=== PATIENT | male | born 1960 | race Caucasian/White ===

== ENCOUNTER 2017-06-05 13:29 | Outpatient (RCR) | payer MEDICARE, SELFPAY ==
[2017-05-29 01:27] VITALS: BP 102/70; PULSE 101; RESP 18; TEMP 35.8
[2017-06-05 14:38] LABS: Absolute Lymphocyte Count 2.67 X10^3/ul (0.83-4.51); Basophil# 0.02 X10^3/uL; Basophil% 0.2 % (0-1); Eosinophil# 0.63 X10^3/uL; Eosinophils% 5.3 % (0-5); Hematocrit 27.7 % (40-54); Lymphocyte # 2.67 X10^3/ul (4.0); Lymphocyte % 22.6 % (19-41); Mean Corp Hgb Conc 32.5 g/gl (32-36); Mean Corpuscular Hgb 25.9 pg (27.0-32.0); Mean Corpuscular Volume 79.6 fL (80-94); Mean Platelet Vol. 8.7 fl (6.2-12.0); Monocyte# 1.45 X10^3/uL; Monocyte% 12.3 % (0-10); Neutrophil # 6.97 X10^3/uL (2.7-7.7); Neutrophil % 59.2 % (47-70); Platelet Count 559 K/mm3 (150-450); RBC Distribution Width CV 17.9 % (11.6-14.6); RBC Distribution Width SD 50.2 fl (35.1-43.9); Red Blood Count 3.48 M/mm3 (4.6-6.2); White Blood Count 11.8 K/mm3 (4.4-11.0)
[2017-06-05 14:39] LABS: POSITIVE COUNT NO; POSITIVE DIFFERENTIAL NO; POSITIVE MORPHOLOGY NO
[2017-06-05 14:48] LABS: ALB/GLOB Ratio 0.4 RATIO (0.9-2.4); AST(SGOT) 69 U/L (15-37); Alanine Aminotransfer ALT/SGPT 79 U/L (12-78); Albumin, Serum 1.9 g/dL (3.4-5.0); Alkaline Phosphatase 149 U/L (45-117); Anion Gap 6 (5-15); BUN 14 mg/dL (7-18); BUN/Creat Ratio 21.9 RATIO (10-20); Calcium,Total 8.5 mg/dL (8.5-10.1); Chloride 108 mmol/L (98-107); Creatinine, Serum 0.64 mg/dL (0.70-1.30); EST Glomerular Filtration Rate 137 mL/min (>60); Est Glom Filt Rate - Afr Amer 166 mL/min (>60); Globulin 5.4 g/dL (2.2-4.2); Glucose 101 mg/dL (70-110); Potassium 3.8 mmol/L (3.5-5.1); Protein, Total 7.3 g/dL (6.4-8.2); Sodium Level 140 mmol/L (136-145)
[2017-06-05 14:49] LABS: Vancomycin, Trough Level 8.5 ug/mL (5.0-15.0)
--- NOTE | 2017-06-07 11:57 | WC ---
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 Currently on I.V. ATB's daily for 6 weeks. Being seen by [facility] ([facility]) daily for wound care. 12:00 Contacted today regarding starting HBO Therapy. Mr. Ruffin mentions having several other appointments prior to considering starting HBO Therapy. [facility]20[facility]17. This speech writer did mention his previous experience when HBO was held-off...his condition deteriorated.. At this time he wishes to hold-off. [facility] called (Amanda) regarding his care. Patient mentioned to them that [facility] (H[facility] Dys[facility]ulation(?)) once his antibiotic therapy is completed. Dr. Almeida and Molded Goods Operator made aware. If HBO therapy is utilized, Pre-Authorization may have to be reapplied for, or dates will require adjusting
== END 2017-06-28 23:59 ==
LOC: WC 13:29
PROVIDERS: Family Provider Family Medicine; PCP Family Medicine; Visit Provider Surgery
DX: M86.68 Other chronic osteomyelitis, other site (principal); M00.9 Pyogenic arthritis, unspecified
CPT/HCPCS: 80053; 80202; 85025

== ENCOUNTER → 2017-06-22 11:50 | Outpatient (CLI) | payer MEDICARE, SELFPAY ==
[2017-06-22 12:57] LABS: Creatinine, Serum 0.72 mg/dL (0.70-1.30); EST Glomerular Filtration Rate 120 mL/min (>60); Est Glom Filt Rate - Afr Amer 145 mL/min (>60)
== END ==
PROVIDERS: Family Provider Family Medicine; PCP Family Medicine
DX: Z79.2 Long term (current) use of antibiotics (principal)
CPT/HCPCS: 80202; 82565

== ENCOUNTER → 2017-06-26 12:16 | Outpatient (CLI) | payer MEDICARE, SELFPAY ==
[2017-06-26 13:40] LABS: Absolute Lymphocyte Count 2.67 X10^3/ul (0.83-4.51); Absolute Neutrophil Count 8.6 X10^3/uL (2.0-7.7); Basophil# 0.04 X10^3/uL; Basophil% 0.3 % (0-1); Eosinophils% 3.8 % (0-5); Hematocrit 30.7 % (40-54); Hemoglobin 9.8 g/dl (13.0-16.5); Lymphocyte # 2.67 X10^3/ul (4.0); Mean Corp Hgb Conc 31.9 g/gl (32-36); Mean Corpuscular Volume 75.2 fL (80-94); Mean Platelet Vol. 9.2 fl (6.2-12.0); Monocyte# 1.41 X10^3/uL; Monocyte% 10.6 % (0-10); Neutrophil # 8.63 X10^3/uL (2.7-7.7); Neutrophil % 64.8 % (47-70); POSITIVE COUNT NO; POSITIVE DIFFERENTIAL NO; POSITIVE MORPHOLOGY NO; Platelet Count 711 K/mm3 (150-450); RBC Distribution Width CV 17.6 % (11.6-14.6); RBC Distribution Width SD 46.5 fl (35.1-43.9); Red Blood Count 4.08 M/mm3 (4.6-6.2); White Blood Count 13.3 K/mm3 (4.4-11.0)
[2017-06-26 13:53] LABS: Vancomycin, Trough Level 11.3 ug/mL (5.0-15.0)
[2017-06-26 13:55] LABS: ALB/GLOB Ratio 0.3 RATIO (0.9-2.4); AST(SGOT) 32 U/L (15-37); Alanine Aminotransfer ALT/SGPT 56 U/L (16-61); Albumin, Serum 1.9 g/dL (3.2-5.0); Alkaline Phosphatase 175 U/L (45-117); Anion Gap 6 (5-15); BUN 11 mg/dL (7-18); BUN/Creat Ratio 16.2 RATIO (10-20); Calcium,Total 8.8 mg/dL (8.5-10.1); Chloride 107 mmol/L (98-107); Creatinine, Serum 0.68 mg/dL (0.70-1.30); EST Glomerular Filtration Rate 128 mL/min (>60); Est Glom Filt Rate - Afr Amer 155 mL/min (>60); Globulin 5.8 g/dL (2.2-4.2); Glucose 104 mg/dL (70-110); Potassium 4.3 mmol/L (3.5-5.1); Protein, Total 7.7 g/dL (6.4-8.2); Sodium Level 139 mmol/L (136-145)
== END ==
PROVIDERS: Visit Provider Surgery
DX: M00.9 Pyogenic arthritis, unspecified (principal); M86.60 Other chronic osteomyelitis, unspecified site; L89.94 Pressure ulcer of unspecified site, stage 4; A41.51 Sepsis due to Escherichia coli [E. coli]
CPT/HCPCS: 80053; 80202; 85025

== ENCOUNTER 2017-07-03 08:08 | Outpatient (RCR) | payer MEDICARE, SELFPAY ==
[2017-05-29 01:27] VITALS: BP 102/70
[2017-06-29 00:49] VITALS: PULSE 101; RESP 18; TEMP 35.8
[2017-07-03 08:12] VITALS: BP 100/74; PULSE 107; RESP 20; TEMP 36.2
--- NOTE | 2017-07-07 20:28 | PN.PCM_ITS ---
Type of Wound Date of Service: 07/03/17 Chief Complaint: Recurrent bilateral ischial pressure sores, Stage IV, with osteomyelitis and sacral pressure sore, Stage IV, and new onset left medial ankle ulcer. History of Wound: Surgery 03/10/17 - 1. Excision right ischial pressure sore, Stage IV, with partial ostectomy for osteomyelitis. 2. Excision left ischial pressure sore, Stage IV, with partial ostectomy for osteomyelitis. Wound care - Dakin's. Operative culture - Soft tissue left ischium - MRSA, Enterococcus faecalis, Corynebacterium amycolatum, Pseudomonas aeroginosa, and Anaerobic cocci. Fungal culture showed Joleen parapsilosis. Soft tissue right ischium - MRSA, Enterococcus faecalis, Corynebacterium striatum, Pseudomonas aeroginosa , Anaerobic cocci. Bone left ischium - MRSA, Enterococcus faecalis, Pseudomonas aeroginosa. Bone right ischium - negative. He was treated with Vancomycin, Zosyn, and Diflucan. He has since finished them. Pathology - positive for bilateral ischial osteomyelitis. Prealbumin from 05/19/17 was 8.7. Encourage nutritional supplementation with protein to help the healing process. He was recently hospitalized in April for sepsis. Blood culture showed E. coli. Based on his previous operative cultures, he was placed on Cefepime, Vancomycin, and Flagyl. CT Pelvis on 05/18/17 showed suprapubic bladder catheter noted and eft-sided colostomy and extensive soft tissue defect of the posterior pelvic region with there appearing to be exposed bone and sclerotic changes of the posterior right ischium which may represent chronic osteomyelitis and 2.5 cm structure anterior to the right femoral neck compatible with small abscess which is new in the interval and subcutaneous stranding with skin thickening lateral to the right hip area consistent with cellulitis. There is no soft tissue gas. Today he denies any fever. His appetite is ok. He also has a new onset left medial ankle ulcer. Progress of Wound: Slightly improved. - Physical Exam Vital Signs Temp Pulse Resp BP 97.1 F L 107 H 20 H 100/74 07/03/17 08:12 07/03/17 08:12 07/03/17 08:12 07/03/17 08:12 Debridement Note Post-Debridement Measurements/Treatment WC - Nurse 2 - General Ulcer CM Notes Start: 07/03/17 08:12 Freq: Status: Active Protocol: Activity Type Activity Date Activity User E-Sign Co-Sign Detail Recorded Client Recorded Date Recorded By Document 07/03/17 09:00 USMAN [id number] 07/03/17 09:10 USMAN 07/03/17 09:00 Wound Center Nurse 2 #14 left medial ankle -Time 09:01 -Correct Patient Yes -Correct Side, Site, Position Yes -Correct Procedure Yes -Procedure Performed Yes -Type of Procedure Debridement -Clinical Debridement Subcutaneous -Post Debridement Size (cm) - Length 2.8 -Post Debridement Size (cm) - Width 2.8 -Post Debridement Size (cm) - Depth 0.2 -Total Square Cm 7.84 -Wound/Ulcer Outcome Not Healed -Ulcer Cleansing Rinsed/ Irrigated with Saline -Foul Odor after Cleansing No -Bioengineered Tissue No -Cetacaine [place] No -Bleeding Controlled with Pressure -Treatment Response Procedure Tolerated Well #13 Sacral -Time 09:01 -Correct Patient Yes -Correct Side, Site, Position Yes -Correct Procedure Yes -Procedure Performed Yes -Type of Procedure Debridement -Clinical Debridement Muscle -Post Debridement Size (cm) - Length 3.8 -Post Debridement Size (cm) - Width 5 -Post Debridement Size (cm) - Depth 1.2 -Total Square Cm 19.0 -Wound/Ulcer Outcome Not Healed -Foul Odor after Cleansing No -Bioengineered Tissue No -Cetacaine [place] No -Bleeding Controlled with Pressure -Treatment Response Procedure Tolerated Well #12 L Buttocks -Time 09:02 -Correct Patient Yes -Correct Side, Site, Position Yes -Correct Procedure Yes -Procedure Performed Yes -Type of Procedure Debridement -Clinical Debridement Muscle -Post Debridement Size (cm) - Length 6.3 -Post Debridement Size (cm) - Width 4.9 -Post Debridement Size (cm) - Depth 1.0 -Total Square Cm 30.87 -Wound/Ulcer Outcome Not Healed -Ulcer Cleansing Rinsed/ Irrigated with Saline -Foul Odor after Cleansing No -Bioengineered Tissue No -Cetacaine [place] No -Bleeding Controlled with Pressure -Treatment Response Procedure Tolerated Well #11 R Buttocks -Time 09:02 -Correct Patient Yes -Correct Side, Site, Position Yes -Correct Procedure Yes -Procedure Performed Yes -Type of Procedure Debridement -Clinical Debridement Muscle -Post Debridement Size (cm) - Length 9 -Post Debridement Size (cm) - Width 16.1 -Post Debridement Size (cm) - Depth 0.8 -Total Square Cm 144.9 -Wound/Ulcer Outcome Not Healed -Ulcer Cleansing Rinsed/ Irrigated with Saline -Foul Odor after Cleansing No -Bioengineered Tissue No -Cetacaine [place] No -Bleeding Controlled with Pressure -Treatment Response Procedure Tolerated Well Pain Scale: 0-10 Numeric Is Patient Pain Free? Yes Wound debrided: #11 Right ischial area. Laterality: Right Wound Grade/Stage: IV. Type of Debridement: Excisional debridement Anesthesia Used: 4% Lidocaine Solution Depth: Down to and including healthy tissue, in the subcutaneous layer, to muscle - bone is exposed but not debrided. Percentage of wound debrided: 100 Instrument Used: 7mm curette Tissue Removed: subcutaneous tissue and muscle. Severity: Fat Layer Exposed - muscle is exposed. bone is exposed but not debrided. Amount of bleeding with debridement: Mild Bleeding Controlled with: Pressure Patient tolerated procedure well - Additional Wound Wound debrided: #12 Left ischial area. Laterality: Left Wound Grade/Stage: IV. Type of Debridement: Excisional debridement Anesthesia Used: 4% Lidocaine Solution Depth: Down to and including healthy tissue, in the subcutaneous layer, to muscle - bone is exposed but not debrided. Percentage of wound debrided: 100 Instrument Used: 7mm curette Tissue Removed: subcutaneous tissue and muscle. Severity: Fat Layer Exposed - muscle is exposed. bone is exposed but not debrided. Amount of bleeding with debridement: Mild Bleeding Controlled with: Pressure Patient tolerated procedure: Patient tolerated procedure well - Additional Wound Wound debrided: #13 Sacral area. Laterality: Not Applicable Wound Grade/Stage: IV. Type of Debridement: Excisional debridement Anesthesia Used: 4% Lidocaine Solution Depth: Down to and including healthy tissue, in the subcutaneous layer, to muscle - bone is exposed but not debrided. Percentage of wound debrided: 100 Instrument Used: 7mm curette Tissue Removed: subcutaneous tissue and muscle. Severity: Fat Layer Exposed - muscle is exposed. bone is exposed but not debrided. Amount of bleeding with debridement: Mild Bleeding Controlled with: Pressure Patient tolerated procedure: Patient tolerated procedure well - Additional Wound Wound debrided: #14 Left medial ankle area. Laterality: Left Wound Grade/Stage: 2. Type of Debridement: Excisional debridement Anesthesia Used: 4% Lidocaine Solution Depth: Down to and including healthy tissue, in the subcutaneous layer Percentage of wound debrided: 100 Instrument Used: 5mm curette Tissue Removed: subcutaneous tissue. Severity: Fat Layer Exposed Amount of bleeding with debridement: Mild Bleeding Controlled with: Pressure Patient tolerated procedure: Patient tolerated procedure well Assessment/Plan Assessment: 1. Recurrent right ischial pressure sore, Stage IV, with extension and involvement of right femoral head. 2. Recurrent left ischial pressure sore , Stage IV. 3. Recurrent sacral pressure sore, Stage IV. 4. Osteomyelitis. 5. MRSA. 6. History of posterior dislocation right hip. 7. Paraplegia. 8. Left medial ankle ulcer. Plan: Continue Dakin's dressing changes to the ulcers. Continue IV Cefepime and Vancomycin and PO Flagyl. Prealbumin from 05/19/17 was 8.7. Encourage nutritional supplementation with protein to help the healing process. He understands that he would be best served at a tertiary center for further definitive surgery. With the large size of his multiple pressure sores and with the need to fill the space left behind from the removal of the femoral head , his only option would be a total thigh flap which would provide enough soft tissue but it necessitates an amputation. Patient states he would rather than have an amputation.. Discussed with him the benefit from HBO treatments for his chronic refractory osteomyelitis. Insurance has approved it. He states he wants to proceed, and that he can arrange transportation. Followup 4 weeks.
== END 2017-07-26 23:59 ==
LOC: WC 08:08
PROVIDERS: Family Provider Family Medicine; PCP Family Medicine; Visit Provider Surgery
DX: L89.154 Pressure ulcer of sacral region, stage 4 (principal); L89.224 Pressure ulcer of left hip, stage 4; L89.214 Pressure ulcer of right hip, stage 4; Z86.14 Personal history of Methicillin resistant Staphylococcus aureus infection; L97.322 Non-pressure chronic ulcer of left ankle with fat layer exposed; G82.20 Paraplegia, unspecified
CPT/HCPCS: 11042; 11043; 11046

== ENCOUNTER → 2017-07-03 14:37 | Outpatient (CLI) | payer MEDICARE, SELFPAY ==
[2017-07-03 08:12] VITALS: BP 100/74
[2017-07-03 16:19] LABS: Absolute Neutrophil Count 9.8 X10^3/uL (2.0-7.7); Basophil# 0.03 X10^3/uL; Basophil% 0.2 % (0-1); Eosinophil# 0.37 X10^3/uL; Eosinophils% 2.5 % (0-5); Hematocrit 34.9 % (40-54); Hemoglobin 10.7 g/dl (13.0-16.5); Lymphocyte % 21.6 % (19-41); Mean Corp Hgb Conc 30.7 g/gl (32-36); Mean Corpuscular Hgb 23.1 pg (27.0-32.0); Mean Corpuscular Volume 75.4 fL (80-94); Monocyte# 1.33 X10^3/uL; Neutrophil # 9.81 X10^3/uL (2.7-7.7); Neutrophil % 66.2 % (47-70); POSITIVE COUNT NO; POSITIVE DIFFERENTIAL NO; POSITIVE MORPHOLOGY NO; Platelet Count 599 K/mm3 (150-450); RBC Distribution Width CV 17.8 % (11.6-14.6); RBC Distribution Width SD 48.8 fl (35.1-43.9); Red Blood Count 4.63 M/mm3 (4.6-6.2); White Blood Count 14.8 K/mm3 (4.4-11.0)
[2017-07-03 16:22] LABS: Vancomycin, Trough Level 13.3 ug/mL (5.0-15.0)
[2017-07-03 16:25] LABS: ALB/GLOB Ratio 0.4 RATIO (0.9-2.4); AST(SGOT) 69 U/L (15-37); Alanine Aminotransfer ALT/SGPT 87 U/L (16-61); Albumin, Serum 2.2 g/dL (3.2-5.0); Alkaline Phosphatase 181 U/L (45-117); Anion Gap 8 (5-15); BUN 15 mg/dL (7-18); BUN/Creat Ratio 19.7 RATIO (10-20); Calcium,Total 8.7 mg/dL (8.5-10.1); Chloride 105 mmol/L (98-107); Creatinine, Serum 0.76 mg/dL (0.70-1.30); EST Glomerular Filtration Rate 113 mL/min (>60); Est Glom Filt Rate - Afr Amer 136 mL/min (>60); Glucose 102 mg/dL (74-106); Potassium 4.2 mmol/L (3.5-5.1); Protein, Total 8.2 g/dL (6.4-8.2); Sodium Level 138 mmol/L (136-145)
== END ==
PROVIDERS: Family Provider Family Medicine; PCP Family Medicine; Visit Provider Surgery
DX: M00.9 Pyogenic arthritis, unspecified (principal); M86.60 Other chronic osteomyelitis, unspecified site; L89.94 Pressure ulcer of unspecified site, stage 4; A41.51 Sepsis due to Escherichia coli [E. coli]
CPT/HCPCS: 80053; 80202; 85025

== ENCOUNTER → 2017-07-07 14:19 | Outpatient (CLI) | payer MEDICARE, SELFPAY ==
[2017-07-03 08:12] VITALS: BP 100/74
[2017-07-07 15:09] LABS: Vancomycin, Trough Level 16.2 ug/mL (5.0-15.0)
== END ==
PROVIDERS: Family Provider Family Medicine; PCP Family Medicine
DX: M00.9 Pyogenic arthritis, unspecified (principal); M86.8X8 Other osteomyelitis, other site; L89.94 Pressure ulcer of unspecified site, stage 4; A41.51 Sepsis due to Escherichia coli [E. coli]
CPT/HCPCS: 80202

== ENCOUNTER 2017-07-10 22:54 | Outpatient (RCR) | payer MEDICARE, SELFPAY ==
[2017-07-10 23:13] LABS: Absolute Lymphocyte Count 2.82 X10^3/ul (0.83-4.51); Absolute Neutrophil Count 7.6 X10^3/uL (2.0-7.7); Basophil# 0.03 X10^3/uL; Basophil% 0.3 % (0-1); Eosinophil# 0.46 X10^3/uL; Eosinophils% 3.9 % (0-5); Hemoglobin 10.3 g/dl (13.0-16.5); Lymphocyte # 2.82 X10^3/ul (4.0); Lymphocyte % 23.9 % (19-41); Mean Corp Hgb Conc 30.3 g/gl (32-36); Mean Corpuscular Hgb 22.9 pg (27.0-32.0); Mean Corpuscular Volume 75.6 fL (80-94); Mean Platelet Vol. 8.9 fl (6.2-12.0); Monocyte# 0.86 X10^3/uL; Monocyte% 7.3 % (0-10); Neutrophil # 7.57 X10^3/uL (2.7-7.7); Neutrophil % 64.2 % (47-70); Platelet Count 598 K/mm3 (150-450); RBC Distribution Width CV 17.9 % (11.6-14.6); White Blood Count 11.8 K/mm3 (4.4-11.0)
[2017-07-10 23:22] LABS: POSITIVE COUNT NO; POSITIVE DIFFERENTIAL NO; POSITIVE MORPHOLOGY NO
== END 2017-07-26 23:59 ==
LOC: LABSPEC 22:54
PROVIDERS: Family Provider Family Medicine; PCP Family Medicine
DX: M00.851 Arthritis due to other bacteria, right hip (principal); M86.60 Other chronic osteomyelitis, unspecified site; L89.90 Pressure ulcer of unspecified site, unspecified stage; A41.51 Sepsis due to Escherichia coli [E. coli]
CPT/HCPCS: 85025

== ENCOUNTER → 2017-07-11 12:09 | Outpatient (CLI) | payer MEDICARE, SELFPAY ==
[2017-07-11 13:32] LABS: Vancomycin, Trough Level 15.9 ug/mL (5.0-15.0)
[2017-07-11 13:59] LABS: ALB/GLOB Ratio 0.3 RATIO (0.9-2.4); AST(SGOT) 39 U/L (15-37); Alanine Aminotransfer ALT/SGPT 72 U/L (16-61); Albumin, Serum 1.7 g/dL (3.2-5.0); Alkaline Phosphatase 183 U/L (45-117); Anion Gap 8 (5-15); BUN 13 mg/dL (7-18); BUN/Creat Ratio 20.5 RATIO (10-20); Calcium,Total 8.5 mg/dL (8.5-10.1); Chloride 105 mmol/L (98-107); Creatinine, Serum 0.64 mg/dL (0.70-1.30); EST Glomerular Filtration Rate 139 mL/min (>60); Est Glom Filt Rate - Afr Amer 168 mL/min (>60); Globulin 5.7 g/dL (2.2-4.2); Glucose 85 mg/dL (74-106); Potassium 4.4 mmol/L (3.5-5.1); Protein, Total 7.4 g/dL (6.4-8.2); Sodium Level 135 mmol/L (136-145)
== END ==
PROVIDERS: Family Provider Family Medicine; PCP Family Medicine
DX: M00.9 Pyogenic arthritis, unspecified (principal); M86.60 Other chronic osteomyelitis, unspecified site; L89.94 Pressure ulcer of unspecified site, stage 4; A41.51 Sepsis due to Escherichia coli [E. coli]
CPT/HCPCS: 80053; 80202

== ENCOUNTER 2019-01-19 17:15 | Inpatient (IN) | payer MEDICARE, SELFPAY ==
[2019-01-19] VITALS (7 sets, daily range): BP systolic 99–140; BP diastolic 69–98; PULSE 101–121; RESP 18–22; TEMP 36.8–38; O2SAT 93–98; BMI 25.2; BMI 23.3
--- NOTE | 2019-01-19 17:24 | RAD_ITS ---
STUDY: X-RAY CHEST REASON FOR EXAM: Male, 58 years old. Weakness TECHNIQUE: Frontal view of the chest was performed COMPARISON: 17 May 2017 FINDINGS: Lungs are clear. There is no pneumothorax, pulmonary edema, pleural effusions or cardiomegaly. Osseous structures are intact. There is no gas under the diaphragms. [ ] RAD/Chest 1 View (Portable) IMPRESSION: 1. No acute cardiorespiratory disease. [ ] Electronically Signed: Marly Phelan, at 18:06 EDT Tel , Service support ,
--- NOTE | 2019-01-19 17:24 | EKG12_ITS ---
Test Reason : WEAKNESS Blood Pressure : / mmHG Vent. Rate : 121 BPM Atrial Rate : 121 BPM P-R Int : 164 ms QRS Dur : 090 ms QT Int : 300 ms P-R-T Axes : 055 077 054 degrees QTc Int : 426 ms Sinus tachycardia T wave abnormality, consider inferolateral ischemia Abnormal ECG Confirmed by JUAN MARR, BRUCE ([id number]), staff editor AURORA FOURNIER ([id number]) on 01/21/2019 11:34:16 AM Referred By: PRINCESS Confirmed By:BRUCE MARTINEZ MD
--- NOTE | 2019-01-19 17:26 | ED.DCSUM_ITS ---
History of Present Illness Chief Complaint: Weakness Informant: Patient, Family, Kitchen Helper Onset: Yesterday Context: Gradual Onset Timing: Continuous Quality: malaise Location: generalized Current Severity: Severe Maximum Severity: Severe Associated Symptoms: subj fever Narrative: Patient is a bedridden paraplegic with an indwelling Lima catheter. Urine has looked dark today, he has had poor oral intake all day today, but he was drinking overnight. He is felt very malaised and flushed with subjective fevers since yesterday. Home health nurse was called to evaluate him, and since he was tachycardic she recommended that they call 911 to bring him to the ER. He has nausea and malaise and no other focal symptoms. Patient states he had a spinal injury and because of transverse myelitis, he is a paraplegic for life. He states his sensory level is more below his bellybutton. He denies any cough or shortness of breath, no headache or loss of consciousness, no chest or abdominal pain. Significant other helps to provide history but states I have not been home all weekend. She does state that at the [place] for routine visit this past week, he incidentally had high red and white blood count. - Past Medical History (1) Benign essential hypertension Status: Chronic (2) Neurogenic bladder Status: Chronic (3) Paraplegia Status: Chronic (4) Transverse myelitis Status: Chronic Past Medical History - Allergies and Home Meds Allergies/Adverse Reactions: Allergies No Known Allergies Allergy (Verified 01/19/19 18:23) Primary Care Physician: [facility] [Primary Care Provider] - Surgical History: - - Appendectomy, colostomy, right heel debridement, skin flap and skin graft to buttock, most recent 02/2017 Excision right ischial pressure sore, Stage IV, with partial ostectomy for osteomyelitis, Excision left ischial pressure sore, Stage IV, with partial ostectomy for osteomyelitis. Lives: Spouse/ Significant Other Smoking Status: Current every day smoker Drugs: None - Family History Paternal Family History: Reports: No pertinent history Maternal Family History: Reports: No pertinent history Review of Systems General: Reports: Fever, Malaise, Subjective. Denies: Chills, Sweats Eyes: Denies: Visual changes - bilaterally, Diplopia ENT: Denies: Bilateral ear pain, Rhinorrhea, Sore throat Cardiovascular: Denies: Chest pain, Palpitations Respiratory: Denies: Dyspnea, Cough, Dyspnea on exertion Gastrointestinal: Reports: Nausea. Denies: Abdominal pain, Vomiting, Diarrhea, Melena, Hematochezia Genitourinary: Reports: - - Dark urine output in indwelling Lima. Denies: Dysuria, Hematuria, Frequency Musculoskeletal: Denies: Neck pain, Back pain, Extremity Pain Skin: Denies: Rash, Wounds Neurological: Reports: Weakness - Bilateral lower extremities, chronic paraplegia, Numbness - Bilateral lower extremities, chronic. Denies: Headache Physical Exam Vital Signs/Narrative: Vital Signs Temp Pulse Resp BP Pulse Ox 01/19/19 17:16 100.4 F H 121 H 20 H 131/98 H 96 Inital Vital Signs reviewed: Yes General: Well nourished, Well developed, No Acute Distress - Appears malaised but alert Head: Normocephalic, Atraumatic Eyes: Perrl, EOMI ENT: No rhinorrhea, Dry mucous membranes. Negative for: Sinus tenderness Neck: Supple - Full range of motion, no meningismus, Nontender Cardiovascular: Regular rate, Regular rhythm, No murmurs, Tachycardia Respiratory: No distress, CTA bilaterally, Chest nontender Abdomen: Soft, Nontender, Nondistended, Normal bowel sounds : - - Cloudy yellow urine in Lima. Well-healed sacral decubitus ulcer, there is 1 very small part of it that appears to be ulcerated and there is no sign of any infection. There is a dressing on it dated 01/11. Back: Nontender, Normal Inspection Extremities: Edema - 1+ bilateral lower extremity, symmetric, no signs of cellulitis or ulcer, - - Well-healed scarred old ulcerations on his heels without any sign of any acute infection or ulceration. Skin: Normal color, No rash, No Trauma Neurological: Alert, Oriented x3, Cranial nerves II-XII grossly intact, Weakness - Flaccid paraplegia and decreased sensation in both lower extremities Psychological: Normal affect, Normal Mood Diagnostic/Tx/Re-eval Impressions Chest X-Ray 01/19/19 17:24 IMPRESSION: 1. No acute cardiorespiratory disease. [ ] Electronically Signed: Marly Phelan, at 18:06 EDT Tel , Service support , 01/19/19 17:24 Chest 1 View (Portable) [RAD] Stat Laboratory Results 01/19/19 01/19/19 01/19/19 17:50 17:50 17:50 WBC 25.8 H RBC 6.20 Hgb 17.9 H Hct 53.5 MCV 86.3 MCH 28.9 MCHC 33.5 RDW Std Deviation 51.5 H RDW Coeff of Bhanu 17.9 H Plt Count 315 MPV 9.4 Immature Gran % (Auto) 0.500 Neut % (Auto) 87.3 H Lymph % (Auto) 5.5 L Power % (Auto) 6.4 Eos % (Auto) 0.0 Baso % (Auto) 0.3 Absolute Neuts (auto) 22.5 H Absolute Lymphs (auto) 1.43 Nucleated RBC % 0 Differential Comment SCANNED Diff Path Review May foll Platelet Estimate ADEQUATE RBC Morphology NORM C+C PT 14.7 INR 1.2 APTT 49.0 H Sodium 139 Potassium 3.9 Chloride 107 Carbon Dioxide 24.0 Anion Gap 8 BUN 14 Creatinine 0.92 Estim Creat Clear Calc 85.71 Est GFR (MDRD) Af Amer 109 Est GFR (MDRD) Non-Af 90 BUN/Creatinine Ratio 15.2 Glucose 117 H Lactic Acid Calcium 9.1 Total Bilirubin 0.60 AST 18 ALT 28 Alkaline Phosphatase 189 H Total Protein 8.3 H Albumin 3.1 L Globulin 5.2 H Albumin/Globulin Ratio 0.6 L Urine Color Urine Clarity Urine pH Ur Specific Hyden Urine Protein Urine Glucose (UA) Urine Ketones Urine Occult Blood Urine Nitrite Urine Bilirubin Urine Urobilinogen Ur Leukocyte Esterase Urine RBC Urine WBC Ur Squamous Epith Cells Calcium Oxalate Crystal Triple Phos Crystals Amorphous Sediment Urine Bacteria Urine Mucus 01/19/19 01/19/19 17:50 18:00 WBC RBC Hgb Hct MCV MCH MCHC RDW Std Deviation RDW Coeff of Bhanu Plt Count MPV Immature Gran % (Auto) Neut % (Auto) Lymph % (Auto) Power % (Auto) Eos % (Auto) Baso % (Auto) Absolute Neuts (auto) Absolute Lymphs (auto) Nucleated RBC % Differential Comment Diff Path Review Platelet Estimate RBC Morphology PT INR APTT Sodium Potassium Chloride Carbon Dioxide Anion Gap BUN Creatinine Estim Creat Clear Calc Est GFR (MDRD) Af Amer Est GFR (MDRD) Non-Af BUN/Creatinine Ratio Glucose Lactic Acid 0.9 Calcium Total Bilirubin AST ALT Alkaline Phosphatase Total Protein Albumin Globulin Albumin/Globulin Ratio Urine Color Yellow Urine Clarity Cloudy Urine pH 9.0 Ur Specific [place]den 1.015 Urine Protein 100 H Urine Glucose (UA) Normal Urine Ketones 5 H Urine Occult Blood 150 H Urine Nitrite Positive H Urine Bilirubin Negative Urine Urobilinogen Normal Ur Leukocyte Esterase 500 H Urine RBC 10-25 SEEN Urine WBC 25-50 SEEN Ur Squamous Epith Cells 5-10 SEEN Calcium Oxalate Crystal RARE Triple Phos Crystals 1+ Amorphous Sediment 1+ PHOS Urine Bacteria 1+ Urine Mucus 0 SEEN - Rhythm Strip Rhythm Strip: Sinus Tach Rate: 120 Ectopy: None - EKG Initial EKG Interpretation: No Acute Injury Pattern, Sinus Tachycardia, Non-Specific ST Changes - diffusely - Medical Decision Making Patient was bolused with IV fluids, blood and urine cultures were sent, he seems to have a urinary tract infection a significant leukocytosis and luckily his lactate is within normal limits. He is septic from urinary tract infection, Rocephin is started. Plan is for admission to the hospital. His heart rate has improved with IV fluids. Patient is alert and states he is relatively comfortable. ED Disposition - Plan for ED Patient: Disposition: Acute Care Hospital [facility] Diagnosis: Sepsis due to urinary tract infection, Paraplegia [facility] [Primary Care Provider] -
[2019-01-19] MEDS: 0.9% Normal Saline 1,000 ML 999 ML IV (18:12)
[2019-01-19] MEDS: Acetaminophen 500 MG Tablet 1000 MG PO (18:16)
[2019-01-19 18:17] LABS: Mucous, Urine 0 SEEN /hpf (<or=2+)
[2019-01-19 18:22] LABS: Absolute Lymphocyte Count 1.43 X10^3/uL (0.83-4.51); Absolute Neutrophil Count 22.5 X10^3/uL (2.0-7.7); Basophil# 0.09 X10^3/uL; Basophil% 0.3 % (0-1); Eosinophil# 0.01 X10^3/uL; Hematocrit 53.5 % (40-54); Hemoglobin 17.9 g/dL (13.0-16.5); Lymphocyte # 1.43 X10^3/ul (4.0); Lymphocyte % 5.5 % (19-41); Mean Corp Hgb Conc 33.5 g/dL (32-36); Mean Corpuscular Hgb 28.9 pg (27.0-32.0); Mean Corpuscular Volume 86.3 fL (80-94); Mean Platelet Vol. 9.4 fl (6.2-12.0); Monocyte# 1.66 X10^3/uL; Monocyte% 6.4 % (0-10); NRBC Flagged by Analyzer 0 % (0-5); Neutrophil % 87.3 % (47-70); POSITIVE DIFFERENTIAL YES; Platelet Count 315 K/mm3 (150-450); RBC Distribution Width CV 17.9 % (11.6-14.6); RBC Distribution Width SD 51.5 fl (35.1-43.9); White Blood Count 25.8 K/mm3 (4.4-11.0)
[2019-01-19 18:32] LABS: Color, Urine Yellow (Yellow); Glucose, Dipstick Normal (Normal); Ketone-Dipstick 5 mg/dl (Negative); Leukocyte Esterase-Dipstick 500 /ul (Negative); Nitrite-Dipstick Positive (Negative); Occult Blood-Urine 150 /ul (Negative); Protein-Dipstick 100 mg/dl (Negative); Specific Gravity, Urine 1.015 (1.002-1.030); Urine Bilirubin Dipstick Negative (Negative); Urine Clarity Cloudy (Clear); Urine Urobilinogen Normal (Normal)
[2019-01-19 18:38] LABS: Differential Indicated SCAN CRITERIA MET
[2019-01-19 18:39] LABS: ALB/GLOB Ratio 0.6 RATIO (0.9-2.4); AST(SGOT) 18 U/L (15-37); Alanine Aminotransfer ALT/SGPT 28 U/L (16-61); Albumin, Serum 3.1 g/dL (3.2-5.0); Alkaline Phosphatase 189 U/L (45-117); Anion Gap 8 (5-15); BUN 14 mg/dL (7-18); BUN/Creat Ratio 15.2 RATIO (10-20); Calcium,Total 9.1 mg/dL (8.5-10.1); Chloride 107 mmol/L (98-107); Creatinine, Serum 0.92 mg/dL (0.70-1.30); EST Glomerular Filtration Rate 90 mL/min (>60); Est Glom Filt Rate - Afr Amer 109 mL/min (>60); Estimated Creatinine Clearance 85.71 ml/min; Globulin 5.2 g/dL (2.2-4.2); Glucose 117 mg/dL (74-106); Potassium 3.9 mmol/L (3.5-5.1); Protein, Total 8.3 g/dL (6.4-8.2); Sodium Level 139 mmol/L (136-145)
[2019-01-19 18:45] LABS: International Normalized Ratio 1.2; Prothrombin Time (Protime)PT. 14.7 SECONDS (11.7-14.9)
[2019-01-19 18:56] LABS: Red Blood Cells-Urine 10-25 SEEN /hpf (0-5); Squamous Epithelial Cells - UA 5-10 SEEN /hpf (0-5); White Blood Cells 25-50 SEEN /hpf (0-5)
[2019-01-19 18:57] LABS: Amorphous Sediment 1+ PHOS; Bacteria 1+ /hpf (None Seen); Calcium Oxalate Crystals Ur RARE /hpf (<or=2+); Triple Phosphate Crystals Ur 1+ /hpf (<or=1+)
[2019-01-19 19:02] LABS: Lactic Acid 0.9 mmol/L (0.4-2.0)
[2019-01-19] MEDS: Ceftriaxone 1 GM/50 ML BAG IV (19:21)
[2019-01-19 19:22] LABS: Differential Comment SCANNED; Platelet Estimate ADEQUATE (ADEQ); Red Cell Morphology NORM C+C NORMAL (NORM C&C)
--- NOTE | 2019-01-19 19:58 | HP.PCM_ITS ---
Problem List (1) Sepsis due to urinary tract infection Status: Acute (2) Paraplegia Status: Chronic (3) Neurogenic bladder Status: Chronic (4) Transverse myelitis Status: Chronic (5) Pressure ulcer of ischium, stage 2 Status: Chronic Qualifiers: Laterality: right Qualified Code(s): L89.312 - Pressure ulcer of right buttock, stage 2 (6) Sacral ulcer Status: Chronic (7) Pressure ulcer of right hip, stage 1 Status: Chronic History of Present Illness Date of Admission: 01/19/19 Chief Complaint: malaise The patient is a 58 year old M with a significant history of paraplegia from T4 down was secondary to transverse myelitis; neurogenic bladder with indwelling catheter; colostomy secondary to paraplegia; pressure ulcers on the sacrum and heel who presented to the emergency department with malaise that started a day before his presentation. Associated with his symptoms is subjective fever and chills. The urine in his Lima catheter looked darker. Because home health nurse realized that the patient had a tachycardia patient was brought to emergency department. At the emergency department patient was noted to have objective fever; tachycardia and tachypnea as well as leukocytosis. Blood cultures and urine cultures were drawn and patient was started on ceftriaxone. Past Medical History Past Medical History (Chronic Problems): Chronic Problems Paraplegia (Chronic) Neurogenic bladder (Chronic) Transverse myelitis (Chronic) Pressure ulcer of ischium, stage 2 (Chronic) Pressure ulcer of right hip, stage 1 (Chronic) Sacral ulcer (Chronic) Benign essential hypertension (Chronic) Colostomy in place (Chronic) Allergies No Known Allergies Allergy (Verified 01/19/19 18:23) Home Medications: Ambulatory Orders Medication Instructions Recorded Baclofen [Lioresal] 20 mg PO TID 02/26/13 Multivitamins,Therapeutic 1 tab PO LUNCH 02/26/13 [Multivitamin] Gabapentin [Neurontin] 900 mg PO TID 04/19/13 Ascorbic Acid [Vitamin C] 1,000 mg PO TID 01/19/19 Doxycycline Monohydrate 100 mg PO BID 01/19/19 Nortriptyline HCl [Pamelor] 100 mg PO QHS 01/19/19 Surgical History: - - Appendectomy, colostomy, right heel debridement, skin flap and skin graft to buttock, most recent 02/2017 Excision right ischial pressure sore, Stage IV, with partial ostectomy for osteomyelitis, Excision left ischial pressure sore, Stage IV, with partial ostectomy for osteomyelitis. Psychiatric History: Depression Lives: Spouse/ Significant Other Smoking Status: Current every day smoker Drugs: None - *Family History Paternal History Items: - - Denies any maternal medical history Maternal History Items: Heart Disease - His father had heart attack, Stroke Review of Systems Constitutional: Reports: Chills, Fever, Malaise. Denies: Weight Change HEENT: Denies: Head Aches, Sinus Congestion, Sinus Drainage Cardiovascular: Denies: Chest Pain, Palpitations Respiratory: Denies: Cough, Shortness of breath at rest, Sputum production Gastrointestinal: Denies: Abdominal Pain, Nausea, Vomiting Genitourinary: Reports: - - Chronic Lima catheter Musculoskeletal: Denies: Joint Pain, Joint Tenderness Skin: Reports: Wounds - Bilateral buttocks cheeks. Denies: Rash Neurological: Denies: Numbness, Tingling, Focal weakness Psychiatric: Denies: Anxiety, Depression, Homicidal Ideations, Suicidal Ideations Hematologic/ Lymphatic: Denies: Easy Bruising, Easy Bleeding VTE Information - Inpt Only VTE Present on Admission: No VTE Mechan Device Prophylaxis: None VTE Pharm Prophylaxis ordered?: Yes Patient Problems: Active and Suspected Problems Sepsis due to urinary tract infection (Acute) - Physical Exam General: Alert, Oriented x3, Cooperative HEENT: Atraumatic, PERRLA, EOMI, Normocephalic Neck: Supple, No JVD, Negative Carotid Bruits Lungs: Clear to auscultation, Normal air movement, Tachypneic Cardiovascular: No murmurs, Tachycardic, - - Colostomy in place. Suprapubic catheter in place Abdomen: Bowel Sounds Present, Soft, Non Tender Extremities: No edema, Capillary Refill Less than 3 Seconds Skin: - - Redness on the bottom. Chronic wounds on buttocks x2; one on each side of buttocks cheek. Deformity to buttocks. Musculoskeletal: No Tenderness to Palpation of Joints or Extremities Neurological: Cranial nerves II-XII grossly intact, - - Paraplegia from T4 and down inability to move bilateral lower extremities. Psych/Mental Status: Normal Affect, Appropriate Vital Signs Temp Pulse Resp BP Pulse Ox 98.2 F 114 H 22 H 118/81 H 96 01/19/19 19:20 01/19/19 19:18 01/19/19 19:18 01/19/19 19:18 01/19/19 19:18 Oxygen Delivery Method Room Air Weight: 75.5 kg Body Mass Index (BMI) 25.2 Intake and Output for Last 24 Hours 01/17/19 01/18/19 01/19/19 23:59 23:59 23:59 Intake Total 1000 / 1000 Balance 1000 / 1000 Laboratory Tests Past 24 Hrs 01/19/19 01/19/19 01/19/19 17:50 17:50 17:50 WBC 25.8 H RBC 6.20 Hgb 17.9 H Hct 53.5 MCV 86.3 MCH 28.9 MCHC 33.5 RDW Std Deviation 51.5 H RDW Coeff of Bhanu 17.9 H Plt Count 315 MPV 9.4 Immature Gran % (Auto) 0.500 Neut % (Auto) 87.3 H Lymph % (Auto) 5.5 L [place] % (Auto) 6.4 Eos % (Auto) 0.0 Baso % (Auto) 0.3 Absolute Neuts (auto) 22.5 H Absolute Lymphs (auto) 1.43 Nucleated RBC % 0 Differential Comment SCANNED Diff Path Review May foll Platelet Estimate ADEQUATE RBC Morphology NORM C+C PT 14.7 INR 1.2 APTT 49.0 H Sodium 139 Potassium 3.9 Chloride 107 Carbon Dioxide 24.0 Anion Gap 8 BUN 14 Creatinine 0.92 Estim Creat Clear Calc 85.71 Est GFR (MDRD) Af Amer 109 Est GFR (MDRD) Non-Af 90 BUN/Creatinine Ratio 15.2 Glucose 117 H Lactic Acid Calcium 9.1 Total Bilirubin 0.60 AST 18 ALT 28 Alkaline Phosphatase 189 H Total Protein 8.3 H Albumin 3.1 L Globulin 5.2 H Albumin/Globulin Ratio 0.6 L Urine Color Urine Clarity Urine pH Ur Specific [place] Urine Protein Urine Glucose (UA) Urine Ketones Urine Occult Blood Urine Nitrite Urine Bilirubin Urine Urobilinogen Ur Leukocyte Esterase Urine RBC Urine WBC Ur Squamous Epith Cells Calcium Oxalate Crystal Triple Phos Crystals Amorphous Sediment Urine Bacteria Urine Mucus 01/19/19 01/19/19 17:50 18:00 WBC RBC Hgb Hct MCV MCH MCHC RDW Std Deviation RDW Coeff of Bhanu Plt Count MPV Immature Gran % (Auto) Neut % (Auto) Lymph % (Auto) [place] % (Auto) Eos % (Auto) Baso % (Auto) Absolute Neuts (auto) Absolute Lymphs (auto) Nucleated RBC % Differential Comment Diff Path Review Platelet Estimate RBC Morphology PT INR APTT Sodium Potassium Chloride Carbon Dioxide Anion Gap BUN Creatinine Estim Creat Clear Calc Est GFR (MDRD) Af Amer Est GFR (MDRD) Non-Af BUN/Creatinine Ratio Glucose Lactic Acid 0.9 Calcium Total Bilirubin AST ALT Alkaline Phosphatase Total Protein Albumin Globulin Albumin/Globulin Ratio Urine Color Yellow Urine Clarity Cloudy Urine pH 9.0 Ur Specific [place] 1.015 Urine Protein 100 H Urine Glucose (UA) Normal Urine Ketones 5 H Urine Occult Blood 150 H Urine Nitrite Positive H Urine Bilirubin Negative Urine Urobilinogen Normal Ur Leukocyte Esterase 500 H Urine RBC 10-25 SEEN Urine WBC 25-50 SEEN Ur Squamous Epith Cells 5-10 SEEN Calcium Oxalate Crystal RARE Triple Phos Crystals 1+ Amorphous Sediment 1+ PHOS Urine Bacteria 1+ Urine Mucus 0 SEEN Assessment/Plan All Active Problems Sepsis due to urinary tract infection (Acute) Fever (Acute) Obstruction of Lima catheter (Resolved) Hematuria (Resolved) Continuous chronic alcoholism (Resolved) Right ischial pressure sore, stage 4 (Resolved) Transverse myelitis (Resolved) Ulcer of heel (Resolved) malnutrition, mild (Resolved) osteomyelitis rt heel, acute and chronic (Resolved) The patient is a 58 year old M with a significant history of paraplegia from T4 down was secondary to transverse myelitis; neurogenic bladder with indwelling catheter; pressure ulcers on the sacrum and heel who presented to the emergency department with malaise; subjective fever and chills; dark urine; tachycardia and found to have fever; tachycardia; tachypnea on presentation and also with abnormal urinalysis and leukocytosis consistent with sepsis secondary to probable UTI. Sepsis secondary to UTI in the setting of chronic indwelling Lima. Patient meets sirs criteria of tachycardia; tachypnea; fever and leukocytosis. Probable source of infection is UTI chronic Lima. Received ceftriaxone at the emergency department we will continue ceftriaxone. He received Tylenol for fever. Tylenol as needed ordered. Lactic acid was unremarkable. Received IV bolus in the emergency department. We will continue patient on IV maintenance infusion. Follow urine culture and blood culture follow urine culture and blood culture Pressure ulcers/colostomy Wound care consult. Maintain patient on current home dressing to further recommendation from wound care. Leave home foam boot on left foot. Transverse Myelitis Baclofen and Neurontin continued. Home Oxycodone continued Tobacco abuse Counseled Nicotine patch ordered. Chronic osteomyelitis Doxycycline continued. DVT Prophylaxis Subcutaneous Lovenox. Code Visit Inpatient E&M: 66234 Init Hosp L3
[2019-01-19] MEDS: 0.9% Normal Saline 1,000 ML 75 ML IV (22:20)
[2019-01-19] MEDS: 0.9% NaCl Peripheral Flush Adult/Peds IV (22:30)
[2019-01-20] MEDS: Baclofen 10 MG Tablet 20 MG PO ×4 (00:07→21:18)
[2019-01-20] MEDS: Ondansetron 4 MG/2 ML Vial IV (00:09)
[2019-01-20] MEDS: Nortriptyline 25 MG Capsule 100 MG PO ×2 (00:47→21:19)
[2019-01-20 02:15] VITALS: TEMP 37.6
[2019-01-20 05:00] VITALS: BP 125/80; PULSE 104; RESP 20; TEMP 36.9; O2SAT 93
[2019-01-20] MEDS: Gabapentin 300 MG Capsule 900 MG PO ×3 (06:32→16:53)
[2019-01-20 06:33] LABS: Absolute Lymphocyte Count 1.63 X10^3/uL (0.83-4.51); Absolute Neutrophil Count 14.7 X10^3/uL (2.0-7.7); Basophil# 0.05 X10^3/uL; Basophil% 0.3 % (0-1); Hematocrit 46.7 % (40-54); Hemoglobin 15.6 g/dL (13.0-16.5); Lymphocyte # 1.63 X10^3/ul (4.0); Lymphocyte % 9.3 % (19-41); Mean Corp Hgb Conc 33.4 g/dL (32-36); Mean Corpuscular Hgb 29.2 pg (27.0-32.0); Mean Corpuscular Volume 87.3 fL (80-94); Mean Platelet Vol. 9.5 fl (6.2-12.0); Monocyte# 1.14 X10^3/uL; Monocyte% 6.5 % (0-10); NRBC Flagged by Analyzer 0 % (0-5); Neutrophil # 14.66 X10^3/uL (2.7-7.7); Neutrophil % 83.5 % (47-70); Platelet Count 269 K/mm3 (150-450); RBC Distribution Width SD 52.9 fl (35.1-43.9); Red Blood Count 5.35 M/mm3 (4.6-6.2); White Blood Count 17.6 K/mm3 (4.4-11.0)
[2019-01-20] MEDS: Ascorbic Acid 500 MG Tablet 1000 MG PO ×2 (06:49→13:57)
[2019-01-20 06:55] LABS: Anion Gap 7 (5-15); BUN 14 mg/dL (7-18); BUN/Creat Ratio 18.2 RATIO (10-20); Calcium,Total 8.2 mg/dL (8.5-10.1); Chloride 108 mmol/L (98-107); Creatinine, Serum 0.77 mg/dL (0.70-1.30); EST Glomerular Filtration Rate 110 mL/min (>60); Est Glom Filt Rate - Afr Amer 134 mL/min (>60); Estimated Creatinine Clearance 105.85 ml/min; Glucose 101 mg/dL (74-106); Potassium 3.6 mmol/L (3.5-5.1); Sodium Level 138 mmol/L (136-145)
[2019-01-20 08:40] VITALS: BP 107/87; PULSE 105; RESP 16; TEMP 37; O2SAT 94
[2019-01-20] MEDS: Doxycycline 100 MG CAPSULE PO ×2 (08:41→21:18)
[2019-01-20] MEDS: Multivitamins,Therapeutic Tablet 1 TABLET PO (08:45)
[2019-01-20] MEDS: Ceftriaxone 1 GM/50 ML BAG IV ×2 (10:13→21:17)
[2019-01-20] MEDS: 0.9% Normal Saline 1,000 ML 100 ML IV ×2 (10:13→21:17)
[2019-01-20] MEDS: Enoxaparin 40 MG/0.4 ML Syringe SC (10:14)
[2019-01-20 11:20] VITALS: O2SAT 93
[2019-01-20 14:00] VITALS: BP 133/82; PULSE 99; RESP 16; TEMP 37.3; O2SAT 98
--- NOTE | 2019-01-20 17:59 | PN_ITS ---
Patient Problems: Active and Suspected Problems Sepsis due to urinary tract infection (Acute) Subjective: Patient was seen and examined today, his white blood cell count has decreased today, he appears medically stable at this time, I briefly entertained changing his antibiotic coverage due to the results of his past urine cultures but since he is appearing to stabilize currently on Rocephin, I elected to keep him on Rocephin for the time being until the urine culture results return. - Physical Exam General: Alert, Oriented x3, Cooperative, No apparent distress, Well developed HEENT: Atraumatic, PERRLA, EOMI, Normocephalic Oral: Moist Mucosa Neck: Supple, No Nuchal Rigidity, Trachea Midline, Thyroid Normal Size and Texture Lungs: Clear to auscultation, Normal air movement, No rhonchi, No wheeze, No rales Cardiovascular: Regular rate, Regular Rhythm, Normal S1, Normal S2, No murmurs, No Ectopic Activity Abdomen: Bowel Sounds Present, Soft, Non Tender, Non-Distended, - - Colostomy present Extremities: No clubbing, No cyanosis, Capillary Refill Less than 3 Seconds Skin: - - Evidence of healed pressure injuries are noted of the patient's buttocks and iliac areas Neurological: Cranial nerves II-XII grossly intact, - - Patient has paraplegia Psych/Mental Status: Normal Affect, Appropriate, Alert and oriented to time, place, person, mood and affect Vital Signs Temp Pulse Resp BP Pulse Ox 99.1 F 99 16 133/82 H 98 01/20/19 14:00 01/20/19 14:00 01/20/19 14:00 01/20/19 14:00 01/20/19 14:00 Oxygen Delivery Method Room Air Weight: 71.7 kg Body Mass Index (BMI) 23.3 Intake and Output for Last 24 Hours 01/18/19 01/19/19 01/20/19 23:59 23:59 23:59 Intake Total 1373.75 / 1373.75 1257.92 / 1257.92 Output Total 175 / 175 650 / 650 Balance 1198.75 / 1198.75 607.92 / 607.92 Microbiology Past 72 Hours 01/19/19 18:00 Urine Culture - Preliminary Urine Catheter - Lima Gram negative yelena Laboratory Tests Past 24 Hrs 01/19/19 01/19/19 01/19/19 17:50 17:50 17:50 WBC 25.8 H RBC 6.20 Hgb 17.9 H Hct 53.5 MCV 86.3 MCH 28.9 MCHC 33.5 RDW Std Deviation 51.5 H RDW Coeff of Bhanu 17.9 H Plt Count 315 MPV 9.4 Immature Gran % (Auto) 0.500 Neut % (Auto) 87.3 H Lymph % (Auto) 5.5 L [place] % (Auto) 6.4 Eos % (Auto) 0.0 Baso % (Auto) 0.3 Absolute Neuts (auto) 22.5 H Absolute Lymphs (auto) 1.43 Nucleated RBC % 0 Differential Comment SCANNED Diff Path Review May foll Platelet Estimate ADEQUATE RBC Morphology NORM C+C PT 14.7 INR 1.2 APTT 49.0 H Sodium 139 Potassium 3.9 Chloride 107 Carbon Dioxide 24.0 Anion Gap 8 BUN 14 Creatinine 0.92 Estim Creat Clear Calc 85.71 Est GFR (MDRD) Af Amer 109 Est GFR (MDRD) Non-Af 90 BUN/Creatinine Ratio 15.2 Glucose 117 H Lactic Acid Calcium 9.1 Total Bilirubin 0.60 AST 18 ALT 28 Alkaline Phosphatase 189 H Total Protein 8.3 H Albumin 3.1 L Globulin 5.2 H Albumin/Globulin Ratio 0.6 L Urine Color Urine Clarity Urine pH Ur Specific [place] Urine Protein Urine Glucose (UA) Urine Ketones Urine Occult Blood Urine Nitrite Urine Bilirubin Urine Urobilinogen Ur Leukocyte Esterase Urine RBC Urine WBC Ur Squamous Epith Cells Calcium Oxalate Crystal Triple Phos Crystals Amorphous Sediment Urine Bacteria Urine Mucus 01/19/19 01/19/19 01/20/19 17:50 18:00 05:45 WBC 17.6 H RBC 5.35 Hgb 15.6 Hct 46.7 MCV 87.3 MCH 29.2 MCHC 33.4 RDW Std Deviation 52.9 H RDW Coeff of Bhanu 17.0 H Plt Count 269 MPV 9.5 Immature Gran % (Auto) 0.400 Neut % (Auto) 83.5 H Lymph % (Auto) 9.3 L [place] % (Auto) 6.5 Eos % (Auto) 0.0 Baso % (Auto) 0.3 Absolute Neuts (auto) 14.7 H Absolute Lymphs (auto) 1.63 Nucleated RBC % 0 Differential Comment Diff Path Review Platelet Estimate RBC Morphology PT INR APTT Sodium Potassium Chloride Carbon Dioxide Anion Gap BUN Creatinine Estim Creat Clear Calc Est GFR (MDRD) Af Amer Est GFR (MDRD) Non-Af BUN/Creatinine Ratio Glucose Lactic Acid 0.9 Calcium Total Bilirubin AST ALT Alkaline Phosphatase Total Protein Albumin Globulin Albumin/Globulin Ratio Urine Color Yellow Urine Clarity Cloudy Urine pH 9.0 Ur Specific [place] 1.015 Urine Protein 100 H Urine Glucose (UA) Normal Urine Ketones 5 H Urine Occult Blood 150 H Urine Nitrite Positive H Urine Bilirubin Negative Urine Urobilinogen Normal Ur Leukocyte Esterase 500 H Urine RBC 10-25 SEEN Urine WBC 25-50 SEEN Ur Squamous Epith Cells 5-10 SEEN Calcium Oxalate Crystal RARE Triple Phos Crystals 1+ Amorphous Sediment 1+ PHOS Urine Bacteria 1+ Urine Mucus 0 SEEN 01/20/19 05:45 WBC RBC Hgb Hct MCV MCH MCHC RDW Std Deviation RDW Coeff of Bhanu Plt Count MPV Immature Gran % (Auto) Neut % (Auto) Lymph % (Auto) [place] % (Auto) Eos % (Auto) Baso % (Auto) Absolute Neuts (auto) Absolute Lymphs (auto) Nucleated RBC % Differential Comment Diff Path Review Platelet Estimate RBC Morphology PT INR APTT Sodium 138 Potassium 3.6 Chloride 108 H Carbon Dioxide 23.0 Anion Gap 7 BUN 14 Creatinine 0.77 Estim Creat Clear Calc 105.85 Est GFR (MDRD) Af Amer 134 Est GFR (MDRD) Non-Af 110 BUN/Creatinine Ratio 18.2 Glucose 101 Lactic Acid Calcium 8.2 L Total Bilirubin AST ALT Alkaline Phosphatase Total Protein Albumin Globulin Albumin/Globulin Ratio Urine Color Urine Clarity Urine pH Ur Specific [place] Urine Protein Urine Glucose (UA) Urine Ketones Urine Occult Blood Urine Nitrite Urine Bilirubin Urine Urobilinogen Ur Leukocyte Esterase Urine RBC Urine WBC Ur Squamous Epith Cells Calcium Oxalate Crystal Triple Phos Crystals Amorphous Sediment Urine Bacteria Urine Mucus Medical Necessity - Tobacco Use Smoking Status: Current every day smoker Assessment/Plan All Active Problems Sepsis due to urinary tract infection (Acute) Fever (Acute) Obstruction of Lima catheter (Resolved) Hematuria (Resolved) Continuous chronic alcoholism (Resolved) Right ischial pressure sore, stage 4 (Resolved) Transverse myelitis (Resolved) Ulcer of heel (Resolved) malnutrition, mild (Resolved) osteomyelitis rt heel, acute and chronic (Resolved) #1 acute sepsis secondary to cystitis related to suprapubic catheter-patient will remain on Rocephin-day #2, await urine culture results #2 acute cystitis-secondary to chronic suprapubic catheter-continue present antibiotic coverage #3 chronic paraplegia #4 chronic osteomyelitis right heel #5 stage IV pressure injury areas to buttocks-now healed-wound care nurse will see the patient tomorrow for consultation Code Visit Inpatient E&M: 25645 Subs Hosp L2
[2019-01-20 20:49] VITALS: BP 130/88; PULSE 102; RESP 18; TEMP 37.2; O2SAT 96
[2019-01-20] MEDS: 0.9% NaCl Peripheral Flush Adult/Peds IV (21:49)
[2019-01-21 03:40] VITALS: BP 132/84; PULSE 91; RESP 18; TEMP 36.6; O2SAT 95
[2019-01-21] MEDS: oxyCODONE 5 MG Tablet PO (03:47)
[2019-01-21] MEDS: Baclofen 10 MG Tablet 20 MG PO ×2 (06:16→13:56)
[2019-01-21 07:10] VITALS: O2SAT 94
[2019-01-21] MEDS: 0.9% Normal Saline 1,000 ML 100 ML IV (08:30)
[2019-01-21] MEDS: Multivitamins,Therapeutic Tablet 1 TABLET PO (08:59)
[2019-01-21] MEDS: Gabapentin 300 MG Capsule 900 MG PO ×2 (08:59→13:56)
[2019-01-21] MEDS: Doxycycline 100 MG CAPSULE PO (09:07)
[2019-01-21] MEDS: Ceftriaxone 1 GM/50 ML BAG IV (09:07)
[2019-01-21] MEDS: Enoxaparin 40 MG/0.4 ML Syringe SC (09:08)
[2019-01-21 09:38] VITALS: BP 145/96; PULSE 92; RESP 18; TEMP 36.8; O2SAT 98
--- NOTE | 2019-01-21 10:55 | CASEMGMT ---
ABISAI MENDES Face to Face with patient for initial transition planning/care coordination assessment. ABISAI MENDES introduced self and role at [facility]. Patient lying in bed, alert and oriented. Patient willing to participate in assessment and is able to answer all questions appropriately. Care providers, pharmacy, and demographics verified. Patient wishes to discharge home with resumption of his HHC with [facility]. Patient states he has no further needs or concerns at this time. CM to follow for discharge planning needs that may arise. [facility] none Preferred Pharmacy: [facility] or [place] Insurance: [facility] Prescription Benefit: yes Living Will/HPOA: yes, mother Coco Ruffin LNOK: mother, sister Living Arrangements: Patient lives with ex and children in 2 story home with bed and bath on first floor. Ramp to enter the home. Transportation: [employer] assists with ADLs DME/HHC: patient has hospital bed, elizabeth, and wheelchairs. Patient is current with [facility]. ABISAI MENDES sent updated clinicals to [facility]. Will send discharge instructions when available. Disposition Plan: Patient to discharge home with [facility], family support, and follow-up plans in place. Diane POOLE, RN, CM
--- NOTE | 2019-01-21 11:10 | CASEMGMT ---
Social Work Note Per real estate manager questions, pt has completed HCPOA and LW but hasn't provided copy to [facility]. Diane Jamison TRIP FOLLOWER, SHOVEL ENGINEER
--- NOTE | 2019-01-21 16:06 | PCM.DC ---
- Discharge Diagnoses Current Active Problems: Current Active and Chronic Problems Sepsis due to urinary tract infection (Acute) Paraplegia (Chronic) You will use the following diet at home:: No restrictions Your food should be the consistency of: Regular Your liquids should be the consistency of: Regular/Thin Discharge Activity: Return to Normal Activity Weight Bearing Status: - - resume previous activity Allergies/Adverse Reactions: Allergies No Known Allergies Allergy (Verified 01/19/19 18:23) Medications to take at Discharge Baclofen [Lioresal] 20 mg PO TID 02/26/13 Multivitamins,Therapeutic [Multivitamin] 1 tab PO LUNCH 02/26/13 Gabapentin [Neurontin] 900 mg PO TID 04/19/13 Doxycycline Monohydrate 100 mg PO BID 01/19/19 Nortriptyline HCl [Pamelor] 100 mg PO QHS 01/19/19 levoFLOXacin tablet [Levaquin tablet] 500 mg PO DAILY #7 tab 01/21/19 The following prescriptions were given: levoFLOXacin tablet [Levaquin tablet] 500 mg PO DAILY #7 tab Transmission Status: Pending to [facility] Primary Care Physician: [facility] [Primary Care Provider] - Please follow up with your Primary Care Physician in: in 2 weeks Test Results: Test results from this visit will be discussed in further detail at your follow-up appointment, if applicable.
[2019-01-21 17:17] VITALS: BP 140/99; PULSE 86; RESP 18; TEMP 36.7; O2SAT 98
[2019-01-23 09:00] LABS: Pathologist Review Reviewed
--- NOTE | 2019-01-24 10:09 | PCM.DC.SUM ---
Discharge Date and Diagnosis Date of Admission: 01/19/19 Date of Discharge: 01/21/19 - Primary Discharge Diagnosis #1 acute sepsis secondary to cystitis related to suprapubic catheter-organism Providencia rettgeri #2 acute cystitis-secondary to chronic suprapubic catheter-organism Providencia rettgeri #3 chronic paraplegia #4 chronic osteomyelitis right heel #5 stage IV pressure injury areas to buttocks-now healed - Secondary Discharge Diagnosis Chronic Problems Paraplegia (Chronic) Neurogenic bladder (Chronic) Transverse myelitis (Chronic) Pressure ulcer of ischium, stage 2 (Chronic) Pressure ulcer of right hip, stage 1 (Chronic) Sacral ulcer (Chronic) Benign essential hypertension (Chronic) Colostomy in place (Chronic) Hospital Course and Treatment Consultations 01/19/19 20:51 Consult: Onc/Wound/manager housekeeping Routine Comment: Reason for Consult:: COLOSTOMY; CHRONIC WOUNDS ON BUTTOCKS Procedures: None Summary of Care Provided: The patient is a 58 year old M was seen in the emergency room at [facility] with a chief complaint of malaise and fever. Patient has a history of paraplegia. He stated that he had a CBC performed several days previous by the [facility] and was notified he had an elevated white blood cell count. Work-up in the emergency room revealed the patient to have sepsis from a urinary tract infection, he was given IV Rocephin and admitted to the hospital on MedSurg 3. Patient responded well to antibiotic treatment and IV fluids. Urine culture resulted in Providencia rettgeri as the organism. On 01/21/2019, patient was seen and examined and felt to be in stable condition for discharge home: On examination he appeared in good health and spirits. Vital signs as documented. Skin warm and dry and without overt rashes. Neck without JVD. Lungs clear. Heart exam notable for regular rhythm, normal sounds and absence of murmurs, rubs or gallops. Abdomen unremarkable and without evidence of organomegaly, masses, or abdominal aortic enlargement. Extremities-muscle wasting is noted over the patient's lower extremities. Neuro: Cranial nerves II through XII are grossly intact, no focal motor deficits were noted, sensation to light touch and pinprick intact. Psych: Patient is alert and oriented x3, he does not appear anxious or depressed - Physical Exam Vital Signs Temp Pulse Resp BP Pulse Ox 98.0 F 86 18 140/99 H 98 01/21/19 17:17 01/21/19 17:17 01/21/19 17:17 01/21/19 17:17 01/21/19 17:17 Oxygen Delivery Method Room Air Weight: 71.7 kg Body Mass Index (BMI) 23.3 Microbiology Past 72 Hours 01/19/19 17:50 Blood Culture - Preliminary Blood Culture (Wb) - Left Hand No growth in 48 hours. 01/19/19 17:50 Blood Culture - Preliminary Blood Culture (Wb) - Anticubital Left No growth in 48 hours. 01/19/19 18:00 Urine Culture - Final Urine Catheter - Lima Providencia rettgeri Discharge Activity: Return to Normal Activity Weight Bearing Status: - - resume previous activity Home Medications: Medications to take at Discharge Baclofen [Lioresal] 20 mg PO TID 02/26/13 Multivitamins,Therapeutic [Multivitamin] 1 tab PO LUNCH 02/26/13 Gabapentin [Neurontin] 900 mg PO TID 04/19/13 Doxycycline Monohydrate 100 mg PO BID 01/19/19 Nortriptyline HCl [Pamelor] 100 mg PO QHS 01/19/19 levoFLOXacin tablet [Levaquin tablet] 500 mg PO DAILY #7 tab 01/21/19 Following Prescrptions Were Given to Patient: levoFLOXacin tablet [Levaquin tablet] 500 mg PO DAILY #7 tab Transmission Status: Received by [facility] [Primary [facility] Provider] - Please follow up with your Primary Care Physician in: in 2 weeks Disposition: Home Minutes spent on discharge:: 31 Patient Condition:: Stable Medical Necessity - Tobacco Use Smoking Status: Current every day smoker Meaningful Use Info Meaningful Use Diagnoses (Choose all that apply): None applicable Code Visit Inpatient E&M: 80712 Disch Hosp
== END 2019-01-21 17:05 | disposition home or self-care (01) | DRG 698 ==
LOC: ED 19:03 → MS3 20:39
PROVIDERS: Admitting Provider Hospitalist; Emergency Provider Emergency Medicine; Visit Provider Internal Medicine
DX: T83.510A Infection and inflammatory reaction due to cystostomy catheter, initial encounter (principal); A41.9 Sepsis, unspecified organism; G82.20 Paraplegia, unspecified; N30.00 Acute cystitis without hematuria; G37.3 Acute transverse myelitis in demyelinating disease of central nervous system; M86.671 Other chronic osteomyelitis, right ankle and foot; Z93.3 Colostomy status; N31.9 Neuromuscular dysfunction of bladder, unspecified
CPT/HCPCS: 36415; 71045; 80048; 80053; 81001; 83605; 85025; 85610; 85730; 87040; 87077; 87086; 87088; 87186; 93005; 99285; 99406; J7030; J7050; A4216; J2405

== ENCOUNTER 2021-06-27 23:55 | Inpatient (IN) | payer OTHER, SELFPAY ==
[2021-06-27 23:56] VITALS: BP 109/85; PULSE 81; RESP 16; TEMP 36.7; O2SAT 95; BMI 26.0
[2021-06-28] VITALS (21 sets, daily range): BP systolic 105–152; BP diastolic 74–107; PULSE 64–89; RESP 13–18; TEMP 35.9–36.9; O2SAT 94–100; BMI 23.9
--- NOTE | 2021-06-28 00:16 | RAD_ITS ---
STUDY: X-RAY CHEST REASON FOR EXAM: Male, 61 years old. chest pain TECHNIQUE: Single AP portable view of the chest. COMPARISON: 01/19/2019. FINDINGS: There is minimal left basilar atelectasis. Remainder of the lung ferrera are clear. There is no demonstrated pleural abnormality. Normal size heart. Normal mediastinum and caryl. Normal visualized pulmonary arteries. Normal visualized aortic arch and descending thoracic aorta. Questionable scoliosis of thoracic spine with convexity to the right versus tilted positioning. There is degenerative osteoarthritis of the bilateral shoulders. There is no demonstrated abnormality of the visualized soft tissue structures of the upper abdomen. RAD/Chest 1 View (Portable) IMPRESSION: Minimal left basilar atelectasis. Otherwise no acute cardiopulmonary disease. Electronically Signed: Mari Ferro MD at 1:14 EST ,
--- NOTE | 2021-06-28 00:16 | EKG12_ITS ---
Test Reason : CP Blood Pressure : / mmHG Vent. Rate : 079 BPM Atrial Rate : 079 BPM P-R Int : 182 ms QRS Dur : 082 ms QT Int : 380 ms P-R-T Axes : 057 069 079 degrees QTc Int : 435 ms Normal sinus rhythm Normal ECG Confirmed by JUAN MARR, BRUCE ([id number]), scientific publications editor AURORA FOURNIER ([id number]) on 06/28/2021 11:05:02 AM Referred By: Lorraine Quinonez Confirmed By:BRUCE MARTINEZ MD
--- NOTE | 2021-06-28 00:17 | EDS_ITS ---
HPI History of Present Illness Chief Complaint: Chest Pain Informant: patient Onset/Context/Timing Onset: Today Activity at onset: gradual Timing: Intermittent and Lasts (Approximately 20 minutes) Quality: Positive for Heaviness Location: Substernal Worsened By: Nothing Relieved By: NTG Associated Symptoms: Positive for Dyspnea and Acid Reflux; Negative for Nausea, Vomiting, Diaphoresis, Cough, Fever, Lightheadedness and Palpitations Narrative Narrative: Patient presents with chest pain that began earlier today. Patient states it has been intermittent over the past 9 hours. Patient describes it as a heaviness. Patient states it is over the substernal area. Patient states nothing makes it worse. Patient states he got better with nitroglycerin given by EMS. Patient admits to some slight shortness of breath. Patient also admits to some gastroesophageal reflux symptoms. Patient denies any cough or fever. Patient denies any nausea or vomiting. Patient denies any diaphoresis. Patient denies any palpitations. CVD Risk Factors: Positive for Hypertension, Family History 1' </=55 and Smoking; Negative for Diabetes and Hypercholesterolemia PE Risk Factors: Positive for Recent Immobilization; Negative for Recent Travel/Surgery, Prior DVT or PE, Cancer and OCP + Smoking + >/=35 PFSH PFSH Medical History Acute paralytic poliomyelitis, wild virus, indigenous Anxiety and depression Benign essential hypertension Chest pain Chronic indwelling [place] catheter Depression Heavy alcohol use Neurogenic bladder Smoker Tobacco use Home Medications baclofen 20 mg PO TID 02/26/13 [History Last Taken 06/27/21] multivitamin with folic acid [Thera] 1 tab PO LUNCH 02/26/13 [History Last Taken 06/27/21] gabapentin 900 mg PO TID 04/19/13 [History Last Taken 06/27/21] nortriptyline 100 mg PO QHS 01/19/19 [History Last Taken 06/26/21] levofloxacin 500 mg PO DAILY #7 tab 01/21/19 [Rx Last Taken Unknown] Allergy/AdvReac Type Severity Reaction Status Date / Time No Known Allergies Allergy Verified 06/28/21 00:03 Family History Father CVA (cerebral vascular accident) Heart disease Myocardial infarction Surgical History History of suprapubic catheter Hx of colostomy S/P appendectomy Status post osteotomy Social History household members: spouse Smoking Status: Light Smoker (<10/day) alcohol intake: former substance use type: marijuana ROS ROS ED Constitutional Constitutional ED: Denies chills or fever(s) Eyes Eyes: Denies blurry vision or change in vision ENT ENT ED: Denies rhinorrhea or sore throat Cardiovascular Cardiovascular: Reports chest pain; Denies palpitations Respiratory/Chest Respiratory/Chest: Reports dyspnea; Denies cough Gastrointestinal Gastrointestinal: Denies abdominal pain, nausea or vomiting Genitourinary Genitourinary ED: Denies dysuria or hematuria Musculoskeletal Musculoskeletal: Denies back pain or neck pain Integumentary Denies abscess or rash Neurologic Neurologic: Denies headache(s) or weakness Allergic/Immunologic Allergic/Immunologic ED: Denies mouth swelling or urticaria EXAM Physical Exam Const Vital Signs: 06/27/21 23:56 06/28/21 00:18 06/28/21 00:56 Temperature 98.0 F Temperature Source Oral Pulse Rate 81 65 Respiratory Rate 16 14 Blood Pressure 109/85 H 105/74 Blood Pressure Mean 93 84 Pulse Ox 95 95 Oxygen Delivery Method Room Air Room Air Room Air 06/28/21 01:20 Temperature Temperature Source Pulse Rate 64 Respiratory Rate 13 Blood Pressure 122/76 H Blood Pressure Mean 91 Pulse Ox 96 Oxygen Delivery Method Room Air Positive well nourished and well developed General Appearance ED: well developed HEENT normocephalic and atraumatic Eyes PERRL and EOMs intact bilaterally Neck supple and no JVD Chest Wall palpation of chest normal Resp normal respiratory effort and clear to auscultation bilaterally Effort and Inspection: Negative for respiratory distress Cardio regular rate, regular rhythm and no murmurs GI normal to inspection, nondistended, normoactive bowel sounds, soft to palpation, non-tender and non-distended Extremity normal to inspection General Extremety ED: Negative for edema or tenderness General Extremity: Negative for edema Neuro oriented x3 and CN's II-XII intact bilaterally Sensorium / Orientation: awake and alert Psych mental status grossly normal Heart Score History: Slightly/Non-Suspicious ECG: Normal Age: >45 - <65 years Risk Factors: 1 or 2 Risk Factors Troponin: >/=3 x Normal Limit Score: 4 MDM MDM MDM Narrative Medical decision making narrative: EKG was obtained. On my interpretation, it showed a normal sinus rhythm with a rate of 79. OK interval, QRS interval, and QTc intervals were all normal. [place] was normal. There are no acute ST or T wave changes. Portable 1 view chest x-ray was obtained. On my interpretation, lung ferrera are clear. There is normal cardiac silhouette. Bony thorax is normal. There is no acute process noted. Radiologist also interpreted the x- ray and agrees. CBC shows a mild leukocytosis of 13.3. This is consistent with prior results. Basic metabolic profile was obtained and was essentially within normal limits. High-sensitivity troponin was elevated at 363. Patient did have an episode of recurrent chest pain here in the emergency department. Repeat EKG with a normal sinus rhythm with a rate of 76. There are no acute ST or T wave changes noted. Currently, patient denies any chest pain. Case was discussed with the hospitalist. She will admit the patient to her service. Patient understood and was agreeable with the plan. All questions were answered. Lab Data Attestation: I reviewed the patient's lab results. Labs: Laboratory Results - last 24 hr 06/28/21 06/28/21 06/28/21 00:23 00:23 00:23 WBC 13.3 H RBC 5.65 Hgb 16.3 Hct 48.1 MCV 85.1 MCH 28.8 MCHC 33.9 RDW Std Deviation 48.6 H RDW Coeff of Bhanu 15.6 H Plt Count 285 MPV 9.5 Immature Gran % (Auto) 0.400 Neut % (Auto) 60.2 Lymph % (Auto) 28.2 [place] % (Auto) 7.8 Eos % (Auto) 2.9 Baso % (Auto) 0.5 Absolute Neuts (auto) 8.0 H Absolute Lymphs (auto) 3.74 Nucleated RBC % 0 Sodium 138 Potassium 4.3 Chloride 108 H Carbon Dioxide 26.0 Anion Gap 4 L BUN 18 Creatinine 0.82 Estim Creat Clear Calc 95.80 Est GFR (MDRD) Af Amer 122 Est GFR (MDRD) Non-Af 101 BUN/Creatinine Ratio 21.8 H Glucose 107 H Calcium 8.9 Magnesium 2.1 Troponin I High Sens 363 H* Radiography Chest X-Ray - ED: 1 View, Read by ED Physician, Read by Radiologist and Normal Diagnostic Testing: Clinical Impression(s) from Imaging Studies Chest X-Ray 06/28/21 00:16 IMPRESSION: Minimal left basilar atelectasis. Otherwise no acute cardiopulmonary disease. Electronically Signed: Mari Ferro MD at 1:14 EST , EKG Initial EKG: Attestation: I personally reviewed and interpreted this EKG as follows: Interpretation: Sinus Rhythm (79) and No Acute Injury Pattern Prior EKG tracings: available for review Prior: Unchanged (01/19/2019) Follow-up EKG: Attestation: I personally reviewed and interpreted this EKG as follows: Interpretation: Sinus Rhythm (76) and No Acute Injury Pattern Prior: Unchanged Treatment and Re-Evaluation Vital Sign Attestation:: Vital signs were reviewed prior to admission. They are stable. Discharge Plan Dx/Rx/DC Orders Clinical Impression: Non-ST elevated myocardial infarction (non-STEMI) Disposition Disposition: Acute Care Hospital [facility]
[2021-06-28 00:30] LABS: Absolute Lymphocyte Count 3.74 X10^3/uL (0.83-4.51); Basophil# 0.06 X10^3/uL; Basophil% 0.5 % (0-1); Eosinophil# 0.38 X10^3/uL; Eosinophils% 2.9 % (0-5); Hematocrit 48.1 % (40-54); Hemoglobin 16.3 g/dL (13.0-16.5); Lymphocyte # 3.74 X10^3/ul (0.83-4.51); Lymphocyte % 28.2 % (19-41); Mean Corp Hgb Conc 33.9 g/dL (32-36); Mean Corpuscular Hgb 28.8 pg (27.0-32.0); Mean Corpuscular Volume 85.1 fL (80-94); Mean Platelet Vol. 9.5 fl (6.2-12.0); Monocyte# 1.03 X10^3/uL; Monocyte% 7.8 % (0-10); NRBC Flagged by Analyzer 0 % (0-5); Neutrophil # 8.01 X10^3/uL (2.7-7.7); Neutrophil % 60.2 % (47-70); Platelet Count 285 K/mm3 (150-450); RBC Distribution Width CV 15.6 % (11.6-14.6); RBC Distribution Width SD 48.6 fl (35.1-43.9); Red Blood Count 5.65 M/mm3 (4.6-6.2); White Blood Count 13.3 K/mm3 (4.4-11.0)
--- NOTE | 2021-06-28 00:30 | EKG12_ITS ---
Test Reason : CP Blood Pressure : / mmHG Vent. Rate : 076 BPM Atrial Rate : 076 BPM P-R Int : 182 ms QRS Dur : 088 ms QT Int : 388 ms P-R-T Axes : 054 066 083 degrees QTc Int : 436 ms Normal sinus rhythm Normal ECG Confirmed by JUAN MARR, BRUCE ([id number]), editor in chief AURORA FOURNIER ([id number]) on 06/28/2021 11:05:18 AM Referred By: Lorraine Quinonez Confirmed By:BRUCE MARTINEZ MD
[2021-06-28 01:18] LABS: Anion Gap 4 (5-15); BUN 18 mg/dL (7-18); BUN/Creat Ratio 21.8 RATIO (10-20); Calcium,Total 8.9 mg/dL (8.5-10.1); Chloride 108 mmol/L (98-107); Creatinine, Serum 0.82 mg/dL (0.70-1.30); EST Glomerular Filtration Rate 101 mL/min (>60); Est Glom Filt Rate - Afr Amer 122 mL/min (>60); Glucose 107 mg/dL (74-106); Potassium 4.3 mmol/L (3.5-5.1); Sodium Level 138 mmol/L (136-145); Troponin-I HS 363 pg/mL (3.0-78.0)
--- NOTE | 2021-06-28 01:26 | HP.PCM_ITS ---
Documented by User: MARCOS Jones 06/28/21 01:58 HPI - General General Date of Admission: 06/28/21 Date of Service: 06/28/21 Chief Complaint: Chest pain HPI Narrative KALEN GAVIN, is a 61 M who presents with complaints of chest pain. Patient states that the chest pain began earlier today and has been intermittent. Patient also reports concurrent shortness of breath and heartburn. Patient denies nausea, vomiting, diaphoresis, palpitations. Patient was given nitroglycerin by EMS which was effective at reducing chest pain. Patient states that he currently does not have any chest pain. Patient received aspirin 324 mg p.o. x1 in ER as well as enoxaparin 80 mg x 1 subcu. [facility] Medical History Acute paralytic poliomyelitis, wild virus, indigenous Anxiety and depression Benign essential hypertension Heavy alcohol use Neurogenic bladder Tobacco use Home Medications baclofen 20 mg PO TID 02/26/13 [History Last Taken 01/19/19 20 mg] multivitamin with folic acid [Thera] 1 tab PO LUNCH 02/26/13 [History Last Taken 01/19/19] gabapentin 900 mg PO TID 04/19/13 [History Last Taken 01/19/19 600 mg] nortriptyline 100 mg PO QHS 01/19/19 [History Last Taken 01/18/19] levofloxacin 500 mg PO DAILY #7 tab 01/21/19 [Rx Last Taken Unknown] Allergy/AdvReac Type Severity Reaction Status Date / Time No Known Allergies Allergy Verified 06/28/21 00:03 Family History Father CVA (cerebral vascular accident) Heart disease Myocardial infarction Surgical History History of suprapubic catheter Hx of colostomy S/P appendectomy Status post osteotomy Social History (Updated 06/28/21 @ 01:[address] Lorraine Quinonez MD) household members: spouse Smoking Status: Light Smoker (<10/day) alcohol intake: former substance use type: marijuana ROS Constitutional Constitutional: Denies anorexia, chills, fatigue, malaise or weakness Cardiovascular Cardiovascular: Reports chest pain and dyspnea on exertion; Denies edema, orthopnea, palpitations or syncope Respiratory/Chest Respiratory/Chest: Denies cough, shortness of breath at rest, shortness of breath with exertion or wheezing Gastrointestinal Gastrointestinal: Denies abdominal pain, constipation, diarrhea, nausea or vomiting Genitourinary Genitourinary: Denies dysuria Musculoskeletal Musculoskeletal: Denies back pain, extremity pain, joint pain or joint stiffness Integumentary Integumentary: Denies dry skin Neurologic Neurologic: Denies abnormal gait, abnormal speech, confusion, dizziness or focal weakness Psychiatric Psychiatric: Denies anxiety or depression Endocrine Endocrinology: Denies change in body appearance Hematologic/Lymphatic Hematologic/Lymphatic: Denies anemia, easy bleeding or easy bruising Vital Signs Vital Signs Vital Signs: 06/27/21 23:56 06/28/21 00:18 06/28/21 00:56 Temperature 98.0 F Temperature Source Oral Pulse Rate 81 65 Respiratory Rate 16 14 Blood Pressure 109/85 H 105/74 Blood Pressure Mean 93 84 Pulse Ox 95 95 Oxygen Delivery Method Room Air Room Air Room Air 06/28/21 01:20 Temperature Temperature Source Pulse Rate 64 Respiratory Rate 13 Blood Pressure 122/76 H Blood Pressure Mean 91 Pulse Ox 96 Oxygen Delivery Method Room Air Weight Weight: 176 lb 5.917 oz Body Mass Index (BMI) 26.0 Physical Exam Const alert, oriented x3 and no apparent distress General Appearance: cooperative Eyes conjunctivae normal and no scleral icterus Neck supple General: trachea midline Resp normal respiratory effort, normal air movement and clear to auscultation bilaterally Cardio regular rate, regular rhythm, S1 normal heart sound, S2 normal heart sound and peripheral pulses 2+ throughout GI normal to inspection, nondistended, normoactive bowel sounds, soft to palpation and non-tender Extremity normal capillary refill and no clubbing, cyanosis or edema General Extremity: no tenderness to palpation of joints or extremities Skin General Skin Exam: no breakdown and turgor normal Lesions: no lesions Rashes: no rashes Neuro oriented x3 Neuro Narrative: Patient is paraplegic Psych thought process normal, cooperative and affect normal Appearance: appropriate Results Lab / Micro Data Result Diagrams: 06/28/21 00:23 06/28/21 00:23 Labs: Laboratory Results - last 24 hr 06/28/21 00:23: WBC 13.3 H, RBC 5.65, Hgb 16.3, Hct 48.1, MCV 85.1, MCH 28.8, MCHC 33.9, RDW Std Deviation 48.6 H, RDW Coeff of Bhanu 15.6 H, Plt Count 285, MPV 9.5, Immature Gran % (Auto) 0.400, Neut % (Auto) 60.2, Lymph % (Auto) 28.2, [place] % (Auto) 7.8, Eos % (Auto) 2.9, Baso % (Auto) 0.5, Absolute Neuts (auto) 8.0 H, Absolute Lymphs (auto) 3.74, Nucleated RBC % 0 06/28/21 00:23: Sodium 138, Potassium 4.3, Chloride 108 H, Carbon Dioxide 26.0, Anion Gap 4 L, BUN 18, Creatinine 0.82, Estim Creat Clear Calc 95.80, Est GFR (MDRD) Af Amer 122, Est GFR (MDRD) Non-Af 101, BUN/Creatinine Ratio 21.8 H, Glucose 107 H, Calcium 8.9, Troponin I High Sens 363 H* Radiology Impression Chest X-Ray 06/28/21 00:16 IMPRESSION: Minimal left basilar atelectasis. Otherwise no acute cardiopulmonary disease. Electronically Signed: Mari Ferro MD at 1:14 EST Reading Location ID and State: [address] [place] [address] , Service support , Assessment & Plan Assessment/Plan (1) Non-ST elevated myocardial infarction (non-STEMI): PLAN: 1. Non-STEMI -Admit to PCU for continuous cardiac monitoring, heart score 4 -Trend cardiac enzymes -Consult cardiology -Daily weights -N.p.o. -Echocardiogram ordered -CBC, CMP, lipid profile ordered for a.m. as well as EKG -Vital signs per protocol O2 per protocol, patient currently on room air -Therapeutic Lovenox ordered -Daily baby aspirin ordered -Nitroglycerin and IV morphine ordered as needed 2. 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 Tobacco use -Inpatient smoking cessation ordered -Low-dose nicotine patch ordered 4. Presence of suprapubic catheter 5. Presence of colostomy DVT prophylaxis-SCDs, therapeutic Lovenox This patient was seen by ALON JonesC under the supervision of Dr. Quinonez. 29 minutes spent in clinical coordination of patient's plan of care. Documented by User: Dr. Lorraine Quinonez MD 06/28/21 02:03 HPI - General General Date of Admission: 06/28/21 PFSH Medical History Acute paralytic poliomyelitis, wild virus, indigenous Anxiety and depression Benign essential hypertension Heavy alcohol use Neurogenic bladder Tobacco use Home Medications baclofen 20 mg PO TID 02/26/13 [History Last Taken 01/19/19 20 mg] multivitamin with folic acid [Thera] 1 tab PO LUNCH 02/26/13 [History Last Taken 01/19/19] gabapentin 900 mg PO TID 04/19/13 [History Last Taken 01/19/19 600 mg] nortriptyline 100 mg PO QHS 01/19/19 [History Last Taken 01/18/19] levofloxacin 500 mg PO DAILY #7 tab 01/21/19 [Rx Last Taken Unknown] Allergy/AdvReac Type Severity Reaction Status Date / Time No Known Allergies Allergy Verified 06/28/21 00:03 Family History Father CVA (cerebral vascular accident) Heart disease Myocardial infarction Surgical History History of suprapubic catheter Hx of colostomy S/P appendectomy Status post osteotomy Social History (Updated 06/28/21 @ 01:[address] Lorraine Quinonez MD) household members: spouse Smoking Status: Light Smoker (<10/day) alcohol intake: former substance use type: marijuana Results Lab / Micro Data Result Diagrams: 06/28/21 00:23 06/28/21 00:23
[2021-06-28 01:58] LABS: Magnesium 2.1 mg/dL (1.6-2.6)
[2021-06-28] MEDS: Enoxaparin 80 MG/0.8 ML Syringe SC (03:20)
--- NOTE | 2021-06-28 03:38 | ECHOCS_ITS ---
Reason For Study: NSTEMI Procedure This was a 2D Doppler, Color Flow transthoracic echocardiogram. Contrast injection was performed. Exam performed portable in patient room. Left Ventricle Normal LV size. Moderately severe segmental systolic dysfunction (see wall motion). The estimated ejection fraction is 35 %. Stage 1 diastolic dysfunction. [place] : Akinetic. Anterio-Basal: Normal. Lateral-Basal: Normal. Posterior-Basal: Normal. Infero-Basal: Normal. Basal inferoseptal: Normal. Basal anteroseptal: Normal. Mid-Anterior : Severely Hypokinetic. Mid-Lateral : Mildly hypokinetic. Mid-Posterior: Normal. Mid-Inferior: Normal. Mid-inferoseptal : Normal. Mid-anteroseptal : Akinetic. Right Ventricle Normal RV size. Normal systolic function. Atria Normal left atrium. Normal right atrium. Mitral Valve Normal mitral valve. Tricuspid Valve Normal tricuspid valve. Aortic Valve Normal aortic valve. Trisinus/trileaflet aortic valve. Pulmonic Valve Normal pulmonic valve. Great Vessels Normal aortic root. The pulmonary artery is normal size. Inferior vena cava collapse with respiration. Pericardium/Pleural No pericardial effusion. Medication Diluted definity 5.5ml given slow IV push to enhance endocardial definition. MMode/2D Measurements & Calculations LVIDd: 4.8 cm IVSd: 0.95 cm Ao root diam: 2.9 cm LVIDs: 3.2 cm LVPWd: 1.2 cm RVDd: 2.7 cm FS: 34.3 % LAV(MOD-bp): 25.8 ml LVAd ap4: 28.8 cm2 SV(MOD-sp4): 34.8 ml LAV(MOD-bp) Indexed: 13.7 ml/m2 LVLd ap4: 7.4 cm LAV(MOD-sp2): 21.1 ml EDV(MOD-sp4): 91.4 ml LAV(MOD-sp4): 27.0 ml EDV(sp4-el): 94.5 ml LVAs ap4: 22.5 cm2 LVLs ap4: 7.3 cm ESV(MOD-sp4): 56.6 ml ESV(sp4-el): 58.5 ml EF(MOD-sp4): 38.1 % EF(sp4-el): 38.1 % SV(sp4-el): 36.0 ml LA A4 area: 13.2 cm2 LA dimension(2D): 3.3 cm RA A4 area: 7.4 cm2 Doppler Measurements & Calculations MV E max navjot: 52.8 cm/sec Lat Peak E' Navjot: 7.7 cm/sec Med Peak E' Navjot: 4.6 cm/sec MV A max navjot: 76.1 cm/sec E/E' lat: 6.9 E/E' med: 11.5 MV E/A: 0.69 Ao V2 max: 112.2 cm/sec LV V1 max: 100.2 cm/sec PA V2 max: 76.8 cm/sec Ao max P.0 mmHg LV V1 max P.0 mmHg Ao V2 mean: 74.6 cm/sec Ao mean P.5 mmHg Ao V2 VTI: 21.8 cm ECHO/Echo Complete W/ Contrast Interpretation Summary Normal LV size. Moderately severe segmental systolic dysfunction (see wall motion). The estimated ejection fraction is 35 %. Stage 1 diastolic dysfunction. Contrast injection was performed. Ordering Physician: Lorraine Quinonez Referring Physician: [facility] Performed By: Elizabeth Sorto, MAGALY, RVT
--- NOTE | 2021-06-28 03:38 | EKG12_ITS ---
Test Reason : CP Blood Pressure : / mmHG Vent. Rate : 078 BPM Atrial Rate : 078 BPM P-R Int : 166 ms QRS Dur : 082 ms QT Int : 380 ms P-R-T Axes : 053 069 099 degrees QTc Int : 433 ms Normal sinus rhythm T wave abnormality, consider anterior ischemia Abnormal ECG When compared with ECG of 19-JAN-2019 17:45, Vent. rate has decreased BY 43 BPM T wave inversion no longer evident in Inferior leads T wave inversion now evident in Anterior leads Nonspecific T wave abnormality has replaced inverted T waves in Lateral leads Confirmed by JUAN MARR, BRUCE ([id number]), script editor AURORA FOURNIER ([id number]) on 06/29/2021 8:44:30 AM Referred By: Lorraine Quinonez Confirmed By:BRUCE MARTINEZ MD
--- NOTE | 2021-06-28 03:53 | EKG12_ITS ---
Test Reason : POST PCI Blood Pressure : / mmHG Vent. Rate : 067 BPM Atrial Rate : 067 BPM P-R Int : 176 ms QRS Dur : 084 ms QT Int : 426 ms P-R-T Axes : 058 055 114 degrees QTc Int : 450 ms Normal sinus rhythm T wave abnormality, consider anterolateral ischemia Abnormal ECG When compared with ECG of 28-JUN-2021 04:10, MANUAL COMPARISON REQUIRED, DATA IS UNCONFIRMED Confirmed by JUAN MARR, BRUCE ([id number]), department editor AMADO RASHID ([id number]) on 06/30/2021 8:16:29 AM Referred By: Lorraine Quinonez Confirmed By:BRUCE MARTINEZ MD
[2021-06-28] MEDS: 0.9% Normal Saline 1,000 ML 100 ML IV (04:10)
[2021-06-28 04:15] LABS: Troponin-I HS 3859 pg/mL (3.0-78.0)
[2021-06-28] MEDS: Baclofen 10 MG Tablet 20 MG PO ×3 (05:41→22:12)
[2021-06-28] MEDS: Gabapentin 300 MG Capsule 900 MG PO ×3 (05:41→22:11)
[2021-06-28] MEDS: Aspirin E.C. 81 MG Tablet PO (07:17)
[2021-06-28 07:19] LABS: Absolute Lymphocyte Count 2.53 X10^3/uL (0.83-4.51); Absolute Neutrophil Count 8.4 X10^3/uL (2.0-7.7); Basophil# 0.05 X10^3/uL; Basophil% 0.4 % (0-1); Eosinophil# 0.25 X10^3/uL; Eosinophils% 2.1 % (0-5); Hematocrit 52.1 % (40-54); Hemoglobin 16.7 g/dL (13.0-16.5); Lymphocyte # 2.53 X10^3/ul (0.83-4.51); Lymphocyte % 20.9 % (19-41); Mean Corp Hgb Conc 32.1 g/dL (32-36); Mean Corpuscular Hgb 28.4 pg (27.0-32.0); Mean Corpuscular Volume 88.5 fL (80-94); Mean Platelet Vol. 9.8 fl (6.2-12.0); Monocyte# 0.84 X10^3/uL; Monocyte% 6.9 % (0-10); NRBC Flagged by Analyzer 0 % (0-5); Neutrophil # 8.36 X10^3/uL (2.7-7.7); Neutrophil % 69.2 % (47-70); Platelet Count 278 K/mm3 (150-450); RBC Distribution Width CV 15.9 % (11.6-14.6); RBC Distribution Width SD 51.3 fl (35.1-43.9); Red Blood Count 5.89 M/mm3 (4.6-6.2); White Blood Count 12.1 K/mm3 (4.4-11.0)
--- NOTE | 2021-06-28 07:19 | CON.PCM.CA_ITS ---
Assessment & Plan Assessment/Plan (1) Non-ST elevated myocardial infarction (non-STEMI): PLAN: Patient presents with chest pain and has a non-ST elevation myocardial infarction. He does have risk factors with hypertension and tobacco use. At this point I would recommend that the patient undergo a cardiac catheterization. The risk benefits alternatives have been explained to him he understands and agrees to proceed. Would institute aspirin High intensity statin Low-dose beta-stanley Addendum: Cardiac catheterization demonstrated normal left main coronary artery. Left anterior descending artery with proximal 90% calcified stenotic lesion. Left circumflex artery nondominant with 50% mid stenosis. Dominant right coronary artery with proximal eccentric 40% stenosis. Left ventricular systolic function noted to be approximately 40% with severe hypokinesis of the anterior wall apex and inferior apical wall. Based on the above angiographic findings the patient will be considered for PCI of the proximal LAD (2) Benign essential hypertension: PLAN: He does have a history of hypertension. This will be aggressively treated medically with KELLY inhibitor's. HPI Consult Data Date of Consult: 06/28/21 HPI Narrative HPI Narrative: KALEN GAVIN, is a 61 M who presents to the emergency room yesterday with chest discomfort described as a heaviness across his chest and radiating to his shoulder. He was mildly diaphoretic. No dizziness no vomiting no diarrhea. This is the first episode of such discomfort. He does have a history of hypertension and tobacco use. He has not had any paroxysmal nocturnal dyspnea and no pedal edema. He has been paraplegic for almost 10 years likely from a viral infection. He has not had any previous cardiac issues. In the emergency room an EKG was done which was noted to be normal cardiac enzymes were noted to be mildly abnormal. This subsequently became quite abnormal. His EKG this morning demonstrates T wave inversions in the anterior leads. He denies any cardiac symptoms at this time. [facility] Medical History Acute paralytic poliomyelitis, wild virus, indigenous Anxiety and depression Benign essential hypertension Chest pain Chronic indwelling L[place] catheter Depression Heavy alcohol use Neurogenic bladder Smoker Tobacco use Home Medications baclofen 20 mg PO TID 02/26/13 [History Last Taken 06/27/21] multivitamin with folic acid [Thera] 1 tab PO LUNCH 02/26/13 [History Last Taken 06/27/21] gabapentin 900 mg PO TID 04/19/13 [History Last Taken 06/27/21] nortriptyline 100 mg PO QHS 01/19/19 [History Last Taken 06/26/21] levofloxacin 500 mg PO DAILY #7 tab 01/21/19 [Rx Last Taken Unknown] Allergy/AdvReac Type Severity Reaction Status Date / Time No Known Allergies Allergy Verified 06/28/21 00:03 Family History Father CVA (cerebral vascular accident) Heart disease Myocardial infarction Surgical History History of suprapubic catheter Hx of colostomy S/P appendectomy Status post osteotomy Social History household members: spouse Smoking Status: Light Smoker (<10/day) alcohol intake: former substance use type: marijuana ROS Constitutional Constitutional: Denies fever(s) or weight loss Eyes Eyes: Reports systems reviewed and no addt'l complaints, except as documented ENT HEENT: Reports systems reviewed and no addt'l complaints, except as documented Cardiovascular Cardiovascular: Reports chest pain at rest; Denies chest pain with activity, dyspnea at rest, dyspnea on exertion, edema, palpitations or paroxysmal nocturnal dyspnea Respiratory/Chest Respiratory/Chest: Denies dyspnea on exertion, productive cough, shortness of breath at rest or shortness of breath with exertion Gastrointestinal Gastrointestinal: Denies change in bowel habits, nausea, vomiting or weight changes Genitourinary Genitourinary: Denies difficulty urinating Musculoskeletal Musculoskeletal: Reports joint stiffness and muscle weakness Integumentary Integumentary: Denies lesions Neurologic Neurologic: Reports other Details: Paraplegia ; Denies dizziness or syncope Psychiatric Psychiatric: Denies anxiety Endocrine Endocrinology: Denies excessive sweating or fatigue Hematologic/Lymphatic Hematologic/Lymphatic: Denies anemia Allergic/Immunologic Allergic/Immunologic: Denies seasonal rhinorrhea Physical Exam Const alert, oriented x3 and no apparent distress General Appearance: cooperative HEENT hearing grossly normal bilaterally Head and Scalp: atraumatic Eyes EOMs intact bilaterally Neck General: normal visual inspection Chest inspection of chest normal and palpation of chest normal Resp normal respiratory effort Auscultation: clear to auscultation bilaterally Cardio regular rate, regular rhythm, S1 normal heart sound and S2 normal heart sound Jugular Venous Distention: JVD GI normal to inspection, nondistended, normoactive bowel sounds Extremity normal capillary refill and no pedal edema Peripheral Pulses: Yes pulses 2+ throughout and femoral pulses present Skin no rashes or lesions noted Neuro oriented x3 and CN's II-XII intact bilaterally Neuro Narrative: Patient is noted to be a paraplegic with no distal tendon reflexes noted in the lower extremities. Psych Appearance: grossly normal and appropriate Risk Stratification Risk Stratification Applicable: Yes Age >/= 65: No >/= 3 CAD Risk Factors (HTN, HLD, DM, family hx of CAD, or current smoker): No Aspirin Use in the Past 7 Days: No Severe Angina (>/= episodes in 24 hours): Yes EKG ST Changes >/= 0.5mm: No Positive Cardiac Marker: Yes REZA Risk Stratification Score: 2 REZA % Risk: 8% Risk Objective Data Vital Signs: Vital Signs Temp Pulse Resp BP Pulse Ox 96.7 F L 71 18 128/91 H 97 06/28/21 04:00 06/28/21 04:42 06/28/21 04:00 06/28/21 04:00 06/28/21 04:00 Oxygen Delivery Method Room Air Weight: 161 lb 9.581 oz Body Mass Index (BMI) 23.9 Intake & Output: Intake and Output for Last 24 Hours 06/26/21 06/27/21 06/28/21 23:59 23:59 23:59 Intake Total 50 / 50 Output Total 350 / 350 Balance -300 / -300 Lab / Micro Data Result Diagrams: 06/28/21 07:05 06/28/21 07:05 Labs: Laboratory Results - last 24 hr 06/28/21 00:23: WBC 13.3 H, RBC 5.65, Hgb 16.3, Hct 48.1, MCV 85.1, MCH 28.8, MCHC 33.9, RDW Std Deviation 48.6 H, RDW Coeff of Bhanu 15.6 H, Plt Count 285, MPV 9.5, Immature Gran % (Auto) 0.400, Neut % (Auto) 60.2, Lymph % (Auto) 28.2, [place] % (Auto) 7.8, Eos % (Auto) 2.9, Baso % (Auto) 0.5, Absolute Neuts (auto) 8.0 H, Absolute Lymphs (auto) 3.74, Nucleated RBC % 0 06/28/21 00:23: Sodium 138, Potassium 4.3, Chloride 108 H, Carbon Dioxide 26.0, Anion Gap 4 L, BUN 18, Creatinine 0.82, Estim Creat Clear Calc 95.80, Est GFR (MDRD) Af Amer 122, Est GFR (MDRD) Non-Af 101, BUN/Creatinine Ratio 21.8 H, Glucose 107 H, Calcium 8.9, Troponin I High Sens 363 H* 06/28/21 00:23: Magnesium 2.1 06/28/21 03:17: Troponin I High Sens 3859 H* Cardiology Labs/Tests 06/28/21 00:23: WBC 13.3 H, RBC 5.65, Hgb 16.3, Hct 48.1, MCV 85.1, MCH 28.8, MCHC 33.9, Plt Count 285, MPV 9.5, Immature Gran % (Auto) 0.400, Neut % (Auto) 60.2, Lymph % (Auto) 28.2, [place] % (Auto) 7.8, Eos % (Auto) 2.9, Baso % (Auto) 0.5, Absolute Neuts (auto) 8.0 H, Nucleated RBC % 0 06/28/21 00:23: Sodium 138, Potassium 4.3, Chloride 108 H, Carbon Dioxide 26.0, Anion Gap 4 L, BUN 18, Creatinine 0.82, Est GFR (MDRD) Af Amer 122, Est GFR (MDRD) Non-Af 101, BUN/Creatinine Ratio 21.8 H, Glucose 107 H, Calcium 8.9 06/28/21 00:23: Magnesium 2.1 Rhythm: EKG: Normal sinus rhythm initially with follow-up EKG demonstrating normal sinus rhythm with T wave inversions in the anterior leads ECHO: Stress Test: Cardiac Cath: PCI: CT Surgery: Holter monitor: EPS: PPM: CXR: Chest CT Scan: Radiography Diagnostic Testing: Radiology Impression Chest X-Ray 06/28/21 00:16 IMPRESSION: Minimal left basilar atelectasis. Otherwise no acute cardiopulmonary disease. Electronically Signed: Mari Ferro MD at 1:14 EST ,
[2021-06-28 07:44] LABS: ALB/GLOB Ratio 0.7 RATIO (0.9-2.4); AST(SGOT) 22 U/L (15-37); Alanine Aminotransfer ALT/SGPT 20 U/L (16-61); Albumin, Serum 2.9 g/dL (3.2-5.0); Alkaline Phosphatase 165 U/L (45-117); Anion Gap 5 (5-15); BUN 16 mg/dL (7-18); BUN/Creat Ratio 21.9 RATIO (10-20); Chloride 107 mmol/L (98-107); Cholesterol 142 mg/dL (200); Creatinine, Serum 0.73 mg/dL (0.70-1.30); EST Glomerular Filtration Rate 116 mL/min (>60); Est Glom Filt Rate - Afr Amer 141 mL/min (>60); Estimated Creatinine Clearance 104.11 ml/min; Globulin 4.3 g/dL (2.2-4.2); Glucose 108 mg/dL (74-106); High Density Lipoprotein 39 mg/dL; Potassium 3.9 mmol/L (3.5-5.1); Protein, Total 7.2 g/dL (6.4-8.2); Sodium Level 137 mmol/L (136-145); Triglycerides 141 mg/dL; Very Low Density Lipoprotein 28 mg/dL (5-40)
[2021-06-28 07:56] LABS: Troponin-I HS 3963 pg/mL (3.0-78.0)
--- NOTE | 2021-06-28 08:28 | CL.D_ITS ---
Patient Name: KALEN GAVIN Study Date: 06/28/2021 Performing: Alberto Candelario MD Ht: 69 inches 175 cm : 1960 Wt: 161.1 lbs 73 kg Age: 61 Gender: male BSA: 1.88 PROCEDURE(S) PERFORMED DC01-(90903)LHC/COR/LV CLINICAL PROFILE AND INDICATIONS Indications: Suspected CAD Heart Failure: None Stress/Imaging Stress/Image Study Performed: No CONCLUSIONS Coronary disease with severe proximal LAD stenosis and moderate disease noted in the circumflex and r ight coronary arteries which are nonobstructive. Moderate left ventricular systolic dysfunction note d. RECOMMENDATIONS Referred for immediate PCI DESCRIPTION OF PROCEDURE The patient arrived to the procedure lab. The risks and benefits of the procedure as well as a full d escription of our services here and current unavailability of surgical backup were fully explained to the patient and/or their significant other prior to the catheterization. The Timeout was completed, verifying the correct patient and procedure. The patient's procedural site was prepped and draped in the usual fashion. Local anesthetic was given subcutaneously to right radial region with Lidocaine 2% . Using a modified Seldinger technique, arterial access was obtained via the right radial artery, a 6 Fr sheath was inserted. Right Coronary Artery selective angiography was then performed in multiple v iews using a 5 Fr. 4.0 [place] catheter. Left Coronary Artery selective angiography was performed in mu ltiple views using a 5 Fr. JL3.5 catheter. Left Ventriculography was performed in ESPARZA projection usin g a 5 Fr. Pigtail catheter. LV to AO pullback pressures were then recorded. CORONARY ANGIOGRAPHY DOMINANCE: Right Dominant LEFT HEART ASSESSMENT Left Ventricular Ejection Fraction: by LV Gram 40 % Abnormal LV wall motion. Anterior Hypokinesis - Severe Depressed Left Ventricular systolic function LEFT MAIN: Mild calcification, No significant disease noted LEFT ANTERIOR DESCENDING ARTERY: Moderately calcified proximal LAD with 90% eccentric proximal stenos is and mid 50% stenosis noted CIRCUMFLEX ARTERY: Moderate luminal irregularities up to 50% RIGHT CORONARY ARTERY: Eccentric proximal 40% stenosis and mild diffuse disease of the rest of the ve ssel COMPLICATIONS PROCEDURE MEDICATIONS Fentanyl 50 mcg IV Versed 1 mg IV Versed 1 mg IV Versed 1 mg IV Oxygen: 2 L/min via nasal cannula Brilinta 180 mg PO @ 06/28/2021 08:22:31 Heparin given IA 06/28/2021 08:01:46 Verapamil 2.5mg, Ntg 100mcgs, 3000 units of Heparin given IA 06/28/2021 08:01:46 SUMMARY OF HEMODYNAMIC DATA Time AIR REST ECG 07:36:46 Art 132/78 (98) 07:55:34 AO 93/73 (83) SA 08:03:48 LV 98/7, 12 08:16:29 LV 104/7, 10 08:16:35 LV 102/11, 14 08:17:12 LVp 100/11, 13 08:17:15 AOp 95/64 (79) 08:17:20 Signed By Alberto Candelario MD On 06/28/2021 08:27:47 Alberto Candelario MD
--- NOTE | 2021-06-28 10:39 | CL.I_ITS ---
Patient Name: KALEN GAVIN Study Date: 06/28/2021 Performing: Brandon Costello MD Ht: 69 inches 175 cm : 1960 Wt: 161.1 lbs 73 kg Age: 61 Gender: male BSA: 1.88 PROCEDURE(S) PERFORMED IC12-(28965/C9600)KANDI W/WO PTCA, SINGLE CORONARY ARTERY CLINICAL PROFILE AND CO-MORBIDITIES Indications: Suspected CAD Heart Failure: None Stress/Imaging Stress/Image Study Performed: No CONCLUSIONS Successful KANDI to pLAD RECOMMENDATIONS DESCRIPTION OF PROCEDURE The patient arrived to the procedure lab. The risks and benefits of the procedure as well as a full d escription of our services here and current unavailability of surgical backup were fully explained to the patient and/or their significant other prior to the catheterization. The Timeout was completed, verifying the correct patient and procedure. The patient's procedural site was prepped and draped in the usual fashion. Local anesthetic was given subcutaneously to right radial region with Lidocaine 2% Using a modified Seldinger technique,arterial access was obtained via the right radial artery, a 6Fr sheath was inserted. Right Coronary Artery selective angiography was then performed in multiple view s using a 5 Fr. 4.0 [place] catheter. Left Coronary Artery selective angiography was performed in multi ple views using a 5 Fr. JL3.5 catheter. Left Ventriculography was performed in ESPARZA projection using a 5 Fr. Pigtail catheter. LV to AO pullback pressures were then recorded.The images were reviewed and options discussed. A decision was then made to proceed with an Intervention, IVUS or oth er adjunct procedure. XB 3 Guide catheter was inserted and engaged into the LCA. BMW Guide wire was advanced to the LAD . 3 X 15 EMERGE Balloon catheter was inserted. Balloon catheter was advanced across lesion in the LAD , proximal. PTCA balloon inflated at 6 atms for 12 secs. PTCA balloon inflated at 10 atms for 22 secs . Angiogram performed post balloon dilatation. ORSIRO 3 X 18 Drug Eluting stent was inserted. Drug El uting stent was advanced across the lesion in the LAD, mid. Angiogram performed post stent deployment . The arterial sheath was pulled and a TR Band was applied for hemostasis INTERVENTION INFORMATION LESION SITE: LAD (Proximal) Lesion Complexity: High/C, chronic total occlusion: No, lesion at bifurcation: No, thrombus present: No, lesion length: 16 mm, culprit lesion: Yes, Previously treated lesion: No Pre Stenosis: 90 % Pre intervention REZA flow: 2 PROCEDURE: Drug Eluting Stent with pre dilatation. Post Stenosis: 0 % Post intervention REZA flow: 3 Lesion Devices: Cardinal 6 Fr XB3.0 100cm Guide Catheter Rajan .014 BMW Jamul Straight 190cm Gary Sci EMERGE MR 3.00x15 BALLOON Biotronik Orsiro [place] MR KANDI 3.0x18 COMPLICATIONS No Complications PROCEDURE MEDICATIONS Fentanyl 50 mcg IV Versed 1 mg IV Versed 1 mg IV Versed 1 mg IV Oxygen: 2 L/min via nasal cannula Brilinta 180 mg PO @ 06/28/2021 08:22:31 Heparin given IA 06/28/2021 08:01:46 Heparin 6000 unit(s) IV 06/28/2021 08:59:21 Verapamil 2.5mg, Ntg 100mcgs, 3000 units of Heparin given IA 06/28/2021 08:01:46 IV Bolus: .9 NaCl 300 ml total 06/28/2021 09:16:45 SUMMARY OF HEMODYNAMIC DATA Time AIR REST ECG 07:36:46 Art 132/78 (98) 07:55:34 AO 93/73 (83) SA 08:03:48 LV 98/7, 12 08:16:29 LV 104/7, 10 08:16:35 LV 102/11, 14 08:17:12 LVp 100/11, 13 08:17:15 AOp 95/64 (79) 08:17:20 AO 148/87 (114) 09:03:07 Signed By Brandon Costello MD On 06/28/2021 10:38:20 Brandon Costello MD
--- NOTE | 2021-06-28 11:20 | CASEMGMT ---
ABISAI MENDES assessment: Face to Face with patient for initial transition planning/care coordination assessment. ABISAI MENDES introduced self and role at [facility], pt voices understanding and consents to assessment. Pt is lying in bed in no distress on room air. Pt is A/Ox4 and answers all questions appropriately. Care providers, pharmacy, and demographics verified. Presentation: Chest pain that started at 1500, not better or worse Admitting dx: CP, NSTEMI PCP: [facility] Specialists: Pt states no specialists. Preferred Pharmacy: [facility] Insurance: VA/AeR Prescription Benefit: VA/AeR Living Will/HPOA: Pt has LW/HPOA and is aware that they are on file at [facility]. Pt's sister, Marisela, is listed as HPOA. LNOK: Marisela Castellano, sister/HPOA; Coco Ruffin, mother Living Arrangements: Pt lives with [id number] who is MRDD and assists pt with care on 1st floor of 2 story home with ramp entrance. Pt's ex- lives in the 2nd floor apt of his home and can assist, if needed. Pt states has mostly been bed bound d/t hip concerns. Transportation: [place] transport/Pt states has a w/c access van but has not been in w/c much d/t hip DME/HHC: Pt has the following DME: elizabeth lift, hospital bed with special mattress, ramp, and w/c. Pt states no need for any further DME. Pt states has been to [facility] IP rehab in past and currently has [facility] SN and aides. SN comes MWF(also as needed) and aide comes [facility] for 3 hours/day. Pt states no concerns with going home at time of discharge. Pt is disabled. Pt states smokes 3 cigarettes daily but does not drink ETOH. Pt states no further concerns/needs. CM to follow for any further discharge planning/needs. Advised pt to ask for CM if any further questions/concerns/needs arise, voices understanding. Pt Goal: Home Plan: [place] w/ [facility] [place] ABISAI MENDES
[2021-06-28] MEDS: 0.9% Normal Saline 1,000 ML 80 ML IV (12:56)
--- NOTE | 2021-06-28 13:03 | PCM.HOSP.N ---
Hospitalist Note Patient was seen and examined briefly today, he underwent a cardiac catheterization with a PCI and insertion of a drug-eluting stent in the LAD. Patient also has some coronary artery disease that was not addressed interventionally today, I talked briefly with cardiology and they stated that they felt the patient could be treated medically. The other abnormalities noted today were nonobstructive in nature.
[2021-06-28] MEDS: Ondansetron 4 MG/2 ML Vial IV (13:13)
--- NOTE | 2021-06-28 14:06 | CRPHASE1_ITS ---
Patient Communication PHII Cardiac Rehab Discussed with Patient:: Yes Guide to Cardiac Rehab Given to Patient:: Yes Cardiac Rehab Facility Choice List Given to Patient:: Yes Choice Program [facility] PHII:: Communication Given to CR, Refer to [facility] Varnishing Machine Operator:: Zackary Costello - Intervention Dr Flores Phase II Cardiac Rehab:: Yes - pt is paralyzed from chest down and states is unable to exercise Sessions:: 36 sessions - 3 days/wk, 12 weeks Cardiac Rehabilitation Info Cardiac Rehabilitation Program Information: Cardiac Rehabilitation is important for patients like you who are recovering from a heart problem. Cardiac rehabilitation programs are recognized as integral to the continued care of the patient with coronary heart disease. The cardiac rehabilitation program is designed to optimize a patient's physical, psychological, and social functioning. Health health care law specialist work in cardiac rehabilitation programs and assist you with getting the treatments you need to get stronger and healthier - like exercise, healthy eating habits, and medications. Cardiac rehabilitation has been show to help people with heart problems live longer and have better life enjoyment than people who do not go to cardiac rehabilitation. Please contact the Cardiac Rehabilitation Program at [facility] at in two weeks if you have not heard from them.
--- NOTE | 2021-06-28 14:09 | CRPH1.INSTRU ---
General Education CAD and cardiac anatomy and function:: Needs reinforcement Explanation of diagnoses and procedures:: Needs reinforcement Sign/Symptoms of DC:: Needs reinforcement Antiplatelet therapy: Needs reinforcement Proper use of NTG-SL: Needs reinforcement Emergency procedures and activation of EMS: Needs reinforcement Compliance of all prescribed medications: Needs reinforcement Smoking Nicotine/Smoking Response Code:: Needs reinforcement Dyslipidemia Dyslipidemia Response Code:: Needs reinforcement Overweight/Obesity Patient Overweight/Obesity Risk Factors Are:: BMI Normal [18-25 & < 65 years old] Overweight/Obesity:: Needs reinforcement Hypertension Recommendations Include:: Maintain BP <130/85, DASH dietary guidelines, Decrease/maintain normal body weight, Moderation of ETOH Hypertension:: Needs reinforcement Heart Disease Patient Heart Disease Risk Factors Are:: Family history of heart disease < 65 years old Heart Disease Response Code:: Needs reinforcement Diabetes Patient Diabetes Risk Factors Are:: No documented hx of diabetes Diabetes:: Needs reinforcement Metabolic Syndrome Metabolic Syndrome Response Code:: Needs reinforcement Sedentary Patient Sedentary Risk Factors Are:: Lack of regular exercise Sedentary Response Code:: Needs reinforcement Stress Patient Stress Risk Factors Are:: Patient denies stress as a risk factor Stress Response Code:: Needs reinforcement
--- NOTE | 2021-06-28 14:45 | CASEMGMT ---
Call to [facility] and updated on pt admit and possible d/c date tomorrow, voices understanding. Clinicals faxed to [place] with [facility] order. Nedra BARONE CM
[2021-06-28] MEDS: Multivitamins,Therapeutic Tablet 1 TABLET PO (14:49)
[2021-06-28] MEDS: Carvedilol 6.25 MG Tablet PO ×2 (14:52→22:12)
[2021-06-28] MEDS: Doxycycline 100 MG CAPSULE PO (22:11)
[2021-06-28] MEDS: Nortriptyline 25 MG Capsule 100 MG PO (22:12)
[2021-06-28] MEDS: Atorvastatin Calcium 80 MG Tablet PO (22:12)
[2021-06-28] MEDS: TICAGRELOR 90 MG TABLET PO (22:12)
[2021-06-29 03:11] VITALS: PULSE 88
[2021-06-29 03:55] VITALS: BP 126/89; PULSE 92; RESP 16; TEMP 36.3; O2SAT 97
[2021-06-29 05:03] LABS: Hematocrit 53.4 % (40-54); Hemoglobin 18.1 g/dL (13.0-16.5); Mean Corp Hgb Conc 33.9 g/dL (32-36); Mean Corpuscular Hgb 29.4 pg (27.0-32.0); Mean Corpuscular Volume 86.7 fL (80-94); Mean Platelet Vol. 9.8 fl (6.2-12.0); Platelet Count 283 K/mm3 (150-450); Red Blood Count 6.16 M/mm3 (4.6-6.2); White Blood Count 14.9 K/mm3 (4.4-11.0)
[2021-06-29 05:12] LABS: Scan Indicated on CBC? Y/N YES- FLAGS NOTED
[2021-06-29] MEDS: Baclofen 10 MG Tablet 20 MG PO (05:29)
[2021-06-29] MEDS: Gabapentin 300 MG Capsule 900 MG PO (05:29)
[2021-06-29 05:37] LABS: ALB/GLOB Ratio 0.7 RATIO (0.9-2.4); AST(SGOT) 36 U/L (15-37); Alanine Aminotransfer ALT/SGPT 23 U/L (16-61); Albumin, Serum 3.1 g/dL (3.2-5.0); Alkaline Phosphatase 167 U/L (45-117); Anion Gap 7 (5-15); BUN 13 mg/dL (7-18); BUN/Creat Ratio 19.4 RATIO (10-20); Calcium,Total 9.5 mg/dL (8.5-10.1); Chloride 105 mmol/L (98-107); Creatinine, Serum 0.67 mg/dL (0.70-1.30); EST Glomerular Filtration Rate 129 mL/min (>60); Est Glom Filt Rate - Afr Amer 156 mL/min (>60); Estimated Creatinine Clearance 113.43 ml/min; Globulin 4.5 g/dL (2.2-4.2); Glucose 112 mg/dL (74-106); Potassium 3.9 mmol/L (3.5-5.1); Protein, Total 7.6 g/dL (6.4-8.2); Sodium Level 136 mmol/L (136-145)
[2021-06-29 06:59] VITALS: PULSE 107
--- NOTE | 2021-06-29 07:14 | PN.CARD_ITS ---
Subjective Subjective Patient seen and evaluate. Objective Data Vital Signs: Vital Signs Temp Pulse Resp BP Pulse Ox 97.3 F L 92 16 126/89 H 97 06/29/21 03:55 06/29/21 03:55 06/29/21 03:55 06/29/21 03:55 06/29/21 03:55 Oxygen Delivery Method Room Air Weight: 163 lb 2.273 oz Body Mass Index (BMI) 23.9 Intake & Output: Intake and Output for Last 24 Hours 06/27/21 06/28/21 06/29/21 23:59 23:59 23:59 Intake Total 1655.33 / 1655.33 240 / 240 Output Total 2300 / 2300 900 / 900 Balance -644.67 / -644.67 -660 / -660 Lab / Micro Data Result Diagrams: 06/29/21 04:44 06/29/21 04:44 Labs: Laboratory Results - last 24 hr 06/28/21 07:05: WBC 12.1 H, RBC 5.89, Hgb 16.7 H, Hct 52.1, MCV 88.5, MCH 28.4, MCHC 32.1 D, RDW Std Deviation 51.3 H, RDW Coeff of Bhanu 15.9 H, Plt Count 278, MPV 9.8, Immature Gran % (Auto) 0.500, Neut % (Auto) 69.2, Lymph % (Auto) 20.9, [place] % (Auto) 6.9, Eos % (Auto) 2.1, Baso % (Auto) 0.4, Absolute Neuts (auto) 8.4 H, Absolute Lymphs (auto) 2.53, Nucleated RBC % 0 06/28/21 07:05: Sodium 137, Potassium 3.9, Chloride 107, Carbon Dioxide 25.0, Anion Gap 5, BUN 16, Creatinine 0.73, Estim Creat Clear Calc 104.11, Est GFR (MDRD) Af Amer 141, Est GFR (MDRD) Non-Af 116, BUN/Creatinine Ratio 21.9 H, Glucose 108 H, Calcium 9.0, Total Bilirubin 0.30, AST 22, ALT 20, Alkaline Phosphatase 165 H, Total Protein 7.2, Albumin 2.9 L, Globulin 4.3 H, Albumin/Globulin Ratio 0.7 L, Triglycerides 141, Cholesterol 142, LDL Cholesterol 75, VLDL Cholesterol 28, HDL Cholesterol 39 L 06/28/21 07:05: Troponin I High Sens 3963 H* 06/29/21 04:44: WBC 14.9 H, RBC 6.16, Hgb 18.1 H*, Hct 53.4, MCV 86.7, MCH 29.4, MCHC 33.9 D, RDW Std Deviation 49.0 H, RDW Coeff of Bhanu 16.0 H, Plt Count 283, MPV 9.8, Diff Path Review September06/29/21 04:44: Sodium 136, Potassium 3.9, Chloride 105, Carbon Dioxide 24.0, Anion Gap 7, BUN 13, Creatinine 0.67 L, Estim Creat Clear Calc 113.43, Est GFR (MDRD) Af Amer 156, Est GFR (MDRD) Non-Af 129, BUN/Creatinine Ratio 19.4, Glucose 112 H, Calcium 9.5, Total Bilirubin 0.60, AST 36, ALT 23, Alkaline Phosphatase 167 H, Total Protein 7.6, Albumin 3.1 L, Globulin 4.5 H, Albumin /Globulin Ratio 0.7 L Cardiology Labs/Tests 06/28/21 07:05: WBC 12.1 H, RBC 5.89, Hgb 16.7 H, Hct 52.1, MCV 88.5, MCH 28.4, MCHC 32.1 D, Plt Count 278, MPV 9.8, Immature Gran % (Auto) 0.500, Neut % (Auto) 69.2, Lymph % (Auto) 20.9, [place] % (Auto) 6.9, Eos % (Auto) 2.1, Baso % (Auto) 0.4, Absolute Neuts (auto) 8.4 H, Nucleated RBC % 0 06/28/21 07:05: Sodium 137, Potassium 3.9, Chloride 107, Carbon Dioxide 25.0, Anion Gap 5, BUN 16, Creatinine 0.73, Est GFR (MDRD) Af Amer 141, Est GFR (MDRD) Non-Af 116, BUN/Creatinine Ratio 21.9 H, Glucose 108 H, Calcium 9.0, Total Bilirubin 0.30, Triglycerides 141, Cholesterol 142, LDL Cholesterol 75, VLDL Cholesterol 28, HDL Cholesterol 39 L 06/29/21 04:44: WBC 14.9 H, RBC 6.16, Hgb 18.1 H*, Hct 53.4, MCV 86.7, MCH 29.4, MCHC 33.9 D, Plt Count 283, MPV 9.8 06/29/21 04:44: Sodium 136, Potassium 3.9, Chloride 105, Carbon Dioxide 24.0, Anion Gap 7, BUN 13, Creatinine 0.67 L, Est GFR (MDRD) Af Amer 156, Est GFR (MDRD) Non-Af 129, BUN/Creatinine Ratio 19.4, Glucose 112 H, Calcium 9.5, Total Bilirubin 0.60 Rhythm: EKG: ECHO: Stress Test: Cardiac Cath: PCI: CT Surgery: Holter monitor: EPS: PPM: CXR: Chest CT Scan: Radiography Diagnostic Testing: Radiology Impression Echocardiogram 06/28/21 03:38 Interpretation Summary Normal LV size. Moderately severe segmental systolic dysfunction (see wall motion). The estimated ejection fraction is 35 %. Stage 1 diastolic dysfunction. Contrast injection was performed. Ordering Physician: Lorraine Quinonez Referring Physician: [facility] Performed By: Elizabeth Sorto, MAGALY, RVT Physical Exam Const alert, oriented x3 and no apparent distress General Appearance: cooperative HEENT hearing grossly normal bilaterally Head and Scalp: atraumatic Eyes EOMs intact bilaterally Neck General: normal visual inspection Chest inspection of chest normal and palpation of chest normal Resp normal respiratory effort Auscultation: clear to auscultation bilaterally Cardio regular rate, regular rhythm, S1 normal heart sound and S2 normal heart sound Jugular Venous Distention: JVD GI normal to inspection, nondistended, normoactive bowel sounds Extremity no pedal edema Peripheral Pulses: Yes femoral pulses present Skin no rashes or lesions noted Neuro oriented x3 and CN's II-XII intact bilaterally Neuro Narrative: Paraplegic Psych Appearance: grossly normal and appropriate Assessment & Plan Assessment/Plan (1) Non-ST elevated myocardial infarction (non-STEMI): PLAN: Patient presents with chest pain and has a non-ST elevation myocardial infarction. He does have risk factors with hypertension and tobacco use. Would institute aspirin High intensity statin Low-dose beta-stanley Cardiac catheterization demonstrated normal left main coronary artery. Left anterior descending artery with proximal 90% calcified stenotic lesion. Left circumflex artery nondominant with 50% mid stenosis. Dominant right coronary artery with proximal eccentric 40% stenosis. Left ventricular systolic function noted to be approximately 40% with severe hypokinesis to akinesis of the anterior wall apex and inferior apical wall. Based on the above angiographic findings the patient underwent angioplasty and stenting of the left anterior descending artery. The echocardiogram was reviewed and it demonstrated akinesis of the apex. I would therefore suggest that we add Eliquis 2.5 mg twice a day for a month. This will be in addition to the aspirin as well as the Brilinta. The patient can be discharged later today. (2) Benign essential hypertension: PLAN: He does have a history of hypertension. This will be aggressively treated medically with KELLY inhibitor's and beta-blockers.
[2021-06-29 07:19] VITALS: O2SAT 95
[2021-06-29 09:38] VITALS: BP 122/93; PULSE 103; RESP 16; TEMP 36.7; O2SAT 98
[2021-06-29] MEDS: TICAGRELOR 90 MG TABLET PO (09:41)
[2021-06-29] MEDS: Venlafaxine HCl 75 MG Tablet PO (09:41)
[2021-06-29] MEDS: Aspirin E.C. 81 MG Tablet PO (09:41)
[2021-06-29] MEDS: Lisinopril 5 MG Tablet PO (09:41)
[2021-06-29] MEDS: Carvedilol 6.25 MG Tablet PO (09:41)
[2021-06-29] MEDS: Doxycycline 100 MG CAPSULE PO (09:41)
[2021-06-29] MEDS: APIXABAN 2.5 MG TABLET PO (09:51)
--- NOTE | 2021-06-29 10:00 | EKG12_ITS ---
Test Reason : AM EKG Blood Pressure : / mmHG Vent. Rate : 096 BPM Atrial Rate : 096 BPM P-R Int : 156 ms QRS Dur : 086 ms QT Int : 398 ms P-R-T Axes : 051 075 123 degrees QTc Int : 502 ms Normal sinus rhythm ST & Marked T wave abnormality, consider anterolateral ischemia Prolonged QT Abnormal ECG When compared with ECG of 28-JUN-2021 11:35, MANUAL COMPARISON REQUIRED, DATA IS UNCONFIRMED Confirmed by JUAN MARR, BRUCE ([id number]), health editor AMADO RASHID ([id number]) on 06/30/2021 8:16:55 AM Referred By: Lorraine Quinonez Confirmed By:BRUCE MARTINEZ MD
--- NOTE | 2021-06-29 10:58 | DCINST_ITS ---
Discharge Instructions Diet Discharge Diet: Low fat / Low cholesterol Activity Discharge Activity: Return to Normal Activity Additional Activity Instructions:: Follow-up post cath instructions Dressing / Incision Call your doctor if your incision/area has: Continuous Slow Oozing, Sudden Increased Bleeding, Increased Pain/ Swelling, Increased Redness, Foul Smelling Discharge and Swelling at the incision site Call your doctor if you observe: Shortness of breath, Dizziness and Chest pain Follow Up Care Test Results: Test results from this visit will be discussed in further detail at your follow-up appointment, if applicable. Discharge Plan Admission Admit Date/Time: 06/28/21 01:27 Primary Reason for Your Visit: NSTEMI Attending Provider: John Ponce Primary Care Provider: [facility],[place] Consulting Providers: Zackary Costello Discharge Orders/Prescriptions Prescriptions: New carvedilol 6.25 mg Tablet 6.25 mg PO BID 30 Days Qty: 60 RF: 0 aspirin 81 mg Tablet,Delayed Release (Dr/Ec) 81 mg PO BREAKFAST 30 Days Qty: 30 RF: 0 lisinopril 5 mg Tablet 5 mg PO DAILY 30 Days Qty: 30 RF: 0 Brilinta 90 mg Tablet 90 mg PO BID 30 Days Qty: 60 RF: 0 Eliquis 2.5 mg Tablet 2.5 mg PO BID 30 Days Qty: 60 RF: 0 rosuvastatin [Crestor] 10 mg tablet 10 mg PO DAILY Qty: 30 RF: 0 Continued baclofen 20 MG tablet 20 mg PO TID RF: 0 multivitamin with folic acid [Thera] 1 TABLET tablet 1 tab PO LUNCH RF: 0 gabapentin 100 MG capsule 900 mg PO TID RF: 0 nortriptyline 50 MG capsule 100 mg PO QHS RF: 0 ascorbic acid (vitamin C) [Vitamin C] 1,000 mg Tablet 1 g PO DAILY RF: 0 venlafaxine 75 mg Tablet 75 mg PO DAILY RF: 0 doxycycline monohydrate 100 mg Capsule 100 mg PO BID RF: 0 docusate sodium 100 mg Capsule 100 mg PO BID RF: 0 cholecalciferol (vitamin D3) [Vitamin D3] 50 mcg (2,000 unit) Capsule 50 mcg PO DAILY RF: 0 loratadine 10 mg Capsule 10 mg PO DAILY RF: 0 Discontinued rosuvastatin 5 mg Tablet 5 mg PO QHS RF: 0 Referrals / Follow Up: Andree,Alberto, MD [STAFF PHYSICIAN] - Within 2 Weeks (May see [employer]) [facility] [Primary [facility] - In 1 Week Disposition Disposition (needs filled in before D/C Order can be placed): Home, Self Care
[2021-06-29 11:00] VITALS: PULSE 112
--- NOTE | 2021-06-29 11:06 | PCM.DC.SUM ---
Documented by User: Stella Hernandez NP, [facility] 06/29/21 11:15 Providers Date of Admission: 06/28/21 Date of Discharge: 06/29/21 Primary Care Physician: [facility] Consultations 06/28/21 03:38 Consult: Cardiology Routine Consulting Provider: Zackary Costello Reason for Consult: NSTEMI, chest pain EMERGENT Consult: No MD Notified: Yes Date Notified: 06/28/21 Time Notified: 06:40 Method of Notification: Text Reason For Visit: CHEST PAIN, NON-STEMI Diagnosis Discharge Diagnosis (1) Non-ST elevated myocardial infarction (non-STEMI): Status: Acute Code(s): I21.4 - Non-ST elevation (NSTEMI) myocardial infarction (2) Benign essential hypertension: Status: Acute Code(s): I10 - Essential (primary) hypertension Medications at Discharge Home Medications baclofen 20 mg PO TID 02/26/13 multivitamin with folic acid [Thera] 1 tab PO LUNCH 02/26/13 gabapentin 900 mg PO TID 04/19/13 nortriptyline 100 mg PO QHS 01/19/19 ascorbic acid (vitamin C) [Vitamin C] 1 g PO DAILY 06/28/21 cholecalciferol (vitamin D3) [Vitamin D3] 50 mcg PO DAILY 06/28/21 docusate sodium 100 mg PO BID 06/28/21 doxycycline monohydrate 100 mg PO BID 06/28/21 loratadine 10 mg PO DAILY 06/28/21 venlafaxine 75 mg PO DAILY 06/28/21 apixaban [Eliquis] 2.5 mg PO BID 30 Days #60 tab 06/29/21 aspirin 81 mg PO BREAKFAST 30 Days #30 tab 06/29/21 carvedilol 6.25 mg PO BID 30 Days #60 tab 06/29/21 lisinopril 5 mg PO DAILY 30 Days #30 tab 06/29/21 rosuvastatin [Crestor] 10 mg PO DAILY #30 tab 06/29/21 ticagrelor [Brilinta] 90 mg PO BID 30 Days #60 tab 06/29/21 Hospital Course Operations None Procedures 2-D Echocardiogram and Cardiac catheterization Summary of Care Provided Hospital Course: Patient is a 61-year-old male admitted 06/28/2021 due to chest pain. 1. NSTEMI/CAD-status post angioplasty and stenting of the left anterior descending artery. Echocardiogram demonstrated EF 35%, stage I diastolic dysfunction, akinesis of the apex. Eliquis 2.5 mg twice daily for 1 month. Continue aspirin, statin, Brilinta. Initiated on carvedilol and lisinopril which can be titrated up as outpatient. Blood pressure currently stable. Follow-up with cardiology in 2 weeks. 2. Transverse myelitis with paraplegia, chronic catheter and ostomy-continue home regimen. 3. Depression/anxiety-previously on Cymbalta. No longer on regimen. 4. Tobacco dependence-patient states he is trying to quit. Provided support. Declines nicotine replacement patch at discharge. 5. History of heavy EtOH use-in remission. 6. Hypertension-initiated on carvedilol, lisinopril. 7. Hyperlipidemia-Home Crestor increased to 10 mg. Patient seen and examined prior to discharge. Physical assessment as noted below. Patient is stable for discharge with follow up recommendations as noted above. This patient was seen by MARCOS Pickering under the supervision of Dr. Ponce. Time spent examining patient, reviewing data and subsequent management of care: 16 Minutes Physical Exam Const alert, oriented x3 and no apparent distress Orientation / Consciousness: awake, oriented to person, oriented to place and oriented to time HEENT normocephalic and moist oral mucous membranes Eyes PERRL, EOMs intact bilaterally and conjunctivae normal Neck no lymphadenopathy Resp normal respiratory effort and clear to auscultation bilaterally Cardio regular rate, regular rhythm and no murmurs Peripheral Pulses: pulses 2+ throughout GI normal to inspection, nondistended, normoactive bowel sounds, non-tender and non-distended Extremity normal to inspection Skin no rashes or lesions noted Lesions: no lesions Rashes: no rashes Trauma: no lacerations or abrasions Neuro CN's II-XII intact bilaterally, no focal motor deficits, no sensory deficits noted and deep tendon reflexes 2+ bilaterally Neuro Narrative: Chronic paraplegia Psych mental status grossly normal and affect normal Weight / BMI Weight Weight: 163 lb 2.273 oz Body Mass Index (BMI) 23.9 ABG / Lab / Microbiology Data Result Diagrams: 06/29/21 04:44 06/29/21 04:44 Laboratory: Laboratory Results - last 24 hr 06/29/21 04:44: WBC 14.9 H, RBC 6.16, Hgb 18.1 H*, Hct 53.4, MCV 86.7, MCH 29.4, MCHC 33.9 D, RDW Std Deviation 49.0 H, RDW Coeff of Bhanu 16.0 H, Plt Count 283, MPV 9.8, Diff Path Review September foll 06/29/21 04:44: Sodium 136, Potassium 3.9, Chloride 105, Carbon Dioxide 24.0, Anion Gap 7, BUN 13, Creatinine 0.67 L, Estim Creat Clear Calc 113.43, Est GFR (MDRD) Af Amer 156, Est GFR (MDRD) Non-Af 129, BUN/Creatinine Ratio 19.4, Glucose 112 H, Calcium 9.5, Total Bilirubin 0.60, AST 36, ALT 23, Alkaline Phosphatase 167 H, Total Protein 7.6, Albumin 3.1 L, Globulin 4.5 H, Albumin/Globulin Ratio 0.7 L Radiography Diagnostic Testing: Radiology Impression Echocardiogram 06/28/21 03:38 Interpretation Summary Normal LV size. Moderately severe segmental systolic dysfunction (see wall motion). The estimated ejection fraction is 35 %. Stage 1 diastolic dysfunction. Contrast injection was performed. Ordering Physician: Lorraine Quinonez Referring Physician: [facility] Performed By: Elizabeth Sorto, MAGALY, RVT D/C Instructions Discharge Diet: Low fat / Low cholesterol Additional Activity Instructions: Follow-up post cath instructions Call your doctor if your incision/area has: Continuous Slow Oozing, Sudden Increased Bleeding, Increased Pain/ Swelling, Increased Redness, Foul Smelling Discharge and Swelling at the incision site Call your doctor if you observe: Shortness of breath, Dizziness and Chest pain Meaningful Use Info Meaningful Use Diagnoses (Choose all that apply): AMI AMI/Post PCI/Angioplasty Aspirin given w/in 24hrs of arrival?: Yes ASA at discharge?: Yes Statins at discharge?: Yes Vignesh/ARB at discharge?: Yes Beta Pedro at discharge?: Yes Done w/ Acute NH measure.: Yes Discharge Plan Admission Admit Date/Time: 06/28/21 01:27 Primary Reason for Your Visit: NSTEMI Attending Provider: John Ponce Primary Care Provider: [facility],[place] Consulting Providers: Zackary Costello Instructions Patient Instructions: Having Cardiac Catheterization, Cardiac Cath Transradial Discharge Orders/Prescriptions Prescriptions: New carvedilol 6.25 mg Tablet 6.25 mg PO BID 30 Days Qty: 60 RF: 0 aspirin 81 mg Tablet,Delayed Release (Dr/Ec) 81 mg PO BREAKFAST 30 Days Qty: 30 RF: 0 lisinopril 5 mg Tablet 5 mg PO DAILY 30 Days Qty: 30 RF: 0 Brilinta 90 mg Tablet 90 mg PO BID 30 Days Qty: 60 RF: 0 Eliquis 2.5 mg Tablet 2.5 mg PO BID 30 Days Qty: 60 RF: 0 rosuvastatin [Crestor] 10 mg tablet 10 mg PO DAILY Qty: 30 RF: 0 Continued baclofen 20 MG tablet 20 mg PO TID RF: 0 multivitamin with folic acid [Thera] 1 TABLET tablet 1 tab PO LUNCH RF: 0 gabapentin 100 MG capsule 900 mg PO TID RF: 0 nortriptyline 50 MG capsule 100 mg PO QHS RF: 0 ascorbic acid (vitamin C) [Vitamin C] 1,000 mg Tablet 1 g PO DAILY RF: 0 venlafaxine 75 mg Tablet 75 mg PO DAILY RF: 0 doxycycline monohydrate 100 mg Capsule 100 mg PO BID RF: 0 docusate sodium 100 mg Capsule 100 mg PO BID RF: 0 cholecalciferol (vitamin D3) [Vitamin D3] 50 mcg (2,000 unit) Capsule 50 mcg PO DAILY RF: 0 loratadine 10 mg Capsule 10 mg PO DAILY RF: 0 Discontinued rosuvastatin 5 mg Tablet 5 mg PO QHS RF: 0 Referrals / Follow Up: Alberto Candelario MD [STAFF PHYSICIAN] - Within 2 Weeks (May see [facility] [facility]] - In 1 Week Disposition Disposition (needs filled in before D/C Order can be placed): Home, Self Care Documented by User: Dr. John Ponce DO 06/29/21 19:03 Providers Date of Admission: 06/28/21 Reason For Visit: CHEST PAIN, NON-STEMI Medications at Discharge Home Medications baclofen 20 mg PO TID 02/26/13 multivitamin with folic acid [Thera] 1 tab PO LUNCH 02/26/13 gabapentin 900 mg PO TID 04/19/13 nortriptyline 100 mg PO QHS 01/19/19 ascorbic acid (vitamin C) [Vitamin C] 1 g PO DAILY 06/28/21 cholecalciferol (vitamin D3) [Vitamin D3] 50 mcg PO DAILY 06/28/21 docusate sodium 100 mg PO BID 06/28/21 doxycycline monohydrate 100 mg PO BID 06/28/21 loratadine 10 mg PO DAILY 06/28/21 venlafaxine 75 mg PO DAILY 06/28/21 apixaban [Eliquis] 2.5 mg PO BID 30 Days #60 tab 06/29/21 aspirin 81 mg PO BREAKFAST 30 Days #30 tab 06/29/21 carvedilol 6.25 mg PO BID 30 Days #60 tab 06/29/21 lisinopril 5 mg PO DAILY 30 Days #30 tab 06/29/21 rosuvastatin [Crestor] 10 mg PO DAILY #30 tab 06/29/21 ticagrelor [Brilinta] 90 mg PO BID 30 Days #60 tab 06/29/21 ABG / Lab / Microbiology Data Result Diagrams: 06/29/21 04:44 06/29/21 04:44 Discharge Plan Admission Admit Date/Time: 06/28/21 01:27 Primary Reason for Your Visit: NSTEMI Attending Provider: John Ponce Primary Care Provider: [facility] Consulting Providers: Zackary Costello Instructions Patient Instructions: Having Cardiac Catheterization, Cardiac Cath Transradial Discharge Orders/Prescriptions Prescriptions: New carvedilol 6.25 mg Tablet 6.25 mg PO BID 30 Days Qty: 60 RF: 0 aspirin 81 mg Tablet,Delayed Release (Dr/Ec) 81 mg PO BREAKFAST 30 Days Qty: 30 RF: 0 lisinopril 5 mg Tablet 5 mg PO DAILY 30 Days Qty: 30 RF: 0 Brilinta 90 mg Tablet 90 mg PO BID 30 Days Qty: 60 RF: 0 Eliquis 2.5 mg Tablet 2.5 mg PO BID 30 Days Qty: 60 RF: 0 rosuvastatin [Crestor] 10 mg tablet 10 mg PO DAILY Qty: 30 RF: 0 Continued baclofen 20 MG tablet 20 mg PO TID RF: 0 multivitamin with folic acid [Thera] 1 TABLET tablet 1 tab PO LUNCH RF: 0 gabapentin 100 MG capsule 900 mg PO TID RF: 0 nortriptyline 50 MG capsule 100 mg PO QHS RF: 0 ascorbic acid (vitamin C) [Vitamin C] 1,000 mg Tablet 1 g PO DAILY RF: 0 venlafaxine 75 mg Tablet 75 mg PO DAILY RF: 0 doxycycline monohydrate 100 mg Capsule 100 mg PO BID RF: 0 docusate sodium 100 mg Capsule 100 mg PO BID RF: 0 cholecalciferol (vitamin D3) [Vitamin D3] 50 mcg (2,000 unit) Capsule 50 mcg PO DAILY RF: 0 loratadine 10 mg Capsule 10 mg PO DAILY RF: 0 Discontinued rosuvastatin 5 mg Tablet 5 mg PO QHS RF: 0 Referrals / Follow Up: Alberto Candelario MD [STAFF PHYSICIAN] - Within 2 Weeks (May see [facility]/[place]) [place] [place] [Primary Care Provider] - In 1 Week Disposition Disposition (needs filled in before D/C Order can be placed): Home, Self Care Charges/Coding Addendum Addendum: Patient was seen and examined today independently of Stella Hernandez, he has no complaints of chest discomfort or shortness of breath. Patient appears stable for discharge at this time. On examination he appeared in good health and spirits. Vital signs as documented. Skin warm and dry and without overt rashes. Neck without JVD, neck was supple, trachea midline, thyroid was normal. Lungs clear bilaterally, normal air movement was noted. Heart exam notable for regular rhythm, normal sounds and absence of murmurs, rubs or gallops. Abdomen unremarkable and without evidence of organomegaly, masses, or abdominal aortic enlargement. Bowel sounds are present, abdomen is not distended. Extremities nonedematous, no cyanosis was noted, no clubbing was noted. Neuro: Cranial nerves II through XII grossly intact, patient is paraplegic. Psych: Patient is alert and oriented x3, he does not appear anxious or depressed, he does not appear agitated. Impression: #1 [id number]-nkoplia had a KANDI inserted in the LAD, he has nonocclusive coronary disease and will be treated medically #2 coronary artery disease-nonocclusive, occlusive-patient will remain on a statin at a higher dose (Crestor 10 mg daily) and he was also placed on Eliquis by cardiology for 30 days due to reduced EF. #3 paraplegia-secondary to transverse myelitis #4 essential hypertension-patient will continue on present medications #5 hyperlipidemia-patient's Crestor has been increased to 10 mg daily I have reviewed Stella Hernandez's discharge summary including her medical assessment and plan of care and with the above additions endorse it. Total clinical time spent by myself addressing the patient's medical issues, reviewing the patient's medical record including his labs and studies, and collaboration with the patient's care team: 20 minutes. Visit Charges Inpatient E&M: [id number] Disch Hosp
--- NOTE | 2021-06-29 11:42 | CASEMGMT ---
D/C summ/instructions faxed to [facility] and call to [facility] to notify of d/c, voices understanding. Pt to be sent home on Brilinta and Eliquis and meds e-scribed to [facility] previously. Call to [facility] to check pt's coverage/co-pay. Pt's co-pay for Brilinta is $100 and Eliquis is $47 and this RN CM applied month free coupon cards for both via phone at this time. Pt updated on all, voices understanding. Pt voices no further questions/concerns/needs. [place] ABISAI MENDES
[2021-06-30 09:32] LABS: Pathologist Review Reviewed
== END 2021-06-29 12:51 | disposition home health service (06) | DRG 247 ==
LOC: ED 06-28 01:30 → PCU 06-28 01:39
PROVIDERS: Specialist; Admitting Provider Family Medicine; Emergency Provider Emergency Medicine; Referring Provider Family Medicine; Visit Provider Internal Medicine
DX: I21.4 Non-ST elevation (NSTEMI) myocardial infarction (principal); G82.20 Paraplegia, unspecified; Z93.3 Colostomy status; F41.9 Anxiety disorder, unspecified; I10 Essential (primary) hypertension; I25.10 Atherosclerotic heart disease of native coronary artery without angina pectoris; F17.200 Nicotine dependence, unspecified, uncomplicated; B91 Sequelae of poliomyelitis; N31.9 Neuromuscular dysfunction of bladder, unspecified; F32.A Depression, unspecified; Z79.899 Other long term (current) drug therapy
CPT/HCPCS: 36415; 71045; 80048; 80053; 80061; 83735; 84484; 85025; 85027; 92928; 93005; 93306; 93458; 99152; 99153; 99251; 99285; 99406; C1874; J7030; Q9957; Q9967; A4216; C1725; C1769; C1887; C1894; C8929; C9600; G0463; J1327; J2405

== ENCOUNTER 2021-09-09 15:18 | Emergency (ER) | payer OTHER, SELFPAY ==
[2021-09-09 15:20] VITALS: BP 159/100; PULSE 69; RESP 18; TEMP 36.4; O2SAT 100; BMI 26.6
[2021-09-09 15:23] VITALS: BP 159/100; PULSE 69; RESP 16; TEMP 36.4; O2SAT 100
[2021-09-09 16:09] LABS: Absolute Lymphocyte Count 2.88 X10^3/uL (0.83-4.51); Absolute Neutrophil Count 6.3 X10^3/uL (2.0-7.7); Basophil# 0.05 X10^3/uL; Basophil% 0.5 % (0-1); Eosinophils% 4.8 % (0-5); Hematocrit 46.3 % (40-54); Lymphocyte # 2.88 X10^3/ul (0.83-4.51); Lymphocyte % 27.4 % (19-41); Mean Corp Hgb Conc 32.4 g/dL (32-36); Mean Corpuscular Hgb 28.7 pg (27.0-32.0); Mean Corpuscular Volume 88.5 fL (80-94); Mean Platelet Vol. 9.1 fl (6.2-12.0); Monocyte# 0.79 X10^3/uL; Monocyte% 7.5 % (0-10); NRBC Flagged by Analyzer 0 % (0-5); Neutrophil # 6.25 X10^3/uL (2.7-7.7); Neutrophil % 59.3 % (47-70); Platelet Count 308 K/mm3 (150-450); RBC Distribution Width SD 49.1 fl (35.1-43.9); Red Blood Count 5.23 M/mm3 (4.6-6.2); White Blood Count 10.5 K/mm3 (4.4-11.0)
[2021-09-09 17:09] LABS: Anion Gap 4 (5-15); BUN 21 mg/dL (7-18); BUN/Creat Ratio 22.4 RATIO (10-20); Chloride 111 mmol/L (98-107); Creatinine, Serum 0.94 mg/dL (0.70-1.30); EST Glomerular Filtration Rate 87 mL/min (>60); Est Glom Filt Rate - Afr Amer 105 mL/min (>60); Estimated Creatinine Clearance 80.85 ml/min; Glucose 109 mg/dL (74-106); Potassium 3.9 mmol/L (3.5-5.1); Sodium Level 140 mmol/L (136-145)
--- NOTE | 2021-09-09 17:28 | EDS_ITS ---
HPI <MARCOS Holliday - Last Filed: 09/09/21 17:36> History of Present Illness Chief Complaint: Wound Narrative Narrative: Patient presents to the emergency department with concern for an infected wound on his coccyx. Patient is paralyzed from the chest down, patient has full range of motion of his arms. Patient lives with his ex-, and has a home nurse that comes to the [facility]. 3 days a week. Patient states that the nurse was concerned because he did develop a wound that has been going on for some time, she thought there was some yellow drainage and he is here for evaluation. Patient states he has history of septicemia. [facility] <MARCOS Holliday - Last Filed: 09/09/21 17:36> [facility] Medical History (Updated 09/09/21 @ 18:[address] Christian Merlos MD) Acute paralytic poliomyelitis, wild virus, indigenous Anxiety and depression Atherosclerotic heart disease of [place] coronary artery without angina pectoris Benign essential hypertension Chronic indwelling Lima catheter Depression Heavy alcohol use Neurogenic bladder Osteomyelitis of right femur Transverse myelitis Home Medications baclofen 20 mg PO TID 02/26/13 [History Last Taken 06/27/21] multivitamin with folic acid [Thera] 1 tab PO LUNCH 02/26/13 [History Last Taken 06/27/21] gabapentin 900 mg PO TID 04/19/13 [History Last Taken 06/27/21] nortriptyline 100 mg PO QHS 01/19/19 [History Last Taken 06/26/21] ascorbic acid (vitamin C) [Vitamin C] 1 g PO DAILY 06/28/21 [History Last Taken Unknown] cholecalciferol (vitamin D3) [Vitamin D3] 50 mcg PO DAILY 06/28/21 [History Last Taken Unknown] docusate sodium 100 mg PO BID 06/28/21 [History Last Taken Unknown] doxycycline monohydrate 100 mg PO BID 06/28/21 [History Last Taken Unknown] loratadine 10 mg PO DAILY 06/28/21 [History Last Taken Unknown] venlafaxine 75 mg PO DAILY 06/28/21 [History Last Taken Unknown] apixaban [Eliquis] 2.5 mg PO BID 30 Days #60 tab 06/29/21 [Rx Last Taken Unknown] aspirin 81 mg PO BREAKFAST 30 Days #30 tab 06/29/21 [Rx Last Taken Unknown] carvedilol 6.25 mg PO BID 30 Days #60 tab 06/29/21 [Rx Last Taken Unknown] rosuvastatin [Crestor] 10 mg PO DAILY #30 tab 06/29/21 [Rx Last Taken Unknown] ticagrelor [Brilinta] 90 mg PO BID 30 Days #60 tab 06/29/21 [Rx Last Taken Unknown] lisinopril 2.5 mg tablet 2.5 mg PO DAILY #30 tab 07/06/21 [Rx Last Taken Unknown] Allergy/AdvReac Type Severity Reaction Status Date / Time No Known Allergies Allergy Verified 06/28/21 00:03 Family History Father CVA (cerebral vascular accident) Heart disease Myocardial infarction Surgical History Colostomy in place History of appendectomy History of coronary artery stent placement (06/28/21) History of femoral derotational osteotomy History of suprapubic catheter Hx of colostomy Social History household members: spouse Smoking Status: Light Smoker (<10/day) alcohol intake: former substance use type: marijuana ROS <MARCOS Holliday - Last Filed: 09/09/21 17:36> ROS ED ROS Narrative Constitutional: Negative for fever, chills, weight loss, weakness Eyes: Negative for vision loss, vision change, double vision ENT: Negative for any sore throat, ear pain, congestion Cardiovascular: Negative for any chest pain, tightness, palpitations, racing heartbeat Respiratory: Negative for any cough, sputum production, hemoptysis, shortness of breath, shortness of breath on exertion, orthopnea Gastrointestinal: Negative for any abdominal pain, nausea, vomiting, diarrhea, constipation, blood in stool, blood in vomit : Negative for any urinary frequency, incontinence, dysuria, retention, blood in urine Muscle skeletal: Negative for any muscle joint pain, stiffness, myalgias, arthralgias, neck pain, back pain Neurological: Negative for any headache, dizziness, syncope, numbness or tingling Skin: Negative for any rashes, lumps, itching, abrasions, lacerations. Patient does have a wound on the coccyx. Psychiatric: Negative for any depression, anxiety, stress, suicidal ideation, homicidal ideation Hematologic: Negative for any easy bruising, excessive bruising, easy bleeding Allergies: Negative for any eczema, hives, rash EXAM <MARCOS Holliday - Last Filed: 09/09/21 17:36> Physical Exam Narrative Exam Narrative: Vital signs reviewed. HEET: Head normocephalic atraumatic, TMs clear bilaterally. Posterior pharynx is clear, moist mucous membranes. Nares clear bilaterally. Neck: Supple with no lymphadenopathy or tenderness. No signs of meningismus, negative jolt sign. Cardiac: Regular rate and rhythm no murmurs gallops or rubs, equal peripheral pulses bilaterally. Respiratory: Lungs clear to auscultation bilaterally. No chest tenderness. Abdomen: Soft, nontender, nondistended. No abdominal bruit or pulsatile masses. No hepatosplenomegaly Extremities: No peripheral edema, no signs of gross trauma or deformity. Active full range of motion of all extremities. Patient does have bilateral hip abnormality secondary to years of being nonambulatory. Neuro: Cranial nerves II through XII intact, no focal neurological deficits. Skin: Clean dry and intact with no rash, purpura, petechiae, vesicles or pustules. Patient does have a stage III pressure ulcer on the coccyx/sacrum more to the left side above the left buttock. This is 4 cm long with 3 cm wide, this is clean, there is no drainage. There is no surrounding cellulitis, tunneling, this looks like a well taken care of wound that is in the proper stage of healing. Backslash flank: No CVA tenderness, no midline spinal tenderness, no deformity. Psych: Normal mood and affect. No SI, HI or acute psychosis. Const Vital Signs: 09/09/21 15:20 09/09/21 15:23 09/09/21 17:43 Temperature 97.6 F L 97.6 F L Temperature Source Oral Oral Pulse Rate 69 69 70 Respiratory Rate 18 16 16 Blood Pressure 159/100 H 159/100 H 122/100 H Blood Pressure Mean 119 119 Pulse Ox 100 100 97 Oxygen Delivery Method Room Air Room Air Positive well nourished and well developed General Appearance ED: well developed <Dr. Christian Merlos MD - Last Filed: 09/09/21 18:17> Physical Exam Const Vital Signs: 09/09/21 15:20 09/09/21 15:23 09/09/21 17:43 Temperature 97.6 F L 97.6 F L Temperature Source Oral Oral Pulse Rate 69 69 70 Respiratory Rate 18 16 16 Blood Pressure 159/100 H 159/100 H 122/100 H Blood Pressure Mean 119 119 Pulse Ox 100 100 97 Oxygen Delivery Method Room Air Room Air [facility] <Alex SheppardMARCOS - Last Filed: 09/09/21 17:36> [facility] Narrative Medical decision making narrative: Patient appears well, patient appears nontoxic, vital signs are stable. Patient presents to the emergency department for concern a wound might be getting infected. Patient does have a pressure ulcer which was described above, however this wound looks well, patient did receive basic laboratory values to ensure there is no leukocytosis. Patient CBC was unremarkable. At this time, patient will have a wet to dry dressing applied, patient is currently on antibiotics and has 3 days left, however the ex- is unsure of what they are. Patient does have a home health care nurse, I will give the patient information about wound care. At this time, I do believe the patient's nurse that visits her at their home saw granulation tissue and thought that this was gross drainage. This wound is not infected, there is no surrounding cellulitis, patient will continue his antibiotics which she was prescribed him another prescriber, patient will continue his follow-up. Lab Data Labs: Laboratory Results - last 24 hr 09/09/21 09/09/21 16:00 16:00 WBC 10.5 RBC 5.23 Hgb 15.0 Hct 46.3 MCV 88.5 MCH 28.7 MCHC 32.4 RDW Std Deviation 49.1 H RDW Coeff of Bhanu 15.0 H Plt Count 308 MPV 9.1 Immature Gran % (Auto) 0.500 Neut % (Auto) 59.3 Lymph % (Auto) 27.4 [place] % (Auto) 7.5 Eos % (Auto) 4.8 Baso % (Auto) 0.5 Absolute Neuts (auto) 6.3 Absolute Lymphs (auto) 2.88 Nucleated RBC % 0 Sodium 140 Potassium 3.9 Chloride 111 H Carbon Dioxide 25.0 Anion Gap 4 L BUN 21 H Creatinine 0.94 Estim Creat Clear Calc 80.85 Est GFR (MDRD) Af Amer 105 Est GFR (MDRD) Non-Af 87 BUN/Creatinine Ratio 22.4 H Glucose 109 H Calcium 9.0 <Dr. Christian Merlos MD - Last Filed: 09/09/21 18:17> MDM MDM Narrative Medical decision making narrative: Seen and evaluated independently and in conjunction with nurse practitioner. Agree with notes above unless documented otherwise. Patient has been feeling fine. He states he has had some discharge on the dressing of his wound for the last week, that looked a little green according to the home health nurse who is not here to help provide history. When asked if he has discharge on his dressings normally, he states he does not know because the nurse always talks to his ex- and not him. He states he was sent in because he has had sepsis before and they wanted him evaluated. His wound appears very healthy. There is no expressible discharge or bleeding. There is no necrotic tissue. There is no sign of cellulitis around it. He is insensate in this area, so difficult to assess for tenderness. His vital signs are stable and unremarkable, we obtained some labs showing no leukocytosis or leftward shift, and later when his ex- arrived with medication list, she states that she does not have record of it but he has been on a antibiotic for the last week. At this time we feel the patient is stable to be discharged home, we wrote him a referral to the wound care center if they wish to have it further evaluated on an acute and chronic basis. Patient is not septic and has no evidence of acute infection. Lab Data Attestation: I reviewed the patient's lab results. Labs: Laboratory Results - last 24 hr 09/09/21 09/09/21 16:00 16:00 WBC 10.5 RBC 5.23 Hgb 15.0 Hct 46.3 MCV 88.5 MCH 28.7 MCHC 32.4 RDW Std Deviation 49.1 H RDW Coeff of Bhanu 15.0 H Plt Count 308 MPV 9.1 Immature Gran % (Auto) 0.500 Neut % (Auto) 59.3 Lymph % (Auto) 27.4 [place] % (Auto) 7.5 Eos % (Auto) 4.8 Baso % (Auto) 0.5 Absolute Neuts (auto) 6.3 Absolute Lymphs (auto) 2.88 Nucleated RBC % 0 Sodium 140 Potassium 3.9 Chloride 111 H Carbon Dioxide 25.0 Anion Gap 4 L BUN 21 H Creatinine 0.94 Estim Creat Clear Calc 80.85 Est GFR (MDRD) Af Amer 105 Est GFR (MDRD) Non-Af 87 BUN/Creatinine Ratio 22.4 H Glucose 109 H Calcium 9.0 Discharge Plan Triage Chief Complaint: Wound ED Midlevel Provider: Alex Sheppard ED Provider: Christian Merlos Dx/Rx/DC Orders Clinical Impression: Visit for wound check, Wound discharge, Paraplegia Instructions: Changing Dressing Dc, ED Wound Care Prescriptions: No Action baclofen 20 MG tablet 20 mg PO TID RF: 0 multivitamin with folic acid [Thera] 1 TABLET tablet 1 tab PO LUNCH RF: 0 gabapentin 100 MG capsule 900 mg PO TID RF: 0 nortriptyline 50 MG capsule 100 mg PO QHS RF: 0 ascorbic acid (vitamin C) [Vitamin C] 1,000 mg Tablet 1 g PO DAILY RF: 0 venlafaxine 75 mg Tablet 75 mg PO DAILY RF: 0 doxycycline monohydrate 100 mg Capsule 100 mg PO BID RF: 0 docusate sodium 100 mg Capsule 100 mg PO BID RF: 0 cholecalciferol (vitamin D3) [Vitamin D3] 50 mcg (2,000 unit) Capsule 50 mcg PO DAILY RF: 0 loratadine 10 mg Capsule 10 mg PO DAILY RF: 0 carvedilol 6.25 mg Tablet 6.25 mg PO BID 30 Days Qty: 60 RF: 0 aspirin 81 mg Tablet,Delayed Release (Dr/Ec) 81 mg PO BREAKFAST 30 Days Qty: 30 RF: 0 Brilinta 90 mg Tablet 90 mg PO BID 30 Days Qty: 60 RF: 0 Eliquis 2.5 mg Tablet 2.5 mg PO BID 30 Days Qty: 60 RF: 0 rosuvastatin [Crestor] 10 mg tablet 10 mg PO DAILY Qty: 30 RF: 0 lisinopril 2.5 mg tablet 2.5 mg PO DAILY Qty: 30 RF: 11 Primary Care Provider: [facility] Referrals: Wound Health [Outside] (Please follow-up with the wound center) [facility] [Primary Care Provider] - Activity Restrictions/Additional Instructions: Please continue your dressing changes, please continue your antibiotics that you are on, please follow-up with the wound clinic. Print Language: Estonian Disposition Disposition: Home, Self Care
[2021-09-09 17:43] VITALS: BP 122/100; PULSE 70; RESP 16; O2SAT 97
== END 2021-09-09 19:10 | disposition home or self-care (01) ==
PROVIDERS: Nurse Practitioner; Emergency Provider Emergency Medicine; Visit Provider Emergency Medicine
DX: L89.153 Pressure ulcer of sacral region, stage 3 (principal); G82.20 Paraplegia, unspecified; I25.10 Atherosclerotic heart disease of native coronary artery without angina pectoris; I10 Essential (primary) hypertension; A80 Acute poliomyelitis; F17.200 Nicotine dependence, unspecified, uncomplicated; Z79.02 Long term (current) use of antithrombotics/antiplatelets; Z79.82 Long term (current) use of aspirin; Z79.899 Other long term (current) drug therapy; Z95.5 Presence of coronary angioplasty implant and graft
CPT/HCPCS: 80048; 85025; 99284

== ENCOUNTER 2022-05-22 16:39 | Emergency (ER) | payer OTHER, SELFPAY ==
[2022-05-22 16:40] VITALS: BP 163/112; PULSE 107; RESP 16; TEMP 36.9; O2SAT 97; BMI 26.2
--- NOTE | 2022-05-22 16:56 | EX.ED.DYSGE1 ---
HPI History of Present Illness Chief Complaint: Abd Pain Informant: patient and EMS Narrative Narrative: Brought in by EMS from home reporting flulike symptoms for last 4 days. States fever myalgias mild cough. Nausea with dry heaves. 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 He has a suprapubic cath has diverting ostomy with his history. He states no abdominal pain. He just reports the nausea symptoms. Denies sick contacts. Denies chest pains. History of coronary stent May of this year 11 months ago. He is on aspirin and Brilinta. Records note he was on Eliquis however on review he was on 1 month of Eliquis post stent placement when discharged in June. [facility] Medical History Acute paralytic poliomyelitis, wild virus, indigenous Anxiety and depression Atherosclerotic heart disease of [place] coronary artery without angina pectoris Benign essential hypertension Chronic indwelling Lima catheter Depression Heavy alcohol use Neurogenic bladder Osteomyelitis of right femur Transverse myelitis Home Medications baclofen 20 mg tablet 20 mg PO TID muscle spasms 02/26/13 [History Last Taken 06/27/21] multivitamin with folic acid 400 mcg tablet (Thera) 1 tab PO LUNCH supplemeny 02/26/13 [History Last Taken 06/27/21] gabapentin 100 mg capsule 900 mg PO TID neuropathy 04/19/13 [History Last Taken 06/27/21] nortriptyline 50 mg capsule 100 mg PO QHS anxiety 01/19/19 [History Last Taken 06/26/21] ascorbic acid (vitamin C) 1,000 mg tablet (Vitamin C) 1 g PO DAILY Check with primary doctor 06/28/21 [History Last Taken Unknown] cholecalciferol (vitamin D3) 50 mcg (2,000 unit) capsule (Vitamin D3) 50 mcg PO DAILY Check with primary doctor 06/28/21 [History Last Taken Unknown] docusate sodium 100 mg capsule 100 mg PO BID Check with primary doctor 06/28/21 [History Last Taken Unknown] doxycycline monohydrate 100 mg capsule 100 mg PO BID Check with primary doctor 06/28/21 [History Last Taken Unknown] loratadine 10 mg capsule 10 mg PO DAILY Check with primary doctor 06/28/21 [History Last Taken Unknown] venlafaxine 75 mg tablet 75 mg PO DAILY Check with primary doctor 06/28/21 [History Last Taken Unknown] apixaban 2.5 mg tablet (Eliquis) 2.5 mg PO BID 30 days #60 tabs 06/29/21 [Rx Last Taken Unknown] aspirin 81 mg tablet,delayed release 81 mg PO BREAKFAST 30 days #30 tabs 06/29/21 [Rx Last Taken Unknown] carvedilol 6.25 mg tablet 6.25 mg PO BID 30 days #60 tabs 06/29/21 [Rx Last Taken Unknown] rosuvastatin 10 mg tablet (Crestor) 10 mg PO DAILY #30 tabs 06/29/21 [Rx Last Taken Unknown] ticagrelor 90 mg tablet (Brilinta) 90 mg PO BID 30 days #60 tabs 06/29/21 [Rx Last Taken Unknown] lisinopril 2.5 mg tablet 2.5 mg PO DAILY #30 tabs 07/06/21 [Rx Last Taken Unknown] Allergy/AdvReac Type Severity Reaction Status Date / Time No Known Allergies Allergy Verified 05/22/22 16:42 Family History Father CVA (cerebral vascular accident) Heart disease Myocardial infarction Surgical History Colostomy in place History of appendectomy History of coronary artery stent placement (06/28/21) History of femoral derotational osteotomy History of suprapubic catheter Hx of colostomy Social History household members: spouse Smoking Status: Light Smoker (<10/day) alcohol intake: former substance use type: marijuana ROS ROS ED Constitutional Constitutional ED: Reports fever(s); Denies chills or sweats Eyes Eyes: Denies change in vision ENT ENT ED: Denies dysphagia or sore throat Cardiovascular Cardiovascular: Denies chest pain, leg edema, palpitations or racing heartbeat Respiratory/Chest Respiratory/Chest: Reports cough; Denies dyspnea or dyspnea on exertion Gastrointestinal Gastrointestinal: Reports nausea and vomiting; Denies abdominal pain or diarrhea Genitourinary Genitourinary ED: Denies dysuria, hematuria or urinary frequency Musculoskeletal Musculoskeletal: Reports myalgias; Denies back pain, extremity pain or neck pain Integumentary Denies rash or wounds Neurologic Neurologic: Denies headache(s), paresthesias or weakness EXAM Physical Exam Const Vital Signs: 05/22/22 16:40 Temperature 98.4 F Temperature Source Oral Pulse Rate 107 H Respiratory Rate 16 Blood Pressure 163/112 H Blood Pressure Mean 129 Pulse Ox 97 Oxygen Delivery Method Room Air Positive well nourished and well developed General Appearance ED: well developed and NAD HEENT Reports moist mucous membranes normocephalic and atraumatic Eyes PERRL, EOMs intact bilaterally and conjunctivae normal General Eye ED: Yes normal appearance of both eyes Neck no lymphadenopathy and supple General: Negative for tenderness Chest Wall Chest: Negative for tenderness Resp normal respiratory effort and normal air movement Effort and Inspection: symmetric chest movement; Negative for respiratory distress Cardio regular rhythm and no murmurs Rate: tachycardic Peripheral Pulses: pulses 2+ throughout GI normal to inspection, nondistended, normoactive bowel sounds and non-tender GI Narrative: Left lower quadrant ostomy bag empty with air. Palpation: Negative for guarding or rebound tenderness present Narrative: Lima catheter with yellow urine. Back/Spine no CVA tenderness and no thoracic nor lumbar tenderness Extremity normal to inspection General Extremety ED: Negative for edema or tenderness General Extremity: Negative for edema Neuro oriented x3 and no sensory deficits noted Sensorium / Orientation: awake and alert Skin no rashes or lesions noted and no wounds MDM MDM MDM Narrative Medical decision making narrative: Patient more flulike symptoms. Work-up initiated. EKG sinus rhythm no acute findings. Labs are all stable. Chest x-ray 1 view read by myself read by radiology negative for acute process. Initially given Zofran with fluids continue have nausea Reglan IV was ordered. 1800: Continues to complain of nausea. He states he emptied his ostomy bag earlier this morning. We will give IV Ativan we will send for CT abdomen pelvis Rule Out any obstruction for his nausea. 1900: CT scan negative for obstruction reported potential ulcers right hip and sacrum cannot rule out osteomyelitis. I reviewed the area wounds appeared no drainage no cellulitis there was some scarring. He had DuoDERM dressings. He has nursing 3 days a week to come help change the dressing and check his wounds. He denies any pain in the area. Therefore no concerns clinically for infection. Also reported left lower lobe pneumonia reviewed this is was minimal he had very minimal cough no sputum. White count normal. He is clinically not concerned of pneumonia either. He is more concerned of his nausea which improved with the Ativan. He feels much better COVID and flu returned negative. He is more reassured with symptoms feeling better. Will p.o. challenge him. Also discussed with him pulmonary nodules seen by radiology is 7 mm 4 mm right middle lobe. This could be followed and evaluated as an outpatient. We will plan a prescription for Zofran and Ativan to use as needed with strict return precautions. All questions were answered. Lab Data Attestation: I reviewed the patient's lab results. Labs: Laboratory Results - last 24 hr 05/22/22 05/22/22 17:02 17:02 WBC 9.1 RBC 5.47 Hgb 15.6 Hct 46.2 MCV 84.5 MCH 28.5 MCHC 33.8 RDW Std Deviation 49.6 H RDW Coeff of Bhanu 16.1 H Plt Count 268 MPV 9.7 Immature Gran % (Auto) 0.300 Neut % (Auto) 77.2 H Lymph % (Auto) 7.3 L [place] % (Auto) 14.7 H Eos % (Auto) 0.1 Baso % (Auto) 0.4 Absolute Neuts (auto) 7.0 Absolute Lymphs (auto) 0.67 L Nucleated RBC % 0 Sodium 135 L Potassium 4.2 Chloride 105 Carbon Dioxide 22.0 Anion Gap 8 BUN 19 H Creatinine 0.84 Estim Creat Clear Calc 92.35 Est GFR (MDRD) Af Amer 119 Est GFR (MDRD) Non-Af 98 BUN/Creatinine Ratio 22.5 H Glucose 102 Calcium 9.1 Radiography Diagnostic Testing: Clinical Impression(s) from Imaging Studies Chest X-Ray 05/22/22 17:30 IMPRESSION: There are no acute findings. Electronically Signed: Geraldo Bowling MD at 17:47 EST , Abdomen/Pelvis CT 05/22/22 17:57 IMPRESSION: (NOT LISTED IN ORDER OF SIGNIFICANCE) There is a 7 mm and a 4mm nodule in the right middle lobe. CT chest is recommended to evaluate for other nodules. Left lower lobe pneumonia. Sacral decubitus ulcer and right hip decubitus ulcer. There is absence of the right femoral head and remodeling of the right acetabulum. These findings appear chronic. The decubitus ulcer abuts the sacrum and coccyx. Osteomyelitis is difficult to exclude. Ulcer overlying the right hip is noted with soft tissue density extending into the right hip joint. Septic arthritis cannot be excluded. There are atherosclerotic calcifications of visualized coronary arteries. Other findings as above. Electronically Signed: Geraldo Bowling MD at 18:43 EST , Discharge Plan Triage Chief Complaint: Abd Pain ED Provider: Zhang Chavez Dx/Rx/DC Orders Prescriptions: No Action baclofen 20 MG tablet 20 mg PO TID Label Comments: MUSCLE SPASMS multivitamin with folic acid [Thera] 1 TABLET tablet 1 tab PO LUNCH Label Comments: SUPPLEMENT gabapentin 100 MG capsule 900 mg PO TID Label Comments: NEUROPATHY nortriptyline 50 MG capsule 100 mg PO QHS ascorbic acid (vitamin C) [Vitamin C] 1,000 mg Tablet 1 g PO DAILY venlafaxine 75 mg Tablet 75 mg PO DAILY doxycycline monohydrate 100 mg Capsule 100 mg PO BID docusate sodium 100 mg Capsule 100 mg PO BID cholecalciferol (vitamin D3) [Vitamin D3] 50 mcg (2,000 unit) Capsule 50 mcg PO DAILY loratadine 10 mg Capsule 10 mg PO DAILY carvedilol 6.25 mg Tablet 6.25 mg PO BID 30 Days Qty: 60 0RF aspirin 81 mg Tablet,Delayed Release (Dr/Ec) 81 mg PO BREAKFAST 30 Days Qty: 30 0RF Brilinta 90 mg Tablet 90 mg PO BID 30 Days Qty: 60 0RF Eliquis 2.5 mg Tablet 2.5 mg PO BID 30 Days Qty: 60 0RF rosuvastatin [Crestor] 10 mg tablet 10 mg PO DAILY Qty: 30 0RF lisinopril 2.5 mg tablet 2.5 mg PO DAILY Qty: 30 11RF [facility] [facility] [Primary Care Provider] -
[2022-05-22] MEDS: Ondansetron 4 MG/2 ML Vial IV (17:10)
[2022-05-22] MEDS: 0.9% Normal Saline 1,000 ML 1000 ML IV (17:10)
[2022-05-22 17:19] LABS: Absolute Lymphocyte Count 0.67 X10^3/uL (0.83-4.51); Basophil# 0.04 X10^3/uL; Basophil% 0.4 % (0-1); Eosinophil# 0.01 X10^3/uL; Eosinophils% 0.1 % (0-5); Hematocrit 46.2 % (40-54); Hemoglobin 15.6 g/dL (13.0-16.5); Lymphocyte # 0.67 X10^3/ul (0.83-4.51); Lymphocyte % 7.3 % (19-41); Mean Corp Hgb Conc 33.8 g/dL (32-36); Mean Corpuscular Hgb 28.5 pg (27.0-32.0); Mean Corpuscular Volume 84.5 fL (80-94); Mean Platelet Vol. 9.7 fl (6.2-12.0); Monocyte# 1.34 X10^3/uL; Monocyte% 14.7 % (0-10); NRBC Flagged by Analyzer 0 % (0-5); Neutrophil # 7.04 X10^3/uL (2.7-7.7); Neutrophil % 77.2 % (47-70); Platelet Count 268 K/mm3 (150-450); RBC Distribution Width CV 16.1 % (11.6-14.6); RBC Distribution Width SD 49.6 fl (35.1-43.9); Red Blood Count 5.47 M/mm3 (4.6-6.2); White Blood Count 9.1 K/mm3 (4.4-11.0)
--- NOTE | 2022-05-22 17:30 | RAD_ITS ---
STUDY: X-RAY CHEST REASON FOR EXAM: Male, 62 years old. cough TECHNIQUE: XR Chest 1 View COMPARISON: 06.28.21 FINDINGS: Normal visualized aortic arch and descending thoracic aorta. There are diffuse degenerative changes of the visualized thoracic spine. There is degenerative osteoarthritis of the bilateral shoulders. There is no demonstrated pleural abnormality. Normal size heart. Normal mediastinum and caryl. Normal visualized pulmonary arteries. There is no demonstrated abnormality of the visualized soft tissue structures of the upper abdomen. RAD/Chest 1 View (Portable) IMPRESSION: There are no acute findings. Electronically Signed: Geraldo Bowling MD at 17:47 EST ,
[2022-05-22 17:37] LABS: Anion Gap 8 (5-15); BUN 19 mg/dL (7-18); BUN/Creat Ratio 22.5 RATIO (10-20); Calcium,Total 9.1 mg/dL (8.5-10.1); Chloride 105 mmol/L (98-107); Creatinine, Serum 0.84 mg/dL (0.70-1.30); EST Glomerular Filtration Rate 98 mL/min (>60); Est Glom Filt Rate - Afr Amer 119 mL/min (>60); Estimated Creatinine Clearance 92.35 ml/min; Glucose 102 mg/dL (74-106); Potassium 4.2 mmol/L (3.5-5.1); Sodium Level 135 mmol/L (136-145)
[2022-05-22] MEDS: Metoclopramide 10 MG/2 ML Vial 5 MG IV (17:37)
--- NOTE | 2022-05-22 17:57 | CT_ITS ---
STUDY: CT Abdomen And Pelvis W/O Contrast Injection 05/22/2022 6:36 PM REASON FOR EXAM: Male, 62 years old. Abdominal pain nausea Pain x3 days, history of appendectomy, suprapubic catheter, colostomy, hypertension. Individualized dose optimization techniques were used for this CT. COMPARISON: 05.01.[address] abdomen pelvis and ct hip of 05/18/2017. TECHNIQUE: CT Abdomen And Pelvis W/O Contrast Injection FINDINGS: There are atherosclerotic calcifications of visualized coronary arteries. There is a 7 mm and a 4mm nodule in the right middle lobe. CT chest is recommended to evaluate for other nodules. Left lower lobe pneumonia. Normal liver. Normal gallbladder and extrahepatic biliary system. Normal spleen. Normal pancreas. Normal bilateral adrenal glands. No acute findings of the right kidney. No acute findings of the left kidney. Normal visualized stomach. Normal small intestine. Stool throughout the colon. There are surgical clips in the region of the appendix consistent with a prior appendectomy. There is a left lower quadrant ostomy noted. There are calcifications of the abdominal aorta. This is consistent for atherosclerotic disease. There is NO abdominal aortic aneurysm. Vascular workup can be obtained based on clinical correlation. Normal inferior vena cava. Subcentimeter mesenteric lymph nodes. There is a suprapubic Lima balloon catheter in the urinary bladder. Urinary bladder wall has wall thickening. This can be related to a partially contractile state. However, a cystitis is not excluded. Urinalysis should be performed in an effort to exclude cystitis. There is an umbilical hernia containing fat. There are diffuse degenerative changes of the visualized lumbar spine. Healed left hip fractures. Sacral decubitus ulcer and right hip decubitus ulcer. There is absence of the right femoral head and remodeling of the right acetabulum. These findings appear chronic. The decubitus ulcer abuts the sacrum and coccyx. Osteomyelitis is difficult to exclude. Ulcer overlying the right hip is noted with soft tissue density extending into the right hip joint. Septic arthritis cannot be excluded. CT/Abdomen/Pelvis without Cont IMPRESSION: (NOT LISTED IN ORDER OF SIGNIFICANCE) There is a 7 mm and a 4mm nodule in the right middle lobe. CT chest is recommended to evaluate for other nodules. Left lower lobe pneumonia. Sacral decubitus ulcer and right hip decubitus ulcer. There is absence of the right femoral head and remodeling of the right acetabulum. These findings appear chronic. The decubitus ulcer abuts the sacrum and coccyx. Osteomyelitis is difficult to exclude. Ulcer overlying the right hip is noted with soft tissue density extending into the right hip joint. Septic arthritis cannot be excluded. There are atherosclerotic calcifications of visualized coronary arteries. Other findings as above. Electronically Signed: Geraldo Bowling MD at 18:43 EST ,
[2022-05-22] MEDS: LORazepam 2 MG/ML Syringe 1 MG IV (18:21)
[2022-05-22 19:39] VITALS: BP 192/115; PULSE 115; RESP 20; O2SAT 96
[2022-05-22 20:07] VITALS: BP 155/95; PULSE 113; RESP 27; O2SAT 97
[2022-05-22 20:08] VITALS: BP 155/89; PULSE 113; RESP 26; TEMP 36.4; O2SAT 97
--- NOTE | 2022-05-22 20:10 | ED.RN ---
Spoke with pt about discharge and arrival via physician ambulance.
[2022-05-22 21:09] VITALS: BP 143/93; PULSE 121; RESP 30; O2SAT 96
== END 2022-05-22 22:20 | disposition home or self-care (01) ==
PROVIDERS: Emergency Provider Emergency Medicine; Visit Provider Emergency Medicine
DX: R10.9 Unspecified abdominal pain (principal); G82.20 Paraplegia, unspecified; I25.10 Atherosclerotic heart disease of native coronary artery without angina pectoris; R11.2 Nausea with vomiting, unspecified; I10 Essential (primary) hypertension; F17.200 Nicotine dependence, unspecified, uncomplicated; Z20.822 Contact with and (suspected) exposure to COVID-19; Z95.5 Presence of coronary angioplasty implant and graft
CPT/HCPCS: 71045; 74176; 80048; 85025; 87428; 93005; 96361; 96374; 96375; 99285; J7030; A4216; J2405

== ENCOUNTER 2022-06-06 16:16 | Emergency (ER) | payer OTHER, SELFPAY ==
[2022-06-06 16:16] VITALS: BP 143/97; PULSE 85; RESP 20; TEMP 36.4; O2SAT 99; BMI 26.6
--- NOTE | 2022-06-06 16:57 | EDS_ITS ---
HPI History of Present Illness Chief Complaint: Confusion Narrative Narrative: 62-year-old male presenting with his daughter out of concern for some disorientation and the daughter states that he is saying that he is paraplegic which she has known for years. This is abnormal for him. She states that couple of weeks ago his mother came to visit and the next day she was diagnosed with COVID. She states that it started today in the morning. She was called by his home health care nurse who told her that his heart rate was low and his oxygen was low. She does report that he had a cough since . He is a paraplegic with a chronic indwelling Lima catheter. He is on Eliquis 2.5 mg p.o. twice daily, as well as Brilinta and daily 81 mg of aspirin. He gets most of his care from the [place] Medical History Acute paralytic poliomyelitis, wild virus, indigenous Anxiety and depression Atherosclerotic heart disease of [place] coronary artery without angina pectoris Benign essential hypertension Chronic indwelling Lima catheter Depression Heavy alcohol use Neurogenic bladder Osteomyelitis of right femur Transverse myelitis Home Medications baclofen 20 mg tablet 20 mg PO TID muscle spasms 02/26/13 [History Last Taken 06/27/21] multivitamin with folic acid 400 mcg tablet (Thera) 1 tab PO LUNCH supplemeny 02/26/13 [History Last Taken 06/27/21] gabapentin 100 mg capsule 900 mg PO TID neuropathy 04/19/13 [History Last Taken 06/27/21] nortriptyline 50 mg capsule 100 mg PO QHS anxiety 01/19/19 [History Last Taken 06/26/21] ascorbic acid (vitamin C) 1,000 mg tablet (Vitamin C) 1 g PO DAILY Check with primary doctor 06/28/21 [History Last Taken Unknown] cholecalciferol (vitamin D3) 50 mcg (2,000 unit) capsule (Vitamin D3) 50 mcg PO DAILY Check with primary doctor 06/28/21 [History Last Taken Unknown] docusate sodium 100 mg capsule 100 mg PO BID Check with primary doctor 06/28/21 [History Last Taken Unknown] doxycycline monohydrate 100 mg capsule 100 mg PO BID Check with primary doctor 06/28/21 [History Last Taken Unknown] loratadine 10 mg capsule 10 mg PO DAILY Check with primary doctor 06/28/21 [History Last Taken Unknown] venlafaxine 75 mg tablet 75 mg PO DAILY Check with primary doctor 06/28/21 [History Last Taken Unknown] apixaban 2.5 mg tablet (Eliquis) 2.5 mg PO BID 30 days #60 tabs 06/29/21 [Rx Last Taken Unknown] aspirin 81 mg tablet,delayed release 81 mg PO BREAKFAST 30 days #30 tabs 06/29/21 [Rx Last Taken Unknown] carvedilol 6.25 mg tablet 6.25 mg PO BID 30 days #60 tabs 06/29/21 [Rx Last Taken Unknown] rosuvastatin 10 mg tablet (Crestor) 10 mg PO DAILY #30 tabs 06/29/21 [Rx Last Taken Unknown] ticagrelor 90 mg tablet (Brilinta) 90 mg PO BID 30 days #60 tabs 06/29/21 [Rx Last Taken Unknown] lisinopril 2.5 mg tablet 2.5 mg PO DAILY #30 tabs 07/06/21 [Rx Last Taken Unknown] lorazepam 0.5 mg tablet (Ativan) 0.5 mg PO BID PRN nausea and vomiting #6 tabs 05/22/22 [Rx Last Taken Unknown] ondansetron 4 mg disintegrating tablet 4 mg PO Q6H PRN nausea and vomiting #10 tabs 05/22/22 [Rx Last Taken Unknown] ciprofloxacin HCl 500 mg tablet 500 mg PO BID #14 tabs 06/06/22 [Rx Last Taken Unknown] Allergy/AdvReac Type Severity Reaction Status Date / Time No Known Allergies Allergy Verified 05/22/22 16:42 Family History Father CVA (cerebral vascular accident) Heart disease Myocardial infarction Surgical History Colostomy in place History of appendectomy History of coronary artery stent placement (06/28/21) History of femoral derotational osteotomy History of suprapubic catheter Hx of colostomy Social History household members: spouse Smoking Status: Light Smoker (<10/day) alcohol intake: former substance use type: marijuana ROS ROS ED Constitutional Constitutional ED: Denies chills or fever(s) Eyes Eyes: Denies change in vision or diplopia ENT ENT ED: Denies rhinorrhea or sore throat Cardiovascular Cardiovascular: Denies chest pain or palpitations Respiratory/Chest Respiratory/Chest: Denies cough or dyspnea Gastrointestinal Gastrointestinal: Denies abdominal pain or vomiting Genitourinary Genitourinary ED: Reports other Details: Chronic indwelling Lima catheter. Musculoskeletal Musculoskeletal: Denies arthralgias or back pain Integumentary Denies abscess or Abrasions Neurologic Neurologic: Reports headache(s) Psychiatric Psychiatric: Denies anxiety EXAM Physical Exam Const Vital Signs: 06/06/22 16:16 06/06/22 18:39 Temperature 97.5 F L Temperature Source Temporal Pulse Rate 85 89 Respiratory Rate 20 H 15 Blood Pressure 143/97 H 122/100 H Blood Pressure Mean 112 107 Pulse Ox 99 97 Oxygen Delivery Method Room Air Positive well nourished General Appearance ED: NAD; Negative for pallor HEENT Reports moist mucous membranes Negative for trauma Eyes EOMs intact bilaterally General Eye ED: Negative for pale conjunctiva or scleral icterus Neck no lymphadenopathy Chest Wall inspection of chest normal Resp Auscultation: rales right base and mid Cardio regular rate and regular rhythm GI normal to inspection, nondistended, normoactive bowel sounds Neuro oriented x3 and CN's II-XII intact bilaterally Sensorium / Orientation: alert Skin General Skin Exam: Negative for jaundice or pallor MDM MDM MDM Narrative Medical decision making narrative: 62-year-old male brought in by his daughter out of concern for a low heart rate and low oxygen which was reported to her by her home health care nurse. The patient has a heart rate of 85 here today. His blood pressure is 143/97. Temperature 97.5. Pulse ox 99% on room air. There is no report of the fever. There is report of possible COVID but this is a week and 1/2 to 2 weeks ago and it will think testing would be necessary for this. The patient is reportedly a little bit confused and telling her that he is paraplegic which is well-known. He has not had any recent medication changes. He does have an indwelling Lima catheter, but when asked if he gets frequent UTIs the patient's daughter states no. I did ask if he is ever been confused like this before and she states he does not typically get sick. His daughter reports that he has nausea and has been very nauseous recently and also has a mild headache. I did offer him something for headache and nausea and he declines. CBC shows a slight leukocytosis at 15.7. It does appear that the patient has had elevated white blood cell counts in the past. Hemoglobin hematocrit are stable. Platelets are normal. Renal function and electrolytes are at baseline and are actually fairly normal with exception of some prerenal azotemia which has been present on his previous blood work. Urinalysis does show positive nitrite 3, 500 leukocyte esterase, 10-25 WBCs and 2+ bacteria. I did review the patient's previous urine culture and it does appear that it was sensitive to Cipro. Given he has a white count and a little bit of confusion I suspect he might have a UTI. Patient's daughter was amenable to treating this is UTI and urine culture was sent. Did obtain a chest x-ray because the patient has been coughing and on my interpret ation this does not show any acute cardiopulmonary process. The radiologist represents and agrees. The patient has normal vital signs here and is not requiring any oxygen. The patient's daughter did report a low heart rate and a low oxygen but this is not present. I cannot ambulate the patient because he is paraplegic but he has a normal chest x-ray. Patient doctors control caring for him at home and he does have home health care. Impression: 1. UTI 2. Leukocytosis 3. Continue Lab Data Labs: Laboratory Results - last 24 hr 06/06/22 06/06/22 06/06/22 16:40 16:40 16:45 WBC 15.7 H RBC 5.18 Hgb 14.2 Hct 45.1 MCV 87.1 MCH 27.4 MCHC 31.5 L RDW Std Deviation 49.6 H RDW Coeff of Bhanu 15.7 H Plt Count 433 MPV 9.5 Immature Gran % (Auto) 0.600 Neut % (Auto) 67.2 Lymph % (Auto) 19.6 [place] % (Auto) 10.9 H Eos % (Auto) 1.4 Baso % (Auto) 0.3 Absolute Neuts (auto) 10.5 H Absolute Lymphs (auto) 3.07 Nucleated RBC % 0 Differential Comment SCANNED Diff Path Review May foll Sodium 143 Potassium 3.8 Chloride 109 H Carbon Dioxide 29.0 Anion Gap 5 BUN 18 Creatinine 0.82 Estim Creat Clear Calc 88.45 Est GFR (MDRD) Af Amer 122 Est GFR (MDRD) Non-Af 101 BUN/Creatinine Ratio 21.8 H Glucose 93 Calcium 9.1 Urine Color Yellow Urine Clarity Clear Urine pH 6.0 Ur Specific [place] 1.020 Urine Protein 15 H Urine Glucose (UA) Normal Urine Ketones 5 H Urine Occult Blood 25 H Urine Nitrite Positive H Urine Bilirubin Negative Urine Urobilinogen Normal Ur Leukocyte Esterase 500 H Urine RBC 0-5 SEEN Urine WBC 10-25 SEEN Ur Squamous Epith Cells 0 SEEN Urine Bacteria 2+ Urine Mucus 0 SEEN Radiography Diagnostic Testing: Clinical Impression(s) from Imaging Studies Chest X-Ray 06/06/22 17:52 IMPRESSION: No acute cardiopulmonary disease. Electronically Signed: Angela Vega MD at 18:18 EST Reading Location ID and State: [id number] / Tel , Service support , Discharge Plan Triage Chief Complaint: Confusion ED Provider: Max Gibbons Dx/Rx/DC Orders Instructions: ED ALOC, ED Bladder Infection, Male (Adult) Prescriptions: New ciprofloxacin HCl 500 mg tablet 500 mg PO BID Qty: 14 0RF No Action baclofen 20 MG tablet 20 mg PO TID Label Comments: MUSCLE SPASMS multivitamin with folic acid [Thera] 1 TABLET tablet 1 tab PO LUNCH Label Comments: SUPPLEMENT gabapentin 100 MG capsule 900 mg PO TID Label Comments: NEUROPATHY nortriptyline 50 MG capsule 100 mg PO QHS ascorbic acid (vitamin C) [Vitamin C] 1,000 mg Tablet 1 g PO DAILY venlafaxine 75 mg Tablet 75 mg PO DAILY doxycycline monohydrate 100 mg Capsule 100 mg PO BID docusate sodium 100 mg Capsule 100 mg PO BID cholecalciferol (vitamin D3) [Vitamin D3] 50 mcg (2,000 unit) Capsule 50 mcg PO DAILY loratadine 10 mg Capsule 10 mg PO DAILY carvedilol 6.25 mg Tablet 6.25 mg PO BID 30 Days Qty: 60 0RF aspirin 81 mg Tablet,Delayed Release (Dr/Ec) 81 mg PO BREAKFAST 30 Days Qty: 30 0RF Brilinta 90 mg Tablet 90 mg PO BID 30 Days Qty: 60 0RF Eliquis 2.5 mg Tablet 2.5 mg PO BID 30 Days Qty: 60 0RF rosuvastatin [Crestor] 10 mg tablet 10 mg PO DAILY Qty: 30 0RF ondansetron 4 mg tablet,disintegrating 4 mg PO Q6H PRN (Reason: nausea and vomiting) Qty: 10 0RF lorazepam [Ativan] 0.5 mg tablet 0.5 mg PO BID PRN (Reason: nausea and vomiting) Qty: 6 0RF lisinopril 2.5 mg tablet 2.5 mg PO DAILY Qty: 30 11RF [facility] [facility] [Primary Care Provider] - Disposition Disposition: Home, Self Care
[2022-06-06 17:11] LABS: Absolute Lymphocyte Count 3.07 X10^3/uL (0.83-4.51); Absolute Neutrophil Count 10.5 X10^3/uL (2.0-7.7); Basophil# 0.05 X10^3/uL; Basophil% 0.3 % (0-1); Eosinophil# 0.22 X10^3/uL; Eosinophils% 1.4 % (0-5); Hematocrit 45.1 % (40-54); Hemoglobin 14.2 g/dL (13.0-16.5); Lymphocyte # 3.07 X10^3/ul (0.83-4.51); Lymphocyte % 19.6 % (19-41); Mean Corp Hgb Conc 31.5 g/dL (32-36); Mean Corpuscular Hgb 27.4 pg (27.0-32.0); Mean Corpuscular Volume 87.1 fL (80-94); Mean Platelet Vol. 9.5 fl (6.2-12.0); Monocyte# 1.71 X10^3/uL; Monocyte% 10.9 % (0-10); NRBC Flagged by Analyzer 0 % (0-5); Neutrophil # 10.51 X10^3/uL (2.7-7.7); Neutrophil % 67.2 % (47-70); POSITIVE DIFFERENTIAL YES; Platelet Count 433 K/mm3 (150-450); RBC Distribution Width CV 15.7 % (11.6-14.6); RBC Distribution Width SD 49.6 fl (35.1-43.9); Red Blood Count 5.18 M/mm3 (4.6-6.2); White Blood Count 15.7 K/mm3 (4.4-11.0)
[2022-06-06 17:13] LABS: Differential Indicated SCAN CRITERIA MET
[2022-06-06 17:36] LABS: Mucous, Urine 0 SEEN /hpf (<or=2+); Squamous Epithelial Cells - UA 0 SEEN /hpf (0-5)
[2022-06-06 17:37] LABS: Color, Urine Yellow (Yellow); Glucose, Dipstick Normal (Normal); Ketone-Dipstick 5 mg/dl (Negative); Leukocyte Esterase-Dipstick 500 /ul (Negative); Nitrite-Dipstick Positive (Negative); Occult Blood-Urine 25 /ul (Negative); Protein-Dipstick 15 mg/dl (Negative); Urine Bilirubin Dipstick Negative (Negative); Urine Clarity Clear (Clear); Urine Urobilinogen Normal (Normal)
[2022-06-06 17:42] LABS: Anion Gap 5 (5-15); BUN 18 mg/dL (7-18); BUN/Creat Ratio 21.8 RATIO (10-20); Calcium,Total 9.1 mg/dL (8.5-10.1); Chloride 109 mmol/L (98-107); Creatinine, Serum 0.82 mg/dL (0.70-1.30); Differential Comment SCANNED; EST Glomerular Filtration Rate 101 mL/min (>60); Est Glom Filt Rate - Afr Amer 122 mL/min (>60); Estimated Creatinine Clearance 88.45 ml/min; Glucose 93 mg/dL (74-106); Potassium 3.8 mmol/L (3.5-5.1); Sodium Level 143 mmol/L (136-145)
--- NOTE | 2022-06-06 17:52 | RAD_ITS ---
INDICATION: cough EXAMINATION/TECHNIQUE: X-RAY - XR Chest 1 View COMPARISON: 05/22/2022. FINDINGS: LINES/DEVICES: None. LUNGS: No consolidation, edema or effusion. No pneumothorax. MEDIASTINUM AND CARDIOVASCULAR STRUCTURES: Cardiac silhouette not enlarged. Central airways and mediastinal contour are unremarkable. BONES AND SOFT TISSUES: Mild thoracic dextroscoliosis. RAD/Chest 1 View (Portable) IMPRESSION: No acute cardiopulmonary disease. Electronically Signed: Angela Vega MD at 18:18 EST Reading Location ID and State: [id number] / Tel , Service support ,
[2022-06-06 18:37] LABS: Bacteria 2+ /hpf (None Seen); Red Blood Cells-Urine 0-5 SEEN /hpf (0-5); White Blood Cells 10-25 SEEN /hpf (0-5)
[2022-06-06 18:39] VITALS: BP 122/100; PULSE 89; RESP 15; O2SAT 97
[2022-06-06] MEDS: Ciprofloxacin 500 MG Tablet PO (19:33)
[2022-06-06 20:00] VITALS: BP 102/75; PULSE 99; RESP 16; O2SAT 97
[2022-06-07] VITALS: BP 119/78; PULSE 81; RESP 14; O2SAT 97
[2022-06-07 15:25] LABS: Pathologist Review Reviewed
== END 2022-06-07 00:40 | disposition home or self-care (01) ==
PROVIDERS: Emergency Provider Student in an Organized Health Care Education/Training Program; Visit Provider Student in an Organized Health Care Education/Training Program
DX: N39.0 Urinary tract infection, site not specified (principal); G82.20 Paraplegia, unspecified; R51.9 Headache, unspecified; I25.10 Atherosclerotic heart disease of native coronary artery without angina pectoris; I10 Essential (primary) hypertension; R11.0 Nausea; F17.200 Nicotine dependence, unspecified, uncomplicated; Z79.01 Long term (current) use of anticoagulants; Z79.02 Long term (current) use of antithrombotics/antiplatelets; Z79.82 Long term (current) use of aspirin; Z79.899 Other long term (current) drug therapy; Z95.5 Presence of coronary angioplasty implant and graft
CPT/HCPCS: 71045; 80048; 81001; 85025; 87077; 87086; 87088; 87186; 99284; A4216

== ENCOUNTER 2023-10-09 01:10 | Emergency (ER) | payer OTHER, SELFPAY ==
[2023-10-09 01:12] VITALS: BP 138/97; PULSE 107; RESP 21; TEMP 36.4; O2SAT 97
--- NOTE | 2023-10-09 01:34 | EDS_ITS ---
HPI History of Present Illness Chief Complaint: Chest Pain Informant: patient Onset/Context/Timing Onset: Today Activity at onset: gradual Timing: Intermittent Quality: Positive for Tightness Location: Substernal, Right Parasternal, Left Parasternal, Right Chest and Left Chest Worsened By: Nothing Relieved By: Nothing Associated Symptoms: Positive for Nausea and Diaphoresis; Negative for Vomiting, Dyspnea, Cough, Fever, Lightheadedness, Acid Reflux or Palpitations Narrative Narrative: Patient presents with chest pain that began tonight. Patient states that it came on gradually. Patient states that has been intermittent. Patient describe s it as a tightness. Patient states the pain is diffuse across his entire chest. Patient states nothing makes it better nothing makes it worse. Patient admits to some nausea but denies any vomiting. Patient admits to some diaphoresis. Patient denies any shortness of breath or cough. Patient denies any fevers or chills. Patient denies any lightheadedness or dizziness. Patient denies any palpitations or reflux. CVD Risk Factors: Negative for Hypertension, Diabetes, Hypercholesterolemia, Family History 1' </=55 or Smoking PE Risk Factors: Positive for Recent Immobilization; Negative for Recent Travel/Surgery, Prior DVT or PE or Cancer [facility] Medical History Acute paralytic poliomyelitis, wild virus, indigenous Anxiety and depression Atherosclerotic heart disease of [place] coronary artery without angina pectoris Benign essential hypertension Chronic indwelling [place] catheter Depression Heavy alcohol use Neurogenic bladder Osteomyelitis of right femur Transverse myelitis Home Medications baclofen 20 mg tablet 20 mg PO TID muscle spasms 02/26/13 [History Last Taken 06/27/21] multivitamin with folic acid 400 mcg tablet (Thera) 1 tab PO LUNCH supplemeny 02/26/13 [History Last Taken 06/27/21] gabapentin 100 mg capsule 900 mg PO TID neuropathy 04/19/13 [History Last Taken 06/27/21] nortriptyline 50 mg capsule 100 mg PO QHS anxiety 01/19/19 [History Last Taken 06/26/21] ascorbic acid (vitamin C) 1,000 mg tablet (Vitamin C) 1 g PO DAILY Check with primary doctor 06/28/21 [History Last Taken Unknown] cholecalciferol (vitamin D3) 50 mcg (2,000 unit) capsule (Vitamin D3) 50 mcg PO DAILY Check with primary doctor 06/28/21 [History Last Taken Unknown] docusate sodium 100 mg capsule 100 mg PO BID Check with primary doctor 06/28/21 [History Last Taken Unknown] doxycycline monohydrate 100 mg capsule 100 mg PO BID Check with primary doctor 06/28/21 [History Last Taken Unknown] loratadine 10 mg capsule 10 mg PO DAILY Check with primary doctor 06/28/21 [History Last Taken Unknown] venlafaxine 75 mg tablet 75 mg PO DAILY Check with primary doctor 06/28/21 [History Last Taken Unknown] apixaban 2.5 mg tablet (Eliquis) 2.5 mg PO BID 30 days #60 tabs 06/29/21 [Rx Last Taken Unknown] aspirin 81 mg tablet,delayed release 81 mg PO BREAKFAST 30 days #30 tabs 06/29/21 [Rx Last Taken Unknown] carvedilol 6.25 mg tablet 6.25 mg PO BID 30 days #60 tabs 06/29/21 [Rx Last Taken Unknown] rosuvastatin 10 mg tablet (Crestor) 10 mg PO DAILY #30 tabs 06/29/21 [Rx Last Taken Unknown] ticagrelor 90 mg tablet (Brilinta) 90 mg PO BID 30 days #60 tabs 06/29/21 [Rx Last Taken Unknown] lisinopril 2.5 mg tablet 2.5 mg PO DAILY #30 tabs 07/06/21 [Rx Last Taken Unknown] lorazepam 0.5 mg tablet (Ativan) 0.5 mg PO BID PRN nausea and vomiting #6 tabs 05/22/22 [Rx Last Taken Unknown] ondansetron 4 mg disintegrating tablet 4 mg PO Q6H PRN nausea and vomiting #10 tabs 05/22/22 [Rx Last Taken Unknown] ciprofloxacin HCl 500 mg tablet 500 mg PO BID #14 tabs 06/06/22 [Rx Last Taken Unknown] ondansetron 4 mg disintegrating tablet 4 mg PO Q8H PRN nausea and vomiting #10 tabs 06/06/22 [Rx Last Taken Unknown] Allergy/AdvReac Type Severity Reaction Status Date / Time No Known Allergies Allergy Verified 10/09/23 01:12 Family History Father CVA (cerebral vascular accident) Heart disease Myocardial infarction Surgical History Colostomy in place History of appendectomy History of coronary artery stent placement (06/28/21) History of femoral derotational osteotomy History of suprapubic catheter Hx of colostomy Social History household members: spouse Smoking Status: Light Smoker (<10/day) alcohol intake: former substance use type: marijuana ROS ROS ED Constitutional Constitutional ED: Reports fever(s), subjective and sweats; Denies chills Eyes Eyes: Denies blurry vision or change in vision ENT ENT ED: Denies rhinorrhea or sore throat Cardiovascular Cardiovascular: Reports chest pain; Denies palpitations Respiratory/Chest Respiratory/Chest: Denies cough or dyspnea Gastrointestinal Gastrointestinal: Reports nausea; Denies vomiting Genitourinary Genitourinary ED: Denies dysuria or hematuria Musculoskeletal Musculoskeletal: Denies back pain or neck pain Integumentary Denies abscess or rash Neurologic Neurologic: Denies headache(s) or weakness Allergic/Immunologic Allergic/Immunologic ED: Denies mouth swelling or urticaria EXAM Physical Exam Const Vital Signs: 10/09/23 01:12 10/09/23 01:51 10/09/23 02:10 Temperature 97.6 F L Temperature Source Oral Pulse Rate 107 H 104 H Respiratory Rate 21 H 18 Blood Pressure 138/97 H 120/76 Blood Pressure Mean 110 90 Pulse Ox 97 95 Oxygen Delivery Method Room Air Room Air Room Air 10/09/23 03:00 Temperature Temperature Source Pulse Rate 92 Respiratory Rate 22 H Blood Pressure 120/87 H Blood Pressure Mean 98 Pulse Ox 94 Oxygen Delivery Method Room Air Positive well nourished and well developed General Appearance ED: well developed and NAD HEENT Reports moist mucous membranes Neck supple and no JVD Resp normal respiratory effort and clear to auscultation bilaterally Cardio regular rhythm Rate: tachycardic GI soft to palpation, non-tender and non-distended Neuro oriented x3 and CN's II-XII intact bilaterally Sensorium / Orientation: awake and alert Psych mental status grossly normal Heart Score History: Slightly/Non-Suspicious ECG: Nonspecific Repolarization Age: >45 - <65 years Risk Factors: >/= 3 Risk Factors or History of CAD Troponin: </= Normal Limit Score: 4 MDM MDM MDM Narrative Medical decision making narrative: Differential diagnosis includes cardiac dysrhythmia, cardiac ischemia, pneumonia, pneumothorax, electrolyte abnormality, and anxiety. EKG will be obtained to assess for cardiac dysrhythmia and cardiac ischemia. Chest x-ray will be obtained to assess for pneumonia and pneumothorax. CBC will be obtained to assess for leukocytosis and anemia. Basic metabolic profile will be obtained to assess for electrolyte abnormality and renal function. High-sensitivity troponin will be obtained to assess for cardiac ischemia. 2-hour repeat high- sensitivity troponin will be obtained to assess for ongoing cardiac ischemia. Patient is on Eliquis. I do not feel this is from a pulmonary embolism. Lab Data Attestation: I reviewed the patient's lab results. Lab results narrative: CBC was reviewed. There is a mild leukocytosis of 19.0. The remainder is within normal limits. Basic metabolic profile was reviewed and was within normal limits. High-sensitivity troponin was reviewed and was normal at 6. 2- hour repeat high-sensitivity troponin was reviewed and was normal at 7. Labs: Laboratory Results - last 24 hr 10/09/23 10/09/23 00:55 03:00 WBC 19.0 H RBC 5.93 Hgb 16.5 Hct 50.0 MCV 84.3 MCH 27.8 MCHC 33.0 RDW Std Deviation 45.5 H RDW Coeff of Bhaun 14.9 H Plt Count 531 H MPV 9.5 Immature Gran % (Auto) 0.500 Neut % (Auto) 66.7 Lymph % (Auto) 16.3 L Stafford % (Auto) 15.1 H Eos % (Auto) 0.8 Baso % (Auto) 0.6 Absolute Neuts (auto) 12.6 H Absolute Lymphs (auto) 3.10 Nucleated RBC % 0 Differential Comment SCANNED Diff Path Review May foll Sodium 136 Potassium 3.6 Chloride 100 Carbon Dioxide 26.0 Anion Gap 10 BUN 13 Creatinine 0.75 Est GFR (MDRD) Af Amer 135 Est GFR (MDRD) Non-Af 112 BUN/Creatinine Ratio 17.3 Glucose 124 H Calcium 9.7 Troponin I High Sens 6 7 Radiography Chest X-Ray - ED: 1 View, Read by ED Physician, Read by Radiologist and No Acute Disease Diagnostic Testing: Clinical Impression(s) from Imaging Studies Chest X-Ray 10/09/23 01:44 IMPRESSION: No acute findings in the chest. Electronically Signed: Joel Roche MD at 2:10 EDT , Portable 1 view chest x-ray was obtained. On my independent interpretation, lung ferrera are clear. There is normal cardiac silhouette. Bony thorax is normal. There is no acute process noted. Radiologist also interpreted the x- ray and agrees. EKG Initial EKG: Attestation: I personally reviewed and interpreted this EKG as follows: Interpretation: Sinus Tachycardia (102) and Non-Specific ST Changes Comments: EKG was obtained. On my independent interpretation, it showed a sinus tachycardia with a rate of 102. [place] interval, QRS interval, and QTc intervals were all normal. Alliance was normal. There are nonspecific ST-T wave changes. Prior EKG tracings: available for review Prior: Unchanged (05/22/2022) Differential Diagnosis Chest pain/SOB: pulmonary embolism Reason(s) PE less likely: Positive for not hypoxic and patient taking oral anticoagulants Treatment and Re-Evaluation :: Patient was advised of his findings. Patient has a HEART score of 4. Patient had a negative delta troponin. I feel patient is safe to be discharged home. Patient was instructed to follow-up with his primary care physician in 5 to 7 days. Patient was instructed to return if worse in any way. Patient understood and was agreeable with the plan. All questions were answered. Discharge Plan Triage Chief Complaint: Chest Pain ED Provider: Adan Bell Dx/Rx/DC Orders Clinical Impression: Tobacco abuse, Chest pain Instructions: ED Chest Pain, Uncertain Cause Prescriptions: No Action baclofen 20 MG tablet 20 mg PO TID Patient Comments: MUSCLE SPASMS multivitamin with folic acid [Thera] 1 TABLET tablet 1 tab PO LUNCH Patient Comments: SUPPLEMENT gabapentin 100 MG capsule 900 mg PO TID Patient Comments: NEUROPATHY nortriptyline 50 MG capsule 100 mg PO QHS ascorbic acid (vitamin C) [Vitamin C] 1,000 mg Tablet 1 g PO DAILY venlafaxine 75 mg Tablet 75 mg PO DAILY doxycycline monohydrate 100 mg Capsule 100 mg PO BID docusate sodium 100 mg Capsule 100 mg PO BID cholecalciferol (vitamin D3) [Vitamin D3] 50 mcg (2,000 unit) Capsule 50 mcg PO DAILY loratadine 10 mg Capsule 10 mg PO DAILY carvedilol 6.25 mg Tablet 6.25 mg PO BID 30 Days Qty: 60 0RF aspirin 81 mg Tablet,Delayed Release (Dr/Ec) 81 mg PO BREAKFAST 30 Days Qty: 30 0RF Brilinta 90 mg Tablet 90 mg PO BID 30 Days Qty: 60 0RF Eliquis 2.5 mg Tablet 2.5 mg PO BID 30 Days Qty: 60 0RF rosuvastatin [Crestor] 10 mg tablet 10 mg PO DAILY Qty: 30 0RF ondansetron 4 mg tablet,disintegrating 4 mg PO Q6H PRN (Reason: nausea and vomiting) Qty: 10 0RF lorazepam [Ativan] 0.5 mg tablet 0.5 mg PO BID PRN (Reason: nausea and vomiting) Qty: 6 0RF ciprofloxacin HCl 500 mg tablet 500 mg PO BID Qty: 14 0RF ondansetron 4 mg tablet,disintegrating 4 mg PO Q8H PRN (Reason: nausea and vomiting) Qty: 10 0RF lisinopril 2.5 mg tablet 2.5 mg PO DAILY Qty: 30 11RF [facility] [Primary [facility] Provider[facility] - 3-5 Days Disposition Disposition: Home, Self Care
--- NOTE | 2023-10-09 01:44 | RAD_ITS ---
EXAM: XR CHEST, 1 VIEW CLINICAL INDICATION: chest pain chest pain TECHNIQUE: Frontal view of the chest. COMPARISON: No relevant prior studies available. FINDINGS: LUNGS AND PLEURAL SPACES: Unremarkable. No consolidation or edema. No pneumothorax. No effusion. HEART: Unremarkable. Cardiac silhouette not enlarged. MEDIASTINUM: Central airways and mediastinal contour are unremarkable. BONES/JOINTS: There is thoracic dextroscoliosis. No acute fracture. SOFT TISSUES: Unremarkable. RAD/Chest 1 View (Portable) IMPRESSION: No acute findings in the chest. Electronically Signed: Joel Roche MD at 2:10 EDT Reading Location ID and State: [facility] / [place] , Service support ,
[2023-10-09 01:56] LABS: Absolute Neutrophil Count 12.6 X10^3/uL (2.0-7.7); Basophil# 0.11 X10^3/uL; Basophil% 0.6 % (0-1); Eosinophil# 0.16 X10^3/uL; Eosinophils% 0.8 % (0-5); Hemoglobin 16.5 g/dL (13.0-16.5); Lymphocyte % 16.3 % (19-41); Mean Corpuscular Hgb 27.8 pg (27.0-32.0); Mean Corpuscular Volume 84.3 fL (80-94); Mean Platelet Vol. 9.5 fl (6.2-12.0); Monocyte# 2.86 X10^3/uL; Monocyte% 15.1 % (0-10); NRBC Flagged by Analyzer 0 % (0-5); Neutrophil # 12.64 X10^3/uL (2.7-7.7); Neutrophil % 66.7 % (47-70); POSITIVE DIFFERENTIAL YES; Platelet Count 531 K/mm3 (150-450); RBC Distribution Width CV 14.9 % (11.6-14.6); RBC Distribution Width SD 45.5 fl (35.1-43.9); Red Blood Count 5.93 M/mm3 (4.6-6.2)
[2023-10-09 01:59] LABS: Differential Indicated SCAN CRITERIA MET
[2023-10-09 02:10] VITALS: BP 120/76; PULSE 104; RESP 18; O2SAT 95
[2023-10-09 02:14] LABS: Anion Gap 10 (5-15); BUN 13 mg/dL (7-18); BUN/Creat Ratio 17.3 RATIO (10-20); Calcium,Total 9.7 mg/dL (8.5-10.1); Chloride 100 mmol/L (98-107); Creatinine, Serum 0.75 mg/dL (0.70-1.30); EST Glomerular Filtration Rate 112 mL/min (>60); Est Glom Filt Rate - Afr Amer 135 mL/min (>60); Glucose 124 mg/dL (74-106); Potassium 3.6 mmol/L (3.5-5.1); Sodium Level 136 mmol/L (136-145); Troponin-I HS (w/2H Reflex) 6 pg/mL (3.0-78.0)
[2023-10-09] MEDS: Aspirin 81 MG TAB.CHEW 324 MG PO (02:22)
[2023-10-09 02:52] LABS: Differential Comment SCANNED
[2023-10-09 03:00] VITALS: BP 120/87; PULSE 92; RESP 22; O2SAT 94
[2023-10-09 03:45] LABS: Troponin-I HS 7 pg/mL (3.0-78.0)
[2023-10-09 03:52] LABS: Reflex Troponin-HS? (from REC) Y
[2023-10-09 04:00] VITALS: BP 121/90; PULSE 89; RESP 20; O2SAT 95
[2023-10-09 05:00] VITALS: BP 128/91; PULSE 95; RESP 16; TEMP 36.4; O2SAT 97
[2023-10-10 09:15] LABS: Pathologist Review Reviewed
== END 2023-10-09 05:31 | disposition home or self-care (01) ==
PROVIDERS: Emergency Provider Emergency Medicine; Visit Provider Emergency Medicine
DX: R07.9 Chest pain, unspecified (principal); R11.0 Nausea; I25.10 Atherosclerotic heart disease of native coronary artery without angina pectoris; I10 Essential (primary) hypertension; Z79.01 Long term (current) use of anticoagulants
CPT/HCPCS: 71045; 80048; 84484; 85025; 93005; 99284; A4216

== ENCOUNTER 2024-05-03 11:37 | Emergency (ER) | payer OTHER, SELFPAY ==
[2024-05-03 11:38] VITALS: BP 166/104; PULSE 80; RESP 16; TEMP 36.6; O2SAT 94; BMI 27.3
--- NOTE | 2024-05-03 11:57 | RAD_ITS ---
STUDY: X-RAY - PELVIS AND RIGHT HIP REASON FOR EXAM: Male, 64 years old. Right hip pain following a fall. TECHNIQUE: 4 views of the pelvis and hip. COMPARISON: None. FINDINGS: Large amount of fecal material is seen in the colon. Soft tissue swelling. There is narrowing with cortical sclerosis and osteophyte formation of the sacroiliac joint consistent with degenerative osteoarthritic changes. Normal bilateral superior and inferior pubic rami. Normal pubic symphysis. Normal bilateral ischial tuberosities. Essentially nondisplaced oblique fracture of the subtrochanteric region of the proximal right femur. Deformity of the left femoral neck with the apparent fusion of the left hip joint. Abnormal appearance of the right femur is suggestive of possible metastasis or multiple myeloma. RAD/HIP, UNI W/ Pelvis 2-3 Views IMPRESSION: Nondisplaced acute subtrochanteric fracture of the proximal right femur. Abnormal appearance of the right femur. Possible metastasis or multiple myeloma. Electronically Signed: Abdoul Munoz MD at 12:34 EST ,
--- NOTE | 2024-05-03 11:59 | EX.ED.DYSGE1 ---
HPI <AICHA Correa - Last Filed: 05/03/24 13:57> History of Present Illness Chief Complaint: Lower Extremity Injury Narrative Narrative: 64-year-old male is paraplegic and states his aide was doing range of motion exercises of his legs when there was an audible pop of his right hip and he is concerned it could be out of place. No history of prior hip surgery. He is bedbound. [facility] <AICHA Correa - Last Filed: 05/03/24 13:57> [facility] Medical History Acute paralytic poliomyelitis, wild virus, indigenous Anxiety and depression Atherosclerotic heart disease of [place] coronary artery without angina pectoris Benign essential hypertension Chronic indwelling [place] catheter Depression Heavy alcohol use Neurogenic bladder Osteomyelitis of right femur Transverse myelitis Home Medications ?Medication ?Instructions ?Recorded ?Last Taken ?Type baclofen 20 mg tablet 20 mg PO TID muscle spasms 02/26/13 06/27/21 History multivitamin with folic acid 400 1 tab PO LUNCH supplemeny 02/26/13 06/27/21 History mcg tablet (Thera) gabapentin 100 mg capsule 900 mg PO TID neuropathy 04/19/13 06/27/21 History nortriptyline 50 mg capsule 100 mg PO QHS anxiety 01/19/19 06/26/21 History ascorbic acid (vitamin C) 1,000 mg 1 g PO DAILY Check with primary 06/28/21 Unknown History tablet (Vitamin C) doctor cholecalciferol (vitamin D3) 50 50 mcg PO DAILY Check with primary 06/28/21 Unknown History mcg (2,000 unit) capsule (Vitamin doctor D3) docusate sodium 100 mg capsule 100 mg PO BID Check with primary 06/28/21 Unknown History doctor doxycycline monohydrate 100 mg 100 mg PO BID Check with primary 06/28/21 Unknown History capsule doctor loratadine 10 mg capsule 10 mg PO DAILY Check with primary 06/28/21 Unknown History doctor venlafaxine 75 mg tablet 75 mg PO DAILY Check with primary 06/28/21 Unknown History doctor apixaban 2.5 mg tablet (Eliquis) 2.5 mg PO BID 30 days #60 tabs 06/29/21 Unknown Rx aspirin 81 mg tablet,delayed 81 mg PO BREAKFAST 30 days #30 tabs 06/29/21 Unknown Rx release carvedilol 6.25 mg tablet 6.25 mg PO BID 30 days #60 tabs 06/29/21 Unknown Rx rosuvastatin 10 mg tablet (Crestor) 10 mg PO DAILY #30 tabs 06/29/21 Unknown Rx ticagrelor 90 mg tablet (Brilinta) 90 mg PO BID 30 days #60 tabs 06/29/21 Unknown Rx lisinopril 2.5 mg tablet 2.5 mg PO DAILY #30 tabs 07/06/21 Unknown Rx lorazepam 0.5 mg tablet (Ativan) 0.5 mg PO BID PRN nausea and 05/22/22 Unknown Rx vomiting #6 tabs ondansetron 4 mg disintegrating 4 mg PO Q6H PRN nausea and 05/22/22 Unknown Rx tablet vomiting #10 tabs ciprofloxacin HCl 500 mg tablet 500 mg PO BID #14 tabs 06/06/22 Unknown Rx ondansetron 4 mg disintegrating 4 mg PO Q8H PRN nausea and 06/06/22 Unknown Rx tablet vomiting #10 tabs Allergy/AdvReac Type Severity Reaction Status Date / Time No Known Allergies Allergy Verified 10/09/23 01:12 Family History Father CVA (cerebral vascular accident) Heart disease Myocardial infarction Surgical History Colostomy in place History of appendectomy History of coronary artery stent placement (06/28/21) History of femoral derotational osteotomy History of suprapubic catheter Hx of colostomy Social History household members: spouse Smoking Status: Light Smoker (<10/day) alcohol intake: former substance use type: marijuana ROS <AICHA Correa - Last Filed: 05/03/24 13:57> ROS ED ROS Narrative Constitutional: Negative for fever, chills, malaise. Neuro: Positive for paraplegia. Musc: Positive for chronic leg edema. EXAM <AICHA Correa - Last Filed: 05/03/24 13:57> Physical Exam Narrative Exam Narrative: CONST: Patient sitting in no acute distress. EYES: Normal inspection. NECK: Normal inspection. RESP: No respiratory distress, CTAB. CVS: Regular rate and rhythm, no murmur, no gallop. SKIN: Color normal, no rash, warm, dry, intact. EXTREMITIES: Chronic atrophy and edema of both lower extremities makes it hard to appreciate if there is shortening or rotation. No sensation to light touch from paraplegia. 2+ DP pulses. NEURO: Alert and answering questions appropriately. PSYCH: Normal affect. Const Vital Signs: 05/03/24 11:38 05/03/24 13:38 05/03/24 15:00 Temperature 97.9 F Temperature Source Oral Pulse Rate 80 81 77 Respiratory Rate 16 16 16 Blood Pressure 166/104 H 160/85 H 132/82 H Blood Pressure Mean 124 110 98 Pulse Ox 94 97 95 Oxygen Delivery Method Room Air Room Air Room Air 05/03/24 15:45 Temperature 97.9 F Temperature Source Pulse Rate 74 Respiratory Rate 16 Blood Pressure 125/81 H Blood Pressure Mean 95 Pulse Ox 96 Oxygen Delivery Method <Dr. Hema Jean-Baptiste DO - Last Filed: 05/04/24 02:35> Physical Exam Const Vital Signs: 05/03/24 11:38 05/03/24 13:38 05/03/24 15:00 Temperature 97.9 F Temperature Source Oral Pulse Rate 80 81 77 Respiratory Rate 16 16 16 Blood Pressure 166/104 H 160/85 H 132/82 H Blood Pressure Mean 124 110 98 Pulse Ox 94 97 95 Oxygen Delivery Method Room Air Room Air Room Air 05/03/24 15:45 Temperature 97.9 F Temperature Source Pulse Rate 74 Respiratory Rate 16 Blood Pressure 125/81 H Blood Pressure Mean 95 Pulse Ox 96 Oxygen Delivery Method [facility] <AICHA Correa - Last Filed: 05/03/24 13:57> [facility] Narrative Medical decision making narrative: Differential: Hip fracture versus ligamentous injury Consults: Orthopedics, [facility] ED Patient is paraplegic and heard a pop from his right hip from his a doing range of motion exercises. He is bedbound. He has no external signs of injury on the lower extremities and I cannot appreciate if there is shortening or rotation due to chronic atrophy and edema but distal pulses are intact. The x-ray shows an acute subtrochanteric fracture of the right femur. There are lytic lesions concerning for multiple myeloma or metastasis. I spoke with our on-call orthopedist, Dr. Corrales, who feels due to the patient's history as well as possible underlying multiple myeloma that he needs sent to a larger center for evaluation. I spoke with ED physician Dr. Bishop Valerio at [facility] for ED to ED transfer. Lab Data Attestation: I reviewed the patient's lab results. Labs: Laboratory Results - last 24 hr 05/03/24 13:13 WBC 12.8 H RBC 6.17 Hgb 17.0 H Hct 53.3 MCV 86.4 MCH 27.6 MCHC 31.9 L RDW Std Deviation 53.9 H RDW Coeff of Bhanu 18.0 H Plt Count 299 MPV 9.6 Immature Gran % (Auto) 0.400 Neut % (Auto) 61.4 Lymph % (Auto) 25.4 [place] % (Auto) 8.8 Eos % (Auto) 3.5 Baso % (Auto) 0.5 Absolute Neuts (auto) 7.8 H Absolute Lymphs (auto) 3.24 Nucleated RBC % 0 Sodium 140 Potassium 4.1 Chloride 106 Carbon Dioxide 33.0 H Anion Gap 2 L BUN 14 Creatinine 0.92 Estim Creat Clear Calc 82.18 Est GFR (MDRD) Af Amer 106 Est GFR (MDRD) Non-Af 88 BUN/Creatinine Ratio 15.2 Glucose 97 Calcium 9.4 Radiography Diagnostic Testing: Clinical Impression(s) from Imaging Studies Hip/Pelvis X-Ray 05/03/24 11:57 IMPRESSION: Nondisplaced acute subtrochanteric fracture of the proximal right femur. Abnormal appearance of the right femur. Possible metastasis or multiple myeloma. Electronically Signed: Abdoul Munoz MD at 12:34 EST , ED attending interpretation of right hip shows a subtrochanteric fracture. <Dr. Hema Jean-Baptiste, DO - Last Filed: 05/04/24 02:35> [facility] Narrative Medical decision making narrative: Differential: Hip fracture versus ligamentous injury Consults: Orthopedics, [facility] ED Patient is paraplegic and heard a pop from his right hip from his a doing range of motion exercises. He is bedbound. He has no external signs of injury on the lower extremities and I cannot appreciate if there is shortening or rotation due to chronic atrophy and edema but distal pulses are intact. The x-ray shows an acute subtrochanteric fracture of the right femur. There are lytic lesions concerning for multiple myeloma or metastasis. I spoke with our on-call orthopedist, Dr. Corrales, who feels due to the patient's history as well as possible underlying multiple myeloma that he needs sent to a larger center for evaluation. I spoke with ED physician Dr. Bishop Valerio at [facility] for ED to ED transfer. Supervisory Physician Note Patient was seen and examined with the Advanced Practice Provider. Nursing notes and vital signs have been reviewed. Pertinent old records have been reviewed. I agree with the essential elements of the BE's history, physical exam, assessment, and plan. The differential diagnosis and management options were discussed with the BE. I participated in determining and agree with the management, procedures, final impression and disposition as documented. See changes noted by me. Please see addendum or separate note for any additional details. 64-year-old male history of paraplegia presents for right hip evaluation. [place] audible pop in right hip after motion exercises. Endorses pain in the hip. I agree with the physical exam above Differential diagnosis includes but is not limited to fracture, ligamentous injury, arthritis. X-ray of the right hip and pelvis obtained. This was interpreted and reviewed by me, ED physician. Subtrochanteric fracture of the right hip. Per radiology there are lytic lesions concerning for multiple myeloma or metastasis. Patient was discussed with orthopedics, patient will require transfer. Patient accepted to [facility] For transfer. Patient confirmed understanding of the plan. He was given pain control. Impression: 1. Closed subtrochanteric fracture of the right hip 2. Lytic lesions concerning for multiple myeloma or metastasis 3. History of paraplegia Lab Data Labs: Laboratory Results - last 24 hr 05/03/24 13:13 WBC 12.8 H RBC 6.17 Hgb 17.0 H Hct 53.3 MCV 86.4 MCH 27.6 MCHC 31.9 L RDW Std Deviation 53.9 H RDW Coeff of Bhanu 18.0 H Plt Count 299 MPV 9.6 Immature Gran % (Auto) 0.400 Neut % (Auto) 61.4 Lymph % (Auto) 25.4 [place] % (Auto) 8.8 Eos % (Auto) 3.5 Baso % (Auto) 0.5 Absolute Neuts (auto) 7.8 H Absolute Lymphs (auto) 3.24 Nucleated RBC % 0 Sodium 140 Potassium 4.1 Chloride 106 Carbon Dioxide 33.0 H Anion Gap 2 L BUN 14 Creatinine 0.92 Estim Creat Clear Calc 82.18 Est GFR (MDRD) Af Amer 106 Est GFR (MDRD) Non-Af 88 BUN/Creatinine Ratio 15.2 Glucose 97 Calcium 9.4 Radiography Diagnostic Testing: Clinical Impression(s) from Imaging Studies Hip/Pelvis X-Ray 05/03/24 11:57 IMPRESSION: Nondisplaced acute subtrochanteric fracture of the proximal right femur. Abnormal appearance of the right femur. Possible metastasis or multiple myeloma. Electronically Signed: Abdoul Munoz MD at 12:34 EST Reading Location ID and State: [address] [place] [address] , Service support , Discharge Plan Triage Chief Complaint: Lower Extremity Injury ED Midlevel Provider: Jaclyn Méndez ED Provider: Hema Jean-Baptiste Dx/Rx/DC Orders Clinical Impression: Closed fracture of right hip, Paraplegia Prescriptions: No Action baclofen 20 MG tablet 20 mg PO TID Patient Comments: MUSCLE SPASMS multivitamin with folic acid [Thera] 1 TABLET tablet 1 tab PO LUNCH Patient Comments: SUPPLEMENT gabapentin 100 MG capsule 900 mg PO TID Patient Comments: NEUROPATHY nortriptyline 50 MG capsule 100 mg PO QHS ascorbic acid (vitamin C) [Vitamin C] 1,000 mg Tablet 1 g PO DAILY venlafaxine 75 mg Tablet 75 mg PO DAILY doxycycline monohydrate 100 mg Capsule 100 mg PO BID docusate sodium 100 mg Capsule 100 mg PO BID cholecalciferol (vitamin D3) [Vitamin D3] 50 mcg (2,000 unit) Capsule 50 mcg PO DAILY loratadine 10 mg Capsule 10 mg PO DAILY carvedilol 6.25 mg Tablet 6.25 mg PO BID 30 Days Qty: 60 0RF aspirin 81 mg Tablet,Delayed Release (Dr/Ec) 81 mg PO BREAKFAST 30 Days Qty: 30 0RF Brilinta 90 mg Tablet 90 mg PO BID 30 Days Qty: 60 0RF Eliquis 2.5 mg Tablet 2.5 mg PO BID 30 Days Qty: 60 0RF rosuvastatin [Crestor] 10 mg tablet 10 mg PO DAILY Qty: 30 0RF ondansetron 4 mg tablet,disintegrating 4 mg PO Q6H PRN (Reason: nausea and vomiting) Qty: 10 0RF lorazepam [Ativan] 0.5 mg tablet 0.5 mg PO BID PRN (Reason: nausea and vomiting) Qty: 6 0RF ciprofloxacin HCl 500 mg tablet 500 mg PO BID Qty: 14 0RF ondansetron 4 mg tablet,disintegrating 4 mg PO Q8H PRN (Reason: nausea and vomiting) Qty: 10 0RF lisinopril 2.5 mg tablet 2.5 mg PO DAILY Qty: 30 11RF [facility] [Primary Care Provider] - Print Language: Croatian Disposition Disposition: Acute Care Hospital Discharge Location: [facility] Discharge Date/Time: 05/03/24 15:47
[2024-05-03 13:22] LABS: Absolute Lymphocyte Count 3.24 X10^3/uL (0.83-4.51); Absolute Neutrophil Count 7.8 X10^3/uL (2.0-7.7); Basophil# 0.07 X10^3/uL; Basophil% 0.5 % (0-1); Eosinophil# 0.45 X10^3/uL; Eosinophils% 3.5 % (0-5); Hematocrit 53.3 % (40-54); Lymphocyte # 3.24 X10^3/ul (0.83-4.51); Lymphocyte % 25.4 % (19-41); Mean Corp Hgb Conc 31.9 g/dL (32-36); Mean Corpuscular Hgb 27.6 pg (27.0-32.0); Mean Corpuscular Volume 86.4 fL (80-94); Mean Platelet Vol. 9.6 fl (6.2-12.0); Monocyte# 1.12 X10^3/uL; Monocyte% 8.8 % (0-10); NRBC Flagged by Analyzer 0 % (0-5); Neutrophil # 7.83 X10^3/uL (2.7-7.7); Neutrophil % 61.4 % (47-70); Platelet Count 299 K/mm3 (150-450); RBC Distribution Width SD 53.9 fl (35.1-43.9); Red Blood Count 6.17 M/mm3 (4.6-6.2); White Blood Count 12.8 K/mm3 (4.4-11.0)
[2024-05-03 13:34] LABS: Anion Gap 2 (5-15); BUN 14 mg/dL (7-18); BUN/Creat Ratio 15.2 RATIO (10-20); Calcium,Total 9.4 mg/dL (8.5-10.1); Chloride 106 mmol/L (98-107); Creatinine, Serum 0.92 mg/dL (0.70-1.30); EST Glomerular Filtration Rate 88 mL/min (>60); Est Glom Filt Rate - Afr Amer 106 mL/min (>60); Estimated Creatinine Clearance 82.18 ml/min; Glucose 97 mg/dL (74-106); Potassium 4.1 mmol/L (3.5-5.1); Sodium Level 140 mmol/L (136-145)
[2024-05-03 13:38] VITALS: BP 160/85; PULSE 81; RESP 16; O2SAT 97
[2024-05-03] MEDS: Morphine 4 MG/ML Syringe IV (13:54)
[2024-05-03] MEDS: Ondansetron 4 MG/2 ML Vial IV (13:54)
[2024-05-03 15:00] VITALS: BP 132/82; PULSE 77; RESP 16; O2SAT 95
[2024-05-03] MEDS: fentaNYL 100 MCG/2 ML Ampul 50 MCG IV (15:32)
[2024-05-03 15:45] VITALS: BP 125/81; PULSE 74; RESP 16; TEMP 36.6; O2SAT 96
== END 2024-05-03 15:47 | disposition short-term general hospital (02) ==
PROVIDERS: Physician Assistant; Emergency Provider Surgery; Visit Provider Surgery
DX: S72.24XA Nondisplaced subtrochanteric fracture of right femur, initial encounter for closed fracture (principal); G82.20 Paraplegia, unspecified; X58.XXXA Exposure to other specified factors, initial encounter; M89.8X8 Other specified disorders of bone, other site; I25.10 Atherosclerotic heart disease of native coronary artery without angina pectoris; I10 Essential (primary) hypertension; F17.200 Nicotine dependence, unspecified, uncomplicated; Z74.01 Bed confinement status; Z95.5 Presence of coronary angioplasty implant and graft; Z79.01 Long term (current) use of anticoagulants; Z79.82 Long term (current) use of aspirin; Z79.899 Other long term (current) drug therapy
CPT/HCPCS: 73502; 80048; 85025; 96374; 96375; 99285; A4216; J2405

== ENCOUNTER 2024-06-11 16:18 | Inpatient (IN) | payer OTHER, SELFPAY ==
[2024-06-11 16:19] VITALS: BP 163/100; PULSE 95; RESP 16; TEMP 36.9; O2SAT 98; BMI 26.0
--- NOTE | 2024-06-11 16:39 | EX.ED.DYSGE1 ---
HPI History of Present Illness Chief Complaint: Lower Extremity Injury Detail of Chief Complaint: Generalized weakness and right hip pain Informant: patient Narrative Narrative: Patient presents to the emergency department via EMS from home. Patient is a paraplegic. He apparently had some physical therapy about 7 weeks ago and felt a pop in his right hip and was seen in the emergency department where he was diagnosed with a right intertrochanteric hip fracture. Patient was transferred to [facility] for definitive care as he had some lytic lesions in his femur. Patient cannot really tell me why he was there what they did or what he was told. His has not arrived to the emergency department yet. I am told that patient has been unable to get in with the [facility] where he normally gets his care and the 's concerned about his hip. Patient only states that he has had some flulike symptoms and that he has been just been feeling achy all over since yesterday. Patient generally feels weak. He denies fever. Denies cough. Denies vomiting or diarrhea. He denies abdominal pain. 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 Neurogenic bladder Benign essential hypertension Home Medications ?Medication ?Instructions ?Recorded ?Last Taken ?Type baclofen 20 mg tablet 20 mg PO TID muscle spasms 02/26/13 06/27/21 History multivitamin with folic acid 400 1 tab PO LUNCH supplemeny 02/26/13 06/27/21 History mcg tablet (Thera) gabapentin 100 mg capsule 900 mg PO TID neuropathy 04/19/13 06/27/21 History nortriptyline 50 mg capsule 100 mg PO QHS anxiety 01/19/19 06/26/21 History ascorbic acid (vitamin C) 1,000 mg 1 g PO DAILY Check with primary 06/28/21 Unknown History tablet (Vitamin C) doctor cholecalciferol (vitamin D3) 50 50 mcg PO DAILY Check with primary 06/28/21 Unknown History mcg (2,000 unit) capsule (Vitamin doctor D3) docusate sodium 100 mg capsule 100 mg PO BID Check with primary 06/28/21 Unknown History doctor doxycycline monohydrate 100 mg 100 mg PO BID Check with primary 06/28/21 Unknown History capsule doctor loratadine 10 mg capsule 10 mg PO DAILY Check with primary 06/28/21 Unknown History doctor venlafaxine 75 mg tablet 75 mg PO DAILY Check with primary 06/28/21 Unknown History doctor apixaban 2.5 mg tablet (Eliquis) 2.5 mg PO BID 30 days #60 tabs 06/29/21 Unknown Rx aspirin 81 mg tablet,delayed 81 mg PO BREAKFAST 30 days #30 tabs 06/29/21 Unknown Rx release carvedilol 6.25 mg tablet 6.25 mg PO BID 30 days #60 tabs 06/29/21 Unknown Rx rosuvastatin 10 mg tablet (Crestor) 10 mg PO DAILY #30 tabs 06/29/21 Unknown Rx ticagrelor 90 mg tablet (Brilinta) 90 mg PO BID 30 days #60 tabs 06/29/21 Unknown Rx lisinopril 2.5 mg tablet 2.5 mg PO DAILY #30 tabs 07/06/21 Unknown Rx lorazepam 0.5 mg tablet (Ativan) 0.5 mg PO BID PRN nausea and 05/22/22 Unknown Rx vomiting #6 tabs ondansetron 4 mg disintegrating 4 mg PO Q6H PRN nausea and 05/22/22 Unknown Rx tablet vomiting #10 tabs ciprofloxacin HCl 500 mg tablet 500 mg PO BID #14 tabs 06/06/22 Unknown Rx ondansetron 4 mg disintegrating 4 mg PO Q8H PRN nausea and 06/06/22 Unknown Rx tablet vomiting #10 tabs Allergy/AdvReac Type Severity Reaction Status Date / Time No Known Allergies Allergy Verified 06/11/24 16:19 Family History Father CVA (cerebral vascular accident) Heart disease Myocardial infarction Surgical History History of coronary artery stent placement (06/28/21) History of femoral derotational osteotomy History of appendectomy History of suprapubic catheter Hx of colostomy Colostomy in place Social History household members: spouse Smoking Status: Light Smoker (<10/day) alcohol intake: former substance use type: marijuana ROS ROS ED Review of Systems ROS Unobtainable: other Constitutional Constitutional ED: Reports lethargy; Denies chills, fever(s), sweats or weight loss Eyes Eyes: Denies blurry vision, change in vision or diplopia ENT ENT ED: Denies rhinorrhea or sore throat Cardiovascular Cardiovascular: Denies chest pain, orthopnea or racing heartbeat Respiratory/Chest Respiratory/Chest: Denies cough, dyspnea, dyspnea on exertion, orthopnea or sputum Gastrointestinal Gastrointestinal: Denies abdominal pain, diarrhea, nausea or vomiting Genitourinary Genitourinary ED: Denies dysuria, hematuria or urinary frequency Musculoskeletal Musculoskeletal: Reports myalgias and other Details: Right hip pain ; Denies arthralgias, back pain or neck pain Integumentary Denies abscess, Abrasions or rash Neurologic Neurologic: Denies headache(s) or weakness Psychiatric Psychiatric: Denies anxiety, depression or suicidal thoughts Endocrine Endocrinology: Denies polydipsia, polyphagia or polyuria Hematologic/Lymphatic Hematologic/Lymphatic: Denies easy bleeding, easy bruising or lymphadenopathy Allergic/Immunologic Allergic/Immunologic ED: Denies mouth swelling, tongue swelling or urticaria EXAM Physical Exam Const Vital Signs: 06/11/24 16:19 06/11/24 18:18 06/11/24 20:00 Temperature 98.4 F Temperature Source Oral Pulse Rate 95 78 86 Respiratory Rate 16 18 17 Blood Pressure 163/100 H 178/95 H 160/97 H Blood Pressure Mean 121 122 118 Pulse Ox 98 96 97 Oxygen Delivery Method Room Air Room Air 06/11/24 20:56 06/11/24 20:56 Temperature 97 F L 98 F Temperature Source Oral Pulse Rate 84 87 Respiratory Rate 16 16 Blood Pressure 160/95 H 160/95 H Blood Pressure Mean 116 116 Pulse Ox 97 97 Oxygen Delivery Method Room Air Positive well nourished and well developed General Appearance ED: well developed and NAD HEENT Reports TM's clear and moist mucous membranes normocephalic and atraumatic; Negative for trauma or tenderness Tympanic Membrane ED: Yes TM's clear Eyes PERRL and EOMs intact bilaterally General Eye ED: Negative for pale conjunctiva or scleral icterus Neck no lymphadenopathy, supple and no JVD General: Negative for tenderness Chest Wall inspection of chest normal and palpation of chest normal Chest: Negative for tenderness Resp normal respiratory effort and clear to auscultation bilaterally Effort and Inspection: Negative for respiratory distress or pain with movement Auscultation: Negative for rhonchi, wheezes or diminished lung sounds Cardio regular rate, regular rhythm, S1 normal heart sound, S2 normal heart sound and no murmurs Peripheral Pulses: pulses 2+ throughout GI normal to inspection, nondistended, normoactive bowel sounds, soft to palpation, non-tender, non-distended and no masses GI Narrative: Patient has colostomy in left lower quadrant Narrative: Patient has suprapubic catheter in place Back/Spine no CVA tenderness and no thoracic nor lumbar tenderness Extremity Extremity Narrative: Right lower extremity contracted and flexed at the knee. Difficult to assess for shortening or rotational deformity. Extremities are flaccid. Vascularly intact. General Extremety ED: Negative for edema General Extremity: Negative for edema Neuro oriented x3, CN's II-XII intact bilaterally, no sensory deficits noted and gait normal Sensorium / Orientation: awake, alert, oriented to person, oriented to place and oriented to time Motor Exam: strength 5/5 throughout and strength abnormal Psych mental status grossly normal Skin no rashes or lesions noted and no wounds MDM MDM MDM Narrative Medical decision making narrative: Patient presents to the emergency department after a a fall that occurred about 7 weeks ago. He has a fracture of his right hip. He was evaluated at [facility] and after discussing with his they did not feel he was a surgical candidate and they [facility] Patient per 's been more weak and she is concerned he may have a UTI. IV line established. CBC with differential obtained showed white count of 12.7 with hemoglobin 15.4 and platelet count of 416. Chemistries unremarkable. LFTs were normal. Lactate was 1.4 and urinalysis positive for UTI. We did send off a urine culture. He was started on Rocephin 1 g IV. I did obtain a venous Doppler of the right lower extremity and there was no evidence of DVT. X-rays of the right hip obtained did show fracture that is now more angulated than when compared with prior x-ray. Discussed results with patient's and the patient. Patient was medicated initially with morphine and Zofran for pain and continues to have pain. He is not comfortable going home given the pain that he is having in the UTI. Will recommend admission and discussed with hospitalist. It is my understanding from discussion with patient and his that he is not a surgical candidate for the hip as he is not ambulatory. Lab Data Attestation: I reviewed the patient's lab results. Labs: Laboratory Results - last 24 hr 06/11/24 06/11/24 17:05 17:28 WBC 12.7 H RBC 5.58 Hgb 15.4 Hct 47.0 MCV 84.2 MCH 27.6 MCHC 32.8 RDW Std Deviation 48.9 H RDW Coeff of Bhanu 16.1 H Plt Count 416 MPV 8.9 Immature Gran % (Auto) 0.400 Neut % (Auto) 75.6 H Lymph % (Auto) 17.0 L Cata[place] % (Auto) 6.0 Eos % (Auto) 0.7 Baso % (Auto) 0.3 Absolute Neuts (auto) 9.6 H Absolute Lymphs (auto) 2.16 Nucleated RBC % 0 Sodium 140 Potassium 3.4 L Chloride 106 Carbon Dioxide 25.0 Anion Gap 9 BUN 12 Creatinine 0.61 L Estim Creat Clear Calc 123.95 Est GFR (MDRD) Af Amer 172 Est GFR (MDRD) Non-Af 142 BUN/Creatinine Ratio 19.7 Glucose 107 H Lactic Acid 1.4 Calcium 9.5 Total Bilirubin 0.40 AST 10 L ALT 10 L Alkaline Phosphatase 168 H Troponin I High Sens 6 Total Protein 7.8 Albumin 2.8 L Globulin 5.0 H Albumin/Globulin Ratio 0.6 L Urine Color Yellow Urine Clarity Cloudy Urine pH 6.0 Ur Specific [place] 1.025 Urine Protein 100 H Urine Glucose (UA) Normal Urine Ketones 150 A* Urine Occult Blood 250 H Urine Nitrite Positive H Urine Bilirubin Negative Urine Urobilinogen Normal Ur Leukocyte Esterase 500 H Urine RBC 25-50 SEEN Urine WBC >100 SEEN Ur Squamous Epith Cells 0-5 SEEN Calcium Oxalate Crystal 1+ Urine Bacteria 4+ Urine Mucus 2+ Radiography Diagnostic Testing: Clinical Impression(s) from Imaging Studies Chest X-Ray 06/11/24 17:45 IMPRESSION: Multifocal interstitial thickening most pronounced right upper lobe possibly inflammatory. Clinical correlation recommended. Electronically Signed: Bautista De La Paz MD at 18:32 EST , Hip/Pelvis X-Ray 06/11/24 17:45 IMPRESSION: Old deformity of the hips. Proximal right femoral shaft fracture with increase in displacement since the previous study. Electronically Signed: Garry Cobian DO at 18:47 EST , Venous Duplex 06/11/24 18:21 IMPRESSION: No sonographic evidence of deep venous thrombosis. Electronically Signed: Garry Cobian DO at 20:09 EST , 1 view chest x-ray obtained interpreted by myself as increased markings bilaterally but greater on the right upper lobe. [place] this may be chronic. Radiology agreed but felt this may be an inflammatory process. Recommend clinical correlation. I do not think patient has pneumonia. Three-view x-rays of the right hip and pelvis obtained interpreted by myself as fracture of the right hip with angulation with malunion when compared with prior x-ray. 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, Acute hip pain Prescriptions: No Action baclofen 20 MG tablet 20 mg PO TID Patient Comments: MUSCLE SPASMS multivitamin with folic acid [Thera] 1 TABLET tablet 1 tab PO LUNCH Patient Comments: SUPPLEMENT gabapentin 100 MG capsule 900 mg PO TID Patient Comments: NEUROPATHY nortriptyline 50 MG capsule 100 mg PO QHS ascorbic acid (vitamin C) [Vitamin C] 1,000 mg Tablet 1 g PO DAILY venlafaxine 75 mg Tablet 75 mg PO DAILY doxycycline monohydrate 100 mg Capsule 100 mg PO BID docusate sodium 100 mg Capsule 100 mg PO BID cholecalciferol (vitamin D3) [Vitamin D3] 50 mcg (2,000 unit) Capsule 50 mcg PO DAILY loratadine 10 mg Capsule 10 mg PO DAILY carvedilol 6.25 mg Tablet 6.25 mg PO BID 30 Days Qty: 60 0RF aspirin 81 mg Tablet,Delayed Release (Dr/Ec) 81 mg PO BREAKFAST 30 Days Qty: 30 0RF Brilinta 90 mg Tablet 90 mg PO BID 30 Days Qty: 60 0RF Eliquis 2.5 mg Tablet 2.5 mg PO BID 30 Days Qty: 60 0RF rosuvastatin [Crestor] 10 mg tablet 10 mg PO DAILY Qty: 30 0RF ondansetron 4 mg tablet,disintegrating 4 mg PO Q6H PRN (Reason: nausea and vomiting) Qty: 10 0RF lorazepam [Ativan] 0.5 mg tablet 0.5 mg PO BID PRN (Reason: nausea and vomiting) Qty: 6 0RF ciprofloxacin HCl 500 mg tablet 500 mg PO BID Qty: 14 0RF ondansetron 4 mg tablet,disintegrating 4 mg PO Q8H PRN (Reason: nausea and vomiting) Qty: 10 0RF lisinopril 2.5 mg tablet 2.5 mg PO DAILY Qty: 30 11RF [facility] [[facility] Provider] - Print Language: Yoruba
[2024-06-11 17:18] LABS: Absolute Lymphocyte Count 2.16 X10^3/uL (0.83-4.51); Absolute Neutrophil Count 9.6 X10^3/uL (2.0-7.7); Basophil# 0.04 X10^3/uL; Basophil% 0.3 % (0-1); Eosinophil# 0.09 X10^3/uL; Eosinophils% 0.7 % (0-5); Hemoglobin 15.4 g/dL (13.0-16.5); Lymphocyte # 2.16 X10^3/ul (0.83-4.51); Mean Corp Hgb Conc 32.8 g/dL (32-36); Mean Corpuscular Hgb 27.6 pg (27.0-32.0); Mean Corpuscular Volume 84.2 fL (80-94); Mean Platelet Vol. 8.9 fl (6.2-12.0); Monocyte# 0.76 X10^3/uL; NRBC Flagged by Analyzer 0 % (0-5); Neutrophil # 9.58 X10^3/uL (2.7-7.7); Neutrophil % 75.6 % (47-70); Platelet Count 416 K/mm3 (150-450); RBC Distribution Width CV 16.1 % (11.6-14.6); RBC Distribution Width SD 48.9 fl (35.1-43.9); Red Blood Count 5.58 M/mm3 (4.6-6.2); White Blood Count 12.7 K/mm3 (4.4-11.0)
[2024-06-11] MEDS: 0.9% Normal Saline (1000mL) 1,000 ML 1000 ML IV (17:21)
--- NOTE | 2024-06-11 17:45 | RAD_ITS ---
STUDY: X-RAY CHEST REASON FOR EXAM: Male, 64 years old. weakness TECHNIQUE: AP portable COMPARISON: June 06, 2022 FINDINGS: Nonspecific interstitial thickening in the lower lobes more pronounced in the upper lobe possibly inflammatory.. There is no demonstrated pleural abnormality. Normal size heart. Normal mediastinum and caryl. Normal visualized pulmonary arteries. Normal visualized aortic arch and descending thoracic aorta. Dorsal spine demonstrates scoliosis and mild degenerative change. Normal visualized ribs, clavicles, and shoulders. There is no demonstrated abnormality of the visualized soft tissue structures of the upper abdomen. RAD/Chest 1 View (Portable) IMPRESSION: Multifocal interstitial thickening most pronounced right upper lobe possibly inflammatory. Clinical correlation recommended. Electronically Signed: Bautista De La Paz MD at 18:32 EST ,
--- NOTE | 2024-06-11 17:45 | RAD_ITS ---
INDICATION: pain EXAMINATION/TECHNIQUE: X-RAY - XR Hip Unilateral with Pelvis when performed; 2-3 Views COMPARISON: May 03, 2024 FINDINGS: Chronically dislocated right hip. Proximal femoral shaft fracture with increasing displacement since the previous study. Old deformity of the left hip. The pubic symphysis is intact. The SI joints are skeletally symmetrical. RAD/HIP, UNI W/ Pelvis 2-3 Views IMPRESSION: Old deformity of the hips. Proximal right femoral shaft fracture with increase in displacement since the previous study. Electronically Signed: Garry Cobian DO at 18:47 EST Reading Location ID and State: [facility] / [place] Tel [phone], Service support ,
[2024-06-11 17:46] LABS: ALB/GLOB Ratio 0.6 RATIO (0.9-2.4); AST(SGOT) 10 U/L (15-37); Alanine Aminotransfer ALT/SGPT 10 U/L (16-61); Albumin, Serum 2.8 g/dL (3.2-5.0); Alkaline Phosphatase 168 U/L (45-117); Anion Gap 9 (5-15); BUN 12 mg/dL (7-18); BUN/Creat Ratio 19.7 RATIO (10-20); Calcium,Total 9.5 mg/dL (8.5-10.1); Chloride 106 mmol/L (98-107); Creatinine, Serum 0.61 mg/dL (0.70-1.30); EST Glomerular Filtration Rate 142 mL/min (>60); Est Glom Filt Rate - Afr Amer 172 mL/min (>60); Estimated Creatinine Clearance 123.95 ml/min; Glucose 107 mg/dL (74-106); Potassium 3.4 mmol/L (3.5-5.1); Protein, Total 7.8 g/dL (6.4-8.2); Sodium Level 140 mmol/L (136-145); Troponin-I HS 6 pg/mL (3.0-78.0)
[2024-06-11 17:50] LABS: Color, Urine Yellow (Yellow); Glucose, Dipstick Normal (Normal); Leukocyte Esterase-Dipstick 500 /ul (Negative); Nitrite-Dipstick Positive (Negative); Occult Blood-Urine 250 /ul (Negative); Protein-Dipstick 100 mg/dl (Negative); Specific Gravity, Urine 1.025 (1.002-1.030); Urine Bilirubin Dipstick Negative (Negative); Urine Clarity Cloudy (Clear); Urine Urobilinogen Normal (Normal)
[2024-06-11 17:52] LABS: Lactic Acid 1.4 mmol/L (0.4-1.9)
[2024-06-11 18:05] LABS: Ketone-Dipstick 150 mg/dl (Negative)
[2024-06-11 18:06] LABS: Bacteria 4+ /hpf (None Seen); Calcium Oxalate Crystals Ur 1+ /hpf (<or=2+); Mucous, Urine 2+ /hpf (<or=2+); Red Blood Cells-Urine 25-50 SEEN /hpf (0-5); Squamous Epithelial Cells - UA 0-5 SEEN /hpf (0-5); White Blood Cells >100 SEEN /hpf (0-5)
[2024-06-11] MEDS: Ondansetron 4 MG/2 ML Vial IV (18:08)
[2024-06-11] MEDS: Morphine 4 MG/ML Syringe IV ×2 (18:08→22:52)
[2024-06-11 18:18] VITALS: BP 178/95; PULSE 78; RESP 18; O2SAT 96
--- NOTE | 2024-06-11 18:21 | US_ITS ---
INDICATION: RT LEG PAIN EXAMINATION: Ultrasound US Venous Duplex RLE Unilat / Limited TECHNIQUE: Al scale, pulse wave, and color flow Doppler imaging was performed of the lower extremity venous system. The bilateral greater saphenous, common femoral, femoral, and popliteal veins were interrogated. COMPARISON: FINDINGS: There is normal compression, augmentation, and signal throughout the visualized deep lower extremity veins. No mass or fluid collection. US/Venous Duplex Imag/Limited/Uni IMPRESSION: No sonographic evidence of deep venous thrombosis. Electronically Signed: Garry Cobian DO at 20:09 EST Reading Location ID and State: [facility] / [place] Tel [phone], Service support ,
[2024-06-11] MEDS: Ceftriaxone 1 GM/50 ML BAG IV (19:02)
[2024-06-11 20:00] VITALS: BP 160/97; PULSE 86; RESP 17; O2SAT 97
--- NOTE | 2024-06-11 20:47 | ED.RN ---
[facility] CALL[facility], CH[facility] FAXED [phone]
[2024-06-11 20:56] VITALS: BP 160/95; PULSE 84; PULSE 87; RESP 16; TEMP 36.1; TEMP 36.6; O2SAT 97
--- NOTE | 2024-06-11 21:13 | PCM.HP.STD ---
[facility] - General General Date of Admission: 06/11/24 Date of Service: 06/11/24 Chief Complaint: Right Hip Pain, Lethargy and Generalized Weakness. HPI Narrative KALEN RUFFIN, is a 64 M with a past medical history of essential hypertension; on carvedilol and lisinopril, hyperlipidemia; on rosuvastatin, overweight; with a BMI of 26 this admission, history of tobacco abuse, history of cannabis abuse, history of heavy alcohol abuse, history of CAD; s/p proximal LAD stent (2021) on baby aspirin and ticagrelor, history of X; on apixaban, history of paraplegia, history of transverse myelitis; with neurogenic bladder and history of suprapubic catheter, history of acute paralytic poliomyelitis, history of muscle spasticity; on baclofen 20 mg TID, history of neuropathy; on gabapentin, history of femoral derotational osteotomy, history of appendectomy, history of colostomy, depression with anxiety; on venlafaxine, nortriptyline and as needed lorazepam BID and history of osteomyelitis of the R and history of a pop in his right hip that occurred ~7 weeks ago while he was undergoing PT; with subsequent intertrochanteric Right hip fracture suspected to be due to lytic lesions in his femur - s/p evaluation at [facility] with patient not felt to be a surgical candidate and recommended to follow-up with the [facility] who presents to [facility] ER complaining of worsening Right hip pain, lethargy and generalized weakness. Mr. Ruffin is a suboptimal historian at this time. Mr. Ruffin's is concerned because he is becoming increasingly weak and this has been a sign in the past of UTI. The patient is a suboptimal historian but he states that he has had some flulike symptoms over the past 24 hours with generalized muscle aches and malaise. He denies associated fever, chills, abdominal pain, nausea, vomiting, diarrhea, constipation, chest pain or SOB. The patient denies currently drinking alcohol but his states he, smokes like a chimney. In the ER he was noted to have laboratory evidence of Acute Cystitis; with microscopic hematuria likely due to chronic suprapubic catheter with a corresponding Leukocytosis of 12.7 K present on admission complicated by Hypokalemia of 3.4 mmol/L present on admission along with a chest x-ray suggestive of multifocal interstitial thickening most pronounced in the right upper lobe; with clinical correlation recommended for possible Pneumonia and hip x-ray that revealed proximal right femoral shaft fracture with increase in displacement since previous study plus he underwent venous duplex of the lower extremities which were negative for DVT. He was then admitted to the general medical floor for ongoing care for stay that is expected to extend beyond 2 midnights. [facility] Medical History Atherosclerotic heart disease of [place] coronary artery without angina pectoris Depression Chronic indwelling Lima catheter Heavy alcohol use Anxiety and depression Acute paralytic poliomyelitis, wild virus, indigenous Osteomyelitis of right femur Transverse myelitis Neurogenic bladder Benign essential hypertension Home Medications ?Medication ?Instructions ?Recorded ?Last Taken ?Type baclofen 20 mg tablet 20 mg PO TID muscle spasms 02/26/13 06/27/21 History multivitamin with folic acid 400 1 tab PO LUNCH supplemeny 02/26/13 06/27/21 History mcg tablet (Thera) gabapentin 100 mg capsule 900 mg PO TID neuropathy 04/19/13 06/27/21 History nortriptyline 50 mg capsule 100 mg PO QHS anxiety 01/19/19 06/26/21 History ascorbic acid (vitamin C) 1,000 mg 1 g PO DAILY Check with primary 06/28/21 Unknown History tablet (Vitamin C) doctor cholecalciferol (vitamin D3) 50 50 mcg PO DAILY Check with primary 06/28/21 Unknown History mcg (2,000 unit) capsule (Vitamin doctor D3) docusate sodium 100 mg capsule 100 mg PO BID Check with primary 06/28/21 Unknown History doctor doxycycline monohydrate 100 mg 100 mg PO BID Check with primary 06/28/21 Unknown History capsule doctor loratadine 10 mg capsule 10 mg PO DAILY Check with primary 06/28/21 Unknown History doctor venlafaxine 75 mg tablet 150 mg PO DAILY Check with primary 06/28/21 Unknown History doctor apixaban 2.5 mg tablet (Eliquis) 2.5 mg PO BID 30 days #60 tabs 06/29/21 Unknown Rx aspirin 81 mg tablet,delayed 81 mg PO BREAKFAST heart health 30 06/29/21 Unknown Rx release days #30 tabs carvedilol 6.25 mg tablet 6.25 mg PO BID heart 30 days #60 06/29/21 Unknown Rx tabs rosuvastatin 10 mg tablet (Crestor) 10 mg PO DAILY #30 tabs 06/29/21 Unknown Rx ticagrelor 90 mg tablet (Brilinta) 90 mg PO BID 30 days #60 tabs 06/29/21 Unknown Rx lisinopril 2.5 mg tablet 2.5 mg PO DAILY #30 tabs 07/06/21 Unknown Rx lorazepam 0.5 mg tablet (Ativan) 0.5 mg PO BID PRN nausea and 05/22/22 Unknown Rx vomiting #6 tabs ondansetron 4 mg disintegrating 4 mg PO Q6H PRN nausea and 05/22/22 Unknown Rx tablet vomiting #10 tabs ciprofloxacin HCl 500 mg tablet 500 mg PO BID #14 tabs 06/06/22 Unknown Rx ondansetron 4 mg disintegrating 4 mg PO Q8H PRN nausea and 06/06/22 Unknown Rx tablet vomiting #10 tabs buprenorphine 10 mcg/hour weekly 1 patch transdermal Q7D pain 06/11/24 Unknown History transdermal patch Allergy/AdvReac Type Severity Reaction Status Date / Time No Known Allergies Allergy Verified 06/11/24 16:19 Family History Father CVA (cerebral vascular accident) Heart disease Myocardial infarction Surgical History History of coronary artery stent placement (06/28/21) History of femoral derotational osteotomy History of appendectomy History of suprapubic catheter Hx of colostomy Colostomy in place Social History household members: spouse Smoking Status: Light Smoker (<10/day) alcohol intake: former substance use type: marijuana ROS ROS Narrative Review of Systems: Constitutional: Patient admits to lethargy but he denies fever or chills. Eyes: Patient denies changes in vision or discharge from eyes. ENT: Patient denies runny nose, sore throat or ear pain. Resp: Patient denies shortness of breath or cough. CV: Patient denies chest pain, palpitations or heart racing. GI: Patient denies abdominal pain, nausea, vomiting, diarrhea or constipation. : Patient has chronic indwelling Lima but he denies dysuria or hematuria. MSK: Patient admits to diffuse myalgias and chronic right hip pain that is essentially unchanged from previous. Skin: Patient denies rash, abscess or jaundice. Psych: Patient denies symptoms of uncontrolled depression or anxiety. Neuro: Patient denies headache, paresthesias or focal neurologic deficits but he does have chronic paraplegia as per HPI. Allergy: Patient denies lip swelling, tongue swelling or urticaria. Hematology: Patient denies easy bleeding or easy bruisability. Endocrinology: Patient denies polyuria, polydipsia or polyphagia. 14 point review of systems otherwise negative except for positives noted above in HPI. Vital Signs Vital Signs Vital Signs: 06/11/24 16:19 06/11/24 18:18 06/11/24 20:00 Temperature 98.4 F Temperature Source Oral Pulse Rate 95 78 86 Respiratory Rate 16 18 17 Blood Pressure 163/100 H 178/95 H 160/97 H Blood Pressure Mean 121 122 118 Pulse Ox 98 96 97 Oxygen Delivery Method Room Air Room Air 06/11/24 20:56 06/11/24 20:56 Temperature 97 F L 98 F Temperature Source Oral Pulse Rate 84 87 Respiratory Rate 16 16 Blood Pressure 160/95 H 160/95 H Blood Pressure Mean 116 116 Pulse Ox 97 97 Oxygen Delivery Method Room Air Weight Weight: 176 lb 5.917 oz Body Mass Index (BMI) 26.0 Physical Exam Const alert, oriented x3 and no apparent distress Constitutional Narrative: Patient appears chronically ill and older than his stated age. General Appearance: cooperative HEENT normocephalic, head/scalp atraumatic, hearing grossly normal bilaterally and moist oral mucous membranes Eyes PERRL and EOMs intact bilaterally Neck no lymphadenopathy and supple Resp Resp Narrative: Mildly decreased breath sounds over Right upper lobe. Cardio regular rate and regular rhythm GI normal to inspection, nondistended, normoactive bowel sounds, soft to palpation, non-tender and non-distended GI Narrative: Colostomy in place in LLQ. Patient also has suprapubic catheter in place. Extremity Extremity Narrative: Patient's Right lower extremity contracted and flexed at the knee with extremities notably flaccid with no signs of edema or vascular compromise. Skin Skin Narrative: Patient has multiple stage III-IV sacral decubiti without obvious evidence of acute infection. Neuro oriented x3 and CN's II-XII intact bilaterally Sensorium / Orientation: awake, alert, oriented to person, oriented to place and oriented to time Speech: speech normal Psych affect normal Results Medical Records Data Attestation: I reviewed the patient's medical records Lab / Micro Data Attestation: I reviewed the patient's lab results. 06/11/24 17:05 06/11/24 17:05 Labs: Laboratory Results - last 24 hr 06/11/24 17:05: WBC 12.7 H, RBC 5.58, Hgb 15.4, Hct 47.0, MCV 84.2, MCH 27.6, MCHC 32.8, RDW Std Deviation 48.9 H, RDW Coeff of Bhanu 16.1 H, Plt Count 416, MPV 8.9, Immature Gran % (Auto) 0.400, Neut % (Auto) 75.6 H, Lymph % (Auto) 17.0 L, [place] % (Auto) 6.0, Eos % (Auto) 0.7, Baso % (Auto) 0.3, Absolute Neuts (auto) 9.6 H, Absolute Lymphs (auto) 2.16, Nucleated RBC % 0, Sodium 140, Potassium 3.4 L, Chloride 106, Carbon Dioxide 25.0, Anion Gap 9, BUN 12, Creatinine 0.61 L, Estim Creat Clear Calc 123.95, Est GFR (MDRD) Af Amer 172, Est GFR (MDRD) Non-Af 142, BUN/Creatinine Ratio 19.7, Glucose 107 H, Lactic Acid 1.4, Calcium 9.5, Total Bilirubin 0.40, AST 10 L, ALT 10 L, Alkaline Phosphatase 168 H, Troponin I High Sens 6, Total Protein 7.8, Albumin 2.8 L, Globulin 5.0 H, Albumin/Globulin Ratio 0.6 L 06/11/24 17:28: Urine Color Yellow, Urine Clarity Cloudy, Urine pH 6.0, Ur Specific Jackson 1.025, Urine Protein 100 H, Urine Glucose (UA) Normal, Urine Ketones 150 A*, Urine Occult Blood 250 H, Urine Nitrite Positive H, Urine Bilirubin Negative, Urine Urobilinogen Normal, Ur Leukocyte Esterase 500 H, Urine RBC 25-50 SEEN, Urine WBC >100 SEEN, Ur Squamous Epith Cells 0-5 SEEN, Calcium Oxalate Crystal 1+, Urine Bacteria 4+, Urine Mucus 2+ Micro: Microbiology 06/11/24 16:56 Mucosa - Nose SARS-CoV-2, Influenza & RSV (PCR) - Final Imaging Radiology Impression Chest X-Ray 06/11/24 17:45 IMPRESSION: Multifocal interstitial thickening most pronounced right upper lobe possibly inflammatory. Clinical correlation recommended. Electronically Signed: Kalen De La Paz MD at 18:32 EST , Hip/Pelvis X-Ray 06/11/24 17:45 IMPRESSION: Old deformity of the hips. Proximal right femoral shaft fracture with increase in displacement since the previous study. Electronically Signed: Garry Cobian DO at 18:47 EST , Venous Duplex 06/11/24 18:21 IMPRESSION: No sonographic evidence of deep venous thrombosis. Electronically Signed: Garry Cobian DO at 20:09 EST , [facility] Imaging Services [address] [place] [id number] Chest without Contrast MR#: [id number] Acct: [id number] Name: KALEN RUFFIN Rep #: [id number] : 1960 Rylee 64 From: Kalen De La Paz MD PCP: [facility] Status: ADM IN Study: Chest without Contrast Date of Exam: 06/11/24 Exam# [id number] Ordering Dr: Ronak Quiroz DO INDICATION: Suspected RUL PNA on CXR. EXAMINATION: CT CHEST WITHOUT CONTRAST - CT Chest W/O Contrast Injection TECHNIQUE: Helically acquired images were obtained of the chest. A radiation dose optimization technique was used for this scan. IV Contrast dosage and agent: None. COMPARISON: None. FINDINGS: LUNGS, PLEURA AND LARGE AIRWAYS: Mild atelectasis in the left lower lobe.. There are 2 subcentimeter noncalcified nodules in the right lower lobe of uncertain etiology. Minor interstitial thickening in the right upper lobe No pleural effusion or thickening. No pneumothorax. THYROID: No thyroid lesions. HEART AND PERICARDIUM: Heart size is normal. No pericardial effusion. CORONARY ARTERIES: Mild multivessel coronary artery calcification VESSELS: Minor atherosclerotic change of the aorta without evidence for aneurysm. MEDIASTINUM AND ANTOINE: No mediastinal or hilar adenopathy. Esophagus is unremarkable. No hiatal hernia. UPPER ABDOMEN: No acute pathology. BONES: Dorsal spine demonstrates mild spondylosis No suspicious lytic or blastic abnormality. CT/Chest without Contrast IMPRESSION: Mild left lower lobe atelectasis. Minor interstitial thickening and subcentimeter noncalcified nodules in the right lower lobe of indeterminate etiology Would recommend clinical correlation and additional follow-up imaging utilizing Fleischner Society criteria if clinically warranted Electronically Signed: Kalen De La Paz MD at 22:35 EST Reading Location ID and State: [facility] / [place] Tel [phone], Service support , CC: Dr. 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 Acute Cystitis; with microscopic hematuria likely due to chronic suprapubic catheter with a corresponding Leukocytosis of 12.7 K present on admission - Admit to general medical floor. Continue IV Rocephin begun in the ER and await culture and sensitivity data. Give Tylenol prn for [id number] (level 1-5/10) pain or fever. Give morphine IV prn for severe (level 6-10/10) pain. 2. Chest x-ray suggestive of multifocal interstitial thickening most pronounced in the Right upper lobe; with clinical correlation recommended for possible Pneumonia complicating #1 - Continue broad-spectrum antibiotics with IV azithromycin added and check CT of chest to confirm suspicion. Check urinary antigens to Streptococcus pneumonia and Legionella. Give Mucinex prn. 3. Metabolic encephalopathy arising from #1 & #2 - Continue supportive care as outlined above and monitor for improvement. Check TSH, B12, folate and UDS to evaluate for potential reversible causes of confusion. 4. Hypokalemia of 3.4 mmol/L present on admission compounding #1 - #3 - Give supplemental KCl and then recheck level in AM to confirm correction. 5. Chronic Paraplegia with history of transverse myelitis; with neurogenic bladder and history of suprapubic catheter superimposed acute Generalized Weakness and Lethargy attributable to #1 - #4 with numerous stage III-IV sacral decubiti noted on admission - Wound RN to see patient on-rounds in the AM with help appreciated in advance. Finally, we will consult PT/OT and Case Management on-rounds in the AM for further recommendations with help appreciated in advance. 6. History of a pop in his Right hip that occurred ~7 weeks ago while he was undergoing PT; with subsequent intertrochanteric Right hip fracture suspected to be due to lytic lesions in his femur; s/p evaluation at [facility] with patient not felt to be a surgical candidate and recommended to follow-up with the [facility] adding to the medical complexity of #1 - #5 - Noted. 7. History of CAD; s/p proximal LAD stent (2021) on baby aspirin and ticagrelor - Resume BASA and ticagrelor as previous. 8. History of tobacco abuse - Tobacco Cessation will be strongly encouraged with Nicotine patch offered to control cravings. 9. History of cannabis abuse - Cannabis Cessation will be strongly encouraged. 10. Essential hypertension; on carvedilol and lisinopril - Maintain current regimen as before. 11. Hyperlipidemia; on rosuvastatin - Hold statin in case of possible myotoxicity contributing to #4. 12. Overweight; with a BMI of 26 this admission - Weight loss will be recommended. Check TSH. 13. History of heavy alcohol abuse - Patient denies recent EtOH use. 14. History of X; on apixaban - Noted. Patient's current medication reconciliation is waiting to be finalized when his brings his active medication list but according to ER physician patient is not taking this medication. 15. History of acute paralytic poliomyelitis - Noted. 16. History of muscle spasticity; on baclofen 20 mg TID - Resume baclofen as previous. 17. History of neuropathy; on gabapentin - Maintain gabapentin at current dose and schedule. 18. History of femoral derotational osteotomy - Noted. 19. History of appendectomy - Noted. 20. History of colostomy - Noted. 21. Depression with anxiety; on venlafaxine, nortriptyline and as needed lorazepam BID - Current plan to be continued. 22. History of osteomyelitis of the Right hip - Noted. 23. DVT prophylaxis - Heparin 5,000 units SQ TID. Total time: Approximately (but not less than) 75 minutes. Charges/Coding Visit Charges Inpatient E&M: 63009 Init Hosp L3
--- NOTE | 2024-06-11 21:40 | ED.RN ---
[facility] called requesting update. updated on admission. [facility] stating he would contact hospital tomorrow.
--- NOTE | 2024-06-11 21:45 | CT_ITS ---
INDICATION: Suspected RUL PNA on CXR. EXAMINATION: CT CHEST WITHOUT CONTRAST - CT Chest W/O Contrast Injection TECHNIQUE: Helically acquired images were obtained of the chest. A radiation dose optimization technique was used for this scan. IV Contrast dosage and agent: None. COMPARISON: None. FINDINGS: LUNGS, PLEURA AND LARGE AIRWAYS: Mild atelectasis in the left lower lobe.. There are 2 subcentimeter noncalcified nodules in the right lower lobe of uncertain etiology. Minor interstitial thickening in the right upper lobe No pleural effusion or thickening. No pneumothorax. THYROID: No thyroid lesions. HEART AND PERICARDIUM: Heart size is normal. No pericardial effusion. CORONARY ARTERIES: Mild multivessel coronary artery calcification VESSELS: Minor atherosclerotic change of the aorta without evidence for aneurysm. MEDIASTINUM AND ANTOINE: No mediastinal or hilar adenopathy. Esophagus is unremarkable. No hiatal hernia. UPPER ABDOMEN: No acute pathology. BONES: Dorsal spine demonstrates mild spondylosis No suspicious lytic or blastic abnormality. CT/Chest without Contrast IMPRESSION: Mild left lower lobe atelectasis. Minor interstitial thickening and subcentimeter noncalcified nodules in the right lower lobe of indeterminate etiology Would recommend clinical correlation and additional follow-up imaging utilizing Fleischner Society criteria if clinically warranted Electronically Signed: Bautista De La Paz MD at 22:35 EST Reading Location ID and State: [facility] / [place] Tel , Service support ,
[2024-06-11 21:56] VITALS: BP 161/95; PULSE 87; RESP 18; TEMP 36.8; O2SAT 98
[2024-06-11 23:14] VITALS: BMI 31.1
[2024-06-11 23:34] VITALS: BP 180/107; PULSE 88; RESP 18; TEMP 36.6; O2SAT 96
[2024-06-12] VITALS (12 sets, daily range): BP systolic 96–155; BP diastolic 68–97; PULSE 84–101; RESP 14–20; TEMP 36.4–36.9; O2SAT 97–99
[2024-06-12] MEDS: Azithromycin 500 MG in 0.9% Normal Saline (250mL Bag) 250 ML 255 MG IV ×2 (00:18→21:24)
[2024-06-12] MEDS: Lactobacillis Acidophilus 1 CAP PO ×5 (00:19→21:50)
[2024-06-12] MEDS: TICAGRELOR 90 MG TABLET PO ×3 (00:20→21:50)
[2024-06-12] MEDS: LORazepam 0.5 MG Tablet PO ×2 (00:21→21:51)
[2024-06-12] MEDS: Carvedilol 6.25 MG Tablet PO ×3 (00:21→21:50)
[2024-06-12] MEDS: Baclofen 10 MG Tablet 20 MG PO ×4 (00:21→21:51)
[2024-06-12] MEDS: Docusate Sodium 100 MG Capsule PO ×3 (00:21→21:50)
[2024-06-12] MEDS: Nortriptyline 25 MG Capsule 100 MG PO ×2 (00:22→21:51)
[2024-06-12] MEDS: Gabapentin 300 MG Capsule 900 MG PO ×4 (00:23→21:51)
[2024-06-12] MEDS: Heparin Injection (Vial) 5,000 UNIT/ML VIAL 5000 UNIT SC ×3 (06:13→21:50)
[2024-06-12] MEDS: Multivitamins,Therapeutic Tablet 1 TABLET PO (10:05)
[2024-06-12] MEDS: Ascorbic Acid 500 MG Tablet 1000 MG PO (10:05)
[2024-06-12] MEDS: Cholecalciferol (VIT D3) 25 MCG TABLET (1,000 UNITS) 50 MCG PO (10:05)
[2024-06-12] MEDS: Venlafaxine HCl 75 MG Tablet PO (10:07)
[2024-06-12] MEDS: Aspirin E.C. 81 MG Tablet PO (10:08)
[2024-06-12] MEDS: Loratadine 10 MG Tablet PO (10:09)
--- NOTE | 2024-06-12 10:52 | WOUNDNOTE ---
wound photo: left hip
--- NOTE | 2024-06-12 10:52 | WOUNDNOTE ---
wound photo: left ischium/sacrum
--- NOTE | 2024-06-12 10:53 | WOUNDNOTE ---
wound photo:sacrum
--- NOTE | 2024-06-12 10:54 | WOUNDNOTE ---
wound photo: right ischium/posterior scrotum
--- NOTE | 2024-06-12 11:10 | CASEMGMT ---
ABISAI MENDES assessment: ABISAI MENDES to room to meet with patient for initial transition planning/care coordination assessment. ABISAI MENDES introduced self and role at [facility], pt voices understanding and consents to assessment. Pt is resting in bed in no distress. Pt is A/O and answers all questions appropriately. Care providers, pharmacy, and demographics verified. Strata: 2 PCP: [facility] Specialists: Pt denies Preferred Pharmacy: [facility] Insurance: [facility], MMO MCR Prescription Benefit: VA/MMO MCR Living Will/HPOA: Noted on prior assessment, pt's sister, Coco, was noted to be HCPOA. Pt states he thinks so, but is not sure. LNOK: Pt states he has 5 siblings. One sister is Marisela Castellano. Coco Plant, mother. Ex-, Any. (Pt states they have been for years). Living Arrangements: Pt lives with [id number] who has MRDD (states high functioning) and assists pt with care. They live on the 1st floor of a 2-story home with ramp entrance. Pt's ex-, Any, lives in the 2nd floor of his home and assists him. She gets the groceries and does laundry. HHC: Pt states he has [facility] through the [place]. A nurse comes daily and he also has aides that come 5 days/week for 3 hrs/day. They assist w/bathing and dressing and home mgnt/cleaning. Pt is paraplegic and has been bed-bound for over a year. ? He has a suprapubic catheter and colostomy. He states he is able to change the colostomy bag and either his mom or a nurse from [place] changes the adhesive. ?His bro-in-law assists w/managing the suprapubic catheter. He reports having all needed supplies @ home.? Transportation: [place] provides most transportation. Pt states has a W/C accessible van also, but states has not used it for ~ a year d/t has not been in a for that long. DME: Pt has the following DME: elizabeth lift, hospital bed with special mattress, ramp, and W/C. Pt states no need for any further DME. SNF: Pt states has been to [facility] in the past and also has been to [facility]. Pt [facility] and declines wanting a list of other options. He states no concerns with going home at time of discharge. Pt states no further concerns/needs. CM to follow for any further discharge planning/needs. Advised pt to ask for CM if any further questions/concerns/needs arise, voices understanding. Plan: [facility] and aides. Wojciech ADAMSONN RN CM
--- NOTE | 2024-06-12 11:44 | NURSING ---
female phoned in states she is pt spouse. updated on status. informed spouse that per prior shift report, a home med list is needed. spouse reports that she spoke with someone over the phone last night and provided them with all of his home medications that he takes.
--- NOTE | 2024-06-12 11:58 | NURSING ---
pt with pain patch on his right deltoid area.
[2024-06-12 12:35] LABS: Amphetamine Urine VISTA NEGATIVE (<1000 ng/mL); Barbiturate Urine VISTA NEGATIVE (< 200 ng/mL); Benzodiazepine Urine VISTA NEGATIVE (< 200 ng/mL); Cocaine Urine VISTA NEGATIVE (< 300 ng/mL); Ecstacy Urine VISTA NEGATIVE (< 500 ng/mL); Methadone Urine VISTA NEGATIVE (< 300 ng/mL); PCP Urine VISTA NEGATIVE (< 25 ng/mL); THC Urine VISTA POSITIVE (< 50 ng/mL); Vista UDS pH Range 5
[2024-06-12] MEDS: Lisinopril 2.5 MG Tablet PO (14:25)
--- NOTE | 2024-06-12 16:18 | NURSING ---
All documentation by student nurse Ele Perales reviewed by instructor Marisela ADAMSONN, RN.
--- NOTE | 2024-06-12 16:26 | PN.HOSP_ITS ---
Reason for Visit Reason for Visit: Diagnoses Hypokalemia (06/11/24) Cannabis use, unspecified, uncomplicated (06/11/24) Paraplegia, unspecified (06/11/24) Metabolic encephalopathy (06/11/24) Pneumonia, unspecified organism (06/11/24) Pressure ulcer of sacral region, stage 3 (06/11/24) Pain in right hip (06/11/24) Acute cystitis with hematuria (06/11/24) Weakness (06/11/24) Other fatigue (06/11/24) Fracture of unspecified part of neck of right femur, subsequent encounter for closed fracture with nonunion (06/11/24) Tobacco use (06/11/24) Presence of coronary angioplasty implant and graft (06/11/24) Objective Data Objective Data Vital Signs: Vital Signs Temp Pulse Resp BP Pulse Ox O2 Del Method 98.2 F 96 20 H 125/76 H 99 Room Air 06/12/24 14:10 06/12/24 14:10 06/12/24 14:10 06/12/24 14:10 06/12/24 14:10 06/12/24 14:10 Oxygen Delivery Method Room Air Weight: 210 lb 8.663 oz Body Mass Index (BMI) 31.1 Intake & Output: Intake and Output for Last 24 Hours 06/10/24 06/11/24 06/12/24 23:59 23:59 23:59 Intake Total 1050 / 1250 780 / 780 Output Total 1400 / 1400 Balance 1050 / 800 -620 / -620 Lab / Micro Data 06/11/24 17:05 06/11/24 17:05 Labs: Laboratory Results - last 24 hr 06/11/24 17:05: WBC 12.7 H, RBC 5.58, Hgb 15.4, Hct 47.0, MCV 84.2, MCH 27.6, MCHC 32.8, RDW Std Deviation 48.9 H, RDW Coeff of Bhanu 16.1 H, Plt Count 416, MPV 8.9, Immature Gran % (Auto) 0.400, Neut % (Auto) 75.6 H, Lymph % (Auto) 17.0 L, [place] % (Auto) 6.0, Eos % (Auto) 0.7, Baso % (Auto) 0.3, Absolute Neuts (auto) 9.6 H, Absolute Lymphs (auto) 2.16, Nucleated RBC % 0, Sodium 140, Potassium 3.4 L, Chloride 106, Carbon Dioxide 25.0, Anion Gap 9, BUN 12, Creatinine 0.61 L, Estim Creat Clear Calc 123.95, Est GFR (MDRD) Af Amer 172, Est GFR (MDRD) Non-Af 142, BUN/Creatinine Ratio 19.7, Glucose 107 H, Lactic Acid 1.4, Calcium 9.5, Total Bilirubin 0.40, AST 10 L, ALT 10 L, Alkaline Phosphatase 168 H, Troponin I High Sens 6, Total Protein 7.8, Albumin 2.8 L, Globulin 5.0 H, Albumin/Globulin Ratio 0.6 L 06/11/24 17:28: Urine Color Yellow, Urine Clarity Cloudy, Urine pH 6.0, Ur Specific [place] 1.025, Urine Protein 100 H, Urine Glucose (UA) Normal, Urine Ketones 150 A*, Urine Occult Blood 250 H, Urine Nitrite Positive H, Urine Bilirubin Negative, Urine Urobilinogen Normal, Ur Leukocyte Esterase 500 H, Urine RBC 25-50 SEEN, Urine WBC >100 SEEN, Ur Squamous Epith Cells 0-5 SEEN, Calcium Oxalate Crystal 1+, Urine Bacteria 4+, Urine Mucus 2+ 06/12/24 06:15: Folate 46.60, TSH 4.130 H 06/12/24 11:15: Urine Opiates Screen POSITIVE H, Urine Methadone Screen NEGATIVE, Ur Barbiturates Screen NEGATIVE, Ur Phencyclidine Scrn NEGATIVE, Ur Amphetamines Screen NEGATIVE, MDMA (Ecstasy) Screen NEGATIVE, U Benzodiazepines Scrn NEGATIVE, Urine Cocaine Screen NEGATIVE, U Cannabinoids Screen POSITIVE H, Ur Drug Screen Comment Micro: Microbiology 06/11/24 17:28 Urine Catheter - Catheter Legionella Antigen - Final 06/11/24 17:28 Urine Catheter - Catheter Streptococcus pneumoniae Antigen (M - Final 06/11/24 17:28 Urine Catheter - Catheter Urine Culture - Preliminary Gram negative yelena 06/11/24 16:56 Mucosa - Nose SARS-CoV-2, Influenza & RSV (PCR) - Final Radiography Diagnostic Testing: Radiology Impression Chest X-Ray 06/11/24 17:45 IMPRESSION: Multifocal interstitial thickening most pronounced right upper lobe possibly inflammatory. Clinical correlation recommended. Electronically Signed: Bautista De La Paz MD at 18:32 EST , Hip/Pelvis X-Ray 06/11/24 17:45 IMPRESSION: Old deformity of the hips. Proximal right femoral shaft fracture with increase in displacement since the previous study. Electronically Signed: Garry Cobian DO at 18:47 EST , Venous Duplex 06/11/24 18:21 IMPRESSION: No sonographic evidence of deep venous thrombosis. Electronically Signed: Garry Cobian DO at 20:09 EST , Chest CT 06/11/24 21:45 IMPRESSION: Mild left lower lobe atelectasis. Minor interstitial thickening and subcentimeter noncalcified nodules in the right lower lobe of indeterminate etiology Would recommend clinical correlation and additional follow-up imaging utilizing Fleischner Society criteria if clinically warranted Electronically Signed: Bautista De La Paz MD at 22:35 EST , Assessment & Plan Assessment/Plan (1) Acute cystitis with hematuria: (2) Pneumonia: QUALIFIERS: Pneumonia type: due to unspecified organism L aterality: right Lung location: unspecified part of lung Qualified Code(s): J 18.9 - Pneumonia, unspecified organism (3) Metabolic encephalopathy: (4) Hypokalemia: (5) Paraplegia: (6) Sacral decubitus ulcer, stage III: (7) Generalized weakness: (8) Lethargy: (9) 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 1. Acute Cystitis; with microscopic hematuria likely due to chronic suprapubic catheter with a corresponding Leukocytosis of 12.7 K present on admission - admitted to [facility] floor. Has suprapubic catheter. Prelim urine culture shows GNR more than 100,000 colonies. 2. Pneumonia ruled out. Chest x-ray is chronic multifocal gestational thickening: CT chest was done which shows minor interstitial thickening and subcentimeter noncalcified nodules in the right lower lobe. Does not seem an acute infectious process, consolidation, or bronchopneumonia. IV azithromycin discontinued 3. Metabolic encephalopathy: Acute encephalopathy has resolved. 4. Hypokalemia of 3.4 mmol/L present on admission: Potassium supplement added. 5. Chronic Paraplegia with history of transverse myelitis; with neurogenic bladder and history of suprapubic catheter superimposed acute Generalized Weakness and Lethargy with numerous stage III-IV sacral decubiti noted on admission -discussed with the wound nurse. He has chronic stage IV decubitus. Does not look infected. She has seen the patient in the past. 6. Chronic history of intertrochanteric fracture due to lytic lesion in his femur: Patient was worked in [facility] and was not felt to be surgical candidate. Recommend to follow-up with [facility]. 7. History of CAD; s/p proximal LAD stent (2021) on baby aspirin and ticagrelor - Resume BASA and ticagrelor as previous. 8. History of tobacco abuse - Tobacco Cessation will be strongly encouraged with Nicotine patch offered to control cravings. 9. History of cannabis abuse - Cannabis Cessation will be strongly encouraged. 10. Essential hypertension; on carvedilol and lisinopril - Maintain current regimen as before. 11. Hyperlipidemia; on rosuvastatin - Hold statin in case of possible myotoxicity contributing to #4. 12. Overweight; with a BMI of 26 this admission - Weight loss will be recommended. Check TSH. DVT prophylaxis - Heparin 5,000 units SQ TID. Total time: Approximately (but not less than) 75 minutes. Charges/Coding Visit Charges Inpatient E&M: 25954 Subs Hosp L2
[2024-06-12] MEDS: 0.9% Saline Lock 10 ML Syringe IV (16:54)
[2024-06-12] MEDS: Ceftriaxone 1 GM/50 ML BAG IV (22:57)
[2024-06-12 23:54] LABS: Vitamin B12 551 pg/mL (211-911)
[2024-06-13 02:29] VITALS: PULSE 78
[2024-06-13 03:45] VITALS: BP 127/72; PULSE 87; RESP 16; TEMP 36.4; O2SAT 96
[2024-06-13] MEDS: Heparin Injection (Vial) 5,000 UNIT/ML VIAL 5000 UNIT SC ×3 (06:01→20:58)
[2024-06-13] MEDS: Gabapentin 300 MG Capsule 900 MG PO ×3 (06:02→20:59)
[2024-06-13] MEDS: Baclofen 10 MG Tablet 20 MG PO ×3 (06:02→20:57)
[2024-06-13 06:43] LABS: Absolute Lymphocyte Count 2.73 X10^3/uL (0.83-4.51); Absolute Neutrophil Count 4.2 X10^3/uL (2.0-7.7); Basophil# 0.03 X10^3/uL; Basophil% 0.4 % (0-1); Eosinophil# 0.28 X10^3/uL; Eosinophils% 3.5 % (0-5); Hematocrit 40.3 % (40-54); Lymphocyte # 2.73 X10^3/ul (0.83-4.51); Lymphocyte % 33.7 % (19-41); Mean Corp Hgb Conc 32.3 g/dL (32-36); Mean Corpuscular Hgb 27.4 pg (27.0-32.0); Mean Corpuscular Volume 84.8 fL (80-94); Monocyte# 0.86 X10^3/uL; Monocyte% 10.6 % (0-10); NRBC Flagged by Analyzer 0 % (0-5); Neutrophil # 4.18 X10^3/uL (2.7-7.7); Neutrophil % 51.6 % (47-70); Platelet Count 311 K/mm3 (150-450); RBC Distribution Width CV 15.9 % (11.6-14.6); RBC Distribution Width SD 49.3 fl (35.1-43.9); Red Blood Count 4.75 M/mm3 (4.6-6.2); White Blood Count 8.1 K/mm3 (4.4-11.0)
[2024-06-13 06:52] LABS: Anion Gap 8 (5-15); BUN 11 mg/dL (7-18); BUN/Creat Ratio 17.2 RATIO (10-20); Calcium,Total 8.4 mg/dL (8.5-10.1); Chloride 108 mmol/L (98-107); Creatinine, Serum 0.64 mg/dL (0.70-1.30); EST Glomerular Filtration Rate 134 mL/min (>60); Est Glom Filt Rate - Afr Amer 163 mL/min (>60); Estimated Creatinine Clearance 134.72 ml/min; Glucose 95 mg/dL (74-106); Potassium 3.2 mmol/L (3.5-5.1); Sodium Level 140 mmol/L (136-145)
[2024-06-13 08:07] VITALS: PULSE 82
[2024-06-13] MEDS: Ascorbic Acid 500 MG Tablet 1000 MG PO (08:43)
[2024-06-13] MEDS: Loratadine 10 MG Tablet PO (08:43)
[2024-06-13] MEDS: Lisinopril 2.5 MG Tablet PO (08:44)
[2024-06-13] MEDS: Venlafaxine HCl 75 MG Tablet PO (08:44)
[2024-06-13] MEDS: TICAGRELOR 90 MG TABLET PO ×2 (08:44→20:58)
[2024-06-13] MEDS: Multivitamins,Therapeutic Tablet 1 TABLET PO (08:45)
[2024-06-13] MEDS: Lactobacillis Acidophilus 1 CAP PO ×4 (08:45→20:58)
[2024-06-13] MEDS: Aspirin E.C. 81 MG Tablet PO (08:45)
[2024-06-13] MEDS: Docusate Sodium 100 MG Capsule PO ×2 (08:46→20:58)
[2024-06-13] MEDS: Carvedilol 6.25 MG Tablet PO ×2 (08:46→20:57)
[2024-06-13] MEDS: Cholecalciferol (VIT D3) 25 MCG TABLET (1,000 UNITS) 50 MCG PO (08:46)
[2024-06-13 08:47] VITALS: BP 118/70; PULSE 98; RESP 14; TEMP 36.4; O2SAT 98
--- NOTE | 2024-06-13 10:04 | NURSING ---
concur with SN assessment
--- NOTE | 2024-06-13 10:09 | NURSING ---
spoke with pt SO Gloria and updated on status as she states he left me a crazy message that he was leaving or something informed her that pt said he wanted to leave AMA. she states that he is not leaving because I am going to come get him, it is too bad out.
[2024-06-13 14:00] VITALS: BP 119/96; PULSE 86; RESP 14; TEMP 36.1; O2SAT 98
--- NOTE | 2024-06-13 16:15 | PN.HOSP_ITS ---
Reason for Visit Reason for Visit: Diagnoses Hypokalemia (06/11/24) Cannabis use, unspecified, uncomplicated (06/11/24) Paraplegia, unspecified (06/11/24) Metabolic encephalopathy (06/11/24) Pneumonia, unspecified organism (06/11/24) Pressure ulcer of sacral region, stage 3 (06/11/24) Pain in right hip (06/11/24) Acute cystitis with hematuria (06/11/24) Weakness (06/11/24) Other fatigue (06/11/24) Fracture of unspecified part of neck of right femur, subsequent encounter for closed fracture with nonunion (06/11/24) Tobacco use (06/11/24) Presence of coronary angioplasty implant and graft (06/11/24) Objective Data Objective Data Vital Signs: Vital Signs Temp Pulse Resp BP Pulse Ox O2 Del Method 96.9 F L 86 14 119/96 H 98 Room Air 06/13/24 14:00 06/13/24 14:00 06/13/24 14:00 06/13/24 14:00 06/13/24 14:00 06/13/24 14:34 Oxygen Delivery Method Room Air Weight: 210 lb 8.663 oz Body Mass Index (BMI) 31.1 Intake & Output: Intake and Output for Last 24 Hours 06/11/24 06/12/24 06/13/24 23:59 23:59 23:59 Intake Total 1050 / 1250 1085 / 1335 425 / 425 Output Total 1400 / 1600 1125 / 1125 Balance 1050 / 800 -315 / -265 -700 / -700 Lab / Micro Data 06/13/24 05:46 06/13/24 05:46 Labs: Laboratory Results - last 24 hr 06/12/24 06:15: Vitamin B12 551 06/13/24 05:46: WBC 8.1, RBC 4.75, Hgb 13.0, Hct 40.3, MCV 84.8, MCH 27.4, MCHC 32.3, RDW Std Deviation 49.3 H, RDW Coeff of Bhanu 15.9 H, Plt Count 311, MPV 9.0, Immature Gran % (Auto) 0.200, Neut % (Auto) 51.6, Lymph % (Auto) 33.7, [place] % (Auto) 10.6 H, Eos % (Auto) 3.5, Baso % (Auto) 0.4, Absolute Neuts (auto) 4.2, Absolute Lymphs (auto) 2.73, Nucleated RBC % 0, Sodium 140, Potassium 3.2 L, C hloride 108 H, Carbon Dioxide 24.0, Anion Gap 8, BUN 11, Creatinine 0.64 L, Estim Creat Clear Calc 134.72, Est GFR (MDRD) Af Amer 163, Est GFR (MDRD) Non-Af 134, BUN/Creatinine Ratio 17.2, Glucose 95, Calcium 8.4 L Micro: Microbiology 06/11/24 17:28 Urine Catheter - Catheter Urine Culture - Preliminary Pseudomonas aeruginosa 06/11/24 17:28 Urine Catheter - Catheter Legionella Antigen - Final 06/11/24 17:28 Urine Catheter - Catheter Streptococcus pneumoniae Antigen (M - Final 06/11/24 16:56 Mucosa - Nose SARS-CoV-2, Influenza & RSV (PCR) - Final Physical Exam Narrative Seen and examined. In the morning today, patient wanted to sign AMA as notified by the nurse. I saw the patient and he states he decided to stay as he does not want to going snow and winter. Patient is bedbound, paraplegic. Physical exam: General: Alert, Oriented x3, Cooperative. BMI 31.1 kg per square HEENT: Atraumatic, PERRLA, EOMI, Normocephalic Oral: No Gingival or Mucosal Lesions/ Ulcerations Neck: Supple, No JVD, Negative Carotid Bruits Chest wall/Lungs: Air entry diminished in bilateral lung bases. No crepitation/rhonchi Cardiovascular: Regular rate, Regular Rhythm, Normal S1, Normal S2, No M/G/R Abdomen: Bowel Sounds Present, Soft, Non Tender, Non-Distended. Colostomy. : Suprapubic catheter. Extremities: Mild dependent edema. Capillary Refill Less than 3 Seconds Skin: Sacral decubitus. Chronic ulcer over right ischium/posterior scrotal region with fibrosis, contracture, scarring and chronic granulation tissue on the margin Musculoskeletal: Chronic Paraplegia with contracture. ROM not possible. Bilateral lower extremity muscle atrophy. Muscle strength possible 2/5 at knees and hip joints Neurological: Cranial nerves II-XII grossly intact, DTR 2/4. 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 1. Acute Cystitis; with microscopic hematuria likely due to chronic suprapubic catheter with a corresponding Leukocytosis of 12.7 K present on admission - admitted to [facility] floor. Has suprapubic catheter. Prelim urine culture shows GNR more than 100,000 colonies. 06/13: Urine culture shows more than thousand colonies of Pseudomonas aeruginosa. IV ceftriaxone changed to Zosyn. ID consult requested and called. The patient wanted to sign AMA as he was not happy about convinced to stay. 2. Pneumonia ruled out. Chest x-ray is chronic multifocal interstitial thickening: CT chest was done which shows minor interstitial thickening and subcentimeter noncalcified nodules in the right lower lobe. Does not seem an acute infectious process, consolidation, or bronchopneumonia. IV azithromycin discontinued 3. Metabolic encephalopathy: Acute encephalopathy has resolved. 4. Hypokalemia of 3.4 mmol/L present on admission: Potassium supplement added. 5. Chronic Paraplegia with history of transverse myelitis; with neurogenic bladder and history of suprapubic catheter superimposed acute Generalized Weakness and Lethargy with numerous stage III-IV sacral decubiti noted on admission -discussed with the wound nurse. He has chronic stage IV decubitus. Does not look infected. She has seen the patient in the past. 6. Chronic history of intertrochanteric fracture due to lytic lesion in his femur: Patient was worked in [facility] and was not felt to be surgical candidate. Recommend to follow-up with [facility]. 7. History of CAD; s/p proximal LAD stent (2021) on baby aspirin and ticagrelor - Resume BASA and ticagrelor as previous. 8. History of tobacco abuse - Tobacco Cessation will be strongly encouraged with Nicotine patch offered to control cravings. 9. History of cannabis abuse - Cannabis Cessation will be strongly encouraged. 10. Essential hypertension; on carvedilol and lisinopril - Maintain current regimen as before. 11. Hyperlipidemia; on rosuvastatin - Hold statin in case of possible myotoxicity contributing to #4. 12. Overweight; with a BMI of 26 this admission - Weight loss will be recommended. Check TSH. DVT prophylaxis - Heparin 5,000 units SQ TID. Charges/Coding Visit Charges Inpatient E&M: 94626 Subs Hosp L2
[2024-06-13] MEDS: Piperacil/Tazobactam 3.375 GM in 0.9% Normal Saline (50mL MB+) 50 ML IV ×2 (17:16→21:03)
[2024-06-13] MEDS: 0.9% Saline Lock 10 ML Syringe IV (17:17)
[2024-06-13 20:38] VITALS: BP 139/83; PULSE 90; RESP 16; TEMP 36.4; O2SAT 96
[2024-06-13] MEDS: Nortriptyline 25 MG Capsule 100 MG PO (20:58)
[2024-06-14 05:05] VITALS: BP 144/86; PULSE 90; RESP 16; TEMP 36.4; O2SAT 96
[2024-06-14] MEDS: Piperacil/Tazobactam 3.375 GM in 0.9% Normal Saline (50mL MB+) 50 ML IV ×3 (05:10→20:30)
[2024-06-14] MEDS: Baclofen 10 MG Tablet 20 MG PO ×3 (05:10→20:25)
[2024-06-14] MEDS: Heparin Injection (Vial) 5,000 UNIT/ML VIAL 5000 UNIT SC ×3 (05:11→20:26)
[2024-06-14] MEDS: Gabapentin 300 MG Capsule 900 MG PO ×3 (05:11→20:30)
[2024-06-14 06:49] LABS: Absolute Lymphocyte Count 2.62 X10^3/uL (0.83-4.51); Absolute Neutrophil Count 4.4 X10^3/uL (2.0-7.7); Basophil# 0.05 X10^3/uL; Basophil% 0.6 % (0-1); Eosinophil# 0.52 X10^3/uL; Eosinophils% 6.1 % (0-5); Hematocrit 40.4 % (40-54); Hemoglobin 12.9 g/dL (13.0-16.5); Lymphocyte # 2.62 X10^3/ul (0.83-4.51); Lymphocyte % 30.6 % (19-41); Mean Corp Hgb Conc 31.9 g/dL (32-36); Mean Corpuscular Hgb 27.8 pg (27.0-32.0); Mean Corpuscular Volume 87.1 fL (80-94); Monocyte# 0.98 X10^3/uL; Monocyte% 11.4 % (0-10); NRBC Flagged by Analyzer 0 % (0-5); Neutrophil # 4.36 X10^3/uL (2.7-7.7); Neutrophil % 50.8 % (47-70); Platelet Count 340 K/mm3 (150-450); RBC Distribution Width CV 16.3 % (11.6-14.6); RBC Distribution Width SD 51.2 fl (35.1-43.9); Red Blood Count 4.64 M/mm3 (4.6-6.2); White Blood Count 8.6 K/mm3 (4.4-11.0)
[2024-06-14 06:53] VITALS: BP 150/56
[2024-06-14 07:11] LABS: Anion Gap 7 (5-15); BUN 10 mg/dL (7-18); BUN/Creat Ratio 12.4 RATIO (10-20); Calcium,Total 8.5 mg/dL (8.5-10.1); Chloride 111 mmol/L (98-107); Creatinine, Serum 0.81 mg/dL (0.70-1.30); EST Glomerular Filtration Rate 102 mL/min (>60); Est Glom Filt Rate - Afr Amer 124 mL/min (>60); Estimated Creatinine Clearance 106.44 ml/min; Glucose 161 mg/dL (74-106); Potassium 3.2 mmol/L (3.5-5.1); Sodium Level 144 mmol/L (136-145)
[2024-06-14] MEDS: Cholecalciferol (VIT D3) 25 MCG TABLET (1,000 UNITS) 50 MCG PO (08:45)
[2024-06-14] MEDS: Docusate Sodium 100 MG Capsule PO (08:45)
[2024-06-14] MEDS: Aspirin E.C. 81 MG Tablet PO (08:46)
[2024-06-14] MEDS: TICAGRELOR 90 MG TABLET PO ×2 (08:46→20:26)
[2024-06-14] MEDS: Venlafaxine HCl 75 MG Tablet PO (08:46)
[2024-06-14] MEDS: Lactobacillis Acidophilus 1 CAP PO ×3 (08:46→20:25)
[2024-06-14] MEDS: Ascorbic Acid 500 MG Tablet 1000 MG PO (08:47)
[2024-06-14] MEDS: Loratadine 10 MG Tablet PO (08:47)
[2024-06-14] MEDS: Carvedilol 6.25 MG Tablet PO ×2 (08:47→20:26)
[2024-06-14] MEDS: Lisinopril 2.5 MG Tablet PO (08:47)
[2024-06-14] MEDS: Buprenorphine 10 MCG PATCH.TDWK 1 PATCH TD (09:55)
--- NOTE | 2024-06-14 10:18 | CASEMGMT ---
Addendum entered by Gissell Suarez 06/14/24 16:34: Confirmed with Loren at [facility] that all orders and both faxes received. TC to pt ex Maryana (spelled incorrectly in prior notes by this ABISAI MENDES), she is aware pt is dc'ing this date and plan. She denies questions and thanks ABISAI MENDES for time spent. Addendum entered by Gissell Suarez 06/14/24 16:18: HH SN order sent to [facility] via fax. Addendum entered by Gissell Suarez 06/14/24 16:12: Received notification that [facility] can deliver med this evening but no time is known yet. Message to Dr. Arceo to make aware pt can dc. Pt able to miss evening dose per Dr. Arceo and Dr. Jenkins. TC to Loren at [facility] in [place], she is aware pt will dc this evening and he may miss the evening dose of IV atb and start med in the morning. TC back to [facility], spoke with Hayde, received fax number, sent face sheet, dc summary, IV rx and midline insertion report to [facility]. She is aware that this will be faxed shortly. [facility] the [facility]. ABISAI MENDES into pt room, pt is aware after this current dose of IV atb, he will be transported home via stretcher. He will call [facility] to make aware per her request. Updated pt nurse, she is aware that pt needs to call [facility] as well. Bilingual Medical Receptionist aware to set up [facility] after 6pm. SW put transport form on chart. Pt denies further needs at this time. Addendum entered by Gissell Suaerz 06/14/24 15:45: ABISAI MENDES into pt room, pt aware all paperwork submitted and awaiting the infusion company to make aware of availability for delivery. Pt is agreeable to copay of $64.93 and 20% coinsurance. He is aware [facility] will go over this. Pt is aware his ex will learn as he wanted her to. Addendum entered by Gissell Suarez 06/14/24 15:32: Midline insertion report sent to I at this time. Addendum entered by Gissell Suarez 06/14/24 15:14: Received tc from Lola at [facility] who states pt ex called and stated the IV med was every 8 hours and they do not typically do every 8 hours. Made Lola aware that this RN VAUGHN just got off the phone with pt ex and she was willing to learn the IV atb. She is aware that should the pt not have a cg in the home to learn, then [facility] is not the appropriate level of care for pt. Lola is aware that the dc is pending midline insertion and [facility] availability to deliver med. Hospitalist also aware of this information. Addendum entered by Gissell Suarez 06/14/24 15:02: Received tc from pt ex , she states she is willing to perform IV at home. She prefers pt not dc over the weekend but she does not want RN CM to tell pt this. She is aware if all services can be set up, pt is medically ready and he will dc. She denies any further questions. Addendum entered by Gissell Suarez 06/14/24 14:40: TC to registration to confirm pt insurance other than [facility] benefit. Received insurance verification for MMO MCR, included in referral to [facility] and sent. Addendum entered by Gissell Suarez 06/14/24 14:19: Received tc from Lola at [facility] who states they can accommodate pt IV atb this weekend. She would like to confirm that the patient still wants their services. ABISAI MENDES into pt room, placed Lola on speaker and she and pt spoke. Pt is agreeable to their services. Asked Lola who this RN VAUGHN should contact for further follow up, she states to call the office and speak to Loren who will reach out. Provided her with RN VAUGHN phone number on the weekend should she need it. Lola is aware that [facility] is the infusion company. RN VAUGHN to follow. Addendum entered by Gissell Suarez 06/14/24 14:00: 1356-ABISAI MENDES spoke with pt, he states his ex has done IV atb before and asked if she could do them again. Pt aware RN VAUGHN will check on this. Provided pt with a verbal local in network list of Infusion companies, pt chose [facility]. Referral sent to [facility] to see if pt request is an option if the agency could not staff this and also asked if a weekend delivery would be possible if they decide they can staff it. ABISAI MENDES to await answer. Addendum entered by Gissell Suarez 06/14/24 13:52: Received tc from Lola from [facility]. She was updated on the below information. She requests she speak to another clinical member and to call this RN CM back. She is aware that for continuity of care and all the services that are provided with this company as pt has many needs that this RN VAUGHN is requesting pt being taken back from the agency. These services are not easily set up on day of dc. She states it sounds as if the patient does not want them now. She is aware that the patient is angry because he was told he could not be serviced from a skilled aspect. ABISAI MENDES to await returned call. Addendum entered by Gissell Suarez 06/14/24 13:44: RN VAUGHN received IV rx for 5 days of IV atb. RN VAUGHN into pt room to make pt aware that [facility] could not accommodate him, pt became very angry. Pt called [facility] and requested all services to stop. Made pt aware to pause for a moment to see if this RN VAUGHN could reach [facility] to see since the IV's are for only 5 days, if this could be accommodated. Pt agreeable to this. ABISAI MENDES called [facility] to confirm that they could not service pt for just the 5 days of IV atb. She again stated that they could not manage this as she is the only RN for the agency and she does not work weekends. Requested a sugar plantation manager wage and hour investigator number, she gave [facility] phone number of [phone]. TC to this number, spoke with Loren who states she will give RN VAUGHN's number to Lola who is in the [place] office. She states that the office was not notified of the possibility of IV atb and this was the first they were hearing of it. Made her aware that on 06/12/24 ABISAI MENDES was given a note from sanitizer that Cailin had called into the unit and requested she be notified upon pt dc with the number of [phone] and to leave a message if she did not answer. Loren stated this is not the normal protocol. RN VAUGHN will wait for sugar plantation manager to call. Pt is aware of this. Pt states just to let him dc without the IV. Requested pt give the RN CM some time to sort this out. He agreed. Addendum entered by Gissell Suarez 06/14/24 10:54: TC to [facility], spoke with Cailin BARONE, they provide SN to pt that is a SEPARATOR TENDER daily for wound care, ostomy, catheter care and unskilled aide services. Asked if pt should need IV atb at dc if this is something they could accommodate, she states they could not. If this is the case, pt will need another LICENSE REGISTRATION EXAMINER to do the skilled care and [facility] can provide the unskilled aide care. She requests if pt is dc'd without IV atb to notify her at [phone] and leave a message. ABISAI MENDES to follow for ID recs. Original Note: Emailed [place] to verify if the [facility] was to be notified of pt dc from the hospital or if the agency providing the care should be notified. Received email from Jignesh Harper who stated to notify the agency directly but to send med changes and orders to the [facility] email group . ABISAI MENDES to send dc instructions to [facility] email and notify [facility] upon pt dc. ABISAI MENDES into pt room, pt lying in bed in no distress. Pt denies any homegoing needs but states he does need a stretcher to dc to home. Pt stated to use [facility].
[2024-06-14 10:50] VITALS: BP 144/81; PULSE 88; RESP 18; TEMP 36.4; O2SAT 99
--- NOTE | 2024-06-14 11:05 | CASEMGMT ---
Social Work- ANÉGLICA called [facility] to [facility]; they confirmed they do. ANGÉLICA updated RNCM. ANGÉLICA placed transport form on chart. MAURICIO Quiñones
--- NOTE | 2024-06-14 11:27 | PCM.DC ---
Discharge Instructions Diet Discharge Diet: No restrictions DC O2, CPAP, BIPAP needs Home O2 Discharge instructions: No Dressing / Incision Discharge Activity: Return to Normal Activity and - (He is bedbound) Weight Bearing Status: Weight bearing as tolerated Dressing / Incision Call your doctor if you observe: Fever of 101 or Higher, Coldness, Increased Pain, Numbness or Tingling, Change in Color, Inability to urinate, Inability to have a bowel movement, Shortness of breath, Dizziness, Fainting spells, Swelling in the ankles, Chest pain, Prolonged hiccupping, Increased palpitations (irregular heartbeat) and Calf discomfort Follow Up Care When: IN 2 WEEKS Test Results: Test results from this visit will be discussed in further detail at your follow-up appointment, if applicable. Discharge Plan Admission Admit Date/Time: 06/11/24 21:41 Primary Reason for Your Visit: Pseudomonas associated UTI Attending Provider: Darian Arceo Primary Care Provider: [facility] Consulting Providers: Ronak Quiroz; Maulik Jenkins Discharge Orders/Prescriptions Prescriptions: New Zosyn in dextrose (iso-osm) 3.375 gram/50 mL piggyback 3.375 g IV Q8H 5 Days Rx Instructions: dx: pseudomonas infection. Midline care per protocol. Continued baclofen 20 MG tablet 20 mg PO TID Patient Comments: MUSCLE SPASMS multivitamin with folic acid [Thera] 1 TABLET tablet 1 tab PO LUNCH Patient Comments: SUPPLEMENT gabapentin 100 MG capsule 900 mg PO TID Patient Comments: NEUROPATHY nortriptyline 50 MG capsule 100 mg PO QHS ascorbic acid (vitamin C) [Vitamin C] 1,000 mg Tablet 1 g PO DAILY venlafaxine 75 mg Tablet 150 mg PO DAILY docusate sodium 100 mg Capsule 100 mg PO BID cholecalciferol (vitamin D3) [Vitamin D3] 50 mcg (2,000 unit) Capsule 50 mcg PO DAILY loratadine 10 mg Capsule 10 mg PO DAILY carvedilol 6.25 mg Tablet 6.25 mg PO BID 30 Days Qty: 60 0RF aspirin 81 mg Tablet,Delayed Release (Dr/Ec) 81 mg PO BREAKFAST 30 Days Qty: 30 0RF Brilinta 90 mg Tablet 90 mg PO BID 30 Days Qty: 60 0RF Eliquis 2.5 mg Tablet 2.5 mg PO BID 30 Days Qty: 60 0RF rosuvastatin [Crestor] 10 mg tablet 10 mg PO DAILY Qty: 30 0RF ondansetron 4 mg tablet,disintegrating 4 mg PO Q6H PRN (Reason: nausea and vomiting) Qty: 10 0RF lorazepam [Ativan] 0.5 mg tablet 0.5 mg PO BID PRN (Reason: nausea and vomiting) Qty: 6 0RF ondansetron 4 mg tablet,disintegrating 4 mg PO Q8H PRN (Reason: nausea and vomiting) Qty: 10 0RF buprenorphine 10 mcg/hour patch weekly 1 patch transdermal Q7D Patient Comments: last applied was Monday06/07/2024 lisinopril 2.5 mg tablet 2.5 mg PO DAILY Qty: 30 11RF Discontinued doxycycline monohydrate 100 mg Capsule 100 mg PO BID ciprofloxacin HCl 500 mg tablet 500 mg PO BID Qty: 14 0RF Referrals / Follow [facility] [Primary Care Provider] - Within 2 Weeks Maulik Jenkins MD [Med Staff - Active Staff] - Within 1 Month Disposition Disposition (needs filled in before D/C Order can be placed): Home Health Service
--- NOTE | 2024-06-14 12:57 | NURSING ---
dynamic access contacted about order for midline.
[2024-06-14] MEDS: Multivitamins,Therapeutic Tablet 1 TABLET PO (14:19)
--- NOTE | 2024-06-14 14:19 | PCM.CONS.GEN ---
Assessment & Plan Assessment/Plan (1) Acute UTI: PLAN: ucx with pseudomonas, feeling better with zosyn, will order midline and 5 more days abx. Will follow as needed, thank you, d/w Dr. Arceo (2) Paraplegia: HPI Consult Data Date of Consult: 06/14/24 HPI Narrative Reason for Consultation: uti HPI Narrative: KALEN GAVIN, is a 64 M with paraplegia, suprapubic catheter, presented 06/11 with one day of weakness, not feeling well. No fever or chills, no sick contacts, no cough or SOB. Admitted, ucx sent, now on zosyn since 06/13, feeling better. Full ROS performed and neg except as noted above. [facility] Medical History Atherosclerotic heart disease of [place] coronary artery without angina pectoris Depression Chronic indwelling [place] catheter Heavy alcohol use Anxiety and depression Acute paralytic poliomyelitis, wild virus, indigenous Osteomyelitis of right femur Transverse myelitis Neurogenic bladder Benign essential hypertension Home Medications ?Medication ?Instructions ?Recorded ?Last Taken ?Type baclofen 20 mg tablet 20 mg PO TID muscle spasms 02/26/13 06/27/21 History multivitamin with folic acid 400 1 tab PO LUNCH supplemeny 02/26/13 06/27/21 History mcg tablet (Thera) gabapentin 100 mg capsule 900 mg PO TID neuropathy 04/19/13 06/27/21 History nortriptyline 50 mg capsule 100 mg PO QHS anxiety 01/19/19 06/26/21 History ascorbic acid (vitamin C) 1,000 mg 1 g PO DAILY Check with primary 06/28/21 Unknown History tablet (Vitamin C) doctor cholecalciferol (vitamin D3) 50 50 mcg PO DAILY Check with primary 06/28/21 Unknown History mcg (2,000 unit) capsule (Vitamin doctor D3) docusate sodium 100 mg capsule 100 mg PO BID Check with primary 06/28/21 Unknown History doctor loratadine 10 mg capsule 10 mg PO DAILY Check with primary 06/28/21 Unknown History doctor venlafaxine 75 mg tablet 150 mg PO DAILY Check with primary 06/28/21 Unknown History doctor apixaban 2.5 mg tablet (Eliquis) 2.5 mg PO BID 30 days #60 tabs 06/29/21 Unknown Rx aspirin 81 mg tablet,delayed 81 mg PO BREAKFAST heart health 30 06/29/21 Unknown Rx release days #30 tabs carvedilol 6.25 mg tablet 6.25 mg PO BID heart 30 days #60 06/29/21 Unknown Rx tabs rosuvastatin 10 mg tablet (Crestor) 10 mg PO DAILY #30 tabs 06/29/21 Unknown Rx ticagrelor 90 mg tablet (Brilinta) 90 mg PO BID 30 days #60 tabs 06/29/21 Unknown Rx lisinopril 2.5 mg tablet 2.5 mg PO DAILY #30 tabs 07/06/21 Unknown Rx lorazepam 0.5 mg tablet (Ativan) 0.5 mg PO BID PRN nausea and 05/22/22 Unknown Rx vomiting #6 tabs ondansetron 4 mg disintegrating 4 mg PO Q6H PRN nausea and 05/22/22 Unknown Rx tablet vomiting #10 tabs ondansetron 4 mg disintegrating 4 mg PO Q8H PRN nausea and 06/06/22 Unknown Rx tablet vomiting #10 tabs buprenorphine 10 mcg/hour weekly 1 patch transdermal Q7D pain 06/11/24 Unknown History transdermal patch piperacillin-tazobactam 3.375 3.375 g (56.25 mL) IV Q8H 5 days 06/14/24 Unknown Rx gram/50 mL dextrose(iso-os) IV piggyback (Zosyn) Allergy/AdvReac Type Severity Reaction Status Date / Time No Known Allergies Allergy Verified 06/11/24 16:19 Family History Father CVA (cerebral vascular accident) Heart disease Myocardial infarction Surgical History History of coronary artery stent placement (06/28/21) History of femoral derotational osteotomy History of appendectomy History of suprapubic catheter Hx of colostomy Colostomy in place Social History household members: spouse Smoking Status: Light Smoker (<10/day) alcohol intake: former substance use type: marijuana Physical Exam Const alert, oriented x3 and no apparent distress General Appearance: cooperative HEENT normocephalic and head/scalp atraumatic Eyes PERRL and EOMs intact bilaterally Neck supple and No nodes Resp normal air movement and clear to auscultation bilaterally Cardio regular rate and regular rhythm GI soft to palpation, non-tender and non-distended Extremity General Extremity: Negative for edema Skin no rashes or lesions noted Neuro CN's II-XII intact bilaterally Lab / Micro Data Attestation: I reviewed the patient's lab results. 06/14/24 06:32 06/14/24 06:32 Labs: Laboratory Results - last 24 hr 06/14/24 06:32: WBC 8.6, RBC 4.64, Hgb 12.9 L, Hct 40.4, MCV 87.1, MCH 27.8, MCHC 31.9 L, RDW Std Deviation 51.2 H, RDW Coeff of Bhanu 16.3 H, Plt Count 340, MPV 9.0, Immature Gran % (Auto) 0.500, Neut % (Auto) 50.8, Lymph % (Auto) 30.6, Lane % (Auto) 11.4 H, Eos % (Auto) 6.1 H, Baso % (Auto) 0.6, Absolute Neuts (auto) 4.4, Absolute Lymphs (auto) 2.62, Nucleated RBC % 0, Sodium 144, Potassium 3.2 L, Chloride 111 H, Carbon Dioxide 26.0, Anion Gap 7, BUN 10, Creatinine 0.81, Estim Creat Clear Calc 106.44, Est GFR (MDRD) Af Amer 124, Est GFR (MDRD) Non-Af 102, BUN/Creatinine Ratio 12.4, Glucose 161 H, Calcium 8.5 Micro: Microbiology 06/11/24 17:28 Urine Catheter - Catheter Urine Culture - Preliminary Pseudomonas aeruginosa
--- NOTE | 2024-06-14 15:52 | PCM.DC.SUM ---
Providers Date of Admission: 06/11/24 Date of Discharge: 06/14/24 Primary Care Physician: [facility] Consultations 06/11/24 23:24 Consult: Onc/Wound/slurry mixer Routine Comment: Reason for Consult:: wound 06/14/24 12:11 Consult: Infectious Disease Routine Consulting Provider: Maulik Jenkins Reason for Consult: antibiotic recommendations PsA UTI EMERGENT Consult: No MD Notified: Yes Date Notified: 06/14/24 Time Notified: 12:10 Method of Notification: Text Reason For Visit: UTI, SUSPECTED RUL PNA, HYPOKALEMIA & GENERALIZED Diagnosis Discharge Diagnosis (1) Acute cystitis with hematuria: Status: Acute Code(s): N30.01 - Acute cystitis with hematuria (2) Pneumonia: Status: Acute Code(s): J18.9 - Pneumonia, unspecified organism Qualifiers: Laterality: right Lung location: unspecified part of lung Pneumonia type: due to unspecified organism Qualified Code(s): J18.9 - Pneumonia, unspecified organism (3) Metabolic encephalopathy: Status: Acute Code(s): G93.41 - Metabolic encephalopathy (4) Hypokalemia: Status: Acute Code(s): E87.6 - Hypokalemia (5) Paraplegia: Status: Chronic Code(s): G82.20 - Paraplegia, unspecified (6) Sacral decubitus ulcer, stage III: Status: Acute Code(s): L89.153 - Pressure ulcer of sacral region, stage 3 (7) Generalized weakness: Status: Acute Code(s): R53.1 - Weakness (8) Lethargy: Status: Acute Code(s): R53.83 - Other fatigue (9) 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: Status: Acute Code(s): S72.001K - Fracture of unspecified part of neck of right femur, subsequent encounter for closed fracture with nonunion (10) Acute hip pain: Status: Acute Code(s): M25.559 - Pain in unspecified hip Qualifiers: Laterality: right Qualified Code(s): M25.551 - Pain in right hip (11) History of coronary artery stent placement: Status: Acute Code(s): Z95.5 - Presence of coronary angioplasty implant and graft (12) Tobacco abuse: Status: Acute Code(s): Z72.0 - Tobacco use (13) Marijuana use: Status: Acute Code(s): F12.90 - Cannabis use, unspecified, uncomplicated Plan 64-year-old gentleman with history of chronic paraplegia, had plastic surgery and chronic decubitus ulcer stage IV was admitted with generalized weakness and right hip pain. 1. Acute CAUTI secondary to Pseudomonas aeruginosa; with microscopic hematuria likely due to chronic suprapubic catheter with a corresponding Leukocytosis of 12.7 K present on admission [facility] Has suprapubic catheter. Prelim urine culture shows GNR more than 100,000 colonies. 06/14: Urine culture showed Pseudomonas aeruginosa more than 100,000 colonies. IV Zosyn was started on 06/13. Rocephin discontinued. ID was consulted. Impression was symptomatic UTI therefore prescription for IV Zosyn for 5 more days ordered by ID. Midline ordered. Midline inserted. IV antibiotic arranged. Discussed with the case checker. Patient is discharged with home health. 2. Pneumonia ruled out. Chest x-ray is chronic multifocal gestational thickening: CT chest was done which shows minor interstitial thickening and subcentimeter noncalcified nodules in the right lower lobe. Does not seem an acute infectious process, consolidation, or bronchopneumonia. IV azithromycin discontinued 3. Metabolic encephalopathy: Acute encephalopathy has resolved. 4. Hypokalemia of 3.4 mmol/L present on admission: Potassium supplement added. 5. Chronic Paraplegia with history of transverse myelitis; with neurogenic bladder and history of suprapubic catheter superimposed acute Generalized Weakness and Lethargy with numerous stage III-IV sacral decubiti noted on admission -discussed with the wound nurse. He has chronic stage IV decubitus. Does not look infected. She has seen the patient in the past. 6. Chronic history of intertrochanteric fracture due to lytic lesion in his femur: Patient was worked in [facility] and was not felt to be surgical candidate. Recommend to follow-up with [facility]. 7. History of CAD; s/p proximal LAD stent (2021) on baby aspirin and ticagrelor - Resume BASA and ticagrelor as previous. 8. History of tobacco abuse - Tobacco Cessation will be strongly encouraged with Nicotine patch offered to control cravings. 9. History of cannabis abuse - Cannabis Cessation will be strongly encouraged. 10. Essential hypertension; on carvedilol and lisinopril - Maintain current regimen as before. 11. Hyperlipidemia; on rosuvastatin - Hold statin in case of possible myotoxicity contributing to #4. 12. Overweight; with a BMI of 26 this admission - Weight loss will be recommended. Check TSH. DVT prophylaxis - Heparin 5,000 units SQ TID. Discharge medication reconciliation done. Discharge follow-up instructions completed. Discharge process discussed with the patient and all questions were answered to patient's satisfaction. Follow with PCP in 1 to 2 weeks Total time spent, exact 35 minutes on discharge meds reconciliation, examination, coordination of care with nurses and ancillary staff, review of imaging and blood test and discussion with the patient on follow-up instructions. Medications at Discharge Home Medications baclofen 20 mg tablet 20 mg PO TID muscle spasms 02/26/13 multivitamin with folic acid 400 mcg tablet (Thera) 1 tab PO LUNCH supplemeny 02/26/13 gabapentin 100 mg capsule 900 mg PO TID neuropathy 04/19/13 nortriptyline 50 mg capsule 100 mg PO QHS anxiety 01/19/19 ascorbic acid (vitamin C) 1,000 mg tablet (Vitamin C) 1 g PO DAILY Check with primary doctor 06/28/21 cholecalciferol (vitamin D3) 50 mcg (2,000 unit) capsule (Vitamin D3) 50 mcg PO DAILY Check with primary doctor 06/28/21 docusate sodium 100 mg capsule 100 mg PO BID Check with primary doctor 06/28/21 loratadine 10 mg capsule 10 mg PO DAILY Check with primary doctor 06/28/21 venlafaxine 75 mg tablet 150 mg PO DAILY Check with primary doctor 06/28/21 apixaban 2.5 mg tablet (Eliquis) 2.5 mg PO BID 30 days #60 tabs 06/29/21 aspirin 81 mg tablet,delayed release 81 mg PO BREAKFAST heart health 30 days #30 tabs 06/29/21 carvedilol 6.25 mg tablet 6.25 mg PO BID heart 30 days #60 tabs 06/29/21 rosuvastatin 10 mg tablet (Crestor) 10 mg PO DAILY #30 tabs 06/29/21 ticagrelor 90 mg tablet (Brilinta) 90 mg PO BID 30 days #60 tabs 06/29/21 lisinopril 2.5 mg tablet 2.5 mg PO DAILY #30 tabs 07/06/21 lorazepam 0.5 mg tablet (Ativan) 0.5 mg PO BID PRN nausea and vomiting #6 tabs 05/22/22 ondansetron 4 mg disintegrating tablet 4 mg PO Q6H PRN nausea and vomiting #10 tabs 05/22/22 ondansetron 4 mg disintegrating tablet 4 mg PO Q8H PRN nausea and vomiting #10 tabs 06/06/22 buprenorphine 10 mcg/hour weekly transdermal patch 1 patch transdermal Q7D pain 06/11/24 piperacillin-tazobactam 3.375 gram/50 mL dextrose(iso-os) IV piggyback (Zosyn) 3.375 g (56.25 mL) IV Q8H 5 days 06/14/24 Physical Exam Narrative Seen and examined. Patient feels good and wants to go home. Advised to wait until seen by infectious disease doctor. Patient was recommended total 7 days of IV antibiotic Zosyn. Patient is bedbound, paraplegic. Physical exam: General: Alert, Oriented x3, Cooperative. BMI 31.1 kg per square HEENT: Atraumatic, PERRLA, EOMI, Normocephalic Oral: No Gingival or Mucosal Lesions/ Ulcerations Neck: Supple, No JVD, Negative Carotid Bruits Chest wall/Lungs: Air entry diminished in bilateral lung bases. No crepitation/rhonchi Cardiovascular: Regular rate, Regular Rhythm, Normal S1, Normal S2, No M/G/R Abdomen: Bowel Sounds Present, Soft, Non Tender, Non-Distended. Colostomy. : Suprapubic catheter. Extremities: Mild dependent edema. Capillary Refill Less than 3 Seconds Skin: Sacral decubitus. Chronic ulcer over right ischium/posterior scrotal region with fibrosis, contracture, scarring and chronic granulation tissue on the margin Musculoskeletal: Chronic Paraplegia with contracture. ROM not possible. Bilateral lower extremity muscle atrophy. Muscle strength possible 2/5 at knees and hip joints Neurological: Cranial nerves II-XII grossly intact, DTR 2/4. Functional quadriplegia Psych/Mental Status: Flat affect Weight / BMI Weight Weight: 210 lb 8.663 oz Body Mass Index (BMI) 31.1 ABG / Lab / Microbiology Data 06/14/24 06:32 06/14/24 06:32 Laboratory: Laboratory Results - last 24 hr 06/14/24 06:32: WBC 8.6, RBC 4.64, Hgb 12.9 L, Hct 40.4, MCV 87.1, MCH 27.8, MCHC 31.9 L, RDW Std Deviation 51.2 H, RDW Coeff of Bhanu 16.3 H, Plt Count 340, MPV 9.0, Immature Gran % (Auto) 0.500, Neut % (Auto) 50.8, Lymph % (Auto) 30.6, [place] % (Auto) 11.4 H, Eos % (Auto) 6.1 H, Baso % (Auto) 0.6, Absolute Neuts (auto) 4.4, Absolute Lymphs (auto) 2.62, Nucleated RBC % 0, Sodium 144, Potassium 3.2 L, Chloride 111 H, Carbon Dioxide 26.0, Anion Gap 7, BUN 10, Creatinine 0.81, Estim Creat Clear Calc 106.44, Est GFR (MDRD) Af Amer 124, Est GFR (MDRD) Non-Af 102, BUN/Creatinine Ratio 12.4, Glucose 161 H, Calcium 8.5 Microbiology: Microbiology 06/11/24 17:28 Urine Catheter - Catheter Urine Culture - Final Pseudomonas aeruginosa 06/11/24 17:28 Urine Catheter - Catheter Legionella Antigen - Final 06/11/24 17:28 Urine Catheter - Catheter Streptococcus pneumoniae Antigen (M - Final 06/11/24 16:56 Mucosa - Nose SARS-CoV-2, Influenza & RSV (PCR) - Final D/C Instructions DC O2, CPAP, BIPAP Needs Home O2 Discharge instructions: No Meaningful Use Info Meaningful Use Meaningful Use Diagnoses (Choose all that apply): None applicable Ischemic Stroke Statin Dosing Therapy Reference: STATIN DOSE THERAPY REFERENCE: * Patients > 75 years receive moderate or high dose statin therapy. * Patients 75 years or YOUNGER should receive HIGH intensity statin dose unless contraindicated. You will be required to document reason for non-treatment if statin daily dose does not meet guidelines. HIGH DOSE STATIN THERAPY DAILY Atorvastatin > than or = to 40 mg Rosuvastatin > than or = to 20 mg Amlodipine + Atorvastatin > than or = to 2.5/40 mg Ezetimibe + Simvastatin 10/80 mg Simvastatin 80mg Discharge Plan Admission Admit Date/Time: 06/11/24 21:41 Primary Reason for Your Visit: Pseudomonas associated UTI Attending Provider: Darian Arceo Primary Care Provider: [facility],[place] Consulting Providers: Ronak Quiroz; Maulik Jenkins Discharge Orders/Prescriptions Prescriptions: New Zosyn in dextrose (iso-osm) 3.375 gram/50 mL piggyback 3.375 g IV Q8H 5 Days Rx Instructions: dx: pseudomonas infection. Midline care per protocol. Continued baclofen 20 MG tablet 20 mg PO TID Patient Comments: MUSCLE SPASMS multivitamin with folic acid [Thera] 1 TABLET tablet 1 tab PO LUNCH Patient Comments: SUPPLEMENT gabapentin 100 MG capsule 900 mg PO TID Patient Comments: NEUROPATHY nortriptyline 50 MG capsule 100 mg PO QHS ascorbic acid (vitamin C) [Vitamin C] 1,000 mg Tablet 1 g PO DAILY venlafaxine 75 mg Tablet 150 mg PO DAILY docusate sodium 100 mg Capsule 100 mg PO BID cholecalciferol (vitamin D3) [Vitamin D3] 50 mcg (2,000 unit) Capsule 50 mcg PO DAILY loratadine 10 mg Capsule 10 mg PO DAILY carvedilol 6.25 mg Tablet 6.25 mg PO BID 30 Days Qty: 60 0RF aspirin 81 mg Tablet,Delayed Release (Dr/Ec) 81 mg PO BREAKFAST 30 Days Qty: 30 0RF Brilinta 90 mg Tablet 90 mg PO BID 30 Days Qty: 60 0RF Eliquis 2.5 mg Tablet 2.5 mg PO BID 30 Days Qty: 60 0RF rosuvastatin [Crestor] 10 mg tablet 10 mg PO DAILY Qty: 30 0RF ondansetron 4 mg tablet,disintegrating 4 mg PO Q6H PRN (Reason: nausea and vomiting) Qty: 10 0RF lorazepam [Ativan] 0.5 mg tablet 0.5 mg PO BID PRN (Reason: nausea and vomiting) Qty: 6 0RF ondansetron 4 mg tablet,disintegrating 4 mg PO Q8H PRN (Reason: nausea and vomiting) Qty: 10 0RF buprenorphine 10 mcg/hour patch weekly 1 patch transdermal Q7D Patient Comments: last applied was Monday06/07/2024 lisinopril 2.5 mg tablet 2.5 mg PO DAILY Qty: 30 11RF Discontinued doxycycline monohydrate 100 mg Capsule 100 mg PO BID ciprofloxacin HCl 500 mg tablet 500 mg PO BID Qty: 14 0RF Referrals / Follow Up: Maulik Jenkins MD [Med Staff - Active Staff] - Within 1 Month [facility] [Primary Care Provider] - Within 2 Weeks Disposition Disposition (needs filled in before D/C Order can be placed): Home Health Service Charges/Coding Visit Charges Inpatient E&M: 90791 Disch Hosp >30min
[2024-06-14 17:05] VITALS: BP 138/78; PULSE 82; RESP 18; TEMP 36.6; O2SAT 100
[2024-06-14 20:18] VITALS: BP 156/96; PULSE 90; RESP 16; TEMP 36.6; O2SAT 98
--- NOTE | 2024-06-14 20:23 | NURSING ---
Talked to transport. will be picked up in 45 minutes to an hour.
[2024-06-14] MEDS: Nortriptyline 25 MG Capsule 100 MG PO (20:25)
[2024-06-14 21:55] VITALS: BP 155/76; PULSE 90; RESP 16; TEMP 36.7; O2SAT 98
== END 2024-06-14 21:59 | disposition home health service (06) | DRG 698 ==
LOC: ED 20:54 → MS3 22:25
PROVIDERS: Admitting Provider Internal Medicine; Emergency Provider Emergency Medicine; Visit Provider Internal Medicine
DX: T83.518A Infection and inflammatory reaction due to other urinary catheter, initial encounter (principal); G93.41 Metabolic encephalopathy; L89.154 Pressure ulcer of sacral region, stage 4; L89.894 Pressure ulcer of other site, stage 4; N30.01 Acute cystitis with hematuria; S72.141K Displaced intertrochanteric fracture of right femur, subsequent encounter for closed fracture with nonunion; L89.220 Pressure ulcer of left hip, unstageable; I10 Essential (primary) hypertension; F12.10 Cannabis abuse, uncomplicated; F32.A Depression, unspecified; Z93.3 Colostomy status; L89.322 Pressure ulcer of left buttock, stage 2; E78.5 Hyperlipidemia, unspecified; F17.200 Nicotine dependence, unspecified, uncomplicated; E87.6 Hypokalemia; I25.10 Atherosclerotic heart disease of native coronary artery without angina pectoris; F41.9 Anxiety disorder, unspecified; F44.4 Conversion disorder with motor symptom or deficit; X58.XXXA Exposure to other specified factors, initial encounter; B96.5 Pseudomonas (aeruginosa) (mallei) (pseudomallei) as the cause of diseases classified elsewhere; E66.3 Overweight; Z68.26 Body mass index [BMI] 26.0-26.9, adult; Z74.01 Bed confinement status; Z95.5 Presence of coronary angioplasty implant and graft; Z79.01 Long term (current) use of anticoagulants; Z79.02 Long term (current) use of antithrombotics/antiplatelets; Z79.82 Long term (current) use of aspirin; Z79.899 Other long term (current) drug therapy
CPT/HCPCS: 36415; 71045; 71250; 73502; 80048; 80053; 80307; 81001; 82607; 82746; 83605; 84443; 84484; 85025; 87040; 87077; 87086; 87088; 87184; 87186; 87449; 87631; 93005; 93971; 94668; 97161; 97166; 97802; 99285; 99406; A4216; J2405

== ENCOUNTER 2024-06-16 16:23 | Inpatient (IN) | payer OTHER, SELFPAY ==
[2024-06-16] VITALS (10 sets, daily range): BP systolic 155–186; BP diastolic 98–116; PULSE 78–88; RESP 15–19; TEMP 36.3–36.8; O2SAT 95–99; BMI 26.2; BMI 24.5
--- NOTE | 2024-06-16 17:05 | EKG12_ITS ---
Test Reason : Blood Pressure : */* mmHG Vent. Rate : 81 BPM Atrial Rate : 81 BPM P-R Int : 132 ms QRS Dur : 88 ms QT Int : 412 ms P-R-T Axes : 15 62 61 degrees QTcB Int : 478 ms Normal sinus rhythm Normal ECG Confirmed by NOEMI MARR, ALAN ([id number]), offline editor AURORA FOURNIER ([id number] on 06/17/2024 10:59:05 A M Referred By: Confirmed By: ALAN FRANKLIN MD
--- NOTE | 2024-06-16 17:06 | EDS_ITS ---
HPI History of Present Illness Chief Complaint: Complaint Informant: patient and EMS Narrative Narrative: 64-year-old male bedridden at home due to paraplegia as well as a right hip fracture which is being treated nonoperatively, he has a suprapubic catheter and a diverting colostomy, he developed a Pseudomonas UTI and was admitted for it about 5 days ago, the culture showed Pseudomonas aeruginosa sensitive to Zosyn and he was discharged home with a PICC line in his left upper extremity and IV Zosyn. He states for reasons that are not exactly cleared him, his has been caring for him and managing the IV medication, she accidentally ruined 2 of the bags, and in the end he has received no home doses of the antibiotic since he has been at home. He states he feels terrible, his symptoms have not improved at all, which is basically myalgias and malaise/lethargy. Denies any abdominal pain, vomiting. States has been having some headaches off and on, he states it is improved right now. 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 Neurogenic bladder Benign essential hypertension Home Medications ?Medication ?Instructions ?Recorded ?Last Taken ?Type baclofen 20 mg tablet 20 mg PO TID muscle spasms 02/26/13 06/27/21 History multivitamin with folic acid 400 1 tab PO LUNCH supplemeny 02/26/13 06/27/21 History mcg tablet (Thera) gabapentin 100 mg capsule 900 mg PO TID neuropathy 04/19/13 06/27/21 History nortriptyline 50 mg capsule 100 mg PO QHS anxiety 01/19/19 06/26/21 History ascorbic acid (vitamin C) 1,000 mg 1 g PO DAILY Check with primary 06/28/21 Unknown History tablet (Vitamin C) doctor cholecalciferol (vitamin D3) 50 50 mcg PO DAILY Check with primary 06/28/21 Unknown History mcg (2,000 unit) capsule (Vitamin doctor D3) docusate sodium 100 mg capsule 100 mg PO BID Check with primary 06/28/21 Unknown History doctor loratadine 10 mg capsule 10 mg PO DAILY Check with primary 06/28/21 Unknown History doctor venlafaxine 75 mg tablet 150 mg PO DAILY Check with primary 06/28/21 Unknown History doctor apixaban 2.5 mg tablet (Eliquis) 2.5 mg PO BID 30 days #60 tabs 06/29/21 Unknown Rx aspirin 81 mg tablet,delayed 81 mg PO BREAKFAST heart health 30 06/29/21 Unknown Rx release days #30 tabs carvedilol 6.25 mg tablet 6.25 mg PO BID heart 30 days #60 06/29/21 Unknown Rx tabs lisinopril 2.5 mg tablet 2.5 mg PO DAILY #30 tabs 07/06/21 Unknown Rx ondansetron 4 mg disintegrating 4 mg PO Q8H PRN nausea and 06/06/22 Unknown Rx tablet vomiting #10 tabs buprenorphine 10 mcg/hour weekly 1 patch transdermal Q7D pain 06/11/24 Unknown History transdermal patch piperacillin-tazobactam 3.375 3.375 g (56.25 mL) IV Q8H 5 days 06/14/24 Unknown Rx gram/50 mL dextrose(iso-os) IV piggyback (Zosyn) doxycycline hyclate 100 mg capsule 100 mg PO BID 06/16/24 Unknown History rosuvastatin 10 mg tablet (Crestor) 20 mg PO DAILY 06/16/24 Unknown History Allergy/AdvReac Type Severity Reaction Status Date / Time No Known Allergies Allergy Verified 06/11/24 16:19 Family History Father CVA (cerebral vascular accident) Heart disease Myocardial infarction Surgical History History of coronary artery stent placement (06/28/21) History of femoral derotational osteotomy History of appendectomy History of suprapubic catheter Hx of colostomy Colostomy in place Social History household members: spouse Smoking Status: Light Smoker (<10/day) alcohol intake: former substance use type: marijuana ROS ROS ED Constitutional Constitutional ED: Reports body ache(s), chills, fever(s), malaise, subjective and weakness Eyes Eyes: Denies change in vision or diplopia ENT ENT ED: Denies rhinorrhea or sore throat Cardiovascular Cardiovascular: Denies chest pain or palpitations Respiratory/Chest Respiratory/Chest: Denies cough or dyspnea Gastrointestinal Gastrointestinal: Denies abdominal pain, diarrhea, nausea or vomiting Genitourinary Genitourinary ED: Denies dysuria or hematuria Musculoskeletal Musculoskeletal: Denies back pain or neck pain Integumentary Denies abscess or rash Neurologic Neurologic: Reports headache(s), paresthesias, weakness and other Details: No new neurologic symptoms EXAM Physical Exam Const Vital Signs: 06/16/24 16:24 06/16/24 17:05 06/16/24 17:28 Temperature 97.4 F L 97.9 F Temperature Source Temporal Oral Pulse Rate 88 84 Respiratory Rate 18 18 Blood Pressure 184/116 H 178/109 H Blood Pressure Mean 138 132 Pulse Ox 98 99 97 Oxygen Delivery Method Room Air Room Air Room Air 06/16/24 18:00 06/16/24 18:28 06/16/24 19:00 Temperature 97.4 F L 97.7 F L Temperature Source Temporal Oral Pulse Rate 78 87 78 Respiratory Rate 19 H 15 16 Blood Pressure 186/100 H 155/100 H 180/101 H Blood Pressure Mean 128 118 127 Pulse Ox 99 97 98 Oxygen Delivery Method Room Air Room Air Room Air Positive well nourished and well developed General Appearance ED: well developed and NAD HEENT Reports moist mucous membranes normocephalic and atraumatic Eyes PERRL and EOMs intact bilaterally Neck full ROM and supple Resp normal respiratory effort and clear to auscultation bilaterally Cardio regular rate, regular rhythm and no murmurs Rate: Negative for tachycardic GI non-tender and non-distended GI Narrative: Suprapubic catheter site benign. No tenderness around left lower quadrant colostomy. Auscultation: normoactive bowel sounds Palpation: soft Back/Spine no CVA tenderness General Back: other FROM Extremity normal to inspection General Extremety ED: Negative for edema, pulses abnormal or tenderness General Extremity: Negative for edema or pulses abnormal Neuro oriented x3 and CN's II-XII intact bilaterally Neuro Narrative: Paraplegia bilateral lower extremities. Normal neurologic exam both upper ext remities. Sensorium / Orientation: awake and alert Psych mental status grossly normal Skin no rashes or lesions noted MDM MDM MDM Narrative Medical decision making narrative: Septic workup obtained I reviewed the workup from before which did not appear to show sepsis due to his urinary infection. I am also obtaining a CT of the head to rule out intracranial hemorrhage given the fact that he is anticoagulated, and has been having unusual headaches, which could also be related to his infection and/or sepsis. CT of the head was obtained in order to rule out intracranial bleed, I reviewed the images and report which I agree with, negative for anything acute. 1 view chest x-ray on my interpretation shows no pneumonia. I reviewed the radiologist interpretation and agree with the tip of the PICC is in the left axilla, consistent with a midline. The other labs are noted. He has a leukocytosis which is new, but his lactate is within normal limits. His other blood counts are normal and his renal function is normal. His urine is still showing signs of infection as expected. I recultured him since it is over 48 hours and he was presenting with possible sepsis syndrome, however his vital signs have been stable with actually high blood pressure and a normal lactate, so I do not think he is necessarily septic, but obviously at this time it is weekend and he is failing outpatient therapy, discussed with hospitalist for admission. Of note, nursing did discuss with the over the phone, and apparently they have home health coming but between the home health aide/RN and the patient's significant other, it was unknown when to administer the antibiotic and so they chose not to. The patient also states that his accidentally damage to with the bags as well. History & Record Review Additional record(s) reviewed:: Prior inpatient record (Recent discharge summary along with urine culture and discharged on Zosyn) and Prior ED visit Lab Data Attestation: I reviewed the patient's lab results. Labs: Laboratory Results - last 24 hr 06/16/24 06/16/24 17:16 17:24 WBC 13.9 H RBC 5.22 Hgb 14.5 Hct 44.4 MCV 85.1 MCH 27.8 MCHC 32.7 RDW Std Deviation 49.8 H RDW Coeff of Bhanu 16.1 H Plt Count 387 MPV 8.7 Immature Gran % (Auto) 0.600 Neut % (Auto) 72.2 H Lymph % (Auto) 16.2 L [place] % (Auto) 7.3 Eos % (Auto) 3.2 Baso % (Auto) 0.5 Absolute Neuts (auto) 10.0 H Absolute Lymphs (auto) 2.25 Nucleated RBC % 0 PT 13.9 INR 1.1 APTT 43.2 H Sodium 140 Potassium 3.7 Chloride 108 H Carbon Dioxide 27.0 Anion Gap 5 BUN 11 Creatinine 0.70 Estim Creat Clear Calc 108.01 Est GFR (MDRD) Af Amer 146 Est GFR (MDRD) Non-Af 121 BUN/Creatinine Ratio 15.7 Glucose 114 H Lactic Acid 1.1 Calcium 9.4 Total Bilirubin 0.40 AST 20 ALT 19 Alkaline Phosphatase 143 H Total Protein 7.5 Albumin 2.7 L Globulin 4.8 H Albumin/Globulin Ratio 0.6 L Urine Color Yellow Urine Clarity Sl. Cloudy Urine pH 6.5 Ur Specific [place] 1.015 Urine Protein 30 H Urine Glucose (UA) Normal Urine Ketones 5 H Urine Occult Blood 150 H Urine Nitrite Positive H Urine Bilirubin Negative Urine Urobilinogen Normal Ur Leukocyte Esterase 100 H Urine RBC 10-25 SEEN Urine WBC 50-100 SEEN Ur Squamous Epith Cells 0-5 SEEN Calcium Oxalate Crystal 2+ Urine Bacteria 1+ Hyaline Casts 0-5 SEEN Urine Mucus 1+ Radiography Diagnostic Testing: Clinical Impression(s) from Imaging Studies Brain CT 06/16/24 17:08 IMPRESSION: There are no acute findings. Chronic involutional changes of the brain. Electronically Signed: Geraldo Bowling MD at 18:11 EST , Chest X-Ray 06/16/24 17:30 IMPRESSION: There is a left peripherally inserted central catheter (PICC) tip in the line. Tip in the left axilla. Electronically Signed: Geraldo Bowling MD at 18:12 EST , Rhythm Strip Rhythm Strip: Sinus Rhythm Rate: 80 Ectopy: None EKG Initial EKG: Attestation: I personally reviewed and interpreted this EKG as follows: Interpretation: Sinus Rhythm and No Acute Injury Pattern Comments: Nml axis & intervals; nml EKG Management Discussion w/another healthcare provider: Hospitalist Discharge Plan Dx/Rx/DC Orders Clinical Impression: Failure of outpatient treatment, Pseudomonas urinary tract infection, Fracture of right hip, Debility, Paraplegia Disposition Disposition: Acute Care Hospital [facility]
--- NOTE | 2024-06-16 17:08 | CT_ITS ---
STUDY: CT BRAIN WITHOUT CONTRAST REASON FOR EXAM: Male, 64 years old. Headache, anticoagulated Individualized dose optimization techniques were used for this CT. TECHNIQUE: Transaxial CT imaging of the brain was performed without administration of intravenous contrast material. COMPARISON: MRI 10/03/2009 FINDINGS: There are calcifications around the carotid artery. These are noted in the cavernous carotid arteries. Normal calvarium. Normal soft tissues. Prominent extra-axial spaces. There is mild cerebral atrophy with widening of the extra-axial spaces and ventricular dilatation. There are areas of decreased attenuation within the white matter tracts of the supratentorial brain, consistent with microvascular disease changes. Normal basal ganglia and thalami. Normal brainstem. There is mild cerebellar atrophy. There is no intracranial hemorrhage. There are no findings of an acute ischemic infarction. Normal visualized paranasal sinuses. ASPECTS Score for Acute Strokes: 03/07 CT/Brain/Head without Contrast IMPRESSION: There are no acute findings. Chronic involutional changes of the brain. Electronically Signed: Geraldo Bowling MD at 18:11 EST Reading Location ID and State: [facility] / [place] , Service support ,
[2024-06-16] MEDS: 0.9% Normal Saline (500mL Bag) 500 ML 999 ML IV (17:29)
[2024-06-16] MEDS: Piperacil/Tazobactam 3.375 GM in 0.9% Normal Saline (50mL MB+) 50 ML IV ×2 (17:29→22:23)
--- NOTE | 2024-06-16 17:30 | RAD_ITS ---
EXAM: XR CHEST, 1 VIEW CLINICAL INDICATION: fevers TECHNIQUE: Frontal view of the chest. COMPARISON: 06/11/2024 FINDINGS: LUNGS AND PLEURAL SPACES: Unremarkable. No consolidation or edema. No pneumothorax. No effusion. HEART: Unremarkable. Cardiac silhouette not enlarged. MEDIASTINUM: Central airways and mediastinal contour are unremarkable. BONES/JOINTS: Unremarkable. No acute fracture. SOFT TISSUES: Unremarkable. TUBES, LINES AND DEVICES: There is a left peripherally inserted central catheter (PICC) tip in the line. Tip in the left axilla. RAD/Chest 1 View (Portable) IMPRESSION: There is a left peripherally inserted central catheter (PICC) tip in the line. Tip in the left axilla. Electronically Signed: Geraldo Bowling MD at 18:12 EST Reading Location ID and State: [facility] / [place] , Service support ,
[2024-06-16 17:32] LABS: Absolute Lymphocyte Count 2.25 X10^3/uL (0.83-4.51); Basophil# 0.07 X10^3/uL; Basophil% 0.5 % (0-1); Eosinophil# 0.45 X10^3/uL; Eosinophils% 3.2 % (0-5); Hematocrit 44.4 % (40-54); Hemoglobin 14.5 g/dL (13.0-16.5); Lymphocyte # 2.25 X10^3/ul (0.83-4.51); Lymphocyte % 16.2 % (19-41); Mean Corp Hgb Conc 32.7 g/dL (32-36); Mean Corpuscular Hgb 27.8 pg (27.0-32.0); Mean Corpuscular Volume 85.1 fL (80-94); Mean Platelet Vol. 8.7 fl (6.2-12.0); Monocyte# 1.01 X10^3/uL; Monocyte% 7.3 % (0-10); NRBC Flagged by Analyzer 0 % (0-5); Neutrophil # 9.99 X10^3/uL (2.7-7.7); Neutrophil % 72.2 % (47-70); Platelet Count 387 K/mm3 (150-450); RBC Distribution Width CV 16.1 % (11.6-14.6); RBC Distribution Width SD 49.8 fl (35.1-43.9); Red Blood Count 5.22 M/mm3 (4.6-6.2); White Blood Count 13.9 K/mm3 (4.4-11.0)
[2024-06-16 17:38] LABS: Color, Urine Yellow (Yellow); Glucose, Dipstick Normal (Normal); Ketone-Dipstick 5 mg/dl (Negative); Leukocyte Esterase-Dipstick 100 /ul (Negative); Nitrite-Dipstick Positive (Negative); Occult Blood-Urine 150 /ul (Negative); Protein-Dipstick 30 mg/dl (Negative); Specific Gravity, Urine 1.015 (1.002-1.030); Urine Bilirubin Dipstick Negative (Negative); Urine Clarity Sl. Cloudy (Clear); Urine Urobilinogen Normal (Normal); Urine pH 6.5 (5.0 - 8.0)
[2024-06-16 17:43] LABS: International Normalized Ratio 1.1; Prothrombin Time (Protime)PT. 13.9 SECONDS (11.7-14.9)
[2024-06-16 17:44] LABS: Partial Thromboplast Time 43.2 Seconds (24.1-36.2)
[2024-06-16 17:55] LABS: Mucous, Urine 1+ /hpf (<or=2+)
[2024-06-16 17:56] LABS: Bacteria 1+ /hpf (None Seen); White Blood Cells 50-100 SEEN /hpf (0-5)
[2024-06-16 17:57] LABS: Red Blood Cells-Urine 10-25 SEEN /hpf (0-5)
[2024-06-16 17:58] LABS: Hyaline Cast 0-5 SEEN /lpf (0-5); Squamous Epithelial Cells - UA 0-5 SEEN /hpf (0-5)
[2024-06-16 17:59] LABS: Calcium Oxalate Crystals Ur 2+ /hpf (<or=2+)
[2024-06-16 17:59] LABS: ALB/GLOB Ratio 0.6 RATIO (0.9-2.4); AST(SGOT) 20 U/L (15-37); Alanine Aminotransfer ALT/SGPT 19 U/L (16-61); Albumin, Serum 2.7 g/dL (3.2-5.0); Alkaline Phosphatase 143 U/L (45-117); Anion Gap 5 (5-15); BUN 11 mg/dL (7-18); BUN/Creat Ratio 15.7 RATIO (10-20); Calcium,Total 9.4 mg/dL (8.5-10.1); Chloride 108 mmol/L (98-107); EST Glomerular Filtration Rate 121 mL/min (>60); Est Glom Filt Rate - Afr Amer 146 mL/min (>60); Estimated Creatinine Clearance 108.01 ml/min; Globulin 4.8 g/dL (2.2-4.2); Glucose 114 mg/dL (74-106); Potassium 3.7 mmol/L (3.5-5.1); Protein, Total 7.5 g/dL (6.4-8.2); Sodium Level 140 mmol/L (136-145)
[2024-06-16 18:03] LABS: Lactic Acid 1.1 mmol/L (0.4-1.9)
--- NOTE | 2024-06-16 19:37 | PCM.HP.STD ---
[facility] - General General Date of Admission: 06/16/24 Date of Service: 06/16/24 Chief Complaint: Did Not Give IV ATB's. HPI Narrative KALEN RUFFIN, is a 64 M with a past medical history of essential hypertension; on carvedilol and lisinopril, hyperlipidemia; on rosuvastatin, overweight; with a BMI of 26 this admission, history of tobacco abuse, history of cannabis abuse, history of heavy alcohol abuse, history of CAD; s/p proximal LAD stent (2021) on baby aspirin and ticagrelor, history of X; on apixaban, history of paraplegia, history of transverse myelitis; with neurogenic bladder and history of suprapubic catheter, history of acute paralytic poliomyelitis, history of muscle spasticity; on baclofen 20 mg TID, history of neuropathy; on gabapentin, history of femoral derotational osteotomy, history of appendectomy, history of colostomy, depression with anxiety; on venlafaxine, nortriptyline and as needed lorazepam BID and history of osteomyelitis of the Right hip and history of a pop in his right hip that occurred ~8 weeks ago while he was undergoing PT; with subsequent intertrochanteric Right hip fracture suspected to be due to lytic lesions in his femur - s/p evaluation at [facility] with patient not felt to be a surgical candidate and recommended to follow-up with the [facility] and very recent admission here from June 11, 2024 to June 14, 2024 for treatment of Acute Cystitis; with microscopic hematuria likely due to chronic suprapubic catheter with cultures positive for Pseudomonas aeruginosa sensitive to Zosyn complicated by suspected Pneumonia and Metabolic Encephalopathy who was sent home on a 7-day course of IV Zosyn via LUE Mid-Line as recommended by ID talent acquisition consultant who now re-presents to [facility] ER complaining his was not sure when to give the antibiotics so she apparently did not give them. Mr. Ruffin understandably states he feels terrible a this time with a return of the UTI symptoms of myalgias, malaise and lethargy that heralded his previous admission. He informed the ER physician his initially ruined 2 bags of the Zosyn and then did not give the rest with patient stunned at the abysmal care he has received at home. He admits to intermittent tension-type headaches induced by elevated stress levels along with nausea but he denies associated abdominal pain, vomiting, constipation, diarrhea, shortness of breath or chest pain. In the ER he was noted to have a UA positive for Acute Cystitis; with microscopic hematuria due to suprapubic catheter with Leukocytosis of 13.9K present on admission complicated by Uncontrolled Hypertension with blood pressure of 180/101 mmHg present on admission CXR revealing the tip of his Mid-Line is in his axilla in the setting of patient's being unable and/or unwilling to give his medications as prescribed constituting and unsafe environment that he cannot be returned to at this time and he was then admitted to the general medical floor for ongoing care for a stay that is expected to extend beyond 2 midnights. [facility] Medical History Atherosclerotic heart disease of [place] coronary artery without angina pectoris Depression Chronic indwelling [place] catheter Heavy alcohol use Anxiety and depression Acute paralytic poliomyelitis, wild virus, indigenous Osteomyelitis of right femur Transverse myelitis Neurogenic bladder Benign essential hypertension Home Medications ?Medication ?Instructions ?Recorded ?Last Taken ?Type baclofen 20 mg tablet 20 mg PO TID muscle spasms 02/26/13 06/27/21 History multivitamin with folic acid 400 1 tab PO LUNCH supplemeny 02/26/13 06/27/21 History mcg tablet (Thera) gabapentin 100 mg capsule 900 mg PO TID neuropathy 04/19/13 06/27/21 History nortriptyline 50 mg capsule 100 mg PO QHS anxiety 01/19/19 06/26/21 History ascorbic acid (vitamin C) 1,000 mg 1 g PO DAILY Check with primary 06/28/21 Unknown History tablet (Vitamin C) doctor cholecalciferol (vitamin D3) 50 50 mcg PO DAILY Check with primary 06/28/21 Unknown History mcg (2,000 unit) capsule (Vitamin doctor D3) docusate sodium 100 mg capsule 100 mg PO BID Check with primary 06/28/21 Unknown History doctor loratadine 10 mg capsule 10 mg PO DAILY Check with primary 06/28/21 Unknown History doctor venlafaxine 75 mg tablet 150 mg PO DAILY Check with primary 06/28/21 Unknown History doctor apixaban 2.5 mg tablet (Eliquis) 2.5 mg PO BID 30 days #60 tabs 06/29/21 Unknown Rx aspirin 81 mg tablet,delayed 81 mg PO BREAKFAST heart health 30 06/29/21 Unknown Rx release days #30 tabs carvedilol 6.25 mg tablet 6.25 mg PO BID heart 30 days #60 06/29/21 Unknown Rx tabs lisinopril 2.5 mg tablet 2.5 mg PO DAILY #30 tabs 07/06/21 Unknown Rx ondansetron 4 mg disintegrating 4 mg PO Q8H PRN nausea and 06/06/22 Unknown Rx tablet vomiting #10 tabs buprenorphine 10 mcg/hour weekly 1 patch transdermal Q7D pain 06/11/24 06/14/24 History transdermal patch piperacillin-tazobactam 3.375 3.375 g (56.25 mL) IV Q8H 5 days 06/14/24 Unknown Rx gram/50 mL dextrose(iso-os) IV piggyback (Zosyn) doxycycline hyclate 100 mg capsule 100 mg PO BID 06/16/24 Unknown History rosuvastatin 10 mg tablet (Crestor) 20 mg PO DAILY 06/16/24 Unknown History Allergy/AdvReac Type Severity Reaction Status Date / Time No Known Allergies Allergy Verified 06/11/24 16:19 Family History Father CVA (cerebral vascular accident) Heart disease Myocardial infarction Surgical History History of coronary artery stent placement (06/28/21) History of femoral derotational osteotomy History of appendectomy History of suprapubic catheter Hx of colostomy Colostomy in place Social History household members: spouse Smoking Status: Light Smoker (<10/day) alcohol intake: former substance use type: marijuana ROS ROS Narrative Review of Systems: Constitutional: Patient admits to lethargy, malaise and elevated stress levels but he denies fever or chills. Eyes: Patient denies changes in vision or discharge from eyes. ENT: Patient denies runny nose, sore throat or ear pain. Resp: Patient denies shortness of breath or cough. CV: Patient denies chest pain, palpitations or heart racing. GI: Patient admits to nausea but he denies abdominal pain, vomiting, diarrhea or constipation. : Patient has chronic suprapubic catheter but he denies dysuria or hematuria. MSK: Patient admits to diffuse myalgias and chronic right hip pain that is essentially unchanged from previous. Skin: Patient denies rash, abscess or jaundice. Psych: Patient admits to being stressed about his 's poor care at home but denies symptoms of uncontrolled depression or anxiety. Neuro: Patient denies headache, paresthesias or focal neurologic deficits but he does have chronic paraplegia as per HPI. Allergy: Patient denies lip swelling, tongue swelling or urticaria. Hematology: Patient denies easy bleeding or easy bruisability. Endocrinology: Patient denies polyuria, polydipsia or polyphagia. 14 point review of systems otherwise negative except for positives noted above in HPI. Vital Signs Vital Signs Vital Signs: 06/16/24 16:24 06/16/24 17:05 06/16/24 17:28 Temperature 97.4 F L 97.9 F Temperature Source Temporal Oral Pulse Rate 88 84 Respiratory Rate 18 18 Blood Pressure 184/116 H 178/109 H Blood Pressure Mean 138 132 Pulse Ox 98 99 97 Oxygen Delivery Method Room Air Room Air Room Air 06/16/24 18:00 06/16/24 18:28 06/16/24 19:00 Temperature 97.4 F L 97.7 F L Temperature Source Temporal Oral Pulse Rate 78 87 78 Respiratory Rate 19 H 15 16 Blood Pressure 186/100 H 155/100 H 180/101 H Blood Pressure Mean 128 118 127 Pulse Ox 99 97 98 Oxygen Delivery Method Room Air Room Air Room Air Weight Weight: 177 lb 14.609 oz Body Mass Index (BMI) 26.2 Physical Exam Const alert, oriented x3, no apparent distress and average body habitus Constitutional Narrative: Patient chronically ill in appearance. General Appearance: cooperative HEENT normocephalic, head/scalp atraumatic, hearing grossly normal bilaterally and moist oral mucous membranes Eyes PERRL and EOMs intact bilaterally Neck no lymphadenopathy and supple Resp normal respiratory effort, no retractions, no use of accessory muscles and clear to auscultation bilaterally Cardio regular rate and regular rhythm GI normal to inspection, nondistended, normoactive bowel sounds, soft to palpation, non-tender and non-distended GI Narrative: Suprapubic catheter in place. Extremity Extremity Narrative: Patient has chronic paraplegia and LUE Mid-Line in place. Skin Skin Narrative: Patient has multiple stage IV sacral decubiti without erythema or TTP. Neuro oriented x3 and CN's II-XII intact bilaterally Neuro Narrative: Patient has chronic paraplegia. Sensorium / Orientation: awake, alert, oriented to person, oriented to place and oriented to time Speech: speech normal Psych Mood & Affect: anxious Results Medical Records Data Attestation: I reviewed the patient's medical records Lab / Micro Data Attestation: I reviewed the patient's lab results. 06/16/24 17:16 06/16/24 17:16 Labs: Laboratory Results - last 24 hr 06/16/24 17:16: WBC 13.9 H, RBC 5.22, Hgb 14.5, Hct 44.4, MCV 85.1, MCH 27.8, MCHC 32.7, RDW Std Deviation 49.8 H, RDW Coeff of Bhanu 16.1 H, Plt Count 387, MPV 8.7, Immature Gran % (Auto) 0.600, Neut % (Auto) 72.2 H, Lymph % (Auto) 16.2 L, Bowie % (Auto) 7.3, Eos % (Auto) 3.2, Baso % (Auto) 0.5, Absolute Neuts (auto) 10.0 H, Absolute Lymphs (auto) 2.25, Nucleated RBC % 0, PT 13.9, INR 1.1, APTT 43.2 H, Sodium 140, Potassium 3.7, Chloride 108 H, Carbon Dioxide 27.0, Anion Gap 5, BUN 11, Creatinine 0.70, Estim Creat Clear Calc 108.01, Est GFR (MDRD) Af Amer 146, Est GFR (MDRD) Non-Af 121, BUN/Creatinine Ratio 15.7, Glucose 114 H, Lactic Acid 1.1, Calcium 9.4, Total Bilirubin 0.40, AST 20, ALT 19, Alkaline Phosphatase 143 H, Total Protein 7.5, Albumin 2.7 L, Globulin 4.8 H, Albumin/Globulin Ratio 0.6 L 06/16/24 17:24: Urine Color Yellow, Urine Clarity Sl. Cloudy, Urine pH 6.5, Ur Specific [place] 1.015, Urine Protein 30 H, Urine Glucose (UA) Normal, Urine Ketones 5 H, Urine Occult Blood 150 H, Urine Nitrite Positive H, Urine Bilirubin Negative, Urine Urobilinogen Normal, Ur Leukocyte Esterase 100 H, Urine RBC 10-25 SEEN, Urine WBC 50-100 SEEN, Ur Squamous Epith Cells 0-5 SEEN, Calcium Oxalate Crystal 2+, Urine Bacteria 1+, Hyaline Casts 0-5 SEEN, Urine Mucus 1+ Rhythm Strip Rhythm Strip: Sinus Rhythm Rate: 80 Ectopy: None Imaging Radiology Impression Brain CT 06/16/24 17:08 IMPRESSION: There are no acute findings. Chronic involutional changes of the brain. Electronically Signed: Geraldo Bowling MD at 18:11 EST , Chest X-Ray 06/16/24 17:30 IMPRESSION: There is a left peripherally inserted central catheter (PICC) tip in the line. Tip in the left axilla. 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 UA positive for Acute Cystitis; with microscopic hematuria due to suprapubic catheter with Leukocytosis of 13.9K present on admission after his failed to give IV Zosyn at home in the setting of recent admission here from June 11, 2024 to June 14, 2024 for treatment of Acute Cystitis; with microscopic hematuria likely due to chronic suprapubic catheter with cultures positive for Pseudomonas aeruginosa sensitive to Zosyn complicated by suspected Pneumonia and Metabolic Encephalopathy who was sent home on a 7-day course of IV Zosyn via LUE Mid-Line as recommended by ID talent acquisition consultant - Admit to general medical floor. Restart Zosyn 3.375 mg IV TID as per previous recommendations to prevent further clinical deterioration. Give acetaminophen prn for [id number] (level 1-5/10) pain or fever. Give morphine IV prn for severe (level 6-10/10) pain. Finally, we will consult case management to arrange ECF for IV antibiotics since his is seemingly incapable of giving them, with help appreciated in advance. 2. Chronic Paraplegia with history of transverse myelitis; with neurogenic bladder and history of suprapubic catheter superimposed acute Generalized Weakness and Lethargy complicating #1 with numerous stage III-IV sacral decubiti noted on admission - Wound RN to see patient on-rounds in the AM with help appreciated in advance. Finally, we will consult PT/OT and Case Management on-rounds in the AM for further recommendations with help appreciated in advance. 3. History of a pop in his Right hip that occurred ~8 weeks ago while he was undergoing PT; with subsequent intertrochanteric Right hip fracture suspected to be due to lytic lesions in his femur; s/p evaluation at [facility] with patient not felt to be a surgical candidate and recommended to follow-up with the [facility] adding to the medical complexity of #1 & #2 - Noted. 4. History of CAD; s/p proximal LAD stent (2021) on baby aspirin and ticagrelor - Resume BASA and ticagrelor as previous. 5. History of tobacco abuse - Tobacco Cessation will be strongly encouraged with Nicotine patch offered to control cravings. 6. History of cannabis abuse - Cannabis Cessation will be strongly encouraged. 7. Essential hypertension; on carvedilol and lisinopril - Maintain current regimen as before. 8. Hyperlipidemia; on rosuvastatin - Resume statin as previous. 9. Overweight; with a BMI of 26.3 this admission - Weight loss will be recommended. 10. History of heavy alcohol abuse - Patient denies recent EtOH use. 11. History of X; on apixaban - Noted. Patient was restarted on the agent after his recent discharge so it will be continues as preivous. 12. History of acute paralytic poliomyelitis - Noted. 13. History of muscle spasticity; on baclofen 20 mg TID - Resume baclofen as previous. 14. History of neuropathy; on gabapentin - Maintain gabapentin at current dose and schedule. 15. History of femoral derotational osteotomy - Noted. 16. History of appendectomy - Noted. 17. History of colostomy - Noted. 18. Depression with anxiety; on venlafaxine, nortriptyline and as needed lorazepam BID - Current plan to be continued. 19. History of osteomyelitis of the Right hip - Noted. 20. DVT prophylaxis - Patient already on apixaban which will be continued. Total time: Approximately (but not less than) 75 minutes. Charges/Coding Visit Charges Inpatient E&M: 73452 Init Hosp L3
[2024-06-16] MEDS: 0.9% Normal Saline (1000mL) 1,000 ML 70 ML IV (21:15)
[2024-06-16] MEDS: Docusate Sodium 100 MG Capsule PO (22:24)
[2024-06-16] MEDS: APIXABAN 2.5 MG TABLET (WCH) PO (22:24)
[2024-06-16] MEDS: Atorvastatin Calcium 40 MG Tablet PO (22:25)
[2024-06-16] MEDS: Nortriptyline 25 MG Capsule 100 MG PO (22:25)
[2024-06-16] MEDS: Baclofen 10 MG Tablet 20 MG PO (22:26)
[2024-06-16] MEDS: hydrALAZINE 20 MG/ML Vial 10 MG IV (22:40)
[2024-06-16] MEDS: Gabapentin 300 MG Capsule 900 MG PO (22:40)
[2024-06-16] MEDS: 0.9% Saline Lock 10 ML Syringe IV (22:42)
[2024-06-17 02:45] VITALS: BP 124/84; PULSE 90; RESP 16; TEMP 36.8; O2SAT 98
[2024-06-17] MEDS: Piperacil/Tazobactam 3.375 GM in 0.9% Normal Saline (50mL MB+) 50 ML IV ×3 (05:37→21:10)
[2024-06-17] MEDS: Baclofen 10 MG Tablet 20 MG PO ×3 (05:38→21:10)
[2024-06-17] MEDS: Gabapentin 300 MG Capsule 900 MG PO ×3 (05:40→21:09)
[2024-06-17 05:50] VITALS: BMI 24.5
[2024-06-17 06:44] LABS: Absolute Neutrophil Count 6.1 X10^3/uL (2.0-7.7); Basophil# 0.07 X10^3/uL; Basophil% 0.7 % (0-1); Eosinophil# 0.57 X10^3/uL; Eosinophils% 5.5 % (0-5); Hematocrit 42.7 % (40-54); Hemoglobin 13.9 g/dL (13.0-16.5); Lymphocyte % 24.1 % (19-41); Mean Corp Hgb Conc 32.6 g/dL (32-36); Mean Corpuscular Hgb 27.7 pg (27.0-32.0); Mean Corpuscular Volume 85.2 fL (80-94); Monocyte# 1.03 X10^3/uL; Monocyte% 9.9 % (0-10); NRBC Flagged by Analyzer 0 % (0-5); Neutrophil # 6.14 X10^3/uL (2.7-7.7); Neutrophil % 59.1 % (47-70); Platelet Count 363 K/mm3 (150-450); RBC Distribution Width CV 16.3 % (11.6-14.6); RBC Distribution Width SD 50.2 fl (35.1-43.9); Red Blood Count 5.01 M/mm3 (4.6-6.2); White Blood Count 10.4 K/mm3 (4.4-11.0)
[2024-06-17 07:22] LABS: ALB/GLOB Ratio 0.6 RATIO (0.9-2.4); AST(SGOT) 20 U/L (15-37); Alanine Aminotransfer ALT/SGPT 17 U/L (16-61); Albumin, Serum 2.4 g/dL (3.2-5.0); Alkaline Phosphatase 130 U/L (45-117); Anion Gap 6 (5-15); BUN 8 mg/dL (7-18); Calcium,Total 8.9 mg/dL (8.5-10.1); Chloride 108 mmol/L (98-107); Creatinine, Serum 0.57 mg/dL (0.70-1.30); EST Glomerular Filtration Rate 152 mL/min (>60); Est Glom Filt Rate - Afr Amer 184 mL/min (>60); Estimated Creatinine Clearance 132.65 ml/min; Globulin 4.3 g/dL (2.2-4.2); Glucose 101 mg/dL (74-106); Magnesium 1.8 mg/dL (1.6-2.6); Phosphorus 3.2 mg/dL (2.5-4.9); Potassium 3.5 mmol/L (3.5-5.1); Protein, Total 6.7 g/dL (6.4-8.2); Sodium Level 139 mmol/L (136-145)
[2024-06-17] MEDS: Carvedilol 6.25 MG Tablet PO ×2 (07:35→16:45)
[2024-06-17] MEDS: Venlafaxine HCl 75 MG Tablet 150 MG PO (07:35)
[2024-06-17] MEDS: APIXABAN 2.5 MG TABLET (WCH) PO ×2 (07:36→21:10)
[2024-06-17] MEDS: Cholecalciferol (VIT D3) 25 MCG TABLET (1,000 UNITS) 50 MCG PO (07:36)
[2024-06-17] MEDS: Ascorbic Acid 500 MG Tablet 1000 MG PO (07:36)
[2024-06-17] MEDS: Loratadine 10 MG Tablet PO (07:37)
[2024-06-17] MEDS: Docusate Sodium 100 MG Capsule PO ×2 (07:37→21:10)
[2024-06-17] MEDS: Aspirin E.C. 81 MG Tablet PO (07:37)
[2024-06-17] MEDS: Lisinopril 2.5 MG Tablet PO (07:37)
[2024-06-17] MEDS: Morphine 2 MG/ML Syringe IV ×2 (07:44→16:45)
[2024-06-17] MEDS: 0.9% Saline Lock 10 ML Syringe IV (07:45)
[2024-06-17 08:37] VITALS: O2SAT 97
[2024-06-17 08:55] VITALS: BP 123/92; PULSE 96; RESP 16; TEMP 36.6; O2SAT 99
--- NOTE | 2024-06-17 09:56 | CASEMGMT ---
Social Work SW informed by RN that pt would like to go to SNF after this hospital stay. SW called [facility], message left to find out how service connected pt is, SW likely to not get a call back today as it is a holiday. SW met w/pt in room in regard to discharge plan. SW inquired about pt going to a SNF rather than back home. Pt states he wants to return home at discharge. Pt states he has better care at home than he would likely get in s SNF. Pt states he has all the needed DME. He has an aide who comes in M-F for three hours each day, and a nurse who sees him 7 days per week. Pt states he has four siblings in the area, and their children, along with his mother. Pt lives with his ex- Maryana who was helping with the antibiotics. He states she was not shown how to do them at home and the medications were not mixing properly, so she did not know what to do. Since then she has been shown how to do this though and now is able to manage the IV antibiotics at home. Pt would like to return home with the same plan that had been implemented when pt was discharged last week. ANGÉLICA explained will let the rehabilitation case coordinator know. ANGÉLICA let the CM know, she will follow up. MAUREEN Segura
--- NOTE | 2024-06-17 09:57 | CASEMGMT ---
Discharge Planning A list of?SNF providers including quality and resource use data and consistent with the patient's preferred geographic region, medical needs, and insurance network was created in [employer] Guide.? This list was provided to the SW. Zainab Espinal Discharge Planning Asst.
[2024-06-17 11:06] VITALS: BP 95/65; PULSE 82; RESP 20; TEMP 36.5; O2SAT 97
[2024-06-17] MEDS: Multivitamins,Therapeutic Tablet 1 TABLET PO (11:17)
--- NOTE | 2024-06-17 11:18 | PN.HOSP_ITS ---
Reason for Visit Reason for Visit: Diagnoses Pseudomonas (aeruginosa) (mallei) (pseudomallei) as the cause of diseases classified elsewhere (06/16/24) Paraplegia, unspecified (06/16/24) Pressure ulcer of sacral region, stage 3 (06/16/24) Acute cystitis with hematuria (06/16/24) Urinary tract infection, site not specified (06/16/24) Weakness (06/16/24) Other fatigue (06/16/24) Fracture of unspecified part of neck of right femur, subsequent encounter for closed fracture with nonunion (06/16/24) Tobacco use (06/16/24) Presence of coronary angioplasty implant and graft (06/16/24) Objective Data Objective Data Vital Signs: Vital Signs Temp Pulse Resp BP Pulse Ox O2 Del Method 97.7 F L 82 20 H 95/65 97 Room Air 06/17/24 11:06 06/17/24 11:06 06/17/24 11:06 06/17/24 11:06 06/17/24 11:06 06/17/24 11:06 Oxygen Delivery Method Room Air Weight: 165 lb 12.602 oz Body Mass Index (BMI) 24.5 Intake & Output: Intake and Output for Last 24 Hours 06/15/24 06/16/24 06/17/24 23:59 23:59 23:59 Intake Total 550 / 750 450 / 450 Output Total 1175 / 1175 Balance 550 / 300 -725 / -725 Lab / Micro Data 06/17/24 06:01 06/17/24 06:01 Labs: Laboratory Results - last 24 hr 06/16/24 17:16: WBC 13.9 H, RBC 5.22, Hgb 14.5, Hct 44.4, MCV 85.1, MCH 27.8, MCHC 32.7, RDW Std Deviation 49.8 H, RDW Coeff of Bhanu 16.1 H, Plt Count 387, MPV 8.7, Immature Gran % (Auto) 0.600, Neut % (Auto) 72.2 H, Lymph % (Auto) 16.2 L, [place] % (Auto) 7.3, Eos % (Auto) 3.2, Baso % (Auto) 0.5, Absolute Neuts (auto) 10.0 H, Absolute Lymphs (auto) 2.25, Nucleated RBC % 0, PT 13.9, INR 1.1, APTT 43.2 H, Sodium 140, Potassium 3.7, Chloride 108 H, Carbon Dioxide 27.0, Anion Gap 5, BUN 11, Creatinine 0.70, Estim Creat Clear Calc 108.01, Est GFR (MDRD) Af Amer 146, Est GFR (MDRD) Non-Af 121, BUN/Creatinine Ratio 15.7, Glucose 114 H, Lactic Acid 1.1, Calcium 9.4, Total Bilirubin 0.40, AST 20, ALT 19, Alkaline Phosphatase 143 H, Total Protein 7.5, Albumin 2.7 L, Globulin 4.8 H, A lbumin/Globulin Ratio 0.6 L 06/16/24 17:24: Urine Color Yellow, Urine Clarity Sl. Cloudy, Urine pH 6.5, Ur Specific [place] 1.015, Urine Protein 30 H, Urine Glucose (UA) Normal, Urine Ketones 5 H, Urine Occult Blood 150 H, Urine Nitrite Positive H, Urine Bilirubin Negative, Urine Urobilinogen Normal, Ur Leukocyte Esterase 100 H, Urine RBC 10- 25 SEEN, Urine WBC 50-100 SEEN, Ur Squamous Epith Cells 0-5 SEEN, Calcium Oxalate Crystal 2+, Urine Bacteria 1+, Hyaline Casts 0-5 SEEN, Urine Mucus 1+ 06/17/24 06:01: WBC 10.4, RBC 5.01, Hgb 13.9, Hct 42.7, MCV 85.2, MCH 27.7, MCHC 32.6, RDW Std Deviation 50.2 H, RDW Coeff of Bhanu 16.3 H, Plt Count 363, MPV 9.0, Immature Gran % (Auto) 0.700, Neut % (Auto) 59.1, Lymph % (Auto) 24.1, [place] % (Auto) 9.9, Eos % (Auto) 5.5 H, Baso % (Auto) 0.7, Absolute Neuts (auto) 6.1, Absolute Lymphs (auto) 2.50, Nucleated RBC % 0, Sodium 139, Potassium 3.5, C hloride 108 H, Carbon Dioxide 24.0, Anion Gap 6, BUN 8, Creatinine 0.57 L, Estim Creat Clear Calc 132.65, Est GFR (MDRD) Af Amer 184, Est GFR (MDRD) Non-Af 152, BUN/Creatinine Ratio 14.0, Glucose 101, Calcium 8.9, Phosphorus 3.2, Magnesium 1.8, Total Bilirubin 0.40, AST 20, ALT 17, Alkaline Phosphatase 130 H, Total Protein 6.7, Albumin 2.4 L, Globulin 4.3 H, Albumin/Globulin Ratio 0.6 L, TSH 5.010 H Micro: Microbiology 06/16/24 17:24 Urine, Clean Catch Urine Culture - Preliminary Culture exhibits no growth. Radiography Diagnostic Testing: Radiology Impression Brain CT 06/16/24 17:08 IMPRESSION: There are no acute findings. Chronic involutional changes of the brain. Electronically Signed: Geraldo Bowling MD at 18:11 EST , Chest X-Ray 06/16/24 17:30 IMPRESSION: There is a left peripherally inserted central catheter (PICC) tip in the line. Tip in the left axilla. Electronically Signed: Geraldo Bowling MD at 18:12 EST , Rhythm Strip Rhythm Strip: Sinus Rhythm Rate: 80 Ectopy: None Physical Exam Narrative Seen and examined Patient came to ED for being malaise, lethargy myalgia. He felt he is very weak. No fever. He said his did not know how to give antibiotic to Zosyn though he had home health nurse arranged Physical exam: General: Alert, Oriented x3, Cooperative. BMI 24.5 kg/m? HEENT: Atraumatic, PERRLA, EOMI, Normocephalic Oral: No Gingival or Mucosal Lesions/ Ulcerations Neck: Supple, No JVD, Negative Carotid Bruits Chest wall/Lungs: Air entry diminished in bilateral lung bases. No crepitation/rhonchi Cardiovascular: Regular rate, Regular Rhythm, Normal S1, Normal S2, No M/G/R Abdomen: Bowel Sounds Present, Soft, Non Tender, Non-Distended. Colostomy. : Suprapubic catheter. Extremities: Mild dependent edema. Capillary Refill Less than 3 Seconds Skin: Sacral decubitus. Chronic ulcer over right ischium/posterior scrotal region with fibrosis, contracture, scarring and chronic granulation tissue on the margin Musculoskeletal: Chronic right hip fracture, nonoperative management. Chronic Paraplegia with contracture. ROM not possible. Bilateral lower extremity muscle atrophy. Muscle strength possible 2/5 at knees and hip joints Neurological: Cranial nerves II-XII grossly intact, DTR 2/4. 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 1. Acute CAUTI secondary to Pseudomonas aeruginosa likely due to chronic suprapubic catheter: UA showed with microscopic hematuria, pyuria with a corresponding Leukocytosis of 13.9 K present on admission -the patient was admitted on MedSur floor. Urine culture shows no growth. 06/17: Leukocytosis resolved. On last discharge on 06/14, prescription was given by ID for Zosyn for 5 more days which is resumed. Patient has midline. Discussed with the egg caser. Might need to go to [facility] 2. Chronic Paraplegia with history of transverse myelitis; with neurogenic bladder and history of suprapubic catheter superimposed acute Generalized Weakness and Lethargy with numerous stage III-IV sacral decubiti noted on admission: He has chronic stage IV decubitus. Does not look infected. Wound nurse Jud follows the patient but she is not here today 3. Chronic history of intertrochanteric fracture due to lytic lesion in his femur: Patient was worked in [facility] and was not felt to be surgical candidate. Recommend to follow-up with [facility]. 4. History of CAD; s/p proximal LAD stent (2021) on baby aspirin and ticagrelor - Resume BASA , carvedilol, rosuvastatin, and lisinopril 5. Chronic tobacco use, cigarette smoking less than 10/day and chronic cannabis use: Tobacco Cessation strongly encouraged with Nicotine patch offered to control cravings. Patient also uses cannabis. 6 essential hypertension; on carvedilol and lisinopril - Maintain current regimen as before. 7. Hyperlipidemia; on rosuvastatin BMI: 24.5 kg/m? in normal range. DVT prophylaxis -Eliquis 2.5 mg twice daily 1. UA positive for Acute Cystitis; with microscopic hematuria due to suprapubic catheter with Leukocytosis of 13.9K present on admission after his failed to give IV Zosyn at home in the setting of recent admission here from June 11, 2024 to June 14, 2024 for treatment of Acute Cystitis; with microscopic hematuria likely due to chronic suprapubic catheter with cultures positive for Pseudomonas aeruginosa sensitive to Zosyn complicated by suspected Pneumonia and Metabolic Encephalopathy who was sent home on a 7-day course of IV Zosyn via LUE Mid-Line as recommended by ID clinical program consultant - Admit to general medical floor. Restart Zosyn 3.375 mg IV TID as per previous recommendations to prevent further clinical deterioration. Give acetaminophen prn for [id number] (level 1- 5/10) pain or fever. Give morphine IV prn for severe (level 6-10/10) pain. Finally, we will consult case management to arrange ECF for IV antibiotics since his is seemingly incapable of giving them, with help appreciated in advance. 2. Chronic Paraplegia with history of transverse myelitis; with neurogenic bladder and history of suprapubic catheter superimposed acute Generalized Weakness and Lethargy complicating #1 with numerous stage III-IV sacral decubiti noted on admission - Wound RN to see patient on-rounds in the AM with help appreciated in advance. Finally, we will consult PT/OT and Case Management on- rounds in the AM for further recommendations with help appreciated in advance. 3. History of a pop in his Right hip that occurred ~8 weeks ago while he was undergoing PT; with subsequent intertrochanteric Right hip fracture suspected to be due to lytic lesions in his femur; s/p evaluation at [facility] with patient not felt to be a surgical candidate and recommended to follow-up with the [facility] adding to the medical complexity of #1 & #2 - Noted. 4. History of CAD; s/p proximal LAD stent (2021) on baby aspirin and ticagrelor - Resume BASA and ticagrelor as previous. 5. History of tobacco abuse - Tobacco Cessation will be strongly encouraged with Nicotine patch offered to control cravings. 6. History of cannabis abuse - Cannabis Cessation will be strongly encouraged. 7. Essential hypertension; on carvedilol and lisinopril - Maintain current regimen as before. 8. Hyperlipidemia; on rosuvastatin - Resume statin as previous. 9. Overweight; with a BMI of 26.3 this admission - Weight loss will be recommended. 10. History of heavy alcohol abuse - Patient denies recent EtOH use. 11. History of X; on apixaban - Noted. Patient was restarted on the agent after his recent discharge so it will be continues as preivous. 12. History of acute paralytic poliomyelitis - Noted. 13. History of muscle spasticity; on baclofen 20 mg TID - Resume baclofen as previous. 14. History of neuropathy; on gabapentin - Maintain gabapentin at current dose and schedule. 15. History of femoral derotational osteotomy - Noted. 16. History of appendectomy - Noted. 17. History of colostomy - Noted. 18. Depression with anxiety; on venlafaxine, nortriptyline and as needed lorazepam BID - Current plan to be continued. 19. History of osteomyelitis of the Right hip - Noted. 20. DVT prophylaxis - Patient already on apixaban which will be continued. Total time: Approximately (but not less than) 75 minutes. Charges/Coding Visit Charges Inpatient E&M: 31311 Subs Hosp L2
[2024-06-17] MEDS: Potassium Chloride Oral Tablet 20 MEQ 40 MEQ PO (13:15)
--- NOTE | 2024-06-17 15:23 | CASEMGMT ---
Addendum entered by Leslee Villalpando 06/17/24 15:35: Pt has HHC through [facility], and caregiver Monday through Monday 3 hours/day. Original Note: ABISAI MENDES Chart Review: Patient was admitted 06/11/24-06/14/24 for UTI, Right Hip Pain, Lethargy and Generalized Weakness. Pt was DCd home with [facility] and ex- to assist with IV antibiotics. ABISAI MENDES into Pt room, pt states ex- had a hard time mixing the IV antibiotics and he missed his antibiotics all weekend. Pt was not a reliable historian on when previously here, when he went home and when he returned to the hospital. Had some confusion on time frames. Pt states his ex- now knows how to do the IV antibiotics and he would like to return home. ABISAI MENDES asked Pt if able to call ex- to confirm. Pt agreeable. Pt unable to inform ABISAI MENDES about how ex- is now trained and able to provide pt with care. ABISAI MENDES attempted [facility], mailbox is full. ABISAI MENDES called and spoke with Pt sister, she states she has concerns and does not feel that is a good plan. Pt sister would like to call Pt mom to discuss and see if Pt mom can have a conversation with Pt to discuss a different plan. ABISAI MENDES provided Pt sister with number to return call. CM to follow up on plan.
[2024-06-17 15:26] VITALS: BP 110/81; PULSE 86; RESP 20; TEMP 36.6; O2SAT 98
--- NOTE | 2024-06-17 15:43 | CASEMGMT ---
[facility]ana noted missed called and called RN CM back. Refusing SNF, states she is able to do IV antibiotics at home. Requested Pt stayin the the hospital a few days, explained Pt can't stay here for the sole purpose of receiving medications if medically ready to DC home. Pt ex- states she does not want Pt to go to nursing facillity, they tried that before and it was a nightmare. Would like to continue with [facility]. Pt also states would like to go home with [facility] again. Denies additional needs at this time.
[2024-06-17] MEDS: oxyCODONE 5 MG Tablet PO (20:49)
[2024-06-17] MEDS: MELATONIN 3 MG TABLET PO (21:09)
[2024-06-17] MEDS: Nortriptyline 25 MG Capsule 100 MG PO (21:10)
[2024-06-17] MEDS: Atorvastatin Calcium 40 MG Tablet PO (21:11)
[2024-06-17 21:15] VITALS: BP 126/72; PULSE 80; RESP 16; TEMP 36.8; O2SAT 100
[2024-06-18] VITALS (7 sets, daily range): BP systolic 108–149; BP diastolic 69–90; PULSE 85–101; RESP 15–18; TEMP 36.3–36.7; O2SAT 95–99; BMI 25.7
[2024-06-18] MEDS: Gabapentin 300 MG Capsule 900 MG PO ×3 (05:37→21:31)
[2024-06-18] MEDS: Piperacil/Tazobactam 3.375 GM in 0.9% Normal Saline (50mL MB+) 50 ML IV ×3 (05:37→21:33)
[2024-06-18] MEDS: Baclofen 10 MG Tablet 20 MG PO ×3 (05:38→21:31)
[2024-06-18 07:33] LABS: Magnesium 1.9 mg/dL (1.6-2.6); Phosphorus 3.7 mg/dL (2.5-4.9)
[2024-06-18] MEDS: oxyCODONE 5 MG Tablet PO ×2 (07:39→17:36)
[2024-06-18] MEDS: Aspirin E.C. 81 MG Tablet PO (08:39)
[2024-06-18] MEDS: Carvedilol 6.25 MG Tablet PO ×2 (08:39→17:37)
[2024-06-18] MEDS: Loratadine 10 MG Tablet PO (10:32)
[2024-06-18] MEDS: Cholecalciferol (VIT D3) 25 MCG TABLET (1,000 UNITS) 50 MCG PO (10:33)
[2024-06-18] MEDS: Lisinopril 2.5 MG Tablet PO (10:33)
[2024-06-18] MEDS: Ascorbic Acid 500 MG Tablet 1000 MG PO (10:33)
[2024-06-18] MEDS: Docusate Sodium 100 MG Capsule PO ×2 (10:33→21:32)
[2024-06-18] MEDS: Venlafaxine HCl 75 MG Tablet 150 MG PO (10:33)
[2024-06-18] MEDS: APIXABAN 2.5 MG TABLET (WCH) PO ×2 (10:33→21:32)
--- NOTE | 2024-06-18 10:49 | CASEMGMT ---
Social Work- SW received a call from Lobito at [facility]. Lobito reports that pt is not service connected. Pt reportedly works through [facility]. Pt has [employer] M[employer] per PA records. MAURICIO Quiñones
--- NOTE | 2024-06-18 11:04 | WOUNDNOTE ---
wound photo: sacrum/bilateral ischium
--- NOTE | 2024-06-18 11:54 | CASEMGMT ---
ABISAI MENDES into pt room, Pt lying in bed in no distress. Pt states he would like to resume caregivers and SN through [facility] at time of DC. ABISAI MENDES will contact [facility] to restart care.
[2024-06-18] MEDS: Multivitamins,Therapeutic Tablet 1 TABLET PO (14:07)
[2024-06-18] MEDS: 0.9% Saline Lock 10 ML Syringe IV (14:12)
--- NOTE | 2024-06-18 15:25 | CASEMGMT ---
ABISAI MENDES called [facility] in [place], stated did not receive [facility] hospital message. Able to restart care tomorrow afternoon so aide can restart on morning. Faxed order to [phone]. Notified patient.
--- NOTE | 2024-06-18 16:29 | PN.HOSP_ITS ---
Reason for Visit Reason for Visit: Diagnoses Pseudomonas (aeruginosa) (mallei) (pseudomallei) as the cause of diseases classified elsewhere (06/16/24) Paraplegia, unspecified (06/16/24) Pressure ulcer of sacral region, stage 3 (06/16/24) Acute cystitis with hematuria (06/16/24) Urinary tract infection, site not specified (06/16/24) Weakness (06/16/24) Other fatigue (06/16/24) Fracture of unspecified part of neck of right femur, subsequent encounter for closed fracture with nonunion (06/16/24) Tobacco use (06/16/24) Presence of coronary angioplasty implant and graft (06/16/24) Objective Data Objective Data Vital Signs: Vital Signs Temp Pulse Resp BP Pulse Ox O2 Del Method 97.9 F 85 18 141/69 H 95 Room Air 06/18/24 13:55 06/18/24 13:55 06/18/24 13:55 06/18/24 13:55 06/18/24 13:55 06/18/24 13:55 Oxygen Delivery Method Room Air Weight: 173 lb 15.115 oz Body Mass Index (BMI) 25.7 Intake & Output: Intake and Output for Last 24 Hours 06/16/24 06/17/24 06/18/24 23:59 23:59 23:59 Intake Total 550 / 750 1499.83 / 1699.83 900 / 900 Output Total 1575 / 2175 1300 / 1300 Balance 550 / 300 -75.17 / -475.17 -400 / -400 Lab / Micro Data 06/17/24 06:01 06/17/24 06:01 Labs: Laboratory Results - last 24 hr 06/18/24 06:12: Phosphorus 3.7, Magnesium 1.9 Micro: Microbiology 06/16/24 17:24 Urine, Clean Catch Urine Culture - Final GNR Poss Pseudomonas sp Yeast, not Joleen albicans Rhythm Strip Rhythm Strip: Sinus Rhythm Rate: 80 Ectopy: None Physical Exam Narrative Seen and examined Symptoms are resolved. No acute change. Patient passing hard so that he can go outside and smoke. He smokes marijuana. Physical exam: General: Alert, Oriented x3, Cooperative. BMI 24.5 kg/m? HEENT: Atraumatic, PERRLA, EOMI, Normocephalic Oral: No Gingival or Mucosal Lesions/ Ulcerations Neck: Supple, No JVD, Negative Carotid Bruits Chest wall/Lungs: Air entry diminished in bilateral lung bases. No crepitation/rhonchi Cardiovascular: Regular rate, Regular Rhythm, Normal S1, Normal S2, No M/G/R Abdomen: Bowel Sounds Present, Soft, Non Tender, Non-Distended. Colostomy. : Suprapubic catheter. Extremities: Mild dependent edema. Capillary Refill Less than 3 Seconds Skin: Sacral decubitus. Chronic ulcer over right ischium/posterior scrotal region with fibrosis, contracture, scarring and chronic granulation tissue on the margin Musculoskeletal: Chronic right hip fracture, nonoperative management. Chronic Paraplegia with contracture. ROM not possible. Bilateral lower extremity muscle atrophy. Muscle strength possible 2/5 at knees and hip joints Neurological: Cranial nerves II-XII grossly intact, DTR 2/4. 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 1. Acute CAUTI secondary to Pseudomonas aeruginosa likely due to chronic suprapubic catheter: UA showed with microscopic hematuria, pyuria with a corresponding Leukocytosis of 13.9 K present on admission -the patient was admitted on MedSur floor. Urine culture shows no growth. 06/17: Leukocytosis resolved. On last discharge on 06/14, prescription was given by ID for Zosyn for 5 more days which is resumed. Patient has midline. Discussed with the immigration case manager. Might need to go to [facility] 06/18: Patient wanted to go home so that he can he smokes cigarettes. Patient on nicotine. Patient advised that he should stay today to complete IV Zosyn and then will be discharged tomorrow. Discussed with the ID and no need to see him but has to finish IV Zosyn as prescribed. 2. Chronic Paraplegia with history of transverse myelitis; with neurogenic bladder and history of suprapubic catheter superimposed acute Generalized Weakness and Lethargy with numerous stage III-IV sacral decubiti noted on admission: He has chronic stage IV decubitus. Does not look infected. Wound nurse Jud follows the patient but she is not here today 3. Chronic history of intertrochanteric fracture due to lytic lesion in his femur: Patient was worked in [facility] and was not felt to be surgical candidate. Recommend to follow-up with [facility]. 4. History of CAD; s/p proximal LAD stent (2021) on baby aspirin and ticagrelor - Resume BASA , carvedilol, rosuvastatin, and lisinopril 5. Chronic tobacco use, cigarette smoking less than 10/day and chronic cannabis use: Tobacco Cessation strongly encouraged with Nicotine patch offered to control cravings. Patient also uses cannabis. 6 essential hypertension; on carvedilol and lisinopril - Maintain current regimen as before. 7. Hyperlipidemia; on rosuvastatin BMI: 24.5 kg/m? in normal range. DVT prophylaxis -Eliquis 2.5 mg twice daily Charges/Coding Visit Charges Inpatient E&M: 79390 Subs Hosp L2
[2024-06-18] MEDS: Atorvastatin Calcium 40 MG Tablet PO (21:31)
[2024-06-18] MEDS: Nortriptyline 25 MG Capsule 100 MG PO (21:31)
[2024-06-19] MEDS: oxyCODONE 5 MG Tablet PO (00:18)
[2024-06-19 03:50] VITALS: BP 128/88; PULSE 91; RESP 15; TEMP 36.6; O2SAT 97
[2024-06-19 05:37] VITALS: BMI 25.4
[2024-06-19] MEDS: Piperacil/Tazobactam 3.375 GM in 0.9% Normal Saline (50mL MB+) 50 ML IV ×2 (06:54→13:35)
[2024-06-19] MEDS: Baclofen 10 MG Tablet 20 MG PO ×2 (06:55→13:35)
[2024-06-19] MEDS: Gabapentin 300 MG Capsule 900 MG PO ×2 (06:58→13:34)
[2024-06-19] MEDS: Ascorbic Acid 500 MG Tablet 1000 MG PO (08:10)
[2024-06-19] MEDS: Cholecalciferol (VIT D3) 25 MCG TABLET (1,000 UNITS) 50 MCG PO (08:11)
[2024-06-19] MEDS: Loratadine 10 MG Tablet PO (08:11)
[2024-06-19] MEDS: Lisinopril 2.5 MG Tablet PO (08:11)
[2024-06-19] MEDS: Carvedilol 6.25 MG Tablet PO (08:11)
[2024-06-19] MEDS: Docusate Sodium 100 MG Capsule PO (08:11)
[2024-06-19] MEDS: Aspirin E.C. 81 MG Tablet PO (08:11)
[2024-06-19] MEDS: Venlafaxine HCl 75 MG Tablet 150 MG PO (08:12)
[2024-06-19] MEDS: APIXABAN 2.5 MG TABLET (WCH) PO (08:12)
[2024-06-19 08:15] VITALS: BP 124/86; PULSE 87; RESP 16; TEMP 37.1; O2SAT 98
--- NOTE | 2024-06-19 10:50 | DCINST_ITS ---
Discharge Instructions DC O2, CPAP, BIPAP needs Home O2 Discharge instructions: No Follow Up Care Test Results: Test results from this visit will be discussed in further detail at your follow- up appointment, if applicable. Discharge Plan Admission Admit Date/Time: 06/16/24 19:56 Primary Reason for Your Visit: Pseudomonas associated CAUTI, nonadherence Attending Provider: Darian Arceo Primary Care Provider: [facility] Consulting Providers: Ronak Quiroz Instructions Additional Instructions / Restrictions: Follow-up in wound center for sacral decubitus Discharge Orders/Prescriptions Prescriptions: Continued baclofen 20 MG tablet 20 mg PO TID Patient Comments: MUSCLE SPASMS multivitamin with folic acid [Thera] 1 TABLET tablet 1 tab PO LUNCH Patient Comments: SUPPLEMENT gabapentin 100 MG capsule 900 mg PO TID Patient Comments: NEUROPATHY nortriptyline 50 MG capsule 100 mg PO QHS ascorbic acid (vitamin C) [Vitamin C] 1,000 mg Tablet 1 g PO DAILY venlafaxine 75 mg Tablet 150 mg PO DAILY docusate sodium 100 mg Capsule 100 mg PO BID cholecalciferol (vitamin D3) [Vitamin D3] 50 mcg (2,000 unit) Capsule 50 mcg PO DAILY loratadine 10 mg Capsule 10 mg PO DAILY carvedilol 6.25 mg Tablet 6.25 mg PO BID 30 Days Qty: 60 0RF aspirin 81 mg Tablet,Delayed Release (Dr/Ec) 81 mg PO BREAKFAST 30 Days Qty: 30 0RF Eliquis 2.5 mg Tablet 2.5 mg PO BID 30 Days Qty: 60 0RF ondansetron 4 mg tablet,disintegrating 4 mg PO Q8H PRN (Reason: nausea and vomiting) Qty: 10 0RF buprenorphine 10 mcg/hour patch weekly 1 patch transdermal Q7D Patient Comments: last applied was Monday06/07/2024 rosuvastatin [Crestor] 10 mg tablet 20 mg PO DAILY lisinopril 2.5 mg tablet 2.5 mg PO DAILY Qty: 30 11RF Discontinued Zosyn in dextrose (iso-osm) 3.375 gram/50 mL piggyback 3.375 g IV Q8H 5 Days Rx Instructions: dx: pseudomonas infection. Midline care per protocol. doxycycline hyclate 100 mg capsule 100 mg PO BID Referrals / Follow Up: [facility] [Primary Care Provider] - Maulik Jenkins MD [Med Staff - Active Staff] - Within 1 Month Disposition Disposition (needs filled in before D/C Order can be placed): Home Health Service
--- NOTE | 2024-06-19 11:19 | CASEMGMT ---
Pt has an order for DC placed. [facility] who state that they can resume care tomorrow and that they already contacted the pt about this. RN CM to pt room at this time. Pt states that he feels safe with this plan and denies further needs at this time. SW notified and Care Management will work on getting transportation set up for DC today.
--- NOTE | 2024-06-19 11:45 | PCM.DC.SUM ---
Providers Date of Admission: 06/16/24 Date of Discharge: 06/19/24 Primary Care Physician: [facility] Consultations 06/17/24 02:09 Consult: Onc/Wound/educational assistant Routine Comment: Reason for Consult:: large buttock /hip wound Reason For Visit: RECURRENT UTI BCWIFE DID NOT GIVE ATB'S Diagnosis Discharge Diagnosis (1) Acute cystitis with hematuria: Status: Acute Code(s): N30.01 - Acute cystitis with hematuria (2) Pseudomonas urinary tract infection: Status: Acute Code(s): N39.0 - Urinary tract infection, site not specified; B96.5 - Pseudomonas (aeruginosa) (mallei) (pseudomallei) as the cause of diseases classified elsewhere (3) Lethargy: Status: Acute Code(s): R53.83 - Other fatigue (4) Weakness: Status: Acute Code(s): R53.1 - Weakness (5) Paraplegia: Status: Chronic Code(s): G82.20 - Paraplegia, unspecified (6) Sacral decubitus ulcer, stage III: Status: Acute Code(s): L89.153 - Pressure ulcer of sacral region, stage 3 (7) 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 1. Acute CAUTI secondary to Pseudomonas aeruginosa likely due to chronic suprapubic catheter: UA showed with microscopic hematuria, pyuria with a corresponding Leukocytosis of 13.9 K present on admission -the patient was admitted on MedSurg floor. Urine culture shows no growth. 06/17: Leukocytosis resolved. On last discharge on 06/14, prescription was given by ID for Zosyn for 5 more days which is resumed. Patient has midline. Discussed with the human services case manager. [facility] need to go to [facility] 06/18: Patient wanted to go home so that he can he smokes cigarettes. Patient on nicotine. Patient advised that he should stay today to complete IV Zosyn and then will be discharged tomorrow. Discussed with the ID and no need to see him but has to finish IV Zosyn as prescribed. 06/19: Patient is completing last day of antibiotic today and then remove the midline and can be discharged. 2. Chronic Paraplegia with history of transverse myelitis; with neurogenic bladder and history of suprapubic catheter superimposed acute Generalized Weakness and Lethargy with numerous stage III-IV sacral decubiti noted on admission: He has chronic stage IV decubitus ulcer. Does not look infected. Wound nurse Jud follows the patient but she is not here today 06/19: Follow-up in wound center for stage IV decubitus ulcer, surgeon has seen the patient and wound does not look worse. 3. Chronic history of intertrochanteric fracture due to lytic lesion in his femur: Patient was worked in [facility] and was not felt to be surgical candidate. Recommend to follow-up with [facility]. 4. History of CAD; s/p proximal LAD stent (2021) on baby aspirin and ticagrelor - Resume BASA , carvedilol, rosuvastatin, and lisinopril 5. Chronic tobacco use, cigarette smoking less than 10/day and chronic cannabis use: Tobacco Cessation strongly encouraged with Nicotine patch offered to control cravings. Patient also uses cannabis. 6 essential hypertension; on carvedilol and lisinopril - Maintain current regimen as before. 7. Hyperlipidemia; on rosuvastatin BMI: 24.5 kg/m? in normal range. DVT prophylaxis -Eliquis 2.5 mg twice daily Discharge medication reconciliation done. Discharge follow-up instructions completed. Discharge process discussed with the patient and all questions were answered to patient's satisfaction. Follow with PCP in 1 to 2 weeks Total time spent, exact 35 minutes on discharge meds reconciliation, examination, coordination of care with nurses and ancillary staff, review of imaging and blood test and discussion with the patient on follow-up instructions. Medications at Discharge Home Medications baclofen 20 mg tablet 20 mg PO TID muscle spasms 02/26/13 multivitamin with folic acid 400 mcg tablet (Thera) 1 tab PO LUNCH supplemeny 02/26/13 gabapentin 100 mg capsule 900 mg PO TID neuropathy 04/19/13 nortriptyline 50 mg capsule 100 mg PO QHS anxiety 01/19/19 ascorbic acid (vitamin C) 1,000 mg tablet (Vitamin C) 1 g PO DAILY Check with primary doctor 06/28/21 cholecalciferol (vitamin D3) 50 mcg (2,000 unit) capsule (Vitamin D3) 50 mcg PO DAILY Check with primary doctor 06/28/21 docusate sodium 100 mg capsule 100 mg PO BID Check with primary doctor 06/28/21 loratadine 10 mg capsule 10 mg PO DAILY Check with primary doctor 06/28/21 venlafaxine 75 mg tablet 150 mg PO DAILY Check with primary doctor 06/28/21 apixaban 2.5 mg tablet (Eliquis) 2.5 mg PO BID 30 days #60 tabs 06/29/21 aspirin 81 mg tablet,delayed release 81 mg PO BREAKFAST heart health 30 days #30 tabs 06/29/21 carvedilol 6.25 mg tablet 6.25 mg PO BID heart 30 days #60 tabs 06/29/21 lisinopril 2.5 mg tablet 2.5 mg PO DAILY #30 tabs 07/06/21 ondansetron 4 mg disintegrating tablet 4 mg PO Q8H PRN nausea and vomiting #10 tabs 06/06/22 buprenorphine 10 mcg/hour weekly transdermal patch 1 patch transdermal Q7D pain 06/11/24 rosuvastatin 10 mg tablet (Crestor) 20 mg PO DAILY 06/16/24 Physical Exam Narrative Seen and examined No acute symptoms. Patient will complete IV Zosyn today and then can be discharged He smokes marijuana and cigarette smoking about half pack per day. Physical exam: General: Alert, Oriented x3, Cooperative. BMI 24.5 kg/m? HEENT: Atraumatic, PERRLA, EOMI, Normocephalic Oral: No Gingival or Mucosal Lesions/ Ulcerations Neck: Supple, No JVD, Negative Carotid Bruits Chest wall/Lungs: Air entry diminished in bilateral lung bases. No crepitation/rhonchi Cardiovascular: Regular rate, Regular Rhythm, Normal S1, Normal S2, No M/G/R Abdomen: Bowel Sounds Present, Soft, Non Tender, Non-Distended. Colostomy. : Suprapubic catheter. Extremities: Mild dependent edema. Capillary Refill Less than 3 Seconds Skin: Chronic decubitus ulcer over right ischium/posterior scrotal region with fibrosis, contracture, scarring and chronic granulation tissue on the margin Musculoskeletal: Chronic right hip fracture, nonoperative management. Chronic Paraplegia with contracture. ROM not possible. Bilateral lower extremity muscle atrophy. Muscle strength possible 2/5 at knees and hip joints Neurological: Cranial nerves II-XII grossly intact, DTR 2/4. Functional quadriplegia Psych/Mental Status: Flat affect Weight / BMI Weight Weight: 172 lb 2.896 oz Body Mass Index (BMI) 25.4 ABG / Lab / Microbiology Data 06/17/24 06:01 06/17/24 06:01 Microbiology: Microbiology 06/16/24 17:16 Blood Culture (Wb) - No Site/Description Given Blood Culture - Preliminary No growth in 48 hours. 06/16/24 17:35 Blood Culture (Wb) #2 - Pic Blood Culture - Preliminary No growth in 48 hours. 06/16/24 17:24 Urine, Clean Catch Urine Culture - Final GNR Poss Pseudomonas sp Yeast, not Joleen albicans D/C Instructions DC O2, CPAP, BIPAP Needs Home O2 Discharge instructions: No Meaningful Use Info Meaningful Use Meaningful Use Diagnoses (Choose all that apply): None applicable Ischemic Stroke Statin Dosing Therapy Reference: STATIN DOSE THERAPY REFERENCE: * Patients > 75 years receive moderate or high dose statin therapy. * Patients 75 years or YOUNGER should receive HIGH intensity statin dose unless contraindicated. You will be required to document reason for non-treatment if statin daily dose does not meet guidelines. HIGH DOSE STATIN THERAPY DAILY Atorvastatin > than or = to 40 mg Rosuvastatin > than or = to 20 mg Amlodipine + Atorvastatin > than or = to 2.5/40 mg Ezetimibe + Simvastatin 10/80 mg Simvastatin 80mg Discharge Plan Admission Admit Date/Time: 06/16/24 19:56 Primary Reason for Your Visit: Pseudomonas associated CAUTI, nonadherence Attending Provider: Darian Arceo Primary Care Provider: [facility] Consulting Providers: Ronak Quiroz Instructions Additional Instructions / Restrictions: Follow-up in wound center for sacral decubitus Discharge Orders/Prescriptions Prescriptions: Continued baclofen 20 MG tablet 20 mg PO TID Patient Comments: MUSCLE SPASMS multivitamin with folic acid [Thera] 1 TABLET tablet 1 tab PO LUNCH Patient Comments: SUPPLEMENT gabapentin 100 MG capsule 900 mg PO TID Patient Comments: NEUROPATHY nortriptyline 50 MG capsule 100 mg PO QHS ascorbic acid (vitamin C) [Vitamin C] 1,000 mg Tablet 1 g PO DAILY venlafaxine 75 mg Tablet 150 mg PO DAILY docusate sodium 100 mg Capsule 100 mg PO BID cholecalciferol (vitamin D3) [Vitamin D3] 50 mcg (2,000 unit) Capsule 50 mcg PO DAILY loratadine 10 mg Capsule 10 mg PO DAILY carvedilol 6.25 mg Tablet 6.25 mg PO BID 30 Days Qty: 60 0RF aspirin 81 mg Tablet,Delayed Release (Dr/Ec) 81 mg PO BREAKFAST 30 Days Qty: 30 0RF Eliquis 2.5 mg Tablet 2.5 mg PO BID 30 Days Qty: 60 0RF ondansetron 4 mg tablet,disintegrating 4 mg PO Q8H PRN (Reason: nausea and vomiting) Qty: 10 0RF buprenorphine 10 mcg/hour patch weekly 1 patch transdermal Q7D Patient Comments: last applied was Monday06/07/2024 rosuvastatin [Crestor] 10 mg tablet 20 mg PO DAILY lisinopril 2.5 mg tablet 2.5 mg PO DAILY Qty: 30 11RF Discontinued Zosyn in dextrose (iso-osm) 3.375 gram/50 mL piggyback 3.375 g IV Q8H 5 Days Rx Instructions: dx: pseudomonas infection. Midline care per protocol. doxycycline hyclate 100 mg capsule 100 mg PO BID Referrals / Follow Up: Maulik Jenkins MD [Med Staff - Active Staff] - Within 1 [facility] [Primary Care Provider] - Disposition Disposition (needs filled in before D/C Order can be placed): Home Health Service Charges/Coding Visit Charges Inpatient E&M: 49043 Disch Hosp >30min
[2024-06-19] MEDS: Multivitamins,Therapeutic Tablet 1 TABLET PO (13:35)
[2024-06-19 15:07] VITALS: BP 138/92; PULSE 88; RESP 18; TEMP 36.8; O2SAT 98
== END 2024-06-19 15:58 | disposition home health service (06) | DRG 698 ==
LOC: ED 19:12 → MS3 20:04
PROVIDERS: Admitting Provider Internal Medicine; Emergency Provider Emergency Medicine; Visit Provider Internal Medicine
DX: T83.518A Infection and inflammatory reaction due to other urinary catheter, initial encounter (principal); R53.2 Functional quadriplegia; L89.154 Pressure ulcer of sacral region, stage 4; L89.894 Pressure ulcer of other site, stage 4; N30.01 Acute cystitis with hematuria; S72.141K Displaced intertrochanteric fracture of right femur, subsequent encounter for closed fracture with nonunion; L89.220 Pressure ulcer of left hip, unstageable; I10 Essential (primary) hypertension; F32.A Depression, unspecified; Z93.3 Colostomy status; I25.10 Atherosclerotic heart disease of native coronary artery without angina pectoris; F17.210 Nicotine dependence, cigarettes, uncomplicated; E78.5 Hyperlipidemia, unspecified; F12.90 Cannabis use, unspecified, uncomplicated; F41.9 Anxiety disorder, unspecified; M62.838 Other muscle spasm; L89.322 Pressure ulcer of left buttock, stage 2; X58.XXXA Exposure to other specified factors, initial encounter; B96.5 Pseudomonas (aeruginosa) (mallei) (pseudomallei) as the cause of diseases classified elsewhere; E66.3 Overweight; Z68.26 Body mass index [BMI] 26.0-26.9, adult; Z74.01 Bed confinement status; Z91.A48 Caregiver's other noncompliance with patient's medication regimen for other reason; Z95.5 Presence of coronary angioplasty implant and graft; Z79.01 Long term (current) use of anticoagulants; Z79.02 Long term (current) use of antithrombotics/antiplatelets; Z79.82 Long term (current) use of aspirin; Z79.899 Other long term (current) drug therapy
CPT/HCPCS: 36415; 36592; 70450; 71045; 80053; 81001; 83605; 83735; 84100; 84443; 85025; 85610; 85730; 87040; 87086; 87088; 93005; 94668; 97802; 99285; 99406; A4216

== ENCOUNTER 2024-07-13 02:25 | Emergency (ER) | payer OTHER, SELFPAY ==
[2024-07-13] VITALS (7 sets, daily range): BP systolic 131–199; BP diastolic 74–109; PULSE 76–91; RESP 15–22; TEMP 36.4–36.6; O2SAT 97–99; BMI 26.6
--- NOTE | 2024-07-13 02:34 | ED.RN ---
This RN attempted to complete the patient's medication reconciliation and patient denies knowing the medications that the patient takes. The patient is a poor historian.
--- NOTE | 2024-07-13 02:51 | EKG12_ITS ---
Test Reason : CP Blood Pressure : */* mmHG Vent. Rate : 89 BPM Atrial Rate : 89 BPM P-R Int : 142 ms QRS Dur : 96 ms QT Int : 390 ms P-R-T Axes : 46 71 49 degrees QTcB Int : 474 ms Normal sinus rhythm Normal ECG Confirmed by NOEMI MARR, ALAN ([id number]), editorial director AURORA FOURNIER ([id number]) on 07/15/2024 8:18:29 AM Referred By: IAN Confirmed By: ALAN FRANKLIN MD
[2024-07-13 02:58] LABS: Absolute Lymphocyte Count 3.25 X10^3/uL (0.83-4.51); Absolute Neutrophil Count 9.2 X10^3/uL (2.0-7.7); Basophil# 0.07 X10^3/uL; Basophil% 0.5 % (0-1); Eosinophil# 0.45 X10^3/uL; Eosinophils% 3.1 % (0-5); Hematocrit 43.8 % (40-54); Hemoglobin 14.2 g/dL (13.0-16.5); Lymphocyte # 3.25 X10^3/ul (0.83-4.51); Lymphocyte % 22.6 % (19-41); Mean Corp Hgb Conc 32.4 g/dL (32-36); Mean Corpuscular Hgb 26.8 pg (27.0-32.0); Mean Corpuscular Volume 82.6 fL (80-94); Mean Platelet Vol. 8.6 fl (6.2-12.0); Monocyte# 1.37 X10^3/uL; Monocyte% 9.5 % (0-10); NRBC Flagged by Analyzer 0 % (0-5); Neutrophil % 63.9 % (47-70); Platelet Count 477 K/mm3 (150-450); RBC Distribution Width CV 15.9 % (11.6-14.6); RBC Distribution Width SD 47.9 fl (35.1-43.9); White Blood Count 14.4 K/mm3 (4.4-11.0)
--- NOTE | 2024-07-13 03:00 | RAD_ITS ---
PROCEDURE: Portable upright chest radiograph, one view REASON FOR EXAM: Chest pain TECHNIQUE: A single AP view of the chest was obtained. COMPARISON: Chest CT 06/11/2024 and chest radiograph 06/11/2024. FINDINGS: The cardiomediastinal silhouette is similar. Monitoring leads overlie the chest. Bones are osteopenic, grossly intact. No pneumothorax, pulmonary vascular congestion, or sizable pleural effusion. Coarse interstitial markings projecting over the right upper lobe on the prior chest radiograph are less conspicuous. There is a vague streaky density or nodule projecting over the lateral right upper lobe, which may correspond to a 9 mm nodule in the lateral superior segment right lower lobe on the comparison chest CT. The lungs appear emphysematous. RAD/Chest 1 View (Portable) IMPRESSION: The lungs appear emphysematous. Less conspicuous coarse interstitial markings in the right upper lobe compared to the prior study of 06/12/2024, which may represent improved interstitial pneumonia. Ther e is no large focal airspace consolidation or pleural effusion demonstrated. Vague nodular density projecting over the lateral right upper lobe, which may c orrespond to a 9 mm nodule in the lateral superior segment right lower lobe on the comparison chest CT. No older comparison studi es are available. Recommend a follow-up chest CT in 6 months to document stability. PET scan may also be considered to evaluate for metabolic activity. Reading Location[facility]
[2024-07-13 03:42] LABS: AST(SGOT) 25 U/L (15-37); Alanine Aminotransfer ALT/SGPT 24 U/L (16-61); Albumin, Serum 2.5 g/dL (3.2-5.0); Alkaline Phosphatase 124 U/L (45-117); Anion Gap 6 (5-15); BUN 11 mg/dL (7-18); BUN/Creat Ratio 17.5 RATIO (10-20); Bilirubin, Direct 0.15 mg/dL (0.00-0.30); Calcium,Total 9.4 mg/dL (8.5-10.1); Chloride 104 mmol/L (98-107); Creatinine, Serum 0.63 mg/dL (0.70-1.30); EST Glomerular Filtration Rate 137 mL/min (>60); Est Glom Filt Rate - Afr Amer 166 mL/min (>60); Estimated Creatinine Clearance 120.02 ml/min; Globulin 5.7 g/dL (2.2-4.2); Glucose 122 mg/dL (74-106); Lipase 17 U/L (73-393); Potassium 3.6 mmol/L (3.5-5.1); Protein, Total 8.2 g/dL (6.4-8.2); Sodium Level 137 mmol/L (136-145); Troponin-I HS 7 pg/mL (3.0-78.0)
[2024-07-13 04:20] LABS: D-Dimer Quantitative (DVT/PE) 0.88 FEU/ug/m (0.27-0.49)
--- NOTE | 2024-07-13 04:21 | CT_ITS ---
PROCEDURE: CT angiogram of the chest with IV contrast. REASON FOR EXAM: Chest pain and elevated D-dimer. TECHNIQUE: After IV contrast administration, contiguous axial CT images were obtained through the chest. Sagittal and coronal reformats were created. Maximum intensity projection images were created and reviewed. COMPARISON: Noncontrast CT chest 06/11/2024 FINDINGS: Bones are osteopenic with degenerative changes of the spine. There is mild rightward convex curvature of the midthoracic spine included upper abdominal structures grossly unremarkable, although evaluation is limited due to streak artifact from the patient's arms. Heart is not enlarged. No sizable pericardial effusion. Thoracic aorta normal in caliber, without evidence of dissection or aneurysm. Origins of the arch vessels are patent. Moderate coronary artery calcifications are present. Included thyroid unremarkable. No thoracic adenopathy. No pulmonary arterial filling defect. Minimal secretions in the proximal left mainstem bronchus. Central airways otherwise clear. Lungs are emphysematous without pneumothorax. Similar to minimally worsened consolidation posterior left lower lobe. Some thickening along the lateral margin of the left major fissure on image 135 axial images not significantly changed. A few tiny nodules in the left upper lobe, the largest at 6 mm, not significantly different. Similar 8 mm juxtapleural nodule posterior right upper lobe image 211 of the axial images. A few nodules in the lateral right lower lobe on axial images 147-151, measuring up to 1 cm, grossly unchanged. Other smaller nodules in the right lung are not significantly different. No thoracic adenopathy. CT/CTA Chest W/WO Contrast IMPRESSION: No definite acute findings in the chest. No pulmonary embolism or thoracic aor tic dissection. Moderate pulmonary emphysema. Similar to slightly worsened left lower lobe con solidation/pneumonia. Recommend continued CT follow-up to document resolution. Grossly unchanged bilateral pulmonary nodules, the largest in the right lower l obe at 1 cm. No thoracic adenopathy. Recommend follow-up chest CT in 3-6 months to document stability. Moderate coronary artery calcifications. One or more dose reduction techniques were used (e.g., Automated exposure contr ol, adjustment of the mA and/or kV according to patient size, use of iterative reconstruction technique). Reading Location: [facility]
[2024-07-13 05:47] LABS: Troponin-I HS 6 pg/mL (3.0-78.0)
--- NOTE | 2024-07-13 05:55 | EDS_ITS ---
HPI History of Present Illness Chief Complaint: Chest Pain Informant: patient and EMS Narrative Narrative: Patient is a 64-year-old male with past medical history of hypertension paraplegia anxiety and depression. He reports that over the last 2 days he has been experiencing lower midsternal chest discomfort. He states that it has been more intermittent and states that when the discomfort comes on he does seem to have bouts of sweating. He denies any fevers or chills or cough or sick symptoms. He denies any abdominal discomfort. He states he is concerned this could be cardiovascular in nature based on his diaphoresis and recurrent chest symptoms and therefore comes in for evaluation [facility] Medical History Sacral decubitus ulcer, stage III Atherosclerotic heart disease of [place] coronary artery without angina pectoris Depression Chronic indwelling L[place] catheter Heavy alcohol use Anxiety and depression Acute paralytic poliomyelitis, wild virus, indigenous Osteomyelitis of right femur Transverse myelitis Neurogenic bladder Benign essential hypertension Home Medications ?Medication ?Instructions ?Recorded ?Last Taken ?Type baclofen 20 mg tablet 20 mg PO TID muscle spasms 1 06/27/21 History multivitamin with folic acid 400 1 tab PO LUNCH supple sia 02/26/13 06/27/21 History mcg tablet (Thera) gabapentin 100 mg capsule 900 mg PO TID neuropathy 06/27/21 History nortriptyline 50 mg capsule 100 mg PO QHS anxiety 08/09/1406/26/21 History ascorbic acid (vitamin C) 1,000 mg 1 g PO DAILY Check with primary 06/28/21 Unknown History tablet (Vitamin C) doctor cholecalciferol (vitamin D3) 50 50 mcg PO DAILY Check with primary 06/28/21 Unknown History mcg (2,000 unit) capsule (Vitamin doctor D3) docusate sodium 100 mg capsule 100 mg PO BID Check wit h primary 06/28/21 Unknown History doctor loratadine 10 mg capsule 10 mg PO DAILY Check with pr imary 06/28/21 Unknown History doctor venlafaxine 75 mg tablet 150 mg PO DAILY Check with p rimary 06/28/21 Unknown History doctor apixaban 2.5 mg tablet (Eliquis) 2.5 mg PO BID 30 days #60 tabs 06/29/21 Unknown Rx aspirin 81 mg tablet,delayed 81 mg PO BREAKFAST heart [employer] 06/29/21 Unknown Rx release days #30 tabs carvedilol 6.25 mg tablet 6.25 mg PO BID heart 30 days #60 06/29/21 Unknown Rx tabs lisinopril 2.5 mg tablet 2.5 mg PO DAILY #30 tabs 01/17 Unknown Rx ondansetron 4 mg disintegrating 4 mg PO Q8H PRN nausea and 06/06/22 Unknown Rx tablet vomiting #10 tabs buprenorphine 10 mcg/hour weekly 1 patch transdermal Q 7D pain 06/11/24 06/14/24 History transdermal patch rosuvastatin 10 mg tablet (Crestor) 20 mg PO DAILY Unknown History azithromycin 250 mg tablet See Rx Instructions PO .COM PLEX #6 07/13/24 Unknown Rx (Zithromax Z-Elio) tabs doxycycline monohydrate 100 mg 100 mg PO BID 10 days # 20 CAPSULES 07/13/24 Unknown Rx capsule Allergy/AdvReac Type Severity Reaction Status Date / Time No Known Allergies Allergy Verified 07/13/24 02:28 Family History Father CVA (cerebral vascular accident) Heart disease Myocardial infarction Surgical History History of coronary artery stent placement (06/28/21) History of femoral derotational osteotomy History of appendectomy History of suprapubic catheter Hx of colostomy Colostomy in place Social History household members: spouse Smoking Status: Light Smoker (<10/day) alcohol intake: former substance use type: marijuana ROS ROS ED Constitutional Constitutional ED: Reports sweats; Denies chills or fever(s) Eyes Eyes: Denies change in vision ENT ENT ED: Denies rhinorrhea or sore throat Cardiovascular Cardiovascular: Reports chest pain; Denies palpitations or racing heartbeat Respiratory/Chest Respiratory/Chest: Denies cough or dyspnea Gastrointestinal Gastrointestinal: Denies abdominal pain, diarrhea, nausea or vomiting Integumentary Denies rash Neurologic Neurologic: Denies headache(s) Hematologic/Lymphatic Hematologic/Lymphatic: Reports easy bleeding and easy bruising EXAM Physical Exam Const Vital Signs: 07/13/24 02:28 07/13/24 02:32 07/13/24 03:28 Temperature 97.6 F L Temperature Source Oral Pulse Rate 91 80 Respiratory Rate 18 18 Respiratory Effort Normal Non-Labored Respiratory Pattern Normal Blood Pressure 131/85 H 154/93 H Blood Pressure Mean 100 113 Pulse Ox 97 97 Oxygen Delivery Method Room Air Room Air 07/13/24 04:00 07/13/24 05:00 07/13/24 06:14 Temperature 97.6 F L Temperature Source Oral Pulse Rate 86 76 80 Respiratory Rate 15 18 22 H Respiratory Effort Respiratory Pattern Blood Pressure 154/74 H 172/98 H 199/109 H Blood Pressure Mean 100 122 139 Pulse Ox 97 98 98 Oxygen Delivery Method Room Air Room Air Room Air 07/13/24 06:40 Temperature 97.8 F Temperature Source Pulse Rate 80 Respiratory Rate 18 Respiratory Effort Respiratory Pattern Blood Pressure 199/109 H Blood Pressure Mean 139 Pulse Ox 98 Oxygen Delivery Method Positive well nourished and well developed General Appearance ED: well developed; Negative for pallor HEENT HEENT Narrative: Normocephalic atraumatic Eyes PERRL and EOMs intact bilaterally General Eye ED: Negative for scleral icterus Neck supple and no JVD Neck Narrative: No nuchal rigidity or meningeal signs Chest Wall palpation of chest normal Chest Narrative: No bony deformity crepitance or subcutaneous emphysema noted No reproducible pain with palpation of the chest wall Resp normal respiratory effort and clear to auscultation bilaterally Resp Narrative: Breath sounds are diminished throughout but overall clear to auscultation Cardio regular rate and regular rhythm Rate: other Other Details: Heart is regular rate and rhythm Radial and carotid pulses are equal and symmetric GI normal to inspection, nondistended, normoactive bowel sounds, non-tender, non- distended and no masses GI Narrative: No voluntary guarding or rigidity or pulsatile mass Auscultation: normoactive bowel sounds Palpation: soft Extremity Extremity Narrative: Bilateral upper extremities are normal Patient has chronic soft tissue swelling and lack of motion of the lower extremities secondary to paraplegia Neuro oriented x3 and CN's II-XII intact bilaterally Sensorium / Orientation: alert Psych mental status grossly normal Skin no rashes or lesions noted General Skin Exam: Negative for jaundice or pallor MDM MDM MDM Narrative Medical decision making narrative: Patient arrived to the ER complaining of intermittent chest discomfort. Differential diagnosis is for acute coronary syndrome versus cardiac dysrhythmia versus PE versus dissection versus pneumonia or pneumothorax. Secondary to this basic blood work with a D-dimer as well as EKG were obtained. EKG shows sinus rhythm without ischemic change or cardiac dysrhythmia. Initial troponin was seven 2-hour delta was 6 going against any active cardiac event. The initial chest x-ray question potential developing pneumonia and patient's white count has elevated to 14.4. The patient is D-dimer was also elevated and with potential this could be due to a pulmonary embolus as he is immobile or even dissection as a history of hypertension a CTA of the chest was obtained. This revealed no PE or dissection but did show changes consistent with persistent or slightly worsened pneumonia. The patient does have a white count with mild left shift but otherwise he is not febrile hypotensive tachycardic or hypoxic and therefore I do not feel there is need for admission. He will be placed back on antibiotics but as his workup today is not showing signs of cardiac dysrhythmia acute coronary syndrome PE or dissection and he does not have hypoxia or respiratory distress I do not feel there is need for admission and he can be discharged home and follow-up with his family doctor for further care History & Record Review Discussion w/independent historian: EMS personnel and Patient Lab Data Attestation: I reviewed the patient's lab results. Labs: Laboratory Results - last 24 hr 07/13/24 07/13/24 02:42 05:02 WBC 14.4 H RBC 5.30 Hgb 14.2 Hct 43.8 MCV 82.6 MCH 26.8 L MCHC 32.4 RDW Std Deviation 47.9 H RDW Coeff of Bhanu 15.9 H Plt Count 477 H MPV 8.6 Immature Gran % (Auto) 0.400 Neut % (Auto) 63.9 Lymph % (Auto) 22.6 [place] % (Auto) 9.5 Eos % (Auto) 3.1 Baso % (Auto) 0.5 Absolute Neuts (auto) 9.2 H Absolute Lymphs (auto) 3.25 Nucleated RBC % 0 D-Dimer Quant (PE/DVT) 0.88 H* Sodium 137 Potassium 3.6 Chloride 104 Carbon Dioxide 27.0 Anion Gap 6 BUN 11 Creatinine 0.63 L Estim Creat Clear Calc 120.02 Est GFR (MDRD) Af Amer 166 Est GFR (MDRD) Non-Af 137 BUN/Creatinine Ratio 17.5 Glucose 122 H Calcium 9.4 Total Bilirubin 0.30 Direct Bilirubin 0.15 AST 25 ALT 24 Alkaline Phosphatase 124 H Troponin I High Sens 7 6 Total Protein 8.2 Albumin 2.5 L Globulin 5.7 H Lipase 17 L Radiography Diagnostic Testing: Clinical Impression(s) from Imaging Studies Chest X-Ray 07/13/24 03:00 IMPRESSION: The lungs appear emphysematous. Less conspicuous coarse interstitial markings in the right upper lobe compared to the prior study of 06/12/2024, which may represent improved interstitial pneumonia. There is no large focal airspace consolidation or pleural effusion demonstrated. Vague nodular density projecting over the lateral right upper lobe, which may correspond to a 9 mm nodule in the lateral superior segment right lower lobe on the comparison chest CT. No older comparison studies are available. Recommend a follow-up chest CT in 6 months to document stability. PET scan may also be considered to evaluate for metabolic activity. Reading Location: [facility] Chest CTA 07/13/24 04:21 IMPRESSION: No definite acute findings in the chest. No pulmonary embolism or thoracic aortic dissection. Moderate pulmonary emphysema. Similar to slightly worsened left lower lobe consolidation/pneumonia. Recommend continued CT follow-up to document resolution. Grossly unchanged bilateral pulmonary nodules, the largest in the right lower lobe at 1 cm. No thoracic adenopathy. Recommend follow-up chest CT in 3-6 months to document stability. Moderate coronary artery calcifications. One or more dose reduction techniques were used (e.g., Automated exposure control, adjustment of the mA and/or kV according to patient size, use of iterative reconstruction technique). Reading Location: [facility] Chest x-ray as interpreted by the emergency medicine physician reveals emphysematous changes with coarse interstitial lung markings without acute infiltrate pneumothorax or pleural effusion Discharge Plan Triage Chief Complaint: Chest Pain ED Provider: Richie Borden Dx/Rx/DC Orders Clinical Impression: Left lower lobe pneumonia, Paraplegia, Hypertension Instructions: ED Pneumonia (Adult) Prescriptions: New doxycycline monohydrate 100 mg capsule 100 mg PO BID 10 Days Qty: 20 0RF azithromycin [Zithromax Z-Elio] 250 mg tablet See Rx Instructions .ROUTE .COMPLEX Qty: 6 0RF Rx Instructions: For 250 mg dose pack: take 500 mg today (day 1), then 250 mg for 4 days (days 2-5) No Action baclofen 20 MG tablet 20 mg PO TID Patient Comments: MUSCLE SPASMS multivitamin with folic acid [Thera] 1 TABLET tablet 1 tab PO LUNCH Patient Comments: SUPPLEMENT gabapentin 100 MG capsule 900 mg PO TID Patient Comments: NEUROPATHY nortriptyline 50 MG capsule 100 mg PO QHS ascorbic acid (vitamin C) [Vitamin C] 1,000 mg Tablet 1 g PO DAILY venlafaxine 75 mg Tablet 150 mg PO DAILY docusate sodium 100 mg Capsule 100 mg PO BID cholecalciferol (vitamin D3) [Vitamin D3] 50 mcg (2,000 unit) Capsule 50 mcg PO DAILY loratadine 10 mg Capsule 10 mg PO DAILY carvedilol 6.25 mg Tablet 6.25 mg PO BID 30 Days Qty: 60 0RF aspirin 81 mg Tablet,Delayed Release (Dr/Ec) 81 mg PO BREAKFAST 30 Days Qty: 30 0RF Eliquis 2.5 mg Tablet 2.5 mg PO BID 30 Days Qty: 60 0RF ondansetron 4 mg tablet,disintegrating 4 mg PO Q8H PRN (Reason: nausea and vomiting) Qty: 10 0RF buprenorphine 10 mcg/hour patch weekly 1 patch transdermal Q7D Patient Comments: last applied was Monday06/07/2024 rosuvastatin [Crestor] 10 mg tablet 20 mg PO DAILY lisinopril 2.5 mg tablet 2.5 mg PO DAILY Qty: 30 11RF [facility] [Primary Care Provider] - Activity Restrictions/Additional Instructions: Your workup today showed no signs of an abnormal heart rhythm or active heart damage. It did display persistent left lower lobe pneumonia which could be the cause of your chest discomfort. Please take both the doxycycline and Zithromax as directed to resolve the infection. Follow-up with your family doctor for repeat evaluation and discuss obtaining a repeat image in approximately 3 weeks to document resolution Print Language: Khmer Disposition Disposition: Home, Self Care
[2024-07-13] MEDS: Doxycycline 100 MG in 0.9% Normal Saline (250mL Bag) 250 ML 250 MG IV (06:09)
[2024-07-13] MEDS: Lisinopril 2.5 MG Tablet PO (06:24)
[2024-07-13] MEDS: Ondansetron 4 MG/2 ML Vial IV (06:24)
[2024-07-13] MEDS: Carvedilol 6.25 MG Tablet PO (06:24)
--- NOTE | 2024-07-13 07:42 | ED.RN ---
AMBULANCE PRESENT TO TAKE PT HOME CALLED EX TO LET HER KNOW PT IS ON WAY.
== END 2024-07-13 07:43 | disposition home or self-care (01) ==
PROVIDERS: Emergency Provider Emergency Medicine; Visit Provider Emergency Medicine
DX: J18.9 Pneumonia, unspecified organism (principal); G82.20 Paraplegia, unspecified; I10 Essential (primary) hypertension; I25.10 Atherosclerotic heart disease of native coronary artery without angina pectoris; F17.200 Nicotine dependence, unspecified, uncomplicated; Z95.5 Presence of coronary angioplasty implant and graft; Z79.82 Long term (current) use of aspirin; Z79.899 Other long term (current) drug therapy
CPT/HCPCS: 71045; 71275; 80048; 80076; 83690; 84484; 85025; 85379; 87631; 93005; 96365; 96375; 99285; Q9967; A4216; J2405

== ENCOUNTER 2024-07-14 07:05 | Emergency (ER) | payer MEDICARE, SELFPAY ==
[2024-07-14 07:06] VITALS: BP 190/100; PULSE 87; RESP 16; TEMP 36.3; O2SAT 97; BMI 28.3
[2024-07-14 07:09] VITALS: BP 190/100; PULSE 88; RESP 16; TEMP 36.3; O2SAT 97
--- NOTE | 2024-07-14 07:26 | RAD_ITS ---
PROCEDURE: CHEST 1 VIEW (PORTABLE) REASON FOR EXAM: 64-year-old male, recent pneumonia diagnosis. TECHNIQUE: Frontal view of the chest. COMPARISON: Chest radiograph and CTA chest 07/13/2024, FINDINGS: The heart size is normal. Stable findings of emphysema and bibasilar atelectasis. The small left lower lobe consolidation seen on recent CTA is obscured by the cardiac shadow. No pleural effusion or pneumothorax. Degenerative changes are identified within the thoracic spine. Mild rightward curvature of the midthoracic spine. RAD/Chest 1 View (Portable) IMPRESSION: 1. The small left lower lobe consolidation seen on recent CTA is obscured by th e cardiac shadow. 2. No pleural effusion or pneumothorax. Reading Location: [id number]
--- NOTE | 2024-07-14 07:27 | EDS_ITS ---
HPI History of Present Illness Chief Complaint: Other, Pain/Inj Informant: patient, spouse/S.O. and EMS Narrative Narrative: 64-year-old male presenting to the emergency department via EMS with the chief complaint of I cannot sleep. Patient's significant other are not very good historians using very vague information. He tells me he is paralyzed. He does not know why. Significant other does not know why. From what I can see in the chart he has a history of transverse myelitis he was seen in the emergency department yesterday and was diagnosed with pneumonia. He was placed on azithromycin. His states that he was also prescribed another medicine but cannot recall the name of it (per chart it was doxycyline). Patient states that he feels poorly. Is difficult for him to describe this. He notes some dry heaves. Significant other notes darker urine in the suprapubic catheter. He has a colostomy. He does not know if he has had a fever. He does not wear home oxygen. He has not had any of his morning medications. He states he does not have a history of hypertension (noted to be hypertensive on triage). Per the chart he has a history of hypertension and takes lisinopril and carvedilol. He is unsure why he cannot sleep. He states he is not coughing that much. He has not taken anything for sleep. He states he sees the [facility] for primary care. Yesterday he tested negative for COVID influenza RSV. Pneumonia was noted on CT scanning to be retrocardiac. [facility] Medical History Sacral decubitus ulcer, stage III Atherosclerotic heart disease of [place] coronary artery without angina pectoris Depression Chronic indwelling [place] catheter Heavy alcohol use Anxiety and depression Acute paralytic poliomyelitis, wild virus, indigenous Osteomyelitis of right femur Transverse myelitis Neurogenic bladder Benign essential hypertension Home Medications ?Medication ?Instructions ?Recorded ?Last Taken ?Type baclofen 20 mg tablet 20 mg PO TID muscle spasms 1 06/27/21 History multivitamin with folic acid 400 1 tab PO LUNCH supple sia 02/26/13 06/27/21 History mcg tablet (Thera) gabapentin 100 mg capsule 900 mg PO TID neuropathy 06/27/21 History nortriptyline 50 mg capsule 100 mg PO QHS anxiety 08/09/1406/26/21 History ascorbic acid (vitamin C) 1,000 mg 1 g PO DAILY Check with primary 06/28/21 Unknown History tablet (Vitamin C) doctor cholecalciferol (vitamin D3) 50 50 mcg PO DAILY Check with primary 06/28/21 Unknown History mcg (2,000 unit) capsule (Vitamin doctor D3) docusate sodium 100 mg capsule 100 mg PO BID Check wit h primary 06/28/21 Unknown History doctor loratadine 10 mg capsule 10 mg PO DAILY Check with pr imary 06/28/21 Unknown History doctor venlafaxine 75 mg tablet 150 mg PO DAILY Check with p rimary 06/28/21 Unknown History doctor apixaban 2.5 mg tablet (Eliquis) 2.5 mg PO BID 30 days #60 tabs 06/29/21 Unknown Rx aspirin 81 mg tablet,delayed 81 mg PO BREAKFAST heart health 30 06/29/21 Unknown Rx release days #30 tabs carvedilol 6.25 mg tablet 6.25 mg PO BID heart 30 days #60 06/29/21 Unknown Rx tabs lisinopril 2.5 mg tablet 2.5 mg PO DAILY #30 tabs 01/17 Unknown Rx ondansetron 4 mg disintegrating 4 mg PO Q8H PRN nausea and 06/06/22 Unknown Rx tablet vomiting #10 tabs buprenorphine 10 mcg/hour weekly 1 patch transdermal Q 7D pain 06/11/24 06/14/24 History transdermal patch rosuvastatin 10 mg tablet (Crestor) 20 mg PO DAILY Unknown History azithromycin 250 mg tablet See Rx Instructions PO .COM PLEX #6 07/13/24 Unknown Rx (Zithromax Z-Elio) tabs doxycycline monohydrate 100 mg 100 mg PO BID 10 days # 20 CAPSULES 07/13/24 Unknown Rx capsule lorazepam 1 mg tablet 1 mg PO TID PRN insomnia #10 07/14/24 Unknown Rx TABLETS ondansetron 4 mg disintegrating 4 mg PO Q6H PRN PRN Na usea #15 tabs 07/14/24 Unknown Rx tablet
--- NOTE | 2024-07-14 07:27 | EX.ED.DYSGE1 ---
HPI History of Present Illness Chief Complaint: Other, Pain/Inj Informant: patient, spouse/S.O. and EMS Narrative Narrative: 64-year-old male presenting to the emergency department via EMS with the chief complaint of I cannot sleep. Patient's significant other are not very good historians using very vague information. He tells me he is paralyzed. He does not know why. Significant other does not know why. From what I can see in the chart he has a history of transverse myelitis he was seen in the emergency department yesterday and was diagnosed with pneumonia. He was placed on azithromycin. His states that he was also prescribed another medicine but cannot recall the name of it (per chart it was doxycyline). Patient states that he feels poorly. Is difficult for him to describe this. He notes some dry heaves. Significant other notes darker urine in the suprapubic catheter. He has a colostomy. He does not know if he has had a fever. He does not wear home oxygen. He has not had any of his morning medications. He states he does not have a history of hypertension (noted to be hypertensive on triage). Per the chart he has a history of hypertension and takes lisinopril and carvedilol. He is unsure why he cannot sleep. He states he is not coughing that much. He has not taken anything for sleep. He states he sees the [facility] for primary care. Yesterday he tested negative for COVID influenza RSV. Pneumonia was noted on CT scanning to be retrocardiac. [facility] Medical History Sacral decubitus ulcer, stage III Atherosclerotic heart disease of crow coronary artery without angina pectoris Depression Chronic indwelling [place] catheter Heavy alcohol use Anxiety and depression Acute paralytic poliomyelitis, wild virus, indigenous Osteomyelitis of right femur Transverse myelitis Neurogenic bladder Benign essential hypertension Home Medications ?Medication ?Instructions ?Recorded ?Last Taken ?Type baclofen 20 mg tablet 20 mg PO TID muscle spasms 02/26/13 06/27/21 History multivitamin with folic acid 400 1 tab PO LUNCH supplemeny 02/26/13 06/27/21 History mcg tablet (Thera) gabapentin 100 mg capsule 900 mg PO TID neuropathy 04/19/13 06/27/21 History nortriptyline 50 mg capsule 100 mg PO QHS anxiety 01/19/19 06/26/21 History ascorbic acid (vitamin C) 1,000 mg 1 g PO DAILY Check with primary 06/28/21 Unknown History tablet (Vitamin C) doctor cholecalciferol (vitamin D3) 50 50 mcg PO DAILY Check with primary 06/28/21 Unknown History mcg (2,000 unit) capsule (Vitamin doctor D3) docusate sodium 100 mg capsule 100 mg PO BID Check with primary 06/28/21 Unknown History doctor loratadine 10 mg capsule 10 mg PO DAILY Check with primary 06/28/21 Unknown History doctor venlafaxine 75 mg tablet 150 mg PO DAILY Check with primary 06/28/21 Unknown History doctor apixaban 2.5 mg tablet (Eliquis) 2.5 mg PO BID 30 days #60 tabs 06/29/21 Unknown Rx aspirin 81 mg tablet,delayed 81 mg PO BREAKFAST heart health 30 06/29/21 Unknown Rx release days #30 tabs carvedilol 6.25 mg tablet 6.25 mg PO BID heart 30 days #60 06/29/21 Unknown Rx tabs lisinopril 2.5 mg tablet 2.5 mg PO DAILY #30 tabs 07/06/21 Unknown Rx ondansetron 4 mg disintegrating 4 mg PO Q8H PRN nausea and 06/06/22 Unknown Rx tablet vomiting #10 tabs buprenorphine 10 mcg/hour weekly 1 patch transdermal Q7D pain 06/11/24 06/14/24 History transdermal patch rosuvastatin 10 mg tablet (Crestor) 20 mg PO DAILY 06/16/24 Unknown History azithromycin 250 mg tablet See Rx Instructions PO .COMPLEX #6 07/13/24 Unknown Rx (Zithromax Z-Elio) tabs doxycycline monohydrate 100 mg 100 mg PO BID 10 days #20 CAPSULES 07/13/24 Unknown Rx capsule lorazepam 1 mg tablet 1 mg PO TID PRN insomnia #10 07/14/24 Unknown Rx TABLETS ondansetron 4 mg disintegrating 4 mg PO Q6H PRN PRN Nausea #15 tabs 07/14/24 Unknown Rx tablet Allergy/AdvReac Type Severity Reaction Status Date / Time No Known Allergies Allergy Verified 07/14/24 07:10 Family History Father CVA (cerebral vascular accident) Heart disease Myocardial infarction Surgical History History of coronary artery stent placement (06/28/21) History of femoral derotational osteotomy History of appendectomy History of suprapubic catheter Hx of colostomy Colostomy in place Social History household members: spouse Smoking Status: Light Smoker (<10/day) alcohol intake: former substance use type: marijuana ROS ROS ED ROS Narrative Insomnia Constitutional Constitutional ED: Denies chills, fever(s) or weight loss Eyes Eyes: Denies change in vision or diplopia ENT ENT ED: Denies ear pain, rhinorrhea or sore throat Cardiovascular Cardiovascular: Denies chest pain, orthopnea, palpitations or racing heartbeat Respiratory/Chest Respiratory/Chest: Reports cough; Denies dyspnea or orthopnea Gastrointestinal Gastrointestinal: Reports nausea; Denies abdominal pain, diarrhea or vomiting Genitourinary Genitourinary ED: Reports other Details: Dark urine ; Denies dysuria, hematuria or urinary frequency Musculoskeletal Musculoskeletal: Denies arthralgias or myalgias Integumentary Denies abscess or rash Neurologic Neurologic: Denies headache(s) or weakness Psychiatric Psychiatric: Denies anxiety, depression, suicidal ideation or suicidal thoughts Endocrine Endocrinology: Denies polydipsia, polyphagia or polyuria Allergic/Immunologic Allergic/Immunologic ED: Denies mouth swelling, tongue swelling or urticaria EXAM Physical Exam Const Vital Signs: 07/14/24 07:06 07/14/24 07:09 07/14/24 07:12 Temperature 97.4 F L 97.4 F L Temperature Source Oral Oral Pulse Rate 87 88 Respiratory Rate 16 16 Respiratory Effort Normal Non-Labored Respiratory Pattern Normal Blood Pressure 190/100 H 190/100 H Blood Pressure Mean 130 130 Pulse Ox 97 97 Oxygen Delivery Method Room Air Room Air Positive well nourished and well developed General Appearance ED: well developed HEENT Reports normocephalic, head/scalp atraumatic and moist mucous membranes Eyes PERRL and EOMs intact bilaterally Neck no lymphadenopathy, supple and no JVD Resp normal respiratory effort and clear to auscultation bilaterally Cardio regular rate, regular rhythm and no murmurs GI normal to inspection, nondistended, normoactive bowel sounds and non-tender Palpation: soft Back/Spine no CVA tenderness and normal ROM Extremity Extremity Narrative: Chronic changes of the lower extremity consistent with paraplegia Neuro oriented x3 and CN's II-XII intact bilaterally Sensorium / Orientation: alert Psych mental status grossly normal Mood & Affect: Negative for depressed or tearful Skin no rashes or lesions noted MDM MDM MDM Narrative Medical decision making narrative: Differential diagnosis includes but not limited to pneumonia dehydration electrolyte abnormality acute kidney injury UTI sepsis insomnia anxiety Patient's white count is decreased today down to 12.6 hemoglobin is 14 the count 47. Glucose of 110 normal LFTs normal lipase. Urinalysis shows greater than 100 white cells rare bacteria it is nitrate positive with 150 ketones. Patient appears to be colonized on prior urine cultures. He received a liter of IV fluids. My independent interpretation of the chest x-ray is no significant worsening of pneumonia which appears to be retrocardiac in nature. Patient received a dose of Ativan. Has been resting more comfortably. If possible the patient would like to be treated at home which I think is reasonable. I gave him a dose of his morning blood pressure medications. Would recommend continuing the antibiotics oral hydration and rest. Monitor for worsening symptoms return if worsening or concerns. Please follow-up with primary care. History & Record Review Discussion w/independent historian: Patient and Significant other Additional record(s) reviewed:: Prior ED visit and Prior labs Lab Data Attestation: I reviewed the patient's lab results. Labs: Laboratory Results - last 24 hr 07/14/24 07/14/24 07:40 07:52 WBC 12.6 H RBC 5.17 Hgb 14.0 Hct 42.8 MCV 82.8 MCH 27.1 MCHC 32.7 RDW Std Deviation 47.8 H RDW Coeff of Bhanu 15.9 H Plt Count 487 H MPV 8.9 Immature Gran % (Auto) 0.600 Neut % (Auto) 72.1 H Lymph % (Auto) 19.4 [place] % (Auto) 5.9 Eos % (Auto) 1.4 Baso % (Auto) 0.6 Absolute Neuts (auto) 9.1 H Absolute Lymphs (auto) 2.44 Nucleated RBC % 0 Sodium 139 Potassium 3.6 Chloride 103 Carbon Dioxide 26.0 Anion Gap 9 BUN 14 Creatinine 0.66 L Estim Creat Clear Calc 125.25 Est GFR (MDRD) Af Amer 156 Est GFR (MDRD) Non-Af 129 BUN/Creatinine Ratio 21.2 H Glucose 110 H Calcium 9.5 Total Bilirubin 0.30 Direct Bilirubin 0.13 AST 20 ALT 19 Alkaline Phosphatase 117 Total Protein 7.7 Albumin 2.5 L Globulin 5.2 H Lipase 20 L Urine Color Yellow Urine Clarity Cloudy Urine pH 5.0 Ur Specific [place] 1.025 Urine Protein 100 H Urine Glucose (UA) Normal Urine Ketones 150 A* Urine Occult Blood 50 H Urine Nitrite Positive H Urine Bilirubin Negative Urine Urobilinogen Normal Ur Leukocyte Esterase 500 H Urine RBC 0 SEEN Urine WBC >100 SEEN Ur Squamous Epith Cells 0-5 SEEN Calcium Oxalate Crystal RARE Urine Bacteria RARE Urine Mucus 0 SEEN Radiography Diagnostic Testing: Clinical Impression(s) from Imaging Studies Chest X-Ray 07/14/24 07:26 IMPRESSION: 1. The small left lower lobe consolidation seen on recent CTA is obscured by the cardiac shadow. 2. No pleural effusion or pneumothorax. Reading Location: [facility] Discharge Plan Triage Chief Complaint: Other, Pain/Inj ED Provider: Rico Moore Dx/Rx/DC Orders Clinical Impression: Paraplegia, Pneumonia, Insomnia, Acute dehydration Instructions: Dehydration, ED Insomnia, ED Pneumonia (Adult) Prescriptions: New lorazepam [lorazepam] 1 mg tablet 1 mg PO TID PRN (Reason: insomnia) Qty: 10 0RF ondansetron 4 mg tablet,disintegrating 4 mg PO Q6H PRN PRN (Reason: Nausea) Qty: 15 0RF No Action baclofen 20 MG tablet 20 mg PO TID Patient Comments: MUSCLE SPASMS multivitamin with folic acid [Thera] 1 TABLET tablet 1 tab PO LUNCH Patient Comments: SUPPLEMENT gabapentin 100 MG capsule 900 mg PO TID Patient Comments: NEUROPATHY nortriptyline 50 MG capsule 100 mg PO QHS ascorbic acid (vitamin C) [Vitamin C] 1,000 mg Tablet 1 g PO DAILY venlafaxine 75 mg Tablet 150 mg PO DAILY docusate sodium 100 mg Capsule 100 mg PO BID cholecalciferol (vitamin D3) [Vitamin D3] 50 mcg (2,000 unit) Capsule 50 mcg PO DAILY loratadine 10 mg Capsule 10 mg PO DAILY carvedilol 6.25 mg Tablet 6.25 mg PO BID 30 Days Qty: 60 0RF aspirin 81 mg Tablet,Delayed Release (Dr/Ec) 81 mg PO BREAKFAST 30 Days Qty: 30 0RF Eliquis 2.5 mg Tablet 2.5 mg PO BID 30 Days Qty: 60 0RF ondansetron 4 mg tablet,disintegrating 4 mg PO Q8H PRN (Reason: nausea and vomiting) Qty: 10 0RF buprenorphine 10 mcg/hour patch weekly 1 patch transdermal Q7D Patient Comments: last applied was Monday06/07/2024 rosuvastatin [Crestor] 10 mg tablet 20 mg PO DAILY doxycycline monohydrate 100 mg capsule 100 mg PO BID 10 Days Qty: 20 0RF azithromycin [Zithromax Z-Elio] 250 mg tablet See Rx Instructions .ROUTE .COMPLEX Qty: 6 0RF Rx Instructions: For 250 mg dose pack: take 500 mg today (day 1), then 250 mg for 4 days (days 2-5) lisinopril 2.5 mg tablet 2.5 mg PO DAILY Qty: 30 11RF [facility] Provider[facility] [Primary Care Provider] - As Needed Print Language: Liberian Disposition Disposition: Home, Self Care
[2024-07-14 07:54] LABS: Absolute Lymphocyte Count 2.44 X10^3/uL (0.83-4.51); Absolute Neutrophil Count 9.1 X10^3/uL (2.0-7.7); Basophil# 0.07 X10^3/uL; Basophil% 0.6 % (0-1); Eosinophil# 0.17 X10^3/uL; Eosinophils% 1.4 % (0-5); Hematocrit 42.8 % (40-54); Lymphocyte # 2.44 X10^3/ul (0.83-4.51); Lymphocyte % 19.4 % (19-41); Mean Corp Hgb Conc 32.7 g/dL (32-36); Mean Corpuscular Hgb 27.1 pg (27.0-32.0); Mean Corpuscular Volume 82.8 fL (80-94); Mean Platelet Vol. 8.9 fl (6.2-12.0); Monocyte# 0.74 X10^3/uL; Monocyte% 5.9 % (0-10); NRBC Flagged by Analyzer 0 % (0-5); Neutrophil % 72.1 % (47-70); Platelet Count 487 K/mm3 (150-450); RBC Distribution Width CV 15.9 % (11.6-14.6); RBC Distribution Width SD 47.8 fl (35.1-43.9); Red Blood Count 5.17 M/mm3 (4.6-6.2); White Blood Count 12.6 K/mm3 (4.4-11.0)
[2024-07-14 07:56] LABS: Mucous, Urine 0 SEEN /hpf (<or=2+)
[2024-07-14] MEDS: Carvedilol 6.25 MG Tablet PO (07:56)
[2024-07-14] MEDS: Lisinopril 5 MG Tablet PO (07:56)
[2024-07-14] MEDS: Lorazepam 2 MG/ML WCH Syringe 1 MG IV (07:56)
[2024-07-14] MEDS: 0.9% Normal Saline (1000mL) 1,000 ML 1000 ML IV (07:56)
[2024-07-14 07:57] LABS: Color, Urine Yellow (Yellow); Glucose, Dipstick Normal (Normal); Leukocyte Esterase-Dipstick 500 /ul (Negative); Nitrite-Dipstick Positive (Negative); Occult Blood-Urine 50 /ul (Negative); Protein-Dipstick 100 mg/dl (Negative); Specific Gravity, Urine 1.025 (1.002-1.030); Urine Bilirubin Dipstick Negative (Negative); Urine Clarity Cloudy (Clear); Urine Urobilinogen Normal (Normal)
[2024-07-14 07:59] LABS: Ketone-Dipstick 150 mg/dl (Negative)
[2024-07-14 08:09] LABS: Bacteria RARE /hpf (None Seen); Calcium Oxalate Crystals Ur RARE /hpf (<or=2+); Squamous Epithelial Cells - UA 0-5 SEEN /hpf (0-5); White Blood Cells >100 SEEN /hpf (0-5)
[2024-07-14 08:10] LABS: Red Blood Cells-Urine 0 SEEN /hpf (0-5)
[2024-07-14 08:35] LABS: AST(SGOT) 20 U/L (15-37); Alanine Aminotransfer ALT/SGPT 19 U/L (16-61); Albumin, Serum 2.5 g/dL (3.2-5.0); Alkaline Phosphatase 117 U/L (45-117); Anion Gap 9 (5-15); BUN 14 mg/dL (7-18); BUN/Creat Ratio 21.2 RATIO (10-20); Bilirubin, Direct 0.13 mg/dL (0.00-0.30); Calcium,Total 9.5 mg/dL (8.5-10.1); Chloride 103 mmol/L (98-107); Creatinine, Serum 0.66 mg/dL (0.70-1.30); EST Glomerular Filtration Rate 129 mL/min (>60); Est Glom Filt Rate - Afr Amer 156 mL/min (>60); Estimated Creatinine Clearance 125.25 ml/min; Globulin 5.2 g/dL (2.2-4.2); Glucose 110 mg/dL (74-106); Lipase 20 U/L (73-393); Potassium 3.6 mmol/L (3.5-5.1); Protein, Total 7.7 g/dL (6.4-8.2); Sodium Level 139 mmol/L (136-145)
[2024-07-14 12:00] VITALS: BP 139/86; PULSE 82; RESP 17; TEMP 36.4; O2SAT 94
--- NOTE | 2024-07-15 12:39 | CM.ED ---
Social Work Received call from Loren at [facility], who reports patient is active with this [facility] agency, inquiring whether patient's hospital presentation resulted in admission, or discharge from the ED. This reflects whether resumption of care orders/initial assessment would be needed to continue services. For continuity of care of this patient in the community, updated Loren that presentation was to the ED only on both 07.13.24 and 07.14.24. -MAUREEN Oliva
== END 2024-07-14 12:01 | disposition home or self-care (01) ==
PROVIDERS: Emergency Provider Emergency Medicine; Visit Provider Emergency Medicine
DX: G47.00 Insomnia, unspecified (principal); G82.20 Paraplegia, unspecified; Z93.3 Colostomy status; J18.9 Pneumonia, unspecified organism; I25.10 Atherosclerotic heart disease of native coronary artery without angina pectoris; E86.0 Dehydration; I10 Essential (primary) hypertension; F17.200 Nicotine dependence, unspecified, uncomplicated; Z95.5 Presence of coronary angioplasty implant and graft; Z79.899 Other long term (current) drug therapy
CPT/HCPCS: 71045; 80048; 80076; 81001; 83690; 85025; 96361; 96374; 99285; A4216

== ENCOUNTER 2024-09-11 15:36 | Emergency (ER) | payer OTHER, SELFPAY ==
[2024-09-11] VITALS (33 sets, daily range): BP systolic 121–147; BP diastolic 74–89; PULSE 69–86; RESP 9–18; TEMP 36.4–36.9; O2SAT 94–100; BMI 27.8
--- NOTE | 2024-09-11 15:54 | EDS_ITS ---
HPI <MARCOS Holliday - Last Filed: 09/11/24 21:48> History of Present Illness Chief Complaint: Cellulitis Narrative Narrative: Patient is a 64-year-old male that is a paraplegic, this is secondary to transverse myelitis, patient also has history of wounds, colostomy, catheter, anxiety who presents to the [facility] unit for wound evaluation. Patient does live at home, patient's as well as some home care nursing does take care of him. The home care nurses noticed that there was a foul-smelling odor from multiple wounds on his sacrum, buttocks area, they referred him to the [facility] unit. Patient denies any fever or chills. Patient does not state he has any pain however he has no feeling. [facility] <MARCOS Holliday - Last Filed: 09/11/24 21:48> [facility] Medical History Sacral decubitus ulcer, stage III Atherosclerotic heart disease of [place] coronary artery without angina pectoris Depression Chronic indwelling [place] catheter Heavy alcohol use Anxiety and depression Acute paralytic poliomyelitis, wild virus, indigenous Osteomyelitis of right femur Transverse myelitis Neurogenic bladder Benign essential hypertension Home Medications ?Medication ?Instructions ?Recorded ?Last Taken ?Type baclofen 20 mg tablet 20 mg PO TID muscle spasms 1 06/27/21 History multivitamin with folic acid 400 1 tab PO LUNCH supple sia 02/26/13 06/27/21 History mcg tablet (Thera) gabapentin 100 mg capsule 300 mg PO TID neuropathy 06/27/21 History nortriptyline 50 mg capsule 100 mg PO QHS anxiety 08/09/1406/26/21 History ascorbic acid (vitamin C) 1,000 mg 1 g PO DAILY Check with primary 06/28/21 U nknown History tablet (Vitamin C) doctor cholecalciferol (vitamin D3) 50 50 mcg PO DAILY Check with primary 06/28/21 Unknown History mcg (2,000 unit) capsule (Vitamin doctor D3) docusate sodium 100 mg capsule 100 mg PO BID Check wit h primary 06/28/21 Unknown History doctor loratadine 10 mg capsule 10 mg PO DAILY Check with pr imary 06/28/21 Unknown History doctor venlafaxine 75 mg tablet 150 mg PO DAILY Check with jill echeverria 06/28/21 Unknown History doctor apixaban 2.5 mg tablet (Eliquis) 2.5 mg PO BID 30 days #60 tabs 06/29/21 Unknown Rx Held on 09/11/24. Instructions: not confirmed aspirin 81 mg tablet,delayed 81 mg PO BREAKFAST heart health 30 06/29/21 Unknown Rx release days #30 tabs carvedilol 6.25 mg tablet 6.25 mg PO BID heart 30 days #60 06/29/21 Unknown Rx tabs ondansetron 4 mg disintegrating 4 mg PO Q8H PRN nausea and 06/06/22 Unknown Rx tablet vomiting #10 tabs rosuvastatin 10 mg tablet (Crestor) 20 mg PO DAILY Unknown History doxycycline monohydrate 100 mg 100 mg PO BID 10 days # 20 CAPSULES 07/13/24 Unknown Rx capsule buprenorphine 20 mcg/hour weekly 1 patch transdermal Q 7D 09/11/24 Unknown History transdermal patch Allergy/AdvReac Type Severity Reaction Status Date / Time No Known Allergies Allergy Verified 07/14/24 07:10 Family History Father CVA (cerebral vascular accident) Heart disease Myocardial infarction Surgical History History of coronary artery stent placement (06/28/21) History of femoral derotational osteotomy History of appendectomy History of suprapubic catheter Hx of colostomy Colostomy in place Social History household members: spouse Smoking Status: Former smoker alcohol intake: former substance use type: marijuana ROS <MARCOS Holliday - Last Filed: 09/11/24 21:48> ROS ED ROS Narrative Constitutional: Negative for fever, chills, weight loss, weakness Eyes: Negative for vision loss, vision change, double vision ENT: Negative for any sore throat, ear pain, congestion Cardiovascular: Negative for any chest pain, tightness, palpitations Respiratory: Negative for any cough, sputum production, hemoptysis, dyspnea, dyspnea on exertion, orthopnea Gastrointestinal: Negative for any abdominal pain, nausea, vomiting, diarrhea, constipation, blood in stool, blood in vomit : Negative for any urinary frequency, dysuria, retention, blood in urine Muscle skeletal: Negative for any neck pain, back pain Neurological: Negative for any headache, syncope, dizziness Skin: Negative for any rashes, itching, abrasions, lacerations. Positive for multiple wounds of the sacrum, buttock area Psychiatric: Negative for any depression, anxiety, stress, suicidal ideation, homicidal ideation Hematologic: Negative for any excessive bruising, easy bleeding EXAM <MARCOS Holliday - Last Filed: 09/11/24 21:48> Physical Exam Narrative Exam Narrative: Vital signs reviewed. HEET: Head normocephalic atraumatic, TMs clear bilaterally. Posterior pharynx is clear, moist mucous membranes. Nares clear bilaterally. Neck: Supple with no lymphadenopathy or tenderness. No signs of meningismus. Cardiac: Regular rate and rhythm no murmurs gallops or rubs, equal peripheral pulses bilaterally. Respiratory: Lungs clear to auscultation bilaterally. No chest tenderness. Abdomen: Soft, nontender, nondistended. No abdominal bruit or pulsatile masses. No hepatosplenomegaly. Colostomy looks well-appearing, suprapubic catheter was unremarkable. Extremities: No peripheral edema, no signs of gross trauma or deformity. Active full range of motion of all extremities. Neuro: Cranial nerves II through XII intact, no focal neurological deficits. Skin: Clean dry and intact with no rash, purpura, petechiae, vesicles or pustules. Patient has stage II and stage III pressure wounds to the coccyx, buttocks. There are areas of yellow drainage, foul-smelling odor. There is some surrounding cellulitis. There is some tunneling. There is no bone exposure. Backs/flank: No CVA tenderness, no midline spinal tenderness, no deformity. Psych: Normal mood and affect. No SI, HI or acute psychosis. Const Vital Signs: 09/11/24 15:37 09/11/24 15:41 09/11/24 15:52 Temperature 97.9 F 97.9 F Temperature Source Oral Oral Pulse Rate 75 77 Respiratory Rate 18 18 Blood Pressure 121/80 H 121/80 H Blood Pressure Mean 93 93 Pulse Ox 97 97 97 Oxygen Delivery Method Room Air Room Air Room Air 09/11/24 16:41 09/11/24 17:35 09/11/24 17:45 Temperature 97.9 F Temperature Source Oral Pulse Rate 71 72 Respiratory Rate 15 9 L Blood Pressure 136/80 H 141/74 H Blood Pressure Mean 98 94 Pulse Ox 97 100 Oxygen Delivery Method Room Air 09/11/24 17:57 09/11/24 18:00 09/11/24 18:15 Temperature 97.6 F L Temperature Source Oral Pulse Rate 72 70 71 Respiratory Rate 12 14 15 Blood Pressure 141/74 H Blood Pressure Mean 96 Pulse Ox 98 Oxygen Delivery Method Room Air 09/11/24 18:30 09/11/24 18:45 09/11/24 19:00 Temperature 97.8 F Temperature Source Oral Pulse Rate 72 75 Respiratory Rate 16 15 Blood Pressure 139/89 H 147/89 H Blood Pressure Mean 105 108 Pulse Ox 97 Oxygen Delivery Method Room Air 09/11/24 19:00 09/11/24 19:15 09/11/24 19:30 Temperature Temperature Source Pulse Rate 72 69 75 Respiratory Rate 15 15 18 Blood Pressure 147/89 H Blood Pressure Mean 104 Pulse Ox Oxygen Delivery Method 09/11/24 19:45 09/11/24 20:00 09/11/24 20:00 Temperature 98.1 F Temperature Source Oral Pulse Rate 75 78 73 Respiratory Rate 14 14 13 Blood Pressure 144/83 H 144/83 H Blood Pressure Mean 103 101 Pulse Ox 96 Oxygen Delivery Method Room Air 09/11/24 20:15 09/11/24 20:30 09/11/24 20:33 Temperature Temperature Source Pulse Rate 75 86 Respiratory Rate 18 15 Blood Pressure 144/83 H Blood Pressure Mean 103 Pulse Ox Oxygen Delivery Method 09/11/24 20:44 09/11/24 20:45 09/11/24 21:00 Temperature 98.4 F Temperature Source Oral Pulse Rate 82 83 82 Respiratory Rate 18 11 L 14 Blood Pressure 144/83 H 136/84 H Blood Pressure Mean 103 99 Pulse Ox 96 Oxygen Delivery Method Room Air 09/11/24 21:15 09/11/24 21:30 09/11/24 21:45 Temperature Temperature Source Pulse Rate 82 83 82 Respiratory Rate 12 15 11 L Blood Pressure 127/77 H Blood Pressure Mean 91 Pulse Ox Oxygen Delivery Method 09/11/24 22:00 09/11/24 22:00 09/11/24 22:15 Temperature 98.1 F Temperature Source Oral Pulse Rate 82 82 83 Respiratory Rate 16 12 14 Blood Pressure 145/85 H 145/85 H Blood Pressure Mean 105 102 Pulse Ox 95 Oxygen Delivery Method Room Air 09/11/24 22:30 09/11/24 22:45 09/11/24 23:00 Temperature 97.5 F L Temperature Source Oral Pulse Rate 86 84 81 Respiratory Rate 14 13 14 Blood Pressure 130/83 H Blood Pressure Mean 98 Pulse Ox 97 Oxygen Delivery Method Room Air 09/11/24 23:00 Temperature Temperature Source Pulse Rate 82 Respiratory Rate 15 Blood Pressure 130/83 H Blood Pressure Mean 96 Pulse Ox 95 Oxygen Delivery Method <Dr. Adan Bell, DO - Last Filed: 09/12/24 00:12> Physical Exam Const Vital Signs: 09/11/24 15:37 09/11/24 15:41 09/11/24 15:52 Temperature 97.9 F 97.9 F Temperature Source Oral Oral Pulse Rate 75 77 Respiratory Rate 18 18 Blood Pressure 121/80 H 121/80 H Blood Pressure Mean 93 93 Pulse Ox 97 97 97 Oxygen Delivery Method Room Air Room Air Room Air 09/11/24 16:41 09/11/24 17:35 09/11/24 17:45 Temperature 97.9 F Temperature Source Oral Pulse Rate 71 72 Respiratory Rate 15 9 L Blood Pressure 136/80 H 141/74 H Blood Pressure Mean 98 94 Pulse Ox 97 100 Oxygen Delivery Method Room Air 09/11/24 17:57 09/11/24 18:00 09/11/24 18:15 Temperature 97.6 F L Temperature Source Oral Pulse Rate 72 70 71 Respiratory Rate 12 14 15 Blood Pressure 141/74 H Blood Pressure Mean 96 Pulse Ox 98 Oxygen Delivery Method Room Air 09/11/24 18:30 09/11/24 18:45 09/11/24 19:00 Temperature 97.8 F Temperature Source Oral Pulse Rate 72 75 Respiratory Rate 16 15 Blood Pressure 139/89 H 147/89 H Blood Pressure Mean 105 108 Pulse Ox 97 Oxygen Delivery Method Room Air 09/11/24 19:00 09/11/24 19:15 09/11/24 19:30 Temperature Temperature Source Pulse Rate 72 69 75 Respiratory Rate 15 15 18 Blood Pressure 147/89 H Blood Pressure Mean 104 Pulse Ox Oxygen Delivery Method 09/11/24 19:45 09/11/24 20:00 09/11/24 20:00 Temperature 98.1 F Temperature Source Oral Pulse Rate 75 78 73 Respiratory Rate 14 14 13 Blood Pressure 144/83 H 144/83 H Blood Pressure Mean 103 101 Pulse Ox 96 Oxygen Delivery Method Room Air 09/11/24 20:15 09/11/24 20:30 09/11/24 20:33 Temperature Temperature Source Pulse Rate 75 86 Respiratory Rate 18 15 Blood Pressure 144/83 H Blood Pressure Mean 103 Pulse Ox Oxygen Delivery Method 09/11/24 20:44 09/11/24 20:45 09/11/24 21:00 Temperature 98.4 F Temperature Source Oral Pulse Rate 82 83 82 Respiratory Rate 18 11 L 14 Blood Pressure 144/83 H 136/84 H Blood Pressure Mean 103 99 Pulse Ox 96 Oxygen Delivery Method Room Air 09/11/24 21:15 09/11/24 21:30 09/11/24 21:45 Temperature Temperature Source Pulse Rate 82 83 82 Respiratory Rate 12 15 11 L Blood Pressure 127/77 H Blood Pressure Mean 91 Pulse Ox Oxygen Delivery Method 09/11/24 22:00 09/11/24 22:00 09/11/24 22:15 Temperature 98.1 F Temperature Source Oral Pulse Rate 82 82 83 Respiratory Rate 16 12 14 Blood Pressure 145/85 H 145/85 H Blood Pressure Mean 105 102 Pulse Ox 95 Oxygen Delivery Method Room Air 09/11/24 22:30 09/11/24 22:45 09/11/24 23:00 Temperature 97.5 F L Temperature Source Oral Pulse Rate 86 84 81 Respiratory Rate 14 13 14 Blood Pressure 130/83 H Blood Pressure Mean 98 Pulse Ox 97 Oxygen Delivery Method Room Air 09/11/24 23:00 Temperature Temperature Source Pulse Rate 82 Respiratory Rate 15 Blood Pressure 130/83 H Blood Pressure Mean 96 Pulse Ox 95 Oxygen Delivery Method MDM <MARCOS Holliday - Last Filed: 09/11/24 21:48> [facility]U Lab Data Labs: Laboratory Results - last 24 hr 09/11/24 09/11/24 16:00 16:56 WBC 11.6 H RBC 5.05 Hgb 13.0 Hct 40.9 MCV 81.0 MCH 25.7 L MCHC 31.8 L RDW Std Deviation 51.1 H RDW Coeff of Bhanu 17.6 H Plt Count 371 MPV 8.6 Immature Gran % (Auto) 0.400 Neut % (Auto) 66.2 Lymph % (Auto) 20.8 [place] % (Auto) 8.6 Eos % (Auto) 3.6 Baso % (Auto) 0.4 Absolute Neuts (auto) 7.6 Absolute Lymphs (auto) 2.40 Nucleated RBC % 0 PT 13.7 INR 1.0 APTT 49.7 H Sodium 139 Potassium 4.1 Chloride 103 Carbon Dioxide 27.3 Anion Gap 9 BUN 15 Creatinine 0.75 Estim Creat Clear Calc 107.24 Est GFR (MDRD) Non-Af 101 BUN/Creatinine Ratio 19.5 Glucose 123 H Lactic Acid 1.4 Calcium 8.9 Total Bilirubin < 0.15 AST 27 ALT 19 Alkaline Phosphatase 146 H Total Protein 6.8 Albumin 3.0 L Globulin 3.9 Albumin/Globulin Ratio 0.8 L Urine Color Yellow Urine Clarity Clear Urine pH 6.0 Ur Specific [place] 1.015 Urine Protein 15 H Urine Glucose (UA) Normal Urine Ketones Negative Urine Occult Blood 10 H Urine Nitrite Positive H Urine Bilirubin Negative Urine Urobilinogen Normal Ur Leukocyte Esterase 100 H Urine RBC 0-5 SEEN Urine WBC 5-10 SEEN Ur Squamous Epith Cells 0 SEEN Calcium Oxalate Crystal RARE Urine Bacteria 2+ Urine Mucus RARE Radiography Diagnostic Testing: Clinical Impression(s) from Imaging Studies Pelvis CT 09/11/24 16:38 IMPRESSION: Large sacral decubitus ulcers with chronic osteomyelitis of the sacrum and ischium bilaterally but no abscess. Reading Location: [id number] Treatment and Re-Evaluation :: Differential diagnosis includes however is not limited to: Osteomyelitis, stage III pressure ulcers, stage IV pressure ulcers, sepsis, cellulitis, necrotizing fasciitis Patient appears generally well, vital signs are stable, patient is nontoxic-appe aring. Presenting to the emergency department for wound care, wound evaluation. On my physical examination, patient multiple wounds to the sacrum, buttocks area, this was between stage II to stage III pressure ulcers with some drainage. I was able to collect wound cultures. Patient was seen a septic workup. CT scan of the pelvis will be completed. All radiologic examinations were read, reviewed by the emergency department attending. From these reads, a plan of care will be put in place. Patient remained stable. Patient's laboratory values shows a normal PT/INR. Patient's CBC shows slight leukocytosis with white blood count 11.6, chemistries were unremarkable. Patient was started IV vancomycin, IV Zosyn. CT scan of the pelvis showed large sacral decubitus ulcers with chronic osteomyelitis of the sacrum and ischium bilaterally but no abscess. Secondary this finding, the patient does want to try to go to the [facility]. We will try to see if they have a bed. If not the patient will be admitted here. Patient will be admitted to [facility]. <Dr. Adan Bell, DO - Last Filed: 09/12/24 00:12> [facility] MDM Narrative Medical decision making narrative: I have personally performed a face to face assessment of the patient and have reviewed the BE Note. I performed a substantive portion of the visit including all aspects of the following. My valdes findings include: History: Patient presents with sacral decubitus ulcers with been constant for months but have become worse over the past few days. Home health staff noted that there is some foul odor to the ulcerations. Patient was referred to the emergency department for possible infection of the sacral decubitus ulcers. Patient also states that he has a suprapubic catheter in. Patient states that on my office was also concern for possible urinary tract infection. Patient has a history of paraplegia and is numb from the waist down. Exam: Vital signs are stable. Patient is afebrile. Patient is in no acute distress. Oral mucosa is pink and moist. Neck is supple. Trachea is midline. There is no JVD. Heart was regular rate and rhythm. Lungs are clear and equal bilaterally. There is good respiratory effort noted. Abdomen is soft. Bowel sounds are normal. There is no tenderness. Cranial nerves II through XII are grossly intact. Skin is warm and dry. There are stage II sacral decubitus ulcers noted. There is some mild surrounding erythema. There is no active discharge or drainage noted. Medical Decision Making: Differential diagnosis includes cellulitis, abscess, osteomyelitis, urinary tract infection, sepsis, and coagulopathy. CBC will be obtained to assess for leukocytosis and anemia. Comprehensive metabolic profile will be obtained to assess for hepatic function, renal function, and electrolyte abnormality. PT with INR and PTT will be obtained to assess for coagulopathy. Serum lactate will be obtained to assess for sepsis. Urinalysis will be obtained to assess for urinary tract infection and hematuria. Blood culture will be obtained to assess for sepsis. Urine culture will be obtained to assess for urinary tract infection. CT scan of the pelvis will be obtained to assess for osteomyelitis and abscess. Patient was started on Vancomycin and Zosyn. CBC was reviewed. There is a mild leukocytosis of 11.6. The remainder was within normal limits. PT with INR and PTT were reviewed. PTT was slightly elevated at 49.7. PT was INR were reviewed and were within normal limits. Comprehensive metabolic profile was reviewed and was essentially within normal limits. Alkaline phosphatase was slightly elevated at 146. Serum lactate was reviewed and was normal at 1.4. Urinalysis was reviewed. Leukocyte Estrace was 100 with positive nitrates. There are 5-10 white blood cells. There is 2+ bacteria. CT scan of the pelvis was obtained. There are large sacral decubitus ulcers with chronic osteomyelitis. There is no abscess formation. This was interpreted by the radiologist and was also independently reviewed by myself. Patient requested to go to the [facility]. Patient was accepted there. Patient was to be transferred to the emergency department there. However, ambulance service stated that the patient's insurance would not cover their ambulance transfer to the [facility]. [facility] unavailable to arrange for their own transportation until tomorrow. Patient will be kept in the emergency department until that time. Care of the patient will be turned over to the oncoming physician pending transfer. Patient understands and is agreeable with the plan. All questions were answered. Lab Data Labs: Laboratory Results - last 24 hr 09/11/24 09/11/24 16:00 16:56 WBC 11.6 H RBC 5.05 Hgb 13.0 Hct 40.9 MCV 81.0 MCH 25.7 L MCHC 31.8 L RDW Std Deviation 51.1 H RDW Coeff of Bhanu 17.6 H Plt Count 371 MPV 8.6 Immature Gran % (Auto) 0.400 Neut % (Auto) 66.2 Lymph % (Auto) 20.8 [place] % (Auto) 8.6 Eos % (Auto) 3.6 Baso % (Auto) 0.4 Absolute Neuts (auto) 7.6 Absolute Lymphs (auto) 2.40 Nucleated RBC % 0 PT 13.7 INR 1.0 APTT 49.7 H Sodium 139 Potassium 4.1 Chloride 103 Carbon Dioxide 27.3 Anion Gap 9 BUN 15 Creatinine 0.75 Estim Creat Clear Calc 107.24 Est GFR (MDRD) Non-Af 101 BUN/Creatinine Ratio 19.5 Glucose 123 H Lactic Acid 1.4 Calcium 8.9 Total Bilirubin < 0.15 AST 27 ALT 19 Alkaline Phosphatase 146 H Total Protein 6.8 Albumin 3.0 L Globulin 3.9 Albumin/Globulin Ratio 0.8 L Urine Color Yellow Urine Clarity Clear Urine pH 6.0 Ur Specific [place] 1.015 Urine Protein 15 H Urine Glucose (UA) Normal Urine Ketones Negative Urine Occult Blood 10 H Urine Nitrite Positive H Urine Bilirubin Negative Urine Urobilinogen Normal Ur Leukocyte Esterase 100 H Urine RBC 0-5 SEEN Urine WBC 5-10 SEEN Ur Squamous Epith Cells 0 SEEN Calcium Oxalate Crystal RARE Urine Bacteria 2+ Urine Mucus RARE Radiography Diagnostic Testing: Clinical Impression(s) from Imaging Studies Pelvis CT 09/11/24 16:38 IMPRESSION: Large sacral decubitus ulcers with chronic osteomyelitis of the sacrum and ischium bilaterally but no abscess. Reading Location: [facility] Discharge Plan Triage Chief Complaint: Cellulitis ED Midlevel Provider: Alex Sheppard ED Provider: Adan Bell Dx/Rx/DC Orders Clinical Impression: Paraplegia, Sacral wound, Osteomyelitis Prescriptions: No Action baclofen 20 MG tablet 20 mg PO TID Patient Comments: MUSCLE SPASMS multivitamin with folic acid [Thera] 1 TABLET tablet 1 tab PO LUNCH Patient Comments: SUPPLEMENT gabapentin 100 MG capsule 300 mg PO TID Patient Comments: NEUROPATHY nortriptyline 50 MG capsule 100 mg PO QHS ascorbic acid (vitamin C) [Vitamin C] 1,000 mg Tablet 1 g PO DAILY venlafaxine 75 mg Tablet 150 mg PO DAILY docusate sodium 100 mg Capsule 100 mg PO BID cholecalciferol (vitamin D3) [Vitamin D3] 50 mcg (2,000 unit) Capsule 50 mcg PO DAILY loratadine 10 mg Capsule 10 mg PO DAILY carvedilol 6.25 mg Tablet 6.25 mg PO BID 30 Days Qty: 60 0RF aspirin 81 mg Tablet,Delayed Release (Dr/Ec) 81 mg PO BREAKFAST 30 Days Qty: 30 0RF Eliquis 2.5 mg Tablet 2.5 mg PO BID 30 Days Qty: 60 0RF ondansetron 4 mg tablet,disintegrating 4 mg PO Q8H PRN (Reason: nausea and vomiting) Qty: 10 0RF buprenorphine 20 mcg/hour patch weekly 1 patch transdermal Q7D Rx Instructions: sundays rosuvastatin [Crestor] 10 mg tablet 20 mg PO DAILY doxycycline monohydrate 100 mg capsule 100 mg PO BID 10 Days Qty: 20 0RF [facility] [Primary Care Provider] - Print Language: Belgian Disposition Disposition: Acute Care Hospital Discharge Location: Department of [facility]
[2024-09-11 16:22] LABS: Absolute Neutrophil Count 7.6 X10^3/uL (2.0-7.7); Basophil# 0.05 X10^3/uL; Basophil% 0.4 % (0-1); Eosinophil# 0.42 X10^3/uL; Eosinophils% 3.6 % (0-5); Hematocrit 40.9 % (40-54); Lymphocyte % 20.8 % (19-41); Mean Corp Hgb Conc 31.8 g/dL (32-36); Mean Corpuscular Hgb 25.7 pg (27.0-32.0); Mean Platelet Vol. 8.6 fl (6.2-12.0); Monocyte# 0.99 X10^3/uL; Monocyte% 8.6 % (0-10); NRBC Flagged by Analyzer 0 % (0-5); Neutrophil # 7.64 X10^3/uL (2.7-7.7); Neutrophil % 66.2 % (47-70); Platelet Count 371 K/mm3 (150-450); RBC Distribution Width CV 17.6 % (11.6-14.6); RBC Distribution Width SD 51.1 fl (35.1-43.9); Red Blood Count 5.05 M/mm3 (4.6-6.2); White Blood Count 11.6 K/mm3 (4.4-11.0)
--- NOTE | 2024-09-11 16:38 | CT_ITS ---
PROCEDURE: PELVIS WITH IV CONTRAST REASON FOR EXAM: SACRAL WOUNDS . TECHNIQUE: Pelvis CT with intravenous contrast. One or more dose reduction techniques were used (e.g., Automated exposure control, adjustment of the mA and/or kV according to patient size, use of iterative reconstruction technique). COMPARISON: None. FINDINGS: Bladder: Suprapubic catheter within the collapsed bladder. Reproductive Organs: Unremarkable. 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 Appendix: Not visualized Lymph nodes: Unremarkable. Vasculature: Major vascular structures are unremarkable. Peritoneum / Retroperitoneum: No ascites. No free air. Bones: Dysplasia of both hip joints. Bilateral decubitus ulcers extending to the posterior aspect of the ischium bilaterally with destruction of the posterior ischium consistent with chronic ulcers with osteomyelitis. Large decubitus ulcer posterior to the sacrum with destruction and/or surgical resection of the distal sacrum and coccyx and exposure of the distal sacrum. Some sclerosis of the distal sacrum consistent with chronic osteomyelitis. CT/Pelvis WITH IV Contrast IMPRESSION: Large sacral decubitus ulcers with chronic osteomyelitis of the sacrum and isch ium bilaterally but no abscess. Reading Location: [id number]
[2024-09-11 16:42] LABS: ALB/GLOB Ratio 0.8 RATIO (0.9-2.4); AST(SGOT) 27 U/L (<=37); Alanine Aminotransfer ALT/SGPT 19 U/L (<=46); Alkaline Phosphatase 146 U/L (40-129); Anion Gap 9 (5-15); BUN 15 mg/dL (4-19); BUN/Creat Ratio 19.5 RATIO (10-20); Calcium,Total 8.9 mg/dL (7.6-11.0); Carbon Dioxide 27.3 mmol/L (21.0-32.0); Chloride 103 mmol/L (98-108); Creatinine, Serum 0.75 mg/dL (0.70-1.20); EST Glomerular Filtration Rate 101 (>60); Estimated Creatinine Clearance 107.24 ml/min (50-250); Globulin 3.9 g/dL (2.2-4.2); Glucose 123 mg/dL (70-99); Potassium 4.1 mmol/L (3.3-5.1); Protein, Total 6.8 g/dL (5.9-8.4); Sodium Level 139 mmol/L (133-145); Total Bilirubin < 0.15 mg/dL (0.00-1.30)
[2024-09-11 16:47] LABS: Lactic Acid 1.4 mmol/L (0.0-2.0)
[2024-09-11] MEDS: Piperacil/Tazobactam 3.375 GM in 0.9% Normal Saline (50mL MB+) 50 ML IV (16:50)
[2024-09-11] MEDS: Vancomycin HCl 2,000 MG in 0.9% Normal Saline (500mL Bag) 500 ML 250 MG IV (16:52)
[2024-09-11 17:03] LABS: Squamous Epithelial Cells - UA 0 SEEN /hpf (0-5)
[2024-09-11 17:27] LABS: Partial Thromboplast Time 49.7 Seconds (24.1-36.2); Prothrombin Time (Protime)PT. 13.7 SECONDS (11.7-14.9)
[2024-09-11 18:00] LABS: Color, Urine Yellow (Yellow); Glucose, Dipstick Normal (Normal); Ketone-Dipstick Negative (Negative); Leukocyte Esterase-Dipstick 100 /ul (Negative); Nitrite-Dipstick Positive (Negative); Occult Blood-Urine 10 /ul (Negative); Protein-Dipstick 15 mg/dl (Negative); Specific Gravity, Urine 1.015 (1.002-1.030); Urine Bilirubin Dipstick Negative (Negative); Urine Clarity Clear (Clear); Urine Urobilinogen Normal (Normal)
[2024-09-11 19:06] LABS: White Blood Cells 5-10 SEEN /hpf (0-5)
[2024-09-11 19:07] LABS: Bacteria 2+ /hpf (None Seen); Calcium Oxalate Crystals Ur RARE /hpf (<or=2+); Mucous, Urine RARE /hpf (<or=2+); Red Blood Cells-Urine 0-5 SEEN /hpf (0-5)
--- NOTE | 2024-09-11 21:42 | PCA ---
[facility] and they stated that he is not eligible for transfer setup through them and would have to review in the morning.
--- NOTE | 2024-09-11 22:35 | PCA ---
[facility]ed [facility] and [facility] to [facility] and set up transport via physicians family stated last time insurance did not cover and was told by [facility] they could provide transportation that would be in network. Called [facility] to confirm they stated patient was ineligible. [facility] called back pt was eligible and ETA for ride would be [phone]. Made pt aware then [facility] called back and stated that pt in ineligible due to provide means test which is proof of income. This department is unavailable until the tomorrow morning. Called physicians to confirm insurance would not cover this trip. Physicians unable to provide confirmation with certainly but stated likely would be billed to [place], if they did not accept this they would appeal.
--- NOTE | 2024-09-11 22:54 | HP.PCM.HOS_ITS ---
HPI - General HPI Narrative KALEN GAVIN, is a 64 M who presents [facility] Medical History Sacral decubitus ulcer, stage III Atherosclerotic heart disease of [place] coronary artery without angina pectoris Depression Chronic indwelling Lima catheter Heavy alcohol use Anxiety and depression Acute paralytic poliomyelitis, wild virus, indigenous Osteomyelitis of right femur Transverse myelitis Neurogenic bladder Benign essential hypertension Home Medications ?Medication ?Instructions ?Recorded ?Last Taken ?Type baclofen 20 mg tablet 20 mg PO TID muscle spasms 1 06/27/21 History multivitamin with folic acid 400 1 tab PO LUNCH supple sia 02/26/13 06/27/21 History mcg tablet (Thera) gabapentin 100 mg capsule 300 mg PO TID neuropathy 06/27/21 History nortriptyline 50 mg capsule 100 mg PO QHS anxiety 12/2806/26/21 History ascorbic acid (vitamin C) 1,000 mg 1 g PO DAILY Check with primary 06/28/21 Unknown History tablet (Vitamin C) doctor cholecalciferol (vitamin D3) 50 50 mcg PO DAILY Check with primary 06/28/21 Unknown History mcg (2,000 unit) capsule (Vitamin doctor D3) docusate sodium 100 mg capsule 100 mg PO BID Check wit h primary 06/28/21 Unknown History doctor loratadine 10 mg capsule 10 mg PO DAILY Check with pr imary 06/28/21 Unknown History doctor venlafaxine 75 mg tablet 150 mg PO DAILY Check with p rimary 06/28/21 Unknown History doctor apixaban 2.5 mg tablet (Eliquis) 2.5 mg PO BID 30 days #60 tabs 06/29/21 Unknown Rx Held on 09/11/24. Instructions: not confirmed aspirin 81 mg tablet,delayed 81 mg PO BREAKFAST heart health 30 06/29/21 Unknown Rx release days #30 tabs carvedilol 6.25 mg tablet 6.25 mg PO BID heart 30 days #60 06/29/21 Unknown Rx tabs ondansetron 4 mg disintegrating 4 mg PO Q8H PRN nausea and 06/06/22 Unknown Rx tablet vomiting #10 tabs rosuvastatin 10 mg tablet (Crestor) 20 mg PO DAILY Unknown History doxycycline monohydrate 100 mg 100 mg PO BID 10 days # 20 CAPSULES 07/13/24 Unknown Rx capsule buprenorphine 20 mcg/hour weekly 1 patch transdermal Q 7D 09/11/24 Unknown History transdermal patch Allergy/AdvReac Type Severity Reaction Status Date / Time No Known Allergies Allergy Verified 07/14/24 07:10 Family History Father CVA (cerebral vascular accident) Heart disease Myocardial infarction Surgical History History of coronary artery stent placement (06/28/21) History of femoral derotational osteotomy History of appendectomy History of suprapubic catheter Hx of colostomy Colostomy in place Social History household members: spouse Smoking Status: Former smoker alcohol intake: former substance use type: marijuana Vital Signs Vital Signs Vital Signs: 09/11/24 15:37 09/11/24 15:41 09/11/24 15:52 Temperature 97.9 F 97.9 F Temperature Source Oral Oral Pulse Rate 75 77 Respiratory Rate 18 18 Blood Pressure 121/80 H 121/80 H Blood Pressure Mean 93 93 Pulse Ox 97 97 97 Oxygen Delivery Method Room Air Room Air Room Air 09/11/24 16:41 09/11/24 17:35 09/11/24 17:45 Temperature 97.9 F Temperature Source Oral Pulse Rate 71 72 Respiratory Rate 15 9 L Blood Pressure 136/80 H 141/74 H Blood Pressure Mean 98 94 Pulse Ox 97 100 Oxygen Delivery Method Room Air 09/11/24 17:57 09/11/24 18:00 09/11/24 18:15 Temperature 97.6 F L Temperature Source Oral Pulse Rate 72 70 71 Respiratory Rate 12 14 15 Blood Pressure 141/74 H Blood Pressure Mean 96 Pulse Ox 98 Oxygen Delivery Method Room Air 09/11/24 18:30 09/11/24 18:45 09/11/24 19:00 Temperature 97.8 F Temperature Source Oral Pulse Rate 72 75 Respiratory Rate 16 15 Blood Pressure 139/89 H 147/89 H Blood Pressure Mean 105 108 Pulse Ox 97 Oxygen Delivery Method Room Air 09/11/24 19:00 09/11/24 19:15 09/11/24 19:30 Temperature Temperature Source Pulse Rate 72 69 75 Respiratory Rate 15 15 18 Blood Pressure 147/89 H Blood Pressure Mean 104 Pulse Ox Oxygen Delivery Method 09/11/24 20:00 09/11/24 20:33 09/11/24 20:44 Temperature 98.1 F 98.4 F Temperature Source Oral Oral Pulse Rate 78 82 Respiratory Rate 14 18 Blood Pressure 144/83 H 144/83 H 144/83 H Blood Pressure Mean 103 103 103 Pulse Ox 96 96 Oxygen Delivery Method Room Air Room Air 09/11/24 22:00 Temperature 98.1 F Temperature Source Oral Pulse Rate 82 Respiratory Rate 16 Blood Pressure 145/85 H Blood Pressure Mean 105 Pulse Ox 95 Oxygen Delivery Method Room Air Weight Weight: 85.411 kg Body Mass Index (BMI) 27.8 Results Lab / Micro Data 09/11/24 16:00 09/11/24 16:00 Labs: Laboratory Results - last 24 hr 09/11/24 16:00: WBC 11.6 H, RBC 5.05, Hgb 13.0, Hct 40.9, MCV 81.0, MCH 25.7 L, MCHC 31.8 L, RDW Std Deviation 51.1 H, RDW Coeff of Bhanu 17.6 H, Plt Count 371, MPV 8.6, Immature Gran % (Auto) 0.400, Neut % (Auto) 66.2, Lymph % (Auto) 20.8, [place] % (Auto) 8.6, Eos % (Auto) 3.6, Baso % (Auto) 0.4, Absolute Neuts (auto) 7.6, Absolute Lymphs (auto) 2.40, Nucleated RBC % 0, PT 13.7, INR 1.0, APTT 49.7 H, Sodium 139, Potassium 4.1, Chloride 103, Carbon Dioxide 27.3, Anion Gap 9, BUN 15, Creatinine 0.75, Estim Creat Clear Calc 107.24, Est GFR (MDRD) Non-Af 101, BUN/Creatinine Ratio 19.5, Glucose 123 H, Lactic Acid 1.4, Calcium 8.9, Total Bilirubin < 0.15, AST 27, ALT 19, Alkaline Phosphatase 146 H, Total Protein 6.8, Albumin 3.0 L, Globulin 3.9, Albumin/Globulin Ratio 0.8 L 09/11/24 16:56: Urine Color Yellow, Urine Clarity Clear, Urine pH 6.0, Ur Specific [place] 1.015, Urine Protein 15 H, Urine Glucose (UA) Normal, Urine Ketones Negative, Urine Occult Blood 10 H, Urine Nitrite Positive H, Urine Bilirubin Negative, Urine Urobilinogen Normal, Ur Leukocyte Esterase 100 H, Urine RBC 0-5 SEEN, Urine WBC 5-10 SEEN, Ur Squamous Epith Cells 0 SEEN, Calcium Oxalate Crystal RARE, Urine Bacteria 2+, Urine Mucus RARE Imaging Radiology Impression Pelvis CT 09/11/24 16:38 IMPRESSION: Large sacral decubitus ulcers with chronic osteomyelitis of the sacrum and ischium bilaterally but no abscess. Reading Location: [id number]
--- NOTE | 2024-09-11 23:15 | ED.RN ---
Per Dr Bell, pt is okay to take home meds with home bottles provided by . This RN witnessed the pt take these meds at 2320 on August: Gabapentin 300mg Baclofen 20mg Carvidelol 6.25mg Colace 100mg Nortiptyline 100mg Rosuvastatin 20mg
[2024-09-12] VITALS (51 sets, daily range): BP systolic 104–149; BP diastolic 73–92; PULSE 75–91; RESP 8–20; TEMP 36.4–36.7; O2SAT 94–100
[2024-09-12] MEDS: Piperacil/Tazobactam 3.375 GM in 0.9% Normal Saline (50mL MB+) 50 ML IV (07:55)
--- NOTE | 2024-09-12 08:07 | PCA ---
REACHED OUT TO [facility] FOR TRANSPORT UPDATE.
--- NOTE | 2024-09-12 08:17 | PCA ---
THE TRANSFER LINE IS REACHING OUT TO TRAVEL AND WILL CALL ME BACK PATI
--- NOTE | 2024-09-12 09:35 | PCA ---
reached out to the [employer] @ 6905 and no one answered. I left a message. I will try again shortly.
[2024-09-12] MEDS: Aspirin 81 MG TAB.CHEW PO (10:01)
[2024-09-12] MEDS: Carvedilol 6.25 MG Tablet PO (10:02)
[2024-09-12] MEDS: Gabapentin 300 MG Capsule PO (10:02)
--- NOTE | 2024-09-12 10:42 | PCA ---
[facility] @ 1040 AND PATIENT [facility] AND THEY WILL PICK HIM UP. WILL CALL BACK SOON WITH A SQUAD TIME.
--- NOTE | 2024-09-12 11:19 | PCA ---
[employer] WILL BE HERE @1300 TO [employer]ES [employer] @1300
== END 2024-09-12 13:07 | disposition short-term general hospital (02) ==
PROVIDERS: Nurse Practitioner; Emergency Provider Emergency Medicine; Visit Provider Emergency Medicine
DX: L89.152 Pressure ulcer of sacral region, stage 2 (principal); G82.20 Paraplegia, unspecified; Z93.3 Colostomy status; M46.28 Osteomyelitis of vertebra, sacral and sacrococcygeal region; M86.68 Other chronic osteomyelitis, other site; I25.10 Atherosclerotic heart disease of native coronary artery without angina pectoris; Z95.5 Presence of coronary angioplasty implant and graft; Z79.01 Long term (current) use of anticoagulants; Z79.82 Long term (current) use of aspirin; Z79.899 Other long term (current) drug therapy; Z87.891 Personal history of nicotine dependence
CPT/HCPCS: 72193; 80053; 81001; 83605; 85025; 85610; 85730; 87040; 87070; 87077; 87086; 87088; 87186; 87205; 96365; 96366; 96367; 96368; 99285; A4216

== ENCOUNTER 2024-11-01 14:11 | Emergency (ER) | payer OTHER, SELFPAY ==
[2024-11-01 14:11] VITALS: BP 153/97; PULSE 80; RESP 16; TEMP 37.1; O2SAT 99; BMI 27.6
--- NOTE | 2024-11-01 14:35 | EX.ED.GUMALE ---
HPI History of Present Illness Chief Complaint: Complaint Narrative Narrative: 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 Currently with suprapubic cath and colostomy secondary to his paraplegia. [facility] Lima changes beginning of each month. This was changed in the last month. Reported nursing noted concerns for changes in his urine color that was reported milky. He denies fevers or chills. States with typical infections he would have chills. No antibiotic allergies. He stays at home with caregivers. Sent here to rule out infection. [facility] Medical History Sacral decubitus ulcer, stage III Atherosclerotic heart disease of [place] coronary artery without angina pectoris Depression Chronic indwelling [place] catheter Heavy alcohol use Anxiety and depression Acute paralytic poliomyelitis, wild virus, indigenous Osteomyelitis of right femur Transverse myelitis Neurogenic bladder Benign essential hypertension Home Medications ?Medication ?Instructions ?Recorded ?Last Taken ?Type baclofen 20 mg tablet 20 mg PO TID muscle spasms 02/26/13 06/27/21 History multivitamin with folic acid 400 1 tab PO LUNCH supplemeny 02/26/13 06/27/21 History mcg tablet (Thera) gabapentin 100 mg capsule 300 mg PO TID neuropathy 04/19/13 06/27/21 History nortriptyline 50 mg capsule 100 mg PO QHS anxiety 01/19/19 06/26/21 History ascorbic acid (vitamin C) 1,000 mg 1 g PO DAILY Check with primary 06/28/21 Unknown History tablet (Vitamin C) doctor cholecalciferol (vitamin D3) 50 50 mcg PO DAILY Check with primary 06/28/21 Unknown History mcg (2,000 unit) capsule (Vitamin doctor D3) docusate sodium 100 mg capsule 100 mg PO BID Check with primary 06/28/21 Unknown History doctor loratadine 10 mg capsule 10 mg PO DAILY Check with primary 06/28/21 Unknown History doctor venlafaxine 75 mg tablet 150 mg PO DAILY Check with primary 06/28/21 Unknown History doctor apixaban 2.5 mg tablet (Eliquis) 2.5 mg PO BID 30 days #60 tabs 06/29/21 Unknown Rx Held on 09/11/24. Instructions: not confirmed aspirin 81 mg tablet,delayed 81 mg PO BREAKFAST heart health 30 06/29/21 Unknown Rx release days #30 tabs carvedilol 6.25 mg tablet 6.25 mg PO BID heart 30 days #60 06/29/21 Unknown Rx tabs ondansetron 4 mg disintegrating 4 mg PO Q8H PRN nausea and 06/06/22 Unknown Rx tablet vomiting #10 tabs rosuvastatin 10 mg tablet (Crestor) 20 mg PO DAILY 06/16/24 Unknown History doxycycline monohydrate 100 mg 100 mg PO BID 10 days #20 CAPSULES 07/13/24 Unknown Rx capsule buprenorphine 20 mcg/hour weekly 1 patch transdermal Q7D 09/11/24 Unknown History transdermal patch cefdinir 300 mg capsule 300 mg PO Q12H #14 caps 11/01/24 Unknown Rx Allergy/AdvReac Type Severity Reaction Status Date / Time No Known Allergies Allergy Verified 07/14/24 07:10 Family History Father CVA (cerebral vascular accident) Heart disease Myocardial infarction Surgical History History of coronary artery stent placement (06/28/21) History of femoral derotational osteotomy History of appendectomy History of suprapubic catheter Hx of colostomy Colostomy in place Social History household members: spouse Smoking Status: Former smoker alcohol intake: former substance use type: marijuana ROS ROS ED Constitutional Constitutional ED: Denies fever(s) Cardiovascular Cardiovascular: Denies chest pain Respiratory/Chest Respiratory/Chest: Denies cough Gastrointestinal Gastrointestinal: Denies diarrhea or vomiting Genitourinary Genitourinary ED: Reports other Details: Concerns for urinary tract infection Musculoskeletal Musculoskeletal: Denies none Integumentary Denies rash or wounds Neurologic Neurologic: Denies weakness EXAM Physical Exam Const Vital Signs: 11/01/24 14:11 11/01/24 16:11 11/01/24 16:30 Temperature 98.8 F 98.3 F Temperature Source Oral Pulse Rate 80 79 79 Respiratory Rate 16 18 18 Blood Pressure 153/97 H 138/99 H 138/99 H Blood Pressure Mean 115 112 112 Pulse Ox 99 95 95 Oxygen Delivery Method Room Air 11/01/24 18:00 Temperature Temperature Source Pulse Rate 82 Respiratory Rate 16 Blood Pressure 132/84 H Blood Pressure Mean 100 Pulse Ox 96 Oxygen Delivery Method Positive well nourished and well developed General Appearance ED: well developed HEENT normocephalic and atraumatic Eyes General Eye ED: Yes normal appearance of both eyes Neck full ROM Resp normal respiratory effort and normal air movement Cardio regular rate and regular rhythm GI soft to palpation GI Narrative: Left lower quadrant ostomy bag. Narrative: 18 [place]an suprapubic catheter orifice clean, dry intact. Tubing yellow there was mild sediment in the tube. The bag urine was yellow no cloudiness. Neuro oriented x3 Neuro Narrative: Lower extremity paralysis with contractures. Skin no rashes or lesions noted and no wounds MDM MDM MDM Narrative Medical decision making narrative: Interventions / MDM: Differential diagnosis: Complicated UTI, suprapubic cath, paraplegia Diagnosis considered but do not suspect: N/A My EKG interpretation: N/A Imaging independently reviewed and interpreted by myself: N/A External documents reviewed: N/A Test considered but not ordered:N/A ED course: Vital stable nontoxic no fever or chills. Nursing will collect a clean specimen from the Lima bag. Urine will be sent along with culture. Urine was positive for infection is nontoxic vital stable do not feel labs are necessary. Urine cultures pending he started on cefdinir for complicated UTI. I changed his catheter myself bedside. Procedure note: Verbal consent. Normal sterile conditions. Previous suprapubic cath removed after bulb was decompressed approximately 7 cc of fluid was in there. Lima was removed. Orifice was prepped with ChloraPrep. Sterile gloves loop was used on 18 [place]an straight Lima cath placed suprapubic no resistance. 10 cc saline pushed into the bulb, no resistance. Urine draining. This was attached to a new Lima bag. Patient tolerated procedure well. Dressing placed by nursing around suprapubic region. Patient will be transported back home outpatient follow[facility] Antibiotics sent to his pharmacy of choice. All questions were answered. Re-evaluation: stable Disposition discussed with patient/family/significant other: Patient Case discussed with consulting clinician: N/A This note was generated with [employer] dictation software. It may contain incorrect words, spelling, and punctuation that were not noted in checking the note before signing. Lab Data Attestation: I reviewed the patient's lab results. Labs: Laboratory Results - last 24 hr 11/01/24 14:56 Urine Color Yellow Urine Clarity Clear Urine pH 6.0 Ur Specific [place] 1.020 Urine Protein 100 H Urine Glucose (UA) Normal Urine Ketones Negative Urine Occult Blood 50 H Urine Nitrite Positive H Urine Bilirubin Negative Urine Urobilinogen Normal Ur Leukocyte Esterase 500 H Urine RBC 0 SEEN Urine WBC 0-5 SEEN Ur Squamous Epith Cells 0 SEEN Amorphous Sediment 1+ Urine Bacteria 0 SEEN Urine Mucus 0 SEEN Discharge Plan Triage Chief Complaint: Complaint ED Provider: Zhang Chavez Dx/Rx/DC Orders Clinical Impression: Acute UTI, Paraplegia, Chronic suprapubic catheter Instructions: Urinary Tract Infections in Men, ED Lima Catheter, Care Prescriptions: New cefdinir 300 mg capsule 300 mg PO Q12H Qty: 14 0RF No Action baclofen 20 MG tablet 20 mg PO TID Patient Comments: MUSCLE SPASMS multivitamin with folic acid [Thera] 1 TABLET tablet 1 tab PO LUNCH Patient Comments: SUPPLEMENT gabapentin 100 MG capsule 300 mg PO TID Patient Comments: NEUROPATHY nortriptyline 50 MG capsule 100 mg PO QHS ascorbic acid (vitamin C) [Vitamin C] 1,000 mg Tablet 1 g PO DAILY venlafaxine 75 mg Tablet 150 mg PO DAILY docusate sodium 100 mg Capsule 100 mg PO BID cholecalciferol (vitamin D3) [Vitamin D3] 50 mcg (2,000 unit) Capsule 50 mcg PO DAILY loratadine 10 mg Capsule 10 mg PO DAILY carvedilol 6.25 mg Tablet 6.25 mg PO BID 30 Days Qty: 60 0RF aspirin 81 mg Tablet,Delayed Release (Dr/Ec) 81 mg PO BREAKFAST 30 Days Qty: 30 0RF Eliquis 2.5 mg Tablet 2.5 mg PO BID 30 Days Qty: 60 0RF ondansetron 4 mg tablet,disintegrating 4 mg PO Q8H PRN (Reason: nausea and vomiting) Qty: 10 0RF buprenorphine 20 mcg/hour patch weekly 1 patch transdermal Q7D Rx Instructions: sundays rosuvastatin [Crestor] 10 mg tablet 20 mg PO DAILY doxycycline monohydrate 100 mg capsule 100 mg PO BID 10 Days Qty: 20 0RF [facility] [Primary [facility] Provider] - Activity Restrictions/Additional Instructions: Your suprapubic cath was exchanged 18 [place] placed with urine output. Urine culture pending. Taking finish antibiotic as scribed. Follow-up with your urology team. Print Language: Martiniquais Disposition Disposition: Home, Self Care Discharge Date/Time: 11/01/24 19:50
[2024-11-01 15:02] LABS: Bacteria 0 SEEN /hpf (None Seen); Mucous, Urine 0 SEEN /hpf (<or=2+); Red Blood Cells-Urine 0 SEEN /hpf (0-5); Squamous Epithelial Cells - UA 0 SEEN /hpf (0-5)
[2024-11-01 15:04] LABS: Color, Urine Yellow (Yellow); Glucose, Dipstick Normal (Normal); Ketone-Dipstick Negative (Negative); Leukocyte Esterase-Dipstick 500 /ul (Negative); Nitrite-Dipstick Positive (Negative); Occult Blood-Urine 50 /ul (Negative); Protein-Dipstick 100 mg/dl (Negative); Urine Bilirubin Dipstick Negative (Negative); Urine Clarity Clear (Clear); Urine Urobilinogen Normal (Normal)
[2024-11-01 15:08] LABS: Amorphous Sediment 1+
[2024-11-01 15:09] LABS: White Blood Cells 0-5 SEEN /hpf (0-5)
[2024-11-01] MEDS: Cefdinir 300 MG Capsule PO (15:40)
[2024-11-01 16:11] VITALS: BP 138/99; PULSE 79; RESP 18; O2SAT 95
[2024-11-01 16:30] VITALS: BP 138/99; PULSE 79; RESP 18; TEMP 36.8; O2SAT 95
[2024-11-01 18:00] VITALS: BP 132/84; PULSE 82; RESP 16; O2SAT 96
== END 2024-11-01 19:50 | disposition home or self-care (01) ==
PROVIDERS: Emergency Provider Emergency Medicine; Visit Provider Emergency Medicine
DX: N39.0 Urinary tract infection, site not specified (principal); G82.20 Paraplegia, unspecified; Z93.3 Colostomy status; I25.10 Atherosclerotic heart disease of native coronary artery without angina pectoris; Z95.5 Presence of coronary angioplasty implant and graft; Z96.0 Presence of urogenital implants; Z79.01 Long term (current) use of anticoagulants; Z79.82 Long term (current) use of aspirin; Z79.899 Other long term (current) drug therapy; Z87.891 Personal history of nicotine dependence
CPT/HCPCS: 81001; 87077; 87086; 87088; 87184; 87186; 99284

== ENCOUNTER 2024-11-03 11:27 | Inpatient (IN) | payer OTHER, SELFPAY ==
[2024-11-03] VITALS (10 sets, daily range): BP systolic 113–182; BP diastolic 72–100; PULSE 66–81; RESP 12–18; TEMP 36.4–36.9; O2SAT 94–100; BMI 27.7; BMI 24.9
--- OUTSIDE RECORDS SUMMARY | 2024-11-03 11:43 | XMS RPT_ITS | CCD ---
Author Organization [facility] Care Team Providers Care Account Installation Specialist Name Role Phone PROVIDER, UNKNOWN Unavailable Unavailable No, PCP Unavailable Unavailable Gajulapalli, Chivo Unavailable Unavailable [facility] Unavailable Unavail able [facility] Unavailable Unavail able [facility] Unavailable Unavail able [facility] Unavailable Unavail able [facility] Unavailable Unavail able [place] Primary Care Provider UnavailDr. Adan Santa Emergency Provider Dr. Lorraine Quinonez Admit Provider Dr. Lorraine Quinonez Referring Provider Dr. Zackary Costello Other Provider Dr. John Ponce Other Provider Dr. Alberto Candelario Attending Provider Dr. John Ponce Attending Provider JAMEY HUYNH Primary Care UnavailJamey Weiss MD Primary Care Provider [place] Primary Care Provider UnavailDr. Alma Rosa Isaacs DO Emergency Provider Dr. Ronak Quiroz DO Admit Provider Unavail able Dr. Ronak Quiroz DO Other Provider Unavail able Adis MARR, Dr. Farmer Attending Provider Dr. Maulik Jenkins MD Other Provider [place] Primary Care Provider UnavailDr. Darian Park MD Other Provider Dr. Christian Merlos MD Emergency Provider Dr. Richie Borden DO Attending Provider Dr. Richie Borden DO Emergency Provider Oscar NARVAEZ, Dr. Gómez Attending Provider Oscar NARVAEZ, Dr. Gómez Emergency Provider Ray NARVAEZ, Dr. Arellano Emergency Provider [facility], [place] [facility], Dr. Arellano Attending Provider Kathy DO, Dr. Holcomb [facility] [place] [facility] Unavailable Ronak Quiroz Consulting Unavailable Ronak Quiroz Admitting Unavailable Darian Arceo Attending [facility] Un[facility] Adan Bell Attending Unavailable Hema [facility]-Baptiste [facility] [place] [facility] de Ronak Cui Consulting [facility] Unavailable de Ronak Cui Admitting Unavailable Darian Arceo Attending Unavailable Darian Arceo Consulting Unavailable Maulki Jenkins Unavailable Ronak Quiroz Consulting Unavailable Ronak Quiroz Admitting [facility] Unavailable de Ronak Cui Attending Unavailable Darian Arceo Attending Unavailable Darian Arceo Consulting Unavailable Ronak Quiroz Attending [facility] Un[facility] Richie Borden Attending Unavailable Rico Moore Attending [facility]available Zhang Chavez Attending Unavailable Ronak Quiroz Consulting [facility] Un[facility] Ronak Quiroz Admitting Unavailable Darian Arceo Attending Unavailable Maulik Jenkins Consulting Unavailable Medications Current Medications Medication Drug Class(es) Dates Sig (Normalized) Sig (Original) apixaban 2.5 mg oral tablet (6 sources) Factor Xa Inhibitor Start: 06-29-2021 take 1 tablet by mouth twice daily Apixaban (Eliquis) 2.5 mg Tablet Active 2.5 mg PO TWICE A DAY 60 June 29, 2021 1:00am On Hold: not confirmed ascorbic acid 1000 mg oral tablet (12 sources) Vitamin C Start: 06-28-2021 take 1 g by mouth once daily Ascorbic Acid (Vitamin C) (Vitamin C) 1,000 mg Tablet Active 1 g PO DAILY June 28, 2021 1:00am Start: 01-19-2019 End: 01-21-2019 take 1 tablet by mouth three times daily Ascorbic Acid (Vitamin C) 1,000 MG tablet Discontinued 1000 mg PO THREE TIMES A DAY January 19, 2019 12:00am January 21, 2019 3:55pm aspirin 81 mg delayed release oral tablet (6 sources) Platelet Aggregation Inhibitor, Nonsteroidal Anti-inflammatory Drug Start: 06-29-2021 take 1 tablet by mouth at breakfast Aspirin 81 mg Tablet,Delayed Release (Dr/Ec) Active 81 mg PO WITH BREAKFAST June 29, 2021 1:00am baclofen 20 mg oral tablet (7 sources) gamma-Aminobutyric Acid-ergic Agonist Start: 02-26-2013 take 1 tablet by mouth three times daily Baclofen 20 MG tablet Active 20 mg PO THREE TIMES A DAY February 26, 2013 12:00am 168 hr buprenorphine 0.02 mg/hr transdermal system (4 sources) Partial Opioid Agonist Start: 09-11-2024 apply 20 ug transdermal route every week Buprenorphine 20 mcg/hour patch weekly Active 1 NMA TD Q7D September 11, 2024 12:00am sundays Start: 06-11-2024 End: 09-11-2024 apply 10 ug transdermal route every week Buprenorphine 10 mcg/hour patch weekly Discontinued 1 NMA TD Q7D June 11, 2024 1:00am September 11, 2024 8:38pm carvedilol 6.25 mg oral tablet (6 sources) alpha-Adrenergic Pedro, beta-Adrenergic Pedro Start: 06-29-2021 take 1 tablet by mouth twice daily Carvedilol 6.25 mg Tablet Active 6.25 mg PO TWICE A DAY June 29, 2021 1:00am cefdinir 300 mg oral capsule (1 source) Cephalosporin Antibacterial Start: 11-01-2024 take 1 capsule by mouth every twelve hours Cefdinir 300 mg capsule Active 300 mg PO Q12H November 01, 2024 12:00am cholecalciferol 0.05 mg oral capsule (6 sources) Vitamin D Start: 06-28-2021 take 1 capsule by mouth once daily Cholecalciferol (Vitamin D3) (Vitamin D3) 50 mcg (2,000 unit) Capsule Active 50 ug PO DAILY June 28, 2021 1:00am docusate sodium 100 mg oral capsule (6 sources) Start: 06-28-2021 take 1 capsule by mouth twice daily Docusate Sodium 100 mg Capsule Active 100 mg PO TWICE A DAY June 28, 2021 1:00am doxycycline monohydrate 100 mg oral capsule (10 sources) Tetracycline-class Drug Start: 07-13-2024 take 1 capsule by mouth twice daily Doxycycline Monohydrate 100 mg capsule Active 100 mg PO TWICE A DAY 17 03July 13, 2024 1:00am Start: 06-16-2024 End: 06-19-2024 take 1 capsule by mouth twice daily Doxycycline Hyclate 100 mg capsule Discontinued 100 mg PO TWICE A DAY June 16, 2024 1:00am June 19, 2024 12:42pm Start: 06-28-2021 End: 06-14-2024 take 1 capsule by mouth twice daily Doxycycline Monohydrate 100 mg Capsule Discontinued 100 mg PO TWICE A DAY June 28, 2021 1:00am June 14, 2024 12:28pm DULoxetine 60 mg delayed release oral capsule (1 source) Serotonin and Norepinephrine Reuptake Inhibitor take 1 capsule by mouth once daily DULoxetine (CYMBALTA) 60 mg capsule Indications: Acute transverse myelitis (HCC) , Paraplegia (HCC) , Contracture of joint of multiple sites , Spasticity , Neurogenic bladder , History of creation of ostomy (HCC) Take 60 mg by mouth once daily. Active gabapentin 100 mg oral capsule (7 sources) Anti-epileptic Agent Start: 04-19-20 take 3 capsules by mouth three times daily Gabapentin 100 MG capsule Active 300 mg PO THREE TIMES A DAY April 19, 2013 1:00am Start: 04-19-2013 take 900 mg by mouth three times daily Gabapentin Active 900 MG PO THREE TIMES A DAY April 19, 2013 1:00am take 1 capsule by [facility] three times daily gabapentin (NEURONTIN) 400 mg capsule Indications: Acute transverse myelitis (HCC) , Paraplegia (HCC) , Contracture of joint of multiple sites , Spasticity , Neurogenic bladder , History of creation of ostomy (HCC) Take 400 mg by mouth three times daily. Active loratadine 10 mg oral capsule (6 sources) Start: 06-28-2021 take 1 capsule by mouth once daily Loratadine 10 mg Capsule Active 10 mg PO DAILY June 28, 2021 1:00am multivitamin tablet (1 source) take 1 tablet by mouth once daily multivitamin tablet Indications: Acute transverse myelitis (HCC) , Paraplegia (HCC) , Contracture of joint of multiple sites , Spasticity , Neurogenic bladder , History of creation of ostomy (HCC) Take 1 tablet by mouth once daily. Active Multivitamin With Folic Acid (Thera) 1 TABLET tablet (6 sources) Start: 02-26-2013 take 1 tablet by mouth at lunch Multivitamin With Folic Acid (Thera) 1 TABLET tablet Active 1 TABLET PO WITH LUNCH February 26, 2013 11:22am Start: 02-26-2013 take 1 tablet by mouth at lun h Multivitamin With Folic Acid (Thera) 1 TABLET tablet Active 1 {tbl} PO WITH LUNCH February 26, 2013 12:00am Start: 02-26-2013 take 1 tablet by mouth at lun h Multivitamin With Folic Acid (Thera) 1 TABLET tablet Active 1 TABLET PO WITH LUNCH February 26, 2013 12:00am Start: 02-26-2013 take 1 tablet by mouth at lun h Multivitamin With Folic Acid (Thera) 1 TABLET tablet Active 1 TABLET PO WITH LUNCH February 25, 2013 11:00pm nortriptyline 50 mg oral capsule (6 sources) Tricyclic Antidepressant Start: 01-19-2019 take 1 capsule by mouth at bedtime Nortriptyline 50 MG capsule Active 100 mg PO AT BEDTIME January 19, 2019 12:00am Start: 01-19-2019 take 100 mg by mouth at bedtim e Nortriptyline Active 100 MG PO AT BEDTIME January 19, 2019 12:00am rosuvastatin calcium 10 mg oral tablet (14 sources) HMG-CoA Reductase Inhibitor Start: 06-16-2024 take 2 tablets by mouth once daily Rosuvastatin (Crestor) 10 mg tablet Active 20 mg PO DAILY June 16, 2024 1:00am Start: 06-29-2021 End: 06-16-2024 take 1 tablet by mouth once daily Rosuvastatin (Crestor) 10 mg tablet Discontinued 10 mg PO DAILY June 29, 2021 1:00am June 16, 2024 7:15pm Start: 06-28-2021 End: 06-29-2021 take 1 tablet by mouth at bedtime Rosuvastatin 5 mg Tablet Discontinued 5 mg PO AT BEDTIME June 28, 2021 1:00am June 29, 2021 12:03pm venlafaxine 75 mg oral tablet (6 sources) Serotonin and Norepinephrine Reuptake Inhibitor Start: 06-28-2021 take 2 tablets by mouth once daily Venlafaxine 75 mg Tablet Active 150 mg PO DAILY June 28, 2021 1:00am Start: 06-28-2021 take 75 mg by mouth once daily Venlafaxine Active 75 MG PO DAILY June 28, 2021 1:00am Completed/Discontinued Medications Medication Drug Class(es) Dates Sig (Normalized) Sig (Original) acetaminophen 325 mg / oxyCODONE hydrochloride 10 mg oral tablet (18 sources) Opioid Agonist Start: 03-16-2017 End: 03-22-2017 take 10-325 mg by mouth four times daily as needed for pain Oxycodone-Acetamino phen 1 EACH tablet Discontinued 10 - 325 mg PO 4 TIMES DAILY NEEDED as needed for Mod-Severe Pain () March 16, 2017 12:00am March 22, 2017 1:40pm Start: 03-16-2017 End: 03-22-2017 take 10-325 mg by mouth four times daily as needed Oxycodone-Acetaminophen Discontinued 10 - 325 MG PO 4 TIMES DAILY NEEDED March 16, 2017 12:00am March 22, 2017 1:40pm Start: 06-10-2016 End: 03-16-2017 Oxycodone-Acetaminophen 1 EA CH tablet Discontinued 1 NMA PO 5 TIMES DAILY as needed for Pain June 10, 2016 1:00am March 16, 2017 9:24am Start: 06-10-2016 End: 03-16-2017 Oxycodone-Acetaminophen Disc ontinued 1 EACH PO 5 TIMES DAILY June 10, 2016 1:00am March 16, 2017 9:24am Start: 02-26-2013 End: 04-19-2013 Oxycodone-Acetaminophen 1 TA BLET tablet Discontinued 1 - 2 {tbl} PO EVERY 4 HOURS NEEDED as needed for Pain February 26, 2013 12:00am April 19, 2013 9:41am Start: 02-26-2013 End: 04-19-2013 take 1 tablet by mouth every four hours as needed Oxycodone-Acetaminophen Discontinued 1 - 2 TABLET PO EVERY 4 HOURS NEEDED February 26, 2013 12:00am April 19, 2013 9:41am amoxicillin 875 mg / clavulanate 125 mg oral tablet (12 sources) Penicillin-class Antibacterial Start: 03-08-2017 End: 03-16-2017 Amoxicillin/Potassium Clav (Amox-Clav 875-125 Mg Tablet) 1 EACH tablet Discontinued 1 {tbl} PO TWICE A DAY March 08, 2017 12:00am March 16, 2017 9:23am Start: 06-03-2015 End: 09-07-2015 take 1 tablet by mouth every twelve hours Amoxicillin-Pot Clavulanate 875 MG tablet Discontinued 875 mg PO Q12H June 03, 2015 1:00am September 07, 2015 9:19am Zayue-Vuql-Mpdcg-Collag-Mv-M in (Mamadou (With Collagen)) 1 PACKET Packet (6 sources) Start: 03-22-2017 End: 05-01-2017 take 1 dose by mouth twice daily at mealtime Quoig-Wpyt-Dilrn-Shipxz-Fn-Gvb (Mamadou (With Collagen)) 1 PACKET Packet Discontinued 1 PACKET PO TWICE DAILY WITH MEALS March 22, 2017 1:37pm May 01, 2017 12:37pm Start: 03-22-2017 End: 05-01-2017 take 1 dose by mouth twice daily at mealtime Lnynl-Levf-Gmzmc-Mxotvu-Ng-Bod (Mamadou (W ith Collagen)) 1 PACKET Packet Discontinued 1 NMA PO TWICE DAILY WITH MEALS March 22, 2017 12:00am May 01, 2017 12:37pm Start: 03-22-2017 End: 05-01-2017 take 1 dose by mouth twice daily at mealtime Qhsak-Bkgr-Wccux-Vzzftm-Sr-Jbd (Mamadou (W ith Collagen)) 1 PACKET Packet Discontinued 1 PACKET PO TWICE DAILY WITH MEALS March 22, 2017 12:00am May 01, 2017 12:37pm Start: 03-22-2017 End: 05-01-2017 take 1 dose by mouth twice daily at mealtime Tlvyt-Futo-Cqadu-Tnkjkp-Vk-Heq (Mamadou (W ith Collagen)) 1 PACKET Packet Discontinued 1 PACKET PO TWICE DAILY WITH MEALS March 21, 2017 11:00pm May 01, 2017 11:37am azithromycin 250 mg oral tablet (2 sources) Macrolide Antimicrobial Start: 07-13-2024 End: 09-11-2024 Azithromycin (Zithromax Z-Elio) 250 mg tablet Discontinued 0 PO .COMPLEX 6 July 13, 2024 1:00am September 11, 2024 8:38pm For 250 mg dose pack: take 500 mg today (day 1), then 250 mg for 4 days (days 2-5) ciprofloxacin 500 mg oral tablet (10 sources) Quinolone Antimicrobial Start: 06-06-2022 End: 06-14-2024 take 1 tablet by mouth twice daily Ciprofloxacin Hcl 500 mg tablet Discontinued 500 mg PO TWICE A DAY June 06, 2022 1:00am June 14, 2024 12:28pm Start: 04-22-2016 End: 05-11-2016 take 1 tablet by mouth twice daily Ciprofloxacin Hcl 500 MG tablet Discontinued 500 mg PO TWICE A DAY April 22, 2016 1:00am May 11, 2016 3:17pm 0.4 ml enoxaparin sodium 100 mg/ml prefilled syringe (6 sources) Low Molecular Weight Heparin Start: 03-16-2017 End: 05-01-2017 Enoxaparin 40 MG/0.4 ML syringe Discontinued 40 mg SC DAILY@1000 March 16, 2017 12:00am May 01, 2017 12:36pm 72 hr fentaNYL 0.012 mg/hr transdermal system (6 sources) Opioid Agonist Start: 04-19-2013 End: 12-11-2013 Fentanyl 12 MCG patch Discontinued 12 ug TRANSDERM. Every 3 Days April 19, 2013 1:00am December 11, 2013 2:48pm Food Supplemt, Lactose-Reduced (Ensure High Protein) 237 ML Liquid (6 sources) Start: 02-26-2013 End: 05-01-2013 take 1 mL by mouth twice daily Food Supplemt, Lactose-Reduced (Ensure High Protein) 237 ML Liquid Discontinued 237 ML PO TWICE A DAY February 26, 2013 11:22am May 01, 2013 12:01pm Start: 02-26-2013 End: 05-01-2013 take 1 mL by mouth twice daily Food Supplemt, Lactose-Reduced (Ensure High Protein) 237 ML Liquid Discontinued 237 mL PO TWICE A DAY February 26, 2013 12:00am May 01, 2013 12:01pm Start: 02-26-2013 End: 05-01-2013 take 1 mL by mouth twice daily Food Supplemt, Lactose-Reduced (Ensure High Protein) 237 ML Liquid Discontinued 237 ML PO TWICE A DAY February 26, 2013 12:00am May 01, 2013 12:01pm Start: 02-26-2013 End: 05-01-2013 take 1 mL by mouth twice daily Food Supplemt, Lactose-Reduced (Ensure High Protein) 237 ML Liquid Discontinued 237 ML PO TWICE A DAY February 25, 2013 11:00pm May 01, 2013 11:01am lisinopril 2.5 mg oral tablet (12 sources) Angiotensin Converting Enzyme Inhibitor Start: 07-06-2021 End: 09-11-2024 take 1 tablet by mouth once daily Lisinopril 2.5 mg tablet Discontinued 2.5 mg PO DAILY July 06, 2021 1:00am September 11, 2024 8:40pm Start: 06-29-2021 End: 07-06-2021 take 1 tablet by mouth once daily Lisinopril 5 mg Tablet Discontinued 5 mg PO DAILY June 29, 2021 1:00am July 06, 2021 5:02pm LORazepam 1 mg oral tablet (7 sources) Benzodiazepine Start: 07-14-2024 End: 09-11-2024 take 1 tablet by mouth three times daily as needed Lorazepam 1 mg tablet Discontinued 1 mg PO THREE TIMES A DAY as needed for insomnia July 14, 2024 11:34am September 11, 2024 8:40pm Start: 05-22-2022 End: 06-16-2024 take 1 tablet by mouth twice daily as needed for nausea and vomiting Lorazepam (Ativan) 0.5 mg tablet Discontinued 0.5 mg PO TWICE A DAY as needed for nausea and vomiting May 22, 2022 8:39pm June 16, 2024 7:09pm ondansetron 4 mg disintegrating oral tablet (11 sources) Serotonin-3 Receptor Antagonist Start: 07-14-2024 End: 09-11-2024 take 1 tablet by mouth every six hours as needed for nausea Ondansetron 4 mg tablet,disintegrating Discontinued 4 mg PO EVERY 6 HOURS NEEDED as needed for Nausea July 14, 2024 1:00am September 11, 2024 8:40pm Start: 06-06-2022 take 1 tablet by aaron th every eight hours as needed for nausea and vomiting Ondansetron 4 mg tablet,disintegrating Active 4 mg PO Q8H as needed for nausea and vomiting June 06, 2022 1:00am Start: 05-22-2022 End: 06-16-2024 take 1 tablet by mouth every six hours as needed for nausea and vomiting Ondansetron 4 mg tablet,disintegrating Discontinued 4 mg PO EVERY 6 HOURS as needed for nausea and vomiting May 22, 2022 1:00am June 16, 2024 7:09pm oxyCODONE hydrochloride 5 mg oral tablet (6 sources) Opioid Agonist Start: 03-22-2017 End: 03-24-2017 take 2 tablets by mouth every six hours as needed for pain Oxycodone 5 MG tablet Discontinued 10 mg PO EVERY 6 HOURS NEEDED as needed for Severe Pain (6-10/10) March 22, 2017 1:37pm March 24, 2017 9:03am Start: 03-22-2017 End: 03-24-2017 take 10 mg by mouth every six hours as needed Oxycodone Discontinued 10 MG PO EVERY 6 HOURS NEEDED March 22, 2017 1:37pm March 24, 2017 9:03am piperacillin 3000 mg / tazobactam 375 mg injection (8 sources) Penicillin-class Antibacterial, beta Lactamase Inhibitor Start: 06-14-2024 End: 06-19-2024 Ftlkxebvfsdo-Ypvjlldaqg-Shtp rs (Zosyn In Dextrose (Iso-Osm)) 3.375 gram/50 mL piggyback Discontinued 3.375 g IV Q8H June 14, 2024 1:00am June 19, 2024 12:42pm dx: pseudomonas infection. Midline care per protocol. Start: 03-16-2017 End: 05-01-2017 take 3.375 g intravenously every six hours Uoaldazakdxy-Dmegdlhpqr-Coxtkz (Zosyn) 3.375 GM/50 ML Ml Discontinued 3.375 g IV EVERY 6 HOURS March 16, 2017 12:00am May 01, 2017 12:37pm ticagrelor 90 mg oral tablet (6 sources) Start: 06-29-2021 End: 06-16-2024 take 1 tablet by mouth twice daily Ticagrelor (Brilinta) 90 mg Tablet Discontinued 90 mg PO TWICE A DAY 60 June 29, 2021 1:00am June 16, 2024 7:12pm vancomycin 500 mg injection (12 sources) Glycopeptide Antibacterial Start: 05-06-2013 End: 05-10-2013 take 1 capsule by mouth every six hours Vancomycin (Vancocin) 125 MG capsule Discontinued 125 mg PO EVERY 6 HOURS May 06, 2013 1:00am May 10, 2013 1:53pm Start: 05-06-2013 End: 05-10-2013 Vancomycin In Dextrose 5 % 1 ,000 MG/200 ML Bag Discontinued 1000 mg IV Q12H May 06, 2013 1:00am May 10, 2013 1:54pm Problems Active Problems Problem Classification Problem Date Documented Da te Episodic/Chronic Acute myocardial infarction (7 sources) Myocardial infarction; Translations: [Non-ST elevation (NSTEMI) myocardial infarction] Chronic Alcohol-related disorders (6 sources) Continuous chronic alcoholism; Translations: [Alcohol dependence, uncomplicated] 07-30-2017 Chronic Chronic ulcer of skin (20 sources) Pressure ulcer of sacral region, stage 4; Translations: [Pressure ulcer of contiguous site of back, buttock and hip, stage 4] Onset: 05-19-2017 06-28-2021 Chronic Comment on above: L89.314 Coronary atherosclerosis and other heart disease (6 sources) Coronary atherosclerosis; Translations: [Atherosclerotic heart disease of teller coronary artery without angina pectoris] 06-28-2021 Chronic Diseases of white blood cells (2 sources) Elevated white blood cell count, unspecified; Translations: [Elevated white blood cell count, unspecified] Onset: 05-19-2017 Chronic Essential hypertension (2 sources) Hypertensive disorder; Translations: [Essential (primary) hypertension] 07-21-2024 Chronic Fever of unknown origin (6 sources) Fever; Translations: [Fever, unspecified] 06-28-2021 Episodic Genitourinary symptoms and ill-defined conditions (3 sources) Other artificial openings of urinary tract status; Translations: [Suprapubic urinary catheter in situ] Onset: 05-19-2017 11-01-2024 Chronic Genitourinary symptoms and ill-defined conditions (6 sources) Blood in urine; Translations: [Hematuria, unspecified] 06-28-2021 Episodic Infective arthritis and osteomyelitis (except that caused by tuberculosis or sexually transmitted di (10 sources) Osteomyelitis of vertebra, sacral and sacrococcygeal region; Translations: [Osteomyelitis of right femur] Onset: 05-19-2017 06-28-2021 Chronic Nausea and vomiting (5 sources) Nausea; Translations: [Nausea] 05-30-2022 Episodic Open wounds of head; neck; and trunk (2 sources) Finding of sacral region; Translations: [Unspecified open wound of lower back and pelvis without penetration into retroperitoneum, initial encounter] 09-11-2024 Episodic Other aftercare (6 sources) Wound finding; Translations: [Encounter for other specified aftercare] 09-17-2021 Episodic Other aftercare (1 source) Encounter for change or removal of nonsurgical wound dressing; Translations: [Encounter for change or removal of nonsurgical wound dressing] Onset: 09-18-2024 Episodic Other diseases of bladder and urethra (2 sources) Neuromuscular dysfunction of bladder, unspecified; Translations: [Neuromuscular dysfunction of bladder, unspecified] Onset: 05-19-2017 Chronic Other diseases of bladder and urethra (6 sources) Neurogenic bladder; Translations: [Neuromuscular dysfunction of bladder, unspecified] 06-28-2021 Chronic Other gastrointestinal disorders (2 sources) Colostomy status; Translations: [Colostomy status] Onset: 05-19-2017 Chronic Other injuries and conditions due to external causes (6 sources) Wound discharge; Translations: [Other injury of unspecified body region, initial encounter] 09-17-2021 Episodic Other lower respiratory disease (5 sources) Nodule of lung; Translations: [Solitary pulmonary nodule] 05-30-2022 Episodic Other nervous system disorders (2 sources) Polyneuropathy, unspecified; Translations: [Polyneuropathy, unspecified] Onset: 05-19-2017 Chronic Other nervous system disorders (3 sources) Metabolic encephalopathy; Translations: [Metabolic encephalopathy] 06-22-2024 Chronic Other nervous system disorders (1 source) Metabolic encephalopathy; Translations: [Metabolic encephalopathy] Onset: 06-14-2024 Chronic Other nervous system disorders (12 sources) Transverse myelopathy syndrome; Translations: [Acute transverse myelitis in demyelinating disease of central nervous system] 07-30-2017 Episodic Comment on above: Complicated by parap legia; decubitus ulcerations requiring surgical debridement and colostomy Other non-traumatic joint disorders (3 sources) Hip pain; Translations: [Pain in unspecified hip] 06-12-2024 Episodic Paralysis (11 sources) Paraplegia, unspecified; Translations: [Paraplegia] Onset: 05-19-2017 05-22-2022 Chronic Residual codes; unclassified (6 sources) Heavy drinker ; Translations: [Other specified health status] 06-28-2021 Episodic Residual codes; unclassified (8 sources) Tobacco user; Translations: [Tobacco use] 10-09-2023 Episodic Residual codes; unclassified (2 sources) Insomnia; Translations: [Insomnia, unspecified] 07-22-2024 Episodic Residual codes; unclassified (2 sources) Other specified health status; Translations: [Failure of outpatient treatment] 06-16-2024 Episodic Septicemia (4 sources) Sepsis, unspecified organism; Translations: [Sepsis due to Escherichia coli [E. coli]] Onset: 05-19-2017 Septicemia (except in labor) (6 sources) Sepsis due to urinary tract infection; Translations: [Sepsis, unspecified organism] 06-28-2021 Episodic Substance-related disorders (2 sources) Nicotine dependence, cigarettes, uncomplicated; Translations: [Nicotine dependence, cigarettes, uncomplicated] Onset: 05-19-2017 Chronic Unclassified (1 source) Onset: 03-23-2017 Viral infection (5 sources) Acute viral disease; Translations: [Viral infection, unspecified] 05-30-2022 Episodic Past or Other Problems Problem Classification Problem Date Documented Da te Episodic/Chronic Administrative/social admission (2 sources) Bed confinement status; Translations: [Bed confinement status] Onset: 05-19-2017 Episodic Bacterial infection; unspecified site (1 source) Pseudomonas (aeruginosa) (mallei) (pseudomallei) as the cause of diseases classified elsewhere; Translations: [Pseudomonas (aeruginosa) (mallei) (pseudomallei) as the cause of diseases classified elsewhere] Onset: 06-19-2024 Episodic Complication of device; implant or graft (7 sources) Other mechanical complication of indwelling urethral catheter, initial encounter; Translations: [Obstruction of Lima catheter] Onset: 07-08-2024 06-28-2021 Episodic Coronary atherosclerosis and other heart disease (1 source) Presence of coronary angioplasty implant and graft; Translations: [Presence of coronary angioplasty implant and graft] Onset: 06-19-2024 Episodic Fluid and electrolyte disorders (10 sources) Dehydration; Translations: [Hypokalemia] Onset: 05-19-2017 07-22-2024 Episodic Fracture of neck of femur (hip) (9 sources) Closed fracture of hip; Translations: [Fracture of unspecified part of neck of right femur, subsequent encounter for closed fracture with nonunion] Onset: 06-19-2024 06-11-2024 Episodic Malaise and fatigue (14 sources) Lethargy; Translations: [Other fatigue] Onset: 06-19-2024 06-12-2024 Episodic Nonspecific chest pain (4 sources) Chest pain; Translations: [Chest pain, unspecified] Onset: 07-25-2024 10-09-2023 Episodic Other circulatory disease (2 sources) Hypotension, unspecified; Translations: [Hypotension, unspecified] Onset: 05-19-2017 Episodic Other injuries and conditions due to external causes (1 source) Unspecified injury of right hip, initial encounter; Translations: [Unspecified injury of right hip, initial encounter] Onset: 07-08-2024 Episodic Other non-traumatic joint disorders (2 sources) Effusion, right hip; Translations: [Effusion, right hip] Onset: 05-19-2017 Episodic Other non-traumatic joint disorders (1 source) Pain in right hip; Translations: [Pain in right hip] Onset: 06-14-2024 Episodic Pneumonia (except that caused by tuberculosis or sexually transmitted disease) (14 sources) Pneumonia; Translations: [Pneumonia, unspecified organism] Onset: 06-14-2024 01-19-2019 Episodic Residual codes; unclassified (1 source) Insomnia, unspecified; Translations: [Insomnia, unspecified] Onset: 07-25-2024 Episodic Residual codes; unclassified (1 source) Tobacco use; Translations: [Tobacco use] Onset: 06-19-2024 Episodic Substance-related disorders (8 sources) Marijuana user; Translations: [Cannabis use, unspecified, uncomplicated] Onset: 06-14-2024 06-28-2021 Episodic Unclassified (6 sources) Bilateral Ischial Ulcers 07-30-2017 Unclassified (6 sources) malnutrition, mild 07-30-2017 Unclassified (6 sources) osteomyelitis rt heel, acute and chronic 07-30-2017 Urinary tract infections (13 sources) Acute cystitis; Translations: [Acute cystitis with hematuria] Onset: 06-19-2024 06-12-2024 Episodic Results Test Name Value Interpretation Reference Range Facility Urine Cultureon 11-02-2024 U[facility] Identification and sensitivity to follow. Gram negative yelena [place] Count >100,000 Normal [facility] Comment on above: Performed By: #### L 400.0001, M100.2200 ####[facility] [address] [place], [address] Amorphous sediment detection in urine sediment by light microscopyOrdered By: Zhang Chavez on 11-01-2024 Amorphous sediment LM Ql (Urine sed) 1+ [facility] Bilirubin Test strip Ql (U)O rdered By: Zhang Chavez on 11-01-2024 Bilirubin Ql (U) Negative Negative [facility] Emergency Department Summary on 11-01-2024 Emergency Department Summary [facility] Medical Records Department [address] [place] [address] Emergency Department Summary 11/01/24 MR#: [id number] Acct: [id number] Name: BAUTISTA RUFFIN Rep #: [id number] : 1960 64 From: Zhang Arteaga PCP: [facility] Hospital Status:DEP ER Location: ED HPI History of Present Illness Chief Complaint: Complaint Narrative Narrative: 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 Currently with suprapubic cath and colostomy secondary to his paraplegia. He is followed by the [place]. [place] changes beginning of each month. This was changed in the last month. Reported nursing noted concerns for changes in his urine color that was reported milky. He denies fevers or chills. States with typical infections he would have chills. No antibiotic allergies. He stays at home with caregivers. Sent here to rule out infection. 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 Neurogenic bladder Benign essential hypertension Home Medications ???Medication ???Instructions ???Recorded ???Last Taken ???Type baclofen 20 mg tablet 20 mg PO TID muscle spasms 3 06/27/21 History multivitamin with folic acid 400 1 tab PO LUNCH supplemeny 02/26/13 06/27/21 History mcg tablet (Thera) gabapentin 100 mg capsule 300 mg PO TID neuropathy 04/19/13 06/27/21 History nortriptyline 50 mg capsule 100 mg PO QHS anxiety 01/19/19 History ascorbic acid (vitamin C) 1,000 mg 1 g PO DAILY Check with primary 06/28/21 Unknown History tablet (Vitamin C) doctor cholecalciferol (vitamin D3) 50 50 mcg PO DAILY Check with primary 06/28/21 Unknown History mcg (2,000 unit) capsule (Vitamin doctor D3) docusate sodium 100 mg capsule 100 mg PO BID Check with primary 0 06/28/21 Unknown History doctor loratadine 10 mg capsule 10 mg PO DAILY Check with primary 06/28/21 Unknown History doctor venlafaxine 75 mg tablet 150 mg PO DAILY Check with primary 06/28/21 Unknown History doctor apixaban 2.5 mg tablet (Eliquis) 2.5 mg PO BID 30 days #60 tabs 06/19 Unknown Rx Held on 09/11/24. Instructions: not confirmed aspirin 81 mg tablet,delayed 81 mg PO BREAKFAST heart health 30 06/29/21 Unknown Rx release days #30 tabs carvedilol 6.25 mg tablet 6.25 mg PO BID heart 30 days #60 0 06/29/21 Unknown Rx tabs ondansetron 4 mg disintegrating 4 mg PO Q8H PRN nausea and 3 Unknown Rx tablet vomiting #10 tabs rosuvastatin 10 mg tablet (Crestor) 20 mg PO DAILY 06/16/24 Unknown History doxycycline monohydrate 100 mg 100 mg PO BID 10 days #20 CAPSULES 07/13/24 Unknown Rx capsule buprenorphine 20 mcg/hour weekly 1 patch transdermal Q7D 09/11/24 U nknown History transdermal patch cefdinir 300 mg capsule 300 mg PO Q12H #14 caps 11/01/24 U nknown Rx Allergy/AdvReac Type Severity Reaction Status Date / Time No Known Allergies Allergy Verified 07/14/24 07:10 Family History Father CVA (cerebral vascular accident) Heart disease Myocardial infarction Surgical History History of coronary artery stent placement (06/28/21) History of femoral derotational osteotomy History of appendectomy History of suprapubic catheter Hx of colostomy Colostomy in place Social History household members: spouse Smoking Status: Former smoker alcohol intake: former substance use type: marijuana ROS ROS ED Constitutional Constitutional ED: Denies fever(s) Cardiovascular Cardiovascular: Denies chest pain Respiratory/Chest Respiratory/Chest: Denies cough Gastrointestinal Gastrointestinal: Denies diarrhea or vomiting Genitourinary Genitourinary ED: Reports other Details: Concerns for urinary tract infection Musculoskeletal Musculoskeletal: Denies none Integumentary Denies rash or wounds Neurologic Neurologic: Denies weakness EXAM Physical Exam Const Vital Signs: 11/01/24 14:11 11/01/24 16:11 11/01/24 16:30 Temperature 98.8 F 98.3 F Temperature Source Oral Pulse Rate 80 79 79 Respiratory Rate 16 18 18 Blood Pressure 153/97 H 138/99 H 138/99 H Blood Pressure Mean 115 112 112 Pulse Ox 99 95 95 Oxygen Delivery Method Room Air 11/01/24 18:00 Temperature Temperature Source Pulse Rate 82 Respiratory Rate 16 Blood Pressure 132/84 H Blood Pressu (more content not included)... Normal [facility] Ketones Test strip Ql (U)Ord ered By: Zhang Chavez on 11-01-2024 Ketones Ql (U) Negative Negative [facility] Microscopic analysis of urin e for red blood cells (RBC)Ordered By: Zhang Chavez on 11-01-2024 Microscopic analysis of urine for red blood cells (RBC) 0 SEEN /hpf 0-5 [facility] Mucus LM Ql (Urine sed)Order ed By: Zhang Chavez on 11-01-2024 Mucus Ql (Urine sed) 0 SEEN /hpf [facility] Nitrite Test strip Ql (U)Ord ered By: Zhang Chavez on 11-01-2024 Nitrite Ql (U) Positive High Negative [facility] Protein Test strip Ql (U)Ord ered By: Zhang Chavez on 11-01-2024 Protein Ql (U) 100 mg/dl High Negative [facility] Squamous epithelial cells de tection in urine sediment by light microscopyOrdered By: Zhang Chavez on 11-01-2024 Epithelial cells.squamous LM Ql (Urine sed) 0 SEEN /hpf 0-5 [facility] Urinalysis, Completeon 11-01 WBC 0-5 SEEN Normal 0-5 [facility] Comment on above: Order Comment: GOOD TER SPECIMEN Performed By: #### L 400.0001, M1.2199 ####[facility] [address] [place], [address] AMORPHOUS 1+ Normal [facility] Comment on above: Order Comment: GOOD TER SPECIMEN Performed By: #### L 400.0001, M1.2199 ####[facility] [address] [place], [address] BACTERIA 0 SEEN Normal None Seen [facility] Comment on above: Order Comment: GOOD TER SPECIMEN Performed By: #### L 400.0001, M1.2199 ####[facility] [address] [place], [address] EPI,SQUAMOUS 0 SEEN Normal 0-5 [facility] Comment on above: Order Comment: GOOD TER SPECIMEN Performed By: #### L 400.0001, .2199 ####[facility] [address] [place], [address] Mucus Ql (Urine sed) 0 SEEN Normal [facility] Comment on above: Order Comment: GOOD TER SPECIMEN Performed By: #### L 400.0001, M1.2199 ####[facility] [address] [place], [address] RBC 0 SEEN Normal 0-5 [facility] Comment on above: Order Comment: GOOD TER SPECIMEN Performed By: #### L 400.0001, M1.2199 ####[facility] [address] [place], [address] Urine clarityOrdered By: Terell Chavez on 11-01-2024 Clarity (U) Clear Clear [facility] Urine color determinationOrd ered By: Zhang Chavez on 11-01-2024 Color (U) Yellow Yellow [facility] Urine glucose detectionOrder ed By: Zhang Chavez on 11-01-2024 Glucose Ql (U) Normal mg/dl Normal [facility] Urine leukocyte esterase det ection by dipstickOrdered By: Zhang Chavez on 11-01-2024 Leukocyte esterase Test strip Ql (U) 500 /ul High Negative [facility] Urine pHOrdered By: Zhang Chavez on 11-01-2024 pH (U) 6.0 [pH] 5.0 - 8.0 [facility] Urine sediment bacteria coun t by microscopy (number/high power field)Ordered By: Zhang Chavez on 11-01-2024 Bacteria LM.HPF (Urine sed) [#/Area] 0 /[HPF] None Seen [facility] Urine specific gravity measu rementOrdered By: Zhang Chavez on 11-01-2024 Specific gravity (U) [Rel density] 1.020 1.002-1.03 0 [facility] Urine urobilinogen measureme ntOrdered By: Zhang Chavez on 11-01-2024 Urobilinogen Ql (U) Normal mg/dl Normal [facility] White blood cell countOrdere d By: Zhang Chavez on 11-01-2024 White blood cell count 0-5 SEEN /hpf 0-5 [facility] Culture, Blood (WB)on 2024 CUB Blood cultures x2, from two different sites No growth in 5 days. Normal [facility] Comment on above: Performed By: #### L 500.3400, L501.2450, L100.0100, L500.2500, L501.4020, L300.8000 #### [facility] [address] [facility] [place], [address] Urine Cultureon 09-14-2024 URC Pending Pseudomonas aeruginosa [place] Count 1000-10,000 Pseudomonas aeruginosa: REACTION Cefepime Islt HARMAN 1 Ciprofloxacin Islt HARMAN >=4 R levoFLOXacin Islt HARMAN >=8 R Meropenem Islt HARMAN 1 S Pip+Tazo Islt HARMAN <=4 S Pseudomonas aeruginosa: REACTION Amikacin Islt HARMAN 2 Imipenem Islt HARMAN <=0.5 S Tobramycin Islt HARMAN <=1 S Normal [facility] Comment on above: Performed By: #### M 100.2000, M100.2200, M100.3000, L400.0001 ####[facility] [address] [facility]. [place], [place], [address] Wound Cultureon 09-14-2024 WC #3 Gram positive yelena suggestive of a diphtheroid. Susceptibility not normally performed on this organism Pseudomonas aeruginosa Amount Growth 3+ Staphylococcus aureus Staphylococcus aureus GPR Amount Growth 3+ Gram positive yelena Cefepime Islt HARMAN 2 Ciprofloxacin Islt HARMAN 0.25 S levoFLOXacin Islt HARMAN 1 Meropenem Islt HARMAN <=0.25 S Pip+Tazo Islt HARMAN 8 S Staphylococcus aureus: REACTION cefOXitin Susc Islt NEG Doxycycline Islt HARMAN >=16 R Clindamycin Islt HARMAN >=4 Clindamycin.induced Susc Islt NEG Erythromycin Islt HARMAN >=8 R Gentamicin Islt HARMAN <=0.5 S Linezolid Islt HARMAN 2 S Moxifloxacin Islt HARMAN 4 I Oxacillin Susc Islt 0.5 S Tetracycline Islt HARMAN >=16 R TMP SMX Islt HARMAN <=10 S Vancomycin Islt HARMAN 1 S Normal [facility] Comment on above: Performed By: #### M 100.2000, M100.2200, M100.3000, L400.0001 ####[facility] [address] [place], [address] Gram Stainon 09-12-2024 GS Positive Normal [facility] Comment on above: Performed By: #### M 100.2000, M100.2200, M100.3000, L400.0001 ####[facility] [address] [place], [address] Absolute lymphocyte countOrd ered By: Alex Sheppard on 09-11-2024 Lymphocytes Auto (Unsp spec) [#/Vol] 2.40 10*3/uL 0.83-4.51 [facility] Absolute neutrophil countOrd ered By: Alex Sheppard on 09-11-2024 Neutrophils (Bld) [#/Vol] 7.6 10*3/uL 2.0-7.7 [facility] Activated partial thrombopla stin time (aPTT) in platelet poor plasma by coagulation aOrdered By: Alex Sheppard on 09-11-2024 aPTT Coag (Bld) [Time] 49.7 s High 24.1-36.2 [facility] Comment on above: Performed By: #### L 500.3400, L501.2450, L100.0100, L500.2500, L501.4020, L300.8000 #### [facility] [address] [place], [address] aPTT Coag (PPP) [Time] 49.7 s High 24.1-36.2 [facility] Anion gap in Serum or Plasma Ordered By: Alex Sheppard on 09-11-2024 Anion gap [Moles/Vol] 9 mmol/L 5-15 [facility] Automated blood erythrocyte countOrdered By: Alex Sheppard on 09-11-2024 RBC (Bld) [#/Vol] 5.05 10*6/uL Normal 4.6-6.2 [facility] Comment on above: Performed By: #### L 100.0100, L300.3900, L300.4310, M200.1000, L500.4050, L503.6005 ####[facility] [address] [place], [place], [id number] Automated blood hematocrit ( percentage)Ordered By: Alex Sheppard on 09-11-2024 Hematocrit (Bld) [Volume fraction] 40.9 % Normal 40-54 [facility] Comment on above: Performed By: #### L 100.0100, L300.3900, L300.4310, M200.1000, L500.4050, L503.6005 ####[facility] [address] [place], [address] Automated lymphocyte count a s percentage of total leukocytesOrdered By: Alex Sheppard on 09-11-2024 Lymphocytes/100 WBC (Bld) 20.8 % Normal 19-41 [facility] Comment on above: Performed By: #### L 100.0100, L300.3900, L300.4310, M200.1000, L500.4050, L503.6005 ####[facility] [address] [place], [place], [phone] Lymphocytes/100 WBC Auto (Unsp spec) 20.8 % 19-41 [facility] BUN/creatinine ratioOrdered By: Alex Sheppard on 09-11-2024 Urea nitrogen/Creatinine [Mass ratio] 19.5 mg/mg 10-20 [facility] Basophil percentageOrdered B y: Alex Sheppard on 09-11-2024 Basophils/100 WBC (Bld) 0.4 % Normal 0-1 [facility] Comment on above: Performed By: #### L 100.0100, L300.3900, L300.4310, M200.1000, L500.4050, L503.6005 ####[facility] [address] [place], [address] Bilirubin Test strip Ql (U)O rdered By: Alex Sheppard on 09-11-2024 Bilirubin Ql (U) Negative Negative [facility] Bilirubin, totalOrdered By: Alex Sheppard on 09-11-2024 Bilirubin [Mass/Vol] mg/dL 0.00-1.30 [facility] Blood cultureOrdered By: Luz Sheppard on 09-11-2024 Bacteria identified Cx Nom (Bld) No growth in 5 days. [facility] CBC W/Diff, Automatedon 08-27 Absolute Lymph 2.40 X10 3/uL Normal 0.83-4.51 [facility] Comment on above: Performed By: #### L 100.0100, L300.3900, L300.4310, M200.1000, L500.4050, L503.6005 ####[facility] [address] [place], [address](127) Absolute Neut 7.6 X10 3/uL Normal 2.0-7.7 [facility] Comment on above: Performed By: #### L 100.0100, L300.3900, L300.4310, M200.1000, L500.4050, L503.6005 ####[facility] [address] [place], [address] IG% 0.400 Normal 0.0-0.9 [facility] Comment on above: Result Comment: IG% - Immature Granulocytes (promyelocytes, myelocytes and metamyelocytes) > 1% indicates that a LEFT SHIFT is Present. Performed By: #### L 100.0100, L300.3900, L300.4310, M200.1000, L500.4050, L503.6005 ####[facility] [address] [place], [address] Nucleated RBC (Bld) [#/Vol] 0 10*3/uL Normal 0-5 [facility] Comment on above: Performed By: #### L 100.0100, L300.3900, L300.4310, M200.1000, L500.4050, L503.6005 ####[facility] [address] [place], [place], [phone]) RDW SD 51.1 fl High 35.1-43.9 [facility] Comment on above: Performed By: #### L 100.0100, L300.3900, L300.4310, M200.1000, L500.4050, L503.6005 ####[facility] [address] [place], [address] Calcium oxalate crystals LM Ql (Urine sed)Ordered By: Alex Sheppard on 09-11-2024 Urine Calcium Oxalate Crystals RARE /hpf [facility] Calcium oxalate crystals det ection in urine sediment by light microscopyOrdered By: Alex Sheppard on 09-11-2024 Calcium oxalate crystals LM Ql (Urine sed) RARE /hpf [facility] Carbon dioxide, total [Moles /volume] in Central venous bloodOrdered By: Alex Sheppard on 09-11-2024 CO2 [Moles/Vol] 27.3 mmol/L Normal 21.0-32.0 [facility] Comment on above: Performed By: #### L 500.3400, L501.2450, L100.0100, L500.2500, L501.4020, L300.8000 #### [facility] [address] [place], [address] Chloride assayOrdered By: Aicha Sheppard on 09-11-2024 Chloride [Moles/Vol] 103 mmol/L Normal 98-108 [facility] Comment on above: Performed By: #### L 500.3400, L501.2450, L100.0100, L500.2500, L501.4020, L300.8000 #### [facility] [address] [place], [address] Comprehensive Metabolic Prof ilon 09-11-2024 ALK PHOS 146 U/L High 40-129 [facility] Comment on above: Performed By: #### L 500.3400, L501.2450, L100.0100, L500.2500, L501.4020, L300.8000 #### [facility] [address] [place], [address] BUN/CRE 19.5 RATIO Normal 10-20 [facility] Comment on above: Performed By: #### L 500.3400, L501.2450, L100.0100, L500.2500, L501.4020, L300.8000 #### [facility] [address] [place], [address] ECRCL 107.24 ml/min Normal 50-250 [facility] Comment on above: Performed By: #### L 500.3400, L501.2450, L100.0100, L500.2500, L501.4020, L300.8000 #### [facility] [address] [place], [address] GAP 9 Normal 5-15 [facility] Comment on above: Performed By: #### L 500.3400, L501.2450, L100.0100, L500.2500, L501.4020, L300.8000 #### [facility] [address] [place], [address] T BILI < 0.15 Normal 0.00-1.30 [facility] Comment on above: Performed By: #### L 500.3400, L501.2450, L100.0100, L500.2500, L501.4020, L300.8000 #### [facility] [address] [place], [address] T PROT 6.8 g/dL Normal 5.9-8.4 [facility] Comment on above: Performed By: #### L 500.3400, L501.2450, L100.0100, L500.2500, L501.4020, L300.8000 #### [facility] [address] [place], [address] Comprehensive Metabolic Prof ilOrdered By: Alex Sheppard on 09-11-2024 AST [Catalytic activity/Vol] 27 U/L Normal <=37 [facility] Comment on above: Performed By: #### L 500.3400, L501.2450, L100.0100, L500.2500, L501.4020, L300.8000 #### [facility] [address] [place], [address] Emergency Department Summary on 09-11-2024 Emergency Department Summary [facility] Medical Records Department [address] [place] [address] Emergency Department Summary 09/11/24 MR#: [id number] Acct: [id number] Name: BAUTISTA RUFFIN Rep #: [id number] : 1960 64 From: Alex RODRÍGUEZ PCP: [facility] Hospital Status:REG ER Location: ED ADDENDUM by Dr. Alma Rosa Pedroza DO on 09/12/24 at 1144 Care of patient turned over to mt awaiting transfer to tertiary care center for definitive care at [facility]. Patient remained hemodynamically stable. [facility] will use there transfer team to transfer patient I am told at 1300 hrs. 09/12/24 1144 Cosigner Signature (if applicable): 09/12/24 0012 cc: [facility] * Signed HPI History of Present Illness Chief Complaint: Cellulitis Narrative Narrative: Patient is a 64-year-old male that is a paraplegic, this is secondary to transverse myelitis, patient also has history of wounds, colostomy, catheter, anxiety who presents to the [facility] for wound evaluation. Patient does live at home, patient's as well as some home care nursing does take care of him. The home care nurses noticed that there was a foul-smelling odor from multiple wounds on his sacrum, buttocks area, they referred him to the [facility]. Patient denies any fever or chills. Patient does not state he has any pain however he has no feeling. 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 Neurogenic bladder Benign essential hypertension Home Medications ???Medication ???Instructions ???Recorded ???Last Taken ???Type baclofen 20 mg tablet 20 mg PO TID muscle spasms 3 06/27/21 History multivitamin with folic acid 400 1 tab PO LUNCH supplemeny 02/26/13 06/27/21 History mcg tablet (Thera) gabapentin 100 mg capsule 300 mg PO TID neuropathy 04/19/13 06/27/21 History nortriptyline 50 mg capsule 100 mg PO QHS anxiety 01/19/19 History ascorbic acid (vitamin C) 1,000 mg 1 g PO DAILY Check with primary 06/28/21 Unknown History tablet (Vitamin C) doctor cholecalciferol (vitamin D3) 50 50 mcg PO DAILY Check with primary 06/28/21 Unknown History mcg (2,000 unit) capsule (Vitamin doctor D3) docusate sodium 100 mg capsule 100 mg PO BID Check with primary 0 06/28/21 Unknown History doctor loratadine 10 mg capsule 10 mg PO DAILY Check with primary 06/28/21 Unknown History doctor venlafaxine 75 mg tablet 150 mg PO DAILY Check with primary 06/28/21 Unknown History doctor apixaban 2.5 mg tablet (Eliquis) 2.5 mg PO BID 30 days #60 tabs 06/19 Unknown Rx Held on 09/11/24. Instructions: not confirmed aspirin 81 mg tablet,delayed 81 mg PO BREAKFAST heart health 30 06/29/21 Unknown Rx release days #30 tabs carvedilol 6.25 mg tablet 6.25 mg PO BID heart 30 days #60 0 06/29/21 Unknown Rx tabs ondansetron 4 mg disintegrating 4 mg PO Q8H PRN nausea and 3 Unknown Rx tablet vomiting #10 tabs rosuvastatin 10 mg tablet (Crestor) 20 mg PO DAILY 06/16/24 Unknown History doxycycline monohydrate 100 mg 100 mg PO BID 10 days #20 CAPSULES 07/13/24 Unknown Rx capsule buprenorphine 20 mcg/hour weekly 1 patch transdermal Q7D 09/11/24 U nknown History transdermal patch Allergy/AdvReac Type Severity Reaction Status Date / Time No Known Allergies Allergy Verified 07/14/24 07:10 Family History Father CVA (cerebral vascular accident) Heart disease Myocardial infarction Surgical History History of coronary artery stent placement (06/28/21) History of femoral derotational osteotomy History of appendectomy History of suprapubic catheter Hx of colostomy Colostomy in place Social History household members: spouse Smoking Status: Former smoker alcohol intake: former substance use type: marijuana ROS ROS ED ROS Narrative Constitutional: Negative for fever, chills, weight loss, weakness Eyes: Negative for vision loss, vision change, double vision ENT: Negative for any sore throat, ear pain, congestion Cardiovascular: Negative for any chest pain, tightness, palpitations Respiratory: Negative for any cough, sputum production, hemoptysis, dyspnea, dyspnea on exertion, orthopnea Gastrointestinal: Negative for any abdominal pain, nausea, vomiting, diarrhea, constipation, blood in stool, blood in vomit (more content not included)... Normal [facility] Eosinophil percentageOrdered By: Alex Sheppard on 09-11-2024 Eosinophils/100 WBC (Bld) 3.6 % Normal 0-5 [facility] Comment on above: Performed By: #### L 100.0100, L300.3900, L300.4310, M200.1000, L500.4050, L503.6005 ####[facility] [address] [place], [place], [id number] Epithelial cells.squamous LM Ql (Urine sed)Ordered By: Alex Sheppard on 09-11-2024 Epithelial cells.squamous LM.HPF (Urine sed) [#/Area] 0 /[HPF] 0-5 [facility] Erythrocyte distribution wid th (RBC) [Ratio]Ordered By: Alex Sheppard on 09-11-2024 Erythrocyte distribution width (RBC) [Entitic vol] 51.1 fL High 35.1-43.9 [facility] Erythrocyte distribution wid th ratioOrdered By: Alex Sheppard on 09-11-2024 Erythrocyte distribution width (RBC) [Ratio] 17.6 % High 11.6-14.6 [facility] Comment on above: Performed By: #### L 100.0100, L300.3900, L300.4310, M200.1000, L500.4050, L503.6005 ####[facility] [address] [place], [place], [phone](722) Erythrocyte distribution wid th standard deviationOrdered By: Alex Sheppard on 09-11-2024 Erythrocyte distribution width (RBC) [Ratio] 51.1 fl High 35.1-43.9 [facility] Estimation of creatinine elzbieta aranceOrdered By: Alex Sheppard on 09-11-2024 Estimated Creatinine Clearance Calc 107.24 ml/min 50-250 [facility] GFR/1.73 sq M.predicted cheyanne g non-blacks MDRD (S/P/Bld) [Vol rate/Area]Ordered By: Alex Sheppard on 09-11-2024 Estimated GFR (MDRD) Non-Af Amer 101 >60 [facility] Comment on above: mL/min/1.73m2 CKD-EP I Creatinine Equation (2020) Glomerular filtration rate ( GFR) estimation/1.73 sq m using serum, plasma, or whole bOrdered By: Alex Sheppard on 09-11-2024 GFR/1.73 sq M.predicted among non-blacks MDRD (S/P/Bld) [Vol rate/Area] 101 mL/min/{1.73_m2} Normal >60 [facility] Comment on above: mL/min/1.73m2 CKD-EP I Creatinine Equation (2020) Result Comment: mL/m in/1.73m2 CKD-EPI Creatinine Equation (2020) Performed By: #### L 500.3400, L501.2450, L100.0100, L500.2500, L501.4020, L300.8000 #### [facility] [address] [place], [place], [phone] Glucose Ql (U)Ordered By: Aicha Sheppard on 09-11-2024 Urine Glucose (UA) Normal mg/dl Normal [facility] Gram stainOrdered By: Alex jaffe on 09-11-2024 Microscopic observation Gram stain Nom (Unsp spec) [facility] Hemoglobin measurementOrdere d By: Alex Sheppard on 09-11-2024 Hemoglobin (Bld) [Mass/Vol] 13.0 g/dL Normal 13.0-16. 5 [facility] Comment on above: Performed By: #### L 100.0100, L300.3900, L300.4310, M200.1000, L500.4050, L503.6005 ####[facility] [address] [place], [place], [id number] Immature granulocytes/100 WB C Auto (Bld)Ordered By: Alex Sheppard on 09-11-2024 Immature granulocytes/100 WBC (Bld) 0.400 % 0.0-0.9 [facility] Comment on above: IG% - Immature Granu locytes (promyelocytes, myelocytes and metamyelocytes) > 1% indicates that a LEFT SHIFT is Present. International normalized rat io (INR) calculationOrdered By: Alex Sheppard on 09-11-2024 INR Coag (Bld) [Relative time] 1.0 {INR} [facility] Ketones Test strip Ql (U)Ord ered By: Alex Sheppard on 09-11-2024 Ketones Ql (U) Negative Negative [facility] Lactic acid measurementOrder ed By: Alex Sheppard on 09-11-2024 Lactate [Moles/Vol] 1.4 mmol/L Normal 0.0-2.0 [facility] Comment on above: Order Comment: Y Performed By: #### L 500.3400, L501.2450, L100.0100, L500.2500, L501.4020, L300.8000 #### [facility] [address] [place], [place], [id number] Lymphocytes Auto (Unsp spec) [#/Vol]Ordered By: Alex Sheppard on 09-11-2024 Lymphocytes (Bld) [#/Vol] 2.40 10*3/uL 0.83-4.5 1 [facility] MCV (mean corpuscular volume ) determinationOrdered By: Alex Sheppard on 09-11-2024 MCV (RBC) [Entitic vol] 81.0 fL Normal 80-94 [facility] Comment on above: Performed By: #### L 100.0100, L300.3900, L300.4310, M200.1000, L500.4050, L503.6005 ####[facility] [address] [place], [place], [phone] Mean corpuscular hemoglobin (MCH) determinationOrdered By: Alex Sheppard on 09-11-2024 MCH (RBC) [Entitic mass] 25.7 pg Low 27.0-32.0 [facility] Comment on above: Performed By: #### L 100.0100, L300.3900, L300.4310, M200.1000, L500.4050, L503.6005 ####[facility] [address] [place], [address] Mean corpuscular hemoglobin concentration (MCHC) determinationOrdered By: Alex Shpepard on 09-11-2024 MCHC (RBC) [Mass/Vol] 31.8 g/dL Low 32-36 [facility] Comment on above: Performed By: #### L 100.0100, L300.3900, L300.4310, M200.1000, L500.4050, L503.6005 ####[facility] [address] [place], [address] Mean platelet volume determi nationOrdered By: Alex Sheppard on 09-11-2024 Platelet mean volume (Bld) [Entitic vol] 8.6 fL Normal 6.2-12.0 [facility] Comment on above: Performed By: #### L 100.0100, L300.3900, L300.4310, M200.1000, L500.4050, L503.6005 ####[facility] [address] [place], [address] Microscopic analysis of urin e for red blood cells (RBC)Ordered By: Alex Sheppard on 09-11-2024 Microscopic analysis of urine for red blood cells (RBC) 0-5 SEEN /hpf 0-5 [facility] Urine RBC 0-5 SEEN /hpf 0-5 [facility] Monocyte percentageOrdered B y: Alex Sheppard on 09-11-2024 Monocytes/100 WBC (Bld) 8.6 % Normal 0-10 [facility] Comment on above: Performed By: #### L 100.0100, L300.3900, L300.4310, M200.1000, L500.4050, L503.6005 ####[facility] [address] [place], [address] Mucus LM Ql (Urine sed)Order ed By: Alex Sheppard on 09-11-2024 Mucus Ql (Urine sed) RARE /hpf [facility] Neutrophil percentageOrdered By: Alex Sheppard on 09-11-2024 Neutrophils/100 WBC (Bld) 66.2 % Normal 47-70 [facility] Comment on above: Performed By: #### L 100.0100, L300.3900, L300.4310, M200.1000, L500.4050, L503.6005 ####[facility] [address] [place], [place], [id number] Nitrite Test strip Ql (U)Ord ered By: Alex Sheppard on 09-11-2024 Nitrite Ql (U) Positive High Negative [facility] Nucleated red blood cell per centageOrdered By: Alex Sheppard on 09-11-2024 Nucleated RBC/100 WBC (Bld) [Ratio] 0 % 0-5 [facility] Pelvis WITH IV Contraston Pelvis WITH IV Contrast [facility] [address] [place], [place] [address] Pelvis WITH IV Contrast MR#: [id number] Acct: [id number] Name: BAUTISTA RUFFIN Rep #: [id number] : 1960 M 64 From: Nino Figueroa MD PCP: [facility] Status: REG ER Study: Pelvis WITH IV Contrast Date of Exam: 09/11/24 Exam# [id number] Ordering Dr: Alex Sheppard [employer]PERATOR-C PROCEDURE: PELVIS WITH IV CONTRAST REASON FOR EXAM: SACRAL WOUNDS . TECHNIQUE: Pelvis CT with intravenous contrast. One or more dose reduction techniques were used (e.g., Automated exposure control, adjustment of the mA and/or kV according to patient size, use of iterative reconstruction technique). COMPARISON: None. FINDINGS: Bladder: Suprapubic catheter within the collapsed bladder. Reproductive Organs: Unremarkable. 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 Appendix: Not visualized Lymph nodes: Unremarkable. Vasculature: Major vascular structures are unremarkable. Peritoneum / Retroperitoneum: No ascites. No free air. Bones: Dysplasia of both hip joints. Bilateral decubitus ulcers extending to the posterior aspect of the ischium bilaterally with destruction of the posterior ischium consistent with chronic ulcers with osteomyelitis. Large decubitus ulcer posterior to the sacrum with destruction and/or surgical resection of the distal sacrum and coccyx and exposure of the distal sacrum. Some sclerosis of the distal sacrum consistent with chronic osteomyelitis. CT/Pelvis WITH IV Contrast IMPRESSION: Large sacral decubitus ulcers with chronic osteomyelitis of the sacrum and ischium bilaterally but no abscess. Reading Location: [id number] CC: MARCOS Sheppard; [facility] Terrazzo Grinder: Signed Normal [facility] Platelet countOrdered By: Aicha Sheppard on 09-11-2024 Platelets (Bld) [#/Vol] 371 10*3/uL Normal 150-450 [facility] Comment on above: Performed By: #### L 100.0100, L300.3900, L300.4310, M200.1000, L500.4050, L503.6005 ####[facility] [address] [place], [place], [phone] Potassium measurement (mass/ volume)Ordered By: Alex Sheppard on 09-11-2024 Potassium [Moles/Vol] 4.1 mmol/L Normal 3.3-5.1 [facility] Comment on above: Performed By: #### L 500.3400, L501.2450, L100.0100, L500.2500, L501.4020, L300.8000 #### [facility] [address] [place], [address] Potassium (Unsp spec) [Mass/Vol] 4.1 mmol/L 3.3-5.1 [facility] Protein Test strip Ql (U)Ord ered By: Alex Sheppard on 09-11-2024 Protein Ql (U) 15 mg/dl High Negative [facility] Prothrombin Time w/INRon INR Coag (PPP) [Relative time] 1.0 {INR} Normal [facility] Comment on above: Performed By: #### L 500.3400, L501.2450, L100.0100, L500.2500, L501.4020, L300.8000 #### [facility] [address] [place], [address] Prothrombin timeOrdered By: Alex Sheppard on 09-11-2024 PT Coag (PPP) [Time] 13.7 s Normal 11.7-14.9 [facility] Comment on above: Performed By: #### L 500.3400, L501.2450, L100.0100, L500.2500, L501.4020, L300.8000 #### [facility] [address] [place], [address] Serum creatinine measurement (mass/volume)Ordered By: Alex Sheppard on 09-11-2024 Creatinine [Mass/Vol] 0.75 mg/dL Normal 0.70-1.20 [facility] Comment on above: Performed By: #### L 500.3400, L501.2450, L100.0100, L500.2500, L501.4020, L300.8000 #### [facility] [address] [place], [place], [phone] Serum globulin measurementOr dered By: Alex Sheppard on 09-11-2024 Globulin (S) [Mass/Vol] 3.9 g/dL Normal 2.2-4.[address] [facility] Comment on above: Performed By: #### L 500.3400, L501.2450, L100.0100, L500.2500, L501.4020, L300.8000 #### [facility] [address] [place], [place], [phone] Serum glucose measurement (m ass/volume)Ordered By: Alex Sheppard on 09-11-2024 Glucose [Mass/Vol] 123 mg/dL High 70-99 [facility] Comment on above: Performed By: #### L 500.3400, L501.2450, L100.0100, L500.2500, L501.4020, L300.8000 #### [facility] [address] [place], [address] Serum or plasma alanine hooper otransferase (ALT) measurementOrdered By: Alex Sheppard on 04-16-2025 ALT [Catalytic activity/Vol] 19 U/L Normal <=46 [facility] Comment on above: Performed By: #### L 500.3400, L501.2450, L100.0100, L500.2500, L501.4020, L300.8000 #### [facility] [address] [facility] [place], [address] Serum or plasma albumin shantal urement (mass/volume)Ordered By: Alex Sheppard on 09-11-2024 Albumin [Mass/Vol] 3.0 g/dL Low 3.4-4.8 [facility] Comment on above: Performed By: #### L 500.3400, L501.2450, L100.0100, L500.2500, L501.4020, L300.8000 #### [facility] [address] [place], [address] Serum or plasma albumin/glob ulin mass ratioOrdered By: Alex Sheppard on 09-11-2024 Albumin/Globulin [Mass ratio] 0.8 {ratio} Low 0.9-2.4 [facility] Comment on above: Performed By: #### L 500.3400, L501.2450, L100.0100, L500.2500, L501.4020, L300.8000 #### [facility] [address] [place], [address] Serum or plasma alkaline radha sphatase measurementOrdered By: Alex Sheppard on 09-11-2024 ALP [Catalytic activity/Vol] 146 U/L High 40-129 [facility] Serum or plasma calcium shantal urement (mass/volume)Ordered By: Alex Sheppard on 09-11-2024 Calcium [Mass/Vol] 8.9 mg/dL Normal 7.6-11.0 [facility] Comment on above: Performed By: #### L 500.3400, L501.2450, L100.0100, L500.2500, L501.4020, L300.8000 #### [facility] [address] [place], [address] Serum or plasma urea nitroge n measurement (mass/volume)Ordered By: Alex Sheppard on 09-11-2024 Urea nitrogen [Mass/Vol] 15 mg/dL Normal 4-19 [facility] Comment on above: Performed By: #### L 500.3400, L501.2450, L100.0100, L500.2500, L501.4020, L300.8000 #### [facility] [address] [place], [address] Sodium levelOrdered By: Alex Sheppard on 09-11-2024 Sodium [Moles/Vol] 139 mmol/L Normal 133-145 [facility] Comment on above: Performed By: #### L 500.3400, L501.2450, L100.0100, L500.2500, L501.4020, L300.8000 #### [facility] [address] [place], [address] Squamous epithelial cells de tection in urine sediment by light microscopyOrdered By: Alex Sheppard on 09-11-2024 Epithelial cells.squamous LM Ql (Urine sed) 0 SEEN /hpf 0-5 [facility] Total proteinOrdered By: Luz Sheppard on 09-11-2024 Protein [Mass/Vol] 6.8 g/dL 5.9-8.4 [facility] Urinalysis, Completeon 09-11 BACTERIA 2+ /hpf Normal None Seen [facility] Comment on above: Order Comment: GOOD TER SPECIMEN Performed By: #### M 100.1999, M100.2200, M100.3000, L400.0001 ####[facility] [address] [place], [address] CA OX CRYSTAL RARE Normal [facility] Comment on above: Order Comment: GOOD TER SPECIMEN Performed By: #### M 100.2000, M100.2200, M100.3000, L400.0001 ####[facility] [address] [place], [address] Mucus Ql (Urine sed) RARE Normal [facility] Comment on above: Order Comment: GOOD TER SPECIMEN Performed By: #### M 100.2000, M100.2200, M100.3000, L400.0001 ####[facility] [address] [place], [address] RBC 0-5 SEEN Normal 0-5 [facility] Comment on above: Order Comment: GOOD TER SPECIMEN Performed By: #### M 100.2000, M100.2200, M100.3000, L400.0001 ####[facility] [address] [place], [address] WBC 5-10 SEEN Normal 0-5 [facility] Comment on above: Order Comment: GOOD TER SPECIMEN Performed By: #### M 100.2000, M100.2200, M100.3000, L400.0001 ####[facility] [address] [place], [address] EPI,SQUAMOUS 0 SEEN Normal 0-5 [facility] Comment on above: Order Comment: GOOD TER SPECIMEN Performed By: #### M 100.2000, M100.2200, M100.3000, L400.0001 ####[facility] [address] [place], [address] Urine blood detectionOrdered By: Alex Sheppard on 09-11-2024 Urine Occult Blood 10 /ul High Negative [facility] Urine clarityOrdered By: Luz Sheppard on 09-11-2024 Clarity (U) Clear Clear [facility] Urine color determinationOrd ered By: Alex Sheppard on 09-11-2024 Color (U) Yellow Yellow [facility] Urine cultureOrdered By: Luz Sheppard on 09-11-2024 Bacteria identified Cx Nom (U) Pseudomonas aeruginosa Abnormal [facility] Urine glucose detectionOrder ed By: Alex Sheppard on 09-11-2024 Glucose Ql (U) Normal mg/dl Normal [facility] Urine leukocyte esterase det ection by dipstickOrdered By: Alex Sheppard on 09-11-2024 Leukocyte esterase Test strip Ql (U) 100 /ul High Negative [facility] Urine pHOrdered By: Alex juares on 09-11-2024 pH (U) 6.0 [pH] 5.0 - 8.0 [facility] Urine sediment bacteria coun t by microscopy (number/high power field)Ordered By: Alex Sheppard on 09-11-2024 Bacteria LM.HPF (Urine sed) [#/Area] 2 /[HPF] None Seen [facility] Urine specific gravity measu rementOrdered By: Alex Sheppard on 09-11-2024 Specific gravity (U) [Rel density] 1.015 1.002-1.03 0 [facility] Urine urobilinogen measureme ntOrdered By: Alex Sheppard on 09-11-2024 Urobilinogen Ql (U) Normal mg/dl Normal [facility] Urobilinogen Ql (U)Ordered B y: Alex Sheppard on 09-11-2024 Urine Urobilinogen Normal mg/dl Normal [facility] White blood cell (WBC) count Ordered By: Alex Sheppard on 09-11-2024 WBC (Bld) [#/Vol] 11.6 10*3/uL High 4.4-11.0 [facility] Comment on above: Performed By: #### L 100.0100, L300.3900, L300.4310, M200.1000, L500.4050, L503.6005 ####[facility] [address] [place], [place], [phone] White blood cell countOrdere d By: Alex Sheppard on 09-11-2024 Urine WBC 5-10 SEEN /hpf 0-5 [facility] White blood cell count 5-10 SEEN /hpf 0-5 [facility] Absolute lymphocyte countOrd ered By: Rico Moore on 07-14-2024 Lymphocytes Auto (Unsp spec) [#/Vol] 2.44 10*3/uL 0.83-4.51 [facility] Absolute neutrophil countOrd ered By: Rico Moore on 07-14-2024 Neutrophils (Bld) [#/Vol] 9.1 10*3/uL High 2.0-7.7 [facility] Automated lymphocyte count a s percentage of total leukocytesOrdered By: Rico Moore on 07-14-2024 Lymphocytes/100 WBC Auto (Unsp spec) 19.4 % 19-41 [facility] Bacteria LM.HPF (Urine sed) [#/Area]Ordered By: Rico Moore on 07-14-2024 Urine Bacteria RARE /hpf None Seen [facility] Basic Metabolic Profile (BMP )on 07-14-2024 BUN/CRE 21.2 RATIO High 10-20 [facility] Comment on above: Performed By: #### L 500.3400, L501.2450, L100.0100, L500.2500, L501.4020, L300.8000 #### [facility] [address] [place], [address] CA,Total 9.5 mg/dL Normal 8.5-10.1 [facility] Comment on above: Performed By: #### L 500.3400, L501.2450, L100.0100, L500.2500, L501.4020, L300.8000 #### [facility] [address] [place], [address] Chloride [Moles/Vol] 103 mmol/L Normal 98-107 [facility] Comment on above: Performed By: #### L 500.3400, L501.2450, L100.0100, L500.2500, L501.4020, L300.8000 #### [facility] [address] [place], [address] CO2 [Moles/Vol] 26.0 mmol/L Normal 21.0-32.0 [facility] Comment on above: Performed By: #### L 500.3400, L501.2450, L100.0100, L500.2500, L501.4020, L300.8000 #### [facility] [address] [place], [address] Creatinine [Mass/Vol] 0.66 mg/dL Low 0.70-1.30 [facility] Comment on above: Result Comment: The validity of the calculated GFR GFRAA in patients over 70 years has not been determined. Clinical correlation is essential. Performed By: #### L 500.3400, L501.2450, L100.0100, L500.2500, L501.4020, L300.8000 #### [facility] [address] [place], [address] ECRCL 125.25 ml/min Normal [facility] Comment on above: Performed By: #### L 500.3400, L501.2450, L100.0100, L500.2500, L501.4020, L300.8000 #### [facility] [address] [place], [place], [id number] (668 EST GFR - AA 156 mL/min Normal >60 [facility] Comment on above: Result Comment: Afri can Cypriot GFR Calc Performed By: #### L 500.3400, L501.2450, L100.0100, L500.2500, L501.4020, L300.8000 #### [facility] [address] [place], [address] GAP 9 Normal 5-15 [facility] Comment on above: Performed By: #### L 500.3400, L501.2450, L100.0100, L500.2500, L501.4020, L300.8000 #### [facility] [address] [place], [address] GFR/1.73 sq M.predicted among non-blacks MDRD (S/P/Bld) [Vol rate/Area] 129 mL/min/{1.73_m2} Normal >60 [facility] Comment on above: Result Comment: Non- GFR Calc Performed By: #### L 500.3400, L501.2450, L100.0100, L500.2500, L501.4020, L300.8000 #### [facility] [address] [place], [address] Glucose [Mass/Vol] 110 mg/dL High 74-106 [facility] Comment on above: Result Comment: Fast ing Glucose result from 100 to 125 mg/dL suggests IMPAIRED HOMEOSTASIS per A.D.A. criteria. Performed By: #### L 500.3400, L501.2450, L100.0100, L500.2500, L501.4020, L300.8000 #### [facility] [address] [place], [address] Potassium [Moles/Vol] 3.6 mmol/L Normal 3.5-5.1 [facility] Comment on above: Performed By: #### L 500.3400, L501.2450, L100.0100, L500.2500, L501.4020, L300.8000 #### [facility] [address] [place], [address] Sodium [Moles/Vol] 139 mmol/L Normal 136-145 [facility] Comment on above: Performed By: #### L 500.3400, L501.2450, L100.0100, L500.2500, L501.4020, L300.8000 #### [facility] [address] [place], [address] Urea nitrogen [Mass/Vol] 14 mg/dL Normal 7-18 [facility] Comment on above: Performed By: #### L 500.3400, L501.2450, L100.0100, L500.2500, L501.4020, L300.8000 #### [facility] [address] [place], [address] Basophil percentageOrdered B y: Rico Moore on 07-14-2024 Basophils/100 WBC (Bld) 0.6 % 0-1 [facility] Bilirubin Test strip Ql (U)O rdered By: Rico Moore on 07-14-2024 Bilirubin Ql (U) Negative Negative [facility] Bilirubin directOrdered By: Rico Moore on 07-14-2024 Bilirubin.direct [Mass/Vol] 0.13 mg/dL 0.00-0.3 0 [facility] Bilirubin, totalOrdered By: Rico Moore on 07-14-2024 Bilirubin [Mass/Vol] 0.30 mg/dL 0.20-1.00 [facility] Comment on above: For patients on eltr ombopag therapy, use of Dimension Reserve TBIL is not recommended. Blood urea nitrogen (BUN)/cr eatinine ratioOrdered By: Rico Moore on 07-14-2024 Urea nitrogen/Creatinine [Mass ratio] 21.2 mg/mg High 10-20 [facility] CBC W/Diff, Automatedon 06-29 Absolute Lymph 2.44 X10 3/uL Normal 0.83-4.51 [facility] Comment on above: Performed By: #### L 500.3400, L501.2450, L100.0100, L500.2500, L501.4020, L300.8000 #### [facility] [address] [place], [address] Absolute Neut 9.1 X10 3/uL High 2.0-7.7 [facility] Comment on above: Performed By: #### L 500.3400, L501.2450, L100.0100, L500.2500, L501.4020, L300.8000 #### [facility] [address] [place], [address] Basophils/100 WBC (Bld) 0.6 % Normal 0-1 [facility] Comment on above: Performed By: #### L 500.3400, L501.2450, L100.0100, L500.2500, L501.4020, L300.8000 #### [facility] [address] [place], [address] Eosinophils/100 WBC (Bld) 1.4 % Normal 0-5 [facility] Comment on above: Performed By: #### L 500.3400, L501.2450, L100.0100, L500.2500, L501.4020, L300.8000 #### [facility] [address] [place], [address] Erythrocyte distribution width (RBC) [Ratio] 15.9 % High 11.6-14.6 [facility] Comment on above: Performed By: #### L 500.3400, L501.2450, L100.0100, L500.2500, L501.4020, L300.8000 #### [facility] [address] [place], [address] Hematocrit (Bld) [Volume fraction] 42.8 % Normal 40-54 [facility] Comment on above: Performed By: #### L 500.3400, L501.2450, L100.0100, L500.2500, L501.4020, L300.8000 #### [facility] [address] [place], [address] Hemoglobin (Bld) [Mass/Vol] 14.0 g/dL Normal 13.0-16. 5 [facility] Comment on above: Performed By: #### L 500.3400, L501.2450, L100.0100, L500.2500, L501.4020, L300.8000 #### [facility] [address] [place], [address] IG% 0.600 Normal 0.0-0.9 [facility] Comment on above: Result Comment: IG% - Immature Granulocytes (promyelocytes, myelocytes and metamyelocytes) > 1% indicates that a LEFT SHIFT is Present. Performed By: #### L 500.3400, L501.2450, L100.0100, L500.2500, L501.4020, L300.8000 #### [facility] [address] [place], [address] Lymphocytes/100 WBC (Bld) 19.4 % Normal 19-41 [facility] Comment on above: Performed By: #### L 500.3400, L501.2450, L100.0100, L500.2500, L501.4020, L300.8000 #### [facility] [address] [place], [address] MCH (RBC) [Entitic mass] 27.1 pg Normal 27.0-32.0 [facility] Comment on above: Performed By: #### L 500.3400, L501.2450, L100.0100, L500.2500, L501.4020, L300.8000 #### [facility] [address] [place], [address] MCHC (RBC) [Mass/Vol] 32.7 g/dL Normal 32-36 [facility] Comment on above: Performed By: #### L 500.3400, L501.2450, L100.0100, L500.2500, L501.4020, L300.8000 #### [facility] [address] [place], [address] MCV (RBC) [Entitic vol] 82.8 fL Normal 80-94 [facility] Comment on above: Performed By: #### L 500.3400, L501.2450, L100.0100, L500.2500, L501.4020, L300.8000 #### [facility] [address] [place], [address] Monocytes/100 WBC (Bld) 5.9 % Normal 0-10 [facility] Comment on above: Performed By: #### L 500.3400, L501.2450, L100.0100, L500.2500, L501.4020, L300.8000 #### [facility] [address] [place], [address] Neutrophils/100 WBC (Bld) 72.1 % High 47-70 [facility] Comment on above: Performed By: #### L 500.3400, L501.2450, L100.0100, L500.2500, L501.4020, L300.8000 #### [facility] [address] [place], [address] Nucleated RBC (Bld) [#/Vol] 0 10*3/uL Normal 0-5 [facility] Comment on above: Performed By: #### L 500.3400, L501.2450, L100.0100, L500.2500, L501.4020, L300.8000 #### [facility] [address] [place], [address] Platelet mean volume (Bld) [Entitic vol] 8.9 fL Normal 6.2-12.0 [facility] Comment on above: Performed By: #### L 500.3400, L501.2450, L100.0100, L500.2500, L501.4020, L300.8000 #### [facility] [address] [place], [address] Platelets (Bld) [#/Vol] 487 10*3/uL High 150-450 [facility] Comment on above: Performed By: #### L 500.3400, L501.2450, L100.0100, L500.2500, L501.4020, L300.8000 #### [facility] [address] [place], [address] RBC (Bld) [#/Vol] 5.17 10*6/uL Normal 4.6-6.2 [facility] Comment on above: Performed By: #### L 500.3400, L501.2450, L100.0100, L500.2500, L501.4020, L300.8000 #### [facility] [address] [place], [address] RDW SD 47.8 fl High 35.1-43.9 [facility] Comment on above: Performed By: #### L 500.3400, L501.2450, L100.0100, L500.2500, L501.4020, L300.8000 #### [facility] [address] [place], [address] WBC (Bld) [#/Vol] 12.6 10*3/uL High 4.4-11.0 [facility] Comment on above: Performed By: #### L 500.3400, L501.2450, L100.0100, L500.2500, L501.4020, L300.8000 #### [facility] [address] [place], [address] Calcium oxalate crystals LM Ql (Urine sed)Ordered By: Rico Moore on 07-14-2024 Urine Calcium Oxalate Crystals RARE /hpf [facility] Calcium oxalate crystals det ection in urine sediment by light microscopyOrdered By: Rico Moore on 07-14-2024 Calcium oxalate crystals LM Ql (Urine sed) RARE /hpf [facility] Carbon dioxide measurementOr dered By: Rico Moore on 07-14-2024 CO2 [Moles/Vol] 26.0 mmol/L 21.0-32.0 [facility] Chest 1 View (Portable)on Chest 1 View (Portable) [facility] Imaging Services [address], [place] [id number] Chest 1 View (Portable) MR#: [id number] Acct: [id number] Name: BAUTISTA RUFFIN Rep #: [id number] : 1960 M 64 From: Keyla Yeboah nd, MD PCP: [facility] Status: REG ER Study: Chest 1 View (Portable) Date of Exam: 07/14/24 Exam# [id number] Ordering Dr: Rico Moore DO PROCEDURE: CHEST 1 VIEW (PORTABLE) REASON FOR EXAM: 64-year-old male, recent pneumonia diagnosis. TECHNIQUE: Frontal view of the chest. COMPARISON: Chest radiograph and CTA chest 07/13/2024, FINDINGS: The heart size is normal. Stable findings of emphysema and bibasilar atelectasis. The small left lower lobe consolidation seen on recent CTA is obscured by the cardiac shadow. No pleural effusion or pneumothorax. Degenerative changes are identified within the thoracic spine. Mild rightward curvature of the midthoracic spine. RAD/Chest 1 View (Portable) IMPRESSION: 1. The small left lower lobe consolidation seen on recent CTA is obscured by the cardiac shadow. 2. No pleural effusion or pneumothorax. Reading Location: [facility] CC: Dr. Rico Moore, ; [facility] Terrazzo Grinder: Signed Normal [facility] Chloride measurementOrdered By: iRco Moore on 07-14-2024 Chloride [Moles/Vol] 103 mmol/L 98-107 [facility] Emergency Department Summary on 07-14-2024 Emergency Department Summary [facility] Medical Records Department [address] [place] [address] Emergency Department Summary 07/14/24 MR#: [id number] Acct: [id number] Name: BAUTISTA RUFFIN Rep #: [id number] : 1960 64 From: Rico Moore DO PCP: [facility] Status:DEP ER Location: ED HPI History of Present Illness Chief Complaint: Other, Pain/Inj Informant: patient, spouse/S.O. and EMS Narrative Narrative: 64-year-old male presenting to the emergency department via EMS with the chief complaint of I cannot sleep. Patient's significant other are not very good historians using very vague information. He tells me he is paralyzed. He does not know why. Significant other does not know why. From what I can see in the chart he has a history of transverse myelitis he was seen in the emergency department yesterday and was diagnosed with pneumonia. He was placed on azithromycin. His states that he was also prescribed another medicine but cannot recall the name of it (per chart it was doxycyline). Patient states that he feels poorly. Is difficult for him to describe this. He notes some dry heaves. Significant other notes darker urine in the suprapubic catheter. He has a colostomy. He does not know if he has had a fever. He does not wear home oxygen. He has not had any of his morning medications. He states he does not have a history of hypertension (noted to be hypertensive on triage). Per the chart he has a history of hypertension and takes lisinopril and carvedilol. He is unsure why he cannot sleep. He states he is not coughing that much. He has not taken anything for sleep. He states he sees the [place] for primary care. Yesterday he tested negative for COVID influenza RSV. Pneumonia was noted on CT scanning to be retrocardiac. 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 Neurogenic bladder Benign essential hypertension Home Medications ???Medication ???Instructions ???Recorded ???Last Taken ???Type baclofen 20 mg tablet 20 mg PO TID muscle spasms 3 06/27/21 History multivitamin with folic acid 400 1 tab PO LUNCH supplemeny 02/26/13 06/27/21 History mcg tablet (Thera) gabapentin 100 mg capsule 900 mg PO TID neuropathy 04/19/13 06/27/21 History nortriptyline 50 mg capsule 100 mg PO QHS anxiety 01/19/19 History ascorbic acid (vitamin C) 1,000 mg 1 g PO DAILY Check with primary 06/28/21 Unknown History tablet (Vitamin C) doctor cholecalciferol (vitamin D3) 50 50 mcg PO DAILY Check with primary 06/28/21 Unknown History mcg (2,000 unit) capsule (Vitamin doctor D3) docusate sodium 100 mg capsule 100 mg PO BID Check with primary 0 06/28/21 Unknown History doctor loratadine 10 mg capsule 10 mg PO DAILY Check with primary 06/28/21 Unknown History doctor venlafaxine 75 mg tablet 150 mg PO DAILY Check with primary 06/28/21 Unknown History doctor apixaban 2.5 mg tablet (Eliquis) 2.5 mg PO BID 30 days #60 tabs 02/ 01/22 Unknown Rx aspirin 81 mg tablet,delayed 81 mg PO BREAKFAST heart health 30 06/29/21 Unknown Rx release days #30 tabs carvedilol 6.25 mg tablet 6.25 mg PO BID heart 30 days #60 0 06/29/21 Unknown Rx tabs lisinopril 2.5 mg tablet 2.5 mg PO DAILY #30 tabs 07/06/21 Unknown Rx ondansetron 4 mg disintegrating 4 mg PO Q8H PRN nausea and 3 Unknown Rx tablet vomiting #10 tabs buprenorphine 10 mcg/hour weekly 1 patch transdermal Q7D pain 06/1106/14/24 History transdermal patch rosuvastatin 10 mg tablet (Crestor) 20 mg PO DAILY 06/16/24 Unknown History azithromycin 250 mg tablet See Rx Instructions PO .COMPLEX #6 07/13/24 Unknown Rx (Zithromax Z-Elio) tabs doxycycline monohydrate 100 mg 100 mg PO BID 10 days #20 CAPSULES 07/13/24 Unknown Rx capsule lorazepam 1 mg tablet 1 mg PO TID PRN insomnia #10 07/14 Unknown Rx TABLETS ondansetron 4 mg disintegrating 4 mg PO Q6H PRN PRN Nausea #15 tab s 07/14/24 Unknown Rx tablet Allergy/AdvReac Type Severity Reaction Status Date / Time No Known Allergies Allergy Verified 07/14/24 07:10 Family History Father CVA (cerebral vascular accident) Heart disease Myocardial infarction Surgical History History of coronary artery stent placement (06/28/21) History of femoral derotational osteotomy History of appendectomy History of suprapubic catheter Hx of colostom (more content not included)... Normal [facility] Eosinophil percentageOrdered By: Rico Moore on 07-14-2024 Eosinophils/100 WBC (Bld) 1.4 % 0-5 [facility] Epithelial cells.squamous LM Ql (Urine sed)Ordered By: Rico Moore on 07-14-2024 Epithelial cells.squamous LM.HPF (Urine sed) [#/Area] 0 /[HPF] 0-5 [facility] Erythrocyte distribution wid th (RBC) [Ratio]Ordered By: Rico Moore on 07-14-2024 Erythrocyte distribution width (RBC) [Entitic vol] 47.8 fL High 35.1-43.9 [facility] Erythrocyte distribution wid th ratioOrdered By: Rico Moore on 07-14-2024 Erythrocyte distribution width (RBC) [Ratio] 15.9 % High 11.6-14.6 [facility] Erythrocyte distribution wid th standard deviationOrdered By: Rico Moore on 07-14-2024 Erythrocyte distribution width (RBC) [Ratio] 47.8 fl High 35.1-43.9 [facility] Estimated glomerular filtrat ion rate (GFR) AmericanOrdered By: Rico Moore on 07-14-2024 Estimated GFR (MDRD) Amer 156 mL/min >60 [facility] Comment on above: GFR Calc Estimation of creatinine elzbieta aranceOrdered By: Rico Moore on 07-14-2024 Estimated Creatinine Clearance Calc 125.25 ml/min [facility] Glomerular filtration rate ( GFR) estimationOrdered By: Rico Moore on 07-14-2024 Estimated GFR (MDRD) Non-Af Amer 129 mL/min >60 [facility] Comment on above: Non- GFR Calc GFR/1.73 sq M.predicted among non-blacks MDRD (S/P/Bld) [Vol rate/Area] 129 mL/min/{1.73_m2} >60 [facility] Comment on above: Non- GFR Calc Glucose Ql (U)Ordered By: Thomas Moore on 07-14-2024 Urine Glucose (UA) Normal mg/dl Normal [facility] Glucose measurementOrdered B y: Rico Moore on 07-14-2024 Glucose [Mass/Vol] 110 mg/dL High 74-106 [facility] Comment on above: Fasting Glucose resu lt from 100 to 125 mg/dL suggests IMPAIRED HOMEOSTASIS per A.D.A. criteria. Hematocrit Auto (Bld) [Volum e fraction]Ordered By: Rico Moore on 07-14-2024 Hematocrit (Bld) [Volume fraction] 42.8 % 40-54 [facility] Hemoglobin measurementOrdere d By: Rico Moore on 07-14-2024 Hemoglobin (Bld) [Mass/Vol] 14.0 g/dL 13.0-16. 5 [facility] Immature granulocytes/100 WB C Auto (Bld)Ordered By: Rico Moore on 07-14-2024 Immature granulocytes/100 WBC (Bld) 0.600 % 0.0-0.9 [facility] Comment on above: IG% - Immature Granu locytes (promyelocytes, myelocytes and metamyelocytes) > 1% indicates that a LEFT SHIFT is Present. Ketones Test strip Ql (U)Ord ered By: Rico Moore on 07-14-2024 Ketones Ql (U) 150 mg/dl Abnormal Negative [facility] Comment on above: CRITICAL VALUE *HCAL LED TO GEORGE BARONE07/14/24 0758 Erica Bianchi.RESULTS READ BACK BY SAME. Laboratory - Chemistry and C hemistry - challengeOrdered By: Rico Moore on 07-14-2024 AST [Catalytic activity/Vol] 20 U/L 15-37 [facility] Lipaseon 07-14-2024 Lipase [Catalytic activity/Vol] 20 U/L Low 73-393 [facility] Comment on above: Performed By: #### L 500.3400, L501.2450, L100.0100, L500.2500, L501.4020, L300.8000 #### [facility] [address] [place], [place], [id number] Lipase measurementOrdered By : Rico Moore on 07-14-2024 Lipase [Catalytic activity/Vol] 20 U/L Low 73-393 [facility] Liver Profileon 07-14-2024 Albumin [Mass/Vol] 2.5 g/dL Low 3.2-5.0 [facility] Comment on above: Performed By: #### L 500.3400, L501.2450, L100.0100, L500.2500, L501.4020, L300.8000 #### [facility] [address] [place], [address] ALK P 117 U/L Normal 45-117 [facility] Comment on above: Performed By: #### L 500.3400, L501.2450, L100.0100, L500.2500, L501.4020, L300.8000 #### [facility] [address] [place], [address] ALT [Catalytic activity/Vol] 19 U/L Normal 16-61 [facility] Comment on above: Performed By: #### L 500.3400, L501.2450, L100.0100, L500.2500, L501.4020, L300.8000 #### [facility] [address] [place], [address] AST [Catalytic activity/Vol] 20 U/L Normal 15-37 [facility] Comment on above: Performed By: #### L 500.3400, L501.2450, L100.0100, L500.2500, L501.4020, L300.8000 #### [facility] [address] [place], [address] Bilirubin [Mass/Vol] 0.30 mg/dL Normal 0.20-1.00 [facility] Comment on above: Result Comment: For patients on eltrombopag therapy, use of Dimension Reserve TBIL is not recommended. Performed By: #### L 500.3400, L501.2450, L100.0100, L500.2500, L501.4020, L300.8000 #### [facility] [address] [place], [address] Bilirubin.direct [Mass/Vol] 0.13 mg/dL Normal 0.00-0.3 0 [facility] Comment on above: Performed By: #### L 500.3400, L501.2450, L100.0100, L500.2500, L501.4020, L300.8000 #### [facility] [address] [place], [address] Globulin (S) [Mass/Vol] 5.2 g/dL High 2.2-4.2 [facility] Comment on above: Performed By: #### L 500.3400, L501.2450, L100.0100, L500.2500, L501.4020, L300.8000 #### [facility] [address] [place], [address] T PROT 7.7 g/dL Normal 6.4-8.2 [facility] Comment on above: Performed By: #### L 500.3400, L501.2450, L100.0100, L500.2500, L501.4020, L300.8000 #### [facility] [address] [place], [address] Lymphocytes Auto (Unsp spec) [#/Vol]Ordered By: Rico Moore on 07-14-2024 Lymphocytes (Bld) [#/Vol] 2.44 10*3/uL 0.83-4.5 1 [facility] Lymphocytes/100 WBC Auto (Un sp spec)Ordered By: Rico Moore on 07-14-2024 Lymphocytes/100 WBC (Bld) 19.4 % 19-41 [facility] MCV (mean corpuscular volume ) determinationOrdered By: Rico Moore on 07-14-2024 MCV (RBC) [Entitic vol] 82.8 fL 80-94 [facility] Mean corpuscular hemoglobin (MCH) determinationOrdered By: Rico Moore on 07-14-2024 MCH (RBC) [Entitic mass] 27.1 pg 27.0-32.0 [facility] Mean corpuscular hemoglobin concentration (MCHC) determinationOrdered By: Rico Moore on 07-14-2024 MCHC (RBC) [Mass/Vol] 32.7 g/dL 32-36 [facility] Mean platelet volume determi nationOrdered By: Rico Moore on 07-14-2024 Platelet mean volume (Bld) [Entitic vol] 8.9 fL 6.2-12.0 [facility] Microscopic analysis of urin e for red blood cells (RBC)Ordered By: Rico Moore on 07-14-2024 Microscopic analysis of urine for red blood cells (RBC) 0 SEEN /hpf 0-5 [facility] Urine RBC 0 SEEN /hpf 0-5 [facility] Monocyte percentageOrdered B y: Rico Moore on 07-14-2024 Monocytes/100 WBC (Bld) 5.9 % 0-10 [facility] Mucus LM Ql (Urine sed)Order ed By: Rico Moore on 07-14-2024 Mucus Ql (Urine sed) 0 SEEN /hpf [facility] Neutrophil percentageOrdered By: Rico Moore on 07-14-2024 Neutrophils/100 WBC (Bld) 72.1 % High 47-70 [facility] Nitrite Test strip Ql (U)Ord ered By: Rico Moore on 07-14-2024 Nitrite Ql (U) Positive High Negative [facility] Nucleated red blood cell per centageOrdered By: Rico Moore on 07-14-2024 Nucleated RBC/100 WBC (Bld) [Ratio] 0 % 0-5 [facility] Platelet countOrdered By: Thomas Moore on 07-14-2024 Platelets (Bld) [#/Vol] 487 10*3/uL High 150-450 [facility] Potassium measurementOrdered By: Rico Moore on 07-14-2024 Potassium [Moles/Vol] 3.6 mmol/L 3.5-5.1 [facility] Protein Test strip Ql (U)Ord ered By: Rico Moore on 07-14-2024 Protein Ql (U) 100 mg/dl High Negative [facility] RBC Auto (Bld) [#/Vol]Ordere d By: Rico Moore on 07-14-2024 RBC (Bld) [#/Vol] 5.17 10*6/uL 4.6-6.2 [facility] Serum anion gap measurementO rdered By: Rico Moore on 07-14-2024 Anion gap [Moles/Vol] 9 mmol/L 5-15 [facility] Serum globulin measurementOr dered By: Rico Moore on 07-14-2024 Globulin (S) [Mass/Vol] 5.2 g/dL High 2.2-4.2 [facility] Serum or plasma alanine hooper otransferase (ALT) measurementOrdered By: Rico Moore on 07-14-2024 ALT [Catalytic activity/Vol] 19 U/L 16-61 [facility] Serum or plasma albumin shantal urement (mass/volume)Ordered By: Rico Moore on 07-14-2024 Albumin [Mass/Vol] 2.5 g/dL Low 3.2-5.0 [facility] Serum or plasma alkaline radha sphatase measurementOrdered By: Rico Moore on 07-14-2024 ALP [Catalytic activity/Vol] 117 U/L 45-117 [facility] Serum or plasma calcium shantal urement (mass/volume)Ordered By: Rico Moore on 07-14-2024 Calcium [Mass/Vol] 9.5 mg/dL 8.5-10.1 [facility] Serum or plasma creatinine m easurement (mass/volume)Ordered By: Rico Moore on 07-14-2024 Creatinine [Mass/Vol] 0.66 mg/dL Low 0.70-1.30 [facility] Comment on above: The validity of the calculated GFR & GFRAA in patients over 70 years has not been determined. Clinical correlation is essential. Serum or plasma urea nitroge n measurement (mass/volume)Ordered By: Rico Moore on 07-14-2024 Urea nitrogen [Mass/Vol] 14 mg/dL 7-18 [facility] Sodium levelOrdered By: Bhaskar Moore on 07-14-2024 Sodium [Moles/Vol] 139 mmol/L 136-145 [facility] Squamous epithelial cells de tection in urine sediment by light microscopyOrdered By: Rico Moore on 07-14-2024 Epithelial cells.squamous LM Ql (Urine sed) 0-5 SEEN /hpf 0-5 [facility] Total proteinOrdered By: Charles Moore on 07-14-2024 Protein [Mass/Vol] 7.7 g/dL 6.4-8.2 [facility] Urinalysis, Completeon 07-14 RBC 0 SEEN Normal 0-5 [facility] Comment on above: Order Comment: GOOD TER SPECIMEN Performed By: #### L 500.3400, L501.2450, L100.0100, L500.2500, L501.4020, L300.8000 #### [facility] [address] [place], [address] BACTERIA RARE Normal None Seen [facility] Comment on above: Order Comment: GOOD TER SPECIMEN Performed By: #### L 500.3400, L501.2450, L100.0100, L500.2500, L501.4020, L300.8000 #### [facility] [address] [place], [address] CA OX CRYSTAL RARE Normal [facility] Comment on above: Order Comment: GOOD TER SPECIMEN Performed By: #### L 500.3400, L501.2450, L100.0100, L500.2500, L501.4020, L300.8000 #### [facility] [address] [place], [address] EPI,SQUAMOUS 0-5 SEEN Normal 0-5 [facility] Comment on above: Order Comment: GOOD TER SPECIMEN Performed By: #### L 500.3400, L501.2450, L100.0100, L500.2500, L501.4020, L300.8000 #### [facility] [address] [place], [address] WBC >100 SEEN Normal 0-5 [facility] Comment on above: Order Comment: GOOD TER SPECIMEN Performed By: #### L 500.3400, L501.2450, L100.0100, L500.2500, L501.4020, L300.8000 #### [facility] [address] [place], [address] Mucus Ql (Urine sed) 0 SEEN Normal [facility] Comment on above: Order Comment: GOOD TER SPECIMEN Performed By: #### L 500.3400, L501.2450, L100.0100, L500.2500, L501.4020, L300.8000 #### [facility] [place], [address] Urine blood detectionOrdered By: Rico Moore on 07-14-2024 Urine Occult Blood 50 /ul High Negative [facility] Urine clarityOrdered By: Charles Moore on 07-14-2024 Clarity (U) Cloudy Clear [facility] Urine color determinationOrd ered By: Rico Moore on 07-14-2024 Color (U) Yellow Yellow [facility] Urine glucose detectionOrder ed By: Rico Moore on 07-14-2024 Glucose Ql (U) Normal mg/dl Normal [facility] Urine leukocyte esterase det ection by dipstickOrdered By: Rico Moore on 07-14-2024 Leukocyte esterase Test strip Ql (U) 500 /ul High Negative [facility] Urine pHOrdered By: Rico vang on 07-14-2024 pH (U) 5.0 [pH] 5.0 - 8.0 [facility] Urine sediment bacteria coun t by microscopy (number/high power field)Ordered By: Rico Moore on 07-14-2024 Bacteria LM.HPF (Urine sed) [#/Area] RARE /hpf None Seen [facility] Urine specific gravity measu rementOrdered By: Rico Moore on 07-14-2024 Specific gravity (U) [Rel density] 1.025 1.002-1.03 0 [facility] Urine urobilinogen measureme ntOrdered By: Rico Moore on 07-14-2024 Urobilinogen Ql (U) Normal mg/dl Normal [facility] Urobilinogen Ql (U)Ordered B y: Rico Moore on 07-14-2024 Urine Urobilinogen Normal mg/dl Normal [facility] White blood cell (WBC) count Ordered By: Rico Moore on 07-14-2024 WBC (Bld) [#/Vol] 12.6 10*3/uL High 4.4-11.0 [facility] White blood cell countOrdere d By: Rico Moore on 07-14-2024 Urine WBC >100 SEEN /hpf 0-5 [facility] White blood cell count >100 SEEN /hpf 0-5 [facility] 12 Lead EKGon 07-13-2024 12 Lead EKG [facility] Cardiovascular Services [address] [place] [address] 12 Lead EKG 07/13/24 0227 MR#: [id number] Acct: [id number] Name: BAUTISTA RUFFIN Rep #: [id number] : 1960 64 From: Zackary Costello MD Attending Dr: Status: DEP ER Ordering Dr: Richie Borden DO Date: 07/13/24 Location: ED Sex: M C Admitted: Test Reason : CP Blood Pressure : */* mmHG Vent. Rate : 89 BPM Atrial Rate : 89 BPM P-R Int : 142 ms QRS Dur : 96 ms QT Int : 390 ms P-R-T Axes : 46 71 49 degrees QTcB Int : 474 ms Normal sinus rhythm Normal ECG Confirmed by NOEMI MARR, ALAN ([id number]), video news editor AURORA FOURNIER ([id number]) on 07/15/2024 8:18:29 AM Referred By: IAN Confirmed By: ALAN COSTELLO MD 07/15/24817 Date Zackary Costello MD CC: Richie Borden DO; [facility] Signed Normal [facility] Absolute lymphocyte countOrd ered By: Richie Borden on 07-13-2024 Lymphocytes Auto (Unsp spec) [#/Vol] 3.25 10*3/uL 0.83-4.51 [facility] Absolute neutrophil countOrd ered By: Richie Borden on 07-13-2024 Neutrophils (Bld) [#/Vol] 9.2 10*3/uL High 2.0-7.7 [facility] Automated lymphocyte count a s percentage of total leukocytesOrdered By: Richie Borden on 07-13-2024 Lymphocytes/100 WBC Auto (Unsp spec) 22.6 % 19-41 [facility] Basic Metabolic Profile (BMP )on 07-13-2024 BUN/CRE 17.5 RATIO Normal 10-20 [facility] Comment on above: Order Comment: 'TROP ' Serial specimen #1, #2 or #3: 1 Performed By: #### L 500.3400, L501.2450, L100.0100, L500.2500, L501.4020, L300.8000 #### [facility] [address] [place], [address] CA,Total 9.4 mg/dL Normal 8.5-10.1 [facility] Comment on above: Order Comment: 'TROP ' Serial specimen #1, #2 or #3: 1 Performed By: #### L 500.3400, L501.2450, L100.0100, L500.2500, L501.4020, L300.8000 #### [facility] [address] [place], [address] Chloride [Moles/Vol] 104 mmol/L Normal 98-107 [facility] Comment on above: Order Comment: 'TROP ' Serial specimen #1, #2 or #3: 1 Performed By: #### L 500.3400, L501.2450, L100.0100, L500.2500, L501.4020, L300.8000 #### [facility] [address] [place], [address] CO2 [Moles/Vol] 27.0 mmol/L Normal 21.0-32.0 [facility] Comment on above: Order Comment: 'TROP ' Serial specimen #1, #2 or #3: 1 Performed By: #### L 500.3400, L501.2450, L100.0100, L500.2500, L501.4020, L300.8000 #### [facility] [address] [place], [address] Creatinine [Mass/Vol] 0.63 mg/dL Low 0.70-1.30 [facility] Comment on above: Order Comment: 'TROP ' Serial specimen #1, #2 or #3: 1 Result Comment: The validity of the calculated GFR GFRAA in patients over 70 years has not been determined. Clinical correlation is essential. Performed By: #### L 500.3400, L501.2450, L100.0100, L500.2500, L501.4020, L300.8000 #### [facility] [address] [place], [address] ECRCL 120.02 ml/min Normal [facility] Comment on above: Order Comment: 'TROP ' Serial specimen #1, #2 or #3: 1 Performed By: #### L 500.3400, L501.2450, L100.0100, L500.2500, L501.4020, L300.8000 #### [facility] [address] [place], [place], [phone] (340) EST GFR - AA 166 mL/min Normal >60 [facility] Comment on above: Order Comment: 'TROP ' Serial specimen #1, #2 or #3: 1 Result Comment: Afri can Cypriot GFR Calc Performed By: #### L 500.3400, L501.2450, L100.0100, L500.2500, L501.4020, L300.8000 #### [facility] [address] [place], [place], [phone] (385) GAP 6 Normal 5-15 [facility] Comment on above: Order Comment: 'TROP ' Serial specimen #1, #2 or #3: 1 Performed By: #### L 500.3400, L501.2450, L100.0100, L500.2500, L501.4020, L300.8000 #### [facility] [address] [place], [place], [id number] (065 GFR/1.73 sq M.predicted among non-blacks MDRD (S/P/Bld) [Vol rate/Area] 137 mL/min/{1.73_m2} Normal >60 [facility] Comment on above: Order Comment: 'TROP ' Serial specimen #1, #2 or #3: 1 Result Comment: Non- GFR Calc Performed By: #### L 500.3400, L501.2450, L100.0100, L500.2500, L501.4020, L300.8000 #### [facility] [address] [place], [address] Glucose [Mass/Vol] 122 mg/dL High 74-106 [facility] Comment on above: Order Comment: 'TROP ' Serial specimen #1, #2 or #3: 1 Result Comment: Fast ing Glucose result from 100 to 125 mg/dL suggests IMPAIRED HOMEOSTASIS per A.D.A. criteria. Performed By: #### L 500.3400, L501.2450, L100.0100, L500.2500, L501.4020, L300.8000 #### [facility] [address] [place], [address] Potassium [Moles/Vol] 3.6 mmol/L Normal 3.5-5.1 [facility] Comment on above: Order Comment: 'TROP ' Serial specimen #1, #2 or #3: 1 Performed By: #### L 500.3400, L501.2450, L100.0100, L500.2500, L501.4020, L300.8000 #### [facility] [address] [place], [address] Sodium [Moles/Vol] 137 mmol/L Normal 136-145 [facility] Comment on above: Order Comment: 'TROP ' Serial specimen #1, #2 or #3: 1 Performed By: #### L 500.3400, L501.2450, L100.0100, L500.2500, L501.4020, L300.8000 #### [facility] [address] [place], [address] Urea nitrogen [Mass/Vol] 11 mg/dL Normal 7-18 [facility] Comment on above: Order Comment: 'TROP ' Serial specimen #1, #2 or #3: 1 Performed By: #### L 500.3400, L501.2450, L100.0100, L500.2500, L501.4020, L300.8000 #### [facility] [address] [place], [address] Basophil percentageOrdered B y: Richie Borden on 07-13-2024 Basophils/100 WBC (Bld) 0.5 % 0-1 [facility] Bilirubin directOrdered By: Richie Borden on 07-13-2024 Bilirubin.direct [Mass/Vol] 0.15 mg/dL 0.00-0.3 0 [facility] Bilirubin, totalOrdered By: Richie Borden on 07-13-2024 Bilirubin [Mass/Vol] 0.30 mg/dL 0.20-1.00 [facility] Comment on above: For patients on eltr ombopag therapy, use of Dimension Reserve TBIL is not recommended. Blood urea nitrogen (BUN)/cr eatinine ratioOrdered By: Richie Borden on 07-13-2024 Urea nitrogen/Creatinine [Mass ratio] 17.5 mg/mg 10-20 [facility] CBC W/Diff, Automatedon 06-29 Absolute Lymph 3.25 X10 3/uL Normal 0.83-4.51 [facility] Comment on above: Performed By: #### L 500.3400, L501.2450, L100.0100, L500.2500, L501.4020, L300.8000 #### [facility] [address] [place], [address] Absolute Neut 9.2 X10 3/uL High 2.0-7.7 [facility] Comment on above: Performed By: #### L 500.3400, L501.2450, L100.0100, L500.2500, L501.4020, L300.8000 #### [facility] [address] [place], [address] Basophils/100 WBC (Bld) 0.5 % Normal 0-1 [facility] Comment on above: Performed By: #### L 500.3400, L501.2450, L100.0100, L500.2500, L501.4020, L300.8000 #### [facility] [address] [place], [address] Eosinophils/100 WBC (Bld) 3.1 % Normal 0-5 [facility] Comment on above: Performed By: #### L 500.3400, L501.2450, L100.0100, L500.2500, L501.4020, L300.8000 #### [facility] [address] [place], [address] Erythrocyte distribution width (RBC) [Ratio] 15.9 % High 11.6-14.6 [facility] Comment on above: Performed By: #### L 500.3400, L501.2450, L100.0100, L500.2500, L501.4020, L300.8000 #### [facility] [address] [place], [address] Hematocrit (Bld) [Volume fraction] 43.8 % Normal 40-54 [facility] Comment on above: Performed By: #### L 500.3400, L501.2450, L100.0100, L500.2500, L501.4020, L300.8000 #### [facility] [address] [place], [address] Hemoglobin (Bld) [Mass/Vol] 14.2 g/dL Normal 13.0-16. 5 [facility] Comment on above: Performed By: #### L 500.3400, L501.2450, L100.0100, L500.2500, L501.4020, L300.8000 #### [facility] [address] [place], [address] IG% 0.400 Normal 0.0-0.9 [facility] Comment on above: Result Comment: IG% - Immature Granulocytes (promyelocytes, myelocytes and metamyelocytes) > 1% indicates that a LEFT SHIFT is Present. Performed By: #### L 500.3400, L501.2450, L100.0100, L500.2500, L501.4020, L300.8000 #### [facility] [address] [place], [address] Lymphocytes/100 WBC (Bld) 22.6 % Normal 19-41 [facility] Comment on above: Performed By: #### L 500.3400, L501.2450, L100.0100, L500.2500, L501.4020, L300.8000 #### [facility] [address] [place], [address] MCH (RBC) [Entitic mass] 26.8 pg Low 27.0-32.0 [facility] Comment on above: Performed By: #### L 500.3400, L501.2450, L100.0100, L500.2500, L501.4020, L300.8000 #### [facility] [address] [place], [address] MCHC (RBC) [Mass/Vol] 32.4 g/dL Normal 32-36 [facility] Comment on above: Performed By: #### L 500.3400, L501.2450, L100.0100, L500.2500, L501.4020, L300.8000 #### [facility] [address] [place], [address] MCV (RBC) [Entitic vol] 82.6 fL Normal 80-94 [facility] Comment on above: Performed By: #### L 500.3400, L501.2450, L100.0100, L500.2500, L501.4020, L300.8000 #### [facility] [address] [place], [address] Monocytes/100 WBC (Bld) 9.5 % Normal 0-10 [facility] Comment on above: Performed By: #### L 500.3400, L501.2450, L100.0100, L500.2500, L501.4020, L300.8000 #### [facility] [address] [place], [address] Neutrophils/100 WBC (Bld) 63.9 % Normal 47-70 [facility] Comment on above: Performed By: #### L 500.3400, L501.2450, L100.0100, L500.2500, L501.4020, L300.8000 #### [facility] [address] [place], [address] Nucleated RBC (Bld) [#/Vol] 0 10*3/uL Normal 0-5 [facility] Comment on above: Performed By: #### L 500.3400, L501.2450, L100.0100, L500.2500, L501.4020, L300.8000 #### [facility] [address] [place], [address] Platelet mean volume (Bld) [Entitic vol] 8.6 fL Normal 6.2-12.0 [facility] Comment on above: Performed By: #### L 500.3400, L501.2450, L100.0100, L500.2500, L501.4020, L300.8000 #### [facility] [address] [place], [address] Platelets (Bld) [#/Vol] 477 10*3/uL High 150-450 [facility] Comment on above: Performed By: #### L 500.3400, L501.2450, L100.0100, L500.2500, L501.4020, L300.8000 #### [facility] [address] [place], [address] RBC (Bld) [#/Vol] 5.30 10*6/uL Normal 4.6-6.2 [facility] Comment on above: Performed By: #### L 500.3400, L501.2450, L100.0100, L500.2500, L501.4020, L300.8000 #### [facility] [address] [place], [address] RDW SD 47.9 fl High 35.1-43.9 [facility] Comment on above: Performed By: #### L 500.3400, L501.2450, L100.0100, L500.2500, L501.4020, L300.8000 #### [facility] [address] [place], [address] WBC (Bld) [#/Vol] 14.4 10*3/uL High 4.4-11.0 [facility] Comment on above: Performed By: #### L 500.3400, L501.2450, L100.0100, L500.2500, L501.4020, L300.8000 #### [facility] [address] [place], [address] CTA Chest W/WO Contraston CTA Chest W/WO Contrast [facility] Imaging Services [address] [place] [address] CTA Chest W/WO Contrast MR#: [id number] Acct: [id number] Name: BAUTISTA RUFFIN Rep #: [id number] : 1960 M 64 From: Melanie Bonner i, DO PCP: [facility] Status: [facility] ER Study: CTA Chest W/WO Contrast Date of Exam: 07/13/24 Exam# [id number] Ordering Dr: Richie Borden DO PROCEDURE: CT angiogram of the chest with IV contrast. REASON FOR EXAM: Chest pain and elevated D-dimer. TECHNIQUE: After IV contrast administration, contiguous axial CT images were obtained through the chest. Sagittal and coronal reformats were created. Maximum intensity projection images were created and reviewed. COMPARISON: Noncontrast CT chest 06/11/2024 FINDINGS: Bones are osteopenic with degenerative changes of the spine. There is mild rightward convex curvature of the midthoracic spine included upper abdominal structures grossly unremarkable, although evaluation is limited due to streak artifact from the patient's arms. Heart is not enlarged. No sizable pericardial effusion. Thoracic aorta normal in caliber, without evidence of dissection or aneurysm. Origins of the arch vessels are patent. Moderate coronary artery calcifications are present. Included thyroid unremarkable. No thoracic adenopathy. No pulmonary arterial filling defect. Minimal secretions in the proximal left mainstem bronchus. Central airways otherwise clear. Lungs are emphysematous without pneumothorax. Similar to minimally worsened consolidation posterior left lower lobe. Some thickening along the lateral margin of the left major fissure on image 135 axial images not significantly changed. A few tiny nodules in the left upper lobe, the largest at 6 mm, not significantly different. Similar 8 mm juxtapleural nodule posterior right upper lobe image 211 of the axial images. A few nodules in the lateral right lower lobe on axial images 147-151, measuring up to 1 cm, grossly unchanged. Other smaller nodules in the right lung are not significantly different. No thoracic adenopathy. CT/CTA Chest W/WO Contrast IMPRESSION: No definite acute findings in the chest. No pulmonary embolism or thoracic aortic dissection. Moderate pulmonary emphysema. Similar to slightly worsened left lower lobe consolidation/pneumoni a. Recommend continued CT follow-up to document resolution. Grossly unchanged bilateral pulmonary nodules, the largest in the right lower lobe at 1 cm. No thoracic adenopathy. Recommend follow-up chest CT in 3-6 months to document stability. Moderate coronary artery calcifications. One or more dose reduction techniques were used (e.g., Automated exposure control, adjustment of the mA and/or kV according to patient size, use of iterative reconstruction technique). Reading Location: [facility] CC: Richie Borden DO; [facility] Terrazzo Grinder: Signed Normal [facility] Carbon dioxide measurementOr dered By: Richie Borden on 07-13-2024 CO2 [Moles/Vol] 27.0 mmol/L 21.0-32.0 [facility] Chest 1 View (Portable)on Chest 1 View (Portable) [facility] Imaging Services [address] [place], [place] [address] Chest 1 View (Portable) MR#: [id number] Acct: [id number] Name: BAUTISTA RUFFIN Rep #: [id number] : 1960 M 64 From: Melanie Bonner i, DO PCP: [facility] Status: REG ER Study: Chest 1 View (Portable) Date of Exam: 07/13/24 Exam# [id number] Ordering Dr: Richie Borden DO PROCEDURE: Portable upright chest radiograph, one view REASON FOR EXAM: Chest pain TECHNIQUE: A single AP view of the chest was obtained. COMPARISON: Chest CT 06/11/2024 and chest radiograph 06/11/2024. FINDINGS: The cardiomediastinal silhouette is similar. Monitoring leads overlie the chest. Bones are osteopenic, grossly intact. No pneumothorax, pulmonary vascular congestion, or sizable pleural effusion. Coarse interstitial markings projecting over the right upper lobe on the prior chest radiograph are less conspicuous. There is a vague streaky density or nodule projecting over the lateral right upper lobe, which may correspond to a 9 mm nodule in the lateral superior segment right lower lobe on the comparison chest CT. The lungs appear emphysematous. RAD/Chest 1 View (Portable) IMPRESSION: The lungs appear emphysematous. Less conspicuous coarse interstitial markings in the right upper lobe compared to the prior study of 06/12/2024, which may represent improved interstitial pneumonia. There is no large focal airspace consolidation or pleural effusion demonstrated. Vague nodular density projecting over the lateral right upper lobe, which may correspond to a 9 mm nodule in the lateral superior segment right lower lobe on the comparison chest CT. No older comparison studies are available. Recommend a follow-up chest CT in 6 months to document stability. PET scan may also be considered to evaluate for metabolic activity. Reading Location[facility] CC: Richie Borden DO; [facility] Terrazzo Grinder: Signed Normal [facility] Chloride measurementOrdered By: Richie Borden on 02-15-2025 Chloride [Moles/Vol] 104 mmol/L 98-107 [facility] D-Dimer Quantitative (DVT/PE )on 07-13-2024 D-DIMER QUANT 0.88 FEU/ug/m Invalid Interpretation Code 0.27-0.49 [facility] Comment on above: Result Comment: D-Di rick ELEVATED (>0.49): Additional studies and clinical assessments are indicated to conclude diagnosis of: Deep Vein Thrombosis (DVT) or Pulmonary Embolism (PE) CRITICAL VALUE CALLED TO ABISAI SALVATORE 07/13/24 Josue Osorio. RESULTS READ BACK BY SAME. Performed By: #### L 500.3400, L501.2450, L100.0100, L500.2500, L501.4020, L300.8000 #### [facility] [address] [place], [address] D-dimer measurement for deep venous thrombosisOrdered By: Richie Borden on 07-13-2024 D-Dimer Quantitative (PE/DVT) 0.88 FEU/ug/m High 0.27-0.49 [facility] Comment on above: D-Dimer ELEVATED (>0 .49): Additional studies and clinicalassessments are indicated to conclude diagnosis of:Deep Vein Thrombosis (DVT) or Pulmonary Embolism (PE)CRITICAL VALUE CALLED TO ABISAI [facility]07/13/24 Josue Osorio.RESULTS READ BACK BY SAME. Emergency Department Summary on 07-13-2024 Emergency Department Summary [facility] Medical Records Department [address] [place] [address] Emergency Department Summary 07/13/24 MR#: [id number] Acct: [id number] Name: BAUTISTA RUFFIN Rep #: [id number] : 1960 64 From: Richie Borden DO PCP: [facility] Status:REG ER Location: ED HPI History of Present Illness Chief Complaint: Chest Pain Informant: patient and EMS Narrative Narrative: Patient is a 64-year-old male with past medical history of hypertension paraplegia anxiety and depression. He reports that over the last 2 days he has been experiencing lower midsternal chest discomfort. He states that it has been more intermittent and states that when the discomfort comes on he does seem to have bouts of sweating. He denies any fevers or chills or cough or sick symptoms. He denies any abdominal discomfort. 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 Neurogenic bladder Benign essential hypertension Home Medications ???Medication ???Instructions ???Recorded ???Last Taken ???Type baclofen 20 mg tablet 20 mg PO TID muscle spasms 3 06/27/21 History multivitamin with folic acid 400 1 tab PO LUNCH supplemeny 02/26/13 06/27/21 History mcg tablet (Thera) gabapentin 100 mg capsule 900 mg PO TID neuropathy 04/19/13 06/27/21 History nortriptyline 50 mg capsule 100 mg PO QHS anxiety 01/19/19 History ascorbic acid (vitamin C) 1,000 mg 1 g PO DAILY Check with primary 06/28/21 Unknown History tablet (Vitamin C) doctor cholecalciferol (vitamin D3) 50 50 mcg PO DAILY Check with primary 06/28/21 Unknown History mcg (2,000 unit) capsule (Vitamin doctor D3) docusate sodium 100 mg capsule 100 mg PO BID Check with primary 0 06/28/21 Unknown History doctor loratadine 10 mg capsule 10 mg PO DAILY Check with primary 06/28/21 Unknown History doctor venlafaxine 75 mg tablet 150 mg PO DAILY Check with primary 06/28/21 Unknown History doctor apixaban 2.5 mg tablet (Eliquis) 2.5 mg PO BID 30 days #60 tabs 06/19 Unknown Rx aspirin 81 mg tablet,delayed 81 mg PO BREAKFAST heart health 30 06/29/21 Unknown Rx release days #30 tabs carvedilol 6.25 mg tablet 6.25 mg PO BID heart 30 days #60 0 06/29/21 Unknown Rx tabs lisinopril 2.5 mg tablet 2.5 mg PO DAILY #30 tabs 07/06/21 Unknown Rx ondansetron 4 mg disintegrating 4 mg PO Q8H PRN nausea and 3 Unknown Rx tablet vomiting #10 tabs buprenorphine 10 mcg/hour weekly 1 patch transdermal Q7D pain 06/1106/14/24 History transdermal patch rosuvastatin 10 mg tablet (Crestor) 20 mg PO DAILY 06/16/24 Unknown History azithromycin 250 mg tablet See Rx Instructions PO .COMPLEX #6 07/13/24 Unknown Rx (Zithromax Z-Elio) tabs doxycycline monohydrate 100 mg 100 mg PO BID 10 days #20 CAPSULES 07/13/24 Unknown Rx capsule Allergy/AdvReac Type Severity Reaction Status Date / Time No Known Allergies Allergy Verified 07/13/24 02:28 Family History Father CVA (cerebral vascular accident) Heart disease Myocardial infarction Surgical History History of coronary artery stent placement (06/28/21) History of femoral derotational osteotomy History of appendectomy History of suprapubic catheter Hx of colostomy Colostomy in place Social History household members: spouse Smoking Status: Light Smoker (<10/day) alcohol intake: former substance use type: marijuana ROS ROS ED Constitutional Constitutional ED: Reports sweats; Denies chills or fever(s) Eyes Eyes: Denies change in vision ENT ENT ED: Denies rhinorrhea or sore throat Cardiovascular Cardiovascular: Reports chest pain; Denies palpitations or racing heartbeat Respiratory/Chest Respiratory/Chest: Denies cough or dyspnea Gastrointestinal Gastrointestinal: Denies abdominal pain, diarrhea, nausea or vomiting Integumentary Denies rash Neurologic Neurologic: Denies headache(s) Hematologic/Lymphatic Hematologic/Lymphatic: Reports easy bleeding and easy bruising EXAM Physical Exam Const Vital Signs: 07/13/24 02:28 07/13/24 02:32 07/13/24 03:28 Temperature 97.6 F L Temperature (more content not included)... Normal [facility] Eosinophil percentageOrdered By: Richie Borden on 07-13-2024 Eosinophils/100 WBC (Bld) 3.1 % 0-5 [facility] Erythrocyte distribution wid th (RBC) [Ratio]Ordered By: Richie Borden on 07-13-2024 Erythrocyte distribution width (RBC) [Entitic vol] 47.9 fL High 35.1-43.9 [facility] Erythrocyte distribution wid th ratioOrdered By: iRchie Borden on 07-13-2024 Erythrocyte distribution width (RBC) [Ratio] 15.9 % High 11.6-14.6 [facility] Erythrocyte distribution wid th standard deviationOrdered By: Richie Borden on 07-13-2024 Erythrocyte distribution width (RBC) [Ratio] 47.9 fl High 35.1-43.9 [facility] Estimated glomerular filtrat ion rate (GFR) AmericanOrdered By: Richie Borden on 07-13-2024 Estimated GFR (MDRD) Amer 166 mL/min >60 [facility] Comment on above: GFR Calc Estimation of creatinine elzbieta aranceOrdered By: Richie Borden on 07-13-2024 Estimated Creatinine Clearance Calc 120.02 ml/min [facility] Glomerular filtration rate ( GFR) estimationOrdered By: Richie Borden on 07-13-2024 Estimated GFR (MDRD) Non-Af Amer 137 mL/min >60 [facility] Comment on above: Non- GFR Calc GFR/1.73 sq M.predicted among non-blacks MDRD (S/P/Bld) [Vol rate/Area] 137 mL/min/{1.73_m2} >60 [facility] Comment on above: Non- GFR Calc Glucose measurementOrdered B y: Richie Borden on 07-13-2024 Glucose [Mass/Vol] 122 mg/dL High 74-106 [facility] Comment on above: Fasting Glucose resu lt from 100 to 125 mg/dL suggests IMPAIRED HOMEOSTASIS per A.D.A. criteria. Hematocrit Auto (Bld) [Volum e fraction]Ordered By: Richie Borden on 07-13-2024 Hematocrit (Bld) [Volume fraction] 43.8 % 40-54 [facility] Hemoglobin measurementOrdere d By: Richie Borden on 07-13-2024 Hemoglobin (Bld) [Mass/Vol] 14.2 g/dL 13.0-16. 5 [facility] Immature granulocytes/100 WB C Auto (Bld)Ordered By: Richie Borden on 07-13-2024 Immature granulocytes/100 WBC (Bld) 0.400 % 0.0-0.9 [facility] Comment on above: IG% - Immature Granu locytes (promyelocytes, myelocytes and metamyelocytes) > 1% indicates that a LEFT SHIFT is Present. Influenza virus A and B and SARS-CoV-2 (COVID-19) and Respiratory syncytial virus RNAOrdered By: Richie Borden on 07-13-2024 SARS-CoV-2 (COVID-19) RNA ZEKE+probe Ql (Unsp spec) [facility] L501.4020on 07-13-2024 TROPONIN-I HS 6 pg/mL Normal 3.0-78.0 [facility] Comment on above: Order Comment: 'TROP ' Serial specimen #1, #2 or #3: 1 Result Comment: Plea se Note: New Test Units and Gender Specific Reference Ranges. For more information see Policy Stat Procedure Reserve High Sensitivity Troponin (TNIH) and attachments. Performed By: #### L 500.3400, L501.2450, L100.0100, L500.2500, L501.4020, L300.8000 #### [facility] [address] [place], [place], [phone] (619) TROPONIN-I HS 7 pg/mL Normal 3.0-78.0 [facility] Comment on above: Order Comment: 'TROP ' Serial specimen #1, #2 or #3: 1 Result Comment: Plea se Note: New Test Units and Gender Specific Reference Ranges. For more information see Policy Stat Procedure Reserve High Sensitivity Troponin (TNIH) and attachments. Performed By: #### L 500.3400, L501.2450, L100.0100, L500.2500, L501.4020, L300.8000 #### [facility] [address] [place], [address] Laboratory - Chemistry and C hemistry - challengeOrdered By: Richie Borden on 07-13-2024 AST [Catalytic activity/Vol] 25 U/L 15-37 [facility] Lipaseon 07-13-2024 Lipase [Catalytic activity/Vol] 17 U/L Low 73-393 [facility] Comment on above: Order Comment: 'TROP ' Serial specimen #1, #2 or #3: 1 Performed By: #### L 500.3400, L501.2450, L100.0100, L500.2500, L501.4020, L300.8000 #### [facility] [address] [place], [address] Lipase measurementOrdered By : Richie Borden on 07-13-2024 Lipase [Catalytic activity/Vol] 17 U/L Low 73-393 [facility] Liver Profileon 07-13-2024 Albumin [Mass/Vol] 2.5 g/dL Low 3.2-5.0 [facility] Comment on above: Order Comment: 'TROP ' Serial specimen #1, #2 or #3: 1 Performed By: #### L 500.3400, L501.2450, L100.0100, L500.2500, L501.4020, L300.8000 #### [facility] [address] [place], [address] ALK P 124 U/L High 45-117 [facility] Comment on above: Order Comment: 'TROP ' Serial specimen #1, #2 or #3: 1 Performed By: #### L 500.3400, L501.2450, L100.0100, L500.2500, L501.4020, L300.8000 #### [facility] [address] [place], [address] ALT [Catalytic activity/Vol] 24 U/L Normal 16-61 [facility] Comment on above: Order Comment: 'TROP ' Serial specimen #1, #2 or #3: 1 Performed By: #### L 500.3400, L501.2450, L100.0100, L500.2500, L501.4020, L300.8000 #### [facility] [address] [place], [address] AST [Catalytic activity/Vol] 25 U/L Normal 15-37 [facility] Comment on above: Order Comment: 'TROP ' Serial specimen #1, #2 or #3: 1 Performed By: #### L 500.3400, L501.2450, L100.0100, L500.2500, L501.4020, L300.8000 #### [facility] [address] [place], [address] Bilirubin [Mass/Vol] 0.30 mg/dL Normal 0.20-1.00 [facility] Comment on above: Order Comment: 'TROP ' Serial specimen #1, #2 or #3: 1 Result Comment: For patients on eltrombopag therapy, use of Dimension Reserve TBIL is not recommended. Performed By: #### L 500.3400, L501.2450, L100.0100, L500.2500, L501.4020, L300.8000 #### [facility] [address] [place], [address] Bilirubin.direct [Mass/Vol] 0.15 mg/dL Normal 0.00-0.3 0 [facility] Comment on above: Order Comment: 'TROP ' Serial specimen #1, #2 or #3: 1 Performed By: #### L 500.3400, L501.2450, L100.0100, L500.2500, L501.4020, L300.8000 #### [facility] [address] [place], [address] Globulin (S) [Mass/Vol] 5.7 g/dL High 2.2-4.2 [facility] Comment on above: Order Comment: 'TROP ' Serial specimen #1, #2 or #3: 1 Performed By: #### L 500.3400, L501.2450, L100.0100, L500.2500, L501.4020, L300.8000 #### [facility] [address] [place], [address] T PROT 8.2 g/dL Normal 6.4-8.2 [facility] Comment on above: Order Comment: 'TROP ' Serial specimen #1, #2 or #3: 1 Performed By: #### L 500.3400, L501.2450, L100.0100, L500.2500, L501.4020, L300.8000 #### [facility] [address] [place], [address] Lymphocytes Auto (Unsp spec) [#/Vol]Ordered By: Richie Borden on 07-13-2024 Lymphocytes (Bld) [#/Vol] 3.25 10*3/uL 0.83-4.5 1 [facility] Lymphocytes/100 WBC Auto (Un sp spec)Ordered By: Richie Borden on 07-13-2024 Lymphocytes/100 WBC (Bld) 22.6 % 19-41 [facility] M100.678on 07-13-2024 M100.678 SARS-CoV-2 (COVID 19 ) Negative INFLUENZA A Negative INFLUENZA B Negative RSV PCR Negative Normal [facility] Comment on above: Performed By: #### L 500.3400, L501.2450, L100.0100, L500.2500, L501.4020, L300.8000 #### [facility] [address] [place], [address] MCV (mean corpuscular volume ) determinationOrdered By: Richie Borden on 07-13-2024 MCV (RBC) [Entitic vol] 82.6 fL 80-94 [facility] Mean corpuscular hemoglobin (MCH) determinationOrdered By: Richie Borden on 07-13-2024 MCH (RBC) [Entitic mass] 26.8 pg Low 27.0-32.0 [facility] Mean corpuscular hemoglobin concentration (MCHC) determinationOrdered By: Richie Borden on 07-13-2024 MCHC (RBC) [Mass/Vol] 32.4 g/dL 32-36 [facility] Mean platelet volume determi nationOrdered By: Richie Borden on 07-13-2024 Platelet mean volume (Bld) [Entitic vol] 8.6 fL 6.2-12.0 [facility] Monocyte percentageOrdered B y: Richie Borden on 07-13-2024 Monocytes/100 WBC (Bld) 9.5 % 0-10 [facility] Neutrophil percentageOrdered By: Richie Borden on 07-13-2024 Neutrophils/100 WBC (Bld) 63.9 % 47-70 [facility] Nucleated red blood cell per centageOrdered By: Richie Borden on 07-13-2024 Nucleated RBC/100 WBC (Bld) [Ratio] 0 % 0-5 [facility] Platelet countOrdered By: Yvonne Borden on 07-13-2024 Platelets (Bld) [#/Vol] 477 10*3/uL High 150-450 [facility] Potassium measurementOrdered By: Richie Borden on 07-13-2024 Potassium [Moles/Vol] 3.6 mmol/L 3.5-5.1 [facility] RBC Auto (Bld) [#/Vol]Ordere d By: Richie Borden on 07-13-2024 RBC (Bld) [#/Vol] 5.30 10*6/uL 4.6-6.2 [facility] Serum anion gap measurementO rdered By: Richie Borden on 07-13-2024 Anion gap [Moles/Vol] 6 mmol/L 5-15 [facility] Serum globulin measurementOr dered By: Richie Borden on 07-13-2024 Globulin (S) [Mass/Vol] 5.7 g/dL High 2.2-4.2 [facility] Serum or plasma alanine hooper otransferase (ALT) measurementOrdered By: Richie Borden on 07-13-2024 ALT [Catalytic activity/Vol] 24 U/L 16-61 [facility] Serum or plasma albumin shantal urement (mass/volume)Ordered By: Richie Borden on 07-13-2024 Albumin [Mass/Vol] 2.5 g/dL Low 3.2-5.0 [facility] Serum or plasma alkaline radha sphatase measurementOrdered By: Richie Borden on 07-13-2024 ALP [Catalytic activity/Vol] 124 U/L High 45-117 [facility] Serum or plasma calcium shantal urement (mass/volume)Ordered By: Richie Borden on 07-13-2024 Calcium [Mass/Vol] 9.4 mg/dL 8.5-10.1 [facility] Serum or plasma creatinine m easurement (mass/volume)Ordered By: Richie Borden on 07-13-2024 Creatinine [Mass/Vol] 0.63 mg/dL Low 0.70-1.30 [facility] Comment on above: The validity of the calculated GFR & GFRAA in patients over 70 years has not been determined. Clinical correlation is essential. Serum or plasma urea nitroge n measurement (mass/volume)Ordered By: Richie Borden on 07-13-2024 Urea nitrogen [Mass/Vol] 11 mg/dL 7-18 [facility] Sodium levelOrdered By: Yuriy Borden on 07-13-2024 Sodium [Moles/Vol] 137 mmol/L 136-145 [facility] Total proteinOrdered By: Isidro Borden on 07-13-2024 Protein [Mass/Vol] 8.2 g/dL 6.4-8.2 [facility] Troponin IOrdered By: Richie Borden on 07-13-2024 Troponin I 6 pg/mL 3.0-78.0 [facility] Comment on above: Please Note: New Tanya t Units and Gender Specific Reference Ranges. For more information see Policy Stat Procedure Reserve High Sensitivity Troponin (TNIH) and attachments. Troponin I High Sensitivity 6 pg/mL 3.0-78.0 [facility] Comment on above: Please Note: New Tanya t Units and Gender Specific Reference Ranges. For more information see Policy Stat Procedure Reserve High Sensitivity Troponin (TNIH) and attachments. White blood cell (WBC) count Ordered By: Richie Borden on 07-13-2024 WBC (Bld) [#/Vol] 14.4 10*3/uL High 4.4-11.0 [facility] Culture, Blood (WB)on 2024 CUB Blood cultures x2, from two different sites No growth in 5 days. Normal [facility] Comment on above: Performed By: #### L 100.0100, L503.6005, L500.4050, L300.4310, L300.3900, M200.1000 ####[facility] [address] [place], [address] Discharge Instructionon 05-30 Discharge Instruction [facility] Medical Records Department [address] [place] [address] Instructions for Home/Discharge Instructions 06/19/24 1050 MR#: [id number] Acct: [id number] Name: BAUTISTA RUFFIN Rep #: [id number] : 1960 64 From: Darian Arceo MD PCP: [facility] Status:ADM IN Discharge Instructions DC O2, CPAP, BIPAP needs Home O2 Discharge instructions: No Follow Up Care Test Results: Test results from this visit will be discussed in further detail at your follow-up appointment, if applicable. Discharge Plan Admission Admit Date/Time: 06/16/24 19:56 Primary Reason for Your Visit: Pseudomonas associated CAUTI, nonadherence Attending Provider: Darian Arceo Primary Care Provider: [facility],[place] Consulting Providers: Ronak Quiroz Instructions Additional Instructions / Restrictions: Follow-up in wound center for sacral decubitus Discharge Orders/Prescriptions Prescriptions: Continued baclofen 20 MG tablet 20 mg PO TID Patient Comments: MUSCLE SPASMS multivitamin with folic acid [Thera] 1 TABLET tablet 1 tab PO LUNCH Patient Comments: SUPPLEMENT gabapentin 100 MG capsule 900 mg PO TID Patient Comments: NEUROPATHY nortriptyline 50 MG capsule 100 mg PO QHS ascorbic acid (vitamin C) [Vitamin C] 1,000 mg Tablet 1 g PO DAILY venlafaxine 75 mg Tablet 150 mg PO DAILY docusate sodium 100 mg Capsule 100 mg PO BID cholecalciferol (vitamin D3) [Vitamin D3] 50 mcg (2,000 unit) Capsule 50 mcg PO DAILY loratadine 10 mg Capsule 10 mg PO DAILY carvedilol 6.25 mg Tablet 6.25 mg PO BID 30 Days Qty: 60 0RF aspirin 81 mg Tablet,Delayed Release (Dr/Ec) 81 mg PO BREAKFAST 30 Days Qty: 30 0RF Eliquis 2.5 mg Tablet 2.5 mg PO BID 30 Days Qty: 60 0RF ondansetron 4 mg tablet,disintegrating 4 mg PO Q8H PRN (Reason: nausea and vomiting) Qty: 10 0RF buprenorphine 10 mcg/hour patch weekly 1 patch transdermal Q7D Patient Comments: last applied was Monday06/07/2024 rosuvastatin [Crestor] 10 mg tablet 20 mg PO DAILY lisinopril 2.5 mg tablet 2.5 mg PO DAILY Qty: 30 11RF Discontinued Zosyn in dextrose (iso-osm) 3.375 gram/50 mL piggyback 3.375 g IV Q8H 5 Days Rx Instructions: dx: pseudomonas infection. Midline care per protocol. doxycycline hyclate 100 mg capsule 100 mg PO BID Referrals / Follow Up: [facility],[place] [Primary Care Provider] - Maulik Jenkins MD [Med Staff - Active Staff] - Within 1 Month Disposition Disposition (needs filled in before D/C Order can be placed): Home Health Service 06/19/24 1145 Darian Arceo MD CC: Dr. Ronak Quiroz, DO; [facility] Signed Normal [facility] Magnesiumon 06-18-2024 Magnesium [Mass/Vol] 1.9 mg/dL Normal 1.6-2.6 [facility] Comment on above: Performed By: #### L 500.3400, L501.2450, L100.0100, L500.2500, L501.4020, L300.8000 #### [facility] [address] [place], [address] Magnesium measurementOrdered By: Ronak Cui on 06-18-2024 Magnesium [Mass/Vol] 1.9 mg/dL 1.6-2.6 [facility] Phosphoruson 06-18-2024 Phosphate [Mass/Vol] 3.7 mg/dL Normal 2.5-4.9 [facility] Comment on above: Performed By: #### L 500.3400, L501.2450, L100.0100, L500.2500, L501.4020, L300.8000 #### [facility] [address] [place], [place], [phone] Phosphorus measurementOrdere d By: Ronak Cui on 06-18-2024 Phosphorus Level 3.7 mg/dL 2.5-4.9 [facility] Urine Cultureon 06-18-2024 URC Below infection leve l. GNR Poss Pseudomonas sp [place] Count 1000-10,000 Yeast, not Joleen albicans Yeast, not Joleen albicans Normal [facility] Comment on above: Performed By: #### L 500.3400, L501.2450, L100.0100, L500.2500, L501.4020, L300.8000 #### [facility] [address] [place], [place], [id number] Absolute neutrophil countOrd ered By: Ronak Cui on 06-17-2024 Neutrophils (Bld) [#/Vol] 6.1 10*3/uL 2.0-7.7 [facility] Albumin to globulin ratioOrd ered By: Ronak Cui on 06-17-2024 Albumin/Globulin [Mass ratio] 0.6 {ratio} Low 0.9-2.4 [facility] Basophil percentageOrdered B y: Ronak Cui on 06-17-2024 Basophils/100 WBC (Bld) 0.7 % 0-1 [facility] Bilirubin, totalOrdered By: Ronak Cui on 06-17-2024 Bilirubin [Mass/Vol] 0.40 mg/dL 0.20-1.00 [facility] Comment on above: For patients on eltr ombopag therapy, use of Dimension Reserve TBIL is not recommended. Blood urea nitrogen (BUN)/cr eatinine ratioOrdered By: Ronak Cui on 06-17-2024 Urea nitrogen/Creatinine [Mass ratio] 14.0 mg/mg 03-17 [facility] CBC W/Diff, Automatedon 05-30 Absolute Lymph 2.50 X10 3/uL Normal 0.83-4.51 [facility] Comment on above: Performed By: #### L 500.3400, L501.2450, L100.0100, L500.2500, L501.4020, L300.8000 #### [facility] [address] [place], [place], [phone] Absolute Neut 6.1 X10 3/uL Normal 2.0-7.7 [facility] Comment on above: Performed By: #### L 500.3400, L501.2450, L100.0100, L500.2500, L501.4020, L300.8000 #### [facility] [address] [place], [address] Basophils/100 WBC (Bld) 0.7 % Normal 0-1 [facility] Comment on above: Performed By: #### L 500.3400, L501.2450, L100.0100, L500.2500, L501.4020, L300.8000 #### [facility] [address] [place], [address] Eosinophils/100 WBC (Bld) 5.5 % High 0-5 [facility] Comment on above: Performed By: #### L 500.3400, L501.2450, L100.0100, L500.2500, L501.4020, L300.8000 #### [facility] [address] [place], [address] Erythrocyte distribution width (RBC) [Ratio] 16.3 % High 11.6-14.6 [facility] Comment on above: Performed By: #### L 500.3400, L501.2450, L100.0100, L500.2500, L501.4020, L300.8000 #### [facility] [address] [place], [address] Hematocrit (Bld) [Volume fraction] 42.7 % Normal 40-54 [facility] Comment on above: Performed By: #### L 500.3400, L501.2450, L100.0100, L500.2500, L501.4020, L300.8000 #### [facility] [address] [place], [address] Hemoglobin (Bld) [Mass/Vol] 13.9 g/dL Normal 13.0-16. 5 [facility] Comment on above: Performed By: #### L 500.3400, L501.2450, L100.0100, L500.2500, L501.4020, L300.8000 #### [facility] [address] [place], [address] IG% 0.700 Normal 0.0-0.9 [facility] Comment on above: Result Comment: IG% - Immature Granulocytes (promyelocytes, myelocytes and metamyelocytes) > 1% indicates that a LEFT SHIFT is Present. Performed By: #### L 500.3400, L501.2450, L100.0100, L500.2500, L501.4020, L300.8000 #### [facility] [address] [place], [address] Lymphocytes/100 WBC (Bld) 24.1 % Normal 19-41 [facility] Comment on above: Performed By: #### L 500.3400, L501.2450, L100.0100, L500.2500, L501.4020, L300.8000 #### [facility] [address] [place], [address] MCH (RBC) [Entitic mass] 27.7 pg Normal 27.0-32.0 [facility] Comment on above: Performed By: #### L 500.3400, L501.2450, L100.0100, L500.2500, L501.4020, L300.8000 #### [facility] [address] [place], [address] MCHC (RBC) [Mass/Vol] 32.6 g/dL Normal 32-36 [facility] Comment on above: Performed By: #### L 500.3400, L501.2450, L100.0100, L500.2500, L501.4020, L300.8000 #### [facility] [address] [place], [address] MCV (RBC) [Entitic vol] 85.2 fL Normal 80-94 [facility] Comment on above: Performed By: #### L 500.3400, L501.2450, L100.0100, L500.2500, L501.4020, L300.8000 #### [facility] [address] [place], [address] Monocytes/100 WBC (Bld) 9.9 % Normal 0-10 [facility] Comment on above: Performed By: #### L 500.3400, L501.2450, L100.0100, L500.2500, L501.4020, L300.8000 #### [facility] [address] [place], [address] Neutrophils/100 WBC (Bld) 59.1 % Normal 47-70 [facility] Comment on above: Performed By: #### L 500.3400, L501.2450, L100.0100, L500.2500, L501.4020, L300.8000 #### [facility] [address] [place], [address] Nucleated RBC (Bld) [#/Vol] 0 10*3/uL Normal 0-5 [facility] Comment on above: Performed By: #### L 500.3400, L501.2450, L100.0100, L500.2500, L501.4020, L300.8000 #### [facility] [address] [place], [address] Platelet mean volume (Bld) [Entitic vol] 9.0 fL Normal 6.2-12.0 [facility] Comment on above: Performed By: #### L 500.3400, L501.2450, L100.0100, L500.2500, L501.4020, L300.8000 #### [facility] [address] [place], [address] Platelets (Bld) [#/Vol] 363 10*3/uL Normal 150-450 [facility] Comment on above: Performed By: #### L 500.3400, L501.2450, L100.0100, L500.2500, L501.4020, L300.8000 #### [facility] [address] [place], [address] RBC (Bld) [#/Vol] 5.01 10*6/uL Normal 4.6-6.2 [facility] Comment on above: Performed By: #### L 500.3400, L501.2450, L100.0100, L500.2500, L501.4020, L300.8000 #### [facility] [address] [place], [address] RDW SD 50.2 fl High 35.1-43.9 [facility] Comment on above: Performed By: #### L 500.3400, L501.2450, L100.0100, L500.2500, L501.4020, L300.8000 #### [facility] [address] [place], [address] WBC (Bld) [#/Vol] 10.4 10*3/uL Normal 4.4-11.0 [facility] Comment on above: Performed By: #### L 500.3400, L501.2450, L100.0100, L500.2500, L501.4020, L300.8000 #### [facility] [address] [place], [address] Carbon dioxide measurementOr dered By: Ronak Cui on 06-17-2024 CO2 [Moles/Vol] 24.0 mmol/L 21.0-32.0 [facility] Chloride measurementOrdered By: Ronak Cui on 06-17-2024 Chloride [Moles/Vol] 108 mmol/L High 98-107 [facility] Comprehensive Metabolic Prof ilon 06-17-2024 Albumin [Mass/Vol] 2.4 g/dL Low 3.2-5.0 [facility] Comment on above: Performed By: #### L 500.3400, L501.2450, L100.0100, L500.2500, L501.4020, L300.8000 #### [facility] [address] [place], [address] Albumin/Globulin [Mass ratio] 0.6 {ratio} Low 0.9-2.4 [facility] Comment on above: Performed By: #### L 500.3400, L501.2450, L100.0100, L500.2500, L501.4020, L300.8000 #### [facility] [address] [place], [address] ALK P 130 U/L High 45-117 [facility] Comment on above: Performed By: #### L 500.3400, L501.2450, L100.0100, L500.2500, L501.4020, L300.8000 #### [facility] [address] [place], [address] ALT [Catalytic activity/Vol] 17 U/L Normal 16-61 [facility] Comment on above: Performed By: #### L 500.3400, L501.2450, L100.0100, L500.2500, L501.4020, L300.8000 #### [facility] [address] [place], [address] AST [Catalytic activity/Vol] 20 U/L Normal 15-37 [facility] Comment on above: Performed By: #### L 500.3400, L501.2450, L100.0100, L500.2500, L501.4020, L300.8000 #### [facility] [address] [place], [address] Bilirubin [Mass/Vol] 0.40 mg/dL Normal 0.20-1.00 [facility] Comment on above: Result Comment: For patients on eltrombopag therapy, use of Dimension Reserve TBIL is not recommended. Performed By: #### L 500.3400, L501.2450, L100.0100, L500.2500, L501.4020, L300.8000 #### [facility] [address] [place], [address] BUN/CRE 14.0 RATIO Normal 10-20 [facility] Comment on above: Performed By: #### L 500.3400, L501.2450, L100.0100, L500.2500, L501.4020, L300.8000 #### [facility] [address] [place], [address] CA,Total 8.9 mg/dL Normal 8.5-10.1 [facility] Comment on above: Performed By: #### L 500.3400, L501.2450, L100.0100, L500.2500, L501.4020, L300.8000 #### [facility] [address] [place], [address] Chloride [Moles/Vol] 108 mmol/L High 98-107 [facility] Comment on above: Performed By: #### L 500.3400, L501.2450, L100.0100, L500.2500, L501.4020, L300.8000 #### [facility] [address] [place], [address] CO2 [Moles/Vol] 24.0 mmol/L Normal 21.0-32.0 [facility] Comment on above: Performed By: #### L 500.3400, L501.2450, L100.0100, L500.2500, L501.4020, L300.8000 #### [facility] [address] [place], [address] Creatinine [Mass/Vol] 0.57 mg/dL Low 0.70-1.30 [facility] Comment on above: Result Comment: The validity of the calculated GFR GFRAA in patients over 70 years has not been determined. Clinical correlation is essential. Performed By: #### L 500.3400, L501.2450, L100.0100, L500.2500, L501.4020, L300.8000 #### [facility] [address] [place], [address] ECRCL 132.65 ml/min Normal [facility] Comment on above: Performed By: #### L 500.3400, L501.2450, L100.0100, L500.2500, L501.4020, L300.8000 #### [facility] [address] [place], [address] EST GFR - AA 184 mL/min Normal >60 [facility] Comment on above: Result Comment: Afri can Cypriot GFR Calc Performed By: #### L 500.3400, L501.2450, L100.0100, L500.2500, L501.4020, L300.8000 #### [facility] [address] [place], [address] GAP 6 Normal 5-15 [facility] Comment on above: Performed By: #### L 500.3400, L501.2450, L100.0100, L500.2500, L501.4020, L300.8000 #### [facility] [address] [place], [place], [id number] (835 GFR/1.73 sq M.predicted among non-blacks MDRD (S/P/Bld) [Vol rate/Area] 152 mL/min/{1.73_m2} Normal >60 [facility] Comment on above: Result Comment: Non- GFR Calc Performed By: #### L 500.3400, L501.2450, L100.0100, L500.2500, L501.4020, L300.8000 #### [facility] [address] [place], [place], [phone] (716) Globulin (S) [Mass/Vol] 4.3 g/dL High 2.2-4.2 [facility] Comment on above: Performed By: #### L 500.3400, L501.2450, L100.0100, L500.2500, L501.4020, L300.8000 #### [facility] [address] [place], [address] Glucose [Mass/Vol] 101 mg/dL Normal 74-106 [facility] Comment on above: Result Comment: Fast ing Glucose result from 100 to 125 mg/dL suggests IMPAIRED HOMEOSTASIS per A.D.A. criteria. Performed By: #### L 500.3400, L501.2450, L100.0100, L500.2500, L501.4020, L300.8000 #### [facility] [address] [place], [address] Potassium [Moles/Vol] 3.5 mmol/L Normal 3.5-5.1 [facility] Comment on above: Performed By: #### L 500.3400, L501.2450, L100.0100, L500.2500, L501.4020, L300.8000 #### [facility] [address] [place], [address] Sodium [Moles/Vol] 139 mmol/L Normal 136-145 [facility] Comment on above: Performed By: #### L 500.3400, L501.2450, L100.0100, L500.2500, L501.4020, L300.8000 #### [facility] [address] [place], [address] T PROT 6.7 g/dL Normal 6.4-8.2 [facility] Comment on above: Performed By: #### L 500.3400, L501.2450, L100.0100, L500.2500, L501.4020, L300.8000 #### [facility] [address] [place], [address] Urea nitrogen [Mass/Vol] 8 mg/dL Normal 7-18 [facility] Comment on above: Performed By: #### L 500.3400, L501.2450, L100.0100, L500.2500, L501.4020, L300.8000 #### [facility] [address] [place], [address] Culture, Blood (WB)on 2024 CUB Blood cultures x2, from two different sites No growth in 5 days. Normal [facility] Comment on above: Performed By: #### L 500.3400, L501.2450, L100.0100, L500.2500, L501.4020, L300.8000 #### [facility] [address] [place], [address] CUB Blood cultures x2, from two different sites No growth in 5 days. Normal [facility] Comment on above: Performed By: #### L 500.3400, L501.2450, L100.0100, L500.2500, L501.4020, L300.8000 #### [facility] [address] [place], [address] Eosinophil percentageOrdered By: Ronak Cui on 06-17-2024 Eosinophils/100 WBC (Bld) 5.5 % High 0-5 [facility] Erythrocyte distribution wid th (RBC) [Ratio]Ordered By: Ronak Cui on 06-17-2024 Erythrocyte distribution width (RBC) [Entitic vol] 50.2 fL High 35.1-43.9 [facility] Erythrocyte distribution wid th ratioOrdered By: Ronak Cui on 06-17-2024 Erythrocyte distribution width (RBC) [Ratio] 16.3 % High 11.6-14.6 [facility] Estimated glomerular filtrat ion rate (GFR) AmericanOrdered By: Ronak Cui on 06-17-2024 Estimated GFR (MDRD) Amer 184 mL/min >60 [facility] Comment on above: GFR Calc Estimation of creatinine elzbieta aranceOrdered By: Ronak Cui on 06-17-2024 Estimated Creatinine Clearance Calc 132.65 ml/min [facility] Glomerular filtration rate ( GFR) estimationOrdered By: Ronak Cui on 06-17-2024 Estimated GFR (MDRD) Non-Af Amer 152 mL/min >60 [facility] Comment on above: Non- GFR Calc Glucose measurementOrdered B y: Ronak Cui on 06-17-2024 Glucose [Mass/Vol] 101 mg/dL 74-106 [facility] Comment on above: Fasting Glucose resu lt from 100 to 125 mg/dL suggests IMPAIRED HOMEOSTASIS per A.D.A. criteria. Hematocrit Auto (Bld) [Volum e fraction]Ordered By: Ronak Cui on 06-17-2024 Hematocrit (Bld) [Volume fraction] 42.7 % 40-54 [facility] Hemoglobin measurementOrdere d By: Ronak Cui on 06-17-2024 Hemoglobin (Bld) [Mass/Vol] 13.9 g/dL 13.0-16. 5 [facility] Immature granulocytes/100 WB C Auto (Bld)Ordered By: Ronak Cui on 06-17-2024 Immature granulocytes/100 WBC (Bld) 0.700 % 0.0-0.9 [facility] Comment on above: IG% - Immature Granu locytes (promyelocytes, myelocytes and metamyelocytes) > 1% indicates that a LEFT SHIFT is Present. Laboratory - Chemistry and C hemistry - challengeOrdered By: Ronak Cui on 06-17-2024 AST [Catalytic activity/Vol] 20 U/L 15-37 [facility] Lymphocytes Auto (Unsp spec) [#/Vol]Ordered By: Ronak Cui on 06-17-2024 Lymphocytes (Bld) [#/Vol] 2.50 10*3/uL 0.83-4.5 1 [facility] Lymphocytes/100 WBC Auto (Un sp spec)Ordered By: Ronak Cui on 06-17-2024 Lymphocytes/100 WBC (Bld) 24.1 % 19-41 [facility] MCV (mean corpuscular volume ) determinationOrdered By: Ronak Cui on 06-17-2024 MCV (RBC) [Entitic vol] 85.2 fL 80-94 [facility] Magnesiumon 06-17-2024 Magnesium [Mass/Vol] 1.8 mg/dL Normal 1.6-2.6 [facility] Comment on above: Performed By: #### L 500.3400, L501.2450, L100.0100, L500.2500, L501.4020, L300.8000 #### [facility] [address] [place], [address] Mean corpuscular hemoglobin (MCH) determinationOrdered By: Ronak Cui on 06-17-2024 MCH (RBC) [Entitic mass] 27.7 pg 27.0-32.0 [facility] Mean corpuscular hemoglobin concentration (MCHC) determinationOrdered By: Ronak Cui on 06-17-2024 MCHC (RBC) [Mass/Vol] 32.6 g/dL 32-36 [facility] Mean platelet volume determi nationOrdered By: Ronak Cui on 06-17-2024 Platelet mean volume (Bld) [Entitic vol] 9.0 fL 6.2-12.0 [facility] Monocyte percentageOrdered B y: Ronak Cui on 06-17-2024 Monocytes/100 WBC (Bld) 9.9 % 0-10 [facility] Neutrophil percentageOrdered By: Ronak Cui on 06-17-2024 Neutrophils/100 WBC (Bld) 59.1 % 47-70 [facility] Nucleated red blood cell per centageOrdered By: Ronak Cui on 06-17-2024 Nucleated RBC/100 WBC (Bld) [Ratio] 0 % 0-5 [facility] Phosphoruson 06-17-2024 Phosphate [Mass/Vol] 3.2 mg/dL Normal 2.5-4.9 [facility] Comment on above: Performed By: #### L 500.3400, L501.2450, L100.0100, L500.2500, L501.4020, L300.8000 #### [facility] [address] [place], [place], [address] Platelet countOrdered By: Thomas Cui on 06-17-2024 Platelets (Bld) [#/Vol] 363 10*3/uL 150-450 [facility] Potassium measurementOrdered By: Ronak Cui on 06-17-2024 Potassium [Moles/Vol] 3.5 mmol/L 3.5-5.1 [facility] RBC Auto (Bld) [#/Vol]Ordere d By: Ronak Cui on 06-17-2024 RBC (Bld) [#/Vol] 5.01 10*6/uL 4.6-6.2 [facility] Serum anion gap measurementO rdered By: Ronak Cui on 06-17-2024 Anion gap [Moles/Vol] 6 mmol/L 5-15 [facility] Serum globulin measurementOr dered By: Ronak Cui on 06-17-2024 Globulin (S) [Mass/Vol] 4.3 g/dL High 2.2-4.2 [facility] Serum or plasma alanine hooper otransferase (ALT) measurementOrdered By: Ronak Cui on 06-17-2024 ALT [Catalytic activity/Vol] 17 U/L 16-61 [facility] Serum or plasma albumin shantal urement (mass/volume)Ordered By: Ronak Cui on 06-17-2024 Albumin [Mass/Vol] 2.4 g/dL Low 3.2-5.0 [facility] Serum or plasma alkaline radha sphatase measurementOrdered By: Ronak Cui on 06-17-2024 ALP [Catalytic activity/Vol] 130 U/L High 45-117 [facility] Serum or plasma calcium shantal urement (mass/volume)Ordered By: Ronak Cui on 06-17-2024 Calcium [Mass/Vol] 8.9 mg/dL 8.5-10.1 [facility] Serum or plasma creatinine m easurement (mass/volume)Ordered By: Ronak Cui on 06-17-2024 Creatinine [Mass/Vol] 0.57 mg/dL Low 0.70-1.30 [facility] Comment on above: The validity of the calculated GFR & GFRAA in patients over 70 years has not been determined. Clinical correlation is essential. Serum or plasma urea nitroge n measurement (mass/volume)Ordered By: Ronak Cui on 06-17-2024 Urea nitrogen [Mass/Vol] 8 mg/dL 7-18 [facility] Sodium levelOrdered By: Johnny Cui on 06-17-2024 Sodium [Moles/Vol] 139 mmol/L 136-145 [facility] TSH QnOrdered By: Ronak muro on 06-17-2024 Thyroid Stimulating Hormone (TSH) 5.010 uIU/mL High 0.358-3.74 0 [facility] Thyroid Stim Hormone (TSH)on 06-17-2024 TSH 5.010 uIU/mL High 0.358-3.74 0 [facility] Comment on above: Performed By: #### L 500.3400, L501.2450, L100.0100, L500.2500, L501.4020, L300.8000 #### [facility] [address] [facility] [place], [address] Total proteinOrdered By: Juan Cui on 06-17-2024 Protein [Mass/Vol] 6.7 g/dL 6.4-8.2 [facility] White blood cell (WBC) count Ordered By: Ronak Cui on 06-17-2024 WBC (Bld) [#/Vol] 10.4 10*3/uL 4.4-11.0 [facility] 12 Lead EKGon 06-16-2024 12 Lead EKG [facility] Services [address] [place] [address] 12 Lead EKG 06/16/24 1713 MR#: [id number] Acct: [id number] Name: BAUTISTA RUFFIN Rep #: [id number] : 1960 64 From: Zackary Costello MD Attending Dr: Dr. Darian Arceo MD Status: ADM IN Ordering Dr: Christian Merlos MD Date: 06/16/24 Location: [facility] – [place] Sex: M C Admitted: 06/16/24 Test Reason : Blood Pressure : */* mmHG Vent. Rate : 81 BPM Atrial Rate : 81 BPM P-R Int : 132 ms QRS Dur : 88 ms QT Int : 412 ms P-R-T Axes : 15 62 61 degrees QTcB Int : 478 ms Normal sinus rhythm Normal ECG Confirmed by NOEMI MARR, ALAN ([id number]), video news editor AURORA FOURNIER ([id number]) on 06/17/2024 10:59:05 AM Referred By: Confirmed By: ALAN COSTELLO MD 06/17/24 1059 Date Zackary Costello MD CC: Dr. Christian Merlos MD; Dr. Darian Arceo MD; [facility] Signed Normal [facility] Bilirubin Test strip Ql (U)O rdered By: Christian Merlos on 06-16-2024 Bilirubin Ql (U) Negative Negative [facility] Blood cultureOrdered By: Dorina Merlos on 06-16-2024 Bacteria identified Cx Nom (Bld) No growth in 5 days. [facility] Bacteria identified Cx Nom (Bld) No growth in 5 days. [facility] Brain/Head without Contrasto n 06-16-2024 Brain/Head without Contrast [facility] Imaging Services [address] [place], [place] [address] Brain/Head without Contrast MR#: [id number] Acct: [id number] Name: BAUTISTA RUFFIN Rep #: [id number] : 1960 M 64 From: Geraldo Figueroa PCP: [facility] Status: REG ER Study: Brain/Head without Contrast Date of Exam: 05/29 02/20 Exam# [id number] Ordering Dr: Christian Merlos MD [id number] STUDY: CT BRAIN WITHOUT CONTRAST REASON FOR EXAM: Male, 64 years old. Headache, anticoagulated Individualized dose optimization techniques were used for this CT. TECHNIQUE: Transaxial CT imaging of the brain was performed without administration of intravenous contrast material. COMPARISON: MRI 10/03/2009 FINDINGS: There are calcifications around the carotid artery. These are noted in the cavernous carotid arteries. Normal calvarium. Normal soft tissues. Prominent extra-axial spaces. There is mild cerebral atrophy with widening of the extra-axial spaces and ventricular dilatation. There are areas of decreased attenuation within the white matter tracts of the supratentorial brain, consistent with microvascular disease changes. Normal basal ganglia and thalami. Normal brainstem. There is mild cerebellar atrophy. There is no intracranial hemorrhage. There are no findings of an acute ischemic infarction. Normal visualized paranasal sinuses. ASPECTS Score for Acute Strokes: 03/07 CT/Brain/Head without Contrast IMPRESSION: There are no acute findings. Chronic involutional changes of the brain. Electronically Signed: Geraldo Bowling MD at 18:11 EST Reading Location ID and State: [facility] / [place] , Service support , CC: Dr. Christian Merlos MD; [facility] Terrazzo Grinder: Signed Normal [facility] CBC W/Diff, Automatedon 05-29 Absolute Lymph 2.25 X10 3/uL Normal 0.83-4.51 [facility] Comment on above: Performed By: #### L 100.0100, L503.6005, L500.4050, L300.4310, L300.3900, M200.1000 #### [facility] [address] [place], [address] Absolute Neut 10.0 X10 3/uL High 2.0-7.7 [facility] Comment on above: Performed By: #### L 100.0100, L503.6005, L500.4050, L300.4310, L300.3900, M200.1000 #### [facility] [address] [place], [address] Basophils/100 WBC (Bld) 0.5 % Normal 0-1 [facility] Comment on above: Performed By: #### L 100.0100, L503.6005, L500.4050, L300.4310, L300.3900, M200.1000 #### [facility] [address] [place], [address] Eosinophils/100 WBC (Bld) 3.2 % Normal 0-5 [facility] Comment on above: Performed By: #### L 100.0100, L503.6005, L500.4050, L300.4310, L300.3900, M200.1000 #### [facility] [address] [place], [address] Erythrocyte distribution width (RBC) [Ratio] 16.1 % High 11.6-14.6 [facility] Comment on above: Performed By: #### L 100.0100, L503.6005, L500.4050, L300.4310, L300.3900, M200.1000 #### [facility] [address] [place], [address] Hematocrit (Bld) [Volume fraction] 44.4 % Normal 40-54 [facility] Comment on above: Performed By: #### L 100.0100, L503.6005, L500.4050, L300.4310, L300.3900, M200.1000 #### [facility] [address] [place], [address] Hemoglobin (Bld) [Mass/Vol] 14.5 g/dL Normal 13.0-16. 5 [facility] Comment on above: Performed By: #### L 100.0100, L503.6005, L500.4050, L300.4310, L300.3900, M200.1000 #### [facility] [address] [place], [address] IG% 0.600 Normal 0.0-0.9 [facility] Comment on above: Result Comment: IG% - Immature Granulocytes (promyelocytes, myelocytes and metamyelocytes) > 1% indicates that a LEFT SHIFT is Present. Performed By: #### L 100.0100, L503.6005, L500.4050, L300.4310, L300.3900, M200.1000 #### [facility] [address] [place], [address] Lymphocytes/100 WBC (Bld) 16.2 % Low 19-41 [facility] Comment on above: Performed By: #### L 100.0100, L503.6005, L500.4050, L300.4310, L300.3900, M200.1000 #### [facility] [address] [place], [address] MCH (RBC) [Entitic mass] 27.8 pg Normal 27.0-32.0 [facility] Comment on above: Performed By: #### L 100.0100, L503.6005, L500.4050, L300.4310, L300.3900, M200.1000 #### [facility] [address] [place], [address] MCHC (RBC) [Mass/Vol] 32.7 g/dL Normal 32-36 [facility] Comment on above: Performed By: #### L 100.0100, L503.6005, L500.4050, L300.4310, L300.3900, M200.1000 #### [facility] [address] [place], [address] MCV (RBC) [Entitic vol] 85.1 fL Normal 80-94 [facility] Comment on above: Performed By: #### L 100.0100, L503.6005, L500.4050, L300.4310, L300.3900, M200.1000 #### [facility] [address] [place], [address] Monocytes/100 WBC (Bld) 7.3 % Normal 0-10 [facility] Comment on above: Performed By: #### L 100.0100, L503.6005, L500.4050, L300.4310, L300.3900, M200.1000 #### [facility] [address] [place], [address] Neutrophils/100 WBC (Bld) 72.2 % High 47-70 [facility] Comment on above: Performed By: #### L 100.0100, L503.6005, L500.4050, L300.4310, L300.3900, M200.1000 #### [facility] [address] [place], [address] Nucleated RBC (Bld) [#/Vol] 0 10*3/uL Normal 0-5 [facility] Comment on above: Performed By: #### L 100.0100, L503.6005, L500.4050, L300.4310, L300.3900, M200.1000 #### [facility] [address] [place], [address] Platelet mean volume (Bld) [Entitic vol] 8.7 fL Normal 6.2-12.0 [facility] Comment on above: Performed By: #### L 100.0100, L503.6005, L500.4050, L300.4310, L300.3900, M200.1000 #### [facility] [address] [place], [address] Platelets (Bld) [#/Vol] 387 10*3/uL Normal 150-450 [facility] Comment on above: Performed By: #### L 100.0100, L503.6005, L500.4050, L300.4310, L300.3900, M200.1000 #### [facility] [address] [place], [address] RBC (Bld) [#/Vol] 5.22 10*6/uL Normal 4.6-6.2 [facility] Comment on above: Performed By: #### L 100.0100, L503.6005, L500.4050, L300.4310, L300.3900, M200.1000 #### [facility] [address] [place], [address] RDW SD 49.8 fl High 35.1-43.9 [facility] Comment on above: Performed By: #### L 100.0100, L503.6005, L500.4050, L300.4310, L300.3900, M200.1000 #### [facility] [address] [place], [address] WBC (Bld) [#/Vol] 13.9 10*3/uL High 4.4-11.0 [facility] Comment on above: Performed By: #### L 100.0100, L503.6005, L500.4050, L300.4310, L300.3900, M200.1000 #### [facility] [address] [place], [address] Calcium oxalate crystals LM Ql (Urine sed)Ordered By: Christian Merlos on 06-16-2024 Urine Calcium Oxalate Crystals 2+ /hpf [facility] Chest 1 View (Portable)on Chest 1 View (Portable) [facility] Imaging Services [address] [place] [address] Chest 1 View (Portable) MR#: [id number] Acct: [id number] Name: BAUTISTA RUFFIN Rep #: [id number] : 1960 M 64 From: Geraldo Figueroa PCP: [facility] Status: REG ER Study: Chest 1 View (Portable) Date of Exam: 06/16/24 Exam# [id number] Ordering Dr: Christian Merlos [place] [id number] EXAM: XR CHEST, 1 VIEW CLINICAL INDICATION: fevers TECHNIQUE: Frontal view of the chest. COMPARISON: 06/11/2024 FINDINGS: LUNGS AND PLEURAL SPACES: Unremarkable. No consolidation or edema. No pneumothorax. No effusion. HEART: Unremarkable. Cardiac silhouette not enlarged. MEDIASTINUM: Central airways and mediastinal contour are unremarkable. BONES/JOINTS: Unremarkable. No acute fracture. SOFT TISSUES: Unremarkable. TUBES, LINES AND DEVICES: There is a left peripherally inserted central catheter (PICC) tip in the line. Tip in the left axilla. RAD/Chest 1 View (Portable) IMPRESSION: There is a left peripherally inserted central catheter (PICC) tip in the line. Tip in the left axilla. Electronically Signed: Geraldo Bowling MD at 18:12 EST Reading Location ID and State: [facility] / [place] , Service support , CC: Dr. Christian Merlos MD; [facility] Terrazzo Grinder: Signed Normal [facility] Comprehensive Metabolic Prof ilon 06-16-2024 Albumin [Mass/Vol] 2.7 g/dL Low 3.2-5.0 [facility] Comment on above: Performed By: #### L 100.0100, L503.6005, L500.4050, L300.4310, L300.3900, M200.1000 ####[facility] [address] [place], [address] Albumin/Globulin [Mass ratio] 0.6 {ratio} Low 0.9-2.4 [facility] Comment on above: Performed By: #### L 100.0100, L503.6005, L500.4050, L300.4310, L300.3900, M200.1000 ####[facility] [address] [place], [address] ALK P 143 U/L High 45-117 [facility] Comment on above: Performed By: #### L 100.0100, L503.6005, L500.4050, L300.4310, L300.3900, M200.1000 ####[facility] [address] [place], [address] ALT [Catalytic activity/Vol] 19 U/L Normal 16-61 [facility] Comment on above: Performed By: #### L 100.0100, L503.6005, L500.4050, L300.4310, L300.3900, M200.1000 ####[facility] [address] [place], [address] AST [Catalytic activity/Vol] 20 U/L Normal 15-37 [facility] Comment on above: Performed By: #### L 100.0100, L503.6005, L500.4050, L300.4310, L300.3900, M200.1000 ####[facility] [address] [place], [address] Bilirubin [Mass/Vol] 0.40 mg/dL Normal 0.20-1.00 [facility] Comment on above: Result Comment: For patients on eltrombopag therapy, use of Dimension Reserve TBIL is not recommended. Performed By: #### L 100.0100, L503.6005, L500.4050, L300.4310, L300.3900, M200.1000 ####[facility] [address] [place], [address] BUN/CRE 15.7 RATIO Normal 10-20 [facility] Comment on above: Performed By: #### L 100.0100, L503.6005, L500.4050, L300.4310, L300.3900, M200.1000 ####[facility] [address] [place], [address] CA,Total 9.4 mg/dL Normal 8.5-10.1 [facility] Comment on above: Performed By: #### L 100.0100, L503.6005, L500.4050, L300.4310, L300.3900, M200.1000 ####[facility] [address] [place], [address] Chloride [Moles/Vol] 108 mmol/L High 98-107 [facility] Comment on above: Performed By: #### L 100.0100, L503.6005, L500.4050, L300.4310, L300.3900, M200.1000 ####[facility] [address] [facility] [address] CO2 [Moles/Vol] 27.0 mmol/L Normal 21.0-32.0 [facility] Comment on above: Performed By: #### L 100.0100, L503.6005, L500.4050, L300.4310, L300.3900, M200.1000 ####[facility] [address] [place] [id number] Creatinine [Mass/Vol] 0.70 mg/dL Normal 0.70-1.30 [facility] Comment on above: Result Comment: The validity of the calculated GFR GFRAA in patients over 70 years has not been determined. Clinical correlation is essential. Performed By: #### L 100.0100, L503.6005, L500.4050, L300.4310, L300.3900, M200.1000 ####[facility] [address] [facility] [address] ECRCL 108.01 ml/min Normal [facility] Comment on above: Performed By: #### L 100.0100, L503.6005, L500.4050, L300.4310, L300.3900, M200.1000 ####[facility] [address] [facility] [address] EST GFR - AA 146 mL/min Normal >60 [facility] Comment on above: Result Comment: Afri can Cypriot GFR Calc Performed By: #### L 100.0100, L503.6005, L500.4050, L300.4310, L300.3900, M200.1000 ####[facility] [address] [place], [address] GAP 5 Normal 5-15 [facility] Comment on above: Performed By: #### L 100.0100, L503.6005, L500.4050, L300.4310, L300.3900, M200.1000 ####[facility] [address] [place], [address] GFR/1.73 sq M.predicted among non-blacks MDRD (S/P/Bld) [Vol rate/Area] 121 mL/min/{1.73_m2} Normal >60 [facility] Comment on above: Result Comment: Non- GFR Calc Performed By: #### L 100.0100, L503.6005, L500.4050, L300.4310, L300.3900, M200.1000 ####[facility] [address] [place], [address] Globulin (S) [Mass/Vol] 4.8 g/dL High 2.2-4.2 [facility] Comment on above: Performed By: #### L 100.0100, L503.6005, L500.4050, L300.4310, L300.3900, M200.1000 ####[facility] [address] [place], [address] Glucose [Mass/Vol] 114 mg/dL High 74-106 [facility] Comment on above: Result Comment: Fast ing Glucose result from 100 to 125 mg/dL suggests IMPAIRED HOMEOSTASIS per A.D.A. criteria. Performed By: #### L 100.0100, L503.6005, L500.4050, L300.4310, L300.3900, M200.1000 ####[facility] [address] [place], [address] Potassium [Moles/Vol] 3.7 mmol/L Normal 3.5-5.1 [facility] Comment on above: Performed By: #### L 100.0100, L503.6005, L500.4050, L300.4310, L300.3900, M200.1000 ####[facility] [address] [place], [address] Sodium [Moles/Vol] 140 mmol/L Normal 136-145 [facility] Comment on above: Performed By: #### L 100.0100, L503.6005, L500.4050, L300.4310, L300.3900, M200.1000 ####[facility] [address] [place], [address] T PROT 7.5 g/dL Normal 6.4-8.2 [facility] Comment on above: Performed By: #### L 100.0100, L503.6005, L500.4050, L300.4310, L300.3900, M200.1000 ####[facility] [address] [place], [address] Urea nitrogen [Mass/Vol] 11 mg/dL Normal 7-18 [facility] Comment on above: Performed By: #### L 100.0100, L503.6005, L500.4050, L300.4310, L300.3900, M200.1000 ####[facility] [address] [place], [address] Emergency Department Summary on 06-16-2024 Emergency Department Summary [facility] Medical Records Department [address] [place] [address] Emergency Department Summary 06/16/24 MR#: [id number] Acct: [id number] Name: ROMAINEBAUTISTA ADAMSW Rep #: [id number] : 1960 64 From: Christian Merlos MD PCP: [facility] Status:REG ER Location: ED HPI History of Present Illness Chief Complaint: Complaint Informant: patient and EMS Narrative Narrative: 64-year-old male bedridden at home due to paraplegia as well as a right hip fracture which is being treated nonoperatively, he has a suprapubic catheter and a diverting colostomy, he developed a Pseudomonas UTI and was admitted for it about 5 days ago, the culture showed Pseudomonas aeruginosa sensitive to Zosyn and he was discharged home with a PICC line in his left upper extremity and IV Zosyn. He states for reasons that are not exactly cleared him, his has been caring for him and managing the IV medication, she accidentally ruined 2 of the bags, and in the end he has received no home doses of the antibiotic since he has been at home. He states he feels terrible, his symptoms have not improved at all, which is basically myalgias and malaise/lethargy. Denies any abdominal pain, vomiting. States has been having some headaches off and on, he states it is improved right now. 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 Neurogenic bladder Benign essential hypertension Home Medications ???Medication ???Instructions ???Recorded ???Last Taken ???Type baclofen 20 mg tablet 20 mg PO TID muscle spasms 02/26/13 06/27/21 History multivitamin with folic acid 400 1 tab PO LUNCH supplemeny 02/26/13 06/27/21 History mcg tablet (Thera) gabapentin 100 mg capsule 900 mg PO TID neuropathy 04/19/13 06/27/21 History nortriptyline 50 mg capsule 100 mg PO QHS anxiety 01/19/19 06/26/21 History ascorbic acid (vitamin C) 1,000 mg 1 g PO DAILY Check with primary 06/28/21 Unknown History tablet (Vitamin C) doctor cholecalciferol (vitamin D3) 50 50 mcg PO DAILY Check with primary 06/28/21 Unknown History mcg (2,000 unit) capsule (Vitamin doctor D3) docusate sodium 100 mg capsule 100 mg PO BID Check with primary 06/28/21 Unknown History doctor loratadine 10 mg capsule 10 mg PO DAILY Check with primary 06/28/21 Unknown History doctor venlafaxine 75 mg tablet 150 mg PO DAILY Check with primary 06/28/21 Unknown History doctor apixaban 2.5 mg tablet (Eliquis) 2.5 mg PO BID 30 days #60 tabs 06/29/21 Unknown Rx aspirin 81 mg tablet,delayed 81 mg PO BREAKFAST heart health 30 06/29/21 Unknown Rx release days #30 tabs carvedilol 6.25 mg tablet 6.25 mg PO BID heart 30 days #60 06/29/21 Unknown Rx tabs lisinopril 2.5 mg tablet 2.5 mg PO DAILY #30 tabs 07/06/21 Unknown Rx ondansetron 4 mg disintegrating 4 mg PO Q8H PRN nausea and 06/06/22 Unknown Rx tablet vomiting #10 tabs buprenorphine 10 mcg/hour weekly 1 patch transdermal Q7D pain 06/11/24 Unknown History transdermal patch piperacillin-tazobacta m 3.375 3.375 g (56.25 mL) IV Q8H 5 days 06/14/24 Unknown Rx gram/50 mL dextrose(iso-os) IV piggyback (Zosyn) doxycycline hyclate 100 mg capsule 100 mg PO BID 06/16/24 Unknown History rosuvastatin 10 mg tablet (Crestor) 20 mg PO DAILY 06/16/24 Unknown History Allergy/AdvReac Type Severity Reaction Status Date / Time No Known Allergies Allergy Verified 06/11/24 16:19 Family History Father CVA (cerebral vascular accident) Heart disease Myocardial infarction Surgical History History of coronary artery stent placement (06/28/21) History of femoral derotational osteotomy History of appendectomy History of suprapubic catheter Hx of colostomy Colostomy in place Social History household members: spouse Smoking Status: Light Smoker (<10/day) alcohol intake: former substance use type: marijuana ROS ROS ED Constitutional Constitutional ED: Reports body ache(s), chills, fever(s), malaise, subjective and weakness Eyes Eyes: Denies change in vision or diplopia ENT ENT ED: Denies rhinorrhea or sore throat Cardiovascular Cardiovascular: Denies chest pain or palpitations Respiratory/Chest Respiratory/Chest: Denies cough or dyspnea Gastrointestinal Gastrointestinal: Denies abdominal pain, diarrhea, nausea or vomiting Genitourinary Genitourinary ED: Denies dysuria or hemat (more content not included)... Normal [facility] Epithelial cells.squamous LM Ql (Urine sed)Ordered By: Christian Merlos on 06-16-2024 Epithelial cells.squamous LM.HPF (Urine sed) [#/Area] 0 /[HPF] 0-5 [facility] Glucose Ql (U)Ordered By: Rama Merlos on 06-16-2024 Urine Glucose (UA) Normal mg/dl Normal [facility] H AND P Exam - Hospitaliston 06-16-2024 H&P Exam - Hospitalist [facility] Medical Records Department [address] [place] [address] H P Exam - Hospitalist 06/16/24 193 MR#: [id number] Acct: [id number] Name: BAUTISTA RUFFIN Rep #: [id number] : 1960 64 From: Ronak Quiroz DO PCP: [facility] Status:ADM IN Location: [facility] – [place] VC571-2 HPI - General General Date of Admission: 06/16/24 Date of Service: 06/16/24 Chief Complaint: Did Not Give IV ATB's. HPI Narrative BAUTISTA RUFFIN, is a 64 M with a past medical history of essential hypertension; on carvedilol and lisinopril, hyperlipidemia; on rosuvastatin, overweight; with a BMI of 26 this admission, history of tobacco abuse, history of cannabis abuse, history of heavy alcohol abuse, history of CAD; s/p proximal LAD stent (2021) on baby aspirin and ticagrelor, history of X; on apixaban, history of paraplegia, history of transverse myelitis; with neurogenic bladder and history of suprapubic catheter, history of acute paralytic poliomyelitis, history of muscle spasticity; on baclofen 20 mg TID, history of neuropathy; on gabapentin, history of femoral derotational osteotomy, history of appendectomy, history of colostomy, depression with anxiety; on venlafaxine, nortriptyline and as needed lorazepam BID and history of osteomyelitis of the Right hip and history of a pop in his right hip that occurred 8 weeks ago while he was undergoing PT; with subsequent intertrochanteric Right hip fracture suspected to be due to lytic lesions in his femur - s/p evaluation at [facility] with patient not felt to be a surgical candidate and recommended to follow-up with the [facility] and very recent admission here from June 11, 2024 to June 14, 2024 for treatment of Acute Cystitis; with microscopic hematuria likely due to chronic suprapubic catheter with cultures positive for Pseudomonas aeruginosa sensitive to Zosyn complicated by suspected Pneumonia and Metabolic Encephalopathy who was sent home on a 7-day course of IV Zosyn via LUE Mid-Line as recommended by [employer] consultant who now re-presents to [facility] ER complaining his was not sure when to give the antibiotics so she apparently did not give them. Mr. Ruffin understandably states he feels terrible a this time with a return of the UTI symptoms of myalgias, malaise and lethargy that heralded his previous admission. He informed the ER physician his initially ruined 2 bags of the Zosyn and then did not give the rest with patient stunned at the abysmal care he has received at home. He admits to intermittent tension-type headaches induced by elevated stress levels along with nausea but he denies associated abdominal pain, vomiting, constipation, diarrhea, shortness of breath or chest pain. In the ER he was noted to have a UA positive for Acute Cystitis; with microscopic hematuria due to suprapubic catheter with Leukocytosis of 13.9K present on admission complicated by Uncontrolled Hypertension with blood pressure of 180/101 mmHg present on admission CXR revealing the tip of his Mid-Line is in his axilla in the setting of patient's being unable and/or unwilling to give his medications as prescribed constituting and unsafe environment that he cannot be returned to at this time and he was then admitted to the general medical floor for ongoing care for a stay that is expected to extend beyond 2 midnights. 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 Neurogenic bladder Benign essential hypertension Home Medications ???Medication ???Instructions ???Recorded ???Last Taken ???Type baclofen 20 mg tablet 20 mg PO TID muscle spasms 02/26/13 06/27/21 History multivitamin with folic acid 400 1 tab PO LUNCH supplemeny 02/26/13 06/27/21 History mcg tablet (Thera) gabapentin 100 mg capsule 900 mg PO TID neuropathy 04/19/13 06/27/21 History nortriptyline 50 mg capsule 100 mg PO QHS anxiety 01/19/19 06/26/21 History ascorbic acid (vitamin C) 1,000 mg 1 g PO DAILY Check with primary 06/28/21 Unknown History tablet (Vitamin C) doctor cholecalciferol (vitamin D3) 50 50 mcg PO DAILY Check with primary 06/28/21 Unknown History mcg (2,000 unit) capsule (Vitamin doctor D3) docusate sodium 100 mg capsule 100 mg PO BID Check with primary 06/28/21 Unknown History doctor loratadine 10 mg capsule 10 mg PO DAILY Check with primary 06/28/21 Unknown History doctor venlafaxine 75 mg tablet 150 mg PO DAILY Check with primary 06/28/21 Unknown History doctor apixaban 2.5 mg tablet (Eliquis) 2.5 mg PO BID 30 days #60 tabs 06/29/21 (more content not included)... Normal [facility] Hyaline casts LM.LPF (Urine sed) [#/Area]Ordered By: Christian Merlos on 06-16-2024 Hyaline casts LM Ql (Urine sed) 0-5 SEEN /lpf 0-5 [facility] International normalized rat io (INR) calculationOrdered By: Christian Merlos on 06-16-2024 INR Coag (Bld) [Relative time] 1.1 {INR} [facility] Ketones Test strip Ql (U)Ord ered By: Christian Merlos on 06-16-2024 Ketones Ql (U) 5 mg/dl High Negative [facility] Lactic Acidon 06-16-2024 Lactate [Moles/Vol] 1.1 mmol/L Normal 0.4-1.9 [facility] Comment on above: Order Comment: Y Performed By: #### L 100.0100, L503.6005, L500.4050, L300.4310, L300.3900, M200.1000 ####[facility] [address] [place], [place], [id number] Lactic acid measurementOrder ed By: Christian Merlos on 06-16-2024 Lactate [Moles/Vol] 1.1 mmol/L 0.4-2.0 [facility] Microscopic analysis of urin e for red blood cells (RBC)Ordered By: Christian Merlos on 06-16-2024 Urine RBC 10-25 SEEN /hpf 0-5 [facility] Mucus LM Ql (Urine sed)Order ed By: Christian Merlos on 06-16-2024 Mucus Ql (Urine sed) 1+ /hpf [facility] Nitrite Test strip Ql (U)Ord ered By: Christian Merlos on 06-16-2024 Nitrite Ql (U) Positive High Negative [facility] Partial Thromboplast Timeon 06-16-2024 aPTT Coag (Bld) [Time] 43.2 s High 24.1-36.2 [facility] Comment on above: Performed By: #### L 100.0100, L503.6005, L500.4050, L300.4310, L300.3900, M200.1000 ####[facility] [address] [place], [place], [id number] Protein Test strip Ql (U)Ord ered By: Christian Merlos on 06-16-2024 Protein Ql (U) 30 mg/dl High Negative [facility] Prothrombin Time w/INRon INR Coag (PPP) [Relative time] 1.1 {INR} Normal [facility] Comment on above: Performed By: #### L 100.0100, L503.6005, L500.4050, L300.4310, L300.3900, M200.1000 ####[facility] [address] [place], [address] PT Coag (PPP) [Time] 13.9 s Normal 11.7-14.9 [facility] Comment on above: Performed By: #### L 100.0100, L503.6005, L500.4050, L300.4310, L300.3900, M200.1000 ####[facility] [address] [place], [address] Prothrombin timeOrdered By: Christian Merlos on 06-16-2024 PT Coag (PPP) [Time] 13.9 s 11.7-14.9 [facility] Urinalysis, Completeon 06-16 CA OX CRYSTAL 2+ /hpf Normal [facility] Comment on above: Order Comment: 'TROP ' Serial specimen #1, #2 or #3: 1 Performed By: #### L 500.3400, L501.2450, L100.0100, L500.2500, L501.4020, L300.8000 #### [facility] [address] [place], [address] CAST,HYALINE 0-5 SEEN Normal 0-5 [facility] Comment on above: Order Comment: 'TROP ' Serial specimen #1, #2 or #3: 1 Performed By: #### L 500.3400, L501.2450, L100.0100, L500.2500, L501.4020, L300.8000 #### [facility] [address] [place], [address] EPI,SQUAMOUS 0-5 SEEN Normal 0-5 [facility] Comment on above: Order Comment: 'TROP ' Serial specimen #1, #2 or #3: 1 Performed By: #### L 500.3400, L501.2450, L100.0100, L500.2500, L501.4020, L300.8000 #### [facility] [address] [place], [address] RBC 10-25 SEEN Normal 0-5 [facility] Comment on above: Order Comment: 'TROP ' Serial specimen #1, #2 or #3: 1 Performed By: #### L 500.3400, L501.2450, L100.0100, L500.2500, L501.4020, L300.8000 #### [facility] [address] [place], [address] BACTERIA 1+ /hpf Normal None Seen [facility] Comment on above: Order Comment: 'TROP ' Serial specimen #1, #2 or #3: 1 Performed By: #### L 500.3400, L501.2450, L100.0100, L500.2500, L501.4020, L300.8000 #### [facility] [address] [place], [address] WBC 50-100 SEEN Normal 0-5 [facility] Comment on above: Order Comment: 'TROP ' Serial specimen #1, #2 or #3: 1 Performed By: #### L 500.3400, L501.2450, L100.0100, L500.2500, L501.4020, L300.8000 #### [facility] [address] [place], [address] Mucus Ql (Urine sed) 1+ /hpf Normal [facility] Comment on above: Order Comment: 'TROP ' Serial specimen #1, #2 or #3: 1 Performed By: #### L 500.3400, L501.2450, L100.0100, L500.2500, L501.4020, L300.8000 #### [facility] [address] [place], [address] Urine blood detectionOrdered By: Christian Merlos on 06-16-2024 Urine Occult Blood 150 /ul High Negative [facility] Urine clarityOrdered By: Dorina Merlos on 06-16-2024 Clarity (U) Sl. Cloudy Clear [facility] Urine color determinationOrd ered By: Christian Merlos on 06-16-2024 Color (U) Yellow Yellow [facility] Urine cultureOrdered By: Dorina borrerosheeba Gaurang on 06-16-2024 Bacteria identified Cx Nom (U) GNR Poss Pseudomonas sp Abnormal [facility] Bacteria identified Cx Nom (U) Yeast, not Joleen albicans Abnormal [facility] Urine leukocyte esterase det ection by dipstickOrdered By: Christian Merlos on 06-16-2024 Leukocyte esterase Test strip Ql (U) 100 /ul High Negative [facility] Urine pHOrdered By: Christian Merlos on 06-16-2024 pH (U) 6.5 [pH] 5.0 - 8.0 [facility] Urine sediment bacteria coun t by microscopy (number/high power field)Ordered By: Christian Merlos on 06-16-2024 Bacteria LM.HPF (Urine sed) [#/Area] 1 /[HPF] None Seen [facility] Urine specific gravity measu rementOrdered By: Christian Merlos on 06-16-2024 Specific gravity (U) [Rel density] 1.015 1.002-1.03 0 [facility] Urobilinogen Ql (U)Ordered B y: Christian Merlos on 06-16-2024 Urine Urobilinogen Normal mg/dl Normal [facility] White blood cell countOrdere d By: Christian Merlos on 06-16-2024 Urine WBC 50-100 SEEN /hpf 0-5 [facility] aPTT Coag (PPP) [Time]Ordere d By: Christian Merlos on 06-16-2024 aPTT Coag (Bld) [Time] 43.2 s High 24.1-36.2 [facility] Absolute neutrophil countOrd ered By: Darian Arceo on 06-14-2024 Neutrophils (Bld) [#/Vol] 4.4 10*3/uL 2.0-7.7 [facility] Basic Metabolic Profile (BMP )on 06-14-2024 BUN/CRE 12.4 RATIO Normal 10-20 [facility] Comment on above: Performed By: #### L 100.0100, L500.2500 ####[facility] [address] [place], [address] CA,Total 8.5 mg/dL Normal 8.5-10.1 [facility] Comment on above: Performed By: #### L 100.0100, L500.2500 ####[facility] [address] [place], [address] Chloride [Moles/Vol] 111 mmol/L High 98-107 [facility] Comment on above: Performed By: #### L 100.0100, L500.2500 ####[facility] [address] [place], [address] CO2 [Moles/Vol] 26.0 mmol/L Normal 21.0-32.0 [facility] Comment on above: Performed By: #### L 100.0100, L500.2500 ####[facility] [address] [place], [address] Creatinine [Mass/Vol] 0.81 mg/dL Normal 0.70-1.30 [facility] Comment on above: Result Comment: The validity of the calculated GFR GFRAA in patients over 70 years has not been determined. Clinical correlation is essential. Performed By: #### L 100.0100, L500.2500 ####[facility] [address] [place], [address] ECRCL 106.44 ml/min Normal [facility] Comment on above: Performed By: #### L 100.0100, L500.2500 ####[facility] [address] [place], [address] EST GFR - AA 124 mL/min Normal >60 [facility] Comment on above: Result Comment: Afri can Cypriot GFR Calc Performed By: #### L 100.0100, L500.2500 ####[facility] [address] [place], [address] GAP 7 Normal 5-15 [facility] Comment on above: Performed By: #### L 100.0100, L500.2500 ####[facility] [address] [place], [address] GFR/1.73 sq M.predicted among non-blacks MDRD (S/P/Bld) [Vol rate/Area] 102 mL/min/{1.73_m2} Normal >60 [facility] Comment on above: Result Comment: Non- GFR Calc Performed By: #### L 100.0100, L500.2500 ####[facility] [address] [place], [address] Glucose [Mass/Vol] 161 mg/dL High 74-106 [facility] Comment on above: Result Comment: Fast ing Glucose result greater than or equal to 126 mg/dL suggests DIABETES MELLITUS per A.D.A. criteria. Performed By: #### L 100.0100, L500.2500 ####[facility] [address] [place], [address] Potassium [Moles/Vol] 3.2 mmol/L Low 3.5-5.1 [facility] Comment on above: Performed By: #### L 100.0100, L500.2500 ####[facility] [address] [place], [address] Sodium [Moles/Vol] 144 mmol/L Normal 136-145 [facility] Comment on above: Performed By: #### L 100.0100, L500.2500 ####[facility] [address] [place], [address] Urea nitrogen [Mass/Vol] 10 mg/dL Normal 7-18 [facility] Comment on above: Performed By: #### L 100.0100, L500.2500 ####[facility] [address] [place], [address] Basophil percentageOrdered B y: Darian Arceo on 06-14-2024 Basophils/100 WBC (Bld) 0.6 % 0-1 [facility] Blood urea nitrogen (BUN)/cr eatinine ratioOrdered By: Darian Arceo on 06-14-2024 Urea nitrogen/Creatinine [Mass ratio] 12.4 mg/mg 10-20 [facility] CBC W/Diff, Automatedon 05-29 Absolute Lymph 2.62 X10 3/uL Normal 0.83-4.51 [facility] Comment on above: Performed By: #### L 100.0100, L500.2500 ####[facility] [address] [place], [address] Absolute Neut 4.4 X10 3/uL Normal 2.0-7.7 [facility] Comment on above: Performed By: #### L 100.0100, L500.2500 ####[facility] [address] [place], [address] Basophils/100 WBC (Bld) 0.6 % Normal 0-1 [facility] Comment on above: Performed By: #### L 100.0100, L500.2500 ####[facility] [address] [place], [address] Eosinophils/100 WBC (Bld) 6.1 % High 0-5 [facility] Comment on above: Performed By: #### L 100.0100, L500.2500 ####[facility] [address] [place], [address] Erythrocyte distribution width (RBC) [Ratio] 16.3 % High 11.6-14.6 [facility] Comment on above: Performed By: #### L 100.0100, L500.2500 ####[facility] [address] [place], [address] Hematocrit (Bld) [Volume fraction] 40.4 % Normal 40-54 [facility] Comment on above: Performed By: #### L 100.0100, L500.2500 ####[facility] [address] [place], [address] Hemoglobin (Bld) [Mass/Vol] 12.9 g/dL Low 13.0-16. 5 [facility] Comment on above: Performed By: #### L 100.0100, L500.2500 ####[facility] [address] [place], [address] IG% 0.500 Normal 0.0-0.9 [facility] Comment on above: Result Comment: IG% - Immature Granulocytes (promyelocytes, myelocytes and metamyelocytes) > 1% indicates that a LEFT SHIFT is Present. Performed By: #### L 100.0100, L500.2500 ####[facility] [address] [place], [address] Lymphocytes/100 WBC (Bld) 30.6 % Normal 19-41 [facility] Comment on above: Performed By: #### L 100.0100, L500.2500 ####[facility] [address] [place], [address] MCH (RBC) [Entitic mass] 27.8 pg Normal 27.0-32.0 [facility] Comment on above: Performed By: #### L 100.0100, L500.2500 ####[facility] [address] [place], [address] MCHC (RBC) [Mass/Vol] 31.9 g/dL Low 32-36 [facility] Comment on above: Performed By: #### L 100.0100, L500.2500 ####[facility] [address] [place], [address] MCV (RBC) [Entitic vol] 87.1 fL Normal 80-94 [facility] Comment on above: Performed By: #### L 100.0100, L500.2500 ####[facility] [address] [place], [address] Monocytes/100 WBC (Bld) 11.4 % High 0-10 [facility] Comment on above: Performed By: #### L 100.0100, L500.2500 ####[facility] [address] [place], [address] Neutrophils/100 WBC (Bld) 50.8 % Normal 47-70 [facility] Comment on above: Performed By: #### L 100.0100, L500.2500 ####[facility] [address] [place], [address] Nucleated RBC (Bld) [#/Vol] 0 10*3/uL Normal 0-5 [facility] Comment on above: Performed By: #### L 100.0100, L500.2500 ####[facility] [address] [place], [address] Platelet mean volume (Bld) [Entitic vol] 9.0 fL Normal 6.2-12.0 [facility] Comment on above: Performed By: #### L 100.0100, L500.2500 ####[facility] [address] [place], [address] Platelets (Bld) [#/Vol] 340 10*3/uL Normal 150-450 [facility] Comment on above: Performed By: #### L 100.0100, L500.2500 ####[facility] [address] [place], [address] RBC (Bld) [#/Vol] 4.64 10*6/uL Normal 4.6-6.2 [facility] Comment on above: Performed By: #### L 100.0100, L500.2500 ####[facility] [address] [place], [address] RDW SD 51.2 fl High 35.1-43.9 [facility] Comment on above: Performed By: #### L 100.0100, L500.2500 ####[facility] [address] [place], [address] WBC (Bld) [#/Vol] 8.6 10*3/uL Normal 4.4-11.0 [facility] Comment on above: Performed By: #### L 100.0100, L500.2500 ####[facility] [address] [place], [address] Carbon dioxide measurementOr dered By: Darian Arceo on 06-14-2024 CO2 [Moles/Vol] 26.0 mmol/L 21.0-32.0 [facility] Chloride measurementOrdered By: Darian Arceo on 06-14-2024 Chloride [Moles/Vol] 111 mmol/L High 98-107 [facility] Consultation - Infectious Dx on 06-14-2024 Consultation - Infectious Dx [facility] Medical Records Department [address] [place] [address] Consultation - Infectious Dx 06/14/24 1419 MR#: [id number] Acct: [id number] Name: BAUTISTA RUFFIN Rep #: [id number] : 1960 64 From: Maulik Jenkins MD PCP: [facility] Status:ADM IN Location: [facility] – [place] SD992-7 Assessment Plan Assessment/Plan (1) Acute UTI: PLAN: ucx with pseudomonas, feeling better with zosyn, will order midline and 5 more days abx. Will follow as needed, thank you, d/w Dr. Arceo (2) Paraplegia: HPI Consult Data Date of Consult: 06/14/24 HPI Narrative Reason for Consultation: uti HPI Narrative: BAUTISTA RUFFIN, is a 64 M with paraplegia, suprapubic catheter, presented 06/11 with one day of weakness, not feeling well. No fever or chills, no sick contacts, no cough or SOB. Admitted, ucx sent, now on zosyn since 06/13, feeling better. Full ROS performed and neg except as noted above. 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 Neurogenic bladder Benign essential hypertension Home Medications ???Medication ???Instructions ???Recorded ???Last Taken ???Type baclofen 20 mg tablet 20 mg PO TID muscle spasms 02/26/13 06/27/21 History multivitamin with folic acid 400 1 tab PO LUNCH supplemeny 02/26/13 06/27/21 History mcg tablet (Thera) gabapentin 100 mg capsule 900 mg PO TID neuropathy 04/19/13 06/27/21 History nortriptyline 50 mg capsule 100 mg PO QHS anxiety 01/19/19 06/26/21 History ascorbic acid (vitamin C) 1,000 mg 1 g PO DAILY Check with primary 06/28/21 Unknown History tablet (Vitamin C) doctor cholecalciferol (vitamin D3) 50 50 mcg PO DAILY Check with primary 06/28/21 Unknown History mcg (2,000 unit) capsule (Vitamin doctor D3) docusate sodium 100 mg capsule 100 mg PO BID Check with primary 06/28/21 Unknown History doctor loratadine 10 mg capsule 10 mg PO DAILY Check with primary 06/28/21 Unknown History doctor venlafaxine 75 mg tablet 150 mg PO DAILY Check with primary 06/28/21 Unknown History doctor apixaban 2.5 mg tablet (Eliquis) 2.5 mg PO BID 30 days #60 tabs 06/29/21 Unknown Rx aspirin 81 mg tablet,delayed 81 mg PO BREAKFAST heart health 30 06/29/21 Unknown Rx release days #30 tabs carvedilol 6.25 mg tablet 6.25 mg PO BID heart 30 days #60 06/29/21 Unknown Rx tabs rosuvastatin 10 mg tablet (Crestor) 10 mg PO DAILY #30 tabs 06/29/21 Unknown Rx ticagrelor 90 mg tablet (Brilinta) 90 mg PO BID 30 days #60 tabs 06/29/21 Unknown Rx lisinopril 2.5 mg tablet 2.5 mg PO DAILY #30 tabs 07/06/21 Unknown Rx lorazepam 0.5 mg tablet (Ativan) 0.5 mg PO BID PRN nausea and 05/22/22 Unknown Rx vomiting #6 tabs ondansetron 4 mg disintegrating 4 mg PO Q6H PRN nausea and 05/22/22 Unknown Rx tablet vomiting #10 tabs ondansetron 4 mg disintegrating 4 mg PO Q8H PRN nausea and 06/06/22 Unknown Rx tablet vomiting #10 tabs buprenorphine 10 mcg/hour weekly 1 patch transdermal Q7D pain 06/11/24 Unknown History transdermal patch piperacillin-tazobacta m 3.375 3.375 g (56.25 mL) IV Q8H 5 days 06/14/24 Unknown Rx gram/50 mL dextrose(iso-os) IV piggyback (Zosyn) Allergy/AdvReac Type Severity Reaction Status Date / Time No Known Allergies Allergy Verified 06/11/24 16:19 Family History Father CVA (cerebral vascular accident) Heart disease Myocardial infarction Surgical History History of coronary artery stent placement (06/28/21) History of femoral derotational osteotomy History of appendectomy History of suprapubic catheter Hx of colostomy Colostomy in place Social History household members: spouse Smoking Status: Light Smoker (<10/day) alcohol intake: former substance use type: marijuana Physical Exam Const alert, oriented x3 and no apparent distress General Appearance: cooperative HEENT normocephalic and head/scalp atraumatic Eyes PERRL and EOMs intact bilaterally Neck supple and No nodes Resp normal air movement and clear to auscultation bilaterally Cardio regular rate and regular rhythm GI soft to palpation, non-tender and non-distended Extremity General Extremity: Negative for edema Skin no rashes or lesions noted Neuro CN's II-XII intact bilaterally Lab / Micro Data Attestation: I reviewed the patient's lab results. 06/14/24 06:32 06/14/24 06:32 Labs: Laboratory Resul (more content not included)... Normal [facility] Discharge Instructionon 05-29 Discharge Instruction [facility] Medical Records Department [address] [place] [address] Instructions for Home/Discharge Instructions 06/14/24 1127 MR#: [id number] Acct: [id number] Name: ROMAINEBAUTISTA Rep #: [id number] : 1960 64 From: Darian Arceo MD PCP: [facility] Status:ADM IN Discharge Instructions Diet Discharge Diet: No restrictions DC O2, CPAP, BIPAP needs Home O2 Discharge instructions: No Dressing / Incision Discharge Activity: Return to Normal Activity and - (He is bedbound) Weight Bearing Status: Weight bearing as tolerated Dressing / Incision Call your doctor if you observe: Fever of 101 or Higher, Coldness, Increased Pain, Numbness or Tingling, Change in Color, Inability to urinate, Inability to have a bowel movement, Shortness of breath, Dizziness, Fainting spells, Swelling in the ankles, Chest pain, Prolonged hiccupping, Increased palpitations (irregular heartbeat) and Calf discomfort Follow Up Care When: IN 2 WEEKS Test Results: Test results from this visit will be discussed in further detail at your follow-up appointment, if applicable. Discharge Plan Admission Admit Date/Time: 06/11/24 21:41 Primary Reason for Your Visit: Pseudomonas associated UTI Attending Provider: Darian Arceo Primary Care Provider: [facility] Consulting Providers: Ronak Quiroz; Maulik Jenkins Discharge Orders/Prescriptions Prescriptions: New Zosyn in dextrose (iso-osm) 3.375 gram/50 mL piggyback 3.375 g IV Q8H 5 Days Rx Instructions: dx: pseudomonas infection. Midline care per protocol. Continued baclofen 20 MG tablet 20 mg PO TID Patient Comments: MUSCLE SPASMS multivitamin with folic acid [Thera] 1 TABLET tablet 1 tab PO LUNCH Patient Comments: SUPPLEMENT gabapentin 100 MG capsule 900 mg PO TID Patient Comments: NEUROPATHY nortriptyline 50 MG capsule 100 mg PO QHS ascorbic acid (vitamin C) [Vitamin C] 1,000 mg Tablet 1 g PO DAILY venlafaxine 75 mg Tablet 150 mg PO DAILY docusate sodium 100 mg Capsule 100 mg PO BID cholecalciferol (vitamin D3) [Vitamin D3] 50 mcg (2,000 unit) Capsule 50 mcg PO DAILY loratadine 10 mg Capsule 10 mg PO DAILY carvedilol 6.25 mg Tablet 6.25 mg PO BID 30 Days Qty: 60 0RF aspirin 81 mg Tablet,Delayed Release (Dr/Ec) 81 mg PO BREAKFAST 30 Days Qty: 30 0RF Brilinta 90 mg Tablet 90 mg PO BID 30 Days Qty: 60 0RF Eliquis 2.5 mg Tablet 2.5 mg PO BID 30 Days Qty: 60 0RF rosuvastatin [Crestor] 10 mg tablet 10 mg PO DAILY Qty: 30 0RF ondansetron 4 mg tablet,disintegrating 4 mg PO Q6H PRN (Reason: nausea and vomiting) Qty: 10 0RF lorazepam [Ativan] 0.5 mg tablet 0.5 mg PO BID PRN (Reason: nausea and vomiting) Qty: 6 0RF ondansetron 4 mg tablet,disintegrating 4 mg PO Q8H PRN (Reason: nausea and vomiting) Qty: 10 0RF buprenorphine 10 mcg/hour patch weekly 1 patch transdermal Q7D Patient Comments: last applied was Monday06/07/2024 lisinopril 2.5 mg tablet 2.5 mg PO DAILY Qty: 30 11RF Discontinued doxycycline monohydrate 100 mg Capsule 100 mg PO BID ciprofloxacin HCl 500 mg tablet 500 mg PO BID Qty: 14 0RF Referrals / Follow Up[facility] [Primary Care Provider] - Within 2 Weeks Maulik Jenkins MD [Med Staff - Active Staff] - Within 1 Month Disposition Disposition (needs filled in before D/C Order can be placed): Home Health Service 06/14/24 1551 Darian Arceo MD CC: Dr. Ronak Quiroz DO; Dr. Maulik Jenkins MD; [facility] Signed Normal [facility] Eosinophil percentageOrdered By: Darian Arceo on 06-14-2024 Eosinophils/100 WBC (Bld) 6.1 % High 0-5 [facility] Erythrocyte distribution wid th (RBC) [Ratio]Ordered By: Darian Arceo on 06-14-2024 Erythrocyte distribution width (RBC) [Entitic vol] 51.2 fL High 35.1-43.9 [facility] Erythrocyte distribution wid th ratioOrdered By: Darian Arceo on 06-14-2024 Erythrocyte distribution width (RBC) [Ratio] 16.3 % High 11.6-14.6 [facility] Estimated glomerular filtrat ion rate (GFR) AmericanOrdered By: Darian Arceo on 06-14-2024 Estimated GFR (MDRD) Amer 124 mL/min >60 [facility] Comment on above: GFR Calc Estimation of creatinine elzbieta aranceOrdered By: Darian Arceo on 06-14-2024 Estimated Creatinine Clearance Calc 106.44 ml/min [facility] Glomerular filtration rate ( GFR) estimationOrdered By: Darian Arceo on 06-14-2024 Estimated GFR (MDRD) Non-Af Amer 102 mL/min >60 [facility] Comment on above: Non- GFR Calc Glucose measurementOrdered B y: Darian Arceo on 06-14-2024 Glucose [Mass/Vol] 161 mg/dL High 74-106 [facility] Comment on above: Fasting Glucose resu lt greater than or equal to 126 mg/dL suggests DIABETES MELLITUS per A.D.A. criteria. Hematocrit Auto (Bld) [Volum e fraction]Ordered By: Darian Arceo on 06-14-2024 Hematocrit (Bld) [Volume fraction] 40.4 % 40-54 [facility] Hemoglobin measurementOrdere d By: Darian Arceo on 06-14-2024 Hemoglobin (Bld) [Mass/Vol] 12.9 g/dL Low 13.0-16. 5 [facility] Immature granulocytes/100 WB C Auto (Bld)Ordered By: Darian Arceo on 06-14-2024 Immature granulocytes/100 WBC (Bld) 0.500 % 0.0-0.9 [facility] Comment on above: IG% - Immature Granu locytes (promyelocytes, myelocytes and metamyelocytes) > 1% indicates that a LEFT SHIFT is Present. Lymphocytes Auto (Unsp spec) [#/Vol]Ordered By: Darian Arceo on 06-14-2024 Lymphocytes (Bld) [#/Vol] 2.62 10*3/uL 0.83-4.5 1 [facility] Lymphocytes/100 WBC Auto (Un sp spec)Ordered By: Darian Arceo on 06-14-2024 Lymphocytes/100 WBC (Bld) 30.6 % 19-41 [facility] MCV (mean corpuscular volume ) determinationOrdered By: Darian Arceo on 06-14-2024 MCV (RBC) [Entitic vol] 87.1 fL 80-94 [facility] Mean corpuscular hemoglobin (MCH) determinationOrdered By: Darian Arceo on 06-14-2024 MCH (RBC) [Entitic mass] 27.8 pg 27.0-32.0 [facility] Mean corpuscular hemoglobin concentration (MCHC) determinationOrdered By: Darian Arceo on 06-14-2024 MCHC (RBC) [Mass/Vol] 31.9 g/dL Low 32-36 [facility] Mean platelet volume determi nationOrdered By: Darian Arceo on 06-14-2024 Platelet mean volume (Bld) [Entitic vol] 9.0 fL 6.2-12.0 [facility] Monocyte percentageOrdered B y: Darian Arceo on 06-14-2024 Monocytes/100 WBC (Bld) 11.4 % High 0-10 [facility] Neutrophil percentageOrdered By: Darian Arceo on 06-14-2024 Neutrophils/100 WBC (Bld) 50.8 % 47-70 [facility] Nucleated red blood cell per centageOrdered By: Darian Arceo on 06-14-2024 Nucleated RBC/100 WBC (Bld) [Ratio] 0 % 0-5 [facility] Platelet countOrdered By: Joellen Arceo on 06-14-2024 Platelets (Bld) [#/Vol] 340 10*3/uL 150-450 [facility] Potassium measurementOrdered By: Darian Arceo on 06-14-2024 Potassium [Moles/Vol] 3.2 mmol/L Low 3.5-5.1 [facility] RBC Auto (Bld) [#/Vol]Ordere d By: Darian Arceo on 06-14-2024 RBC (Bld) [#/Vol] 4.64 10*6/uL 4.6-6.2 [facility] Serum anion gap measurementO rdered By: Darian Arceo on 06-14-2024 Anion gap [Moles/Vol] 7 mmol/L 5-15 [facility] Serum or plasma calcium shantal urement (mass/volume)Ordered By: Darian Arceo on 06-14-2024 Calcium [Mass/Vol] 8.5 mg/dL 8.5-10.1 [facility] Serum or plasma creatinine m easurement (mass/volume)Ordered By: Darian Arceo on 06-14-2024 Creatinine [Mass/Vol] 0.81 mg/dL 0.70-1.30 [facility] Comment on above: The validity of the calculated GFR & GFRAA in patients over 70 years has not been determined. Clinical correlation is essential. Serum or plasma urea nitroge n measurement (mass/volume)Ordered By: Darian Arceo on 06-14-2024 Urea nitrogen [Mass/Vol] 10 mg/dL 7-18 [facility] Sodium levelOrdered By: Danny Arceo on 06-14-2024 Sodium [Moles/Vol] 144 mmol/L 136-145 [facility] Urine Cultureon 06-14-2024 URC Additional sensitivi ty to follow. Pseudomonas aeruginosa [place] Count >100,000 Pseudomonas aeruginosa: REACTION Aztreonam Islt KB 14 Pseudomonas aeruginosa: REACTION Cefepime Islt HARMAN 1 Ciprofloxacin Islt HARMAN >=4 R levoFLOXacin Islt HARMAN >=8 R Meropenem Islt [place]MAN 1 S Pip+Tazo Islt HARMAN <=4 S Pseudomonas aeruginosa: REACTION Amikacin Islt HARMAN 4 Imipenem Islt HARMAN R Tobramycin Islt HARMAN <=1 S Normal [facility] Comment on above: Performed By: #### L 500.3400, L501.2450, L100.0100, L500.2500, L501.4020, L300.8000 #### [facility] [address] [place], [place], [id number] White blood cell (WBC) count Ordered By: Darian Arceo on 06-14-2024 WBC (Bld) [#/Vol] 8.6 10*3/uL 4.4-11.0 [facility] Basic Metabolic Profile (BMP )on 06-13-2024 BUN/CRE 17.2 RATIO Normal 10-20 [facility] Comment on above: Performed By: #### L 100.0100, L500.2500 ####[facility] [address] [place], [place], [id number] [place],Total 8.4 mg/dL Low 8.5-10.1 [facility] Comment on above: Performed By: #### L 100.0100, L500.2500 ####[facility] [address] [place], [address] Chloride [Moles/Vol] 108 mmol/L High 98-107 [facility] Comment on above: Performed By: #### L 100.0100, L500.2500 ####[facility] [address] [place], [address] CO2 [Moles/Vol] 24.0 mmol/L Normal 21.0-32.0 [facility] Comment on above: Performed By: #### L 100.0100, L500.2500 ####[facility] [address] [place], [address] Creatinine [Mass/Vol] 0.64 mg/dL Low 0.70-1.30 [facility] Comment on above: Result Comment: The validity of the calculated GFR GFRAA in patients over 70 years has not been determined. Clinical correlation is essential. Performed By: #### L 100.0100, L500.2500 ####[facility] [address] [place], [address] ECRCL 134.72 ml/min Normal [facility] Comment on above: Performed By: #### L 100.0100, L500.2500 ####[facility] [address] [place], [address] EST GFR - AA 163 mL/min Normal >60 [facility] Comment on above: Result Comment: Afri can Cypriot GFR Calc Performed By: #### L 100.0100, L500.2500 ####[facility] [address] [place], [address] GAP 8 Normal 5-15 [facility] Comment on above: Performed By: #### L 100.0100, L500.2500 ####[facility] [address] [place], [address] GFR/1.73 sq M.predicted among non-blacks MDRD (S/P/Bld) [Vol rate/Area] 134 mL/min/{1.73_m2} Normal >60 [facility] Comment on above: Result Comment: Non- GFR Calc Performed By: #### L 100.0100, L500.2500 ####[facility] [address] [place], [address] Glucose [Mass/Vol] 95 mg/dL Normal 74-106 [facility] Comment on above: Performed By: #### L 100.0100, L500.2500 ####[facility] [address] [place], [address] Potassium [Moles/Vol] 3.2 mmol/L Low 3.5-5.1 [facility] Comment on above: Performed By: #### L 100.0100, L500.2500 ####[facility] [address] [place], [address] Sodium [Moles/Vol] 140 mmol/L Normal 136-145 [facility] Comment on above: Performed By: #### L 100.0100, L500.2500 ####[facility] [address] [place], [address] Urea nitrogen [Mass/Vol] 11 mg/dL Normal 7-18 [facility] Comment on above: Performed By: #### L 100.0100, L500.2500 ####[facility] [address] [place], [address] CBC W/Diff, Automatedon 05-29 Absolute Lymph 2.73 X10 3/uL Normal 0.83-4.51 [facility] Comment on above: Performed By: #### L 100.0100, L500.2500 ####[facility] [address] [place], [address] Absolute Neut 4.2 X10 3/uL Normal 2.0-7.7 [facility] Comment on above: Performed By: #### L 100.0100, L500.2500 ####[facility] [address] [place], [address] Basophils/100 WBC (Bld) 0.4 % Normal 0-1 [facility] Comment on above: Performed By: #### L 100.0100, L500.2500 ####[facility] [address] [place], [address] Eosinophils/100 WBC (Bld) 3.5 % Normal 0-5 [facility] Comment on above: Performed By: #### L 100.0100, L500.2500 ####[facility] [address] [place], [address] Erythrocyte distribution width (RBC) [Ratio] 15.9 % High 11.6-14.6 [facility] Comment on above: Performed By: #### L 100.0100, L500.2500 ####[facility] [address] [place], [address] Hematocrit (Bld) [Volume fraction] 40.3 % Normal 40-54 [facility] Comment on above: Performed By: #### L 100.0100, L500.2500 ####[facility] [address] [place], [address] Hemoglobin (Bld) [Mass/Vol] 13.0 g/dL Normal 13.0-16. 5 [facility] Comment on above: Performed By: #### L 100.0100, L500.2500 ####[facility] [address] [place], [address] IG% 0.200 Normal 0.0-0.9 [facility] Comment on above: Result Comment: IG% - Immature Granulocytes (promyelocytes, myelocytes and metamyelocytes) > 1% indicates that a LEFT SHIFT is Present. Performed By: #### L 100.0100, L500.2500 ####[facility] [address] [place], [address] Lymphocytes/100 WBC (Bld) 33.7 % Normal 19-41 [facility] Comment on above: Performed By: #### L 100.0100, L500.2500 ####[facility] [address] [place], [address] MCH (RBC) [Entitic mass] 27.4 pg Normal 27.0-32.0 [facility] Comment on above: Performed By: #### L 100.0100, L500.2500 ####[facility] [address] [place], [address] MCHC (RBC) [Mass/Vol] 32.3 g/dL Normal 32-36 [facility] Comment on above: Performed By: #### L 100.0100, L500.2500 ####[facility] [address] [place], [address] MCV (RBC) [Entitic vol] 84.8 fL Normal 80-[address] [facility] Comment on above: Performed By: #### L 100.0100, L500.2500 ####[facility] [address] [place], [address] Monocytes/100 WBC (Bld) 10.6 % High 0-10 [facility] Comment on above: Performed By: #### L 100.0100, L500.2500 ####[facility] [address] [place], [address] Neutrophils/100 WBC (Bld) 51.6 % Normal 47-70 [facility] Comment on above: Performed By: #### L 100.0100, L500.2500 ####[facility] [address] [place], [address] Nucleated RBC (Bld) [#/Vol] 0 10*3/uL Normal 0-5 [facility] Comment on above: Performed By: #### L 100.0100, L500.2500 ####[facility] [address] [place], [address] Platelet mean volume (Bld) [Entitic vol] 9.0 fL Normal 6.2-12.0 [facility] Comment on above: Performed By: #### L 100.0100, L500.2500 ####[facility] [address] [place], [address] Platelets (Bld) [#/Vol] 311 10*3/uL Normal 150-450 [facility] Comment on above: Performed By: #### L 100.0100, L500.2500 ####[facility] [address] [place], [address] RBC (Bld) [#/Vol] 4.75 10*6/uL Normal 4.6-6.2 [facility] Comment on above: Performed By: #### L 100.0100, L500.2500 ####[facility] [address] [place], [address] RDW SD 49.3 fl High 35.1-43.9 [facility] Comment on above: Performed By: #### L 100.0100, L500.2500 ####[facility] [address] [place], [address] WBC (Bld) [#/Vol] 8.1 10*3/uL Normal 4.4-11.0 [facility] Comment on above: Performed By: #### L 100.0100, L500.2500 ####[facility] [address] [place], [address] Folates, (Folic Acid)on 05-29 FOLATES 46.60 ng/mL Normal 3.1-55.4 [facility] Comment on above: Order Comment: Has P atient had X-rays with Contrast this admission? NN Performed By: #### L 501.9520, L505.5000, L506.0250, L503.0105 ####[facility] [address] [place], [place], [id number] Folic acid measurementOrdere d By: Ronak Cui on 06-12-2024 Folate 46.60 ng/mL 3.1-55.4 [facility] Legionella Antigen Urineon 0 06-12-2024 LEGU URINE, SUPRAPUBIC Legionella Antigen result interpretation: L pneumo Ag Ur Ql Negative Presumptive negative for Legionella pneumophila serogroup 1 antigen in urine, suggesting no recent or current infection. Legionella Ag, Urine Negative (See interpretation below) Normal [facility] Comment on above: Performed By: #### L 500.3400, L501.2450, L100.0100, L500.2500, L501.4020, L300.8000 #### [facility] [address] [place], [place], [id number] Methadone, urineOrdered By: Ronak Cui on 06-12-2024 Urine Methadone Screen Negative < 300 ng/mL [facility] No Panel InformationOrdered By: Ronak Cui on 06-12-2024 Urine Drug Screen Comment [facility] Comment on above: CONFIRMATORY TESTING FOR ALL POSITIVE URINE DRUG SCREENRESULTS WILL ONLY BE SENT OUT UPON PHYSICIAN ORDER. VISTA Urine Drug Screen methods provide only preliminaryanalytical test results. A more specific alternate chemicalmethod must be used in order to obtain a confirmedanalytical result. Gas chromatography/mass spectrometery(GC/MS) is the preferred confirmatory method. Clinicalconsideration and professional judgement should be appliedto any drug of abuse test result, particularly whenpreliminary positive results are used. URINE TCA TESTING MUST BE ORDERED SEPARATELY. USE TESTMNEMONIC: [facility] Quantitative urine opiates m easurementOrdered By: Ronak Cui on 06-12-2024 Opiates Ql (U) Positive High < 300 ng/mL [facility] Strep pneumoniae Antig(UR,CS F)on 06-12-2024 STPAG URINE, SUPRAPUBIC URINE INTERPRETATION Strep pneumoniae Antig(UR,CSF) Negative Interpretation: URINE Presumptive negative for pneumococcal pneumonia, suggesting no current or recent pneumococcal infection. Infection due to S. pneumoniae cannot be ruled out since the antigen present in the sample may be below the detection limit of the test. Strep pneumo Test Negative URINE (See interpretation below) * This is an amended result. * A prior result that was reported as final has been changed. 06/12/24 1523 by KARAN Funez [facility] Comment on above: Performed By: #### L 500.3400, L501.2450, L100.0100, L500.2500, L501.4020, L300.8000 #### [facility] [address] [place], [place], [id number] TSH QnOrdered By: Ronak muro on 06-12-2024 Thyroid Stimulating Hormone (TSH) 4.130 uIU/mL High 0.358-3.74 0 [facility] Thyroid Stim Hormone (TSH)on 06-12-2024 TSH 4.130 uIU/mL High 0.358-3.74 0 [facility] Comment on above: Order Comment: Has P atient had X-rays with Contrast this admission? NN Performed By: #### L 501.9520, L505.5000, L506.0250, L503.0105 ####[facility] [address] [place], [place], [id number] Urine Drug Screen (VISTA)on 06-12-2024 AMPHETAMINES Negative Normal <1000 ng/mL [facility] Comment on above: Performed By: #### L 501.9520, L505.5000, L506.0250, L503.0105 ####[facility] [address] [place], [address] BARBITIURATES Negative Normal < 200 ng/mL [facility] Comment on above: Performed By: #### L 501.9520, L505.5000, L506.0250, L503.0105 ####[facility] [address] [place], [address] BENZODIAZIPINE Negative Normal < 200 ng/mL [facility] Comment on above: Performed By: #### L 501.9520, L505.5000, L506.0250, L503.0105 ####[facility] [address] [place], [address] COCAINE Negative Normal < 300 ng/mL [facility] Comment on above: Performed By: #### L 501.9520, L505.5000, L506.0250, L503.0105 ####[facility] [address] [place], [address] ECSTACY Negative Normal < 500 ng/mL [facility] Comment on above: Performed By: #### L 501.9520, L505.5000, L506.0250, L503.0105 ####[facility] [address] [place], [address] METHADONE Negative Normal < 300 ng/mL [facility] Comment on above: Performed By: #### L 501.9520, L505.5000, L506.0250, L503.0105 ####[facility] [address] [place], [address] OPIATES Positive Abnormal < 300 ng/mL [facility] Comment on above: Performed By: #### L 501.9520, L505.5000, L506.0250, L503.0105 ####[facility] [address] [place], [address] PCP Negative Normal < 25 ng/mL [facility] Comment on above: Performed By: #### L 501.9520, L505.5000, L506.0250, L503.0105 ####[facility] [address] [place], [address] THC Positive Abnormal < 50 ng/mL [facility] Comment on above: Performed By: #### L 501.9520, L505.5000, L506.0250, L503.0105 ####[facility] [address] [place], [address] VISTA UDS PH 5 Normal [facility] Comment on above: Performed By: #### L 501.9520, L505.5000, L506.0250, L503.0105 ####[facility] [address] [place], [address] Urine amphetamine measuremen tOrdered By: Ronak Cui on 06-12-2024 Amphetamines Ql (U) Negative <1000 ng/mL [facility] Urine barbiturates measureme ntOrdered By: Ronak Cui on 06-12-2024 Urine Barbiturates Screen Negative < 200 ng/mL [facility] Urine benzodiazepine levelOr dered By: Ronak Cui on 06-12-2024 Benzodiazepines Ql (U) Negative < 200 ng/mL [facility] Urine cocaine levelOrdered B y: Ronak Cui on 06-12-2024 Cocaine Ql (U) Negative < 300 ng/mL [facility] Urine dzxqg-1-ixeepxmqhcygpq abinol (THC) measurementOrdered By: Ronak Cui on 06-12-2024 Cannabinoids Screen Ql (U) Positive High < 50 ng/m L [facility] Urine methylenedioxymethamph etamine (MDMA) measurementOrdered By: Ronak Cui on 06-12-2024 MDMA (Ecstasy) Screen Negative < 500 ng/mL [facility] Urine phencyclidine (PCP) de tectionOrdered By: Ronak Cui on 06-12-2024 Phencyclidine Ql (U) Negative < 25 ng/mL [facility] Vitamin B12on 06-12-2024 Cobalamin (Vitamin B12) [Mass/Vol] 551 pg/mL Normal 211-911 [facility] Comment on above: Performed By: #### L 501.9520, L505.5000, L506.0250, L503.0105 ####[facility] [address] [place], [address] Vitamin B12 measurementOrder ed By: Ronak Cui on 06-12-2024 Cobalamin (Vitamin B12) [Mass/Vol] 551 pg/mL 211-911 [facility] Albumin to globulin ratioOrd ered By: Alma Rosa Pedroza on 06-11-2024 Albumin/Globulin [Mass ratio] 0.6 {ratio} Low 0.9-2.4 [facility] Bilirubin Test strip Ql (U)O rdered By: Alma Rosa Pedroza on 06-11-2024 Bilirubin Ql (U) Negative Negative [facility] Bilirubin, totalOrdered By: Alma Rosa Pedroza on 06-11-2024 Bilirubin [Mass/Vol] 0.40 mg/dL 0.20-1.00 [facility] Comment on above: For patients on eltr ombopag therapy, use of Dimension Reserve TBIL is not recommended. Blood cultureOrdered By: Marquita Pedroza on 06-11-2024 Bacteria identified Cx Nom (Bld) No growth in 5 days. [facility] Bacteria identified Cx Nom (Bld) No growth in 5 days. [facility] CBC W/Diff, Automatedon 05-29 Absolute Lymph 2.16 X10 3/uL Normal 0.83-4.51 [facility] Comment on above: Performed By: #### L 500.3400, L501.2450, L100.0100, L500.2500, L501.4020, L300.8000 #### [facility] [address] [place], [address] Absolute Neut 9.6 X10 3/uL High 2.0-7.7 [facility] Comment on above: Performed By: #### L 500.3400, L501.2450, L100.0100, L500.2500, L501.4020, L300.8000 #### [facility] [address] [place], [address] Basophils/100 WBC (Bld) 0.3 % Normal 0-1 [facility] Comment on above: Performed By: #### L 500.3400, L501.2450, L100.0100, L500.2500, L501.4020, L300.8000 #### [facility] [address] [place], [address] Eosinophils/100 WBC (Bld) 0.7 % Normal 0-5 [facility] Comment on above: Performed By: #### L 500.3400, L501.2450, L100.0100, L500.2500, L501.4020, L300.8000 #### [facility] [address] [place], [address] Erythrocyte distribution width (RBC) [Ratio] 16.1 % High 11.6-14.6 [facility] Comment on above: Performed By: #### L 500.3400, L501.2450, L100.0100, L500.2500, L501.4020, L300.8000 #### [facility] [address] [place], [address] Hematocrit (Bld) [Volume fraction] 47.0 % Normal 40-54 [facility] Comment on above: Performed By: #### L 500.3400, L501.2450, L100.0100, L500.2500, L501.4020, L300.8000 #### [facility] [address] [place], [address] Hemoglobin (Bld) [Mass/Vol] 15.4 g/dL Normal 13.0-16. 5 [facility] Comment on above: Performed By: #### L 500.3400, L501.2450, L100.0100, L500.2500, L501.4020, L300.8000 #### [facility] [address] [place], [address] IG% 0.400 Normal 0.0-0.9 [facility] Comment on above: Result Comment: IG% - Immature Granulocytes (promyelocytes, myelocytes and metamyelocytes) > 1% indicates that a LEFT SHIFT is Present. Performed By: #### L 500.3400, L501.2450, L100.0100, L500.2500, L501.4020, L300.8000 #### [facility] [address] [place], [address] Lymphocytes/100 WBC (Bld) 17.0 % Low 19-41 [facility] Comment on above: Performed By: #### L 500.3400, L501.2450, L100.0100, L500.2500, L501.4020, L300.8000 #### [facility] [address] [place], [address] MCH (RBC) [Entitic mass] 27.6 pg Normal 27.0-32.0 [facility] Comment on above: Performed By: #### L 500.3400, L501.2450, L100.0100, L500.2500, L501.4020, L300.8000 #### [facility] [address] [place], [address] MCHC (RBC) [Mass/Vol] 32.8 g/dL Normal 32-36 [facility] Comment on above: Performed By: #### L 500.3400, L501.2450, L100.0100, L500.2500, L501.4020, L300.8000 #### [facility] [address] [place], [address] MCV (RBC) [Entitic vol] 84.2 fL Normal 80-94 [facility] Comment on above: Performed By: #### L 500.3400, L501.2450, L100.0100, L500.2500, L501.4020, L300.8000 #### [facility] [address] [place], [address] Monocytes/100 WBC (Bld) 6.0 % Normal 0-10 [facility] Comment on above: Performed By: #### L 500.3400, L501.2450, L100.0100, L500.2500, L501.4020, L300.8000 #### [facility] [address] [place], [address] Neutrophils/100 WBC (Bld) 75.6 % High 47-70 [facility] Comment on above: Performed By: #### L 500.3400, L501.2450, L100.0100, L500.2500, L501.4020, L300.8000 #### [facility] [address] [place], [address] Nucleated RBC (Bld) [#/Vol] 0 10*3/uL Normal 0-5 [facility] Comment on above: Performed By: #### L 500.3400, L501.2450, L100.0100, L500.2500, L501.4020, L300.8000 #### [facility] [address] [place], [address] Platelet mean volume (Bld) [Entitic vol] 8.9 fL Normal 6.2-12.0 [facility] Comment on above: Performed By: #### L 500.3400, L501.2450, L100.0100, L500.2500, L501.4020, L300.8000 #### [facility] [address] [place], [address] Platelets (Bld) [#/Vol] 416 10*3/uL Normal 150-450 [facility] Comment on above: Performed By: #### L 500.3400, L501.2450, L100.0100, L500.2500, L501.4020, L300.8000 #### [facility] [address] [place], [address] RBC (Bld) [#/Vol] 5.58 10*6/uL Normal 4.6-6.2 [facility] Comment on above: Performed By: #### L 500.3400, L501.2450, L100.0100, L500.2500, L501.4020, L300.8000 #### [facility] [address] [place], [address] RDW SD 48.9 fl High 35.1-43.9 [facility] Comment on above: Performed By: #### L 500.3400, L501.2450, L100.0100, L500.2500, L501.4020, L300.8000 #### [facility] [address] [place], [address] WBC (Bld) [#/Vol] 12.7 10*3/uL High 4.4-11.0 [facility] Comment on above: Performed By: #### L 500.3400, L501.2450, L100.0100, L500.2500, L501.4020, L300.8000 #### [facility] [address] [place], [address] Calcium oxalate crystals LM Ql (Urine sed)Ordered By: Alma Rosa Pedroza on 06-11-2024 Urine Calcium Oxalate Crystals 1+ /hpf [facility] Chest 1 View (Portable)on Chest 1 View (Portable) [facility] Imaging Services [address] [place] [address] Chest 1 View (Portable) MR#: [id number] Acct: [id number] Name: BAUTISTA RUFFIN Rep #: [id number] : 1960 M 64 From: Bautista De La Paz MD PCP: [facility] Status: [facility] ER Study: Chest 1 View (Portable) Date of Exam: 06/11/24 Exam# [id number] Ordering Dr: Alma Rosa Pedroza DO [id number] STUDY: X-RAY CHEST REASON FOR EXAM: Male, 64 years old. weakness TECHNIQUE: AP portable COMPARISON: June 06, 2022 FINDINGS: Nonspecific interstitial thickening in the lower lobes more pronounced in the upper lobe possibly inflammatory.. There is no demonstrated pleural abnormality. Normal size heart. Normal mediastinum and caryl. Normal visualized pulmonary arteries. Normal visualized aortic arch and descending thoracic aorta. Dorsal spine demonstrates scoliosis and mild degenerative change. Normal visualized ribs, clavicles, and shoulders. There is no demonstrated abnormality of the visualized soft tissue structures of the upper abdomen. RAD/Chest 1 View (Portable) IMPRESSION: Multifocal interstitial thickening most pronounced right upper lobe possibly inflammatory. Clinical correlation recommended. Electronically Signed: Bautista De La Paz MD at 18:32 EST Reading Location ID and State: [facility] / [place] Tel , Service support , CC: Dr. Alma Rosa Pedroza DO; [facility] Terrazzo Grinder: Signed Normal [facility] Chest without Contraston Chest without Contrast [facility] Imaging Services [address] [place] [id number] Chest without Contrast MR#: [id number] Acct: [id number] Name: BAUTISTA RUFFIN Rep #: [id number] : 1960 64 From: Bautista De La Paz MD PCP: [facility] Status: ADM IN Study: Chest without Contrast Date of Exam: 06/11/24 Exam# [id number] Ordering Dr: Ronak Quiroz DO [id number] INDICATION: Suspected RUL PNA on CXR. EXAMINATION: CT CHEST WITHOUT CONTRAST - CT Chest W/O Contrast Injection TECHNIQUE: Helically acquired images were obtained of the chest. A radiation dose optimization technique was used for this scan. IV Contrast dosage and agent: None. COMPARISON: None. FINDINGS: LUNGS, PLEURA AND LARGE AIRWAYS: Mild atelectasis in the left lower lobe.. There are 2 subcentimeter noncalcified nodules in the right lower lobe of uncertain etiology. Minor interstitial thickening in the right upper lobe No pleural effusion or thickening. No pneumothorax. THYROID: No thyroid lesions. HEART AND PERICARDIUM: Heart size is normal. No pericardial effusion. CORONARY ARTERIES: Mild multivessel coronary artery calcification VESSELS: Minor atherosclerotic change of the aorta without evidence for aneurysm. MEDIASTINUM AND CARYL: No mediastinal or hilar adenopathy. Esophagus is unremarkable. No hiatal hernia. UPPER ABDOMEN: No acute pathology. BONES: Dorsal spine demonstrates mild spondylosis No suspicious lytic or blastic abnormality. CT/Chest without Contrast IMPRESSION: Mild left lower lobe atelectasis. Minor interstitial thickening and subcentimeter noncalcified nodules in the right lower lobe of indeterminate etiology Would recommend clinical correlation and additional follow-up imaging utilizing Fleischner Society criteria if clinically warranted Electronically Signed: Bautista De La Paz MD at 22:35 EST Reading Location ID and State: [facility] / [place] Tel , Service support , CC: Dr. Ronak Quiroz, DO; [facility] Terrazzo Grinder: Signed Normal [facility] Comprehensive Metabolic Prof ilon 06-11-2024 Albumin [Mass/Vol] 2.8 g/dL Low 3.2-5.0 [facility] Comment on above: Order Comment: 'TROP ' Serial specimen #1, #2 or #3: 1 Performed By: #### L 500.3400, L501.2450, L100.0100, L500.2500, L501.4020, L300.8000 #### [facility] [address] [place], [place], [id number] Albumin/Globulin [Mass ratio] 0.6 {ratio} Low 0.9-2.4 [facility] Comment on above: Order Comment: 'TROP ' Serial specimen #1, #2 or #3: 1 Performed By: #### L 500.3400, L501.2450, L100.0100, L500.2500, L501.4020, L300.8000 #### [facility] [address] [place], [address] ALK P 168 U/L High 45-117 [facility] Comment on above: Order Comment: 'TROP ' Serial specimen #1, #2 or #3: 1 Performed By: #### L 500.3400, L501.2450, L100.0100, L500.2500, L501.4020, L300.8000 #### [facility] [address] [place], [address] ALT [Catalytic activity/Vol] 10 U/L Low 16-61 [facility] Comment on above: Order Comment: 'TROP ' Serial specimen #1, #2 or #3: 1 Performed By: #### L 500.3400, L501.2450, L100.0100, L500.2500, L501.4020, L300.8000 #### [facility] [address] [place], [address] AST [Catalytic activity/Vol] 10 U/L Low 15-37 [facility] Comment on above: Order Comment: 'TROP ' Serial specimen #1, #2 or #3: 1 Performed By: #### L 500.3400, L501.2450, L100.0100, L500.2500, L501.4020, L300.8000 #### [facility] [address] [place], [address] Bilirubin [Mass/Vol] 0.40 mg/dL Normal 0.20-1.00 [facility] Comment on above: Order Comment: 'TROP ' Serial specimen #1, #2 or #3: 1 Result Comment: For patients on eltrombopag therapy, use of Dimension Reserve TBIL is not recommended. Performed By: #### L 500.3400, L501.2450, L100.0100, L500.2500, L501.4020, L300.8000 #### [facility] [address] [place], [address] BUN/CRE 19.7 RATIO Normal 10-20 [facility] Comment on above: Order Comment: 'TROP ' Serial specimen #1, #2 or #3: 1 Performed By: #### L 500.3400, L501.2450, L100.0100, L500.2500, L501.4020, L300.8000 #### [facility] [address] [place], [address] CA,Total 9.5 mg/dL Normal 8.5-10.1 [facility] Comment on above: Order Comment: 'TROP ' Serial specimen #1, #2 or #3: 1 Performed By: #### L 500.3400, L501.2450, L100.0100, L500.2500, L501.4020, L300.8000 #### [facility] [address] [place], [address] Chloride [Moles/Vol] 106 mmol/L Normal 98-107 [facility] Comment on above: Order Comment: 'TROP ' Serial specimen #1, #2 or #3: 1 Performed By: #### L 500.3400, L501.2450, L100.0100, L500.2500, L501.4020, L300.8000 #### [facility] [address] [place], [address] CO2 [Moles/Vol] 25.0 mmol/L Normal 21.0-32.0 [facility] Comment on above: Order Comment: 'TROP ' Serial specimen #1, #2 or #3: 1 Performed By: #### L 500.3400, L501.2450, L100.0100, L500.2500, L501.4020, L300.8000 #### [facility] [address] [place], [address] Creatinine [Mass/Vol] 0.61 mg/dL Low 0.70-1.30 [facility] Comment on above: Order Comment: 'TROP ' Serial specimen #1, #2 or #3: 1 Result Comment: The validity of the calculated GFR GFRAA in patients over 70 years has not been determined. Clinical correlation is essential. Performed By: #### L 500.3400, L501.2450, L100.0100, L500.2500, L501.4020, L300.8000 #### [facility] [address] [place], [address] ECRCL 123.95 ml/min Normal [facility] Comment on above: Order Comment: 'TROP ' Serial specimen #1, #2 or #3: 1 Performed By: #### L 500.3400, L501.2450, L100.0100, L500.2500, L501.4020, L300.8000 #### [facility] [address] [place], [address] EST GFR - AA 172 mL/min Normal >60 [facility] Comment on above: Order Comment: 'TROP ' Serial specimen #1, #2 or #3: 1 Result Comment: Afri can Cypriot GFR Calc Performed By: #### L 500.3400, L501.2450, L100.0100, L500.2500, L501.4020, L300.8000 #### [facility] [address] [place], [address] GAP 9 Normal 5-15 [facility] Comment on above: Order Comment: 'TROP ' Serial specimen #1, #2 or #3: 1 Performed By: #### L 500.3400, L501.2450, L100.0100, L500.2500, L501.4020, L300.8000 #### [facility] [address] [place], [address] GFR/1.73 sq M.predicted among non-blacks MDRD (S/P/Bld) [Vol rate/Area] 142 mL/min/{1.73_m2} Normal >60 [facility] Comment on above: Order Comment: 'TROP ' Serial specimen #1, #2 or #3: 1 Result Comment: Non- GFR Calc Performed By: #### L 500.3400, L501.2450, L100.0100, L500.2500, L501.4020, L300.8000 #### [facility] [address] [place], [address] Globulin (S) [Mass/Vol] 5.0 g/dL High 2.2-4.[address] [facility] Comment on above: Order Comment: 'TROP ' Serial specimen #1, #2 or #3: 1 Performed By: #### L 500.3400, L501.2450, L100.0100, L500.2500, L501.4020, L300.8000 #### [facility] [address] [place], [address] Glucose [Mass/Vol] 107 mg/dL High 74-106 [facility] Comment on above: Order Comment: 'TROP ' Serial specimen #1, #2 or #3: 1 Result Comment: Fast ing Glucose result from 100 to 125 mg/dL suggests IMPAIRED HOMEOSTASIS per A.D.A. criteria. Performed By: #### L 500.3400, L501.2450, L100.0100, L500.2500, L501.4020, L300.8000 #### [facility] [address] [place], [address] Potassium [Moles/Vol] 3.4 mmol/L Low 3.5-5.1 [facility] Comment on above: Order Comment: 'TROP ' Serial specimen #1, #2 or #3: 1 Performed By: #### L 500.3400, L501.2450, L100.0100, L500.2500, L501.4020, L300.8000 #### [facility] [address] [place], [address] Sodium [Moles/Vol] 140 mmol/L Normal 136-145 [facility] Comment on above: Order Comment: 'TROP ' Serial specimen #1, #2 or #3: 1 Performed By: #### L 500.3400, L501.2450, L100.0100, L500.2500, L501.4020, L300.8000 #### [facility] [address] [place], [address] T PROT 7.8 g/dL Normal 6.4-8.2 [facility] Comment on above: Order Comment: 'TROP ' Serial specimen #1, #2 or #3: 1 Performed By: #### L 500.3400, L501.2450, L100.0100, L500.2500, L501.4020, L300.8000 #### [facility] [address] [place], [address] Urea nitrogen [Mass/Vol] 12 mg/dL Normal 7-18 [facility] Comment on above: Order Comment: 'TROP ' Serial specimen #1, #2 or #3: 1 Performed By: #### L 500.3400, L501.2450, L100.0100, L500.2500, L501.4020, L300.8000 #### [facility] [address] [place], [address] Emergency Department Summary on 06-11-[address] [facility] Medical Records Department [address] [place] [address] Emergency Department Summary 06/11/24 MR#: [id number] Acct: [id number] Name: BAUTISTA RUFFIN Rep #: [id number] : 1960 64 From: Alma Rosa Pedroza DO PCP: [facility] Status:ADM IN Location: [place] [address]-1 HPI History of Present Illness Chief Complaint: Lower Extremity Injury Detail of Chief Complaint: Generalized weakness and right hip pain Informant: patient Narrative Narrative: Patient presents to the emergency department via EMS from home. Patient is a paraplegic. He apparently had some physical therapy about 7 weeks ago and felt a pop in his right hip and was seen in the emergency department where he was diagnosed with a right intertrochanteric hip fracture. Patient was transferred to [facility] for definitive care as he had some lytic lesions in his femur. Patient cannot really tell me why he was there what they did or what he was told. His has not arrived to the emergency department yet. I am told that patient has been unable to get in with the [place] where he normally gets his care and the 's concerned about his hip. Patient only states that he has had some flulike symptoms and that he has been just been feeling achy all over since yesterday. Patient generally feels weak. He denies fever. Denies cough. Denies vomiting or diarrhea. He denies abdominal pain. 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 Neurogenic bladder Benign essential hypertension Home Medications ???Medication ???Instructions ???Recorded ???Last Taken ???Type baclofen 20 mg tablet 20 mg PO TID muscle spasms 02/26/13 06/27/21 History multivitamin with folic acid 400 1 tab PO LUNCH supplemeny 02/26/13 06/27/21 History mcg tablet (Thera) gabapentin 100 mg capsule 900 mg PO TID neuropathy 04/19/13 06/27/21 History nortriptyline 50 mg capsule 100 mg PO QHS anxiety 01/19/19 06/26/21 History ascorbic acid (vitamin C) 1,000 mg 1 g PO DAILY Check with primary 06/28/21 Unknown History tablet (Vitamin C) doctor cholecalciferol (vitamin D3) 50 50 mcg PO DAILY Check with primary 06/28/21 Unknown History mcg (2,000 unit) capsule (Vitamin doctor D3) docusate sodium 100 mg capsule 100 mg PO BID Check with primary 06/28/21 Unknown History doctor doxycycline monohydrate 100 mg 100 mg PO BID Check with primary 06/28/21 Unknown History capsule doctor loratadine 10 mg capsule 10 mg PO DAILY Check with primary 06/28/21 Unknown History doctor venlafaxine 75 mg tablet 75 mg PO DAILY Check with primary 06/28/21 Unknown History doctor apixaban 2.5 mg tablet (Eliquis) 2.5 mg PO BID 30 days #60 tabs 06/29/21 Unknown Rx aspirin 81 mg tablet,delayed 81 mg PO BREAKFAST 30 days #30 tabs 06/29/21 Unknown Rx release carvedilol 6.25 mg tablet 6.25 mg PO BID 30 days #60 tabs 06/29/21 Unknown Rx rosuvastatin 10 mg tablet (Crestor) 10 mg PO DAILY #30 tabs 06/29/21 Unknown Rx ticagrelor 90 mg tablet (Brilinta) 90 mg PO BID 30 days #60 tabs 06/29/21 Unknown Rx lisinopril 2.5 mg tablet 2.5 mg PO DAILY #30 tabs 07/06/21 Unknown Rx lorazepam 0.5 mg tablet (Ativan) 0.5 mg PO BID PRN nausea and 05/22/22 Unknown Rx vomiting #6 tabs ondansetron 4 mg disintegrating 4 mg PO Q6H PRN nausea and 05/22/22 Unknown Rx tablet vomiting #10 tabs ciprofloxacin HCl 500 mg tablet 500 mg PO BID #14 tabs 06/06/22 Unknown Rx ondansetron 4 mg disintegrating 4 mg PO Q8H PRN nausea and 06/06/22 Unknown Rx tablet vomiting #10 tabs Allergy/AdvReac Type Severity Reaction Status Date / Time No Known Allergies Allergy Verified 06/11/24 16:19 Family History Father CVA (cerebral vascular accident) Heart disease Myocardial infarction Surgical History History of coronary artery stent placement (06/28/21) History of femoral derotational osteotomy History of appendectomy History of suprapubic catheter Hx of colostomy Colostomy in place Social History household members: spouse Smoking Status: Light Smoker (<10/day) alcohol intake: former substance use type: marijuana ROS ROS ED Review of Systems ROS Unobtainable: other Constitutional Constitutional ED: Reports lethargy; Denies chills, fever(s), sweats or weight loss Eyes Eyes: Denies blurry vision, change in vision or diplopia ENT ENT ED: Denies rhi (more content not included)... Normal [facility] Epithelial cells.squamous LM Ql (Urine sed)Ordered By: Alma Rosa Pedroza on 06-11-2024 Epithelial cells.squamous LM.HPF (Urine sed) [#/Area] 0 /[HPF] 0-5 [facility] Glucose Ql (U)Ordered By: Julia Pedroza on 06-11-2024 Urine Glucose (UA) Normal mg/dl Normal [facility] H AND P Exam - Hospitaliston 06-11-2024 H&P Exam - Hospitalist [facility] Medical Records Department [address] [place] [address] H P Exam - Hospitalist 06/11/242112 MR#: [id number] Acct: [id number] Name: BAUTISTA RUFFIN Rep #: [id number] : 1960 64 From: Ronak Quiroz DO PCP: [facility] Status:ADM IN Location: ME3 [id number] HPI - General General Date of Admission: 06/11/24 Date of Service: 06/11/24 Chief Complaint: Right Hip Pain, Lethargy and Generalized Weakness. HPI Narrative BAUTISTA RUFFIN, is a 64 M with a past medical history of essential hypertension; on carvedilol and lisinopril, hyperlipidemia; on rosuvastatin, overweight; with a BMI of 26 this admission, history of tobacco abuse, history of cannabis abuse, history of heavy alcohol abuse, history of CAD; s/p proximal LAD stent (2021) on baby aspirin and ticagrelor, history of X; on apixaban, history of paraplegia, history of transverse myelitis; with neurogenic bladder and history of suprapubic catheter, history of acute paralytic poliomyelitis, history of muscle spasticity; on baclofen 20 mg TID, history of neuropathy; on gabapentin, history of femoral derotational osteotomy, history of appendectomy, history of colostomy, depression with anxiety; on venlafaxine, nortriptyline and as needed lorazepam BID and history of osteomyelitis of the R and history of a pop in his right hip that occurred 7 weeks ago while he was undergoing PT; with subsequent intertrochanteric Right hip fracture suspected to be due to lytic lesions in his femur - s/p evaluation at [facility] with patient not felt to be a surgical candidate and recommended to follow-up with the [facility] who presents to [facility] ER complaining of worsening Right hip pain, lethargy and generalized weakness. Mr. Ruffin is a suboptimal historian at this time. Mr. Ruffin's is concerned because he is becoming increasingly weak and this has been a sign in the past of UTI. The patient is a suboptimal historian but he states that he has had some flulike symptoms over the past 24 hours with generalized muscle aches and malaise. He denies associated fever, chills, abdominal pain, nausea, vomiting, diarrhea, constipation, chest pain or SOB. The patient denies currently drinking alcohol but his states he, smokes like a chimney. In the ER he was noted to have laboratory evidence of Acute Cystitis; with microscopic hematuria likely due to chronic suprapubic catheter with a corresponding Leukocytosis of 12.7 K present on admission complicated by Hypokalemia of 3.4 mmol/L present on admission along with a chest x-ray suggestive of multifocal interstitial thickening most pronounced in the right upper lobe; with clinical correlation recommended for possible Pneumonia and hip x-ray that revealed proximal right femoral shaft fracture with increase in displacement since previous study plus he underwent venous duplex of the lower extremities which were negative for DVT. He was then admitted to the general medical floor for ongoing care for stay that is expected to extend beyond 2 midnights. 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 Neurogenic bladder Benign essential hypertension Home Medications ???Medication ???Instructions ???Recorded ???Last Taken ???Type baclofen 20 mg tablet 20 mg PO TID muscle spasms 02/26/13 06/27/21 History multivitamin with folic acid 400 1 tab PO LUNCH supplemeny 02/26/13 06/27/21 History mcg tablet (Thera) gabapentin 100 mg capsule 900 mg PO TID neuropathy 04/19/13 06/27/21 History nortriptyline 50 mg capsule 100 mg PO QHS anxiety 01/19/19 06/26/21 History ascorbic acid (vitamin C) 1,000 mg 1 g PO DAILY Check with primary 06/28/21 Unknown History tablet (Vitamin C) doctor cholecalciferol (vitamin D3) 50 50 mcg PO DAILY Check with primary 06/28/21 Unknown History mcg (2,000 unit) capsule (Vitamin doctor D3) docusate sodium 100 mg capsule 100 mg PO BID Check with primary 06/28/21 Unknown History doctor doxycycline monohydrate 100 mg 100 mg PO BID Check with primary 06/28/21 Unknown History capsule doctor loratadine 10 mg capsule 10 mg PO DAILY Check with primary 06/28/21 Unknown History doctor venlafaxine 75 mg tablet 150 mg PO DAILY Check with primary 06/28/21 Unknown History doctor apixaban 2.5 mg tablet (Eliquis) 2.5 mg PO BID 30 days #60 tabs 06/29/21 Unknown Rx aspirin 81 mg tablet,delayed 81 mg PO BREAKFAST heart health 30 06/29/21 Unknown Rx release days #30 tabs carvedilol 6.25 mg tablet 6.25 mg PO BID heart 30 days #60 06/29/21 U (more content not included)... Normal [facility] HIP, UNI W/ Pelvis 2-3 Views on 06-11-2024 HIP, UNI W/ Pelvis 2-3 Views [facility] Imaging Services [address] [place], [place] [address] HIP, UNI W/ Pelvis 2-3 Views MR#: [id number] Acct: [id number] Name: BAUTISTA RUFFIN Rep #: [id number] : 1960 M 64 From: Garry Cobian DO PCP: [facility] Status: REG ER Study: HIP, UNI W/ Pelvis 2-3 Views Date of Exam: Exam# [id number] Ordering Dr: Alma Rosa Pedroza DO [id number] INDICATION: pain EXAMINATION/TECHNIQUE: X-RAY - XR Hip Unilateral with Pelvis when performed; 2-3 Views COMPARISON: May 03, 2024 FINDINGS: Chronically dislocated right hip. Proximal femoral shaft fracture with increasing displacement since the previous study. Old deformity of the left hip. The pubic symphysis is intact. The SI joints are skeletally symmetrical. RAD/HIP, UNI W/ Pelvis 2-3 Views IMPRESSION: Old deformity of the hips. Proximal right femoral shaft fracture with increase in displacement since the previous study. Electronically Signed: Garry Cobian DO at 18:47 EST , CC: Dr. Alma Rosa Pedroza DO; [facility] Terrazzo Grinder: Signed Normal [facility] Influenza virus A and B and SARS-CoV-2 (COVID-19) and Respiratory syncytial virus RNAOrdered By: Alma Rosa Pedroza on 06-11-2024 SARS-CoV-2 (COVID-19) RNA ZEKE+probe Ql (Unsp spec) [facility] Ketones Test strip Ql (U)Ord ered By: Alma Rosa Pedroza on 06-11-2024 Ketones Ql (U) 150 mg/dl Abnormal Negative [facility] Comment on above: CRITICAL VALUE *HCRI TICAL VALUE CALLED TO SNRIUY48/14/25 1805 Lilian Multani.RESULTS READ BACK BY SAME. L. pneumophila Ag Ql (U)Orde red By: Ronak Cui on 06-11-2024 Legionella Antigen [facility] L501.4020on 06-11-2024 TROPONIN-I HS 6 pg/mL Normal 3.0-78.0 [facility] Comment on above: Order Comment: 'TROP ' Serial specimen #1, #2 or #3: 1 Result Comment: Pleleroy anaya Note: New Test Units and Gender Specific Reference Ranges. For more information see Policy Stat Procedure Reserve High Sensitivity Troponin (TNIH) and attachments. Performed By: #### L 500.3400, L501.2450, L100.0100, L500.2500, L501.4020, L300.8000 #### [facility] [address] [place], [place], [id number] Laboratory - Chemistry and C hemistry - challengeOrdered By: Alma Rosa Pedroza on 06-11-2024 AST [Catalytic activity/Vol] 10 U/L Low 15-37 [facility] Lactic Acidon 06-11-2024 Lactate [Moles/Vol] 1.4 mmol/L Normal 0.4-1.9 [facility] Comment on above: Order Comment: 'TROP ' Serial specimen #1, #2 or #3: 1 Performed By: #### L 500.3400, L501.2450, L100.0100, L500.2500, L501.4020, L300.8000 #### [facility] [address] [place], [address] Lactic acid measurementOrder ed By: Alma Rosa Pedroza on 06-11-2024 Lactate [Moles/Vol] 1.4 mmol/L 0.4-2.0 [facility] M100.678on 06-11-2024 M100.678 Pending SARS-CoV-2 (COVID 19) Negative INFLUENZA A Negative INFLUENZA B Negative RSV PCR Negative Normal [facility] Comment on above: Performed By: #### L 500.3400, L501.2450, L100.0100, L500.2500, L501.4020, L300.8000 #### [facility] [address] [place], [place], [address] Microscopic analysis of urin e for red blood cells (RBC)Ordered By: Alma Rosa Pedroza on 06-11-2024 Urine RBC 25-50 SEEN /hpf 0-5 [facility] Mucus LM Ql (Urine sed)Order ed By: Alma Rosa Pedroza on 06-11-2024 Mucus Ql (Urine sed) 2+ /hpf [facility] Nitrite Test strip Ql (U)Ord ered By: Alma Rosa Pedroza on 06-11-2024 Nitrite Ql (U) Positive High Negative [facility] Protein Test strip Ql (U)Ord ered By: Alma Rosa Pedroza on 06-11-2024 Protein Ql (U) 100 mg/dl High Negative [facility] Serum globulin measurementOr dered By: Remus Sheehanelizabeth on 06-11-2024 Globulin (S) [Mass/Vol] 5.0 g/dL High 2.2-4.2 [facility] Serum or plasma alanine hooper otransferase (ALT) measurementOrdered By: Rem Ungelizabeth on 06-11-2024 ALT [Catalytic activity/Vol] 10 U/L Low 16-61 [facility] Serum or plasma albumin shantal urement (mass/volume)Ordered By: Remus Sheehanelizabeth on 06-11-2024 Albumin [Mass/Vol] 2.8 g/dL Low 3.2-5.0 [facility] Serum or plasma alkaline radha sphatase measurementOrdered By: Alma Rosa Sheehanelizabeth on 06-11-2024 ALP [Catalytic activity/Vol] 168 U/L High 45-117 [facility] Streptococcus pneumoniae ant igen assayOrdered By: Ronak Cui on 06-11-2024 Streptococcus pneumoniae Antigen (M [facility] Total proteinOrdered By: Marquita Sheehanelizabeth on 06-11-2024 Protein [Mass/Vol] 7.8 g/dL 6.4-8.2 [facility] Troponin IOrdered By: Alma Rosa Sheehanelizabeth on 06-11-2024 Troponin I High Sensitivity 6 pg/mL 3.0-78.0 [facility] Comment on above: Please Note: New Tanya t Units and Gender Specific Reference Ranges. For more information see Policy Stat Procedure Reserve High Sensitivity Troponin (TNIH) and attachments. Urinalysis, Completeon 06-11 BACTERIA 4+ /hpf Normal None Seen [facility] Comment on above: Order Comment: 'TROP ' Serial specimen #1, #2 or #3: 1 Performed By: #### L 500.3400, L501.2450, L100.0100, L500.2500, L501.4020, L300.8000 #### [facility] [address] [place], [address] CA OX CRYSTAL 1+ /hpf Normal [facility] Comment on above: Order Comment: 'TROP ' Serial specimen #1, #2 or #3: 1 Performed By: #### L 500.3400, L501.2450, L100.0100, L500.2500, L501.4020, L300.8000 #### [facility] [address] [place], [address] EPI,SQUAMOUS 0-5 SEEN Normal 0-5 [facility] Comment on above: Order Comment: 'TROP ' Serial specimen #1, #2 or #3: 1 Performed By: #### L 500.3400, L501.2450, L100.0100, L500.2500, L501.4020, L300.8000 #### [facility] [address] [place], [address] Mucus Ql (Urine sed) 2+ /hpf Normal [facility] Comment on above: Order Comment: 'TROP ' Serial specimen #1, #2 or #3: 1 Performed By: #### L 500.3400, L501.2450, L100.0100, L500.2500, L501.4020, L300.8000 #### [facility] [address] [place], [address] RBC 25-50 SEEN Normal 0-5 [facility] Comment on above: Order Comment: 'TROP ' Serial specimen #1, #2 or #3: 1 Performed By: #### L 500.3400, L501.2450, L100.0100, L500.2500, L501.4020, L300.8000 #### [facility] [address] [place], [address] WBC >100 SEEN Normal [address] [place] [address] Comment on above: Order Comment: 'TROP ' Serial specimen #1, #2 or #3: 1 Performed By: #### L 500.3400, L501.2450, L100.0100, L500.2500, L501.4020, L300.8000 #### [facility] [address] [place], [address] Urine blood detectionOrdered By: Remus Pedroza on 06-11-2024 Urine Occult Blood 250 /ul High Negative [facility] Urine clarityOrdered By: Rem us Pedroza on 06-11-2024 Clarity (U) Cloudy Clear [facility] Urine color determinationOrd ered By: Alma Rosa Pedroza on 06-11-2024 Color (U) Yellow Yellow [facility] Urine cultureOrdered By: Rem us Pedroza on 06-11-2024 Bacteria identified Cx Nom (U) Pseudomonas aeruginosa Abnormal [facility] Urine leukocyte esterase det ection by dipstickOrdered By: Remus Pedroza on 06-11-2024 Leukocyte esterase Test strip Ql (U) 500 /ul High Negative [facility] Urine pHOrdered By: Alma Rosa Un gur on 06-11-2024 pH (U) 6.0 [pH] 5.0 - 8.0 [facility] Urine sediment bacteria coun t by microscopy (number/high power field)Ordered By: Alma Rosa Pedroza on 06-11-2024 Bacteria LM.HPF (Urine sed) [#/Area] 4 /[HPF] None Seen [facility] Urine specific gravity measu rementOrdered By: Alma Rosa Pedroza on 06-11-2024 Specific gravity (U) [Rel density] 1.025 1.002-1.03 0 [facility] Urobilinogen Ql (U)Ordered B y: Alma Rosa Pedroza on 06-11-2024 Urine Urobilinogen Normal mg/dl Normal [facility] Venous Duplex Imag/Limited/U nion 06-11-2024 Venous Duplex Imag/Limited/Uni [facility] Imaging Services [address] [place], [place] [id number] Venous Duplex Imag/Limited/Uni MR#: [id number] Acct: [id number] Name: BAUTISTA RUFFIN Rep #: [id number] : 1960 [place] 64 From: Garry Cobian DO PCP: [facility] Status: REG ER Study: Venous Duplex Imag/Limited/Uni Date of Exam: 0 06/11/24 Exam# [id number] Ordering Dr: Alma Rosa Pedroza DO [id number] INDICATION: RT LEG PAIN EXAMINATION: Ultrasound US Venous Duplex RLE Unilat / Limited TECHNIQUE: Al scale, pulse wave, and color flow Doppler imaging was performed of the lower extremity venous system. The bilateral greater saphenous, common femoral, femoral, and popliteal veins were interrogated. COMPARISON: FINDINGS: There is normal compression, augmentation, and signal throughout the visualized deep lower extremity veins. No mass or fluid collection. US/Venous Duplex Imag/Limited/Uni IMPRESSION: No sonographic evidence of deep venous thrombosis. Electronically Signed: Garry Cobian DO at 20:09 EST Reading Location ID and State: [facility] / [place] Tel [phone], Service support , CC: Dr. Alma Rosa Pedroza DO; [facility] Terrazzo Grinder: Signed Normal [facility] White blood cell countOrdere d By: Alma Rosa Pedroza on 06-11-2024 Urine WBC >100 SEEN /hpf 0-5 [facility] CNPNon 05-06-2024 [facility] Telephone (AGPOB1) BAUTISTA RUFFIN ([id number]) 1960 M Date Time Provider Department 05/06/24 HETAL GALLEGOS AGADELEB1 During your visit today, we recorded the following information about you: Stacy Gongora 05/06/2024 8:17 AM Signed ----- Message from Hetal Gallegos MD sent at 05/04/2024 12:05 PM EST ----- Follow-up in 3 weeks please Stacy Gongora 05/06/2024 8:17 AM Signed I called the patient to schedule an appointment with MTM in 3 weeks. I left a voice mail with our office number to call back. Stacy Sampson 05/07/2024 9:08 AM Signed I called the patient to schedule an appointment. I left another voice mail with our office number to call back. Of note he has 2 numbers in the chart. The 601# does not work. Stacy Sampson 05/10/2024 10:30 AM Signed I spoke with the patient and scheduled an appointment. Stacy Gongora Allergies As of Date: 05/06/2024 (No Known Allergies) Date Reviewed: 05/03/2024 Reviewed by: Leslie Strange MD - Fully Assessed Prescriptions as of 05/10/2024 - multivitamin tablet Take 1 tablet by mouth once daily. - baclofen (LIORESAL) 20 mg tablet Take 20 mg by mouth three times daily. - gabapentin (NEURONTIN) 400 mg capsule Take 400 mg by mouth three times daily. - DULoxetine (CYMBALTA) 60 mg capsule Take 60 mg by mouth once daily. Problem List As Of Date: 05/06/2024 (None) Encounter Status:Closed by STACY GONGORA on 05/10/24 Normal [facility] Basic Metabolic Profile (BMP )on 05-03-2024 BUN/CRE 15.2 RATIO Normal 10-20 [facility] Comment on above: Performed By: #### L 500.3400, L501.2450, L100.0100, L500.2500, L501.4020, L300.8000 #### [facility] [address] [place], [place], [id number] CA,Total 9.4 mg/dL Normal 8.5-10.1 [facility] Comment on above: Performed By: #### L 500.3400, L501.2450, L100.0100, L500.2500, L501.4020, L300.8000 #### [facility] [address] [place], [address] Chloride [Moles/Vol] 106 mmol/L Normal 98-107 [facility] Comment on above: Performed By: #### L 500.3400, L501.2450, L100.0100, L500.2500, L501.4020, L300.8000 #### [facility] [address] [place], [address] CO2 [Moles/Vol] 33.0 mmol/L High 21.0-32.0 [facility] Comment on above: Performed By: #### L 500.3400, L501.2450, L100.0100, L500.2500, L501.4020, L300.8000 #### [facility] [address] [place], [address] Creatinine [Mass/Vol] 0.92 mg/dL Normal 0.70-1.30 [facility] Comment on above: Result Comment: The validity of the calculated GFR GFRAA in patients over 70 years has not been determined. Clinical correlation is essential. Performed By: #### L 500.3400, L501.2450, L100.0100, L500.2500, L501.4020, L300.8000 #### [facility] [address] [place], [address] ECRCL 82.18 ml/min Normal [facility] Comment on above: Performed By: #### L 500.3400, L501.2450, L100.0100, L500.2500, L501.4020, L300.8000 #### [facility] [address] [place], [address] EST GFR - AA 106 mL/min Normal >60 [facility] Comment on above: Result Comment: Afri can Cypriot GFR Calc Performed By: #### L 500.3400, L501.2450, L100.0100, L500.2500, L501.4020, L300.8000 #### [facility] [address] [place], [address] GAP 2 Low 5-15 [facility] Comment on above: Performed By: #### L 500.3400, L501.2450, L100.0100, L500.2500, L501.4020, L300.8000 #### [facility] [address] [place], [address] GFR/1.73 sq M.predicted among non-blacks MDRD (S/P/Bld) [Vol rate/Area] 88 mL/min/{1.73_m2} Normal >60 [facility] Comment on above: Result Comment: Non- GFR Calc Performed By: #### L 500.3400, L501.2450, L100.0100, L500.2500, L501.4020, L300.8000 #### [facility] [address] [place], [address] Glucose [Mass/Vol] 97 mg/dL Normal 74-106 [facility] Comment on above: Performed By: #### L 500.3400, L501.2450, L100.0100, L500.2500, L501.4020, L300.8000 #### [facility] [address] [place], [address] Potassium [Moles/Vol] 4.1 mmol/L Normal 3.5-5.1 [facility] Comment on above: Performed By: #### L 500.3400, L501.2450, L100.0100, L500.2500, L501.4020, L300.8000 #### [facility] [address] [place], [address] Sodium [Moles/Vol] 140 mmol/L Normal 136-145 [facility] Comment on above: Performed By: #### L 500.3400, L501.2450, L100.0100, L500.2500, L501.4020, L300.8000 #### [facility] [address] [place], [address] Urea nitrogen [Mass/Vol] 14 mg/dL Normal 7-18 [facility] Comment on above: Performed By: #### L 500.3400, L501.2450, L100.0100, L500.2500, L501.4020, L300.8000 #### [facility] [address] [place], [address] Basic metabolic 2000 panelon 05-03-2024 Anion gap [Moles/Vol] 10 mmol/L Normal 8-15 [facility] Comment on above: Order Comment: Speci men Type: BLOOD SPECIMEN Ordering Facility: [facility] Address: [address] [place] [address] Performed By: #### 2 4321-2 #### [facility] CLIA [id number] [address] [place] [address] [place] Calcium [Mass/Vol] 9.1 mg/dL Normal 8.5-10.2 [facility] Comment on above: Order Comment: Speci men Type: BLOOD SPECIMEN Ordering Facility: [facility] Address: [address] [place] [address] Performed By: #### 2 4321-2 #### [facility] CLIA [id number] [address] [place] [address] [place] Chloride [Moles/Vol] 106 mmol/L Normal 98-107 [facility] Comment on above: Order Comment: Speci men Type: BLOOD SPECIMEN Ordering Facility: [facility] Address: [address] [place] [address] Performed By: #### 2 4321-2 #### [facility] CLIA [id number] [address] [place] [address] [place] CO2 [Moles/Vol] 26 mmol/L Normal 22-30 [facility] Comment on above: Order Comment: Speci men Type: BLOOD SPECIMEN Ordering Facility: [facility] Address: [address] [place] [address] Performed By: #### 2 4321-2 #### [facility] CLIA [id number] [address] [place] [address] [place] Creatinine [Mass/Vol] 0.79 mg/dL Normal 0.73-1.22 [facility] Comment on above: Order Comment: Soha bray Type: BLOOD SPECIMEN Ordering Facility: [facility] Address: [address] [place] [address] Performed By: #### 2 4321-2 #### [facility] CLIA [id number] [address] Creatinine and Glomerular filtration rate.predicted panel (S/P/Bld) 100 mL/min/1.73m??? Normal >=60 [facility] Comment on above: Order Comment: Soha bray Type: BLOOD SPECIMEN Ordering Facility: [facility] Address: [address] [place] [address] Result Comment: Carey mated Glomerular Filtration Rate (eGFR) is calculated using the 2020 CKD-EPI creatinine equation. This equation utilizes serum creatinine, sex, and age as parameters. The creatinine assay has traceable calibration to isotope dilution-mass spectrometry. Refer to KDIGO guidelines for clinical interpretation. In patients with unstable renal function, e.g. those with acute kidney injury, the eGFR may not accurately reflect actual GFR. Performed By: #### 2 4321-2 #### [facility] CLIA [id number] [address] OF [facility] Glucose [Mass/Vol] 92 mg/dL Normal 74-99 [facility] Comment on above: Order Comment: Soha bray Type: BLOOD SPECIMEN Ordering Facility: [facility] Address: [address] [place] [address] Result Comment: The [place] Diabetes [employer] (ADA) provides guidance for cutoff values for fasting glucose and random glucose. The ADA defines fasting as no caloric intake for at least 8 hours. Fasting plasma glucose results between 100 to 125 mg/dL indicate increased risk for diabetes (prediabetes). Fasting plasma glucose results greater than or equal to 126 mg/dL meet the criteria for diagnosis of diabetes. In the absence of unequivocal hyperglycemia, results should be confirmed by repeat testing. In a patient with classic symptoms of hyperglycemia or hyperglycemic crisis, random plasma glucose results greater than or equal to 200 mg/dL meet the criteria for diagnosis of diabetes. Reference: Standards of Medical Care in Diabetes 2016, [place] [employer]. Diabetes Care. 2016.39(Suppl 1). Performed By: #### 2 4321-2 #### [facility] CLIA [id number] [address] STATES [facility] Potassium [Moles/Vol] 4.3 mmol/L Normal 3.7-5.1 [facility] Comment on above: Order Comment: Speci men Type: BLOOD SPECIMEN Ordering Facility: [facility] Address: [address] [place] [address] Performed By: #### 2 4321-2 #### [facility] CLIA [id number] [address] [place] [facility] Sodium [Moles/Vol] 142 mmol/L Normal 136-144 [facility] Comment on above: Order Comment: Speci men Type: BLOOD SPECIMEN Ordering Facility: [facility] Address: [address] [place] [address] Performed By: #### 2 4321-2 #### [facility] CLIA [id number] [address] [place] [facility] Urea nitrogen [Mass/Vol] 13 mg/dL Normal 9-24 [facility] Comment on above: Order Comment: Speci men Type: BLOOD SPECIMEN Ordering Facility: [facility] Address: [address] [place] [address] Performed By: #### 2 4321-2 #### [facility] CLIA [id number] [address] STATES OF [facility] CBC W Auto Differential pane l (Bld)on 05-03-2024 Basophils (Bld) [#/Vol] 0.07 10*3/uL Normal <0.11 [facility] Comment on above: Order Comment: Speci men Type: BLOOD SPECIMEN Ordering Facility: [facility] Address: [facility] [place] [address] Performed By: #### 5 7021-8 #### [facility] CLIA [id number] [address] Basophils/100 WBC (Bld) 0.5 % Normal [facility] Comment on above: Order Comment: Speci men Type: BLOOD SPECIMEN Ordering Facility: [facility] Address: [address] [place] [address] Performed By: #### 5 7021-8 #### [facility] CLIA [id number] [address] Differential cell count method Nom (Bld) Auto Normal [facility] Comment on above: Order Comment: Speci men Type: BLOOD SPECIMEN Ordering Facility: [facility] Address: [address] [place] [address] Performed By: #### 5 7021-8 #### [facility] CLIA [id number] [address] STATES OF [facility] Eosinophils (Bld) [#/Vol] 0.47 10*3/uL High <0.46 [facility] Comment on above: Order Comment: Speci men Type: BLOOD SPECIMEN Ordering Facility: [facility] Address: [address] [place] [address] Performed By: #### 5 7021-8 #### [facility] CLIA [id number] [address] Eosinophils/100 WBC (Bld) 3.2 % Normal [facility] Comment on above: Order Comment: Speci men Type: BLOOD SPECIMEN Ordering Facility: [facility] Address: [address] [place] [address] Performed By: #### 5 7021-8 #### [facility] CLIA [id number] [address] Erythrocyte distribution width (RBC) [Ratio] 18.1 % High 11.5-15.0 [facility] Comment on above: Order Comment: Speci men Type: BLOOD SPECIMEN Ordering Facility: [facility] Address: [address] [place] [address] Performed By: #### 5 7021-8 #### [facility] CLIA [id number] [address] [place] Hematocrit (Bld) [Volume fraction] 49.5 % Normal 39.0-51.0 [facility] Comment on above: Order Comment: Speci men Type: BLOOD SPECIMEN Ordering Facility: [facility] Address: [address] [place] [address] Performed By: #### 5 7021-8 #### [facility] CLIA [id number] [address] [place] Hemoglobin (Bld) [Mass/Vol] 16.3 g/dL Normal 13.0-17. 0 [facility] Comment on above: Order Comment: Speci men Type: BLOOD SPECIMEN Ordering Facility: [facility] Address: [address] [place] [address] Performed By: #### 5 7021-8 #### [facility] CLIA [id number] [address] [place] Immature granulocytes (Bld) [#/Vol] 0.08 10*3/uL Normal <0.10 [facility] Comment on above: Order Comment: Speci men Type: BLOOD SPECIMEN Ordering Facility: [facility] Address: [address] [place] [address] Performed By: #### 5 7021-8 #### [facility] CLIA [id number] [address] [place] Immature granulocytes/100 WBC (Bld) 0.5 % Normal [facility] Comment on above: Order Comment: Speci men Type: BLOOD SPECIMEN Ordering Facility: [facility] Address: [address] [place] [address] Performed By: #### 5 7021-8 #### [facility] CLIA [id number] [address] [place] Lymphocytes (Bld) [#/Vol] 3.35 10*3/uL Normal 1.00-4.0 0 [facility] Comment on above: Order Comment: Speci men Type: BLOOD SPECIMEN Ordering Facility: [facility] Address: [address] [place] [address] Performed By: #### 5 7021-8 #### [facility] CLIA [id number] [address] Lymphocytes/100 WBC (Bld) 22.8 % Normal [facility] Comment on above: Order Comment: Speci men Type: BLOOD SPECIMEN Ordering Facility: [facility] Address: [address] [place] [address] Performed By: #### 5 7021-8 #### [facility] CLIA [id number] [address] MCH (RBC) [Entitic mass] 28.6 pg Normal 26.0-34.0 [facility] Comment on above: Order Comment: Speci men Type: BLOOD SPECIMEN Ordering Facility: [facility] Address: [address] [place] [address] Performed By: #### 5 7021-8 #### [facility] CLIA [id number] [address] MCHC (RBC) [Mass/Vol] 32.9 g/dL Normal 30.5-36.0 [facility] Comment on above: Order Comment: Speci men Type: BLOOD SPECIMEN Ordering Facility: [facility] Address: [address] [place] [address] Performed By: #### 5 7021-8 #### [facility] CLIA [id number] [address] MCV (RBC) [Entitic vol] 86.8 fL Normal 80.0-100.0 [facility] Comment on above: Order Comment: Speci men Type: BLOOD SPECIMEN Ordering Facility: [facility] Address: [address] [place] [address] Performed By: #### 5 7021-8 #### [facility] CLIA [id number] [address] Monocytes (Bld) [#/Vol] 1.45 10*3/uL High <0.87 [facility] Comment on above: Order Comment: Speci men Type: BLOOD SPECIMEN Ordering Facility: [facility] Address: [address] [place] [address] Performed By: #### 5 7021-8 #### [facility] CLIA [id number] [address] [place] Monocytes/100 WBC (Bld) 9.9 % Normal [facility] Comment on above: Order Comment: Speci men Type: BLOOD SPECIMEN Ordering Facility: [facility] Address: [address] [place] [address] Performed By: #### 5 7021-8 #### [facility] CLIA [id number] [address] [place] Neutrophils (Bld) [#/Vol] 9.29 10*3/uL High 1.45-7.5 0 [facility] Comment on above: Order Comment: Speci men Type: BLOOD SPECIMEN Ordering Facility: [facility] Address: [address] [place] [address] Performed By: #### 5 7021-8 #### [facility] CLIA [id number] [address] OF [facility] Neutrophils/100 WBC (Bld) 63.1 % Normal [facility] Comment on above: Order Comment: Speci men Type: BLOOD SPECIMEN Ordering Facility: [facility] Address: [address] [place] [address] Performed By: #### 5 7021-8 #### [facility] CLIA [id number] [address] [place] Nucleated RBC (Bld) [#/Vol] 10*3/uL Normal <0.01 [facility] Comment on above: Order Comment: Speci men Type: BLOOD SPECIMEN Ordering Facility: [facility] Address: [address] [place] [address] Performed By: #### 5 7021-8 #### [facility] CLIA [id number] [address] [place] Nucleated RBC/100 WBC (Bld) [Ratio] 0.0 /100 WBC Normal [facility] Comment on above: Order Comment: Speci men Type: BLOOD SPECIMEN Ordering Facility: [facility] Address: [address] [place] [address] Performed By: #### 5 7021-8 #### [facility] CLIA [id number] [address] [place] [facility] Platelet mean volume (Bld) [Entitic vol] 9.5 fL Normal 9.0-12.7 [facility] Comment on above: Order Comment: Speci men Type: BLOOD SPECIMEN Ordering Facility: [facility] Address: [address] [place] [address] Performed By: #### 5 7021-8 #### [facility] CLIA [id number] [address] Platelets (Bld) [#/Vol] 268 10*3/uL Normal 150-400 [facility] Comment on above: Order Comment: Speci men Type: BLOOD SPECIMEN Ordering Facility: [facility] Address: [address] [place] [address] Performed By: #### 5 7021-8 #### [facility] CLIA [id number] [address] [place] RBC (Bld) [#/Vol] 5.70 10*6/uL Normal 4.20-6.00 [facility] Comment on above: Order Comment: Speci men Type: BLOOD SPECIMEN Ordering Facility: [facility] Address: [address] [place] [address] Performed By: #### 5 7021-8 #### [facility] CLIA [id number] [address] [place] WBC (Bld) [#/Vol] 14.71 10*3/uL High 3.70-11.00 [facility] Comment on above: Order Comment: Speci men Type: BLOOD SPECIMEN Ordering Facility: [facility] Address: [address] [place] [address] Performed By: #### 5 7021-8 #### [facility] CLIA [id number] [address] [place] CBC W/Diff, Automatedon 12-0 6-2023 Absolute Lymph 3.24 X10 3/uL Normal 0.83-4.51 [facility] Comment on above: Performed By: #### L 500.3400, L501.2450, L100.0100, L500.2500, L501.4020, L300.8000 #### [facility] [address] [place], [address] Absolute Neut 7.8 X10 3/uL High 2.0-7.7 [facility] Comment on above: Performed By: #### L 500.3400, L501.2450, L100.0100, L500.2500, L501.4020, L300.8000 #### [facility] [address] [place], [address] Basophils/100 WBC (Bld) 0.5 % Normal 0-1 [facility] Comment on above: Performed By: #### L 500.3400, L501.2450, L100.0100, L500.2500, L501.4020, L300.8000 #### [facility] [address] [place], [address] Eosinophils/100 WBC (Bld) 3.5 % Normal 0-5 [facility] Comment on above: Performed By: #### L 500.3400, L501.2450, L100.0100, L500.2500, L501.4020, L300.8000 #### [facility] [address] [place], [address] Erythrocyte distribution width (RBC) [Ratio] 18.0 % High 11.6-14.6 [facility] Comment on above: Performed By: #### L 500.3400, L501.2450, L100.0100, L500.2500, L501.4020, L300.8000 #### [facility] [address] [place], [address] Hematocrit (Bld) [Volume fraction] 53.3 % Normal 40-54 [facility] Comment on above: Performed By: #### L 500.3400, L501.2450, L100.0100, L500.2500, L501.4020, L300.8000 #### [facility] [address] [place], [address] Hemoglobin (Bld) [Mass/Vol] 17.0 g/dL High 13.0-16. 5 [facility] Comment on above: Performed By: #### L 500.3400, L501.2450, L100.0100, L500.2500, L501.4020, L300.8000 #### [facility] [address] [place], [address] IG% 0.400 Normal 0.0-0.9 [facility] Comment on above: Result Comment: IG% - Immature Granulocytes (promyelocytes, myelocytes and metamyelocytes) > 1% indicates that a LEFT SHIFT is Present. Performed By: #### L 500.3400, L501.2450, L100.0100, L500.2500, L501.4020, L300.8000 #### [facility] [address] [place], [address] Lymphocytes/100 WBC (Bld) 25.4 % Normal 19-41 [facility] Comment on above: Performed By: #### L 500.3400, L501.2450, L100.0100, L500.2500, L501.4020, L300.8000 #### [facility] [address] [place], [address] MCH (RBC) [Entitic mass] 27.6 pg Normal 27.0-32.0 [facility] Comment on above: Performed By: #### L 500.3400, L501.2450, L100.0100, L500.2500, L501.4020, L300.8000 #### [facility] [address] [place], [address] MCHC (RBC) [Mass/Vol] 31.9 g/dL Low 32-36 [facility] Comment on above: Performed By: #### L 500.3400, L501.2450, L100.0100, L500.2500, L501.4020, L300.8000 #### [facility] [address] [place], [address] MCV (RBC) [Entitic vol] 86.4 fL Normal 80-[address] [facility] Comment on above: Performed By: #### L 500.3400, L501.2450, L100.0100, L500.2500, L501.4020, L300.8000 #### [facility] [address] [place], [address] Monocytes/100 WBC (Bld) 8.8 % Normal 0-[address] [facility] Comment on above: Performed By: #### L 500.3400, L501.2450, L100.0100, L500.2500, L501.4020, L300.8000 #### [facility] [address] [place], [address] Neutrophils/100 WBC (Bld) 61.4 % Normal 47-70 [facility] Comment on above: Performed By: #### L 500.3400, L501.2450, L100.0100, L500.2500, L501.4020, L300.8000 #### [facility] [address] [place], [address] Nucleated RBC (Bld) [#/Vol] 0 10*3/uL Normal 0-5 [facility] Comment on above: Performed By: #### L 500.3400, L501.2450, L100.0100, L500.2500, L501.4020, L300.8000 #### [facility] [address] [place], [address] Platelet mean volume (Bld) [Entitic vol] 9.6 fL Normal 6.2-12.0 [facility] Comment on above: Performed By: #### L 500.3400, L501.2450, L100.0100, L500.2500, L501.4020, L300.8000 #### [facility] [address] [place], [address] Platelets (Bld) [#/Vol] 299 10*3/uL Normal 150-450 [facility] Comment on above: Performed By: #### L 500.3400, L501.2450, L100.0100, L500.2500, L501.4020, L300.8000 #### [facility] [address] [place], [address] RBC (Bld) [#/Vol] 6.17 10*6/uL Normal 4.6-6.2 [facility] Comment on above: Performed By: #### L 500.3400, L501.2450, L100.0100, L500.2500, L501.4020, L300.8000 #### [facility] [address] [place], [address] RDW SD 53.9 fl High 35.1-43.9 [facility] Comment on above: Performed By: #### L 500.3400, L501.2450, L100.0100, L500.2500, L501.4020, L300.8000 #### [facility] [address] [place], [address] WBC (Bld) [#/Vol] 12.8 10*3/uL High 4.4-11.0 [facility] Comment on above: Performed By: #### L 500.3400, L501.2450, L100.0100, L500.2500, L501.4020, L300.8000 #### [facility] [address] [place], [address] CONSULTon 05-03-2024 CONSULT HNO ID: [id number] Author: HETAL GALLEGOS MD Service: Orthopaedic Surgery Author Type: Physician Type: Consults Filed: 05/04/2024 12:05 Note Text: Orthopaedic Trauma Surgery Attending Addendum Reviewed resident Consultation. Agree with resident image interpretation, assessment and plan unless otherwise noted. The patient may follow-up as an outpatient. Hetal Gallegos MD Orthopaedic Trauma Surgery 05/04/2024 12:04 PM ORTHOPAEDIC SURGERY CONSULTATION Pt: BAUTISTA RUFFIN Date of Admission: 05/03/2024 Chief Complaint: Right ThighPain HPI:64 year old male presented to [facility] ED on 05/03/2024 for evaluation of right thigh pain. The patient is paraplegic at baseline and is bed bound. He states he has some minimal sensation in the lower extremities. His home health rn was moving his leg for range of motion exercises earlier today when he began having significant pain and came in to be evaluated. The patient denies anticoagulation utilization. States he is cared for by family at home. The patient has no additional orthopaedic complaints at this time. PAST MEDICAL HISTORY Diagnosis Date Sacral decubitus ulcer PAST SURGICAL HISTORY Procedure Laterality Date PAST SURGICAL HISTORY OF 12/23/11 sigmoid colostomy, appy Allergies: Patient has no known allergies. No current facility-administered medications for this encounter. Current Outpatient Medications Medication Sig multivitamin tablet Take 1 tablet by mouth once daily. oxyCODONE 10 mg tab Take 10 mg by mouth once daily. 4 times daily as needed baclofen (LIORESAL) 20 mg tablet Take 20 mg by mouth three times daily. gabapentin (NEURONTIN) 400 mg capsule Take 400 mg by mouth three times daily. DULoxetine (CYMBALTA) 60 mg capsule Take 60 mg by mouth once daily. No family history on file. Negative for family history of bleeding and clotting disorders. Social History Tobacco Use Smoking status: Every Day Substance Use Topics Alcohol use: No Drug use: No ROS: 10 pt ROS neg except in HPI O: Vitals: BP 102/73 Pulse 85 Temp 36.8 ?C (98.2 ?F) (Oral) Resp 17 Wt 86.2 kg (190 lb) SpO2 (!) 94% BMI 29.76 kg/m? Physical exam: General: AANDO x 3; NAD. Cooperative throughout entire interview Head: Atraumatic, Normocephalic Neck: Supple Chest: Unlabored breathing on room air Neuro: Grossly intact Right Lower Extremity: The extremity is externally rotated and the knee is flexed. Ankle is externally rotated and flexed to 90 degrees. There are no superficial abrasions, lacerations or open wounds present about the thigh. There is no erythema, ecchymosis or significant swelling of the lower extremity. Formal hip and knee range of motion was not assessed due to known femur fracture. No motor function at baseline. Minimal sensation at baseline. Secondary Survey: No TTP of any other bony prominences or joints of the upper and lower extremities bilaterally except that described above. Labs: Recent Labs 05/03/24 1846 CREAT 0.79 BUN 13 NA 142 K 4.3 CHLOR 106 CO2 26 ANION 10 GLUC 92 CA 9.1 WBC 14.71* HB 16.3 HCT 49.5 PLT 268 COAGS: No results found for this basename: aptt,inr SED RATE/CRP: No results found for this basename: wsr:*,crp:* Imaging: -XR of the right Femur: demonstrates a displaced comminuted intertrochanteric femur fracture with extension into the proximal femur. There is superior migration of the femur and significant bony loss of femoral head. A/P: 64 year old male with a right proximal femur fracture. -Non-weightbearing of the right lower extremity -Pain control -Regular diet -IVF -Chronic lima catheter -DVT PPX: SCDs to the bilateral lower extremities, ok for DVT ppx if necessary -Will plan for conservative management of right femur fx at this time given patient does not ambulate and does not want surgery -Recommend admission to medicine if pain control and placement is needed -Patient may follow up outpatient with Dr. Gallegos for subsequent XR to assess for healing with nonoperative treatment -Case discussed with Dr. Gallegos, all in agreement with assessment and plan Nisha Carrion MD Orthopaedic Surgery 05/03/2024 10:08 PM Normal [facility] ED NOTEon 05-03-2024 ED NOTE HNO ID: [id number] Author: BILLY COOLEY RN Service: ? Author Type: Registered Nurse Type: ED Notes Filed: 05/03/2024 22:46 Note Text: PT health information technician light, asking for sth for pain. Dr. Grissom notified. Normal [facility] ED NOTE HNO ID: [id number] Author: WAYNE LAMBERT Medic Service: ? Author Type: General Practitioner and Manager Math Type: ED Notes Filed: 05/03/2024 16:34 Note Text: Bed: 26-ED Expected date: 05/03/24 Expected time: 4:12 PM Means of arrival: [facility] Comments: Squad when clean Normal [facility] ED PROV NOTEon 05-03-2024 ED PROV NOTE HNO ID: [id number] Author: LESLIE STRANGE MD Service: Emergency Medicine Author Type: Physician Type: ED Provider Notes Filed: 05/08/2024 09:35 Note Text: ED Provider Note Patient Name: Bautista Ruffin : 1960 SERVICE DATE: 05/03/24 History Patient presents with: Hip Pain: Patient arrives to ED from [place] [facility] for ortho consult. Patient has right hip fracture. Occurred during PT/OT while moving leg. Patient is paraplegic. Received 50mcg of fentanyl before arrival. Patient presents as a transfer from [place] for right hip fracture. Patient has past medical history of paraplegia, has a colostomy bag and a suprapubic catheter. Patient is paraplegic from the chest down and was at PT OT earlier today where they will exercise his legs for him. Nurse picked up his right leg he felt and heard a pop and then his leg deformed at the hip, the nurse dropped a leg ran out of the room. Patient stated he felt immediate pain in the right hip and was taken to [facility] for evaluation where he was found to have a nondisplaced subtrochanteric right femur fracture. He was transferred to [facility] for Ortho consult. PAST MEDICAL HISTORY Diagnosis Date Sacral decubitus ulcer PAST SURGICAL HISTORY Procedure Laterality Date PAST SURGICAL HISTORY OF 12/23/11 sigmoid colostomy, appy No family history on file. Social History Tobacco Use Smoking status: Every Day Smokeless tobacco: Not on file Substance and Sexual Activity Alcohol use: No Drug use: No Sexual activity: Not Currently ALLERGIES No Known Allergies Review of Systems Constitutional: Negative for fever. HENT: Negative for rhinorrhea. Respiratory: Negative for cough. Gastrointestinal: Negative for abdominal pain, diarrhea, nausea and vomiting. Musculoskeletal: Positive for arthralgias and joint swelling. Negative for back pain. Skin: Negative for color change. Neurological: Positive for weakness. Negative for light-headedness. Physical Exam Vitals [05/03/24 1636] BP Pulse Temp Temp src Resp SpO2 Weight Height 117/86 76 36.8 ?C (98.2 ?F) Oral 16 96 % 86.2 kg (190 lb) -- Physical Exam Vitals and nursing note reviewed. Constitutional: General: He is not in acute distress. Appearance: He is well-developed. HENT: Head: Normocephalic and atraumatic. Eyes: Conjunctiva/sclera: Conjunctivae normal. Pupils: Pupils are equal, round, and reactive to light. Cardiovascular: Rate and Rhythm: Normal rate. Pulses: Normal pulses. Pulmonary: Effort: Pulmonary effort is normal. No respiratory distress. Breath sounds: No stridor. Abdominal: Tenderness: There is no abdominal tenderness. Musculoskeletal: General: Tenderness and deformity (Right hip) present. Normal range of motion. Cervical back: Normal range of motion and neck supple. Skin: General: Skin is warm and dry. Capillary Refill: Capillary refill takes less than 2 seconds. Findings: No rash. Neurological: Mental Status: He is alert and oriented to person, place, and time. Mental status is at baseline. Motor: No abnormal muscle tone. Comments: Patient has quadriplegia from the chest down with diminished sensations in his bilateral lower extremities Psychiatric: Behavior: Behavior normal. Diagnostic Testing ED Labs Ordered and Reviewed - No data to display Procedures ED Course / Clinical Impression Clinical Impressions as of 05/04/24 0014 Closed fracture of trochanter of right femur, initial encounter (HCC) MDM / Disposition / Plan Patient presenting with concern for nondisplaced right subtrochanteric femur fracture. Shakir sent a paper packet with his information, however did not send electronic images and did not push images to our system. Radiology read stated a nondisplaced right subtrochanteric femur fracture. On exam the patient had negative pain to logroll, however with minor manipulation of the leg there was a notable 'clunk' which felt to this resident like bone moving on bone. With no images to see to evaluate the patient he was sent for repeat imaging. X-ray hip and femur which did confirm the fracture. Ortho was consulted and came down to evaluate the patient. The patient stated he does not want surgery due to being bedbound at baseline he fails to see the benefit. Ortho agreed and stated he is cleared from their perspective and if his pain can be controlled hecan be discharged, otherwise he will require medical admit for pain control. Discussed these options with the patient shared decision making was used. Patient wanted to trial oral pain medications so that he could go home and he was given 1 Percocet. Patient reevaluated after 1 hour on his pain had been reduced however not illuminated. Patient believe this was manageable and expressed a desire to go home. Had a conversation with the patient explaining we could offer him short-term prescription pain medications, however he (more content not included)... Normal [facility] Emergency Department Summary on 05-03-2024 Emergency Department Summary [facility] Medical Records Department [address] [place] [address] Emergency Department Summary 05/03/24 MR#: [id number] Acct: [id number] Name: BAUTISTA RUFFIN Rep #: [id number] : 1960 64 From: Jaclyn HOLCOMB PCP: [facility] Status:DEP ER Location: ED HPI History of Present Illness Chief Complaint: Lower Extremity Injury Narrative Narrative: 64-year-old male is paraplegic and states his aide was doing range of motion exercises of his legs when there was an audible pop of his right hip and he is concerned it could be out of place. No history of prior hip surgery. He is bedbound. [facility] Medical History Acute paralytic poliomyelitis, wild virus, indigenous Anxiety and depression Atherosclerotic heart disease of teller coronary artery without angina pectoris Benign essential hypertension Chronic indwelling Lima catheter Depression Heavy alcohol use Neurogenic bladder Osteomyelitis of right femur Transverse myelitis Home Medications ???Medication ???Instructions ???Recorded ???Last Taken ???Type baclofen 20 mg tablet 20 mg PO TID muscle spasms 02/26/13 06/27/21 History multivitamin with folic acid 400 1 tab PO LUNCH supplemeny 02/26/13 06/27/21 History mcg tablet (Thera) gabapentin 100 mg capsule 900 mg PO TID neuropathy 04/19/13 06/27/21 History nortriptyline 50 mg capsule 100 mg PO QHS anxiety 01/19/19 06/26/21 History ascorbic acid (vitamin C) 1,000 mg 1 g PO DAILY Check with primary 06/28/21 Unknown History tablet (Vitamin C) doctor cholecalciferol (vitamin D3) 50 50 mcg PO DAILY Check with primary 06/28/21 Unknown History mcg (2,000 unit) capsule (Vitamin doctor D3) docusate sodium 100 mg capsule 100 mg PO BID Check with primary 06/28/21 Unknown History doctor doxycycline monohydrate 100 mg 100 mg PO BID Check with primary 06/28/21 Unknown History capsule doctor loratadine 10 mg capsule 10 mg PO DAILY Check with primary 06/28/21 Unknown History doctor venlafaxine 75 mg tablet 75 mg PO DAILY Check with primary 06/28/21 Unknown History doctor apixaban 2.5 mg tablet (Eliquis) 2.5 mg PO BID 30 days #60 tabs 06/29/21 Unknown Rx aspirin 81 mg tablet,delayed 81 mg PO BREAKFAST 30 days #30 tabs 06/29/21 Unknown Rx release carvedilol 6.25 mg tablet 6.25 mg PO BID 30 days #60 tabs 06/29/21 Unknown Rx rosuvastatin 10 mg tablet (Crestor) 10 mg PO DAILY #30 tabs 06/29/21 Unknown Rx ticagrelor 90 mg tablet (Brilinta) 90 mg PO BID 30 days #60 tabs 06/29/21 Unknown Rx lisinopril 2.5 mg tablet 2.5 mg PO DAILY #30 tabs 07/06/21 Unknown Rx lorazepam 0.5 mg tablet (Ativan) 0.5 mg PO BID PRN nausea and 05/22/22 Unknown Rx vomiting #6 tabs ondansetron 4 mg disintegrating 4 mg PO Q6H PRN nausea and 05/22/22 Unknown Rx tablet vomiting #10 tabs ciprofloxacin HCl 500 mg tablet 500 mg PO BID #14 tabs 06/06/22 Unknown Rx ondansetron 4 mg disintegrating 4 mg PO Q8H PRN nausea and 06/06/22 Unknown Rx tablet vomiting #10 tabs Allergy/AdvReac Type Severity Reaction Status Date / Time No Known Allergies Allergy Verified 10/09/23 01:12 Family History Father CVA (cerebral vascular accident) Heart disease Myocardial infarction Surgical History Colostomy in place History of appendectomy History of coronary artery stent placement (06/28/21) History of femoral derotational osteotomy History of suprapubic catheter Hx of colostomy Social History household members: spouse Smoking Status: Light Smoker (<10/day) alcohol intake: former substance use type: marijuana ROS ROS ED ROS Narrative Constitutional: Negative for fever, chills, malaise. Neuro: Positive for paraplegia. Musc: Positive for chronic leg edema. EXAM Physical Exam Narrative Exam Narrative: CONST: Patient sitting in no acute distress. EYES: Normal inspection. NECK: Normal inspection. RESP: No respiratory distress, CTAB. CVS: Regular rate and rhythm, no murmur, no gallop. SKIN: Color normal, no rash, warm, dry, intact. EXTREMITIES: Chronic atrophy and edema of both lower extremities makes it hard to appreciate if there is shortening or rotation. No sensation to light touch from paraplegia. 2+ DP pulses. NEURO: Alert and answering questions appropriately. PSYCH: Normal affect. Const Vital Signs: 05/03/24 11:38 05/03/24 13:38 05/03/24 15:00 Temperature 97.9 F Temperature Source Oral Pulse Rate 80 81 77 Respiratory Rate 16 16 16 Blood Pressure 166/104 H 160/85 H 132/82 H Blood Pressure Mean 124 110 98 Pulse Ox 94 97 95 Oxygen Delivery Me (more content not included)... Normal [facility] HIP, UNI W/ Pelvis 2-3 Views on 05-03-2024 HIP, UNI W/ Pelvis 2-3 Views [facility] Imaging Services [address], [place] [id number] HIP, UNI W/ Pelvis 2-3 Views MR#: [id number] Acct: [id number] Name: BAUTISTA RUFFIN Rep #: [id number] : 1960 M 64 From: Abdoul esteves MD PCP: [facility] Status: REG ER Study: HIP, UNI W/ Pelvis 2-3 Views Date of Exam: 11/19 Exam# [id number] Ordering Dr: Jaclyn Méndez [id number] STUDY: X-RAY - PELVIS AND RIGHT HIP REASON FOR EXAM: Male, 64 years old. Right hip pain following a fall. TECHNIQUE: 4 views of the pelvis and hip. COMPARISON: None. FINDINGS: Large amount of fecal material is seen in the colon. Soft tissue swelling. There is narrowing with cortical sclerosis and osteophyte formation of the sacroiliac joint consistent with degenerative osteoarthritic changes. Normal bilateral superior and inferior pubic rami. Normal pubic symphysis. Normal bilateral ischial tuberosities. Essentially nondisplaced oblique fracture of the subtrochanteric region of the proximal right femur. Deformity of the left femoral neck with the apparent fusion of the left hip joint. Abnormal appearance of the right femur is suggestive of possible metastasis or multiple myeloma. RAD/HIP, UNI W/ Pelvis 2-3 Views IMPRESSION: Nondisplaced acute subtrochanteric fracture of the proximal right femur. Abnormal appearance of the right femur. Possible metastasis or multiple myeloma. Electronically Signed: Abdoul Munoz MD at 12:34 EST , CC: AICHA Correa; [facility] Terrazzo Grinder: Signed Normal [facility] XR FEMUR 2V AP/LAT RTon XR FEMUR 2V AP/LAT RT * * *Final Report* * * DATE OF EXAM: May 03 2024 7:14PM [id number] - XR FEMUR 2V AP/LAT RT / PROCEDURE REASON: Fracture, femur * * * * Physician Interpretation * * * * EXAMINATION: XR HIP 3V PELV+ AP/LAT RT, XR FEMUR 2V AP/LAT RT Clinical History: Pain after trauma. Comparison: None RESULT: Limited examination secondary to pre-existing chronic deformities involving the pelvis. Limited evaluation of distal right femur and knee secondary to positioning and severe osteopenia. Acute, comminuted, and displaced right proximal femur fracture. 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 Superior dislocation of right proximal femur. Recommend CT pelvis and CT right hip. The sacroiliac joints are grossly symmetric. The pubic symphysis appears aligned. Lower lumbar spine appears grossly unremarkable. Moderate degenerative changes. IMPRESSION: Acute, comminuted, and displaced right proximal femur fracture. 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 Superior dislocation of right proximal femur. Recommend CT pelvis. Limited evaluation of distal right femur and knee secondary to positioning and severe osteopenia. Apparent soft tissue swelling anteriorly. Follow-up CT KNEE may be obtained, as clinically warranted. Terrazzo Grinder[facility] Transcribe Date/Time: May 03 2024 8:06P Dictated by : ERNESTO CORRALES MD This examination was interpreted and the report reviewed and electronically signed by: ERNESTO CORRALES MD on May 03 2024 8:11PM EST [id number] Normal [facility] XR HIP 3V PELV+ AP/LAT RTon 05-03-2024 XR HIP 3V PELV+ AP/LAT RT * * *Final Rep ort* * * DATE OF EXAM: May 03 2024 7:14PM [id number] - XR HIP 3V PELV+ AP/LAT RT / PROCEDURE REASON: Fracture, hip * * * * Physician Interpretation * * * * EXAMINATION: XR HIP 3V PELV+ AP/LAT RT, XR FEMUR 2V AP/LAT RT Clinical History: Pain after trauma. Comparison: None RESULT: Limited examination secondary to pre-existing chronic deformities involving the pelvis. Limited evaluation of distal right femur and knee secondary to positioning and severe osteopenia. Acute, comminuted, and displaced right proximal femur fracture. 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 Superior dislocation of right proximal femur. Recommend CT pelvis and CT right hip. The sacroiliac joints are grossly symmetric. The pubic symphysis appears aligned. Lower lumbar spine appears grossly unremarkable. Moderate degenerative changes. IMPRESSION: Acute, comminuted, and displaced right proximal femur fracture. 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 Superior dislocation of right proximal femur. Recommend CT pelvis. Limited evaluation of distal right femur and knee secondary to positioning and severe osteopenia. Apparent soft tissue swelling anteriorly. Follow-up CT KNEE may be obtained, as clinically warranted. Terrazzo Grinder: [facility] Transcribe Date/Time: May 03 2024 8:06P Dictated by : ERNESTO CORRALES MD This examination was interpreted and the report reviewed and electronically signed by: ERNESTO CORRALES MD on May 03 2024 8:11PM EST [id number] Normal [facility] Absolute lymphocyte countOrd ered By: Adan Bell on 10-09-2023 Lymphocytes Auto (Unsp spec) [#/Vol] 3.10 10*3/uL 0.83-4.51 [facility] Automated lymphocyte count a s percentage of total leukocytesOrdered By: Adan Bell on 10-09-2023 Lymphocytes/100 WBC Auto (Unsp spec) 16.3 % 19-41 [facility] Basophil percentageOrdered B y: Adan Bell on 10-09-2023 Basophils/100 WBC (Bld) 0.6 % 0-1 [facility] Chloride [Moles/Vol] 100 mmol/L 98-107 [facility] Eosinophils/100 WBC (Bld) 0.8 % 0-5 [facility] Glucose [Mass/Vol] 124 mg/dL 74-106 [facility] Comment on above: Fasting Glucose resu lt from 100 to 125 mg/dL suggests IMPAIRED HOMEOSTASIS per A.D.A. criteria. Hemoglobin (Bld) [Mass/Vol] 16.5 g/dL 13.0-16. 5 [facility] Monocytes/100 WBC (Bld) 15.1 % 0-[address] [facility] Neutrophils (Bld) [#/Vol] 12.6 10*3/uL 2.0-7.7 [facility] Neutrophils/100 WBC (Bld) 66.7 % 47-70 [facility] Potassium [Moles/Vol] 3.6 mmol/L 3.5-5.1 [facility] Sodium [Moles/Vol] 136 mmol/L 136-145 [facility] WBC (Bld) [#/Vol] 19.0 10*3/uL 4.4-11.0 [facility] Blood manual differential co mment interpretation (narrative result)Ordered By: Adan Bell on 10-09-2023 Manual differential comment Isrrael (Bld) [Interp] SCANNED [facility] Comment on above: MONOCYTOSIS PRESENT Determination of erythrocyte mean corpuscular volume (MCV)Ordered By: Adan Bell on 10-09-2023 MCV (RBC) [Entitic vol] 84.3 fL 80-94 [facility] Erythrocyte distribution wid th ratioOrdered By: Adan Bell on 10-09-2023 Erythrocyte distribution width (RBC) [Ratio] 14.9 % 11.6-14.6 [facility] Erythrocyte distribution wid th standard deviationOrdered By: Adan Bell on 10-09-2023 Erythrocyte distribution width (RBC) [Entitic vol] 45.5 fL 35.1-43.9 [facility] Hematocrit Auto (Bld) [Volum e fraction]Ordered By: Adan Bell on 10-09-2023 Hematocrit (Bld) [Volume fraction] 50.0 % 40-54 [facility] Immature granulocytes/100 WB C Auto (Bld)Ordered By: Adan Bell on 10-09-2023 Immature granulocytes/100 WBC (Bld) 0.500 % 0.0-0.9 [facility] Comment on above: IG% - Immature Granu locytes (promyelocytes, myelocytes and metamyelocytes) > 1% indicates that a LEFT SHIFT is Present. Laboratory - Chemistry and C hemistry - challengeOrdered By: Adan Bell on 10-09-2023 CO2 [Moles/Vol] 26.0 mmol/L 21.0-32.0 [facility] Urea nitrogen/Creatinine [Mass ratio] 17.3 mg/mg 10-20 [facility] Laboratory - Hematology and Cell countsOrdered By: Adan Bell on 10-09-2023 MCH (RBC) [Entitic mass] 27.8 pg 27.0-32.0 [facility] MCHC (RBC) [Mass/Vol] 33.0 g/dL 32-36 [facility] Nucleated RBC/100 WBC (Bld) [Ratio] 0 % 0-5 [facility] Platelet mean volume (Bld) [Entitic vol] 9.5 fL 6.2-12.0 [facility] Platelets (Bld) [#/Vol] 531 10*3/uL 150-450 [facility] No Panel InformationOrdered By: Adan Bell on 10-09-2023 Troponin I High Sensitivity 7 pg/mL 3.0-78.0 [facility] Comment on above: Please Note: New Tanya t Units and Gender Specific Reference Ranges. For more information see Policy Stat Procedure Reserve High Sensitivity Troponin (TNIH) and attachments. Estimated GFR (MDRD) Amer 135 mL/min >60 [facility] Comment on above: GFR Calc Estimated GFR (MDRD) Non-Af Amer 112 mL/min >60 [facility] Comment on above: Non- GFR Calc RBC Auto (Bld) [#/Vol]Ordere d By: Adan Bell on 10-09-2023 RBC (Bld) [#/Vol] 5.93 10*6/uL 4.6-6.2 [facility] Review by pathologistOrdered By: Adan Bell on 10-09-2023 Pathologist review Isrrael (Unsp spec) [Interp] September [facility] Serum or plasma calcium shantal urement (mass/volume)Ordered By: Adan Bell on 10-09-2023 Calcium [Mass/Vol] 9.7 mg/dL 8.5-10.1 [facility] Serum or plasma creatinine m easurement (mass/volume)Ordered By: Adan Bell on 10-09-2023 Creatinine [Mass/Vol] 0.75 mg/dL 0.70-1.30 [facility] Comment on above: The validity of the calculated GFR & GFRAA in patients over 70 years has not been determined. Clinical correlation is essential. Serum or plasma urea nitroge n measurement (mass/volume)Ordered By: Adan Bell on 10-09-2023 Urea nitrogen [Mass/Vol] 13 mg/dL 7-18 [facility] Thin prep Papanicolaou smear with manual screeningOrdered By: Adan Bell on 10-09-2023 Thin prep Papanicolaou smear with manual screening 10 5-15 [facility] Absolute lymphocyte counton 06-06-2022 Lymphocytes Auto (Unsp spec) [#/Vol] 3.07 10*3/uL 0.83-4.51 [facility] Work Phone: Basophil percentageon 2022 Basophil percentage 10-25 SEEN /hpf 0-5 [facility] Work Phone: Basophils/100 WBC (Bld) 0.3 % 0-1 [facility] Work Phone: Chloride [Moles/Vol] 109 mmol/L 98-107 [facility] Work Phone: Eosinophils/100 WBC (Bld) 1.4 % 0-5 [facility] Work Phone: Glucose [Mass/Vol] 93 mg/dL 74-106 [facility] Work Phone: Neutrophils (Bld) [#/Vol] 10.5 10*3/uL 2.0-7.7 [facility] Work Phone: Neutrophils/100 WBC (Bld) 67.2 % 47-70 [facility] Work Phone: Potassium [Moles/Vol] 3.8 mmol/L 3.5-5.1 [facility] Work Phone: Sodium [Moles/Vol] 143 mmol/L 136-145 [facility] Work Phone: WBC (Bld) [#/Vol] 15.7 10*3/uL 4.4-11.0 [facility] Work Phone: Bilirubin Test strip Ql (U)o n 06-06-2022 Bilirubin Ql (U) Negative Negative [facility] Work Phone: Blood erythrocytes count (nu mber/volume)on 06-06-2022 RBC (Bld) [#/Vol] 5.18 10*6/uL 4.6-6.2 [facility] Work Phone: Blood hemoglobin measurement (mass/volume)on 06-06-2022 Hemoglobin (Bld) [Mass/Vol] 14.2 g/dL 13.0-16. 5 [facility] Work Phone: [phone] Blood lymphocytes/100 leukoc yteson 06-06-2022 Lymphocytes/100 WBC (Bld) 19.6 % 19-41 [facility] Work Phone: [phone] Blood manual differential co mment interpretation (narrative result)on 06-06-2022 Manual differential comment Isrrael (Bld) [Interp] SCANNED [facility] Work Phone: Blood monocytes/100 leukocyt eson 06-06-2022 Monocytes/100 WBC (Bld) 10.9 % 0-10 [facility] Work Phone: [phone] Blood platelet mean volumeon 06-06-2022 Platelet mean volume (Bld) [Entitic vol] 9.5 fL 6.2-12.0 [facility] Work Phone: Determination of erythrocyte mean corpuscular volume (MCV)on 06-06-2022 MCV (RBC) [Entitic vol] 87.1 fL 80-94 [facility] Work Phone: Hematocrit Auto (Bld) [Volum e fraction]on 06-06-2022 Hematocrit (Bld) [Volume fraction] 45.1 % 40-54 [facility] Work Phone: Ketones Test strip Ql (U)on 06-06-2022 Ketones Ql (U) 5 mg/dl Negative [facility] Work Phone: Laboratory - Chemistry and C hemistry - challengeon 06-06-2022 CO2 [Moles/Vol] 29.0 mmol/L 21.0-32.0 [facility] Work Phone: Urea nitrogen/Creatinine [Mass ratio] 21.8 mg/mg 10-20 [facility] Work Phone: Laboratory - Hematology and Cell countson 06-06-2022 Erythrocyte distribution width (RBC) [Entitic vol] 49.6 fL 35.1-43.9 [facility] Work Phone: Erythrocyte distribution width (RBC) [Ratio] 15.7 % 11.6-14.6 [facility] Work Phone: Immature granulocytes/100 WBC (Bld) 0.600 % 0.0-0.9 [facility] Work Phone: Comment on above: IG% - Immature Granu locytes (promyelocytes, myelocytes and metamyelocytes) > 1% indicates that a LEFT SHIFT is Present. MCH (RBC) [Entitic mass] 27.4 pg 27.0-32.0 [facility] Work Phone: Nucleated RBC/100 WBC (Bld) [Ratio] 0 % 0-5 [facility] Work Phone: MCHC Auto (RBC) [Mass/Vol]on 06-06-2022 MCHC (RBC) [Mass/Vol] 31.5 g/dL 32-36 [facility] Work Phone: Mucus LM Ql (Urine sed)on Mucus Ql (Urine sed) 0 SEEN /hpf [facility] Work Phone: Nitrite Test strip Ql (U)on 06-06-2022 Nitrite Ql (U) Positive Negative [facility] Work Phone: No Panel Informationon 06-06 Estimated Creatinine Clearance Calc 88.45 ml/min [facility] Work Phone: Estimated GFR (MDRD) Amer 122 mL/min >60 [facility] Work Phone: Comment on above: GFR Calc Estimated GFR (MDRD) Non-Af Amer 101 mL/min >60 [facility] Work Phone: Comment on above: Non- GFR Calc Platelets bldon 06-06-2022 Platelets (Bld) [#/Vol] 433 10*3/uL 150-450 [facility] Work Phone: Protein Test strip Ql (U)on 06-06-2022 Protein Ql (U) 15 mg/dl Negative [facility] Work Phone: Review by pathologiston Pathologist review Isrrael (Unsp spec) [Interp] Eleni youssef [facility] Work Phone: Serum or plasma calcium shantal urement (mass/volume)on 06-06-2022 Calcium [Mass/Vol] 9.1 mg/dL 8.5-10.1 [facility] Work Phone: Serum or plasma creatinine m easurement (mass/volume)on 06-06-2022 Creatinine [Mass/Vol] 0.82 mg/dL 0.70-1.30 [facility] Work Phone: Comment on above: The validity of the calculated GFR & GFRAA in patients over 70 years has not been determined. Clinical correlation is essential. Serum or plasma urea nitroge n measurement (mass/volume)on 06-06-2022 Urea nitrogen [Mass/Vol] 18 mg/dL 7-18 [facility] Work Phone: Squamous epithelial cells de tection in urine sediment by light microscopyon 06-06-2022 Epithelial cells.squamous LM Ql (Urine sed) 0 SEEN /hpf 0-5 [facility] Work Phone: Thin prep Papanicolaou smear with manual screeningon 06-06-2022 Thin prep Papanicolaou smear with manual screening 5 5-15 [facility] Work Phone: Urine blood detectionon RBC Ql (U) 25 /ul Negative [facility] Work Phone: RBC Ql (U) 0-5 SEEN /hpf 0-5 [facility] Work Phone: Urine clarityon 06-06-2022 Clarity (U) Clear Clear [facility] Work Phone: Urine color determinationon 06-06-2022 Color (U) Yellow Yellow [facility] Work Phone: Urine glucose detectionon Glucose Ql (U) Normal mg/dl Normal [facility] Work Phone: Urine leukocyte esterase det ection by dipstickon 06-06-2022 Leukocyte esterase Test strip Ql (U) 500 /ul Negative [facility] Work Phone: Urine pHon 06-06-2022 pH (U) 6.0 [pH] 5.0 - 8.0 [facility] Work Phone: Urine sediment bacteria coun t by microscopy (number/high power field)on 06-06-2022 Bacteria LM.HPF (Urine sed) [#/Area] 2 /[HPF] None Seen [facility] Work Phone: Urine specific gravity measu rementon 06-06-2022 Specific gravity (U) [Rel density] 1.020 1.002-1.03 0 [facility] Work Phone: Urobilinogen Auto test strip Ql (U)on 06-06-2022 Urobilinogen Ql (U) Normal mg/dl Normal [facility] Work Phone: Absolute lymphocyte counton 05-22-2022 Lymphocytes Auto (Unsp spec) [#/Vol] 0.67 10*3/uL 0.83-4.51 [facility] Work Phone: Basophil percentageon 2021 Basophils/100 WBC (Bld) 0.4 % 0-1 [facility] Work Phone: Chloride [Moles/Vol] 105 mmol/L 98-107 [facility] Work Phone: Eosinophils/100 WBC (Bld) 0.1 % 0-5 [facility] Work Phone: Glucose [Mass/Vol] 102 mg/dL 74-106 [facility] Work Phone: Comment on above: Fasting Glucose resu lt from 100 to 125 mg/dL suggests IMPAIRED HOMEOSTASIS per A.D.A. criteria. Neutrophils (Bld) [#/Vol] 7.0 10*3/uL 2.0-7.7 [facility] Work Phone: Neutrophils/100 WBC (Bld) 77.2 % 47-70 [facility] Work Phone: Potassium [Moles/Vol] 4.2 mmol/L 3.5-5.1 [facility] Work Phone: [phone] Comment on above: Slight Hemolysis, Re sult may be falsely increased. Sodium [Moles/Vol] 135 mmol/L 136-145 [facility] Work Phone: [phone] WBC (Bld) [#/Vol] 9.1 10*3/uL 4.4-11.0 [facility] Work Phone: [phone] Blood erythrocytes count (nu mber/volume)on 05-22-2022 RBC (Bld) [#/Vol] 5.47 10*6/uL 4.6-6.2 [facility] Work Phone: [phone] Blood hemoglobin measurement (mass/volume)on 05-22-2022 Hemoglobin (Bld) [Mass/Vol] 15.6 g/dL 13.0-16. 5 [facility] Work Phone: Blood lymphocytes/100 leukoc yteson 05-22-2022 Lymphocytes/100 WBC (Bld) 7.3 % 19-41 [facility] Work Phone: Blood monocytes/100 leukocyt eson 05-22-2022 Monocytes/100 WBC (Bld) 14.7 % 0-10 [facility] Work Phone: Blood platelet mean volumeon 05-22-2022 Platelet mean volume (Bld) [Entitic vol] 9.7 fL 6.2-12.0 [facility] Work Phone: Determination of erythrocyte mean corpuscular volume (MCV)on 05-22-2022 MCV (RBC) [Entitic vol] 84.5 fL 80-94 [facility] Work Phone: [phone] Hematocrit Auto (Bld) [Volum e fraction]on 05-22-2022 Hematocrit (Bld) [Volume fraction] 46.2 % 40-54 [facility] Work Phone: [phone] Laboratory - Chemistry and C hemistry - challengeon 05-22-2022 CO2 [Moles/Vol] 22.0 mmol/L 21.0-32.0 [facility] Work Phone: Urea nitrogen/Creatinine [Mass ratio] 22.5 mg/mg 10-20 [facility] Work Phone: Laboratory - Hematology and Cell countson 05-22-2022 Erythrocyte distribution width (RBC) [Entitic vol] 49.6 fL 35.1-43.9 [facility] Work Phone: Erythrocyte distribution width (RBC) [Ratio] 16.1 % 11.6-14.6 [facility] Work Phone: Immature granulocytes/100 WBC (Bld) 0.300 % 0.0-0.9 [facility] Work Phone: Comment on above: IG% - Immature Granu locytes (promyelocytes, myelocytes and metamyelocytes) > 1% indicates that a LEFT SHIFT is Present. MCH (RBC) [Entitic mass] 28.5 pg 27.0-32.0 [facility] Work Phone: Nucleated RBC/100 WBC (Bld) [Ratio] 0 % 0-5 [facility] Work Phone: MCHC Auto (RBC) [Mass/Vol]on 05-22-2022 MCHC (RBC) [Mass/Vol] 33.8 g/dL 32-36 [facility] Work Phone: No Panel Informationon 05-22 Estimated Creatinine Clearance Calc 92.35 ml/min [facility] Work Phone: Estimated GFR (MDRD) Amer 119 mL/min >60 [facility] Work Phone: Comment on above: GFR Calc Estimated GFR (MDRD) Non-Af Amer 98 mL/min >60 [facility] Work Phone: Comment on above: Non- GFR Calc Platelets bldon 05-22-2022 Platelets (Bld) [#/Vol] 268 10*3/uL 150-450 [facility] Work Phone: Serum or plasma calcium shantal urement (mass/volume)on 05-22-2022 Calcium [Mass/Vol] 9.1 mg/dL 8.5-10.1 [facility] Work Phone: Serum or plasma creatinine m easurement (mass/volume)on 05-22-2022 Creatinine [Mass/Vol] 0.84 mg/dL 0.70-1.30 [facility] Work Phone: Comment on above: The validity of the calculated GFR & GFRAA in patients over 70 years has not been determined. Clinical correlation is essential. Serum or plasma urea nitroge n measurement (mass/volume)on 05-22-2022 Urea nitrogen [Mass/Vol] 19 mg/dL 7-18 [facility] Work Phone: [phone] Thin prep Papanicolaou smear with manual screeningon 05-22-2022 Thin prep Papanicolaou smear with manual screening 8 5-15 [facility] Work Phone: [phone] Absolute lymphocyte counton 09-09-2021 Lymphocytes Auto (Unsp spec) [#/Vol] 2.88 10*3/uL 0.83-4.51 [facility] Work Phone: [phone] Basophil percentageon 2021 Basophils/100 WBC (Bld) 0.5 % 0-1 [facility] Work Phone: [phone] Chloride [Moles/Vol] 111 mmol/L 98-107 [facility] Work Phone: [phone] Eosinophils/100 WBC (Bld) 4.8 % 0-5 [facility] Work Phone: [phone] Glucose [Mass/Vol] 109 mg/dL 74-106 [facility] Work Phone: Comment on above: Fasting Glucose resu lt from 100 to 125 mg/dL suggests IMPAIRED HOMEOSTASIS per A.D.A. criteria. Neutrophils (Bld) [#/Vol] 6.3 10*3/uL 2.0-7.7 [facility] Work Phone: [phone] Neutrophils/100 WBC (Bld) 59.3 % 47-70 [facility] Work Phone: Potassium [Moles/Vol] 3.9 mmol/L 3.5-5.1 [facility] Work Phone: Sodium [Moles/Vol] 140 mmol/L 136-145 [facility] Work Phone: WBC (Bld) [#/Vol] 10.5 10*3/uL 4.4-11.0 [facility]: Blood erythrocytes count (nu mber/volume)on 09-09-2021 RBC (Bld) [#/Vol] 5.23 10*6/uL 4.6-6.2 [facility] Work Phone: Blood hemoglobin measurement (mass/volume)on 09-09-2021 Hemoglobin (Bld) [Mass/Vol] 15.0 g/dL 13.0-16. 5 [facility] Work Phone: Blood lymphocytes/100 leukoc yteson 09-09-2021 Lymphocytes/100 WBC (Bld) 27.4 % 19-41 [facility] Work Phone: Blood monocytes/100 leukocyt eson 09-09-2021 Monocytes/100 WBC (Bld) 7.5 % 0-10 [facility] Work Phone: Blood platelet mean volumeon 09-09-2021 Platelet mean volume (Bld) [Entitic vol] 9.1 fL 6.2-12.0 [facility] Work Phone: Determination of erythrocyte mean corpuscular volume (MCV)on 09-09-2021 MCV (RBC) [Entitic vol] 88.5 fL 80-94 [facility] Work Phone: Hematocrit Auto (Bld) [Volum e fraction]on 09-09-2021 Hematocrit (Bld) [Volume fraction] 46.3 % 40-54 [facility] Work Phone: [phone] Laboratory - Chemistry and C hemistry - challengeon 09-09-2021 CO2 [Moles/Vol] 25.0 mmol/L 21.0-32.0 [facility] Work Phone: Urea nitrogen/Creatinine [Mass ratio] 22.4 mg/mg 10-20 [facility] Work Phone: Laboratory - Hematology and Cell countson 09-09-2021 Erythrocyte distribution width (RBC) [Entitic vol] 49.1 fL 35.1-43.9 [facility] Work Phone: Erythrocyte distribution width (RBC) [Ratio] 15.0 % 11.6-14.6 [facility] Work Phone: Immature granulocytes/100 WBC (Bld) 0.500 % 0.0-0.9 [facility] Work Phone: Comment on above: IG% - Immature Granu locytes (promyelocytes, myelocytes and metamyelocytes) > 1% indicates that a LEFT SHIFT is Present. MCH (RBC) [Entitic mass] 28.7 pg 27.0-32.0 [facility] Work Phone: Nucleated RBC/100 WBC (Bld) [Ratio] 0 % 0-5 [facility] Work Phone: MCHC Auto (RBC) [Mass/Vol]on 09-09-2021 MCHC (RBC) [Mass/Vol] 32.4 g/dL 32-36 [facility] Work Phone: No Panel Informationon 09-09 Estimated Creatinine Clearance Calc 80.85 ml/min [facility] Work Phone: Estimated GFR (MDRD) Amer 105 mL/min >60 [facility] Work Phone: Comment on above: GFR Calc Estimated GFR (MDRD) Non-Af Amer 87 mL/min >60 [facility] Work Phone: Comment on above: Non- GFR Calc Platelets bldon 09-09-2021 Platelets (Bld) [#/Vol] 308 10*3/uL 150-450 [facility] Work Phone: Serum or plasma calcium shantal urement (mass/volume)on 09-09-2021 Calcium [Mass/Vol] 9.0 mg/dL 8.5-10.1 [facility] Work Phone: Serum or plasma creatinine m easurement (mass/volume)on 09-09-2021 Creatinine [Mass/Vol] 0.94 mg/dL 0.70-1.30 [facility] Work Phone: Comment on above: The validity of the calculated GFR & GFRAA in patients over 70 years has not been determined. Clinical correlation is essential. Serum or plasma urea nitroge n measurement (mass/volume)on 09-09-2021 Urea nitrogen [Mass/Vol] 21 mg/dL 7-18 [facility] Work Phone: Thin prep Papanicolaou smear with manual screeningon 09-09-2021 Thin prep Papanicolaou smear with manual screening 4 5-15 [facility] Work Phone: Basophil percentageon 2021 Bilirubin [Mass/Vol] 0.60 mg/dL 0.20-1.00 [facility] Work Phone: Comment on above: For patients on eltr ombopag therapy, use of Dimension Reserve TBIL is not recommended. Chloride [Moles/Vol] 105 mmol/L 98-107 [facility] Work Phone: Glucose [Mass/Vol] 112 mg/dL 74-106 [facility] Work Phone: Comment on above: Fasting Glucose resu lt from 100 to 125 mg/dL suggests IMPAIRED HOMEOSTASIS per A.D.A. criteria. Potassium [Moles/Vol] 3.9 mmol/L 3.5-5.1 [facility] Work Phone: Protein [Mass/Vol] 7.6 g/dL 6.4-8.2 [facility] Work Phone: Sodium [Moles/Vol] 136 mmol/L 136-145 [facility] Work Phone: WBC (Bld) [#/Vol] 14.9 10*3/uL 4.4-11.0 [facility] Work Phone: Blood erythrocytes count (nu mber/volume)on 06-29-2021 RBC (Bld) [#/Vol] 6.16 10*6/uL 4.6-6.2 [facility] Work Phone: Blood hemoglobin measurement (mass/volume)on 06-29-2021 Hemoglobin (Bld) [Mass/Vol] 18.1 g/dL 13.0-16. 5 [facility] Work Phone: Blood platelet mean volumeon 06-29-2021 Platelet mean volume (Bld) [Entitic vol] 9.8 fL 6.2-12.0 [facility] Work Phone: Determination of erythrocyte mean corpuscular volume (MCV)on 06-29-2021 MCV (RBC) [Entitic vol] 86.7 fL 80-94 [facility] Work Phone: Hematocrit Auto (Bld) [Volum e fraction]on 06-29-2021 Hematocrit (Bld) [Volume fraction] 53.4 % 40-54 [facility] Work Phone: Laboratory - Chemistry and C hemistry - challengeon 06-29-2021 ALP [Catalytic activity/Vol] 167 U/L 45-117 [facility] Work Phone: ALT [Catalytic activity/Vol] 23 U/L 16-61 [facility] Work Phone: CO2 [Moles/Vol] 24.0 mmol/L 21.0-32.0 [facility] Work Phone: Globulin (S) [Mass/Vol] 4.5 g/dL 2.2-4.2 [facility] Work Phone: Urea nitrogen/Creatinine [Mass ratio] 19.4 mg/mg 10-20 [facility] Work Phone: Laboratory - Hematology and Cell countson 06-29-2021 Erythrocyte distribution width (RBC) [Entitic vol] 49.0 fL 35.1-43.9 [facility] Work Phone: Erythrocyte distribution width (RBC) [Ratio] 16.0 % 11.6-14.6 [facility] Work Phone: MCH (RBC) [Entitic mass] 29.4 pg 27.0-32.0 [facility] Work Phone: MCHC Auto (RBC) [Mass/Vol]on 06-29-2021 MCHC (RBC) [Mass/Vol] 33.9 g/dL 32-36 [facility] Work Phone: Comment on above: Delta: 32.1 on 06/28-704 No Panel Informationon 06-29 Estimated Creatinine Clearance Calc 113.43 ml/min [facility] Work Phone: Estimated GFR (MDRD) Amer 156 mL/min >60 [facility] Work Phone: Comment on above: GFR Calc Estimated GFR (MDRD) Non-Af Amer 129 mL/min >60 [facility] Work Phone: Comment on above: Non- GFR Calc Platelets bldon 06-29-2021 Platelets (Bld) [#/Vol] 283 10*3/uL 150-450 [facility] Work Phone: Review by pathologiston Pathologist review Isrrael (Unsp spec) [Interp] Reviewed [facility] Work Phone: Comment on above: Previous reported re sult: Eleni youssef Edited by: ELOY on 06/30/21:0932Neutrophilic leukocytosis.Clinical correlation suggested.Norris Mc D.O. 06/30/21 AMENDED REPORT 06/30/21 0932 PATH REV previously reported as: Eleni youssef Serum or plasma albumin shantal urement (mass/volume)on 06-29-2021 Albumin [Mass/Vol] 3.1 g/dL 3.2-5.0 [facility] Work Phone: Serum or plasma albumin/glob ulin mass ratioon 06-29-2021 Albumin/Globulin [Mass ratio] 0.7 {ratio} 0.9-2.4 [facility] Work Phone: Serum or plasma calcium shantal urement (mass/volume)on 06-29-2021 Calcium [Mass/Vol] 9.5 mg/dL 8.5-10.1 [facility] Work Phone: Serum or plasma creatinine m easurement (mass/volume)on 06-29-2021 Creatinine [Mass/Vol] 0.67 mg/dL 0.70-1.30 [facility] Work Phone: Comment on above: The validity of the calculated GFR & GFRAA in patients over 70 years has not been determined. Clinical correlation is essential. Serum or plasma urea nitroge n measurement (mass/volume)on 06-29-2021 Urea nitrogen [Mass/Vol] 13 mg/dL 7-18 [facility] Work Phone: Thin prep Papanicolaou smear with manual screeningon 06-29-2021 Thin prep Papanicolaou smear with manual screening 36 U/L 15-37 [facility] Work Phone: Thin prep Papanicolaou smear with manual screening 7 5-15 [facility] Work Phone: Absolute lymphocyte counton 06-28-2021 Lymphocytes Auto (Unsp spec) [#/Vol] 2.53 10*3/uL 0.83-4.51 [facility] Work Phone: Basophil percentageon 2021 Basophils/100 WBC (Bld) 0.4 % 0-1 [facility] Work Phone: Cholesterol [Mass/Vol] 142 mg/dL <200 [facility] Work Phone: Comment on above: <200 mg/dL Desirable 200-240 mg/dL Borderline >240 mg/dL High Risk Eosinophils/100 WBC (Bld) 2.1 % 0-5 [facility] Work Phone: Neutrophils (Bld) [#/Vol] 8.4 10*3/uL 2.0-7.7 [facility] Work Phone: Neutrophils/100 WBC (Bld) 69.2 % 47-70 [facility] Work Phone: Triglyceride [Mass/Vol] 141 mg/dL [facility] Work Phone: Comment on above: The drugs N-Acetylcy steine and Metamizole may falsely depress this assay.Serum Triglycerides Reference Interval Normal <150 mg/dL Borderline high 150 - 199 mg/dL High 200 - 499 mg/dL Very High > or = 500 mg/dL Blood lymphocytes/100 leukoc yteson 06-28-2021 Lymphocytes/100 WBC (Bld) 20.9 % 19-41 [facility] Work Phone: Blood monocytes/100 leukocyt eson 06-28-2021 Monocytes/100 WBC (Bld) 6.9 % 0-10 [facility] Work Phone: Laboratory - Chemistry and C hemistry - challengeon 06-28-2021 Magnesium [Mass/Vol] 2.1 mg/dL 1.6-2.6 [facility] Work Phone: Laboratory - Hematology and Cell countson 06-28-2021 Immature granulocytes/100 WBC (Bld) 0.500 % 0.0-0.9 [facility] Work Phone: Comment on above: IG% - Immature Granu locytes (promyelocytes, myelocytes and metamyelocytes) > 1% indicates that a LEFT SHIFT is Present. Nucleated RBC/100 WBC (Bld) [Ratio] 0 % 0-5 [facility] Work Phone: No Panel Informationon 06-28 Troponin I High Sensitivity 3963 pg/mL 3.0-78.0 [facility] Work Phone: Comment on above: Critical Result(s) C alled at: 08:02:18 06/28/2021 by: Yesi Teresa. Results read back by same. Please Note: New Test Units and Gender Specific Reference Ranges. For more information see Policy Stat Procedure Reserve High Sensitivity Troponin (TNIH) and attachments. Serum or plasma cholesterol in HDL measurement (mass/volume)on 06-28-2021 Cholesterol in HDL [Mass/Vol] 39 mg/dL [facility] Work Phone: Comment on above: The drugs N-Acetylcy steine and Metamizole may falsely depress this assay. Reference Range HDL <40 mg/dL Low HDL Cholesterol HDL >or= 60 mg/dL High HDL Cholesterol Serum or plasma cholesterol in VLDL measurement (mass/volume)on 06-28-2021 Cholesterol in VLDL [Mass/Vol] 28 mg/dL 5-40 [facility] Work Phone: Serum or plasma low density lipoprotein (LDL) cholesterol measurement (mass/volume)on 06-28-2021 Cholesterol in LDL [Mass/Vol] 75 mg/dL 0-130 [facility] Work Phone: Basic Metabolic Panelon 12-3 Anion gap 3 mmol/L Normal [facility] Comment on above: Performed By: #### H EMOG, LACT3, BMP3 ####[address] [place] [address] Calcium 8.5 mg/dL Normal 8.4-10.2 [facility] Comment on above: Performed By: #### H EMOG, LACT3, BMP3 ####[address] [place] [address] CO2 27 mmol/L Normal 22-30 [facility] Comment on above: Performed By: #### H EMOG, LACT3, BMP3 ####[address] [place] [address] Glucose mass conc 111 mg/dL High 70-100 [facility] Comment on above: Performed By: #### H EMOG, LACT3, BMP3 ####[address] [place] [address] Urea nitrogen 13 mg/dL Normal 7-20 [facility] Comment on above: Performed By: #### H EMOG, LACT3, BMP3 ####[address] [place] [address] Creatinine 0.71 mg/dL Normal 0.52-1.25 [facility] Comment on above: Performed By: #### H EMOG, LACT3, BMP3 ####[address] [place] [address] eGFR (black) mL/min/{1.73_m2} Normal >60 [facility] Comment on above: Performed By: #### H EMOG, LACT3, BMP3 ####[address] [place] [address] eGFR (non-black) mL/min/{1.73_m2} Normal >60 [facility] Comment on above: Result Comment: Sour ce- MDRD equation with creatinine calibration to IDMS(NKDEP)eGFR not recommended for drug dose adjustment Performed By: #### H EMOSaravanan, LACT3, BMP3 ####[address] [place] [address] Potassium molar conc 4.8 mmol/L Normal 3.5-5.1 [facility] Comment on above: Performed By: #### H EMOG, LACT3, BMP3 ####[address] [place] [address] Sodium 136 mmol/L Low 137-145 [facility] Comment on above: Performed By: #### H EMOG, LACT3, BMP3 ####[address] [place] [address] Chloride 106 mmol/L Normal 98-107 [facility] Comment on above: Performed By: #### H EMOG, LACT3, BMP3 ####[address] [address] [place] [address] Hemogramon 05-28-2017 Erythrocyte distribution width Auto Ratio (RBC) 19.0 % High 11.5-14.5 [facility] Comment on above: Performed By: #### H EMOG, LACT3, BMP3 ####[address] [address] Erythrocytes (RBC) 3.46 10*6/uL Low 4.40-5.90 [facility] Comment on above: Performed By: #### H EMOG, LACT3, BMP3 ####[address] [place] [address] Hematocrit (HCT) 28.1 % Low 40.0-52.0 [facility] Comment on above: Performed By: #### H EMOG, LACT3, BMP3 ####[address] [address] Hemoglobin mass conc (Bld) 9.1 g/dL Low 13.0-18.0 [facility] Comment on above: Performed By: #### H EMOG, LACT3, BMP3 ####[address] [address] MCH 26.4 pg Normal 26.0-34.0 [facility] Comment on above: Performed By: #### H EMOG, LACT3, BMP3 ####[address] [address] MCHC mass conc (RBC) 32.4 % Normal 32.0-36.0 [facility] Comment on above: Performed By: #### H EMOG, LACT3, BMP3 ####[address] [address] MCV 81.4 fL Normal 80.0-98.0 [facility] Comment on above: Performed By: #### H EMOG, LACT3, BMP3 ####[address] [address] Platelet mean volume (PMV) 6.9 fL Low 7.4-10.4 [facility] Comment on above: Performed By: #### H EMOG, LACT3, BMP3 ####[address] [address] Platelets 573 10*3/uL High 140-440 [facility] Comment on above: Performed By: #### H EMOG, LACT3, BMP3 ####[address] [address] WBC (Leukocytes) 11.2 10*3/uL High 3.6-10.7 [facility] Comment on above: Performed By: #### H EMOG, LACT3, BMP3 ####[address] [address] CR Chest Portableon 05-27-20 17 CR Chest Portable Patient Name: BAUTISTA RUFFIN Diagnostic Radiology Exam Date/Time 05/27/2017 11:05:26 EST Exam CR Chest Portable Ordering Physician DO FORBES KATHRYN C Accession Number [id number] CPT4 Codes 63506 () Reason For Exam line placement Report Clinical indications: Line placement FINDINGS: A single view is submitted and compared with a prior study from 05/26/2017. A left upper extremity PICC line is identified in satisfactory position, catheter tip in the mid superior vena cava. Coiling of the tip seen on the previous examination is no longer present. The cardiomediastinal silhouette is stable and unremarkable. The lungs remain clear bilaterally. IMPRESSION: Satisfactory position and appearance of left upper extremity PICC line. Report Dictated on Final Dictated: 05/27/2017 11:11 am Dictating Physician: MD WOLF RUSSELL Signed Date and Time: 05/27/2017 11:11 am Signed by: MD WOLF RUSSELL Transcribed Date and Time: 05/27/2017 11:11 Normal [facility] Lactic Acidon 05-27-2017 Lactate 1.4 mmol/L Normal 0.7-2.0 [facility] Comment on above: Performed By: #### H EMOG, LACT3, BMP3 ####[place] [address] CR Chest Portableon 05-26-20 17 CR Chest Portable Patient Name: BAUTISTA RUFFIN Diagnostic Radiology Exam Date/Time 05/26/2017 16:21:52 EST Exam CR Chest Portable Ordering Physician DO FORBES KATHRYN C Accession Number [id number] CPT4 Codes 48414 () Reason For Exam line placement Report INDICATION:Line placement. PORTABLE CHEST: COMPARISON: None. The left side PICC line tip lies in region of the proximal superior cava. There is a small coil involving the distal tip of the PICC line with the tip directed superiorly. No pneumothorax. Minimal linear atelectasis and or scarring in the right lower lung. IMPRESSION: Tip of the PICC line lies in the region of the superior vena cava with the tip directed superiorly from a coiled configuration of the distal 7 cm of the line. Report Dictated on Final Dictated: 05/26/2017 7:29 pm Dictating Physician: MD SWANN LAURA Signed Date and Time: 05/26/2017 7:31 pm Signed by: MD SWANN LAURA Transcribed Date and Time: 05/26/2017 7:29 Normal [facility] US Fine Needle Aspiration w/ Image Guideon 05-25-2017 US Fine Needle Aspiration w/ Image Guide Patient Name: BAUTISTA RUFFIN Ultrasound Exam Date/Time 05/25/2017 12:15:00 EST Exam US Fine Needle Aspiration w/ Image Guide Ordering Physician MD PERRY RAMA D Accession Number [id number] CPT4 Codes 46306 () Reason For Exam rt hip effusion Report Reason for examination: Paraplegic patient with sepsis, 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 Ultrasound guided right hip aspiration was performed with the patient in his bed. The procedure, risks, benefits, and alternatives were explained to the patient, and informed consent was obtained. [place] protocol was followed with time out. The patient's CT scan and plain films were reviewed, and preprocedure ultrasound was performed, and the right hip joint effusion was detectable at accessible by ultrasound. Following sterile preparation, draping, and local anesthetic administration, an 18-gauge Chiba needle was inserted from an oblique approach into the right hip capsule at the junction of the head and neck. There was aspiration of approximately 3 mL of bloody pus, which was submitted for anaerobic and aerobic cultures. The patient tolerated the procedure and there were no immediate complications. IMPRESSION: Satisfactory ultrasound guided right hip aspiration, as described above . Report Dictated on Final Dictated: 05/25/2017 1:35 pm Dictating Physician: MD COLLINS DANIEL Signed Date and Time: 05/25/2017 1:37 pm Signed by: MD COLLINS DANIEL Transcribed Date and Time: 05/25/2017 1:35 Normal [facility] Basic Metabolic Panelon 04-29 Calcium 8.0 mg/dL Low 8.4-10.2 [facility] Comment on above: Performed By: #### H EMOG, LACT3, BMP3 ####[address] [place] [address] Anion gap 2 mmol/L Normal [facility] Comment on above: Performed By: #### H EMOG, LACT3, BMP3 ####[address] [place] [address] CO2 30 mmol/L Normal 22-30 [facility] Comment on above: Performed By: #### H EMOG, LACT3, BMP3 ####[address] [place] [address] Creatinine 0.60 mg/dL Normal 0.52-1.25 [facility] Comment on above: Performed By: #### H EMOG, LACT3, BMP3 ####[address] [place] [address] eGFR (black) mL/min/{1.73_m2} Normal >60 [facility] Comment on above: Performed By: #### H EMOG, LACT3, BMP3 ####[address] [place] [address] eGFR (non-black) mL/min/{1.73_m2} Normal >60 [facility] Comment on above: Result Comment: Sour ce- MDRD equation with creatinine calibration to IDMS(NKDEP)eGFR not recommended for drug dose adjustment Performed By: #### H EMOG, LACT3, BMP3 ####[address] [place] [address] Glucose mass conc 98 mg/dL Normal 70-100 [facility] Comment on above: Performed By: #### H EMOG, LACT3, BMP3 ####[address] [place] [address] Urea nitrogen 6 mg/dL Low 7-20 [facility] Comment on above: Performed By: #### H EMOG, LACT3, BMP3 ####[address] [place] [address] Chloride 106 mmol/L Normal 98-107 [facility] Comment on above: Performed By: #### H EMOG, LACT3, BMP3 ####[address] [place] [address] Potassium molar conc 3.7 mmol/L Normal 3.5-5.1 [facility] Comment on above: Performed By: #### H EMOG, LACT3, BMP3 ####[address] [place] [address] Sodium 138 mmol/L Normal 137-145 [facility] Comment on above: Performed By: #### H EMOG, LACT3, BMP3 ####[address] [place] [address] CULTUREon 05-24-2017 CULTURE Specimen Source Comment:Body Fluid [facility] Patient name: BAUTISTA RUFFINGageR.N.: [id number] : 1960 Age: 57 Sex: M Ord. Physician: CHIVO PERRY Location: [address] [place] [address] Copy to: CHIVO PERRY Adm. Date: 05/19/17 MICROBIOLOGYORDER#: [id number] COLLECTED: 05/24/17 14:18SOURCE: Aspirate Right (Hip) RECEIVED: 05/25/17 17:54 OE C O M M E N T S Sp ecimen Source Comment:Body FluidSTAIN GRAM FINAL 05/25/17 22:41107/26/16Moderate polymorphonuclear cells/lpf.No organisms seen.CULTURE Rare Escherichia coli E. coli ANTIBIOTICS HARMAN INTRP Amikacin <=2 S Amoxicillin/Clavulanic A 4 S Ampicillin >=32 R Ampicillin/Sulbactam 16 I Aztreonam <=1 S Cefazolin <=4 R Cefepime <=1 S Ceftriaxone <=1 S Ciprofloxacin 1 S Ertapenem <=0.5 S Gentamicin <=1 S Levofloxacin 1 S Meropenem <=0.25 S Pip/Tazobactam <=4 S Tetracycline 2 S Trimeth/Sulfa <=20 S S=SENSITIVE I=INTERMEDIATE R=RESISTANT S-DD=SUSCEPTIBLE DOSE DEPENDENT HARMAN VALUES = ug/mL Normal [facility] Comment on above: Performed By: #### H EMOG, LACT3, BMP3 ####[address] [address] CULTURE MYCOBACTERIA Conc.on 05-24-2017 CULTURE MYCOBACTERIA Conc. Specimen Sour ce Comment:Body Fluid [facility] Patient name: BAUTISTA RUFFIN WilderN.: [id number] : 1960 Age: 57 Sex: M Ord. Physician: CHIVO PERRY Location: [address] [place] [address] Copy to: CHIVO PERRY DISCHARGED: 05/30/17Adm. Date: 05/19/17 MICROBIOLOGYORDER#: [id number] COLLECTED: 05/24/17 14:18SOURCE: Aspirate Right (Hip) RECEIVED: 05/25/17 17:51 OE C O M M E N T S Sp ecimen Source Comment:Body FluidCULTURE MYCOBACTERIA Conc. FINAL 07/07/17 17:351Test performed at [facility]07/07/17No acid-fast bacilli isolated after 6 weeks incubation. Normal [facility] Comment on above: Performed By: #### H EMOG, LACT3, BMP3 ####[place] [address] Ironon 05-24-2017 Saturation 7 % Low 15-50 [facility] Comment on above: Performed By: #### H EMOG, LACT3, BMP3 ####[address] [place] [address] Total Iron Binding Cap. 142 ug/dL Low 261-497 [facility] Comment on above: Performed By: #### H EMOG, LACT3, BMP3 ####[address] [place] [address] Iron, Total <10 Low 49-181 [facility] Comment on above: Performed By: #### H EMOG, LACT3, BMP3 ####[address] [place] [address] STAIN ACID-FASTon 05-24-2017 STAIN ACID-FAST Specimen Source Comment:Body Fluid [facility] Patient name: BAUTISTA RUFFIN M.R.N.: [id number] : 1960 Age: 57 Sex: M Ord. Physician: CHIVO PERRY Location: [address] [place] [address] Copy to: CHIVO PERRY Adm. Date: 05/19/17 MICROBIOLOGYORDER#: [id number] COLLECTED: 05/24/17 14:18SOURCE: Aspirate Right (Hip) RECEIVED: 05/25/17 17:51 BUSTER Huber Hakeem herr Source Comment:Body FluidSTAIN ACID-FAST FINAL 05/26/17 21:011No acid-fast bacilli seen in smear.-Method: Fluorescent Stain Normal [facility] Comment on above: Performed By: #### H EMOG, LACT3, BMP3 ####[address] [place] [address] Vitamin B12on 05-24-2017 Cobalamins (Vitamin B12) 538 pg/mL Normal 239-931 [facility] Comment on above: Performed By: #### H EMOSaravanan, LACT3, BMP3 ####[address] [place] [address] Basic Metabolic Panelon 04-29 Anion gap 4 mmol/L Normal [facility] Comment on above: Performed By: #### H EMOG, LACT3, BMP3 ####[address] [place] [address] Calcium 7.6 mg/dL Low 8.4-10.2 [facility] Comment on above: Performed By: #### H EMOG, LACT3, BMP3 ####[address] [place] [address] CO2 24 mmol/L Normal 22-30 [facility] Comment on above: Performed By: #### H EMOG, LACT3, BMP3 ####[address] [place] [address] Glucose mass conc 112 mg/dL High 70-100 [facility] Comment on above: Performed By: #### H EMOG, LACT3, BMP3 ####[address] [place] [address] Urea nitrogen 9 mg/dL Normal 7-20 [facility] Comment on above: Performed By: #### H EMOG, LACT3, BMP3 ####[address] [place] [address] Creatinine 0.62 mg/dL Normal 0.52-1.25 [facility] Comment on above: Performed By: #### H EMOG, LACT3, BMP3 ####[address] [place] [address] eGFR (black) mL/min/{1.73_m2} Normal >60 [facility] Comment on above: Performed By: #### H EMOG, LACT3, BMP3 ####[address] [place] [address] eGFR (non-black) mL/min/{1.73_m2} Normal >60 [facility] Comment on above: Result Comment: Sour ce- MDRD equation with creatinine calibration to IDMS(NKDEP)eGFR not recommended for drug dose adjustment Performed By: #### H EMOG, LACT3, BMP3 ####[address] [place] [address] Chloride 115 mmol/L High 98-107 [facility] Comment on above: Performed By: #### H EMOG, LACT3, BMP3 ####[address] [place] [address] Potassium molar conc 3.1 mmol/L Low 3.5-5.1 [facility] Comment on above: Performed By: #### H EMOG, LACT3, BMP3 ####[address] [place] [address] Sodium 143 mmol/L Normal 137-145 [facility] Comment on above: Performed By: #### H EMOG, LACT3, BMP3 ####[address] [place] [address] CT Pelvis w/ Contrast (IV On ly)on 05-23-2017 CT Pelvis w/ Contrast (IV Only) Patient Name: BAUTISTA RUFFIN CT Exam Date/Time 05/23/2017 14:28:[address] Pelvis w/ Contrast (IV Only) Ordering Physician TRINA MAYER Accession Number [id number] CPT4 Codes Q9967 (), 81854 (CT Pelvis w/ Contrast (IV Only)) Reason For Exam ABSCESS, PELVIS Report CT pelvis with contrast Clinical indications: Pelvic osteomyelitis Following the intravenous administration of 75 mL of Isovue-370 contrast, axial CT images of the pelvis were obtained. Coronal and sagittal reformatted images were also made available for interpretation. COMPARISON: Plain films performed the day prior No fracture of the bony pelvis, left hip, or right hip is identified. There is extensive heterotopic ossification anterior to the left hip, with bony bridging between the lesser trochanter of the left hip and anterior aspect of the left acetabulum. The left acetabulum is shallow and there is chronic appearing subluxation of the left femoral head. The bones are osteopenic. There is also a shallow appearance of the right acetabulum with lateral subluxation of the femoral head relative to the acetabulum. Large decubitus ulcers are noted, with external exposure of the posterior aspect of the left and right ischial tuberosities, posterior aspect of the right femoral head, and posterior aspect of the coccyx. There is diffuse subcutaneous edema within the pelvis and upper thighs, however no definite focal fluid collection is seen to suggest abscess. A moderate-sized right hip joint effusion is noted. There is a suprapubic catheter decompressing the urinary bladder. A left lower quadrant colostomy is also present. IMPRESSION: Large decubitus ulcers with direct external exposure of the posterior aspect of the coccyx, posterior aspect of the left and right ischial tuberosities, and posterior aspect of the right femoral head. Large amount of heterotopic ossification with dense bony bridging between the lesser trochanter of the left hip and anterior aspect of the acetabulum. Moderate-sized right hip joint effusion. Given the direct external exposure of the posterior aspect of the right femoral head, the possibility of a septic joint cannot be excluded. Report Dictated on Final Dictated: 05/23/2017 3:48 pm Dictating Physician: SARAH OTERO Signed Date and Time: 05/23/2017 4:03 pm Signed by: SARAH OTERO Transcribed Date and Time: 05/23/2017 3:48 Normal [facility] Hemogramon 05-23-2017 Erythrocyte distribution width Auto Ratio (RBC) 18.5 % High 11.5-14.5 [facility] Comment on above: Performed By: #### H EMOG, LACT3, BMP3 ####[address] [address] Erythrocytes (RBC) 3.28 10*6/uL Low 4.40-5.90 [facility] Comment on above: Performed By: #### H EMOG, LACT3, BMP3 ####[address] [address] Hematocrit (HCT) 27.1 % Low 40.0-52.0 [facility] Comment on above: Performed By: #### H EMOG, LACT3, BMP3 ####[address] [address] Hemoglobin mass conc (Bld) 8.8 g/dL Low 13.0-18.0 [facility] Comment on above: Performed By: #### H EMOG, LACT3, BMP3 ####[place] [address] MCH 26.8 pg Normal 26.0-34.0 [facility] Comment on above: Performed By: #### H EMOG, LACT3, BMP3 ####[address] [address] MCHC mass conc (RBC) 32.5 % Normal 32.0-36.0 [facility] Comment on above: Performed By: #### H EMOG, LACT3, BMP3 ####[address] [address] MCV 82.6 fL Normal 80.0-98.0 [facility] Comment on above: Performed By: #### H EMOG, LACT3, BMP3 ####[address] [address] Platelet mean volume (PMV) 6.9 fL Low 7.4-10.4 [facility] Comment on above: Performed By: #### H EMOG, LACT3, BMP3 ####[address] [place] [address] Platelets 829 10*3/uL High 140-440 [facility] Comment on above: Performed By: #### H EMOG, LACT3, BMP3 ####[address] [place] [address] WBC (Leukocytes) 14.6 10*3/uL High 3.6-10.7 [facility] Comment on above: Performed By: #### H EMOG, LACT3, BMP3 ####[address] [place] [address] Basic Metabolic Panelon 12-2 Calcium 7.9 mg/dL Low 8.4-10.2 [facility] Comment on above: Performed By: #### H EMOG, BMP3 ####[address] [place] [address] Glucose mass conc 163 mg/dL High 70-100 [facility] Comment on above: Performed By: #### H EMOG, BMP3 ####[address] [place] [address] Urea nitrogen 8 mg/dL Normal 7-20 [facility] Comment on above: Performed By: #### H EMOG, BMP3 ####[address] [place] [address] Anion gap 6 mmol/L Normal [facility] Comment on above: Performed By: #### H EMOG, BMP3 ####[address] [place] [address] CO2 22 mmol/L Normal 22-30 [facility] Comment on above: Performed By: #### H EMOG, BMP3 ####[address] [place] [address] Creatinine 0.69 mg/dL Normal 0.52-1.25 [facility] Comment on above: Performed By: #### H EMOG, BMP3 ####[address] [place] [address] eGFR (black) mL/min/{1.73_m2} Normal >60 [facility] Comment on above: Performed By: #### H EMOG, BMP3 ####[address] [place] [address] eGFR (non-black) mL/min/{1.73_m2} Normal >60 [facility] Comment on above: Result Comment: Sour ce- MDRD equation with creatinine calibration to IDMS(NKDEP)eGFR not recommended for drug dose adjustment Performed By: #### H DORIS BMP3 ####[address] [place] [address] Potassium molar conc 3.3 mmol/L Low 3.5-5.1 [facility] Comment on above: Performed By: #### H EMOG, BMP3 ####[address] [place] [address] Chloride 118 mmol/L High 98-107 [facility] Comment on above: Performed By: #### H EMOG, BMP3 ####[address] [place] [address] Sodium 145 mmol/L Normal 137-145 [facility] Comment on above: Performed By: #### H DORIS, BMP3 ####[place] [address] C-Reactive Proteinon 017 C reactive protein (CRP) 51.9 mg/L High 0.0-6.0 [facility] Comment on above: Result Comment: . Performed By: #### H DORIS LACT3, BMP3 ####[address] [place] [address] CR Hip w/ Pelvis 2 or 3 View s Lefton 05-22-2017 CR Hip w/ Pelvis 2 or 3 Views Left Patient Name: BAUTISTA RUFFIN Diagnostic Radiology Exam Date/Time 05/22/2017 19:52:21 EST Exam CR Hip w/ Pelvis 2 or 3 Views Left n Ordering Physician MD BALTAZAR, JEREMIAH Accession Number [id number] CPT4 Codes 55344 () Reason For Exam pain Report LEFT HIP CLINICAL INDICATION: Left hip pain A single AP view of the pelvis followed by AP and lateral views of the left hip were obtained. COMPARISON: Plain films of the sacrum dated 08/20/2012 FINDINGS: There is extensive heterotopic ossification surrounding the left hip. The left hip joint space is not well-defined and there is felt to be likely fusion of the left hip joint. This appearance is considerably worsened when compared to the study from 2012. No definite fracture or dislocation of the left hip is identified. No definite fracture of the bony pelvis is seen. There appears to be a shallow right acetabulum with degenerative changes of the right hip joint. 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 The left hip joint space is not well defined and there is felt to be likely fusion of the left hip joint. No obvious fracture is seen, however noncontrast CT of the pelvis may be helpful for additional evaluation. Report Dictated on Final Dictated: 05/22/2017 7:32 pm Dictating Physician: SARAH OTERO Signed Date and Time: 05/22/2017 7:34 pm Signed by: SARAH OTERO Transcribed Date and Time: 05/22/2017 7:32 Normal [facility] Hemogramon 05-22-2017 Erythrocyte distribution width Auto Ratio (RBC) 18.1 % High 11.5-14.5 [facility] Comment on above: Performed By: #### H DORIS BMP3 ####[address] [address] Erythrocytes (RBC) 3.53 10*6/uL Low 4.40-5.90 [facility] Comment on above: Performed By: #### H DORIS BMP3 ####[address] [address] Hematocrit (HCT) 29.1 % Low 40.0-52.0 [facility] Comment on above: Performed By: #### H DORIS BMP3 ####[address] [address] Hemoglobin mass conc (Bld) 9.6 g/dL Low 13.0-18.0 [facility] Comment on above: Performed By: #### H DORIS BMP3 ####[address] [address] MCH 27.2 pg Normal 26.0-34.0 [facility] Comment on above: Performed By: #### H DORIS BMP3 ####[employer] [address] [address] MCHC mass conc (RBC) 32.9 % Normal 32.0-36.0 [facility] Comment on above: Performed By: #### Xander GEORGE BMP3 ####[address] [address] MCV 82.5 fL Normal 80.0-98.0 [facility] Comment on above: Performed By: #### H DORIS BMP3 ####[place] [address] Platelet mean volume (PMV) 7.1 fL Low 7.4-10.4 [facility] Comment on above: Performed By: #### Xander GEORGE BMP3 ####[address] [address] Platelets 823 10*3/uL High 140-440 [facility] Comment on above: Result Comment: repe ated Performed By: #### Xander GEORGE BMP3 ####[address] [address] WBC (Leukocytes) 16.9 10*3/uL High 3.6-10.7 [facility] Comment on above: Performed By: #### Xander GEORGE BMP3 ####[place] [address] Sed Rateon 05-22-2017 Sed Rate 64 mm/h High 0-10 [facility] Comment on above: Performed By: #### Xander GEORGE LACT3, BMP3 ####[address] [address] Basic Metabolic Panelon 04-29 Calcium 7.6 mg/dL Low 8.4-10.2 [facility] Comment on above: Performed By: #### ARINA WINN HEMOG ####[place] [address] Glucose mass conc 140 mg/dL High 70-100 [facility] Comment on above: Performed By: #### B ARINA ZHANG HEMOG ####[place] [address] Urea nitrogen 6 mg/dL Low 7-20 [facility] Comment on above: Performed By: #### ARINA WINN, HEMOG ####[address] [place] [address] Anion gap 6 mmol/L Normal [facility] Comment on above: Performed By: #### ARINA WINN, HEMOG ####[address] [place] [address] CO2 20 mmol/L Low 22-30 [facility] Comment on above: Performed By: #### ARINA WINN, HEMOG ####[address] [place] [address] Creatinine 0.70 mg/dL Normal 0.52-1.25 [facility] Comment on above: Performed By: #### ARINA WINN HEMOG ####[address] [place] [address] eGFR (black) mL/min/{1.73_m2} Normal >60 [facility] Comment on above: Performed By: #### ARINA WINN HEMOG ####[address] [place] [address] eGFR (non-black) mL/min/{1.73_m2} Normal >60 [facility] Comment on above: Result Comment: Sour ce- MDRD equation with creatinine calibration to IDMS(NKDEP)eGFR not recommended for drug dose adjustment Performed By: #### ARINA WINN, HEMOG ####[address] [place] [address] Potassium molar conc 3.5 mmol/L Normal 3.5-5.1 [facility] Comment on above: Performed By: #### ARINA WINN, HEMOG ####[address] [place] [address] Chloride 110 mmol/L High 98-107 [facility] Comment on above: Performed By: #### ARINA WINN, HEMOG ####[address] [place] [address] Sodium 137 mmol/L Normal 137-145 [facility] Comment on above: Performed By: #### B MP3, VANCT, HEMOG ####[id number] CULTURE BLOODon 05-21-2017 CULTURE BLOOD Specimen Source Comment:[facility] Patient name: BAUTISTA RUFFIN.Madan.N.: [id number] : 1960 Age: 57 Sex: M Ord. Physician: TRINA MAYER Location: [address] [place] [address] Copy to: MORENO TRINA Adm. Date: 05/19/17 MICROBIOLOGYORDER#: [id number] COLLECTED: 05/21/17 16:15SOURCE: Blood (Right -wrist) RECEIVED: 05/21/17 16:50 BUSTER Stoll T S Sp ecimen Source Comment:BloodCULTURE BLOOD FINAL 05/26/17 17:0605/26/17No growth at 5 days. Normal [facility] Comment on above: Performed By: #### C /BLD ####[place] [address] CULTURE BLOOD Specimen Source Comment:[facility] Patient name: BAUTISTA RUFFIN.R.N.: [id number] : 1960 Age: 57 Sex: M Ord. Physician: TRINA MAYER Location: [address] [place] [address] Copy to: MORENO TRINA Adm. Date: 05/19/17 MICROBIOLOGYORDER#: [id number] COLLECTED: 05/21/17 15:00SOURCE: Blood (Left -antecub) RECEIVED: 05/21/17 15:36 BUSTER Stoll T S Sp ecimen Source Comment:BloodCULTURE BLOOD FINAL 05/26/17 17:0605/26/17No growth at 5 days. Normal [facility] Comment on above: Performed By: #### C /BLD ####[address] [place] [address] Hemogramon 05-21-2017 Erythrocyte distribution width Auto Ratio (RBC) 18.6 % High 11.5-14.5 [facility] Comment on above: Performed By: #### ARINA WINN, HEMOG ####[address] [place] [address] Erythrocytes (RBC) 3.22 10*6/uL Low 4.40-5.90 [facility] Comment on above: Performed By: #### ARINA WINN, HEMOG ####[employer] [address] [address] Hematocrit (HCT) 26.3 % Low 40.0-52.0 [facility] Comment on above: Performed By: #### ARINA WINN, HEMOG ####[address] [place] [address] Hemoglobin mass conc (Bld) 8.6 g/dL Low 13.0-18.0 [facility] Comment on above: Performed By: #### ARINA WINN, HEMOG ####[address] [place] [address] MCH 26.8 pg Normal 26.0-34.0 [facility] Comment on above: Performed By: #### ARINA WINN, HEMOG ####[address] [place] [address] MCHC mass conc (RBC) 32.9 % Normal 32.0-36.0 [facility] Comment on above: Performed By: #### ARINA WINN, HEMOG ####[employer] [address] [place] [address] MCV 81.6 fL Normal 80.0-98.0 [facility] Comment on above: Performed By: #### ARINA WINN, HEMOG ####[address] [place] [address] Platelet mean volume (PMV) 7.0 fL Low 7.4-10.4 [facility] Comment on above: Performed By: #### ARINA WINN, HEMOG ####[address] [place] [address] Platelets 736 10*3/uL High 140-440 [facility] Comment on above: Performed By: #### ARINA WINN, HEMOG ####[address] [place] [address] WBC (Leukocytes) 11.1 10*3/uL High 3.6-10.7 [facility] Comment on above: Performed By: #### ARINA WINN HEMOG ####[address] [place] [address] Vancomycin Troughon 05-21-20 17 Vancomycin Trough 25.8 ug/mL High 5.0-10.0 [facility] Comment on above: Result Comment: . Performed By: #### ARINA WINN, HEMOG ####[address] [place] [address] Basic Metabolic Panelon 12-2 Calcium 8.2 mg/dL Low 8.4-10.2 [facility] Comment on above: Performed By: #### H EMOSaravanan, LACT3, BMP3 ####[address] [place] [address] Glucose mass conc 92 mg/dL Normal 70-100 [facility] Comment on above: Performed By: #### H EMOG, LACT3, BMP3 ####[address] [place] [address] Urea nitrogen 8 mg/dL Normal 7-20 [facility] Comment on above: Performed By: #### H EMOG, LACT3, BMP3 ####[address] [place] [address] Anion gap 7 mmol/L Normal [facility] Comment on above: Performed By: #### H EMOG, LACT3, BMP3 ####[address] [place] [address] CO2 19 mmol/L Low 22-30 [facility] Comment on above: Performed By: #### H EMOG, LACT3, BMP3 ####[address] [place] [address] Creatinine 0.78 mg/dL Normal 0.52-1.25 [facility] Comment on above: Performed By: #### H EMOG, LACT3, BMP3 ####[address] [place] [address] eGFR (black) mL/min/{1.73_m2} Normal >60 [facility] Comment on above: Performed By: #### H EMOSaravanan, LACT3, BMP3 ####[address] [place] [address] eGFR (non-black) mL/min/{1.73_m2} Normal >60 [facility] Comment on above: Result Comment: Sour ce- MDRD equation with creatinine calibration to IDMS(NKDEP)eGFR not recommended for drug dose adjustment Performed By: #### H EMOSaravanan, LACT3, BMP3 ####[address] [place] [address] Potassium molar conc 3.6 mmol/L Normal 3.5-5.1 [facility] Comment on above: Performed By: #### H EMOSaravanan, LACT3, BMP3 ####[address] [place] [address] Chloride 113 mmol/L High 98-107 [facility] Comment on above: Performed By: #### H EMOG, LACT3, BMP3 ####[address] [place] [address] Sodium 139 mmol/L Normal 137-145 [facility] Comment on above: Performed By: #### H EMOG, LACT3, BMP3 ####[address] [place] [address] Hemogramon 05-20-2017 Erythrocyte distribution width Auto Ratio (RBC) 18.7 % High 11.5-14.5 [facility] Comment on above: Performed By: #### H EMOG, LACT3, BMP3 ####[address] [address] Erythrocytes (RBC) 3.38 10*6/uL Low 4.40-5.90 [facility] Comment on above: Performed By: #### H EMOG, LACT3, BMP3 ####[address] [address] Hematocrit (HCT) 27.7 % Low 40.0-52.0 [facility] Comment on above: Performed By: #### H EMOG, LACT3, BMP3 ####[address] [address] Hemoglobin mass conc (Bld) 9.2 g/dL Low 13.0-18.0 [facility] Comment on above: Performed By: #### H EMOG, LACT3, BMP3 ####[address] [address] MCH 27.3 pg Normal 26.0-34.0 [facility] Comment on above: Performed By: #### H EMOG, LACT3, BMP3 ####[address] [address] MCHC mass conc (RBC) 33.3 % Normal 32.0-36.0 [facility] Comment on above: Performed By: #### H EMOG, LACT3, BMP3 ####[address] [address] MCV 82.1 fL Normal 80.0-98.0 [facility] Comment on above: Performed By: #### H EMOG, LACT3, BMP3 ####[address] [address] Platelet mean volume (PMV) 7.0 fL Low 7.4-10.4 [facility] Comment on above: Performed By: #### H EMOG, LACT3, BMP3 ####[address] [address] Platelets 749 10*3/uL High 140-440 [facility] Comment on above: Performed By: #### H EMOG, LACT3, BMP3 ####[address] [place] [address] WBC (Leukocytes) 15.6 10*3/uL High 3.6-10.7 [facility] Comment on above: Performed By: #### H EMOG, LACT3, BMP3 ####[address] [place] [address] Lactic Acidon 05-20-2017 Lactate 0.6 mmol/L Low 0.7-2.0 [facility] Comment on above: Performed By: #### H EMOG, LACT3, BMP3 ####[address] [place] [address] VANC TROUGHon 04-08-2017 VANC TROUGH 14.4 MCG/ML Low 15.0-20.0 [facility] Comment on above: Performed By: #### L 520.79480 ####[facility] [id number] [place], [place] [address]It# [phone] BMPon 04-03-2017 Anion gap 9 mmol/L Normal 5-16 [facility] Comment on above: Performed By: #### L 500.03555, L500.64853, L520.87333 ####[facility] [id number] [place], [place] [address]Ev# [phone] BUN/Creatinine Ratio 23 mg/mg Normal 15-24 [facility] Comment on above: Performed By: #### L 500.45005, L500.21502, L520.17190 ####[facility] [id number] [place], [place] [address]Lp# [phone] Calcium 8.6 mg/dL Normal 8.5-10.1 [facility] Comment on above: Performed By: #### L 500.40054, L500.96733, L520.69366 ####[facility] [id number] [place], [place] [address]Jw# [phone] Chloride 103 mmol/L Normal 98-107 [facility] Comment on above: Performed By: #### L 500.38342, L500.51125, L520.83594 ####[facility] [id number] [place], [place] [address]Yx# [phone] CO2 26 mmol/L Normal 21-32 [facility] Comment on above: Performed By: #### L 500.72165, L500.87924, L520.71977 ####[facility] [id number] [place], [place] [address]Mv# [phone] Creatinine 1.370 mg/dL High 0.670-1.17 0 [facility] Comment on above: Result Comment: Noni ents receiving either N-Acetylcysteine (NAC) orMetamizole prior to venipuncture, may have falsely depressedresults. Performed By: #### L 500.71510, L500.18384, L520.31725 ####[facility] [id number] [place], [place] [address]Ds# [phone] Glucose mass conc 95 mg/dL Normal 70-100 [facility] Comment on above: Result Comment: 70-1 00-Normal Fasting; [phone] Fasting; greaterthan 126 on more than one result-Diabetes. ADA guidelines Performed By: #### L 500.23331, L500.46827, L520.11801 ####[facility] [id number] [place], [place] [address]No# [phone] Potassium molar conc 4.5 mmol/L Normal 3.5-5.1 [facility] Comment on above: Performed By: #### L 500.75187, L500.50582, L520.04626 ####[facility] [id number] [place], [place] [address]Ah# [phone] Sodium 138 mmol/L Normal 136-145 [facility] Comment on above: Performed By: #### L 500.08431, L500.96159, L520.59790 ####[facility] [id number] [place], [place] [address]Xw# [phone] Urea nitrogen 31 mg/dL High 7-26 [facility] Comment on above: Performed By: #### L 500.95636, L500.08697, L520.10765 ####[facility] [id number] [place], [place] [address]Hs# [phone] GFR ESTon 04-03-2017 IF AMER Greater than 60 Normal [facility] Comment on above: Performed By: #### L 500.92322, L500.06977, L520.29507 ####[facility] [id number] [place], [place] [address]Ea# [phone] IF non-AFR AMER 54 ML/MIN Normal [facility] Comment on above: Performed By: #### L 500.67352, L500.66646, L520.51550 ####[facility] [id number] [place], [place] [address]Zr# [phone] [facility] 04-03-2017 Hematocrit (HCT) 32.7 % Low 41.0-53.0 [facility] Comment on above: Performed By: #### L 200.80383 ####[facility] [id number] [place] [address]Sz# [phone] Hemoglobin mass conc (Bld) 10.3 g/dL Low 13.5-17.5 [facility] Comment on above: Performed By: #### L 200.43546 ####[facility] [id number] [place], [place] [address]Uy# [phone] VANC TROUGHon 04-03-2017 VANC TROUGH 14.7 MCG/ML Low 15.0-20.0 [facility] Comment on above: Performed By: #### L 500.95192, L500.37691, L520.44210 ####[facility] [id number] [place], [place] [address]Nc# [phone] [facility] 03-29-2017 Hematocrit (HCT) 30.1 % Low 41.0-53.0 [facility] Comment on above: Performed By: #### L 200.70620 ####[facility] [id number] [place] [address]Id# [phone] Hemoglobin mass conc (Bld) 9.4 g/dL Low 13.5-17.5 [facility] Comment on above: Performed By: #### L 200.81463 ####[facility] [id number] [place], [place] [address]Ms# [phone] VANC TROUGHon 03-28-2017 VANC TROUGH 20.7 MCG/ML Critically high 15.0-20.0 [facility] Comment on above: Result Comment: Crit ical Result(s) Called at: 22:55:07 on 03/27/2017 by:Vanessa Bianchi to and read back by: Jami LR AT [facility] Performed By: #### L 520.70487 ####[facility] [id number] [place], [place] [address]Qd# [phone] VANC TROUGHon 03-23-2017 VANC TROUGH 25.3 MCG/ML Critically high 15.0-20.0 [facility] Comment on above: Result Comment: Crit ical Result(s) Called at: 12:22:05 on 03/23/2017 by:Piedad Thomas to and read back by: BLANCHE HILLMAN RN Performed By: #### L 520.66272 ####[facility] [id number] [place], [place] [address]Ta# [phone] Influenza virus A and B and SARS-CoV-2 (COVID-19) Ag panel - Upper respiratory specim SARS-CoV-2 (COVID-19) RNA ZEKE+probe Ql (Resp) [facility] Work Phone: Vital Signs Date Time Vital Sign Value Performing Clinician Faci lity 11-01-2024 18:00-0400 Diastolic blood pressure 84 mm[Hg] [facility] 11-01-2024 18:00-0400 Heart rate 82 /min [facility] 11-01-2024 18:00-0400 Respiratory rate 16 /min [facility] 11-01-2024 18:00-0400 SaO2% (BldA) [Mass fraction] 96 % [facility] 11-01-2024 18:00-0400 Systolic blood pressure 132 mm[Hg] [facility] 11-01-2024 16:30-0400 Body temperature 98.3 [degF] [facility] 11-01-2024 14:11-0400 Body height 172.72 cm [facility] 11-01-2024 14:11-0400 Body mass index (BMI) [Ratio] 27.6 kg/m2 [facility] 11-01-2024 14:11-0400 Body weight 82.3 kg [facility] 09-12-2024 13:04-0400 Body temperature 97.8 [degF] [facility] 09-12-2024 13:04-0400 Diastolic blood pressure 85 mm[Hg] [facility] 09-12-2024 13:04-0400 Heart rate 75 /min [facility] 09-12-2024 13:04-0400 Respiratory rate 16 /min [facility] 09-12-2024 13:04-0400 SaO2% (BldA) [Mass fraction] 97 % [facility] 09-12-2024 13:04-0400 Systolic blood pressure 149 mm[Hg] [facility] 09-11-2024 15:37-0400 Body height 175.01 cm [facility] 09-11-2024 15:37-0400 Body mass index (BMI) [Ratio] 27.8 kg/m2 [facility] 09-11-2024 15:37-0400 Body weight 85.41 kg [facility] 07-14-2024 12:00-0500 Body temperature 97.6 [degF] [facility] 07-14-2024 12:00-0500 Diastolic blood pressure 86 mm[Hg] [facility] 07-14-2024 12:00-0500 Heart rate 82 /min [facility] 07-14-2024 12:00-0500 Respiratory rate 17 /min [facility] 07-14-2024 12:00-0500 SaO2% (BldA) [Mass fraction] 94 % [facility] 07-14-2024 12:00-0500 Systolic blood pressure 139 mm[Hg] [facility] 07-14-2024 07:06-0500 Body mass index (BMI) [Ratio] 28.3 kg/m2 [facility] 07-14-2024 07:06-0500 Body weight 87.2 kg [facility] 07-13-2024 07:00-0500 Diastolic blood pressure 101 mm[Hg] [facility] 07-13-2024 07:00-0500 Heart rate 83 /min [facility] 07-13-2024 07:00-0500 Respiratory rate 18 /min [facility] 07-13-2024 07:00-0500 SaO2% (BldA) [Mass fraction] 99 % [facility] 07-13-2024 07:00-0500 Systolic blood pressure 176 mm[Hg] [facility] 07-13-2024 06:40-0500 Body temperature 97.8 [degF] [facility] 07-13-2024 02:28-0500 Body mass index (BMI) [Ratio] 26.6 kg/m2 [facility] 07-13-2024 02:28-0500 Body weight 81.8 kg [facility] 06-19-2024 15:07-0500 Body temperature 98.3 [degF] [facility] 06-19-2024 15:07-0500 Diastolic blood pressure 92 mm[Hg] [facility] 06-19-2024 15:07-0500 Heart rate 88 /min [facility] 06-19-2024 15:07-0500 Respiratory rate 18 /min [facility] 06-19-2024 15:07-0500 SaO2% (BldA) [Mass fraction] 98 % [facility] 06-19-2024 15:07-0500 Systolic blood pressure 138 mm[Hg] [facility] 06-19-2024 05:37-0500 Body mass index (BMI) [Ratio] 25.4 kg/m2 [facility] 06-19-2024 05:37-0500 Body weight 78.1 kg [facility] 06-14-2024 21:55-0500 Body temperature 98.1 [degF] [facility] 06-14-2024 21:55-0500 Diastolic blood pressure 76 mm[Hg] [facility] 06-14-2024 21:55-0500 Heart rate 90 /min [facility] 06-14-2024 21:55-0500 Respiratory rate 16 /min [facility] 06-14-2024 21:55-0500 SaO2% (BldA) [Mass fraction] 98 % [facility] 06-14-2024 21:55-0500 Systolic blood pressure 155 mm[Hg] [facility] 06-12-2024 14:34-0500 Body weight 95.5 kg [facility] 06-11-2024 23:14-0500 Body mass index (BMI) [Ratio] 31.1 kg/m2 [facility] 10-09-2023 05:00-0400 Body temperature 97.5 [degF] [facility] 10-09-2023 05:00-0400 Diastolic blood pressure 91 mm[Hg] [facility] 10-09-2023 05:00-0400 Heart rate 95 /min [facility] 10-09-2023 05:00-0400 Respiratory rate 16 /min [facility] 10-09-2023 05:00-0400 SaO2% (BldA) [Mass fraction] 97 % [facility] 10-09-2023 05:00-0400 Systolic blood pressure 128 mm[Hg] [facility] 10-09-2023 01:12-0400 Body height 175.26 cm [facility] 06-07-2022 00:00-0500 Diastolic blood pressure 78 mm[Hg] [facility] Work Phone: 06-07-2022 00:00-0500 Heart rate 81 /min [facility] Work Phone: 06-07-2022 00:00-0500 Respiratory rate 14 /min [facility] Work Phone: 06-07-2022 00:00-0500 SaO2% (BldA) [Mass fraction] 97 % [facility] Work Phone: 06-07-2022 00:00-0500 Systolic blood pressure 119 mm[Hg] [facility] Work Phone: 06-06-2022 16:16-0500 Body height 170.18 cm [facility] Work Phone: 06-06-2022 16:16-0500 Body mass index (BMI) [Ratio] 26.6 kg/m2 [facility] Work Phone: 06-06-2022 16:16-0500 Body temperature 97.5 [degF] [facility] Work Phone: 06-06-2022 16:16-0500 Body weight 77.3 kg [facility] Work Phone: 05-22-2022 21:09-0500 Diastolic blood pressure 93 mm[Hg] [facility] Work Phone: 05-22-2022 21:09-0500 Heart rate 121 /min [facility] Work Phone: 05-22-2022 21:09-0500 Respiratory rate 30 /min [facility] Work Phone: 05-22-2022 21:09-0500 SaO2% (BldA) [Mass fraction] 96 % [facility] Work Phone: 05-22-2022 21:09-0500 Systolic blood pressure 143 mm[Hg] [facility] Work Phone: 05-22-2022 20:08-0500 Body temperature 97.6 [degF] [facility] Work Phone: 05-22-2022 16:40-0500 Body height 175.26 cm [facility] Work Phone: 05-22-2022 16:40-0500 Body mass index (BMI) [Ratio] 26.2 kg/m2 [facility] Work Phone: 05-22-2022 16:40-0500 Body weight 80.5 kg [facility] Work Phone: 09-09-2021 17:43-0400 Diastolic blood pressure 100 mm[Hg] [facility] Work Phone: 09-09-2021 17:43-0400 Heart rate 70 /min [facility] Work Phone: 09-09-2021 17:43-0400 Respiratory rate 16 /min [facility] Work Phone: 09-09-2021 17:43-0400 SaO2% (BldA) [Mass fraction] 97 % [facility] Work Phone: 09-09-2021 17:43-0400 Systolic blood pressure 122 mm[Hg] [facility] Work Phone: 09-09-2021 15:23-0400 Body temperature 97.6 [degF] [facility] Work Phone: 09-09-2021 15:20-0400 Body height 172.72 cm [facility] Work Phone: 09-09-2021 15:20-0400 Body mass index (BMI) [Ratio] 26.6 kg/m2 [facility] Work Phone: 09-09-2021 15:20-0400 Body weight 79.6 kg [facility] Work Phone: 06-29-2021 10:00-0500 Heart rate 112 /min [facility] Work Phone: 06-29-2021 08:38-0500 Body temperature 98 [degF] [facility] Work Phone: 06-29-2021 08:38-0500 Diastolic blood pressure 93 mm[Hg] [facility] Work Phone: 06-29-2021 08:38-0500 Respiratory rate 16 /min [facility] Work Phone: 06-29-2021 08:38-0500 SaO2% (BldA) [Mass fraction] 98 % [facility] Work Phone: 06-29-2021 08:38-0500 Systolic blood pressure 122 mm[Hg] [facility] Work Phone: 06-29-2021 05:00-0500 Body weight 74 kg [facility] Work Phone: 06-28-2021 02:52-0500 Body mass index (BMI) [Ratio] 23.9 kg/m2 [facility] Work Phone: Encounters Encounter Date Encounter Type Care Provider Facility Start: 11-01-2024 End: 11-01-2024 [facility] Start: 09-11-2024 End: 09-12-2024 [facility] Start: 07-14-2024 End: 07-14-2024 Emergency department patient visit Dr. Rico Moore DO -Emergency Department Work Phone: Start: 07-13-2024 End: 07-13-2024 Emergency department patient visit Richie Borden DO -Emergency Department Work Phone: Start: 06-19-2024 Non-patient / Non-visit Dr. Darian Arceo MD -[facility] Work Phone: Start: 06-18-2024 Non-patient / Non-visit Dr. Darian Arceo MD -[facility] Work Phone: Start: 06-17-2024 Non-patient / Non-visit Dr. Darian Arceo MD -[facility] Work Phone: Start: 06-16-2024 ambulatory Ronak Rueda ty:[facility] Start: 06-16-2024 End: 06-19-2024 Evaluation and management of inpatient Dr. Darian Arceo MD -[facility] Work Phone: Start: 06-14-2024 Non-patient / Non-visit Dr. Darian Arceo MD -[facility] Work Phone: Start: 06-13-2024 Non-patient / Non-visit Dr. Darian Arceo MD -[facility] Work Phone: Start: 06-12-2024 Non-patient / Non-visit Dr. Darian Arceo MD -[facility] Work Phone: Start: 06-11-2024 ambulatory Ronak Rueda ty:[facility] Start: 06-11-2024 End: 06-14-2024 Evaluation and management of inpatient Dr. Darian Arceo MD -[facility] Work Phone: Start: 05-06-2024 End: 05-10-2024 Telephone encounter Hetal Gallegos MD Work Phone: [facility] Start: 05-03-2024 Emergency department patient visit JAMEY HUYNH Facility:[facility] Start: 05-03-2024 End: 05-03-2024 Emergency department patient visit Hema ChamberlainIvis Facility:[facility] Start: 10-09-2023 End: 10-09-2023 Emergency department patient visit [facility] Department Work Phone: Start: 06-06-2022 End: 06-07-2022 Emergency department patient visit [facility] Start: 05-22-2022 End: 05-22-2022 Emergency department patient visit [facility] Start: 09-09-2021 End: 09-09-2021 Emergency department patient visit [facility] Start: 06-29-2021 Non-patient / Non-visit [facility] Start: 06-29-2021 Non-patient / Non-visit [facility] Start: 06-28-2021 Non-patient / Non-visit [facility] Start: 06-28-2021 End: 06-29-2021 Evaluation and management of inpatient [facility]-Progressive Care Unit Start: 05-19-2017 Evaluation and management of inpatient UNKNOWN PROVIDER [facility] Start: 04-08-2017 [facility] Facility:[facility] Start: 04-03-2017 Ambulatory [employer] Facility:[facility] Start: 03-29-2017 [facility] Start: 03-27-2017 [facility] Start: 03-23-2017 [facility] Procedures Date Procedure Procedure Detail Performing Clinician Start: 11-01-2024 Urnls dip stick/tabl et reagent auto microscopy [facility] Start: 09-11-2024 Urnls dip stick/tabl et reagent auto microscopy [facility] Start: 09-11-2024 CT of pelvis with contrast [facility] Start: 09-11-2024 Estimated creatinine clearance [facility] Start: 09-11-2024 Blood culture [facility] Start: 09-11-2024 Gram stain microscopy [facility] Start: 09-11-2024 End: 09-11-2024 Microbial culture, routine [facility] Start: 09-11-2024 [facility] Start: 07-14-2024 Urnls dip stick/tabl et reagent auto microscopy [facility] Start: 07-14-2024 Estimated creatinine clearance [facility] Start: 07-14-2024 Measurement of renal function [facility] Comment on above: GFR Calc Start: 07-14-2024 Plain chest X-ray [facility] Start: 07-13-2024 SARS-CoV-2, Influenz a & RSV (PCR) [facility] Start: 07-13-2024 CT angiography of ch est with contrast [facility] Start: 07-13-2024 Plain chest X-ray [facility] Start: 07-13-2024 D-dimer assay, quantitative [facility] Comment on above: D-Dimer ELEVATED (>0 .49): Additional studies and clinicalassessments are indicated to conclude diagnosis of:Deep Vein Thrombosis (DVT) or Pulmonary Embolism (PE)CRITICAL VALUE CALLED TO [facility]07/13/24 0417 Graham Osorio.RESULTS READ BACK BY SAME. Start: 07-13-2024 Estimated creatinine clearance [facility] Start: 07-13-2024 Measurement of renal function [facility] Comment on above: GFR Calc Start: 06-16-2024 [facility] Start: 06-16-2024 CT of head without contrast [facility] Start: 06-16-2024 [facility] culture [facility] Start: 06-16-2024 Urine culture [facility] Start: 06-11-2024 CT of chest without contrast [facility] Start: 06-11-2024 Plain chest X-ray [facility] Start: 06-11-2024 Plain x-ray of pelvi s and lower extremity [facility] Start: 06-11-2024 Blood culture [facility] Start: 06-11-2024 Legionella pneumophi la antigen assay [facility] Start: 06-11-2024 SARS-CoV-2, Influenz a & RSV (PCR) [facility] Start: 06-11-2024 Streptococcus pneumo niae antigen assay [facility] Start: 06-11-2024 Urine culture [facility] Start: 10-09-2023 Plain chest X-ray Start: 06-06-2022 Plain chest X-ray Start: 05-22-2022 CT of abdomen and pe lvis without contrast Start: 05-22-2022 Plain chest X-ray Start: 06-28-2021 History of placement of stent for coronary artery disease History of coronary artery stent placement Dr. Darian Arceo MD Comment on above: AXN-CYT-Doeh LAD w/ 3.0 a 18 mm [employer] [place] MR Stent 06/28/21 Start: 06-28-2021 Plain chest X-ray [facility] H/O: colostomy Colostomy in place [facility] SARS-CoV-2 & FLU Ant igen (Rapid) Plan of Treatment Date Care Activity Detail Author Start: 05-03-2027 Diabetes Screening Diabetes Screenin saravanan [facility] Start: 11-01-2024 [facility] Start: 11-01-2024 [facility] Start: 11-01-2024 Bacteria identified in Urine by Culture Urine Culture [facility] Start: 09-11-2024 End: 09-11-2024 [facility] Start: 09-11-2024 Bacteria identified in Blood by Culture Blood Culture [facility] Start: 09-11-2024 Microbial culture, routine Wound Culture [facility] Start: 09-11-2024 Microscopic observat ion [Identifier] in Unspecified specimen by Gram stain [facility] Start: 09-11-2024 Urine culture Urine Culture [facility] Start: 07-14-2024 [facility] Start: 07-13-2024 [facility] Start: 06-19-2024 Patient discharge [facility] Start: 06-18-2024 Referral to service [facility] Start: 06-18-2024 Wound care [facility] Start: 06-17-2024 Consultation for treatment [facility] Start: 06-16-2024 Following clinical pathway protocol [facility] Start: 06-16-2024 Assessment of risk o f venous thromboembolism [facility] Start: 06-16-2024 Incentive spirometry [facility] Start: 06-16-2024 Insertion of cathete r into peripheral vein [facility] Start: 06-16-2024 Measuring intake and output [facility] Start: 06-16-2024 Providing care accor ding to standard [facility] Start: 06-16-2024 Referral to occupati onal therapist [facility] Start: 06-16-2024 Referral to service [facility] Start: 06-16-2024 Tobacco use cessatio n education [facility] Start: 06-16-2024 [facility] Start: 06-16-2024 Admission procedure [facility] Start: 06-16-2024 Patient referral to dietitian [facility] Start: 06-14-2024 Referral to service [facility] Start: 06-14-2024 Consultation [facility] Start: 06-14-2024 Patient discharge [facility] Start: 06-13-2024 Care planning and pr oblem solving actions [facility] Start: 06-12-2024 Wound care [facility] Start: 06-12-2024 Referral to service [facility] Start: 06-12-2024 Referral to occupati onal therapist [facility] Start: 06-11-2024 Consultation for treatment [facility] Start: 06-11-2024 [facility] Start: 06-11-2024 Following clinical pathway protocol [facility] Start: 06-11-2024 Admission procedure [facility] Start: 06-11-2024 Patient referral to dietitian [facility] Start: 06-03-2024 End: 06-03-2024 Patient encounter procedure 06/03/2024 1:30 PM EST Office Visit [facility] [address] [place] [address] Hetal Gallegos MD [address] [address] er f/u R hip/pt will call to get referral [facility] Comment on above: er f/u R hip/pt will call to get referral Start: 01-28-2024 Covid-19 Vaccine ( season) Covid-19 Vaccine ( season) [facility] Start: 01-28-2024 Influenza vaccination Influenz a Vaccine (#1) [facility] Start: 10-09-2023 [facility] Start: 10-09-2023 [facility] Start: 06-06-2022 [facility] Work Phone: Start: 05-22-2022 [facility] Work Phone: Start: 2021 RSV Vaccine (1 - Ris k 60-74 years 1-dose series) RSV Vaccine (1 - Risk 60-74 years 1-dose series) [facility] Start: 02-29-2016 Prostate specific an tigen measurement Prostate Cancer Screening Discussion [facility] Start: 2011 Shingrix Vaccine (1 of 2) Blanco grix Vaccine (1 of 2) [facility] Start: 2006 Screening for malign ant neoplasm of colon [facility] Start: 02-29-1996 Lipid panel Lipid Screening [facility] Start: 02-29-1980 Urine microalbumin profile DTaP,Tdap,Td Vaccine (1 - Tdap) [facility] Start: 1979 Anxiety Screening Anxiety Screening [facility] Start: 1979 Depression Screening Depression Scre ening [facility] Start: 1979 Hepatitis C screening Hepatitis C Sc reening [facility] Start: 1979 HIV screening HIV Screening [facility] Bacteria identified in Urine by Culture Urine Culture [facility] Work Phone: Patient Education [facility] Work Phone: Patient referral [facility] Work Phone: Urine culture [facility] Immunizations Immunization Date Immunization Notes Care Provider Fa cility 03-30-2023 influenza virus vaccine, unspecified formulation Hetal Gallegos MD Work Phone: [facility] 03-03-2021 Covid (Pfizer) [facility] 03-03-2021 Influenza virus vaccine [facility] 07-24-2020 Covid (Pfizer) [facility] 07-07-2020 Covid (Pfizer) [facility] 02-26-2018 Influenza virus vaccine [facility] 02-27-2017 Influenza virus vaccine [facility] 02-23-2016 Influenza virus vaccine [facility] 03-17-2015 influenza, injectabl e, quadrivalent, preservative free [facility] 03-17-2015 influenza, seasonal, injectable [facility] Work Phone: 04-29-2013 Influenza virus vaccine [facility] 2012 Pneumococcal Vaccine [facility] Work Phone: 2012 pneumococcal vaccine , unspecified formulation [facility] Payers Date Payer Category Payer Medicare [id number] 2024 Self-pay [id number] 2024 Unknown [id number] 2016 Medicare [id number] 2015 Unknown [id number] Medicare [id number] Private Health Insurance [facility] [id number] Unknown Unknown [id number] 2.16.8 [id number] Unknown [id number] 2.16.8 [id number] Unknown [id number] 2.16.8 [id number] Unknown [id number] 2.16.8 [id number] Unknown [id number] 2.16.8 [id number] Unknown [id number] 2.16.8 [id number] Unknown [id number] 2.16.8 [id number] Unknown [id number] 2.16.8 [id number] Unknown [id number] 2.16.8 [id number] Unknown [id number] 2.16.8 [id number] Unknown [id number] 2.16.8 [id number] Unknown [id number] 2.16.8 [id number] Unknown [id number] 2.16.8 [id number] Unknown [id number] 2.16.8 [id number] Unknown [id number] 2.16.8 [id number] Social History Date Type Detail Facility Start: 09-09-2021 End: 10-09-2023 Tobacco smoking status NHIS Unknown if ever smoked [facility] Start: 06-27-2021 Heavy [facility] Start: 01-19-2019 None [facility] Start: 01-19-2019 Spouse/ Signif icant Other [facility] Start: 06-27-2021 Cigarettes [facility] Start: 1960 Sex Assigned At Male [facility] Start: 01-21-2016 Tobacco smoking stat us AZIS Smokes tobacco daily [facility] Start: 05-03-2024 Alcoholic beverage intake Current non-drinker of alcohol (finding) [facility] Start: 05-03-2024 End: 05-04-2024 History of Social function [facility] Start: 05-03-2024 End: 05-04-2024 Tobacco use panel [facility] National Score (1-100), lower number is lower risk 80 [facility] Start: 1960 Sex assigned at Not on file [facility] Start: 09-11-2024 End: 11-01-2024 Tobacco smoking status NHIS Ex-smoker (finding) [facility] Start: 09-12-2024 Sex Male (finding) [facility] Medical Equipment Procedure Code Equipment Code Equipment Origin al Text Equipment Identifier Dates ([id number]) Drug-eluting coronary artery stent, bioabsorbable-polyme r-coated ()[id number] [facility] Start: 06-29-2021 Goals Date Patient Goal Desired Activity /State Functional Status Date Assessment Result Facility 06-19-2024 Functional status Bedrest [facility] Work Phone: 06-14-2024 Functional status Bedrest [facility] Work Phone: 06-29-2021 Functional status Activity Abili ty With [facility] Work Phone: Mental Status Date Assessment Result Facility 07-14-2024 Cognitive function Level Of Cons ciousness Awake;Alert;Appropriate;Follow s Commands [facility] Work Phone: 07-13-2024 Cognitive function Voice/Name [facility] Work Phone: 06-19-2024 Cognitive function Voice/Name [facility] Work Phone: 06-14-2024 Cognitive function Voice/Name [facility] Work Phone: 10-09-2023 Cognitive function Level Of Cons ciousness Awake;Alert;Appropriate [facility] Work Phone: 06-06-2022 Cognitive function Awake;Alert;Disoriente d [facility] Work Phone: 06-29-2021 Cognitive function Voice/Name [facility] Work Phone: 06-28-2021 Cognitive function Patient Orien tation Person;Place;Time [facility] Work Phone: Clinical Notes 05-06-2024 to 09-12-2024 Note Date & Type Note Facility 09-12-2024 Discharge summary [facility] 09-11-2024 Radiology Diagnostic study note [facility] Imaging Services [address], [place] [id number] Pelvis WITH IV Contrast MR#: [id number] Acct: [id number] Name: BAUTISTA RUFFIN Rep #: [id number] : 1960 M 64 From: Maxwell Figueroa MD PCP: [facility] Status: REG ER Study:Pelvis WITH IV Contrast Date of Exam: 09/11/24 Exam# [id number] Ordering Dr: Alex Ellis KNOT SAW OPERATOR-C PROCEDURE: PELVIS WITH IV CONTRAST REASON FOR EXAM: SACRAL WOUNDS . TECHNIQUE: Pelvis CT with intravenous contrast. One or more dose reduction techniques were used (e.g., Automated exposure control, adjustment of the mA and/or kV according to patient size, use of iterative reconstruction technique). COMPARISON: None. FINDINGS: Bladder: Suprapubic catheter within the collapsed bladder. Reproductive Organs: Unremarkable. 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 Appendix: Not visualized Lymph nodes: Unremarkable. Vasculature: Major vascular structures are unremarkable. Peritoneum / Retroperitoneum: No ascites. No free air. Bones: Dysplasia of both hip joints. Bilateral decubitus ulcers extending to the posterior aspect of the ischium bilaterally with destruction of the posterior ischium consistent with chronic ulcers with osteomyelitis. Large decubitus ulcer posterior to the sacrum with destruction and/or surgical resection of the distal sacrum and coccyx and exposure of the distal sacrum. Some sclerosis of the distal sacrum consistent with chronic osteomyelitis. CT/Pelvis WITH IV Contrast IMPRESSION: Large sacral decubitus ulcers with chronic osteomyelitis of the sacrum and ischium bilaterally but no abscess. Reading Location: [facility] CC: MARCOS Sheppard; [facility] ~ Terrazzo Grinder: Signed [facility] 09-11-2024 Discharge summary Note Date/Time September 12, 2024 11:45am [facility] Medical Records Department [address] [place] [address] Emergency Department Summary 09/11/24 MR#: [id number] Acct: [id number] Name: BAUTISTA RUFFIN Rep #:[id number] : 1960 64 From: Alex RODRÍGUEZ PCP: [facility] Hospital Status:[facility] ER Location: ED ADDENDUM by Dr. Alma Rosa Pedroza DO on 09/12/24 at 1144 Care of patient turned over to mt awaiting transfer to tertiary care center for definitive care at [facility]. Patient remained hemodynamically stable. [facility] will use there transfer team to transfer patient I am told at 1300 hrs. 09/12/24 1144<Electronically signed by Alma Rosa Pedroza DO> Cosigner Signature (if applicable): 09/12/24 0012 <Electronically signed by Adwoa NARVAEZ> cc: [facility] ~* Signed HPI <MARCOS Holliday - Last Filed: 09/11/24 21:48> History of Present Illness Chief Complaint: Cellulitis Narrative Narrative: Patient is a 64-year-old male that is a paraplegic, this is secondary to transverse myelitis, patient also has history of wounds, colostomy, catheter, anxiety who presents to the [facility] for wound evaluation. Patient does live at home, patient's as well as some home care nursing does take care of him. The home care nurses noticed that there was a foul-smelling odor from multiple wounds on his sacrum, buttocks area, they referred him to the [facility]. Patient denies any fever or chills. Patient does not state he has any pain however he has no feeling. [facility] <MARCOS Holliday - Last Filed: 09/11/24 21:48> [facility] Medical History Sacral decubitus ulcer, stage III Atherosclerotic heart disease of teller coronary artery without angina pectoris Depression Chronic indwelling L[place] catheter Heavy alcohol use Anxiety and depression Acute paralytic poliomyelitis, wild virus, indigenous Osteomyelitis of right femur Transverse myelitis Neurogenic bladder Benign essential hypertension Home Medications ?Medication ?Instructions ?Recorded ?Last Taken ?Type baclofen 20 mg tablet 20 mg PO TID muscle spasms 1 06/27/21 History multivitamin with folic acid 400 1 tab PO LUNCH supple sia 02/26/13 06/27/21 History mcg tablet (Thera) gabapentin 100 mg capsule 300 mg PO TID neuropathy 06/27/21 History nortriptyline 50 mg capsule 100 mg PO QHS anxiety 08/09/1406/26/21 History ascorbic acid (vitamin C) 1,000 mg 1 g PO DAILY Check with primary 06/28/21 Unknown History tablet (Vitamin C) doctor cholecalciferol (vitamin D3) 50 50 mcg PO DAILY Check with primary 06/28/21 Unknown History mcg (2,000 unit) capsule (Vitamin doctor D3) docusate sodium 100 mg capsule 100 mg PO BID Check wit h primary 06/28/21 Unknown History doctor loratadine 10 mg capsule 10 mg PO DAILY Check with pr imary 06/28/21 Unknown History doctor venlafaxine 75 mg tablet 150 mg PO DAILY Check with p rimary 06/28/21 Unknown Hi story doctor apixaban 2.5 mg tablet (Eliquis) 2.5 mg PO BID 30 days #60 tabs 06/29/21 Unknown Rx Held on 09/11/24. Instructions: not confirmed aspirin 81 mg tablet,delayed 81 mg PO BREAKFAST heart health 30 06/29/21 Unknown Rx release days #30 tabs carvedilol 6.25 mg tablet 6.25 mg PO BID heart 30 days #60 06/29/21 Unknown Rx tabs ondansetron 4 mg disintegrating 4 mg PO Q8H PRN nausea and 06/06/22 Unknown Rx tablet vomiting #10 tabs rosuvastatin 10 mg tablet (Crestor) 20 mg PO DAILY Unknown History doxycycline monohydrate 100 mg 100 mg PO BID 10 days # 20 CAPSULES 07/13/24 Unknown Rx capsule buprenorphine 20 mcg/hour weekly 1 patch transdermal Q 7D 09/11/24 Unknown History transdermal patch Allergy/AdvReac Type Severity Reaction Status Date / Time No Known Allergies Allergy Verified 07/14/24 07:10 Family History Father CVA (cerebral vascular accident) Heart disease Myocardial infarction Surgical History History of coronary artery stent placement (06/28/21) History of femoral derotational osteotomy History of appendectomy History of suprapubic catheter Hx of colostomy Colostomy in place Social History household members: spouse Smoking Status: Former smoker alcohol intake: former substance use type: marijuana ROS <MARCOS Holliday - Last Filed: 09/11/24 21:48> ROS ED ROS Narrative Constitutional: Negative for fever, chills, weight loss, weakness Eyes: Negative for vision loss, vision change, double vision ENT: Negative for any sore throat, ear pain, congestion Cardiovascular: Negative for any chest pain, tightness, palpitations Respiratory: Negative for any cough, sputum production, hemoptysis, dyspnea, dyspnea on exertion, orthopnea Gastrointestinal: Negative for any abdominal pain, nausea, vomiting, diarrhea, constipation, blood in stool, blood in vomit : Negative for any urinary frequency, dysuria, retention, blood in urine Muscle skeletal: Negative for any neck pain, back pain Neurological: Negative for any headache, syncope, dizziness Skin: Negative for any rashes, itching, abrasions, lacerations. Positive for multiple wounds of the sacrum, buttock area Psychiatric: Negative for any depression, anxiety, stress, suicidal ideation, homicidal ideation Hematologic: Negative for any excessive bruising, easy bleeding EXAM <Alex SheppardMARCOS - Last Filed: 09/11/24 21:48> Physical Exam Narrative Exam Narrative: Vital signs reviewed. HEET: Head normocephalic atraumatic, TMs clear bilaterally. Posterior pharynx is clear, moist mucous membranes. Nares clear bilaterally. Neck: Supple with no lymphadenopathy or tenderness. No signs of meningismus. Cardiac: Regular rate and rhythm no murmurs gallops or rubs, equal peripheral pulses bilaterally. Respiratory: Lungs clear to auscultation bilaterally. No chest tenderness. Abdomen: Soft, nontender, nondistended. No abdominal bruit or pulsatile masses. No hepatosplenomegaly. Colostomy looks well-appearing, suprapubic catheter wasunremarkable. Extremities: No peripheral edema, no signs of gross trauma or deformity. Activefull range of motion of all extremities. Neuro: Cranial nerves II through XII intact, no focal neurological deficits. Skin: Clean dry and intact with no rash, purpura, petechiae, vesicles or pustules. Patient has stage II and stage III pressure wounds to the coccyx, buttocks. There are areas of yellow drainage, foul-smelling odor. There is some surrounding cellulitis. There is some tunneling. There is no bone exposure. Backs/flank: No CVA tenderness, no midline spinal tenderness, no deformity. Psych: Normal mood and affect. No SI, HI or acute psychosis. Const Vital Signs: 09/11/24 15:37 09/11/24 15:41 09/11/24 15:52 Temperature 97.9 F 97.9 F Temperature Source Oral Oral Pulse Rate 75 77 Respiratory Rate 18 18 Blood Pressure 121/80 H 121/80 H Blood Pressure Mean 93 93 Pulse Ox 97 97 97 Oxygen Delivery Method Room Air Room Air Room Air 09/11/24 16:41 09/11/24 17:35 09/11/24 17:45 Temperature 97.9 F Temperature Source Oral Pulse Rate 71 72 Respiratory Rate 15 9 L Blood Pressure 136/80 H 141/74 H Blood Pressure Mean 98 94 Pulse Ox 97 100 Oxygen Delivery Method Room Air 09/11/24 17:57 09/11/24 18:00 09/11/24 18:15 Temperature 97.6 F L Temperature Source Oral Pulse Rate 72 70 71 Respiratory Rate 12 14 15 Blood Pressure 141/74 H Blood Pressure Mean 96 Pulse Ox 98 Oxygen Delivery Method Room Air 09/11/24 18:30 09/11/24 18:45 09/11/24 19:00 Temperature 97.8 F Temperature Source Oral Pulse Rate 72 75 Respiratory Rate 16 15 Blood Pressure 139/89 H 147/89 H Blood Pressure Mean 105 108 Pulse Ox 97 Oxygen Delivery Method Room Air 09/11/24 19:00 09/11/24 19:15 09/11/24 19:30 Temperature Temperature Source Pulse Rate 72 69 75 Respiratory Rate 15 15 18 Blood Pressure 147/89 H Blood Pressure Mean 104 Pulse Ox Oxygen Delivery Method 09/11/24 19:45 09/11/24 20:00 09/11/24 20:00 Temperature 98.1 F Temperature Source Oral Pulse Rate 75 78 73 Respiratory Rate 14 14 13 Blood Pressure 144/83 H 144/83 H Blood Pressure Mean 103 101 Pulse Ox 96 Oxygen Delivery Method Room Air 09/11/24 20:15 09/11/24 20:30 09/11/24 20:33 Temperature Temperature Source Pulse Rate 75 86 Respiratory Rate 18 15 Blood Pressure 144/83 H Blood Pressure Mean 103 Pulse Ox Oxygen Delivery Method 09/11/24 20:44 09/11/24 20:45 09/11/24 21:00 Temperature 98.4 F Temperature Source Oral Pulse Rate 82 83 82 Respiratory Rate 18 11 L 14 Blood Pressure 144/83 H 136/84 H Blood Pressure Mean 103 99 Pulse Ox 96 Oxygen Delivery Method Room Air 09/11/24 21:15 09/11/24 21:30 09/11/24 21:45 Temperature Temperature Source Pulse Rate 82 83 82 Respiratory Rate 12 15 11 L Blood Pressure 127/77 H Blood Pressure Mean 91 Pulse Ox Oxygen Delivery Method 09/11/24 22:00 09/11/24 22:00 09/11/24 22:15 Temperature 98.1 F Temperature Source Oral Pulse Rate 82 82 83 Respiratory Rate 16 12 14 Blood Pressure 145/85 H 145/85 H Blood Pressure Mean 105 102 Pulse Ox 95 Oxygen Delivery Method Room Air 09/11/24 22:30 09/11/24 22:45 09/11/24 23:00 Temperature 97.5 F L Temperature Source Oral Pulse Rate 86 84 81 Respiratory Rate 14 13 14 Blood Pressure 130/83 H Blood Pressure Mean 98 Pulse Ox 97 Oxygen Delivery Method Room Air 09/11/24 23:00 Temperature Temperature Source Pulse Rate 82 Respiratory Rate 15 Blood Pressure 130/83 H Blood Pressure Mean 96 Pulse Ox 95 Oxygen Delivery Method <Dr. Adan Bell, DO - Last Filed: 09/12/24 00:12> Physical Exam Const Vital Signs: 09/11/24 15:37 09/11/24 15:41 09/11/24 15:52 Temperature 97.9 F 97.9 F Temperature Source Oral Oral Pulse Rate 75 77 Respiratory Rate 18 18 Blood Pressure 121/80 H 121/80 H Blood Pressure Mean 93 93 Pulse Ox 97 97 97 Oxygen Delivery Method Room Air Room Air Room Air 09/11/24 16:41 09/11/24 17:35 09/11/24 17:45 Temperature 97.9 F Temperature Source Oral Pulse Rate 71 72 Respiratory Rate 15 9 L Blood Pressure 136/80 H 141/74 H Blood Pressure Mean 98 94 Pulse Ox 97 100 Oxygen Delivery Method Room Air 09/11/24 17:57 09/11/24 18:00 09/11/24 18:15 Temperature 97.6 F L Temperature Source Oral Pulse Rate 72 70 71 Respiratory Rate 12 14 15 Blood Pressure 141/74 H Blood Pressure Mean 96 Pulse Ox 98 Oxygen Delivery Method Room Air 09/11/24 18:30 09/11/24 18:45 09/11/24 19:00 Temperature 97.8 F Temperature Source Oral Pulse Rate 72 75 Respiratory Rate 16 15 Blood Pressure 139/89 H 147/89 H Blood Pressure Mean 105 108 Pulse Ox 97 Oxygen Delivery Method Room Air 09/11/24 19:00 09/11/24 19:15 09/11/24 19:30 Temperature Temperature Source Pulse Rate 72 69 75 Respiratory Rate 15 15 18 Blood Pressure 147/89 H Blood Pressure Mean 104 Pulse Ox Oxygen Delivery Method 09/11/24 19:45 09/11/24 20:00 09/11/24 20:00 Temperature 98.1 F Temperature Source Oral Pulse Rate 75 78 73 Respiratory Rate 14 14 13 Blood Pressure 144/83 H 144/83 H Blood Pressure Mean 103 101 Pulse Ox 96 Oxygen Delivery Method Room Air 09/11/24 20:15 09/11/24 20:30 09/11/24 20:33 Temperature Temperature Source Pulse Rate 75 86 Respiratory Rate 18 15 Blood Pressure 144/83 H Blood Pressure Mean 103 Pulse Ox Oxygen Delivery Method 09/11/24 20:44 09/11/24 20:45 09/11/24 21:00 Temperature 98.4 F Temperature Source Oral Pulse Rate 82 83 82 Respiratory Rate 18 11 L 14 Blood Pressure 144/83 H 136/84 H Blood Pressure Mean 103 99 Pulse Ox 96 Oxygen Delivery Method Room Air 09/11/24 21:15 09/11/24 21:30 09/11/24 21:45 Temperature Temperature Source Pulse Rate 82 83 82 Respiratory Rate 12 15 11 L Blood Pressure 127/77 H Blood Pressure Mean 91 Pulse Ox Oxygen Delivery Method 09/11/24 22:00 09/11/24 22:00 09/11/24 22:15 Temperature 98.1 F Temperature Source Oral Pulse Rate 82 82 83 Respiratory Rate 16 12 14 Blood Pressure 145/85 H 145/85 H Blood Pressure Mean 105 102 Pulse Ox 95 Oxygen Delivery Method Room Air 09/11/24 22:30 09/11/24 22:45 09/11/24 23:00 Temperature 97.5 F L Temperature Source Oral Pulse Rate 86 84 81 Respiratory Rate 14 13 14 Blood Pressure 130/83 H Blood Pressure Mean 98 Pulse Ox 97 Oxygen Delivery Method Room Air 09/11/24 23:00 Temperature Temperature Source Pulse Rate 82 Respiratory Rate 15 Blood Pressure 130/83 H Blood Pressure Mean 96 Pulse Ox 95 Oxygen Delivery Method [facility] <MARCOS Holliday - Last Filed: 09/11/24 21:48> [facility] Lab Data Labs: Laboratory Results - last 24 hr 09/11/24 09/11/24 16:00 16:56 WBC 11.6 H RBC 5.05 Hgb 13.0 Hct 40.9 MCV 81.0 MCH 25.7 L MCHC 31.8 L RDW Std Deviation 51.1 H RDW Coeff of Bhanu 17.6 H Plt Count 371 MPV 8.6 Immature Gran % (Auto) 0.400 Neut % (Auto) 66.2 Lymph % (Auto) 20.8 Rolette % (Auto) 8.6 Eos % (Auto) 3.6 Baso % (Auto) 0.4 Absolute Neuts (auto) 7.6 Absolute Lymphs (auto) 2.40 Nucleated RBC % 0 PT 13.7 INR 1.0 APTT 49.7 H Sodium 139 Potassium 4.1 Chloride 103 Carbon Dioxide 27.3 Anion Gap 9 BUN 15 Creatinine 0.75 Estim Creat Clear Calc 107.24 Est GFR (MDRD) Non-Af 101 BUN/Creatinine Ratio 19.5 Glucose 123 H Lactic Acid 1.4 Calcium 8.9 Total Bilirubin < 0.15 AST 27 ALT 19 Alkaline Phosphatase 146 H Total Protein 6.8 Albumin 3.0 L Globulin 3.9 Albumin/Globulin Ratio 0.8 L Urine Color Yellow Urine Clarity Clear Urine pH 6.0 Ur Specific [place] 1.015 Urine Protein 15 H Urine Glucose (UA) Normal Urine Ketones Negative Urine Occult Blood 10 H Urine Nitrite Positive H Urine Bilirubin Negative Urine Urobilinogen Normal Ur Leukocyte Esterase 100 H Urine RBC 0-5 SEEN Urine WBC 5-10 SEEN Ur Squamous Epith Cells 0 SEEN Calcium Oxalate Crystal RARE Urine Bacteria 2+ Urine Mucus RARE Radiography Diagnostic Testing: Clinical Impression(s) from Imaging Studies Pelvis CT 09/11/24 16:38 IMPRESSION: Large sacral decubitus ulcers with chronic osteomyelitis of the sacrum and ischium bilaterally but no abscess. Reading Location: [facility] Treatment and Re-Evaluation :: Differential diagnosis includes however is not limited to: Osteomyelitis, stage III pressure ulcers, stage IV pressure ulcers, sepsis, cellulitis, necrotizing fasciitis Patient appears generally well, vital signs are stable, patient is nontoxic-appearing. Presenting to the emergency department for wound care, wound evaluation. On my physical examination, patient multiple wounds to the sacrum, buttocks area, this was between stage II to stage III pressure ulcers with some drainage. I was able to collect wound cultures. Patient was seen a septic workup. CT scan of the pelvis will be completed. All radiologic examinations were read, reviewed by the emergency department attending. From these reads, a plan of care will be put in place. Patient remained stable. Patient's laboratory values shows a normal PT/INR. Patient's CBC shows slight leukocytosis with white blood count 11.6, chemistrieswere unremarkable. Patient was started IV vancomycin, IV Zosyn. CT scan of thepelvis showed large sacral decubitus ulcers with chronic osteomyelitis of the sacrum and ischium bilaterally but no abscess. Secondary this finding, the patient does want to try to go to the [facility]. We will try to see if they have a bed. If not the patient will be admitted here. Patient will be admitted to [facility]. <Dr. Adan Bell, DO - Last Filed: 09/12/24 00:12> [facility] Narrative Medical decision making narrative: I have personally performed a face to face assessment of the patient and have reviewed the BE Note. I performed a substantive portion of the visit including all aspects of the following. My valdes findings include: History: Patient presents with sacral decubitus ulcers with been constant for months but have become worse over the past few days. Home health staff noted that there is some foul odor to the ulcerations. Patient was referred to the emergency department for possible infection of the sacral decubitus ulcers. Patient also states that he has a suprapubic catheter in. Patient states that on my office was also concern for possible urinary tract infection. Patient hasa history of paraplegia and is numb from the waist down. Exam: Vital signs are stable. Patient is afebrile. Patient is in no acute distress. Oral mucosa is pink and moist. Neck is supple. Trachea is midline. There is no JVD. Heart was regular rate and rhythm. Lungs are clear and equal bilaterally. There is good respiratory effort noted. Abdomen is soft. Bowel sounds are normal. There is no tenderness. Cranial nerves II through XII are grossly intact. Skin is warm and dry. There are stage II sacral decubitus ulcers noted. There is some mild surrounding erythema. There is no active discharge or drainage noted. Medical Decision Making: Differential diagnosis includes cellulitis, abscess, osteomyelitis, urinary tract infection, sepsis, and coagulopathy. CBC will be obtained to assess for leukocytosis and anemia. Comprehensive metabolic profilewill be obtained to assess for hepatic function, renal function, and electrolyteabnormality. PT with INR and PTT will be obtained to assess for coagulopathy. Serum lactate will be obtained to assess for sepsis. Urinalysis will be obtained to assess for urinary tract infection and hematuria. Blood culture will be obtained to assess for sepsis. Urine culture will be obtained to assessfor urinary tract infection. CT scan of the pelvis will be obtained to assess for osteomyelitis and abscess. Patient was started on Vancomycin and Zosyn. CBC was reviewed. There is a mildleukocytosis of 11.6. The remainder was within normal limits. PT with INR and PTT were reviewed. PTT was slightly elevated at 49.7. PT was INR were reviewedand were within normal limits. Comprehensive metabolic profile was reviewed andwas essentially within normal limits. Alkaline phosphatase was slightly elevated at 146. Serum lactate was reviewed and was normal at 1.4. Urinalysis was reviewed. Leukocyte Estrace was 100 with positive nitrates. There are 5-10white blood cells. There is 2+ bacteria. CT scan of the pelvis was obtained. There are large sacral decubitus ulcers with chronic osteomyelitis. There is noabscess formation. This was interpreted by the radiologist and was also independently reviewed by myself. Patient requested to go to the [place]. Patient was accepted there. Patient was to be transferred to the emergency department there. However, ambulance service stated that the patient's insurance would notcover their ambulance [facility] [place] to arrange for their own [facility] until tomorrow. Patient will be kept in the emergency department until that time. Care of the patient will be turned over to the oncoming physician pending transfer. Patient understands and is agreeable with the plan. All questions were answered. Lab Data Labs: Laboratory Results - last 24 hr 09/11/24 09/11/24 16:00 16:56 WBC 11.6 H RBC 5.05 Hgb 13.0 Hct 40.9 MCV 81.0 MCH 25.7 L MCHC 31.8 L RDW Std Deviation 51.1 H RDW Coeff of Bhanu 17.6 H Plt Count 371 MPV 8.6 Immature Gran % (Auto) 0.400 Neut % (Auto) 66.2 Lymph % (Auto) 20.8 Rolette % (Auto) 8.6 Eos % (Auto) 3.6 Baso % (Auto) 0.4 Absolute Neuts (auto) 7.6 Absolute Lymphs (auto) 2.40 Nucleated RBC % 0 PT 13.7 INR 1.0 APTT 49.7 H Sodium 139 Potassium 4.1 Chloride 103 Carbon Dioxide 27.3 Anion Gap 9 BUN 15 Creatinine 0.75 Estim Creat Clear Calc 107.24 Est GFR (MDRD) Non-Af 101 BUN/Creatinine Ratio 19.5 Glucose 123 H Lactic Acid 1.4 Calcium 8.9 Total Bilirubin < 0.15 AST 27 ALT 19 Alkaline Phosphatase 146 H Total Protein 6.8 Albumin 3.0 L Globulin 3.9 Albumin/Globulin Ratio 0.8 L Urine Color Yellow Urine Clarity Clear Urine pH 6.0 Ur Specific [place] 1.015 Urine Protein 15 H Urine Glucose (UA) Normal Urine Ketones Negative Urine Occult Blood 10 H Urine Nitrite Positive H Urine Bilirubin Negative Urine Urobilinogen Normal Ur Leukocyte Esterase 100 H Urine RBC 0-5 SEEN Urine WBC 5-10 SEEN Ur Squamous Epith Cells 0 SEEN Calcium Oxalate Crystal RARE Urine Bacteria 2+ Urine Mucus RARE Radiography Diagnostic Testing: Clinical Impression(s) from Imaging Studies Pelvis CT 09/11/24 16:38 IMPRESSION: Large sacral decubitus ulcers with chronic osteomyelitis of the sacrum and ischium bilaterally but no abscess. Reading Location: [id number] Discharge Plan Triage Chief Complaint: Cellulitis ED Midlevel Provider: Alex Sheppard ED Provider: Adan Bell Dx/Rx/DC Orders Clinical Impression: Paraplegia, Sacral wound, Osteomyelitis Prescriptions: No Action baclofen 20 MG tablet 20 mg PO TID Patient Comments: MUSCLE SPASMS multivitamin with folic acid [Thera] 1 TABLET tablet 1 tab PO LUNCH Patient Comments: SUPPLEMENT gabapentin 100 MG capsule 300 mg PO TID Patient Comments: NEUROPATHY nortriptyline 50 MG capsule 100 mg PO QHS ascorbic acid (vitamin C) [Vitamin C] 1,000 mg Tablet 1 g PO DAILY venlafaxine 75 mg Tablet 150 mg PO DAILY docusate sodium 100 mg Capsule 100 mg PO BID cholecalciferol (vitamin D3) [Vitamin D3] 50 mcg (2,000 unit) Capsule 50 mcg PO DAILY loratadine 10 mg Capsule 10 mg PO DAILY carvedilol 6.25 mg Tablet 6.25 mg PO BID 30 Days Qty: 60 0RF aspirin 81 mg Tablet,Delayed Release (Dr/Ec) 81 mg PO BREAKFAST 30 Days Qty: 30 0RF Eliquis 2.5 mg Tablet 2.5 mg PO BID 30 Days Qty: 60 0RF ondansetron 4 mg tablet,disintegrating 4 mg PO Q8H PRN (Reason: nausea and vomiting) Qty: 10 0RF buprenorphine 20 mcg/hour patch weekly 1 patch transdermal Q7D Rx Instructions: sundays rosuvastatin [Crestor] 10 mg tablet 20 mg PO DAILY doxycycline monohydrate 100 mg capsule 100 mg PO BID 10 Days Qty: 20 0RF [facility] [[facility] Provider] - Print Language: Upper Sorbian Disposition Disposition: Acute Care Hospital Discharge Location: Department of Affairs What to do if you have Problems For any increased pain, shortness of breath, bleeding, nausea or vomiting, chestpain, or any unexpected problems, contact your Primary Care Provider. Call [facility] ([phone]) or report to the closest Emergency Room. Call 911 if necessary. 09/11/[id number] <Electronically signed by Alex CHIC> Cosigner Signature (if applicable): 09/12/24 0012 <Electronically signed by Adan Bell DO> CC: [facility] ~ Signed [facility] Work Phone: 1(406) 290-443401-22-2025 [facility] Medical Records Department [address] [place] [address] Discharge Summary 06/19/24 1145 MR#: [id number] Acct: [id number] Name: BAUTISTA RUFFIN Rep #: [id number] : 1960 64 From: Darian Arceo MD PCP: [facility] Status:ADM [facility] Prov[facility] Date of Admission: 06/16/24 Date of Discharge: 06/19/24 Primary Care Physician: [facility] Consultations 06/17/24 02:09 Consult: Onc/Wound/program supervisor Routine Comment: Reason for Consult:: large buttock /hip wound Reason For Visit: RECURRENT UTI BCWIFE DID NOT GIVE ATB'S Diagnosis Discharge Diagnosis (1) Acute cystitis with hematuria: Status: Acute Code(s): N30.01 - Acute cystitis with hematuria (2) Pseudomonas urinary tract infection: Status: Acute Code(s): N39.0 - Urinary tract infection, site not specified; B96.5 - Pseudomonas (aeruginosa) (mallei) (pseudomallei) as the cause of diseases classified elsewhere (3) Lethargy: Status: Acute Code(s): R53.83 - Other fatigue (4) Weakness: Status: Acute Code(s): R53.1 - Weakness (5) Paraplegia: Status: Chronic Code(s): G82.20 - Paraplegia, unspecified (6) Sacral decubitus ulcer, stage III: Status: Acute Code(s): L89.153 - Pressure ulcer of sacral region, stage 3 (7) 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 1. Acute CAUTI secondary to Pseudomonas aeruginosa likely due to chronic suprapubic catheter: UA showed with microscopic hematuria, pyuria with a corresponding Leukocytosis of 13.9 K present on admission -the patient was admitted on Medr floor. Urine culture shows no growth. 06/17: Leukocytosis resolved. On last discharge on 06/14, prescription was given by ID for Zosyn for 5 more days which is resumed. Patient has midline. Discussed with the case finishing machine adjuster. [facility] need to go to [facility] 06/18: Patient wanted to go home so that he can he smokes cigarettes. Patient on nicotine. Patient advised that he should stay today to complete IV Zosyn and then will be discharged tomorrow. Discussed with the ID and no need to see him but has to finish IV Zosyn as prescribed. 06/19: Patient is completing last day of antibiotic today and then remove the midline and can be discharged. 2. Chronic Paraplegia with history of transverse myelitis; with neurogenic bladder and history of suprapubic catheter superimposed acute Generalized Weakness and Lethargy with numerous stage III-IV sacral decubiti noted on admission: He has chronic stage IV decubitus ulcer. Does not look infected. Wound nurse Jud follows the patient but she is not here today 06/19: Follow-up in wound center for stage IV decubitus ulcer, surgeon has seen the patient and wound does not look worse. 3. Chronic history of intertrochanteric fracture due to lytic lesion in his femur: Patient was worked in [employer] and was not felt to be surgical candidate. Recommend to follow-up with [facility]. 4. History of CAD; s/p proximal LAD stent (2021) on baby aspirin and ticagrelor - Resume BASA , carvedilol, rosuvastatin, and lisinopril 5. Chronic tobacco use, cigarette smoking less than 10/day and chronic cannabis use: Tobacco Cessation strongly encouraged with Nicotine patch offered to control cravings. Patient also uses cannabis. 6 essential hypertension; on carvedilol and lisinopril - Maintain current regimen as before. 7. Hyperlipidemia; on rosuvastatin BMI: 24.5 kg/m??? in normal range. DVT prophylaxis -Eliquis 2.5 mg twice daily Discharge medication reconciliation done. Discharge follow-up instructions completed. Discharge process discussed with the patient and all questions were answered to patient's satisfaction. Follow with PCP in 1 to 2 weeks Total time spent, exact 35 minutes on discharge meds reconciliation, examination, coordination of care with nurses and ancillary staff, review of imaging and blood test and discussion with the patient on follow-up instructions. Medications at Discharge Home Medications baclofen 20 mg tablet 20 mg PO TID muscle spasms 02/26/13 multivitamin with folic acid 400 mcg tablet (Thera) 1 tab PO LUNCH supplemeny 02/26/13 gabapentin 100 mg capsule 900 mg PO TID neuropathy 04/19/13 nortriptyline 50 mg capsule 100 mg PO QHS anxiety 01/19/19 ascorbic acid (vitamin C) 1,000 mg tablet (Vitamin C) 1 g PO DAILY Check w (more content not included)...[facility]01-17-2025 [facility] Medical Records Department [address] [place] [address] Discharge Summary 06/14/24 1552 MR#: [id number] Acct: [id number] Name: BAUTISTA RUFFIN Rep #: [id number] : 1960 64 From: Darian Arceo MD PCP: [facility] Status:ADM IN Location: [facility] [place] [place] CT290-4 Providers Date of Admission: 06/11/24 Date of Discharge: 06/14/24 Primary Care Physician: [facility] Consultations 06/11/24 23:24 Consult: Onc/Wound/program supervisor Routine Comment: Reason for Consult:: wound 06/14/24 12:11 Consult: Infectious Disease Routine Consulting Provider: Maulik Jenkins Reason for Consult: antibiotic recommendations PsA UTI EMERGENT Consult: No MD Notified: Yes Date Notified: 06/14/24 Time Notified: 12:10 Method of Notification: Text Reason For Visit: UTI, SUSPECTED RUL PNA, HYPOKALEMIA GENERALIZED Diagnosis Discharge Diagnosis (1) Acute cystitis with hematuria: Status: Acute Code(s): N30.01 - Acute cystitis with hematuria (2) Pneumonia: Status: Acute Code(s): J18.9 - Pneumonia, unspecified organism Qualifiers: Laterality: right Lung location: unspecified part of lung Pneumonia type: due to unspecified organism Qualified Code(s): J18.9 - Pneumonia, unspecified organism (3) Metabolic encephalopathy: Status: Acute Code(s): G93.41 - Metabolic encephalopathy (4) Hypokalemia: Status: Acute Code(s): E87.6 - Hypokalemia (5) Paraplegia: Status: Chronic Code(s): G82.20 - Paraplegia, unspecified (6) Sacral decubitus ulcer, stage III: Status: Acute Code(s): L89.153 - Pressure ulcer of sacral region, stage 3 (7) Generalized weakness: Status: Acute Code(s): R53.1 - Weakness (8) Lethargy: Status: Acute Code(s): R53.83 - Other fatigue (9) 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: Status: Acute Code(s): S72.001K - Fracture of unspecified part of neck of right femur, subsequent encounter for closed fracture with nonunion (10) Acute hip pain: Status: Acute Code(s): M25.559 - Pain in unspecified hip Qualifiers: Laterality: right Qualified Code(s): M25.551 - Pain in right hip (11) History of coronary artery stent placement: Status: Acute Code(s): Z95.5 - Presence of coronary angioplasty implant and graft (12) Tobacco abuse: Status: Acute Code(s): Z72.0 - Tobacco use (13) Marijuana use: Status: Acute Code(s): F12.90 - Cannabis use, unspecified, uncomplicated Plan 64-year-old gentleman with history of chronic paraplegia, had plastic surgery and chronic decubitus ulcer stage IV was admitted with generalized weakness and right hip pain. 1. Acute CAUTI secondary to Pseudomonas aeruginosa; with microscopic hematuria likely due to chronic suprapubic catheter with a corresponding Leukocytosis of 12.7 K present on admission - admitted to MedSur floor. Has suprapubic catheter. Prelim urine culture shows GNR more than 100,000 colonies. 06/14: Urine culture showed Pseudomonas aeruginosa more than 100,000 colonies. IV Zosyn was started on 06/13. Rocephin discontinued. ID was consulted. Impression was symptomatic UTI therefore prescription for IV Zosyn for 5 more days ordered by ID. Midline ordered. Midline inserted. IV antibiotic arranged. Discussed with the case finishing machine adjuster. Patient is discharged with home health. 2. Pneumonia ruled out. Chest x-ray is chronic multifocal gestational thickening: CT chest was done which shows minor interstitial thickening and subcentimeter noncalcified nodules in the right lower lobe. Does not seem an acute infectious process, consolidation, or bronchopneumonia. IV azithromycin discontinued 3. Metabolic encephalopathy: Acute encephalopathy has resolved. 4. Hypokalemia of 3.4 mmol/L present on admission: Potassium supplement added. 5. Chronic Paraplegia with history of transverse myelitis; with neurogenic bladder and history of suprapubic catheter superimposed acute Generalized Weakness and Lethargy with numerous stage III-IV sacral decubiti noted on admission -discussed with the wound nurse. He has chronic stage IV decubitus. Does not look infected. She has seen the patient in the past. 6. Chronic history of intertrochanteric fracture due to lytic lesion in his femur: Patient was worked in [employer] and was not felt to be surgical candidate. Recommend to follow-up with [facility]. 7. History of CAD; s/p proximal LAD stent (2021) on baby aspirin and ticagrelor - Resume BASA and ticagrelor as previous. 8. History of tobacco abuse - Tobacco Cessation will be strongly encouraged with Nicotine patch offered to control cravings. 9. History of cannabis abuse - Cannabis Cessation will be strongly encouraged. 10. Essential hypertension; on carvedilol and lisinopril - Maintain current regimen as before. 11. 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 acute June 11, 2024 9:41pm Generalized weakness acute Mark jony 2024 9:41pm History of coronary artery stent placement June 28, 2021 acute June 11, 2024 9:41pm Hypokalemia acute June 11, 2024 9:41pm Lethargy acute June 11, 2024 9:41pm Marijuana use acute May 9:41pm Pneumonia acute June 11, 2024 9:41pm Tobacco abuse acute May 9:41pm Paraplegia chronic June 11, 2024 9:41pm Metabolic encephalopathy resolved June 11, 2024 9:41pm Sacral decubitus ulcer, stage III inactive June 11 9:41pm Acute cystitis with hematuria acute June 16 7:56pm 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 Stacy Gongora [facility]12-13-2024 Miscellaneous Notes* Telephone Encounter - Stacy Gongora - 05/10/2024 10:30 AM EST I spoke with the patient and scheduled an appointment. Stacy Gongora * Telephone Encounter - Stacy Gongora - 05/07/2024 9:07 AM EST I called the patient to schedule an appointment. I left another voice mail with our office number to call back. Of note he has 2 numbers in the chart. The 601# does not work. Stacy Gongora * Telephone Encounter - Stacy Gongora - 05/06/2024 8:17 AM EST I called the patient to schedule an appointment with [facility]TM in 3 weeks. I left a voice mail with our office number to call back. Stacy Gongora * Telephone Encounter - Stacy Gongora - 05/06/2024 8:17 AM EST ----- Message from Hetal Gallegos MD sent at 05/04/2024 12:05 PM EST ----- [facility] in 3 weeks [facility] encounter Note * Telephone Encounter - Stacy Gongora - 05/07/2024 9:07 AM EST I called the patient to schedule an appointment. I left another voice mail with our office number to call back. Of note he has 2 numbers in the chart. The 601# does not work. Stacy Gongora [facility]12-09-2024 Telephone encounter Note* Telephone Encounter - Stacy Gongora - 05/06/2024 8:17 AM EST I called the patient to schedule an appointment with MTM in 3 weeks. I left a voice mail with our office number to call back. Stacy Gongora [facility]12-09-2024 Telephone encounter Note* Telephone Encounter - Stacy Gongora - 05/06/2024 8:17 AM EST ----- Message from Hetal Gallegos MD sent at 05/04/2024 12:05 PM EST ----- [facility] Diagnosis Onset Date Resolution Status Non-ST elevated myocardial infarction (non-STEMI) resolved [facility] Work Phone: Evaluation noteNo assessment information available [facility] Work Phone: Hospital Discharge instructions Additional Instructions Your CT scan abdomen pelvis notes right middle lobe pulmonary nodules of 4 mm and 7 mm. Will need dedicated scans of your lungs as an outpatient. There is no obstruction on your CT scan your labs are normal. Your COVID and influenza is negative. Your viral symptoms. Monitor symptoms. Return if any worsening symptoms. Take medications as prescribed.[facility] Work Phone: Hospital Discharge instructions Additional Instructions Your suprapubic cath was exchanged 18 Monegasque placed with urine output. Urine culture pending. Taking finish antibiotic as scribed. Follow-up with your urology team.[facility] Work Phone: Reason for referral (narrative)No reason for referral information availableWUniversity [facility]als [facility] Work Phone: Summary Purpose Family History No Family History Records Found Relationship Condition Age at Onset Recorded Date/T dainelys father Cerebrovascular accident (CVA) Unknown Cardiac disease Unknown Myocardial infarction Unknown Advance Directives No Advanced Directives Records Found Advance Directive Response Recorded Date/ Time Name of Medical Power of Peanut Vendor mother and sis ter June 28, 2021 5:01am Advance Directives No June 29, 2016 2:07am Living Will No September 09, 2021 3:30pm Power of Peanut Vendor No September 09 3:30pm Advance Directive Response Recorded Date/ Time Advance Directives No June 29, 2016 1:07am Living Will Yes May 22, 022 4:43pm Power of Peanut Vendor Yes May 22, 2022 4:43pm Name of Medical Power of Peanut Vendor mariselaisidoro horner May 22, 2022 4:43pm Advance Directive Response Recorded Date/ Time Name of Medical Power of Peanut Vendor mariselaisidoro horner May 22, 2022 4:43pm Advance Directives No June 29, 2016 1:07am Living Will No June 06 4:21pm Power of Peanut Vendor No June 06 023 4:21pm Advance Directive Response Recorded Date/ Time Advance Directives No June 29, 2016 2:07am Living Will Yes October 09, 2023 1 :17am Power of Peanut Vendor Yes October 09, 2023 1:17am Name of Medical Power of Peanut Vendor Gloria ex wif e October 09, 2023 1:17am Advance Directive Response Recorded Date/ Time Living Will No June 12 12:19am Do you have a Healthcare Pow er of Peanut Vendor? No June 12, 2024 12:19am Living Will Yes July 14 025 8:10am Do you have a Healthcare Pow er of Peanut Vendor? Yes July 14, 2024 8:10am Name of Medical Power of Peanut Vendor ANTHONY PLANT July 14, 2024 8:10am Living Will Yes September 11, 2024 3:41pm Do you have a Healthcare Pow er of Peanut Vendor? Yes September 11, 2024 3:41pm Name of Medical Power of Peanut Vendor Marisela September 11, 2024 3:41pm Living Will Yes June 16 10:03pm Do you have a Healthcare Pow er of Peanut Vendor? Yes June 16, 2024 10:03pm Name of Medical Power of Peanut Vendor yudith plant w nusrat June 16, 2024 10:03pm Living Will No July 13 025 3:32am Do you have a Healthcare Pow er of Peanut Vendor? No July 13, 2024 3:32am Advance Directives No June 29, 2016 2:07am Advance Directive Response Recorded Date/ Time Living Will Yes July 14 025 8:10am Do you have a Healthcare Power of Peanut Vendor? Yes July 14, 2024 8:10am Name of Medical Power of Peanut Vendor ANTHONY RUFFIN July 14, 2024 8:10am Living Will Yes September 11, 2024 3:41pm Do you have a Healthcare Power of Peanut Vendor? Yes September 11, 2024 3:41pm Name of Medical Power of Peanut Vendor Marisela September 11, 2024 3:41pm Do you have a Healthcare Power of Peanut Vendor? Yes November 01, 2024 2:11pm Living Will No July 13 3:32am Do you have a Healthcare Power of Peanut Vendor? No July 13, 2024 3:32am Advance Directives No June 29, 2016 2:07am Chief Complaint and Reason for Visit Chief Complaint CHEST PAIN, NON-STEM I CHEST PAIN, NON-STEMI CHEST PAIN, NON-STEMI CHEST PAIN, NON-STEMI CHEST PAIN, NON-STEMI wound Reason for Visit Non-ST elevated myoc ardial infarction (non-STEMI) Chief Complaint abdominal pain Chief Complaint abdominal pain CONFUSION Chief Complaint chest pain Chief Complaint Admit Date UTI, SUSPECTED RUL PNA, HYPOKALEMIA & GE NERALIZED June 11, 2024 9:41pm UTI, SUSPECTED RUL PNA, HYPOKALEMIA & GE NERALIZED June 12, 2024 4:26pm UTI, SUSPECTED RUL PNA, HYPOKALEMIA & GE NERALIZED June 13, 2024 4:15pm UTI, SUSPECTED RUL PNA, HYPOKALEMIA & GE NERALIZED June 14, 2024 3:52pm RECURRENT UTI BCWIFE DID NOT GIVE ATB'S June 16, 2024 7:56pm RECURRENT UTI BCWIFE DID NOT GIVE ATB'S June 17, 2024 11:18am RECURRENT UTI BCWIFE DID NOT GIVE ATB'S June 18, 2024 4:29pm RECURRENT UTI BCWIFE DID NOT GIVE ATB'S June 19, 2024 11:45am chest pain July 13, 2024 2:25am CAN'T SLEEP July 14, 2024 7:05am wounds September 11, 2024 3:3 6pm Reason for Visit Admit Date Acute cystitis with hematuria June 112024 9:41pm Acute hip pain June 11, 2024 9 :41pm Acute UTI June 11, 2024 9 :41pm Closed fracture of right hip with nonuni on June 11, 2024 9:41pm Generalized weakness June 11, 2024 9:41pm History of coronary artery stent placeme nt June 11, 2024 9:41pm Hypokalemia June 11, 2024 9 :41pm Lethargy June 11, 2024 9 :41pm Marijuana use June 11, 2024 9 :41pm Pneumonia June 11, 2024 9 :41pm Tobacco abuse June 11, 2024 9 :41pm Paraplegia June 11, 2024 9 :41pm Metabolic encephalopathy June 11 9:41pm Sacral decubitus ulcer, stage III Mayuar y 2024 9:41pm Acute cystitis with hematuria June 162024 7:56pm Closed fracture of right hip with nonuni on June 16, 2024 7:56pm History of coronary artery stent placeme nt June 16, 2024 7:56pm Lethargy June 16, 2024 7 :56pm Pseudomonas urinary tract infection Mark jony 2024 7:56pm Tobacco abuse June 16, 2024 7 :56pm Weakness June 16, 2024 7 :56pm Paraplegia June 16, 2024 7 :56pm Sacral decubitus ulcer, stage III Januar y 2024 7:56pm Chief Complaint Admit Date chest pain July 13, 2024 2:25am CAN'T SLEEP July 14, 2024 7:05am wounds September 11, 2024 3:3 6pm urinary November 01, 2024 2:11p m Additional Source Comments (unrecognized sect ion and content) No Status Records FoundNo Status Records FoundNo Status Records FoundNo Status Records Found INFORMATION SOURCE (unrecogn ized section and content) DATE CREATED AUTHOR 11/20/2017 [facility] [facility] DATE CREATED AUTHOR AUTHOR'S ORGANIZ ATION 11/21/[address] [facility] [place] DATE CREATED AUTHOR AUTHOR'S ORGANIZ ATION 05/11/2024 [facility] DATE CREATED AUTHOR AUTHOR'S ORGANIZ ATION 11/03/2024 [facility] Hospital Goals (unrecognized section and content) Goals may be documented in a n alternate sectionGoals may be documented in an alternate sectionGoals may be documented in an alternate sectionGoals may be documented in an alternate sectionGoals may be documented in an alternate section Care Teams (unrecognized sec tion and content) Team Status: Active Member Role Status Dates [facility] Family Provider Active [facility] Primary Care Provider Active Team Status: Inactive Member Role Status Dates [facility] Primary Care Provider Active Dr. Adan Bell DO Emergency Provider Active Account Installation Specialist Relationship Specialty Start Date End Date Jamey Huynh MD [address] [place] [address] PCP - General Family Medicine 01/02/12 Team Status: Active Member Role Status Dates [facility] Primary Care Provider Active Team Status: Inactive Member Role Status Dates [facility] Primary Care Provider Active Start: June 11, 2024 End: June 14, 2024 Dr. Alma Rosa Pedroza DO Emergency Provider Active S tart: June 11, 2024 End: June 14, 2024 Dr. Ronak Quiroz DO Admit Provider Active Start: June 11, 2024 End: June 14, 2024 Dr. Ronak Quiroz DO Other Provider Active Start: June 11, 2024 End: June 14, 2024 Dr. Darian Arceo MD Attending Provider Active Start: June 11, 2024 End: June 14, 2024 Dr. Maulik Jenkins MD Other Provider Active Start: June 11, 2024 End: June 14, 2024 Team Status: Active Member Role Status Dates [facility] Primary Care Provider Active Start: June 12, 2024 Dr. Alma Rosa Pedroza DO Emergency Provider Active S tart: June 12, 2024 Dr. Ronak Quiroz DO Admit Provider Active Start: June 12, 2024 Dr. Ronak Quiroz DO Other Provider Active Start: June 12, 2024 Dr. Darian Arceo MD Attending Provider Active Start: June 12, 2024 Dr. Darian Arceo MD Other Provider Active Sta rt: June 12, 2024 Team Status: Active Member Role Status Dates [facility] Primary Care Provider Active Start: June 13, 2024 Dr. Alma Rosa Pedroza DO Emergency Provider Active S tart: June 13, 2024 Dr. Ronak Quiroz DO Admit Provider Active Start: June 13, 2024 Dr. Ronak Quiroz DO Other Provider Active Start: June 13, 2024 Dr. Darian Arceo MD Attending Provider Active Start: June 13, 2024 Dr. Darian Arceo MD Other Provider Active Sta rt: June 13, 2024 Team Status: Active Member Role Status Dates [facility] Primary Care Provider Active Start: June 14, 2024 Dr. Alma Rosa Pedroza DO Emergency Provider Active S tart: June 14, 2024 Dr. Ronak Quiroz DO Admit Provider Active Start: June 14, 2024 Dr. Ronak Quiroz DO Other Provider Active Start: June 14, 2024 Dr. Darian Arceo MD Attending Provider Active Start: June 14, 2024 Dr. Darian Arceo MD Other Provider Active Sta rt: June 14, 2024 Dr. Maulik Jenkins MD Other Provider Active Start: June 14, 2024 Team Status: Inactive Member Role Status Dates [facility] Primary Care Provider Active Start: June 16, 2024 End: June 19, 2024 Dr. Christian Merlos MD Emergency Provider Active Start: June 16, 2024 End: June 19, 2024 Dr. Ronak Quiroz DO Admit Provider Active Start: June 16, 2024 End: June 19, 2024 Dr. Ronak Quiroz DO Other Provider Active Start: June 16, 2024 End: June 19, 2024 Dr. Darian Arceo MD Attending Provider Active Start: June 16, 2024 End: June 19, 2024 Team Status: Active Member Role Status Dates [facility] Primary Care Provider Active Start: June 17, 2024 Dr. Christian Merlos MD Emergency Provider Active Start: June 17, 2024 Dr. Ronak Quiroz DO Admit Provider Active Start: June 17, 2024 Dr. Ronak Quiroz DO Other Provider Active Start: June 17, 2024 Dr. Darian Arceo MD Attending Provider Active Start: June 17, 2024 Dr. Darian Arceo MD Other Provider Active Sta rt: June 17, 2024 Team Status: Active Member Role Status Dates [facility] Primary Care Provider Active Start: June 18, 2024 Dr. Christian Merlos MD Emergency Provider Active Start: June 18, 2024 Dr. Ronak Quiroz DO Admit Provider Active Start: June 18, 2024 Dr. Ronak Quiroz DO Other Provider Active Start: June 18, 2024 Dr. Darian Arceo MD Attending Provider Active Start: June 18, 2024 Dr. Darian Arceo MD Other Provider Active Sta rt: June 18, 2024 Team Status: Active Member Role Status Dates [facility] Primary Care Provider Active Start: June 19, 2024 Dr. Christian Merlos MD Emergency Provider Active Start: June 19, 2024 Dr. Ronak Quiroz DO Admit Provider Active Start: June 19, 2024 Dr. Ronak Quiroz DO Other Provider Active Start: June 19, 2024 Dr. Darian Arceo MD Attending Provider Active Start: June 19, 2024 Dr. Darian Arceo MD Other Provider Active Sta rt: June 19, 2024 Team Status: Inactive Member Role Status Dates [facility] Primary Care Provider Active Start: July 13, 2024 End: July 13, 2024 Dr. Richie Borden DO Attending Provider Active Start: July 13, 2024 End: July 13, 2024 Dr. Richie Borden DO Emergency Provider Active Start: July 13, 2024 End: July 13, 2024 Team Status: Inactive Member Role Status Dates [facility] Primary Care Provider Active Start: July 14, 2024 End: July 14, 2024 Dr. Rico Moore DO Attending Provider Active Start: July 14, 2024 End: July 14, 2024 Dr. Rico Moore DO Emergency Provider Active Start: July 14, 2024 End: July 14, 2024 Team Status: Inactive Member Role Status Dates [facility] Primary Care Provider Active Start: September 11, 2024 End: September 12, 2024 Dr. Adan Bell DO Emergency Provider Active Start: September 11, 2024 End: September 12, 2024 Team Status: Inactive Member Role Status Dates [facility] Primary Care Provider Active Start: September 11, 2024 End: September 12, 2024 Dr. Adan Bell DO Attending Provider Active Start: September 11, 2024 End: September 12, 2024 Dr. Adan Bell DO Emergency Provider Active Start: September 11, 2024 End: September 12, 2024 Team Status: Inactive Member Role Status Dates [facility] Primary Care Provider Active Start: November 01, 2024 End: November 01, 2024 Dr. Zhang Chavez DO Emergency Provider Active Start : November 01, 2024 End: November 01, 2024 Source Comments (unrecognize d section and content) In the event this informatio n is protected by the Federal Confidentiality of Alcohol and Drug Abuse Patient Records regulations: The Federal rules restrict any use of the information to criminally investigate or prosecute any alcohol or drug abuse patient.[facility] FOR RECORDS PERTAINING TO PATIENTS WHO ARE OR HAVE BEEN ENROLLED IN A CHEMICAL DEPENDENCY/SUBSTANCEABUSE PROGRAM, SOME INFORMATION MAY BE OMITTED. This clinical summary was aggregated from multiple sources. Caution should be exercised in using it in the provision of clinical care. This summary normalizes information from multiple sources, and as a consequence, information in this document may materially change the coding, format and clinical context of patient data. In addition, data may be omitted in some cases. CLINICAL DECISIONS SHOULD BE BASED ON THE PRIMARY CLINICAL RECORDS. [employer] [facility]. provides no warranty or guarantee of the accuracy or completeness of information in this document.
--- NOTE | 2024-11-03 12:20 | EKG12_ITS ---
Test Reason : Blood Pressure : */* mmHG Vent. Rate : 70 BPM Atrial Rate : 70 BPM P-R Int : 158 ms QRS Dur : 94 ms QT Int : 422 ms P-R-T Axes : 49 65 78 degrees QTcB Int : 455 ms Normal sinus rhythm Normal ECG Confirmed by Bala Carrington ([id number]), editor book AMADO RASHID ([id number]) on 11/04/2024 9:37:41 AM Referred By: Confirmed By: Bala Carrington
--- NOTE | 2024-11-03 12:21 | EX.ED.DYSGE1 ---
HPI History of Present Illness Chief Complaint: General Illness Detail of Chief Complaint: Nausea and not feeling well Informant: patient Narrative Narrative: Patient presents to the emergency department complaint of nausea. Patient states that he has had it for about 2 days. Was seen in the emergency department last evening and diagnosed with a UTI and started on antibiotics. He denies fever although he said some chills. He is a paraplegic with a chronic indwelling suprapubic catheter. Has had prior colostomy. He denies significant abdominal pain. Denies significant chest pain. Patient also has chronic decubiti to his buttocks and sacrum. Home health has been caring for these. 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 Neurogenic bladder Benign essential hypertension Home Medications ?Medication ?Instructions ?Recorded ?Last Taken ?Type baclofen 20 mg tablet 20 mg PO TID muscle spasms 02/26/13 06/27/21 History multivitamin with folic acid 400 1 tab PO LUNCH supplemeny 02/26/13 06/27/21 History mcg tablet (Thera) gabapentin 100 mg capsule 300 mg PO TID neuropathy 04/19/13 06/27/21 History nortriptyline 50 mg capsule 100 mg PO QHS anxiety 01/19/19 06/26/21 History ascorbic acid (vitamin C) 1,000 mg 1 g PO DAILY Check with primary 06/28/21 Unknown History tablet (Vitamin C) doctor cholecalciferol (vitamin D3) 50 50 mcg PO DAILY Check with primary 06/28/21 Unknown History mcg (2,000 unit) capsule (Vitamin doctor D3) docusate sodium 100 mg capsule 100 mg PO BID Check with primary 06/28/21 Unknown History doctor loratadine 10 mg capsule 10 mg PO DAILY Check with primary 06/28/21 Unknown History doctor venlafaxine 75 mg tablet 150 mg PO DAILY Check with primary 06/28/21 Unknown History doctor apixaban 2.5 mg tablet (Eliquis) 2.5 mg PO BID 30 days #60 tabs 06/29/21 Unknown Rx Held on 09/11/24. Instructions: not confirmed aspirin 81 mg tablet,delayed 81 mg PO BREAKFAST heart health 30 06/29/21 Unknown Rx release days #30 tabs carvedilol 6.25 mg tablet 6.25 mg PO BID heart 30 days #60 06/29/21 Unknown Rx tabs ondansetron 4 mg disintegrating 4 mg PO Q8H PRN nausea and 06/06/22 Unknown Rx tablet vomiting #10 tabs rosuvastatin 10 mg tablet (Crestor) 20 mg PO DAILY 06/16/24 Unknown History doxycycline monohydrate 100 mg 100 mg PO BID 10 days #20 CAPSULES 07/13/24 Unknown Rx capsule buprenorphine 20 mcg/hour weekly 1 patch transdermal Q7D 09/11/24 Unknown History transdermal patch cefdinir 300 mg capsule 300 mg PO Q12H #14 caps 11/01/24 Unknown Rx Allergy/AdvReac Type Severity Reaction Status Date / Time No Known Allergies Allergy Verified 11/03/24 11:31 Family History Father CVA (cerebral vascular accident) Heart disease Myocardial infarction Surgical History History of coronary artery stent placement (06/28/21) History of femoral derotational osteotomy History of appendectomy History of suprapubic catheter Hx of colostomy Colostomy in place Social History household members: spouse Smoking Status: Former smoker alcohol intake: former substance use type: marijuana ROS ROS ED Review of Systems ROS Unobtainable: other Constitutional Constitutional ED: Reports lethargy; Denies chills, fever(s), sweats or weight loss Eyes Eyes: Denies blurry vision, change in vision or diplopia ENT ENT ED: Denies rhinorrhea or sore throat Cardiovascular Cardiovascular: Denies chest pain, orthopnea or racing heartbeat Respiratory/Chest Respiratory/Chest: Denies cough, dyspnea, dyspnea on exertion, orthopnea or sputum Gastrointestinal Gastrointestinal: Reports nausea; Denies abdominal pain, diarrhea or vomiting Genitourinary Genitourinary ED: Denies dysuria, hematuria or urinary frequency Musculoskeletal Musculoskeletal: Denies arthralgias, back pain, myalgias or neck pain Integumentary Denies abscess, Abrasions or rash Neurologic Neurologic: Denies headache(s) or weakness Psychiatric Psychiatric: Denies anxiety, depression or suicidal thoughts Endocrine Endocrinology: Denies polydipsia, polyphagia or polyuria Hematologic/Lymphatic Hematologic/Lymphatic: Denies easy bleeding, easy bruising or lymphadenopathy Allergic/Immunologic Allergic/Immunologic ED: Denies mouth swelling, tongue swelling or urticaria EXAM Physical Exam Const Vital Signs: 11/03/24 11:28 11/03/24 11:33 11/03/24 12:31 Temperature 98.2 F 98.2 F Temperature Source Oral Oral Pulse Rate 78 69 Respiratory Rate 17 12 Respiratory Pattern Normal Blood Pressure 157/100 H 138/89 H Blood Pressure Mean 119 105 Pulse Ox 97 98 Oxygen Delivery Method Room Air Room Air 11/03/24 13:00 11/03/24 14:00 11/03/24 15:00 Temperature 98.4 F 98.1 F 97.9 F Temperature Source Oral Oral Oral Pulse Rate 66 69 79 Respiratory Rate 14 14 15 Respiratory Pattern Blood Pressure 182/88 H 159/95 H 138/72 H Blood Pressure Mean 119 116 94 Pulse Ox 99 100 97 Oxygen Delivery Method Room Air Room Air Room Air 11/03/24 16:00 Temperature 97.6 F L Temperature Source Oral Pulse Rate 71 Respiratory Rate 15 Respiratory Pattern Blood Pressure 161/88 H Blood Pressure Mean 112 Pulse Ox 97 Oxygen Delivery Method Room Air Positive well nourished and well developed General Appearance ED: well developed and NAD HEENT Reports TM's clear and moist mucous membranes normocephalic and atraumatic; Negative for trauma or tenderness Tympanic Membrane ED: Yes TM's clear Eyes PERRL and EOMs intact bilaterally General Eye ED: Negative for pale conjunctiva or scleral icterus Neck no lymphadenopathy, supple and no JVD General: Negative for tenderness Chest Wall inspection of chest normal and palpation of chest normal Chest: Negative for tenderness Resp normal respiratory effort and clear to auscultation bilaterally Effort and Inspection: Negative for respiratory distress or pain with movement Auscultation: Negative for rhonchi, wheezes or diminished lung sounds Cardio regular rate, regular rhythm, S1 normal heart sound, S2 normal heart sound and no murmurs Peripheral Pulses: pulses 2+ throughout GI normal to inspection, nondistended, normoactive bowel sounds, soft to palpation, non-tender, non-distended and no masses Back/Spine no CVA tenderness and no thoracic nor lumbar tenderness Back/Spine Narrative: Patient was rolled and dressings were taken down to evaluate the decubitus ulcers which are quite large and extensive that appear to be into the subcutaneous tissue and chronic. No significant cellulitic changes noted. There is no significant drainage. There is a little bit of an odor noted. Extremity normal to inspection General Extremety ED: Negative for edema General Extremity: Negative for edema Neuro oriented x3, CN's II-XII intact bilaterally, no sensory deficits noted and gait normal Sensorium / Orientation: awake, alert, oriented to person, oriented to place and oriented to time Motor Exam: strength 5/5 throughout and strength abnormal Psych mental status grossly normal Skin no rashes or lesions noted and no wounds MDM MDM MDM Narrative Medical decision making narrative: Patient presents with complaint of not feeling well. Seen in the emergency department Monday morning and diagnosed with UTI and started on cefdinir. Patient states that he continues to feel flushed and weak and does not feel well. He complains of significant nausea. IV line established. CBC with differential, 9.3 with hemoglobin 13.5 and platelet count 364. Chemistries unremarkable. EKG obtained arrival shows sinus rhythm with rate of 70 bpm with no acute ST segment changes. Troponin was slightly elevated at 27 however delta troponin was 26 and I do not feel he is having an acute coronary syndrome. He was medicated with Zofran. I did have improvement in his nausea. Given that he is paraplegic and does not have significant sensation to the abdomen I did obtain a CT scan of the abdomen pelvis to evaluate further. It was noted that he had what appeared to be pneumonia in the left lung base. No acute process noted in the abdomen. Discussed results with patient and the caregiver. He does have significant decubiti ulcerations that apparently home health has been addressing however they appear to be worsening rather than improving. Clinically they do not look infected at this time. I noted patient urine culture grew out Pseudomonas that was resistant to the cefdinir. Start patient on Zosyn after discussing with hospitalist. Patient will be admitted for observation. As clinically looks well. I do not feel patient clinically has pneumonia and hospitalist agrees that she feels CT more consistent with atelectasis. Patient and caregiver are requesting admission. Will discuss case with hospitalist. Lab Data Attestation: I reviewed the patient's lab results. Labs: Laboratory Results - last 24 hr 11/03/24 11/03/24 12:35 14:30 WBC 9.3 RBC 5.39 Hgb 13.5 Hct 42.4 MCV 78.7 L MCH 25.0 L MCHC 31.8 L RDW Std Deviation 50.6 H RDW Coeff of Bhanu 18.3 H Plt Count 364 MPV 9.0 Immature Gran % (Auto) 0.200 Neut % (Auto) 69.4 Lymph % (Auto) 22.5 [place]lee % (Auto) 6.7 Eos % (Auto) 0.9 Baso % (Auto) 0.3 Absolute Neuts (auto) 6.5 Absolute Lymphs (auto) 2.10 Nucleated RBC % 0 Sodium 139 Potassium 3.9 Chloride 101 Carbon Dioxide 25.7 Anion Gap 12 BUN 14 Creatinine 0.65 L Estim Creat Clear Calc 122.02 Est GFR (MDRD) Non-Af 106 BUN/Creatinine Ratio 21.4 H Glucose 101 H Lactic Acid 1.3 Calcium 9.5 Total Bilirubin 0.24 AST 16 ALT 8 Alkaline Phosphatase 141 H Troponin T High Sens 27 H Troponin T Hi Sens 2 Hr 26 H Total Protein 7.5 Albumin 3.4 Globulin 4.1 Albumin/Globulin Ratio 0.8 L Lipase 17 Radiography Diagnostic Testing: Clinical Impression(s) from Imaging Studies Abdomen/Pelvis CT 11/03/24 12:26 IMPRESSION: Left lung base pneumonia. No acute process identified in the abdomen or pelvis. Other findings as above. OVERALL FINAL ASSESSMENT: . LI-RADS is not meant to be used in patients <18 years or patients with cirrhosis due to congenital hepatic fibrosis or due to vascular disorders, because these patients have a lower chance of developing HCC. Reading [facility] Chest X-Ray 11/03/24 14:35 IMPRESSION: No acute process detected. Reading Location: [facility] 1 view chest x-ray obtained interpreted by myself as no evidence of infiltrate or pneumothorax or acute disease process. Radiology in agreement. EKG Initial EKG: Attestation: I personally reviewed and interpreted this EKG as follows: Comments: Sinus rhythm with rate of 70 bpm with no acute ST segment changes Discharge Plan Dx/Rx/DC Orders Clinical Impression: Acute UTI, Acute paraplegia, Nausea Disposition Disposition: Acute Care [facility]
--- NOTE | 2024-11-03 12:26 | CT_ITS ---
PROCEDURE: ABDOMEN/PELVIS W IV CONT ONLY N/A REASON FOR EXAM: NAUSEA, ABDOMINAL PAIN TECHNIQUE: Abdomen and pelvis CT with intravenous contrast. Coronal and Sagittal reconstruction series were provided. PATIENT PREPARATION: Per protocol ORAL CONTRAST TYPE: None. AMOUNT: mL CONTRAST: Isovue 370 VOLUME: 100 mL One or more dose reduction techniques were used (e.g., Automated exposure control, adjustment of the mA and/or kV according to patient size, use of iterative reconstruction technique. RADIATION DOSE SUMMARY: CTDlvol: 23.27, 17.57 and 12.89 mGy DLP: 1010.17 mGycm COMPARISON: CT exam 05 22 2022 FINDINGS: Lung bases: Patch of consolidation with air bronchograms is seen along the medial left lower lobe in the base.. Stent graft in the LAD. Liver: Unremarkable Gallbladder: Distended, no stones Spleen: Normal Pancreas: Normal Adrenals: Normal Kidneys: Subcentimeter cysts bilateral. No hydronephrosis. No nephrolithiasis. Bladder: Suprapubic Lima catheter. Reproductive Organs: Unremarkable. Bowel: Normal caliber and appearance. No obstruction. Appendix: Not identified. No inflammatory process identified in the right lower quadrant. Question of surgical clip in the cecum due to appendectomy. Correlate with surgical history. Lymph nodes: No adenopathy Vasculature: Unremarkable. Peritoneum / Retroperitoneum: No free fluid or free air. Bones: No aggressive lesions. Facet arthritis. Anterior bridging osteophyte L3-L4 CT/Abdomen/Pelvis W IV Cont ONLY IMPRESSION: Left lung base pneumonia. No acute process identified in the abdomen or pelvis. Other findings as above. OVERALL FINAL ASSESSMENT: . LI-RADS is not meant to be used in patients <18 years or patients with cirrhosi s due to congenital hepatic fibrosis or due to vascular disorders, because these patients have a lower chance of developing HC C. Reading [facility]
[2024-11-03] MEDS: 0.9% Normal Saline (1000mL) 1,000 ML 150 ML IV (12:33)
[2024-11-03] MEDS: Ondansetron 4 MG/2 ML Vial IV (12:33)
[2024-11-03 12:40] LABS: Absolute Neutrophil Count 6.5 X10^3/uL (2.0-7.7); Basophil# 0.03 X10^3/uL; Basophil% 0.3 % (0-1); Eosinophil# 0.08 X10^3/uL; Eosinophils% 0.9 % (0-5); Hematocrit 42.4 % (40-54); Hemoglobin 13.5 g/dL (13.0-16.5); Lymphocyte % 22.5 % (19-41); Mean Corp Hgb Conc 31.8 g/dL (32-36); Mean Corpuscular Volume 78.7 fL (80-94); Monocyte# 0.63 X10^3/uL; Monocyte% 6.7 % (0-10); NRBC Flagged by Analyzer 0 % (0-5); Neutrophil # 6.48 X10^3/uL (2.7-7.7); Neutrophil % 69.4 % (47-70); Platelet Count 364 K/mm3 (150-450); RBC Distribution Width CV 18.3 % (11.6-14.6); RBC Distribution Width SD 50.6 fl (35.1-43.9); Red Blood Count 5.39 M/mm3 (4.6-6.2); White Blood Count 9.3 K/mm3 (4.4-11.0)
[2024-11-03 13:04] LABS: ALB/GLOB Ratio 0.8 RATIO (0.9-2.4); AST(SGOT) 16 U/L (<=37); Alanine Aminotransfer ALT/SGPT 8 U/L (<=46); Albumin, Serum 3.4 g/dL (3.4-4.8); Alkaline Phosphatase 141 U/L (40-129); Anion Gap 12 (5-15); BUN 14 mg/dL (4-19); BUN/Creat Ratio 21.4 RATIO (10-20); Calcium,Total 9.5 mg/dL (7.6-11.0); Carbon Dioxide 25.7 mmol/L (21.0-32.0); Chloride 101 mmol/L (98-108); Creatinine, Serum 0.65 mg/dL (0.70-1.20); EST Glomerular Filtration Rate 106 (>60); Estimated Creatinine Clearance 122.02 ml/min (50-250); Globulin 4.1 g/dL (2.2-4.2); Glucose 101 mg/dL (70-99); Lipase 17 U/L (13-75); Potassium 3.9 mmol/L (3.3-5.1); Protein, Total 7.5 g/dL (5.9-8.4); Sodium Level 139 mmol/L (133-145); Total Bilirubin 0.24 mg/dL (0.00-1.30); Troponin T High Sensitivity 27 ng/L (<=22)
[2024-11-03 13:05] LABS: Lactic Acid 1.3 mmol/L (0.0-2.0)
--- NOTE | 2024-11-03 14:35 | RAD_ITS ---
PROCEDURE: CHEST 1 VIEW (PORTABLE) 11/03/2024 REASON FOR EXAM: WEAKNESS TECHNIQUE: Frontal view of the chest. COMPARISON: Chest radiograph 07/14/2024 FINDINGS: Hardware: EKG lead wires Heart: Normal size Lungs: Clear Bones: No aggressive lesions identified Other: RAD/Chest 1 View (Portable) IMPRESSION: No acute process detected. Reading [facility]
[2024-11-03 15:25] LABS: Troponin T High Sens 2 HR 26 ng/L (<=22)
--- NOTE | 2024-11-03 16:21 | PCM.HP.STD ---
HPI - General General Date of Admission: 11/03/24 Date of Service: 11/03/24 Chief Complaint: Nausea/generalized weakness HPI Narrative KALEN GAVIN, is a 64 M who presented to the emergency department at [facility] with nausea and generalized weakness slightly. Patient reportedly not been feeling well for about 2 days. He was seen in the emergency department on the evening of 11/01/2024 and was diagnosed with urinary tract infection based on UA and was started on antibiotics with cefdinir. He has a chronic indwelling suprapubic catheter and it was changed at that time. Culture was sent. Unfortunately, a culture has resulted with Pseudomonas that is fairly resistant organism. It is sensitive to cefepime, Zosyn and meropenem but is resistant to quinolones. He also has sacral and buttock decubiti that are chronic and do not appear infected at this time. They just have not been healing. Since he was still feeling worse despite antibiotics he returned to the emergency department for further evaluation. Vital signs at the time of presentation showed temperature of 98.2, heart rate 78, blood pressure 157/100, respiratory rate 17 oxygen saturations were 97% on room air. CBC shows a normal white count, hemoglobin and platelet count. There is no left shift. Chemistry panel is unremarkable. Lactic acid was normal at 1.3. His troponin was initially mildly elevated at 27 with a delta of 26. This does not appear to be clinically significant. Chest x-ray is unremarkable. CT of the abdomen pelvis showed. A possible left lower lobe infiltrate however there does appear to be a small pleural effusion and this looks more like compressive atelectasis and no other acute findings in the abdomen. ED physician was initially concerned about pneumonia and treated with ceftriaxone azithromycin however patient was not having any clinical signs or symptoms of pneumonia with a normal white count no fevers. I suspect overall this is more likely related to his urinary tract infection which is with an organism that is resistant to the antibiotic he was discharged with. He will be admitted and placed on IV antibiotics with a consultation infectious disease as patient and family felt he was too weak to go home at this time. They were educated that this would be observation with likely discharge tomorrow after infectious disease consultation. [facility] Medical History Sacral decubitus ulcer, stage III Atherosclerotic heart disease of [place] coronary artery without angina pectoris Depression Chronic indwelling [place] catheter Heavy alcohol use Anxiety and depression Acute paralytic poliomyelitis, wild virus, indigenous Osteomyelitis of right femur Transverse myelitis Neurogenic bladder Benign essential hypertension Home Medications ?Medication ?Instructions ?Recorded ?Last Taken ?Type baclofen 20 mg tablet 20 mg PO TID muscle spasms 02/26/13 06/27/21 History multivitamin with folic acid 400 1 tab PO LUNCH supplemeny 02/26/13 06/27/21 History mcg tablet (Thera) gabapentin 100 mg capsule 300 mg PO TID neuropathy 04/19/13 06/27/21 History nortriptyline 50 mg capsule 100 mg PO QHS anxiety 01/19/19 06/26/21 History ascorbic acid (vitamin C) 1,000 mg 1 g PO DAILY Check with primary 06/28/21 Unknown History tablet (Vitamin C) doctor cholecalciferol (vitamin D3) 50 50 mcg PO DAILY Check with primary 06/28/21 Unknown History mcg (2,000 unit) capsule (Vitamin doctor D3) docusate sodium 100 mg capsule 100 mg PO BID Check with primary 06/28/21 Unknown History doctor loratadine 10 mg capsule 10 mg PO DAILY Check with primary 06/28/21 Unknown History doctor venlafaxine 75 mg tablet 150 mg PO DAILY Check with primary 06/28/21 Unknown History doctor apixaban 2.5 mg tablet (Eliquis) 2.5 mg PO BID 30 days #60 tabs 06/29/21 Unknown Rx Held on 09/11/24. Instructions: not confirmed aspirin 81 mg tablet,delayed 81 mg PO BREAKFAST heart health 30 06/29/21 Unknown Rx release days #30 tabs carvedilol 6.25 mg tablet 6.25 mg PO BID heart 30 days #60 06/29/21 Unknown Rx tabs ondansetron 4 mg disintegrating 4 mg PO Q8H PRN nausea and 06/06/22 Unknown Rx tablet vomiting #10 tabs rosuvastatin 10 mg tablet (Crestor) 20 mg PO DAILY 06/16/24 Unknown History doxycycline monohydrate 100 mg 100 mg PO BID 10 days #20 CAPSULES 07/13/24 Unknown Rx capsule buprenorphine 20 mcg/hour weekly 1 patch transdermal Q7D 09/11/24 Unknown History transdermal patch cefdinir 300 mg capsule 300 mg PO Q12H #14 caps 11/01/24 Unknown Rx Allergy/AdvReac Type Severity Reaction Status Date / Time No Known Allergies Allergy Verified 11/03/24 11:31 Family History Father CVA (cerebral vascular accident) Heart disease Myocardial infarction Surgical History History of coronary artery stent placement (06/28/21) History of femoral derotational osteotomy History of appendectomy History of suprapubic catheter Hx of colostomy Colostomy in place Social History (Updated 11/03/24 @ 16:[address] Milady Tilley DO) household members: spouse housing: house current occupational status: retired Smoking Status: Former smoker alcohol intake: former substance use type: marijuana ROS Constitutional Constitutional: Reports chills, malaise and weakness; Denies anorexia, change in weight, fatigue, fever(s), night sweats or other Eyes Eyes: Denies blurry vision, change in eye color, change in vision, discharge from eye(s), double vision, erythema, eye pain, loss of vision or other ENT HEENT: Denies abnormal hearing, dysphagia, ear pain, epistaxis, headache(s), hearing loss, nasal congestion, nasal discharge, post nasal drip, sinus pressure, sore throat or other Cardiovascular Cardiovascular: Denies chest pain, claudication, dyspnea on exertion, edema, lightheadedness, orthopnea, palpitations, paroxysmal nocturnal dyspnea, rapid heart rate, syncope or other Respiratory/Chest Respiratory/Chest: Denies cough, dyspnea, excessive phlegm production, hemoptysis, productive cough, shortness of breath at rest, shortness of breath with exertion, wheezing or other Gastrointestinal Gastrointestinal: Reports nausea, vomiting and other Details: suprapubic pain ; Denies abdominal pain, coffee ground emesis, constipation, diarrhea, dyspepsia, hematemesis, hematochezia, loose stools or melena Genitourinary Genitourinary: Reports other Details: chronic suprapubic catheter ; Denies burning urination, difficulty urinating, dysuria, hematuria, nocturia, urinary frequency, urinary hesitancy, urinary incontinence or urinary urgency Musculoskeletal Musculoskeletal: Denies arthralgias, back pain, joint pain, joint stiffness, joint swelling, myalgias, neck pain or other Neurologic Neurologic: Reports focal weakness and other Details: wheelchair bound at baseline ; Denies abnormal gait Vital Signs Vital Signs Vital Signs: 11/03/24 11:28 11/03/24 11:33 11/03/24 12:31 Temperature 98.2 F 98.2 F Temperature Source Oral Oral Pulse Rate 78 69 Respiratory Rate 17 12 Respiratory Pattern Normal Blood Pressure 157/100 H 138/89 H Blood Pressure Mean 119 105 Pulse Ox 97 98 Oxygen Delivery Method Room Air Room Air 11/03/24 13:00 11/03/24 14:00 11/03/24 15:00 Temperature 98.4 F 98.1 F 97.9 F Temperature Source Oral Oral Oral Pulse Rate 66 69 79 Respiratory Rate 14 14 15 Respiratory Pattern Blood Pressure 182/88 H 159/95 H 138/72 H Blood Pressure Mean 119 116 94 Pulse Ox 99 100 97 Oxygen Delivery Method Room Air Room Air Room Air 11/03/24 16:00 Temperature 97.6 F L Temperature Source Oral Pulse Rate 71 Respiratory Rate 15 Respiratory Pattern Blood Pressure 161/88 H Blood Pressure Mean 112 Pulse Ox 97 Oxygen Delivery Method Room Air Weight Weight: 82.8 kg Body Mass Index (BMI) 27.7 Physical Exam Const alert, oriented x3, no apparent distress and average body habitus; Negative for healthy appearing Constitutional Narrative: Relatively bedbound, upper middle-aged, white male, lying in bed, does not appear toxic and currently appears comfortable General Appearance: cooperative HEENT normocephalic, head/scalp atraumatic and hearing grossly normal bilaterally HEENT Narrative: Mucous membranes are slightly dry, dentition is fair, no thrush Eyes conjunctivae normal Eyes Narrative: No scleral icterus Resp normal respiratory effort, no retractions, no use of accessory muscles and clear to auscultation bilaterally Auscultation: Negative for rales, rhonchi or wheezes Cardio regular rate, regular rhythm, S1 normal heart sound, S2 normal heart sound, no murmurs, no rub, no gallops and no clicks GI normal to inspection, nondistended, normoactive bowel sounds, soft to palpation and non-tender Extremity Extremity Narrative: Chronic bilateral lower extremity edema due to immobility that is 2+ in nature, no sinus or clubbing Skin No no wounds, no jaundice, no petechiae and no mottling Skin Narrative: Decubitus ulcers bilateral buttock and sacrum, skin is pale Neuro oriented x3, No moves all extremities and No no focal motor deficits Neuro Narrative: Bilateral lower extremity paraplegia with decreased sensation Speech: speech normal Psych Psych Narrative: Affect is slightly flat but appropriate for situation, eye contact is good and patient tracks appropriately Results Lab / Micro Data 11/03/24 12:35 11/03/24 12:35 Labs: Laboratory Results - last 24 hr 11/03/24 12:35: WBC 9.3, RBC 5.39, Hgb 13.5, Hct 42.4, MCV 78.7 L, MCH 25.0 L, MCHC 31.8 L, RDW Std Deviation 50.6 H, RDW Coeff of Bhanu 18.3 H, Plt Count 364, MPV 9.0, Immature Gran % (Auto) 0.200, Neut % (Auto) 69.4, Lymph % (Auto) 22.5, Alfalfa % (Auto) 6.7, Eos % (Auto) 0.9, Baso % (Auto) 0.3, Absolute Neuts (auto) 6.5, Absolute Lymphs (auto) 2.10, Nucleated RBC % 0, Sodium 139, Potassium 3.9, Chloride 101, Carbon Dioxide 25.7, Anion Gap 12, BUN 14, Creatinine 0.65 L, Estim Creat Clear Calc 122.02, Est GFR (MDRD) Non-Af 106, BUN/Creatinine Ratio 21.4 H, Glucose 101 H, Lactic Acid 1.3, Calcium 9.5, Total Bilirubin 0.24, AST 16, ALT 8, Alkaline Phosphatase 141 H, Troponin T High Sens 27 H, Total Protein 7.5, Albumin 3.4, Globulin 4.1, Albumin/Globulin Ratio 0.8 L, Lipase 17 11/03/24 14:30: Troponin T Hi Sens 2 Hr 26 H Imaging Radiology Impression Abdomen/Pelvis CT 11/03/24 12:26 IMPRESSION: Left lung base pneumonia. No acute process identified in the abdomen or pelvis. Other findings as above. OVERALL FINAL ASSESSMENT: . LI-RADS is not meant to be used in patients <18 years or patients with cirrhosis due to congenital hepatic fibrosis or due to vascular disorders, because these patients have a lower chance of developing HCC. Reading Location: [facility] Chest X-Ray 11/03/24 14:35 IMPRESSION: No acute process detected. Reading [facility] Assessment & Plan Assessment/Plan (1) Pseudomonas urinary tract infection: (2) Debility: (3) Nausea: (4) Chronic suprapubic catheter: (5) Failure of outpatient treatment: PLAN: Plan Complicated Pseudomonas UTI - Organism shows resistance to quinolones and patient and family wanted to be admitted - Will start cefepime and consult ID for assistance with antibiotics at discharge - Suprapubic catheter was changed on 11/01/2024 - Outpatient failure of treatment is related to sensitivity of the organism Nausea - Suspect secondary to above - As needed antiemetics and IV fluids - Should improve with treatment of the above infection Generalized weakness and debility with chronic paraplegia - Like related to acute infection - Will consult physical therapy and Occupational Therapy for assistance during hospitalization - Case management/social work consultation for assistance with discharge planning Chronic sacral and buttock pressure ulcers - Will start vitamin C and zinc for wound healing - Add Mamadou to assist with wound healing - Recommend outpatient follow-up at the wound center and with Dr. Masterson - Patient has diverting ostomy - Consult wound care CAD/essential hypertension/hyperlipidemia - s/p proximal LAD stent (2021) - Continue aspirin - Continue carvedilol - Continue rosuvastatin for therapeutic substitution Chronic paraplegia secondary to transverse myelitis - Patient has neurogenic bladder with suprapubic catheter - Condition is stable - Continue home baclofen - Continue home gabapentin - Continue home buprenorphine Chronic constipation - Continue home docusate - As needed available if needed Anxiety/depression - Continue home antidepressants DVT prophylaxis - Currently listed that he is on apixaban however this is not finalized - If not taking apixaban will start Lovenox 40 subcu daily CODE STATUS - full code Charges/Coding Visit Charges Inpatient E&M: 75499 Init Hosp L2
--- OUTSIDE RECORDS SUMMARY | 2024-11-03 16:24 | XMS RPT_ITS | CCD ---
Author Organization [facility] Care Team Providers Care Spray Dyer Name Role Phone PROVIDER, UNKNOWN Unavailable Unavailable No, PCP Unavailable Unavailable Gajulapalli, Chivo Unavailable Unavailable [facility] Unavailable Unavail able [facility] Unavailable Unavail able [facility] Unavailable Unavail able [facility] Unavailable Unavail able [facility] Unavailable Unavail able [facility] [place] Primary Care Provider UnavailDr. Adan Santa Emergency Provider Dr. Lorraine Quinonez Admit Provider Dr. Lorraine Quinonez Referring Provider Dr. Zackary Costello Other Provider Dr. John Ponce Other Provider Dr. Alberto Candelario Attending Provider Dr. John Ponce Attending Provider JAMEY HUYNH Primary Care UnavailJamey Weiss MD Primary Care [place] Primary Care Provider UnavailDr. Alma Rosa Isaacs DO Emergency Provider Dr. Ronak Quiroz DO Admit Provider Unavail able Dr. Ronak Quiroz DO Other Provider Unavail able Dr. Darian Arceo MD Attending Provider Dr. Maulik Jenkins MD Other Provider [place] [place] Primary Care Provider Dr. Darian Guajardo MD Other Provider Dr. Christian Merlos MD Emergency Provider Dr. Richie Borden DO Attending Provider Andes DO, Dr. Richie Emergency Provider Oscar NARVAEZ, Dr. Gómez Attending Provider [phone] Oscar NARVAEZ, Dr. Gómez Emergency Provider Ray NARVAEZ, Dr. Arellano Emergency Provider [phone] [facility], [place] Primary Care Provider Unavailaugustin Bell DO, Dr. Arellano Attending Provider [phone] Kathy DO, Dr. Holcomb Emergency Provider Hema [facility]-Baptiste [facility] Rico Moore Attending Un[facility] Ronak Quiroz Consulting [facility] Ronak Quiroz Admitting Unavailable Ronak Quiroz Attending Unavailable Darian Arceo Consulting Unavailable Adis, Darian Attending Unavailable Maulik Jenkins Consulting Unavailable Ronak Quiroz Consulting Unavailable Ronak Quiroz Admitting [facility]available [facility] Ronak Quiroz Attending Unavailable Adis, Darian Attending Unavailable Darian Arceo Consulting [facility] Zhang Chavez Attending [facility] Richie Borden Attending [facility] Unavailable Alma Rosa Pedroza Attending Unavailable Ronak Quiroz Consulting [facility] Ronak Quiroz Admitting Unavailable Darian Arceo Attending Unavailable Maulik Jenkins Consulting [facility] Unavailable Ronak Quiroz Consulting Unavailable Ronak Quiroz Admitting Unavailable Darian Arceo Attending [facility]available [facility] Unavailable Adan Bell Attending Unavailable Medications Current Medications Medication Drug Class(es) [...] 19, 2013 1:00am take [address] [facility] three times daily gabapentin (NEURONTIN) 400 mg [...] DAILY NEEDED as needed for Mod-Severe Pain (4-10) March 16, 2017 12:00am March 22, 2017 [...] 03, 2015 1:00am September 07, 2015 9:19am Zfhep-Vern-Rfmsk-Collag-Mv-M in (Mamadou (With Collagen)) 1 PACKET Packet (6 sources) Start: 03-22-2017 End: 05-01-2017 take 1 dose by mouth twice daily at mealtime Gozwj-Sgql-Guavl-Cwjpag-Fz-Nqr (Mamadou (With Collagen)) 1 PACKET Packet Discontinued 1 PACKET PO TWICE DAILY WITH MEALS March 22, 2017 1:37pm May 01, 2017 12:37pm Start: 03-22-2017 End: 05-01-2017 take 1 dose by mouth twice daily at mealtime Dojjb-Xopj-Dyamk-Kzhkjm-Rd-Vfw (Mamadou (W ith Collagen)) 1 PACKET Packet Discontinued 1 NMA PO TWICE DAILY WITH MEALS March 22, 2017 12:00am May 01, 2017 12:37pm Start: 03-22-2017 End: 05-01-2017 take 1 dose by mouth twice daily at mealtime Iajww-Bezq-Icmxw-Ekgdld-Xc-Lng (Mamadou (W ith Collagen)) 1 PACKET Packet Discontinued 1 PACKET PO TWICE DAILY WITH MEALS March 22, 2017 12:00am May 01, 2017 12:37pm Start: 03-22-2017 End: 05-01-2017 take 1 dose by mouth twice daily at mealtime Rwtzq-Fbji-Qwupw-Ktnyuq-Jp-Drq (Mamadou (W ith Collagen)) 1 PACKET Packet [...] HOURS NEEDED as needed for Severe Pain (6-10) March 22, 2017 1:37pm March 24, 2017 9:03am Start: 03-22-2017 End: 03-24-2017 take 10 mg by mouth every six hours as needed Oxycodone Discontinued 10 MG PO EVERY 6 HOURS NEEDED March 22, 2017 1:37pm March 24, 2017 9:03am piperacillin 3000 mg / tazobactam 375 mg injection (8 sources) Penicillin-class Antibacterial, beta Lactamase Inhibitor Start: 06-14-2024 End: 06-19-2024 Ubhrfnpfpzyu-Hgevnrfjcg-Fjot rs (Zosyn In Dextrose (Iso-Osm)) 3.375 gram/50 mL piggyback Discontinued 3.375 g IV Q8H June 14, 2024 1:00am June 19, 2024 12:42pm dx: pseudomonas infection. Midline care per protocol. Start: 03-16-2017 End: 05-01-2017 take 3.375 g intravenously every six hours Tdvjjkoajvgg-Hytkinpjcp-Jzgxoe (Zosyn) 3.375 GM/50 ML Ml Discontinued 3.375 [...] Coronary atherosclerosis; Translations: [Atherosclerotic heart disease of [place] coronary artery without angina pectoris] 06-28-2021 Chronic [...] Test Name Value Interpretation Reference Range Facility Abdomen/Pelvis W IV Cont ONL Yon 11-03-2024 Abdomen/Pelvis W IV Cont ONLY [facility] Imaging Services [address] [place] [address] Abdomen/Pelvis W IV Cont ONLY MR#: [id number] Acct: [id number] Name: BAUTISTA RUFFIN Rep #: [id number] : 1960 M 64 From: Rasheed Bruner DO PCP: ID Hospital Status: REG ER Study: Abdomen/Pelvis W IV Cont ONLY Date of Exam: Exam# [id number] Ordering Dr: Alma Rosa Pedroza DO PROCEDURE: ABDOMEN/PELVIS W IV CONT ONLY N/A REASON FOR EXAM: NAUSEA, ABDOMINAL PAIN TECHNIQUE: Abdomen and pelvis CT with intravenous contrast. Coronal and Sagittal reconstruction series were provided. PATIENT PREPARATION: Per protocol ORAL CONTRAST TYPE: None. AMOUNT: mL CONTRAST: Isovue 370 VOLUME: 100 mL One or more dose reduction techniques were used (e.g., Automated exposure control, adjustment of the mA and/or kV according to patient size, use of iterative reconstruction technique. RADIATION DOSE SUMMARY: CTDlvol: 23.27, 17.57 and 12.89 mGy DLP: 1010.17 mGycm COMPARISON: CT exam 05 22 2022 FINDINGS: Lung bases: Patch of consolidation with air bronchograms is seen along the medial left lower lobe in the base.. Stent graft in the LAD. Liver: Unremarkable Gallbladder: Distended, no stones Spleen: Normal Pancreas: Normal Adrenals: Normal Kidneys: Subcentimeter cysts bilateral. No hydronephrosis. No nephrolithiasis. Bladder: Suprapubic Lima catheter. Reproductive Organs: Unremarkable. Bowel: Normal caliber and appearance. No obstruction. Appendix: Not identified. No inflammatory process identified in the right lower quadrant. Question of surgical clip in the cecum due to appendectomy. Correlate with surgical history. Lymph nodes: No adenopathy Vasculature: Unremarkable. Peritoneum / Retroperitoneum: No free fluid or free air. Bones: No aggressive lesions. Facet arthritis. Anterior bridging osteophyte L3-L4 CT/Abdomen/Pelvis W IV Cont ONLY IMPRESSION: Left lung base pneumonia. No acute process identified in the abdomen or pelvis. Other findings as above. OVERALL FINAL ASSESSMENT: . LI-RADS is not meant to be used in patients <18 years or patients with cirrhosis due to congenital hepatic fibrosis or due to vascular disorders, because these patients have a lower chance of developing HCC. Reading Location: [facility] CC: Dr. Alma Rosa Pedroza, DO; [facility] [employer] Supervisor: Signed Normal [facility] CBC W/Diff, Automatedon 06-0 Absolute Lymph 2.10 X10 3/uL Normal 0.83-4.51 [facility] Comment on above: Performed By: #### L 503.6005, L500.4050, L100.0100, L501.2450, L501.4021 ####[facility] [address] [place], [address] Absolute Neut 6.5 X10 3/uL Normal 2.0-7.7 [facility] Comment on above: Performed By: #### L 503.6005, L500.4050, L100.0100, L501.2450, L501.4021 ####[facility] [address] [place], [address] Basophils/100 WBC (Bld) 0.3 % Normal 0-1 [facility] Comment on above: Performed By: #### L 503.6005, L500.4050, L100.0100, L501.2450, L501.4021 ####[facility] [address] [place], [address] Eosinophils/100 WBC (Bld) 0.9 % Normal 0-5 [facility] Comment on above: Performed By: #### L 503.6005, L500.4050, L100.0100, L501.2450, L501.4021 ####[facility] [address] [place], [address] Erythrocyte distribution width (RBC) [Ratio] 18.3 % High 11.6-14.6 [facility] Comment on above: Performed By: #### L 503.6005, L500.4050, L100.0100, L501.2450, L501.4021 ####[facility] [address] [place], [address] Hematocrit (Bld) [Volume fraction] 42.4 % Normal 40-54 [facility] Comment on above: Performed By: #### L 503.6005, L500.4050, L100.0100, L501.2450, L501.4021 ####[facility] [address] [place], [address] Hemoglobin (Bld) [Mass/Vol] 13.5 g/dL Normal 13.0-16. 5 [facility] Comment on above: Performed By: #### L 503.6005, L500.4050, L100.0100, L501.2450, L501.4021 ####[facility] [address] [place], [address] IG% 0.200 Normal 0.0-0.9 [facility] Comment on above: Result Comment: IG% - Immature Granulocytes (promyelocytes, myelocytes and metamyelocytes) > 1% indicates that a LEFT SHIFT is Present. Performed By: #### L 503.6005, L500.4050, L100.0100, L501.2450, L501.4021 ####[facility] [address] [place], [address] Lymphocytes/100 WBC (Bld) 22.5 % Normal 19-41 [facility] Comment on above: Performed By: #### L 503.6005, L500.4050, L100.0100, L501.2450, L501.4021 ####[facility] [address] [place], [address] MCH (RBC) [Entitic mass] 25.0 pg Low 27.0-32.0 [facility] Comment on above: Performed By: #### L 503.6005, L500.4050, L100.0100, L501.2450, L501.4021 ####[facility] [address] [place], [address] MCHC (RBC) [Mass/Vol] 31.8 g/dL Low 32-36 [facility] Comment on above: Performed By: #### L 503.6005, L500.4050, L100.0100, L501.2450, L501.4021 ####[facility] [address] [place], [address] MCV (RBC) [Entitic vol] 78.7 fL Low 80-94 [facility] Comment on above: Performed By: #### L 503.6005, L500.4050, L100.0100, L501.2450, L501.4021 ####[facility] [address] [place], [address] Monocytes/100 WBC (Bld) 6.7 % Normal 0-10 [facility] Comment on above: Performed By: #### L 503.6005, L500.4050, L100.0100, L501.2450, L501.4021 ####[facility] [address] [place], [address] Neutrophils/100 WBC (Bld) 69.4 % Normal 47-70 [facility] Comment on above: Performed By: #### L 503.6005, L500.4050, L100.0100, L501.2450, L501.4021 ####[facility] [address] [place], [address] Nucleated RBC (Bld) [#/Vol] 0 10*3/uL Normal 0-5 [facility] Comment on above: Performed By: #### L 503.6005, L500.4050, L100.0100, L501.2450, L501.4021 ####[facility] [address] [place], [address] Platelet mean volume (Bld) [Entitic vol] 9.0 fL Normal 6.2-12.0 [facility] Comment on above: Performed By: #### L 503.6005, L500.4050, L100.0100, L501.2450, L501.4021 ####[facility] [address] [place], [address] Platelets (Bld) [#/Vol] 364 10*3/uL Normal 150-450 [facility] Comment on above: Performed By: #### L 503.6005, L500.4050, L100.0100, L501.2450, L501.4021 ####[facility] [address] [place], [address] RBC (Bld) [#/Vol] 5.39 10*6/uL Normal 4.6-6.2 [facility] Comment on above: Performed By: #### L 503.6005, L500.4050, L100.0100, L501.2450, L501.4021 ####[facility] [address] [place], [address] RDW SD 50.6 fl High 35.1-43.9 [facility] Comment on above: Performed By: #### L 503.6005, L500.4050, L100.0100, L501.2450, L501.4021 ####[facility] [address] [place], [address] WBC (Bld) [#/Vol] 9.3 10*3/uL Normal 4.4-11.0 [facility] Comment on above: Performed By: #### L 503.6005, L500.4050, L100.0100, L501.2450, L501.4021 ####[facility] [address] [place], [address] Chest 1 View (Portable)on Chest 1 View (Portable) [facility] Imaging Services [address] [place] [address] Chest 1 View (Portable) MR#: [id number] Acct: [id number] Name: BAUTISTA RUFFIN Rep #: [id number] : 1960 M 64 From: Rasheed Bruner DO PCP: [facility] Status: REG ER Study: Chest 1 View (Portable) Date of Exam: 11/03/24 Exam# [id number] Ordering Dr: Alma Rosa Pedroza DO PROCEDURE: CHEST 1 VIEW (PORTABLE) 11/03/2024 REASON FOR EXAM: WEAKNESS TECHNIQUE: Frontal view of the chest. COMPARISON: Chest radiograph 07/14/2024 FINDINGS: Hardware: EKG lead wires Heart: Normal size Lungs: Clear Bones: No aggressive lesions identified Other: RAD/Chest 1 View (Portable) IMPRESSION: No acute process detected. Reading Location: [facility] CC: Dr. Alma Rosa Pedroza DO; [facility] [employer] Supervisor: Signed Normal [facility] Comprehensive Metabolic Prof ilon 11-03-2024 Albumin [Mass/Vol] 3.4 g/dL Normal 3.4-4.8 [facility] Comment on above: Performed By: #### L 503.6005, L500.4050, L100.0100, L501.2450, L501.4021 ####[facility] [address] [place], [address] Albumin/Globulin [Mass ratio] 0.8 {ratio} Low 0.9-2.4 [facility] Comment on above: Performed By: #### L 503.6005, L500.4050, L100.0100, L501.2450, L501.4021 ####[facility] [address] [place], [address] ALK PHOS 141 U/L High 40-129 [facility] Comment on above: Performed By: #### L 503.6005, L500.4050, L100.0100, L501.2450, L501.4021 ####[facility] [address] [place], [address] ALT [Catalytic activity/Vol] 8 U/L Normal <=46 [facility] Comment on above: Performed By: #### L 503.6005, L500.4050, L100.0100, L501.2450, L501.4021 ####[facility] [address] [place], [address] AST [Catalytic activity/Vol] 16 U/L Normal <=37 [facility] Comment on above: Performed By: #### L 503.6005, L500.4050, L100.0100, L501.2450, L501.4021 ####[facility] [address] [place], [address] Bilirubin [Mass/Vol] 0.24 mg/dL Normal 0.00-1.30 [facility] Comment on above: Performed By: #### L 503.6005, L500.4050, L100.0100, L501.2450, L501.4021 ####[facility] [address] [place], [address] BUN/CRE 21.4 RATIO High 10-20 [facility] Comment on above: Performed By: #### L 503.6005, L500.4050, L100.0100, L501.2450, L501.4021 ####[facility] [address] [place], [address] Calcium [Mass/Vol] 9.5 mg/dL Normal 7.6-11.0 [facility] Comment on above: Performed By: #### L 503.6005, L500.4050, L100.0100, L501.2450, L501.4021 ####[facility] [address] [place], [address] Chloride [Moles/Vol] 101 mmol/L Normal 98-108 [facility] Comment on above: Performed By: #### L 503.6005, L500.4050, L100.0100, L501.2450, L501.4021 ####[facility] [address] [place], [address] CO2 [Moles/Vol] 25.7 mmol/L Normal 21.0-32.0 [facility] Comment on above: Performed By: #### L 503.6005, L500.4050, L100.0100, L501.2450, L501.4021 ####[facility] [address] [place], [address] Creatinine [Mass/Vol] 0.65 mg/dL Low 0.70-1.20 [facility] Comment on above: Performed By: #### L 503.6005, L500.4050, L100.0100, L501.2450, L501.4021 ####[facility] [address] [place], [address] ECRCL 122.02 ml/min Normal 50-250 [facility] Comment on above: Performed By: #### L 503.6005, L500.4050, L100.0100, L501.2450, L501.4021 ####[facility] [address] [place], [address] GAP 12 Normal 5-15 [facility] Comment on above: Performed By: #### L 503.6005, L500.4050, L100.0100, L501.2450, L501.4021 ####[facility] [address] [place], [address] GFR/1.73 sq M.predicted among non-blacks MDRD (S/P/Bld) [Vol rate/Area] 106 mL/min/{1.73_m2} Normal >60 [facility] Comment on above: Result Comment: mL/m in/1.73m2 CKD-EPI Creatinine Equation (2020) Performed By: #### L 503.6005, L500.4050, L100.0100, L501.2450, L501.4021 ####[facility] [address] [place], [address] Globulin (S) [Mass/Vol] 4.1 g/dL Normal 2.2-4.2 [facility] Comment on above: Performed By: #### L 503.6005, L500.4050, L100.0100, L501.2450, L501.4021 ####[facility] [address] [place], [address] Glucose [Mass/Vol] 101 mg/dL High 70-99 [facility] Comment on above: Performed By: #### L 503.6005, L500.4050, L100.0100, L501.2450, L501.4021 ####[facility] [address] [place], [address] Potassium [Moles/Vol] 3.9 mmol/L Normal 3.3-5.1 [facility] Comment on above: Performed By: #### L 503.6005, L500.4050, L100.0100, L501.2450, L501.4021 ####[facility] [address] [place], [address] Sodium [Moles/Vol] 139 mmol/L Normal 133-145 [facility] Comment on above: Performed By: #### L 503.6005, L500.4050, L100.0100, L501.2450, L501.4021 ####[facility] [address] [place], [address] T PROT 7.5 g/dL Normal 5.9-8.4 [facility] Comment on above: Performed By: #### L 503.6005, L500.4050, L100.0100, L501.2450, L501.4021 ####[facility] [address] [place], [address] Urea nitrogen [Mass/Vol] 14 mg/dL Normal 4-19 [facility] Comment on above: Performed By: #### L 503.6005, L500.4050, L100.0100, L501.2450, L501.4021 ####[facility] [address] [place], [address] L499.0042on 11-03-2024 Trop T High Sen 26 ng/L High <=22 [facility] Comment on above: Performed By: #### L 499.0042 ####[facility] [address] [place], [address] L501.4021on 11-03-2024 Trop T High Sen 27 ng/L High <=22 [facility] Comment on above: Performed By: #### L 503.6005, L500.4050, L100.0100, L501.2450, L501.4021 ####[facility] [address] [place], [address] Lactic Acidon 11-03-2024 Lactate [Moles/Vol] 1.3 mmol/L Normal 0.0-2.0 [facility] Comment on above: Order Comment: Y Performed By: #### L 503.6005, L500.4050, L100.0100, L501.2450, L501.4021 ####[facility] [address] [place], [address] Lipaseon 11-03-2024 Lipase [Catalytic activity/Vol] 17 U/L Normal 13-75 [facility] Comment on above: Result Comment: Siri anaya note: LIPASE revised reference range effective 22. New Lipase methodology. Expected to produce lower values than the previous assay method. NEW Reference Range: 13 - 75 U/L Performed By: #### L 503.6005, L500.4050, L100.0100, L501.2450, L501.4021 ####[facility] [address] [place], [address] Urine Cultureon 11-03-2024 URC Additional sensitivi ty to follow. Urine Culture Pseudomonas aeruginosa Wishon Count >100,000 Pseudomonas aeruginosa: REACTION Cefepime Islt HARMAN 4 Ciprofloxacin Islt HARMAN >=4 R levoFLOXacin Islt HARMAN >=8 R Meropenem Islt HARMAN 2 S Pip+Tazo Islt HARMAN <=4 S Normal [facility] Comment on above: Performed By: #### L 500.3400, L501.2450, L100.0100, L500.2500, L501.4020, L300.8000 #### [facility] [address] [place], [place], [id number] Amorphous sediment detection in urine sediment by light microscopyOrdered By: Zhang Chavez on 11-01-2024 Amorphous sediment LM Ql (Urine sed) 1+ [facility] Bilirubin Test strip Ql (U)O rdered By: Zhang Chavez on 11-01-2024 Bilirubin Ql (U) Negative Negative [facility] Emergency Department Summary on 11-01-2024 Emergency Department Summary [facility] Medical Records Department [address] [place] [address] Emergency Department Summary 11/01/24 MR#: [id number] Acct: [id number] Name: BAUTISTA RUFFIN Rep #: [id number] : 1960 64 From: Zhang Arteaga PCP: ID Hospital Status:DEP ER Location: ED HPI History of Present Illness Chief Complaint: Complaint Narrative Narrative: 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 Currently with suprapubic cath and colostomy secondary to his paraplegia. [facility] [place] changes beginning of each month. This was changed in the last month. Reported nursing noted concerns for changes in his urine color that was reported milky. He denies fevers or chills. States with typical infections he would have chills. No antibiotic allergies. He stays at home with caregivers. Sent here to rule out infection. [facility] Medical History Sacral decubitus ulcer, stage III Atherosclerotic heart disease of [place] coronary artery without angina pectoris Depression Chronic [...] Blood Pressu (more content not included)... Normal [facility] Ketones Test strip Ql (U)Ord ered By: Zhang Chavez on 11-01-2024 Ketones Ql (U) Negative Negative [facility] Microscopic analysis of urin e for red blood cells (RBC)Ordered By: Zhang Chavez on 11-01-2024 Microscopic analysis of urine for red blood cells (RBC) 0 SEEN /hpf 0-5 [facility] Mucus LM Ql (Urine sed)Order ed By: Zhang Chavez on 11-01-2024 Mucus Ql (Urine sed) 0 SEEN /hpf [facility] Nitrite Test strip Ql (U)Ord ered By: Zhang Chavez on 11-01-2024 Nitrite Ql (U) Positive High Negative [facility] Protein Test strip Ql (U)Ord ered By: Zhang Chavez on 11-01-2024 Protein Ql (U) 100 mg/dl High Negative [facility] Squamous epithelial cells de tection in urine sediment by light microscopyOrdered By: Zhang Chavez on 11-01-2024 Epithelial cells.squamous LM Ql (Urine sed) 0 SEEN /hpf 0-5 [facility] Urinalysis, Completeon 11-01 WBC 0-5 SEEN Normal 0-5 [facility] Comment on above: Order Comment: GOOD TER SPECIMEN Performed By: #### L 400.0001, ####[facility] [address] [place], [address] AMORPHOUS 1+ Normal [facility] Comment on above: Order Comment: GOOD TER SPECIMEN Performed By: #### L 400.0001, ####[facility] [address] [place], [address] BACTERIA 0 SEEN Normal None Seen [facility] Comment on above: Order Comment: GOOD TER SPECIMEN Performed By: #### L 400.0001, ####[facility] [address] [place], [address] EPI,SQUAMOUS 0 SEEN Normal 0-5 [facility] Comment on above: Order Comment: GOOD TER SPECIMEN Performed By: #### L 400.0001, ####[facility] [address] [place], [address] Mucus Ql (Urine sed) 0 SEEN Normal [facility] Comment on above: Order Comment: GOOD TER SPECIMEN Performed By: #### L 400.0001, M100.2200 ####[facility] [address] [place], [address] RBC 0 SEEN Normal 0-5 [facility] Comment on above: Order Comment: GOOD TER SPECIMEN Performed By: #### L 400.0001, M100.2200 ####[facility] [address] [place], [place], [address] Urine clarityOrdered By: Terell Chavez on 11-01-2024 Clarity (U) Clear Clear [facility] Urine color determinationOrd ered By: Zhang Chavez on 11-01-2024 Color (U) Yellow Yellow [facility] Urine glucose detectionOrder ed By: Zhang Chavez on 11-01-2024 Glucose Ql (U) Normal mg/dl Normal [facility] Urine leukocyte esterase det ection by dipstickOrdered By: Zhang Chavez on 11-01-2024 Leukocyte esterase Test strip Ql (U) 500 /ul High Negative [facility] Urine pHOrdered By: Zhang Chavez on 11-01-2024 pH (U) 6.0 [pH] 5.0 - 8.0 [facility] Urine sediment bacteria coun t by microscopy (number/high power field)Ordered By: Zhang Chavez on 11-01-2024 Bacteria LM.HPF (Urine sed) [#/Area] 0 /[HPF] None Seen [facility] Urine specific gravity measu rementOrdered By: Zhang Chavez on 11-01-2024 Specific gravity (U) [Rel density] 1.020 1.002-1.03 0 [facility] Urine urobilinogen measureme ntOrdered By: Zhang Chavez on 11-01-2024 Urobilinogen Ql (U) Normal mg/dl Normal [facility] White blood cell countOrdere d By: Zhang Chavez on 11-01-2024 White blood cell count 0-5 SEEN /hpf 0-5 [facility] Culture, Blood (WB)on 2024 CUB Blood cultures x2, from two different sites No growth in 5 days. Normal [facility] Comment on above: Performed By: #### L 500.3400, L501.2450, L100.0100, L500.2500, L501.4020, L300.8000 #### [facility] [address] [place], [place], [id number] Urine Cultureon 09-14-2024 URC Pending Pseudomonas aeruginosa Wishon Count 1000-10,000 Pseudomonas aeruginosa: REACTION Cefepime Islt HARMAN 1 Ciprofloxacin Islt HARMAN >=4 R levoFLOXacin Islt HARMAN >=8 R Meropenem Islt HARMAN 1 S Pip+Tazo Islt HARMAN <=4 S Pseudomonas aeruginosa: REACTION Amikacin Islt HARMAN 2 Imipenem Islt HARMAN <=0.5 S Tobramycin Islt HARMAN <=1 S Normal [facility] Comment on above: Performed By: #### M 100.1999, M100.2200, M100.3000, L400.0001 ####[facility] [address] [place], [place], [id number] Wound Cultureon 09-14-2024 WC #3 Gram positive [...] S Vancomycin Islt HARMAN 1 S Normal [facility] Comment on above: Performed By: #### M 100.1999, M100.2200, M100.3000, L400.0001 ####[facility] [address] [place], [place], [id number] Gram Stainon 09-12-2024 GS Positive Normal [facility] Comment on above: Performed By: #### M 100.2000, M100.2200, M100.3000, L400.0001 ####[facility] [address] [place], [address] Absolute lymphocyte countOrd ered By: Alex Sheppard on 09-11-2024 Lymphocytes Auto (Unsp spec) [#/Vol] 2.40 10*3/uL 0.83-4.51 [facility] Absolute neutrophil countOrd ered By: Alex Sheppard on 09-11-2024 Neutrophils (Bld) [#/Vol] 7.6 10*3/uL 2.0-7.7 [facility] Activated partial thrombopla stin time (aPTT) in platelet poor plasma by coagulation aOrdered By: Alex Sheppard on 09-11-2024 aPTT Coag (Bld) [Time] 49.7 s High 24.1-36.2 [facility] Comment on above: Performed By: #### L 500.3400, L501.2450, L100.0100, L500.2500, L501.4020, L300.8000 #### [facility] [address] [place], [place], [id number] aPTT Coag (PPP) [Time] 49.7 s High 24.1-36.2 [facility] Anion gap in Serum or Plasma Ordered By: Alex Sheppard on 09-11-2024 Anion gap [Moles/Vol] 9 mmol/L 5-15 [facility] Automated blood erythrocyte countOrdered By: Alex Sheppard on 09-11-2024 RBC (Bld) [#/Vol] 5.05 10*6/uL Normal 4.6-6.2 [facility] Comment on above: Performed By: #### L 500.3400, L501.2450, L100.0100, L500.2500, L501.4020, L300.8000 #### [facility] [address] [place], [address] Automated blood hematocrit ( percentage)Ordered By: Alex Sheppard on 09-11-2024 Hematocrit (Bld) [Volume fraction] 40.9 % Normal 40-54 [facility] Comment on above: Performed By: #### L 500.3400, L501.2450, L100.0100, L500.2500, L501.4020, L300.8000 #### [facility] [address] [place], [place], [address] Automated lymphocyte count a s percentage of total leukocytesOrdered By: Alex Sheppard on 09-11-2024 Lymphocytes/100 WBC (Bld) 20.8 % Normal 19-41 [facility] Comment on above: Performed By: #### L 500.3400, L501.2450, L100.0100, L500.2500, L501.4020, L300.8000 #### [facility] [address] [place], [place], [address] Lymphocytes/100 WBC Auto (Unsp spec) 20.8 % 19- [facility] BUN/creatinine ratioOrdered By: Alex Sheppard on 09-11-2024 Urea nitrogen/Creatinine [Mass ratio] 19.5 mg/mg 10-20 [facility] Basophil percentageOrdered B y: Alex Sheppard on 09-11-2024 Basophils/100 WBC (Bld) 0.4 % Normal 0-1 [facility] Comment on above: Performed By: #### L 500.3400, L501.2450, L100.0100, L500.2500, L501.4020, L300.8000 #### [facility] [address] [place], [place], [address] Bilirubin Test strip Ql (U)O rdered By: Alex Sheppard on 09-11-2024 Bilirubin Ql (U) Negative Negative [facility] Bilirubin, totalOrdered By: Alex Sheppard on 09-11-2024 Bilirubin [Mass/Vol] mg/dL 0.00-1.30 [facility] Blood cultureOrdered By: Luz Sheppard on 09-11-2024 Bacteria identified Cx Nom (Bld) No growth in 5 days. [facility] CBC W/Diff, Automatedon 04-1 Absolute Lymph 2.40 X10 3/uL Normal 0.83-4.51 [facility] Comment on above: Performed By: #### L 500.3400, L501.2450, L100.0100, L500.2500, L501.4020, L300.8000 #### [facility] [address] [place], [address] Absolute Neut 7.6 X10 3/uL Normal 2.0-7.7 [facility] Comment on above: Performed By: #### L 500.3400, L501.2450, L100.0100, L500.2500, L501.4020, L300.8000 #### [facility] [address] [place], [address] IG% 0.400 Normal 0.0-0.9 [facility] Comment on above: Result Comment: IG% - Immature Granulocytes (promyelocytes, myelocytes and metamyelocytes) > 1% indicates that a LEFT SHIFT is Present. Performed By: #### L 500.3400, L501.2450, L100.0100, L500.2500, L501.4020, L300.8000 #### [facility] [address] [place], [address] Nucleated RBC (Bld) [#/Vol] 0 10*3/uL Normal 0-5 [facility] Comment on above: Performed By: #### L 500.3400, L501.2450, L100.0100, L500.2500, L501.4020, L300.8000 #### [facility] [address] [place], [address] RDW SD 51.1 fl High 35.1-43.9 [facility] Comment on above: Performed By: #### L 500.3400, L501.2450, L100.0100, L500.2500, L501.4020, L300.8000 #### [facility] [address] [place], [place], [id number] Calcium oxalate crystals LM Ql (Urine sed)Ordered By: Alex Sheppard on 09-11-2024 Urine Calcium Oxalate Crystals RARE /hpf [facility] Calcium oxalate crystals det ection in urine sediment by light microscopyOrdered By: Alex Sheppard on 09-11-2024 Calcium oxalate crystals LM Ql (Urine sed) RARE /hpf [facility] Carbon dioxide, total [Moles /volume] in Central venous bloodOrdered By: Alex Sheppard on 09-11-2024 CO2 [Moles/Vol] 27.3 mmol/L Normal 21.0-32.0 [facility] Comment on above: Performed By: #### L 500.3400, L501.2450, L100.0100, L500.2500, L501.4020, L300.8000 #### [facility] [address] [place], [place], [id number] Chloride assayOrdered By: Aicha Sheppard on 09-11-2024 Chloride [Moles/Vol] 103 mmol/L Normal 98-108 [facility] Comment on above: Performed By: #### L 500.3400, L501.2450, L100.0100, L500.2500, L501.4020, L300.8000 #### [facility] [address] [place], [place], [id number] Comprehensive Metabolic Prof ilon 09-11-2024 ALK PHOS 146 U/L High 40-129 [facility] Comment on above: Performed By: #### L 500.3400, L501.2450, L100.0100, L500.2500, L501.4020, L300.8000 #### [facility] [address] [place], [address] BUN/CRE 19.5 RATIO Normal 10-20 [facility] Comment on above: Performed By: #### L 500.3400, L501.2450, L100.0100, L500.2500, L501.4020, L300.8000 #### [facility] [address] [place], [address] ECRCL 107.24 ml/min Normal 50-250 [facility] Comment on above: Performed By: #### L 500.3400, L501.2450, L100.0100, L500.2500, L501.4020, L300.8000 #### [facility] [address] [place], [address] GAP 9 Normal 5-15 [facility] Comment on above: Performed By: #### L 500.3400, L501.2450, L100.0100, L500.2500, L501.4020, L300.8000 #### [facility] [address] [place], [address] T BILI < 0.15 Normal 0.00-1.30 [facility] Comment on above: Performed By: #### L 500.3400, L501.2450, L100.0100, L500.2500, L501.4020, L300.8000 #### [facility] [address] [place], [address] T PROT 6.8 g/dL Normal 5.9-8.4 [facility] Comment on above: Performed By: #### L 500.3400, L501.2450, L100.0100, L500.2500, L501.4020, L300.8000 #### [facility] [address] [place], [address] Comprehensive Metabolic Prof ilOrdered By: Alex Sheppard on 09-11-2024 AST [Catalytic activity/Vol] 27 U/L Normal <=37 [facility] Comment on above: Performed By: #### L 500.3400, L501.2450, L100.0100, L500.2500, L501.4020, L300.8000 #### [facility] [address] [place], [address] Emergency Department Summary on 09-11-2024 Emergency Department Summary [facility] Medical Records Department [address] [place] [address] Emergency Department Summary 09/11/24 MR#: [id number] Acct: [id number] Name: BAUTISTA RUFFIN Rep #: [id number] : 1960 64 From: Alex Sheppard GARMENT PRESSER-C PCP: [facility] Status:REG ER Location: ED ADDENDUM by Dr. Alma Rosa Pedroza DO on 09/12/24 at 1144 Care of patient turned over to fl awaiting transfer to tertiary care center for definitive care at [facility]. Patient remained hemodynamically stable. [facility] will use there transfer team to transfer patient I am told at 1300 hrs. 09/12/24 1144 Cosigner Signature (if applicable): 09/12/24 0012 cc: [facility] * Signed HPI History of Present Illness Chief Complaint: Cellulitis Narrative Narrative: Patient is a 64-year-old male that is a paraplegic, this is secondary to transverse myelitis, patient also has history of wounds, colostomy, catheter, anxiety who presents to the [facility] for wound evaluation. Patient does live at home, patient's as well as some home care nursing does take care of him. The home care nurses noticed that there was a foul-smelling odor from multiple wounds on his sacrum, buttocks area, they referred him to the [facility]. Patient denies any fever or chills. Patient does not state he has any pain however he has no feeling. [facility] Medical History Sacral decubitus ulcer, stage III Atherosclerotic heart disease of [place] coronary artery without angina pectoris Depression Chronic [...] in vomit (more content not included)... Normal [facility] Eosinophil percentageOrdered By: Alex Sheppard on 09-11-2024 Eosinophils/100 WBC (Bld) 3.6 % Normal 0-5 [facility] Comment on above: Performed By: #### L 500.3400, L501.2450, L100.0100, L500.2500, L501.4020, L300.8000 #### [facility] [address] [place], [address] Epithelial cells.squamous LM Ql (Urine sed)Ordered By: Alex Sheppard on 09-11-2024 Epithelial cells.squamous LM.HPF (Urine sed) [#/Area] 0 /[HPF] 0-5 [facility] Erythrocyte distribution wid th (RBC) [Ratio]Ordered By: Alex Sheppard on 09-11-2024 Erythrocyte distribution width (RBC) [Entitic vol] 51.1 fL High 35.1-43.9 [facility] Erythrocyte distribution wid th ratioOrdered By: Alex Sheppard on 09-11-2024 Erythrocyte distribution width (RBC) [Ratio] 17.6 % High 11.6-14.6 [facility] Comment on above: Performed By: #### L 500.3400, L501.2450, L100.0100, L500.2500, L501.4020, L300.8000 #### [facility] [address] [place], [place], [address] Erythrocyte distribution wid th standard deviationOrdered By: Alex Sheppard on 09-11-2024 Erythrocyte distribution width (RBC) [Ratio] 51.1 fl High 35.1-43.9 [facility] Estimation of creatinine elzbieta aranceOrdered By: Alex Sheppard on 09-11-2024 Estimated Creatinine Clearance Calc 107.24 ml/min 50-250 [facility] GFR/1.73 sq M.predicted cheyanne g non-blacks MDRD (S/P/Bld) [Vol rate/Area]Ordered By: Alex Sheppard on 09-11-2024 Estimated GFR (MDRD) Non-Af Amer 101 >60 [facility] Comment on above: mL/min/1.73m2 CKD-EP I Creatinine Equation (2020) Glomerular filtration rate ( GFR) estimation/1.73 sq m using serum, plasma, or whole bOrdered By: Alex Sheppard on 09-11-2024 GFR/1.73 sq M.predicted among non-blacks MDRD (S/P/Bld) [Vol rate/Area] 101 mL/min/{1.73_m2} Normal >60 [facility] Comment on above: mL/min/1.73m2 CKD-EP I Creatinine Equation (2020) Result Comment: mL/m in/1.73m2 CKD-EPI Creatinine Equation (2020) Performed By: #### L 500.3400, L501.2450, L100.0100, L500.2500, L501.4020, L300.8000 #### [facility] [address] [place], [address] Glucose Ql (U)Ordered By: Aicha Sheppard on 09-11-2024 Urine Glucose (UA) Normal mg/dl Normal [facility] Gram stainOrdered By: Alex jaffe on 09-11-2024 Microscopic observation Gram stain Nom (Unsp spec) [facility] Hemoglobin measurementOrdere d By: Alex Sheppard on 09-11-2024 Hemoglobin (Bld) [Mass/Vol] 13.0 g/dL Normal 13.0-16. 5 [facility] Comment on above: Performed By: #### L 500.3400, L501.2450, L100.0100, L500.2500, L501.4020, L300.8000 #### [facility] [address] [place], [place], [address] Immature granulocytes/100 WB C Auto (Bld)Ordered By: Alex Sheppard on 09-11-2024 Immature granulocytes/100 WBC (Bld) 0.400 % 0.0-0.9 [facility] Comment on above: IG% - Immature Granu locytes (promyelocytes, myelocytes and metamyelocytes) > 1% indicates that a LEFT SHIFT is Present. International normalized rat io (INR) calculationOrdered By: Alex Sheppard on 09-11-2024 INR Coag (Bld) [Relative time] 1.0 {INR} [facility] Ketones Test strip Ql (U)Ord ered By: Alex Sheppard on 09-11-2024 Ketones Ql (U) Negative Negative [facility] Lactic acid measurementOrder ed By: Alex Sheppard on 09-11-2024 Lactate [Moles/Vol] 1.4 mmol/L Normal 0.0-2.0 [facility] Comment on above: Order Comment: Y Performed By: #### L 500.3400, L501.2450, L100.0100, L500.2500, L501.4020, L300.8000 #### [facility] [address] [place], [place], [id number] Lymphocytes Auto (Unsp spec) [#/Vol]Ordered By: Alex Sheppard on 09-11-2024 Lymphocytes (Bld) [#/Vol] 2.40 10*3/uL 0.83-4.5 1 [facility] MCV (mean corpuscular volume ) determinationOrdered By: Alex Sheppard on 09-11-2024 MCV (RBC) [Entitic vol] 81.0 fL Normal 80-94 [facility] Comment on above: Performed By: #### L 500.3400, L501.2450, L100.0100, L500.2500, L501.4020, L300.8000 #### [facility] [address] [place], [address] Mean corpuscular hemoglobin (MCH) determinationOrdered By: Alex Sheppard on 09-11-2024 MCH (RBC) [Entitic mass] 25.7 pg Low 27.0-32.0 [facility] Comment on above: Performed By: #### L 500.3400, L501.2450, L100.0100, L500.2500, L501.4020, L300.8000 #### [facility] [address] [place], [address] Mean corpuscular hemoglobin concentration (MCHC) determinationOrdered By: Alex Sheppard on 09-11-2024 MCHC (RBC) [Mass/Vol] 31.8 g/dL Low 32-36 [facility] Comment on above: Performed By: #### L 500.3400, L501.2450, L100.0100, L500.2500, L501.4020, L300.8000 #### [facility] [address] [place], [address] Mean platelet volume determi nationOrdered By: Alex Sheppard on 09-11-2024 Platelet mean volume (Bld) [Entitic vol] 8.6 fL Normal 6.2-12.0 [facility] Comment on above: Performed By: #### L 500.3400, L501.2450, L100.0100, L500.2500, L501.4020, L300.8000 #### [facility] [address] [place], [address] Microscopic analysis of urin e for red blood cells (RBC)Ordered By: Alex Sheppard on 09-11-2024 Microscopic analysis of urine for red blood cells (RBC) 0-5 SEEN /hpf 0-5 [facility] Urine RBC 0-5 SEEN /hpf 0-5 [facility] Monocyte percentageOrdered B y: Alex Sheppard on 09-11-2024 Monocytes/100 WBC (Bld) 8.6 % Normal 0-10 [facility] Comment on above: Performed By: #### L 500.3400, L501.2450, L100.0100, L500.2500, L501.4020, L300.8000 #### [facility] [address] [place], [place], [id number] ([phone]) Mucus LM Ql (Urine sed)Order ed By: Alex Sheppard on 09-11-2024 Mucus Ql (Urine sed) RARE /hpf [facility] Neutrophil percentageOrdered By: Alex Sheppard on 09-11-2024 Neutrophils/100 WBC (Bld) 66.2 % Normal 47-70 [facility] Comment on above: Performed By: #### L 500.3400, L501.2450, L100.0100, L500.2500, L501.4020, L300.8000 #### [facility] [address] [place], [place], [id number] Nitrite Test strip Ql (U)Ord ered By: Alex Sheppard on 09-11-2024 Nitrite Ql (U) Positive High Negative [facility] Nucleated red blood cell per centageOrdered By: Alex Sheppard on 09-11-2024 Nucleated RBC/100 WBC (Bld) [Ratio] 0 % 0-5 [facility] Pelvis WITH IV Contraston Pelvis WITH IV Contrast [facility] Services [address] [place], [place] [address] Pelvis WITH IV Contrast MR#: [id number] Acct: [id number] Name: BAUTISTA RUFFIN Rep #: [id number] : 1960 Rylee 64 From: Nino Figeuroa MD PCP: [facility] Status: REG ER Study: Pelvis WITH IV Contrast Date of Exam: 09/11/24 Exam# [id number] Ordering Dr: Alex Sheppard GARMENT PRESSER-C PROCEDURE: PELVIS WITH IV CONTRAST REASON FOR [...] ischium bilaterally but no abscess. Reading Location: [facility] CC: MARCOS Sheppard; [facility] Mushroom Growing Supervisor: Signed Normal [facility] Platelet countOrdered By: Aicha Sheppard on 09-11-2024 Platelets (Bld) [#/Vol] 371 10*3/uL Normal 150-450 [facility] Comment on above: Performed By: #### L 500.3400, L501.2450, L100.0100, L500.2500, L501.4020, L300.8000 #### [facility] [address] [place], [place], [id number] Potassium measurement (mass/ volume)Ordered By: Alex Sheppard on 09-11-2024 Potassium [Moles/Vol] 4.1 mmol/L Normal 3.3-5.1 [facility] Comment on above: Performed By: #### L 500.3400, L501.2450, L100.0100, L500.2500, L501.4020, L300.8000 #### [facility] [address] [place], [address] Potassium (Unsp spec) [Mass/Vol] 4.1 mmol/L 3.3-5.1 [facility] Protein Test strip Ql (U)Ord ered By: Alex Sheppard on 09-11-2024 Protein Ql (U) 15 mg/dl High Negative [facility] Prothrombin Time w/INRon INR Coag (PPP) [Relative time] 1.0 {INR} Normal [facility] Comment on above: Performed By: #### L 500.3400, L501.2450, L100.0100, L500.2500, L501.4020, L300.8000 #### [facility] [address] [place], [address] Prothrombin timeOrdered By: Alex Sheppard on 09-11-2024 PT Coag (PPP) [Time] 13.7 s Normal 11.7-14.9 [facility] Comment on above: Performed By: #### L 500.3400, L501.2450, L100.0100, L500.2500, L501.4020, L300.8000 #### [facility] [address] [place], [address] Serum creatinine measurement (mass/volume)Ordered By: Alex Sheppard on 09-11-2024 Creatinine [Mass/Vol] 0.75 mg/dL Normal 0.70-1.20 [facility] Comment on above: Performed By: #### L 500.3400, L501.2450, L100.0100, L500.2500, L501.4020, L300.8000 #### [facility] [address] [place], [address] Serum globulin measurementOr dered By: Alex Sheppard on 09-11-2024 Globulin (S) [Mass/Vol] 3.9 g/dL Normal 2.2-4.2 [facility] Comment on above: Performed By: #### L 500.3400, L501.2450, L100.0100, L500.2500, L501.4020, L300.8000 #### [facility] [address] [facility] [place], [address] Serum glucose measurement (m ass/volume)Ordered By: Alex Sheppard on 09-11-2024 Glucose [Mass/Vol] 123 mg/dL High 70-99 [facility] Comment on above: Performed By: #### L 500.3400, L501.2450, L100.0100, L500.2500, L501.4020, L300.8000 #### [facility] [address] [place], [address] Serum or plasma alanine hooper otransferase (ALT) measurementOrdered By: Alex Sheppard on 09-11-2024 ALT [Catalytic activity/Vol] 19 U/L Normal <=46 [facility] Comment on above: Performed By: #### L 500.3400, L501.2450, L100.0100, L500.2500, L501.4020, L300.8000 #### [facility] [address] [facility] [place], [address] Serum or plasma albumin shantal urement (mass/volume)Ordered By: Alex Sheppard on 09-11-2024 Albumin [Mass/Vol] 3.0 g/dL Low 3.4-4.8 [facility] Comment on above: Performed By: #### L 500.3400, L501.2450, L100.0100, L500.2500, L501.4020, L300.8000 #### [facility] [address] [place], [address] Serum or plasma albumin/glob ulin mass ratioOrdered By: Alex Sheppard on 09-11-2024 Albumin/Globulin [Mass ratio] 0.8 {ratio} Low 0.9-2.4 [facility] Comment on above: Performed By: #### L 500.3400, L501.2450, L100.0100, L500.2500, L501.4020, L300.8000 #### [facility] [address] [facility] [place], [place], [address] Serum or plasma alkaline radha sphatase measurementOrdered By: Alex Sheppard on 09-11-2024 ALP [Catalytic activity/Vol] 146 U/L High 40-129 [facility] Serum or plasma calcium shantal urement (mass/volume)Ordered By: Alex Sheppard on 09-11-2024 Calcium [Mass/Vol] 8.9 mg/dL Normal 7.6-11.0 [facility] Comment on above: Performed By: #### L 500.3400, L501.2450, L100.0100, L500.2500, L501.4020, L300.8000 #### [facility] [address] [place], [place], [id number] Serum or plasma urea nitroge n measurement (mass/volume)Ordered By: Alex Sheppard on 09-11-2024 Urea nitrogen [Mass/Vol] 15 mg/dL Normal 4-19 [facility] Comment on above: Performed By: #### L 500.3400, L501.2450, L100.0100, L500.2500, L501.4020, L300.8000 #### [facility] [facility] [address] [facility] [place], [place], [id number] Sodium levelOrdered By: Alex Sheppard on 09-11-2024 Sodium [Moles/Vol] 139 mmol/L Normal 133-145 [facility] Comment on above: Performed By: #### L 500.3400, L501.2450, L100.0100, L500.2500, L501.4020, L300.8000 #### [facility] [address] [facility] [place], [place], [id number] Squamous epithelial cells de tection in urine sediment by light microscopyOrdered By: Alex Sheppard on 09-11-2024 Epithelial cells.squamous LM Ql (Urine sed) 0 SEEN /hpf 0-5 [facility] Total proteinOrdered By: Luz Sheppard on 09-11-2024 Protein [Mass/Vol] 6.8 g/dL 5.9-8.4 [facility] Urinalysis, Completeon 09-11 BACTERIA 2+ /hpf Normal None Seen [facility] Comment on above: Order Comment: GOOD TER SPECIMEN Performed By: #### M 100.2000, M100.2200, M100.3000, L400.0001 ####[facility] [address] [place], [address] CA OX CRYSTAL RARE Normal [facility] Comment on above: Order Comment: GOOD TER SPECIMEN Performed By: #### M 100.1999, M100.2200, M100.3000, L400.0001 ####[facility] [address] [place], [address] Mucus Ql (Urine sed) RARE Normal [facility] Comment on above: Order Comment: GOOD TER SPECIMEN Performed By: #### M 100.1999, M100.2200, M100.3000, L400.0001 ####[facility] [address] [place], [address] RBC 0-5 SEEN Normal 0-5 [facility] Comment on above: Order Comment: GOOD TER SPECIMEN Performed By: #### M 100.1999, M100.2200, M100.3000, L400.0001 ####[facility] [address] [place], [address] WBC 5-10 SEEN Normal 0-5 [facility] Comment on above: Order Comment: GOOD TER SPECIMEN Performed By: #### M 100.1999, M100.2200, M100.3000, L400.0001 ####[facility] [address] [place], [address] EPI,SQUAMOUS 0 SEEN Normal 0-5 [facility] Comment on above: Order Comment: GOOD TER SPECIMEN Performed By: #### M 100.1999, M100.2200, M100.3000, L400.0001 ####[facility] [address] [place], [address] Urine blood detectionOrdered By: Alex Sheppard on 09-11-2024 Urine Occult Blood 10 /ul High Negative [facility] Urine clarityOrdered By: Luz Sheppard on 09-11-2024 Clarity (U) Clear Clear [facility] Urine color determinationOrd ered By: Alex Sheppard on 09-11-2024 Color (U) Yellow Yellow [facility] Urine cultureOrdered By: Luz Sheppard on 09-11-2024 Bacteria identified Cx Nom (U) Pseudomonas aeruginosa Abnormal [facility] Urine glucose detectionOrder ed By: Alex Sheppard on 09-11-2024 Glucose Ql (U) Normal mg/dl Normal [facility] Urine leukocyte esterase det ection by dipstickOrdered By: Alex Sheppard on 09-11-2024 Leukocyte esterase Test strip Ql (U) 100 /ul High Negative [facility] Urine pHOrdered By: Alex juares on 09-11-2024 pH (U) 6.0 [pH] 5.0 - 8.0 [facility] Urine sediment bacteria coun t by microscopy (number/high power field)Ordered By: Alex Sheppard on 09-11-2024 Bacteria LM.HPF (Urine sed) [#/Area] 2 /[HPF] None Seen [facility] Urine specific gravity measu rementOrdered By: Alex Sheppard on 09-11-2024 Specific gravity (U) [Rel density] 1.015 1.002-1.03 0 [facility] Urine urobilinogen measureme ntOrdered By: Alex Sheppard on 09-11-2024 Urobilinogen Ql (U) Normal mg/dl Normal [facility] Urobilinogen Ql (U)Ordered B y: Alex Sheppard on 09-11-2024 Urine Urobilinogen Normal mg/dl Normal [facility] White blood cell (WBC) count Ordered By: Alex Sheppard on 09-11-2024 WBC (Bld) [#/Vol] 11.6 10*3/uL High 4.4-11.0 [facility] Comment on above: Performed By: #### L 500.3400, L501.2450, L100.0100, L500.2500, L501.4020, L300.8000 #### [facility] [address] [place], [address] White blood cell countOrdere d By: Alex Sheppard on 09-11-2024 Urine WBC 5-10 SEEN /hpf 0-5 [facility] White blood cell count 5-10 SEEN /hpf 0-5 [facility] Absolute lymphocyte countOrd ered By: Rico Moore on 07-14-2024 Lymphocytes Auto (Unsp spec) [#/Vol] 2.44 10*3/uL 0.83-4.51 [facility] Absolute neutrophil countOrd ered By: Rico Moore on 07-14-2024 Neutrophils (Bld) [#/Vol] 9.1 10*3/uL High 2.0-7.7 [facility] Automated lymphocyte count a s percentage of total leukocytesOrdered By: Rico Moore on 07-14-2024 Lymphocytes/100 WBC Auto (Unsp spec) 19.4 % 19-41 [facility] Bacteria LM.HPF (Urine sed) [#/Area]Ordered By: Rico Moore on 07-14-2024 Urine Bacteria RARE /hpf None Seen [facility] Basic Metabolic Profile (BMP )on 07-14-2024 BUN/CRE 21.2 RATIO High 10-20 [facility] Comment on above: Performed By: #### L 500.3400, L501.2450, L100.0100, L500.2500, L501.4020, L300.8000 #### [facility] [address] [place], [address] CA,Total 9.5 mg/dL Normal 8.5-10.1 [facility] Comment on above: Performed By: #### L 500.3400, L501.2450, L100.0100, L500.2500, L501.4020, L300.8000 #### [facility] [address] [place], [address] Chloride [Moles/Vol] 103 mmol/L Normal 98-107 [facility] Comment on above: Performed By: #### L 500.3400, L501.2450, L100.0100, L500.2500, L501.4020, L300.8000 #### [facility] [address] [place], [address] CO2 [Moles/Vol] 26.0 mmol/L Normal 21.0-32.0 [facility] Comment on above: Performed By: #### L 500.3400, L501.2450, L100.0100, L500.2500, L501.4020, L300.8000 #### [facility] [address] [place], [address] Creatinine [Mass/Vol] 0.66 mg/dL Low 0.70-1.30 [facility] Comment on above: Result Comment: The validity of the calculated GFR GFRAA in patients over 70 years has not been determined. Clinical correlation is essential. Performed By: #### L 500.3400, L501.2450, L100.0100, L500.2500, L501.4020, L300.8000 #### [facility] [address] [place], [address] ECRCL 125.25 ml/min Normal [facility] Comment on above: Performed By: #### L 500.3400, L501.2450, L100.0100, L500.2500, L501.4020, L300.8000 #### [facility] [address] [place], [address] EST GFR - AA 156 mL/min Normal >60 [facility] Comment on above: Result Comment: Afri can Niuean GFR Calc Performed By: #### L 500.3400, L501.2450, L100.0100, L500.2500, L501.4020, L300.8000 #### [facility] [address] [place], [address] GAP 9 Normal 5-15 [facility] Comment on above: Performed By: #### L 500.3400, L501.2450, L100.0100, L500.2500, L501.4020, L300.8000 #### [facility] [address] [place], [address] GFR/1.73 sq M.predicted among non-blacks MDRD (S/P/Bld) [Vol rate/Area] 129 mL/min/{1.73_m2} Normal >60 [facility] Comment on above: Result Comment: Non- GFR Calc Performed By: #### L 500.3400, L501.2450, L100.0100, L500.2500, L501.4020, L300.8000 #### [facility] [address] [place], [address] Glucose [Mass/Vol] 110 mg/dL High 74-106 [facility] Comment on above: Result Comment: Fast ing Glucose result from 100 to 125 mg/dL suggests IMPAIRED HOMEOSTASIS per A.D.A. criteria. Performed By: #### L 500.3400, L501.2450, L100.0100, L500.2500, L501.4020, L300.8000 #### [facility] [address] [place], [address] Potassium [Moles/Vol] 3.6 mmol/L Normal 3.5-5.1 [facility] Comment on above: Performed By: #### L 500.3400, L501.2450, L100.0100, L500.2500, L501.4020, L300.8000 #### [facility] [address] [place], [address] Sodium [Moles/Vol] 139 mmol/L Normal 136-145 [facility] Comment on above: Performed By: #### L 500.3400, L501.2450, L100.0100, L500.2500, L501.4020, L300.8000 #### [facility] [address] [place], [address] Urea nitrogen [Mass/Vol] 14 mg/dL Normal 7-18 [facility] Comment on above: Performed By: #### L 500.3400, L501.2450, L100.0100, L500.2500, L501.4020, L300.8000 #### [facility] [address] [place], [address] Basophil percentageOrdered B y: Rico Moore on 07-14-2024 Basophils/100 WBC (Bld) 0.6 % 0-1 [facility] Bilirubin Test strip Ql (U)O rdered By: Rico Moore on 07-14-2024 Bilirubin Ql (U) Negative Negative [facility] Bilirubin directOrdered By: Rico Moore on 07-14-2024 Bilirubin.direct [Mass/Vol] 0.13 mg/dL 0.00-0.3 0 [facility] Bilirubin, totalOrdered By: Rico Moore on 07-14-2024 Bilirubin [Mass/Vol] 0.30 mg/dL 0.20-1.00 [facility] Comment on above: For patients on eltr ombopag therapy, use of Dimension Ada TBIL is not recommended. Blood urea nitrogen (BUN)/cr eatinine ratioOrdered By: Rico Moore on 07-14-2024 Urea nitrogen/Creatinine [Mass ratio] 21.2 mg/mg High 10-20 [facility] CBC W/Diff, Automatedon 06-29 Absolute Lymph 2.44 X10 3/uL Normal 0.83-4.51 [facility] Comment on above: Performed By: #### L 500.3400, L501.2450, L100.0100, L500.2500, L501.4020, L300.8000 #### [facility] [address] [place], [address] Absolute Neut 9.1 X10 3/uL High 2.0-7.7 [facility] Comment on above: Performed By: #### L 500.3400, L501.2450, L100.0100, L500.2500, L501.4020, L300.8000 #### [facility] [address] [place], [address] Basophils/100 WBC (Bld) 0.6 % Normal 0-1 [facility] Comment on above: Performed By: #### L 500.3400, L501.2450, L100.0100, L500.2500, L501.4020, L300.8000 #### [facility] [address] [place], [address] Eosinophils/100 WBC (Bld) 1.4 % Normal 0-5 [facility] Comment on above: Performed By: #### L 500.3400, L501.2450, L100.0100, L500.2500, L501.4020, L300.8000 #### [facility] [address] [place], [address] Erythrocyte distribution width (RBC) [Ratio] 15.9 % High 11.6-14.6 [facility] Comment on above: Performed By: #### L 500.3400, L501.2450, L100.0100, L500.2500, L501.4020, L300.8000 #### [facility] [address] [place], [address] Hematocrit (Bld) [Volume fraction] 42.8 % Normal 40-54 [facility] Comment on above: Performed By: #### L 500.3400, L501.2450, L100.0100, L500.2500, L501.4020, L300.8000 #### [facility] [address] [place], [address] Hemoglobin (Bld) [Mass/Vol] 14.0 g/dL Normal 13.0-16. 5 [facility] Comment on above: Performed By: #### L 500.3400, L501.2450, L100.0100, L500.2500, L501.4020, L300.8000 #### [facility] [address] [place], [address] IG% 0.600 Normal 0.0-0.9 [facility] Comment on above: Result Comment: IG% - Immature Granulocytes (promyelocytes, myelocytes and metamyelocytes) > 1% indicates that a LEFT SHIFT is Present. Performed By: #### L 500.3400, L501.2450, L100.0100, L500.2500, L501.4020, L300.8000 #### [facility] [address] [place], [address] Lymphocytes/100 WBC (Bld) 19.4 % Normal 19-41 [facility] Comment on above: Performed By: #### L 500.3400, L501.2450, L100.0100, L500.2500, L501.4020, L300.8000 #### [facility] [address] [place], [address] MCH (RBC) [Entitic mass] 27.1 pg Normal 27.0-32.0 [facility] Comment on above: Performed By: #### L 500.3400, L501.2450, L100.0100, L500.2500, L501.4020, L300.8000 #### [facility] [address] [place], [address] MCHC (RBC) [Mass/Vol] 32.7 g/dL Normal 32-36 [facility] Comment on above: Performed By: #### L 500.3400, L501.2450, L100.0100, L500.2500, L501.4020, L300.8000 #### [facility] [address] [place], [address] MCV (RBC) [Entitic vol] 82.8 fL Normal 80-94 [facility] Comment on above: Performed By: #### L 500.3400, L501.2450, L100.0100, L500.2500, L501.4020, L300.8000 #### [facility] [address] [place], [address] Monocytes/100 WBC (Bld) 5.9 % Normal 0-10 [facility] Comment on above: Performed By: #### L 500.3400, L501.2450, L100.0100, L500.2500, L501.4020, L300.8000 #### [facility] [address] [place], [address] Neutrophils/100 WBC (Bld) 72.1 % High 47-70 [facility] Comment on above: Performed By: #### L 500.3400, L501.2450, L100.0100, L500.2500, L501.4020, L300.8000 #### [facility] [address] [place], [address] Nucleated RBC (Bld) [#/Vol] 0 10*3/uL Normal 0-5 [facility] Comment on above: Performed By: #### L 500.3400, L501.2450, L100.0100, L500.2500, L501.4020, L300.8000 #### [facility] [address] [place], [address] Platelet mean volume (Bld) [Entitic vol] 8.9 fL Normal 6.2-12.0 [facility] Comment on above: Performed By: #### L 500.3400, L501.2450, L100.0100, L500.2500, L501.4020, L300.8000 #### [facility] [address] [place], [address] Platelets (Bld) [#/Vol] 487 10*3/uL High 150-450 [facility] Comment on above: Performed By: #### L 500.3400, L501.2450, L100.0100, L500.2500, L501.4020, L300.8000 #### [facility] [address] [place], [address] RBC (Bld) [#/Vol] 5.17 10*6/uL Normal 4.6-6.2 [facility] Comment on above: Performed By: #### L 500.3400, L501.2450, L100.0100, L500.2500, L501.4020, L300.8000 #### [facility] [address] [place], [address] RDW SD 47.8 fl High 35.1-43.9 [facility] Comment on above: Performed By: #### L 500.3400, L501.2450, L100.0100, L500.2500, L501.4020, L300.8000 #### [facility] [address] [place], [address] WBC (Bld) [#/Vol] 12.6 10*3/uL High 4.4-11.0 [facility] Comment on above: Performed By: #### L 500.3400, L501.2450, L100.0100, L500.2500, L501.4020, L300.8000 #### [facility] [address] [place], [address] Calcium oxalate crystals LM Ql (Urine sed)Ordered By: Rico Moore on 07-14-2024 Urine Calcium Oxalate Crystals RARE /hpf [facility] Calcium oxalate crystals det ection in urine sediment by light microscopyOrdered By: Rico Moore on 07-14-2024 Calcium oxalate crystals LM Ql (Urine sed) RARE /hpf [facility] Carbon dioxide measurementOr dered By: Rico Moore on 07-14-2024 CO2 [Moles/Vol] 26.0 mmol/L 21.0-32.0 [facility] Chest 1 View (Portable)on Chest 1 View (Portable) [facility] Imaging Services [address] [place] [address] Chest 1 View (Portable) MR#: [id number] Acct: [id number] Name: BAUTISTA RUFFIN Rep #: [id number] : 1960 M 64 From: Keyla Yeboah nd, MD PCP: [facility] Status: REG ER Study: Chest 1 View (Portable) Date of Exam: 07/14/24 Exam# [id number] Ordering Dr: Rico Moore DO PROCEDURE: CHEST [...] No pleural effusion or pneumothorax. Reading Location: [facility] CC: Dr. Rico Moore DO; [facility] Mushroom Growing Supervisor: Signed Normal [facility] Chloride measurementOrdered By: Rico Moore on 07-14-2024 Chloride [Moles/Vol] 103 mmol/L 98-107 [facility] Emergency Department Summary on 07-14-2024 Emergency Department Summary [facility] Medical Records Department [address] [place] [address] Emergency Department Summary 07/14/24 MR#: [id number] Acct: [id number] Name: BAUTISTA RUFFIN Rep #: [id number] : 1960 64 From: Rico Moore DO [facility] Status:DEP ER Location: ED HPI History [...] for sleep. He states he sees the ID for primary care. Yesterday he tested negative for COVID influenza RSV. Pneumonia was noted on CT scanning to be retrocardiac. [facility] Medical History Sacral decubitus ulcer, stage III Atherosclerotic heart disease of [place] coronary artery without angina pectoris Depression Chronic [...] of colostom (more content not included)... Normal [facility] Eosinophil percentageOrdered By: Rico Moore on 07-14-2024 Eosinophils/100 WBC (Bld) 1.4 % 0-5 [facility] Epithelial cells.squamous LM Ql (Urine sed)Ordered By: Rico Moore on 07-14-2024 Epithelial cells.squamous LM.HPF (Urine sed) [#/Area] 0 /[HPF] 0-5 [facility] Erythrocyte distribution wid th (RBC) [Ratio]Ordered By: Rico Moore on 07-14-2024 Erythrocyte distribution width (RBC) [Entitic vol] 47.8 fL High 35.1-43.9 [facility] Erythrocyte distribution wid th ratioOrdered By: Rico Moore on 07-14-2024 Erythrocyte distribution width (RBC) [Ratio] 15.9 % High 11.6-14.6 [facility] Erythrocyte distribution wid th standard deviationOrdered By: Rico Moore on 07-14-2024 Erythrocyte distribution width (RBC) [Ratio] 47.8 fl High 35.1-43.9 [facility] Estimated glomerular filtrat ion rate (GFR) AmericanOrdered By: Rico Moore on 07-14-2024 Estimated GFR (MDRD) Amer 156 mL/min >60 [facility] Comment on above: GFR Calc Estimation of creatinine elzbieta aranceOrdered By: Rico Moore on 07-14-2024 Estimated Creatinine Clearance Calc 125.25 ml/min [facility] Glomerular filtration rate ( GFR) estimationOrdered By: Rico Mooer on 07-14-2024 Estimated GFR (MDRD) Non-Af Amer 129 mL/min >60 [facility] Comment on above: Non- GFR Calc GFR/1.73 sq M.predicted among non-blacks MDRD (S/P/Bld) [Vol rate/Area] 129 mL/min/{1.73_m2} >60 [facility] Comment on above: Non- GFR Calc Glucose Ql (U)Ordered By: Thomas Moore on 07-14-2024 Urine Glucose (UA) Normal mg/dl Normal [facility] Glucose measurementOrdered B y: Rico Moore on 07-14-2024 Glucose [Mass/Vol] 110 mg/dL High 74-106 [facility] Comment on above: Fasting Glucose resu lt from 100 to 125 mg/dL suggests IMPAIRED HOMEOSTASIS per A.D.A. criteria. Hematocrit Auto (Bld) [Volum e fraction]Ordered By: Rico Moore on 07-14-2024 Hematocrit (Bld) [Volume fraction] 42.8 % 40-54 [facility] Hemoglobin measurementOrdere d By: Rico Moore on 07-14-2024 Hemoglobin (Bld) [Mass/Vol] 14.0 g/dL 13.0-16. 5 [facility] Immature granulocytes/100 WB C Auto (Bld)Ordered By: Rico Moore on 07-14-2024 Immature granulocytes/100 WBC (Bld) 0.600 % 0.0-0.9 [facility] Comment on above: IG% - Immature Granu locytes (promyelocytes, myelocytes and metamyelocytes) > 1% indicates that a LEFT SHIFT is Present. Ketones Test strip Ql (U)Ord ered By: Rico Moore on 07-14-2024 Ketones Ql (U) 150 mg/dl Abnormal Negative [facility] Comment on above: CRITICAL VALUE *HCAL LED TO GEORGE BARONE07/14/24 0758 Erica Bianchi.RESULTS READ BACK BY SAME. Laboratory - Chemistry and C hemistry - challengeOrdered By: Rico Moore on 07-14-2024 AST [Catalytic activity/Vol] 20 U/L 15-37 [facility] Lipaseon 07-14-2024 Lipase [Catalytic activity/Vol] 20 U/L Low 73-393 [facility] Comment on above: Performed By: #### L 500.3400, L501.2450, L100.0100, L500.2500, L501.4020, L300.8000 #### [facility] [address] [place], [address] Lipase measurementOrdered By : Rico Moore on 07-14-2024 Lipase [Catalytic activity/Vol] 20 U/L Low 73-393 [facility] Liver Profileon 07-14-2024 Albumin [Mass/Vol] 2.5 g/dL Low 3.2-5.0 [facility] Comment on above: Performed By: #### L 500.3400, L501.2450, L100.0100, L500.2500, L501.4020, L300.8000 #### [facility] [address] [place], [address] ALK P 117 U/L Normal 45-117 [facility] Comment on above: Performed By: #### L 500.3400, L501.2450, L100.0100, L500.2500, L501.4020, L300.8000 #### [facility] [address] [place], [address] ALT [Catalytic activity/Vol] 19 U/L Normal 16-61 [facility] Comment on above: Performed By: #### L 500.3400, L501.2450, L100.0100, L500.2500, L501.4020, L300.8000 #### [facility] [address] [place], [address] AST [Catalytic activity/Vol] 20 U/L Normal 15-37 [facility] Comment on above: Performed By: #### L 500.3400, L501.2450, L100.0100, L500.2500, L501.4020, L300.8000 #### [facility] [address] [place], [address] Bilirubin [Mass/Vol] 0.30 mg/dL Normal 0.20-1.00 [facility] Comment on above: Result Comment: For patients on eltrombopag therapy, use of Dimension Ada TBIL is not recommended. Performed By: #### L 500.3400, L501.2450, L100.0100, L500.2500, L501.4020, L300.8000 #### [facility] [address] [place], [address] Bilirubin.direct [Mass/Vol] 0.13 mg/dL Normal 0.00-0.3 0 [facility] Comment on above: Performed By: #### L 500.3400, L501.2450, L100.0100, L500.2500, L501.4020, L300.8000 #### [facility] [address] [place], [address] Globulin (S) [Mass/Vol] 5.2 g/dL High 2.2-4.2 [facility] Comment on above: Performed By: #### L 500.3400, L501.2450, L100.0100, L500.2500, L501.4020, L300.8000 #### [facility] [address] [place], [address] T PROT 7.7 g/dL Normal 6.4-8.2 [facility] Comment on above: Performed By: #### L 500.3400, L501.2450, L100.0100, L500.2500, L501.4020, L300.8000 #### [facility] [address] [place], [address] Lymphocytes Auto (Unsp spec) [#/Vol]Ordered By: Rico Moore on 07-14-2024 Lymphocytes (Bld) [#/Vol] 2.44 10*3/uL 0.83-4.5 1 [facility] Lymphocytes/100 WBC Auto (Un sp spec)Ordered By: Rico Moore on 07-14-2024 Lymphocytes/100 WBC (Bld) 19.4 % 19-41 [facility] MCV (mean corpuscular volume ) determinationOrdered By: Rico Moore on 07-14-2024 MCV (RBC) [Entitic vol] 82.8 fL 80-94 [facility] Mean corpuscular hemoglobin (MCH) determinationOrdered By: Rico Moore on 07-14-2024 MCH (RBC) [Entitic mass] 27.1 pg 27.0-32.0 [facility] Mean corpuscular hemoglobin concentration (MCHC) determinationOrdered By: Rico Moore on 07-14-2024 MCHC (RBC) [Mass/Vol] 32.7 g/dL 32-36 [facility] Mean platelet volume determi nationOrdered By: Rico Moore on 07-14-2024 Platelet mean volume (Bld) [Entitic vol] 8.9 fL 6.2-12.0 [facility] Microscopic analysis of urin e for red blood cells (RBC)Ordered By: Rico Moore on 07-14-2024 Microscopic analysis of urine for red blood cells (RBC) 0 SEEN /hpf 0-5 [facility] Urine RBC 0 SEEN /hpf 0-5 [facility] Monocyte percentageOrdered B y: Rico Moore on 07-14-2024 Monocytes/100 WBC (Bld) 5.9 % 0-10 [facility] Mucus LM Ql (Urine sed)Order ed By: Rico Moore on 07-14-2024 Mucus Ql (Urine sed) 0 SEEN /hpf [facility] Neutrophil percentageOrdered By: Rico Moore on 07-14-2024 Neutrophils/100 WBC (Bld) 72.1 % High 47-70 [facility] [facility] Nitrite Test strip Ql (U)Ord ered By: Rico Moore on 07-14-2024 Nitrite Ql (U) Positive High Negative [facility] Nucleated red blood cell per centageOrdered By: iRco Moore on 07-14-2024 Nucleated RBC/100 WBC (Bld) [Ratio] 0 % 0-5 [facility] Platelet countOrdered By: Thomas Moore on 07-14-2024 Platelets (Bld) [#/Vol] 487 10*3/uL High 150-450 [facility] Potassium measurementOrdered By: Rico Moore on 07-14-2024 Potassium [Moles/Vol] 3.6 mmol/L 3.5-5.1 [facility] Protein Test strip Ql (U)Ord ered By: Rico Moore on 07-14-2024 Protein Ql (U) 100 mg/dl High Negative [facility] RBC Auto (Bld) [#/Vol]Ordere d By: Rico Moore on 07-14-2024 RBC (Bld) [#/Vol] 5.17 10*6/uL 4.6-6.2 [facility] Serum anion gap measurementO rdered By: Rico Moore on 07-14-2024 Anion gap [Moles/Vol] 9 mmol/L 5-15 [facility] Serum globulin measurementOr dered By: Rico Moore on 07-14-2024 Globulin (S) [Mass/Vol] 5.2 g/dL High 2.2-4.2 [facility] Serum or plasma alanine hooper otransferase (ALT) measurementOrdered By: Rico Moore on 07-14-2024 ALT [Catalytic activity/Vol] 19 U/L 16-61 [facility] Serum or plasma albumin shantal urement (mass/volume)Ordered By: Rico Moore on 07-14-2024 Albumin [Mass/Vol] 2.5 g/dL Low 3.2-5.0 [facility] Serum or plasma alkaline radha sphatase measurementOrdered By: Rico Moore on 07-14-2024 ALP [Catalytic activity/Vol] 117 U/L 45-117 [facility] Serum or plasma calcium shantal urement (mass/volume)Ordered By: Rico Moore on 07-14-2024 Calcium [Mass/Vol] 9.5 mg/dL 8.5-10.1 [facility] Serum or plasma creatinine m easurement (mass/volume)Ordered By: Rico Moore on 07-14-2024 Creatinine [Mass/Vol] 0.66 mg/dL Low 0.70-1.30 [facility] Comment on above: The validity of the calculated GFR & GFRAA in patients over 70 years has not been determined. Clinical correlation is essential. Serum or plasma urea nitroge n measurement (mass/volume)Ordered By: Rico Moore on 07-14-2024 Urea nitrogen [Mass/Vol] 14 mg/dL 7-18 [facility] Sodium levelOrdered By: Bhaskar Moore on 07-14-2024 Sodium [Moles/Vol] 139 mmol/L 136-145 [facility] Squamous epithelial cells de tection in urine sediment by light microscopyOrdered By: Rico Moore on 07-14-2024 Epithelial cells.squamous LM Ql (Urine sed) 0-5 SEEN /hpf 0-5 [facility] Total proteinOrdered By: Charles Moore on 07-14-2024 Protein [Mass/Vol] 7.7 g/dL 6.4-8.2 [facility] Urinalysis, Completeon 07-14 RBC 0 SEEN Normal 0-5 [facility] Comment on above: Order Comment: 'TROP ' Serial specimen #1, #2 or #3: 1 Performed By: #### L 500.3400, L501.2450, L100.0100, L500.2500, L501.4020, L300.8000 #### [facility] [address] [place], [address] BACTERIA RARE Normal None Seen [facility] Comment on above: Order Comment: 'TROP ' Serial specimen #1, #2 or #3: 1 Performed By: #### L 500.3400, L501.2450, L100.0100, L500.2500, L501.4020, L300.8000 #### [facility] [address] [place], [address] CA OX CRYSTAL RARE Normal [facility] Comment on above: Order Comment: 'TROP ' Serial specimen #1, #2 or #3: 1 Performed By: #### L 500.3400, L501.2450, L100.0100, L500.2500, L501.4020, L300.8000 #### [facility] [address] [place], [address] EPI,SQUAMOUS 0-5 SEEN Normal 0-5 [facility] Comment on above: Order Comment: 'TROP ' Serial specimen #1, #2 or #3: 1 Performed By: #### L 500.3400, L501.2450, L100.0100, L500.2500, L501.4020, L300.8000 #### [facility] [address] [place], [address] WBC >100 SEEN Normal 0-5 [facility] Comment on above: Order Comment: 'TROP ' Serial specimen #1, #2 or #3: 1 Performed By: #### L 500.3400, L501.2450, L100.0100, L500.2500, L501.4020, L300.8000 #### [facility] [address] [place], [address] Mucus Ql (Urine sed) 0 SEEN Normal [facility] Comment on above: Order Comment: 'TROP ' Serial specimen #1, #2 or #3: 1 Performed By: #### L 500.3400, L501.2450, L100.0100, L500.2500, L501.4020, L300.8000 #### [facility] [address] [place], [address] Urine blood detectionOrdered By: Rico Moore on 07-14-2024 Urine Occult Blood 50 /ul High Negative [facility] Urine clarityOrdered By: Charles Moore on 07-14-2024 Clarity (U) Cloudy Clear [facility] Urine color determinationOrd ered By: Rico Moore on 07-14-2024 Color (U) Yellow Yellow [facility] Urine glucose detectionOrder ed By: Rico Moore on 07-14-2024 Glucose Ql (U) Normal mg/dl Normal [facility] Urine leukocyte esterase det ection by dipstickOrdered By: Rico Moore on 07-14-2024 Leukocyte esterase Test strip Ql (U) 500 /ul High Negative [facility] Urine pHOrdered By: Rico vang on 07-14-2024 pH (U) 5.0 [pH] 5.0 - 8.0 [facility] Urine sediment bacteria coun t by microscopy (number/high power field)Ordered By: Rico Moore on 07-14-2024 Bacteria LM.HPF (Urine sed) [#/Area] RARE /hpf None Seen [facility] Urine specific gravity measu rementOrdered By: Rico Moore on 07-14-2024 Specific gravity (U) [Rel density] 1.025 1.002-1.03 0 [facility] Urine urobilinogen measureme ntOrdered By: Rico Moore on 07-14-2024 Urobilinogen Ql (U) Normal mg/dl Normal [facility] Urobilinogen Ql (U)Ordered B y: Rico Moore on 07-14-2024 Urine Urobilinogen Normal mg/dl Normal [facility] White blood cell (WBC) count Ordered By: Rico Moore on 07-14-2024 WBC (Bld) [#/Vol] 12.6 10*3/uL High 4.4-11.0 [facility] White blood cell countOrdere d By: Rico Moore on 07-14-2024 Urine WBC >100 SEEN /hpf 0-5 [facility] White blood cell count >100 SEEN /hpf 0-5 [facility] 12 Lead EKGon 07-13-2024 12 Lead EKG [facility] Cardiovascular Services [address] [place] [address] 12 Lead EKG 07/13/24 0227 MR#: [id number] Acct: [id number] Name: BAUTISTA RUFFIN Rep #: [id number] : 1960 64 From: Zackary Costello MD [...] ECG Confirmed by NOEMI MARR, ALAN ([id number]), production editor AURORA FOURNIER ([id number]) on 07/15/2024 8:18:29 AM Referred By: JA Confirmed By: ALAN COSTELLO MD 07/15/24817 Date Zackary Costello MD CC: Richie Borden DO; [facility] Signed Normal [facility] Absolute lymphocyte countOrd ered By: Richie Borden on 07-13-2024 Lymphocytes Auto (Unsp spec) [#/Vol] 3.25 10*3/uL 0.83-4.51 [facility] Absolute neutrophil countOrd ered By: Richie Broden on 07-13-2024 Neutrophils (Bld) [#/Vol] 9.2 10*3/uL High 2.0-7.7 [facility] Automated lymphocyte count a s percentage of total leukocytesOrdered By: Richie Borden on 07-13-2024 Lymphocytes/100 WBC Auto (Unsp spec) 22.6 % 19-41 [facility] Basic Metabolic Profile (BMP )on 07-13-2024 BUN/CRE 17.5 RATIO Normal 10-20 [facility] Comment on above: Order Comment: 'TROP ' Serial specimen #1, #2 or #3: 1 Performed By: #### L 500.3400, L501.2450, L100.0100, L500.2500, L501.4020, L300.8000 #### [facility] [address] [place], [address] CA,Total 9.4 mg/dL Normal 8.5-10.1 [facility] Comment on above: Order Comment: 'TROP ' Serial specimen #1, #2 or #3: 1 Performed By: #### L 500.3400, L501.2450, L100.0100, L500.2500, L501.4020, L300.8000 #### [facility] [address] [place], [address] Chloride [Moles/Vol] 104 mmol/L Normal 98-107 [facility] Comment on above: Order Comment: 'TROP ' Serial specimen #1, #2 or #3: 1 Performed By: #### L 500.3400, L501.2450, L100.0100, L500.2500, L501.4020, L300.8000 #### [facility] [address] [place], [address] CO2 [Moles/Vol] 27.0 mmol/L Normal 21.0-32.0 [facility] Comment on above: Order Comment: 'TROP ' Serial specimen #1, #2 or #3: 1 Performed By: #### L 500.3400, L501.2450, L100.0100, L500.2500, L501.4020, L300.8000 #### [facility] [address] [place], [address] Creatinine [Mass/Vol] 0.63 mg/dL Low 0.70-1.30 [facility] Comment on above: Order Comment: 'TROP ' Serial specimen #1, #2 or #3: 1 Result Comment: The validity of the calculated GFR GFRAA in patients over 70 years has not been determined. Clinical correlation is essential. Performed By: #### L 500.3400, L501.2450, L100.0100, L500.2500, L501.4020, L300.8000 #### [facility] [address] [place], [address] ECRCL 120.02 ml/min Normal [facility] Comment on above: Order Comment: 'TROP ' Serial specimen #1, #2 or #3: 1 Performed By: #### L 500.3400, L501.2450, L100.0100, L500.2500, L501.4020, L300.8000 #### [facility] [address] [place], [address] EST GFR - AA 166 mL/min Normal >60 [facility] Comment on above: Order Comment: 'TROP ' Serial specimen #1, #2 or #3: 1 Result Comment: Afri can Niuean GFR Calc Performed By: #### L 500.3400, L501.2450, L100.0100, L500.2500, L501.4020, L300.8000 #### [facility] [address] [place], [address] GAP 6 Normal 5-15 [facility] Comment on above: Order Comment: 'TROP ' Serial specimen #1, #2 or #3: 1 Performed By: #### L 500.3400, L501.2450, L100.0100, L500.2500, L501.4020, L300.8000 #### [facility] [address] [place], [place], [address] (581 GFR/1.73 sq M.predicted among non-blacks MDRD (S/P/Bld) [Vol rate/Area] 137 mL/min/{1.73_m2} Normal >60 [facility] Comment on above: Order Comment: 'TROP ' Serial specimen #1, #2 or #3: 1 Result Comment: Non- GFR Calc Performed By: #### L 500.3400, L501.2450, L100.0100, L500.2500, L501.4020, L300.8000 #### [facility] [address] [place], [address] Glucose [Mass/Vol] 122 mg/dL High 74-106 [facility] Comment on above: Order Comment: 'TROP ' Serial specimen #1, #2 or #3: 1 Result Comment: Fast ing Glucose result from 100 to 125 mg/dL suggests IMPAIRED HOMEOSTASIS per A.D.A. criteria. Performed By: #### L 500.3400, L501.2450, L100.0100, L500.2500, L501.4020, L300.8000 #### [facility] [address] [place], [address] Potassium [Moles/Vol] 3.6 mmol/L Normal 3.5-5.1 [facility] Comment on above: Order Comment: 'TROP ' Serial specimen #1, #2 or #3: 1 Performed By: #### L 500.3400, L501.2450, L100.0100, L500.2500, L501.4020, L300.8000 #### [facility] [address] [place], [address] Sodium [Moles/Vol] 137 mmol/L Normal 136-145 [facility] Comment on above: Order Comment: 'TROP ' Serial specimen #1, #2 or #3: 1 Performed By: #### L 500.3400, L501.2450, L100.0100, L500.2500, L501.4020, L300.8000 #### [facility] [address] [place], [address] Urea nitrogen [Mass/Vol] 11 mg/dL Normal 7-18 [facility] Comment on above: Order Comment: 'TROP ' Serial specimen #1, #2 or #3: 1 Performed By: #### L 500.3400, L501.2450, L100.0100, L500.2500, L501.4020, L300.8000 #### [facility] [address] [place], [address] Basophil percentageOrdered B y: Richie Borden on 07-13-2024 Basophils/100 WBC (Bld) 0.5 % 0-1 [facility] Bilirubin directOrdered By: Richie Borden on 07-13-2024 Bilirubin.direct [Mass/Vol] 0.15 mg/dL 0.00-0.3 0 [facility] Bilirubin, totalOrdered By: Richie Borden on 07-13-2024 Bilirubin [Mass/Vol] 0.30 mg/dL 0.20-1.00 [facility] Comment on above: For patients on eltr ombopag therapy, use of Dimension Ada TBIL is not recommended. Blood urea nitrogen (BUN)/cr eatinine ratioOrdered By: Richie Borden on 07-13-2024 Urea nitrogen/Creatinine [Mass ratio] 17.5 mg/mg 10-20 [facility] CBC W/Diff, Automatedon 06-29 Absolute Lymph 3.25 X10 3/uL Normal 0.83-4.51 [facility] Comment on above: Performed By: #### L 500.3400, L501.2450, L100.0100, L500.2500, L501.4020, L300.8000 #### [facility] [address] [place], [address] Absolute Neut 9.2 X10 3/uL High 2.0-7.7 [facility] Comment on above: Performed By: #### L 500.3400, L501.2450, L100.0100, L500.2500, L501.4020, L300.8000 #### [facility] [address] [place], [address] Basophils/100 WBC (Bld) 0.5 % Normal 0-1 [facility] Comment on above: Performed By: #### L 500.3400, L501.2450, L100.0100, L500.2500, L501.4020, L300.8000 #### [facility] [address] [place], [address] Eosinophils/100 WBC (Bld) 3.1 % Normal 0-5 [facility] Comment on above: Performed By: #### L 500.3400, L501.2450, L100.0100, L500.2500, L501.4020, L300.8000 #### [facility] [address] [place], [address] Erythrocyte distribution width (RBC) [Ratio] 15.9 % High 11.6-14.6 [facility] Comment on above: Performed By: #### L 500.3400, L501.2450, L100.0100, L500.2500, L501.4020, L300.8000 #### [facility] [address] [place], [address] Hematocrit (Bld) [Volume fraction] 43.8 % Normal 40-54 [facility] Comment on above: Performed By: #### L 500.3400, L501.2450, L100.0100, L500.2500, L501.4020, L300.8000 #### [facility] [address] [place], [address] Hemoglobin (Bld) [Mass/Vol] 14.2 g/dL Normal 13.0-16. 5 [facility] Comment on above: Performed By: #### L 500.3400, L501.2450, L100.0100, L500.2500, L501.4020, L300.8000 #### [facility] [address] [facility] [place], [address] IG% 0.400 Normal 0.0-0.9 [facility] Comment on above: Result Comment: IG% - Immature Granulocytes (promyelocytes, myelocytes and metamyelocytes) > 1% indicates that a LEFT SHIFT is Present. Performed By: #### L 500.3400, L501.2450, L100.0100, L500.2500, L501.4020, L300.8000 #### [facility] [address] [facility] [place], [address] Lymphocytes/100 WBC (Bld) 22.6 % Normal 19-41 [facility] Comment on above: Performed By: #### L 500.3400, L501.2450, L100.0100, L500.2500, L501.4020, L300.8000 #### [facility] [address] [place], [address] MCH (RBC) [Entitic mass] 26.8 pg Low 27.0-32.0 [facility] Comment on above: Performed By: #### L 500.3400, L501.2450, L100.0100, L500.2500, L501.4020, L300.8000 #### [facility] [address] [place], [address] MCHC (RBC) [Mass/Vol] 32.4 g/dL Normal 32-36 [facility] Comment on above: Performed By: #### L 500.3400, L501.2450, L100.0100, L500.2500, L501.4020, L300.8000 #### [facility] [address] [place], [address] MCV (RBC) [Entitic vol] 82.6 fL Normal 80-94 [facility] Comment on above: Performed By: #### L 500.3400, L501.2450, L100.0100, L500.2500, L501.4020, L300.8000 #### [facility] [address] [place], [address] Monocytes/100 WBC (Bld) 9.5 % Normal 0-10 [facility] Comment on above: Performed By: #### L 500.3400, L501.2450, L100.0100, L500.2500, L501.4020, L300.8000 #### [facility] [address] [place], [address] Neutrophils/100 WBC (Bld) 63.9 % Normal 47-70 [facility] Comment on above: Performed By: #### L 500.3400, L501.2450, L100.0100, L500.2500, L501.4020, L300.8000 #### [facility] [address] [place], [address] Nucleated RBC (Bld) [#/Vol] 0 10*3/uL Normal 0-5 [facility] Comment on above: Performed By: #### L 500.3400, L501.2450, L100.0100, L500.2500, L501.4020, L300.8000 #### [facility] [address] [place], [address] Platelet mean volume (Bld) [Entitic vol] 8.6 fL Normal 6.2-12.0 [facility] Comment on above: Performed By: #### L 500.3400, L501.2450, L100.0100, L500.2500, L501.4020, L300.8000 #### [facility] [address] [place], [address] Platelets (Bld) [#/Vol] 477 10*3/uL High 150-450 [facility] Comment on above: Performed By: #### L 500.3400, L501.2450, L100.0100, L500.2500, L501.4020, L300.8000 #### [facility] [address] [place], [address] RBC (Bld) [#/Vol] 5.30 10*6/uL Normal 4.6-6.2 [facility] Comment on above: Performed By: #### L 500.3400, L501.2450, L100.0100, L500.2500, L501.4020, L300.8000 #### [facility] [address] [place], [address] RDW SD 47.9 fl High 35.1-43.9 [facility] Comment on above: Performed By: #### L 500.3400, L501.2450, L100.0100, L500.2500, L501.4020, L300.8000 #### [facility] [address] [place], [address] WBC (Bld) [#/Vol] 14.4 10*3/uL High 4.4-11.0 [facility] Comment on above: Performed By: #### L 500.3400, L501.2450, L100.0100, L500.2500, L501.4020, L300.8000 #### [facility] [address] [place], [address] CTA Chest W/WO Contraston CTA Chest W/WO Contrast [facility] Imaging Services [address] [place] [address] CTA Chest W/WO Contrast MR#: [id number] Acct: [id number] Name: BAUTISTA RUFFIN Rep #: [id number] : 1960 M 64 From: Emile Bonner i, DO PCP: [facility] Status: REG ER Study: CTA Chest W/WO Contrast Date of Exam: 07/13/24 Exam# [id number] Ordering Dr: Richie Borden DO PROCEDURE: CT [...] use of iterative reconstruction technique). [facility] CC: Richie Borden DO; [facility] Mushroom Growing Supervisor: Signed Normal [facility] Carbon dioxide measurementOr dered By: Richie Borden on 07-13-2024 CO2 [Moles/Vol] 27.0 mmol/L 21.0-32.0 [facility] Chest 1 View (Portable)on Chest 1 View (Portable) [facility] Imaging Services [address] [place] [address] [id number] Chest 1 View (Portable) MR#: [id number] Acct: [id number] Name: BAUTISTA RUFFIN Rep #: [id number] : 1960 M 64 From: Emile Bonner i, DO PCP: [facility] Status: REG ER Study: Chest 1 View (Portable) Date of Exam: 07/13/24 Exam# [id number] Ordering Dr: Richie Borden DO PROCEDURE: Portable [...] to evaluate for metabolic activity. [facility] CC: Richie Borden DO; [facility] Mushroom Growing Supervisor: Signed Normal [facility] Chloride measurementOrdered By: Richie Borden on 07-13-2024 Chloride [Moles/Vol] 104 mmol/L 98-107 [facility] D-Dimer Quantitative (DVT/PE )on 07-13-2024 D-DIMER QUANT 0.88 FEU/ug/m Invalid Interpretation Code 0.27-0.49 [facility] Comment on above: Result Comment: D-Di rick ELEVATED (>0.49): Additional studies and clinical assessments are indicated to conclude diagnosis of: Deep Vein Thrombosis (DVT) or Pulmonary Embolism (PE) CRITICAL VALUE CALLED TO ABISAI CHASE 07/13/24 0417 Graham Osorio. RESULTS READ BACK BY SAME. Performed By: #### L 500.3400, L501.2450, L100.0100, L500.2500, L501.4020, L300.8000 #### [facility] [address] [place], [address] D-dimer measurement for deep venous thrombosisOrdered By: Richie Borden on 07-13-2024 D-Dimer Quantitative (PE/DVT) 0.88 FEU/ug/m High 0.27-0.49 [facility] Comment on above: D-Dimer ELEVATED (>0 .49): Additional studies and clinicalassessments are indicated to conclude diagnosis of:Deep Vein Thrombosis (DVT) or Pulmonary Embolism (PE)CRITICAL VALUE CALLED TO RN [facility]07/13/24 0417 Graham Osorio.RESULTS READ BACK BY SAME. Emergency Department Summary on 07-13-2024 Emergency Department Summary [facility] Medical Records Department [address] [place] [address] Emergency Department Summary 07/13/24 MR#: [id number] Acct: [id number] Name: BAUTISTA RUFFIN Rep #: [id number] : 1960 64 From: Richie Borden DO PCP: [facility] Status:REG ER Location: ED HPI History of [...] symptoms and therefore comes in for evaluation [facility] Medical History Sacral decubitus ulcer, stage III Atherosclerotic heart disease of [place] coronary artery without angina pectoris Depression Chronic [...] L Temperature (more content not included)... Normal [facility] Eosinophil percentageOrdered By: Richie Borden on 07-13-2024 Eosinophils/100 WBC (Bld) 3.1 % 0-5 [facility] Erythrocyte distribution wid th (RBC) [Ratio]Ordered By: Richie Borden on 07-13-2024 Erythrocyte distribution width (RBC) [Entitic vol] 47.9 fL High 35.1-43.9 [facility] Erythrocyte distribution wid th ratioOrdered By: Richie Borden on 07-13-2024 Erythrocyte distribution width (RBC) [Ratio] 15.9 % High 11.6-14.6 [facility] Erythrocyte distribution wid th standard deviationOrdered By: Richie Borden on 07-13-2024 Erythrocyte distribution width (RBC) [Ratio] 47.9 fl High 35.1-43.9 [facility] Estimated glomerular filtrat ion rate (GFR) AmericanOrdered By: Richie Borden on 07-13-2024 Estimated GFR (MDRD) Amer 166 mL/min >60 [facility] Comment on above: GFR Calc Estimation of creatinine elzbieta aranceOrdered By: Richie Borden on 07-13-2024 Estimated Creatinine Clearance Calc 120.02 ml/min [facility] Glomerular filtration rate ( GFR) estimationOrdered By: Richie Borden on 07-13-2024 Estimated GFR (MDRD) Non-Af Amer 137 mL/min >60 [facility] Comment on above: Non- GFR Calc GFR/1.73 sq M.predicted among non-blacks MDRD (S/P/Bld) [Vol rate/Area] 137 mL/min/{1.73_m2} >60 [facility] Comment on above: Non- GFR Calc Glucose measurementOrdered B y: Richie Borden on 07-13-2024 Glucose [Mass/Vol] 122 mg/dL High 74-106 [facility] Comment on above: Fasting Glucose resu lt from 100 to 125 mg/dL suggests IMPAIRED HOMEOSTASIS per A.D.A. criteria. Hematocrit Auto (Bld) [Volum e fraction]Ordered By: Richie Borden on 07-13-2024 Hematocrit (Bld) [Volume fraction] 43.8 % 40-54 [facility] Hemoglobin measurementOrdere d By: Richie Borden on 07-13-2024 Hemoglobin (Bld) [Mass/Vol] 14.2 g/dL 13.0-16. 5 [facility] Immature granulocytes/100 WB C Auto (Bld)Ordered By: Richie Borden on 07-13-2024 Immature granulocytes/100 WBC (Bld) 0.400 % 0.0-0.9 [facility] Comment on above: IG% - Immature Granu locytes (promyelocytes, myelocytes and metamyelocytes) > 1% indicates that a LEFT SHIFT is Present. Influenza virus A and B and SARS-CoV-2 (COVID-19) and Respiratory syncytial virus RNAOrdered By: Richie Borden on 07-13-2024 SARS-CoV-2 (COVID-19) RNA ZEKE+probe Ql (Unsp spec) [facility] L501.4020on 07-13-2024 TROPONIN-I HS 6 pg/mL Normal 3.0-78.0 [facility] Comment on above: Order Comment: 'TROP ' Serial specimen #1, #2 or #3: 2 Result Comment: Plea se Note: New Test Units and Gender Specific Reference Ranges. For more information see Policy Stat Procedure Ada High Sensitivity Troponin (TNIH) and attachments. Performed By: #### L 500.3400, L501.2450, L100.0100, L500.2500, L501.4020, L300.8000 #### [facility] [address] [place], [address] TROPONIN-I HS 7 pg/mL Normal 3.0-78.0 [facility] Comment on above: Order Comment: 'TROP ' Serial specimen #1, #2 or #3: 1 Result Comment: Siri anaya Note: New Test Units and Gender Specific Reference Ranges. For more information see Policy Stat Procedure Ada High Sensitivity Troponin (TNIH) and attachments. Performed By: #### L 500.3400, L501.2450, L100.0100, L500.2500, L501.4020, L300.8000 #### [facility] [address] [place], [place], [id number] Laboratory - Chemistry and C hemistry - challengeOrdered By: Richie Borden on 07-13-2024 AST [Catalytic activity/Vol] 25 U/L 15-37 [facility] Lipaseon 07-13-2024 Lipase [Catalytic activity/Vol] 17 U/L Low 73-393 [facility] Comment on above: Order Comment: 'TROP ' Serial specimen #1, #2 or #3: 1 Performed By: #### L 500.3400, L501.2450, L100.0100, L500.2500, L501.4020, L300.8000 #### [facility] [address] [place], [address] Lipase measurementOrdered By : Richie Borden on 07-13-2024 Lipase [Catalytic activity/Vol] 17 U/L Low 73-393 [facility] Liver Profileon 07-13-2024 Albumin [Mass/Vol] 2.5 g/dL Low 3.2-5.0 [facility] Comment on above: Order Comment: 'TROP ' Serial specimen #1, #2 or #3: 1 Performed By: #### L 500.3400, L501.2450, L100.0100, L500.2500, L501.4020, L300.8000 #### [facility] [address] [place], [address] ALK P 124 U/L High 45-117 [facility] Comment on above: Order Comment: 'TROP ' Serial specimen #1, #2 or #3: 1 Performed By: #### L 500.3400, L501.2450, L100.0100, L500.2500, L501.4020, L300.8000 #### [facility] [address] [place], [address] ALT [Catalytic activity/Vol] 24 U/L Normal 16-61 [facility] Comment on above: Order Comment: 'TROP ' Serial specimen #1, #2 or #3: 1 Performed By: #### L 500.3400, L501.2450, L100.0100, L500.2500, L501.4020, L300.8000 #### [facility] [address] [place], [address] AST [Catalytic activity/Vol] 25 U/L Normal 15-37 [facility] Comment on above: Order Comment: 'TROP ' Serial specimen #1, #2 or #3: 1 Performed By: #### L 500.3400, L501.2450, L100.0100, L500.2500, L501.4020, L300.8000 #### [facility] [address] [place], [address] Bilirubin [Mass/Vol] 0.30 mg/dL Normal 0.20-1.00 [facility] Comment on above: Order Comment: 'TROP ' Serial specimen #1, #2 or #3: 1 Result Comment: For patients on eltrombopag therapy, use of Dimension Ada TBIL is not recommended. Performed By: #### L 500.3400, L501.2450, L100.0100, L500.2500, L501.4020, L300.8000 #### [facility] [address] [place], [address] Bilirubin.direct [Mass/Vol] 0.15 mg/dL Normal 0.00-0.3 0 [facility] Comment on above: Order Comment: 'TROP ' Serial specimen #1, #2 or #3: 1 Performed By: #### L 500.3400, L501.2450, L100.0100, L500.2500, L501.4020, L300.8000 #### [facility] [address] [place], [address] Globulin (S) [Mass/Vol] 5.7 g/dL High 2.2-4.2 [facility] Comment on above: Order Comment: 'TROP ' Serial specimen #1, #2 or #3: 1 Performed By: #### L 500.3400, L501.2450, L100.0100, L500.2500, L501.4020, L300.8000 #### [facility] [address] [place], [address] T PROT 8.2 g/dL Normal 6.4-8.2 [facility] Comment on above: Order Comment: 'TROP ' Serial specimen #1, #2 or #3: 1 Performed By: #### L 500.3400, L501.2450, L100.0100, L500.2500, L501.4020, L300.8000 #### [facility] [address] [place], [address] Lymphocytes Auto (Unsp spec) [#/Vol]Ordered By: Richie Borden on 07-13-2024 Lymphocytes (Bld) [#/Vol] 3.25 10*3/uL 0.83-4.5 1 [facility] Lymphocytes/100 WBC Auto (Un sp spec)Ordered By: Richie Borden on 07-13-2024 Lymphocytes/100 WBC (Bld) 22.6 % 19-41 [facility] M100.678on 07-13-2024 M100.678 SARS-CoV-2 (COVID 19 ) Negative INFLUENZA A Negative INFLUENZA B Negative RSV PCR Negative Normal [facility] Comment on above: Performed By: #### L 500.3400, L501.2450, L100.0100, L500.2500, L501.4020, L300.8000 #### [facility] [address] [place], [address] MCV (mean corpuscular volume ) determinationOrdered By: Richie Borden on 07-13-2024 MCV (RBC) [Entitic vol] 82.6 fL 80-94 [facility] Mean corpuscular hemoglobin (MCH) determinationOrdered By: Richie Borden on 07-13-2024 MCH (RBC) [Entitic mass] 26.8 pg Low 27.0-32.0 [facility] Mean corpuscular hemoglobin concentration (MCHC) determinationOrdered By: Richie Borden on 07-13-2024 MCHC (RBC) [Mass/Vol] 32.4 g/dL 32-36 [facility] Mean platelet volume determi nationOrdered By: Richie Borden on 07-13-2024 Platelet mean volume (Bld) [Entitic vol] 8.6 fL 6.2-12.0 [facility] Monocyte percentageOrdered B y: Richie Borden on 07-13-2024 Monocytes/100 WBC (Bld) 9.5 % 0-10 [facility] Neutrophil percentageOrdered By: Richie Borden on 07-13-2024 Neutrophils/100 WBC (Bld) 63.9 % 47-70 [facility] Nucleated red blood cell per centageOrdered By: Richie Borden on 07-13-2024 Nucleated RBC/100 WBC (Bld) [Ratio] 0 % 0-5 [facility] Platelet countOrdered By: Yvonne Borden on 07-13-2024 Platelets (Bld) [#/Vol] 477 10*3/uL High 150-450 [facility] Potassium measurementOrdered By: Richie Borden on 07-13-2024 Potassium [Moles/Vol] 3.6 mmol/L 3.5-5.1 [facility] RBC Auto (Bld) [#/Vol]Ordere d By: Richie Borden on 07-13-2024 RBC (Bld) [#/Vol] 5.30 10*6/uL 4.6-6.2 [facility] Serum anion gap measurementO rdered By: Richie Borden on 07-13-2024 Anion gap [Moles/Vol] 6 mmol/L 5-15 [facility] Serum globulin measurementOr dered By: Richie Borden on 07-13-2024 Globulin (S) [Mass/Vol] 5.7 g/dL High 2.2-4.2 [facility] Serum or plasma alanine hooper otransferase (ALT) measurementOrdered By: Richie Borden on 07-13-2024 ALT [Catalytic activity/Vol] 24 U/L 16-61 [facility] Serum or plasma albumin shantal urement (mass/volume)Ordered By: Richie Borden on 07-13-2024 Albumin [Mass/Vol] 2.5 g/dL Low 3.2-5.0 [facility] Serum or plasma alkaline radha sphatase measurementOrdered By: Richie Borden on 07-13-2024 ALP [Catalytic activity/Vol] 124 U/L High 45-117 [facility] Serum or plasma calcium shantal urement (mass/volume)Ordered By: Richie Borden on 07-13-2024 Calcium [Mass/Vol] 9.4 mg/dL 8.5-10.1 [facility] Serum or plasma creatinine m easurement (mass/volume)Ordered By: Richie Borden on 07-13-2024 Creatinine [Mass/Vol] 0.63 mg/dL Low 0.70-1.30 [facility] Comment on above: The validity of the calculated GFR & GFRAA in patients over 70 years has not been determined. Clinical correlation is essential. Serum or plasma urea nitroge n measurement (mass/volume)Ordered By: Richie Borden on 07-13-2024 Urea nitrogen [Mass/Vol] 11 mg/dL 7-18 [facility] Sodium levelOrdered By: Yuriy Borden on 07-13-2024 Sodium [Moles/Vol] 137 mmol/L 136-145 [facility] Total proteinOrdered By: Isidro Borden on 07-13-2024 Protein [Mass/Vol] 8.2 g/dL 6.4-8.2 [facility] Troponin IOrdered By: Richie Borden on 07-13-2024 Troponin I 6 pg/mL 3.0-78.0 [facility] Comment on above: Please Note: New Tanya t Units and Gender Specific Reference Ranges. For more information see Policy Stat Procedure Ada High Sensitivity Troponin (TNIH) and attachments. Troponin I High Sensitivity 6 pg/mL 3.0-78.0 [facility] Comment on above: Please Note: New Tayna t Units and Gender Specific Reference Ranges. For more information see Policy Stat Procedure Ada High Sensitivity Troponin (TNIH) and attachments. White blood cell (WBC) count Ordered By: Richie Borden on 07-13-2024 WBC (Bld) [#/Vol] 14.4 10*3/uL High 4.4-11.0 [facility] Culture, Blood (WB)on 2024 CUB Blood cultures x2, from two different sites No growth in 5 days. Normal [facility] Comment on above: Performed By: #### L 100.0100, L503.6005, L500.4050, L300.4310, L300.3900, M200.1000 ####[facility] [address] [facility] [place], [address] Discharge Instructionon 05-30 Discharge Instruction [facility] Medical Records Department [address] [place] [address] Instructions for Home/Discharge Instructions 06/19/24 1050 MR#: [id number] Acct: [id number] Name: BAUTISTA RUFFIN Rep #: [id number] : 1960 64 From: Darian Arceo MD PCP: ID Hospital Status:ADM IN Discharge Instructions DC O2, CPAP, BIPAP needs Home O2 Discharge instructions: No Follow Up Care Test Results: Test results from this visit will be discussed in further detail at your follow-up appointment, if applicable. Discharge Plan Admission Admit Date/Time: 06/16/24 19:56 Primary Reason for Your Visit: Pseudomonas associated CAUTI, nonadherence Attending Provider: Darian Arceo Primary Care Provider: Hospital,[facility] Consulting Providers: Ronak Quiroz Instructions Additional Instructions [...] mg PO BID Referrals / Follow Up: [facility] [Primary Care Provider] - Maulik Jenkins MD [Med Staff - Active Staff] - Within 1 Month Disposition Disposition (needs filled in before D/C Order can be placed): Home Health Service 06/19/24 1145 Darian Arceo MD CC: Dr. Ronak Quiroz, DO; [facility] Signed Normal [facility] Magnesiumon 06-18-2024 Magnesium [Mass/Vol] 1.9 mg/dL Normal 1.6-2.6 [facility] Comment on above: Performed By: #### L 500.3400, L501.2450, L100.0100, L500.2500, L501.4020, L300.8000 #### [facility] [address] [place], [place], [address] Magnesium measurementOrdered By: Ronak Cui on 06-18-2024 Magnesium [Mass/Vol] 1.9 mg/dL 1.6-2.6 [facility] Phosphoruson 06-18-2024 Phosphate [Mass/Vol] 3.7 mg/dL Normal 2.5-4.9 [facility] Comment on above: Performed By: #### L 500.3400, L501.2450, L100.0100, L500.2500, L501.4020, L300.8000 #### [facility] [address] [place], [place], [id number] Phosphorus measurementOrdere d By: Ronak Cui on 06-18-2024 Phosphorus Level 3.7 mg/dL 2.5-4.9 [facility] Urine Cultureon 06-18-2024 URC Below infection leve l. GNR Poss Pseudomonas sp Wishon Count 1000-10,000 Yeast, not Joleen albicans Yeast, not Joleen albicans Normal [facility] Comment on above: Performed By: #### L 500.3400, L501.2450, L100.0100, L500.2500, L501.4020, L300.8000 #### [facility] [address] [place], [place], [id number] Absolute neutrophil countOrd ered By: Ronak Cui on 06-17-2024 Neutrophils (Bld) [#/Vol] 6.1 10*3/uL 2.0-7.7 [facility] Albumin to globulin ratioOrd ered By: Ronak Cui on 06-17-2024 Albumin/Globulin [Mass ratio] 0.6 {ratio} Low 0.9-2.4 [facility] Basophil percentageOrdered B y: Ronak Cui on 06-17-2024 Basophils/100 WBC (Bld) 0.7 % 0-1 [facility] Bilirubin, totalOrdered By: oRnak Cui on 06-17-2024 Bilirubin [Mass/Vol] 0.40 mg/dL 0.20-1.00 [facility] Comment on above: For patients on eltr ombopag therapy, use of Dimension Ada TBIL is not recommended. Blood urea nitrogen (BUN)/cr eatinine ratioOrdered By: Ronak Cui on 06-17-2024 Urea nitrogen/Creatinine [Mass ratio] 14.0 mg/mg 03-17 [facility] CBC W/Diff, Automatedon 05-30 Absolute Lymph 2.50 X10 3/uL Normal 0.83-4.51 [facility] Comment on above: Performed By: #### L 500.3400, L501.2450, L100.0100, L500.2500, L501.4020, L300.8000 #### [facility] [address] [place], [address] Absolute Neut 6.1 X10 3/uL Normal 2.0-7.7 [facility] Comment on above: Performed By: #### L 500.3400, L501.2450, L100.0100, L500.2500, L501.4020, L300.8000 #### [facility] [address] [place], [address] Basophils/100 WBC (Bld) 0.7 % Normal 0-1 [facility] Comment on above: Performed By: #### L 500.3400, L501.2450, L100.0100, L500.2500, L501.4020, L300.8000 #### [facility] [address] [place], [address] Eosinophils/100 WBC (Bld) 5.5 % High 0-5 [facility] Comment on above: Performed By: #### L 500.3400, L501.2450, L100.0100, L500.2500, L501.4020, L300.8000 #### [facility] [address] [place], [address] Erythrocyte distribution width (RBC) [Ratio] 16.3 % High 11.6-14.6 [facility] Comment on above: Performed By: #### L 500.3400, L501.2450, L100.0100, L500.2500, L501.4020, L300.8000 #### [facility] [address] [place], [address] Hematocrit (Bld) [Volume fraction] 42.7 % Normal 40-54 [facility] Comment on above: Performed By: #### L 500.3400, L501.2450, L100.0100, L500.2500, L501.4020, L300.8000 #### [facility] [address] [place], [address] Hemoglobin (Bld) [Mass/Vol] 13.9 g/dL Normal 13.0-16. 5 [facility] Comment on above: Performed By: #### L 500.3400, L501.2450, L100.0100, L500.2500, L501.4020, L300.8000 #### [facility] [address] [place], [address] IG% 0.700 Normal 0.0-0.9 [facility] Comment on above: Result Comment: IG% - Immature Granulocytes (promyelocytes, myelocytes and metamyelocytes) > 1% indicates that a LEFT SHIFT is Present. Performed By: #### L 500.3400, L501.2450, L100.0100, L500.2500, L501.4020, L300.8000 #### [facility] [address] [place], [address] Lymphocytes/100 WBC (Bld) 24.1 % Normal 19-41 [facility] Comment on above: Performed By: #### L 500.3400, L501.2450, L100.0100, L500.2500, L501.4020, L300.8000 #### [facility] [address] [place], [address] MCH (RBC) [Entitic mass] 27.7 pg Normal 27.0-32.0 [facility] Comment on above: Performed By: #### L 500.3400, L501.2450, L100.0100, L500.2500, L501.4020, L300.8000 #### [facility] [address] [place], [address] MCHC (RBC) [Mass/Vol] 32.6 g/dL Normal 32-36 [facility] Comment on above: Performed By: #### L 500.3400, L501.2450, L100.0100, L500.2500, L501.4020, L300.8000 #### [facility] [address] [place], [address] MCV (RBC) [Entitic vol] 85.2 fL Normal 80-94 [facility] Comment on above: Performed By: #### L 500.3400, L501.2450, L100.0100, L500.2500, L501.4020, L300.8000 #### [facility] [address] [place], [address] Monocytes/100 WBC (Bld) 9.9 % Normal 0-10 [facility] Comment on above: Performed By: #### L 500.3400, L501.2450, L100.0100, L500.2500, L501.4020, L300.8000 #### [facility] [address] [place], [address] Neutrophils/100 WBC (Bld) 59.1 % Normal 47-70 [facility] Comment on above: Performed By: #### L 500.3400, L501.2450, L100.0100, L500.2500, L501.4020, L300.8000 #### [facility] [address] [place], [address] Nucleated RBC (Bld) [#/Vol] 0 10*3/uL Normal 0-5 [facility] Comment on above: Performed By: #### L 500.3400, L501.2450, L100.0100, L500.2500, L501.4020, L300.8000 #### [facility] [address] [place], [address] Platelet mean volume (Bld) [Entitic vol] 9.0 fL Normal 6.2-12.0 [facility] Comment on above: Performed By: #### L 500.3400, L501.2450, L100.0100, L500.2500, L501.4020, L300.8000 #### [facility] [address] [place], [address] Platelets (Bld) [#/Vol] 363 10*3/uL Normal 150-450 [facility] Comment on above: Performed By: #### L 500.3400, L501.2450, L100.0100, L500.2500, L501.4020, L300.8000 #### [facility] [address] [place], [address] RBC (Bld) [#/Vol] 5.01 10*6/uL Normal 4.6-6.2 [facility] Comment on above: Performed By: #### L 500.3400, L501.2450, L100.0100, L500.2500, L501.4020, L300.8000 #### [facility] [address] [place], [address] RDW SD 50.2 fl High 35.1-43.9 [facility] Comment on above: Performed By: #### L 500.3400, L501.2450, L100.0100, L500.2500, L501.4020, L300.8000 #### [facility] [address] [place], [address] WBC (Bld) [#/Vol] 10.4 10*3/uL Normal 4.4-11.0 [facility] Comment on above: Performed By: #### L 500.3400, L501.2450, L100.0100, L500.2500, L501.4020, L300.8000 #### [facility] [address] [place], [address] Carbon dioxide measurementOr dered By: Ronak Cui on 06-17-2024 CO2 [Moles/Vol] 24.0 mmol/L 21.0-32.0 [facility] Chloride measurementOrdered By: Ronak Cui on 06-17-2024 Chloride [Moles/Vol] 108 mmol/L High 98-107 [facility] Comprehensive Metabolic Prof ilon 06-17-2024 Albumin [Mass/Vol] 2.4 g/dL Low 3.2-5.0 [facility] Comment on above: Performed By: #### L 500.3400, L501.2450, L100.0100, L500.2500, L501.4020, L300.8000 #### [facility] [address] [place], [address] Albumin/Globulin [Mass ratio] 0.6 {ratio} Low 0.9-2.4 [facility] Comment on above: Performed By: #### L 500.3400, L501.2450, L100.0100, L500.2500, L501.4020, L300.8000 #### [facility] [address] [place], [address] ALK P 130 U/L High 45-117 [facility] Comment on above: Performed By: #### L 500.3400, L501.2450, L100.0100, L500.2500, L501.4020, L300.8000 #### [facility] [address] [place], [address] ALT [Catalytic activity/Vol] 17 U/L Normal 16-61 [facility] Comment on above: Performed By: #### L 500.3400, L501.2450, L100.0100, L500.2500, L501.4020, L300.8000 #### [facility] [address] [place], [address] AST [Catalytic activity/Vol] 20 U/L Normal 15-37 [facility] Comment on above: Performed By: #### L 500.3400, L501.2450, L100.0100, L500.2500, L501.4020, L300.8000 #### [facility] [address] [place], [address] Bilirubin [Mass/Vol] 0.40 mg/dL Normal 0.20-1.00 [facility] Comment on above: Result Comment: For patients on eltrombopag therapy, use of Dimension Ada TBIL is not recommended. Performed By: #### L 500.3400, L501.2450, L100.0100, L500.2500, L501.4020, L300.8000 #### [facility] [address] [place], [address] BUN/CRE 14.0 RATIO Normal 10-20 [facility] Comment on above: Performed By: #### L 500.3400, L501.2450, L100.0100, L500.2500, L501.4020, L300.8000 #### [facility] [address] [place], [address] CA,Total 8.9 mg/dL Normal 8.5-10.1 [facility] Comment on above: Performed By: #### L 500.3400, L501.2450, L100.0100, L500.2500, L501.4020, L300.8000 #### [facility] [address] [place], [address] Chloride [Moles/Vol] 108 mmol/L High 98-107 [facility] Comment on above: Performed By: #### L 500.3400, L501.2450, L100.0100, L500.2500, L501.4020, L300.8000 #### [facility] [address] [place], [address] CO2 [Moles/Vol] 24.0 mmol/L Normal 21.0-32.0 [facility] Comment on above: Performed By: #### L 500.3400, L501.2450, L100.0100, L500.2500, L501.4020, L300.8000 #### [facility] [address] [place], [address] Creatinine [Mass/Vol] 0.57 mg/dL Low 0.70-1.30 [facility] Comment on above: Result Comment: The validity of the calculated GFR GFRAA in patients over 70 years has not been determined. Clinical correlation is essential. Performed By: #### L 500.3400, L501.2450, L100.0100, L500.2500, L501.4020, L300.8000 #### [facility] [address] [place], [address] ECRCL 132.65 ml/min Normal [facility] Comment on above: Performed By: #### L 500.3400, L501.2450, L100.0100, L500.2500, L501.4020, L300.8000 #### [facility] [address] [place], [address] EST GFR - AA 184 mL/min Normal >60 [facility] Comment on above: Result Comment: Afri can Niuean GFR Calc Performed By: #### L 500.3400, L501.2450, L100.0100, L500.2500, L501.4020, L300.8000 #### [facility] [address] [place], [address] GAP 6 Normal 5-15 [facility] Comment on above: Performed By: #### L 500.3400, L501.2450, L100.0100, L500.2500, L501.4020, L300.8000 #### [facility] [address] [place], [address] GFR/1.73 sq M.predicted among non-blacks MDRD (S/P/Bld) [Vol rate/Area] 152 mL/min/{1.73_m2} Normal >60 [facility] Comment on above: Result Comment: Non- GFR Calc Performed By: #### L 500.3400, L501.2450, L100.0100, L500.2500, L501.4020, L300.8000 #### [facility] [address] [place], [address] Globulin (S) [Mass/Vol] 4.3 g/dL High 2.2-4.2 [facility] Comment on above: Performed By: #### L 500.3400, L501.2450, L100.0100, L500.2500, L501.4020, L300.8000 #### [facility] [address] [place], [address] Glucose [Mass/Vol] 101 mg/dL Normal 74-106 [facility] Comment on above: Result Comment: Fast ing Glucose result from 100 to 125 mg/dL suggests IMPAIRED HOMEOSTASIS per A.D.A. criteria. Performed By: #### L 500.3400, L501.2450, L100.0100, L500.2500, L501.4020, L300.8000 #### [facility] [address] [place], [address] Potassium [Moles/Vol] 3.5 mmol/L Normal 3.5-5.1 [facility] Comment on above: Performed By: #### L 500.3400, L501.2450, L100.0100, L500.2500, L501.4020, L300.8000 #### [facility] [address] [place], [address] Sodium [Moles/Vol] 139 mmol/L Normal 136-145 [facility] Comment on above: Performed By: #### L 500.3400, L501.2450, L100.0100, L500.2500, L501.4020, L300.8000 #### [facility] [address] [place], [address] T PROT 6.7 g/dL Normal 6.4-8.2 [facility] Comment on above: Performed By: #### L 500.3400, L501.2450, L100.0100, L500.2500, L501.4020, L300.8000 #### [facility] [address] [place], [address] Urea nitrogen [Mass/Vol] 8 mg/dL Normal 7-18 [facility] Comment on above: Performed By: #### L 500.3400, L501.2450, L100.0100, L500.2500, L501.4020, L300.8000 #### [facility] [address] [place], [address] Culture, Blood (WB)on 2024 CUB Blood cultures x2, from two different sites No growth in 5 days. Normal [facility] Comment on above: Performed By: #### L 500.3400, L501.2450, L100.0100, L500.2500, L501.4020, L300.8000 #### [facility] [address] [place], [address] CUB Blood cultures x2, from two different sites No growth in 5 days. Normal [facility] Comment on above: Performed By: #### L 500.3400, L501.2450, L100.0100, L500.2500, L501.4020, L300.8000 #### [facility] [place], [address] Eosinophil percentageOrdered By: Ronak Cui on 06-17-2024 Eosinophils/100 WBC (Bld) 5.5 % High 0-5 [facility] Erythrocyte distribution wid th (RBC) [Ratio]Ordered By: Ronak Cui on 06-17-2024 Erythrocyte distribution width (RBC) [Entitic vol] 50.2 fL High 35.1-43.9 [facility] Erythrocyte distribution wid th ratioOrdered By: Ronak Cui on 06-17-2024 Erythrocyte distribution width (RBC) [Ratio] 16.3 % High 11.6-14.6 [facility] Estimated glomerular filtrat ion rate (GFR) AmericanOrdered By: Ronak Cui on 06-17-2024 Estimated GFR (MDRD) Amer 184 mL/min >60 [facility] Comment on above: GFR Calc Estimation of creatinine elzbieta aranceOrdered By: Ronak Cui on 06-17-2024 Estimated Creatinine Clearance Calc 132.65 ml/min [facility] Glomerular filtration rate ( GFR) estimationOrdered By: Ronak Cui on 06-17-2024 Estimated GFR (MDRD) Non-Af Amer 152 mL/min >60 [facility] Comment on above: Non- GFR Calc Glucose measurementOrdered B y: Ronak Cui on 06-17-2024 Glucose [Mass/Vol] 101 mg/dL 74-106 [facility] Comment on above: Fasting Glucose resu lt from 100 to 125 mg/dL suggests IMPAIRED HOMEOSTASIS per A.D.A. criteria. Hematocrit Auto (Bld) [Volum e fraction]Ordered By: Ronak Cui on 06-17-2024 Hematocrit (Bld) [Volume fraction] 42.7 % 40-54 [facility] Hemoglobin measurementOrdere d By: Ronak Cui on 06-17-2024 Hemoglobin (Bld) [Mass/Vol] 13.9 g/dL 13.0-16. 5 [facility] Immature granulocytes/100 WB C Auto (Bld)Ordered By: Ronak Cui on 06-17-2024 Immature granulocytes/100 WBC (Bld) 0.700 % 0.0-0.9 [facility] Comment on above: IG% - Immature Granu locytes (promyelocytes, myelocytes and metamyelocytes) > 1% indicates that a LEFT SHIFT is Present. Laboratory - Chemistry and C hemistry - challengeOrdered By: Ronak Cui on 06-17-2024 AST [Catalytic activity/Vol] 20 U/L 15-37 [facility] Lymphocytes Auto (Unsp spec) [#/Vol]Ordered By: Ronak Cui on 06-17-2024 Lymphocytes (Bld) [#/Vol] 2.50 10*3/uL 0.83-4.5 1 [facility] Lymphocytes/100 WBC Auto (Un sp spec)Ordered By: Ronak Cui on 06-17-2024 Lymphocytes/100 WBC (Bld) 24.1 % 19-41 [facility] MCV (mean corpuscular volume ) determinationOrdered By: Ronak Cui on 06-17-2024 MCV (RBC) [Entitic vol] 85.2 fL 80-94 [facility] Magnesiumon 06-17-2024 Magnesium [Mass/Vol] 1.8 mg/dL Normal 1.6-2.6 [facility] Comment on above: Performed By: #### L 500.3400, L501.2450, L100.0100, L500.2500, L501.4020, L300.8000 #### [facility] [address] [place] [address], [id number] Mean corpuscular hemoglobin (MCH) determinationOrdered By: Ronak Cui on 06-17-2024 MCH (RBC) [Entitic mass] 27.7 pg 27.0-32.0 [facility] Mean corpuscular hemoglobin concentration (MCHC) determinationOrdered By: Ronak Cui on 06-17-2024 MCHC (RBC) [Mass/Vol] 32.6 g/dL 32-36 [facility] Mean platelet volume determi nationOrdered By: Ronak Cui on 06-17-2024 Platelet mean volume (Bld) [Entitic vol] 9.0 fL 6.2-12.0 [facility] Monocyte percentageOrdered B y: Ronak Cui on 06-17-2024 Monocytes/100 WBC (Bld) 9.9 % 0-10 [facility] Neutrophil percentageOrdered By: Ronak Cui on 06-17-2024 Neutrophils/100 WBC (Bld) 59.1 % 47-70 [facility] Nucleated red blood cell per centageOrdered By: Ronak Cui on 06-17-2024 Nucleated RBC/100 WBC (Bld) [Ratio] 0 % 0-5 [facility] Phosphoruson 06-17-2024 Phosphate [Mass/Vol] 3.2 mg/dL Normal 2.5-4.9 [facility] Comment on above: Performed By: #### L 500.3400, L501.2450, L100.0100, L500.2500, L501.4020, L300.8000 #### [facility] [address] [place] [address], [address] Platelet countOrdered By: Thomas Cui on 06-17-2024 Platelets (Bld) [#/Vol] 363 10*3/uL 150-450 [facility] Potassium measurementOrdered By: Ronak Cui on 06-17-2024 Potassium [Moles/Vol] 3.5 mmol/L 3.5-5.1 [facility] RBC Auto (Bld) [#/Vol]Ordere d By: Ronak Cui on 06-17-2024 RBC (Bld) [#/Vol] 5.01 10*6/uL 4.6-6.2 [facility] Serum anion gap measurementO rdered By: Ronak Cui on 06-17-2024 Anion gap [Moles/Vol] 6 mmol/L 5-15 [facility] Serum globulin measurementOr dered By: Ronak Cui on 06-17-2024 Globulin (S) [Mass/Vol] 4.3 g/dL High 2.2-4.2 [facility] Serum or plasma alanine hooper otransferase (ALT) measurementOrdered By: Ronak Cui on 06-17-2024 ALT [Catalytic activity/Vol] 17 U/L 16-61 [facility] Serum or plasma albumin shantal urement (mass/volume)Ordered By: Ronak Cui on 06-17-2024 Albumin [Mass/Vol] 2.4 g/dL Low 3.2-5.0 [facility] Serum or plasma alkaline radha sphatase measurementOrdered By: Ronak Cui on 06-17-2024 ALP [Catalytic activity/Vol] 130 U/L High 45-117 [facility] Serum or plasma calcium shantal urement (mass/volume)Ordered By: Ronak Cui on 06-17-2024 Calcium [Mass/Vol] 8.9 mg/dL 8.5-10.1 [facility] Serum or plasma creatinine m easurement (mass/volume)Ordered By: Ronak Cui on 06-17-2024 Creatinine [Mass/Vol] 0.57 mg/dL Low 0.70-1.30 [facility] Comment on above: The validity of the calculated GFR & GFRAA in patients over 70 years has not been determined. Clinical correlation is essential. Serum or plasma urea nitroge n measurement (mass/volume)Ordered By: Ronak Cui on 06-17-2024 Urea nitrogen [Mass/Vol] 8 mg/dL 7-18 [facility] Sodium levelOrdered By: Johnny Cui on 06-17-2024 Sodium [Moles/Vol] 139 mmol/L 136-145 [facility] TSH QnOrdered By: Ronak muro on 06-17-2024 Thyroid Stimulating Hormone (TSH) 5.010 uIU/mL High 0.358-3.74 0 [facility] Thyroid Stim Hormone (TSH)on 06-17-2024 TSH 5.010 uIU/mL High 0.358-3.74 0 [facility] Comment on above: Performed By: #### L 500.3400, L501.2450, L100.0100, L500.2500, L501.4020, L300.8000 #### [facility] [address] [place], [place], [id number] Total proteinOrdered By: Juan Cui on 06-17-2024 Protein [Mass/Vol] 6.7 g/dL 6.4-8.2 [facility] White blood cell (WBC) count Ordered By: Ronak Cui on 06-17-2024 WBC (Bld) [#/Vol] 10.4 10*3/uL 4.4-11.0 [facility] 12 Lead EKGon 06-16-2024 12 Lead EKG [facility] Cardiovascular Services [address] [place] [address] 12 Lead EKG 06/16/24 1713 MR#: [id number] Acct: [id number] Name: BAUTISTA RUFFIN Rep #: [id number] : 1960 64 From: Zackary Costello MD Attending Dr: Dr. Darian Arceo MD Status: ADM IN Ordering Dr: Christian Merlos MD Date: 06/16/24 [place] [facility] [place] Sex: M C Admitted: 06/16/24 Test Reason : Blood Pressure : */* mmHG Vent. Rate : 81 BPM Atrial Rate : 81 BPM P-R Int : 132 ms QRS Dur : 88 ms QT Int : 412 ms P-R-T Axes : 15 62 61 degrees QTcB Int : 478 ms Normal sinus rhythm Normal ECG Confirmed by NOEMI MARR, ALAN ([id number]), production editor AURORA FOURNIER ([id number]) on 06/17/2024 10:59:05 AM Referred By: Confirmed By: ALAN COSTELLO MD 06/17/24 1059 Date Zackary Costello MD CC: Dr. Christian Merlos MD; Dr. Darian Arceo MD; [facility] Signed Normal [facility] Bilirubin Test strip Ql (U)O rdered By: Christian Merlos on 06-16-2024 Bilirubin Ql (U) Negative Negative [facility] Blood cultureOrdered By: Dorina Merlos on 06-16-2024 Bacteria identified Cx Nom (Bld) No growth in 5 days. [facility] Bacteria identified Cx Nom (Bld) No growth in 5 days. [facility] Brain/Head without Contrasto n 06-16-2024 Brain/Head without Contrast [facility] Imaging Services [address] [place] [address] Brain/Head without Contrast MR#: [id number] Acct: [id number] Name: BAUTISTA RUFFIN Rep #: [id number] : 1960 M 64 From: Geraldo Figueroa PCP: [facility] Status: REG ER Study: Brain/Head without Contrast Date of Exam: 05/29 02/20 Exam# [id number] Ordering Dr: Christian Merlos MD [id number] STUDY: CT BRAIN WITHOUT CONTRAST REASON FOR [...] Signed: Geraldo Bowling MD at 18:11 EST , CC: Dr. Christian Merlos MD; [facility] Mushroom Growing Supervisor: Signed Normal [facility] CBC W/Diff, Automatedon 05-29 Absolute Lymph 2.25 X10 3/uL Normal 0.83-4.51 [facility] Comment on above: Performed By: #### L 100.0100, L503.6005, L500.4050, L300.4310, L300.3900, M200.1000 #### [facility] [address] [place], [address] Absolute Neut 10.0 X10 3/uL High 2.0-7.7 [facility] Comment on above: Performed By: #### L 100.0100, L503.6005, L500.4050, L300.4310, L300.3900, M200.1000 #### [facility] [address] [place], [address] Basophils/100 WBC (Bld) 0.5 % Normal 0-1 [facility] Comment on above: Performed By: #### L 100.0100, L503.6005, L500.4050, L300.4310, L300.3900, M200.1000 #### [facility] [address] [place], [address] Eosinophils/100 WBC (Bld) 3.2 % Normal 0-5 [facility] Comment on above: Performed By: #### L 100.0100, L503.6005, L500.4050, L300.4310, L300.3900, M200.1000 #### [facility] [address] [place], [address] Erythrocyte distribution width (RBC) [Ratio] 16.1 % High 11.6-14.6 [facility] Comment on above: Performed By: #### L 100.0100, L503.6005, L500.4050, L300.4310, L300.3900, M200.1000 #### [facility] [address] [place], [address] Hematocrit (Bld) [Volume fraction] 44.4 % Normal 40-54 [facility] Comment on above: Performed By: #### L 100.0100, L503.6005, L500.4050, L300.4310, L300.3900, M200.1000 #### [facility] [address] [place], [address] Hemoglobin (Bld) [Mass/Vol] 14.5 g/dL Normal 13.0-16. 5 [facility] Comment on above: Performed By: #### L 100.0100, L503.6005, L500.4050, L300.4310, L300.3900, M200.1000 #### [facility] [address] [facility] [place], [address] IG% 0.600 Normal 0.0-0.9 [facility] Comment on above: Result Comment: IG% - Immature Granulocytes (promyelocytes, myelocytes and metamyelocytes) > 1% indicates that a LEFT SHIFT is Present. Performed By: #### L 100.0100, L503.6005, L500.4050, L300.4310, L300.3900, M200.1000 #### [facility] [address] [place], [address] Lymphocytes/100 WBC (Bld) 16.2 % Low 19-41 [facility] Comment on above: Performed By: #### L 100.0100, L503.6005, L500.4050, L300.4310, L300.3900, M200.1000 #### [facility] [address] [place], [address] MCH (RBC) [Entitic mass] 27.8 pg Normal 27.0-32.0 [facility] Comment on above: Performed By: #### L 100.0100, L503.6005, L500.4050, L300.4310, L300.3900, M200.1000 #### [facility] [address] [place], [address] MCHC (RBC) [Mass/Vol] 32.7 g/dL Normal 32-36 [facility] Comment on above: Performed By: #### L 100.0100, L503.6005, L500.4050, L300.4310, L300.3900, M200.1000 #### [facility] [address] [place], [address] MCV (RBC) [Entitic vol] 85.1 fL Normal 80-94 [facility] Comment on above: Performed By: #### L 100.0100, L503.6005, L500.4050, L300.4310, L300.3900, M200.1000 #### [facility] [address] [place], [address] Monocytes/100 WBC (Bld) 7.3 % Normal 0-10 [facility] Comment on above: Performed By: #### L 100.0100, L503.6005, L500.4050, L300.4310, L300.3900, M200.1000 #### [facility] [address] [place], [address] Neutrophils/100 WBC (Bld) 72.2 % High 47-70 [facility] Comment on above: Performed By: #### L 100.0100, L503.6005, L500.4050, L300.4310, L300.3900, M200.1000 #### [facility] [address] [place], [address] Nucleated RBC (Bld) [#/Vol] 0 10*3/uL Normal 0-5 [facility] Comment on above: Performed By: #### L 100.0100, L503.6005, L500.4050, L300.4310, L300.3900, M200.1000 #### [facility] [address] [place], [address] Platelet mean volume (Bld) [Entitic vol] 8.7 fL Normal 6.2-12.0 [facility] Comment on above: Performed By: #### L 100.0100, L503.6005, L500.4050, L300.4310, L300.3900, M200.1000 #### [facility] [address] [place], [address] Platelets (Bld) [#/Vol] 387 10*3/uL Normal 150-450 [facility] Comment on above: Performed By: #### L 100.0100, L503.6005, L500.4050, L300.4310, L300.3900, M200.1000 #### [facility] [address] [place], [address] RBC (Bld) [#/Vol] 5.22 10*6/uL Normal 4.6-6.2 [facility] Comment on above: Performed By: #### L 100.0100, L503.6005, L500.4050, L300.4310, L300.3900, M200.1000 #### [facility] [address] [place], [address] RDW SD 49.8 fl High 35.1-43.9 [facility] Comment on above: Performed By: #### L 100.0100, L503.6005, L500.4050, L300.4310, L300.3900, M200.1000 #### [facility] [address] [place], [address] WBC (Bld) [#/Vol] 13.9 10*3/uL High 4.4-11.0 [facility] Comment on above: Performed By: #### L 100.0100, L503.6005, L500.4050, L300.4310, L300.3900, M200.1000 #### [facility] [address] [place], [address] Calcium oxalate crystals LM Ql (Urine sed)Ordered By: Christian Merlos on 06-16-2024 Urine Calcium Oxalate Crystals 2+ /hpf [facility] Chest 1 View (Portable)on Chest 1 View (Portable) [facility] Imaging Services [address] [place] [address] Chest 1 View (Portable) MR#: [id number] Acct: [id number] Name: BAUTISTA RUFFIN Rep #: [id number] : 1960 M 64 From: Geraldo Figueroa PCP: [facility] Status: REG ER Study: Chest 1 View (Portable) Date of Exam: 06/16/24 Exam# [id number] Ordering Dr: Christian Merlos [place] [id number] EXAM: XR CHEST, 1 VIEW CLINICAL INDICATION: [...] Signed: Geraldo Bowling MD at 18:12 EST , CC: Dr. Christian Merlos MD; [facility] Mushroom Growing Supervisor: Signed Normal [facility] Comprehensive Metabolic Prof ilon 06-16-2024 Albumin [Mass/Vol] 2.7 g/dL Low 3.2-5.0 [facility] Comment on above: Performed By: #### L 100.0100, L503.6005, L500.4050, L300.4310, L300.3900, M200.1000 ####[facility] [address] [place], [address] Albumin/Globulin [Mass ratio] 0.6 {ratio} Low 0.9-2.4 [facility] Comment on above: Performed By: #### L 100.0100, L503.6005, L500.4050, L300.4310, L300.3900, M200.1000 ####[facility] [address] [place], [address] ALK P 143 U/L High 45-117 [facility] Comment on above: Performed By: #### L 100.0100, L503.6005, L500.4050, L300.4310, L300.3900, M200.1000 ####[facility] [address] [place], [address] ALT [Catalytic activity/Vol] 19 U/L Normal 16-61 [facility] Comment on above: Performed By: #### L 100.0100, L503.6005, L500.4050, L300.4310, L300.3900, M200.1000 ####[facility] [address] [place], [address] AST [Catalytic activity/Vol] 20 U/L Normal 15-37 [facility] Comment on above: Performed By: #### L 100.0100, L503.6005, L500.4050, L300.4310, L300.3900, M200.1000 ####[facility] [address] [place], [address] Bilirubin [Mass/Vol] 0.40 mg/dL Normal 0.20-1.00 [facility] Comment on above: Result Comment: For patients on eltrombopag therapy, use of Dimension Ada TBIL is not recommended. Performed By: #### L 100.0100, L503.6005, L500.4050, L300.4310, L300.3900, M200.1000 ####[facility] [address] [place], [address] BUN/CRE 15.7 RATIO Normal 10-20 [facility] Comment on above: Performed By: #### L 100.0100, L503.6005, L500.4050, L300.4310, L300.3900, M200.1000 ####[facility] [address] [place], [address] CA,Total 9.4 mg/dL Normal 8.5-10.1 [facility] Comment on above: Performed By: #### L 100.0100, L503.6005, L500.4050, L300.4310, L300.3900, M200.1000 ####[facility] [address] [place], [address] Chloride [Moles/Vol] 108 mmol/L High 98-107 [facility] Comment on above: Performed By: #### L 100.0100, L503.6005, L500.4050, L300.4310, L300.3900, M200.1000 ####[facility] [address] [place], [address] CO2 [Moles/Vol] 27.0 mmol/L Normal 21.0-32.0 [facility] Comment on above: Performed By: #### L 100.0100, L503.6005, L500.4050, L300.4310, L300.3900, M200.1000 ####[facility] [address] [place], [address] Creatinine [Mass/Vol] 0.70 mg/dL Normal 0.70-1.30 [facility] Comment on above: Result Comment: The validity of the calculated GFR GFRAA in patients over 70 years has not been determined. Clinical correlation is essential. Performed By: #### L 100.0100, L503.6005, L500.4050, L300.4310, L300.3900, M200.1000 ####[facility] [address] [place], [address] ECRCL 108.01 ml/min Normal [facility] Comment on above: Performed By: #### L 100.0100, L503.6005, L500.4050, L300.4310, L300.3900, M200.1000 ####[facility] [address] [place], [address] EST GFR - AA 146 mL/min Normal >60 [facility] Comment on above: Result Comment: Afri can Niuean GFR Calc Performed By: #### L 100.0100, L503.6005, L500.4050, L300.4310, L300.3900, M200.1000 ####[facility] [address] [place], [address] GAP 5 Normal 5-15 [facility] Comment on above: Performed By: #### L 100.0100, L503.6005, L500.4050, L300.4310, L300.3900, M200.1000 ####[facility] [address] [place], [address] GFR/1.73 sq M.predicted among non-blacks MDRD (S/P/Bld) [Vol rate/Area] 121 mL/min/{1.73_m2} Normal >60 [facility] Comment on above: Result Comment: Non- GFR Calc Performed By: #### L 100.0100, L503.6005, L500.4050, L300.4310, L300.3900, M200.1000 ####[facility] [address] [place], [address] Globulin (S) [Mass/Vol] 4.8 g/dL High 2.2-4.2 [facility] Comment on above: Performed By: #### L 100.0100, L503.6005, L500.4050, L300.4310, L300.3900, M200.1000 ####[facility] [address] [place], [address] Glucose [Mass/Vol] 114 mg/dL High 74-106 [facility] Comment on above: Result Comment: Fast ing Glucose result from 100 to 125 mg/dL suggests IMPAIRED HOMEOSTASIS per A.D.A. criteria. Performed By: #### L 100.0100, L503.6005, L500.4050, L300.4310, L300.3900, M200.1000 ####[facility] [address] [place], [address] Potassium [Moles/Vol] 3.7 mmol/L Normal 3.5-5.1 [facility] Comment on above: Performed By: #### L 100.0100, L503.6005, L500.4050, L300.4310, L300.3900, M200.1000 ####[facility] [address] [place], [address] Sodium [Moles/Vol] 140 mmol/L Normal 136-145 [facility] Comment on above: Performed By: #### L 100.0100, L503.6005, L500.4050, L300.4310, L300.3900, M200.1000 ####[facility] [address] [place], [address] T PROT 7.5 g/dL Normal 6.4-8.2 [facility] Comment on above: Performed By: #### L 100.0100, L503.6005, L500.4050, L300.4310, L300.3900, M200.1000 ####[facility] [address] [place], [address] Urea nitrogen [Mass/Vol] 11 mg/dL Normal 7-18 [facility] Comment on above: Performed By: #### L 100.0100, L503.6005, L500.4050, L300.4310, L300.3900, M200.1000 ####[facility] [address] [place], [address] Emergency Department Summary on 06-16-2024 Emergency Department Summary [facility] Medical Records Department [address] [facility] [place] [address] Emergency Department Summary 06/16/24 MR#: [id number] Acct: [id number] Name: BAUTISTA RUFFIN Rep #: [id number] : 1960 64 From: Christian Merlos MD PCP: [facility] Status:REG ER Location: ED HPI History of [...] he states it is improved right now. [facility] Medical History Atherosclerotic heart disease of [place] coronary artery without angina pectoris Depression Chronic [...] or hemat (more content not included)... Normal [facility] Epithelial cells.squamous LM Ql (Urine sed)Ordered By: Christian Merlos on 06-16-2024 Epithelial cells.squamous LM.HPF (Urine sed) [#/Area] 0 /[HPF] 0-5 [facility] Glucose Ql (U)Ordered By: Rama Merlos on 06-16-2024 Urine Glucose (UA) Normal mg/dl Normal [facility] H AND P Exam - Hospitaliston 06-16-2024 H&P Exam - Hospitalist [facility] Medical Records Department [address] [place] [address] H P Exam - Hospitalist 06/16/241936 MR#: [id number] Acct: [id number] Name: BAUTISTA RUFFIN Rep #: [id number] : 1960 64 From: Ronak Quiroz DO PCP: ID Hospital Status:ADM IN Location: [facility] [place] [id number] HPI - General General Date of Admission: [...] in his femur - s/p evaluation at [facility] with patient not felt to be a surgical candidate and recommended to follow-up with the [facility] and very recent admission here from June 11, 2024 to June 14, 2024 for treatment of Acute Cystitis; with microscopic hematuria likely due to chronic suprapubic catheter with cultures positive for Pseudomonas aeruginosa sensitive to Zosyn complicated by suspected Pneumonia and Metabolic Encephalopathy who was sent home on a 7-day course of IV Zosyn via [facility] Mid-Line as recommended by ID technical services consultant who now re-presents to [facility] ER complaining his was not sure when [...] is expected to extend beyond 2 midnights. [facility] Medical History Atherosclerotic heart disease of [place] coronary artery without angina pectoris Depression Chronic [...] tabs 06/29/21 (more content not included)... Normal [facility] Hyaline casts LM.LPF (Urine sed) [#/Area]Ordered By: Christian Merlos on 06-16-2024 Hyaline casts LM Ql (Urine sed) 0-5 SEEN /lpf 0-5 [facility] International normalized rat io (INR) calculationOrdered By: Christian Merlos on 06-16-2024 INR Coag (Bld) [Relative time] 1.1 {INR} [facility] Ketones Test strip Ql (U)Ord ered By: Christian Merlos on 06-16-2024 Ketones Ql (U) 5 mg/dl High Negative [facility] Lactic Acidon 06-16-2024 Lactate [Moles/Vol] 1.1 mmol/L Normal 0.4-1.9 [facility] Comment on above: Order Comment: Y Performed By: #### L 100.0100, L503.6005, L500.4050, L300.4310, L300.3900, M200.1000 ####[facility] [address] [place], [place], [address] Lactic acid measurementOrder ed By: Christian Merlos on 06-16-2024 Lactate [Moles/Vol] 1.1 mmol/L 0.4-2.0 [facility] Microscopic analysis of urin e for red blood cells (RBC)Ordered By: Christian Merlos on 06-16-2024 Urine RBC 10-25 SEEN /hpf 0-5 [facility] Mucus LM Ql (Urine sed)Order ed By: Christian Merlos on 06-16-2024 Mucus Ql (Urine sed) 1+ /hpf [facility] Nitrite Test strip Ql (U)Ord ered By: Christian Merlos on 06-16-2024 Nitrite Ql (U) Positive High Negative [facility] Partial Thromboplast Timeon 06-16-2024 aPTT Coag (Bld) [Time] 43.2 s High 24.1-36.2 [facility] Comment on above: Performed By: #### L 100.0100, L503.6005, L500.4050, L300.4310, L300.3900, M200.1000 ####[facility] [address] [place], [address] Protein Test strip Ql (U)Ord ered By: Christian Merlos on 06-16-2024 Protein Ql (U) 30 mg/dl High Negative [facility] Prothrombin Time w/INRon INR Coag (PPP) [Relative time] 1.1 {INR} Normal [facility] Comment on above: Performed By: #### L 100.0100, L503.6005, L500.4050, L300.4310, L300.3900, M200.1000 ####[facility] [address] [place], [address] PT Coag (PPP) [Time] 13.9 s Normal 11.7-14.9 [facility] Comment on above: Performed By: #### L 100.0100, L503.6005, L500.4050, L300.4310, L300.3900, M200.1000 ####[facility] [address] [place], [address] Prothrombin timeOrdered By: Christian Merlos on 06-16-2024 PT Coag (PPP) [Time] 13.9 s 11.7-14.9 [facility] Urinalysis, Completeon 06-16 CA OX CRYSTAL 2+ /hpf Normal [facility] Comment on above: Order Comment: 'TROP ' Serial specimen #1, #2 or #3: 1 Performed By: #### L 500.3400, L501.2450, L100.0100, L500.2500, L501.4020, L300.8000 #### [facility] [address] [place], [address] CAST,HYALINE 0-5 SEEN Normal 0-5 [facility] Comment on above: Order Comment: 'TROP ' Serial specimen #1, #2 or #3: 1 Performed By: #### L 500.3400, L501.2450, L100.0100, L500.2500, L501.4020, L300.8000 #### [facility] [address] [place], [address] EPI,SQUAMOUS 0-5 SEEN Normal 0-5 [facility] Comment on above: Order Comment: 'TROP ' Serial specimen #1, #2 or #3: 1 Performed By: #### L 500.3400, L501.2450, L100.0100, L500.2500, L501.4020, L300.8000 #### [facility] [address] [place], [address] RBC 10-25 SEEN Normal 0-5 [facility] Comment on above: Order Comment: 'TROP ' Serial specimen #1, #2 or #3: 1 Performed By: #### L 500.3400, L501.2450, L100.0100, L500.2500, L501.4020, L300.8000 #### [facility] [address] [place], [address] BACTERIA 1+ /hpf Normal None Seen [facility] Comment on above: Order Comment: 'TROP ' Serial specimen #1, #2 or #3: 1 Performed By: #### L 500.3400, L501.2450, L100.0100, L500.2500, L501.4020, L300.8000 #### [facility] [address] [place], [address] WBC 50-100 SEEN Normal 0-5 [facility] Comment on above: Order Comment: 'TROP ' Serial specimen #1, #2 or #3: 1 Performed By: #### L 500.3400, L501.2450, L100.0100, L500.2500, L501.4020, L300.8000 #### [facility] [address] [place], [address] Mucus Ql (Urine sed) 1+ /hpf Normal [facility] Comment on above: Order Comment: 'TROP ' Serial specimen #1, #2 or #3: 1 Performed By: #### L 500.3400, L501.2450, L100.0100, L500.2500, L501.4020, L300.8000 #### [facility] [address] [place], [place], [address] Urine blood detectionOrdered By: Christian Merlos on 06-16-2024 Urine Occult Blood 150 /ul High Negative [facility] Urine clarityOrdered By: Dorina Merlos on 06-16-2024 Clarity (U) Sl. Cloudy Clear [facility] Urine color determinationOrd ered By: Christian Merlos on 06-16-2024 Color (U) Yellow Yellow [facility] Urine cultureOrdered By: Dorina Merlos on 06-16-2024 Bacteria identified Cx Nom (U) GNR Poss Pseudomonas sp Abnormal [facility] Bacteria identified Cx Nom (U) Yeast, not Joleen albicans Abnormal [facility] Urine leukocyte esterase det ection by dipstickOrdered By: Christian Merlos on 06-16-2024 Leukocyte esterase Test strip Ql (U) 100 /ul High Negative [facility] Urine pHOrdered By: Christian Merlos on 06-16-2024 pH (U) 6.5 [pH] 5.0 - 8.0 [facility] Urine sediment bacteria coun t by microscopy (number/high power field)Ordered By: Christian Merlos on 06-16-2024 Bacteria LM.HPF (Urine sed) [#/Area] 1 /[HPF] None Seen [facility] Urine specific gravity measu rementOrdered By: Christian Merlos on 06-16-2024 Specific gravity (U) [Rel density] 1.015 1.002-1.03 0 [facility] Urobilinogen Ql (U)Ordered B y: Christian Merlos on 06-16-2024 Urine Urobilinogen Normal mg/dl Normal [facility] White blood cell countOrdere d By: Christian Merlos on 06-16-2024 Urine WBC 50-100 SEEN /hpf 0-5 [facility] aPTT Coag (PPP) [Time]Ordere d By: Christian Melros on 06-16-2024 aPTT Coag (Bld) [Time] 43.2 s High 24.1-36.2 [facility] Absolute neutrophil countOrd ered By: Darian Arceo on 06-14-2024 Neutrophils (Bld) [#/Vol] 4.4 10*3/uL 2.0-7.7 [facility] Basic Metabolic Profile (BMP )on 06-14-2024 BUN/CRE 12.4 RATIO Normal 10-20 [facility] Comment on above: Performed By: #### L 100.0100, L500.2500 ####[facility] [address] [place], [address] CA,Total 8.5 mg/dL Normal 8.5-10.1 [facility] Comment on above: Performed By: #### L 100.0100, L500.2500 ####[facility] [address] [place], [address] Chloride [Moles/Vol] 111 mmol/L High 98-107 [facility] Comment on above: Performed By: #### L 100.0100, L500.2500 ####[facility] [address] [place], [address] CO2 [Moles/Vol] 26.0 mmol/L Normal 21.0-32.0 [facility] Comment on above: Performed By: #### L 100.0100, L500.2500 ####[facility] [address] [place], [address] Creatinine [Mass/Vol] 0.81 mg/dL Normal 0.70-1.30 [facility] Comment on above: Result Comment: The validity of the calculated GFR GFRAA in patients over 70 years has not been determined. Clinical correlation is essential. Performed By: #### L 100.0100, L500.2500 ####[facility] [address] [place], [address] ECRCL 106.44 ml/min Normal [facility] Comment on above: Performed By: #### L 100.0100, L500.2500 ####[facility] [address] [place], [address] EST GFR - AA 124 mL/min Normal >60 [facility] Comment on above: Result Comment: Afri can Niuean GFR Calc Performed By: #### L 100.0100, L500.2500 ####[facility] [address] [place], [address] GAP 7 Normal 5-15 [facility] Comment on above: Performed By: #### L 100.0100, L500.2500 ####[facility] [address] [place], [address] GFR/1.73 sq M.predicted among non-blacks MDRD (S/P/Bld) [Vol rate/Area] 102 mL/min/{1.73_m2} Normal >60 [facility] Comment on above: Result Comment: Non- GFR Calc Performed By: #### L 100.0100, L500.2500 ####[facility] [address] [place], [address] Glucose [Mass/Vol] 161 mg/dL High 74-106 [facility] Comment on above: Result Comment: Fast ing Glucose result greater than or equal to 126 mg/dL suggests DIABETES MELLITUS per A.D.A. criteria. Performed By: #### L 100.0100, L500.2500 ####[facility] [address] [place], [address] Potassium [Moles/Vol] 3.2 mmol/L Low 3.5-5.1 [facility] Comment on above: Performed By: #### L 100.0100, L500.2500 ####[facility] [address] [place], [address] Sodium [Moles/Vol] 144 mmol/L Normal 136-145 [facility] Comment on above: Performed By: #### L 100.0100, L500.2500 ####[facility] [address] [place], [address] Urea nitrogen [Mass/Vol] 10 mg/dL Normal 7-18 [facility] Comment on above: Performed By: #### L 100.0100, L500.2500 ####[facility] [address] [place], [address] Basophil percentageOrdered B y: Darian Arceo on 06-14-2024 Basophils/100 WBC (Bld) 0.6 % 0-1 [facility] Blood urea nitrogen (BUN)/cr eatinine ratioOrdered By: Darian Arceo on 06-14-2024 Urea nitrogen/Creatinine [Mass ratio] 12.4 mg/mg 10-20 [facility] CBC W/Diff, Automatedon 05-29 Absolute Lymph 2.62 X10 3/uL Normal 0.83-4.51 [facility] Comment on above: Performed By: #### L 100.0100, L500.2500 ####[facility] [address] [place], [address] Absolute Neut 4.4 X10 3/uL Normal 2.0-7.7 [facility] Comment on above: Performed By: #### L 100.0100, L500.2500 ####[facility] [address] [place], [address] Basophils/100 WBC (Bld) 0.6 % Normal 0-1 [facility] Comment on above: Performed By: #### L 100.0100, L500.2500 ####[facility] [address] [place], [address] Eosinophils/100 WBC (Bld) 6.1 % High 0-5 [facility] Comment on above: Performed By: #### L 100.0100, L500.2500 ####[facility] [address] [place], [address] Erythrocyte distribution width (RBC) [Ratio] 16.3 % High 11.6-14.6 [facility] Comment on above: Performed By: #### L 100.0100, L500.2500 ####[facility] [address] [place], [address] Hematocrit (Bld) [Volume fraction] 40.4 % Normal 40-54 [facility] Comment on above: Performed By: #### L 100.0100, L500.2500 ####[facility] [address] [place], [address] Hemoglobin (Bld) [Mass/Vol] 12.9 g/dL Low 13.0-16. 5 [facility] Comment on above: Performed By: #### L 100.0100, L500.2500 ####[facility] [address] [place], [address] IG% 0.500 Normal 0.0-0.9 [facility] Comment on above: Result Comment: IG% - Immature Granulocytes (promyelocytes, myelocytes and metamyelocytes) > 1% indicates that a LEFT SHIFT is Present. Performed By: #### L 100.0100, L500.2500 ####[facility] [address] [place], [address] Lymphocytes/100 WBC (Bld) 30.6 % Normal 19-41 [facility] Comment on above: Performed By: #### L 100.0100, L500.2500 ####[facility] [address] [place], [address] MCH (RBC) [Entitic mass] 27.8 pg Normal 27.0-32.0 [facility] Comment on above: Performed By: #### L 100.0100, L500.2500 ####[facility] [address] [place], [address] MCHC (RBC) [Mass/Vol] 31.9 g/dL Low 32-36 [facility] Comment on above: Performed By: #### L 100.0100, L500.2500 ####[facility] [address] [place], [address] MCV (RBC) [Entitic vol] 87.1 fL Normal 80-94 [facility] Comment on above: Performed By: #### L 100.0100, L500.2500 ####[facility] [address] [place], [address] Monocytes/100 WBC (Bld) 11.4 % High 0-10 [facility] Comment on above: Performed By: #### L 100.0100, L500.2500 ####[facility] [address] [place], [address] Neutrophils/100 WBC (Bld) 50.8 % Normal 47-70 [facility] Comment on above: Performed By: #### L 100.0100, L500.2500 ####[facility] [address] [place], [address] Nucleated RBC (Bld) [#/Vol] 0 10*3/uL Normal 0-5 [facility] Comment on above: Performed By: #### L 100.0100, L500.2500 ####[facility] [address] [place], [address] Platelet mean volume (Bld) [Entitic vol] 9.0 fL Normal 6.2-12.0 [facility] Comment on above: Performed By: #### L 100.0100, L500.2500 ####[facility] [address] [place], [address] Platelets (Bld) [#/Vol] 340 10*3/uL Normal 150-450 [facility] Comment on above: Performed By: #### L 100.0100, L500.2500 ####[facility] [address] [place], [address] RBC (Bld) [#/Vol] 4.64 10*6/uL Normal 4.6-6.2 [facility] Comment on above: Performed By: #### L 100.0100, L500.2500 ####[facility] [address] [place], [address] RDW SD 51.2 fl High 35.1-43.9 [facility] Comment on above: Performed By: #### L 100.0100, L500.2500 ####[facility] [address] [place], [address] WBC (Bld) [#/Vol] 8.6 10*3/uL Normal 4.4-11.0 [facility] Comment on above: Performed By: #### L 100.0100, L500.2500 ####[facility] [address] [place], [address] Carbon dioxide measurementOr dered By: Darian Arceo on 06-14-2024 CO2 [Moles/Vol] 26.0 mmol/L 21.0-32.0 [facility] Chloride measurementOrdered By: Darian Arceo on 06-14-2024 Chloride [Moles/Vol] 111 mmol/L High 98-107 [facility] Consultation - Infectious Dx on 06-14-2024 Consultation - Infectious Dx [facility] Medical Records Department [address] [place] [address] Consultation - Infectious Dx 06/14/24 1419 MR#: [id number] Acct: [id number] Name: BAUTISTA RUFFIN #: [id number] : 1960 64 From: Maulik Jenkins MD PCP: ID Hospital Status:ADM IN Location: MS3 [id number] Assessment Plan Assessment/Plan (1) Acute UTI: PLAN: [...] performed and neg except as noted above. [facility] Medical History Atherosclerotic heart disease of [place] coronary artery without angina pectoris Depression Chronic [...] Laboratory Resul (more content not included)... Normal [facility] Discharge Instructionon 05-29 Discharge Instruction [facility] Medical Records Department [address] [place] [address] Instructions for Home/Discharge Instructions 06/14/24 1127 MR#: [id number] Acct: [id number] Name: BAUTISTA RUFFIN Rep #: [id number] : 1960 64 From: Darian Arceo MD PCP: ID Hospital Status:ADM IN Discharge Instructions Diet Discharge [...] Attending Provider: Darian Arceo Primary Care Provider: [facility] Consulting Providers: Ronak Quiroz; Maulik Jenkins Discharge [...] Qty: 14 0RF Referrals [facility] - Within 2 Weeks Maulik Jenkins MD [Med Staff - Active Staff] - Within 1 Month Disposition Disposition (needs filled in before D/C Order can be placed): Home Health Service 06/14/24 1551 Darian Arceo MD CC: Dr. Ronak Qiuroz DO; Dr. Maulik Jenkins MD; [facility] Signed Normal [facility] Eosinophil percentageOrdered By: Darian Arceo on 06-14-2024 Eosinophils/100 WBC (Bld) 6.1 % High 0-5 [facility] Erythrocyte distribution wid th (RBC) [Ratio]Ordered By: Darian Arceo on 06-14-2024 Erythrocyte distribution width (RBC) [Entitic vol] 51.2 fL High 35.1-43.9 [facility] Erythrocyte distribution wid th ratioOrdered By: Darian Arceo on 06-14-2024 Erythrocyte distribution width (RBC) [Ratio] 16.3 % High 11.6-14.6 [facility] Estimated glomerular filtrat ion rate (GFR) AmericanOrdered By: Darian Arceo on 06-14-2024 Estimated GFR (MDRD) Amer 124 mL/min >60 [facility] Comment on above: GFR Calc Estimation of creatinine elzbieta aranceOrdered By: Darian Arceo on 06-14-2024 Estimated Creatinine Clearance Calc 106.44 ml/min [facility] Glomerular filtration rate ( GFR) estimationOrdered By: Darian Arceo on 06-14-2024 Estimated GFR (MDRD) Non-Af Amer 102 mL/min >60 [facility] Comment on above: Non- GFR Calc Glucose measurementOrdered B y: Darian Arceo on 06-14-2024 Glucose [Mass/Vol] 161 mg/dL High 74-106 [facility] Comment on above: Fasting Glucose resu lt greater than or equal to 126 mg/dL suggests DIABETES MELLITUS per A.D.A. criteria. Hematocrit Auto (Bld) [Volum e fraction]Ordered By: Darian Arceo on 06-14-2024 Hematocrit (Bld) [Volume fraction] 40.4 % 40-54 [facility] Hemoglobin measurementOrdere d By: Darian Arceo on 06-14-2024 Hemoglobin (Bld) [Mass/Vol] 12.9 g/dL Low 13.0-16. 5 [facility] Immature granulocytes/100 WB C Auto (Bld)Ordered By: Darian Arceo on 06-14-2024 Immature granulocytes/100 WBC (Bld) 0.500 % 0.0-0.9 [facility] Comment on above: IG% - Immature Granu locytes (promyelocytes, myelocytes and metamyelocytes) > 1% indicates that a LEFT SHIFT is Present. Lymphocytes Auto (Unsp spec) [#/Vol]Ordered By: Darian Arceo on 06-14-2024 Lymphocytes (Bld) [#/Vol] 2.62 10*3/uL 0.83-4.5 1 [facility] Lymphocytes/100 WBC Auto (Un sp spec)Ordered By: Darian Arceo on 06-14-2024 Lymphocytes/100 WBC (Bld) 30.6 % 19-41 [facility] MCV (mean corpuscular volume ) determinationOrdered By: Darian Arceo on 06-14-2024 MCV (RBC) [Entitic vol] 87.1 fL 80-94 [facility] Mean corpuscular hemoglobin (MCH) determinationOrdered By: Darian Arceo on 06-14-2024 MCH (RBC) [Entitic mass] 27.8 pg 27.0-32.0 [facility] Mean corpuscular hemoglobin concentration (MCHC) determinationOrdered By: Darian Arceo on 06-14-2024 MCHC (RBC) [Mass/Vol] 31.9 g/dL Low 32-36 [facility] Mean platelet volume determi nationOrdered By: Darian Arceo on 06-14-2024 Platelet mean volume (Bld) [Entitic vol] 9.0 fL 6.2-12.0 [facility] Monocyte percentageOrdered B y: Darian Arceo on 06-14-2024 Monocytes/100 WBC (Bld) 11.4 % High 0-10 [facility] Neutrophil percentageOrdered By: Darian Arceo on 06-14-2024 Neutrophils/100 WBC (Bld) 50.8 % 47-70 [facility] Nucleated red blood cell per centageOrdered By: Darian Arceo on 06-14-2024 Nucleated RBC/100 WBC (Bld) [Ratio] 0 % 0-5 [facility] Platelet countOrdered By: Joellen Arceo on 06-14-2024 Platelets (Bld) [#/Vol] 340 10*3/uL 150-450 [facility] Potassium measurementOrdered By: Darian Arceo on 06-14-2024 Potassium [Moles/Vol] 3.2 mmol/L Low 3.5-5.1 [facility] RBC Auto (Bld) [#/Vol]Ordere d By: Darian Arceo on 06-14-2024 RBC (Bld) [#/Vol] 4.64 10*6/uL 4.6-6.2 [facility] Serum anion gap measurementO rdered By: Darian Arceo on 06-14-2024 Anion gap [Moles/Vol] 7 mmol/L 5-15 [facility] Serum or plasma calcium shantal urement (mass/volume)Ordered By: Darian Arceo on 06-14-2024 Calcium [Mass/Vol] 8.5 mg/dL 8.5-10.1 [facility] Serum or plasma creatinine m easurement (mass/volume)Ordered By: Darian Arceo on 06-14-2024 Creatinine [Mass/Vol] 0.81 mg/dL 0.70-1.30 [facility] Comment on above: The validity of the calculated GFR & GFRAA in patients over 70 years has not been determined. Clinical correlation is essential. Serum or plasma urea nitroge n measurement (mass/volume)Ordered By: Darian Arceo on 06-14-2024 Urea nitrogen [Mass/Vol] 10 mg/dL 7-18 [facility] Sodium levelOrdered By: Danny Arceo on 06-14-2024 Sodium [Moles/Vol] 144 mmol/L 136-145 [facility] Urine Cultureon 06-14-2024 URC Additional sensitivi ty to follow. Pseudomonas aeruginosa Wishon Count >100,000 Pseudomonas aeruginosa: REACTION Aztreonam Islt KB 14 Pseudomonas aeruginosa: REACTION Cefepime Islt HARMAN 1 Ciprofloxacin Islt HARMAN >=4 R levoFLOXacin Islt HARMAN >=8 R Meropenem Islt HARMAN 1 S Pip+Tazo Islt HARMAN <=4 S Pseudomonas aeruginosa: REACTION Amikacin Islt HARMAN 4 Imipenem Islt HARMAN R Tobramycin Islt HARMAN <=1 S Normal [facility] Comment on above: Performed By: #### L 500.3400, L501.2450, L100.0100, L500.2500, L501.4020, L300.8000 #### [facility] [address] [place], [address] White blood cell (WBC) count Ordered By: Darian Arceo on 06-14-2024 WBC (Bld) [#/Vol] 8.6 10*3/uL 4.4-11.0 [facility] Basic Metabolic Profile (BMP )on 06-13-2024 BUN/CRE 17.2 RATIO Normal 10-20 [facility] Comment on above: Performed By: #### L 100.0100, L500.2500 ####[facility] [address] [place], [address] CA,Total 8.4 mg/dL Low 8.5-10.1 [facility] Comment on above: Performed By: #### L 100.0100, L500.2500 ####[facility] [address] [place], [address] Chloride [Moles/Vol] 108 mmol/L High 98-107 [facility] Comment on above: Performed By: #### L 100.0100, L500.2500 ####[facility] [address] [place], [address] CO2 [Moles/Vol] 24.0 mmol/L Normal 21.0-32.0 [facility] Comment on above: Performed By: #### L 100.0100, L500.2500 ####[facility] [address] [place], [address] Creatinine [Mass/Vol] 0.64 mg/dL Low 0.70-1.30 [facility] Comment on above: Result Comment: The validity of the calculated GFR GFRAA in patients over 70 years has not been determined. Clinical correlation is essential. Performed By: #### L 100.0100, L500.2500 ####[facility] [address] [place], [address] ECRCL 134.72 ml/min Normal [facility] Comment on above: Performed By: #### L 100.0100, L500.2500 ####[facility] [address] [place], [address] EST GFR - AA 163 mL/min Normal >60 [facility] Comment on above: Result Comment: Afri can Niuean GFR Calc Performed By: #### L 100.0100, L500.2500 ####[facility] [address] [place], [address] GAP 8 Normal 5-15 [facility] Comment on above: Performed By: #### L 100.0100, L500.2500 ####[facility] [address] [place], [address] GFR/1.73 sq M.predicted among non-blacks MDRD (S/P/Bld) [Vol rate/Area] 134 mL/min/{1.73_m2} Normal >60 [facility] Comment on above: Result Comment: Non- GFR Calc Performed By: #### L 100.0100, L500.2500 ####[facility] [address] [place], [address] Glucose [Mass/Vol] 95 mg/dL Normal 74-106 [facility] Comment on above: Performed By: #### L 100.0100, L500.2500 ####[facility] [address] [place], [address] Potassium [Moles/Vol] 3.2 mmol/L Low 3.5-5.1 [facility] Comment on above: Performed By: #### L 100.0100, L500.2500 ####[facility] [address] [place], [address] Sodium [Moles/Vol] 140 mmol/L Normal 136-145 [facility] Comment on above: Performed By: #### L 100.0100, L500.2500 ####[facility] [address] [place], [address] Urea nitrogen [Mass/Vol] 11 mg/dL Normal 7-18 [facility] Comment on above: Performed By: #### L 100.0100, L500.2500 ####[facility] [address] [place], [address] CBC W/Diff, Automatedon 05-29 Absolute Lymph 2.73 X10 3/uL Normal 0.83-4.51 [facility] Comment on above: Performed By: #### L 100.0100, L500.2500 ####[facility] [address] [place], [address] Absolute Neut 4.2 X10 3/uL Normal 2.0-7.7 [facility] Comment on above: Performed By: #### L 100.0100, L500.2500 ####[facility] [address] [place], [address] Basophils/100 WBC (Bld) 0.4 % Normal 0-1 [facility] Comment on above: Performed By: #### L 100.0100, L500.2500 ####[facility] [address] [place], [address] Eosinophils/100 WBC (Bld) 3.5 % Normal 0-5 [facility] Comment on above: Performed By: #### L 100.0100, L500.2500 ####[facility] [address] [place], [address] Erythrocyte distribution width (RBC) [Ratio] 15.9 % High 11.6-14.6 [facility] Comment on above: Performed By: #### L 100.0100, L500.2500 ####[facility] [address] [place], [address] Hematocrit (Bld) [Volume fraction] 40.3 % Normal 40-54 [facility] Comment on above: Performed By: #### L 100.0100, L500.2500 ####[facility] [address] [place], [address] Hemoglobin (Bld) [Mass/Vol] 13.0 g/dL Normal 13.0-16. 5 [facility] Comment on above: Performed By: #### L 100.0100, L500.2500 ####[facility] [address] [place], [address] IG% 0.200 Normal 0.0-0.9 [facility] Comment on above: Result Comment: IG% - Immature Granulocytes (promyelocytes, myelocytes and metamyelocytes) > 1% indicates that a LEFT SHIFT is Present. Performed By: #### L 100.0100, L500.2500 ####[facility] [address] [place], [address] Lymphocytes/100 WBC (Bld) 33.7 % Normal 19-41 [facility] Comment on above: Performed By: #### L 100.0100, L500.2500 ####[facility] [address] [place], [address] MCH (RBC) [Entitic mass] 27.4 pg Normal 27.0-32.0 [facility] Comment on above: Performed By: #### L 100.0100, L500.2500 ####[facility] [address] [place], [address] MCHC (RBC) [Mass/Vol] 32.3 g/dL Normal 32-36 [facility] Comment on above: Performed By: #### L 100.0100, L500.2500 ####[facility] [address] [place], [address] MCV (RBC) [Entitic vol] 84.8 fL Normal 80-94 [facility] Comment on above: Performed By: #### L 100.0100, L500.2500 ####[facility] [address] [place], [address] Monocytes/100 WBC (Bld) 10.6 % High 0-10 [facility] Comment on above: Performed By: #### L 100.0100, L500.2500 ####[facility] [address] [place], [address] Neutrophils/100 WBC (Bld) 51.6 % Normal 47-70 [facility] Comment on above: Performed By: #### L 100.0100, L500.2500 ####[facility] [address] [place], [address] Nucleated RBC (Bld) [#/Vol] 0 10*3/uL Normal 0-5 [facility] Comment on above: Performed By: #### L 100.0100, L500.2500 ####[facility] [address] [place], [address] Platelet mean volume (Bld) [Entitic vol] 9.0 fL Normal 6.2-12.0 [facility] Comment on above: Performed By: #### L 100.0100, L500.2500 ####[facility] [address] [place], [address] Platelets (Bld) [#/Vol] 311 10*3/uL Normal 150-450 [facility] Comment on above: Performed By: #### L 100.0100, L500.2500 ####[facility] [address] [place], [address] RBC (Bld) [#/Vol] 4.75 10*6/uL Normal 4.6-6.2 [facility] Comment on above: Performed By: #### L 100.0100, L500.2500 ####[facility] [address] [place], [address] RDW SD 49.3 fl High 35.1-43.9 [facility] Comment on above: Performed By: #### L 100.0100, L500.2500 ####[facility] [address] [place], [address] WBC (Bld) [#/Vol] 8.1 10*3/uL Normal 4.4-11.0 [facility] Comment on above: Performed By: #### L 100.0100, L500.2500 ####[facility] [address] [place], [address] Folates, (Folic Acid)on 05-29 FOLATES 46.60 ng/mL Normal 3.1-55.4 [facility] Comment on above: Order Comment: 'TROP ' Serial specimen #1, #2 or #3: 1 Performed By: #### L 500.3400, L501.2450, L100.0100, L500.2500, L501.4020, L300.8000 #### [facility] [address] [place], [address] Folic acid measurementOrdere d By: Ronak Cui on 06-12-2024 Folate 46.60 ng/mL 3.1-55.4 [facility] Legionella Antigen Urineon 0 06-12-2024 LEGU URINE, SUPRAPUBIC Legionella Antigen result interpretation: L pneumo Ag Ur Ql Negative Presumptive negative for Legionella pneumophila serogroup 1 antigen in urine, suggesting no recent or current infection. Legionella Ag, Urine Negative (See interpretation below) Normal [facility] Comment on above: Performed By: #### L 500.3400, L501.2450, L100.0100, L500.2500, L501.4020, L300.8000 #### [facility] [address] [place], [address] Methadone, urineOrdered By: Ronak Cui on 06-12-2024 Urine Methadone Screen Negative < 300 ng/mL [facility] No Panel InformationOrdered By: Ronak Cui on 06-12-2024 Urine Drug Screen Comment [facility] Comment on above: CONFIRMATORY TESTING FOR ALL [...] Ql (U) Positive High < 300 ng/mL [facility] Strep pneumoniae Antig(UR,CS F)on 06-12-2024 STPAG URINE, [...] been changed. 06/12/24 1523 by KARAN Funez [facility] Comment on above: Performed By: #### L 500.3400, L501.2450, L100.0100, L500.2500, L501.4020, L300.8000 #### [facility] [address] [place], [address] TSH QnOrdered By: Ronak muro on 06-12-2024 Thyroid Stimulating Hormone (TSH) 4.130 uIU/mL High 0.358-3.74 0 [facility] Thyroid Stim Hormone (TSH)on 06-12-2024 TSH 4.130 uIU/mL High 0.358-3.74 0 [facility] Comment on above: Order Comment: 'TROP ' Serial specimen #1, #2 or #3: 1 Performed By: #### L 500.3400, L501.2450, L100.0100, L500.2500, L501.4020, L300.8000 #### [facility] [address] [place], [address] Urine Drug Screen (VISTA)on 06-12-2024 AMPHETAMINES Negative Normal <1000 ng/mL [facility] Comment on above: Performed By: #### L 500.3400, L501.2450, L100.0100, L500.2500, L501.4020, L300.8000 #### [facility] [address] [place], [address] BARBITIURATES Negative Normal < 200 ng/mL [facility] Comment on above: Performed By: #### L 500.3400, L501.2450, L100.0100, L500.2500, L501.4020, L300.8000 #### [facility] [address] [place], [address] BENZODIAZIPINE Negative Normal < 200 ng/mL [facility] Comment on above: Performed By: #### L 500.3400, L501.2450, L100.0100, L500.2500, L501.4020, L300.8000 #### [facility] [address] [place], [address] COCAINE Negative Normal < 300 ng/mL [facility] Comment on above: Performed By: #### L 500.3400, L501.2450, L100.0100, L500.2500, L501.4020, L300.8000 #### [facility] [address] [place], [address] ECSTACY Negative Normal < 500 ng/mL [facility] Comment on above: Performed By: #### L 500.3400, L501.2450, L100.0100, L500.2500, L501.4020, L300.8000 #### [facility] [address] [place], [place], [facility] METHADONE Negative Normal < 300 ng/mL [facility] Comment on above: Performed By: #### L 500.3400, L501.2450, L100.0100, L500.2500, L501.4020, L300.8000 #### [facility] [address] [place], [place], [facility] OPIATES Positive Abnormal < 300 ng/mL [facility] Comment on above: Performed By: #### L 500.3400, L501.2450, L100.0100, L500.2500, L501.4020, L300.8000 #### [facility] [address] [place], [place], [facility] PCP Negative Normal < 25 ng/mL [facility] Comment on above: Performed By: #### L 500.3400, L501.2450, L100.0100, L500.2500, L501.4020, L300.8000 #### [facility] [address] [place], [place], [facility] THC Positive Abnormal < 50 ng/mL [facility] Comment on above: Performed By: #### L 500.3400, L501.2450, L100.0100, L500.2500, L501.4020, L300.8000 #### [facility] [address] [place], [place], [facility] VISTA UDS PH 5 Normal [facility] Comment on above: Performed By: #### L 500.3400, L501.2450, L100.0100, L500.2500, L501.4020, L300.8000 #### [facility] [address] [place], [address] Urine amphetamine measuremen tOrdered By: Ronak Cui on 06-12-2024 Amphetamines Ql (U) Negative <1000 ng/mL [facility] Urine barbiturates measureme ntOrdered By: Ronak Cui on 06-12-2024 Urine Barbiturates Screen Negative < 200 ng/mL [facility] Urine benzodiazepine levelOr dered By: Ronak Cui on 06-12-2024 Benzodiazepines Ql (U) Negative < 200 ng/mL [facility] Urine cocaine levelOrdered B y: Ronak Cui on 06-12-2024 Cocaine Ql (U) Negative < 300 ng/mL [facility] Urine hijxj-5-hwdswdbwpibtlv abinol (THC) measurementOrdered By: Ronak Cui on 06-12-2024 Cannabinoids Screen Ql (U) Positive High < 50 ng/m L [facility] Urine methylenedioxymethamph etamine (MDMA) measurementOrdered By: Ronak Cui on 06-12-2024 MDMA (Ecstasy) Screen Negative < 500 ng/mL [facility] Urine phencyclidine (PCP) de tectionOrdered By: Ronak Cui on 06-12-2024 Phencyclidine Ql (U) Negative < 25 ng/mL [facility] Vitamin B12on 06-12-2024 Cobalamin (Vitamin B12) [Mass/Vol] 551 pg/mL Normal 211-911 [facility] Comment on above: Performed By: #### L 500.3400, L501.2450, L100.0100, L500.2500, L501.4020, L300.8000 #### [facility] [address] [place], [address] Vitamin B12 measurementOrder ed By: Ronak Cui on 06-12-2024 Cobalamin (Vitamin B12) [Mass/Vol] 551 pg/mL 211-911 [facility] Albumin to globulin ratioOrd ered By: Alma Rosa Pedroza on 06-11-2024 Albumin/Globulin [Mass ratio] 0.6 {ratio} Low 0.9-2.4 [facility] Bilirubin Test strip Ql (U)O rdered By: Alma Rosa Sheehanelizabeth on 06-11-2024 Bilirubin Ql (U) Negative Negative [facility] Bilirubin, totalOrdered By: Alma Rosa Sheehanelizabeth on 06-11-2024 Bilirubin [Mass/Vol] 0.40 mg/dL 0.20-1.00 [facility] Comment on above: For patients on eltr ombopag therapy, use of Dimension Ada TBIL is not recommended. Blood cultureOrdered By: Marquita parr Kasia on 06-11-2024 Bacteria identified Cx Nom (Bld) No growth in 5 days. [facility] Bacteria identified Cx Nom (Bld) No growth in 5 days. [facility] CBC W/Diff, Automatedon 05-29 Absolute Lymph 2.16 X10 3/uL Normal 0.83-4.51 [facility] Comment on above: Performed By: #### L 500.3400, L501.2450, L100.0100, L500.2500, L501.4020, L300.8000 #### [facility] [address] [place], [address] Absolute Neut 9.6 X10 3/uL High 2.0-7.7 [facility] Comment on above: Performed By: #### L 500.3400, L501.2450, L100.0100, L500.2500, L501.4020, L300.8000 #### [facility] [address] [place], [address] Basophils/100 WBC (Bld) 0.3 % Normal 0-1 [facility] Comment on above: Performed By: #### L 500.3400, L501.2450, L100.0100, L500.2500, L501.4020, L300.8000 #### [facility] [address] [place], [address] Eosinophils/100 WBC (Bld) 0.7 % Normal 0-5 [facility] Comment on above: Performed By: #### L 500.3400, L501.2450, L100.0100, L500.2500, L501.4020, L300.8000 #### [facility] [address] [place], [address] Erythrocyte distribution width (RBC) [Ratio] 16.1 % High 11.6-14.6 [facility] Comment on above: Performed By: #### L 500.3400, L501.2450, L100.0100, L500.2500, L501.4020, L300.8000 #### [facility] [address] [place], [address] Hematocrit (Bld) [Volume fraction] 47.0 % Normal 40-54 [facility] Comment on above: Performed By: #### L 500.3400, L501.2450, L100.0100, L500.2500, L501.4020, L300.8000 #### [facility] [address] [place], [address] Hemoglobin (Bld) [Mass/Vol] 15.4 g/dL Normal 13.0-16. 5 [facility] Comment on above: Performed By: #### L 500.3400, L501.2450, L100.0100, L500.2500, L501.4020, L300.8000 #### [facility] [address] [place], [address] IG% 0.400 Normal 0.0-0.9 [facility] Comment on above: Result Comment: IG% - Immature Granulocytes (promyelocytes, myelocytes and metamyelocytes) > 1% indicates that a LEFT SHIFT is Present. Performed By: #### L 500.3400, L501.2450, L100.0100, L500.2500, L501.4020, L300.8000 #### [facility] [address] [place], [address] Lymphocytes/100 WBC (Bld) 17.0 % Low 19-41 [facility] Comment on above: Performed By: #### L 500.3400, L501.2450, L100.0100, L500.2500, L501.4020, L300.8000 #### [facility] [address] [place], [address] MCH (RBC) [Entitic mass] 27.6 pg Normal 27.0-32.0 [facility] Comment on above: Performed By: #### L 500.3400, L501.2450, L100.0100, L500.2500, L501.4020, L300.8000 #### [facility] [address] [place], [address] MCHC (RBC) [Mass/Vol] 32.8 g/dL Normal 32-36 [facility] Comment on above: Performed By: #### L 500.3400, L501.2450, L100.0100, L500.2500, L501.4020, L300.8000 #### [facility] [address] [place], [address] MCV (RBC) [Entitic vol] 84.2 fL Normal 80-94 [facility] Comment on above: Performed By: #### L 500.3400, L501.2450, L100.0100, L500.2500, L501.4020, L300.8000 #### [facility] [address] [place], [address] Monocytes/100 WBC (Bld) 6.0 % Normal 0-10 [facility] Comment on above: Performed By: #### L 500.3400, L501.2450, L100.0100, L500.2500, L501.4020, L300.8000 #### [facility] [address] [place], [address] Neutrophils/100 WBC (Bld) 75.6 % High 47-70 [facility] Comment on above: Performed By: #### L 500.3400, L501.2450, L100.0100, L500.2500, L501.4020, L300.8000 #### [facility] [address] [place], [address] Nucleated RBC (Bld) [#/Vol] 0 10*3/uL Normal 0-5 [facility] Comment on above: Performed By: #### L 500.3400, L501.2450, L100.0100, L500.2500, L501.4020, L300.8000 #### [facility] [address] [place], [address] Platelet mean volume (Bld) [Entitic vol] 8.9 fL Normal 6.2-12.0 [facility] Comment on above: Performed By: #### L 500.3400, L501.2450, L100.0100, L500.2500, L501.4020, L300.8000 #### [facility] [address] [place], [address] Platelets (Bld) [#/Vol] 416 10*3/uL Normal 150-450 [facility] Comment on above: Performed By: #### L 500.3400, L501.2450, L100.0100, L500.2500, L501.4020, L300.8000 #### [facility] [address] [place], [address] RBC (Bld) [#/Vol] 5.58 10*6/uL Normal 4.6-6.2 [facility] Comment on above: Performed By: #### L 500.3400, L501.2450, L100.0100, L500.2500, L501.4020, L300.8000 #### [facility] [address] [place], [address] RDW SD 48.9 fl High 35.1-43.9 [facility] Comment on above: Performed By: #### L 500.3400, L501.2450, L100.0100, L500.2500, L501.4020, L300.8000 #### [facility] [address] [place], [address] WBC (Bld) [#/Vol] 12.7 10*3/uL High 4.4-11.0 [facility] Comment on above: Performed By: #### L 500.3400, L501.2450, L100.0100, L500.2500, L501.4020, L300.8000 #### [facility] [address] [place], [address] Calcium oxalate crystals LM Ql (Urine sed)Ordered By: Alma Rosa Pedroza on 06-11-2024 Urine Calcium Oxalate Crystals 1+ /hpf [facility] Chest 1 View (Portable)on Chest 1 View (Portable) [facility] Imaging Services [address] [place] [address] Chest 1 View (Portable) MR#: [id number] Acct: [id number] Name: BAUTISTA RUFFIN Rep #: [id number] : 1960 M 64 From: Bautista De La Paz MD PCP: [facility] Status: [facility] Study: Chest 1 View (Portable) Date of Exam: 06/11/24 Exam# [id number] Ordering Dr: Alma Rosa Pedroza DO [id number] STUDY: X-RAY CHEST REASON FOR EXAM: Male, [...] 18:32 EST Reading Location ID and State: [address] [place] [address] Tel , Service support , CC: Dr. Alma Rosa Pedroza DO; [facility] [employer] Supervisor: Signed Normal [facility] Chest without Contraston Chest without Contrast [facility] Imaging Services [address] [place] [address] Chest without Contrast MR#: [id number] Acct: [id number] Name: BAUTISTA RUFFIN Rep #: [id number] : 1960 M 64 From: Bautista De La Paz MD PCP: [facility] Status: ADM IN Study: Chest without Contrast Date of Exam: 06/11/24 Exam# [id number] Ordering Dr: Ronak Quiroz DO [id number] INDICATION: Suspected RUL PNA on CXR. EXAMINATION: [...] 22:35 EST Reading Location ID and State: [address] [place] [address] Tel , Service support , CC: Dr. Ronak Quiroz, DO; [facility] [employer] Supervisor: Signed Normal [facility] Comprehensive Metabolic Prof ilon 06-11-2024 Albumin [Mass/Vol] 2.8 g/dL Low 3.2-5.0 [facility] Comment on above: Order Comment: 'TROP ' Serial specimen #1, #2 or #3: 1 Performed By: #### L 500.3400, L501.2450, L100.0100, L500.2500, L501.4020, L300.8000 #### [facility] [address] [place], [address] Albumin/Globulin [Mass ratio] 0.6 {ratio} Low 0.9-2.4 [facility] Comment on above: Order Comment: 'TROP ' Serial specimen #1, #2 or #3: 1 Performed By: #### L 500.3400, L501.2450, L100.0100, L500.2500, L501.4020, L300.8000 #### [facility] [address] [place], [address] ALK P 168 U/L High 45-117 [facility] Comment on above: Order Comment: 'TROP ' Serial specimen #1, #2 or #3: 1 Performed By: #### L 500.3400, L501.2450, L100.0100, L500.2500, L501.4020, L300.8000 #### [facility] [address] [place], [address] ALT [Catalytic activity/Vol] 10 U/L Low 16-61 [facility] Comment on above: Order Comment: 'TROP ' Serial specimen #1, #2 or #3: 1 Performed By: #### L 500.3400, L501.2450, L100.0100, L500.2500, L501.4020, L300.8000 #### [facility] [address] [place], [address] AST [Catalytic activity/Vol] 10 U/L Low 15-37 [facility] Comment on above: Order Comment: 'TROP ' Serial specimen #1, #2 or #3: 1 Performed By: #### L 500.3400, L501.2450, L100.0100, L500.2500, L501.4020, L300.8000 #### [facility] [address] [place], [address] Bilirubin [Mass/Vol] 0.40 mg/dL Normal 0.20-1.00 [facility] Comment on above: Order Comment: 'TROP ' Serial specimen #1, #2 or #3: 1 Result Comment: For patients on eltrombopag therapy, use of Dimension Ada TBIL is not recommended. Performed By: #### L 500.3400, L501.2450, L100.0100, L500.2500, L501.4020, L300.8000 #### [facility] [address] [place], [address] BUN/CRE 19.7 RATIO Normal 10-20 [facility] Comment on above: Order Comment: 'TROP ' Serial specimen #1, #2 or #3: 1 Performed By: #### L 500.3400, L501.2450, L100.0100, L500.2500, L501.4020, L300.8000 #### [facility] [address] [place], [address] CA,Total 9.5 mg/dL Normal 8.5-10.1 [facility] Comment on above: Order Comment: 'TROP ' Serial specimen #1, #2 or #3: 1 Performed By: #### L 500.3400, L501.2450, L100.0100, L500.2500, L501.4020, L300.8000 #### [facility] [address] [place], [address] Chloride [Moles/Vol] 106 mmol/L Normal 98-107 [facility] Comment on above: Order Comment: 'TROP ' Serial specimen #1, #2 or #3: 1 Performed By: #### L 500.3400, L501.2450, L100.0100, L500.2500, L501.4020, L300.8000 #### [facility] [address] [place], [address] CO2 [Moles/Vol] 25.0 mmol/L Normal 21.0-32.0 [facility] Comment on above: Order Comment: 'TROP ' Serial specimen #1, #2 or #3: 1 Performed By: #### L 500.3400, L501.2450, L100.0100, L500.2500, L501.4020, L300.8000 #### [facility] [address] [place], [address] Creatinine [Mass/Vol] 0.61 mg/dL Low 0.70-1.30 [facility] Comment on above: Order Comment: 'TROP ' Serial specimen #1, #2 or #3: 1 Result Comment: The validity of the calculated GFR GFRAA in patients over 70 years has not been determined. Clinical correlation is essential. Performed By: #### L 500.3400, L501.2450, L100.0100, L500.2500, L501.4020, L300.8000 #### [facility] [address] [place], [address] ECRCL 123.95 ml/min Normal [facility] Comment on above: Order Comment: 'TROP ' Serial specimen #1, #2 or #3: 1 Performed By: #### L 500.3400, L501.2450, L100.0100, L500.2500, L501.4020, L300.8000 #### [facility] [address] [place], [address] EST GFR - AA 172 mL/min Normal >60 [facility] Comment on above: Order Comment: 'TROP ' Serial specimen #1, #2 or #3: 1 Result Comment: Afri can Niuean GFR Calc Performed By: #### L 500.3400, L501.2450, L100.0100, L500.2500, L501.4020, L300.8000 #### [facility] [address] [place], [address] GAP 9 Normal 5-15 [facility] Comment on above: Order Comment: 'TROP ' Serial specimen #1, #2 or #3: 1 Performed By: #### L 500.3400, L501.2450, L100.0100, L500.2500, L501.4020, L300.8000 #### [facility] [address] [place], [address] GFR/1.73 sq M.predicted among non-blacks MDRD (S/P/Bld) [Vol rate/Area] 142 mL/min/{1.73_m2} Normal >60 [facility] Comment on above: Order Comment: 'TROP ' Serial specimen #1, #2 or #3: 1 Result Comment: Non- GFR Calc Performed By: #### L 500.3400, L501.2450, L100.0100, L500.2500, L501.4020, L300.8000 #### [facility] [address] [place], [address] Globulin (S) [Mass/Vol] 5.0 g/dL High 2.2-4.2 [facility] Comment on above: Order Comment: 'TROP ' Serial specimen #1, #2 or #3: 1 Performed By: #### L 500.3400, L501.2450, L100.0100, L500.2500, L501.4020, L300.8000 #### [facility] [address] [place], [address] Glucose [Mass/Vol] 107 mg/dL High 74-106 [facility] Comment on above: Order Comment: 'TROP ' Serial specimen #1, #2 or #3: 1 Result Comment: Fast ing Glucose result from 100 to 125 mg/dL suggests IMPAIRED HOMEOSTASIS per A.D.A. criteria. Performed By: #### L 500.3400, L501.2450, L100.0100, L500.2500, L501.4020, L300.8000 #### [facility] [address] [place], [address] Potassium [Moles/Vol] 3.4 mmol/L Low 3.5-5.1 [facility] Comment on above: Order Comment: 'TROP ' Serial specimen #1, #2 or #3: 1 Performed By: #### L 500.3400, L501.2450, L100.0100, L500.2500, L501.4020, L300.8000 #### [facility] [address] [place], [address] Sodium [Moles/Vol] 140 mmol/L Normal 136-145 [facility] Comment on above: Order Comment: 'TROP ' Serial specimen #1, #2 or #3: 1 Performed By: #### L 500.3400, L501.2450, L100.0100, L500.2500, L501.4020, L300.8000 #### [facility] [address] [place], [address] T PROT 7.8 g/dL Normal 6.4-8.2 [facility] Comment on above: Order Comment: 'TROP ' Serial specimen #1, #2 or #3: 1 Performed By: #### L 500.3400, L501.2450, L100.0100, L500.2500, L501.4020, L300.8000 #### [facility] [address] [place], [address] Urea nitrogen [Mass/Vol] 12 mg/dL Normal 7-18 [facility] Comment on above: Order Comment: 'TROP ' Serial specimen #1, #2 or #3: 1 Performed By: #### L 500.3400, L501.2450, L100.0100, L500.2500, L501.4020, L300.8000 #### [facility] [address] [place], [address] Emergency Department Summary on 06-11-2024 Emergency Department Summary [facility] Medical Records Department [address] [place] [address] Emergency Department Summary 06/11/24 MR#: [id number] Acct: [id number] Name: BAUTISTA RUFFIN Rep #: [id number] : 1960 64 From: Alma Rosa Pedroza DO PCP: ID Hospital Status[facility] History of Present Illness Chief Complaint: [...] intertrochanteric hip fracture. Patient was transferred to [facility] for definitive care as he had some lytic lesions in his femur. Patient cannot really tell me why he was there what they did or what he was told. His has not arrived to the emergency department yet. I am told that patient [facility] and the 's concerned about his hip. Patient only states that he has had some flulike symptoms and that he has been just been feeling achy all over since yesterday. Patient generally feels weak. He denies fever. Denies cough. Denies vomiting or diarrhea. He denies abdominal pain. 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 Normal [facility] Epithelial cells.squamous LM Ql (Urine sed)Ordered By: Alma Rosa Pedroza on 06-11-2024 Epithelial cells.squamous LM.HPF (Urine sed) [#/Area] 0 /[HPF] 0-5 [facility] Glucose Ql (U)Ordered By: Julia waldrop Kasia on 06-11-2024 Urine Glucose (UA) Normal mg/dl Normal [facility] H AND P Exam - Hospitaliston 06-11-2024 H&P Exam - Hospitalist [facility] Medical Records Department [address] [place] [address] H P Exam - Hospitalist 06/11/242112 MR#: [id number] Acct: [id number] Name: BAUTISTA RUFFIN Rep #: [id number] : 1960 64 From: Ronak Quiroz DO PCP: [facility] Status:ADM IN Location: [facility] HPI - General General Date of Admission: [...] in his femur - s/p evaluation at [facility] with patient not felt to be a surgical candidate and recommended to follow-up with the [facility] who presents to [facility] ER complaining of worsening Right hip pain, [...] is expected to extend beyond 2 midnights. 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 Normal [facility] HIP, UNI W/ Pelvis 2-3 Views on 06-11-2024 HIP, UNI W/ Pelvis 2-3 Views [facility] Imaging Services [address] [place], [place] [address] HIP, UNI W/ Pelvis 2-3 Views MR#: [id number] Acct: [id number] Name: BAUTISTA RUFFIN Rep #: [id number] : 1960 64 From: Garry Cobian DO PCP: [facility] Status: REG ER Study: HIP, UNI W/ Pelvis 2-3 Views Date of Exam: Exam# [id number] Ordering Dr: Alma Rosa Pedroza DO [id number] INDICATION: pain EXAMINATION/TECHNIQUE: X-RAY - XR Hip [...] , CC: Dr. Alma Rosa Pedroza DO; [facility] [employer] Supervisor: Signed Normal [facility] Influenza virus A and B and SARS-CoV-2 (COVID-19) and Respiratory syncytial virus RNAOrdered By: Alma Rosa Pedroza on 06-11-2024 SARS-CoV-2 (COVID-19) RNA ZEKE+probe Ql (Unsp spec) [facility] Ketones Test strip Ql (U)Ord ered By: Alma Rosa Pedroza on 06-11-2024 Ketones Ql (U) 150 mg/dl Abnormal Negative [facility] Comment on above: CRITICAL VALUE *HCRI TICAL VALUE CALLED TO PEKVNQ98/14/25 1805 Lilian Multani.RESULTS READ BACK BY SAME. L. pneumophila Ag Ql (U)Orde red By: Ronak Cui on 06-11-2024 Legionella Antigen [facility] L501.4020on 06-11-2024 TROPONIN-I HS 6 pg/mL Normal 3.0-78.0 [facility] Comment on above: Order Comment: 'TROP ' Serial specimen #1, #2 or #3: 1 Result Comment: Plea se Note: New Test Units and Gender Specific Reference Ranges. For more information see Policy Stat Procedure Ada High Sensitivity Troponin (TNIH) and attachments. Performed By: #### L 500.3400, L501.2450, L100.0100, L500.2500, L501.4020, L300.8000 #### [facility] [address] [place], [address] Laboratory - Chemistry and C hemistry - challengeOrdered By: Alma Rosa Pedroza on 06-11-2024 AST [Catalytic activity/Vol] 10 U/L Low 15-37 [facility] Lactic Acidon 01-14-2025 Lactate [Moles/Vol] 1.4 mmol/L Normal 0.4-1.9 [facility] Comment on above: Order Comment: Y Performed By: #### L 500.3400, L501.2450, L100.0100, L500.2500, L501.4020, L300.8000 #### [facility] [address] [facility] [place], [place], [address] Lactic acid measurementOrder ed By: Alma Rosa Pedroza on 06-11-2024 Lactate [Moles/Vol] 1.4 mmol/L 0.4-2.0 [facility] M100.678on 06-11-2024 M100.678 Pending SARS-CoV-2 (COVID 19) Negative INFLUENZA A Negative INFLUENZA B Negative RSV PCR Negative Normal [facility] Comment on above: Performed By: #### L 500.3400, L501.2450, L100.0100, L500.2500, L501.4020, L300.8000 #### [facility] [address] [place], [place], [address] Microscopic analysis of urin e for red blood cells (RBC)Ordered By: Alma Rosa Pedroza on 06-11-2024 Urine RBC 25-50 SEEN /hpf 0-5 [facility] Mucus LM Ql (Urine sed)Order ed By: Alma Rosa Pedroza on 06-11-2024 Mucus Ql (Urine sed) 2+ /hpf [facility] Nitrite Test strip Ql (U)Ord ered By: Alma Rosa Pedroza on 06-11-2024 Nitrite Ql (U) Positive High Negative [facility] Protein Test strip Ql (U)Ord ered By: Alma Rosa Pedroza on 06-11-2024 Protein Ql (U) 100 mg/dl High Negative [facility] Serum globulin measurementOr dered By: Alma Rosa Pedroza on 06-11-2024 Globulin (S) [Mass/Vol] 5.0 g/dL High 2.2-4.2 [facility] Serum or plasma alanine hooper otransferase (ALT) measurementOrdered By: Alma Rosa Pedroza on 06-11-2024 ALT [Catalytic activity/Vol] 10 U/L Low 16-61 [facility] Serum or plasma albumin shantal urement (mass/volume)Ordered By: Alma Rosa Sheehanelizabeth on 06-11-2024 Albumin [Mass/Vol] 2.8 g/dL Low 3.2-5.0 [facility] Serum or plasma alkaline radha sphatase measurementOrdered By: Rem Ungelizabeth on 06-11-2024 ALP [Catalytic activity/Vol] 168 U/L High 45-117 [facility] Streptococcus pneumoniae ant igen assayOrdered By: Ronak Cui on 06-11-2024 Streptococcus pneumoniae Antigen (M [facility] Total proteinOrdered By: Marquita Pedroza on 06-11-2024 Protein [Mass/Vol] 7.8 g/dL 6.4-8.2 [facility] Troponin IOrdered By: Alma Rosa Sheehanelizabeth on 06-11-2024 Troponin I High Sensitivity 6 pg/mL 3.0-78.0 [facility] Comment on above: Please Note: New Tanya t Units and Gender Specific Reference Ranges. For more information see Policy Stat Procedure Ada High Sensitivity Troponin (TNIH) and attachments. Urinalysis, Completeon 06-11 BACTERIA 4+ /hpf Normal None Seen [facility] Comment on above: Order Comment: 'TROP ' Serial specimen #1, #2 or #3: 1 Performed By: #### L 500.3400, L501.2450, L100.0100, L500.2500, L501.4020, L300.8000 #### [facility] [address] [place], [place], [address] CA OX CRYSTAL 1+ /hpf Normal [facility] Comment on above: Order Comment: 'TROP ' Serial specimen #1, #2 or #3: 1 Performed By: #### L 500.3400, L501.2450, L100.0100, L500.2500, L501.4020, L300.8000 #### [facility] [address] [place], [address] EPI,SQUAMOUS 0-5 SEEN Normal 0-5 [facility] Comment on above: Order Comment: 'TROP ' Serial specimen #1, #2 or #3: 1 Performed By: #### L 500.3400, L501.2450, L100.0100, L500.2500, L501.4020, L300.8000 #### [facility] [address] [place], [address] Mucus Ql (Urine sed) 2+ /hpf Normal [facility] Comment on above: Order Comment: 'TROP ' Serial specimen #1, #2 or #3: 1 Performed By: #### L 500.3400, L501.2450, L100.0100, L500.2500, L501.4020, L300.8000 #### [facility] [address] [place], [address] RBC 25-50 SEEN Normal 0-5 [facility] Comment on above: Order Comment: 'TROP ' Serial specimen #1, #2 or #3: 1 Performed By: #### L 500.3400, L501.2450, L100.0100, L500.2500, L501.4020, L300.8000 #### [facility] [address] [place], [address] WBC >100 SEEN Normal 0-5 [facility] Comment on above: Order Comment: 'TROP ' Serial specimen #1, #2 or #3: 1 Performed By: #### L 500.3400, L501.2450, L100.0100, L500.2500, L501.4020, L300.8000 #### [facility] [address] [place], [address] Urine blood detectionOrdered By: Remus Ungur on 06-11-2024 Urine Occult Blood 250 /ul High Negative [facility] Urine clarityOrdered By: Rem us Ungur on 06-11-2024 Clarity (U) Cloudy Clear [facility] Urine color determinationOrd ered By: Remus Ungur on 06-11-2024 Color (U) Yellow Yellow [facility] Urine cultureOrdered By: Rem us Ungur on 06-11-2024 Bacteria identified Cx Nom (U) Pseudomonas aeruginosa Abnormal [facility] Urine leukocyte esterase det ection by dipstickOrdered By: Alma Rosa Pedroza on 06-11-2024 Leukocyte esterase Test strip Ql (U) 500 /ul High Negative [facility] Urine pHOrdered By: Alma Rosa Un gur on 06-11-2024 pH (U) 6.0 [pH] 5.0 - 8.0 [facility] Urine sediment bacteria coun t by microscopy (number/high power field)Ordered By: Alma Rosa Pedroza on 06-11-2024 Bacteria LM.HPF (Urine sed) [#/Area] 4 /[HPF] None Seen [facility] Urine specific gravity measu rementOrdered By: Alma Rosa Pedroza on 06-11-2024 Specific gravity (U) [Rel density] 1.025 1.002-1.03 0 [facility] Urobilinogen Ql (U)Ordered B y: Alma Rosa Pedroza on 06-11-2024 Urine Urobilinogen Normal mg/dl Normal [facility] Venous Duplex Imag/Limited/U nion 06-11-2024 Venous Duplex Imag/Limited/Uni [facility] Imaging Services [address] [place], [place] [address] Venous Duplex Imag/Limited/Uni MR#: [id number] Acct: [id number] Name: BAUTISTA RUFFIN Rep #: [id number] : 1960 M 64 From: Garry Cobian DO PCP: ID Hospital Status: REG ER Study: Venous Duplex Imag/Limited/Uni Date of Exam: 0 06/11/24 Exam# [id number] Ordering Dr: Alma Rosa Pedroza DO [id number] INDICATION: RT LEG PAIN EXAMINATION: Ultrasound US [...] 20:09 EST Reading Location ID and State: [facility] / [place] Tel [phone], Service support , CC: Dr. Alma Rosa Pedroza DO; [facility] [employer] Supervisor: Signed Normal [facility] White blood cell countOrdere d By: Alma Rosa Pedroza on 06-11-2024 Urine WBC >100 SEEN /hpf 0-5 [facility] CNPNon 05-06-2024 CNPN Telephone (AGPOB1) BAUTISTA RUFFIN ([id number]) 1960 M Date Time Provider Department 05/06/24 HETAL GALLEGOS During your visit today, we recorded the following information about you: Stacy Gongora 05/06/2024 8:17 AM Signed ----- Message from Hetal Gallegos MD sent at 05/04/2024 12:05 PM EST ----- Follow-up in 3 weeks please Stacy Gongora 05/06/2024 8:17 AM Signed I called the patient to schedule an appointment with [facility] in 3 weeks. I left a voice [...] Status:Closed by STACY GONGORA on 05/10/24 Normal [facility] Basic Metabolic Profile (BMP )on 05-03-2024 BUN/CRE 15.2 RATIO Normal 10-20 [facility] Comment on above: Performed By: #### L 500.3400, L501.2450, L100.0100, L500.2500, L501.4020, L300.8000 #### [facility] [address] [place], [address] CA,Total 9.4 mg/dL Normal 8.5-10.1 [facility] Comment on above: Performed By: #### L 500.3400, L501.2450, L100.0100, L500.2500, L501.4020, L300.8000 #### [facility] [address] [place], [address] Chloride [Moles/Vol] 106 mmol/L Normal 98-107 [facility] Comment on above: Performed By: #### L 500.3400, L501.2450, L100.0100, L500.2500, L501.4020, L300.8000 #### [facility] [address] [place], [address] CO2 [Moles/Vol] 33.0 mmol/L High 21.0-32.0 [facility] Comment on above: Performed By: #### L 500.3400, L501.2450, L100.0100, L500.2500, L501.4020, L300.8000 #### [facility] [address] [place], [address] Creatinine [Mass/Vol] 0.92 mg/dL Normal 0.70-1.30 [facility] Comment on above: Result Comment: The validity of the calculated GFR GFRAA in patients over 70 years has not been determined. Clinical correlation is essential. Performed By: #### L 500.3400, L501.2450, L100.0100, L500.2500, L501.4020, L300.8000 #### [facility] [address] [place], [address] ECRCL 82.18 ml/min Normal [facility] Comment on above: Performed By: #### L 500.3400, L501.2450, L100.0100, L500.2500, L501.4020, L300.8000 #### [facility] [address] [place], [address] EST GFR - AA 106 mL/min Normal >60 [facility] Comment on above: Result Comment: Afri can Niuean GFR Calc Performed By: #### L 500.3400, L501.2450, L100.0100, L500.2500, L501.4020, L300.8000 #### [facility] [address] [place], [address] GAP 2 Low 5-15 [facility] Comment on above: Performed By: #### L 500.3400, L501.2450, L100.0100, L500.2500, L501.4020, L300.8000 #### [facility] [address] [place], [address] GFR/1.73 sq M.predicted among non-blacks MDRD (S/P/Bld) [Vol rate/Area] 88 mL/min/{1.73_m2} Normal >60 [facility] Comment on above: Result Comment: Non- GFR Calc Performed By: #### L 500.3400, L501.2450, L100.0100, L500.2500, L501.4020, L300.8000 #### [facility] [address] [place], [address] Glucose [Mass/Vol] 97 mg/dL Normal 74-106 [facility] Comment on above: Performed By: #### L 500.3400, L501.2450, L100.0100, L500.2500, L501.4020, L300.8000 #### [facility] [address] [place], [address] Potassium [Moles/Vol] 4.1 mmol/L Normal 3.5-5.1 [facility] Comment on above: Performed By: #### L 500.3400, L501.2450, L100.0100, L500.2500, L501.4020, L300.8000 #### [facility] [address] [place], [address] Sodium [Moles/Vol] 140 mmol/L Normal 136-145 [facility] Comment on above: Performed By: #### L 500.3400, L501.2450, L100.0100, L500.2500, L501.4020, L300.8000 #### [facility] [address] [place], [address] Urea nitrogen [Mass/Vol] 14 mg/dL Normal 7-18 [facility] Comment on above: Performed By: #### L 500.3400, L501.2450, L100.0100, L500.2500, L501.4020, L300.8000 #### [facility] [address] [place], [address] Basic metabolic 2000 panelon 05-03-2024 Anion gap [Moles/Vol] 10 mmol/L Normal 8-15 [facility] Comment on above: Order Comment: Speci men Type: BLOOD SPECIMEN Ordering Facility: [facility] Address: [address] [place] [address] Performed By: #### 2 4321-2 #### [facility] CLIA [id number] 1 [place] [address] [place] Calcium [Mass/Vol] 9.1 mg/dL Normal 8.5-10.2 [facility] Comment on above: Order Comment: Speci men Type: BLOOD SPECIMEN Ordering Facility: [facility] Address: [address] [place] [address] Performed By: #### 2 4321-2 #### [facility] CLIA [id number] [address] [place] Chloride [Moles/Vol] 106 mmol/L Normal 98-107 [facility] Comment on above: Order Comment: Speci men Type: BLOOD SPECIMEN Ordering Facility: [facility] Address: [address] [place] [address] Performed By: #### 2 4321-2 #### [facility] CLIA [id number] [address] [place] [address] [place] CO2 [Moles/Vol] 26 mmol/L Normal 22-30 [facility] Comment on above: Order Comment: Speci men Type: BLOOD SPECIMEN Ordering Facility: [facility] Address: [address] [place] [address] Performed By: #### 2 4321-2 #### [facility] CLIA [id number] [address] [place] [address] [place] Creatinine [Mass/Vol] 0.79 mg/dL Normal 0.73-1.22 [facility] Comment on above: Order Comment: Speci men Type: BLOOD SPECIMEN Ordering Facility: [facility] Address: [address] [place] [address] Performed By: #### 2 4321-2 #### [facility] CLIA [id number] [address] [place] [address] [place] Creatinine and Glomerular filtration rate.predicted panel (S/P/Bld) 100 mL/min/1.73m??? Normal >=60 [facility] Comment on above: Order Comment: Soha bray Type: BLOOD SPECIMEN Ordering Facility: [facility] Address: [address] [place] [address] Result Comment: Carey mated Glomerular Filtration Rate [...] GFR. Performed By: #### 2 4321-2 #### [facility] CLIA [id number] [address] [place] [address] [place] Glucose [Mass/Vol] 92 mg/dL Normal 74-99 [facility] Comment on above: Order Comment: Soha bray Type: BLOOD SPECIMEN Ordering Facility: [facility] Address: [address] [place] [address] Result Comment: The [place] Diabetes Association (ADA) provides guidance for cutoff [...] Standards of Medical Care in Diabetes 2016, [place] Diabetes Association. Diabetes Care. 2016.39(Suppl 1). Performed By: #### 2 4321-2 #### [facility] CLIA [id number] [address] [place] [address] [place] Potassium [Moles/Vol] 4.3 mmol/L Normal 3.7-5.1 [facility] Comment on above: Order Comment: Soha bray Type: BLOOD SPECIMEN Ordering Facility: [facility] Address: [address] [place] [address] Performed By: #### 2 4321-2 #### [facility] CLIA [id number] [address] [place] [facility] Sodium [Moles/Vol] 142 mmol/L Normal 136-144 [facility] Comment on above: Order Comment: Speci men Type: BLOOD SPECIMEN Ordering Facility: [facility] Address: [address] [place] [address] Performed By: #### 2 4321-2 #### [facility] CLIA [id number] [address] [place] Urea nitrogen [Mass/Vol] 13 mg/dL Normal 9-24 [facility] Comment on above: Order Comment: Speci men Type: BLOOD SPECIMEN Ordering Facility: [facility] Address: [address] [place] [address] Performed By: #### 2 4321-2 #### [facility] CLIA [id number] [address] [place] [facility] CBC W Auto Differential pane l (Bld)on 05-03-2024 Basophils (Bld) [#/Vol] 0.07 10*3/uL Normal <0.11 [facility] Comment on above: Order Comment: Speci men Type: BLOOD SPECIMEN Ordering Facility: [facility] Address: [address] [place] [address] Performed By: #### 5 7021-8 #### [facility] CLIA [id number] [address] Basophils/100 WBC (Bld) 0.5 % Normal [facility] Comment on above: Order Comment: Speci men Type: BLOOD SPECIMEN Ordering Facility: [facility] Address: [address] [place] [address] Performed By: #### 5 7021-8 #### [facility] CLIA [id number] [address] Differential cell count method Nom (Bld) Auto Normal [facility] Comment on above: Order Comment: Speci men Type: BLOOD SPECIMEN Ordering Facility: [facility] Address: [address] [place] [address] Performed By: #### 5 7021-8 #### [facility] CLIA [id number] [address] [place] Eosinophils (Bld) [#/Vol] 0.47 10*3/uL High <0.46 [facility] Comment on above: Order Comment: Speci men Type: BLOOD SPECIMEN Ordering Facility: [facility] Address: [address] [place] [address] Performed By: #### 5 7021-8 #### [facility] CLIA [id number] [address] Eosinophils/100 WBC (Bld) 3.2 % Normal [facility] Comment on above: Order Comment: Speci men Type: BLOOD SPECIMEN Ordering Facility: [facility] Address: [address] [place] [address] Performed By: #### 5 7021-8 #### [facility] CLIA [id number] [address] [place] Erythrocyte distribution width (RBC) [Ratio] 18.1 % High 11.5-15.0 [facility] Comment on above: Order Comment: Speci men Type: BLOOD SPECIMEN Ordering Facility: [facility] Address: [address] [place] [address] Performed By: #### 5 7021-8 #### [facility] CLIA [id number] [address] Hematocrit (Bld) [Volume fraction] 49.5 % Normal 39.0-51.0 [facility] Comment on above: Order Comment: Speci men Type: BLOOD SPECIMEN Ordering Facility: [facility] Address: [address] [place] [address] Performed By: #### 5 7021-8 #### [facility] CLIA [id number] [address] [place] Hemoglobin (Bld) [Mass/Vol] 16.3 g/dL Normal 13.0-17. 0 [facility] Comment on above: Order Comment: Speci men Type: BLOOD SPECIMEN Ordering Facility: [facility] Address: [address] [place] [address] Performed By: #### 5 7021-8 #### [facility] CLIA [id number] [address] [place] Immature granulocytes (Bld) [#/Vol] 0.08 10*3/uL Normal <0.10 [facility] Comment on above: Order Comment: Speci men Type: BLOOD SPECIMEN Ordering Facility: [facility] Address: [address] [place] [address] Performed By: #### 5 7021-8 #### [facility] CLIA [id number] [address] [place] Immature granulocytes/100 WBC (Bld) 0.5 % Normal [facility] Comment on above: Order Comment: Speci men Type: BLOOD SPECIMEN Ordering Facility: [facility] Address: [address] [place] [address] Performed By: #### 5 7021-8 #### [facility] CLIA [id number] [address] [place] Lymphocytes (Bld) [#/Vol] 3.35 10*3/uL Normal 1.00-4.0 0 [facility] Comment on above: Order Comment: Speci men Type: BLOOD SPECIMEN Ordering Facility: [facility] Address: [address] [place] [address] Performed By: #### 5 7021-8 #### [facility] CLIA [id number] [address] [place] Lymphocytes/100 WBC (Bld) 22.8 % Normal [facility] Comment on above: Order Comment: Speci men Type: BLOOD SPECIMEN Ordering Facility: [facility] Address: [address] [place] [address] Performed By: #### 5 7021-8 #### [facility] CLIA [id number] [address] MCH (RBC) [Entitic mass] 28.6 pg Normal 26.0-34.0 [facility] Comment on above: Order Comment: Speci men Type: BLOOD SPECIMEN Ordering Facility: [facility] Address: [address] [place] [address] Performed By: #### 5 7021-8 #### [facility] CLIA [id number] [address] [facility] MCHC (RBC) [Mass/Vol] 32.9 g/dL Normal 30.5-36.0 [facility] Comment on above: Order Comment: Speci men Type: BLOOD SPECIMEN Ordering Facility: [facility] Address: [address] [place] [address] Performed By: #### 5 7021-8 #### [facility] CLIA [id number] [address] MCV (RBC) [Entitic vol] 86.8 fL Normal 80.0-100.0 [facility] Comment on above: Order Comment: Speci men Type: BLOOD SPECIMEN Ordering Facility: [facility] Address: [address] [place] [address] Performed By: #### 5 7021-8 #### [facility] CLIA [id number] [address] Monocytes (Bld) [#/Vol] 1.45 10*3/uL High <0.87 [facility] Comment on above: Order Comment: Speci men Type: BLOOD SPECIMEN Ordering Facility: [facility] Address: [address] [place] [address] Performed By: #### 5 7021-8 #### [facility] CLIA [id number] [address] Monocytes/100 WBC (Bld) 9.9 % Normal [facility] Comment on above: Order Comment: Speci men Type: BLOOD SPECIMEN Ordering Facility: [facility] Address: [address] [place] [address] Performed By: #### 5 7021-8 #### [facility] CLIA [id number] [address] [place] Neutrophils (Bld) [#/Vol] 9.29 10*3/uL High 1.45-7.5 0 [facility] Comment on above: Order Comment: Speci men Type: BLOOD SPECIMEN Ordering Facility: [facility] Address: [address] [place] [address] Performed By: #### 5 7021-8 #### [facility] CLIA [id number] [address] [place] Neutrophils/100 WBC (Bld) 63.1 % Normal [facility] Comment on above: Order Comment: Speci men Type: BLOOD SPECIMEN Ordering Facility: [facility] Address: [address] [place] [address] Performed By: #### 5 7021-8 #### [facility] CLIA [id number] [address] [place] Nucleated RBC (Bld) [#/Vol] 10*3/uL Normal <0.01 [facility] Comment on above: Order Comment: Speci men Type: BLOOD SPECIMEN Ordering Facility: [facility] Address: [address] [place] [address] Performed By: #### 5 7021-8 #### [facility] CLIA [id number] [address] Nucleated RBC/100 WBC (Bld) [Ratio] 0.0 /100 WBC Normal [facility] Comment on above: Order Comment: Speci men Type: BLOOD SPECIMEN Ordering Facility: [facility] Address: [address] [place] [address] Performed By: #### 5 7021-8 #### [facility] CLIA [id number] [address] Platelet mean volume (Bld) [Entitic vol] 9.5 fL Normal 9.0-12.7 [facility] Comment on above: Order Comment: Speci men Type: BLOOD SPECIMEN Ordering Facility: [facility] Address: [address] [id number] Performed By: #### 5 7021-8 #### [facility] CLIA [id number] [address] [facility] Platelets (Bld) [#/Vol] 268 10*3/uL Normal 150-400 [facility] Comment on above: Order Comment: Speci men Type: BLOOD SPECIMEN Ordering Facility: [facility] Address: [address] [place] [address] Performed By: #### 5 7021-8 #### [facility] CLIA [id number] [address] [facility] RBC (Bld) [#/Vol] 5.70 10*6/uL Normal 4.20-6.00 [facility] Comment on above: Order Comment: Speci men Type: BLOOD SPECIMEN Ordering Facility: [facility] Address: [address] [place] [address] Performed By: #### 5 7021-8 #### [facility] CLIA [id number] [address] [place] WBC (Bld) [#/Vol] 14.71 10*3/uL High 3.70-11.00 [facility] Comment on above: Order Comment: Speci men Type: BLOOD SPECIMEN Ordering Facility: [facility] Address: [address] [place] [address] Performed By: #### 5 7021-8 #### [facility] CLIA [id number] [address] [place] CBC W/Diff, Automatedon 12-0 6-4 Absolute Lymph 3.24 X10 3/uL Normal 0.83-4.51 [facility] Comment on above: Performed By: #### L 500.3400, L501.2450, L100.0100, L500.2500, L501.4020, L300.8000 #### [facility] [address] [place], [address] Absolute Neut 7.8 X10 3/uL High 2.0-7.7 [facility] Comment on above: Performed By: #### L 500.3400, L501.2450, L100.0100, L500.2500, L501.4020, L300.8000 #### [facility] [address] [place], [address] Basophils/100 WBC (Bld) 0.5 % Normal 0-1 [facility] Comment on above: Performed By: #### L 500.3400, L501.2450, L100.0100, L500.2500, L501.4020, L300.8000 #### [facility] [address] [place], [address] Eosinophils/100 WBC (Bld) 3.5 % Normal 0-5 [facility] Comment on above: Performed By: #### L 500.3400, L501.2450, L100.0100, L500.2500, L501.4020, L300.8000 #### [facility] [address] [place], [address] Erythrocyte distribution width (RBC) [Ratio] 18.0 % High 11.6-14.6 [facility] Comment on above: Performed By: #### L 500.3400, L501.2450, L100.0100, L500.2500, L501.4020, L300.8000 #### [facility] [address] [place], [address] Hematocrit (Bld) [Volume fraction] 53.3 % Normal 40-54 [facility] Comment on above: Performed By: #### L 500.3400, L501.2450, L100.0100, L500.2500, L501.4020, L300.8000 #### [facility] [address] [place], [address] Hemoglobin (Bld) [Mass/Vol] 17.0 g/dL High 13.0-16. 5 [facility] Comment on above: Performed By: #### L 500.3400, L501.2450, L100.0100, L500.2500, L501.4020, L300.8000 #### [facility] [address] [place], [address] IG% 0.400 Normal 0.0-0.9 [facility] Comment on above: Result Comment: IG% - Immature Granulocytes (promyelocytes, myelocytes and metamyelocytes) > 1% indicates that a LEFT SHIFT is Present. Performed By: #### L 500.3400, L501.2450, L100.0100, L500.2500, L501.4020, L300.8000 #### [facility] [address] [place], [address] Lymphocytes/100 WBC (Bld) 25.4 % Normal 19-41 [facility] Comment on above: Performed By: #### L 500.3400, L501.2450, L100.0100, L500.2500, L501.4020, L300.8000 #### [facility] [address] [place], [address] MCH (RBC) [Entitic mass] 27.6 pg Normal 27.0-32.0 [facility] Comment on above: Performed By: #### L 500.3400, L501.2450, L100.0100, L500.2500, L501.4020, L300.8000 #### [facility] [address] [place], [address] MCHC (RBC) [Mass/Vol] 31.9 g/dL Low 32-36 [facility] Comment on above: Performed By: #### L 500.3400, L501.2450, L100.0100, L500.2500, L501.4020, L300.8000 #### [facility] [address] [place], [address] MCV (RBC) [Entitic vol] 86.4 fL Normal 80-94 [facility] Comment on above: Performed By: #### L 500.3400, L501.2450, L100.0100, L500.2500, L501.4020, L300.8000 #### [facility] [address] [place], [address] Monocytes/100 WBC (Bld) 8.8 % Normal 0-10 [facility] Comment on above: Performed By: #### L 500.3400, L501.2450, L100.0100, L500.2500, L501.4020, L300.8000 #### [facility] [address] [place], [address] Neutrophils/100 WBC (Bld) 61.4 % Normal 47-70 [facility] Comment on above: Performed By: #### L 500.3400, L501.2450, L100.0100, L500.2500, L501.4020, L300.8000 #### [facility] [address] [place], [address] Nucleated RBC (Bld) [#/Vol] 0 10*3/uL Normal 0-5 [facility] Comment on above: Performed By: #### L 500.3400, L501.2450, L100.0100, L500.2500, L501.4020, L300.8000 #### [facility] [address] [place], [address] Platelet mean volume (Bld) [Entitic vol] 9.6 fL Normal 6.2-12.0 [facility] Comment on above: Performed By: #### L 500.3400, L501.2450, L100.0100, L500.2500, L501.4020, L300.8000 #### [facility] [address] [place], [address] Platelets (Bld) [#/Vol] 299 10*3/uL Normal 150-450 [facility] Comment on above: Performed By: #### L 500.3400, L501.2450, L100.0100, L500.2500, L501.4020, L300.8000 #### [facility] [address] [place], [address] RBC (Bld) [#/Vol] 6.17 10*6/uL Normal 4.6-6.2 [facility] Comment on above: Performed By: #### L 500.3400, L501.2450, L100.0100, L500.2500, L501.4020, L300.8000 #### [facility] [address] [place], [address] RDW SD 53.9 fl High 35.1-43.9 [facility] Comment on above: Performed By: #### L 500.3400, L501.2450, L100.0100, L500.2500, L501.4020, L300.8000 #### [facility] [address] [place], [address] WBC (Bld) [#/Vol] 12.8 10*3/uL High 4.4-11.0 [facility] Comment on above: Performed By: #### L 500.3400, L501.2450, L100.0100, L500.2500, L501.4020, L300.8000 #### [facility] [address] [place], [address] CONSULTon 05-03-2024 CONSULT HNO ID: [id number] Author: HETAL GALLEGOS MD Service: Orthopaedic Surgery [...] ThighPain HPI:64 year old male presented to [facility] ED on 05/03/2024 for evaluation of right thigh pain. The patient is paraplegic at baseline and is bed bound. He states he has some minimal sensation in the lower extremities. His in home caregiver was moving his leg for range of [...] Carrion MD Orthopaedic Surgery 05/03/2024 10:08 PM [facility] ED NOTEon 05-03-2024 ED NOTE HNO ID: [id number] Author: BILLY COOLEY RN Service: ? Author Type: Registered Nurse Type: ED Notes Filed: 05/03/2024 22:46 Note Text: PT personal driver light, asking for sth for pain. Dr. Grissom notified. [facility] ED NOTE HNO ID: [id number] Author: WAYNE LAMBERT Medic Service: ? Author Type: Cost Coordinator and Internal Carver Type: ED Notes Filed: 05/03/2024 16:34 Note Text: Bed: 26-ED Expected date: 05/03/24 Expected time: 4:12 PM Means of arrival: [facility] Comments: Squad when clean Normal [facility] ED PROV NOTEon 05-03-2024 ED PROV NOTE HNO ID: [id number] Author: LESLIE STRANGE MD Service: Emergency Medicine Author Type: Physician Type: ED Provider Notes Filed: 05/08/2024 09:35 Note Text: ED Provider Note Patient Name: Bautista Ruffin : 1960 SERVICE DATE: 05/03/24 History Patient presents with: Hip Pain: Patient arrives to ED from [facility] for ortho consult. Patient has right hip fracture. Occurred during PT/OT while moving leg. Patient is paraplegic. Received 50mcg of fentanyl before arrival. Patient presents as a transfer from [place] for right hip fracture. Patient has past [...] the right hip and was taken to [facility] for evaluation where he was found to have a nondisplaced subtrochanteric right femur fracture. He was transferred to [facility] for Ortho consult. PAST MEDICAL HISTORY Diagnosis [...] however he (more content not included)... Normal [facility] Emergency Department Summary on 05-03-2024 Emergency Department Summary Shakir [facility] Records Department [address] [place] [address] Emergency Department Summary 05/03/24 MR#: [id number] Acct: [id number] Name: BAUTISTA RUFFIN Rep #: [id number] : 1960 64 From: Jaclyn HOLCOMB PCP: ID Hospital Status:DEP ER Location: ED HPI History of Present Illness Chief Complaint: Lower Extremity Injury Narrative Narrative: 64-year-old male is paraplegic and states his aide was doing range of motion exercises of his legs when there was an audible pop of his right hip and he is concerned it could be out of place. No history of prior hip surgery. He is bedbound. [facility] Medical History Acute paralytic poliomyelitis, wild virus, indigenous Anxiety and depression Atherosclerotic heart disease of [place] coronary artery without angina pectoris Benign essential [...] Delivery Me (more content not included)... Normal [facility] HIP, UNI W/ Pelvis 2-3 Views on 05-03-2024 HIP, UNI W/ Pelvis 2-3 Views [facility] Imaging Services [address], [place] [address] HIP, UNI W/ Pelvis 2-3 Views MR#: [id number] Acct: [id number] Name: BAUTISTA RUFFIN Rep #: [id number] : 1960 M 64 From: Abdoul esteves MD PCP: [facility] Status: REG ER Study: HIP, UNI W/ Pelvis 2-3 Views Date of Exam: 11/19 Exam# [id number] Ordering Dr: Jaclyn Méndez [id number] STUDY: X-RAY - PELVIS AND RIGHT HIP [...] at 12:34 EST , CC: AICHA Correa; [facility] Mushroom Growing Supervisor: Signed Normal [facility] XR FEMUR 2V AP/LAT RTon -0 XR FEMUR 2V AP/LAT RT * * [...] KNEE may be obtained, as clinically warranted. Mushroom Growing Supervisor: MILAGROS Transcribe Date/Time: May 03 2024 8:06P Dictated by : ERNESTO CORRALES MD This examination was interpreted and the report reviewed and electronically signed by: ERNESTO CORRALES MD on May 03 2024 8:11PM EST [id number] Normal [facility] XR HIP 3V PELV+ AP/LAT RTon 05-03-2024 XR HIP 3V PELV+ AP/LAT RT * * *Final Rep ort* * * DATE OF EXAM: May 03 2024 7:14PM [id number] [id number] - XR HIP 3V PELV+ AP/LAT [...] KNEE may be obtained, as clinically warranted. Mushroom Growing Supervisor: MILAGROS Transcribe Date/Time: May 03 2024 8:06P Dictated by : ERNESTO CORRALES MD This examination was interpreted and the report reviewed and electronically signed by: ERNESTO CORRALES MD on May 03 2024 8:11PM EST [id number] Normal [facility] Absolute lymphocyte countOrd ered By: Adan Bell on 10-09-2023 Lymphocytes Auto (Unsp spec) [#/Vol] 3.10 10*3/uL 0.83-4.51 [facility] Automated lymphocyte count a s percentage of total leukocytesOrdered By: Adan Bell on 10-09-2023 Lymphocytes/100 WBC Auto (Unsp spec) 16.3 % 19-41 [facility] Basophil percentageOrdered B y: Adan Bell on 10-09-2023 Basophils/100 WBC (Bld) 0.6 % 0-1 [facility] Chloride [Moles/Vol] 100 mmol/L 98-107 [facility] Eosinophils/100 WBC (Bld) 0.8 % 0-5 [facility] Glucose [Mass/Vol] 124 mg/dL 74-106 [facility] Comment on above: Fasting Glucose resu lt from 100 to 125 mg/dL suggests IMPAIRED HOMEOSTASIS per A.D.A. criteria. Hemoglobin (Bld) [Mass/Vol] 16.5 g/dL 13.0-16. 5 [facility] Monocytes/100 WBC (Bld) 15.1 % 0-10 [facility] Neutrophils (Bld) [#/Vol] 12.6 10*3/uL 2.0-7.7 [facility] Neutrophils/100 WBC (Bld) 66.7 % 47-70 [facility] Potassium [Moles/Vol] 3.6 mmol/L 3.5-5.1 [facility] Sodium [Moles/Vol] 136 mmol/L 136-145 [facility] WBC (Bld) [#/Vol] 19.0 10*3/uL 4.4-11.0 [facility] Blood manual differential co mment interpretation (narrative result)Ordered By: Adan Bell on 10-09-2023 Manual differential comment Isrrael (Bld) [Interp] SCANNED [facility] Comment on above: MONOCYTOSIS PRESENT Determination of erythrocyte mean corpuscular volume (MCV)Ordered By: Adan Bell on 10-09-2023 MCV (RBC) [Entitic vol] 84.3 fL 80-94 [facility] Erythrocyte distribution wid th ratioOrdered By: Adan Bell on 10-09-2023 Erythrocyte distribution width (RBC) [Ratio] 14.9 % 11.6-14.6 [facility] Erythrocyte distribution wid th standard deviationOrdered By: Adan Bell on 10-09-2023 Erythrocyte distribution width (RBC) [Entitic vol] 45.5 fL 35.1-43.9 [facility] Hematocrit Auto (Bld) [Volum e fraction]Ordered By: Adan Bell on 10-09-2023 Hematocrit (Bld) [Volume fraction] 50.0 % 40-54 [facility] Immature granulocytes/100 WB C Auto (Bld)Ordered By: Adan Bell on 10-09-2023 Immature granulocytes/100 WBC (Bld) 0.500 % 0.0-0.9 [facility] Comment on above: IG% - Immature Granu locytes (promyelocytes, myelocytes and metamyelocytes) > 1% indicates that a LEFT SHIFT is Present. Laboratory - Chemistry and C hemistry - challengeOrdered By: Adan Bell on 10-09-2023 CO2 [Moles/Vol] 26.0 mmol/L 21.0-32.0 [facility] Urea nitrogen/Creatinine [Mass ratio] 17.3 mg/mg 10-20 [facility] Laboratory - Hematology and Cell countsOrdered By: Adan Bell on 10-09-2023 MCH (RBC) [Entitic mass] 27.8 pg 27.0-32.0 [facility] MCHC (RBC) [Mass/Vol] 33.0 g/dL 32-36 [facility] Nucleated RBC/100 WBC (Bld) [Ratio] 0 % 0-5 [facility] Platelet mean volume (Bld) [Entitic vol] 9.5 fL 6.2-12.0 [facility] Platelets (Bld) [#/Vol] 531 10*3/uL 150-450 [facility] No Panel InformationOrdered By: Adan Bell on 10-09-2023 Troponin I High Sensitivity 7 pg/mL 3.0-78.0 [facility] Comment on above: Please Note: New Tanya t Units and Gender Specific Reference Ranges. For more information see Policy Stat Procedure Ada High Sensitivity Troponin (TNIH) and attachments. Estimated GFR (MDRD) Amer 135 mL/min >60 [facility] Comment on above: GFR Calc Estimated GFR (MDRD) Non-Af Amer 112 mL/min >60 [facility] Comment on above: Non- GFR Calc RBC Auto (Bld) [#/Vol]Ordere d By: Adan Bell on 10-09-2023 RBC (Bld) [#/Vol] 5.93 10*6/uL 4.6-6.2 [facility] Review by pathologistOrdered By: Adan Bell on 10-09-2023 Pathologist review Isrrael (Unsp spec) [Interp] September [facility] Serum or plasma calcium shantal urement (mass/volume)Ordered By: Adan Bell on 10-09-2023 Calcium [Mass/Vol] 9.7 mg/dL 8.5-10.1 [facility] Serum or plasma creatinine m easurement (mass/volume)Ordered By: Adan Bell on 10-09-2023 Creatinine [Mass/Vol] 0.75 mg/dL 0.70-1.30 [facility] Comment on above: The validity of the calculated GFR & GFRAA in patients over 70 years has not been determined. Clinical correlation is essential. Serum or plasma urea nitroge n measurement (mass/volume)Ordered By: Adan Bell on 10-09-2023 Urea nitrogen [Mass/Vol] 13 mg/dL 7-18 [facility] Thin prep Papanicolaou smear with manual screeningOrdered By: Adan Bell on 10-09-2023 Thin prep Papanicolaou smear with manual screening 10 5-15 [facility] Absolute lymphocyte counton 06-06-2022 Lymphocytes Auto (Unsp spec) [#/Vol] 3.07 10*3/uL 0.83-4.51 [facility] Work Phone: Basophil percentageon 2022 Basophil percentage 10-25 SEEN /hpf 0-5 [facility] Work Phone: Basophils/100 WBC (Bld) 0.3 % 0-1 [facility] Work Phone: Chloride [Moles/Vol] 109 mmol/L 98-107 [facility] Work [facility]: Eosinophils/100 WBC (Bld) 1.4 % 0-5 [facility] Work Phone: Glucose [Mass/Vol] 93 mg/dL 74-106 [facility] Work Phone: Neutrophils (Bld) [#/Vol] 10.5 10*3/uL 2.0-7.7 [facility] Work Phone: Neutrophils/100 WBC (Bld) 67.2 % 47-70 [facility] Work Phone: Potassium [Moles/Vol] 3.8 mmol/L 3.5-5.1 [facility] Work Phone: Sodium [Moles/Vol] 143 mmol/L 136-145 [facility] Work Phone: WBC (Bld) [#/Vol] 15.7 10*3/uL 4.4-11.0 [facility] Work Phone: [phone] Bilirubin Test strip Ql (U)o n 06-06-2022 Bilirubin Ql (U) Negative Negative [facility] Work Phone: Blood erythrocytes count (nu mber/volume)on 06-06-2022 RBC (Bld) [#/Vol] 5.18 10*6/uL 4.6-6.2 [facility] Work Phone: Blood hemoglobin measurement (mass/volume)on 06-06-2022 Hemoglobin (Bld) [Mass/Vol] 14.2 g/dL 13.0-16. 5 [facility] Work Phone: Blood lymphocytes/100 leukoc yteson 06-06-2022 Lymphocytes/100 WBC (Bld) 19.6 % 19-41 [facility] Work Phone: Blood manual differential co mment interpretation (narrative result)on 06-06-2022 Manual differential comment Isrrael (Bld) [Interp] SCANNED [facility] Work Phone: [phone] Blood monocytes/100 leukocyt eson 06-06-2022 Monocytes/100 WBC (Bld) 10.9 % 0-10 [facility] Work Phone: [phone] Blood platelet mean volumeon 06-06-2022 Platelet mean volume (Bld) [Entitic vol] 9.5 fL 6.2-12.0 [facility] Work Phone: Determination of erythrocyte mean corpuscular volume (MCV)on 06-06-2022 MCV (RBC) [Entitic vol] 87.1 fL 80-94 [facility] Work Phone: [phone] Hematocrit Auto (Bld) [Volum e fraction]on 06-06-2022 Hematocrit (Bld) [Volume fraction] 45.1 % 40-54 [facility] Work Phone: Ketones Test strip Ql (U)on 06-06-2022 Ketones Ql (U) 5 mg/dl Negative [facility] Work Phone: Laboratory - Chemistry and C hemistry - challengeon 06-06-2022 CO2 [Moles/Vol] 29.0 mmol/L 21.0-32.0 [facility] Work Phone: Urea nitrogen/Creatinine [Mass ratio] 21.8 mg/mg 10-20 [facility] Work Phone: Laboratory - Hematology and Cell countson 06-06-2022 Erythrocyte distribution width (RBC) [Entitic vol] 49.6 fL 35.1-43.9 [facility] Work Phone: Erythrocyte distribution width (RBC) [Ratio] 15.7 % 11.6-14.6 [facility] Work Phone: [phone] Immature granulocytes/100 WBC (Bld) 0.600 % 0.0-0.9 [facility] Work Phone: Comment on above: IG% - Immature Granu locytes (promyelocytes, myelocytes and metamyelocytes) > 1% indicates that a LEFT SHIFT is Present. MCH (RBC) [Entitic mass] 27.4 pg 27.0-32.0 [facility] Work Phone: Nucleated RBC/100 WBC (Bld) [Ratio] 0 % 0-5 [facility] Work Phone: MCHC Auto (RBC) [Mass/Vol]on 06-06-2022 MCHC (RBC) [Mass/Vol] 31.5 g/dL 32-36 [facility] Work Phone: Mucus LM Ql (Urine sed)on Mucus Ql (Urine sed) 0 SEEN /hpf [facility] Work Phone: Nitrite Test strip Ql (U)on 06-06-2022 Nitrite Ql (U) Positive Negative [facility] Work Phone: No Panel Informationon 06-06 Estimated Creatinine Clearance Calc 88.45 ml/min [facility] Work Phone: Estimated GFR (MDRD) Amer 122 mL/min >60 [facility] Work Phone: Comment on above: GFR Calc Estimated GFR (MDRD) Non-Af Amer 101 mL/min >60 [facility] Work Phone: Comment on above: Non- GFR Calc Platelets bldon 06-06-2022 Platelets (Bld) [#/Vol] 433 10*3/uL 150-450 [facility] Work Phone: Protein Test strip Ql (U)on 06-06-2022 Protein Ql (U) 15 mg/dl Negative [facility] Work Phone: Review by pathologiston Pathologist review Isrrael (Unsp spec) [Interp] May foll [facility] Work Phone: Serum or plasma calcium shantal urement (mass/volume)on 06-06-2022 Calcium [Mass/Vol] 9.1 mg/dL 8.5-10.1 [facility] Work Phone: Serum or plasma creatinine m easurement (mass/volume)on 06-06-2022 Creatinine [Mass/Vol] 0.82 mg/dL 0.70-1.30 [facility] Work Phone: Comment on above: The validity of the calculated GFR & GFRAA in patients over 70 years has not been determined. Clinical correlation is essential. Serum or plasma urea nitroge n measurement (mass/volume)on 06-06-2022 Urea nitrogen [Mass/Vol] 18 mg/dL 7-18 [facility] Work Phone: Squamous epithelial cells de tection in urine sediment by light microscopyon 06-06-2022 Epithelial cells.squamous LM Ql (Urine sed) 0 SEEN /hpf 0-5 [facility] Work Phone: Thin prep Papanicolaou smear with manual screeningon 06-06-2022 Thin prep Papanicolaou smear with manual screening 5 5-15 [facility] Work Phone: Urine blood detectionon RBC Ql (U) 25 /ul Negative [facility] Work Phone: RBC Ql (U) 0-5 SEEN /hpf 0-5 [facility] Work Phone: Urine clarityon 06-06-2022 Clarity (U) Clear Clear [facility] Work Phone: Urine color determinationon 06-06-2022 Color (U) Yellow Yellow [facility] Work Phone: Urine glucose detectionon Glucose Ql (U) Normal mg/dl Normal [facility] Work Phone: Urine leukocyte esterase det ection by dipstickon 06-06-2022 Leukocyte esterase Test strip Ql (U) 500 /ul Negative [facility] Work Phone: Urine pHon 06-06-2022 pH (U) 6.0 [pH] 5.0 - 8.0 [facility] Work Phone: Urine sediment bacteria coun t by microscopy (number/high power field)on 06-06-2022 Bacteria LM.HPF (Urine sed) [#/Area] 2 /[HPF] None Seen [facility] Work Phone: Urine specific gravity measu rementon 06-06-2022 Specific gravity (U) [Rel density] 1.020 1.002-1.03 0 [facility] Work Phone: Urobilinogen Auto test strip Ql (U)on 06-06-2022 Urobilinogen Ql (U) Normal mg/dl Normal [facility] Work Phone: [phone] Absolute lymphocyte counton 05-22-2022 Lymphocytes Auto (Unsp spec) [#/Vol] 0.67 10*3/uL 0.83-4.51 [facility] Work Phone: Basophil percentageon 2021 Basophils/100 WBC (Bld) 0.4 % 0-1 [facility] Work Phone: Chloride [Moles/Vol] 105 mmol/L 98-107 [facility] Work Phone: Eosinophils/100 WBC (Bld) 0.1 % 0-5 [facility] Work Phone: Glucose [Mass/Vol] 102 mg/dL 74-106 [facility] Work Phone: [phone] Comment on above: Fasting Glucose resu lt from 100 to 125 mg/dL suggests IMPAIRED HOMEOSTASIS per A.D.A. criteria. Neutrophils (Bld) [#/Vol] 7.0 10*3/uL 2.0-7.7 [facility] Work Phone: Neutrophils/100 WBC (Bld) 77.2 % 47-70 [facility] Work Phone: [phone] Potassium [Moles/Vol] 4.2 mmol/L 3.5-5.1 [facility] Work Phone: [phone] Comment on above: Slight Hemolysis, Re sult may be falsely increased. Sodium [Moles/Vol] 135 mmol/L 136-145 [facility] Work Phone: WBC (Bld) [#/Vol] 9.1 10*3/uL 4.4-11.0 [facility] Work Phone: Blood erythrocytes count (nu mber/volume)on 05-22-2022 RBC (Bld) [#/Vol] 5.47 10*6/uL 4.6-6.2 [facility] Work Phone: Blood hemoglobin measurement (mass/volume)on 05-22-2022 Hemoglobin (Bld) [Mass/Vol] 15.6 g/dL 13.0-16. 5 [facility] Work Phone: Blood lymphocytes/100 leukoc yteson 05-22-2022 Lymphocytes/100 WBC (Bld) 7.3 % 19-41 [facility] Work Phone: Blood monocytes/100 leukocyt eson 05-22-2022 Monocytes/100 WBC (Bld) 14.7 % 0-10 [facility] Work Phone: Blood platelet mean volumeon 05-22-2022 Platelet mean volume (Bld) [Entitic vol] 9.7 fL 6.2-12.0 [facility] Work Phone: [phone] Determination of erythrocyte mean corpuscular volume (MCV)on 05-22-2022 MCV (RBC) [Entitic vol] 84.5 fL 80-94 [facility] Work Phone: Hematocrit Auto (Bld) [Volum e fraction]on 05-22-2022 Hematocrit (Bld) [Volume fraction] 46.2 % 40-54 [facility] Work Phone: [phone] Laboratory - Chemistry and C hemistry - challengeon 05-22-2022 CO2 [Moles/Vol] 22.0 mmol/L 21.0-32.0 [facility] Work Phone: [phone] Urea nitrogen/Creatinine [Mass ratio] 22.5 mg/mg 10-20 [facility] Work Phone: Laboratory - Hematology and Cell countson 05-22-2022 Erythrocyte distribution width (RBC) [Entitic vol] 49.6 fL 35.1-43.9 [facility] Work Phone: Erythrocyte distribution width (RBC) [Ratio] 16.1 % 11.6-14.6 [facility] Work Phone: Immature granulocytes/100 WBC (Bld) 0.300 % 0.0-0.9 [facility] Work Phone: Comment on above: IG% - Immature Granu locytes (promyelocytes, myelocytes and metamyelocytes) > 1% indicates that a LEFT SHIFT is Present. MCH (RBC) [Entitic mass] 28.5 pg 27.0-32.0 [facility] Work Phone: Nucleated RBC/100 WBC (Bld) [Ratio] 0 % 0-5 [facility] Work Phone: MCHC Auto (RBC) [Mass/Vol]on 05-22-2022 MCHC (RBC) [Mass/Vol] 33.8 g/dL 32-36 [facility] Work Phone: No Panel Informationon 05-22 Estimated Creatinine Clearance Calc 92.35 ml/min [facility] Work Phone: Estimated GFR (MDRD) Amer 119 mL/min >60 [facility] Work Phone: Comment on above: GFR Calc Estimated GFR (MDRD) Non-Af Amer 98 mL/min >60 [facility] Work Phone: Comment on above: Non- GFR Calc Platelets bldon 05-22-2022 Platelets (Bld) [#/Vol] 268 10*3/uL 150-450 [facility] Work Phone: Serum or plasma calcium shantal urement (mass/volume)on 05-22-2022 Calcium [Mass/Vol] 9.1 mg/dL 8.5-10.1 [facility] Work Phone: Serum or plasma creatinine m easurement (mass/volume)on 05-22-2022 Creatinine [Mass/Vol] 0.84 mg/dL 0.70-1.30 [facility] Work Phone: Comment on above: The validity of the calculated GFR & GFRAA in patients over 70 years has not been determined. Clinical correlation is essential. Serum or plasma urea nitroge n measurement (mass/volume)on 05-22-2022 Urea nitrogen [Mass/Vol] 19 mg/dL 7-18 [facility] Work Phone: [phone] Thin prep Papanicolaou smear with manual screeningon 05-22-2022 Thin prep Papanicolaou smear with manual screening 8 5-15 [facility] Work Phone: [phone] Absolute lymphocyte counton 09-09-2021 Lymphocytes Auto (Unsp spec) [#/Vol] 2.88 10*3/uL 0.83-4.51 [facility] Work Phone: [phone] Basophil percentageon 2021 Basophils/100 WBC (Bld) 0.5 % 0-1 [facility] Work Phone: Chloride [Moles/Vol] 111 mmol/L 98-107 [facility] Work Phone: Eosinophils/100 WBC (Bld) 4.8 % 0-5 [facility] Work Phone: [phone] Glucose [Mass/Vol] 109 mg/dL 74-106 [facility] Work Phone: [phone] Comment on above: Fasting Glucose resu lt from 100 to 125 mg/dL suggests IMPAIRED HOMEOSTASIS per A.D.A. criteria. Neutrophils (Bld) [#/Vol] 6.3 10*3/uL 2.0-7.7 [facility] Work Phone: Neutrophils/100 WBC (Bld) 59.3 % 47-70 [facility] Work Phone: [phone] Potassium [Moles/Vol] 3.9 mmol/L 3.5-5.1 [facility] Work Phone: Sodium [Moles/Vol] 140 mmol/L 136-145 [facility] Work Phone: [phone] WBC (Bld) [#/Vol] 10.5 10*3/uL 4.4-11.0 [facility] Work Phone: [phone] Blood erythrocytes count (nu mber/volume)on 09-09-2021 RBC (Bld) [#/Vol] 5.23 10*6/uL 4.6-6.2 [facility] Work Phone: [phone] Blood hemoglobin measurement (mass/volume)on 09-09-2021 Hemoglobin (Bld) [Mass/Vol] 15.0 g/dL 13.0-16. 5 [facility] Work Phone: Blood lymphocytes/100 leukoc yteson 09-09-2021 Lymphocytes/100 WBC (Bld) 27.4 % 19-41 [facility] Work Phone: Blood monocytes/100 leukocyt eson 09-09-2021 Monocytes/100 WBC (Bld) 7.5 % 0-10 [facility] Work Phone: Blood platelet mean volumeon 09-09-2021 Platelet mean volume (Bld) [Entitic vol] 9.1 fL 6.2-12.0 [facility] Work Phone: [phone] Determination of erythrocyte mean corpuscular volume (MCV)on 09-09-2021 MCV (RBC) [Entitic vol] 88.5 fL 80-94 [facility] Work Phone: Hematocrit Auto (Bld) [Volum e fraction]on 09-09-2021 Hematocrit (Bld) [Volume fraction] 46.3 % 40-54 [facility] Work Phone: [phone] Laboratory - Chemistry and C hemistry - challengeon 09-09-2021 CO2 [Moles/Vol] 25.0 mmol/L 21.0-32.0 [facility] Work Phone: [phone] Urea nitrogen/Creatinine [Mass ratio] 22.4 mg/mg 10-20 [facility] Work Phone: Laboratory - Hematology and Cell countson 09-09-2021 Erythrocyte distribution width (RBC) [Entitic vol] 49.1 fL 35.1-43.9 [facility] Work Phone: [phone] Erythrocyte distribution width (RBC) [Ratio] 15.0 % 11.6-14.6 [facility] Work Phone: Immature granulocytes/100 WBC (Bld) 0.500 % 0.0-0.9 [facility] Work Phone: Comment on above: IG% - Immature Granu locytes (promyelocytes, myelocytes and metamyelocytes) > 1% indicates that a LEFT SHIFT is Present. MCH (RBC) [Entitic mass] 28.7 pg 27.0-32.0 [facility] Work Phone: Nucleated RBC/100 WBC (Bld) [Ratio] 0 % 0-5 [facility] Work Phone: MCHC Auto (RBC) [Mass/Vol]on 09-09-2021 MCHC (RBC) [Mass/Vol] 32.4 g/dL 32-36 [facility] Work Phone: No Panel Informationon 09-09 Estimated Creatinine Clearance Calc 80.85 ml/min [facility] Work Phone: Estimated GFR (MDRD) Amer 105 mL/min >60 [facility] Work Phone: Comment on above: GFR Calc Estimated GFR (MDRD) Non-Af Amer 87 mL/min >60 [facility] Work Phone: Comment on above: Non- GFR Calc Platelets bldon 09-09-2021 Platelets (Bld) [#/Vol] 308 10*3/uL 150-450 [facility] Work Phone: Serum or plasma calcium shantal urement (mass/volume)on 09-09-2021 Calcium [Mass/Vol] 9.0 mg/dL 8.5-10.1 [facility] Work Phone: Serum or plasma creatinine m easurement (mass/volume)on 09-09-2021 Creatinine [Mass/Vol] 0.94 mg/dL 0.70-1.30 [facility] Work Phone: Comment on above: The validity of the calculated GFR & GFRAA in patients over 70 years has not been determined. Clinical correlation is essential. Serum or plasma urea nitroge n measurement (mass/volume)on 09-09-2021 Urea nitrogen [Mass/Vol] 21 mg/dL 7-18 [facility] Work Phone: Thin prep Papanicolaou smear with manual screeningon 09-09-2021 Thin prep Papanicolaou smear with manual screening 4 5-15 [facility] Work Phone: Basophil percentageon 2021 Bilirubin [Mass/Vol] 0.60 mg/dL 0.20-1.00 [facility] Work Phone: Comment on above: For patients on eltr ombopag therapy, use of Dimension Ada TBIL is not recommended. Chloride [Moles/Vol] 105 mmol/L 98-107 [facility] Work Phone: Glucose [Mass/Vol] 112 mg/dL 74-106 [facility] Work Phone: Comment on above: Fasting Glucose resu lt from 100 to 125 mg/dL suggests IMPAIRED HOMEOSTASIS per A.D.A. criteria. Potassium [Moles/Vol] 3.9 mmol/L 3.5-5.1 [facility] Work Phone: Protein [Mass/Vol] 7.6 g/dL 6.4-8.2 [facility] Work Phone: Sodium [Moles/Vol] 136 mmol/L 136-145 [facility] Work Phone: [phone] WBC (Bld) [#/Vol] 14.9 10*3/uL 4.4-11.0 [facility] Work Phone: [phone] Blood erythrocytes count (nu mber/volume)on 06-29-2021 RBC (Bld) [#/Vol] 6.16 10*6/uL 4.6-6.2 [facility] Work Phone: [phone] Blood hemoglobin measurement (mass/volume)on 06-29-2021 Hemoglobin (Bld) [Mass/Vol] 18.1 g/dL 13.0-16. 5 [facility] Work Phone: Blood platelet mean volumeon 06-29-2021 Platelet mean volume (Bld) [Entitic vol] 9.8 fL 6.2-12.0 [facility] Work Phone: Determination of erythrocyte mean corpuscular volume (MCV)on 06-29-2021 MCV (RBC) [Entitic vol] 86.7 fL 80-94 [facility] Work Phone: [phone] Hematocrit Auto (Bld) [Volum e fraction]on 06-29-2021 Hematocrit (Bld) [Volume fraction] 53.4 % 40-54 [facility] Work Phone: [phone] Laboratory - Chemistry and C hemistry - challengeon 06-29-2021 ALP [Catalytic activity/Vol] 167 U/L 45-117 [facility] Work Phone: [phone] ALT [Catalytic activity/Vol] 23 U/L 16-61 [facility] Work Phone: [phone] CO2 [Moles/Vol] 24.0 mmol/L 21.0-32.0 [facility] Work Phone: [phone] Globulin (S) [Mass/Vol] 4.5 g/dL 2.2-4.2 [facility] Work Phone: [phone] Urea nitrogen/Creatinine [Mass ratio] 19.4 mg/mg 10-20 [facility] Work Phone: [phone] Laboratory - Hematology and Cell countson 06-29-2021 Erythrocyte distribution width (RBC) [Entitic vol] 49.0 fL 35.1-43.9 [facility] Work Phone: [phone] Erythrocyte distribution width (RBC) [Ratio] 16.0 % 11.6-14.6 [facility] Work Phone: [phone] MCH (RBC) [Entitic mass] 29.4 pg 27.0-32.0 [facility] Work Phone: [phone] MCHC Auto (RBC) [Mass/Vol]on 06-29-2021 MCHC (RBC) [Mass/Vol] 33.9 g/dL 32-36 [facility] Work Phone: Comment on above: Delta: 32.1 on 06/28-0705 No Panel Informationon 06-29 Estimated Creatinine Clearance Calc 113.43 ml/min [facility] Work Phone: Estimated GFR (MDRD) Amer 156 mL/min >60 [facility] Work Phone: Comment on above: GFR Calc Estimated GFR (MDRD) Non-Af Amer 129 mL/min >60 [facility] Work Phone: Comment on above: Non- GFR Calc Platelets bldon 06-29-2021 Platelets (Bld) [#/Vol] 283 10*3/uL 150-450 [facility] Work Phone: Review by pathologiston - Pathologist review Isrrael (Unsp spec) [Interp] Reviewed [facility] Work Phone: Comment on above: Previous reported re sult: Eleni youssef Edited by: RGOOD on 06/30/21:0932Neutrophilic leukocytosis.Clinical correlation suggested.Norris Mc D.O. 06/30/21 AMENDED REPORT 06/30/21 0932 PATH REV previously reported as: Eleni youssef Serum or plasma albumin shantal urement (mass/volume)on 06-29-2021 Albumin [Mass/Vol] 3.1 g/dL 3.2-5.0 [facility] Work Phone: Serum or plasma albumin/glob ulin mass ratioon 06-29-2021 Albumin/Globulin [Mass ratio] 0.7 {ratio} 0.9-2.4 [facility] Work Phone: Serum or plasma calcium shantal urement (mass/volume)on 06-29-2021 Calcium [Mass/Vol] 9.5 mg/dL 8.5-10.1 [facility] Work Phone: Serum or plasma creatinine m easurement (mass/volume)on 06-29-2021 Creatinine [Mass/Vol] 0.67 mg/dL 0.70-1.30 [facility] Work Phone: Comment on above: The validity of the calculated GFR & GFRAA in patients over 70 years has not been determined. Clinical correlation is essential. Serum or plasma urea nitroge n measurement (mass/volume)on 06-29-2021 Urea nitrogen [Mass/Vol] 13 mg/dL 7-18 [facility] Work Phone: Thin prep Papanicolaou smear with manual screeningon 06-29-2021 Thin prep Papanicolaou smear with manual screening 36 U/L 15-37 [facility] Work Phone: Thin prep Papanicolaou smear with manual screening 7 5-15 [facility] Work Phone: Absolute lymphocyte counton 06-28-2021 Lymphocytes Auto (Unsp spec) [#/Vol] 2.53 10*3/uL 0.83-4.51 [facility] Work Phone: Basophil percentageon 2021 Basophils/100 WBC (Bld) 0.4 % 0-1 [facility] Work Phone: Cholesterol [Mass/Vol] 142 mg/dL <200 [facility] Work Phone: Comment on above: <200 mg/dL Desirable 200-240 mg/dL Borderline >240 mg/dL High Risk Eosinophils/100 WBC (Bld) 2.1 % 0-5 [facility] Work Phone: Neutrophils (Bld) [#/Vol] 8.4 10*3/uL 2.0-7.7 [facility] Work Phone: Neutrophils/100 WBC (Bld) 69.2 % 47-70 [facility] Work Phone: Triglyceride [Mass/Vol] 141 mg/dL [facility] Work Phone: Comment on above: The drugs N-Acetylcy steine and Metamizole may falsely depress this assay.Serum Triglycerides Reference Interval Normal <150 mg/dL Borderline high 150 - 199 mg/dL High 200 - 499 mg/dL Very High > or = 500 mg/dL Blood lymphocytes/100 leukoc yteson 06-28-2021 Lymphocytes/100 WBC (Bld) 20.9 % 19-41 [facility] Work Phone: Blood monocytes/100 leukocyt eson 06-28-2021 Monocytes/100 WBC (Bld) 6.9 % 0-10 [facility] Work Phone: Laboratory - Chemistry and C hemistry - challengeon 06-28-2021 Magnesium [Mass/Vol] 2.1 mg/dL 1.6-2.6 [facility] Work Phone: Laboratory - Hematology and Cell countson 06-28-2021 Immature granulocytes/100 WBC (Bld) 0.500 % 0.0-0.9 [facility] Work Phone: Comment on above: IG% - Immature Granu locytes (promyelocytes, myelocytes and metamyelocytes) > 1% indicates that a LEFT SHIFT is Present. Nucleated RBC/100 WBC (Bld) [Ratio] 0 % 0-5 [facility] Work Phone: No Panel Informationon 06-28 Troponin I High Sensitivity 3963 pg/mL 3.0-78.0 [facility] Work Phone: Comment on above: Critical Result(s) C alled at: 08:02:18 06/28/2021 by: Yesi Mcbride to [place]. Results read back by same. Please Note: New Test Units and Gender Specific Reference Ranges. For more information see Policy Stat Procedure Ada High Sensitivity Troponin (TNIH) and attachments. Serum or plasma cholesterol in HDL measurement (mass/volume)on 06-28-2021 Cholesterol in HDL [Mass/Vol] 39 mg/dL [facility] Work Phone: Comment on above: The drugs N-Acetylcy steine and Metamizole may falsely depress this assay. Reference Range HDL <40 mg/dL Low HDL Cholesterol HDL >or= 60 mg/dL High HDL Cholesterol Serum or plasma cholesterol in VLDL measurement (mass/volume)on 06-28-2021 Cholesterol in VLDL [Mass/Vol] 28 mg/dL 5-40 [facility] Work Phone: Serum or plasma low density lipoprotein (LDL) cholesterol measurement (mass/volume)on 06-28-2021 Cholesterol in LDL [Mass/Vol] 75 mg/dL 0-130 [facility] Work Phone: Basic Metabolic Panelon 12-3 -2016 Anion gap 3 mmol/L Normal [facility] Comment on above: Performed By: #### H EMOG, LACT3, BMP3 ####[address] [place] [address] Calcium 8.5 mg/dL Normal 8.4-10.2 [facility] Comment on above: Performed By: #### H EMOG, LACT3, BMP3 ####[address] [place] [address] CO2 27 mmol/L Normal 22-30 [facility] Comment on above: Performed By: #### H EMOG, LACT3, BMP3 ####[address] [place] [address] Glucose mass conc 111 mg/dL High 70-100 [facility] Comment on above: Performed By: #### H EMOG, LACT3, BMP3 ####[address] [place] [address] Urea nitrogen 13 mg/dL Normal 7-20 [facility] Comment on above: Performed By: #### H EMOG, LACT3, BMP3 ####[address] [place] [address] Creatinine 0.71 mg/dL Normal 0.52-1.25 [facility] Comment on above: Performed By: #### H EMOG, LACT3, BMP3 ####[address] [place] [address] eGFR (black) mL/min/{1.73_m2} Normal >60 [facility] Comment on above: Performed By: #### H EMOG, LACT3, BMP3 ####[address] [place] [address] eGFR (non-black) mL/min/{1.73_m2} Normal >60 [facility] Comment on above: Result Comment: Sour ce- MDRD equation with creatinine calibration to IDMS(NKDEP)eGFR not recommended for drug dose adjustment Performed By: #### H DORIS LACT3, BMP3 ####[place] [address] Potassium molar conc 4.8 mmol/L Normal 3.5-5.1 [facility] Comment on above: Performed By: #### H DORIS LACT3, BMP3 ####[place] [address] Sodium 136 mmol/L Low 137-145 [facility] Comment on above: Performed By: #### H DORIS LACT3, BMP3 ####[place] [address] Chloride 106 mmol/L Normal 98-107 [facility] Comment on above: Performed By: #### H DORIS LACT3, BMP3 ####[place] [address] Hemogramon 05-28-2017 Erythrocyte distribution width Auto Ratio (RBC) 19.0 % High 11.5-14.5 [facility] Comment on above: Performed By: #### H DORIS LACT3, BMP3 ####[place] [address] Erythrocytes (RBC) 3.46 10*6/uL Low 4.40-5.90 [facility] Comment on above: Performed By: #### H DORIS LACT3, BMP3 ####[place] [address] Hematocrit (HCT) 28.1 % Low 40.0-52.0 [facility] Comment on above: Performed By: #### H DORIS LACT3, BMP3 ####[place] [address] Hemoglobin mass conc (Bld) 9.1 g/dL Low 13.0-18.0 [facility] Comment on above: Performed By: #### H DORIS LACT3, BMP3 ####[place] [address] MCH 26.4 pg Normal 26.0-34.0 [facility] Comment on above: Performed By: #### H EMOG, LACT3, BMP3 ####[address] [address] MCHC mass conc (RBC) 32.4 % Normal 32.0-36.0 [facility] Comment on above: Performed By: #### H EMOG, LACT3, BMP3 ####[address] [address] MCV 81.4 fL Normal 80.0-98.0 [facility] Comment on above: Performed By: #### H EMOG, LACT3, BMP3 ####[place] [address] Platelet mean volume (PMV) 6.9 fL Low 7.4-10.4 [facility] Comment on above: Performed By: #### H EMOG, LACT3, BMP3 ####[address] [address] Platelets 573 10*3/uL High 140-440 [facility] Comment on above: Performed By: #### H EMOG, LACT3, BMP3 ####[place] [address] WBC (Leukocytes) 11.2 10*3/uL High 3.6-10.7 [facility] Comment on above: Performed By: #### H EMOG, LACT3, BMP3 ####[place] [address] CR Chest Portableon 05-27-20 17 CR Chest Portable Patient Name: BAUTISTA RUFFIN Diagnostic Radiology Exam Date/Time 05/27/2017 11:05:26 EST Exam CR Chest Portable Ordering Physician DO FORBES KATHRYN C Accession Number [id number] CPT4 Codes 14901 () Reason For Exam line placement Report [...] Transcribed Date and Time: 05/27/2017 11:11 Normal [facility] Lactic Acidon 05-27-2017 Lactate 1.4 mmol/L Normal 0.7-2.0 [facility] Comment on above: Performed By: #### H EMOG, LACT3, BMP3 ####[address] [address] CR Chest Portableon 05-26-20 17 CR Chest Portable Patient Name: BAUTISTA RUFFIN Diagnostic Radiology Exam Date/Time 05/26/2017 16:21:52 EST Exam CR Chest Portable Ordering Physician DO FORBES KATHRYN C Accession Number [id number] CPT4 Codes 21864 () Reason For Exam line placement Report [...] Transcribed Date and Time: 05/26/2017 7:29 Normal [facility] US Fine Needle Aspiration w/ Image Guideon 05-25-2017 US Fine Needle Aspiration w/ Image Guide Patient Name: BAUTISTA RUFFIN Ultrasound Exam Date/Time 05/25/2017 12:15:00 EST Exam US Fine Needle Aspiration w/ Image Guide Ordering Physician MD VICKY, CHIVO Figueroa Accession Number [id number] CPT4 Codes 81205 () Reason For Exam rt hip effusion Report Reason for examination: Paraplegic patient with sepsis, 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 Ultrasound guided right hip aspiration was performed with the patient in his bed. The procedure, risks, benefits, and alternatives were explained to the patient, and informed consent was obtained. [place] protocol was followed with time out. The [...] Transcribed Date and Time: 05/25/2017 1:35 Normal [facility] Basic Metabolic Panelon 12-2 Calcium 8.0 mg/dL Low 8.4-10.2 [facility] Comment on above: Performed By: #### H EMOG, LACT3, BMP3 ####[address] [address] Anion gap 2 mmol/L Normal [facility] Comment on above: Performed By: #### H EMOG, LACT3, BMP3 ####[address] [address] CO2 30 mmol/L Normal 22-30 [facility] Comment on above: Performed By: #### H EMOG, LACT3, BMP3 ####[address] [place] [address] Creatinine 0.60 mg/dL Normal 0.52-1.25 [facility] Comment on above: Performed By: #### H EMOG, LACT3, BMP3 ####[address] [place] [address] eGFR (black) mL/min/{1.73_m2} Normal >60 [facility] Comment on above: Performed By: #### H EMOG, LACT3, BMP3 ####[address] [place] [address] eGFR (non-black) mL/min/{1.73_m2} Normal >60 [facility] Comment on above: Result Comment: Sour ce- MDRD equation with creatinine calibration to IDMS(NKDEP)eGFR not recommended for drug dose adjustment Performed By: #### H EMOG, LACT3, BMP3 ####[address] [place] [address] Glucose mass conc 98 mg/dL Normal 70-100 [facility] Comment on above: Performed By: #### H EMOG, LACT3, BMP3 ####[address] [place] [address] Urea nitrogen 6 mg/dL Low 7-20 [facility] Comment on above: Performed By: #### H EMOG, LACT3, BMP3 ####[address] [place] [address] Chloride 106 mmol/L Normal 98-107 [facility] Comment on above: Performed By: #### H EMOG, LACT3, BMP3 ####[address] [place] [address] Potassium molar conc 3.7 mmol/L Normal 3.5-5.1 [facility] Comment on above: Performed By: #### H EMOG, LACT3, BMP3 ####[address] [place] [address] Sodium 138 mmol/L Normal 137-145 [facility] Comment on above: Performed By: #### H EMOG, LACT3, BMP3 ####[address] [address] CULTUREon 05-24-2017 CULTURE Specimen Source Comment:Body Fluid [facility] Patient name: BAUTISTA RUFFINR.N.: [id number] : 1960 Age: 57 Sex: M Ord. Physician: CHIVO PERRY Location: [address] [place] [address] Copy to: CHIVO PERRY Adm. Date: 05/19/17 MICROBIOLOGYORDER#: [id number] COLLECTED: 05/24/17 14:18SOURCE: Aspirate Right (Hip) RECEIVED: [...] DOSE DEPENDENT HARMAN VALUES = ug/mL Normal [facility] Comment on above: Performed By: #### H EMOG, LACT3, BMP3 ####[place] [address] CULTURE MYCOBACTERIA Conc.on 05-24-2017 CULTURE MYCOBACTERIA Conc. Specimen Sour ce Comment:Body Fluid [facility] Patient name: BAUTISTA RUFFINN.: [id number] : 1960 Age: 57 Sex: M Ord. Physician: CHIVO PERRY Location: [address] [place] [address] Copy to: CHIVO PERRY DISCHARGED: 05/30/17Adm. Date: 05/19/17 MICROBIOLOGYORDER#: [id number] COLLECTED: 05/24/17 14:18SOURCE: Aspirate Right (Hip) RECEIVED: 05/25/17 17:51 OE C O M M E N T S Sp ecimen Source Comment:Body FluidCULTURE MYCOBACTERIA Conc. FINAL 07/07/17 17:Test performed at [facility] Microbiology Lab07/07/17No acid-fast bacilli isolated after 6 weeks incubation. Normal [facility] Comment on above: Performed By: #### H EMOG, LACT3, BMP3 ####[address] [place] [address] Ironon 05-24-2017 Saturation 7 % Low 15-50 [facility] Comment on above: Performed By: #### H EMOG, LACT3, BMP3 ####[address] [place] [address] Total Iron Binding Cap. 142 ug/dL Low 261-497 [facility] Comment on above: Performed By: #### H EMOG, LACT3, BMP3 ####[address] [place] [address] Iron, Total <10 Low 49-181 [facility] Comment on above: Performed By: #### H EMOG, LACT3, BMP3 ####[address] [place] [address] STAIN ACID-FASTon 05-24-2017 STAIN ACID-FAST Specimen Source Comment:Body Fluid [facility] Patient name: BAUTISTA RUFFIN MGageR.N.: [id number] : 1960 Age: 57 Sex: M Ord. Physician: CHIVO PERRY Location: [address] [place] [address] Copy to: CHIVO PERRY Adm. Date: 05/19/17 MICROBIOLOGYORDER#: [id number] COLLECTED: 05/24/17 14:18SOURCE: Aspirate Right (Hip) RECEIVED: 05/25/17 17:51 OE C O M M E N T S Sp ecimen Source Comment:Body FluidSTAIN ACID-FAST FINAL 05/26/17 21:No acid-fast bacilli seen in smear.-Method: Fluorescent Stain Normal [facility] Comment on above: Performed By: #### H EMOG, LACT3, BMP3 ####[address] [place] [address] Vitamin B12on 05-24-2017 Cobalamins (Vitamin B12) 538 pg/mL Normal 239-931 [facility] Comment on above: Performed By: #### H EMOG, LACT3, BMP3 ####[address] [place] [address] Basic Metabolic Panelon 04-29 Anion gap 4 mmol/L Normal [facility] Comment on above: Performed By: #### H EMOG, LACT3, BMP3 ####[address] [place] [address] Calcium 7.6 mg/dL Low 8.4-10.2 [facility] Comment on above: Performed By: #### H EMOG, LACT3, BMP3 ####[address] [place] [address] CO2 24 mmol/L Normal 22-30 [facility] Comment on above: Performed By: #### H EMOG, LACT3, BMP3 ####[address] [place] [address] Glucose mass conc 112 mg/dL High 70-100 [facility] Comment on above: Performed By: #### H EMOG, LACT3, BMP3 ####[address] [place] [address] Urea nitrogen 9 mg/dL Normal 7-20 [facility] Comment on above: Performed By: #### H EMOG, LACT3, BMP3 ####[address] [place] [address] Creatinine 0.62 mg/dL Normal 0.52-1.25 [facility] Comment on above: Performed By: #### H EMOG, LACT3, BMP3 ####[address] [place] [address] eGFR (black) mL/min/{1.73_m2} Normal >60 [facility] Comment on above: Performed By: #### H EMOG, LACT3, BMP3 ####[address] [place] [address] eGFR (non-black) mL/min/{1.73_m2} Normal >60 [facility] Comment on above: Result Comment: Sour ce- MDRD equation with creatinine calibration to IDMS(NKDEP)eGFR not recommended for drug dose adjustment Performed By: #### H EMOG, LACT3, BMP3 ####[address] [place] [address] Chloride 115 mmol/L High 98-107 [facility] Comment on above: Performed By: #### H EMOG, LACT3, BMP3 ####[address] [place] [address] Potassium molar conc 3.1 mmol/L Low 3.5-5.1 [facility] Comment on above: Performed By: #### H EMOG, LACT3, BMP3 ####[address] [place] [address] Sodium 143 mmol/L Normal 137-145 [facility] Comment on above: Performed By: #### H EMOG, LACT3, BMP3 ####[address] [address] [address] Pelvis w/ Contrast (IV On ly)on 05-23-2017 CT Pelvis w/ Contrast (IV Only) Patient Name: BAUTISTA RUFFIN CT Exam Date/Time 05/23/2017 14:28:[address] Pelvis w/ Contrast (IV Only) Ordering Physician TRINA MAYER Accession Number [id number] CPT4 Codes Q9967 (), 40035 (CT Pelvis w/ Contrast (IV Only)) Reason [...] Final Dictated: 05/23/2017 3:48 pm Dictating Physician: SAARH OTERO Signed Date and Time: 05/23/2017 4:03 pm Signed by: SARAH OTERO Transcribed Date and Time: 05/23/2017 3:48 Normal [facility] Hemogramon 05-23-2017 Erythrocyte distribution width Auto Ratio (RBC) 18.5 % High 11.5-14.5 [facility] Comment on above: Performed By: #### H EMOG, LACT3, BMP3 ####[address] [address] Erythrocytes (RBC) 3.28 10*6/uL Low 4.40-5.90 [facility] Comment on above: Performed By: #### H EMOG, LACT3, BMP3 ####[address] [address] Hematocrit (HCT) 27.1 % Low 40.0-52.0 [facility] Comment on above: Performed By: #### H EMOG, LACT3, BMP3 ####[place] [address] Hemoglobin mass conc (Bld) 8.8 g/dL Low 13.0-18.0 [facility] Comment on above: Performed By: #### H EMOG, LACT3, BMP3 ####[place] [address] MCH 26.8 pg Normal 26.0-34.0 [facility] Comment on above: Performed By: #### H EMOG, LACT3, BMP3 ####[place] [address] MCHC mass conc (RBC) 32.5 % Normal 32.0-36.0 [facility] Comment on above: Performed By: #### H EMOG, LACT3, BMP3 ####[place] [address] MCV 82.6 fL Normal 80.0-98.0 [facility] Comment on above: Performed By: #### H EMOG, LACT3, BMP3 ####[place] [address] Platelet mean volume (PMV) 6.9 fL Low 7.4-10.4 [facility] Comment on above: Performed By: #### H EMOG, LACT3, BMP3 ####[place] [address] Platelets 829 10*3/uL High 140-440 [facility] Comment on above: Performed By: #### H EMOG, LACT3, BMP3 ####[place] [address] WBC (Leukocytes) 14.6 10*3/uL High 3.6-10.7 [facility] Comment on above: Performed By: #### H EMOG, LACT3, BMP3 ####[place] [address] Basic Metabolic Panelon 12-2 Calcium 7.9 mg/dL Low 8.4-10.2 [facility] Comment on above: Performed By: #### DAWIT ALEXANDRA3 ####[address] [place] [address] Glucose mass conc 163 mg/dL High 70-100 [facility] Comment on above: Performed By: #### Xander GEORGE BMP3 ####[address] [place] [address] Urea nitrogen 8 mg/dL Normal 7-20 [facility] Comment on above: Performed By: #### DAWIT ALEXANDRA3 ####[address] [place] [address] Anion gap 6 mmol/L Normal [facility] Comment on above: Performed By: #### Xander GEORGE BMP3 ####[address] [place] [address] CO2 22 mmol/L Normal 22-30 [facility] Comment on above: Performed By: #### DAWIT ALEXANDRA3 ####[address] [place] [address] Creatinine 0.69 mg/dL Normal 0.52-1.25 [facility] Comment on above: Performed By: #### DAWIT ALEXANDRA3 ####[address] [place] [address] eGFR (black) mL/min/{1.73_m2} Normal >60 [facility] Comment on above: Performed By: #### DAWIT ALEXANDRA3 ####[address] [place] [address] eGFR (non-black) mL/min/{1.73_m2} Normal >60 [facility] Comment on above: Result Comment: Sour ce- MDRD equation with creatinine calibration to IDMS(NKDEP)eGFR not recommended for drug dose adjustment Performed By: #### Xander GEORGE BMP3 ####[address] [place] [address] Potassium molar conc 3.3 mmol/L Low 3.5-5.1 [facility] Comment on above: Performed By: #### DAWIT ALEXANDRA3 ####[address] [place] [address] Chloride 118 mmol/L High 98-107 [facility] Comment on above: Performed By: #### H EMOG, BMP3 ####[address] [place] [address] Sodium 145 mmol/L Normal 137-145 [facility] Comment on above: Performed By: #### H EMOG, BMP3 ####[address] [place] [address] C-Reactive Proteinon 017 C reactive protein (CRP) 51.9 mg/L High 0.0-6.0 [facility] Comment on above: Result Comment: . Performed By: #### H EMOG, LACT3, BMP3 ####[address] [place] [address] CR Hip w/ Pelvis 2 or 3 View s Lefton 05-22-2017 CR Hip w/ Pelvis 2 or 3 Views Left Patient Name: BAUTISTA RUFFIN Diagnostic Radiology Exam Date/Time 05/22/2017 19:52:21 EST Exam CR Hip w/ Pelvis 2 or 3 Views Left n Ordering Physician MD LEDESMA ADAM Accession Number [id number] CPT4 Codes 65301 () Reason For Exam pain Report LEFT [...] Transcribed Date and Time: 05/22/2017 7:32 Normal [facility] Hemogramon 05-22-2017 Erythrocyte distribution width Auto Ratio (RBC) 18.1 % High 11.5-14.5 [facility] Comment on above: Performed By: #### H DORIS BMP3 ####[address] [place] [address] Erythrocytes (RBC) 3.53 10*6/uL Low 4.40-5.90 [facility] Comment on above: Performed By: #### H DORIS BMP3 ####[address] [place] [address] Hematocrit (HCT) 29.1 % Low 40.0-52.0 [facility] Comment on above: Performed By: #### H DORIS BMP3 ####[address] [place] [address] Hemoglobin mass conc (Bld) 9.6 g/dL Low 13.0-18.0 [facility] Comment on above: Performed By: #### H DORIS, BMP3 ####[address] [place] [address] MCH 27.2 pg Normal 26.0-34.0 [facility] Comment on above: Performed By: #### H EMOG, BMP3 ####[address] [place] [address] MCHC mass conc (RBC) 32.9 % Normal 32.0-36.0 [facility] Comment on above: Performed By: #### H EMOG, BMP3 ####[address] [place] [address] MCV 82.5 fL Normal 80.0-98.0 [facility] Comment on above: Performed By: #### H EMOBentley, BMP3 ####[address] [place] [address] Platelet mean volume (PMV) 7.1 fL Low 7.4-10.4 [facility] Comment on above: Performed By: #### H DORIS BMP3 ####[address] [place] [address] Platelets 823 10*3/uL High 140-440 [facility] Comment on above: Result Comment: repe ated Performed By: #### H DORIS BMP3 ####[address] [place] [address] WBC (Leukocytes) 16.9 10*3/uL High 3.6-10.7 [facility] Comment on above: Performed By: #### Xadner GEORGE BMP3 ####[address] [place] [address] Sed Rateon 05-22-2017 Sed Rate 64 mm/h High 0-10 [facility] Comment on above: Performed By: #### Xander GEORGE LACT3, BMP3 ####[address] [place] [address] Basic Metabolic Panelon 04-29 Calcium 7.6 mg/dL Low 8.4-10.2 [facility] Comment on above: Performed By: #### ARINA WINN HEMOG ####[address] [place] [address] Glucose mass conc 140 mg/dL High 70-100 [facility] Comment on above: Performed By: #### ARINA WINN HEMOG ####[address] [place] [address] Urea nitrogen 6 mg/dL Low 7-20 [facility] Comment on above: Performed By: #### ARINA WINN HEMOG ####[address] [place] [address] Anion gap 6 mmol/L Normal [facility] Comment on above: Performed By: #### ARINA WINN HEMOG ####[address] [place] [address] CO2 20 mmol/L Low 22-30 [facility] Comment on above: Performed By: #### ARINA WINN, HEMOG ####[address] [place] [address] Creatinine 0.70 mg/dL Normal 0.52-1.25 [facility] Comment on above: Performed By: #### ARINA WINN, HEMOG ####[address] [place] [address] eGFR (black) mL/min/{1.73_m2} Normal >60 [facility] Comment on above: Performed By: #### ARINA WINN HEMOG ####[address] [place] [address] eGFR (non-black) mL/min/{1.73_m2} Normal >60 [facility] Comment on above: Result Comment: Sour ce- MDRD equation with creatinine calibration to IDMS(NKDEP)eGFR not recommended for drug dose adjustment Performed By: #### ARINA WINN HEMOG ####[address] [place] [address] Potassium molar conc 3.5 mmol/L Normal 3.5-5.1 [facility] Comment on above: Performed By: #### ARINA WINN HEMOG ####[address] [place] [address] Chloride 110 mmol/L High 98-107 [facility] Comment on above: Performed By: #### ARINA WINN HEMOG ####[address] [place] [address] Sodium 137 mmol/L Normal 137-145 [facility] Comment on above: Performed By: #### ARINA WINN HEMOG ####[address] [place] [address] CULTURE BLOODon 05-21-2017 CULTURE BLOOD Specimen Source Comment:Blood [facility] Patient name: BAUTISTA RUFFIN Jesse.N.: [id number] : 1960 Age: 57 Sex: M Ord. Physician: TRINA MAYER Location: [facility] Copy to: TRINA MAYER Adm. Date: 05/19/17 MICROBIOLOGYORDER#: [id number] COLLECTED: 05/21/17 16:15SOURCE: Blood (Right -wrist) RECEIVED: 05/21/17 16:50 BUSTER [place] S Sp ecimen Source Comment:BloodCULTURE BLOOD FINAL 05/26/17 17:No growth at 5 days. Normal [facility] Comment on above: Performed By: #### C /CANDE ####[address] [address] CULTURE BLOOD Specimen Source Comment:Blood [facility] Patient name: BAUTISTA RUFFIN JigneshRGageN.: [id number] : 1960 Age: 57 Sex: M Ord. Physician: MORENOTRINA Location: [address] [place] [address] Copy to: TRINA MAYER Adm. Date: 05/19/17 MICROBIOLOGYORDER#: [id number] COLLECTED: 05/21/17 15:00SOURCE: Blood (Left -antecub) RECEIVED: 05/21/17 15:36 BUSTER [place] S Sp ecimen Source Comment:BloodCULTURE BLOOD FINAL 05/26/17 17:No growth at 5 days. Normal [facility] Comment on above: Performed By: #### C /CHUCHOD ####[address] [address] Hemogramon 05-21-2017 Erythrocyte distribution width Auto Ratio (RBC) 18.6 % High 11.5-14.5 [facility] Comment on above: Performed By: #### ARINA WINN, HEMOG ####[address] [place] [address] Erythrocytes (RBC) 3.22 10*6/uL Low 4.40-5.90 [facility] Comment on above: Performed By: #### ARINA WINN, HEMOG ####[address] [place] [address] Hematocrit (HCT) 26.3 % Low 40.0-52.0 [facility] Comment on above: Performed By: #### ARINA WINN, HEMOG ####[address] [place] [address] Hemoglobin mass conc (Bld) 8.6 g/dL Low 13.0-18.0 [facility] Comment on above: Performed By: #### ARINA WINN, HEMOG ####[address] [place] [address] MCH 26.8 pg Normal 26.0-34.0 [facility] Comment on above: Performed By: #### ARINA WINN, HEMOG ####[address] [place] [address] MCHC mass conc (RBC) 32.9 % Normal 32.0-36.0 [facility] Comment on above: Performed By: #### ARINA WINN, HEMOG ####[address] [place] [address] MCV 81.6 fL Normal 80.0-98.0 [facility] Comment on above: Performed By: #### ARINA WINN, HEMOG ####[address] [place] [address] Platelet mean volume (PMV) 7.0 fL Low 7.4-10.4 [facility] Comment on above: Performed By: #### ARINA WINN, HEMOG ####[address] [place] [address] Platelets 736 10*3/uL High 140-440 [facility] Comment on above: Performed By: #### Chris PIEDRAARINA Neil, HEMOG ####[address] [place] [address] WBC (Leukocytes) 11.1 10*3/uL High 3.6-10.7 [facility] Comment on above: Performed By: #### B ARINA ZHANG, HEMOG ####[address] [place] [address] Vancomycin Troughon 05-21-20 17 Vancomycin Trough 25.8 ug/mL High 5.0-10.0 [facility] Comment on above: Result Comment: . Performed By: #### B ARINA ZHANG, HEMOG ####[address] [place] [address] Basic Metabolic Panelon 04-29 Calcium 8.2 mg/dL Low 8.4-10.2 [facility] Comment on above: Performed By: #### H EMOG, LACT3, BMP3 ####[address] [place] [address] Glucose mass conc 92 mg/dL Normal 70-100 [facility] Comment on above: Performed By: #### H EMOG, LACT3, BMP3 ####[address] [place] [address] Urea nitrogen 8 mg/dL Normal 7-20 [facility] Comment on above: Performed By: #### H EMOG, LACT3, BMP3 ####[address] [place] [address] Anion gap 7 mmol/L Normal [facility] Comment on above: Performed By: #### H EMOG, LACT3, BMP3 ####[address] [place] [address] CO2 19 mmol/L Low 22-30 [facility] Comment on above: Performed By: #### H EMOG, LACT3, BMP3 ####[address] [place] [address] Creatinine 0.78 mg/dL Normal 0.52-1.25 [facility] Comment on above: Performed By: #### H EMOG, LACT3, BMP3 ####[address] [place] [address] eGFR (black) mL/min/{1.73_m2} Normal >60 [facility] Comment on above: Performed By: #### H EMOG, LACT3, BMP3 ####[address] [place] [address] eGFR (non-black) mL/min/{1.73_m2} Normal >60 [facility] Comment on above: Result Comment: Sour ce- MDRD equation with creatinine calibration to IDMS(NKDEP)eGFR not recommended for drug dose adjustment Performed By: #### H EMOG, LACT3, BMP3 ####[address] [place] [address] Potassium molar conc 3.6 mmol/L Normal 3.5-5.1 [facility] Comment on above: Performed By: #### H EMOG, LACT3, BMP3 ####[address] [place] [address] Chloride 113 mmol/L High 98-107 [facility] Comment on above: Performed By: #### H EMOG, LACT3, BMP3 ####[address] [place] [address] Sodium 139 mmol/L Normal 137-145 [facility] Comment on above: Performed By: #### H EMOG, LACT3, BMP3 ####[address] [place] [address] Hemogramon 05-20-2017 Erythrocyte distribution width Auto Ratio (RBC) 18.7 % High 11.5-14.5 [facility] Comment on above: Performed By: #### H EMOG, LACT3, BMP3 ####[address] [place] [address] Erythrocytes (RBC) 3.38 10*6/uL Low 4.40-5.90 [facility] Comment on above: Performed By: #### H EMOG, LACT3, BMP3 ####[address] [place] [address] Hematocrit (HCT) 27.7 % Low 40.0-52.0 [facility] Comment on above: Performed By: #### H EMOG, LACT3, BMP3 ####[address] [address] Hemoglobin mass conc (Bld) 9.2 g/dL Low 13.0-18.0 [facility] Comment on above: Performed By: #### H EMOG, LACT3, BMP3 ####[address] [address] MCH 27.3 pg Normal 26.0-34.0 [facility] Comment on above: Performed By: #### H EMOG, LACT3, BMP3 ####[address] [address] MCHC mass conc (RBC) 33.3 % Normal 32.0-36.0 [facility] Comment on above: Performed By: #### H EMOG, LACT3, BMP3 ####[place] [address] MCV 82.1 fL Normal 80.0-98.0 [facility] Comment on above: Performed By: #### H EMOG, LACT3, BMP3 ####[place] [address] Platelet mean volume (PMV) 7.0 fL Low 7.4-10.4 [facility] Comment on above: Performed By: #### H EMOG, LACT3, BMP3 ####[address] [address] Platelets 749 10*3/uL High 140-440 [facility] Comment on above: Performed By: #### H EMOG, LACT3, BMP3 ####[address] [address] WBC (Leukocytes) 15.6 10*3/uL High 3.6-10.7 [facility] Comment on above: Performed By: #### H EMOG, LACT3, BMP3 ####[address] [address] Lactic Acidon 05-20-2017 Lactate 0.6 mmol/L Low 0.7-2.0 [facility] Comment on above: Performed By: #### H EMOG, LACT3, BMP3 ####[address] [place] [address] VANC TROUGHon 04-08-2017 VANC TROUGH 14.4 MCG/ML Low 15.0-20.0 [facility] Comment on above: Performed By: #### L 520.62099 ####[facility] [id number] [place], [place] [address]Hp# [phone] BMPon 04-03-2017 Anion gap 9 mmol/L Normal 5-16 [facility] Comment on above: Performed By: #### L 500.62642, L500.34211, L520.89382 ####[facility] [id number] [place], [place] [address]Hs# [phone] BUN/Creatinine Ratio 23 mg/mg Normal 15-24 [facility] Comment on above: Performed By: #### L 500.49739, L500.58611, L520.16116 ####[facility] [id number] [place], [place] [address]Mt# [phone] Calcium 8.6 mg/dL Normal 8.5-10.1 [facility] Comment on above: Performed By: #### L 500.52908, L500.06526, L520.13037 ####[facility] [id number] [place], [place] [address]Iy# [phone] Chloride 103 mmol/L Normal 98-107 [facility] Comment on above: Performed By: #### L 500.94666, L500.98451, L520.37686 ####[facility] [id number] [place], [place] [address]Td# [phone] CO2 26 mmol/L Normal 21-32 [facility] Comment on above: Performed By: #### L 500.70049, L500.07818, L520.70456 ####[facility] [id number] [place], [place] [address]Ci# [phone] Creatinine 1.370 mg/dL High 0.670-1.[address] [facility] Comment on above: Result Comment: Noni ents receiving either N-Acetylcysteine (NAC) orMetamizole prior to venipuncture, may have falsely depressedresults. Performed By: #### L 500.76014, L500.15163, L520.98784 ####[facility] [id number] [place], [place] [address]Oz# [phone] Glucose mass conc 95 mg/dL Normal 70-100 [facility] Comment on above: Result Comment: 70-1 00-Normal Fasting; [phone]-Ggpgnocj Fasting; greaterthan 126 on more than one result-Diabetes. ADA guidelines Performed By: #### L 500.57404, L500.21390, L520.12434 ####[facility] [id number] [place], [place] [address]Bk# [phone] Potassium molar conc 4.5 mmol/L Normal 3.5-5.1 [facility] Comment on above: Performed By: #### L 500.94497, L500.81425, L520.11893 ####[facility] [id number] [place], [place] [address]Mw# [phone] Sodium 138 mmol/L Normal 136-145 [facility] Comment on above: Performed By: #### L 500.44659, L500.48656, L520.00514 ####[facility] [id number] [place], [place] [address]Dj# [phone] Urea nitrogen 31 mg/dL High 7-26 [facility] Comment on above: Performed By: #### L 500.07051, L500.11560, L520.39997 ####[facility] [id number] [place], [place] [address]As# [phone] GFR ESTon 04-03-2017 IF AMER Greater than 60 Normal [facility] Comment on above: Performed By: #### L 500.71681, L500.88721, L520.75535 ####[facility] [id number] [place], [place] [address]Xi# [phone] IF non-AFR AMER 54 ML/MIN Normal [facility] Comment on above: Performed By: #### L 500.14251, L500.12806, L520.30430 ####[facility] [id number] [place], [place] [address]Mu# [phone] on 04-03-2017 Hematocrit (HCT) 32.7 % Low 41.0-53.0 [facility] Comment on above: Performed By: #### L 200.83766 ####[facility] [id number] [place] [address]Tq# [phone] Hemoglobin mass conc (Bld) 10.3 g/dL Low 13.5-17.5 [facility] Comment on above: Performed By: #### L 200.19277 ####[facility] [id number] [place] [address]Qr# [phone] VANC TROUGHon 04-03-2017 VANC TROUGH 14.7 MCG/ML Low 15.0-20.0 [facility] Comment on above: Performed By: #### L 500.91746, L500.68837, L520.27776 ####[facility] [id number] [place], [place] [id number]# [phone] on 03-29-2017 Hematocrit (HCT) 30.1 % Low 41.0-53.0 [facility] Comment on above: Performed By: #### L [id number] ####[facility] [id number] [place] [address]Ln# [phone] Hemoglobin mass conc (Bld) 9.4 g/dL Low 13.5-17.5 [facility] Comment on above: Performed By: #### L [id number] ####[facility] [id number] [place] [id number]# [phone] VANC TROUGHon 03-28-2017 VANC TROUGH 20.7 MCG/ML Critically high 15.0-20.0 [facility] Comment on above: Result Comment: Crit ical Result(s) Called at: 22:55:07 on 03/27/2017 by:Vanessa Bianchi to and read back by: Jami LR AT [facility] Performed By: #### L [id number] ####[facility] [id number] [place], [place] [address]Dt# [phone] VANC TROUGHon 03-23-2017 VANC TROUGH 25.3 MCG/ML Critically high 15.0-20.0 [facility] Comment on above: Result Comment: Crit ical Result(s) Called at: 12:22:05 on 03/23/2017 by:Piedad Thomas to and read back by: BLANCHE HILLMAN RN Performed By: #### L [id number] ####[facility] [id number] [place], [place] [address]Tq# [phone] Influenza virus A and B and SARS-CoV-2 (COVID-19) Ag panel - Upper respiratory specim SARS-CoV-2 (COVID-19) RNA ZEKE+probe Ql (Resp) [facility] Work Phone: Vital Signs Date Time Vital Sign Value Performing Clinician Samir walker 11-01-2024 18:00-0400 Diastolic blood pressure 84 mm[Hg] [facility] 11-01-2024 18:00-0400 Heart rate 82 /min [facility] 11-01-2024 18:00-0400 Respiratory rate 16 /min [facility] 11-01-2024 18:00-0400 SaO2% (BldA) [Mass fraction] 96 % [facility] 11-01-2024 18:00-0400 Systolic blood pressure 132 mm[Hg] [facility] 11-01-2024 16:30-0400 Body temperature 98.3 [degF] [facility] 11-01-2024 14:11-0400 Body height 172.72 cm [facility] 11-01-2024 14:11-0400 Body mass index (BMI) [Ratio] 27.6 kg/m2 [facility] 11-01-2024 14:11-0400 Body weight 82.3 kg [facility] 09-12-2024 13:04-0400 Body temperature 97.8 [degF] [facility] 09-12-2024 13:04-0400 Diastolic blood pressure 85 mm[Hg] [facility] 09-12-2024 13:04-0400 Heart rate 75 /min [facility] 09-12-2024 13:04-0400 Respiratory rate 16 /min [facility] 09-12-2024 13:04-0400 SaO2% (BldA) [Mass fraction] 97 % [facility] 09-12-2024 13:04-0400 Systolic blood pressure 149 mm[Hg] [facility] 09-11-2024 15:37-0400 Body height 175.01 cm [facility] 09-11-2024 15:37-0400 Body mass index (BMI) [Ratio] 27.8 kg/m2 [facility] 09-11-2024 15:37-0400 Body weight 85.41 kg [facility] 07-14-2024 12:00-0500 Body temperature 97.6 [degF] [facility] 07-14-2024 12:00-0500 Diastolic blood pressure 86 mm[Hg] [facility] 07-14-2024 12:00-0500 Heart rate 82 /min [facility] 07-14-2024 12:00-0500 Respiratory rate 17 /min [facility] 07-14-2024 12:00-0500 SaO2% (BldA) [Mass fraction] 94 % [facility] 07-14-2024 12:00-0500 Systolic blood pressure 139 mm[Hg] [facility] 07-14-2024 07:06-0500 Body mass index (BMI) [Ratio] 28.3 kg/m2 [facility] 07-14-2024 07:06-0500 Body weight 87.2 kg [facility] 07-13-2024 07:00-0500 Diastolic blood pressure 101 mm[Hg] [facility] 07-13-2024 07:00-0500 Heart rate 83 /min [facility] 07-13-2024 07:00-0500 Respiratory rate 18 /min [facility] 07-13-2024 07:00-0500 SaO2% (BldA) [Mass fraction] 99 % [facility] 07-13-2024 07:00-0500 Systolic blood pressure 176 mm[Hg] [facility] 07-13-2024 06:40-0500 Body temperature 97.8 [degF] [facility] 07-13-2024 02:28-0500 Body mass index (BMI) [Ratio] 26.6 kg/m2 [facility] 07-13-2024 02:28-0500 Body weight 81.8 kg [facility] 06-19-2024 15:07-0500 Body temperature 98.3 [degF] [facility] 06-19-2024 15:07-0500 Diastolic blood pressure 92 mm[Hg] [facility] 06-19-2024 15:07-0500 Heart rate 88 /min [facility] 06-19-2024 15:07-0500 Respiratory rate 18 /min [facility] 06-19-2024 15:07-0500 SaO2% (BldA) [Mass fraction] 98 % [facility] 06-19-2024 15:07-0500 Systolic blood pressure 138 mm[Hg] [facility] 06-19-2024 05:37-0500 Body mass index (BMI) [Ratio] 25.4 kg/m2 [facility] 06-19-2024 05:37-0500 Body weight 78.1 kg [facility] 06-14-2024 21:55-0500 Body temperature 98.1 [degF] [facility] 06-14-2024 21:55-0500 Diastolic blood pressure 76 mm[Hg] [facility] 06-14-2024 21:55-0500 Heart rate 90 /min [facility] 06-14-2024 21:55-0500 Respiratory rate 16 /min [facility] 06-14-2024 21:55-0500 SaO2% (BldA) [Mass fraction] 98 % [facility] 06-14-2024 21:55-0500 Systolic blood pressure 155 mm[Hg] [facility] 06-12-2024 14:34-0500 Body weight 95.5 kg [facility] 06-11-2024 23:14-0500 Body mass index (BMI) [Ratio] 31.1 kg/m2 [facility] 10-09-2023 05:00-0400 Body temperature 97.5 [degF] [facility] 10-09-2023 05:00-0400 Diastolic blood pressure 91 mm[Hg] [facility] 10-09-2023 05:00-0400 Heart rate 95 /min [facility] 10-09-2023 05:00-0400 Respiratory rate 16 /min [facility] 10-09-2023 05:00-0400 SaO2% (BldA) [Mass fraction] 97 % [facility] 10-09-2023 05:00-0400 Systolic blood pressure 128 mm[Hg] [facility] 10-09-2023 01:12-0400 Body height 175.26 cm [facility] 06-07-2022 00:00-0500 Diastolic blood pressure 78 mm[Hg] [facility] Work Phone: 06-07-2022 00:00-0500 Heart rate 81 /min [facility] Work Phone: 06-07-2022 00:00-0500 Respiratory rate 14 /min [facility] Work Phone: 06-07-2022 00:00-0500 SaO2% (BldA) [Mass fraction] 97 % [facility] Work Phone: 06-07-2022 00:00-0500 Systolic blood pressure 119 mm[Hg] [facility] Work Phone: 06-06-2022 16:16-0500 Body height 170.18 cm [facility] Work Phone: 06-06-2022 16:16-0500 Body mass index (BMI) [Ratio] 26.6 kg/m2 [facility] Work Phone: 06-06-2022 16:16-0500 Body temperature 97.5 [degF] [facility] Work Phone: 06-06-2022 16:16-0500 Body weight 77.3 kg [facility] Work Phone: 05-22-2022 21:09-0500 Diastolic blood pressure 93 mm[Hg] [facility] Work Phone: 05-22-2022 21:09-0500 Heart rate 121 /min [facility] Work Phone: 05-22-2022 21:09-0500 Respiratory rate 30 /min [facility] Work Phone: 05-22-2022 21:09-0500 SaO2% (BldA) [Mass fraction] 96 % [facility] Work Phone: 05-22-2022 21:09-0500 Systolic blood pressure 143 mm[Hg] [facility] Work Phone: 05-22-2022 20:08-0500 Body temperature 97.6 [degF] [facility] Work Phone: 05-22-2022 16:40-0500 Body height 175.26 cm [facility] Work Phone: 05-22-2022 16:40-0500 Body mass index (BMI) [Ratio] 26.2 kg/m2 [facility] Work Phone: 05-22-2022 16:40-0500 Body weight 80.5 kg [facility] Work Phone: 09-09-2021 17:43-0400 Diastolic blood pressure 100 mm[Hg] [facility] Work Phone: 09-09-2021 17:43-0400 Heart rate 70 /min [facility] Work Phone: 09-09-2021 17:43-0400 Respiratory rate 16 /min [facility] Work Phone: 09-09-2021 17:43-0400 SaO2% (BldA) [Mass fraction] 97 % [facility] Work Phone: 09-09-2021 17:43-0400 Systolic blood pressure 122 mm[Hg] [facility] Work Phone: 09-09-2021 15:23-0400 Body temperature 97.6 [degF] [facility] Work Phone: 09-09-2021 15:20-0400 Body height 172.72 cm [facility] Work Phone: 09-09-2021 15:20-0400 Body mass index (BMI) [Ratio] 26.6 kg/m2 [facility] Work Phone: 09-09-2021 15:20-0400 Body weight 79.6 kg [facility] Work Phone: 06-29-2021 10:00-0500 Heart rate 112 /min [facility] Work Phone: 06-29-2021 08:38-0500 Body temperature 98 [degF] [facility] Work Phone: 06-29-2021 08:38-0500 Diastolic blood pressure 93 mm[Hg] [facility] Work Phone: 06-29-2021 08:38-0500 Respiratory rate 16 /min [facility] Work Phone: 06-29-2021 08:38-0500 SaO2% (BldA) [Mass fraction] 98 % [facility] Work Phone: 06-29-2021 08:38-0500 Systolic blood pressure 122 mm[Hg] [facility] Work Phone: 06-29-2021 05:00-0500 Body weight 74 kg [facility] Work Phone: 06-28-2021 02:52-0500 Body mass index (BMI) [Ratio] 23.9 kg/m2 [facility] Work Phone: Encounters Encounter Date Encounter Type Care Provider Facility Start: 11-03-2024 Emergency department patient visit [facility] Facility:[facility] Start: 11-01-2024 End: 11-01-2024 [facility] Start: 09-11-2024 End: 09-12-2024 [facility] Start: 07-14-2024 End: 07-14-2024 Emergency department patient visit Dr. Rico Moore DO -Emergency Department Work Phone: Start: 07-13-2024 End: 07-13-2024 Emergency department patient visit Richie Borden DO -Emergency Department Work Phone: Start: 06-19-2024 Non-patient / Non-visit Dr. Darian Arceo MD -[facility] Work Phone: Start: 06-18-2024 Non-patient / Non-visit Dr. Darian Arceo MD -[facility] Work Phone: Start: 06-17-2024 Non-patient / Non-visit Dr. Darian Arceo MD -[facility] Work Phone: Start: 06-16-2024 ambulatory [facility] Start: 06-16-2024 End: 06-19-2024 Evaluation and management of inpatient Dr. Darian Arceo MD -[facility] Work Phone: Start: 06-14-2024 Non-patient / Non-visit Dr. Darian Arceo MD -[facility] Work Phone: Start: 06-13-2024 Non-patient / Non-visit Dr. Darian Arceo MD -[facility] Work Phone: Start: 06-12-2024 Non-patient / Non-visit Dr. Darian Arceo MD -[facility] Work Phone: Start: 06-11-2024 ambulatory [facility] Start: 06-11-2024 End: 06-14-2024 Evaluation and management of inpatient Dr. Darian Arceo MD -[facility] Work Phone: Start: 05-06-2024 End: 05-10-2024 Telephone encounter Hetal Gallegos MD Work Phone: [facility] Start: 05-03-2024 Emergency department patient visit JAMEY HUYNH Facility:[facility] Start: 05-03-2024 End: 05-03-2024 Emergency department patient visit [facility] Facility:[facility] Start: 10-09-2023 End: 10-09-2023 Emergency department patient visit [facility] Work Phone: Start: 06-06-2022 End: 06-07-2022 Emergency department patient visit [facility] Start: 05-22-2022 End: 05-22-2022 Emergency department patient visit [facility] Start: 09-09-2021 End: 09-09-2021 Emergency department patient visit [facility]Emergency [facility] Start: 06-29-2021 Non-patient / Non-visit [facility] Start: 06-29-2021 Non-patient / Non-visit [facility] Start: 06-28-2021 Non-patient / Non-visit [facility] Start: 06-28-2021 End: 06-29-2021 Evaluation and management of inpatient [facility]-Pro[facility] Care Unit Start: 05-19-2017 Evaluation and management of inpatient UNKNOWN PROVIDER [facility] Start: 04-08-2017 Ambulatory [facility] Start: 04-03-[address] [facility] Facility:[facility] Start: 03-29-2017 [facility] Start: 03-27-2017 [facility] Start: 03-23-2017 [facility] Procedures Date Procedure Procedure Detail Performing Clinician Start: 11-01-2024 Urnls dip stick/tabl et reagent auto microscopy [facility] Start: 09-11-2024 Urnls dip stick/tabl et reagent auto microscopy [facility] Start: 09-11-2024 CT of pelvis with contrast [facility] Start: 09-11-2024 Estimated creatinine clearance [facility] Start: 09-11-2024 Blood culture [facility] Start: 09-11-2024 Gram stain microscopy [facility] Start: 09-11-2024 End: 09-11-2024 Microbial culture, routine [facility] Start: [facility]11[facility] Start: 07-14-2024 Urnls dip stick/tabl et reagent auto microscopy [facility] Start: 07-14-2024 Estimated creatinine clearance [facility] Start: 07-14-2024 Measurement of renal function [facility] Comment on above: GFR Calc Start: 07-14-2024 [facility] Start: 07-13-2024 SARS-CoV-2, Influenz a & RSV (PCR) [facility] Start: 07-13-2024 CT angiography of ch est with contrast [facility] Start: 07-13-2024 Plain chest X-ray [facility] Start: 07-13-2024 D-dimer assay, quantitative [facility] Comment on above: D-Dimer ELEVATED (>0 .49): Additional studies and clinicalassessments are indicated to conclude diagnosis of:Deep Vein Thrombosis (DVT) or Pulmonary Embolism (PE)CRITICAL VALUE CALLED TO [facility]07/13/24 0417 Graham Osorio.RESULTS READ BACK BY SAME. Start: 07-13-2024 Estimated creatinine clearance [facility] Start: 07-13-2024 Measurement of renal function [facility] Comment on above: GFR Calc Start: 06-16-2024 [facility] Start: 06-16-2024 CT of head without contrast [facility] Start: 06-16-2024 Blood culture [facility] Start: 06-16-2024 Urine culture [facility] Start: 06-11-2024 CT of chest without contrast [facility] Start: 06-11-2024 Plain chest X-ray [facility] Start: 06-11-2024 Plain x-ray of pelvi s and lower extremity [facility] Start: 06-11-[facility]24 [facility] Start: 06-11-2024 Legionella pneumophi la antigen assay [facility] Start: 06-11-2024 SARS-CoV-2, Influenz a & RSV (PCR) [facility] Start: 06-11-2024 Streptococcus pneumo niae antigen assay [facility] Start: 06-11-2024 Urine culture [facility] Start: 10-09-2023 Plain chest X-ray Start: 06-06-2022 Plain chest X-ray Start: 05-22-2022 CT of abdomen and pe lvis without contrast Start: 05-22-2022 Plain chest X-ray Start: 06-28-2021 History of placement of stent for coronary artery disease History of coronary artery stent placement Dr. Darian Arceo MD Comment on above: [id number]-[id number] LAD w/ 3.[address] [facility] MR Stent 06/28/21 Start: 06-28-2021 Plain chest X-ray [facility] H/O: colostomy Colostomy in place [facility] SARS-CoV-2 & FLU Ant igen (Rapid) Plan of Treatment Date Care Activity Detail Author Start: 05-03-2027 Diabetes Screening Diabetes Screenin g [facility] Start: 11-01-2024 [facility] Start: 11-01-2024 [facility] Start: 11-01-2024 Bacteria identified in Urine by Culture Urine Culture [facility] Start: 09-11-2024 End: 09-11-2024 [facility] Start: 09-11-2024 Bacteria identified in Blood by Culture Blood Culture [facility] Start: 09-11-2024 Microbial culture, routine Wound Culture [facility] Start: 09-11-2024 Microscopic observat ion [Identifier] in Unspecified specimen by Gram stain [facility] Start: 09-11-2024 Urine culture Urine Culture [facility] Start: 07-14-2024 [facility] Start: 07-13-2024 [facility] Start: 06-19-2024 Patient discharge [facility] Start: 06-18-2024 Referral to service [facility] Start: 06-18-2024 Wound care [facility] Start: 06-17-2024 Consultation for treatment [facility] Start: 06-16-2024 Following clinical pathway protocol [facility] Start: 06-16-2024 Assessment of risk o f venous thromboembolism [facility] Start: 06-16-2024 Incentive spirometry [facility] Start: 06-16-2024 Insertion of cathete r into peripheral vein [facility] Start: 06-16-2024 Measuring intake and output [facility] Start: 06-16-2024 Providing care accor ding to standard [facility] Start: 06-16-2024 Referral to occupati onal therapist [facility] Start: 06-16-2024 Referral to service [facility] Start: 06-16-2024 Tobacco use cessatio n education [facility] Start: 06-16-2024 [facility] Start: 06-16-2024 Admission procedure [facility] Start: 06-16-2024 Patient referral to dietitian [facility] Start: 06-14-2024 Referral to service [facility] Start: 06-14-2024 Consultation [facility] Start: 06-14-2024 Patient discharge [facility] Start: 06-13-2024 Care planning and pr oblem solving actions [facility] Start: 06-12-2024 Wound care [facility] Start: 06-12-2024 Referral to service [facility] Start: 06-12-2024 Referral to occupati onal therapist [facility] Start: 06-11-2024 Consultation for treatment [facility] Start: 06-11-2024 [facility] Start: 06-11-2024 Following clinical pathway protocol [facility] Start: 06-11-2024 Admission procedure [facility] Start: 06-11-2024 Patient referral to dietitian [facility] Start: 06-03-2024 End: 06-03-2024 Patient encounter procedure 06/03/2024 1:30 PM EST Office Visit [facility] [address] [place] [address] Hetal Gallegos MD [address] [place] [address] er f/u R hip/pt will call to get referral [facility] Comment on above: er f/u R hip/pt will call to get referral Start: 01-28-2024 Covid-19 Vaccine ( season) Covid-19 Vaccine ( season) [facility] Start: 01-28-2024 Influenza vaccination Influenz a Vaccine (#1) [facility] Start: 10-09-2023 [facility] Start: 10-09-2023 [facility] Start: 06-06-2022 [facility] Work Phone: Start: 05-22-2022 [facility] Work Phone: Start: 2021 RSV Vaccine (1 - Ris k 60-74 years 1-dose series) RSV Vaccine (1 - Risk 60-74 years 1-dose series) [facility] Start: 02-29-2016 Prostate specific an tigen measurement Prostate Cancer Screening Discussion [facility] Start: 2011 Shingrix Vaccine (1 of 2) Blanco grix Vaccine (1 of 2) [facility] Start: 2006 Screening for malign ant neoplasm of colon [facility] Start: 02-29-1996 Lipid panel Lipid Screening [facility] Start: 02-29-1980 Urine microalbumin profile DTaP,Tdap,Td Vaccine (1 - Tdap) [facility] Start: 1979 Anxiety Screening Anxiety Screening [facility] Start: 1979 Depression Screening Depression Scre ening [facility] Start: 1979 Hepatitis C screening Hepatitis C [facility] Start: 1979 HIV screening HIV Screening [facility] Bacteria identified in Urine by Culture Urine Culture [facility] Work Phone: Patient Education [facility] Work Phone: Patient referral [facility] Work Phone: Urine culture [facility] Immunizations Immunization Date Immunization Notes Care Provider Fa cility 03-30-2023 influenza virus vaccine, unspecified formulation Hetal Gallegos MD Work Phone: [facility] 03-03-2021 Covid (Pfizer) [facility] 03-03-2021 Influenza virus vaccine [facility] 07-24-2020 Covid (Pfizer) [facility] 07-07-2020 Covid (Pfizer) [facility] 02-26-2018 Influenza virus vaccine [facility] 02-27-2017 Influenza virus vaccine [facility] 02-23-2016 Influenza virus vaccine [facility] 03-17-2015 influenza, injectabl e, quadrivalent, preservative free [facility] 03-17-2015 influenza, seasonal, injectable [facility] Work Phone: 04-29-2013 Influenza virus vaccine [facility] 2012 Pneumococcal Vaccine [facility] Work Phone: 2012 pneumococcal vaccine , unspecified formulation [facility] Payers Date Payer Category Payer Medicare [id number] 2024 Self-pay [id number] 2024 Unknown [id number] 2016 Medicare [id number] 2015 Unknown [id number] Medicare [id number] Private Health Insurance [facility] [id number] Unknown Unknown [id number] 2.16.8 [id number] Unknown [id number] 2.16.8 [id number] Unknown [id number] 2.16.8 [id number] Unknown [id number] 2.16.8 [id number] Unknown [id number] 2.16.8 [id number] Unknown [id number] 2.16.8 [id number] Unknown [id number] 2.16.8 [id number] Unknown [id number] 2.16.8 [id number] Unknown [id number] 2.16.8 [id number] Unknown [id number] 2.16.8 [id number] Unknown [id number] 2.16.8 [id number] Unknown [id number] 2.16.8 [id number] Unknown [id number] 2.16.8 [id number] Unknown [id number] 2.16.8 [id number] Unknown [id number] 2.16.8 [id number] Unknown [id number] 2.16.8 [id number] Social History Date Type Detail Facility Start: 09-09-2021 End: 10-09-2023 Tobacco smoking status NHIS Unknown if ever smoked [facility] Start: 06-27-2021 Heavy [facility] Start: 01-19-2019 None [facility] Start: 01-19-2019 Spouse/ Signif icant Other [facility] Start: 06-27-2021 Cigarettes [facility] Start: 1960 Sex Assigned At Male [facility] Start: 01-21-2016 Tobacco smoking stat us NHIS Smokes tobacco daily [facility] Start: 05-03-2024 Alcoholic beverage intake Current non-drinker of alcohol (finding) [facility] Start: 05-03-2024 End: 05-04-2024 History of Social function [facility] Start: 05-03-2024 End: 05-04-2024 Tobacco use panel [facility] National Score (1-100), lower number is lower risk 80 [facility] Start: 1960 Sex assigned at Not on file [facility] Start: 09-11-2024 End: 11-01-2024 Tobacco smoking status NHIS Ex-smoker (finding) [facility] Start: 09-12-2024 Sex Male (finding) [facility] Medical Equipment Procedure Code Equipment Code Equipment Origin al Text Equipment Identifier Dates ([id number]) Drug-eluting coronary artery stent, bioabsorbable-polyme r-coated ()[id number] FDA Start: 06-29-2021 Goals Date Patient Goal Desired Activity /State Functional Status Date Assessment Result Facility 06-19-2024 Functional status Bedrest [facility] Work Phone: 06-14-2024 [facility] Work Phone: 06-29-2021 Functional status Activity Abili ty With Assist of 2;[facility] Work Phone: Mental Status Date Assessment Result Facility 07-14-2024 Cognitive function Level Of Cons ciousness Awake;Alert;Appropriate;Follow s Commands [facility] Work Phone: 02-15-2025 Cognitive function Voice/Name [facility] Work Phone: 06-19-2024 Cognitive function Voice/Name [facility] Work Phone: 06-14-2024 Cognitive function Voice/Name [facility] Work Phone: 10-09-2023 Cognitive function Level Of Cons ciousness Awake;Alert;Appropriate [facility] Work Phone: 06-06-2022 Cognitive function Awake;Alert;Disoriente d [facility] Work Phone: 06-29-2021 Cognitive function Voice/Name [facility] Work Phone: 06-28-2021 Cognitive function Patient Orien tation Person;Place;Time [facility] Work Phone: Clinical Notes 05-06-2024 to 09-12-2024 Note Date & Type Note Facility 09-12-2024 Discharge summary [facility] 09-11-2024 Radiology Diagnostic study note [facility] Imaging Services [address] [place], [place] [id number] Pelvis WITH IV Contrast MR#: [id number] Acct: [id number] Name: BAUTISTA RUFFIN Rep #: [id number] : 1960 M 64 From: Maxwell Figueroa MD PCP: [facility] Status: REG ER Study:Pelvis WITH IV Contrast Date of Exam: 09/11/24 Exam# [id number] Ordering Dr: Alex Ellis GARMENT PRESSER-C PROCEDURE: PELVIS WITH IV CONTRAST REASON FOR [...] ischium bilaterally but no abscess. Reading Location: [id number] CC: MARCOS Sheppard; [facility] ~ Mushroom Growing Supervisor: Signed [facility] 09-11-2024 Discharge summary Note Date/Time September 12, 2024 11:45am [facility] Medical Records Department [address] [place] [id number] Emergency Department Summary 09/11/24 MR#: [id number] Acct: [id number] Name: BAUTISTA RUFFIN Rep #:[id number] : 1960 64 From: Alex RODRÍGUEZ [facility]: [facility] Status:REG ER Location: ED ADDENDUM by Dr. Alma Rosa Pedroza DO on 09/12/24 at 1144 Care of patient turned over to fl awaiting transfer to tertiary care center for definitive care at [facility]. Patient remained hemodynamically stable. [facility] will use there transfer team to transfer patient I am told at 1300 hrs. 09/12/24 1144<Electronically signed by Alma Rosa Pedroza DO> Cosigner Signature (if applicable): 09/12/24 0012 <Electronically signed by Adwoa NARVAEZ> cc: [facility] ~* Signed HPI <MARCOS Holliday - Last Filed: 09/11/24 21:48> History of Present Illness Chief Complaint: Cellulitis Narrative Narrative: Patient is a 64-year-old male that is a paraplegic, this is secondary to transverse myelitis, patient also has history of wounds, colostomy, catheter, anxiety [facility]. Patient does live at home, patient's as well as some home care nursing does take care of him. The home care nurses noticed that there was a foul-smelling odor from multiple wounds on his sacrum, buttocks area, they referred him to the [facility] apartment. Patient denies any fever or chills. Patient does not state he has any pain however he has no feeling. [facility] <MARCOS Holliday - Last Filed: 09/11/24 21:48> [facility] Medical History Sacral decubitus ulcer, stage III Atherosclerotic heart disease of [place] coronary artery without angina pectoris Depression Chronic [...] mg capsule 100 mg PO QHS anxiety /09/1406/26/21 History ascorbic acid (vitamin C) 1,000 mg [...] any excessive bruising, easy bleeding EXAM <Alex SheppardDIANNA-C - Last Filed: 09/11/24 21:48> Physical Exam [...] 96 Pulse Ox 95 Oxygen Delivery Method [facility] <MARCOS Holliday - Last Filed: 09/11/24 21:48> [facility] Lab Data Labs: Laboratory Results - last 24 hr 09/11/24 09/11/24 16:00 16:56 WBC 11.6 H RBC 5.05 Hgb 13.0 Hct 40.9 MCV 81.0 MCH 25.7 L MCHC 31.8 L RDW Std Deviation 51.1 H RDW Coeff of Bhanu 17.6 H Plt Count 371 MPV 8.6 Immature Gran % (Auto) 0.400 Neut % (Auto) 66.2 Lymph % (Auto) 20.8 Polk % (Auto) 8.6 Eos % (Auto) 3.6 [...] Clarity Clear Urine pH 6.0 Ur Specific Kingsbury 1.015 Urine Protein 15 H Urine Glucose [...] ischium bilaterally but no abscess. Reading Location: [facility] Treatment and Re-Evaluation :: Differential diagnosis [...] want to try to go to the [facility]. We will try to see if they have a bed. If not the patient will be admitted here. [facility] will be admitted to [facility]. <Dr. Adan Bell, DO - Last Filed: 09/12/24 00:12> MDM MDM Narrative Medical decision making narrative: I have [...] myself. [facility] to go to the [facility]. Patient was accepted there. Patient was to be transferred to the emergency department there. However, ambulance service stated that the patient's insurance would notcover their ambulance transfer [facility] the [facility] unavailable [...] % (Auto) 66.2 Lymph % (Auto) 20.8 Polk % (Auto) 8.6 Eos % (Auto) 3.6 [...] Clarity Clear Urine pH 6.0 Ur Specific Kingsbury 1.015 Urine Protein 15 H Urine Glucose [...] ischium bilaterally but no abscess. Reading Location: [facility] Discharge Plan Triage Chief Complaint: Cellulitis ED [...] Days Qty: 20 0RF [facility] [Primary Care Provider] - Print Language: Danish Disposition Disposition: Acute Care Hospital Discharge Location: [facility] What to do if you have Problems For any increased pain, shortness of breath, bleeding, nausea or vomiting, chestpain, or any unexpected problems, contact your Primary Care Provider. Call [facility] ([phone]) or report to the closest Emergency Room. Call 911 if necessary. 09/11/242147 <Electronically signed by Alex RODRÍGUEZ> Cosigner Signature (if applicable): 09/12/24 0012 <Electronically signed by Adan Bell DO> CC: [facility] ~ Signed [facility] Work Phone: [phone]) 938-501601-22-2025 [facility] Medical Records Department [address] [place] [address] Discharge Summary 06/19/24 1145 MR#: [id number] Acct: [id number] Name: BAUTISTA RUFFIN Rep #: [id number] : 1960 64 From: Darian Arceo MD PCP: [facility] Status:ADM IN Location: [place] [id number] Providers Date of Admission: 06/16/24 Date of Discharge: 06/19/24 Primary Care Physician: [facility] Consultations 06/17/24 02:09 Consult: Onc/Wound/activity assistant Routine Comment: Reason for Consult:: large buttock [...] on admission -the patient was admitted on MedSur floor. Urine culture shows no growth. 06/17: Leukocytosis resolved. On last discharge on 06/14, prescription was given by [facility] for Zosyn for 5 more days which is resumed. Patient has midline. Discussed with the piano case and bench assembler. Might need to go to [facility] 06/18: Patient wanted to go home so [...] in his femur: Patient was worked in [facility] and was not felt to be surgical candidate. Recommend to follow-up with [facility]. 4. History of CAD; s/p proximal LAD [...] PO DAILY Check w (more content not included)...[facility]01-17-2025 [facility] Medical Records Department [address] [place] [address] Discharge Summary 06/14/24 1552 MR#: [id number] Acct: [id number] Name: BAUTISTA RUFFIN Rep #: [id number] : 1960 64 From: Darian Arceo MD PCP: [facility] Status:ADM IN Location: [facility] [id number] Providers Date of Admission: 06/11/24 Date of Discharge: 06/14/24 Primary Care Physician: [facility] Consultations 06/11/24 23:24 Consult: Onc/Wound/activity assistant Routine Comment: Reason for Consult:: wound 06/14/24 [...] inserted. IV antibiotic arranged. Discussed with the piano case and bench assembler. Patient is discharged with home health. 2. [...] in his femur: Patient was worked in [facility] and was not felt to be surgical candidate. Recommend to follow-up with [facility]. 7. History of CAD; s/p proximal LAD [...] case of possible myotoxicity contributin (morecontent not included)...[facility] 06-11-2024 Evaluation note* Diagnosis Onset Date Resolution [...] ulcer, stage III inactive June 16 7:56pm [facility] Work Phone: [phone] Telephone encounter Note* Telephone Encounter - Stacy Gongora - 05/10/2024 10:30 AM EST I spoke with the patient and scheduled an appointment. Stacy Gongora [facility]12-13-2024 Miscellaneous Notes* Telephone Encounter - Stacy Gongora [...] in 3 weeks [facility] Telephone encounter Note * Telephone Encounter - Stacy Gongora - 05/07/2024 9:07 AM EST I called the patient to schedule an appointment. I left another voice mail with our office number to call back. Of note he has 2 numbers in the chart. The 601# does not work. Stacy Gongora [facility]12-09-2024 Telephone encounter Note* Telephone Encounter - Stacy Gongora - 05/06/2024 8:17 AM EST I called the patient to schedule an appointment with [facility] in 3 weeks. I left a voice mail with our office number to call back. Stacy Gongora [facility]12-09-2024 Telephone encounter Note* Telephone Encounter - Stacy Gongora - 05/06/2024 8:17 AM EST ----- Message from Hetal Gallegos MD sent at 05/04/2024 12:05 PM EST ----- Follow-up in 3 weeks please [facility] Diagnosis Onset Date Resolution Status Non-ST elevated myocardial infarction (non-STEMI) resolved [facility] Work Phone: Evaluation noteNo assessment information available [facility] Work Phone: Hospital Discharge instructions Additional Instructions [...] if any worsening symptoms. Take medications as prescribed.[facility] Work Phone: Hospital Discharge instructions Additional Instructions Your suprapubic cath was exchanged 18 Guyanese placed with urine output. Urine culture pending. Taking finish antibiotic as scribed. Follow-up with your urology team.[facility] Work Phone: Reason for referral (narrative)No reason for referral information [facility]WL[facility] Work Phone: Summary Purpose Family History No Family History Records Found Relationship Condition Age at Onset Recorded Date/T dianelys father Cerebrovascular accident (CVA) Unknown Cardiac disease Unknown Myocardial infarction Unknown Advance Directives No Advanced Directives Records Found Advance Directive Response Recorded Date/ Time Name of Medical Power of Health Information Manager mother and sis ter June 28, 2021 5:01am Advance Directives No June 29, 2016 2:07am Living Will No September 09, 2021 3:30pm Power of Health Information Manager No September 09 3:30pm Advance Directive Response Recorded Date/ Time Advance Directives No June 29, 2016 1:07am Living Will Yes May 22, 2 022 4:43pm Power of Health Information Manager Yes May 22, 2022 4:43pm Name of Medical Power of Health Information Manager milka evens May 22, 2022 4:43pm Advance Directive Response Recorded Date/ Time Name of Medical Power of Health Information Manager milka evens May 22, 2022 4:43pm Advance Directives No June 29, 2016 1:07am Living Will No June 06 4:21pm Power of Health Information Manager No June 06 4:21pm Advance Directive Response Recorded Date/ Time Advance Directives No June 29, 2016 2:07am Living Will Yes October 09, 2023 1 :17am Power of Health Information Manager Yes October 09, 2023 1:17am Name of Medical Power of Health Information Manager Gloria ex wif e October 09, 2023 1:17am Advance Directive Response Recorded Date/ Time Living Will No June 12 12:19am Do you have a Healthcare Pow er of Health Information Manager? No June 12, 2024 12:19am Living Will Yes July 14 025 8:10am Do you have a Healthcare Pow er of Health Information Manager? Yes July 14, 2024 8:10am Name of Medical Power of Health Information Manager ANTHONY PLANT July 14, 2024 8:10am Living Will Yes September 11, 2024 3:41pm Do you have a Healthcare Pow er of Health Information Manager? Yes September 11, 2024 3:41pm Name of Medical Power of Health Information Manager Marisela September 11, 2024 3:41pm Living Will Yes June 16 10:03pm Do you have a Healthcare Pow er of Health Information Manager? Yes June 16, 2024 10:03pm Name of Medical Power of Health Information Manager yudith plant w nusrat June 16, 2024 10:03pm Living Will No July 13 3:32am Do you have a Healthcare Pow er of Health Information Manager? No July 13, 2024 3:32am Advance Directives No June 29, 2016 2:07am Advance Directive Response Recorded Date/ Time Living Will Yes July 14 8:10am Do you have a Healthcare Power of Health Information Manager? Yes July 14, 2024 8:10am Name of Medical Power of Health Information Manager ANTHONY PLANT July 14, 2024 8:10am Living Will Yes September 11, 2024 3:41pm Do you have a Healthcare Power of Health Information Manager? Yes September 11, 2024 3:41pm Name of Medical Power of Health Information Manager Marisela September 11, 2024 3:41pm Do you have a Healthcare Power of Health Information Manager? Yes November 01, 2024 2:11pm Living Will No July 13 3:32am Do you have a Healthcare Power of Health Information Manager? No July 13, 2024 3:32am Advance Directives [...] 11, 2024 9 :41pm Metabolic encephalopathy June 11, 2 025 9:41pm Sacral decubitus ulcer, stage III Januar y 2024 9:41pm Acute cystitis with hematuria [...] section and content) DATE CREATED AUTHOR 11/20/2017 [facility] DATE CREATED AUTHOR AUTHOR'S ORGANIZ ATION 11/21/2017 [facility] [place] DATE CREATED AUTHOR AUTHOR'S ORGANIZ ATION 05/11/2024 [facility] DATE CREATED AUTHOR AUTHOR'S ORGANIZ ATION 11/03/2024 [facility] Goals (unrecognized section and content) Goals may be documented in a n alternate sectionGoals may be documented in an alternate sectionGoals may be documented in an alternate sectionGoals may be documented in an alternate sectionGoals may be documented in an alternate section Care Teams (unrecognized sec tion and content) Team Status: Active Member Role Status Dates [facility] Family Provider Active [facility] Primary Care Provider Active Team Status: Inactive Member Role Status Dates [facility] Primary Care Provider Active Dr. Adan Bell DO Emergency Provider Active Spray Dyer Relationship Specialty Start Date End Date Jamey Huynh MD [address] [place] [address] PCP - General Family Medicine 01/02/12 Team Status: Active Member Role Status Dates [facility] Primary Care Provider Active Team Status: Inactive Member Role Status Dates [facility] Primary Care Provider Active Start: June 11, [...] Team Status: Active Member Role Status Dates [facility] Primary Care Provider Active Start: June 12, [...] Team Status: Active Member Role Status Dates [facility] Primary Care Provider Active Start: June 13, [...] Team Status: Active Member Role Status Dates [facility] Primary Care Provider Active Start: June 14, [...] Team Status: Inactive Member Role Status Dates [facility] Primary Care Provider Active Start: June 16, 2024 End: June 19, 2024 Dr. Christian Merols MD Emergency Provider Active Start: June 16, [...] Team Status: Active Member Role Status Dates [facility] Primary Care Provider Active Start: June 17, [...] Team Status: Active Member Role Status Dates [facility] Primary Care Provider Active Start: June 18, [...] Team Status: Active Member Role Status Dates [facility] Primary Care Provider Active Start: June 19, [...] Team Status: Inactive Member Role Status Dates [facility] Primary Care Provider Active Start: July 13, 2024 End: July 13, 2024 Dr. Richie Borden DO Attending Provider Active Start: July 13, 2024 End: July 13, 2024 Dr. Richie Borden DO Emergency Provider Active Start: July 13, 2024 End: July 13, 2024 Team Status: Inactive Member Role Status Dates [facility] Primary Care Provider Active Start: July 14, 2024 End: July 14, 2024 Dr. Rico Moore DO Attending Provider Active Start: July 14, 2024 End: July 14, 2024 Dr. Rico Moore DO Emergency Provider Active Start: July 14, 2024 End: July 14, 2024 Team Status: Inactive Member Role Status Dates [facility] Primary Care Provider Active Start: September 11, 2024 End: September 12, 2024 Dr. Adan Bell DO Emergency Provider Active Start: September 11, 2024 End: September 12, 2024 Team Status: Inactive Member Role Status Dates [facility] Primary Care Provider Active Start: September 11, 2024 End: September 12, 2024 Dr. Adan Bell DO Attending Provider Active Start: September 11, 2024 End: September 12, 2024 Dr. Adan Bell DO Emergency Provider Active Start: September 11, 2024 End: September 12, 2024 Team Status: Inactive Member Role Status Dates [facility] Primary Care Provider Active Start: November 01, 2024 End: November 01, 2024 Dr. Zhang Chavez , Emergency Provider Active Start : November 01, 2024 End: November 01, 2024 Source Comments (unrecognize d section and content) In the event this informatio n is protected by the Federal Confidentiality of Alcohol and Drug Abuse Patient Records regulations: The Federal rules restrict any use of the information to criminally investigate or prosecute any alcohol or drug abuse patient.[facility] FOR RECORDS PERTAINING TO PATIENTS WHO ARE [...] BE BASED ON THE PRIMARY CLINICAL RECORDS. [employer] provides no warranty or guarantee of the accuracy or completeness of information in this document.
--- OUTSIDE RECORDS SUMMARY | 2024-11-03 16:29 | XMS RPT_ITS | CCD ---
Author Organization [facility] Care Team Providers Care Elevated Motorman Name Role Phone PROVIDER, UNKNOWN Unavailable Unavailable No, PCP Unavailable Unavailable Gajulapalli, Chivo Unavailable Unavailable [facility] Unavailable Unavail able [facility] Unavailable Unavail able [facility] Unavailable Unavail able [facility] Unavailable Unavail able [facility] Unavailable Unavail able [facility], [place] Primary Care Provider UnavailDr. Adan Santa Emergency Provider Dr. Lorraine Quinonez Admit Provider Dr. Lorraine Quinonez Referring Provider Dr. Zackary Costello Other Provider Dr. John Ponce Other Provider Dr. Alberto Candelario Attending Provider Dr. John Ponce Attending Provider JAMEY HUYNH Primary Care UnavailJamey Weiss MD Primary Care Provider [place] Primary Care Provider UnavailDr. Alma Rosa Isaacs DO Emergency Provider [phone] Dr. Ronak Quiroz DO Admit Provider Unavail able Dr. Ronak Quiroz DO Other Provider Unavail able Dr. Darian Arceo MD Attending Provider Dr. Maulik Jenkins MD Other Provider [place] Primary Care Provider Dr. Darian Guajardo MD Other Provider Dr. Christian Merlos MD Emergency Provider Dr. Richie Borden DO Attending Provider Andes DO, Dr. Richie Emergency Provider Oscar NARVAEZ, Dr. Gómez Attending Provider [phone] Oscar NARVAEZ, Dr. Gómez Emergency Provider Ray NARVAEZ, Dr. Arellano Emergency Provider [phone] [place] Primary Care Provider Unavailaugustin Bell DO, Dr. Arellano Attending Provider [phone] Kathy DO, Dr. Holcomb Emergency Provider Hema Jean-Baptiste Attending [facility] [place] Primary [facility] Unavailable Rico Moore [...] 19, 2013 1:00am take 1 capsule by [facility] three times daily gabapentin (NEURONTIN) 400 mg [...] 03, 2015 1:00am September 07, 2015 9:19am Blukn-Gxfc-Qtybz-Collag-Mv-M in (Mamadou (With Collagen)) 1 PACKET Packet (6 sources) Start: 03-22-2017 End: 05-01-2017 take 1 dose by mouth twice daily at mealtime Yhvyw-Rcvd-Rfubv-Egibha-Xd-Rqa (Mamadou (With Collagen)) 1 PACKET Packet Discontinued 1 PACKET PO TWICE DAILY WITH MEALS March 22, 2017 1:37pm May 01, 2017 12:37pm Start: 03-22-2017 End: 05-01-2017 take 1 dose by mouth twice daily at mealtime Izcaq-Mbdc-Iznjk-Gkwvjc-Vy-Jxx (Mamadou (W ith Collagen)) 1 PACKET Packet Discontinued 1 NMA PO TWICE DAILY WITH MEALS March 22, 2017 12:00am May 01, 2017 12:37pm Start: 03-22-2017 End: 05-01-2017 take 1 dose by mouth twice daily at mealtime Ejucs-Fcga-Bqule-Eqejew-Iw-Ibt (Mamadou (W ith Collagen)) 1 PACKET Packet Discontinued 1 PACKET PO TWICE DAILY WITH MEALS March 22, 2017 12:00am May 01, 2017 12:37pm Start: 03-22-2017 End: 05-01-2017 take 1 dose by mouth twice daily at mealtime Kthzr-Iujq-Rkvah-Jlyxyl-Ml-Tsj (Mamadou (W ith Collagen)) 1 PACKET Packet [...] beta Lactamase Inhibitor Start: 06-14-2024 End: 06-19-2024 Ynbejfshtuew-Cdcdyoknif-Ytvf rs (Zosyn In Dextrose (Iso-Osm)) 3.375 gram/50 mL piggyback Discontinued 3.375 g IV Q8H June 14, 2024 1:00am June 19, 2024 12:42pm dx: pseudomonas infection. Midline care per protocol. 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 Reading Location[facility] CC: Dr. Alma Rosa Pedroza, DO; [facility] Straight Line Edger: Signed Normal [facility] CBC W/Diff, Automatedon 06-0 Absolute Lymph 2.10 X10 3/uL Normal 0.83-4.51 [facility] Comment on above: Performed By: #### L 503.6005, L500.4050, L100.0100, L501.2450, L501.4021 ####[facility] [address] [place], [address] Absolute Neut 6.5 X10 3/uL Normal 2.0-7.7 [facility] Comment on above: Performed By: #### L 503.6005, L500.4050, L100.0100, L501.2450, L501.4021 ####[facility] [address] [place], [address] Basophils/100 WBC (Bld) 0.3 % Normal 0-[address] [facility] Comment on above: Performed By: #### L 503.6005, L500.4050, L100.0100, L501.2450, L501.4021 ####[facility] [address] [place], [address] Eosinophils/100 WBC (Bld) 0.9 % Normal 0-5 [facility] Comment on above: Performed By: #### L 503.6005, L500.4050, L100.0100, L501.2450, L501.4021 ####[facility] [address] [place], [address] Erythrocyte distribution width (RBC) [Ratio] 18.3 % High 11.6-14.6 [facility] Comment on above: Performed By: #### L 503.6005, L500.4050, L100.0100, L501.2450, L501.4021 ####[facility] [address] [place], [address] Hematocrit (Bld) [Volume fraction] 42.4 % Normal 40-54 [facility] Comment on above: Performed By: #### L 503.6005, L500.4050, L100.0100, L501.2450, L501.4021 ####[facility] [address] [place], [address] Hemoglobin (Bld) [Mass/Vol] 13.5 g/dL Normal 13.0-16. 5 [facility] Comment on above: Performed By: #### L 503.6005, L500.4050, L100.0100, L501.2450, L501.4021 ####[facility] [address] [place], [address] IG% 0.200 Normal 0.0-0.9 [facility] Comment on above: Result Comment: IG% - Immature Granulocytes (promyelocytes, myelocytes and metamyelocytes) > 1% indicates that a LEFT SHIFT is Present. Performed By: #### L 503.6005, L500.4050, L100.0100, L501.2450, L501.4021 ####[facility] [address] [place], [address] Lymphocytes/100 WBC (Bld) 22.5 % Normal 19-41 [facility] Comment on above: Performed By: #### L 503.6005, L500.4050, L100.0100, L501.2450, L501.4021 ####[facility] [address] [place], [address] MCH (RBC) [Entitic mass] 25.0 pg Low 27.0-32.0 [facility] Comment on above: Performed By: #### L 503.6005, L500.4050, L100.0100, L501.2450, L501.4021 ####[facility] [address] [place], [address] MCHC (RBC) [Mass/Vol] 31.8 g/dL Low 32-36 [facility] Comment on above: Performed By: #### L 503.6005, L500.4050, L100.0100, L501.2450, L501.4021 ####[facility] [address] [place], [address] MCV (RBC) [Entitic vol] 78.7 fL Low 80-[address] [facility] Comment on above: Performed By: #### L 503.6005, L500.4050, L100.0100, L501.2450, L501.4021 ####[facility] [address] [place], [address] Monocytes/100 WBC (Bld) 6.7 % Normal 0-10 [facility] Comment on above: Performed By: #### L 503.6005, L500.4050, L100.0100, L501.2450, L501.4021 ####[facility] [address] [place], [address] Neutrophils/100 WBC (Bld) 69.4 % Normal 47-70 [facility] Comment on above: Performed By: #### L 503.6005, L500.4050, L100.0100, L501.2450, L501.4021 ####[facility] [address] [place], [address] Nucleated RBC (Bld) [#/Vol] 0 10*3/uL Normal 0-5 [facility] Comment on above: Performed By: #### L 503.6005, L500.4050, L100.0100, L501.2450, L501.4021 ####[facility] [address] [place], [address] Platelet mean volume (Bld) [Entitic vol] 9.0 fL Normal 6.2-12.0 [facility] Comment on above: Performed By: #### L 503.6005, L500.4050, L100.0100, L501.2450, L501.4021 ####[facility] [address] [place], [address] Platelets (Bld) [#/Vol] 364 10*3/uL Normal 150-450 [facility] Comment on above: Performed By: #### L 503.6005, L500.4050, L100.0100, L501.2450, L501.4021 ####[facility] [address] [place], [address] RBC (Bld) [#/Vol] 5.39 10*6/uL Normal 4.6-6.2 [facility] Comment on above: Performed By: #### L 503.6005, L500.4050, L100.0100, L501.2450, L501.4021 ####[facility] [address] [place], [address] RDW SD 50.6 fl High 35.1-43.9 [facility] Comment on above: Performed By: #### L 503.6005, L500.4050, L100.0100, L501.2450, L501.4021 ####[facility] [address] [place], [address] WBC (Bld) [#/Vol] 9.3 10*3/uL Normal 4.4-11.0 [facility] Comment on above: Performed By: #### L 503.6005, L500.4050, L100.0100, L501.2450, L501.4021 ####[facility] [address] [place], [address] Chest 1 View (Portable)on Chest 1 View (Portable) [facility] Imaging Services [address] [place] [address] Chest 1 View (Portable) MR#: [id number] Acct: [id number] Name: BAUTISTA RUFFIN Rep #: [id number] : 1960 M 64 From: Rasheed Bruner DO PCP: [facility] Status: REG ER Study: Chest 1 View (Portable) Date of Exam: 11/03/24 Exam# [id number] Ordering Dr: Alma Rosa Pedroza DO PROCEDURE: CHEST 1 VIEW (PORTABLE) 11/03/2024 REASON FOR EXAM: WEAKNESS TECHNIQUE: Frontal view of the chest. COMPARISON: Chest radiograph 07/14/2024 FINDINGS: Hardware: EKG lead wires Heart: Normal size Lungs: Clear Bones: No aggressive lesions identified Other: RAD/Chest 1 View (Portable) IMPRESSION: No acute process detected. Reading Location: [facility] CC: Dr. Alma Rosa Pedroza DO; [facility] Straight Line Edger: Signed Normal [facility] Comprehensive Metabolic Prof ilon 11-03-2024 Albumin [Mass/Vol] 3.4 g/dL Normal 3.4-4.8 [facility] Comment on above: Performed By: #### L 503.6005, L500.4050, L100.0100, L501.2450, L501.4021 ####[facility] [address] [place], [address] Albumin/Globulin [Mass ratio] 0.8 {ratio} Low 0.9-2.4 [facility] Comment on above: Performed By: #### L 503.6005, L500.4050, L100.0100, L501.2450, L501.4021 ####[facility] [address] [place], [address] ALK PHOS 141 U/L High 40-129 [facility] Comment on above: Performed By: #### L 503.6005, L500.4050, L100.0100, L501.2450, L501.4021 ####[facility] [address] [place], [address] ALT [Catalytic activity/Vol] 8 U/L Normal <=46 [facility] Comment on above: Performed By: #### L 503.6005, L500.4050, L100.0100, L501.2450, L501.4021 ####[facility] [address] [place], [address] AST [Catalytic activity/Vol] 16 U/L Normal <=37 [facility] Comment on above: Performed By: #### L 503.6005, L500.4050, L100.0100, L501.2450, L501.4021 ####[facility] [address] [place], [address] Bilirubin [Mass/Vol] 0.24 mg/dL Normal 0.00-1.30 [facility] Comment on above: Performed By: #### L 503.6005, L500.4050, L100.0100, L501.2450, L501.4021 ####[facility] [address] [place], [address] BUN/CRE 21.4 RATIO High 10-20 [facility] Comment on above: Performed By: #### L 503.6005, L500.4050, L100.0100, L501.2450, L501.4021 ####[facility] [address] [place], [address] Calcium [Mass/Vol] 9.5 mg/dL Normal 7.6-11.0 [facility] Comment on above: Performed By: #### L 503.6005, L500.4050, L100.0100, L501.2450, L501.4021 ####[facility] [address] [place], [address] Chloride [Moles/Vol] 101 mmol/L Normal 98-108 [facility] Comment on above: Performed By: #### L 503.6005, L500.4050, L100.0100, L501.2450, L501.4021 ####[facility] [address] [place], [address] CO2 [Moles/Vol] 25.7 mmol/L Normal 21.0-32.0 [facility] Comment on above: Performed By: #### L 503.6005, L500.4050, L100.0100, L501.2450, L501.4021 ####[facility] [address] [place], [address] Creatinine [Mass/Vol] 0.65 mg/dL Low 0.70-1.20 [facility] Comment on above: Performed By: #### L 503.6005, L500.4050, L100.0100, L501.2450, L501.4021 ####[facility] [address] [place], [address] ECRCL 122.02 ml/min Normal 50-250 [facility] Comment on above: Performed By: #### L 503.6005, L500.4050, L100.0100, L501.2450, L501.4021 ####[facility] [address] [place], [address] GAP 12 Normal 5-15 [facility] Comment on above: Performed By: #### L 503.6005, L500.4050, L100.0100, L501.2450, L501.4021 ####[facility] [address] [place], [address] GFR/1.73 sq M.predicted among non-blacks MDRD (S/P/Bld) [Vol rate/Area] 106 mL/min/{1.73_m2} Normal >[address] [facility] Comment on above: Result Comment: mL/m in/1.73m2 CKD-EPI Creatinine Equation (2020) Performed By: #### L 503.6005, L500.4050, L100.0100, L501.2450, L501.4021 ####[facility] [address] [place], [address] Globulin (S) [Mass/Vol] 4.1 g/dL Normal 2.2-4.2 [facility] Comment on above: Performed By: #### L 503.6005, L500.4050, L100.0100, L501.2450, L501.4021 ####[facility] [address] [place], [address] Glucose [Mass/Vol] 101 mg/dL High 70-99 [facility] Comment on above: Performed By: #### L 503.6005, L500.4050, L100.0100, L501.2450, L501.4021 ####[facility] [address] [place], [address] Potassium [Moles/Vol] 3.9 mmol/L Normal 3.3-5.1 [facility] Comment on above: Performed By: #### L 503.6005, L500.4050, L100.0100, L501.2450, L501.4021 ####[facility] [address] [place], [address] Sodium [Moles/Vol] 139 mmol/L Normal 133-145 [facility] Comment on above: Performed By: #### L 503.6005, L500.4050, L100.0100, L501.2450, L501.4021 ####[facility] [address] [place], [address] T PROT 7.5 g/dL Normal 5.9-8.4 [facility] Comment on above: Performed By: #### L 503.6005, L500.4050, L100.0100, L501.2450, L501.4021 ####[facility] [address] [place], [address] Urea nitrogen [Mass/Vol] 14 mg/dL Normal 4-19 [facility] Comment on above: Performed By: #### L 503.6005, L500.4050, L100.0100, L501.2450, L501.4021 ####[facility] [address] [place], [address] L499.0042on 11-03-2024 Trop T High Sen 26 ng/L High <=22 [facility] Comment on above: Performed By: #### L 499.0042 ####[facility] [address] [place], [address] L501.4021on 11-03-2024 Trop T High Sen 27 ng/L High <=22 [facility] Comment on above: Performed By: #### L 503.6005, L500.4050, L100.0100, L501.2450, L501.4021 ####[facility] [address] [place], [address] Lactic Acidon 11-03-2024 Lactate [Moles/Vol] 1.3 mmol/L Normal 0.0-2.0 [facility] Comment on above: Order Comment: Y Performed By: #### L 503.6005, L500.4050, L100.0100, L501.2450, L501.4021 ####[facility] [address] [place], [address] Lipaseon 11-03-2024 Lipase [Catalytic activity/Vol] 17 U/L Normal 13-75 [facility] Comment on above: Result Comment: Siri anaya note: LIPASE revised reference range effective 22. New Lipase methodology. Expected to produce lower values than the previous assay method. NEW Reference Range: 13 - 75 U/L Performed By: #### L 503.6005, L500.4050, L100.0100, L501.2450, L501.4021 ####[facility] [address] [place], [address] Urine Cultureon 11-03-2024 URC Additional sensitivi ty to follow. Urine Culture Pseudomonas aeruginosa [place] Count >100,000 Pseudomonas aeruginosa: REACTION Cefepime Islt HARMAN 4 Ciprofloxacin Islt HARMAN >=4 R levoFLOXacin Islt HARMAN >=8 R Meropenem Islt HARMAN 2 S Pip+Tazo Islt HARMAN <=4 S Normal [facility] Comment on above: Performed By: #### L 500.3400, L501.2450, L100.0100, L500.2500, L501.4020, L300.8000 #### [facility] [address] [place], [place], [address] Amorphous sediment detection in urine sediment by light microscopyOrdered By: Zhang Chavez on 11-01-2024 Amorphous sediment LM Ql (Urine sed) 1+ [facility] Bilirubin Test strip Ql (U)O rdered By: Zhang Chavez on 11-01-2024 Bilirubin Ql (U) Negative Negative [facility] Emergency Department Summary on 11-01-2024 Emergency Department Summary [facility] Medical Records Department [address] [place] [address] Emergency Department Summary 11/01/24 MR#: [id number] Acct: [id number] Name: BAUTISTA RUFFIN Rep #: [id number] : 1960 64 From: Zhang Arteaga PCP: [place] Hospital Status:DEP ER Location: ED HPI History [...] caregivers. Sent here to rule out infection. [facility] Medical History Sacral decubitus ulcer, stage III Atherosclerotic heart disease of bois forte coronary artery without angina pectoris Depression Chronic [...] Blood Pressu (more content not included)... Normal [facility] Ketones Test strip Ql (U)Ord ered By: Zhang Chavez on 11-01-2024 Ketones Ql (U) Negative Negative [facility] Microscopic analysis of urin e for red blood cells (RBC)Ordered By: Zhang Chavez on 11-01-2024 Microscopic analysis of urine for red blood cells (RBC) 0 SEEN /hpf 0-5 [facility] Mucus LM Ql (Urine sed)Order ed By: Zhang Chavez on 11-01-2024 Mucus Ql (Urine sed) 0 SEEN /hpf [facility] Nitrite Test strip Ql (U)Ord ered By: Zhang Chavez on 11-01-2024 Nitrite Ql (U) Positive High Negative [facility] Protein Test strip Ql (U)Ord ered By: Zhang Chavez on 11-01-2024 Protein Ql (U) 100 mg/dl High Negative [facility] Squamous epithelial cells de tection in urine sediment by light microscopyOrdered By: Zhang Chavez on 11-01-2024 Epithelial cells.squamous LM Ql (Urine sed) 0 SEEN /hpf 0-5 [facility] Urinalysis, Completeon 11-01 WBC 0-5 SEEN Normal 0-5 [facility] Comment on above: Order Comment: GOOD TER SPECIMEN Performed By: #### L 400.0001, ####[facility] [address] [place], [address] AMORPHOUS 1+ Normal [facility] Comment on above: Order Comment: GOOD TER SPECIMEN Performed By: #### L 400.0001, ####[facility] [address] [place], [address] BACTERIA 0 SEEN Normal None Seen [facility] Comment on above: Order Comment: GOOD TER SPECIMEN Performed By: #### L 400.0001, ####[facility] [address] [place], [address] EPI,SQUAMOUS 0 SEEN Normal 0-5 [facility] Comment on above: Order Comment: GOOD TER SPECIMEN Performed By: #### L 400.0001, ####[facility] [address] [place], [address] Mucus Ql (Urine sed) 0 SEEN Normal [facility] Comment on above: Order Comment: GOOD TER SPECIMEN Performed By: #### L 400.0001, M100.2200 ####[facility] [address] [place], [address] RBC 0 SEEN Normal 0-5 [facility] Comment on above: Order Comment: GOOD TER SPECIMEN Performed By: #### L 400.0001, M100.2200 ####[facility] [address] [place], [place], [address] Urine clarityOrdered By: Terell Chavez on 11-01-2024 Clarity (U) Clear Clear [facility] Urine color determinationOrd ered By: Zhang Chavez on 11-01-2024 Color (U) Yellow Yellow [facility] Urine glucose detectionOrder ed By: Zhang Chavez on 11-01-2024 Glucose Ql (U) Normal mg/dl Normal [facility] Urine leukocyte esterase det ection by dipstickOrdered By: Zhang Chavez on 11-01-2024 Leukocyte esterase Test strip Ql (U) 500 /ul High Negative [facility] Urine pHOrdered By: Zhang Chavez on 11-01-2024 pH (U) 6.0 [pH] 5.0 - 8.0 [facility] Urine sediment bacteria coun t by microscopy (number/high power field)Ordered By: Zhang Chavez on 11-01-2024 Bacteria LM.HPF (Urine sed) [#/Area] 0 /[HPF] None Seen [facility] Urine specific gravity measu rementOrdered By: Zhang Chavez on 11-01-2024 Specific gravity (U) [Rel density] 1.020 1.002-1.03 0 [facility] Urine urobilinogen measureme ntOrdered By: Zhang Chavez on 11-01-2024 Urobilinogen Ql (U) Normal mg/dl Normal [facility] White blood cell countOrdere d By: Zhang Chavez on 11-01-2024 White blood cell count 0-5 SEEN /hpf 0-5 [facility] Culture, Blood (WB)on 2024 CUB Blood cultures x2, from two different sites No growth in 5 days. Normal [facility] Comment on above: Performed By: #### L 500.3400, L501.2450, L100.0100, L500.2500, L501.4020, L300.8000 #### [facility] [address] [place], [place], [id number] Urine Cultureon 09-14-2024 URC Pending Pseudomonas aeruginosa [place] Count 1000-10,000 Pseudomonas aeruginosa: REACTION Cefepime Islt HARMAN 1 Ciprofloxacin Islt HARMAN >=4 R levoFLOXacin Islt HARMAN >=8 R Meropenem Islt HARMAN 1 S Pip+Tazo Islt HARMAN <=4 S Pseudomonas aeruginosa: REACTION Amikacin Islt HARMAN 2 Imipenem Islt HARMAN <=0.5 S Tobramycin Islt HARMAN <=1 S Normal [facility] Comment on above: Performed By: #### M 100.1999, M100.2200, M100.3000, L400.0001 ####[facility] [address] [place], [place], [id number] Wound Cultureon 09-14-2024 WC #3 Gram positive [...] S Vancomycin Islt HARMAN 1 S Normal [facility] Comment on above: Performed By: #### M 100.1999, M100.2200, M100.3000, L400.0001 ####[facility] [address] [place], [place], [id number] Gram Stainon 09-12-2024 GS Positive Normal [facility] Comment on above: Performed By: #### M 100.2000, M100.2200, M100.3000, L400.0001 ####[facility] [address] [place], [address] Absolute lymphocyte countOrd ered By: Alex Sheppard on 09-11-2024 Lymphocytes Auto (Unsp spec) [#/Vol] 2.40 10*3/uL 0.83-4.51 [facility] Absolute neutrophil countOrd ered By: Alex Sheppard on 09-11-2024 Neutrophils (Bld) [#/Vol] 7.6 10*3/uL 2.0-7.7 [facility] Activated partial thrombopla stin time (aPTT) in platelet poor plasma by coagulation aOrdered By: Alex Sheppard on 09-11-2024 aPTT Coag (Bld) [Time] 49.7 s High 24.1-36.2 [facility] Comment on above: Performed By: #### L 500.3400, L501.2450, L100.0100, L500.2500, L501.4020, L300.8000 #### [facility] [address] [place], [place], [id number] aPTT Coag (PPP) [Time] 49.7 s High 24.1-36.2 [facility] Anion gap in Serum or Plasma Ordered By: Alex Sheppard on 09-11-2024 Anion gap [Moles/Vol] 9 mmol/L 5-15 [facility] Automated blood erythrocyte countOrdered By: Aelx Sheppard on 09-11-2024 RBC (Bld) [#/Vol] 5.05 10*6/uL Normal 4.6-6.2 [facility] Comment on above: Performed By: #### L 500.3400, L501.2450, L100.0100, L500.2500, L501.4020, L300.8000 #### [facility] [address] [place], [address] Automated blood hematocrit ( percentage)Ordered By: Alex Sheppard on 09-11-2024 Hematocrit (Bld) [Volume fraction] 40.9 % Normal 40-54 [facility] Comment on above: Performed By: #### L 500.3400, L501.2450, L100.0100, L500.2500, L501.4020, L300.8000 #### [facility] [address] [place], [place], [id number] Automated lymphocyte count a s percentage of total leukocytesOrdered By: Alex Sheppard on 09-11-2024 Lymphocytes/100 WBC (Bld) 20.8 % Normal 19-41 [facility] Comment on above: Performed By: #### L 500.3400, L501.2450, L100.0100, L500.2500, L501.4020, L300.8000 #### [facility] [address] [place], [place], [address] Lymphocytes/100 WBC Auto (Unsp spec) 20.8 % 19- [facility] BUN/creatinine ratioOrdered By: Alex Sheppard on 09-11-2024 Urea nitrogen/Creatinine [Mass ratio] 19.5 mg/mg 10-20 [facility] Basophil percentageOrdered B y: Alex Sheppard on 09-11-2024 Basophils/100 WBC (Bld) 0.4 % Normal 0-[address] [facility] Comment on above: Performed By: #### L 500.3400, L501.2450, L100.0100, L500.2500, L501.4020, L300.8000 #### [facility] [address] [place], [place], [id number] Bilirubin Test strip Ql (U)O rdered By: Alex Sheppard on 09-11-2024 Bilirubin Ql (U) Negative Negative [facility] Bilirubin, totalOrdered By: Alex Sheppard on 09-11-2024 Bilirubin [Mass/Vol] mg/dL 0.00-1.30 [facility] Blood cultureOrdered By: Luz Sheppard on 09-11-2024 Bacteria identified Cx Nom (Bld) No growth in 5 days. [facility] CBC W/Diff, Automatedon 04-1 Absolute Lymph 2.40 X10 3/uL Normal 0.83-4.51 [facility] Comment on above: Performed By: #### L 500.3400, L501.2450, L100.0100, L500.2500, L501.4020, L300.8000 #### [facility] [address] [place], [address] Absolute Neut 7.6 X10 3/uL Normal 2.0-7.7 [facility] Comment on above: Performed By: #### L 500.3400, L501.2450, L100.0100, L500.2500, L501.4020, L300.8000 #### [facility] [address] [place], [address] IG% 0.400 Normal 0.0-0.9 [facility] Comment on above: Result Comment: IG% - Immature Granulocytes (promyelocytes, myelocytes and metamyelocytes) > 1% indicates that a LEFT SHIFT is Present. Performed By: #### L 500.3400, L501.2450, L100.0100, L500.2500, L501.4020, L300.8000 #### [facility] [address] [place], [address] Nucleated RBC (Bld) [#/Vol] 0 10*3/uL Normal 0-5 [facility] Comment on above: Performed By: #### L 500.3400, L501.2450, L100.0100, L500.2500, L501.4020, L300.8000 #### [facility] [address] [place], [address] RDW SD 51.1 fl High 35.1-43.9 [facility] Comment on above: Performed By: #### L 500.3400, L501.2450, L100.0100, L500.2500, L501.4020, L300.8000 #### [facility] [address] [place], [place], [id number] Calcium oxalate crystals LM Ql (Urine sed)Ordered By: Alex Sheppard on 09-11-2024 Urine Calcium Oxalate Crystals RARE /hpf [facility] Calcium oxalate crystals det ection in urine sediment by light microscopyOrdered By: Alex Sheppard on 09-11-2024 Calcium oxalate crystals LM Ql (Urine sed) RARE /hpf [facility] Carbon dioxide, total [Moles /volume] in Central venous bloodOrdered By: Alex Sheppard on 09-11-2024 CO2 [Moles/Vol] 27.3 mmol/L Normal 21.0-32.0 [facility] Comment on above: Performed By: #### L 500.3400, L501.2450, L100.0100, L500.2500, L501.4020, L300.8000 #### [facility] [address] [place], [place], [id number] Chloride assayOrdered By: Aicha Sheppard on 09-11-2024 Chloride [Moles/Vol] 103 mmol/L Normal 98-108 [facility] Comment on above: Performed By: #### L 500.3400, L501.2450, L100.0100, L500.2500, L501.4020, L300.8000 #### [facility] [address] [place], [place], [id number] Comprehensive Metabolic Prof ilon 09-11-2024 ALK PHOS 146 U/L High 40-129 [facility] Comment on above: Performed By: #### L 500.3400, L501.2450, L100.0100, L500.2500, L501.4020, L300.8000 #### [facility] [address] [place], [address] BUN/CRE 19.5 RATIO Normal 10-20 [facility] Comment on above: Performed By: #### L 500.3400, L501.2450, L100.0100, L500.2500, L501.4020, L300.8000 #### [facility] [address] [place], [address] ECRCL 107.24 ml/min Normal 50-250 [facility] Comment on above: Performed By: #### L 500.3400, L501.2450, L100.0100, L500.2500, L501.4020, L300.8000 #### [facility] [address] [place], [address] GAP 9 Normal 5-15 [facility] Comment on above: Performed By: #### L 500.3400, L501.2450, L100.0100, L500.2500, L501.4020, L300.8000 #### [facility] [address] [place], [address] T BILI < 0.15 Normal 0.00-1.30 [facility] Comment on above: Performed By: #### L 500.3400, L501.2450, L100.0100, L500.2500, L501.4020, L300.8000 #### [facility] [address] [place], [address] T PROT 6.8 g/dL Normal 5.9-8.4 [facility] Comment on above: Performed By: #### L 500.3400, L501.2450, L100.0100, L500.2500, L501.4020, L300.8000 #### [facility] [address] [place], [address] Comprehensive Metabolic Prof ilOrdered By: Alex Sheppard on 09-11-2024 AST [Catalytic activity/Vol] 27 U/L Normal <=37 [facility] Comment on above: Performed By: #### L 500.3400, L501.2450, L100.0100, L500.2500, L501.4020, L300.8000 #### [facility] [address] [place], [address] Emergency Department Summary on 09-11-2024 Emergency Department Summary [facility] Medical Records Department [address] [place] [address] Emergency Department Summary 09/11/24 MR#: [id number] Acct: [id number] Name: BAUTISTA RUFFIN Rep #: [id number] : 1960 64 From: Alex Sheppard TECHNOLOGY PROJECT MANAGER-C PCP: [facility] Status:REG ER Location: ED ADDENDUM by Dr. Alma Rosa Pedroza DO on 09/12/24 at 1144 Care of patient turned over to wa awaiting transfer to tertiary care center for definitive care at [facility]. Patient remained hemodynamically stable. [facility] will use there transfer team to transfer patient I am told at 1300 hrs. 09/12/24 1144 Cosigner Signature (if applicable): 09/12/24 0012 cc: [facility] * Signed HPI History of Present Illness Chief Complaint: Cellulitis Narrative Narrative: Patient is a 64-year-old male that is a paraplegic, this is secondary to transverse myelitis, patient also has history of wounds, colostomy, catheter, anxiety who presents to the [facility] for wound evaluation. Patient does live at home, patient's as well as some home care nursing does take care of him. The home care nurses noticed that there was a foul-smelling odor from multiple wounds on his sacrum, buttocks area, they referred him to the [facility]. Patient denies any fever or chills. Patient does not state he has any pain however he has no feeling. [facility] Medical History Sacral decubitus ulcer, stage III Atherosclerotic heart disease of [place] coronary artery without angina pectoris Depression Chronic [...] in vomit (more content not included)... Normal [facility] Eosinophil percentageOrdered By: Alex Sheppard on 09-11-2024 Eosinophils/100 WBC (Bld) 3.6 % Normal 0-5 [facility] Comment on above: Performed By: #### L 500.3400, L501.2450, L100.0100, L500.2500, L501.4020, L300.8000 #### [facility] [address] [place], [address] Epithelial cells.squamous LM Ql (Urine sed)Ordered By: Alex Sheppard on 09-11-2024 Epithelial cells.squamous LM.HPF (Urine sed) [#/Area] 0 /[HPF] 0-5 [facility] Erythrocyte distribution wid th (RBC) [Ratio]Ordered By: Alex Sheppard on 09-11-2024 Erythrocyte distribution width (RBC) [Entitic vol] 51.1 fL High 35.1-43.9 [facility] Erythrocyte distribution wid th ratioOrdered By: Alex Sheppard on 09-11-2024 Erythrocyte distribution width (RBC) [Ratio] 17.6 % High 11.6-14.6 [facility] Comment on above: Performed By: #### L 500.3400, L501.2450, L100.0100, L500.2500, L501.4020, L300.8000 #### [facility] [address] [place], [place], [address] Erythrocyte distribution wid th standard deviationOrdered By: Alex Sheppard on 09-11-2024 Erythrocyte distribution width (RBC) [Ratio] 51.1 fl High 35.1-43.9 [facility] Estimation of creatinine elzbieta aranceOrdered By: Alex Sheppard on 09-11-2024 Estimated Creatinine Clearance Calc 107.24 ml/min 50-250 [facility] GFR/1.73 sq M.predicted cheyanne g non-blacks MDRD (S/P/Bld) [Vol rate/Area]Ordered By: Alex Sheppard on 09-11-2024 Estimated GFR (MDRD) Non-Af Amer 101 >60 [facility] Comment on above: mL/min/1.73m2 CKD-EP I Creatinine Equation (2020) Glomerular filtration rate ( GFR) estimation/1.73 sq m using serum, plasma, or whole bOrdered By: Alex Sheppard on 09-11-2024 GFR/1.73 sq M.predicted among non-blacks MDRD (S/P/Bld) [Vol rate/Area] 101 mL/min/{1.73_m2} Normal >[address] [facility] Comment on above: mL/min/1.73m2 CKD-EP I Creatinine Equation (2020) Result Comment: mL/m in/1.73m2 CKD-EPI Creatinine Equation (2020) Performed By: #### L 500.3400, L501.2450, L100.0100, L500.2500, L501.4020, L300.8000 #### [facility] [address] [place], [address] Glucose Ql (U)Ordered By: Aicha Sheppard on 09-11-2024 Urine Glucose (UA) Normal mg/dl Normal [facility] Gram stainOrdered By: Alex jaffe on 09-11-2024 Microscopic observation Gram stain Nom (Unsp spec) [facility] Hemoglobin measurementOrdere d By: Alex Sheppard on 09-11-2024 Hemoglobin (Bld) [Mass/Vol] 13.0 g/dL Normal 13.0-16. 5 [facility] Comment on above: Performed By: #### L 500.3400, L501.2450, L100.0100, L500.2500, L501.4020, L300.8000 #### [facility] [address] [place], [place], [address] Immature granulocytes/100 WB C Auto (Bld)Ordered By: Alex Sheppard on 09-11-2024 Immature granulocytes/100 WBC (Bld) 0.400 % 0.0-0.9 [facility] Comment on above: IG% - Immature Granu locytes (promyelocytes, myelocytes and metamyelocytes) > 1% indicates that a LEFT SHIFT is Present. International normalized rat io (INR) calculationOrdered By: Alex Sheppard on 09-11-2024 INR Coag (Bld) [Relative time] 1.0 {INR} [facility] Ketones Test strip Ql (U)Ord ered By: Alex Sheppard on 09-11-2024 Ketones Ql (U) Negative Negative [facility] Lactic acid measurementOrder ed By: Alex Sheppard on 09-11-2024 Lactate [Moles/Vol] 1.4 mmol/L Normal 0.0-2.0 [facility] Comment on above: Order Comment: Y Performed By: #### L 500.3400, L501.2450, L100.0100, L500.2500, L501.4020, L300.8000 #### [facility] [address] [place], [place], [id number] Lymphocytes Auto (Unsp spec) [#/Vol]Ordered By: Alex Sheppadr on 09-11-2024 Lymphocytes (Bld) [#/Vol] 2.40 10*3/uL 0.83-4.5 1 [facility] MCV (mean corpuscular volume ) determinationOrdered By: Alex Sheppard on 09-11-2024 MCV (RBC) [Entitic vol] 81.0 fL Normal 80-[address] [facility] Comment on above: Performed By: #### L 500.3400, L501.2450, L100.0100, L500.2500, L501.4020, L300.8000 #### [facility] [address] [place], [address] Mean corpuscular hemoglobin (MCH) determinationOrdered By: Alex Sheppard on 09-11-2024 MCH (RBC) [Entitic mass] 25.7 pg Low 27.0-32.0 [facility] Comment on above: Performed By: #### L 500.3400, L501.2450, L100.0100, L500.2500, L501.4020, L300.8000 #### [facility] [address] [place], [address] Mean corpuscular hemoglobin concentration (MCHC) determinationOrdered By: Alex Sheppard on 09-11-2024 MCHC (RBC) [Mass/Vol] 31.8 g/dL Low 32-36 [facility] Comment on above: Performed By: #### L 500.3400, L501.2450, L100.0100, L500.2500, L501.4020, L300.8000 #### [facility] [address] [place], [address] Mean platelet volume determi nationOrdered By: Alex Sheppard on 09-11-2024 Platelet mean volume (Bld) [Entitic vol] 8.6 fL Normal 6.2-12.0 [facility] Comment on above: Performed By: #### L 500.3400, L501.2450, L100.0100, L500.2500, L501.4020, L300.8000 #### [facility] [address] [place], [address] Microscopic analysis of urin e for red blood cells (RBC)Ordered By: Alex Sheppard on 09-11-2024 Microscopic analysis of urine for red blood cells (RBC) 0-5 SEEN /hpf 0-5 [facility] Urine RBC 0-5 SEEN /hpf 0-5 [facility] Monocyte percentageOrdered B y: Alex Sheppard on 09-11-2024 Monocytes/100 WBC (Bld) 8.6 % Normal 0-[address] [facility] Comment on above: Performed By: #### L 500.3400, L501.2450, L100.0100, L500.2500, L501.4020, L300.8000 #### [facility] [address], [place], [id number] (176) Mucus LM Ql (Urine sed)Order ed By: Alex Sheppard on 09-11-2024 Mucus Ql (Urine sed) RARE /hpf [facility] Neutrophil percentageOrdered By: Alex Sheppard on 09-11-2024 Neutrophils/100 WBC (Bld) 66.2 % Normal 47-70 [facility] Comment on above: Performed By: #### L 500.3400, L501.2450, L100.0100, L500.2500, L501.4020, L300.8000 #### [facility] [address], [place], [id number] Nitrite Test strip Ql (U)Ord ered By: Alex Sheppard on 09-11-2024 Nitrite Ql (U) Positive High Negative [facility] Nucleated red blood cell per centageOrdered By: Alex Sheppard on 09-11-2024 Nucleated RBC/100 WBC (Bld) [Ratio] 0 % 0-5 [facility] Pelvis WITH IV Contraston Pelvis WITH IV Contrast [facility] Imaging Services [address] [place], [place] [address] Pelvis WITH IV Contrast MR#: [id number] Acct: [id number] Name: BAUTISTA RUFFIN Rep #: [id number] : 1960 Rylee 64 From: Nino Figueroa MD PCP: [facility] Status: REG ER Study: Pelvis WITH IV Contrast Date of Exam: 09/11/24 Exam# [id number] Ordering Dr: Alex Sheppard TECHNOLOGY PROJECT MANAGER-C PROCEDURE: PELVIS WITH IV CONTRAST REASON FOR [...] ischium bilaterally but no abscess. Reading Location: [facility] CC: MARCOS Sheppard; [facility] Straight Line Edger: Signed Normal [facility] Platelet countOrdered By: Aicha Sheppard on 09-11-2024 Platelets (Bld) [#/Vol] 371 10*3/uL Normal 150-450 [facility] Comment on above: Performed By: #### L 500.3400, L501.2450, L100.0100, L500.2500, L501.4020, L300.8000 #### [facility] [address] [place], [place], [id number] Potassium measurement (mass/ volume)Ordered By: Alex Sheppard on 09-11-2024 Potassium [Moles/Vol] 4.1 mmol/L Normal 3.3-5.1 [facility] Comment on above: Performed By: #### L 500.3400, L501.2450, L100.0100, L500.2500, L501.4020, L300.8000 #### [facility] [address] [place], [address] Potassium (Unsp spec) [Mass/Vol] 4.1 mmol/L 3.3-5.1 [facility] Protein Test strip Ql (U)Ord ered By: Alex Sheppard on 09-11-2024 Protein Ql (U) 15 mg/dl High Negative [facility] Prothrombin Time w/INRon INR Coag (PPP) [Relative time] 1.0 {INR} Normal [facility] Comment on above: Performed By: #### L 500.3400, L501.2450, L100.0100, L500.2500, L501.4020, L300.8000 #### [facility] [address] [place], [address] Prothrombin timeOrdered By: Alex Sheppard on 09-11-2024 PT Coag (PPP) [Time] 13.7 s Normal 11.7-14.9 [facility] Comment on above: Performed By: #### L 500.3400, L501.2450, L100.0100, L500.2500, L501.4020, L300.8000 #### [facility] [address] [place], [address] Serum creatinine measurement (mass/volume)Ordered By: Alex Sheppard on 09-11-2024 Creatinine [Mass/Vol] 0.75 mg/dL Normal 0.70-1.20 [facility] Comment on above: Performed By: #### L 500.3400, L501.2450, L100.0100, L500.2500, L501.4020, L300.8000 #### [facility] [address] [place], [address] Serum globulin measurementOr dered By: Alex Sheppard on 09-11-2024 Globulin (S) [Mass/Vol] 3.9 g/dL Normal 2.2-4.2 [facility] Comment on above: Performed By: #### L 500.3400, L501.2450, L100.0100, L500.2500, L501.4020, L300.8000 #### [facility] [address] [place], [address] Serum glucose measurement (m ass/volume)Ordered By: Alex Sheppard on 09-11-2024 Glucose [Mass/Vol] 123 mg/dL High 70-99 [facility] Comment on above: Performed By: #### L 500.3400, L501.2450, L100.0100, L500.2500, L501.4020, L300.8000 #### [facility] [address], [address] Serum or plasma alanine hooper otransferase (ALT) measurementOrdered By: Alex Sheppard on 09-11-2024 ALT [Catalytic activity/Vol] 19 U/L Normal <=46 [facility] Comment on above: Performed By: #### L 500.3400, L501.2450, L100.0100, L500.2500, L501.4020, L300.8000 #### [facility] [address] [place], [address] Serum or plasma albumin shantal urement (mass/volume)Ordered By: Alex Sheppard on 09-11-2024 Albumin [Mass/Vol] 3.0 g/dL Low 3.4-4.8 [facility] Comment on above: Performed By: #### L 500.3400, L501.2450, L100.0100, L500.2500, L501.4020, L300.8000 #### [facility] [address] [facility] [facility], [address] Serum or plasma albumin/glob ulin mass ratioOrdered By: Alex Sheppard on 09-11-2024 Albumin/Globulin [Mass ratio] 0.8 {ratio} Low 0.9-2.4 [facility] Comment on above: Performed By: #### L 500.3400, L501.2450, L100.0100, L500.2500, L501.4020, L300.8000 #### [facility] [address] [place], [place], [id number] Serum or plasma alkaline radha sphatase measurementOrdered By: Alex Sheppard on 09-11-2024 ALP [Catalytic activity/Vol] 146 U/L High 40-129 [facility] Serum or plasma calcium shantal urement (mass/volume)Ordered By: Alex Sheppard on 09-11-2024 Calcium [Mass/Vol] 8.9 mg/dL Normal 7.6-11.0 [facility] Comment on above: Performed By: #### L 500.3400, L501.2450, L100.0100, L500.2500, L501.4020, L300.8000 #### [facility] [address] [place], [place], [id number] Serum or plasma urea nitroge n measurement (mass/volume)Ordered By: Alex Sheppard on 09-11-2024 Urea nitrogen [Mass/Vol] 15 mg/dL Normal 4-19 [facility] Comment on above: Performed By: #### L 500.3400, L501.2450, L100.0100, L500.2500, L501.4020, L300.8000 #### [facility] [address] [place], [place], [id number] Sodium levelOrdered By: Alex Sheppard on 09-11-2024 Sodium [Moles/Vol] 139 mmol/L Normal 133-145 [facility] Comment on above: Performed By: #### L 500.3400, L501.2450, L100.0100, L500.2500, L501.4020, L300.8000 #### [facility] [address] [place], [place], [id number] Squamous epithelial cells de tection in urine sediment by light microscopyOrdered By: Alex Sheppard on 09-11-2024 Epithelial cells.squamous LM Ql (Urine sed) 0 SEEN /hpf 0-5 [facility] Total proteinOrdered By: Luz Sheppard on 09-11-2024 Protein [Mass/Vol] 6.8 g/dL 5.9-8.4 [facility] Urinalysis, Completeon 09-11 BACTERIA 2+ /hpf Normal None Seen [facility] Comment on above: Order Comment: GOOD TER SPECIMEN Performed By: #### M 100.2000, M100.2200, M100.3000, L400.0001 ####[facility] [address] [place], [address] CA OX CRYSTAL RARE Normal [facility] Comment on above: Order Comment: GOOD TER SPECIMEN Performed By: #### M 100.1999, M100.2200, M100.3000, L400.0001 ####[facility] [address] [place], [address] Mucus Ql (Urine sed) RARE Normal [facility] Comment on above: Order Comment: GOOD TER SPECIMEN Performed By: #### M 100.1999, M100.2200, M100.3000, L400.0001 ####[facility] [address] [place], [address] RBC 0-5 SEEN Normal 0-5 [facility] Comment on above: Order Comment: GOOD TER SPECIMEN Performed By: #### M 100.1999, M100.2200, M100.3000, L400.0001 ####[facility] [address] [place], [address] WBC 5-10 SEEN Normal 0-5 [facility] Comment on above: Order Comment: GOOD TER SPECIMEN Performed By: #### M 100.1999, M100.2200, M100.3000, L400.0001 ####[facility] [address] [place], [address] EPI,SQUAMOUS 0 SEEN Normal 0-5 [facility] Comment on above: Order Comment: GOOD TER SPECIMEN Performed By: #### M 100.1999, M100.2200, M100.3000, L400.0001 ####[facility] [address] [place], [address] Urine blood detectionOrdered By: Alex Sheppard on 09-11-2024 Urine Occult Blood 10 /ul High Negative [facility] Urine clarityOrdered By: Luz Sheppard on 09-11-2024 Clarity (U) Clear Clear [facility] Urine color determinationOrd ered By: Alex Sheppard on 09-11-2024 Color (U) Yellow Yellow [facility] Urine cultureOrdered By: Luz Sheppard on 09-11-2024 Bacteria identified Cx Nom (U) Pseudomonas aeruginosa Abnormal [facility] Urine glucose detectionOrder ed By: Alex Sheppard on 09-11-2024 Glucose Ql (U) Normal mg/dl Normal [facility] Urine leukocyte esterase det ection by dipstickOrdered By: Alex Sheppard on 09-11-2024 Leukocyte esterase Test strip Ql (U) 100 /ul High Negative [facility] Urine pHOrdered By: Alex juares on 09-11-2024 pH (U) 6.0 [pH] 5.0 - 8.0 [facility] [facility] Urine sediment bacteria coun t by microscopy (number/high power field)Ordered By: Alex Sheppard on 09-11-2024 Bacteria LM.HPF (Urine sed) [#/Area] 2 /[HPF] None Seen [facility] Urine specific gravity measu rementOrdered By: Alex Sheppard on 09-11-2024 Specific gravity (U) [Rel density] 1.015 1.002-1.03 0 [facility] Urine urobilinogen measureme ntOrdered By: Alex Sheppard on 09-11-2024 Urobilinogen Ql (U) Normal mg/dl Normal [facility] Urobilinogen Ql (U)Ordered B y: Alex Sheppard on 09-11-2024 Urine Urobilinogen Normal mg/dl Normal [facility] White blood cell (WBC) count Ordered By: Alex Sheppard on 09-11-2024 WBC (Bld) [#/Vol] 11.6 10*3/uL High 4.4-11.0 [facility] Comment on above: Performed By: #### L 500.3400, L501.2450, L100.0100, L500.2500, L501.4020, L300.8000 #### [facility] [address] [place], [address] White blood cell countOrdere d By: Alex Sheppard on 09-11-2024 Urine WBC 5-10 SEEN /hpf 0-5 [facility] White blood cell count 5-10 SEEN /hpf 0-5 [facility] Absolute lymphocyte countOrd ered By: Rico Moore on 07-14-2024 Lymphocytes Auto (Unsp spec) [#/Vol] 2.44 10*3/uL 0.83-4.51 [facility] Absolute neutrophil countOrd ered By: Rico Moore on 07-14-2024 Neutrophils (Bld) [#/Vol] 9.1 10*3/uL High 2.0-7.7 [facility] Automated lymphocyte count a s percentage of total leukocytesOrdered By: Rico Moore on 07-14-2024 Lymphocytes/100 WBC Auto (Unsp spec) 19.4 % 19-41 [facility] Bacteria LM.HPF (Urine sed) [#/Area]Ordered By: Rico Moore on 07-14-2024 Urine Bacteria RARE /hpf None Seen [facility] Basic Metabolic Profile (BMP )on 07-14-2024 BUN/CRE 21.2 RATIO High 10-20 [facility] Comment on above: Performed By: #### L 500.3400, L501.2450, L100.0100, L500.2500, L501.4020, L300.8000 #### [facility] [address] [place], [address] CA,Total 9.5 mg/dL Normal 8.5-10.1 [facility] Comment on above: Performed By: #### L 500.3400, L501.2450, L100.0100, L500.2500, L501.4020, L300.8000 #### [facility] [address] [place], [address] Chloride [Moles/Vol] 103 mmol/L Normal 98-107 [facility] Comment on above: Performed By: #### L 500.3400, L501.2450, L100.0100, L500.2500, L501.4020, L300.8000 #### [facility] [address] [place], [address] CO2 [Moles/Vol] 26.0 mmol/L Normal 21.0-32.0 [facility] Comment on above: Performed By: #### L 500.3400, L501.2450, L100.0100, L500.2500, L501.4020, L300.8000 #### [facility] [address] [place], [address] Creatinine [Mass/Vol] 0.66 mg/dL Low 0.70-1.30 [facility] Comment on above: Result Comment: The validity of the calculated GFR GFRAA in patients over 70 years has not been determined. Clinical correlation is essential. Performed By: #### L 500.3400, L501.2450, L100.0100, L500.2500, L501.4020, L300.8000 #### [facility] [address] [place], [address] ECRCL 125.25 ml/min Normal [facility] Comment on above: Performed By: #### L 500.3400, L501.2450, L100.0100, L500.2500, L501.4020, L300.8000 #### [facility] [address] [place], [address] EST GFR - AA 156 mL/min Normal >60 [facility] Comment on above: Result Comment: Afri can Ivorian GFR Calc Performed By: #### L 500.3400, L501.2450, L100.0100, L500.2500, L501.4020, L300.8000 #### [facility] [address] [place], [address] GAP 9 Normal 5-15 [facility] Comment on above: Performed By: #### L 500.3400, L501.2450, L100.0100, L500.2500, L501.4020, L300.8000 #### [facility] [address] [place], [address] GFR/1.73 sq M.predicted among non-blacks MDRD (S/P/Bld) [Vol rate/Area] 129 mL/min/{1.73_m2} Normal >[address] [facility] Comment on above: Result Comment: Non- GFR Calc Performed By: #### L 500.3400, L501.2450, L100.0100, L500.2500, L501.4020, L300.8000 #### [facility] [address] [place], [address] Glucose [Mass/Vol] 110 mg/dL High 74-106 [facility] Comment on above: Result Comment: Fast ing Glucose result from 100 to 125 mg/dL suggests IMPAIRED HOMEOSTASIS per A.D.A. criteria. Performed By: #### L 500.3400, L501.2450, L100.0100, L500.2500, L501.4020, L300.8000 #### [facility] [address] [place], [address] Potassium [Moles/Vol] 3.6 mmol/L Normal 3.5-5.1 [facility] Comment on above: Performed By: #### L 500.3400, L501.2450, L100.0100, L500.2500, L501.4020, L300.8000 #### [facility] [address] [place], [address] Sodium [Moles/Vol] 139 mmol/L Normal 136-145 [facility] Comment on above: Performed By: #### L 500.3400, L501.2450, L100.0100, L500.2500, L501.4020, L300.8000 #### [facility] [address] [place], [address] Urea nitrogen [Mass/Vol] 14 mg/dL Normal 7-18 [facility] Comment on above: Performed By: #### L 500.3400, L501.2450, L100.0100, L500.2500, L501.4020, L300.8000 #### [facility] [address] [place], [address] Basophil percentageOrdered B y: Rico Moore on 07-14-2024 Basophils/100 WBC (Bld) 0.6 % 0-[address] [facility] Bilirubin Test strip Ql (U)O rdered By: Rico Moore on 07-14-2024 Bilirubin Ql (U) Negative Negative [facility] Bilirubin directOrdered By: Rico Moore on 07-14-2024 Bilirubin.direct [Mass/Vol] 0.13 mg/dL 0.00-0.3 0 [facility] Bilirubin, totalOrdered By: Rico Moore on 07-14-2024 Bilirubin [Mass/Vol] 0.30 mg/dL 0.20-1.00 [facility] Comment on above: For patients on eltr ombopag therapy, use of Dimension Dawson TBIL is not recommended. Blood urea nitrogen (BUN)/cr eatinine ratioOrdered By: Rico Moore on 07-14-2024 Urea nitrogen/Creatinine [Mass ratio] 21.2 mg/mg High 10-20 [facility] CBC W/Diff, Automatedon 06-29 Absolute Lymph 2.44 X10 3/uL Normal 0.83-4.51 [facility] Comment on above: Performed By: #### L 500.3400, L501.2450, L100.0100, L500.2500, L501.4020, L300.8000 #### [facility] [address] [place], [address] Absolute Neut 9.1 X10 3/uL High 2.0-7.7 [facility] Comment on above: Performed By: #### L 500.3400, L501.2450, L100.0100, L500.2500, L501.4020, L300.8000 #### [facility] [address] [place], [address] Basophils/100 WBC (Bld) 0.6 % Normal 0-[address] [facility] Comment on above: Performed By: #### L 500.3400, L501.2450, L100.0100, L500.2500, L501.4020, L300.8000 #### [facility] [address] [place], [address] Eosinophils/100 WBC (Bld) 1.4 % Normal 0-5 [facility] Comment on above: Performed By: #### L 500.3400, L501.2450, L100.0100, L500.2500, L501.4020, L300.8000 #### [facility] [address] [place], [address] Erythrocyte distribution width (RBC) [Ratio] 15.9 % High 11.6-14.6 [facility] Comment on above: Performed By: #### L 500.3400, L501.2450, L100.0100, L500.2500, L501.4020, L300.8000 #### [facility] [address] [place], [address] Hematocrit (Bld) [Volume fraction] 42.8 % Normal 40-54 [facility] Comment on above: Performed By: #### L 500.3400, L501.2450, L100.0100, L500.2500, L501.4020, L300.8000 #### [facility] [address] [place], [address] Hemoglobin (Bld) [Mass/Vol] 14.0 g/dL Normal 13.0-16. 5 [facility] Comment on above: Performed By: #### L 500.3400, L501.2450, L100.0100, L500.2500, L501.4020, L300.8000 #### [facility] [address] [place], [address] IG% 0.600 Normal 0.0-0.9 [facility] Comment on above: Result Comment: IG% - Immature Granulocytes (promyelocytes, myelocytes and metamyelocytes) > 1% indicates that a LEFT SHIFT is Present. Performed By: #### L 500.3400, L501.2450, L100.0100, L500.2500, L501.4020, L300.8000 #### [facility] [address] [place], [address] Lymphocytes/100 WBC (Bld) 19.4 % Normal 19-41 [facility] Comment on above: Performed By: #### L 500.3400, L501.2450, L100.0100, L500.2500, L501.4020, L300.8000 #### [facility] [address] [place], [address] MCH (RBC) [Entitic mass] 27.1 pg Normal 27.0-32.0 [facility] Comment on above: Performed By: #### L 500.3400, L501.2450, L100.0100, L500.2500, L501.4020, L300.8000 #### [facility] [address] [place], [address] MCHC (RBC) [Mass/Vol] 32.7 g/dL Normal 32-36 [facility] Comment on above: Performed By: #### L 500.3400, L501.2450, L100.0100, L500.2500, L501.4020, L300.8000 #### [facility] [address] [place], [address] MCV (RBC) [Entitic vol] 82.8 fL Normal 80-[address] [facility] Comment on above: Performed By: #### L 500.3400, L501.2450, L100.0100, L500.2500, L501.4020, L300.8000 #### [facility] [address] [place], [address] Monocytes/100 WBC (Bld) 5.9 % Normal 0-[address] [facility] Comment on above: Performed By: #### L 500.3400, L501.2450, L100.0100, L500.2500, L501.4020, L300.8000 #### [facility] [address] [place], [address] Neutrophils/100 WBC (Bld) 72.1 % High 47-70 [facility] Comment on above: Performed By: #### L 500.3400, L501.2450, L100.0100, L500.2500, L501.4020, L300.8000 #### [facility] [address] [place], [address] Nucleated RBC (Bld) [#/Vol] 0 10*3/uL Normal 0-5 [facility] Comment on above: Performed By: #### L 500.3400, L501.2450, L100.0100, L500.2500, L501.4020, L300.8000 #### [facility] [address] [place], [address] Platelet mean volume (Bld) [Entitic vol] 8.9 fL Normal 6.2-12.0 [facility] Comment on above: Performed By: #### L 500.3400, L501.2450, L100.0100, L500.2500, L501.4020, L300.8000 #### [facility] [address] [place], [address] Platelets (Bld) [#/Vol] 487 10*3/uL High 150-450 [facility] Comment on above: Performed By: #### L 500.3400, L501.2450, L100.0100, L500.2500, L501.4020, L300.8000 #### [facility] [address] [place], [address] RBC (Bld) [#/Vol] 5.17 10*6/uL Normal 4.6-6.2 [facility] Comment on above: Performed By: #### L 500.3400, L501.2450, L100.0100, L500.2500, L501.4020, L300.8000 #### [facility] [address] [place], [address] RDW SD 47.8 fl High 35.1-43.9 [facility] Comment on above: Performed By: #### L 500.3400, L501.2450, L100.0100, L500.2500, L501.4020, L300.8000 #### [facility] [address] [place], [address] WBC (Bld) [#/Vol] 12.6 10*3/uL High 4.4-11.0 [facility] Comment on above: Performed By: #### L 500.3400, L501.2450, L100.0100, L500.2500, L501.4020, L300.8000 #### [facility] [address] [place], [address] Calcium oxalate crystals LM Ql (Urine sed)Ordered By: Rico Moore on 07-14-2024 Urine Calcium Oxalate Crystals RARE /hpf [facility] Calcium oxalate crystals det ection in urine sediment by light microscopyOrdered By: Rico Moore on 07-14-2024 Calcium oxalate crystals LM Ql (Urine sed) RARE /hpf [facility] Carbon dioxide measurementOr dered By: Rico Moore on 07-14-2024 CO2 [Moles/Vol] 26.0 mmol/L 21.0-32.0 [facility] Chest 1 View (Portable)on Chest 1 View (Portable) [facility] Imaging Services [address] [place] [address] Chest 1 View (Portable) MR#: [id number] Acct: [id number] Name: BAUTISTA RUFFIN Rep #: [id number] : 1960 M 64 From: Keyla Yeboah nd, MD PCP: [facility] Status: REG ER Study: Chest 1 View (Portable) Date of Exam: 07/14/24 Exam# [id number] Ordering Dr: Rico Moore DO PROCEDURE: CHEST [...] No pleural effusion or pneumothorax. Reading Location: [facility] CC: Dr. Rico Moore DO; [facility] Straight Line Edger: Signed Normal [facility] Chloride measurementOrdered By: Rico Moore on 07-14-2024 Chloride [Moles/Vol] 103 mmol/L 98-107 [facility] Emergency Department Summary on 07-14-2024 Emergency Department Summary [facility] Medical Records Department [address] [place] [address] Emergency Department Summary 07/14/24 MR#: [id number] Acct: [id number] Name: BAUTISTA RUFFIN Rep #: [id number] : 1960 64 From: Rico Moore DO [...] for sleep. He states he sees the [facility] for primary care. Yesterday he tested negative for COVID influenza RSV. Pneumonia was noted on CT scanning to be retrocardiac. [facility] Medical History Sacral decubitus ulcer, stage III Atherosclerotic heart disease of [place] coronary artery without angina pectoris Depression Chronic [...] of colostom (more content not included)... Normal [facility] Eosinophil percentageOrdered By: Rico Moore on 07-14-2024 Eosinophils/100 WBC (Bld) 1.4 % 0-5 [facility] Epithelial cells.squamous LM Ql (Urine sed)Ordered By: Rico Moore on 07-14-2024 Epithelial cells.squamous LM.HPF (Urine sed) [#/Area] 0 /[HPF] 0-5 [facility] Erythrocyte distribution wid th (RBC) [Ratio]Ordered By: Rico Moore on 07-14-2024 Erythrocyte distribution width (RBC) [Entitic vol] 47.8 fL High 35.1-43.9 [facility] Erythrocyte distribution wid th ratioOrdered By: Rico Moore on 07-14-2024 Erythrocyte distribution width (RBC) [Ratio] 15.9 % High 11.6-14.6 [facility] Erythrocyte distribution wid th standard deviationOrdered By: Rico Moore on 07-14-2024 Erythrocyte distribution width (RBC) [Ratio] 47.8 fl High 35.1-43.9 [facility] Estimated glomerular filtrat ion rate (GFR) AmericanOrdered By: Rico Moore on 07-14-2024 Estimated GFR (MDRD) Amer 156 mL/min >60 [facility] Comment on above: GFR Calc Estimation of creatinine elzbieta aranceOrdered By: Rico Moore on 07-14-2024 Estimated Creatinine Clearance Calc 125.25 ml/min [facility] Glomerular filtration rate ( GFR) estimationOrdered By: Rico Moore on 07-14-2024 Estimated GFR (MDRD) Non-Af Amer 129 mL/min >60 [facility] Comment on above: Non- GFR Calc GFR/1.73 sq M.predicted among non-blacks MDRD (S/P/Bld) [Vol rate/Area] 129 mL/min/{1.73_m2} >[address] [facility] Comment on above: Non- GFR Calc Glucose Ql (U)Ordered By: Thomas Moore on 07-14-2024 Urine Glucose (UA) Normal mg/dl Normal [facility] Glucose measurementOrdered B y: Rico Moore on 07-14-2024 Glucose [Mass/Vol] 110 mg/dL High 74-106 [facility] Comment on above: Fasting Glucose resu lt from 100 to 125 mg/dL suggests IMPAIRED HOMEOSTASIS per A.D.A. criteria. Hematocrit Auto (Bld) [Volum e fraction]Ordered By: Rico Moore on 07-14-2024 Hematocrit (Bld) [Volume fraction] 42.8 % 40-54 [facility] Hemoglobin measurementOrdere d By: Rico Moore on 07-14-2024 Hemoglobin (Bld) [Mass/Vol] 14.0 g/dL 13.0-16. 5 [facility] Immature granulocytes/100 WB C Auto (Bld)Ordered By: Rico Moore on 07-14-2024 Immature granulocytes/100 WBC (Bld) 0.600 % 0.0-0.9 [facility] Comment on above: IG% - Immature Granu locytes (promyelocytes, myelocytes and metamyelocytes) > 1% indicates that a LEFT SHIFT is Present. Ketones Test strip Ql (U)Ord ered By: Rico Moore on 07-14-2024 Ketones Ql (U) 150 mg/dl Abnormal Negative [facility] Comment on above: CRITICAL VALUE *HCAL LED TO GEORGE BARONE07/14/24 0758 Erica Bianchi.RESULTS READ BACK BY SAME. Laboratory - Chemistry and C hemistry - challengeOrdered By: Rico Moore on 07-14-2024 AST [Catalytic activity/Vol] 20 U/L 15-37 [facility] Lipaseon 07-14-2024 Lipase [Catalytic activity/Vol] 20 U/L Low 73-393 [facility] Comment on above: Performed By: #### L 500.3400, L501.2450, L100.0100, L500.2500, L501.4020, L300.8000 #### [facility] [address] [place], [address] Lipase measurementOrdered By : Rico Moore on 07-14-2024 Lipase [Catalytic activity/Vol] 20 U/L Low 73-393 [facility] Liver Profileon 07-14-2024 Albumin [Mass/Vol] 2.5 g/dL Low 3.2-5.0 [facility] Comment on above: Performed By: #### L 500.3400, L501.2450, L100.0100, L500.2500, L501.4020, L300.8000 #### [facility] [address] [place], [address] ALK P 117 U/L Normal 45-117 [facility] Comment on above: Performed By: #### L 500.3400, L501.2450, L100.0100, L500.2500, L501.4020, L300.8000 #### [facility] [address] [place], [address] ALT [Catalytic activity/Vol] 19 U/L Normal 16-61 [facility] Comment on above: Performed By: #### L 500.3400, L501.2450, L100.0100, L500.2500, L501.4020, L300.8000 #### [facility] [address] [place], [address] AST [Catalytic activity/Vol] 20 U/L Normal 15-37 [facility] Comment on above: Performed By: #### L 500.3400, L501.2450, L100.0100, L500.2500, L501.4020, L300.8000 #### [facility] [address] [place], [address] Bilirubin [Mass/Vol] 0.30 mg/dL Normal 0.20-1.00 [facility] Comment on above: Result Comment: For patients on eltrombopag therapy, use of Dimension Dawson TBIL is not recommended. Performed By: #### L 500.3400, L501.2450, L100.0100, L500.2500, L501.4020, L300.8000 #### [facility] [address] [place], [address] Bilirubin.direct [Mass/Vol] 0.13 mg/dL Normal 0.00-0.3 0 [facility] Comment on above: Performed By: #### L 500.3400, L501.2450, L100.0100, L500.2500, L501.4020, L300.8000 #### [facility] [address] [place], [address] Globulin (S) [Mass/Vol] 5.2 g/dL High 2.2-4.[address] [facility] Comment on above: Performed By: #### L 500.3400, L501.2450, L100.0100, L500.2500, L501.4020, L300.8000 #### [facility] [address] [place], [address] T PROT 7.7 g/dL Normal 6.4-8.2 [facility] Comment on above: Performed By: #### L 500.3400, L501.2450, L100.0100, L500.2500, L501.4020, L300.8000 #### [facility] [address] [place], [address] Lymphocytes Auto (Unsp spec) [#/Vol]Ordered By: Rico Moore on 07-14-2024 Lymphocytes (Bld) [#/Vol] 2.44 10*3/uL 0.83-4.5 1 [facility] Lymphocytes/100 WBC Auto (Un sp spec)Ordered By: Rico Moore on 07-14-2024 Lymphocytes/100 WBC (Bld) 19.4 % 19-41 [facility] MCV (mean corpuscular volume ) determinationOrdered By: Rico Moore on 07-14-2024 MCV (RBC) [Entitic vol] 82.8 fL 80-[address] [facility] Mean corpuscular hemoglobin (MCH) determinationOrdered By: Rico Moore on 07-14-2024 MCH (RBC) [Entitic mass] 27.1 pg 27.0-32.0 [facility] Mean corpuscular hemoglobin concentration (MCHC) determinationOrdered By: Rico Moore on 07-14-2024 MCHC (RBC) [Mass/Vol] 32.7 g/dL 32-36 [facility] Mean platelet volume determi nationOrdered By: Rico Moore on 07-14-2024 Platelet mean volume (Bld) [Entitic vol] 8.9 fL 6.2-12.0 [facility] Microscopic analysis of urin e for red blood cells (RBC)Ordered By: Rico Moore on 07-14-2024 Microscopic analysis of urine for red blood cells (RBC) 0 SEEN /hpf 0-5 [facility] Urine RBC 0 SEEN /hpf 0-5 [facility] Monocyte percentageOrdered B y: Rico Moore on 07-14-2024 Monocytes/100 WBC (Bld) 5.9 % 0-[address] [facility] Mucus LM Ql (Urine sed)Order ed By: Rico Moore on 07-14-2024 Mucus Ql (Urine sed) 0 SEEN /hpf [facility] Neutrophil percentageOrdered By: Rico Moore on 07-14-2024 Neutrophils/100 WBC (Bld) 72.1 % High 47-70 [facility] Nitrite Test strip Ql (U)Ord ered By: Rico Moore on 07-14-2024 Nitrite Ql (U) Positive High Negative [facility] Nucleated red blood cell per centageOrdered By: Rico Moore on 07-14-2024 Nucleated RBC/100 WBC (Bld) [Ratio] 0 % 0-5 [facility] Platelet countOrdered By: Thomas Moore on 07-14-2024 Platelets (Bld) [#/Vol] 487 10*3/uL High 150-450 [facility] Potassium measurementOrdered By: Rico Moore on 07-14-2024 Potassium [Moles/Vol] 3.6 mmol/L 3.5-5.1 [facility] Protein Test strip Ql (U)Ord ered By: Rico Moore on 07-14-2024 Protein Ql (U) 100 mg/dl High Negative [facility] RBC Auto (Bld) [#/Vol]Ordere d By: Rico Moore on 07-14-2024 RBC (Bld) [#/Vol] 5.17 10*6/uL 4.6-6.2 [facility] Serum anion gap measurementO rdered By: Rico Moore on 07-14-2024 Anion gap [Moles/Vol] 9 mmol/L 5-15 [facility] Serum globulin measurementOr dered By: Rico Moore on 07-14-2024 Globulin (S) [Mass/Vol] 5.2 g/dL High 2.2-4.[address] [facility] Serum or plasma alanine hooper otransferase (ALT) measurementOrdered By: Rico Moore on 07-14-2024 ALT [Catalytic activity/Vol] 19 U/L 16-61 [facility] Serum or plasma albumin shantal urement (mass/volume)Ordered By: Rico Moore on 07-14-2024 Albumin [Mass/Vol] 2.5 g/dL Low 3.2-5.0 [facility] Serum or plasma alkaline radha sphatase measurementOrdered By: Rico Moore on 07-14-2024 ALP [Catalytic activity/Vol] 117 U/L 45-117 [facility] Serum or plasma calcium shantal urement (mass/volume)Ordered By: Rico Moore on 07-14-2024 Calcium [Mass/Vol] 9.5 mg/dL 8.5-10.1 [facility] Serum or plasma creatinine m easurement (mass/volume)Ordered By: Rico Moore on 07-14-2024 Creatinine [Mass/Vol] 0.66 mg/dL Low 0.70-1.30 [facility] Comment on above: The validity of the calculated GFR & GFRAA in patients over 70 years has not been determined. Clinical correlation is essential. Serum or plasma urea nitroge n measurement (mass/volume)Ordered By: Rico Moore on 07-14-2024 Urea nitrogen [Mass/Vol] 14 mg/dL 7-18 [facility] Sodium levelOrdered By: Bhaskar Moore on 07-14-2024 Sodium [Moles/Vol] 139 mmol/L 136-145 [facility] Squamous epithelial cells de tection in urine sediment by light microscopyOrdered By: Rico Moore on 07-14-2024 Epithelial cells.squamous LM Ql (Urine sed) 0-5 SEEN /hpf 0-5 [facility] Total proteinOrdered By: Charles Moroe on 07-14-2024 Protein [Mass/Vol] 7.7 g/dL 6.4-8.2 [facility] Urinalysis, Completeon 07-14 RBC 0 SEEN Normal 0-5 [facility] Comment on above: Order Comment: 'TROP ' Serial specimen #1, #2 or #3: 1 Performed By: #### L 500.3400, L501.2450, L100.0100, L500.2500, L501.4020, L300.8000 #### [facility] [address] [place], [address] BACTERIA RARE Normal None Seen [facility] Comment on above: Order Comment: 'TROP ' Serial specimen #1, #2 or #3: 1 Performed By: #### L 500.3400, L501.2450, L100.0100, L500.2500, L501.4020, L300.8000 #### [facility] [address] [place], [address] CA OX CRYSTAL RARE Normal [facility] Comment on above: Order Comment: 'TROP ' Serial specimen #1, #2 or #3: 1 Performed By: #### L 500.3400, L501.2450, L100.0100, L500.2500, L501.4020, L300.8000 #### [facility] [address] [place], [address] EPI,SQUAMOUS 0-5 SEEN Normal 0-5 [facility] Comment on above: Order Comment: 'TROP ' Serial specimen #1, #2 or #3: 1 Performed By: #### L 500.3400, L501.2450, L100.0100, L500.2500, L501.4020, L300.8000 #### [facility] [address] [place], [address] WBC >100 SEEN Normal 0-5 [facility] Comment on above: Order Comment: 'TROP ' Serial specimen #1, #2 or #3: 1 Performed By: #### L 500.3400, L501.2450, L100.0100, L500.2500, L501.4020, L300.8000 #### [facility] [address] [place], [address] Mucus Ql (Urine sed) 0 SEEN Normal [facility] Comment on above: Order Comment: 'TROP ' Serial specimen #1, #2 or #3: 1 Performed By: #### L 500.3400, L501.2450, L100.0100, L500.2500, L501.4020, L300.8000 #### [facility] [address] [place], [address] Urine blood detectionOrdered By: Rico Moore on 07-14-2024 Urine Occult Blood 50 /ul High Negative [facility] Urine clarityOrdered By: Charles Moore on 07-14-2024 Clarity (U) Cloudy Clear [facility] Urine color determinationOrd ered By: Rico Moore on 07-14-2024 Color (U) Yellow Yellow [facility] Urine glucose detectionOrder ed By: Rico Moore on 07-14-2024 Glucose Ql (U) Normal mg/dl Normal [facility] Urine leukocyte esterase det ection by dipstickOrdered By: Rico Moore on 07-14-2024 Leukocyte esterase Test strip Ql (U) 500 /ul High Negative [facility] Urine pHOrdered By: Rico vang on 07-14-2024 pH (U) 5.0 [pH] 5.0 - 8.0 [facility] Urine sediment bacteria coun t by microscopy (number/high power field)Ordered By: Rico Moore on 07-14-2024 Bacteria LM.HPF (Urine sed) [#/Area] RARE /hpf None Seen [facility] Urine specific gravity measu rementOrdered By: Rico Moore on 07-14-2024 Specific gravity (U) [Rel density] 1.025 1.002-1.03 0 [facility] Urine urobilinogen measureme ntOrdered By: Rico Moore on 07-14-2024 Urobilinogen Ql (U) Normal mg/dl Normal [facility] Urobilinogen Ql (U)Ordered B y: Rico Moore on 07-14-2024 Urine Urobilinogen Normal mg/dl Normal [facility] White blood cell (WBC) count Ordered By: Rico Moore on 07-14-2024 WBC (Bld) [#/Vol] 12.6 10*3/uL High 4.4-11.0 [facility] White blood cell countOrdere d By: Rico Moore on 07-14-2024 Urine WBC >100 SEEN /hpf 0-5 [facility] White blood cell count >100 SEEN /hpf 0-5 [facility] 12 Lead EKGon 07-13-2024 12 Lead EKG [facility] Services [address] [place] [address] 12 Lead EKG 07/13/24 0227 MR#: [id number] Acct: [id number] Name: BAUTISTA RUFFIN Rep #: [id number] : 1960 64 From: Zackary Costello MD [...] ECG Confirmed by NOEMI MARR, ALAN ([id number]), index editor AURORA FOURNIER ([id number]) on 07/15/2024 8:18:29 AM Referred By: JA Confirmed By: ALAN COSTELLO MD 07/15/24817 Date Zackary Costello MD CC: Richie Borden DO; [facility] Signed Normal [facility] Absolute lymphocyte countOrd ered By: Richie Borden on 07-13-2024 Lymphocytes Auto (Unsp spec) [#/Vol] 3.25 10*3/uL 0.83-4.51 [facility] Absolute neutrophil countOrd ered By: Richie Borden on 07-13-2024 Neutrophils (Bld) [#/Vol] 9.2 10*3/uL High 2.0-7.7 [facility] Automated lymphocyte count a s percentage of total leukocytesOrdered By: Richie Borden on 07-13-2024 Lymphocytes/100 WBC Auto (Unsp spec) 22.6 % 19-41 [facility] Basic Metabolic Profile (BMP )on 07-13-2024 BUN/CRE 17.5 RATIO Normal 10-20 [facility] Comment on above: Order Comment: 'TROP ' Serial specimen #1, #2 or #3: 1 Performed By: #### L 500.3400, L501.2450, L100.0100, L500.2500, L501.4020, L300.8000 #### [facility] [address] [place], [address] CA,Total 9.4 mg/dL Normal 8.5-10.1 [facility] Comment on above: Order Comment: 'TROP ' Serial specimen #1, #2 or #3: 1 Performed By: #### L 500.3400, L501.2450, L100.0100, L500.2500, L501.4020, L300.8000 #### [facility] [address] [place], [address] Chloride [Moles/Vol] 104 mmol/L Normal 98-107 [facility] Comment on above: Order Comment: 'TROP ' Serial specimen #1, #2 or #3: 1 Performed By: #### L 500.3400, L501.2450, L100.0100, L500.2500, L501.4020, L300.8000 #### [facility] [address] [place], [address] CO2 [Moles/Vol] 27.0 mmol/L Normal 21.0-32.0 [facility] Comment on above: Order Comment: 'TROP ' Serial specimen #1, #2 or #3: 1 Performed By: #### L 500.3400, L501.2450, L100.0100, L500.2500, L501.4020, L300.8000 #### [facility] [address] [place], [address] Creatinine [Mass/Vol] 0.63 mg/dL Low 0.70-1.30 [facility] Comment on above: Order Comment: 'TROP ' Serial specimen #1, #2 or #3: 1 Result Comment: The validity of the calculated GFR GFRAA in patients over 70 years has not been determined. Clinical correlation is essential. Performed By: #### L 500.3400, L501.2450, L100.0100, L500.2500, L501.4020, L300.8000 #### [facility] [address] [place], [address] ECRCL 120.02 ml/min Normal [facility] Comment on above: Order Comment: 'TROP ' Serial specimen #1, #2 or #3: 1 Performed By: #### L 500.3400, L501.2450, L100.0100, L500.2500, L501.4020, L300.8000 #### [facility] [address] [place], [address] EST GFR - AA 166 mL/min Normal >60 [facility] Comment on above: Order Comment: 'TROP ' Serial specimen #1, #2 or #3: 1 Result Comment: Afri can Ivorian GFR Calc Performed By: #### L 500.3400, L501.2450, L100.0100, L500.2500, L501.4020, L300.8000 #### [facility] [address] [place], [address] GAP 6 Normal 5-15 [facility] Comment on above: Order Comment: 'TROP ' Serial specimen #1, #2 or #3: 1 Performed By: #### L 500.3400, L501.2450, L100.0100, L500.2500, L501.4020, L300.8000 #### [facility] [address] [place], [place], [id number] ([address] GFR/1.73 sq M.predicted among non-blacks MDRD (S/P/Bld) [Vol rate/Area] 137 mL/min/{1.73_m2} Normal >[address] [facility] Comment on above: Order Comment: 'TROP ' Serial specimen #1, #2 or #3: 1 Result Comment: Non- GFR Calc Performed By: #### L 500.3400, L501.2450, L100.0100, L500.2500, L501.4020, L300.8000 #### [facility] [address] [place], [address] Glucose [Mass/Vol] 122 mg/dL High 74-106 [facility] Comment on above: Order Comment: 'TROP ' Serial specimen #1, #2 or #3: 1 Result Comment: Fast ing Glucose result from 100 to 125 mg/dL suggests IMPAIRED HOMEOSTASIS per A.D.A. criteria. Performed By: #### L 500.3400, L501.2450, L100.0100, L500.2500, L501.4020, L300.8000 #### [facility] [address] [place], [address] Potassium [Moles/Vol] 3.6 mmol/L Normal 3.5-5.1 [facility] Comment on above: Order Comment: 'TROP ' Serial specimen #1, #2 or #3: 1 Performed By: #### L 500.3400, L501.2450, L100.0100, L500.2500, L501.4020, L300.8000 #### [facility] [address] [place], [address] Sodium [Moles/Vol] 137 mmol/L Normal 136-145 [facility] Comment on above: Order Comment: 'TROP ' Serial specimen #1, #2 or #3: 1 Performed By: #### L 500.3400, L501.2450, L100.0100, L500.2500, L501.4020, L300.8000 #### [facility] [address] [place], [address] Urea nitrogen [Mass/Vol] 11 mg/dL Normal 7-18 [facility] Comment on above: Order Comment: 'TROP ' Serial specimen #1, #2 or #3: 1 Performed By: #### L 500.3400, L501.2450, L100.0100, L500.2500, L501.4020, L300.8000 #### [facility] [address] [place], [address] Basophil percentageOrdered B y: Richie Borden on 07-13-2024 Basophils/100 WBC (Bld) 0.5 % 0-[address] [facility] Bilirubin directOrdered By: Richie Borden on 07-13-2024 Bilirubin.direct [Mass/Vol] 0.15 mg/dL 0.00-0.3 0 [facility] Bilirubin, totalOrdered By: Richie Borden on 07-13-2024 Bilirubin [Mass/Vol] 0.30 mg/dL 0.20-1.00 [facility] Comment on above: For patients on eltr ombopag therapy, use of Dimension Dawson TBIL is not recommended. Blood urea nitrogen (BUN)/cr eatinine ratioOrdered By: Richie Borden on 07-13-2024 Urea nitrogen/Creatinine [Mass ratio] 17.5 mg/mg 10-20 [facility] CBC W/Diff, Automatedon 06-29 Absolute Lymph 3.25 X10 3/uL Normal 0.83-4.51 [facility] Comment on above: Performed By: #### L 500.3400, L501.2450, L100.0100, L500.2500, L501.4020, L300.8000 #### [facility] [address] [place], [address] Absolute Neut 9.2 X10 3/uL High 2.0-7.7 [facility] Comment on above: Performed By: #### L 500.3400, L501.2450, L100.0100, L500.2500, L501.4020, L300.8000 #### [facility] [address] [place], [address] Basophils/100 WBC (Bld) 0.5 % Normal 0-[address] [facility] Comment on above: Performed By: #### L 500.3400, L501.2450, L100.0100, L500.2500, L501.4020, L300.8000 #### [facility] [address] [place], [address] Eosinophils/100 WBC (Bld) 3.1 % Normal 0-5 [facility] Comment on above: Performed By: #### L 500.3400, L501.2450, L100.0100, L500.2500, L501.4020, L300.8000 #### [facility] [address] [place], [address] Erythrocyte distribution width (RBC) [Ratio] 15.9 % High 11.6-14.6 [facility] Comment on above: Performed By: #### L 500.3400, L501.2450, L100.0100, L500.2500, L501.4020, L300.8000 #### [facility] [address] [place], [address] Hematocrit (Bld) [Volume fraction] 43.8 % Normal 40-54 [facility] Comment on above: Performed By: #### L 500.3400, L501.2450, L100.0100, L500.2500, L501.4020, L300.8000 #### [facility] [address] [place], [address] Hemoglobin (Bld) [Mass/Vol] 14.2 g/dL Normal 13.0-16. 5 [facility] Comment on above: Performed By: #### L 500.3400, L501.2450, L100.0100, L500.2500, L501.4020, L300.8000 #### [facility] [address] [place], [address] IG% 0.400 Normal 0.0-0.9 [facility] Comment on above: Result Comment: IG% - Immature Granulocytes (promyelocytes, myelocytes and metamyelocytes) > 1% indicates that a LEFT SHIFT is Present. Performed By: #### L 500.3400, L501.2450, L100.0100, L500.2500, L501.4020, L300.8000 #### [facility] [address] [place], [address] Lymphocytes/100 WBC (Bld) 22.6 % Normal 19-41 [facility] Comment on above: Performed By: #### L 500.3400, L501.2450, L100.0100, L500.2500, L501.4020, L300.8000 #### [facility] [address] [place], [address] MCH (RBC) [Entitic mass] 26.8 pg Low 27.0-32.0 [facility] Comment on above: Performed By: #### L 500.3400, L501.2450, L100.0100, L500.2500, L501.4020, L300.8000 #### [facility] [address] [place], [address] MCHC (RBC) [Mass/Vol] 32.4 g/dL Normal 32-36 [facility] Comment on above: Performed By: #### L 500.3400, L501.2450, L100.0100, L500.2500, L501.4020, L300.8000 #### [facility] [address] [place], [address] MCV (RBC) [Entitic vol] 82.6 fL Normal 80-94 [facility] Comment on above: Performed By: #### L 500.3400, L501.2450, L100.0100, L500.2500, L501.4020, L300.8000 #### [facility] [address] [place], [address] Monocytes/100 WBC (Bld) 9.5 % Normal 0-10 [facility] Comment on above: Performed By: #### L 500.3400, L501.2450, L100.0100, L500.2500, L501.4020, L300.8000 #### [facility] [address] [place], [address] Neutrophils/100 WBC (Bld) 63.9 % Normal 47-70 [facility] Comment on above: Performed By: #### L 500.3400, L501.2450, L100.0100, L500.2500, L501.4020, L300.8000 #### [facility] [address] [place], [address] Nucleated RBC (Bld) [#/Vol] 0 10*3/uL Normal 0-5 [facility] Comment on above: Performed By: #### L 500.3400, L501.2450, L100.0100, L500.2500, L501.4020, L300.8000 #### [facility] [address] [place], [address] Platelet mean volume (Bld) [Entitic vol] 8.6 fL Normal 6.2-12.0 [facility] Comment on above: Performed By: #### L 500.3400, L501.2450, L100.0100, L500.2500, L501.4020, L300.8000 #### [facility] [address] [place], [address] Platelets (Bld) [#/Vol] 477 10*3/uL High 150-450 [facility] Comment on above: Performed By: #### L 500.3400, L501.2450, L100.0100, L500.2500, L501.4020, L300.8000 #### [facility] [address] [place], [address] RBC (Bld) [#/Vol] 5.30 10*6/uL Normal 4.6-6.2 [facility] Comment on above: Performed By: #### L 500.3400, L501.2450, L100.0100, L500.2500, L501.4020, L300.8000 #### [facility] [address] [place], [address] RDW SD 47.9 fl High 35.1-43.9 [facility] Comment on above: Performed By: #### L 500.3400, L501.2450, L100.0100, L500.2500, L501.4020, L300.8000 #### [facility] [address] [place], [address] WBC (Bld) [#/Vol] 14.4 10*3/uL High 4.4-11.0 [facility] Comment on above: Performed By: #### L 500.3400, L501.2450, L100.0100, L500.2500, L501.4020, L300.8000 #### [facility] [address] [place], [address] CTA Chest W/WO Contraston CTA Chest W/WO Contrast [facility] Imaging Services [address] [place] [address] CTA Chest W/WO Contrast MR#: [id number] Acct: [id number] Name: BAUTISTA RUFFIN Rep #: [id number] : 1960 M 64 From: Emile Bonner i, DO PCP: [facility] Status: REG ER Study: CTA Chest W/WO Contrast Date of Exam: 07/13/24 Exam# [id number] Ordering Dr: Richie Borden DO PROCEDURE: CT [...] use of iterative reconstruction technique). [facility] CC: Richie Borden DO; [facility] Straight Line Edger: Signed Normal [facility] Carbon dioxide measurementOr dered By: Richie Borden on 07-13-2024 CO2 [Moles/Vol] 27.0 mmol/L 21.0-32.0 [facility] Chest 1 View (Portable)on Chest 1 View (Portable) [facility] Imaging Services [address] [place] [id number] Chest 1 View (Portable) MR#: [id number] Acct: [id number] Name: BAUTISTA RUFFIN Rep #: [id number] : 1960 M 64 From: Emile Bonner i, DO PCP: [facility] Status: REG ER Study: Chest 1 View (Portable) Date of Exam: 07/13/24 Exam# [id number] Ordering Dr: Richie Borden DO PROCEDURE: Portable [...] to evaluate for metabolic activity. Reading [facility] CC: Richie Borden DO; [facility] Straight Line Edger: Signed Normal [facility] Chloride measurementOrdered By: Richie Borden on 07-13-2024 Chloride [Moles/Vol] 104 mmol/L 98-107 [facility] D-Dimer Quantitative (DVT/PE )on 07-13-2024 D-DIMER QUANT 0.88 FEU/ug/m Invalid Interpretation Code 0.27-0.49 [facility] Comment on above: Result Comment: D-Di rick ELEVATED (>0.49): Additional studies and clinical assessments are indicated to conclude diagnosis of: Deep Vein Thrombosis (DVT) or Pulmonary Embolism (PE) CRITICAL VALUE CALLED TO ABISAI CHASE 07/13/24 0417 Graham Osorio. RESULTS READ BACK BY SAME. Performed By: #### L 500.3400, L501.2450, L100.0100, L500.2500, L501.4020, L300.8000 #### [facility] [address] [place], [address] D-dimer measurement for deep venous thrombosisOrdered By: Richie Borden on 07-13-2024 D-Dimer Quantitative (PE/DVT) 0.88 FEU/ug/m High 0.27-0.49 [facility] Comment on above: D-Dimer ELEVATED (>0 .49): Additional studies and clinicalassessments are indicated to conclude diagnosis of:Deep Vein Thrombosis (DVT) or Pulmonary Embolism (PE)CRITICAL VALUE CALLED TO RN [facility]07/13/24 0417 Graham Osorio.RESULTS READ BACK BY SAME. Emergency Department Summary on 07-13-2024 Emergency Department Summary [facility] Medical Records Department [address] [place] [address] Emergency Department Summary 07/13/24 MR#: [id number] Acct: [id number] Name: BAUTISTA RUFFIN Rep #: [id number] : 1960 64 From: Richie Borden DO PCP: [facility] Status:REG ER Location: ED HPI History [...] symptoms and therefore comes in for evaluation [facility] Medical History Sacral decubitus ulcer, stage III Atherosclerotic heart disease of [place] coronary artery without angina pectoris Depression Chronic [...] L Temperature (more content not included)... Normal [facility] Eosinophil percentageOrdered By: Richie Borden on 07-13-2024 Eosinophils/100 WBC (Bld) 3.1 % 0-5 [facility] Erythrocyte distribution wid th (RBC) [Ratio]Ordered By: Richie Borden on 07-13-2024 Erythrocyte distribution width (RBC) [Entitic vol] 47.9 fL High 35.1-43.9 [facility] Erythrocyte distribution wid th ratioOrdered By: Richie Borden on 07-13-2024 Erythrocyte distribution width (RBC) [Ratio] 15.9 % High 11.6-14.6 [facility] Erythrocyte distribution wid th standard deviationOrdered By: Richie Borden on 07-13-2024 Erythrocyte distribution width (RBC) [Ratio] 47.9 fl High 35.1-43.9 [facility] Estimated glomerular filtrat ion rate (GFR) AmericanOrdered By: Richie Borden on 07-13-2024 Estimated GFR (MDRD) Amer 166 mL/min >60 [facility] Comment on above: GFR Calc Estimation of creatinine elzbieta aranceOrdered By: Richie Borden on 07-13-2024 Estimated Creatinine Clearance Calc 120.02 ml/min [facility] Glomerular filtration rate ( GFR) estimationOrdered By: Richie Borden on 07-13-2024 Estimated GFR (MDRD) Non-Af Amer 137 mL/min >60 [facility] Comment on above: Non- GFR Calc GFR/1.73 sq M.predicted among non-blacks MDRD (S/P/Bld) [Vol rate/Area] 137 mL/min/{1.73_m2} >[address] [facility] Comment on above: Non- GFR Calc Glucose measurementOrdered B y: Richie Borden on 07-13-2024 Glucose [Mass/Vol] 122 mg/dL High 74-106 [facility] Comment on above: Fasting Glucose resu lt from 100 to 125 mg/dL suggests IMPAIRED HOMEOSTASIS per A.D.A. criteria. Hematocrit Auto (Bld) [Volum e fraction]Ordered By: Richie Borden on 07-13-2024 Hematocrit (Bld) [Volume fraction] 43.8 % 40-54 [facility] Hemoglobin measurementOrdere d By: Richie Borden on 07-13-2024 Hemoglobin (Bld) [Mass/Vol] 14.2 g/dL 13.0-16. 5 [facility] Immature granulocytes/100 WB C Auto (Bld)Ordered By: Richie Borden on 07-13-2024 Immature granulocytes/100 WBC (Bld) 0.400 % 0.0-0.9 [facility] Comment on above: IG% - Immature Granu locytes (promyelocytes, myelocytes and metamyelocytes) > 1% indicates that a LEFT SHIFT is Present. Influenza virus A and B and SARS-CoV-2 (COVID-19) and Respiratory syncytial virus RNAOrdered By: Richie Borden on 07-13-2024 SARS-CoV-2 (COVID-19) RNA ZEKE+probe Ql (Unsp spec) [facility] L501.4020on 07-13-2024 TROPONIN-I HS 6 pg/mL Normal 3.0-78.0 [facility] Comment on above: Order Comment: 'TROP ' Serial specimen #1, #2 or #3: 2 Result Comment: Plea se Note: New Test Units and Gender Specific Reference Ranges. For more information see Policy Stat Procedure Dawson High Sensitivity Troponin (TNIH) and attachments. Performed By: #### L 500.3400, L501.2450, L100.0100, L500.2500, L501.4020, L300.8000 #### [facility] [address] [place], [address] TROPONIN-I HS 7 pg/mL Normal 3.0-78.0 [facility] Comment on above: Order Comment: 'TROP ' Serial specimen #1, #2 or #3: 1 Result Comment: Siri anaya Note: New Test Units and Gender Specific Reference Ranges. For more information see Policy Stat Procedure Dawson High Sensitivity Troponin (TNIH) and attachments. Performed By: #### L 500.3400, L501.2450, L100.0100, L500.2500, L501.4020, L300.8000 #### [facility] [address] [place], [place], [id number] Laboratory - Chemistry and C hemistry - challengeOrdered By: Richie Borden on 07-13-2024 AST [Catalytic activity/Vol] 25 U/L 15-37 [facility] Lipaseon 07-13-2024 Lipase [Catalytic activity/Vol] 17 U/L Low 73-393 [facility] Comment on above: Order Comment: 'TROP ' Serial specimen #1, #2 or #3: 1 Performed By: #### L 500.3400, L501.2450, L100.0100, L500.2500, L501.4020, L300.8000 #### [facility] [address] [place], [address] Lipase measurementOrdered By : Richie Borden on 07-13-2024 Lipase [Catalytic activity/Vol] 17 U/L Low 73-393 [facility] Liver Profileon 07-13-2024 Albumin [Mass/Vol] 2.5 g/dL Low 3.2-5.0 [facility] Comment on above: Order Comment: 'TROP ' Serial specimen #1, #2 or #3: 1 Performed By: #### L 500.3400, L501.2450, L100.0100, L500.2500, L501.4020, L300.8000 #### [facility] [address] [place], [address] ALK P 124 U/L High 45-117 [facility] Comment on above: Order Comment: 'TROP ' Serial specimen #1, #2 or #3: 1 Performed By: #### L 500.3400, L501.2450, L100.0100, L500.2500, L501.4020, L300.8000 #### [facility] [address] [place], [address] ALT [Catalytic activity/Vol] 24 U/L Normal 16-61 [facility] Comment on above: Order Comment: 'TROP ' Serial specimen #1, #2 or #3: 1 Performed By: #### L 500.3400, L501.2450, L100.0100, L500.2500, L501.4020, L300.8000 #### [facility] [address] [place], [address] AST [Catalytic activity/Vol] 25 U/L Normal 15-37 [facility] Comment on above: Order Comment: 'TROP ' Serial specimen #1, #2 or #3: 1 Performed By: #### L 500.3400, L501.2450, L100.0100, L500.2500, L501.4020, L300.8000 #### [facility] [address] [place], [address] Bilirubin [Mass/Vol] 0.30 mg/dL Normal 0.20-1.00 [facility] Comment on above: Order Comment: 'TROP ' Serial specimen #1, #2 or #3: 1 Result Comment: For patients on eltrombopag therapy, use of Dimension Dawson TBIL is not recommended. Performed By: #### L 500.3400, L501.2450, L100.0100, L500.2500, L501.4020, L300.8000 #### [facility] [address] [place], [address] Bilirubin.direct [Mass/Vol] 0.15 mg/dL Normal 0.00-0.3 0 [facility] Comment on above: Order Comment: 'TROP ' Serial specimen #1, #2 or #3: 1 Performed By: #### L 500.3400, L501.2450, L100.0100, L500.2500, L501.4020, L300.8000 #### [facility] [address] [place], [address] Globulin (S) [Mass/Vol] 5.7 g/dL High 2.2-4.[address] [facility] Comment on above: Order Comment: 'TROP ' Serial specimen #1, #2 or #3: 1 Performed By: #### L 500.3400, L501.2450, L100.0100, L500.2500, L501.4020, L300.8000 #### [facility] [address] [place], [address] T PROT 8.2 g/dL Normal 6.4-8.2 [facility] Comment on above: Order Comment: 'TROP ' Serial specimen #1, #2 or #3: 1 Performed By: #### L 500.3400, L501.2450, L100.0100, L500.2500, L501.4020, L300.8000 #### [facility] [address] [place], [address] Lymphocytes Auto (Unsp spec) [#/Vol]Ordered By: Richie Borden on 07-13-2024 Lymphocytes (Bld) [#/Vol] 3.25 10*3/uL 0.83-4.5 1 [facility] Lymphocytes/100 WBC Auto (Un sp spec)Ordered By: Richie Borden on 07-13-2024 Lymphocytes/100 WBC (Bld) 22.6 % 19-41 [facility] M100.678on 07-13-2024 M100.678 SARS-CoV-2 (COVID 19 ) Negative INFLUENZA A Negative INFLUENZA B Negative RSV PCR Negative Normal [facility] Comment on above: Performed By: #### L 500.3400, L501.2450, L100.0100, L500.2500, L501.4020, L300.8000 #### [facility] [address] [place], [address] MCV (mean corpuscular volume ) determinationOrdered By: Richie Borden on 07-13-2024 MCV (RBC) [Entitic vol] 82.6 fL 80-[address] [facility] Mean corpuscular hemoglobin (MCH) determinationOrdered By: Richie Borden on 07-13-2024 MCH (RBC) [Entitic mass] 26.8 pg Low 27.0-32.0 [facility] Mean corpuscular hemoglobin concentration (MCHC) determinationOrdered By: Richie Borden on 07-13-2024 MCHC (RBC) [Mass/Vol] 32.4 g/dL 32-36 [facility] Mean platelet volume determi nationOrdered By: Richie Borden on 07-13-2024 Platelet mean volume (Bld) [Entitic vol] 8.6 fL 6.2-12.0 [facility] Monocyte percentageOrdered B y: Richie Borden on 07-13-2024 Monocytes/100 WBC (Bld) 9.5 % 0-[address] [facility] Neutrophil percentageOrdered By: Richie Borden on 07-13-2024 Neutrophils/100 WBC (Bld) 63.9 % 47-70 [facility] Nucleated red blood cell per centageOrdered By: Richie Borden on 07-13-2024 Nucleated RBC/100 WBC (Bld) [Ratio] 0 % 0-5 [facility] Platelet countOrdered By: Yvonne Borden on 07-13-2024 Platelets (Bld) [#/Vol] 477 10*3/uL High 150-450 [facility] Potassium measurementOrdered By: Richie Borden on 07-13-2024 Potassium [Moles/Vol] 3.6 mmol/L 3.5-5.1 [facility] RBC Auto (Bld) [#/Vol]Ordere d By: Richie Borden on 07-13-2024 RBC (Bld) [#/Vol] 5.30 10*6/uL 4.6-6.2 [facility] Serum anion gap measurementO rdered By: Richie Borden on 07-13-2024 Anion gap [Moles/Vol] 6 mmol/L 5-15 [facility] Serum globulin measurementOr dered By: Richie Borden on 07-13-2024 Globulin (S) [Mass/Vol] 5.7 g/dL High 2.2-4.[address] [facility] Serum or plasma alanine hooper otransferase (ALT) measurementOrdered By: Richie Borden on 07-13-2024 ALT [Catalytic activity/Vol] 24 U/L 16-61 [facility] Serum or plasma albumin shantal urement (mass/volume)Ordered By: Richie Borden on 07-13-2024 Albumin [Mass/Vol] 2.5 g/dL Low 3.2-5.0 [facility] Serum or plasma alkaline radha sphatase measurementOrdered By: Richie Borden on 07-13-2024 ALP [Catalytic activity/Vol] 124 U/L High 45-117 [facility] Serum or plasma calcium shantal urement (mass/volume)Ordered By: Richie Borden on 07-13-2024 Calcium [Mass/Vol] 9.4 mg/dL 8.5-10.1 [facility] Serum or plasma creatinine m easurement (mass/volume)Ordered By: Richie Borden on 07-13-2024 Creatinine [Mass/Vol] 0.63 mg/dL Low 0.70-1.30 [facility] Comment on above: The validity of the calculated GFR & GFRAA in patients over 70 years has not been determined. Clinical correlation is essential. Serum or plasma urea nitroge n measurement (mass/volume)Ordered By: Richie oBrden on 07-13-2024 Urea nitrogen [Mass/Vol] 11 mg/dL 7-18 [facility] Sodium levelOrdered By: Yuriy Borden on 07-13-2024 Sodium [Moles/Vol] 137 mmol/L 136-145 [facility] Total proteinOrdered By: Isidro Borden on 07-13-2024 Protein [Mass/Vol] 8.2 g/dL 6.4-8.2 [facility] Troponin IOrdered By: Richie Borden on 07-13-2024 Troponin I 6 pg/mL 3.0-78.0 [facility] Comment on above: Please Note: New Tanya t Units and Gender Specific Reference Ranges. For more information see Policy Stat Procedure Dawson High Sensitivity Troponin (TNIH) and attachments. Troponin I High Sensitivity 6 pg/mL 3.0-78.0 [facility] Comment on above: Please Note: New Tanya t Units and Gender Specific Reference Ranges. For more information see Policy Stat Procedure Dawson High Sensitivity Troponin (TNIH) and attachments. White blood cell (WBC) count Ordered By: Richie Borden on 07-13-2024 WBC (Bld) [#/Vol] 14.4 10*3/uL High 4.4-11.0 [facility] Culture, Blood (WB)on 2024 CUB Blood cultures x2, from two different sites No growth in 5 days. Normal [facility] Comment on above: Performed By: #### L 100.0100, L503.6005, L500.4050, L300.4310, L300.3900, M200.1000 ####[facility] [id number] [facility] [place], [address] Discharge Instructionon 05-30 Discharge Instruction [facility] Medical Records Department [address] [place] [address] Instructions for Home/Discharge Instructions 06/19/24 1050 MR#: [id number] Acct: [id number] Name: BAUTISTA RUFFIN Rep #: [id number] : 1960 64 From: Darian Arceo MD PCP: [facility] Status:ADM IN Discharge Instructions DC O2, CPAP, BIPAP needs Home O2 Discharge instructions: No Follow Up Care Test Results: Test results from this visit will be discussed in further detail at your follow-up appointment, if applicable. Discharge Plan Admission Admit Date/Time: 06/16/24 19:56 Primary Reason for Your Visit: Pseudomonas associated CAUTI, nonadherence Attending Provider: Darian Arceo Primary Care Provider: [facility] Consulting Providers: Ronak Quiroz Instructions Additional Instructions [...] mg PO BID Referrals / Follow Up: [facility] [Primary Care Provider] - Maulik Jenkins MD [Med Staff - Active Staff] - Within 1 Month Disposition Disposition (needs filled in before D/C Order can be placed): Home Health Service 06/19/24 1145 Darian Arceo MD CC: Dr. Ronak Quiroz, DO; [facility] Signed Normal [facility] Magnesiumon 06-18-2024 Magnesium [Mass/Vol] 1.9 mg/dL Normal 1.6-2.6 [facility] Comment on above: Performed By: #### L 500.3400, L501.2450, L100.0100, L500.2500, L501.4020, L300.8000 #### [facility] [address] [place], [place], [address] Magnesium measurementOrdered By: Ronak Cui on 06-18-2024 Magnesium [Mass/Vol] 1.9 mg/dL 1.6-2.6 [facility] Phosphoruson 06-18-2024 Phosphate [Mass/Vol] 3.7 mg/dL Normal 2.5-4.9 [facility] Comment on above: Performed By: #### L 500.3400, L501.2450, L100.0100, L500.2500, L501.4020, L300.8000 #### [facility] [address] [place], [place], [id number] Phosphorus measurementOrdere d By: Ronak Cui on 06-18-2024 Phosphorus Level 3.7 mg/dL 2.5-4.9 [facility] Urine Cultureon 06-18-2024 URC Below infection leve l. GNR Poss Pseudomonas sp [place] Count 1000-10,000 Yeast, not Joleen albicans Yeast, not Joleen albicans Normal [facility] Comment on above: Performed By: #### L 500.3400, L501.2450, L100.0100, L500.2500, L501.4020, L300.8000 #### [facility] [address] [place], [place], [id number] Absolute neutrophil countOrd ered By: Ronak Cui on 06-17-2024 Neutrophils (Bld) [#/Vol] 6.1 10*3/uL 2.0-7.7 [facility] Albumin to globulin ratioOrd ered By: Ronak Cui on 06-17-2024 Albumin/Globulin [Mass ratio] 0.6 {ratio} Low 0.9-2.4 [facility] Basophil percentageOrdered B y: Ronak Cui on 06-17-2024 Basophils/100 WBC (Bld) 0.7 % 0-[address] [facility] Bilirubin, totalOrdered By: Ronak Cui on 06-17-2024 Bilirubin [Mass/Vol] 0.40 mg/dL 0.20-1.00 [facility] Comment on above: For patients on eltr ombopag therapy, use of Dimension Dawson TBIL is not recommended. Blood urea nitrogen (BUN)/cr eatinine ratioOrdered By: Ronak Cui on 06-17-2024 Urea nitrogen/Creatinine [Mass ratio] 14.0 mg/mg 03-17 [facility] CBC W/Diff, Automatedon 05-30 Absolute Lymph 2.50 X10 3/uL Normal 0.83-4.51 [facility] Comment on above: Performed By: #### L 500.3400, L501.2450, L100.0100, L500.2500, L501.4020, L300.8000 #### [facility] [address] [place], [address] Absolute Neut 6.1 X10 3/uL Normal 2.0-7.7 [facility] Comment on above: Performed By: #### L 500.3400, L501.2450, L100.0100, L500.2500, L501.4020, L300.8000 #### [facility] [address] [place], [address] Basophils/100 WBC (Bld) 0.7 % Normal 0-[address] [facility] Comment on above: Performed By: #### L 500.3400, L501.2450, L100.0100, L500.2500, L501.4020, L300.8000 #### [facility] [address] [place], [address] Eosinophils/100 WBC (Bld) 5.5 % High 0-5 [facility] Comment on above: Performed By: #### L 500.3400, L501.2450, L100.0100, L500.2500, L501.4020, L300.8000 #### [facility] [address] [place], [address] Erythrocyte distribution width (RBC) [Ratio] 16.3 % High 11.6-14.6 [facility] Comment on above: Performed By: #### L 500.3400, L501.2450, L100.0100, L500.2500, L501.4020, L300.8000 #### [facility] [address] [place], [address] Hematocrit (Bld) [Volume fraction] 42.7 % Normal 40-54 [facility] Comment on above: Performed By: #### L 500.3400, L501.2450, L100.0100, L500.2500, L501.4020, L300.8000 #### [facility] [address] [place], [address] Hemoglobin (Bld) [Mass/Vol] 13.9 g/dL Normal 13.0-16. 5 [facility] Comment on above: Performed By: #### L 500.3400, L501.2450, L100.0100, L500.2500, L501.4020, L300.8000 #### [facility] [address] [place], [address] IG% 0.700 Normal 0.0-0.9 [facility] Comment on above: Result Comment: IG% - Immature Granulocytes (promyelocytes, myelocytes and metamyelocytes) > 1% indicates that a LEFT SHIFT is Present. Performed By: #### L 500.3400, L501.2450, L100.0100, L500.2500, L501.4020, L300.8000 #### [facility] [address] [place], [address] Lymphocytes/100 WBC (Bld) 24.1 % Normal 19-41 [facility] Comment on above: Performed By: #### L 500.3400, L501.2450, L100.0100, L500.2500, L501.4020, L300.8000 #### [facility] [address] [place], [address] MCH (RBC) [Entitic mass] 27.7 pg Normal 27.0-32.0 [facility] Comment on above: Performed By: #### L 500.3400, L501.2450, L100.0100, L500.2500, L501.4020, L300.8000 #### [facility] [address] [place], [address] MCHC (RBC) [Mass/Vol] 32.6 g/dL Normal 32-36 [facility] Comment on above: Performed By: #### L 500.3400, L501.2450, L100.0100, L500.2500, L501.4020, L300.8000 #### [facility] [address] [place], [address] MCV (RBC) [Entitic vol] 85.2 fL Normal 80-94 [facility] Comment on above: Performed By: #### L 500.3400, L501.2450, L100.0100, L500.2500, L501.4020, L300.8000 #### [facility] [address] [place], [address] Monocytes/100 WBC (Bld) 9.9 % Normal 0-10 [facility] Comment on above: Performed By: #### L 500.3400, L501.2450, L100.0100, L500.2500, L501.4020, L300.8000 #### [facility] [address] [place], [address] Neutrophils/100 WBC (Bld) 59.1 % Normal 47-70 [facility] Comment on above: Performed By: #### L 500.3400, L501.2450, L100.0100, L500.2500, L501.4020, L300.8000 #### [facility] [address] [place], [address] Nucleated RBC (Bld) [#/Vol] 0 10*3/uL Normal 0-5 [facility] Comment on above: Performed By: #### L 500.3400, L501.2450, L100.0100, L500.2500, L501.4020, L300.8000 #### [facility] [address] [place], [address] Platelet mean volume (Bld) [Entitic vol] 9.0 fL Normal 6.2-12.0 [facility] Comment on above: Performed By: #### L 500.3400, L501.2450, L100.0100, L500.2500, L501.4020, L300.8000 #### [facility] [address] [place], [address] Platelets (Bld) [#/Vol] 363 10*3/uL Normal 150-450 [facility] Comment on above: Performed By: #### L 500.3400, L501.2450, L100.0100, L500.2500, L501.4020, L300.8000 #### [facility] [address] [place], [address] RBC (Bld) [#/Vol] 5.01 10*6/uL Normal 4.6-6.2 [facility] Comment on above: Performed By: #### L 500.3400, L501.2450, L100.0100, L500.2500, L501.4020, L300.8000 #### [facility] [address] [place], [address] RDW SD 50.2 fl High 35.1-43.9 [facility] Comment on above: Performed By: #### L 500.3400, L501.2450, L100.0100, L500.2500, L501.4020, L300.8000 #### [facility] [address] [place], [address] WBC (Bld) [#/Vol] 10.4 10*3/uL Normal 4.4-11.0 [facility] Comment on above: Performed By: #### L 500.3400, L501.2450, L100.0100, L500.2500, L501.4020, L300.8000 #### [facility] [address] [place], [address] Carbon dioxide measurementOr dered By: Ronak Cui on 06-17-2024 CO2 [Moles/Vol] 24.0 mmol/L 21.0-32.0 [facility] Chloride measurementOrdered By: Ronak Cui on 06-17-2024 Chloride [Moles/Vol] 108 mmol/L High 98-107 [facility] Comprehensive Metabolic Prof ilon 06-17-2024 Albumin [Mass/Vol] 2.4 g/dL Low 3.2-5.0 [facility] Comment on above: Performed By: #### L 500.3400, L501.2450, L100.0100, L500.2500, L501.4020, L300.8000 #### [facility] [address] [place], [address] Albumin/Globulin [Mass ratio] 0.6 {ratio} Low 0.9-2.4 [facility] Comment on above: Performed By: #### L 500.3400, L501.2450, L100.0100, L500.2500, L501.4020, L300.8000 #### [facility] [address] [place], [address] ALK P 130 U/L High 45-117 [facility] Comment on above: Performed By: #### L 500.3400, L501.2450, L100.0100, L500.2500, L501.4020, L300.8000 #### [facility] [address] [place], [address] ALT [Catalytic activity/Vol] 17 U/L Normal 16-61 [facility] Comment on above: Performed By: #### L 500.3400, L501.2450, L100.0100, L500.2500, L501.4020, L300.8000 #### [facility] [address] [place], [address] AST [Catalytic activity/Vol] 20 U/L Normal 15-37 [facility] Comment on above: Performed By: #### L 500.3400, L501.2450, L100.0100, L500.2500, L501.4020, L300.8000 #### [facility] [address] [place], [address] Bilirubin [Mass/Vol] 0.40 mg/dL Normal 0.20-1.00 [facility] Comment on above: Result Comment: For patients on eltrombopag therapy, use of Dimension Dawson TBIL is not recommended. Performed By: #### L 500.3400, L501.2450, L100.0100, L500.2500, L501.4020, L300.8000 #### [facility] [address] [place], [address] BUN/CRE 14.0 RATIO Normal 10-20 [facility] Comment on above: Performed By: #### L 500.3400, L501.2450, L100.0100, L500.2500, L501.4020, L300.8000 #### [facility] [address] [place], [address] CA,Total 8.9 mg/dL Normal 8.5-10.1 [facility] Comment on above: Performed By: #### L 500.3400, L501.2450, L100.0100, L500.2500, L501.4020, L300.8000 #### [facility] [address] [place], [address] Chloride [Moles/Vol] 108 mmol/L High 98-107 [facility] Comment on above: Performed By: #### L 500.3400, L501.2450, L100.0100, L500.2500, L501.4020, L300.8000 #### [facility] [address] [place], [address] CO2 [Moles/Vol] 24.0 mmol/L Normal 21.0-32.0 [facility] Comment on above: Performed By: #### L 500.3400, L501.2450, L100.0100, L500.2500, L501.4020, L300.8000 #### [facility] [address] [place], [address] Creatinine [Mass/Vol] 0.57 mg/dL Low 0.70-1.30 [facility] Comment on above: Result Comment: The validity of the calculated GFR GFRAA in patients over 70 years has not been determined. Clinical correlation is essential. Performed By: #### L 500.3400, L501.2450, L100.0100, L500.2500, L501.4020, L300.8000 #### [facility] [address] [place], [address] ECRCL 132.65 ml/min Normal [facility] Comment on above: Performed By: #### L 500.3400, L501.2450, L100.0100, L500.2500, L501.4020, L300.8000 #### [facility] [address] [place], [address] EST GFR - AA 184 mL/min Normal >60 [facility] Comment on above: Result Comment: Afri can Ivorian GFR Calc Performed By: #### L 500.3400, L501.2450, L100.0100, L500.2500, L501.4020, L300.8000 #### [facility] [address] [place], [address] GAP 6 Normal 5-15 [facility] Comment on above: Performed By: #### L 500.3400, L501.2450, L100.0100, L500.2500, L501.4020, L300.8000 #### [facility] [address] [place], [address] GFR/1.73 sq M.predicted among non-blacks MDRD (S/P/Bld) [Vol rate/Area] 152 mL/min/{1.73_m2} Normal >60 [facility] Comment on above: Result Comment: Non- GFR Calc Performed By: #### L 500.3400, L501.2450, L100.0100, L500.2500, L501.4020, L300.8000 #### [facility] [address] [place], [address] Globulin (S) [Mass/Vol] 4.3 g/dL High 2.2-4.2 [facility] Comment on above: Performed By: #### L 500.3400, L501.2450, L100.0100, L500.2500, L501.4020, L300.8000 #### [facility] [address] [place], [address] Glucose [Mass/Vol] 101 mg/dL Normal 74-106 [facility] Comment on above: Result Comment: Fast ing Glucose result from 100 to 125 mg/dL suggests IMPAIRED HOMEOSTASIS per A.D.A. criteria. Performed By: #### L 500.3400, L501.2450, L100.0100, L500.2500, L501.4020, L300.8000 #### [facility] [address] [place], [address] Potassium [Moles/Vol] 3.5 mmol/L Normal 3.5-5.1 [facility] Comment on above: Performed By: #### L 500.3400, L501.2450, L100.0100, L500.2500, L501.4020, L300.8000 #### [facility] [address] [place], [address] Sodium [Moles/Vol] 139 mmol/L Normal 136-145 [facility] Comment on above: Performed By: #### L 500.3400, L501.2450, L100.0100, L500.2500, L501.4020, L300.8000 #### [facility] [address] [place], [address] T PROT 6.7 g/dL Normal 6.4-8.2 [facility] Comment on above: Performed By: #### L 500.3400, L501.2450, L100.0100, L500.2500, L501.4020, L300.8000 #### [facility] [address] [place], [address] Urea nitrogen [Mass/Vol] 8 mg/dL Normal 7-18 [facility] Comment on above: Performed By: #### L 500.3400, L501.2450, L100.0100, L500.2500, L501.4020, L300.8000 #### [facility] [address] [place], [address] Culture, Blood (WB)on 2024 CUB Blood cultures x2, from two different sites No growth in 5 days. Normal [facility] Comment on above: Performed By: #### L 500.3400, L501.2450, L100.0100, L500.2500, L501.4020, L300.8000 #### [facility] [address] [place], [address] CUB Blood cultures x2, from two different sites No growth in 5 days. Normal [facility] Comment on above: Performed By: #### L 500.3400, L501.2450, L100.0100, L500.2500, L501.4020, L300.8000 #### [facility] [place], [address] Eosinophil percentageOrdered By: Ronak Cui on 06-17-2024 Eosinophils/100 WBC (Bld) 5.5 % High 0-5 [facility] Erythrocyte distribution wid th (RBC) [Ratio]Ordered By: Ronak Cui on 06-17-2024 Erythrocyte distribution width (RBC) [Entitic vol] 50.2 fL High 35.1-43.9 [facility] Erythrocyte distribution wid th ratioOrdered By: Ronak Cui on 06-17-2024 Erythrocyte distribution width (RBC) [Ratio] 16.3 % High 11.6-14.6 [facility] Estimated glomerular filtrat ion rate (GFR) AmericanOrdered By: Ronak Cui on 06-17-2024 Estimated GFR (MDRD) Amer 184 mL/min >60 [facility] Comment on above: GFR Calc Estimation of creatinine elzbieta aranceOrdered By: Ronak Cui on 06-17-2024 Estimated Creatinine Clearance Calc 132.65 ml/min [facility] Glomerular filtration rate ( GFR) estimationOrdered By: Ronak Cui on 06-17-2024 Estimated GFR (MDRD) Non-Af Amer 152 mL/min >60 [facility] Comment on above: Non- GFR Calc Glucose measurementOrdered B y: Ronak Cui on 06-17-2024 Glucose [Mass/Vol] 101 mg/dL 74-106 [facility] Comment on above: Fasting Glucose resu lt from 100 to 125 mg/dL suggests IMPAIRED HOMEOSTASIS per A.D.A. criteria. Hematocrit Auto (Bld) [Volum e fraction]Ordered By: Ronak Cui on 06-17-2024 Hematocrit (Bld) [Volume fraction] 42.7 % 40-54 [facility] Hemoglobin measurementOrdere d By: Ronak Cui on 06-17-2024 Hemoglobin (Bld) [Mass/Vol] 13.9 g/dL 13.0-16. 5 [facility] Immature granulocytes/100 WB C Auto (Bld)Ordered By: Ronak Cui on 06-17-2024 Immature granulocytes/100 WBC (Bld) 0.700 % 0.0-0.9 [facility] [facility] Comment on above: IG% - Immature Granu locytes (promyelocytes, myelocytes and metamyelocytes) > 1% indicates that a LEFT SHIFT is Present. Laboratory - Chemistry and C hemistry - challengeOrdered By: Ronak Cui on 06-17-2024 AST [Catalytic activity/Vol] 20 U/L 15-37 [facility] Lymphocytes Auto (Unsp spec) [#/Vol]Ordered By: Ronak Cui on 06-17-2024 Lymphocytes (Bld) [#/Vol] 2.50 10*3/uL 0.83-4.5 1 [facility] Lymphocytes/100 WBC Auto (Un sp spec)Ordered By: Ronak Cui on 06-17-2024 Lymphocytes/100 WBC (Bld) 24.1 % 19-41 [facility] MCV (mean corpuscular volume ) determinationOrdered By: Ronak Cui on 06-17-2024 MCV (RBC) [Entitic vol] 85.2 fL 80-[address] [facility] Magnesiumon 06-17-2024 Magnesium [Mass/Vol] 1.8 mg/dL Normal 1.6-2.6 [facility] Comment on above: Performed By: #### L 500.3400, L501.2450, L100.0100, L500.2500, L501.4020, L300.8000 #### [facility] [address] [place] [address], [id number] Mean corpuscular hemoglobin (MCH) determinationOrdered By: Ronak Cui on 06-17-2024 MCH (RBC) [Entitic mass] 27.7 pg 27.0-32.0 [facility] Mean corpuscular hemoglobin concentration (MCHC) determinationOrdered By: Ronak Cui on 06-17-2024 MCHC (RBC) [Mass/Vol] 32.6 g/dL 32-36 [facility] Mean platelet volume determi nationOrdered By: Ronak Cui on 06-17-2024 Platelet mean volume (Bld) [Entitic vol] 9.0 fL 6.2-12.0 [facility] Monocyte percentageOrdered B y: Ronak Cui on 06-17-2024 Monocytes/100 WBC (Bld) 9.9 % 0-[address] [facility] Neutrophil percentageOrdered By: Ronak Cui on 06-17-2024 Neutrophils/100 WBC (Bld) 59.1 % 47-70 [facility] Nucleated red blood cell per centageOrdered By: Ronak Cui on 06-17-2024 Nucleated RBC/100 WBC (Bld) [Ratio] 0 % 0-5 [facility] Phosphoruson 06-17-2024 Phosphate [Mass/Vol] 3.2 mg/dL Normal 2.5-4.9 [facility] Comment on above: Performed By: #### L 500.3400, L501.2450, L100.0100, L500.2500, L501.4020, L300.8000 #### [facility] [address] [place] [address], [id number] Platelet countOrdered By: Thomas Cui on 06-17-2024 Platelets (Bld) [#/Vol] 363 10*3/uL 150-450 [facility] Potassium measurementOrdered By: Ronak Cui on 06-17-2024 Potassium [Moles/Vol] 3.5 mmol/L 3.5-5.1 [facility] RBC Auto (Bld) [#/Vol]Ordere d By: Ronak Cui on 06-17-2024 RBC (Bld) [#/Vol] 5.01 10*6/uL 4.6-6.2 [facility] Serum anion gap measurementO rdered By: Ronak Cui on 06-17-2024 Anion gap [Moles/Vol] 6 mmol/L 5-15 [facility] Serum globulin measurementOr dered By: Ronak Cui on 06-17-2024 Globulin (S) [Mass/Vol] 4.3 g/dL High 2.2-4.[address] [facility] Serum or plasma alanine hooper otransferase (ALT) measurementOrdered By: Ronak Cui on 06-17-2024 ALT [Catalytic activity/Vol] 17 U/L 16-61 [facility] Serum or plasma albumin shantal urement (mass/volume)Ordered By: Ronak Cui on 06-17-2024 Albumin [Mass/Vol] 2.4 g/dL Low 3.2-5.0 [facility] Serum or plasma alkaline radha sphatase measurementOrdered By: Ronak Cui on 06-17-2024 ALP [Catalytic activity/Vol] 130 U/L High 45-117 [facility] Serum or plasma calcium shantal urement (mass/volume)Ordered By: Ronak Cui on 06-17-2024 Calcium [Mass/Vol] 8.9 mg/dL 8.5-10.1 [facility] Serum or plasma creatinine m easurement (mass/volume)Ordered By: Ronak Cui on 06-17-2024 Creatinine [Mass/Vol] 0.57 mg/dL Low 0.70-1.30 [facility] Comment on above: The validity of the calculated GFR & GFRAA in patients over 70 years has not been determined. Clinical correlation is essential. Serum or plasma urea nitroge n measurement (mass/volume)Ordered By: Ronak Cui on 06-17-2024 Urea nitrogen [Mass/Vol] 8 mg/dL 7-18 [facility] Sodium levelOrdered By: Johnny Cui on 06-17-2024 Sodium [Moles/Vol] 139 mmol/L 136-145 [facility] TSH QnOrdered By: Ronak muro on 06-17-2024 Thyroid Stimulating Hormone (TSH) 5.010 uIU/mL High 0.358-3.74 0 [facility] Thyroid Stim Hormone (TSH)on 06-17-2024 TSH 5.010 uIU/mL High 0.358-3.74 0 [facility] Comment on above: Performed By: #### L 500.3400, L501.2450, L100.0100, L500.2500, L501.4020, L300.8000 #### [facility] [address] [place], [place], [id number] Total proteinOrdered By: Juan Cui on 06-17-2024 Protein [Mass/Vol] 6.7 g/dL 6.4-8.2 [facility] White blood cell (WBC) count Ordered By: Ronak Cui on 06-17-2024 WBC (Bld) [#/Vol] 10.4 10*3/uL 4.4-11.0 [facility] 12 Lead EKGon 06-16-2024 12 Lead EKG [facility] Cardiovascular Services [address] [place] [address] 12 Lead EKG 06/16/24 1713 MR#: [id number] Acct: [id number] Name: BAUTISTA RUFFIN Rep #: [id number] : 1960 64 From: Zackary Costello MD Attending Dr: Dr. Darian Arceo MD Status: ADM IN Ordering Dr: Christian Merlos MD Date: 06/16/24 Location: [facility] Sex: M C Admitted: 06/16/24 Test Reason : Blood Pressure : */* mmHG Vent. Rate : 81 BPM Atrial Rate : 81 BPM P-R Int : 132 ms QRS Dur : 88 ms QT Int : 412 ms P-R-T Axes : 15 62 61 degrees QTcB Int : 478 ms Normal sinus rhythm Normal ECG Confirmed by NOEMI MARR, ALAN ([id number]), index editor AURORA FOURNIER ([id number]) on 06/17/2024 10:59:05 AM Referred By: Confirmed By: ALAN COSTELLO MD 06/17/24 1059 Date Zackary Costello MD CC: Dr. Christian Merlos MD; Dr. Darian Arceo MD; [facility] Signed Normal [facility] Bilirubin Test strip Ql (U)O rdered By: Christian Merlos on 06-16-2024 Bilirubin Ql (U) Negative Negative [facility] Blood cultureOrdered By: Dorina Merlos on 06-16-2024 Bacteria identified Cx Nom (Bld) No growth in 5 days. [facility] Bacteria identified Cx Nom (Bld) No growth in 5 days. [facility] Brain/Head without Contrasto n 06-16-2024 Brain/Head without Contrast [facility] Imaging Services [address] [place] [address] Brain/Head without Contrast MR#: [id number] Acct: [id number] Name: BAUTISTA RUFFIN Rep #: [id number] : 1960 M 64 From: Geraldo Figueroa PCP: [facility] Status: REG ER Study: Brain/Head without Contrast Date of Exam: 05/29 02/20 Exam# [id number] Ordering Dr: Christian Merlos [place] [id number] STUDY: CT BRAIN WITHOUT CONTRAST REASON FOR [...] EST , CC: Dr. Christian Merlos MD; [facility] Straight Line Edger: Signed Normal [facility] CBC W/Diff, Automatedon 05-29 Absolute Lymph 2.25 X10 3/uL Normal 0.83-4.51 [facility] Comment on above: Performed By: #### L 100.0100, L503.6005, L500.4050, L300.4310, L300.3900, M200.1000 #### [facility] [address] [place], [address] Absolute Neut 10.0 X10 3/uL High 2.0-7.7 [facility] Comment on above: Performed By: #### L 100.0100, L503.6005, L500.4050, L300.4310, L300.3900, M200.1000 #### [facility] [address] [place], [address] Basophils/100 WBC (Bld) 0.5 % Normal 0-[address] [facility] Comment on above: Performed By: #### L 100.0100, L503.6005, L500.4050, L300.4310, L300.3900, M200.1000 #### [facility] [address] [place], [address] Eosinophils/100 WBC (Bld) 3.2 % Normal 0-5 [facility] Comment on above: Performed By: #### L 100.0100, L503.6005, L500.4050, L300.4310, L300.3900, M200.1000 #### [facility] [address] [place], [address] Erythrocyte distribution width (RBC) [Ratio] 16.1 % High 11.6-14.6 [facility] Comment on above: Performed By: #### L 100.0100, L503.6005, L500.4050, L300.4310, L300.3900, M200.1000 #### [facility] [address] [place], [address] Hematocrit (Bld) [Volume fraction] 44.4 % Normal 40-54 [facility] Comment on above: Performed By: #### L 100.0100, L503.6005, L500.4050, L300.4310, L300.3900, M200.1000 #### [facility] [address] [place], [address] Hemoglobin (Bld) [Mass/Vol] 14.5 g/dL Normal 13.0-16. 5 [facility] Comment on above: Performed By: #### L 100.0100, L503.6005, L500.4050, L300.4310, L300.3900, M200.1000 #### [facility] [address] [facility] [address] [place], [address] IG% 0.600 Normal 0.0-0.9 [facility] Comment on above: Result Comment: IG% - Immature Granulocytes (promyelocytes, myelocytes and metamyelocytes) > 1% indicates that a LEFT SHIFT is Present. Performed By: #### L 100.0100, L503.6005, L500.4050, L300.4310, L300.3900, M200.1000 #### [facility] [address] [place], [address] Lymphocytes/100 WBC (Bld) 16.2 % Low 19-41 [facility] Comment on above: Performed By: #### L 100.0100, L503.6005, L500.4050, L300.4310, L300.3900, M200.1000 #### [facility] [address] [place], [address] MCH (RBC) [Entitic mass] 27.8 pg Normal 27.0-32.0 [facility] Comment on above: Performed By: #### L 100.0100, L503.6005, L500.4050, L300.4310, L300.3900, M200.1000 #### [facility] [address] [place], [address] MCHC (RBC) [Mass/Vol] 32.7 g/dL Normal 32-36 [facility] Comment on above: Performed By: #### L 100.0100, L503.6005, L500.4050, L300.4310, L300.3900, M200.1000 #### [facility] [address] [place], [address] MCV (RBC) [Entitic vol] 85.1 fL Normal 80-94 [facility] Comment on above: Performed By: #### L 100.0100, L503.6005, L500.4050, L300.4310, L300.3900, M200.1000 #### [facility] [address] [place], [address] Monocytes/100 WBC (Bld) 7.3 % Normal 0-10 [facility] Comment on above: Performed By: #### L 100.0100, L503.6005, L500.4050, L300.4310, L300.3900, M200.1000 #### [facility] [address] [place], [address] Neutrophils/100 WBC (Bld) 72.2 % High 47-70 [facility] Comment on above: Performed By: #### L 100.0100, L503.6005, L500.4050, L300.4310, L300.3900, M200.1000 #### [facility] [address] [place], [address] Nucleated RBC (Bld) [#/Vol] 0 10*3/uL Normal 0-5 [facility] Comment on above: Performed By: #### L 100.0100, L503.6005, L500.4050, L300.4310, L300.3900, M200.1000 #### [facility] [address] [place], [address] Platelet mean volume (Bld) [Entitic vol] 8.7 fL Normal 6.2-12.0 [facility] Comment on above: Performed By: #### L 100.0100, L503.6005, L500.4050, L300.4310, L300.3900, M200.1000 #### [facility] [address] [place], [address] Platelets (Bld) [#/Vol] 387 10*3/uL Normal 150-450 [facility] Comment on above: Performed By: #### L 100.0100, L503.6005, L500.4050, L300.4310, L300.3900, M200.1000 #### [facility] [address] [place], [address] RBC (Bld) [#/Vol] 5.22 10*6/uL Normal 4.6-6.2 [facility] Comment on above: Performed By: #### L 100.0100, L503.6005, L500.4050, L300.4310, L300.3900, M200.1000 #### [facility] [address] [place], [address] RDW SD 49.8 fl High 35.1-43.9 [facility] Comment on above: Performed By: #### L 100.0100, L503.6005, L500.4050, L300.4310, L300.3900, M200.1000 #### [facility] [address] [place], [address] WBC (Bld) [#/Vol] 13.9 10*3/uL High 4.4-11.0 [facility] Comment on above: Performed By: #### L 100.0100, L503.6005, L500.4050, L300.4310, L300.3900, M200.1000 #### [facility] [address] [place], [address] Calcium oxalate crystals LM Ql (Urine sed)Ordered By: Christian Merlos on 06-16-2024 Urine Calcium Oxalate Crystals 2+ /hpf [facility] Chest 1 View (Portable)on Chest 1 View (Portable) [facility] Imaging Services [address] [place] [address] Chest 1 View (Portable) MR#: [id number] Acct: [id number] Name: BAUTISTA RUFFIN Rep #: [id number] : 1960 M 64 From: Geraldo Figueroa PCP: [facility] Status: REG ER Study: Chest 1 View (Portable) Date of Exam: 06/16/24 Exam# [id number] Ordering Dr: Christian Merlos [place] [id number] EXAM: XR CHEST, 1 VIEW CLINICAL INDICATION: [...] EST , CC: Dr. Christian Merlos MD; [facility] Straight Line Edger: Signed Normal [facility] Comprehensive Metabolic Prof ilon 06-16-2024 Albumin [Mass/Vol] 2.7 g/dL Low 3.2-5.0 [facility] Comment on above: Performed By: #### L 100.0100, L503.6005, L500.4050, L300.4310, L300.3900, M200.1000 ####[facility] [address] [place], [address] Albumin/Globulin [Mass ratio] 0.6 {ratio} Low 0.9-2.4 [facility] Comment on above: Performed By: #### L 100.0100, L503.6005, L500.4050, L300.4310, L300.3900, M200.1000 ####[facility] [address] [place], [address] ALK P 143 U/L High 45-117 [facility] Comment on above: Performed By: #### L 100.0100, L503.6005, L500.4050, L300.4310, L300.3900, M200.1000 ####[facility] [address] [place], [address] ALT [Catalytic activity/Vol] 19 U/L Normal 16-61 [facility] Comment on above: Performed By: #### L 100.0100, L503.6005, L500.4050, L300.4310, L300.3900, M200.1000 ####[facility] [address] [place], [address] AST [Catalytic activity/Vol] 20 U/L Normal 15-37 [facility] Comment on above: Performed By: #### L 100.0100, L503.6005, L500.4050, L300.4310, L300.3900, M200.1000 ####[facility] [address] [place], [address] Bilirubin [Mass/Vol] 0.40 mg/dL Normal 0.20-1.00 [facility] Comment on above: Result Comment: For patients on eltrombopag therapy, use of Dimension Dawson TBIL is not recommended. Performed By: #### L 100.0100, L503.6005, L500.4050, L300.4310, L300.3900, M200.1000 ####[facility] [address] [place], [address] BUN/CRE 15.7 RATIO Normal 10-20 [facility] Comment on above: Performed By: #### L 100.0100, L503.6005, L500.4050, L300.4310, L300.3900, M200.1000 ####[facility] [address] [place], [address] CA,Total 9.4 mg/dL Normal 8.5-10.1 [facility] Comment on above: Performed By: #### L 100.0100, L503.6005, L500.4050, L300.4310, L300.3900, M200.1000 ####[facility] [address] [place], [address] Chloride [Moles/Vol] 108 mmol/L High 98-107 [facility] Comment on above: Performed By: #### L 100.0100, L503.6005, L500.4050, L300.4310, L300.3900, M200.1000 ####[facility] [address] [place], [address] CO2 [Moles/Vol] 27.0 mmol/L Normal 21.0-32.0 [facility] Comment on above: Performed By: #### L 100.0100, L503.6005, L500.4050, L300.4310, L300.3900, M200.1000 ####[facility] [address] [place], [address] Creatinine [Mass/Vol] 0.70 mg/dL Normal 0.70-1.30 [facility] Comment on above: Result Comment: The validity of the calculated GFR GFRAA in patients over 70 years has not been determined. Clinical correlation is essential. Performed By: #### L 100.0100, L503.6005, L500.4050, L300.4310, L300.3900, M200.1000 ####[facility] [address] [place], [address] ECRCL 108.01 ml/min Normal [facility] Comment on above: Performed By: #### L 100.0100, L503.6005, L500.4050, L300.4310, L300.3900, M200.1000 ####[facility] [address] [place], [address] EST GFR - AA 146 mL/min Normal >60 [facility] Comment on above: Result Comment: Afri can Ivorian GFR Calc Performed By: #### L 100.0100, L503.6005, L500.4050, L300.4310, L300.3900, M200.1000 ####[facility] [address] [place], [address] GAP 5 Normal 5-15 [facility] Comment on above: Performed By: #### L 100.0100, L503.6005, L500.4050, L300.4310, L300.3900, M200.1000 ####[facility] [address] [place], [address] GFR/1.73 sq M.predicted among non-blacks MDRD (S/P/Bld) [Vol rate/Area] 121 mL/min/{1.73_m2} Normal >[address] [facility] Comment on above: Result Comment: Non- GFR Calc Performed By: #### L 100.0100, L503.6005, L500.4050, L300.4310, L300.3900, M200.1000 ####[facility] [address] [place], [address] Globulin (S) [Mass/Vol] 4.8 g/dL High 2.2-4.2 [facility] Comment on above: Performed By: #### L 100.0100, L503.6005, L500.4050, L300.4310, L300.3900, M200.1000 ####[facility] [address] [place], [address] Glucose [Mass/Vol] 114 mg/dL High 74-106 [facility] Comment on above: Result Comment: Fast ing Glucose result from 100 to 125 mg/dL suggests IMPAIRED HOMEOSTASIS per A.D.A. criteria. Performed By: #### L 100.0100, L503.6005, L500.4050, L300.4310, L300.3900, M200.1000 ####[facility] [address] [place], [address] Potassium [Moles/Vol] 3.7 mmol/L Normal 3.5-5.1 [facility] Comment on above: Performed By: #### L 100.0100, L503.6005, L500.4050, L300.4310, L300.3900, M200.1000 ####[facility] [address] [place], [address] Sodium [Moles/Vol] 140 mmol/L Normal 136-145 [facility] Comment on above: Performed By: #### L 100.0100, L503.6005, L500.4050, L300.4310, L300.3900, M200.1000 ####[facility] [address] [place], [address] T PROT 7.5 g/dL Normal 6.4-8.2 [facility] Comment on above: Performed By: #### L 100.0100, L503.6005, L500.4050, L300.4310, L300.3900, M200.1000 ####[facility] [address] [place], [address] Urea nitrogen [Mass/Vol] 11 mg/dL Normal 7-18 [facility] Comment on above: Performed By: #### L 100.0100, L503.6005, L500.4050, L300.4310, L300.3900, M200.1000 ####[facility] [address] [place], [address] Emergency Department Summary on 06-16-2024 Emergency Department Summary [facility] Medical Records Department [address] [facility] [address] [place] [address] Emergency Department Summary 06/16/24 MR#: [id number] Acct: [id number] Name: BAUTISTA RUFFIN Rep #: [id number] : 1960 64 From: Christian Merlos MD PCP: [facility] Status:REG ER Location: ED HPI History [...] he states it is improved right now. 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 Normal [facility] Epithelial cells.squamous LM Ql (Urine sed)Ordered By: Christian Merlos on 06-16-2024 Epithelial cells.squamous LM.HPF (Urine sed) [#/Area] 0 /[HPF] 0-5 [facility] Glucose Ql (U)Ordered By: Rama Merlos on 06-16-2024 Urine Glucose (UA) Normal mg/dl Normal [facility] H AND P Exam - Hospital[facility] 06-16-2024 H&P Exam - Hospitalist [facility] Medical Records Department [address] [place] [address] H P Exam - Hospitalist 06/16/241936 MR#: [id number] Acct: [id number] Name: BAUTISTA RUFFIN Rep #: [id number] : 1960 64 From: Ronak Quiroz DO PCP: [facility] Status:ADM IN Location: [facility] [id number] HPI - General General Date of Admission: [...] in his femur - s/p evaluation at [facility] with patient not felt to be a surgical candidate and recommended to follow-up with the [facility] and very recent admission here from June 11, 2024 to June 14, 2024 for treatment of Acute Cystitis; with microscopic hematuria likely due to chronic suprapubic catheter with cultures positive for Pseudomonas aeruginosa sensitive to Zosyn complicated by suspected Pneumonia and Metabolic Encephalopathy who was sent home on a 7-day course of IV Zosyn via [facility]-Line as recommended by ID document management consultant who now re-presents to [facility] ER complaining his was not sure when [...] is expected to extend beyond 2 midnights. 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 Normal [facility] Hyaline casts LM.LPF (Urine sed) [#/Area]Ordered By: Christian Merlos on 06-16-2024 Hyaline casts LM Ql (Urine sed) 0-5 SEEN /lpf 0-5 [facility] International normalized rat io (INR) calculationOrdered By: Christian Merlos on 06-16-2024 INR Coag (Bld) [Relative time] 1.1 {INR} [facility] Ketones Test strip Ql (U)Ord ered By: Christian Merlos on 06-16-2024 Ketones Ql (U) 5 mg/dl High Negative [facility] Lactic Acidon 06-16-2024 Lactate [Moles/Vol] 1.1 mmol/L Normal 0.4-1.9 [facility] Comment on above: Order Comment: Y Performed By: #### L 100.0100, L503.6005, L500.4050, L300.4310, L300.3900, M200.1000 ####[facility] [address] [place], [place], [address] Lactic acid measurementOrder ed By: Christian Merlos on 06-16-2024 Lactate [Moles/Vol] 1.1 mmol/L 0.4-2.0 [facility] Microscopic analysis of urin e for red blood cells (RBC)Ordered By: Christian Merlos on 06-16-2024 Urine RBC 10-25 SEEN /hpf 0-5 [facility] Mucus LM Ql (Urine sed)Order ed By: Christian Merlos on 06-16-2024 Mucus Ql (Urine sed) 1+ /hpf [facility] Nitrite Test strip Ql (U)Ord ered By: Christian Merlos on 06-16-2024 Nitrite Ql (U) Positive High Negative [facility] Partial Thromboplast Timeon 06-16-2024 aPTT Coag (Bld) [Time] 43.2 s High 24.1-36.2 [facility] Comment on above: Performed By: #### L 100.0100, L503.6005, L500.4050, L300.4310, L300.3900, M200.1000 ####[facility] [address] [place], [address] Protein Test strip Ql (U)Ord ered By: Christian Merlos on 06-16-2024 Protein Ql (U) 30 mg/dl High Negative [facility] Prothrombin Time w/INRon INR Coag (PPP) [Relative time] 1.1 {INR} Normal [facility] Comment on above: Performed By: #### L 100.0100, L503.6005, L500.4050, L300.4310, L300.3900, M200.1000 ####[facility] [address] [place], [address] PT Coag (PPP) [Time] 13.9 s Normal 11.7-14.9 [facility] Comment on above: Performed By: #### L 100.0100, L503.6005, L500.4050, L300.4310, L300.3900, M200.1000 ####[facility] [address] [place], [address] Prothrombin timeOrdered By: Christian Merlos on 06-16-2024 PT Coag (PPP) [Time] 13.9 s 11.7-14.9 [facility] Urinalysis, Completeon 06-16 CA OX CRYSTAL 2+ /hpf Normal [facility] Comment on above: Order Comment: 'TROP ' Serial specimen #1, #2 or #3: 1 Performed By: #### L 500.3400, L501.2450, L100.0100, L500.2500, L501.4020, L300.8000 #### [facility] [address] [place], [address] CAST,HYALINE 0-5 SEEN Normal 0-5 [facility] Comment on above: Order Comment: 'TROP ' Serial specimen #1, #2 or #3: 1 Performed By: #### L 500.3400, L501.2450, L100.0100, L500.2500, L501.4020, L300.8000 #### [facility] [address] [place], [address] EPI,SQUAMOUS 0-5 SEEN Normal 0-5 [facility] Comment on above: Order Comment: 'TROP ' Serial specimen #1, #2 or #3: 1 Performed By: #### L 500.3400, L501.2450, L100.0100, L500.2500, L501.4020, L300.8000 #### [facility] [address] [place], [address] RBC 10-25 SEEN Normal 0-5 [facility] Comment on above: Order Comment: 'TROP ' Serial specimen #1, #2 or #3: 1 Performed By: #### L 500.3400, L501.2450, L100.0100, L500.2500, L501.4020, L300.8000 #### [facility] [address] [place], [address] BACTERIA 1+ /hpf Normal None Seen [facility] Comment on above: Order Comment: 'TROP ' Serial specimen #1, #2 or #3: 1 Performed By: #### L 500.3400, L501.2450, L100.0100, L500.2500, L501.4020, L300.8000 #### [facility] [address] [place], [address] WBC 50-100 SEEN Normal 0-5 [facility] Comment on above: Order Comment: 'TROP ' Serial specimen #1, #2 or #3: 1 Performed By: #### L 500.3400, L501.2450, L100.0100, L500.2500, L501.4020, L300.8000 #### [facility] [address] [place], [address] Mucus Ql (Urine sed) 1+ /hpf Normal [facility] Comment on above: Order Comment: 'TROP ' Serial specimen #1, #2 or #3: 1 Performed By: #### L 500.3400, L501.2450, L100.0100, L500.2500, L501.4020, L300.8000 #### [facility] [address] [place], [place], [id number] Urine blood detectionOrdered By: Christian Merlos on 06-16-2024 Urine Occult Blood 150 /ul High Negative [facility] Urine clarityOrdered By: Dorina Merlos on 06-16-2024 Clarity (U) Sl. Cloudy Clear [facility] Urine color determinationOrd ered By: Christian Merlos on 06-16-2024 Color (U) Yellow Yellow [facility] Urine cultureOrdered By: Dorina Merlos on 06-16-2024 Bacteria identified Cx Nom (U) GNR Poss Pseudomonas sp Abnormal [facility] Bacteria identified Cx Nom (U) Yeast, not Joleen albicans Abnormal [facility] Urine leukocyte esterase det ection by dipstickOrdered By: Christian Merlos on 06-16-2024 Leukocyte esterase Test strip Ql (U) 100 /ul High Negative [facility] Urine pHOrdered By: Christian Merlos on 06-16-2024 pH (U) 6.5 [pH] 5.0 - 8.0 [facility] Urine sediment bacteria coun t by microscopy (number/high power field)Ordered By: Christian Merlos on 06-16-2024 Bacteria LM.HPF (Urine sed) [#/Area] 1 /[HPF] None Seen [facility] Urine specific gravity measu rementOrdered By: Christian Merlos on 06-16-2024 Specific gravity (U) [Rel density] 1.015 1.002-1.03 0 [facility] Urobilinogen Ql (U)Ordered B y: Christian Merlos on 06-16-2024 Urine Urobilinogen Normal mg/dl Normal [facility] White blood cell countOrdere d By: Christian Merlos on 06-16-2024 Urine WBC 50-100 SEEN /hpf 0-5 [facility] aPTT Coag (PPP) [Time]Ordere d By: Christian Merlos on 06-16-2024 aPTT Coag (Bld) [Time] 43.2 s High 24.1-36.2 [facility] Absolute neutrophil countOrd ered By: Darian Arceo on 06-14-2024 Neutrophils (Bld) [#/Vol] 4.4 10*3/uL 2.0-7.7 [facility] Basic Metabolic Profile (BMP )on 06-14-2024 BUN/CRE 12.4 RATIO Normal 10-20 [facility] Comment on above: Performed By: #### L 100.0100, L500.2500 ####[facility] [address] [place], [address] CA,Total 8.5 mg/dL Normal 8.5-10.1 [facility] Comment on above: Performed By: #### L 100.0100, L500.2500 ####[facility] [address] [place], [address] Chloride [Moles/Vol] 111 mmol/L High 98-107 [facility] Comment on above: Performed By: #### L 100.0100, L500.2500 ####[facility] [address] [place], [address] CO2 [Moles/Vol] 26.0 mmol/L Normal 21.0-32.0 [facility] Comment on above: Performed By: #### L 100.0100, L500.2500 ####[facility] [address] [place], [address] Creatinine [Mass/Vol] 0.81 mg/dL Normal 0.70-1.30 [facility] Comment on above: Result Comment: The validity of the calculated GFR GFRAA in patients over 70 years has not been determined. Clinical correlation is essential. Performed By: #### L 100.0100, L500.2500 ####[facility] [address] [place], [address] ECRCL 106.44 ml/min Normal [facility] Comment on above: Performed By: #### L 100.0100, L500.2500 ####[facility] [address] [place], [address] EST GFR - AA 124 mL/min Normal >60 [facility] Comment on above: Result Comment: Afri can Ivorian GFR Calc Performed By: #### L 100.0100, L500.2500 ####[facility] [address] [place], [address] GAP 7 Normal 5-15 [facility] Comment on above: Performed By: #### L 100.0100, L500.2500 ####[facility] [address] [place], [address] GFR/1.73 sq M.predicted among non-blacks MDRD (S/P/Bld) [Vol rate/Area] 102 mL/min/{1.73_m2} Normal >[address] [facility] Comment on above: Result Comment: Non- GFR Calc Performed By: #### L 100.0100, L500.2500 ####[facility] [address] [place], [address] Glucose [Mass/Vol] 161 mg/dL High 74-106 [facility] Comment on above: Result Comment: Fast ing Glucose result greater than or equal to 126 mg/dL suggests DIABETES MELLITUS per A.D.A. criteria. Performed By: #### L 100.0100, L500.2500 ####[facility] [address] [place], [address] Potassium [Moles/Vol] 3.2 mmol/L Low 3.5-5.1 [facility] Comment on above: Performed By: #### L 100.0100, L500.2500 ####[facility] [address] [place], [address] Sodium [Moles/Vol] 144 mmol/L Normal 136-145 [facility] Comment on above: Performed By: #### L 100.0100, L500.2500 ####[facility] [address] [place], [address] Urea nitrogen [Mass/Vol] 10 mg/dL Normal 7-18 [facility] Comment on above: Performed By: #### L 100.0100, L500.2500 ####[facility] [address] [place], [address] Basophil percentageOrdered B y: Darian Arceo on 06-14-2024 Basophils/100 WBC (Bld) 0.6 % 0-[address] [facility] Blood urea nitrogen (BUN)/cr eatinine ratioOrdered By: Darian Arceo on 06-14-2024 Urea nitrogen/Creatinine [Mass ratio] 12.4 mg/mg 10-20 [facility] CBC W/Diff, Automatedon 05-29 Absolute Lymph 2.62 X10 3/uL Normal 0.83-4.51 [facility] Comment on above: Performed By: #### L 100.0100, L500.2500 ####[facility] [address] [place], [address] Absolute Neut 4.4 X10 3/uL Normal 2.0-7.7 [facility] Comment on above: Performed By: #### L 100.0100, L500.2500 ####[facility] [address] [place], [address] Basophils/100 WBC (Bld) 0.6 % Normal 0-[address] [facility] Comment on above: Performed By: #### L 100.0100, L500.2500 ####[facility] [address] [place], [address] Eosinophils/100 WBC (Bld) 6.1 % High 0-5 [facility] Comment on above: Performed By: #### L 100.0100, L500.2500 ####[facility] [address] [place], [address] Erythrocyte distribution width (RBC) [Ratio] 16.3 % High 11.6-14.6 [facility] Comment on above: Performed By: #### L 100.0100, L500.2500 ####[facility] [address] [place], [address] Hematocrit (Bld) [Volume fraction] 40.4 % Normal 40-54 [facility] Comment on above: Performed By: #### L 100.0100, L500.2500 ####[facility] [address] [place], [address] Hemoglobin (Bld) [Mass/Vol] 12.9 g/dL Low 13.0-16. 5 [facility] Comment on above: Performed By: #### L 100.0100, L500.2500 ####[facility] [address] [place], [address] IG% 0.500 Normal 0.0-0.9 [facility] Comment on above: Result Comment: IG% - Immature Granulocytes (promyelocytes, myelocytes and metamyelocytes) > 1% indicates that a LEFT SHIFT is Present. Performed By: #### L 100.0100, L500.2500 ####[facility] [address] [place], [address] Lymphocytes/100 WBC (Bld) 30.6 % Normal 19-41 [facility] Comment on above: Performed By: #### L 100.0100, L500.2500 ####[facility] [address] [place], [address] MCH (RBC) [Entitic mass] 27.8 pg Normal 27.0-32.0 [facility] Comment on above: Performed By: #### L 100.0100, L500.2500 ####[facility] [address] [place], [address] MCHC (RBC) [Mass/Vol] 31.9 g/dL Low 32-36 [facility] Comment on above: Performed By: #### L 100.0100, L500.2500 ####[facility] [address] [place], [address] MCV (RBC) [Entitic vol] 87.1 fL Normal 80-[address] [facility] Comment on above: Performed By: #### L 100.0100, L500.2500 ####[facility] [address] [place], [address] Monocytes/100 WBC (Bld) 11.4 % High 0-10 [facility] Comment on above: Performed By: #### L 100.0100, L500.2500 ####[facility] [address] [place], [address] Neutrophils/100 WBC (Bld) 50.8 % Normal 47-70 [facility] Comment on above: Performed By: #### L 100.0100, L500.2500 ####[facility] [address] [place], [address] Nucleated RBC (Bld) [#/Vol] 0 10*3/uL Normal 0-5 [facility] Comment on above: Performed By: #### L 100.0100, L500.2500 ####[facility] [address] [place], [address] Platelet mean volume (Bld) [Entitic vol] 9.0 fL Normal 6.2-12.0 [facility] Comment on above: Performed By: #### L 100.0100, L500.2500 ####[facility] [address] [place], [address] Platelets (Bld) [#/Vol] 340 10*3/uL Normal 150-450 [facility] Comment on above: Performed By: #### L 100.0100, L500.2500 ####[facility] [address] [place], [address] RBC (Bld) [#/Vol] 4.64 10*6/uL Normal 4.6-6.2 [facility] Comment on above: Performed By: #### L 100.0100, L500.2500 ####[facility] [address] [place], [address] RDW SD 51.2 fl High 35.1-43.9 [facility] Comment on above: Performed By: #### L 100.0100, L500.2500 ####[facility] [address] [place], [address] WBC (Bld) [#/Vol] 8.6 10*3/uL Normal 4.4-11.0 [facility] Comment on above: Performed By: #### L 100.0100, L500.2500 ####[facility] [address] [place], [address] Carbon dioxide measurementOr dered By: Darian Arceo on 06-14-2024 CO2 [Moles/Vol] 26.0 mmol/L 21.0-32.0 [facility] Chloride measurementOrdered By: Darian Arceo on 06-14-2024 Chloride [Moles/Vol] 111 mmol/L High 98-107 [facility] Consultation - Infectious Dx on 06-14-2024 Consultation - Infectious Dx [facility] Medical Records Department [address] [place] [address] Consultation - Infectious Dx 06/14/24 1419 MR#: [id number] Acct: [id number] Name: BAUTISTA RUFFIN #: [id number] : 1960 64 From: Maulik Jenkins MD PCP: [place] [facility] Status:ADM IN Location: MS3 [id number] Assessment Plan Assessment/Plan (1) Acute UTI: PLAN: [...] performed and neg except as noted above. [facility] Medical History Atherosclerotic heart disease of [place] coronary artery without angina pectoris Depression Chronic [...] Laboratory Resul (more content not included)... Normal [facility] Discharge Instructionon 05-29 Discharge Instruction [facility] Medical Records Department [address] [place] [address] Instructions for Home/Discharge Instructions 06/14/24 1127 MR#: [id number] Acct: [id number] Name: BAUTISTA RUFFIN Rep #: [id number] : 1960 64 From: Darian Arceo MD PCP: [place] Hospital Status:ADM IN Discharge Instructions Diet Discharge [...] Attending Provider: Darian Arceo Primary Care Provider: [facility] Consulting Providers: Ronak Quiroz; Maulik Jenkins Discharge [...] Ronak Quiroz DO; Dr. Maulik Jenkins MD; [facility] Signed Normal [facility] Eosinophil percentageOrdered By: Darian Arceo on 06-14-2024 Eosinophils/100 WBC (Bld) 6.1 % High 0-5 [facility] Erythrocyte distribution wid th (RBC) [Ratio]Ordered By: Darian Arceo on 06-14-2024 Erythrocyte distribution width (RBC) [Entitic vol] 51.2 fL High 35.1-43.9 [facility] Erythrocyte distribution wid th ratioOrdered By: Darian Arceo on 06-14-2024 Erythrocyte distribution width (RBC) [Ratio] 16.3 % High 11.6-14.6 [facility] Estimated glomerular filtrat ion rate (GFR) AmericanOrdered By: Darian Arceo on 06-14-2024 Estimated GFR (MDRD) Amer 124 mL/min >60 [facility] Comment on above: GFR Calc Estimation of creatinine elzbieta aranceOrdered By: Darian Arceo on 06-14-2024 Estimated Creatinine Clearance Calc 106.44 ml/min [facility] Glomerular filtration rate ( GFR) estimationOrdered By: Darian Arceo on 06-14-2024 Estimated GFR (MDRD) Non-Af Amer 102 mL/min >60 [facility] Comment on above: Non- GFR Calc Glucose measurementOrdered B y: Darian Arceo on 06-14-2024 Glucose [Mass/Vol] 161 mg/dL High 74-106 [facility] Comment on above: Fasting Glucose resu lt greater than or equal to 126 mg/dL suggests DIABETES MELLITUS per A.D.A. criteria. Hematocrit Auto (Bld) [Volum e fraction]Ordered By: Darian Arceo on 06-14-2024 Hematocrit (Bld) [Volume fraction] 40.4 % 40-54 [facility] Hemoglobin measurementOrdere d By: Darian Arceo on 06-14-2024 Hemoglobin (Bld) [Mass/Vol] 12.9 g/dL Low 13.0-16. 5 [facility] Immature granulocytes/100 WB C Auto (Bld)Ordered By: Darian Arceo on 06-14-2024 Immature granulocytes/100 WBC (Bld) 0.500 % 0.0-0.9 [facility] Comment on above: IG% - Immature Granu locytes (promyelocytes, myelocytes and metamyelocytes) > 1% indicates that a LEFT SHIFT is Present. Lymphocytes Auto (Unsp spec) [#/Vol]Ordered By: Darian Arceo on 06-14-2024 Lymphocytes (Bld) [#/Vol] 2.62 10*3/uL 0.83-4.5 1 [facility] Lymphocytes/100 WBC Auto (Un sp spec)Ordered By: Darian Arceo on 06-14-2024 Lymphocytes/100 WBC (Bld) 30.6 % 19-41 [facility] MCV (mean corpuscular volume ) determinationOrdered By: Darian Arceo on 06-14-2024 MCV (RBC) [Entitic vol] 87.1 fL 80-[address] [facility] Mean corpuscular hemoglobin (MCH) determinationOrdered By: Darian Arceo on 06-14-2024 MCH (RBC) [Entitic mass] 27.8 pg 27.0-32.0 [facility] Mean corpuscular hemoglobin concentration (MCHC) determinationOrdered By: Darian Arceo on 06-14-2024 MCHC (RBC) [Mass/Vol] 31.9 g/dL Low 32-36 [facility] Mean platelet volume determi nationOrdered By: Darian Arceo on 06-14-2024 Platelet mean volume (Bld) [Entitic vol] 9.0 fL 6.2-12.0 [facility] Monocyte percentageOrdered B y: Darian Arceo on 06-14-2024 Monocytes/100 WBC (Bld) 11.4 % High 0-[address] [facility] Neutrophil percentageOrdered By: Darian Arceo on 06-14-2024 Neutrophils/100 WBC (Bld) 50.8 % 47-70 [facility] Nucleated red blood cell per centageOrdered By: Darian Arceo on 06-14-2024 Nucleated RBC/100 WBC (Bld) [Ratio] 0 % 0-5 [facility] Platelet countOrdered By: Joellen Arceo on 06-14-2024 Platelets (Bld) [#/Vol] 340 10*3/uL 150-450 [facility] Potassium measurementOrdered By: Darian Arceo on 06-14-2024 Potassium [Moles/Vol] 3.2 mmol/L Low 3.5-5.1 [facility] RBC Auto (Bld) [#/Vol]Ordere d By: Darian Arceo on 06-14-2024 RBC (Bld) [#/Vol] 4.64 10*6/uL 4.6-6.2 [facility] Serum anion gap measurementO rdered By: Darian Arceo on 06-14-2024 Anion gap [Moles/Vol] 7 mmol/L 5-15 [facility] Serum or plasma calcium shantal urement (mass/volume)Ordered By: Darian Arceo on 06-14-2024 Calcium [Mass/Vol] 8.5 mg/dL 8.5-10.1 [facility] Serum or plasma creatinine m easurement (mass/volume)Ordered By: Darian Arceo on 06-14-2024 Creatinine [Mass/Vol] 0.81 mg/dL 0.70-1.30 [facility] Comment on above: The validity of the calculated GFR & GFRAA in patients over 70 years has not been determined. Clinical correlation is essential. Serum or plasma urea nitroge n measurement (mass/volume)Ordered By: Darian Arceo on 06-14-2024 Urea nitrogen [Mass/Vol] 10 mg/dL 7-18 [facility] Sodium levelOrdered By: Danny Arceo on 06-14-2024 Sodium [Moles/Vol] 144 mmol/L 136-145 [facility] Urine Cultureon 06-14-2024 URC Additional sensitivi ty to follow. Pseudomonas aeruginosa [place] Count >100,000 Pseudomonas aeruginosa: REACTION Aztreonam Islt KB 14 Pseudomonas aeruginosa: REACTION Cefepime Islt HARMAN 1 Ciprofloxacin Islt HARMAN >=4 R levoFLOXacin Islt HARMAN >=8 R Meropenem Islt HARMAN 1 S Pip+Tazo Islt HARMAN <=4 S Pseudomonas aeruginosa: REACTION Amikacin Islt HARMAN 4 Imipenem Islt HARMAN R Tobramycin Islt HARMAN <=1 S Normal [facility] Comment on above: Performed By: #### L 500.3400, L501.2450, L100.0100, L500.2500, L501.4020, L300.8000 #### [facility] [address] [place], [address] White blood cell (WBC) count Ordered By: Darian Arceo on 06-14-2024 WBC (Bld) [#/Vol] 8.6 10*3/uL 4.4-11.0 [facility] Basic Metabolic Profile (BMP )on 06-13-2024 BUN/CRE 17.2 RATIO Normal 10-20 [facility] Comment on above: Performed By: #### L 100.0100, L500.2500 ####[facility] [address] [place], [address] CA,Total 8.4 mg/dL Low 8.5-10.1 [facility] Comment on above: Performed By: #### L 100.0100, L500.2500 ####[facility] [address] [place], [address] Chloride [Moles/Vol] 108 mmol/L High 98-107 [facility] Comment on above: Performed By: #### L 100.0100, L500.2500 ####[facility] [address] [place], [address] CO2 [Moles/Vol] 24.0 mmol/L Normal 21.0-32.0 [facility] Comment on above: Performed By: #### L 100.0100, L500.2500 ####[facility] [address] [place], [address] Creatinine [Mass/Vol] 0.64 mg/dL Low 0.70-1.30 [facility] Comment on above: Result Comment: The validity of the calculated GFR GFRAA in patients over 70 years has not been determined. Clinical correlation is essential. Performed By: #### L 100.0100, L500.2500 ####[facility] [address] [place], [address] ECRCL 134.72 ml/min Normal [facility] Comment on above: Performed By: #### L 100.0100, L500.2500 ####[facility] [address] [place], [address] EST GFR - AA 163 mL/min Normal >60 [facility] Comment on above: Result Comment: Afri can Ivorian GFR Calc Performed By: #### L 100.0100, L500.2500 ####[facility] [address] [place], [address] GAP 8 Normal 5-15 [facility] Comment on above: Performed By: #### L 100.0100, L500.2500 ####[facility] [address] [place], [address] GFR/1.73 sq M.predicted among non-blacks MDRD (S/P/Bld) [Vol rate/Area] 134 mL/min/{1.73_m2} Normal >[address] [facility] Comment on above: Result Comment: Non- GFR Calc Performed By: #### L 100.0100, L500.2500 ####[facility] [address] [place], [address] Glucose [Mass/Vol] 95 mg/dL Normal 74-106 [facility] Comment on above: Performed By: #### L 100.0100, L500.2500 ####[facility] [address] [place], [address] Potassium [Moles/Vol] 3.2 mmol/L Low 3.5-5.1 [facility] Comment on above: Performed By: #### L 100.0100, L500.2500 ####[facility] [address] [place], [address] Sodium [Moles/Vol] 140 mmol/L Normal 136-145 [facility] Comment on above: Performed By: #### L 100.0100, L500.2500 ####[facility] [address] [place], [address] Urea nitrogen [Mass/Vol] 11 mg/dL Normal 7-18 [facility] Comment on above: Performed By: #### L 100.0100, L500.2500 ####[facility] [address] [place], [address] CBC W/Diff, Automatedon 05-29 Absolute Lymph 2.73 X10 3/uL Normal 0.83-4.51 [facility] Comment on above: Performed By: #### L 100.0100, L500.2500 ####[facility] [address] [place], [address] Absolute Neut 4.2 X10 3/uL Normal 2.0-7.7 [facility] Comment on above: Performed By: #### L 100.0100, L500.2500 ####[facility] [address] [place], [address] Basophils/100 WBC (Bld) 0.4 % Normal 0-[address] [facility] Comment on above: Performed By: #### L 100.0100, L500.2500 ####[facility] [address] [place], [address] Eosinophils/100 WBC (Bld) 3.5 % Normal 0-5 [facility] Comment on above: Performed By: #### L 100.0100, L500.2500 ####[facility] [address] [place], [address] Erythrocyte distribution width (RBC) [Ratio] 15.9 % High 11.6-14.6 [facility] Comment on above: Performed By: #### L 100.0100, L500.2500 ####[facility] [address] [place], [address] Hematocrit (Bld) [Volume fraction] 40.3 % Normal 40-54 [facility] Comment on above: Performed By: #### L 100.0100, L500.2500 ####[facility] [address] [place], [address] Hemoglobin (Bld) [Mass/Vol] 13.0 g/dL Normal 13.0-16. 5 [facility] Comment on above: Performed By: #### L 100.0100, L500.2500 ####[facility] [address] [place], [address] IG% 0.200 Normal 0.0-0.9 [facility] Comment on above: Result Comment: IG% - Immature Granulocytes (promyelocytes, myelocytes and metamyelocytes) > 1% indicates that a LEFT SHIFT is Present. Performed By: #### L 100.0100, L500.2500 ####[facility] [address] [place], [address] Lymphocytes/100 WBC (Bld) 33.7 % Normal 19-41 [facility] Comment on above: Performed By: #### L 100.0100, L500.2500 ####[facility] [address] [place], [address] MCH (RBC) [Entitic mass] 27.4 pg Normal 27.0-32.0 [facility] Comment on above: Performed By: #### L 100.0100, L500.2500 ####[facility] [address] [place], [address] MCHC (RBC) [Mass/Vol] 32.3 g/dL Normal 32-36 [facility] Comment on above: Performed By: #### L 100.0100, L500.2500 ####[facility] [address] [place], [address] MCV (RBC) [Entitic vol] 84.8 fL Normal 80-[address] [facility] Comment on above: Performed By: #### L 100.0100, L500.2500 ####[facility] [address] [place], [address] Monocytes/100 WBC (Bld) 10.6 % High 0-[address] [facility] Comment on above: Performed By: #### L 100.0100, L500.2500 ####[facility] [address] [place], [address] Neutrophils/100 WBC (Bld) 51.6 % Normal 47-70 [facility] Comment on above: Performed By: #### L 100.0100, L500.2500 ####[facility] [address] [place], [address] Nucleated RBC (Bld) [#/Vol] 0 10*3/uL Normal 0-5 [facility] Comment on above: Performed By: #### L 100.0100, L500.2500 ####[facility] [address] [place], [address] Platelet mean volume (Bld) [Entitic vol] 9.0 fL Normal 6.2-12.0 [facility] Comment on above: Performed By: #### L 100.0100, L500.2500 ####[facility] [address] [place], [address] Platelets (Bld) [#/Vol] 311 10*3/uL Normal 150-450 [facility] Comment on above: Performed By: #### L 100.0100, L500.2500 ####[facility] [address] [place], [address] RBC (Bld) [#/Vol] 4.75 10*6/uL Normal 4.6-6.2 [facility] Comment on above: Performed By: #### L 100.0100, L500.2500 ####[facility] [address] [place], [address] RDW SD 49.3 fl High 35.1-43.9 [facility] Comment on above: Performed By: #### L 100.0100, L500.2500 ####[facility] [address] [place], [address] WBC (Bld) [#/Vol] 8.1 10*3/uL Normal 4.4-11.0 [facility] Comment on above: Performed By: #### L 100.0100, L500.2500 ####[facility] [address] [place], [address] Folates, (Folic Acid)on 05-29 FOLATES 46.60 ng/mL Normal 3.1-55.4 [facility] Comment on above: Order Comment: 'TROP ' Serial specimen #1, #2 or #3: 1 Performed By: #### L 500.3400, L501.2450, L100.0100, L500.2500, L501.4020, L300.8000 #### [facility] [address] [place], [address] Folic acid measurementOrdere d By: Ronak Cui on 06-12-2024 Folate 46.60 ng/mL 3.1-55.4 [facility] Legionella Antigen Urineon 0 06-12-2024 LEGU URINE, SUPRAPUBIC Legionella Antigen result interpretation: L pneumo Ag Ur Ql Negative Presumptive negative for Legionella pneumophila serogroup 1 antigen in urine, suggesting no recent or current infection. Legionella Ag, Urine Negative (See interpretation below) Normal [facility] Comment on above: Performed By: #### L 500.3400, L501.2450, L100.0100, L500.2500, L501.4020, L300.8000 #### [facility] [address] [place], [address] Methadone, urineOrdered By: Ronak Cui on 06-12-2024 Urine Methadone Screen Negative < 300 ng/mL [facility] No Panel InformationOrdered By: Ronak Cui on 06-12-2024 Urine Drug Screen Comment [facility] Comment on above: CONFIRMATORY TESTING FOR ALL [...] Ql (U) Positive High < 300 ng/mL [facility] Strep pneumoniae Antig(UR,CS F)on 06-12-2024 STPAG URINE, [...] been changed. 06/12/24 1523 by KARAN Funez [facility] Comment on above: Performed By: #### L 500.3400, L501.2450, L100.0100, L500.2500, L501.4020, L300.8000 #### [facility] [address] [place], [address] TSH QnOrdered By: Ronak muro on 06-12-2024 Thyroid Stimulating Hormone (TSH) 4.130 uIU/mL High 0.358-3.74 0 [facility] Thyroid Stim Hormone (TSH)on 06-12-2024 TSH 4.130 uIU/mL High 0.358-3.74 0 [facility] Comment on above: Order Comment: 'TROP ' Serial specimen #1, #2 or #3: 1 Performed By: #### L 500.3400, L501.2450, L100.0100, L500.2500, L501.4020, L300.8000 #### [facility] [address] [place], [address] Urine Drug Screen (VISTA)on 06-12-2024 AMPHETAMINES Negative Normal <1000 ng/mL [facility] Comment on above: Performed By: #### L 500.3400, L501.2450, L100.0100, L500.2500, L501.4020, L300.8000 #### [facility] [address] [place], [address] BARBITIURATES Negative Normal < 200 ng/mL [facility] Comment on above: Performed By: #### L 500.3400, L501.2450, L100.0100, L500.2500, L501.4020, L300.8000 #### [facility] [address] [place], [address] BENZODIAZIPINE Negative Normal < 200 ng/mL [facility] Comment on above: Performed By: #### L 500.3400, L501.2450, L100.0100, L500.2500, L501.4020, L300.8000 #### [facility] [address] [place], [address] COCAINE Negative Normal < 300 ng/mL [facility] Comment on above: Performed By: #### L 500.3400, L501.2450, L100.0100, L500.2500, L501.4020, L300.8000 #### [facility] [address] [place], [address] ECSTACY Negative Normal < 500 ng/mL [facility] Comment on above: Performed By: #### L 500.3400, L501.2450, L100.0100, L500.2500, L501.4020, L300.8000 #### [facility] [address] [place], [facility] METHADONE Negative Normal < 300 ng/mL [facility] Comment on above: Performed By: #### L 500.3400, L501.2450, L100.0100, L500.2500, L501.4020, L300.8000 #### [facility] [address] [place], [facility] OPIATES Positive Abnormal < 300 ng/mL [facility] Comment on above: Performed By: #### L 500.3400, L501.2450, L100.0100, L500.2500, L501.4020, L300.8000 #### [facility] [address] [place], [facility] PCP Negative Normal < 25 ng/mL [facility] Comment on above: Performed By: #### L 500.3400, L501.2450, L100.0100, L500.2500, L501.4020, L300.8000 #### [facility] [address] [place], [facility] THC Positive Abnormal < 50 ng/mL [facility] Comment on above: Performed By: #### L 500.3400, L501.2450, L100.0100, L500.2500, L501.4020, L300.8000 #### [facility] [address] [place], [facility] VISTA UDS PH 5 Normal [facility] Comment on above: Performed By: #### L 500.3400, L501.2450, L100.0100, L500.2500, L501.4020, L300.8000 #### [facility] [address] [place], [address] Urine amphetamine measuremen tOrdered By: Ronak Cui on 06-12-2024 Amphetamines Ql (U) Negative <1000 ng/mL [facility] Urine barbiturates measureme ntOrdered By: Ronak Cui on 06-12-2024 Urine Barbiturates Screen Negative < 200 ng/mL [facility] Urine benzodiazepine levelOr dered By: Ronak Cui on 06-12-2024 Benzodiazepines Ql (U) Negative < 200 ng/mL [facility] Urine cocaine levelOrdered B y: Ronak Cui on 06-12-2024 Cocaine Ql (U) Negative < 300 ng/mL [facility] Urine nfpgj-8-uqhmdqsjxvgapq abinol (THC) measurementOrdered By: Ronak Cui on 06-12-2024 Cannabinoids Screen Ql (U) Positive High < 50 ng/m L [facility] Urine methylenedioxymethamph etamine (MDMA) measurementOrdered By: Ronak Cui on 06-12-2024 MDMA (Ecstasy) Screen Negative < 500 ng/mL [facility] Urine phencyclidine (PCP) de tectionOrdered By: Ronak Cui on 06-12-2024 Phencyclidine Ql (U) Negative < 25 ng/mL [facility] Vitamin B12on 06-12-2024 Cobalamin (Vitamin B12) [Mass/Vol] 551 pg/mL Normal 211-911 [facility] Comment on above: Performed By: #### L 500.3400, L501.2450, L100.0100, L500.2500, L501.4020, L300.8000 #### [facility] [address] [place], [address] Vitamin B12 measurementOrder ed By: Ronak Cui on 06-12-2024 Cobalamin (Vitamin B12) [Mass/Vol] 551 pg/mL 211-911 [facility] Albumin to globulin ratioOrd ered By: Alma Rosa Pedroza on 06-11-2024 Albumin/Globulin [Mass ratio] 0.6 {ratio} Low 0.9-2.4 [facility] Bilirubin Test strip Ql (U)O rdered By: Alma Rosa Sheehanelizabeth on 06-11-2024 Bilirubin Ql (U) Negative Negative [facility] Bilirubin, totalOrdered By: Alma Rosa Sheehanelizabeth on 06-11-2024 Bilirubin [Mass/Vol] 0.40 mg/dL 0.20-1.00 [facility] Comment on above: For patients on eltr ombopag therapy, use of Dimension Dawson TBIL is not recommended. Blood cultureOrdered By: Marquita parr Kasia on 06-11-2024 Bacteria identified Cx Nom (Bld) No growth in 5 days. [facility] Bacteria identified Cx Nom (Bld) No growth in 5 days. [facility] CBC W/Diff, Automatedon 05-29 Absolute Lymph 2.16 X10 3/uL Normal 0.83-4.51 [facility] Comment on above: Performed By: #### L 500.3400, L501.2450, L100.0100, L500.2500, L501.4020, L300.8000 #### [facility] [address] [place], [address] Absolute Neut 9.6 X10 3/uL High 2.0-7.7 [facility] Comment on above: Performed By: #### L 500.3400, L501.2450, L100.0100, L500.2500, L501.4020, L300.8000 #### [facility] [address] [place], [address] Basophils/100 WBC (Bld) 0.3 % Normal 0-[address] [facility] Comment on above: Performed By: #### L 500.3400, L501.2450, L100.0100, L500.2500, L501.4020, L300.8000 #### [facility] [address] [place], [address] Eosinophils/100 WBC (Bld) 0.7 % Normal 0-5 [facility] Comment on above: Performed By: #### L 500.3400, L501.2450, L100.0100, L500.2500, L501.4020, L300.8000 #### [facility] [address] [place], [address] Erythrocyte distribution width (RBC) [Ratio] 16.1 % High 11.6-14.6 [facility] Comment on above: Performed By: #### L 500.3400, L501.2450, L100.0100, L500.2500, L501.4020, L300.8000 #### [facility] [address] [place], [address] Hematocrit (Bld) [Volume fraction] 47.0 % Normal 40-54 [facility] Comment on above: Performed By: #### L 500.3400, L501.2450, L100.0100, L500.2500, L501.4020, L300.8000 #### [facility] [address] [place], [address] Hemoglobin (Bld) [Mass/Vol] 15.4 g/dL Normal 13.0-16. 5 [facility] Comment on above: Performed By: #### L 500.3400, L501.2450, L100.0100, L500.2500, L501.4020, L300.8000 #### [facility] [address] [place], [address] IG% 0.400 Normal 0.0-0.9 [facility] Comment on above: Result Comment: IG% - Immature Granulocytes (promyelocytes, myelocytes and metamyelocytes) > 1% indicates that a LEFT SHIFT is Present. Performed By: #### L 500.3400, L501.2450, L100.0100, L500.2500, L501.4020, L300.8000 #### [facility] [address] [place], [address] Lymphocytes/100 WBC (Bld) 17.0 % Low 19-41 [facility] Comment on above: Performed By: #### L 500.3400, L501.2450, L100.0100, L500.2500, L501.4020, L300.8000 #### [facility] [address] [place], [address] MCH (RBC) [Entitic mass] 27.6 pg Normal 27.0-32.0 [facility] Comment on above: Performed By: #### L 500.3400, L501.2450, L100.0100, L500.2500, L501.4020, L300.8000 #### [facility] [address] [place], [address] MCHC (RBC) [Mass/Vol] 32.8 g/dL Normal 32-36 [facility] Comment on above: Performed By: #### L 500.3400, L501.2450, L100.0100, L500.2500, L501.4020, L300.8000 #### [facility] [address] [place], [address] MCV (RBC) [Entitic vol] 84.2 fL Normal 80-94 [facility] Comment on above: Performed By: #### L 500.3400, L501.2450, L100.0100, L500.2500, L501.4020, L300.8000 #### [facility] [address] [place], [address] Monocytes/100 WBC (Bld) 6.0 % Normal 0-10 [facility] Comment on above: Performed By: #### L 500.3400, L501.2450, L100.0100, L500.2500, L501.4020, L300.8000 #### [facility] [address] [place], [address] Neutrophils/100 WBC (Bld) 75.6 % High 47-70 [facility] Comment on above: Performed By: #### L 500.3400, L501.2450, L100.0100, L500.2500, L501.4020, L300.8000 #### [facility] [address] [place], [address] Nucleated RBC (Bld) [#/Vol] 0 10*3/uL Normal 0-5 [facility] Comment on above: Performed By: #### L 500.3400, L501.2450, L100.0100, L500.2500, L501.4020, L300.8000 #### [facility] [address] [place], [address] Platelet mean volume (Bld) [Entitic vol] 8.9 fL Normal 6.2-12.0 [facility] Comment on above: Performed By: #### L 500.3400, L501.2450, L100.0100, L500.2500, L501.4020, L300.8000 #### [facility] [address] [place], [address] Platelets (Bld) [#/Vol] 416 10*3/uL Normal 150-450 [facility] Comment on above: Performed By: #### L 500.3400, L501.2450, L100.0100, L500.2500, L501.4020, L300.8000 #### [facility] [address] [place], [address] RBC (Bld) [#/Vol] 5.58 10*6/uL Normal 4.6-6.2 [facility] Comment on above: Performed By: #### L 500.3400, L501.2450, L100.0100, L500.2500, L501.4020, L300.8000 #### [facility] [address] [place], [address] RDW SD 48.9 fl High 35.1-43.9 [facility] Comment on above: Performed By: #### L 500.3400, L501.2450, L100.0100, L500.2500, L501.4020, L300.8000 #### [facility] [address] [place], [address] WBC (Bld) [#/Vol] 12.7 10*3/uL High 4.4-11.0 [facility] Comment on above: Performed By: #### L 500.3400, L501.2450, L100.0100, L500.2500, L501.4020, L300.8000 #### [facility] [address] [place], [address] Calcium oxalate crystals LM Ql (Urine sed)Ordered By: Alma Rosa Pedroza on 06-11-2024 Urine Calcium Oxalate Crystals 1+ /hpf [facility] Chest 1 View (Portable)on Chest 1 View (Portable) [facility] Imaging Services [address] [place] [address] Chest 1 View (Portable) MR#: [id number] Acct: [id number] Name: BAUTISTA RUFFIN Rep #: [id number] : 1960 M 64 From: Bautista De La Paz MD PCP: [facility] Status: [facility] ER Study: Chest 1 View (Portable) Date of Exam: 06/11/24 Exam# [id number] Ordering Dr: Alma Rosa Pedroza DO [id number] STUDY: X-RAY CHEST REASON FOR EXAM: Male, [...] 18:32 EST Reading Location ID and State: [address] [place] [address] Tel , Service support , CC: Dr. Alma Rosa Pedroza DO; [facility] Straight Line Edger: Signed Normal [facility] Chest without Contraston Chest without Contrast [facility] Imaging Services [address] [place] [address] Chest without Contrast MR#: [id number] Acct: [id number] Name: BAUTISTA RUFFIN Rep #: [id number] : 1960 M 64 From: Bautista De La Paz MD PCP: [facility] Status: ADM IN Study: Chest without Contrast Date of Exam: 06/11/24 Exam# [id number] Ordering Dr: Ronak Quiroz [place] [id number] INDICATION: Suspected RUL PNA on CXR. EXAMINATION: [...] 22:35 EST Reading Location ID and State: [address] [place] [address] Tel , Service support , CC: Dr. Ronak Quiroz, DO; [facility] Straight Line Edger: Signed Normal [facility] Comprehensive Metabolic Prof ilon 06-11-2024 Albumin [Mass/Vol] 2.8 g/dL Low 3.2-5.0 [facility] Comment on above: Order Comment: 'TROP ' Serial specimen #1, #2 or #3: 1 Performed By: #### L 500.3400, L501.2450, L100.0100, L500.2500, L501.4020, L300.8000 #### [facility] [address] [place], [address] Albumin/Globulin [Mass ratio] 0.6 {ratio} Low 0.9-2.4 [facility] Comment on above: Order Comment: 'TROP ' Serial specimen #1, #2 or #3: 1 Performed By: #### L 500.3400, L501.2450, L100.0100, L500.2500, L501.4020, L300.8000 #### [facility] [address] [place], [address] ALK P 168 U/L High 45-117 [facility] Comment on above: Order Comment: 'TROP ' Serial specimen #1, #2 or #3: 1 Performed By: #### L 500.3400, L501.2450, L100.0100, L500.2500, L501.4020, L300.8000 #### [facility] [address] [place], [address] ALT [Catalytic activity/Vol] 10 U/L Low 16-61 [facility] Comment on above: Order Comment: 'TROP ' Serial specimen #1, #2 or #3: 1 Performed By: #### L 500.3400, L501.2450, L100.0100, L500.2500, L501.4020, L300.8000 #### [facility] [address] [place], [address] AST [Catalytic activity/Vol] 10 U/L Low 15-37 [facility] Comment on above: Order Comment: 'TROP ' Serial specimen #1, #2 or #3: 1 Performed By: #### L 500.3400, L501.2450, L100.0100, L500.2500, L501.4020, L300.8000 #### [facility] [address] [place], [address] Bilirubin [Mass/Vol] 0.40 mg/dL Normal 0.20-1.00 [facility] Comment on above: Order Comment: 'TROP ' Serial specimen #1, #2 or #3: 1 Result Comment: For patients on eltrombopag therapy, use of Dimension Dawson TBIL is not recommended. Performed By: #### L 500.3400, L501.2450, L100.0100, L500.2500, L501.4020, L300.8000 #### [facility] [address] [place], [address] BUN/CRE 19.7 RATIO Normal 10-20 [facility] Comment on above: Order Comment: 'TROP ' Serial specimen #1, #2 or #3: 1 Performed By: #### L 500.3400, L501.2450, L100.0100, L500.2500, L501.4020, L300.8000 #### [facility] [address] [place], [address] CA,Total 9.5 mg/dL Normal 8.5-10.1 [facility] Comment on above: Order Comment: 'TROP ' Serial specimen #1, #2 or #3: 1 Performed By: #### L 500.3400, L501.2450, L100.0100, L500.2500, L501.4020, L300.8000 #### [facility] [address] [place], [address] Chloride [Moles/Vol] 106 mmol/L Normal 98-107 [facility] Comment on above: Order Comment: 'TROP ' Serial specimen #1, #2 or #3: 1 Performed By: #### L 500.3400, L501.2450, L100.0100, L500.2500, L501.4020, L300.8000 #### [facility] [address] [place], [address] CO2 [Moles/Vol] 25.0 mmol/L Normal 21.0-32.0 [facility] Comment on above: Order Comment: 'TROP ' Serial specimen #1, #2 or #3: 1 Performed By: #### L 500.3400, L501.2450, L100.0100, L500.2500, L501.4020, L300.8000 #### [facility] [address] [place], [address] Creatinine [Mass/Vol] 0.61 mg/dL Low 0.70-1.30 [facility] Comment on above: Order Comment: 'TROP ' Serial specimen #1, #2 or #3: 1 Result Comment: The validity of the calculated GFR GFRAA in patients over 70 years has not been determined. Clinical correlation is essential. Performed By: #### L 500.3400, L501.2450, L100.0100, L500.2500, L501.4020, L300.8000 #### [facility] [address] [place], [address] ECRCL 123.95 ml/min Normal [facility] Comment on above: Order Comment: 'TROP ' Serial specimen #1, #2 or #3: 1 Performed By: #### L 500.3400, L501.2450, L100.0100, L500.2500, L501.4020, L300.8000 #### [facility] [address] [place], [address] EST GFR - AA 172 mL/min Normal >60 [facility] Comment on above: Order Comment: 'TROP ' Serial specimen #1, #2 or #3: 1 Result Comment: Afri can Ivorian GFR Calc Performed By: #### L 500.3400, L501.2450, L100.0100, L500.2500, L501.4020, L300.8000 #### [facility] [address] [place], [address] GAP 9 Normal 5-15 [facility] Comment on above: Order Comment: 'TROP ' Serial specimen #1, #2 or #3: 1 Performed By: #### L 500.3400, L501.2450, L100.0100, L500.2500, L501.4020, L300.8000 #### [facility] [address] [place], [address] GFR/1.73 sq M.predicted among non-blacks MDRD (S/P/Bld) [Vol rate/Area] 142 mL/min/{1.73_m2} Normal >[address] [facility] Comment on above: Order Comment: 'TROP ' Serial specimen #1, #2 or #3: 1 Result Comment: Non- GFR Calc Performed By: #### L 500.3400, L501.2450, L100.0100, L500.2500, L501.4020, L300.8000 #### [facility] [address] [place], [address] Globulin (S) [Mass/Vol] 5.0 g/dL High 2.2-4.2 [facility] Comment on above: Order Comment: 'TROP ' Serial specimen #1, #2 or #3: 1 Performed By: #### L 500.3400, L501.2450, L100.0100, L500.2500, L501.4020, L300.8000 #### [facility] [address] [place], [address] Glucose [Mass/Vol] 107 mg/dL High 74-106 [facility] Comment on above: Order Comment: 'TROP ' Serial specimen #1, #2 or #3: 1 Result Comment: Fast ing Glucose result from 100 to 125 mg/dL suggests IMPAIRED HOMEOSTASIS per A.D.A. criteria. Performed By: #### L 500.3400, L501.2450, L100.0100, L500.2500, L501.4020, L300.8000 #### [facility] [address] [place], [address] Potassium [Moles/Vol] 3.4 mmol/L Low 3.5-5.1 [facility] Comment on above: Order Comment: 'TROP ' Serial specimen #1, #2 or #3: 1 Performed By: #### L 500.3400, L501.2450, L100.0100, L500.2500, L501.4020, L300.8000 #### [facility] [address] [place], [address] Sodium [Moles/Vol] 140 mmol/L Normal 136-145 [facility] Comment on above: Order Comment: 'TROP ' Serial specimen #1, #2 or #3: 1 Performed By: #### L 500.3400, L501.2450, L100.0100, L500.2500, L501.4020, L300.8000 #### [facility] [address] [place], [address] T PROT 7.8 g/dL Normal 6.4-8.2 [facility] Comment on above: Order Comment: 'TROP ' Serial specimen #1, #2 or #3: 1 Performed By: #### L 500.3400, L501.2450, L100.0100, L500.2500, L501.4020, L300.8000 #### [facility] [address] [place], [address] Urea nitrogen [Mass/Vol] 12 mg/dL Normal 7-18 [facility] Comment on above: Order Comment: 'TROP ' Serial specimen #1, #2 or #3: 1 Performed By: #### L 500.3400, L501.2450, L100.0100, L500.2500, L501.4020, L300.8000 #### [facility] [address] [place], [address] Emergency Department Summary on 06-11-2024 Emergency Department Summary [facility] Medical Records Department [address] [place] [address] Emergency Department Summary 06/11/24 MR#: [id number] Acct: [id number] Name: BAUTISTA RUFFIN Rep #: [id number] : 1960 64 From: Alma Rosa Pedroza DO PCP: [facility] Status:[facility] History of Present Illness Chief Complaint: [...] intertrochanteric hip fracture. Patient was transferred to [facility] for definitive care as he had [...] vomiting or diarrhea. He denies abdominal pain. 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 Normal [facility] Epithelial cells.squamous LM Ql (Urine sed)Ordered By: Alma Rosa Pedroza on 06-11-2024 Epithelial cells.squamous LM.HPF (Urine sed) [#/Area] 0 /[HPF] 0-5 [facility] Glucose Ql (U)Ordered By: Julia waldrop Kasia on 06-11-2024 Urine Glucose (UA) Normal mg/dl Normal [facility] H AND P Exam - Hospitaliston 06-11-2024 H&P Exam - Hospitalist [facility] Medical Records Department [address] [place] [address] H P Exam - Hospitalist 06/11/242112 MR#: [id number] Acct: [id number] Name: BAUTISTA RUFFIN Rep #: [id number] : 1960 64 From: oRnak Quiroz DO PCP: [facility] Status:ADM IN Location: [facility] NW437-5 HPI - General General Date of Admission: [...] in his femur - s/p evaluation at [facility] with patient not felt to be a surgical candidate and recommended to follow-up with the [facility] who presents to [facility] ER complaining of worsening Right hip pain, [...] is expected to extend beyond 2 midnights. 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 Normal [facility] HIP, UNI W/ Pelvis 2-3 Views on 06-11-2024 HIP, UNI W/ Pelvis 2-3 Views [facility] Imaging Services [address] [place], [place] [address] HIP, UNI W/ Pelvis 2-3 Views MR#: [id number] Acct: [id number] Name: BAUTISTA RUFFIN Rep #: [id number] : 1960 64 From: Garry Cobian DO PCP: [facility] Status: REG ER Study: HIP, UNI W/ Pelvis 2-3 Views Date of Exam: Exam# [id number] Ordering Dr: Alma Rosa Pedroza DO [id number] INDICATION: pain EXAMINATION/TECHNIQUE: X-RAY - XR Hip [...] , CC: Dr. Alma Rosa Pedroza DO; [facility] Straight Line Edger: Signed Normal [facility] Influenza virus A and B and SARS-CoV-2 (COVID-19) and Respiratory syncytial virus RNAOrdered By: Alma Rosa Pedroza on 06-11-2024 SARS-CoV-2 (COVID-19) RNA ZEKE+probe Ql (Unsp spec) [facility] Ketones Test strip Ql (U)Ord ered By: Alma Rosa Pedroza on 06-11-2024 Ketones Ql (U) 150 mg/dl Abnormal Negative [facility] Comment on above: CRITICAL VALUE *HCRI TICAL VALUE CALLED TO AXFGTC58/14/25 1805 Lilian Multani.RESULTS READ BACK BY SAME. L. pneumophila Ag Ql (U)Orde red By: Ronak Cui on 06-11-2024 Legionella Antigen [facility] L501.4020on 06-11-2024 TROPONIN-I HS 6 pg/mL Normal 3.0-78.0 [facility] Comment on above: Order Comment: 'TROP ' Serial specimen #1, #2 or #3: 1 Result Comment: Plea se Note: New Test Units and Gender Specific Reference Ranges. For more information see Policy Stat Procedure Dawson High Sensitivity Troponin (TNIH) and attachments. Performed By: #### L 500.3400, L501.2450, L100.0100, L500.2500, L501.4020, L300.8000 #### [facility] [address] [place], [address] Laboratory - Chemistry and C hemistry - challengeOrdered By: Alma Rosa Pedroza on 06-11-2024 AST [Catalytic activity/Vol] 10 U/L Low 15-37 [facility] Lactic Acidon 01-14-2025 Lactate [Moles/Vol] 1.4 mmol/L Normal 0.4-1.9 [facility] Comment on above: Order Comment: Y Performed By: #### L 500.3400, L501.2450, L100.0100, L500.2500, L501.4020, L300.8000 #### [facility] [address] [place], [place], [address] Lactic acid measurementOrder ed By: Alma Rosa Pedroza on 06-11-2024 Lactate [Moles/Vol] 1.4 mmol/L 0.4-2.0 [facility] M100.678on 06-11-2024 M100.678 Pending SARS-CoV-2 (COVID 19) Negative INFLUENZA A Negative INFLUENZA B Negative RSV PCR Negative Normal [facility] Comment on above: Performed By: #### L 500.3400, L501.2450, L100.0100, L500.2500, L501.4020, L300.8000 #### [facility] [address] [place], [place], [address] Microscopic analysis of urin e for red blood cells (RBC)Ordered By: Alma Rosa Pedroza on 06-11-2024 Urine RBC 25-50 SEEN /hpf 0-5 [facility] Mucus LM Ql (Urine sed)Order ed By: Alma Rosa Pedroza on 06-11-2024 Mucus Ql (Urine sed) 2+ /hpf [facility] Nitrite Test strip Ql (U)Ord ered By: Alma Rosa Pedroza on 06-11-2024 Nitrite Ql (U) Positive High Negative [facility] Protein Test strip Ql (U)Ord ered By: Alma Rosa Pedroza on 06-11-2024 Protein Ql (U) 100 mg/dl High Negative [facility] Serum globulin measurementOr dered By: Alma Rosa Pedroza on 06-11-2024 Globulin (S) [Mass/Vol] 5.0 g/dL High 2.2-4.[address] [facility] Serum or plasma alanine hooper otransferase (ALT) measurementOrdered By: Alma Rosa Pedroza on 06-11-2024 ALT [Catalytic activity/Vol] 10 U/L Low 16-61 [facility] Serum or plasma albumin shantal urement (mass/volume)Ordered By: Alma Rosa Sheehanelizabeth on 06-11-2024 Albumin [Mass/Vol] 2.8 g/dL Low 3.2-5.0 [facility] Serum or plasma alkaline radha sphatase measurementOrdered By: Rem Ungelizabeth on 06-11-2024 ALP [Catalytic activity/Vol] 168 U/L High 45-117 [facility] Streptococcus pneumoniae ant igen assayOrdered By: Ronak Cui on 06-11-2024 Streptococcus pneumoniae Antigen (M [facility] Total proteinOrdered By: Marquita Pedroza on 06-11-2024 Protein [Mass/Vol] 7.8 g/dL 6.4-8.2 [facility] Troponin IOrdered By: Alma Rosa Sheehanelizabeth on 06-11-2024 Troponin I High Sensitivity 6 pg/mL 3.0-78.0 [facility] Comment on above: Please Note: New Tanya t Units and Gender Specific Reference Ranges. For more information see Policy Stat Procedure Dawson High Sensitivity Troponin (TNIH) and attachments. Urinalysis, Completeon 06-11 BACTERIA 4+ /hpf Normal None Seen [facility] Comment on above: Order Comment: 'TROP ' Serial specimen #1, #2 or #3: 1 Performed By: #### L 500.3400, L501.2450, L100.0100, L500.2500, L501.4020, L300.8000 #### [facility] [address] [place], [place], [address] CA OX CRYSTAL 1+ /hpf Normal [facility] Comment on above: Order Comment: 'TROP ' Serial specimen #1, #2 or #3: 1 Performed By: #### L 500.3400, L501.2450, L100.0100, L500.2500, L501.4020, L300.8000 #### [facility] [address] [place], [address] EPI,SQUAMOUS 0-5 SEEN Normal 0-5 [facility] Comment on above: Order Comment: 'TROP ' Serial specimen #1, #2 or #3: 1 Performed By: #### L 500.3400, L501.2450, L100.0100, L500.2500, L501.4020, L300.8000 #### [facility] [address] [place], [address] Mucus Ql (Urine sed) 2+ /hpf Normal [facility] Comment on above: Order Comment: 'TROP ' Serial specimen #1, #2 or #3: 1 Performed By: #### L 500.3400, L501.2450, L100.0100, L500.2500, L501.4020, L300.8000 #### [facility] [address] [place], [address] RBC 25-50 SEEN Normal 0-5 [facility] Comment on above: Order Comment: 'TROP ' Serial specimen #1, #2 or #3: 1 Performed By: #### L 500.3400, L501.2450, L100.0100, L500.2500, L501.4020, L300.8000 #### [facility] [address] [place], [address] WBC >100 SEEN Normal 0-5 [facility] Comment on above: Order Comment: 'TROP ' Serial specimen #1, #2 or #3: 1 Performed By: #### L 500.3400, L501.2450, L100.0100, L500.2500, L501.4020, L300.8000 #### [facility] [address] [place], [address] Urine blood detectionOrdered By: Remus Ungur on 06-11-2024 Urine Occult Blood 250 /ul High Negative [facility] Urine clarityOrdered By: Rem us Ungur on 06-11-2024 Clarity (U) Cloudy Clear [facility] Urine color determinationOrd ered By: Remus Ungur on 06-11-2024 Color (U) Yellow Yellow [facility] Urine cultureOrdered By: Rem us Ungur on 06-11-2024 Bacteria identified Cx Nom (U) Pseudomonas aeruginosa Abnormal [facility] Urine leukocyte esterase det ection by dipstickOrdered By: Alma Rosa Pedroza on 06-11-2024 Leukocyte esterase Test strip Ql (U) 500 /ul High Negative [facility] Urine pHOrdered By: Alma Rosa Un gur on 06-11-2024 pH (U) 6.0 [pH] 5.0 - 8.0 [facility] Urine sediment bacteria coun t by microscopy (number/high power field)Ordered By: Alma Rosa Pedroza on 06-11-2024 Bacteria LM.HPF (Urine sed) [#/Area] 4 /[HPF] None Seen [facility] Urine specific gravity measu rementOrdered By: Alma Rosa Pedroza on 06-11-2024 Specific gravity (U) [Rel density] 1.025 1.002-1.03 0 [facility] Urobilinogen Ql (U)Ordered B y: Alma Rosa Pedroza on 06-11-2024 Urine Urobilinogen Normal mg/dl Normal [facility] Venous Duplex Imag/Limited/U nion 06-11-2024 Venous Duplex Imag/Limited/Uni [facility] Imaging Services [address] [place], [place] [address] Venous Duplex Imag/Limited/Uni MR#: [id number] Acct: [id number] Name: BAUTISTA RUFFIN Rep #: [id number] : 1960 M 64 From: Garry Cobian DO PCP: [place] Hospital Status: REG ER Study: Venous Duplex Imag/Limited/Uni Date of Exam: 0 06/11/24 Exam# [id number] Ordering Dr: Alma Rosa Pedroza [place] [id number] INDICATION: RT LEG PAIN EXAMINATION: Ultrasound US [...] 20:09 EST Reading Location ID and State: [facility] / [place] Tel [phone], Service support , CC: Dr. Alma Rosa Pedroza DO; [facility] Straight Line Edger: Signed Normal [facility] White blood cell countOrdere d By: Alma Rosa Pedroza on 06-11-2024 Urine WBC >100 SEEN /hpf 0-5 [facility] CNPNon 05-06-2024 CNPN Telephone (AGPOB1) BAUTISTA RUFFIN ([id number]) 1960 M Date Time Provider Department 05/06/24 [...] Status:Closed by STACY GONGORA on 05/10/24 Normal [facility] Basic Metabolic Profile (BMP )on 05-03-2024 BUN/CRE 15.2 RATIO Normal 10-20 [facility] Comment on above: Performed By: #### L 500.3400, L501.2450, L100.0100, L500.2500, L501.4020, L300.8000 #### [facility] [address] [place], [address] CA,Total 9.4 mg/dL Normal 8.5-10.1 [facility] Comment on above: Performed By: #### L 500.3400, L501.2450, L100.0100, L500.2500, L501.4020, L300.8000 #### [facility] [address] [place], [address] Chloride [Moles/Vol] 106 mmol/L Normal 98-107 [facility] Comment on above: Performed By: #### L 500.3400, L501.2450, L100.0100, L500.2500, L501.4020, L300.8000 #### [facility] [address] [place], [address] CO2 [Moles/Vol] 33.0 mmol/L High 21.0-32.0 [facility] Comment on above: Performed By: #### L 500.3400, L501.2450, L100.0100, L500.2500, L501.4020, L300.8000 #### [facility] [address] [place], [address] Creatinine [Mass/Vol] 0.92 mg/dL Normal 0.70-1.30 [facility] Comment on above: Result Comment: The validity of the calculated GFR GFRAA in patients over 70 years has not been determined. Clinical correlation is essential. Performed By: #### L 500.3400, L501.2450, L100.0100, L500.2500, L501.4020, L300.8000 #### [facility] [address] [place], [address] ECRCL 82.18 ml/min Normal [facility] Comment on above: Performed By: #### L 500.3400, L501.2450, L100.0100, L500.2500, L501.4020, L300.8000 #### [facility] [address] [place], [address] EST GFR - AA 106 mL/min Normal >60 [facility] Comment on above: Result Comment: Afri can Ivorian GFR Calc Performed By: #### L 500.3400, L501.2450, L100.0100, L500.2500, L501.4020, L300.8000 #### [facility] [address] [place], [address] GAP 2 Low 5-15 [facility] Comment on above: Performed By: #### L 500.3400, L501.2450, L100.0100, L500.2500, L501.4020, L300.8000 #### [facility] [address] [place], [address] GFR/1.73 sq M.predicted among non-blacks MDRD (S/P/Bld) [Vol rate/Area] 88 mL/min/{1.73_m2} Normal >60 [facility] Comment on above: Result Comment: Non- GFR Calc Performed By: #### L 500.3400, L501.2450, L100.0100, L500.2500, L501.4020, L300.8000 #### [facility] [address] [place], [address] Glucose [Mass/Vol] 97 mg/dL Normal 74-106 [facility] Comment on above: Performed By: #### L 500.3400, L501.2450, L100.0100, L500.2500, L501.4020, L300.8000 #### [facility] [address] [place], [address] Potassium [Moles/Vol] 4.1 mmol/L Normal 3.5-5.1 [facility] Comment on above: Performed By: #### L 500.3400, L501.2450, L100.0100, L500.2500, L501.4020, L300.8000 #### [facility] [address] [place], [address] Sodium [Moles/Vol] 140 mmol/L Normal 136-145 [facility] Comment on above: Performed By: #### L 500.3400, L501.2450, L100.0100, L500.2500, L501.4020, L300.8000 #### [facility] [address] [place], [address] Urea nitrogen [Mass/Vol] 14 mg/dL Normal 7-18 [facility] Comment on above: Performed By: #### L 500.3400, L501.2450, L100.0100, L500.2500, L501.4020, L300.8000 #### [facility] [address] [place], [address] Basic metabolic 2000 panelon 05-03-2024 Anion gap [Moles/Vol] 10 mmol/L Normal 8-15 [facility] Comment on above: Order Comment: Speci men Type: BLOOD SPECIMEN Ordering Facility: [facility] Address: [facility] [place] [address] Performed By: #### 2 4321-2 #### [facility] CLIA [id number] [address] [place] [address] [place] Calcium [Mass/Vol] 9.1 mg/dL Normal 8.5-10.2 [facility] Comment on above: Order Comment: Speci men Type: BLOOD SPECIMEN Ordering Facility: [facility] Address: [address] [place] [address] Performed By: #### 2 4321-2 #### [facility] CLIA [id number] [address] [place] Chloride [Moles/Vol] 106 mmol/L Normal 98-107 [facility] Comment on above: Order Comment: Speci men Type: BLOOD SPECIMEN Ordering Facility: [facility] Address: [address] [place] [address] Performed By: #### 2 4321-2 #### [facility] CLIA [id number] [address] [place] [address] [place] CO2 [Moles/Vol] 26 mmol/L Normal 22-30 [facility] Comment on above: Order Comment: Speci men Type: BLOOD SPECIMEN Ordering Facility: [facility] Address: [address] [place] [address] Performed By: #### 2 4321-2 #### [facility] CLIA [id number] [address] [place] [address] [place] Creatinine [Mass/Vol] 0.79 mg/dL Normal 0.73-1.22 [facility] Comment on above: Order Comment: Speci men Type: BLOOD SPECIMEN Ordering Facility: [facility] Address: [address] [place] [address] Performed By: #### 2 4321-2 #### [facility] CLIA [id number] [address] [place] [address] [place] Creatinine and Glomerular filtration rate.predicted panel (S/P/Bld) 100 mL/min/1.73m??? Normal >=60 [facility] Comment on above: Order Comment: Soha bray Type: BLOOD SPECIMEN Ordering Facility: [facility] Address: [address] [place] [address] Result Comment: Carey mated Glomerular Filtration Rate [...] GFR. Performed By: #### 2 4321-2 #### [facility] CLIA [id number] [address] [place] [address] [place] Glucose [Mass/Vol] 92 mg/dL Normal 74-99 [facility] Comment on above: Order Comment: Soha bray Type: BLOOD SPECIMEN Ordering Facility: [facility] Address: [address] [place] [address] Result Comment: The [place] Diabetes Association (ADA) provides guidance for cutoff [...] Standards of Medical Care in Diabetes 2016, [place] Diabetes Association. Diabetes Care. 2016.39(Suppl 1). Performed By: #### 2 4321-2 #### [facility] CLIA [id number] [address] [place] [address] [place] Potassium [Moles/Vol] 4.3 mmol/L Normal 3.7-5.1 [facility] Comment on above: Order Comment: Soha bray Type: BLOOD SPECIMEN Ordering Facility: [facility] Address: [address] [place] [address] Performed By: #### 2 4321-2 #### [facility] CLIA [id number] [address] STATES [facility] Sodium [Moles/Vol] 142 mmol/L Normal 136-144 [facility] Comment on above: Order Comment: Speci men Type: BLOOD SPECIMEN Ordering Facility: [facility] Address: [address] [place] [address] Performed By: #### 2 4321-2 #### [facility] CLIA [id number] [address] [place] Urea nitrogen [Mass/Vol] 13 mg/dL Normal 9-24 [facility] Comment on above: Order Comment: Speci men Type: BLOOD SPECIMEN Ordering Facility: [facility] Address: [address] [place] [address] Performed By: #### 2 4321-2 #### [facility] CLIA [id number] [address] [place] [facility] CBC W Auto Differential pane l (Bld)on 05-03-2024 Basophils (Bld) [#/Vol] 0.07 10*3/uL Normal <0.11 [facility] Comment on above: Order Comment: Speci men Type: BLOOD SPECIMEN Ordering Facility: [facility] Address: [address] [place] [address] Performed By: #### 5 7021-8 #### [facility] CLIA [id number] [address] Basophils/100 WBC (Bld) 0.5 % Normal [facility] Comment on above: Order Comment: Speci men Type: BLOOD SPECIMEN Ordering Facility: [facility] Address: [address] [place] [address] Performed By: #### 5 7021-8 #### [facility] CLIA [id number] [address] Differential cell count method Nom (Bld) Auto Normal [facility] Comment on above: Order Comment: Speci men Type: BLOOD SPECIMEN Ordering Facility: [facility] Address: [address] [place] [address] Performed By: #### 5 7021-8 #### [facility] CLIA [id number] [address] [place] Eosinophils (Bld) [#/Vol] 0.47 10*3/uL High <0.46 [facility] Comment on above: Order Comment: Speci men Type: BLOOD SPECIMEN Ordering Facility: [facility] Address: [address] [place] [address] Performed By: #### 5 7021-8 #### [facility] CLIA [id number] [address] Eosinophils/100 WBC (Bld) 3.2 % Normal [facility] Comment on above: Order Comment: Speci men Type: BLOOD SPECIMEN Ordering Facility: [facility] Address: [address] [place] [address] Performed By: #### 5 7021-8 #### [facility] CLIA [id number] [address] [place] Erythrocyte distribution width (RBC) [Ratio] 18.1 % High 11.5-15.0 [facility] Comment on above: Order Comment: Speci men Type: BLOOD SPECIMEN Ordering Facility: [facility] Address: [address] [place] [address] Performed By: #### 5 7021-8 #### [facility] CLIA [id number] [address] Hematocrit (Bld) [Volume fraction] 49.5 % Normal 39.0-51.0 [facility] Comment on above: Order Comment: Speci men Type: BLOOD SPECIMEN Ordering Facility: [facility] Address: [address] [place] [address] Performed By: #### 5 7021-8 #### [facility] CLIA [id number] [address] [place] Hemoglobin (Bld) [Mass/Vol] 16.3 g/dL Normal 13.0-17. 0 [facility] Comment on above: Order Comment: Speci men Type: BLOOD SPECIMEN Ordering Facility: [facility] Address: [address] [place] [address] Performed By: #### 5 7021-8 #### [facility] CLIA [id number] [address] [place] Immature granulocytes (Bld) [#/Vol] 0.08 10*3/uL Normal <0.10 [facility] Comment on above: Order Comment: Speci men Type: BLOOD SPECIMEN Ordering Facility: [facility] Address: [address] [place] [address] Performed By: #### 5 7021-8 #### [facility] CLIA [id number] [address] [place] Immature granulocytes/100 WBC (Bld) 0.5 % Normal [facility] Comment on above: Order Comment: Speci men Type: BLOOD SPECIMEN Ordering Facility: [facility] Address: [address] [place] [address] Performed By: #### 5 7021-8 #### [facility] CLIA [id number] [address] [place] Lymphocytes (Bld) [#/Vol] 3.35 10*3/uL Normal 1.00-4.0 0 [facility] Comment on above: Order Comment: Speci men Type: BLOOD SPECIMEN Ordering Facility: [facility] Address: [address] [place] [address] Performed By: #### 5 7021-8 #### [facility] CLIA [id number] [address] [place] Lymphocytes/100 WBC (Bld) 22.8 % Normal [facility] Comment on above: Order Comment: Speci men Type: BLOOD SPECIMEN Ordering Facility: [facility] Address: [address] [place] [address] Performed By: #### 5 7021-8 #### [facility] CLIA [id number] [address] MCH (RBC) [Entitic mass] 28.6 pg Normal 26.0-34.0 [facility] Comment on above: Order Comment: Speci men Type: BLOOD SPECIMEN Ordering Facility: [facility] Address: [address] [place] [address] Performed By: #### 5 7021-8 #### [facility] CLIA [id number] [address] OF [facility] MCHC (RBC) [Mass/Vol] 32.9 g/dL Normal 30.5-36.0 [facility] Comment on above: Order Comment: Speci men Type: BLOOD SPECIMEN Ordering Facility: [facility] Address: [address] [place] [address] Performed By: #### 5 7021-8 #### [facility] CLIA [id number] [address] MCV (RBC) [Entitic vol] 86.8 fL Normal 80.0-100.0 [facility] Comment on above: Order Comment: Speci men Type: BLOOD SPECIMEN Ordering Facility: [facility] Address: [address] [place] [address] Performed By: #### 5 7021-8 #### [facility] CLIA [id number] [address] Monocytes (Bld) [#/Vol] 1.45 10*3/uL High <0.87 [facility] Comment on above: Order Comment: Speci men Type: BLOOD SPECIMEN Ordering Facility: [facility] Address: [address] [place] [address] Performed By: #### 5 7021-8 #### [facility] CLIA [id number] [address] Monocytes/100 WBC (Bld) 9.9 % Normal [facility] Comment on above: Order Comment: Speci men Type: BLOOD SPECIMEN Ordering Facility: [facility] Address: [address] [place] [address] Performed By: #### 5 7021-8 #### [facility] CLIA [id number] [address] [place] Neutrophils (Bld) [#/Vol] 9.29 10*3/uL High 1.45-7.5 0 [facility] Comment on above: Order Comment: Speci men Type: BLOOD SPECIMEN Ordering Facility: [facility] Address: [address] [place] [address] Performed By: #### 5 7021-8 #### [facility] CLIA [id number] [address] [place] Neutrophils/100 WBC (Bld) 63.1 % Normal [facility] Comment on above: Order Comment: Speci men Type: BLOOD SPECIMEN Ordering Facility: [facility] Address: [address] [place] [address] Performed By: #### 5 7021-8 #### [facility] CLIA [id number] [address] [place] Nucleated RBC (Bld) [#/Vol] 10*3/uL Normal <0.01 [facility] Comment on above: Order Comment: Speci men Type: BLOOD SPECIMEN Ordering Facility: [facility] Address: [address] [place] [address] Performed By: #### 5 7021-8 #### [facility] CLIA [id number] [address] Nucleated RBC/100 WBC (Bld) [Ratio] 0.0 /100 WBC Normal [facility] Comment on above: Order Comment: Speci men Type: BLOOD SPECIMEN Ordering Facility: [facility] Address: [address] [place] [address] Performed By: #### 5 7021-8 #### [facility] CLIA [id number] [address] Platelet mean volume (Bld) [Entitic vol] 9.5 fL Normal 9.0-12.7 [facility] Comment on above: Order Comment: Speci men Type: BLOOD SPECIMEN Ordering Facility: [facility] Address: [address] [id number] Performed By: #### 5 7021-8 #### [facility] CLIA [id number] [address] OF [facility] Platelets (Bld) [#/Vol] 268 10*3/uL Normal 150-400 [facility] Comment on above: Order Comment: Speci men Type: BLOOD SPECIMEN Ordering Facility: [facility] Address: [address] [place] [address] Performed By: #### 5 7021-8 #### [facility] CLIA [id number] [address] OF [facility] RBC (Bld) [#/Vol] 5.70 10*6/uL Normal 4.20-6.00 [facility] Comment on above: Order Comment: Speci men Type: BLOOD SPECIMEN Ordering Facility: [facility] Address: [address] [place] [address] Performed By: #### 5 7021-8 #### [facility] CLIA [id number] [address] [place] WBC (Bld) [#/Vol] 14.71 10*3/uL High 3.70-11.00 [facility] Comment on above: Order Comment: Speci men Type: BLOOD SPECIMEN Ordering Facility: [facility] Address: [address] [place] [address] Performed By: #### 5 7021-8 #### [facility] CLIA [id number] [address] [place] CBC W/Diff, Automatedon 12-0 6-4 Absolute Lymph 3.24 X10 3/uL Normal 0.83-4.51 [facility] Comment on above: Performed By: #### L 500.3400, L501.2450, L100.0100, L500.2500, L501.4020, L300.8000 #### [facility] [address] [place], [address] Absolute Neut 7.8 X10 3/uL High 2.0-7.7 [facility] Comment on above: Performed By: #### L 500.3400, L501.2450, L100.0100, L500.2500, L501.4020, L300.8000 #### [facility] [address] [place], [address] Basophils/100 WBC (Bld) 0.5 % Normal 0-[address] [facility] Comment on above: Performed By: #### L 500.3400, L501.2450, L100.0100, L500.2500, L501.4020, L300.8000 #### [facility] [address] [place], [address] Eosinophils/100 WBC (Bld) 3.5 % Normal 0-5 [facility] Comment on above: Performed By: #### L 500.3400, L501.2450, L100.0100, L500.2500, L501.4020, L300.8000 #### [facility] [address] [place], [address] Erythrocyte distribution width (RBC) [Ratio] 18.0 % High 11.6-14.6 [facility] Comment on above: Performed By: #### L 500.3400, L501.2450, L100.0100, L500.2500, L501.4020, L300.8000 #### [facility] [address] [place], [address] Hematocrit (Bld) [Volume fraction] 53.3 % Normal 40-54 [facility] Comment on above: Performed By: #### L 500.3400, L501.2450, L100.0100, L500.2500, L501.4020, L300.8000 #### [facility] [address] [place], [address] Hemoglobin (Bld) [Mass/Vol] 17.0 g/dL High 13.0-16. 5 [facility] Comment on above: Performed By: #### L 500.3400, L501.2450, L100.0100, L500.2500, L501.4020, L300.8000 #### [facility] [address] [place], [address] IG% 0.400 Normal 0.0-0.9 [facility] Comment on above: Result Comment: IG% - Immature Granulocytes (promyelocytes, myelocytes and metamyelocytes) > 1% indicates that a LEFT SHIFT is Present. Performed By: #### L 500.3400, L501.2450, L100.0100, L500.2500, L501.4020, L300.8000 #### [facility] [address] [place], [address] Lymphocytes/100 WBC (Bld) 25.4 % Normal 19-41 [facility] Comment on above: Performed By: #### L 500.3400, L501.2450, L100.0100, L500.2500, L501.4020, L300.8000 #### [facility] [address] [place], [address] MCH (RBC) [Entitic mass] 27.6 pg Normal 27.0-32.0 [facility] Comment on above: Performed By: #### L 500.3400, L501.2450, L100.0100, L500.2500, L501.4020, L300.8000 #### [facility] [address] [place], [address] MCHC (RBC) [Mass/Vol] 31.9 g/dL Low 32-36 [facility] Comment on above: Performed By: #### L 500.3400, L501.2450, L100.0100, L500.2500, L501.4020, L300.8000 #### [facility] [address] [place], [address] MCV (RBC) [Entitic vol] 86.4 fL Normal 80-[address] [facility] Comment on above: Performed By: #### L 500.3400, L501.2450, L100.0100, L500.2500, L501.4020, L300.8000 #### [facility] [address] [place], [address] Monocytes/100 WBC (Bld) 8.8 % Normal 0-[address] [facility] Comment on above: Performed By: #### L 500.3400, L501.2450, L100.0100, L500.2500, L501.4020, L300.8000 #### [facility] [address] [place], [address] Neutrophils/100 WBC (Bld) 61.4 % Normal 47-70 [facility] Comment on above: Performed By: #### L 500.3400, L501.2450, L100.0100, L500.2500, L501.4020, L300.8000 #### [facility] [address] [place], [address] Nucleated RBC (Bld) [#/Vol] 0 10*3/uL Normal 0-5 [facility] Comment on above: Performed By: #### L 500.3400, L501.2450, L100.0100, L500.2500, L501.4020, L300.8000 #### [facility] [address] [place], [address] Platelet mean volume (Bld) [Entitic vol] 9.6 fL Normal 6.2-12.0 [facility] Comment on above: Performed By: #### L 500.3400, L501.2450, L100.0100, L500.2500, L501.4020, L300.8000 #### [facility] [address] [place], [address] Platelets (Bld) [#/Vol] 299 10*3/uL Normal 150-450 [facility] Comment on above: Performed By: #### L 500.3400, L501.2450, L100.0100, L500.2500, L501.4020, L300.8000 #### [facility] [address] [place], [address] RBC (Bld) [#/Vol] 6.17 10*6/uL Normal 4.6-6.2 [facility] Comment on above: Performed By: #### L 500.3400, L501.2450, L100.0100, L500.2500, L501.4020, L300.8000 #### [facility] [address] [place], [address] RDW SD 53.9 fl High 35.1-43.9 [facility] Comment on above: Performed By: #### L 500.3400, L501.2450, L100.0100, L500.2500, L501.4020, L300.8000 #### [facility] [address] [place], [address] WBC (Bld) [#/Vol] 12.8 10*3/uL High 4.4-11.0 [facility] Comment on above: Performed By: #### L 500.3400, L501.2450, L100.0100, L500.2500, L501.4020, L300.8000 #### [facility] [address] [place], [address] CONSULTon 05-03-2024 CONSULT HNO ID: [id number] Author: HETAL GALLEGOS MD Service: Orthopaedic Surgery [...] ThighPain HPI:64 year old male presented to [facility] ED on 05/03/2024 for evaluation of right thigh pain. The patient is paraplegic at baseline and is bed bound. He states he has some minimal sensation in the lower extremities. His home health care social worker was moving his leg for range of [...] Carrion MD Orthopaedic Surgery 05/03/2024 10:08 PM [facility] ED NOTEon 05-03-2024 ED NOTE HNO ID: [id number] Author: BILLY COOLEY RN Service: ? Author Type: Registered Nurse Type: ED Notes Filed: 05/03/2024 22:46 Note Text: PT out of town collection clerk light, asking for sth for pain. Dr. Grissom notified. [facility] ED NOTE HNO ID: [id number] Author: WAYNE LAMBERT Medic Service: ? 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 Patient has right hip fracture. Occurred during PT/OT while moving leg. Patient is paraplegic. Received 50mcg of fentanyl before arrival. Patient presents as a transfer from [place] for right hip fracture. Patient has past [...] the right hip and was taken to [facility] for evaluation where he was found to have a nondisplaced subtrochanteric right femur fracture. He was transferred to [facility] for Ortho consult. PAST MEDICAL HISTORY Diagnosis [...] however he (more content not included)... Normal [facility] Emergency Department Summary on 05-03-2024 Emergency Department Summary [facility] Medical Records Department [address] [place] [address] Emergency Department Summary 05/03/24 MR#: [id number] Acct: [id number] Name: BAUTISTA RUFFIN Rep #: [id number] : 1960 64 From: Jaclyn HOLCOMB PCP: [facility] Status:DEP ER Location: ED HPI History of Present Illness Chief Complaint: Lower Extremity Injury Narrative Narrative: 64-year-old male is paraplegic and states his aide was doing range of motion exercises of his legs when there was an audible pop of his right hip and he is concerned it could be out of place. No history of prior hip surgery. He is bedbound. 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 Normal [facility] HIP, UNI W/ Pelvis 2-3 Views on 05-03-2024 HIP, UNI W/ Pelvis 2-3 Views [facility] Services [address] [place], [place] [address] HIP, UNI W/ Pelvis 2-3 Views MR#: [id number] Acct: [id number] Name: BAUTISTA RUFFIN Rep #: [id number] : 1960 M 64 From: Abdoul esteves MD PCP: [facility] Status: REG ER Study: HIP, UNI W/ Pelvis 2-3 Views Date of Exam: 11/19 Exam# [id number] Ordering Dr: Jaclyn Méndez [id number] STUDY: X-RAY - PELVIS AND RIGHT HIP [...] at 12:34 EST , CC: AICHA Correa; [facility] Straight Line Edger: Signed Normal [facility] XR FEMUR 2V AP/LAT RTon -0 XR [...] KNEE may be obtained, as clinically warranted. Straight Line Edger: MILAGROS Transcribe Date/Time: May 03 2024 8:06P Dictated by : ERNESTO CORRALES MD This examination was interpreted and the report reviewed and electronically signed by: ERNESTO CORRALES MD on May 03 2024 8:11PM EST [id number] Normal [facility] XR HIP 3V PELV+ AP/LAT RTon 05-03-2024 [...] KNEE may be obtained, as clinically warranted. Straight Line Edger: MILAGROS Transcribe Date/Time: May 03 2024 8:06P Dictated by : ERNESTO CORRALES MD This examination was interpreted and the report reviewed and electronically signed by: ERNESTO CORRALES MD on May 03 2024 8:11PM EST [id number] Normal [facility] Absolute lymphocyte countOrd ered By: Adan Bell on 10-09-2023 Lymphocytes Auto (Unsp spec) [#/Vol] 3.10 10*3/uL 0.83-4.51 [facility] Automated lymphocyte count a s percentage of total leukocytesOrdered By: Adan Bell on 10-09-2023 Lymphocytes/100 WBC Auto (Unsp spec) 16.3 % 19-41 [facility] Basophil percentageOrdered B y: Adan Bell on 10-09-2023 Basophils/100 WBC (Bld) 0.6 % 0-[address] [facility] Chloride [Moles/Vol] 100 mmol/L 98-107 [facility] Eosinophils/100 WBC (Bld) 0.8 % 0-5 [facility] Glucose [Mass/Vol] 124 mg/dL 74-106 [facility] Comment on above: Fasting Glucose resu lt from 100 to 125 mg/dL suggests IMPAIRED HOMEOSTASIS per A.D.A. criteria. Hemoglobin (Bld) [Mass/Vol] 16.5 g/dL 13.0-16. 5 [facility] Monocytes/100 WBC (Bld) 15.1 % 0-[address] [facility] Neutrophils (Bld) [#/Vol] 12.6 10*3/uL 2.0-7.7 [facility] Neutrophils/100 WBC (Bld) 66.7 % 47-70 [facility] Potassium [Moles/Vol] 3.6 mmol/L 3.5-5.1 [facility] Sodium [Moles/Vol] 136 mmol/L 136-145 [facility] WBC (Bld) [#/Vol] 19.0 10*3/uL 4.4-11.0 [facility] Blood manual differential co mment interpretation (narrative result)Ordered By: Adan Bell on 10-09-2023 Manual differential comment Isrrael (Bld) [Interp] SCANNED [facility] Comment on above: MONOCYTOSIS PRESENT Determination of erythrocyte mean corpuscular volume (MCV)Ordered By: Adan Bell on 10-09-2023 MCV (RBC) [Entitic vol] 84.3 fL 80-[address] [facility] Erythrocyte distribution wid th ratioOrdered By: Adan Bell on 10-09-2023 Erythrocyte distribution width (RBC) [Ratio] 14.9 % 11.6-14.6 [facility] Erythrocyte distribution wid th standard deviationOrdered By: Adan Bell on 10-09-2023 Erythrocyte distribution width (RBC) [Entitic vol] 45.5 fL 35.1-43.9 [facility] Hematocrit Auto (Bld) [Volum e fraction]Ordered By: Adan Bell on 10-09-2023 Hematocrit (Bld) [Volume fraction] 50.0 % 40-54 [facility] Immature granulocytes/100 WB C Auto (Bld)Ordered By: Adan Bell on 10-09-2023 Immature granulocytes/100 WBC (Bld) 0.500 % 0.0-0.9 [facility] Comment on above: IG% - Immature Granu locytes (promyelocytes, myelocytes and metamyelocytes) > 1% indicates that a LEFT SHIFT is Present. Laboratory - Chemistry and C hemistry - challengeOrdered By: Adan Bell on 10-09-2023 CO2 [Moles/Vol] 26.0 mmol/L 21.0-32.0 [facility] Urea nitrogen/Creatinine [Mass ratio] 17.3 mg/mg 10-20 [facility] Laboratory - Hematology and Cell countsOrdered By: Adan Bell on 10-09-2023 MCH (RBC) [Entitic mass] 27.8 pg 27.0-32.0 [facility] MCHC (RBC) [Mass/Vol] 33.0 g/dL 32-36 [facility] Nucleated RBC/100 WBC (Bld) [Ratio] 0 % 0-5 [facility] Platelet mean volume (Bld) [Entitic vol] 9.5 fL 6.2-12.0 [facility] Platelets (Bld) [#/Vol] 531 10*3/uL 150-450 [facility] No Panel InformationOrdered By: Adan Bell on 10-09-2023 Troponin I High Sensitivity 7 pg/mL 3.0-78.0 [facility] Comment on above: Please Note: New Tanya t Units and Gender Specific Reference Ranges. For more information see Policy Stat Procedure Dawson High Sensitivity Troponin (TNIH) and attachments. Estimated GFR (MDRD) Amer 135 mL/min >60 [facility] Comment on above: GFR Calc Estimated GFR (MDRD) Non-Af Amer 112 mL/min >60 [facility] Comment on above: Non- GFR Calc RBC Auto (Bld) [#/Vol]Ordere d By: Adan Bell on 10-09-2023 RBC (Bld) [#/Vol] 5.93 10*6/uL 4.6-6.2 [facility] Review by pathologistOrdered By: Adan Bell on 10-09-2023 Pathologist review Isrrael (Unsp spec) [Interp] September [facility] Serum or plasma calcium shantal urement (mass/volume)Ordered By: Adan Bell on 10-09-2023 Calcium [Mass/Vol] 9.7 mg/dL 8.5-10.1 [facility] Serum or plasma creatinine m easurement (mass/volume)Ordered By: Adan Bell on 10-09-2023 Creatinine [Mass/Vol] 0.75 mg/dL 0.70-1.30 [facility] Comment on above: The validity of the calculated GFR & GFRAA in patients over 70 years has not been determined. Clinical correlation is essential. Serum or plasma urea nitroge n measurement (mass/volume)Ordered By: Adan Bell on 10-09-2023 Urea nitrogen [Mass/Vol] 13 mg/dL 7-18 [facility] Thin prep Papanicolaou smear with manual screeningOrdered By: Adan Bell on 10-09-2023 Thin prep Papanicolaou smear with manual screening 10 5-15 [facility] Absolute lymphocyte counton 06-06-2022 Lymphocytes Auto (Unsp spec) [#/Vol] 3.07 10*3/uL 0.83-4.51 [facility] Work Phone: Basophil percentageon 2022 Basophil percentage 10-25 SEEN /hpf 0-5 [facility] Work Phone: Basophils/100 WBC (Bld) 0.3 % 0-[address] [facility] Work Phone: Chloride [Moles/Vol] 109 mmol/L 98-107 [facility] Work Phone: Eosinophils/100 WBC (Bld) 1.4 % 0-5 [facility] Work Phone: Glucose [Mass/Vol] 93 mg/dL 74-106 [facility] Work Phone: Neutrophils (Bld) [#/Vol] 10.5 10*3/uL 2.0-7.7 [facility] Work Phone: Neutrophils/100 WBC (Bld) 67.2 % 47-70 [facility] Work Phone: Potassium [Moles/Vol] 3.8 mmol/L 3.5-5.1 [facility] Work Phone: Sodium [Moles/Vol] 143 mmol/L 136-145 [facility] Work Phone: WBC (Bld) [#/Vol] 15.7 10*3/uL 4.4-11.0 [facility] Work Phone: [phone] Bilirubin Test strip Ql (U)o n 06-06-2022 Bilirubin Ql (U) Negative Negative [facility] Work Phone: Blood erythrocytes count (nu mber/volume)on 06-06-2022 RBC (Bld) [#/Vol] 5.18 10*6/uL 4.6-6.2 [facility] Work Phone: Blood hemoglobin measurement (mass/volume)on 06-06-2022 Hemoglobin (Bld) [Mass/Vol] 14.2 g/dL 13.0-16. 5 [facility] Work Phone: Blood lymphocytes/100 leukoc yteson 06-06-2022 Lymphocytes/100 WBC (Bld) 19.6 % 19-41 [facility] Work Phone: Blood manual differential co mment interpretation (narrative result)on 06-06-2022 Manual differential comment Isrrael (Bld) [Interp] SCANNED [facility] Work Phone: [phone] Blood monocytes/100 leukocyt eson 06-06-2022 Monocytes/100 WBC (Bld) 10.9 % 0-[address] [facility] Work Phone: [phone] Blood platelet mean volumeon 06-06-2022 Platelet mean volume (Bld) [Entitic vol] 9.5 fL 6.2-12.0 [facility] Work Phone: Determination of erythrocyte mean corpuscular volume (MCV)on 06-06-2022 MCV (RBC) [Entitic vol] 87.1 fL 80-[address] [facility] Work Phone: [phone] Hematocrit Auto (Bld) [Volum e fraction]on 06-06-2022 Hematocrit (Bld) [Volume fraction] 45.1 % 40-54 [facility] Work Phone: Ketones Test strip Ql (U)on 06-06-2022 Ketones Ql (U) 5 mg/dl Negative [facility] Work Phone: Laboratory - Chemistry and C hemistry - challengeon 06-06-2022 CO2 [Moles/Vol] 29.0 mmol/L 21.0-32.0 [facility] Work Phone: Urea nitrogen/Creatinine [Mass ratio] 21.8 mg/mg 10-20 [facility] Work Phone: Laboratory - Hematology and Cell countson 06-06-2022 Erythrocyte distribution width (RBC) [Entitic vol] 49.6 fL 35.1-43.9 [facility] Work Phone: Erythrocyte distribution width (RBC) [Ratio] 15.7 % 11.6-14.6 [facility] Work Phone: [phone] Immature granulocytes/100 WBC (Bld) 0.600 % 0.0-0.9 [facility] Work Phone: Comment on above: IG% - Immature Granu locytes (promyelocytes, myelocytes and metamyelocytes) > 1% indicates that a LEFT SHIFT is Present. MCH (RBC) [Entitic mass] 27.4 pg 27.0-32.0 [facility] Work Phone: Nucleated RBC/100 WBC (Bld) [Ratio] 0 % 0-5 [facility] Work Phone: MCHC Auto (RBC) [Mass/Vol]on 06-06-2022 MCHC (RBC) [Mass/Vol] 31.5 g/dL 32-36 [facility] Work Phone: Mucus LM Ql (Urine sed)on Mucus Ql (Urine sed) 0 SEEN /hpf [facility] Work Phone: Nitrite Test strip Ql (U)on 06-06-2022 Nitrite Ql (U) Positive Negative [facility] Work Phone: No Panel Informationon 06-06 Estimated Creatinine Clearance Calc 88.45 ml/min [facility] Work Phone: Estimated GFR (MDRD) Amer 122 mL/min >60 [facility] Work Phone: Comment on above: GFR Calc Estimated GFR (MDRD) Non-Af Amer 101 mL/min >60 [facility] Work Phone: Comment on above: Non- GFR Calc Platelets bldon 06-06-2022 Platelets (Bld) [#/Vol] 433 10*3/uL 150-450 [facility] Work Phone: Protein Test strip Ql (U)on 06-06-2022 Protein Ql (U) 15 mg/dl Negative [facility] Work Phone: Review by pathologiston Pathologist review Isrrael (Unsp spec) [Interp] May foll [facility] Work Phone: Serum or plasma calcium shantal urement (mass/volume)on 06-06-2022 Calcium [Mass/Vol] 9.1 mg/dL 8.5-10.1 [facility] Work Phone: Serum or plasma creatinine m easurement (mass/volume)on 06-06-2022 Creatinine [Mass/Vol] 0.82 mg/dL 0.70-1.30 [facility] Work Phone: Comment on above: The validity of the calculated GFR & GFRAA in patients over 70 years has not been determined. Clinical correlation is essential. Serum or plasma urea nitroge n measurement (mass/volume)on 06-06-2022 Urea nitrogen [Mass/Vol] 18 mg/dL 7-18 [facility] Work Phone: Squamous epithelial cells de tection in urine sediment by light microscopyon 06-06-2022 Epithelial cells.squamous LM Ql (Urine sed) 0 SEEN /hpf 0-5 [facility] Work Phone: Thin prep Papanicolaou smear with manual screeningon 06-06-2022 Thin prep Papanicolaou smear with manual screening 5 5-15 [facility] Work Phone: Urine blood detectionon RBC Ql (U) 25 /ul Negative [facility] Work Phone: RBC Ql (U) 0-5 SEEN /hpf 0-5 [facility] Work Phone: Urine clarityon 06-06-2022 Clarity (U) Clear Clear [facility] Work Phone: Urine color determinationon 06-06-2022 Color (U) Yellow Yellow [facility] Work Phone: Urine glucose detectionon Glucose Ql (U) Normal mg/dl Normal [facility] Work Phone: Urine leukocyte esterase det ection by dipstickon 06-06-2022 Leukocyte esterase Test strip Ql (U) 500 /ul Negative [facility] Work Phone: Urine pHon 06-06-2022 pH (U) 6.0 [pH] 5.0 - 8.0 [facility] Work Phone: Urine sediment bacteria coun t by microscopy (number/high power field)on 06-06-2022 Bacteria LM.HPF (Urine sed) [#/Area] 2 /[HPF] None Seen [facility] Work Phone: Urine specific gravity measu rementon 06-06-2022 Specific gravity (U) [Rel density] 1.020 1.002-1.03 0 [facility] Work Phone: Urobilinogen Auto test strip Ql (U)on 06-06-2022 Urobilinogen Ql (U) Normal mg/dl Normal [facility] Work Phone: [phone] Absolute lymphocyte counton 05-22-2022 Lymphocytes Auto (Unsp spec) [#/Vol] 0.67 10*3/uL 0.83-4.51 [facility] Work Phone: Basophil percentageon 2021 Basophils/100 WBC (Bld) 0.4 % 0-[address] [facility] Work Phone: Chloride [Moles/Vol] 105 mmol/L 98-107 [facility] Work Phone: Eosinophils/100 WBC (Bld) 0.1 % 0-5 [facility] Work Phone: Glucose [Mass/Vol] 102 mg/dL 74-106 [facility] Work Phone: [phone] Comment on above: Fasting Glucose resu lt from 100 to 125 mg/dL suggests IMPAIRED HOMEOSTASIS per A.D.A. criteria. Neutrophils (Bld) [#/Vol] 7.0 10*3/uL 2.0-7.7 [facility] Work Phone: Neutrophils/100 WBC (Bld) 77.2 % 47-70 [facility] Work Phone: [phone] Potassium [Moles/Vol] 4.2 mmol/L 3.5-5.1 [facility] Work Phone: [phone] Comment on above: Slight Hemolysis, Re sult may be falsely increased. Sodium [Moles/Vol] 135 mmol/L 136-145 [facility] Work Phone: WBC (Bld) [#/Vol] 9.1 10*3/uL 4.4-11.0 [facility] Work Phone: Blood erythrocytes count (nu mber/volume)on 05-22-2022 RBC (Bld) [#/Vol] 5.47 10*6/uL 4.6-6.2 [facility] Work Phone: Blood hemoglobin measurement (mass/volume)on 05-22-2022 Hemoglobin (Bld) [Mass/Vol] 15.6 g/dL 13.0-16. 5 [facility] Work Phone: Blood lymphocytes/100 leukoc yteson 05-22-2022 Lymphocytes/100 WBC (Bld) 7.3 % 19-41 [facility] Work Phone: Blood monocytes/100 leukocyt eson 05-22-2022 Monocytes/100 WBC (Bld) 14.7 % 0-[address] [facility] Work Phone: Blood platelet mean volumeon 05-22-2022 Platelet mean volume (Bld) [Entitic vol] 9.7 fL 6.2-12.0 [facility] Work Phone: [phone] Determination of erythrocyte mean corpuscular volume (MCV)on 05-22-2022 MCV (RBC) [Entitic vol] 84.5 fL 80-[address] [facility] Work Phone: Hematocrit Auto (Bld) [Volum e fraction]on 05-22-2022 Hematocrit (Bld) [Volume fraction] 46.2 % 40-54 [facility] Work Phone: [phone] Laboratory - Chemistry and C hemistry - challengeon 05-22-2022 CO2 [Moles/Vol] 22.0 mmol/L 21.0-32.0 [facility] Work Phone: [phone] Urea nitrogen/Creatinine [Mass ratio] 22.5 mg/mg 10-20 [facility] Work Phone: Laboratory - Hematology and Cell countson 05-22-2022 Erythrocyte distribution width (RBC) [Entitic vol] 49.6 fL 35.1-43.9 [facility] Work Phone: Erythrocyte distribution width (RBC) [Ratio] 16.1 % 11.6-14.6 [facility] Work Phone: Immature granulocytes/100 WBC (Bld) 0.300 % 0.0-0.9 [facility] Work Phone: Comment on above: IG% - Immature Granu locytes (promyelocytes, myelocytes and metamyelocytes) > 1% indicates that a LEFT SHIFT is Present. MCH (RBC) [Entitic mass] 28.5 pg 27.0-32.0 [facility] Work Phone: Nucleated RBC/100 WBC (Bld) [Ratio] 0 % 0-5 [facility] Work Phone: MCHC Auto (RBC) [Mass/Vol]on 05-22-2022 MCHC (RBC) [Mass/Vol] 33.8 g/dL 32-36 [facility] Work Phone: No Panel Informationon 05-22 Estimated Creatinine Clearance Calc 92.35 ml/min [facility] Work Phone: Estimated GFR (MDRD) Amer 119 mL/min >60 [facility] Work Phone: Comment on above: GFR Calc Estimated GFR (MDRD) Non-Af Amer 98 mL/min >60 [facility] Work Phone: Comment on above: Non- GFR Calc Platelets bldon 05-22-2022 Platelets (Bld) [#/Vol] 268 10*3/uL 150-450 [facility] Work Phone: Serum or plasma calcium shantal urement (mass/volume)on 05-22-2022 Calcium [Mass/Vol] 9.1 mg/dL 8.5-10.1 [facility] Work Phone: Serum or plasma creatinine m easurement (mass/volume)on 05-22-2022 Creatinine [Mass/Vol] 0.84 mg/dL 0.70-1.30 [facility] Work Phone: Comment on above: The validity of the calculated GFR & GFRAA in patients over 70 years has not been determined. Clinical correlation is essential. Serum or plasma urea nitroge n measurement (mass/volume)on 05-22-2022 Urea nitrogen [Mass/Vol] 19 mg/dL 7-18 [facility] Work Phone: [phone] Thin prep Papanicolaou smear with manual screeningon 05-22-2022 Thin prep Papanicolaou smear with manual screening 8 5-15 [facility] Work Phone: [phone] Absolute lymphocyte counton 09-09-2021 Lymphocytes Auto (Unsp spec) [#/Vol] 2.88 10*3/uL 0.83-4.51 [facility] Work Phone: [phone] Basophil percentageon 2021 Basophils/100 WBC (Bld) 0.5 % 0-[address] [facility] Work Phone: Chloride [Moles/Vol] 111 mmol/L 98-107 [facility] Work Phone: Eosinophils/100 WBC (Bld) 4.8 % 0-5 [facility] Work Phone: [phone] Glucose [Mass/Vol] 109 mg/dL 74-106 [facility] Work Phone: [phone] Comment on above: Fasting Glucose resu lt from 100 to 125 mg/dL suggests IMPAIRED HOMEOSTASIS per A.D.A. criteria. Neutrophils (Bld) [#/Vol] 6.3 10*3/uL 2.0-7.7 [facility] Work Phone: Neutrophils/100 WBC (Bld) 59.3 % 47-70 [facility] Work Phone: [phone] Potassium [Moles/Vol] 3.9 mmol/L 3.5-5.1 [facility] Work Phone: Sodium [Moles/Vol] 140 mmol/L 136-145 [facility] Work Phone: [phone] WBC (Bld) [#/Vol] 10.5 10*3/uL 4.4-11.0 [facility] Work Phone: [phone] Blood erythrocytes count (nu mber/volume)on 09-09-2021 RBC (Bld) [#/Vol] 5.23 10*6/uL 4.6-6.2 [facility] Work Phone: [phone] Blood hemoglobin measurement (mass/volume)on 09-09-2021 Hemoglobin (Bld) [Mass/Vol] 15.0 g/dL 13.0-16. 5 [facility] Work Phone: Blood lymphocytes/100 leukoc yteson 09-09-2021 Lymphocytes/100 WBC (Bld) 27.4 % 19-41 [facility] Work Phone: Blood monocytes/100 leukocyt eson 09-09-2021 Monocytes/100 WBC (Bld) 7.5 % 0-[address] [facility] Work Phone: Blood platelet mean volumeon 09-09-2021 Platelet mean volume (Bld) [Entitic vol] 9.1 fL 6.2-12.0 [facility] Work Phone: [phone] Determination of erythrocyte mean corpuscular volume (MCV)on 09-09-2021 MCV (RBC) [Entitic vol] 88.5 fL 80-[address] [facility] Work Phone: Hematocrit Auto (Bld) [Volum e fraction]on 09-09-2021 Hematocrit (Bld) [Volume fraction] 46.3 % 40-54 [facility] Work Phone: [phone] Laboratory - Chemistry and C hemistry - challengeon 09-09-2021 CO2 [Moles/Vol] 25.0 mmol/L 21.0-32.0 [facility] Work Phone: [phone] Urea nitrogen/Creatinine [Mass ratio] 22.4 mg/mg 10-20 [facility] Work Phone: Laboratory - Hematology and Cell countson 09-09-2021 Erythrocyte distribution width (RBC) [Entitic vol] 49.1 fL 35.1-43.9 [facility] Work Phone: [phone] Erythrocyte distribution width (RBC) [Ratio] 15.0 % 11.6-14.6 [facility] Work Phone: Immature granulocytes/100 WBC (Bld) 0.500 % 0.0-0.9 [facility] Work Phone: Comment on above: IG% - Immature Granu locytes (promyelocytes, myelocytes and metamyelocytes) > 1% indicates that a LEFT SHIFT is Present. MCH (RBC) [Entitic mass] 28.7 pg 27.0-32.0 [facility] Work Phone: Nucleated RBC/100 WBC (Bld) [Ratio] 0 % 0-5 [facility] Work Phone: MCHC Auto (RBC) [Mass/Vol]on 09-09-2021 MCHC (RBC) [Mass/Vol] 32.4 g/dL 32-36 [facility] Work Phone: No Panel Informationon 09-09 Estimated Creatinine Clearance Calc 80.85 ml/min [facility] Work Phone: Estimated GFR (MDRD) Amer 105 mL/min >60 [facility] Work Phone: Comment on above: GFR Calc Estimated GFR (MDRD) Non-Af Amer 87 mL/min >60 [facility] Work Phone: Comment on above: Non- GFR Calc Platelets bldon 09-09-2021 Platelets (Bld) [#/Vol] 308 10*3/uL 150-450 [facility] Work Phone: Serum or plasma calcium shantal urement (mass/volume)on 09-09-2021 Calcium [Mass/Vol] 9.0 mg/dL 8.5-10.1 [facility] Work Phone: Serum or plasma creatinine m easurement (mass/volume)on 09-09-2021 Creatinine [Mass/Vol] 0.94 mg/dL 0.70-1.30 [facility] Work Phone: Comment on above: The validity of the calculated GFR & GFRAA in patients over 70 years has not been determined. Clinical correlation is essential. Serum or plasma urea nitroge n measurement (mass/volume)on 09-09-2021 Urea nitrogen [Mass/Vol] 21 mg/dL 7-18 [facility] Work Phone: Thin prep Papanicolaou smear with manual screeningon 09-09-2021 Thin prep Papanicolaou smear with manual screening 4 5-15 [facility] Work Phone: Basophil percentageon 2021 Bilirubin [Mass/Vol] 0.60 mg/dL 0.20-1.00 [facility] Work Phone: Comment on above: For patients on eltr ombopag therapy, use of Dimension Dawson TBIL is not recommended. Chloride [Moles/Vol] 105 mmol/L 98-107 [facility] Work Phone: Glucose [Mass/Vol] 112 mg/dL 74-106 [facility] Work Phone: Comment on above: Fasting Glucose resu lt from 100 to 125 mg/dL suggests IMPAIRED HOMEOSTASIS per A.D.A. criteria. Potassium [Moles/Vol] 3.9 mmol/L 3.5-5.1 [facility] Work Phone: Protein [Mass/Vol] 7.6 g/dL 6.4-8.2 [facility] Work Phone: Sodium [Moles/Vol] 136 mmol/L 136-145 [facility] Work Phone: [phone] WBC (Bld) [#/Vol] 14.9 10*3/uL 4.4-11.0 [facility] Work Phone: [phone] Blood erythrocytes count (nu mber/volume)on 06-29-2021 RBC (Bld) [#/Vol] 6.16 10*6/uL 4.6-6.2 [facility] Work Phone: [phone] Blood hemoglobin measurement (mass/volume)on 06-29-2021 Hemoglobin (Bld) [Mass/Vol] 18.1 g/dL 13.0-16. 5 [facility] Work Phone: [phone] Blood platelet mean volumeon 06-29-2021 Platelet mean volume (Bld) [Entitic vol] 9.8 fL 6.2-12.0 [facility] Work Phone: Determination of erythrocyte mean corpuscular volume (MCV)on 06-29-2021 MCV (RBC) [Entitic vol] 86.7 fL 80-[address] [facility] Work Phone: [phone] Hematocrit Auto (Bld) [Volum e fraction]on 06-29-2021 Hematocrit (Bld) [Volume fraction] 53.4 % 40-54 [facility] Work Phone: [phone] Laboratory - Chemistry and C hemistry - challengeon 06-29-2021 ALP [Catalytic activity/Vol] 167 U/L 45-117 [facility] Work Phone: [phone] ALT [Catalytic activity/Vol] 23 U/L 16-61 [facility] Work Phone: [phone] CO2 [Moles/Vol] 24.0 mmol/L 21.0-32.0 [facility] Work Phone: [phone] Globulin (S) [Mass/Vol] 4.5 g/dL 2.2-4.[address] [facility] Work Phone: [phone] Urea nitrogen/Creatinine [Mass ratio] 19.4 mg/mg 10-20 [facility] Work Phone: [phone] Laboratory - Hematology and Cell countson 06-29-2021 Erythrocyte distribution width (RBC) [Entitic vol] 49.0 fL 35.1-43.9 [facility] Work Phone: [phone] Erythrocyte distribution width (RBC) [Ratio] 16.0 % 11.6-14.6 [facility] Work Phone: [phone] MCH (RBC) [Entitic mass] 29.4 pg 27.0-32.0 [facility] Work Phone: [phone] MCHC Auto (RBC) [Mass/Vol]on 06-29-2021 MCHC (RBC) [Mass/Vol] 33.9 g/dL 32-36 [facility] Work Phone: Comment on above: Delta: 32.1 on 06/28-0705 No Panel Informationon 06-29 Estimated Creatinine Clearance Calc 113.43 ml/min [facility] Work Phone: Estimated GFR (MDRD) Amer 156 mL/min >60 [facility] Work Phone: Comment on above: GFR Calc Estimated GFR (MDRD) Non-Af Amer 129 mL/min >60 [facility] Work Phone: Comment on above: Non- GFR Calc Platelets bldon 06-29-2021 Platelets (Bld) [#/Vol] 283 10*3/uL 150-450 [facility] Work Phone: Review by pathologiston - Pathologist review Isrrael (Unsp spec) [Interp] Reviewed [facility] Work Phone: Comment on above: Previous reported re sult: Eleni youssef Edited by: RGOOD on 06/30/21:0932Neutrophilic leukocytosis.Clinical correlation suggested.Norris Mc D.O. 06/30/21 AMENDED REPORT 06/30/21 0932 PATH REV previously reported as: Eleni youssef Serum or plasma albumin shantal urement (mass/volume)on 06-29-2021 Albumin [Mass/Vol] 3.1 g/dL 3.2-5.0 [facility] Work Phone: Serum or plasma albumin/glob ulin mass ratioon 06-29-2021 Albumin/Globulin [Mass ratio] 0.7 {ratio} 0.9-2.4 [facility] Work Phone: Serum or plasma calcium shantal urement (mass/volume)on 06-29-2021 Calcium [Mass/Vol] 9.5 mg/dL 8.5-10.1 [facility] Work Phone: Serum or plasma creatinine m easurement (mass/volume)on 06-29-2021 Creatinine [Mass/Vol] 0.67 mg/dL 0.70-1.30 [facility] Work Phone: Comment on above: The validity of the calculated GFR & GFRAA in patients over 70 years has not been determined. Clinical correlation is essential. Serum or plasma urea nitroge n measurement (mass/volume)on 06-29-2021 Urea nitrogen [Mass/Vol] 13 mg/dL 7-18 [facility] Work Phone: Thin prep Papanicolaou smear with manual screeningon 06-29-2021 Thin prep Papanicolaou smear with manual screening 36 U/L 15-37 [facility] Work Phone: Thin prep Papanicolaou smear with manual screening 7 5-15 [facility] Work Phone: Absolute lymphocyte counton 06-28-2021 Lymphocytes Auto (Unsp spec) [#/Vol] 2.53 10*3/uL 0.83-4.51 [facility] Work Phone: Basophil percentageon 2021 Basophils/100 WBC (Bld) 0.4 % 0-[address] [facility] Work Phone: Cholesterol [Mass/Vol] 142 mg/dL <200 [facility] Work Phone: Comment on above: <200 mg/dL Desirable 200-240 mg/dL Borderline >240 mg/dL High Risk Eosinophils/100 WBC (Bld) 2.1 % 0-5 [facility] Work Phone: Neutrophils (Bld) [#/Vol] 8.4 10*3/uL 2.0-7.7 [facility] Work Phone: Neutrophils/100 WBC (Bld) 69.2 % 47-70 [facility] Work Phone: Triglyceride [Mass/Vol] 141 mg/dL [facility] Work Phone: Comment on above: The drugs N-Acetylcy steine and Metamizole may falsely depress this assay.Serum Triglycerides Reference Interval Normal <150 mg/dL Borderline high 150 - 199 mg/dL High 200 - 499 mg/dL Very High > or = 500 mg/dL Blood lymphocytes/100 leukoc yteson 06-28-2021 Lymphocytes/100 WBC (Bld) 20.9 % 19-41 [facility] Work Phone: Blood monocytes/100 leukocyt eson 06-28-2021 Monocytes/100 WBC (Bld) 6.9 % 0-[address] [facility] Work Phone: Laboratory - Chemistry and C hemistry - challengeon 06-28-2021 Magnesium [Mass/Vol] 2.1 mg/dL 1.6-2.6 [facility] Work Phone: Laboratory - Hematology and Cell countson 06-28-2021 Immature granulocytes/100 WBC (Bld) 0.500 % 0.0-0.9 [facility] Work Phone: Comment on above: IG% - Immature Granu locytes (promyelocytes, myelocytes and metamyelocytes) > 1% indicates that a LEFT SHIFT is Present. Nucleated RBC/100 WBC (Bld) [Ratio] 0 % 0-5 [facility] Work Phone: No Panel Informationon 06-28 Troponin I High Sensitivity 3963 pg/mL 3.0-78.0 [facility] Work Phone: Comment on above: Critical Result(s) C alled at: 08:02:18 06/28/2021 by: Yesi Mcbride to [place]. Results read back by same. Please Note: New Test Units and Gender Specific Reference Ranges. For more information see Policy Stat Procedure Dawson High Sensitivity Troponin (TNIH) and attachments. Serum or plasma cholesterol in HDL measurement (mass/volume)on 06-28-2021 Cholesterol in HDL [Mass/Vol] 39 mg/dL [facility] Work Phone: Comment on above: The drugs N-Acetylcy steine and Metamizole may falsely depress this assay. Reference Range HDL <40 mg/dL Low HDL Cholesterol HDL >or= 60 mg/dL High HDL Cholesterol Serum or plasma cholesterol in VLDL measurement (mass/volume)on 06-28-2021 Cholesterol in VLDL [Mass/Vol] 28 mg/dL 5-40 [facility] Work Phone: Serum or plasma low density lipoprotein (LDL) cholesterol measurement (mass/volume)on 06-28-2021 Cholesterol in LDL [Mass/Vol] 75 mg/dL 0-130 [facility] Work Phone: Basic Metabolic Panelon 12-3 -2016 Anion gap 3 mmol/L Normal [facility] Comment on above: Performed By: #### H EMOG, LACT3, BMP3 ####[address] [place] [address] Calcium 8.5 mg/dL Normal 8.4-10.2 [facility] Comment on above: Performed By: #### H EMOG, LACT3, BMP3 ####[address] [place] [address] CO2 27 mmol/L Normal 22-30 [facility] Comment on above: Performed By: #### H EMOG, LACT3, BMP3 ####[address] [place] [address] Glucose mass conc 111 mg/dL High 70-100 [facility] Comment on above: Performed By: #### H EMOG, LACT3, BMP3 ####[address] [place] [address] Urea nitrogen 13 mg/dL Normal 7-20 [facility] Comment on above: Performed By: #### H EMOG, LACT3, BMP3 ####[address] [place] [address] Creatinine 0.71 mg/dL Normal 0.52-1.25 [facility] Comment on above: Performed By: #### H EMOG, LACT3, BMP3 ####[address] [place] [address] eGFR (black) mL/min/{1.73_m2} Normal >60 [facility] Comment on above: Performed By: #### H EMOG, LACT3, BMP3 ####[address] [place] [address] eGFR (non-black) mL/min/{1.73_m2} Normal >60 [facility] Comment on above: Result Comment: Sour ce- MDRD equation with creatinine calibration to IDMS(NKDEP)eGFR not recommended for drug dose adjustment Performed By: #### H DORIS LACT3, BMP3 ####[place] [address] Potassium molar conc 4.8 mmol/L Normal 3.5-5.1 [facility] Comment on above: Performed By: #### H DORIS LACT3, BMP3 ####[place] [address] Sodium 136 mmol/L Low 137-145 [facility] Comment on above: Performed By: #### H DORIS LACT3, BMP3 ####[place] [address] Chloride 106 mmol/L Normal 98-107 [facility] Comment on above: Performed By: #### H DORIS LACT3, BMP3 ####[place] [address] Hemogramon 05-28-2017 Erythrocyte distribution width Auto Ratio (RBC) 19.0 % High 11.5-14.5 [facility] Comment on above: Performed By: #### H DORIS LACT3, BMP3 ####[place] [address] Erythrocytes (RBC) 3.46 10*6/uL Low 4.40-5.90 [facility] Comment on above: Performed By: #### H DORIS LACT3, BMP3 ####[place] [address] Hematocrit (HCT) 28.1 % Low 40.0-52.0 [facility] Comment on above: Performed By: #### H DORIS LACT3, BMP3 ####[place] [address] Hemoglobin mass conc (Bld) 9.1 g/dL Low 13.0-18.0 [facility] Comment on above: Performed By: #### H DORIS LACT3, BMP3 ####[place] [address] MCH 26.4 pg Normal 26.0-34.0 [facility] Comment on above: Performed By: #### H EMOG, LACT3, BMP3 ####[address] [address] MCHC mass conc (RBC) 32.4 % Normal 32.0-36.0 [facility] Comment on above: Performed By: #### H EMOG, LACT3, BMP3 ####[address] [address] MCV 81.4 fL Normal 80.0-98.0 [facility] Comment on above: Performed By: #### H EMOG, LACT3, BMP3 ####[place] [address] Platelet mean volume (PMV) 6.9 fL Low 7.4-10.4 [facility] Comment on above: Performed By: #### H EMOG, LACT3, BMP3 ####[address] [address] Platelets 573 10*3/uL High 140-440 [facility] Comment on above: Performed By: #### H EMOG, LACT3, BMP3 ####[place] [address] WBC (Leukocytes) 11.2 10*3/uL High 3.6-10.7 [facility] Comment on above: Performed By: #### H EMOG, LACT3, BMP3 ####[place] [address] CR Chest Portableon 05-27-20 17 CR Chest Portable Patient Name: BAUTISTA RUFFIN Diagnostic Radiology Exam Date/Time 05/27/2017 11:05:26 EST Exam CR Chest Portable Ordering Physician DO FORBES KATHRYN C Accession Number [id number] CPT4 Codes 32462 () Reason For Exam line placement Report [...] Transcribed Date and Time: 05/27/2017 11:11 Normal [facility] Lactic Acidon 05-27-2017 Lactate 1.4 mmol/L Normal 0.7-2.0 [facility] Comment on above: Performed By: #### H EMOG, LACT3, BMP3 ####[address] [address] CR Chest Portableon 05-26-20 17 CR Chest Portable Patient Name: BAUTISTA RUFFIN Diagnostic Radiology Exam Date/Time 05/26/2017 16:21:52 EST Exam CR Chest Portable Ordering Physician DO FORBES KATHRYN C Accession Number [id number] CPT4 Codes 04203 () Reason For Exam line placement Report [...] Transcribed Date and Time: 05/26/2017 7:29 Normal [facility] US Fine Needle Aspiration w/ Image Guideon 05-25-2017 US Fine Needle Aspiration w/ Image Guide Patient Name: BAUTISTA RUFFIN Ultrasound Exam Date/Time 05/25/2017 12:15:00 EST Exam US Fine Needle Aspiration w/ Image Guide Ordering Physician MD VICKY, CHIVO Figueroa Accession Number [id number] CPT4 Codes 52987 () Reason For Exam rt hip effusion Report Reason for examination: Paraplegic patient with sepsis, 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 Ultrasound guided right hip aspiration was performed with the patient in his bed. The procedure, risks, benefits, and alternatives were explained to the patient, and informed consent was obtained. [place] protocol was followed with time out. The [...] Transcribed Date and Time: 05/25/2017 1:35 Normal [facility] Basic Metabolic Panelon 12-2 Calcium 8.0 mg/dL Low 8.4-10.2 [facility] Comment on above: Performed By: #### H EMOG, LACT3, BMP3 ####[address] [address] Anion gap 2 mmol/L Normal [facility] Comment on above: Performed By: #### H EMOG, LACT3, BMP3 ####[address] [address] CO2 30 mmol/L Normal 22-30 [facility] Comment on above: Performed By: #### H EMOG, LACT3, BMP3 ####[address] [address] [place] [address] Creatinine 0.60 mg/dL Normal 0.52-1.25 [facility] Comment on above: Performed By: #### H EMOG, LACT3, BMP3 ####[address] [place] [address] eGFR (black) mL/min/{1.73_m2} Normal >60 [facility] Comment on above: Performed By: #### H EMOG, LACT3, BMP3 ####[address] [place] [address] eGFR (non-black) mL/min/{1.73_m2} Normal >60 [facility] Comment on above: Result Comment: Sour ce- MDRD equation with creatinine calibration to IDMS(NKDEP)eGFR not recommended for drug dose adjustment Performed By: #### H EMOG, LACT3, BMP3 ####[address] [place] [address] Glucose mass conc 98 mg/dL Normal 70-100 [facility] Comment on above: Performed By: #### H EMOG, LACT3, BMP3 ####[address] [place] [address] Urea nitrogen 6 mg/dL Low 7-20 [facility] Comment on above: Performed By: #### H EMOG, LACT3, BMP3 ####[address] [place] [address] Chloride 106 mmol/L Normal 98-107 [facility] Comment on above: Performed By: #### H EMOG, LACT3, BMP3 ####[address] [place] [address] Potassium molar conc 3.7 mmol/L Normal 3.5-5.1 [facility] Comment on above: Performed By: #### H EMOG, LACT3, BMP3 ####[address] [place] [address] Sodium 138 mmol/L Normal 137-145 [facility] Comment on above: Performed By: #### H EMOG, LACT3, BMP3 ####[address] [address] CULTUREon 05-24-2017 CULTURE Specimen Source Comment:Body Fluid [facility] Patient name: BAUTISTA RUFFINR.N.: [id number] : 1960 Age: 57 Sex: M Ord. Physician: CHIVO PERRY Location: [address] [place] [address] Copy to: CHIVO PERRY Adm. Date: 05/19/17 MICROBIOLOGYORDER#: [id number] COLLECTED: 05/24/17 14:18SOURCE: Aspirate Right (Hip) RECEIVED: [...] DOSE DEPENDENT HARMAN VALUES = ug/mL Normal [facility] Comment on above: Performed By: #### H EMOG, LACT3, BMP3 ####[place] [address] CULTURE MYCOBACTERIA Conc.on 05-24-2017 CULTURE MYCOBACTERIA Conc. Specimen Sour ce Comment:Body Fluid [facility] Patient name: BAUTISTA RUFFINN.: [id number] : 1960 Age: 57 Sex: M Ord. Physician: CHIVO PERRY Location: [address] [place] [address] Copy to: CHIVO PERRY DISCHARGED: 05/30/17Adm. Date: 05/19/17 MICROBIOLOGYORDER#: [id number] COLLECTED: 05/24/17 14:18SOURCE: Aspirate Right (Hip) RECEIVED: 05/25/17 17:51 OE C O M M E N T S Sp ecimen Source Comment:Body FluidCULTURE MYCOBACTERIA Conc. FINAL 07/07/17 17:Test performed at [facility] Microbiology Lab07/07/17No acid-fast bacilli isolated after 6 weeks incubation. Normal [facility] Comment on above: Performed By: #### H EMOG, LACT3, BMP3 ####[address] [place] [address] Ironon 05-24-2017 Saturation 7 % Low 15-50 [facility] Comment on above: Performed By: #### H EMOG, LACT3, BMP3 ####[address] [place] [address] Total Iron Binding Cap. 142 ug/dL Low 261-497 [facility] Comment on above: Performed By: #### H EMOG, LACT3, BMP3 ####[address] [place] [address] Iron, Total <10 Low 49-181 [facility] Comment on above: Performed By: #### H EMOG, LACT3, BMP3 ####[address] [place] [address] STAIN ACID-FASTon 05-24-2017 STAIN ACID-FAST Specimen Source Comment:Body Fluid [facility] Patient name: BAUTISTA RUFFIN MGageR.N.: [id number] : 1960 Age: 57 Sex: M Ord. Physician: CHIVO PERRY Location: [address] [place] [address] Copy to: CHIVO PERRY Adm. Date: 05/19/17 MICROBIOLOGYORDER#: [id number] COLLECTED: 05/24/17 14:18SOURCE: Aspirate Right (Hip) RECEIVED: 05/25/17 17:51 OE C O M M E N T S Sp ecimen Source Comment:Body FluidSTAIN ACID-FAST FINAL 05/26/17 21:No acid-fast bacilli seen in smear.-Method: Fluorescent Stain Normal [facility] Comment on above: Performed By: #### H EMOG, LACT3, BMP3 ####[address] [place] [address] Vitamin B12on 05-24-2017 Cobalamins (Vitamin B12) 538 pg/mL Normal 239-931 [facility] Comment on above: Performed By: #### H EMOG, LACT3, BMP3 ####[address] [place] [address] Basic Metabolic Panelon 04-29 Anion gap 4 mmol/L Normal [facility] Comment on above: Performed By: #### H EMOG, LACT3, BMP3 ####[address] [place] [address] Calcium 7.6 mg/dL Low 8.4-10.2 [facility] Comment on above: Performed By: #### H EMOG, LACT3, BMP3 ####[address] [place] [address] CO2 24 mmol/L Normal 22-30 [facility] Comment on above: Performed By: #### H EMOG, LACT3, BMP3 ####[address] [place] [address] Glucose mass conc 112 mg/dL High 70-100 [facility] Comment on above: Performed By: #### H EMOG, LACT3, BMP3 ####[address] [place] [address] Urea nitrogen 9 mg/dL Normal 7-20 [facility] Comment on above: Performed By: #### H EMOG, LACT3, BMP3 ####[address] [place] [address] Creatinine 0.62 mg/dL Normal 0.52-1.25 [facility] Comment on above: Performed By: #### H EMOG, LACT3, BMP3 ####[address] [place] [address] eGFR (black) mL/min/{1.73_m2} Normal >60 [facility] Comment on above: Performed By: #### H EMOG, LACT3, BMP3 ####[address] [place] [address] eGFR (non-black) mL/min/{1.73_m2} Normal >60 [facility] Comment on above: Result Comment: Sour ce- MDRD equation with creatinine calibration to IDMS(NKDEP)eGFR not recommended for drug dose adjustment Performed By: #### H EMOG, LACT3, BMP3 ####[address] [place] [address] Chloride 115 mmol/L High 98-107 [facility] Comment on above: Performed By: #### H EMOG, LACT3, BMP3 ####[address] [place] [address] Potassium molar conc 3.1 mmol/L Low 3.5-5.1 [facility] Comment on above: Performed By: #### H EMOG, LACT3, BMP3 ####[address] [place] [address] Sodium 143 mmol/L Normal 137-145 [facility] Comment on above: Performed By: #### H EMOG, LACT3, BMP3 ####[address] [address] [address] Pelvis w/ Contrast (IV On ly)on 05-23-2017 CT Pelvis w/ Contrast (IV Only) Patient Name: BAUTISTA RUFFIN CT Exam Date/Time 05/23/2017 14:28:[address] Pelvis w/ Contrast (IV Only) Ordering Physician TRINA MAYER Accession Number [id number] CPT4 Codes Q9967 (), 31831 (CT Pelvis w/ Contrast (IV Only)) Reason [...] Transcribed Date and Time: 05/23/2017 3:48 Normal [facility] Hemogramon 05-23-2017 Erythrocyte distribution width Auto Ratio (RBC) 18.5 % High 11.5-14.5 [facility] Comment on above: Performed By: #### H EMOG, LACT3, BMP3 ####[address] [address] Erythrocytes (RBC) 3.28 10*6/uL Low 4.40-5.90 [facility] Comment on above: Performed By: #### H EMOG, LACT3, BMP3 ####[address] [address] Hematocrit (HCT) 27.1 % Low 40.0-52.0 [facility] Comment on above: Performed By: #### H EMOG, LACT3, BMP3 ####[place] [address] Hemoglobin mass conc (Bld) 8.8 g/dL Low 13.0-18.0 [facility] Comment on above: Performed By: #### H EMOG, LACT3, BMP3 ####[place] [address] MCH 26.8 pg Normal 26.0-34.0 [facility] Comment on above: Performed By: #### H EMOG, LACT3, BMP3 ####[place] [address] MCHC mass conc (RBC) 32.5 % Normal 32.0-36.0 [facility] Comment on above: Performed By: #### H EMOG, LACT3, BMP3 ####[place] [address] MCV 82.6 fL Normal 80.0-98.0 [facility] Comment on above: Performed By: #### H EMOG, LACT3, BMP3 ####[place] [address] Platelet mean volume (PMV) 6.9 fL Low 7.4-10.4 [facility] Comment on above: Performed By: #### H EMOG, LACT3, BMP3 ####[place] [address] Platelets 829 10*3/uL High 140-440 [facility] Comment on above: Performed By: #### H EMOG, LACT3, BMP3 ####[place] [address] WBC (Leukocytes) 14.6 10*3/uL High 3.6-10.7 [facility] Comment on above: Performed By: #### H EMOG, LACT3, BMP3 ####[place] [address] Basic Metabolic Panelon 12-2 Calcium 7.9 mg/dL Low 8.4-10.2 [facility] Comment on above: Performed By: #### DAWIT ALEXANDRA3 ####[address] [place] [address] Glucose mass conc 163 mg/dL High 70-100 [facility] Comment on above: Performed By: #### Xander GEORGE BMP3 ####[address] [place] [address] Urea nitrogen 8 mg/dL Normal 7-20 [facility] Comment on above: Performed By: #### DAWIT ALEXANDRA3 ####[address] [place] [address] Anion gap 6 mmol/L Normal [facility] Comment on above: Performed By: #### Xander GEORGE BMP3 ####[address] [place] [address] CO2 22 mmol/L Normal 22-30 [facility] Comment on above: Performed By: #### DAWIT ALEXANDRA3 ####[address] [place] [address] Creatinine 0.69 mg/dL Normal 0.52-1.25 [facility] Comment on above: Performed By: #### DAWIT ALEXANDRA3 ####[address] [place] [address] eGFR (black) mL/min/{1.73_m2} Normal >60 [facility] Comment on above: Performed By: #### DAWIT ALEXANDRA3 ####[address] [place] [address] eGFR (non-black) mL/min/{1.73_m2} Normal >60 [facility] Comment on above: Result Comment: Sour ce- MDRD equation with creatinine calibration to IDMS(NKDEP)eGFR not recommended for drug dose adjustment Performed By: #### Xander GEORGE BMP3 ####[address] [place] [address] Potassium molar conc 3.3 mmol/L Low 3.5-5.1 [facility] Comment on above: Performed By: #### DAWIT ALEXANDRA3 ####[address] [place] [address] Chloride 118 mmol/L High 98-107 [facility] Comment on above: Performed By: #### H EMOG, BMP3 ####[id number] [place] [address] Sodium 145 mmol/L Normal 137-145 [facility] Comment on above: Performed By: #### H EMOG, BMP3 ####[address] [place] [address] C-Reactive Proteinon 017 C reactive protein (CRP) 51.9 mg/L High 0.0-6.0 [facility] Comment on above: Result Comment: . Performed By: #### H EMOG, LACT3, BMP3 ####[address] [place] [address] CR Hip w/ Pelvis 2 or 3 View s Lefton 05-22-2017 CR Hip w/ Pelvis 2 or 3 Views Left Patient Name: BAUTISTA RUFFIN Diagnostic Radiology Exam Date/Time 05/22/2017 19:52:21 EST Exam CR Hip w/ Pelvis 2 or 3 Views Left n Ordering Physician MD LEDESMA ADAM Accession Number [id number] CPT4 Codes 23381 () Reason For Exam pain Report LEFT [...] Transcribed Date and Time: 05/22/2017 7:32 Normal [facility] Hemogramon 05-22-2017 Erythrocyte distribution width Auto Ratio (RBC) 18.1 % High 11.5-14.5 [facility] Comment on above: Performed By: #### H DORIS BMP3 ####[address] [place] [address] Erythrocytes (RBC) 3.53 10*6/uL Low 4.40-5.90 [facility] Comment on above: Performed By: #### H DORIS BMP3 ####[address] [place] [address] Hematocrit (HCT) 29.1 % Low 40.0-52.0 [facility] Comment on above: Performed By: #### H DORIS BMP3 ####[address] [place] [address] Hemoglobin mass conc (Bld) 9.6 g/dL Low 13.0-18.0 [facility] Comment on above: Performed By: #### H DORIS, BMP3 ####[address] [place] [address] MCH 27.2 pg Normal 26.0-34.0 [facility] Comment on above: Performed By: #### H EMOG, BMP3 ####[address] [place] [address] MCHC mass conc (RBC) 32.9 % Normal 32.0-36.0 [facility] Comment on above: Performed By: #### H EMOG, BMP3 ####[address] [place] [address] MCV 82.5 fL Normal 80.0-98.0 [facility] Comment on above: Performed By: #### H EMOBentley, BMP3 ####[address] [place] [address] Platelet mean volume (PMV) 7.1 fL Low 7.4-10.4 [facility] Comment on above: Performed By: #### H DORIS BMP3 ####[address] [place] [address] Platelets 823 10*3/uL High 140-440 [facility] Comment on above: Result Comment: repe ated Performed By: #### H DORIS BMP3 ####[address] [place] [address] WBC (Leukocytes) 16.9 10*3/uL High 3.6-10.7 [facility] Comment on above: Performed By: #### Xander GEORGE BMP3 ####[address] [place] [address] Sed Rateon 05-22-2017 Sed Rate 64 mm/h High 0-10 [facility] Comment on above: Performed By: #### Xander GEORGE LACT3, BMP3 ####[address] [place] [address] Basic Metabolic Panelon 04-29 Calcium 7.6 mg/dL Low 8.4-10.2 [facility] Comment on above: Performed By: #### ARINA WINN HEMOG ####[address] [place] [address] Glucose mass conc 140 mg/dL High 70-100 [facility] Comment on above: Performed By: #### ARINA WINN HEMOG ####[address] [place] [address] Urea nitrogen 6 mg/dL Low 7-20 [facility] Comment on above: Performed By: #### ARINA WINN HEMOG ####[address] [place] [address] Anion gap 6 mmol/L Normal [facility] Comment on above: Performed By: #### ARINA WINN HEMOG ####[address] [place] [address] CO2 20 mmol/L Low 22-30 [facility] Comment on above: Performed By: #### ARINA WINN, HEMOG ####[address] [place] [address] Creatinine 0.70 mg/dL Normal 0.52-1.25 [facility] Comment on above: Performed By: #### ARINA WINN, HEMOG ####[address] [place] [address] eGFR (black) mL/min/{1.73_m2} Normal >60 [facility] Comment on above: Performed By: #### ARINA WINN HEMOG ####[address] [place] [address] eGFR (non-black) mL/min/{1.73_m2} Normal >60 [facility] Comment on above: Result Comment: Sour ce- MDRD equation with creatinine calibration to IDMS(NKDEP)eGFR not recommended for drug dose adjustment Performed By: #### ARINA WINN HEMOG ####[address] [place] [address] Potassium molar conc 3.5 mmol/L Normal 3.5-5.1 [facility] Comment on above: Performed By: #### ARINA WINN HEMOG ####[address] [place] [address] Chloride 110 mmol/L High 98-107 [facility] Comment on above: Performed By: #### ARINA WINN HEMOG ####[address] [place] [address] Sodium 137 mmol/L Normal 137-145 [facility] Comment on above: Performed By: #### ARINA WINN HEMOG ####[address] [place] [address] CULTURE BLOODon 05-21-2017 CULTURE BLOOD Specimen Source Comment:Blood [facility] Patient name: BAUTISTA RUFFIN Jesse.N.: [id number] : 1960 Age: 57 Sex: M Ord. Physician: TRINA MAYER Location: 5[facility] Copy to: TRINA MAYER Adm. Date: 05/19/17 MICROBIOLOGYORDER#: [id number] COLLECTED: 05/21/17 16:15SOURCE: Blood (Right -wrist) RECEIVED: 05/21/17 16:50 BUSTER Solares S Sp ecimen Source Comment:BloodCULTURE BLOOD FINAL 05/26/17 17:No growth at 5 days. Normal [facility] Comment on above: Performed By: #### C /CANDE ####[address] [address] CULTURE BLOOD Specimen Source Comment:Blood [facility] Patient name: BAUTISTA RUFFIN JigneshRGageN.: [id number] : 1960 Age: 57 Sex: M Ord. Physician: MORENOTRINA Location: [address] [place] [address] Copy to: TRINA MAYER Adm. Date: 05/19/17 MICROBIOLOGYORDER#: [id number] COLLECTED: 05/21/17 15:00SOURCE: Blood (Left -antecub) RECEIVED: 05/21/17 15:36 BUSTER Solares S Sp ecimen Source Comment:BloodCULTURE BLOOD FINAL 05/26/17 17:No growth at 5 days. Normal [facility] Comment on above: Performed By: #### C /CHUCHOD ####[address] [address] Hemogramon 05-21-2017 Erythrocyte distribution width Auto Ratio (RBC) 18.6 % High 11.5-14.5 [facility] Comment on above: Performed By: #### ARINA WINN, HEMOG ####[address] [place] [address] Erythrocytes (RBC) 3.22 10*6/uL Low 4.40-5.90 [facility] Comment on above: Performed By: #### ARINA WINN, HEMOG ####[address] [place] [address] Hematocrit (HCT) 26.3 % Low 40.0-52.0 [facility] Comment on above: Performed By: #### ARINA WINN, HEMOG ####[address] [place] [address] Hemoglobin mass conc (Bld) 8.6 g/dL Low 13.0-18.0 [facility] Comment on above: Performed By: #### ARINA WINN, HEMOG ####[address] [place] [address] MCH 26.8 pg Normal 26.0-34.0 [facility] Comment on above: Performed By: #### ARINA WINN, HEMOG ####[address] [place] [address] MCHC mass conc (RBC) 32.9 % Normal 32.0-36.0 [facility] Comment on above: Performed By: #### ARINA WINN, HEMOG ####[address] [place] [address] MCV 81.6 fL Normal 80.0-98.0 [facility] Comment on above: Performed By: #### ARINA WINN, HEMOG ####[address] [place] [address] Platelet mean volume (PMV) 7.0 fL Low 7.4-10.4 [facility] Comment on above: Performed By: #### ARINA WINN, HEMOG ####[address] [place] [address] Platelets 736 10*3/uL High 140-440 [facility] Comment on above: Performed By: #### Chris PIEDRAARINA Neil, HEMOG ####[address] [place] [address] WBC (Leukocytes) 11.1 10*3/uL High 3.6-10.7 [facility] Comment on above: Performed By: #### B ARINA ZHANG, HEMOG ####[address] [place] [address] Vancomycin Troughon 05-21-20 17 Vancomycin Trough 25.8 ug/mL High 5.0-10.0 [facility] Comment on above: Result Comment: . Performed By: #### B ARINA ZHANG, HEMOG ####[address] [place] [address] Basic Metabolic Panelon 04-29 Calcium 8.2 mg/dL Low 8.4-10.2 [facility] Comment on above: Performed By: #### H EMOG, LACT3, BMP3 ####[address] [place] [address] Glucose mass conc 92 mg/dL Normal 70-100 [facility] Comment on above: Performed By: #### H EMOG, LACT3, BMP3 ####[address] [place] [address] Urea nitrogen 8 mg/dL Normal 7-20 [facility] Comment on above: Performed By: #### H EMOG, LACT3, BMP3 ####[address] [place] [address] Anion gap 7 mmol/L Normal [facility] Comment on above: Performed By: #### H EMOG, LACT3, BMP3 ####[address] [place] [address] CO2 19 mmol/L Low 22-30 [facility] Comment on above: Performed By: #### H EMOG, LACT3, BMP3 ####[address] [place] [address] Creatinine 0.78 mg/dL Normal 0.52-1.25 [facility] Comment on above: Performed By: #### H EMOG, LACT3, BMP3 ####[address] [place] [address] eGFR (black) mL/min/{1.73_m2} Normal >60 [facility] Comment on above: Performed By: #### H EMOG, LACT3, BMP3 ####[address] [place] [address] eGFR (non-black) mL/min/{1.73_m2} Normal >60 [facility] Comment on above: Result Comment: Sour ce- MDRD equation with creatinine calibration to IDMS(NKDEP)eGFR not recommended for drug dose adjustment Performed By: #### H EMOG, LACT3, BMP3 ####[address] [place] [address] Potassium molar conc 3.6 mmol/L Normal 3.5-5.1 [facility] Comment on above: Performed By: #### H EMOG, LACT3, BMP3 ####[address] [place] [address] Chloride 113 mmol/L High 98-107 [facility] Comment on above: Performed By: #### H EMOG, LACT3, BMP3 ####[address] [place] [address] Sodium 139 mmol/L Normal 137-145 [facility] Comment on above: Performed By: #### H EMOG, LACT3, BMP3 ####[address] [place] [address] Hemogramon 05-20-2017 Erythrocyte distribution width Auto Ratio (RBC) 18.7 % High 11.5-14.5 [facility] Comment on above: Performed By: #### H EMOG, LACT3, BMP3 ####[address] [place] [address] Erythrocytes (RBC) 3.38 10*6/uL Low 4.40-5.90 [facility] Comment on above: Performed By: #### H EMOG, LACT3, BMP3 ####[address] [place] [address] Hematocrit (HCT) 27.7 % Low 40.0-52.0 [facility] Comment on above: Performed By: #### H EMOG, LACT3, BMP3 ####[address] [address] Hemoglobin mass conc (Bld) 9.2 g/dL Low 13.0-18.0 [facility] Comment on above: Performed By: #### H EMOG, LACT3, BMP3 ####[address] [address] MCH 27.3 pg Normal 26.0-34.0 [facility] Comment on above: Performed By: #### H EMOG, LACT3, BMP3 ####[address] [address] MCHC mass conc (RBC) 33.3 % Normal 32.0-36.0 [facility] Comment on above: Performed By: #### H EMOG, LACT3, BMP3 ####[place] [address] MCV 82.1 fL Normal 80.0-98.0 [facility] Comment on above: Performed By: #### H EMOG, LACT3, BMP3 ####[place] [address] Platelet mean volume (PMV) 7.0 fL Low 7.4-10.4 [facility] Comment on above: Performed By: #### H EMOG, LACT3, BMP3 ####[address] [address] Platelets 749 10*3/uL High 140-440 [facility] Comment on above: Performed By: #### H EMOG, LACT3, BMP3 ####[address] [address] WBC (Leukocytes) 15.6 10*3/uL High 3.6-10.7 [facility] Comment on above: Performed By: #### H EMOG, LACT3, BMP3 ####[address] [address] Lactic Acidon 05-20-2017 Lactate 0.6 mmol/L Low 0.7-2.0 [facility] Comment on above: Performed By: #### H EMOG, LACT3, BMP3 ####[address] [place] [address] VANC TROUGHon 04-08-2017 VANC TROUGH 14.4 MCG/ML Low 15.0-20.0 [facility] [place] Comment on above: Performed By: #### L 520.92107 ####[facility] [id number] [place], [place] [address]Ae# [phone] BMPon 04-03-2017 Anion gap 9 mmol/L Normal 5-16 [facility] Comment on above: Performed By: #### L 500.12627, L500.04775, L520.12355 ####[facility] [id number] [place], [place] [address]Zw# [phone] BUN/Creatinine Ratio 23 mg/mg Normal 15-24 [facility] Comment on above: Performed By: #### L 500.98769, L500.99883, L520.03938 ####[facility] [id number] [place], [place] [address]Mv# [phone] Calcium 8.6 mg/dL Normal 8.5-10.1 [facility] Comment on above: Performed By: #### L 500.93244, L500.64792, L520.72523 ####[facility] [id number] [place], [place] [address]Rh# [phone] Chloride 103 mmol/L Normal 98-107 [facility] Comment on above: Performed By: #### L 500.22628, L500.27002, L520.07454 ####[facility] [id number] [place], [place] [address]De# [phone] CO2 26 mmol/L Normal 21-32 [facility] Comment on above: Performed By: #### L 500.69364, L500.58297, L520.94169 ####[facility] [id number] [place], [place] [address]Dt# [phone] Creatinine 1.370 mg/dL High 0.670-1.17 0 [facility] Comment on above: Result Comment: Noni ents receiving either N-Acetylcysteine (NAC) orMetamizole prior to venipuncture, may have falsely depressedresults. Performed By: #### L 500.85721, L500.69906, L520.55893 ####[facility] [id number] [place], [place] [address]Da# [phone] Glucose mass conc 95 mg/dL Normal 70-100 [facility] Comment on above: Result Comment: 70-1 00-Normal Fasting; [id number]-Qmbxywfl Fasting; greaterthan 126 on more than one result-Diabetes. ADA guidelines Performed By: #### L 500.76994, L500.33092, L520.31209 ####[facility] [id number] [place], [place] [address]Gn# [phone] Potassium molar conc 4.5 mmol/L Normal 3.5-5.1 [facility] Comment on above: Performed By: #### L 500.86646, L500.66337, L520.58636 ####[facility] [id number] [place], [place] [address]Gw# [phone] Sodium 138 mmol/L Normal 136-145 [facility] Comment on above: Performed By: #### L 500.96158, L500.31149, L520.87866 ####[facility] [id number] [place], [place] [address]Ry# [phone] Urea nitrogen 31 mg/dL High 7-26 [facility] Comment on above: Performed By: #### L 500.74363, L500.61560, L520.70648 ####[facility] [id number] [place], [place] [address]Qn# [phone] GFR ESTon 04-03-2017 IF AMER Greater than [address] [facility] Comment on above: Performed By: #### L 500.51778, L500.30158, L520.53444 ####[facility] [id number] [place], [place] [address]Pl# [phone] IF non-AFR AMER 54 ML/MIN Normal [facility] Comment on above: Performed By: #### L 500.02154, L500.54191, L520.06530 ####[facility] [id number] [place], [place] [address]Ml# [phone] on 04-03-2017 Hematocrit (HCT) 32.7 % Low 41.0-53.0 [facility] Comment on above: Performed By: #### L 200.09627 ####[facility] [id number] [place] [address]Zc# [phone] Hemoglobin mass conc (Bld) 10.3 g/dL Low 13.5-17.5 [facility] Comment on above: Performed By: #### L 200.36163 ####[facility] [id number] [place] [address]Oh# [phone] VANC TROUGHon 04-03-2017 VANC TROUGH 14.7 MCG/ML Low 15.0-20.0 [facility] Comment on above: Performed By: #### L 500.76099, L500.56647, L520.74100 ####[facility] [id number] [place] [address]Fo# [phone] on 03-29-2017 Hematocrit (HCT) 30.1 % Low 41.0-53.0 [facility] Comment on above: Performed By: #### L 200.85707 ####[facility] [id number] [place] [address]Zl# [phone] Hemoglobin mass conc (Bld) 9.4 g/dL Low 13.5-17.5 [facility] Comment on above: Performed By: #### L 200.00314 ####[facility] [id number] [place] [address]Nt# [phone] VANC TROUGHon 03-28-2017 VANC TROUGH 20.7 MCG/ML Critically high 15.0-20.0 [facility] Comment on above: Result Comment: Crit ical Result(s) Called at: 22:55:07 on 03/27/2017 by:Vanessa Bianchi to and read back by: Jami LR AT [facility] Performed By: #### L 520.40183 ####[facility] [id number] [place], [place] [address]Ha# [phone] VANC TROUGHon 03-23-2017 VANC TROUGH 25.3 MCG/ML Critically high 15.0-20.0 [facility] Comment on above: Result Comment: Crit ical Result(s) Called at: 12:22:05 on 03/23/2017 by:Piedad Thomas to and read back by: BLANCHE HILLMAN RN Performed By: #### L 520.36266 ####[facility] [id number] [place], [place] [address]Eb# [phone] Influenza virus A and B and SARS-CoV-2 (COVID-19) Ag panel - Upper respiratory specim SARS-CoV-2 (COVID-19) RNA ZEKE+probe Ql (Resp) [facility] Work Phone: Vital Signs Date Time Vital Sign Value Performing Clinician Samir walker 11-01-2024 18:00-0400 Diastolic blood pressure 84 mm[Hg] [facility] 11-01-2024 18:00-0400 Heart rate 82 /min [facility] 11-01-2024 18:00-0400 Respiratory rate 16 /min [facility] 11-01-2024 18:00-0400 SaO2% (BldA) [Mass fraction] 96 % [facility] 11-01-2024 18:00-0400 Systolic blood pressure 132 mm[Hg] [facility] 11-01-2024 16:30-0400 Body temperature 98.3 [degF] [facility] 11-01-2024 14:11-0400 Body height 172.72 cm [facility] 11-01-2024 14:11-0400 Body mass index (BMI) [Ratio] 27.6 kg/m2 [facility] 11-01-2024 14:11-0400 Body weight 82.3 kg [facility] 09-12-2024 13:04-0400 Body temperature 97.8 [degF] [facility] 09-12-2024 13:04-0400 Diastolic blood pressure 85 mm[Hg] [facility] 09-12-2024 13:04-0400 Heart rate 75 /min [facility] 09-12-2024 13:04-0400 Respiratory rate 16 /min [facility] 09-12-2024 13:04-0400 SaO2% (BldA) [Mass fraction] 97 % [facility] 09-12-2024 13:04-0400 Systolic blood pressure 149 mm[Hg] [facility] 09-11-2024 15:37-0400 Body height 175.01 cm [facility] 09-11-2024 15:37-0400 Body mass index (BMI) [Ratio] 27.8 kg/m2 [facility] 09-11-2024 15:37-0400 Body weight 85.41 kg [facility] 07-14-2024 12:00-0500 Body temperature 97.6 [degF] [facility] 07-14-2024 12:00-0500 Diastolic blood pressure 86 mm[Hg] [facility] 07-14-2024 12:00-0500 Heart rate 82 /min [facility] 07-14-2024 12:00-0500 Respiratory rate 17 /min [facility] 07-14-2024 12:00-0500 SaO2% (BldA) [Mass fraction] 94 % [facility] 07-14-2024 12:00-0500 Systolic blood pressure 139 mm[Hg] [facility] 07-14-2024 07:06-0500 Body mass index (BMI) [Ratio] 28.3 kg/m2 [facility] 07-14-2024 07:06-0500 Body weight 87.2 kg [facility] 07-13-2024 07:00-0500 Diastolic blood pressure 101 mm[Hg] [facility] 07-13-2024 07:00-0500 Heart rate 83 /min [facility] 07-13-2024 07:00-0500 Respiratory rate 18 /min [facility] 07-13-2024 07:00-0500 SaO2% (BldA) [Mass fraction] 99 % [facility] 07-13-2024 07:00-0500 Systolic blood pressure 176 mm[Hg] [facility] 07-13-2024 06:40-0500 Body temperature 97.8 [degF] [facility] 07-13-2024 02:28-0500 Body mass index (BMI) [Ratio] 26.6 kg/m2 [facility] 07-13-2024 02:28-0500 Body weight 81.8 kg [facility] 06-19-2024 15:07-0500 Body temperature 98.3 [degF] [facility] 06-19-2024 15:07-0500 Diastolic blood pressure 92 mm[Hg] [facility] 06-19-2024 15:07-0500 Heart rate 88 /min [facility] 06-19-2024 15:07-0500 Respiratory rate 18 /min [facility] 06-19-2024 15:07-0500 SaO2% (BldA) [Mass fraction] 98 % [facility] 06-19-2024 15:07-0500 Systolic blood pressure 138 mm[Hg] [facility] 06-19-2024 05:37-0500 Body mass index (BMI) [Ratio] 25.4 kg/m2 [facility] 06-19-2024 05:37-0500 Body weight 78.1 kg [facility] 06-14-2024 21:55-0500 Body temperature 98.1 [degF] [facility] 06-14-2024 21:55-0500 Diastolic blood pressure 76 mm[Hg] [facility] 06-14-2024 21:55-0500 Heart rate 90 /min [facility] 06-14-2024 21:55-0500 Respiratory rate 16 /min [facility] 06-14-2024 21:55-0500 SaO2% (BldA) [Mass fraction] 98 % [facility] 06-14-2024 21:55-0500 Systolic blood pressure 155 mm[Hg] [facility] 06-12-2024 14:34-0500 Body weight 95.5 kg [facility] 06-11-2024 23:14-0500 Body mass index (BMI) [Ratio] 31.1 kg/m2 [facility] 10-09-2023 05:00-0400 Body temperature 97.5 [degF] [facility] 10-09-2023 05:00-0400 Diastolic blood pressure 91 mm[Hg] [facility] 10-09-2023 05:00-0400 Heart rate 95 /min [facility] 10-09-2023 05:00-0400 Respiratory rate 16 /min [facility] 10-09-2023 05:00-0400 SaO2% (BldA) [Mass fraction] 97 % [facility] 10-09-2023 05:00-0400 Systolic blood pressure 128 mm[Hg] [facility] 10-09-2023 01:12-0400 Body height 175.26 cm [facility] 06-07-2022 00:00-0500 Diastolic blood pressure 78 mm[Hg] [facility] Work Phone: 06-07-2022 00:00-0500 Heart rate 81 /min [facility] Work Phone: 06-07-2022 00:00-0500 Respiratory rate 14 /min [facility] Work Phone: 06-07-2022 00:00-0500 SaO2% (BldA) [Mass fraction] 97 % [facility] Work Phone: 06-07-2022 00:00-0500 Systolic blood pressure 119 mm[Hg] [facility] Work Phone: 06-06-2022 16:16-0500 Body height 170.18 cm [facility] Work Phone: 06-06-2022 16:16-0500 Body mass index (BMI) [Ratio] 26.6 kg/m2 [facility] Work Phone: 06-06-2022 16:16-0500 Body temperature 97.5 [degF] [facility] Work Phone: 06-06-2022 16:16-0500 Body weight 77.3 kg [facility] Work Phone: 05-22-2022 21:09-0500 Diastolic blood pressure 93 mm[Hg] [facility] Work Phone: 05-22-2022 21:09-0500 Heart rate 121 /min [facility] Work Phone: 05-22-2022 21:09-0500 Respiratory rate 30 /min [facility] Work Phone: 05-22-2022 21:09-0500 SaO2% (BldA) [Mass fraction] 96 % [facility] Work Phone: 05-22-2022 21:09-0500 Systolic blood pressure 143 mm[Hg] [facility] Work Phone: 05-22-2022 20:08-0500 Body temperature 97.6 [degF] [facility] Work Phone: 05-22-2022 16:40-0500 Body height 175.26 cm [facility] Work Phone: 05-22-2022 16:40-0500 Body mass index (BMI) [Ratio] 26.2 kg/m2 [facility] Work Phone: 05-22-2022 16:40-0500 Body weight 80.5 kg [facility] Work Phone: 09-09-2021 17:43-0400 Diastolic blood pressure 100 mm[Hg] [facility] Work Phone: 09-09-2021 17:43-0400 Heart rate 70 /min [facility] Work Phone: 09-09-2021 17:43-0400 Respiratory rate 16 /min [facility] Work Phone: 09-09-2021 17:43-0400 SaO2% (BldA) [Mass fraction] 97 % [facility] Work Phone: 09-09-2021 17:43-0400 Systolic blood pressure 122 mm[Hg] [facility] Work Phone: 09-09-2021 15:23-0400 Body temperature 97.6 [degF] [facility] Work Phone: 09-09-2021 15:20-0400 Body height 172.72 cm [facility] Work Phone: 09-09-2021 15:20-0400 Body mass index (BMI) [Ratio] 26.6 kg/m2 [facility] Work Phone: 09-09-2021 15:20-0400 Body weight 79.6 kg [facility] Work Phone: 06-29-2021 10:00-0500 Heart rate 112 /min [facility] Work Phone: 06-29-2021 08:38-0500 Body temperature 98 [degF] [facility] Work Phone: 06-29-2021 08:38-0500 Diastolic blood pressure 93 mm[Hg] [facility] Work Phone: 06-29-2021 08:38-0500 Respiratory rate 16 /min [facility] Work Phone: 06-29-2021 08:38-0500 SaO2% (BldA) [Mass fraction] 98 % [facility] Work Phone: 06-29-2021 08:38-0500 Systolic blood pressure 122 mm[Hg] [facility] Work Phone: 06-29-2021 05:00-0500 Body weight 74 kg [facility] Work Phone: 06-28-2021 02:52-0500 Body mass index (BMI) [Ratio] 23.9 kg/m2 [facility] Work Phone: Encounters Encounter Date Encounter Type Care Provider Facility Start: 11-03-2024 Emergency department patient visit [facility] Facility:[facility] Start: 11-01-2024 End: 11-01-2024 [facility] Start: 09-11-2024 End: 09-12-2024 [facility] Start: 07-14-2024 End: 07-14-2024 Emergency department patient visit Dr. Rico Moore DO -Emergency Department Work Phone: Start: 07-13-2024 End: 07-13-2024 Emergency department patient visit Richie Borden DO -Emergency Department Work Phone: Start: 06-19-2024 Non-patient / Non-visit Dr. Darian Arceo MD -[facility] Work Phone: Start: 06-18-2024 Non-patient / Non-visit Dr. Darian Arceo MD -[facility] Work Phone: Start: 06-17-2024 Non-patient / Non-visit Dr. Darian Arceo MD -[facility] Work Phone: Start: 06-16-2024 ambulatory [facility] Start: 06-16-2024 End: 06-19-2024 Evaluation and management of inpatient Dr. Darian Arceo MD -[facility] Work Phone: Start: 06-14-2024 Non-patient / Non-visit Dr. Darian Arceo MD -[facility] Work Phone: Start: 06-13-2024 Non-patient / Non-visit Dr. Darian Arceo MD -[facility] Work Phone: Start: 06-12-2024 Non-patient / Non-visit Dr. Darian Arceo MD -[facility] Work Phone: Start: 06-11-2024 ambulatory Ronak de See Facili ty:[facility] Start: 06-11-2024 End: 06-14-2024 Evaluation and management of inpatient Dr. Darian Arceo MD -[facility] Work Phone: Start: 05-06-2024 End: 05-10-2024 Telephone encounter Hetal Gallegos MD Work Phone: [facility] Start: 05-03-2024 Emergency department patient visit JAMEY HUNYH Facility:[facility] Start: 05-03-2024 End: 05-03-2024 Emergency department patient visit [facility] Facility:[facility] Start: 10-09-2023 End: 10-09-2023 Emergency department patient visit [facility]-Emergency Department Work Phone: Start: 06-06-2022 End: 06-07-2022 Emergency department patient visit [facility]Emergency Department Start: 05-22-2022 End: 05-22-2022 Emergency department patient visit [facility]Emergency Department Start: 09-09-2021 End: 09-09-2021 Emergency department patient visit [facility] Start: 06-29-2021 Non-patient / Non-visit [facility] Start: 06-29-2021 Non-patient / Non-visit [facility] Start: 06-28-2021 Non-patient / Non-visit [facility] Start: 06-28-2021 End: 06-29-2021 Evaluation and management of inpatient [facility]-Pro[facility] Unit Start: 05-19-2017 Evaluation and management of inpatient UNKNOWN PROVIDER [facility] Start: 04-08-2017 Ambulatory [facility] Start: 04-03-2017 Ambulatory [facility] Facility:[facility] Start: 03-29-2017 [facility] Start: 03-27-2017 [facility] Start: 03-23-2017 [facility] Procedures Date Procedure Procedure Detail Performing Clinician Start: 11-01-2024 Urnls dip stick/tabl et reagent auto microscopy [facility] Start: 09-11-2024 Urnls dip stick/tabl et reagent auto microscopy [facility] Start: 09-11-2024 CT of pelvis with contrast [facility] Start: 09-11-2024 Estimated creatinine clearance [facility] Start: 09-11-2024 [facility] Start: 09-11-2024 Gram stain microscopy [facility] Start: 09-11-2024 End: 09-11-2024 Microbial culture, routine [facility] Start: 09[facility]11-[facility]24 [facility] Start: 07-14-2024 Urnls dip stick/tabl et reagent auto microscopy [facility] Start: 07-14-2024 Estimated creatinine clearance [facility] Start: 07-14-2024 Measurement of renal function [facility] Comment on above: GFR Calc Start: 07-14-2024 [facility] Start: 07-13-2024 SARS-CoV-2, Influenz a & RSV (PCR) [facility] Start: 07-13-2024 CT angiography of ch est with contrast [facility] Start: 07-13-2024 [facility] Start: 07-13-2024 D-dimer assay, quantitative [facility] Comment on above: D-Dimer ELEVATED (>0 .49): Additional studies and clinicalassessments are indicated to conclude diagnosis of:Deep Vein Thrombosis (DVT) or Pulmonary Embolism (PE)CRITICAL VALUE CALLED TO [facility]07/13/24 0417 Graham Osorio.RESULTS READ BACK BY SAME. Start: 07-13-2024 Estimated creatinine clearance [facility] Start: 07-13-2024 Measurement of renal function [facility] Comment on above: GFR Calc Start: 06-16-2024 [facility] Start: 06-16-2024 CT of head without contrast [facility] Start: 06-16-2024 [facility] Start: 06-16-2024 [facility] Start: 06-11-2024 CT of chest without contrast [facility] Start: 06-11-2024 Plain chest X-ray [facility] Start: 06-11-2024 Plain x-ray of pelvi s and lower extremity [facility] Start: 06-11-2024 [facility] Start: 06-11-2024 Legionella pneumophi la antigen assay [facility] Start: 06-11-2024 SARS-CoV-2, Influenz a & RSV (PCR) [facility] Start: 06-11-2024 Streptococcus pneumo niae antigen assay [facility] Start: 06-11-2024 Urine culture [facility] Start: 10-09-2023 Plain chest X-ray Start: 06-06-2022 Plain chest X-ray Start: 05-22-2022 CT of abdomen and pe lvis without contrast Start: 05-22-2022 Plain chest X-ray Start: 06-28-2021 History of placement of stent for coronary artery disease History of coronary artery stent placement Dr. Darian Arceo MD Comment on above: VXU-TIW-Galr LAD w/ 3.0 a 18 mm [facility] MR Stent 06/28/21 Start: 06-28-2021 Plain chest X-ray [facility] H/O: colostomy Colostomy in place [facility] SARS-CoV-2 & FLU Ant igen (Rapid) Plan of Treatment Date Care Activity Detail Author Start: 05-03-2027 Diabetes Screening Diabetes Screenin g [facility] Start: 11-01-2024 [facility] Start: 11-01-2024 [facility] Start: 11-01-2024 Bacteria identified in Urine by Culture Urine Culture [facility] Start: 09-11-2024 End: 09-11-2024 [facility] Start: 09-11-2024 Bacteria identified in Blood by Culture Blood Culture [facility] Start: 09-11-2024 Microbial culture, routine Wound Culture [facility] Start: 09-11-2024 Microscopic observat ion [Identifier] in Unspecified specimen by Gram stain [facility] Start: 09-11-2024 Urine culture Urine Culture [facility] Start: 07-14-2024 [facility] Start: 07-13-2024 [facility] Start: 06-19-2024 Patient discharge [facility] Start: 06-18-2024 Referral to service [facility] Start: 06-18-2024 Wound care [facility] Start: 06-17-2024 Consultation for treatment [facility] Start: 06-16-2024 Following clinical pathway protocol [facility] Start: 06-16-2024 Assessment of risk o f venous thromboembolism [facility] Start: 06-16-2024 Incentive spirometry [facility] Start: 06-16-2024 Insertion of cathete r into peripheral vein [facility] Start: 06-16-2024 Measuring intake and output [facility] Start: 06-16-2024 Providing care accor ding to standard [facility] Start: 06-16-2024 Referral to occupati onal therapist [facility] Start: 06-16-2024 Referral to service [facility] Start: 06-16-2024 Tobacco use cessatio n education [facility] Start: 06-16-2024 [facility] Start: 06-16-2024 Admission procedure [facility] Start: 06-16-2024 Patient referral to dietitian [facility] Start: 06-14-2024 Referral to service [facility] Start: 06-14-2024 Consultation [facility] Start: 06-14-2024 Patient discharge [facility] Start: 06-13-2024 Care planning and pr oblem solving actions [facility] Start: 06-12-2024 Wound care [facility] Start: 06-12-2024 Referral to service [facility] Start: 06-12-2024 Referral to occupati onal therapist [facility] Start: 06-11-2024 Consultation for treatment [facility] Start: 06-11-2024 [facility] Start: 06-11-2024 Following clinical pathway protocol [facility] Start: 06-11-2024 Admission procedure [facility] Start: 06-11-2024 Patient referral to dietitian [facility] Start: 06-03-2024 End: 06-03-2024 Patient encounter procedure 06/03/2024 1:30 PM EST Office Visit [facility] [address] [place] [address] Hetal Gallegos MD [address] [place] [address] er f/u R hip/pt will call to get referral [facility] Comment on above: er f/u R hip/pt will call to get referral Start: 01-28-2024 Covid-19 Vaccine ( season) Covid-19 Vaccine ( season) [facility] Start: 01-28-2024 Influenza vaccination Influenz a Vaccine (#1) [facility] Start: 10-09-2023 [facility] Start: 10-09-2023 [facility] Start: 06-06-2022 [facility] Work Phone: Start: 05-22-2022 [facility] Work Phone: Start: 2021 RSV Vaccine (1 - Ris k 60-74 years 1-dose series) RSV Vaccine (1 - Risk 60-74 years 1-dose series) [facility] Start: 02-29-2016 Prostate specific an tigen measurement Prostate Cancer Screening Discussion [facility] Start: 2011 Shingrix Vaccine (1 of 2) Blanco grix Vaccine (1 of 2) [facility] Start: 2006 Screening for malign ant neoplasm of colon [facility] Start: 02-29-1996 Lipid panel Lipid Screening [facility] Start: 02-29-1980 Urine microalbumin profile DTaP,Tdap,Td Vaccine (1 - Tdap) [facility] Start: 1979 Anxiety Screening Anxiety Screening [facility] Start: 1979 Depression Screening Depression Scre ening [facility] Start: 1979 Hepatitis C screening Hepatitis C [facility] Start: 1979 HIV screening HIV Screening [facility] Bacteria identified in Urine by Culture Urine Culture [facility] Work Phone: Patient Education [facility] Work Phone: Patient referral [facility] Work Phone: Urine culture [facility] Immunizations Immunization Date Immunization Notes Care Provider Fa cility 03-30-2023 influenza virus vaccine, unspecified formulation Hetal Gallegos MD Work Phone: [facility] 03-03-2021 Covid (Pfizer) [facility] 03-03-2021 Influenza virus vaccine [facility] 07-24-2020 Covid (Pfizer) [facility] 07-07-2020 Covid (Pfizer) [facility] 02-26-2018 Influenza virus vaccine [facility] 02-27-2017 Influenza virus vaccine [facility] 02-23-2016 Influenza virus vaccine [facility] 03-17-2015 influenza, injectabl e, quadrivalent, preservative free [facility] 03-17-2015 influenza, seasonal, injectable [facility] Work Phone: 04-29-2013 Influenza virus vaccine [facility] 2012 Pneumococcal Vaccine [facility] Work Phone: 2012 pneumococcal vaccine , unspecified formulation [facility] Payers Date Payer Category Payer Medicare [id number] 2024 Self-pay [id number] 2024 Unknown [id number] 2016 Medicare [id number] 2015 Unknown [id number] Medicare [id number] Private Health Insurance [facility] [id number] Unknown Unknown [id number] Unknown [id number] [id number] Unknown [id number] [id number] [id number] Unknown [id number] [id number] [id number] Unknown [id number] 2.16.8 [id number] Unknown [id number] 2.16.8 40.1.358395.3.579.2.462 Unknown [id number] 2.16.8 40.1.972930.3.579.2.462 Unknown [id number] 2.16.8 40.1.494426.3.579.2.462 Unknown [id number] 2.16.8 40.1.420682.3.579.2.462 Unknown [id number] 2.16.8 40.1.143551.3.579.2.462 Unknown [id number] 2.16.8 40.1.544651.3.579.2.462 Unknown [id number] 2.16.8 40.1.633773.3.579.2.462 Unknown [id number] 2.16.8 40.1.580235.3.579.2.462 Unknown [id number] 2.16.8 40.1.633816.3.579.2.462 Unknown [id number] 2.16.8 40.1.266295.3.579.2.462 Unknown [id number] 2.16.8 40.1.850245.3.579.2.462 Social History Date Type Detail Facility Start: 09-09-2021 End: 10-09-2023 Tobacco smoking status NHIS Unknown if ever smoked [facility] Start: 06-27-2021 Heavy [facility] Start: 01-19-2019 None [facility] Start: 01-19-2019 Spouse/ Signif icant Other [facility] Start: 06-27-2021 Cigarettes [facility] Start: 1960 Sex Assigned At Male W [facility] Start: 01-21-2016 Tobacco smoking stat us NHIS Smokes tobacco daily [facility] Start: 05-03-2024 Alcoholic beverage intake Current non-drinker of alcohol (finding) [facility] Start: 05-03-2024 End: 05-04-2024 History of Social function [facility] Start: 05-03-2024 End: 05-04-2024 Tobacco use panel [facility] National Score (1-100), lower number is lower risk 80 [facility] Start: 1960 Sex assigned at Not on file C [facility] Start: 09-11-2024 End: 11-01-2024 Tobacco smoking status NHIS Ex-smoker (finding) [facility] Start: 09-12-2024 Sex Male (finding) [facility] Medical Equipment Procedure Code Equipment Code Equipment Origin al Text Equipment Identifier Dates ([id number]) Drug-eluting coronary artery stent, bioabsorbable-polyme r-coated ()[id number] FDA Start: 06-29-2021 Goals Date Patient Goal Desired Activity /State Functional Status Date Assessment Result Facility 06-19-2024 Functional status Bedrest [facility] Work Phone: 06-14-2024 [facility] Work Phone: 06-29-2021 Functional status Activity Abili ty With Assist of 2[facility] Work Phone: Mental Status Date Assessment Result Facility 07-14-2024 Cognitive function Level Of Cons ciousness Awake;Alert;Appropriate;Follow s Commands [facility] Work Phone: 02-15-2025 Cognitive function Voice/Name [facility] Work Phone: 06-19-2024 Cognitive function Voice/Name [facility] Work Phone: 06-14-2024 Cognitive function Voice/Name [facility] Work Phone: 10-09-2023 Cognitive function Level Of Cons ciousness Awake;Alert;Appropriate [facility] Work Phone: 06-06-2022 Cognitive function Awake;Alert;Disoriente d [facility] Work Phone: 06-29-2021 Cognitive function Voice/Name [facility] Work Phone: 06-28-2021 Cognitive function Patient Orien tation Person;Place;Time [facility] Work Phone: Clinical Notes 05-06-2024 to 09-12-2024 Note Date & Type Note Facility 09-12-2024 Discharge summary [facility] 09-11-2024 Radiology Diagnostic study note [facility] Imaging Services [address] [place], [place] [id number] Pelvis WITH IV Contrast MR#: [id number] Acct: [id number] Name: BAUTISTA RUFFIN Rep #: [id number] : 1960 M 64 From: Maxwell Figueroa MD PCP: [facility] Status: REG ER Study:Pelvis WITH IV Contrast Date of Exam: 09/11/24 Exam# [id number] Ordering Dr: Alex Ellis TECHNOLOGY PROJECT MANAGER-C PROCEDURE: PELVIS WITH IV CONTRAST REASON FOR [...] ischium bilaterally but no abscess. Reading Location: [id number] CC: MARCOS Sheppard; [facility] ~ Straight Line Edger: Signed [facility] 09-11-2024 Discharge summary Note Date/Time September 12, 2024 11:45am [facility] Medical Records Department [address] [place] [address] Emergency Department Summary 09/11/24 MR#: [id number] Acct: [id number] Name: BAUTISTA RUFFIN Rep #:[id number] : 1960 64 From: Alex RODRÍGUEZ [facility]CP: [facility] Status:REG ER Location: ED ADDENDUM by Dr. Alma Rosa Pedroza DO on 09/12/24 at 1144 Care of patient turned over to wa awaiting transfer to tertiary care center for definitive care at [facility]. Patient remained hemodynamically stable. [facility] will use there transfer team to transfer patient I am told at 1300 hrs. 09/12/24 1144<Electronically signed by Alma Rosa Pedroza DO> Cosigner Signature (if applicable): 09/12/24 0012 <Electronically signed by Adwoa NARVAEZ> cc: [facility] ~* Signed HPI <MARCOS Holliday - Last Filed: 09/11/24 21:48> History of Present Illness Chief Complaint: Cellulitis Narrative Narrative: Patient is a 64-year-old male that is a paraplegic, this is secondary to transverse myelitis, patient also has history of wounds, colostomy, catheter, anxiety [facility]. Patient does live at home, patient's as well as some home care nursing does take care of him. The home care nurses noticed that there was a foul-smelling odor from multiple wounds on his sacrum, buttocks area, they referred him to the [facility] apartment. Patient denies any fever or chills. Patient does not state he has any pain however he has no feeling. [facility] <MARCOS Holliday - Last Filed: 09/11/24 21:48> [facility] Medical History Sacral decubitus ulcer, stage III Atherosclerotic heart disease of [place] coronary artery without angina pectoris Depression Chronic [...] 96 Pulse Ox 95 Oxygen Delivery Method [facility] <MARCOS Holliday - Last Filed: 09/11/24 21:48> [facility] Lab Data Labs: Laboratory Results - last 24 hr 09/11/24 09/11/24 16:00 16:56 WBC 11.6 H RBC 5.05 Hgb 13.0 Hct 40.9 MCV 81.0 MCH 25.7 L MCHC 31.8 L RDW Std Deviation 51.1 H RDW Coeff of Bhanu 17.6 H Plt Count 371 MPV 8.6 Immature Gran % (Auto) 0.400 Neut % (Auto) 66.2 Lymph % (Auto) 20.8 [place] % (Auto) 8.6 Eos % (Auto) 3.6 [...] Clarity Clear Urine pH 6.0 Ur Specific [place] 1.015 Urine Protein 15 H Urine Glucose [...] ischium bilaterally but no abscess. Reading Location: [facility] Treatment and Re-Evaluation :: Differential diagnosis [...] want to try to go to the [facility]. We will try to see if they have a bed. If not the patient will be admitted here. Patient will be admitted to [facility]. <Dr. Adan Bell, DO - Last Filed: [...] myself. Patient requested to go to the [facility]. Patient was accepted there. Patient was to be transferred to the emergency department there. However, ambulance service stated that the patient's insurance would notcover their ambulance transfer [facility] [...] % (Auto) 66.2 Lymph % (Auto) 20.8 [place] % (Auto) 8.6 Eos % (Auto) 3.6 [...] Clarity Clear Urine pH 6.0 Ur Specific [place] 1.015 Urine Protein 15 H Urine Glucose [...] ischium bilaterally but no abscess. Reading Location: [facility] Discharge Plan Triage Chief Complaint: Cellulitis [...] [facility] [[facility] - Print Language: Slovak Disposition Disposition: Acute Care Hospital Discharge Location: [facility] [place] [facility] What to do if you have Problems For any increased pain, shortness of breath, bleeding, nausea or vomiting, chestpain, or any unexpected problems, contact your Primary Care Provider. Call [facility] ([phone]) or report to the closest Emergency Room. Call 911 if necessary. 09/11/[id number] <Electronically signed by Alex RODRÍGUEZ> Cosigner Signature (if applicable): 09/12/24 0012 <Electronically signed by Adan Bell DO> CC: [facility] ~ Signed [facility] Work Phone: 1(208) 195-152001-22-2025 [facility] Medical Records Department [address] [place] [address] Discharge Summary 06/19/24 1145 MR#: [id number] Acct: [id number] Name: BAUTISTA RUFFIN Rep #: [id number] : 1960 64 From: Darian Arceo MD PCP: [facility] Status:ADM IN Location: [place] [id number] Providers Date of Admission: 06/16/24 Date of Discharge: 06/19/24 Primary Care Physician: [facility] Consultations 06/17/24 02:09 Consult: Onc/Wound/grinder brake lining Routine Comment: Reason for Consult:: large buttock [...] Patient has midline. Discussed with the case worker. Might need to go to [facility] 06/18: [...] in his femur: Patient was worked in [facility] and was not felt to be surgical candidate. Recommend to follow-up with [facility]. 4. History of CAD; s/p proximal [...] PO DAILY Check w (more content not included)...[facility]01-17-2025 [facility] Medical Records Department [address] [place] [address] Discharge Summary 06/14/24 1552 MR#: [id number] Acct: [id number] Name: BAUTISTA RUFFIN Rep #: [id number] : 1960 64 From: Darian Arceo MD PCP: [facility] Status:ADM IN Location: [facility] [id number] Providers Date of Admission: 06/11/24 Date of Discharge: 06/14/24 Primary Care Physician: [facility] Consultations 06/11/24 23:24 Consult: Onc/Wound/grinder brake lining Routine Comment: Reason for Consult:: wound 06/14/24 [...] IV antibiotic arranged. Discussed with the case worker. Patient is discharged with home health. 2. [...] in his femur: Patient was worked in [facility] and was not felt to be surgical candidate. Recommend to follow-up with [facility]. 7. History of CAD; s/p proximal [...] case of possible myotoxicity contributin (morecontent not included)...[facility] 06-11-2024 Evaluation note* Diagnosis Onset Date Resolution [...] ulcer, stage III inactive June 16 7:56pm [facility] Work Phone: 1(870) 448-687312-13-2024 Telephone encounter Note* Telephone Encounter - Stacy Gongora - 05/10/2024 10:30 AM EST I spoke with the patient and scheduled an appointment. Stacy Gongora [facility]12-13-2024 Miscellaneous Notes* Telephone Encounter - Stacy Gongora [...] in 3 weeks [facility] Telephone encounter Note * Telephone Encounter - Stacy Gongora - 05/07/2024 9:07 AM EST I called the patient to schedule an appointment. I left another voice mail with our office number to call back. Of note he has 2 numbers in the chart. The 601# does not work. Stacy Gongora [facility]12-09-2024 Telephone encounter Note* Telephone Encounter - Stacy Gongora - 05/06/2024 8:17 AM EST I called the patient to schedule an appointment with [facility] in 3 weeks. I left a voice mail with our office number to call back. Stacy Gongora [facility]12-09-2024 Telephone encounter Note* Telephone Encounter - Satcy Gongora - 05/06/2024 8:17 AM EST ----- Message from Hetal Gallegos MD sent at 05/04/2024 12:05 PM EST ----- [facility] Onset Date Resolution Status Non-ST elevated myocardial infarction (non-STEMI) resolved [facility] Work Phone: Evaluation noteNo assessment information available [facility] Work Phone: Hospital Discharge instructions Additional Instructions [...] if any worsening symptoms. Take medications as prescribed.[facility] Work Phone: Hospital Discharge instructions Additional Instructions Your suprapubic cath was exchanged 18 Cuban placed with urine output. Urine culture pending. Taking finish antibiotic as scribed. Follow-up with your urology team.[facility] Work Phone: Reason for referral (narrative)No reason for referral information [facility] Work Phone: Summary Purpose Family History No Family History Records Found Relationship Condition Age at Onset Recorded Date/T dianelys father Cerebrovascular accident (CVA) Unknown Cardiac disease Unknown Myocardial infarction Unknown Advance Directives No Advanced Directives Records Found Advance Directive Response Recorded Date/ Time Name of Medical Power of Senior Editor mother and sis ter June 28, 2021 5:01am Advance Directives No June 29, 2016 2:07am Living Will No September 09, 2021 3:30pm Power of Senior Editor No September 09 3:30pm Advance Directive Response Recorded Date/ Time Advance Directives No June 29, 2016 1:07am Living Will Yes May 22, 2 022 4:43pm Power of Senior Editor Yes May 22, 2022 4:43pm Name of Medical Power of Senior Editor milka evens May 22, 2022 4:43pm Advance Directive Response Recorded Date/ Time Name of Medical Power of Senior Editor milka evens May 22, 2022 4:43pm Advance Directives No June 29, 2016 1:07am Living Will No June 06 4:21pm Power of Senior Editor No June 06 4:21pm Advance Directive Response Recorded Date/ Time Advance Directives No June 29, 2016 2:07am Living Will Yes October 09, 2023 1 :17am Power of Senior Editor Yes October 09, 2023 1:17am Name of Medical Power of Senior Editor Gloria ex wif e October 09, 2023 1:17am Advance Directive Response Recorded Date/ Time Living Will No June 12 12:19am Do you have a Healthcare Pow er of Senior Editor? No June 12, 2024 12:19am Living Will Yes July 14 025 8:10am Do you have a Healthcare Pow er of Senior Editor? Yes July 14, 2024 8:10am Name of Medical Power of Senior Editor ANTHONY PLANT July 14, 2024 8:10am Living Will Yes September 11, 2024 3:41pm Do you have a Healthcare Pow er of Senior Editor? Yes September 11, 2024 3:41pm Name of Medical Power of Senior Editor Marisela September 11, 2024 3:41pm Living Will Yes June 16 10:03pm Do you have a Healthcare Pow er of Senior Editor? Yes June 16, 2024 10:03pm Name of Medical Power of Senior Editor yudith plant w nusrat June 16, 2024 10:03pm Living Will No July 13 3:32am Do you have a Healthcare Pow er of Senior Editor? No July 13, 2024 3:32am Advance Directives No June 29, 2016 2:07am Advance Directive Response Recorded Date/ Time Living Will Yes July 14 8:10am Do you have a Healthcare Power of Senior Editor? Yes July 14, 2024 8:10am Name of Medical Power of Senior Editor ANTHONY PLANT July 14, 2024 8:10am Living Will Yes September 11, 2024 3:41pm Do you have a Healthcare Power of Senior Editor? Yes September 11, 2024 3:41pm Name of Medical Power of Senior Editor Marisela September 11, 2024 3:41pm Do you have a Healthcare Power of Senior Editor? Yes November 01, 2024 2:11pm Living Will No July 13 3:32am Do you have a Healthcare Power of Senior Editor? No July 13, 2024 3:32am Advance Directives [...] section and content) DATE CREATED AUTHOR 11/20/2017 [facility] DATE CREATED AUTHOR AUTHOR'S ORGANIZ ATION 11/21/2017 [facility] [place] DATE CREATED AUTHOR AUTHOR'S ORGANIZ ATION 05/11/2024 [facility] DATE CREATED AUTHOR AUTHOR'S ORGANIZ ATION 11/03/2024 [facility] Goals (unrecognized section and content) Goals may be documented in a n alternate sectionGoals may be documented in an alternate sectionGoals may be documented in an alternate sectionGoals may be documented in an alternate sectionGoals may be documented in an alternate section Care Teams (unrecognized sec tion and content) Team Status: Active Member Role Status Dates [facility] Family Provider Active [facility] Primary Care Provider Active Team Status: Inactive Member Role Status Dates [facility] Primary Care Provider Active Dr. Adan Bell DO Emergency Provider Active Elevated Motorman Relationship Specialty Start Date End Date Jamey Huynh MD [address] [place] [address] PCP - General Family Medicine 01/02/12 Team Status: Active Member Role Status Dates [facility] Primary Care Provider Active Team Status: Inactive Member Role Status Dates [facility] Primary Care Provider Active Start: June [...] Team Status: Active Member Role Status Dates [facility] Primary Care Provider Active Start: June [...] Team Status: Active Member Role Status Dates [facility] Primary Care Provider Active Start: June [...] Team Status: Active Member Role Status Dates [facility] Primary Care Provider Active Start: June [...] Team Status: Inactive Member Role Status Dates [facility] Primary Care Provider Active Start: June [...] Team Status: Active Member Role Status Dates [facility] Primary Care Provider Active Start: June [...] Team Status: Active Member Role Status Dates [facility] Primary Care Provider Active Start: June [...] Team Status: Active Member Role Status Dates [facility] Primary Care Provider Active Start: June [...] Team Status: Inactive Member Role Status Dates [facility] Primary Care Provider Active Start: July 13, 2024 End: July 13, 2024 Dr. Richie Borden DO Attending Provider Active Start: July 13, 2024 End: July 13, 2024 Dr. Richie Borden DO Emergency Provider Active Start: July 13, 2024 End: July 13, 2024 Team Status: Inactive Member Role Status Dates [facility] Primary Care Provider Active Start: July 14, 2024 End: July 14, 2024 Dr. Rico Moore DO Attending Provider Active Start: July 14, 2024 End: July 14, 2024 Dr. Rico Moore DO Emergency Provider Active Start: July 14, 2024 End: July 14, 2024 Team Status: Inactive Member Role Status Dates [facility] Primary Care Provider Active Start: September 11, 2024 End: September 12, 2024 Dr. Adan Bell DO Emergency Provider Active Start: September 11, 2024 End: September 12, 2024 Team Status: Inactive Member Role Status Dates [facility] Primary Care Provider Active Start: September 11, 2024 End: September 12, 2024 Dr. Adan Bell DO Attending Provider Active Start: September 11, 2024 End: September 12, 2024 Dr. Adan Bell DO Emergency Provider Active Start: September 11, 2024 End: September 12, 2024 Team Status: Inactive Member Role Status Dates [facility] Primary Care Provider Active Start: November [...] or prosecute any alcohol or drug abuse patient.[facility] FOR RECORDS PERTAINING TO PATIENTS WHO [...] BE BASED ON THE PRIMARY CLINICAL RECORDS. [employer] provides no warranty or guarantee of the accuracy or completeness of information in this document.
[2024-11-03] MEDS: Piperacil/Tazobactam 4.5 GM in 0.9% Normal Saline (100mL MB+) 100 ML IV (16:36)
--- NOTE | 2024-11-03 16:42 | PCA ---
CALLED [facility] AND FAXED THE INFO OVER TO THEM@ [email or web address] THE FAX WAS RECEIVED.
[2024-11-03 16:57] LABS: Troponin T High Sens 4 HR 26 ng/L (<=22)
[2024-11-03] MEDS: Lactated Ringers 1,000 ML 100 ML IV (18:38)
[2024-11-03] MEDS: Morphine 2 MG/ML Syringe IV (20:16)
[2024-11-03] MEDS: Buprenorphine 20 mcg Patch (WEEKLY) 1 PATCH TD (21:36)
[2024-11-03] MEDS: Cefepime HCl 2 GM in 0.9% Normal Saline (100mL MB+) 100 ML IV (21:37)
[2024-11-03] MEDS: Zinc Sulfate 50 mg zinc (220 mg) ORAL capsule PO (21:38)
[2024-11-03] MEDS: Docusate Sodium 100 MG Capsule PO (21:38)
[2024-11-03] MEDS: Nortriptyline 25 MG Capsule 100 MG PO (21:38)
[2024-11-03] MEDS: Baclofen 10 MG Tablet 20 MG PO (21:38)
[2024-11-03] MEDS: Atorvastatin Calcium 40 MG Tablet PO (21:38)
[2024-11-03] MEDS: Ibuprofen 600 MG Tablet PO (21:41)
[2024-11-03] MEDS: Pregabalin 75 MG Capsule 150 MG PO (21:41)
[2024-11-03] MEDS: oxyCODONE 5 MG Tablet PO (23:24)
[2024-11-04 03:22] VITALS: BMI 25.0
[2024-11-04 03:59] VITALS: BP 98/59; PULSE 82; RESP 18; TEMP 36.5; O2SAT 98
[2024-11-04] MEDS: Lactated Ringers 1,000 ML 100 ML IV (04:08)
[2024-11-04] MEDS: Enoxaparin 40 MG/0.4 ML Syringe SC (06:27)
[2024-11-04] MEDS: oxyCODONE 5 MG Tablet PO ×3 (06:28→17:23)
[2024-11-04] MEDS: Cefepime HCl 2 GM in 0.9% Normal Saline (100mL MB+) 100 ML IV ×3 (06:28→22:23)
[2024-11-04] MEDS: Pregabalin 75 MG Capsule 150 MG PO ×3 (06:28→22:24)
[2024-11-04] MEDS: Zinc Sulfate 50 mg zinc (220 mg) ORAL capsule PO ×3 (06:28→22:24)
[2024-11-04 06:31] LABS: Absolute Lymphocyte Count 1.95 X10^3/uL (0.83-4.51); Absolute Neutrophil Count 4.6 X10^3/uL (2.0-7.7); Basophil# 0.03 X10^3/uL; Basophil% 0.4 % (0-1); Eosinophils% 2.6 % (0-5); Hematocrit 34.3 % (40-54); Hemoglobin 10.9 g/dL (13.0-16.5); Lymphocyte # 1.95 X10^3/ul (0.83-4.51); Lymphocyte % 25.3 % (19-41); Mean Corp Hgb Conc 31.8 g/dL (32-36); Mean Corpuscular Hgb 24.9 pg (27.0-32.0); Mean Corpuscular Volume 78.3 fL (80-94); Monocyte% 11.7 % (0-10); NRBC Flagged by Analyzer 0 % (0-5); Neutrophil # 4.61 X10^3/uL (2.7-7.7); Neutrophil % 59.7 % (47-70); Platelet Count 297 K/mm3 (150-450); RBC Distribution Width SD 51.3 fl (35.1-43.9); Red Blood Count 4.38 M/mm3 (4.6-6.2); White Blood Count 7.7 K/mm3 (4.4-11.0)
[2024-11-04 07:07] LABS: Magnesium 1.9 mg/dL (1.5-2.2); Phosphorus 3.1 mg/dL (2.7-4.5)
[2024-11-04 07:13] VITALS: O2SAT 95
[2024-11-04 07:25] LABS: ALB/GLOB Ratio 0.9 RATIO (0.9-2.4); AST(SGOT) 14 U/L (<=37); Alanine Aminotransfer ALT/SGPT 6 U/L (<=46); Albumin, Serum 2.7 g/dL (3.4-4.8); Alkaline Phosphatase 108 U/L (40-129); Anion Gap 11 (5-15); BUN 15 mg/dL (4-19); BUN/Creat Ratio 22.2 RATIO (10-20); Calcium,Total 8.4 mg/dL (7.6-11.0); Carbon Dioxide 23.4 mmol/L (21.0-32.0); Chloride 106 mmol/L (98-108); Creatinine, Serum 0.68 mg/dL (0.70-1.20); EST Glomerular Filtration Rate 104 (>60); Estimated Creatinine Clearance 111.19 ml/min (50-250); Globulin 3.1 g/dL (2.2-4.2); Glucose 139 mg/dL (70-99); Potassium 3.5 mmol/L (3.3-5.1); Protein, Total 5.9 g/dL (5.9-8.4); Sodium Level 140 mmol/L (133-145); Total Bilirubin < 0.15 mg/dL (0.00-1.30)
[2024-11-04 08:15] VITALS: BP 106/78; PULSE 78; RESP 16; TEMP 36.6; O2SAT 95
[2024-11-04] MEDS: Carvedilol 6.25 MG Tablet PO ×2 (08:22→17:24)
[2024-11-04] MEDS: Ascorbic Acid 500 MG Tablet 1000 MG PO (08:22)
[2024-11-04] MEDS: Cholecalciferol (VIT D3) 25 MCG TABLET (1,000 UNITS) 50 MCG PO (08:22)
[2024-11-04] MEDS: Docusate Sodium 100 MG Capsule PO ×2 (08:22→22:24)
[2024-11-04] MEDS: Venlafaxine HCl 75 MG Tablet 150 MG PO (08:22)
[2024-11-04] MEDS: Baclofen 10 MG Tablet 20 MG PO ×4 (08:22→22:24)
[2024-11-04] MEDS: Multivitamins,Therapeutic Tablet 1 TABLET PO (08:23)
[2024-11-04] MEDS: Aspirin E.C. 81 MG Tablet PO (08:23)
[2024-11-04] MEDS: Loratadine 10 MG Tablet PO (08:23)
[2024-11-04] MEDS: Lidocaine 5% Patch 2 PATCH TOPICAL (08:24)
[2024-11-04] MEDS: Senna/Docusate Sodium 1 Tablet 2 TABLET PO (08:38)
--- NOTE | 2024-11-04 10:46 | CASEMGMT ---
Addendum entered by Maureen Hull 11/04/24 17:15: 1640: Notified that Maryana would like this ABISAI MENDES to call her. Call placed to Maryana. She apologized about how she spoke to ABISAI MENDES earlier, stating she was going through personal things and was irritable, stating, I took it out on you. She states she has thought through things, stating she knows pt really wants to go home, and she is now willing to do the administration of IV atb's @ home. She again states that she does have an appt tomorrow out of town and would not be available until after 4 PM tomorrow. She states she would be willing to do IV education w/HHC after that tomorrow, if they are available. She states if that does not work, she would be home Wed until 1 PM and could do it any time in the morning up until 1 PM on Mon, stating she has to leave at that time to take her grand-dtr to a dentist appt. Message left for ABISAI MENDES tomorrow in [facility] to f/u on the above. Addendum entered by Maureen Hull 11/04/24 16:03: Per Syeda @ [facility], they are able to deliver IV atb's/supplies to pt's home tonight. ABISAI MENDES to room. Pt updated on dxe-gd-ovehoa cost as stated below, that atb/supplies can be delivered tomorrow, and HHC can do LILY tomorrow. Pt states Maryana will be coming in around 4:30 PM today. Made aware this ABIASI MENDES would be gone for the day by then. He gave permission for ABISAI MENDES to call Maryana @ [facility] to give her the details for HHC LILY time. Call placed to [facility] and she was notified of plan for pt to dc home tomorrow w/LILY HHC and IV atb x 5 days. She became upset and inquired why pt cannot stay for the entire 5 days. Made aware there is not a medical necessity for acute hospital stay and IV atb's can be done as an OP. She states she has done them before @ home, but states it is Very scary and that she does not understand why pt can't just stay in the hospital. She states, I'm going to call his insurance to find out about this. Maryana states she has an appt out of town tomorrow and she would not be available until after 4 PM to meet w/[facility] tomorrow anyway. ABISAI MENDES made her aware of option of SNF. She states, He's not going to a assisted. He's been in one before and it was a bad experience. She then stated she'll have to think about it and decide in the next couple of days. Made aware decision needs to be made sooner, as pt will be medically ready to discharge tomorrow once PICC is placed. She states she will call and talk to pt about this. ABISAI MENDES to room a little later. Pt still on the phone w/Maryana. Pt had questions for ABISAI MENDES & questions answered. Pt told Maryana that he wants to go home and that he wants her to do this, stating she has done it before and she knows how to do it. Maryana states she doesn't feel comfortable. ABISAI MENDES did inform pt of possible option for TCU, but explained a referral would have to be made and would need insurance approval. He again stated he would like to go home and he and Maryana began arguing. Maryana hung up on pt. ABISAI MENDES had discussion w/pt and further questions answered. Pt states to start a referral w/[facility] and he declines wanting list of other SNF options. He states he still really prefers to go home but states, I guess I'm screwed. He states, She did it the last time. She knows how to do it, she doesn't want to. She just needs to take on some responsibility. I need to remind her she is living in my house. He stated he will have further discussion w/Maryana ronald is aware if she is agreeable to doing IV admin @ home, then he will let someone know to cancel referral to TCU. Call placed to Loren @ [facility] and also to Syeda @ [facility]. They were made aware of above and to place referrals on hold for now. Dr Schneider made aware of above as well. DC Plan: TBD. [facility] vs Home w/[facility] for IV atb admin. Addendum entered by Maureen Hull 11/04/24 14:47: Correction: Current med list was not faxed at this time. Addendum entered by Maureen Hull 11/04/24 14:46: Script for OP IV cefepime 2 gm IV Q 8 hrs x [address] Jenkins. Script sent to [facility] via [employer]. Call placed to Loren @ [facility]. She was made aware of above OP IV order. She states she they can do SOC tomorrow as early as 0800. They can also do SOC around 1200/1230 tomorrow. IV atb script faxed to [facility] @ [phone] along w/ H/P & pt's current med list. PICC has been ordered. Call placed to Syeda @ [facility]. She has received the referral. She states pt will be responsible for 20 % co-insurance, in addition to $94.66 for Part D Drug co-pay. Original Note: ABISAI MENDES assessment: Strata: [address] Schneider, pt will need to dc home on IV atb's. ABISAI MENDES to room. Introduced self and role. Pt resting in bed. Pt lives w/his ex-, Maryana. [facility] for 4 hrs/day. Natalie LINDSAY, made aware. His ex- assists him when they are not there. He would like to [facility] w[facility]the [facility] [place]. He states he was going to [facility] but is switching to [facility]. He would like to get any new meds from [facility] @ [place]. DME: Pt states, as far as he knows, he has all DME needed. Discussed discharge planning. He is aware he will need IV atb's @ [place]. Pt states he wishes to dc home w/his ex-, Maryana. She has done home IV atb's in the past and would be willing and able to do them again. He states he currently has SN from [facility] (ph: [phone]) come [facility] for wound care, colostomy care, and they change his F/C monthly. He would like to resume with them @ [place] and have them follow for IV admin & declines wanting list of other HHC agencies. Pt would also like [facility] for infusion co, stating they did well in the past and he would like them again. Transportation: Pt states he will need transport home via [facility]. Pt denies having other discharge needs or concerns at this time. Made aware to ask for CM if any further needs arise. Call placed to Loren @ [facility]. She was made aware pt has been admitted to [facility] and will need IV atb's @ dc. She states they are willing to accept pt for LILY and can do IV atb's. She states she is familiar w/pt and aware pt's ex-, Maryana, will be administering the IV atb's. Loren aware pt may be ready for dc today or tomorrow, pending midline or PICC insertion and OP IV atb's being set up. Call placed to [facility] & initiated referral. Asked for insurance benefits to be ran. Plan: Home w/[facility]HC through [facility], for SN/IV atb's and [facility] for infusion co. Home w/LILY aides thru [facility]. [facility] transport pt via stretcher @ [place]. Wojciech POOLE RN, CM
--- NOTE | 2024-11-04 13:24 | PN.HOSP_ITS ---
Reason for Visit Reason for Visit: Diagnoses Pseudomonas (aeruginosa) (mallei) (pseudomallei) as the cause of diseases classified elsewhere (11/03/24) Urinary tract infection, site not specified (11/03/24) Nausea (11/03/24) Other malaise (11/03/24) Other specified health status (11/03/24) Other cystostomy status (11/03/24) Subjective Subjective Feeling ok. No new events overnight. Objective Data Objective Data Vital Signs: Vital Signs Temp Pulse Resp BP Pulse Ox O2 Del Method 36.6 C 78 16 106/78 95 Room Air 11/04/24 08:15 11/04/24 08:15 11/04/24 08:15 11/04/24 08:15 11/04/24 08:15 11/04/24 08:15 Oxygen Delivery Method Room Air Weight: 76.7 kg Body Mass Index (BMI) 25.0 Intake & Output: Intake and Output for Last 24 Hours 11/02/24 11/03/24 11/04/24 23:59 23:59 23:59 Intake Total 1187.5 / 1187.5 1650 / 1650 Output Total 800 / 800 Balance 1187.5 / 1187.5 850 / 850 Lab / Micro Data 11/04/24 06:12 11/04/24 06:12 Labs: Laboratory Results - last 24 hr 11/03/24 14:30: Troponin T Hi Sens 2 Hr 26 H 11/03/24 16:28: Troponin T Hi Sens 4Hr 26 H 11/04/24 06:12: WBC 7.7, RBC 4.38 L, Hgb 10.9 L, Hct 34.3 L, MCV 78.3 L, MCH 24.9 L, MCHC 31.8 L, RDW Std Deviation 51.3 H, RDW Coeff of Bhanu 18.0 H, Plt Count 297, MPV 9.0, Immature Gran % (Auto) 0.300, Neut % (Auto) 59.7, Lymph % (Auto) 25.3, Kern % (Auto) 11.7 H, Eos % (Auto) 2.6, Baso % (Auto) 0.4, Absolute Neuts (auto) 4.6, Absolute Lymphs (auto) 1.95, Nucleated RBC % 0, Sodium 140, Potassium 3.5, Chloride 106, Carbon Dioxide 23.4, Anion Gap 11, BUN 15, C reatinine 0.68 L, Estim Creat Clear Calc 111.19, Est GFR (MDRD) Non-Af 104, B UN/Creatinine Ratio 22.2 H, Glucose 139 H, Calcium 8.4, Phosphorus 3.1, Magnesium 1.9, Total Bilirubin < 0.15, AST 14, ALT 6, Alkaline Phosphatase 108, Total Protein 5.9, Albumin 2.7 L, Globulin 3.1, Albumin/Globulin Ratio 0.9 Radiography Diagnostic Testing: Radiology Impression Abdomen/Pelvis CT 11/03/24 12:26 IMPRESSION: Left lung base pneumonia. No acute process identified in the abdomen or pelvis. Other findings as above. OVERALL FINAL ASSESSMENT: . LI-RADS is not meant to be used in patients <18 years or patients with cirrhosis due to congenital hepatic fibrosis or due to vascular disorders, because these patients have a lower chance of developing HCC. Reading Location: [facility] Chest X-Ray 11/03/24 14:35 IMPRESSION: No acute process detected. Reading [facility] Physical Exam Const alert and no apparent distress HEENT head/scalp atraumatic and moist oral mucous membranes Resp normal respiratory effort and no retractions Neuro Sensorium / Orientation: awake and alert Speech: speech normal Psych affect normal Assessment & Plan Assessment/Plan (1) Acute UTI: PLAN: Pseudomonas CAUTI. Catheter changed in ED on 11/01 Fluoroquinolone resistant. On cefepime ID to assist with long-term abx. Will order PICC. PLAN: Plan Debility: Chronic conditions: * sacral ulcerations Vitamin C and Zn. Follow up with Dr. Masterson. * CAD: stable. 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 Complicates care and recovery. VTE prophylaixs:LMWH Charges/Coding Visit Charges Inpatient E&M: 39200 Subs Hosp L2
[2024-11-04 14:07] VITALS: BP 142/85; PULSE 72; RESP 17; TEMP 36.3; O2SAT 95
--- NOTE | 2024-11-04 15:08 | PCM.CONS.GEN ---
Assessment & Plan Assessment/Plan (1) Acute UTI: PLAN: Picc planned. Ucx with PsA. Will write for 5 more days cefepime. Feeling better. will follow, thank you, d/w porter sample case (2) Chronic suprapubic catheter: (3) Paraplegia: HPI Consult Data Date of Consult: 11/04/24 HPI Narrative Reason for Consultation: uti HPI Narrative: KALEN GAVIN, is a 64 M with paraplegia, suprapubic catheter, presented with 2-3 days fatigue, not feeling well, nausea. No fever, no abd pain. Came to ED, admitted on cefepime, feeling better today. Full ROS performed and neg except as noted above. [facility] Medical History Sacral decubitus ulcer, stage III Atherosclerotic heart disease of [place] coronary artery without angina pectoris Depression Chronic indwelling Lima catheter Heavy alcohol use Anxiety and depression Acute paralytic poliomyelitis, wild virus, indigenous Osteomyelitis of right femur Transverse myelitis Neurogenic bladder Benign essential hypertension Home Medications ?Medication ?Instructions ?Recorded ?Last Taken ?Type baclofen 20 mg tablet 20 mg PO 4X/DAY muscle spasms 02/26/13 06/27/21 History multivitamin with folic acid 400 1 tab PO LUNCH supplemeny 02/26/13 06/27/21 History mcg tablet (Thera) nortriptyline 50 mg capsule 100 mg PO QHS anxiety 01/19/19 06/26/21 History ascorbic acid (vitamin C) 1,000 mg 1 g PO DAILY Check with primary 06/28/21 Unknown History tablet (Vitamin C) doctor cholecalciferol (vitamin D3) 50 50 mcg PO DAILY Check with primary 06/28/21 Unknown History mcg (2,000 unit) capsule (Vitamin doctor D3) docusate sodium 100 mg capsule 100 mg PO BID Check with primary 06/28/21 Unknown History doctor loratadine 10 mg capsule 10 mg PO DAILY Check with primary 06/28/21 Unknown History doctor venlafaxine 75 mg tablet 150 mg PO DAILY Check with primary 06/28/21 Unknown History doctor aspirin 81 mg tablet,delayed 81 mg PO BREAKFAST heart health 30 06/29/21 Unknown Rx release days #30 tabs carvedilol 6.25 mg tablet 6.25 mg PO BID heart 30 days #60 06/29/21 Unknown Rx tabs ondansetron 4 mg disintegrating 4 mg PO Q8H PRN nausea and 06/06/22 Unknown Rx tablet vomiting #10 tabs rosuvastatin 10 mg tablet (Crestor) 20 mg PO DAILY 06/16/24 Unknown History buprenorphine 20 mcg/hour weekly 1 patch transdermal Q7D 09/11/24 Unknown History transdermal patch acetaminophen 325 mg tablet 650 mg PO BID PRN 11/03/24 Unknown History (Tylenol) doxycycline monohydrate 100 mg 100 mg PO BID 11/03/24 Unknown History capsule ibuprofen 600 mg tablet (IBU) 600 mg PO 4X/DAY PRN 11/03/24 Unknown History lidocaine 5 % topical patch 2 patch topical DAILY 11/03/24 Unknown History oxycodone-acetaminophen 5 mg-325 1 tab PO Q6H pain 11/03/24 Unknown History mg tablet pregabalin 150 mg capsule (Lyrica) 150 mg PO TID 11/03/24 Unknown History cefepime 2 gram solution for 2 g IV Q8 5 days #16 ea 11/04/24 Unknown Rx injection Allergy/AdvReac Type Severity Reaction Status Date / Time No Known Allergies Allergy Verified 11/03/24 11:31 Family History Father CVA (cerebral vascular accident) Heart disease Myocardial infarction Surgical History History of coronary artery stent placement (06/28/21) History of femoral derotational osteotomy History of appendectomy History of suprapubic catheter Hx of colostomy Colostomy in place Social History (Updated 11/03/24 @ 16:[address] Milady Tilley DO) household members: spouse housing: house current occupational status: retired Smoking Status: Former smoker alcohol intake: former substance use type: marijuana Physical Exam Const alert, oriented x3 and no apparent distress General Appearance: cooperative HEENT normocephalic and head/scalp atraumatic Eyes PERRL and EOMs intact bilaterally Neck supple and No nodes Resp normal air movement and clear to auscultation bilaterally Cardio regular rate and regular rhythm GI soft to palpation, non-tender and non-distended Extremity General Extremity: Negative for edema Skin no rashes or lesions noted Neuro CN's II-XII intact bilaterally Neuro Narrative: paraplegia Lab / Micro Data Attestation: I reviewed the patient's lab results. 11/04/24 06:12 11/04/24 06:12 Labs: Laboratory Results - last 24 hr 11/03/24 14:30: Troponin T Hi Sens 2 Hr 26 H 11/03/24 16:28: Troponin T Hi Sens 4Hr 26 H 11/04/24 06:12: WBC 7.7, RBC 4.38 L, Hgb 10.9 L, Hct 34.3 L, MCV 78.3 L, MCH 24.9 L, MCHC 31.8 L, RDW Std Deviation 51.3 H, RDW Coeff of Bhanu 18.0 H, Plt Count 297, MPV 9.0, Immature Gran % (Auto) 0.300, Neut % (Auto) 59.7, Lymph % (Auto) 25.3, Finney % (Auto) 11.7 H, Eos % (Auto) 2.6, Baso % (Auto) 0.4, Absolute Neuts (auto) 4.6, Absolute Lymphs (auto) 1.95, Nucleated RBC % 0, Sodium 140, Potassium 3.5, Chloride 106, Carbon Dioxide 23.4, Anion Gap 11, BUN 15, Creatinine 0.68 L, Estim Creat Clear Calc 111.19, Est GFR (MDRD) Non-Af 104, BUN/Creatinine Ratio 22.2 H, Glucose 139 H, Calcium 8.4, Phosphorus 3.1, Magnesium 1.9, Total Bilirubin < 0.15, AST 14, ALT 6, Alkaline Phosphatase 108, Total Protein 5.9, Albumin 2.7 L, Globulin 3.1, Albumin/Globulin Ratio 0.9
--- NOTE | 2024-11-04 15:22 | CASEMGMT ---
JOHNSTON Met with patient to complete JOHNSTON form. JOHNSTON form and its content were verbally explained and patient's questions were answered to the best of my ability.? Patient voiced understanding and signed JOHNSTON form.? Patient provided a copy of signed JOHNSTON form and original placed in patient's chart.? Patient had no further questions. Zainab Espinal, Discharge Planning Asst
[2024-11-04] MEDS: 0.9% Normal Saline (250mL Bag) 250 ML 15 ML IV ×2 (15:40→22:23)
[2024-11-04] MEDS: 0.9% Saline Lock 10 ML Syringe IV (15:44)
[2024-11-04 20:31] VITALS: BP 123/71; PULSE 79; RESP 18; TEMP 37; O2SAT 97
[2024-11-04] MEDS: Morphine 2 MG/ML Syringe IV (22:24)
[2024-11-04] MEDS: Atorvastatin Calcium 40 MG Tablet PO (22:24)
[2024-11-04] MEDS: Nortriptyline 25 MG Capsule 100 MG PO (22:26)
[2024-11-05] VITALS (7 sets, daily range): BP systolic 106–135; BP diastolic 59–87; PULSE 80–98; RESP 16–18; TEMP 36.6–36.9; O2SAT 94–96; BMI 24.8
[2024-11-05] MEDS: oxyCODONE 5 MG Tablet PO ×4 (00:47→18:15)
[2024-11-05] MEDS: Cefepime HCl 2 GM in 0.9% Normal Saline (100mL MB+) 100 ML IV ×2 (04:56→14:32)
[2024-11-05] MEDS: Enoxaparin 40 MG/0.4 ML Syringe SC (06:12)
[2024-11-05] MEDS: Pregabalin 75 MG Capsule 150 MG PO ×2 (06:13→14:41)
[2024-11-05] MEDS: Zinc Sulfate 50 mg zinc (220 mg) ORAL capsule PO ×2 (06:13→14:42)
--- NOTE | 2024-11-05 07:46 | PN.HOSP_ITS ---
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 No new complaints. Objective Data Objective Data Vital Signs: Vital Signs Temp Pulse Resp BP Pulse Ox O2 Del Method 36.6 C 81 18 114/59 L 94 Room Air 11/05/24 04:51 11/05/24 04:51 11/05/24 04:51 11/05/24 04:51 11/05/24 04:51 11/05/24 04:51 Oxygen Delivery Method Room Air Weight: 76.3 kg Body Mass Index (BMI) 24.8 Intake & Output: Intake and Output for Last 24 Hours 11/03/24 11/04/24 11/05/24 23:59 23:59 23:59 Intake Total 1187.5 / 1187.5 2751 / 2751 200 / 200 Output Total 1700 / 1700 800 / 800 Balance 1187.5 / 1187.5 1051 / 1051 -600 / -600 Lab / Micro Data 11/04/24 06:12 11/04/24 06:12 Physical Exam Const alert and no apparent distress HEENT head/scalp atraumatic and moist oral mucous membranes Assessment & Plan Assessment/Plan (1) Acute UTI: PLAN: Pseudomonas CAUTI. Catheter changed in ED on 11/01 Fluoroquinolone resistant. On cefepime ID has seen patient and ordered 5-days of cefepime for discharge. PICC placed. PLAN: Plan Debility: chronic. At baseline due to the paraplegia. Chronic conditions: * sacral ulcerations Vitamin C and Zn. Follow up with Dr. Masterson. * CAD: stable. 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 Complicates care and recovery. VTE prophylaixs:LMWH disposition: pending arrangement for IV abx. Medically stable for discharge, but delay due to arranging home care. Unclear if could be performed successfully at home given reported reluctance of his ex-, who lives with patient, to be of help. Possibly patient may need to go to a SNF. Charges/Coding Visit Charges Inpatient E&M: 49132 Subs Hosp L1
--- NOTE | 2024-11-05 08:43 | WOUNDNOTE ---
wound photo: sacrum/bilateral ischium/posterior scrotum
[2024-11-05] MEDS: Ascorbic Acid 500 MG Tablet 1000 MG PO (08:45)
[2024-11-05] MEDS: Docusate Sodium 100 MG Capsule PO (08:45)
[2024-11-05] MEDS: Carvedilol 6.25 MG Tablet PO ×2 (08:45→18:15)
[2024-11-05] MEDS: Loratadine 10 MG Tablet PO (08:45)
[2024-11-05] MEDS: Aspirin E.C. 81 MG Tablet PO (08:45)
[2024-11-05] MEDS: Cholecalciferol (VIT D3) 25 MCG TABLET (1,000 UNITS) 50 MCG PO (08:46)
[2024-11-05] MEDS: Ondansetron 4 MG/2 ML Vial IV (09:02)
[2024-11-05] MEDS: 0.9% Saline Lock 10 ML Syringe IV ×2 (09:02→15:46)
--- NOTE | 2024-11-05 10:18 | CASEMGMT ---
Addendum entered by Gissell Suarez 11/05/24 15:35: Pt nurse aware that pt was set up for transport at 5pm. Addendum entered by Gissell Suarez 11/05/24 15:33: RN VAUGHN into pt room, pt is aware of dc today and HH coming tomorrow at 7am. He is aware that his ex requested 10am but they are not able to accommodate this. Pt called Maryana and she is agreeable to 7am. [facility] called ABISAI MENDES phone and they spoke with pt via speakerphone. Pairing Machine Operator to set up transportation home via cot. Faxed [facility] dc information at this time. Attached dc summary to [employer] and sent via [employer]. Addendum entered by Gissell Suarez 11/05/24 15:17: Received confirmation back from [facility] who can deliver this evening. Sent [facility] the picc report via [employer]. Updated hospitalist. TC to [facility], she is aware that pt will dc today with [facility] seeing pt first thing in the morning, she requests 10am. She is aware pt will miss a dose tonight and already be late a dose and that it is best to let the HH come first thing in the morning. She states if she remembers how, she will give the med tonight. Made aware to wait for the HH nurse to provide education. TC to [facility], spoke with Loren, she is aware of pt dc today and states that the nurse will be there at 7am. Addendum entered by Gissell Suarez 11/05/24 14:24: Received confirmation from [facility] wage and salary administrator that [facility] can see pt tomorrow for teaching of IV first thing in the morning. Message via [facility] to [facility] to see if they can deliver pt med this evening. Addendum entered by Gissell Suarez 11/05/24 14:15: TC from pt ex questioning when pt will be coming home. She states she does want to learn the IV and does not want [facility] to come out 3x/day. She is available after 4:30pm today and before 1:30pm tomorrow. TC to Loren at [facility] to make aware. She states she is going to have the wage and salary administrator [facility] call this ABISAI MENDES to discuss. Original Note: TC to [facility], spoke with Loren. She states she needs to call her wage and salary administrator as pt ex will not learn the IV atb. She states this has happened prior and she stated she would but would not administer them. She states pt ex will not empty pt colostomy, empty can or turn pt. She will check her staffing availability for 3x/day IV and call this RN CM back.
[2024-11-05] MEDS: Lidocaine 5% Patch 2 PATCH TOPICAL (10:36)
[2024-11-05] MEDS: Venlafaxine HCl 75 MG Tablet 150 MG PO (10:37)
[2024-11-05] MEDS: Baclofen 10 MG Tablet 20 MG PO ×3 (10:37→18:15)
[2024-11-05] MEDS: Multivitamins,Therapeutic Tablet 1 TABLET PO (12:11)
--- NOTE | 2024-11-05 15:14 | PCM.DC.SUM ---
Providers Date of Admission: 11/04/24 Primary Care Physician: [facility] Consultations 11/03/24 17:38 Consult: Infectious Disease Routine Consulting Provider: Maulik Jenkins Reason for Consult: Complicated UTI EMERGENT Consult: No MD Notified: Yes Date Notified: 11/04/24 Time Notified: 07:42 Method of Notification: Text Consult: Onc/Wound/software asset manager Routine Comment: 11/03/24 18:25 Consult: Onc/Wound/software asset manager Routine Comment: Reason For Visit: COMPLICATED PSEUDOMONAS AERUGINOSA Diagnosis Discharge Diagnosis (1) Acute UTI: Status: Acute Code(s): N39.0 - Urinary tract infection, site not specified Plan: Pseudomonas CAUTI. Catheter changed in ED on 11/01 Fluoroquinolone resistant. On cefepime ID has seen patient and ordered 5-days of cefepime for discharge. PICC placed. Plan Debility: chronic. At baseline due to the paraplegia. Chronic conditions: sacral ulcerations Vitamin C and Zn. Follow up with Dr. Masterson. CAD: stable. ASA, carvedilol, statin paraplegia 2/2 transverse myelitis: baclofen, gabapentin, buprenorphine. Complicates care and recovery. VTE prophylaixs:LMWH disposition: To home with home care. To continue with IV antibiotics. Case management was able to discuss with patient's ex-, doing the lives with, and apparently she will be involved in the IV antibiotics to help. Medications at Discharge Home Medications baclofen 20 mg tablet 20 mg PO 4X/DAY muscle spasms 02/26/13 multivitamin with folic acid 400 mcg tablet (Thera) 1 tab PO LUNCH supplemeny 02/26/13 nortriptyline 50 mg capsule 100 mg PO QHS anxiety 01/19/19 ascorbic acid (vitamin C) 1,000 mg tablet (Vitamin C) 1 g PO DAILY Check with primary doctor 06/28/21 cholecalciferol (vitamin D3) 50 mcg (2,000 unit) capsule (Vitamin D3) 50 mcg PO DAILY Check with primary doctor 06/28/21 docusate sodium 100 mg capsule 100 mg PO BID Check with primary doctor 06/28/21 loratadine 10 mg capsule 10 mg PO DAILY Check with primary doctor 06/28/21 venlafaxine 75 mg tablet 150 mg PO DAILY Check with primary doctor 06/28/21 aspirin 81 mg tablet,delayed release 81 mg PO BREAKFAST [employer] 30 days #30 tabs 06/29/21 carvedilol 6.25 mg tablet 6.25 mg PO BID heart 30 days #60 tabs 06/29/21 ondansetron 4 mg disintegrating tablet 4 mg PO Q8H PRN nausea and vomiting #10 tabs 06/06/22 rosuvastatin 10 mg tablet (Crestor) 20 mg PO DAILY 06/16/24 buprenorphine 20 mcg/hour weekly transdermal patch 1 patch transdermal Q7D 09/11/24 acetaminophen 325 mg tablet (Tylenol) 650 mg PO BID PRN 11/03/24 doxycycline monohydrate 100 mg capsule 100 mg PO BID 11/03/24 ibuprofen 600 mg tablet (IBU) 600 mg PO 4X/DAY PRN 11/03/24 lidocaine 5 % topical patch 2 patch topical DAILY 11/03/24 oxycodone-acetaminophen 5 mg-325 mg tablet 1 tab PO Q6H pain 11/03/24 pregabalin 150 mg capsule (Lyrica) 150 mg PO TID 11/03/24 cefepime 2 gram solution for injection 2 g IV Q8 5 days #16 ea 11/04/24 Hospital Course Operations None Procedures None Summary of Care Provided Minutes Spent on Discharge: 32 Hospital Course: Patient presented emergency room on the sixth and was sent to have urinary check infection and was discharged with levofloxacin. Came back showing Pseudomonas that was resistant patient was sent back to the hospital. Patient started on cefepime and patient disease was consulted. The patient had a PICC line placed and patient will be discharged to home with home health care to continue with IV antibiotics. There was some initial reticence from the patient's ex-, to whom he lives with, about giving him IV antibiotics. Apparently this had been an issue before where some doses of antibiotics had been missed and patient had to be readmitted. But it was impressed upon her the importance of her continuing the management of the IV antibiotics at home health care will not be available [id number] to be able to help with that. Patient will be discharged home today with home health care. Weight / BMI Weight Weight: 76.3 kg Body Mass Index (BMI) 24.8 ABG / Lab / Microbiology Data 11/04/24 06:12 11/04/24 06:12 D/C Instructions Discharge Diet: No restrictions DC O2, CPAP, BIPAP Needs Home O2 Discharge instructions: No Meaningful Use Info Meaningful Use Meaningful Use Diagnoses (Choose all that apply): None applicable Ischemic Stroke Statin Dosing Therapy Reference: STATIN DOSE THERAPY REFERENCE: * Patients > 75 years receive moderate or high dose statin therapy. * Patients 75 years or YOUNGER should receive HIGH intensity statin dose unless contraindicated. You will be required to document reason for non-treatment if statin daily dose does not meet guidelines. HIGH DOSE STATIN THERAPY DAILY Atorvastatin > than or = to 40 mg Rosuvastatin > than or = to 20 mg Amlodipine + Atorvastatin > than or = to 2.5/40 mg Ezetimibe + Simvastatin 10/80 mg Simvastatin 80mg Discharge Plan Admission Admit Date/Time: 11/04/24 17:06 Primary Reason for Your Visit: Urinary tract infection Attending Provider: Adan Schneider Primary Care Provider: [facility] Consulting Providers: Milady Tilley; Maulik Jenkins Discharge Orders/Prescriptions Prescriptions: New cefepime 2 gram Recon Soln 2 g IV Q8 5 Days Qty: 16 0RF Rx Instructions: dx: Pseudomonas infection. Routine picc care per protocol. Continued baclofen 20 MG tablet 20 mg PO 4X/DAY Patient Comments: MUSCLE SPASMS multivitamin with folic acid [Thera] 1 TABLET tablet 1 tab PO LUNCH Patient Comments: SUPPLEMENT nortriptyline 50 MG capsule 100 mg PO QHS ascorbic acid (vitamin C) [Vitamin C] 1,000 mg Tablet 1 g PO DAILY venlafaxine 75 mg Tablet 150 mg PO DAILY docusate sodium 100 mg Capsule 100 mg PO BID cholecalciferol (vitamin D3) [Vitamin D3] 50 mcg (2,000 unit) Capsule 50 mcg PO DAILY loratadine 10 mg Capsule 10 mg PO DAILY carvedilol 6.25 mg Tablet 6.25 mg PO BID 30 Days Qty: 60 0RF aspirin 81 mg Tablet,Delayed Release (Dr/Ec) 81 mg PO BREAKFAST 30 Days Qty: 30 0RF ondansetron 4 mg tablet,disintegrating 4 mg PO Q8H PRN (Reason: nausea and vomiting) Qty: 10 0RF buprenorphine 20 mcg/hour patch weekly 1 patch transdermal Q7D Rx Instructions: sundays pregabalin [Lyrica] 150 mg capsule 150 mg PO TID doxycycline monohydrate 100 mg capsule 100 mg PO BID ibuprofen [IBU] 600 mg tablet 600 mg PO 4X/DAY PRN acetaminophen [Tylenol] 325 mg tablet 650 mg PO BID PRN oxycodone-acetaminophen 5-325 mg tablet 1 tab PO Q6H lidocaine 5 % adhesive patch,medicated 2 patch topical DAILY Rx Instructions: leave on most painful area for up to 12 hrs rosuvastatin [Crestor] 10 mg tablet 20 mg PO DAILY Referrals [facility] - Within 2 Weeks Disposition Disposition (needs filled in before D/C Order can be placed): Home, Self Care Charges/Coding Visit Charges Inpatient E&M: 30977 Disch Hosp >30min
--- NOTE | 2024-12-27 14:41 | EDS_ITS ---
HPI History of Present Illness Chief Complaint: General Illness Detail of Chief Complaint: Not feeling well Informant: patient and family Narrative Narrative: Patient presents to the emergency department via EMS with complaint of nausea and not feeling well. He was seen in the emergency department 2 days ago and diagnosed with a UTI and started on cefdinir. Patient has history of chronic suprapubic catheter and decubiti ulcers. Patient paraplegic. He denies fever or cough. He denies diarrhea. Patient denies chest pain. Denies significant abdominal pain. 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 Neurogenic bladder Benign essential hypertension Home Medications ?Medication ?Instructions ?Recorded ?Last Taken ?Type baclofen 20 mg tablet 20 mg PO 4X/DAY muscle spasm s 02/26/13 06/27/21 History multivitamin with folic acid 400 1 tab PO LUNCH supple sia 02/26/13 06/27/21 History mcg tablet (Thera) nortriptyline 50 mg capsule 100 mg PO QHS anxiety 12/2806/26/21 History ascorbic acid (vitamin C) 1,000 mg 1 g PO DAILY Check with primary 06/28/21 Unknown History tablet (Vitamin C) doctor cholecalciferol (vitamin D3) 50 50 mcg PO DAILY Check with primary 06/28/21 Unknown History mcg (2,000 unit) capsule (Vitamin doctor D3) docusate sodium 100 mg capsule 100 mg PO BID Check wit h primary 06/28/21 Unknown History doctor loratadine 10 mg capsule 10 mg PO DAILY Check with pr imary 06/28/21 Unknown History doctor venlafaxine 75 mg tablet 150 mg PO DAILY Check with p rimary 06/28/21 Unknown History doctor aspirin 81 mg tablet,delayed 81 mg PO BREAKFAST heart health 30 06/29/21 Unknown Rx release days #30 tabs carvedilol 6.25 mg tablet 6.25 mg PO BID heart 30 days #60 06/29/21 Unknown Rx tabs ondansetron 4 mg disintegrating 4 mg PO Q8H PRN nausea and 06/06/22 Unknown Rx tablet vomiting #10 tabs rosuvastatin 10 mg tablet (Crestor) 20 mg PO DAILY md ordered 06/16/24 Unknown History buprenorphine 20 mcg/hour weekly 1 patch transdermal Q 7D md ordered 09/11/24 Unknown History transdermal patch acetaminophen 325 mg tablet 650 mg PO BID PRN md order ed 11/03/24 Unknown History (Tylenol) ibuprofen 600 mg tablet (IBU) 600 mg PO 4X/DAY PRN md ordered 11/03/24 Unknown History lidocaine 5 % topical patch 2 patch topical DAILY md o rdered 11/03/24 Unknown History oxycodone-acetaminophen 5 mg-325 1 tab PO Q6H pain 01/20 Unknown History mg tablet pregabalin 150 mg capsule (Lyrica) 150 mg PO TID md or dered 11/03/24 Unknown History Allergy/AdvReac Type Severity Reaction Status Date / Time No Known Allergies Allergy Verified 11/30/24 06:59 Family History Father CVA (cerebral vascular accident) Heart disease Myocardial infarction Surgical History History of coronary artery stent placement (06/28/21) History of femoral derotational osteotomy History of appendectomy History of suprapubic catheter Hx of colostomy Colostomy in place Social History household members: spouse housing: house current occupational status: retired Smoking Status: Former smoker alcohol intake: former substance use type: marijuana ROS ROS ED Review of Systems ROS Unobtainable: other Constitutional Constitutional ED: Reports chills and lethargy; Denies fever(s), sweats or weight loss Eyes Eyes: Denies blurry vision, change in vision or diplopia ENT ENT ED: Denies rhinorrhea or sore throat Cardiovascular Cardiovascular: Denies chest pain, orthopnea or racing heartbeat Respiratory/Chest Respiratory/Chest: Denies cough, dyspnea, dyspnea on exertion, orthopnea or sputum Gastrointestinal Gastrointestinal: Reports nausea; Denies abdominal pain, diarrhea or vomiting Genitourinary Genitourinary ED: Denies dysuria, hematuria or urinary frequency Musculoskeletal Musculoskeletal: Reports myalgias; Denies arthralgias, back pain or neck pain Integumentary Denies abscess, Abrasions or rash Neurologic Neurologic: Reports weakness; Denies headache(s) Psychiatric Psychiatric: Denies anxiety, depression or suicidal thoughts Endocrine Endocrinology: Denies polydipsia, polyphagia or polyuria Hematologic/Lymphatic Hematologic/Lymphatic: Denies easy bleeding, easy bruising or lymphadenopathy Allergic/Immunologic Allergic/Immunologic ED: Denies mouth swelling, tongue swelling or urticaria EXAM Physical Exam Const Positive well nourished and well developed General Appearance ED: well developed and NAD HEENT Reports TM's clear and moist mucous membranes normocephalic and atraumatic; Negative for trauma or tenderness Tympanic Membrane ED: Yes TM's clear Eyes PERRL and EOMs intact bilaterally General Eye ED: Negative for pale conjunctiva or scleral icterus Neck no lymphadenopathy, supple and no JVD General: Negative for tenderness Chest Wall inspection of chest normal and palpation of chest normal Chest: Negative for tenderness Resp normal respiratory effort and clear to auscultation bilaterally Effort and Inspection: Negative for respiratory distress or pain with movement Auscultation: Negative for rhonchi, wheezes or diminished lung sounds Cardio regular rate, regular rhythm, S1 normal heart sound, S2 normal heart sound and no murmurs Peripheral Pulses: pulses 2+ throughout GI normal to inspection, nondistended, normoactive bowel sounds, soft to palpation, non-distended and no masses GI Narrative: Mild diffuse tenderness. There is no rebound, rigidity, or peritoneal signs. No mass palpated. Patient has suprapubic catheter in place. Narrative: Suprapubic catheter in place recently changed. Back/Spine no CVA tenderness and no thoracic nor lumbar tenderness Extremity Negative for normal to inspection Extremity Narrative: Weakness to both lower extremities General Extremety ED: Yes edema General Extremity: edema bilateral Neuro oriented x3, CN's II-XII intact bilaterally, no sensory deficits noted and gait normal Neuro Narrative: Paraplegic with no significant movement to lower extremities Sensorium / Orientation: awake, alert, oriented to person, oriented to place and oriented to time Motor Exam: strength abnormal; Negative for strength 5/5 throughout Psych mental status grossly normal Skin No no rashes or lesions noted and No no wounds Skin Narrative: Sacral decubiti with no significant drainage or signs of infection. MDM MDM MDM Narrative Medical decision making narrative: Patient presents to the emergency department recently diagnosed with UTI and started on cefdinir. IV line established. Labs ordered. EKG obtained on arrival showed a sinus rhythm with a ventricular rate of 70 bpm with no acute ST segment changes. CBC with differential showed a normal white count. Chemistries unremarkable. Troponin slightly elevated at 27 and lactate normal at 1.3. I did obtain a CT scan of the abdomen pelvis to rule out such things as infected kidney stone versus other acute intra-abdominal process. This showed questionable left lower lobe infiltrate and effusion. I did start patient on Rocephin and Zithromax IV. 1 view chest x-ray obtained initially interpreted by myself as no acute disease process. Radiology agreement. Discussed case with hospitalist will evaluate patient for admission. She noted that the initial culture grew out Pseudomonas that was resistant to initial antibiotic selected. She will consult ID and start appropriate antibiotic regimen to treat the Pseudomonas. Radiography Diagnostic Testing: Clinical Impression(s) from Imaging Studies Abdomen/Pelvis CT 11/03/24 12:26 IMPRESSION: Left lung base pneumonia. No acute process identified in the abdomen or pelvis. Other findings as above. OVERALL FINAL ASSESSMENT: . LI-RADS is not meant to be used in patients <18 years or patients with cirrhosis due to congenital hepatic fibrosis or due to vascular disorders, because these patients have a lower chance of developing HCC. Reading Location: [facility] Chest X-Ray 11/03/24 14:35 IMPRESSION: No acute process detected. Reading [facility] 1 view chest x-ray obtained interpreted by myself as no evidence of infiltrate or pneumothorax or acute disease process. Radiology in agreement. EKG Initial EKG: Attestation: I personally reviewed and interpreted this EKG as follows: Comments: Sinus rhythm with rate of 70 bpm with no acute ST segment changes Discharge Plan Dx/Rx/DC Orders Clinical Impression: Acute UTI, Acute paraplegia, Nausea Disposition Disposition: [facility] Discharge Date/Time: 11/03/24 17:13
== END 2024-11-05 18:52 | disposition home health service (06) | DRG 698 ==
LOC: ED 16:06 → MS3 16:25
PROVIDERS: Admitting Provider Internal Medicine; Emergency Provider Emergency Medicine
DX: T83.511A Infection and inflammatory reaction due to indwelling urethral catheter, initial encounter (principal); L89.154 Pressure ulcer of sacral region, stage 4; L89.314 Pressure ulcer of right buttock, stage 4; L89.324 Pressure ulcer of left buttock, stage 4; L89.894 Pressure ulcer of other site, stage 4; G82.20 Paraplegia, unspecified; F32.A Depression, unspecified; I10 Essential (primary) hypertension; Z93.3 Colostomy status; E78.5 Hyperlipidemia, unspecified; I25.10 Atherosclerotic heart disease of native coronary artery without angina pectoris; K59.09 Other constipation; F41.9 Anxiety disorder, unspecified; X58.XXXA Exposure to other specified factors, initial encounter; N39.0 Urinary tract infection, site not specified; N31.9 Neuromuscular dysfunction of bladder, unspecified; B96.5 Pseudomonas (aeruginosa) (mallei) (pseudomallei) as the cause of diseases classified elsewhere; Z79.899 Other long term (current) drug therapy; Z96.0 Presence of urogenital implants; Z95.5 Presence of coronary angioplasty implant and graft; Z79.01 Long term (current) use of anticoagulants; Z79.82 Long term (current) use of aspirin; Z86.61 Personal history of infections of the central nervous system; Z87.891 Personal history of nicotine dependence
CPT/HCPCS: 36415; 36569; 71045; 74177; 80053; 83605; 83690; 83735; 84100; 84484; 85025; 93005; 94668; 97802; 99285; Q9967; A4216; J2405

== ENCOUNTER 2024-11-30 06:58 | Inpatient (IN) | payer OTHER, SELFPAY ==
[2024-11-30] VITALS (14 sets, daily range): BP systolic 160–189; BP diastolic 64–110; PULSE 64–115; RESP 14–20; TEMP 36.3–36.4; O2SAT 94–100; BMI 25.0; BMI 24.2
--- NOTE | 2024-11-30 07:02 | VDLE_ITS ---
Reason For Study Reason For Study: Swelling RIGHT GSV is normal. CFV is compressible, spontaneous, phasic, competent and demonstrates normal augmentation. FV is compressible, spontaneous, phasic, competent and demonstrates normal augmentation. POP V is compressible, spontaneous, phasic, competent and demonstrates normal augmentation. T/P Trunk is compressible. PTV is compressible. RT PerV is compressible. Procedure This is a venous duplex using B-mode, color flow and spectral Doppler. Exam performed portable in ED. The study was technically difficult. A preliminary report was called and/or faxed to [facility]rero. VL/Venous Duplex US, Unilateral Interpretation Summary Deep veins of the right lower extremity are patent and compressible segmentally . There is no evidence of right lower extremity deep vein thrombosis. The right great saphenous vein appears patent a nd compressible segmentally. Ordering Physician: Christian Merlos Referring Physician: [facility] Performed By: Aileen Elena RVT
--- NOTE | 2024-11-30 07:03 | EKG12_ITS ---
Test Reason : CP Blood Pressure : */* mmHG Vent. Rate : 81 BPM Atrial Rate : 81 BPM P-R Int : 176 ms QRS Dur : 100 ms QT Int : 396 ms P-R-T Axes : 53 61 59 degrees QTcB Int : 460 ms Normal sinus rhythm Normal ECG Confirmed by JUAN MARR, BRUCE ([id number]), commercial production editor AURORA FOURNIER ([id number]) on 12/02/2024 10:35:40 AM Referred By: Confirmed By: BRUCE MARTINEZ MD
--- NOTE | 2024-11-30 07:07 | ED.VIS.CHEST ---
HPI History of Present Illness Chief Complaint: Chest Pain Informant: patient and EMS Narrative Narrative: 64-year-old male arriving by EMS for evaluation of chest tightness that has been on and off since yesterday. He arrives at about 7 AM. He states he has no idea when yesterday this started, if it was bedtime or morning. He is not currently having any of it. He cannot tell me how long it is lasting exactly what it feels like, he thinks it is on the right side when it occurs and without any radiation or pleuritic in nature. He denies any acute cough. He states it makes him feel a little short of breath but he is not dyspneic otherwise. He is very poor informant; he is paraplegic living at home with a colostomy and an indwelling Lima catheter and he has no idea why he is a paraplegic. He has a very swollen right lower extremity. He states this is not new, and when asked if he has been checked for a blood clot here, he states he has no idea. When asked if he is on an anticoagulant, he states he does not think so. When asked if he has any history of heart or lung problems, he states no. 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 Neurogenic bladder Benign essential hypertension Home Medications ?Medication ?Instructions ?Recorded ?Last Taken ?Type baclofen 20 mg tablet 20 mg PO 4X/DAY muscle spasms 02/26/13 06/27/21 History multivitamin with folic acid 400 1 tab PO LUNCH supplemeny 02/26/13 06/27/21 History mcg tablet (Thera) nortriptyline 50 mg capsule 100 mg PO QHS anxiety 01/19/19 06/26/21 History ascorbic acid (vitamin C) 1,000 mg 1 g PO DAILY Check with primary 06/28/21 Unknown History tablet (Vitamin C) doctor cholecalciferol (vitamin D3) 50 50 mcg PO DAILY Check with primary 06/28/21 Unknown History mcg (2,000 unit) capsule (Vitamin doctor D3) docusate sodium 100 mg capsule 100 mg PO BID Check with primary 06/28/21 Unknown History doctor loratadine 10 mg capsule 10 mg PO DAILY Check with primary 06/28/21 Unknown History doctor venlafaxine 75 mg tablet 150 mg PO DAILY Check with primary 06/28/21 Unknown History doctor aspirin 81 mg tablet,delayed 81 mg PO BREAKFAST heart health 30 06/29/21 Unknown Rx release days #30 tabs carvedilol 6.25 mg tablet 6.25 mg PO BID heart 30 days #60 06/29/21 Unknown Rx tabs ondansetron 4 mg disintegrating 4 mg PO Q8H PRN nausea and 06/06/22 Unknown Rx tablet vomiting #10 tabs rosuvastatin 10 mg tablet (Crestor) 20 mg PO DAILY 06/16/24 Unknown History buprenorphine 20 mcg/hour weekly 1 patch transdermal Q7D 09/11/24 Unknown History transdermal patch acetaminophen 325 mg tablet 650 mg PO BID PRN 11/03/24 Unknown History (Tylenol) doxycycline monohydrate 100 mg 100 mg PO BID 11/03/24 Unknown History capsule ibuprofen 600 mg tablet (IBU) 600 mg PO 4X/DAY PRN 11/03/24 Unknown History lidocaine 5 % topical patch 2 patch topical DAILY 11/03/24 Unknown History oxycodone-acetaminophen 5 mg-325 1 tab PO Q6H pain 11/03/24 Unknown History mg tablet pregabalin 150 mg capsule (Lyrica) 150 mg PO TID 11/03/24 Unknown History cefepime 2 gram solution for 2 g IV Q8 5 days #16 ea 11/04/24 Unknown Rx injection Allergy/AdvReac Type Severity Reaction Status Date / Time No Known Allergies Allergy Verified 11/30/24 06:59 Family History Father CVA (cerebral vascular accident) Heart disease Myocardial infarction Surgical History History of coronary artery stent placement (06/28/21) History of femoral derotational osteotomy History of appendectomy History of suprapubic catheter Hx of colostomy Colostomy in place Social History household members: spouse housing: house current occupational status: retired Smoking Status: Former smoker alcohol intake: former substance use type: marijuana ROS ROS ED Constitutional Constitutional ED: Denies chills, fever(s) or sweats Eyes Eyes: Denies change in vision or diplopia ENT ENT ED: Denies rhinorrhea or sore throat Cardiovascular Cardiovascular: Reports as per HPI and chest pain; Denies palpitations, radiating jaw, neck or arm pain or syncope Respiratory/Chest Respiratory/Chest: Reports other Details: a little short of breath with the chest tightness ; Denies cough Gastrointestinal Gastrointestinal: Reports nausea; Denies abdominal pain, diarrhea or vomiting Genitourinary Genitourinary ED: Denies dysuria or hematuria Musculoskeletal Musculoskeletal: Denies back pain or neck pain Integumentary Denies abscess or rash Neurologic Neurologic: Reports paresthesias and weakness; Denies headache(s) Psychiatric Psychiatric: Denies anxiety or suicidal thoughts EXAM Physical Exam Const Vital Signs: 11/30/24 06:59 11/30/24 07:03 11/30/24 07:03 Temperature 97.4 F L Temperature Source Oral Pulse Rate 90 Respiratory Rate 14 Respiratory Effort Normal Blood Pressure 171/110 H Blood Pressure Mean 130 Pulse Ox 98 Oxygen Delivery Method Room Air 11/30/24 07:59 11/30/24 09:00 11/30/24 10:00 Temperature Temperature Source Pulse Rate 85 109 H 78 Respiratory Rate 18 20 H 18 Respiratory Effort Blood Pressure 172/94 H 172/64 H 171/76 H Blood Pressure Mean 120 100 107 Pulse Ox 94 99 98 Oxygen Delivery Method Room Air Room Air Room Air 11/30/24 11:00 11/30/24 12:00 11/30/24 13:00 Temperature Temperature Source Pulse Rate 115 H 67 78 Respiratory Rate 18 18 14 Respiratory Effort Blood Pressure 174/78 H 167/78 H 164/78 H Blood Pressure Mean 110 107 106 Pulse Ox 98 98 98 Oxygen Delivery Method Room Air Room Air Room Air Positive well nourished and well developed General Appearance ED: well developed and NAD HEENT Reports moist mucous membranes normocephalic and atraumatic Eyes PERRL and EOMs intact bilaterally Neck full ROM and supple Resp normal respiratory effort and clear to auscultation bilaterally Cardio regular rate, regular rhythm and no murmurs Rate: Negative for tachycardic Peripheral Pulses: pulses 2+ throughout GI non-tender and non-distended Auscultation: normoactive bowel sounds Palpation: soft Extremity Extremity Narrative: no rash, wounds, sign of acute infection; no calf tenderness General Extremety ED: Yes edema; Negative for pulses abnormal or tenderness General Extremity: edema right lower extremity moderate (with virtually no edema on left lower ext); Negative for pulses abnormal Neuro oriented x3 and CN's II-XII intact bilaterally Neuro Narrative: can barely move BLE; paraplegia Sensorium / Orientation: awake and alert Psych Psych Narrative: flat affect Skin no rashes or lesions noted and no wounds MDM MDM MDM Narrative Medical decision making narrative: I reviewed the patient's medical history in the EMR. Apparently he had paralytic poliovirus, and although he did not remember any history of heart problems, he apparently has at least 1 coronary stent. He was given 4 baby aspirin by EMS. No wheezing is not having any chest discomfort right now his EKG shows no STEMI or signs of acute ischemia/repolarization abnormality, basically normal EKG with normal sinus rhythm. Follow-up with them concerned about the degree of asymmetric swelling in his lower extremity, with there being edema on the right but not on the left. Reviewing the EMR here, he had an ultrasound of his right lower extremity in May about 6.5 months ago that showed no evidence of a DVT. He had CT angiography of the chest a couple months ago that showed no pulmonary embolus. Given the fact that he has no tachycardia or hypoxemia or pleuritic discomfort, and discomfort that has been tightness intermittently, I think this is less likely to be PE. I think if he has no DVT in this edematous leg, then he does not require further emergent workup for PE again now. Indeed, his ultrasound is negative, per the oil and gas field technician and I reviewed the images and agree with that. His initial troponin was a little nonspecifically elevated at 32 his second 1 came back lower at 23, his EKG shows no acute injury pattern as above, and he developed no recurrent chest tightness while here in emergency department. His nausea did get worse which we treated, he states he has this often. I reexamined him when he felt more nauseated, he has no abdominal tenderness. He had a CT for similar GI symptoms, abdomen/pelvis, 1 month ago and it was unremarkable except for left basilar pneumonia. On my interpretation 1 view chest x-ray shows no acute pneumonia, and he has no symptoms of pneumonia right now. He has a mild nonspecific leukocytosis. I think he is stable for discharge home and after getting nausea medication he is tolerating oral fluids and wants to go home as well. Follow-up advised. Lab Data Attestation: I reviewed the patient's lab results. Labs: Laboratory Results - last 24 hr 11/30/24 11/30/24 07:28 09:15 WBC 12.6 H RBC 5.13 Hgb 12.7 L Hct 39.7 L MCV 77.4 L MCH 24.8 L MCHC 32.0 RDW Std Deviation 49.1 H RDW Coeff of Bhanu 17.4 H Plt Count 407 MPV 8.8 Immature Gran % (Auto) 0.600 Neut % (Auto) 76.3 H Lymph % (Auto) 16.2 L Hyde % (Auto) 5.1 Eos % (Auto) 1.4 Baso % (Auto) 0.4 Absolute Neuts (auto) 9.6 H Absolute Lymphs (auto) 2.04 Nucleated RBC % 0 Sodium 139 Potassium 4.1 Chloride 103 Carbon Dioxide 22.3 Anion Gap 13 BUN 18 Creatinine 0.64 L Estim Creat Clear Calc 118.14 Est GFR (MDRD) Non-Af 106 BUN/Creatinine Ratio 27.8 H Glucose 129 H Calcium 9.2 Troponin T High Sens 32 H D Troponin T Hi Sens 2 Hr 23 H Radiography Diagnostic Testing: Clinical Impression(s) from Imaging Studies Chest X-Ray 11/30/24 08:05 IMPRESSION: No acute cardiopulmonary process. Reading Location: [facility] Rhythm Strip Rhythm Strip: Sinus Rhythm Rate: 90 Ectopy: None EKG Initial EKG: Attestation: I personally reviewed and interpreted this EKG as follows: Interpretation: Sinus Rhythm and No Acute Injury Pattern Comments: Nml axis & intervals; nml EKG Discharge Plan Triage Chief Complaint: Chest Pain ED Provider: Chrisitan Merlos Dx/Rx/DC Orders Clinical Impression: Intermittent chest pain, Nausea, Paraplegia, Edema of right lower extremity Instructions: ED Chest Pain, Uncertain Cause Prescriptions: No Action baclofen 20 MG tablet 20 mg PO 4X/DAY Patient Comments: MUSCLE SPASMS multivitamin with folic acid [Thera] 1 TABLET tablet 1 tab PO LUNCH Patient Comments: SUPPLEMENT nortriptyline 50 MG capsule 100 mg PO QHS ascorbic acid (vitamin C) [Vitamin C] 1,000 mg Tablet 1 g PO DAILY venlafaxine 75 mg Tablet 150 mg PO DAILY docusate sodium 100 mg Capsule 100 mg PO BID cholecalciferol (vitamin D3) [Vitamin D3] 50 mcg (2,000 unit) Capsule 50 mcg PO DAILY loratadine 10 mg Capsule 10 mg PO DAILY carvedilol 6.25 mg Tablet 6.25 mg PO BID 30 Days Qty: 60 0RF aspirin 81 mg Tablet,Delayed Release (Dr/Ec) 81 mg PO BREAKFAST 30 Days Qty: 30 0RF ondansetron 4 mg tablet,disintegrating 4 mg PO Q8H PRN (Reason: nausea and vomiting) Qty: 10 0RF buprenorphine 20 mcg/hour patch weekly 1 patch transdermal Q7D Rx Instructions: sundays pregabalin [Lyrica] 150 mg capsule 150 mg PO TID doxycycline monohydrate 100 mg capsule 100 mg PO BID ibuprofen [IBU] 600 mg tablet 600 mg PO 4X/DAY PRN acetaminophen [Tylenol] 325 mg tablet 650 mg PO BID PRN oxycodone-acetaminophen 5-325 mg tablet 1 tab PO Q6H lidocaine 5 % adhesive patch,medicated 2 patch topical DAILY Rx Instructions: leave on most painful area for up to 12 hrs cefepime 2 gram Recon Soln 2 g IV Q8 5 Days Qty: 16 0RF Rx Instructions: dx: Pseudomonas infection. Routine picc care per protocol. rosuvastatin [Crestor] 10 mg tablet 20 mg PO DAILY [facility]Primary [facility] Provider] - As soon as possible Activity Restrictions/Additional Instructions: We did an ultrasound of your right lower extremity today, it is negative for blood clots Print Language: Belarusian Disposition Disposition: Home, Self Care
--- OUTSIDE RECORDS SUMMARY | 2024-11-30 07:36 | XMS RPT_ITS | CCD ---
Author Organization [facility] Care Team Providers Care Instrument Repairer Helper Name Role Phone PROVIDER, UNKNOWN Unavailable Unavailable No, PCP Unavailable Unavailable Gajulapalli, Chivo Unavailable Unavailable [facility] Unavailable Unavail able [facility] Unavailable Unavail able [facility] Unavailable Unavail able [facility] Unavailable Unavail able [facility] Unavailable Unavail able [place] Primary Care Provider UnavailDr. Adan Santa Emergency Provider Dr. Lorraine Quinonez Admit Provider Dr. Lorraine Quinonez Referring Provider Dr. Zackary Costello Other Provider Dr. John Ponce Other Provider Dr. Alberto Candelario Attending Provider Dr. John Ponce Attending Provider JAMEY HUYNH Primary Care UnavailJamey Weiss MD Primary Care [place] Primary Care Provider UnavailDr. Alma Rosa Isaacs DO Emergency Provider Dr. Ronak Quiroz DO Admit Provider Unavail able Dr. Ronak Quiroz DO Other Provider Unavail able Adis MARR, Dr. Farmer Attending Provider Dr. Maulik Jenkins MD Other [place] Primary Care Provider UnavailDr. Darian Park MD Other Provider Dr. Christian Merlos MD Emergency Provider Dr. Richie Borden DO Attending Provider Dr. Richie Borden DO Emergency Provider Oscar NARVAEZ, Dr. Gómez Attending Provider Oscar NARVAEZ, Dr. Gómez Emergency Provider Ray NARVAEZ, Dr. Arellano Emergency Provider [facility], [place] Primary Care Provider Unavailabl e Ray NARVAEZ, Dr. Arellano Attending Provider Kathy NARVAEZ, Dr. Holcomb Emergency Provider Ungelizabeth DO, Dr. St Emergency Provider Jarek NARVAEZ, Dr. Henning Admit Provider Jarek NARVAEZ, Dr. Henning Attending Provider [facility], [place] Primary Care Provider Unavailabl e Jarek NARVAEZ, Dr. Henning Other Provider Kasia DO, Dr. St Emergency Provider Jarek NARVAEZ, Dr. Henning Admit Provider Jarek NARVAEZ, Dr. Henning Attending Provider Dr. Adan Schneider DO Attending Provider Dr. Adan Schneider DO Other Provider Gregory MARR, Dr. Willingham Other Provider Ronak Quiroz Admitting Unavailable Ronak Quiroz Consulting [facility] [place] [facility] Darian Arceo Attending Unavailable Darian Arceo Consulting Unavailable Ronak Quiroz Attending Unavailable Ronak Quiroz Admitting [facility] [place] [facility] Unavailable de Ronak Cui Consulting Unavailable Darian Arceo Attending Unavailable Adis, Darian Consulting Unavailable Maulik Jenkins Consulting Unavailable Ronak Quiroz Attending Unavailable Adan Schneider Attending Unavailable Milady Tilley Consulting Unavailable Milady Tilley Ad[facility] [place] [facility] Maulik Jenkins Consulting [facility] [place] [facility] Richie Borden Attending Unavailable Rico Moore Attending [facility] [place] [facility] Un[facility] de Ronak Cui Admitting [facility] [place] [facility] Darian Arceo Attending Unavailable Ronak Quiroz Consulting Unavailable Ronak Quiroz Consulting Unavailable Ronak Quiroz Admitting Unavailable Darian Arceo Attending [facility] [place] [facility] Maulik Jenkins Consulting Unavailable Adan Bell Attending Unavailable [facility], [place] Primary Care Unavailable [facility]ema [facility]aptiste [facility] [place] [facility] Un[facility] Zhang Chavez Attending [facility] [facility] [place] [facility] Unavailable Milady Tilley Consulting Unavailable Milady Tilley Admitting Unavailable Milady Tilley Attending Unavailable [facility], [place] Primary Care Unavailable Adan Schneider Attending Unavailable Maulik Jenkins Consulting Unavailable Adan Schneider Consulting Unavailable Adan Schneider Attending Unavailable Milady Tilley Consulting Unavailable Milady Tilley Admitting [facility]available [facility] [place] [facility] Unavailable Maulik Jenkins Unavailable Adan Schneider Consulting Unavailable Medications Current Medications Medication Drug Class(es) Dates Sig (Normalized) Sig (Original) acetaminophen 325 mg oral tablet (1 source) Start: 11-03-2024 take 2 tablets by mouth twice daily as needed Acetaminophen (Tylenol) 325 mg tablet Active 650 mg PO TWICE DAILY NEEDED November 03, 2024 12:00am acetaminophen 325 mg / oxyCODONE hydrochloride 5 mg oral tablet (20 sources) Opioid Agonist Start: 11-03-2024 Oxycodone-Acetamino phen 5-325 mg tablet Active 1 {tbl} PO EVERY 6 HOURS November 03, 2024 12:00am Start: 03-16-2017 End: 03-22-2017 take 10-325 mg by mouth four times daily as needed for pain Oxycodone-Acetaminophen 1 EACH tablet Discontinued 10 - 325 mg PO 4 TIMES DAILY NEEDED as needed for Mod-Severe Pain (-03/07) March 16, 2017 12:00am March 22, 2017 [...] 26, 2013 12:00am April 19, 2013 9:41am ascorbic acid 1000 mg oral tablet (16 sources) Vitamin C Start: 06-28-2021 take 1 [...] aspirin 81 mg delayed release oral tablet (8 sources) Platelet Aggregation Inhibitor, Nonsteroidal Anti-inflammatory Drug Start: 06-29-2021 take 1 tablet by mouth at breakfast Aspirin 81 mg Tablet,Delayed Release (Dr/Ec) Active 81 mg PO WITH BREAKFAST June 29, 2021 1:00am baclofen 20 mg oral tablet (9 sources) gamma-Aminobutyric Acid-ergic Agonist Start: 02-26-2013 take 1 tablet by mouth four times daily Baclofen 20 MG tablet Active 20 mg PO 4 TIMES DAILY February 26, 2013 12:00am Start: 02-26-2013 take 1 tablet by aaron th three times daily Baclofen 20 MG tablet Active 20 mg PO THREE TIMES A DAY February 26, 2013 12:00am 168 hr buprenorphine 0.02 mg/hr transdermal system (8 sources) Partial Opioid Agonist Start: 09-11-2024 apply 20 ug transdermal route every week Buprenorphine 20 mcg/hour patch weekly Active 1 NMA TD Q7D September 11, 2024 12:00am sundays Start: 06-11-2024 End: 09-11-2024 apply 10 ug transdermal route every week Buprenorphine 10 mcg/hour patch weekly Discontinued 1 NMA TD Q7D June 11, 2024 1:00am September 11, 2024 8:38pm carvedilol 6.25 mg oral tablet (8 sources) alpha-Adrenergic Pedro, beta-Adrenergic Pedro Start: 06-29-2021 take 1 tablet by mouth twice daily Carvedilol 6.25 mg Tablet Active 6.25 mg PO TWICE A DAY 60 June 29, 2021 1:00am cefepime 2000 mg injection (1 source) Cephalosporin Antibacterial Start: 11-04-2024 take 2 g intravenously every eight hours Cefepime 2 gram Recon Soln Active 2 g IV EVERY 8 HOURS 16 November 04, 2024 12:00am dx: Pseudomonas infection. Routine picc care per protocol. cholecalciferol 0.05 mg oral capsule (8 sources) Vitamin D Start: 06-28-2021 take 1 capsule by mouth once daily Cholecalciferol (Vitamin D3) (Vitamin D3) 50 mcg (2,000 unit) Capsule Active 50 ug PO DAILY June 28, 2021 1:00am docusate sodium 100 mg oral capsule (8 sources) Start: 06-28-2021 take 1 capsule by mouth twice daily Docusate Sodium 100 mg Capsule Active 100 mg PO TWICE A DAY June 28, 2021 1:00am doxycycline monohydrate 100 mg oral capsule (17 sources) Tetracycline-class Drug Start: 07-13-2024 End: 11-03-2024 take 1 capsule by mouth twice daily Doxycycline Monohydrate 100 mg capsule Active 100 mg PO TWICE A DAY November 03, 2024 12:00am Start: 06-16-2024 End: 06-19-2024 take 1 capsule [...] 60 mg by mouth once daily. Active ibuprofen 600 mg oral tablet (1 source) Nonsteroidal Anti-inflammatory Drug Start: 11-04-19 take 1 tablet by mouth four times daily as needed Ibuprofen (Ibu) 600 mg tablet Active 600 mg PO 4 TIMES DAILY NEEDED November 03, 2024 12:00am lidocaine 0.05 mg/mg medicated patch (1 source) Antiarrhythmic, Amide Local Anesthetic Start: 11-04-19 Lidocaine 5 % adhesive patch,medicated Active 2 NMA TOPICAL DAILY November 03, 2024 12:00am leave on most painful area for up to 12 hrs loratadine 10 mg oral capsule (8 sources) Start: 06-28-19 take 1 capsule by mouth once daily [...] With Folic Acid (Thera) 1 TABLET tablet (8 sources) Start: 02-27-20 13 take 1 tablet by mouth at lunch [...] 2013 11:00pm nortriptyline 50 mg oral capsule (8 sources) Tricyclic Antidepressant Start: 01-19-2019 take 1 capsule by mouth at bedtime Nortriptyline 50 MG capsule Active 100 mg PO AT BEDTIME January 19, 2019 12:00am Start: 01-19-2019 take 100 mg by mouth at bedtim e Nortriptyline Active 100 MG PO AT BEDTIME January 19, 2019 12:00am pregabalin 150 mg oral capsule (1 source) Start: 11-03-2024 take 1 capsule by mouth three times daily Pregabalin (Lyrica) 150 mg capsule Active 150 mg PO THREE TIMES A DAY November 03, 2024 12:00am rosuvastatin calcium 10 mg oral tablet (20 sources) HMG-CoA Reductase Inhibitor Start: 06-16-2024 take [...] 2021 12:03pm venlafaxine 75 mg oral tablet (8 sources) Serotonin and Norepinephrine Reuptake Inhibitor Start: 06-28-2021 take 2 tablets by mouth once daily Venlafaxine 75 mg Tablet Active 150 mg PO DAILY June 28, 2021 1:00am Start: 06-28-2021 take 75 mg by mouth once daily Venlafaxine Active 75 MG PO DAILY June 28, 2021 1:00am Completed/Discontinued Medications Medication Drug Class(es) Dates Sig (Normalized) Sig (Original) amoxicillin 875 mg / clavulanate 125 mg oral tablet (16 sources) Penicillin-class Antibacterial Start: 03-08-2017 End: 03-16-2017 Amoxicillin/Potass ium Clav (Amox-Clav 875-125 Mg Tablet) 1 EACH tablet Discontinued 1 {tbl} PO TWICE A DAY March 08, 2017 12:00am March 16, 2017 9:23am Start: 06-03-2015 End: 09-07-2015 take 1 tablet by mouth every twelve hours Amoxicillin-Pot Clavulanate 875 MG tablet Discontinued 875 mg PO Q12H June 03, 2015 1:00am September 07, 2015 9:19am apixaban 2.5 mg oral tablet (8 sources) Factor Xa Inhibitor Start: 06-29-2021 End: 11-03-2024 take 1 tablet by mouth twice daily Apixaban (Eliquis) 2.5 mg Tablet Discontinued 2.5 mg PO TWICE A DAY 60 June 29, 2021 1:00am November 03, 2024 7:54pm On Hold: not confirmed Lvhnj-Qbhy-Akknf -Tqfbwh-Iy-Qbv (Mamadou (With Collagen)) 1 PACKET Packet (8 sources) Start: 03-22-2017 End: 05-01-2017 take 1 dose by mouth twice daily at mealtime Udzqg-Jotk-Nnvyj-Co llag-Mv-Min (Mamadou (With Collagen)) 1 PACKET Packet Discontinued 1 PACKET PO TWICE DAILY WITH MEALS March 22, 2017 1:37pm May 01, 2017 12:37pm Start: 03-22-2017 End: 05-01-2017 take 1 dose by mouth twice daily at mealtime Wjjya-Abuu-Texrd-Flppqb-Wv-Gpm (Mamadou (W ith Collagen)) 1 PACKET Packet Discontinued 1 NMA PO TWICE DAILY WITH MEALS March 22, 2017 12:00am May 01, 2017 12:37pm Start: 03-22-2017 End: 05-01-2017 take 1 dose by mouth twice daily at mealtime Nwfou-Sljk-Hgpwp-Dapodi-Ru-Hcl (Mamadou (W ith Collagen)) 1 PACKET Packet Discontinued 1 PACKET PO TWICE DAILY WITH MEALS March 22, 2017 12:00am May 01, 2017 12:37pm Start: 03-22-2017 End: 05-01-2017 take 1 dose by mouth twice daily at mealtime Zgsnp-Mdxg-Zlxqn-Phkkyk-Vi-Qit (Mamadou (W ith Collagen)) 1 PACKET Packet Discontinued 1 PACKET PO TWICE DAILY WITH MEALS March 21, 2017 11:00pm May 01, 2017 11:37am azithromycin 250 mg oral tablet (4 sources) Macrolide Antimicrobial Start: 07-13-2024 End: 09-11-2024 Azithromycin (Zithromax Z-Elio) 250 mg tablet Discontinued 0 PO .COMPLEX July 13, 2024 1:00am September 11, 2024 8:38pm For 250 mg dose pack: take 500 mg today (day 1), then 250 mg for 4 days (days 2-5) cefdinir 300 mg oral capsule (3 sources) Cephalosporin Antibacterial Start: 11-01-2024 End: 11-03-2024 take 1 capsule by mouth every twelve hours Cefdinir 300 mg capsule Discontinued 300 mg PO Q12H November 01, 2024 12:00am November 03, 2024 7:53pm ciprofloxacin 500 mg oral tablet (14 sources) Quinolone Antimicrobial Start: 06-06-2022 End: 06-14-2024 [...] ml enoxaparin sodium 100 mg/ml prefilled syringe (8 sources) Low Molecular Weight Heparin Start: 03-16-2017 End: 05-01-2017 Enoxaparin 40 MG/0.4 ML syringe Discontinued 40 mg SC DAILY@1000 March 16, 2017 12:00am May 01, 2017 12:36pm 72 hr fentaNYL 0.012 mg/hr transdermal system (8 sources) Opioid Agonist Start: 04-19-2013 End: 12-11-2013 Fentanyl 12 MCG patch Discontinued 12 ug TRANSDERM. Every 3 Days April 19, 2013 1:00am December 11, 2013 2:48pm Food Supplemt, Lactose-Reduced (Ensure High Protein) 237 ML Liquid (8 sources) Start: 02-26-2013 End: 05-01-2013 take 1 [...] 25, 2013 11:00pm May 01, 2013 11:01am gabapentin 100 mg oral capsule (9 sources) Anti-epileptic Agent Start: 04-19-2013 End: 11-03-2024 take 3 capsules by mouth three times daily Gabapentin 100 MG capsule Discontinued 300 mg PO THREE TIMES A DAY April 19, 2013 1:00am November 03, 2024 5:57pm Start: 04-19-2013 take 900 mg by mouth three times daily Gabapentin Active 900 MG PO THREE TIMES A DAY April 19, 2013 1:00am take 1 capsule by [facility] three times daily gabapentin (NEURONTIN) 400 mg capsule Indications: Acute transverse myelitis (HCC) , Paraplegia (HCC) , Contracture of joint of multiple sites , Spasticity , Neurogenic bladder , History of creation of ostomy (HCC) Take 400 mg by mouth three times daily. Active lisinopril 2.5 mg oral tablet (16 sources) Angiotensin Converting Enzyme Inhibitor Start: 07-06-2021 [...] 2021 5:02pm LORazepam 1 mg oral tablet (11 sources) Benzodiazepine Start: 07-14-2024 End: 09-11-2024 take [...] 7:09pm ondansetron 4 mg disintegrating oral tablet (17 sources) Serotonin-3 Receptor Antagonist Start: 07-14-2024 End: [...] 7:09pm oxyCODONE hydrochloride 5 mg oral tablet (8 sources) Opioid Agonist Start: 03-22-2017 End: 03-24-2017 [...] 3000 mg / tazobactam 375 mg injection (12 sources) Penicillin-class Antibacterial, beta Lactamase Inhibitor Start: 06-14-2024 End: 06-19-2024 Pmakedkrtgal-Gdccphixqm-Tlqo rs (Zosyn In Dextrose (Iso-Osm)) 3.375 gram/50 mL piggyback Discontinued 3.375 g IV Q8H June 14, 2024 1:00am June 19, 2024 12:42pm dx: pseudomonas infection. Midline care per protocol. Start: 03-16-2017 End: 05-01-2017 take 3.375 g intravenously every six hours Dxwmiotcyojw-Nukspvnvag-Nhzgwg (Zosyn) 3.375 GM/50 ML Ml Discontinued 3.375 g IV EVERY 6 HOURS March 16, 2017 12:00am May 01, 2017 12:37pm ticagrelor 90 mg oral tablet (8 sources) Start: 06-29-2021 End: 06-16-2024 take 1 tablet by mouth twice daily Ticagrelor (Brilinta) 90 mg Tablet Discontinued 90 mg PO TWICE A DAY 60 June 29, 2021 1:00am June 16, 2024 7:12pm vancomycin 500 mg injection (16 sources) Glycopeptide Antibacterial Start: 05-06-2013 End: 05-10-2013 [...] Documented Da te Episodic/Chronic Acute myocardial infarction (9 sources) Myocardial infarction; Translations: [Non-ST elevation (NSTEMI) myocardial infarction] Chronic Alcohol-related disorders (8 sources) Continuous chronic alcoholism; Translations: [Alcohol dependence, uncomplicated] 07-30-2017 Chronic Bacterial infection; unspecified site (1 source) Pseudomonas (aeruginosa) (mallei) (pseudomallei) as the cause of diseases classified elsewhere; Translations: [Pseudomonas (aeruginosa) (mallei) (pseudomallei) as the cause of diseases classified elsewhere] Onset: 11-06-2024 Episodic Chronic ulcer of skin (20 sources) Pressure ulcer of sacral region, stage 4; Translations: [Pressure ulcer of contiguous site of back, buttock and hip, stage 4] Onset: 05-19-2017 06-28-2021 Chronic Comment on above: L89.314 Complication of device; implant or graft (10 sources) Other mechanical complication of indwelling urethral catheter, initial encounter; Translations: [Obstruction of [place] catheter] Onset: 07-08-2024 06-28-2021 Episodic Coronary atherosclerosis and other heart disease (8 sources) Coronary atherosclerosis; Translations: [Atherosclerotic heart disease of [place] coronary artery without angina pectoris] 06-28-2021 Chronic Diseases of white blood cells (2 sources) Elevated white blood cell count, unspecified; Translations: [Elevated white blood cell count, unspecified] Onset: 05-19-2017 Chronic Essential hypertension (4 sources) Hypertensive disorder; Translations: [Essential (primary) hypertension] 07-21-2024 Chronic Fever of unknown origin (8 sources) Fever; Translations: [Fever, unspecified] 06-28-2021 Episodic Genitourinary symptoms and ill-defined conditions (8 sources) Other artificial openings of urinary tract status; Translations: [Suprapubic urinary catheter in situ] Onset: 05-19-2017 11-01-2024 Chronic Genitourinary symptoms and ill-defined conditions (9 sources) Blood in urine; Translations: [Hematuria, unspecified] Onset: 11-16-2024 06-28-2021 Episodic Infective arthritis and osteomyelitis (except that caused by tuberculosis or sexually transmitted di (14 sources) Osteomyelitis of vertebra, sacral and sacrococcygeal region; Translations: [Osteomyelitis of right femur] Onset: 05-19-2017 06-28-2021 Chronic Malaise and fatigue (20 sources) Lethargy; Translations: [Other fatigue] Onset: 06-19-2024 06-12-2024 Episodic Nausea and vomiting (12 sources) Nausea; Translations: [Nausea] Onset: 11-06-2024 05-30-2022 Episodic Open wounds of head; neck; and trunk (4 sources) Finding of sacral region; Translations: [Unspecified open wound of lower back and pelvis without penetration into retroperitoneum, initial encounter] 09-11-2024 Episodic Other aftercare (8 sources) Wound finding; Translations: [Encounter for other [...] Chronic Other diseases of bladder and urethra (8 sources) Neurogenic bladder; Translations: [Neuromuscular dysfunction of bladder, unspecified] 06-28-2021 Chronic Other gastrointestinal disorders (2 sources) Colostomy status; Translations: [Colostomy status] Onset: 05-19-2017 Chronic Other injuries and conditions due to external causes (8 sources) Wound discharge; Translations: [Other injury of unspecified body region, initial encounter] 09-17-2021 Episodic Other lower respiratory disease (7 sources) Nodule of lung; Translations: [Solitary pulmonary nodule] 05-30-2022 Episodic Other nervous system disorders (2 sources) Polyneuropathy, unspecified; Translations: [Polyneuropathy, unspecified] Onset: 05-19-2017 Chronic Other nervous system disorders (5 sources) Metabolic encephalopathy; Translations: [Metabolic encephalopathy] 06-22-2024 Chronic Other nervous system disorders (1 source) Metabolic encephalopathy; Translations: [Metabolic encephalopathy] Onset: 06-14-2024 Chronic Other nervous system disorders (16 sources) Transverse myelopathy syndrome; Translations: [Acute transverse myelitis in demyelinating disease of central nervous system] 07-30-2017 Episodic Comment on above: Complicated by parap legia; decubitus ulcerations requiring surgical debridement and colostomy Other non-traumatic joint disorders (5 sources) Hip pain; Translations: [Pain in unspecified hip] 06-12-2024 Episodic Paralysis (18 sources) Paraplegia, unspecified; Translations: [Paraplegia] Onset: 05-19-2017 05-22-2022 Chronic Residual codes; unclassified (8 sources) Heavy drinker ; Translations: [Other specified health status] 06-28-2021 Episodic Residual codes; unclassified (10 sources) Tobacco user; Translations: [Tobacco use] 10-09-2023 Episodic Residual codes; unclassified (4 sources) Insomnia; Translations: [Insomnia, unspecified] 07-22-2024 Episodic Residual codes; unclassified (7 sources) Other specified health status; Translations: [Failure of outpatient treatment] Onset: 11-06-2024 06-16-2024 Episodic Septicemia (4 sources) Sepsis, unspecified organism; Translations: [Sepsis due to Escherichia coli [E. coli]] Onset: 05-19-2017 Septicemia (except in labor) (8 sources) Sepsis due to urinary tract infection; Translations: [Sepsis, unspecified organism] 06-28-2021 Episodic Substance-related disorders (2 sources) Nicotine dependence, cigarettes, uncomplicated; Translations: [Nicotine dependence, cigarettes, uncomplicated] Onset: 05-19-2017 Chronic Unclassified (1 source) Onset: 03-23-2017 Urinary tract infections (20 sources) Acute cystitis; Translations: [Acute cystitis with hematuria] Onset: 06-19-2024 06-12-2024 Episodic Viral infection (7 sources) Acute viral disease; Translations: [Viral infection, unspecified] 05-30-2022 Episodic Past or Other Problems Problem Classification Problem Date Documented Da te Episodic/Chronic Administrative/social admission (2 sources) Bed confinement status; Translations: [Bed confinement status] Onset: 05-19-2017 Episodic Coronary atherosclerosis and other heart disease (1 source) Presence of coronary angioplasty implant and graft; Translations: [Presence of coronary angioplasty implant and graft] Onset: 06-19-2024 Episodic Fluid and electrolyte disorders (14 sources) Dehydration; Translations: [Hypokalemia] Onset: 05-19-2017 07-22-2024 Episodic Fracture of neck of femur (hip) (15 sources) Closed fracture of hip; Translations: [Fracture of unspecified part of neck of right femur, subsequent encounter for closed fracture with nonunion] Onset: 06-19-2024 06-11-2024 Episodic Nonspecific chest pain (6 sources) Chest pain; Translations: [Chest pain, unspecified] [...] caused by tuberculosis or sexually transmitted disease) (20 sources) Pneumonia; Translations: [Pneumonia, unspecified organism] Onset: 06-14-2024 01-19-2019 Episodic Residual codes; unclassified (1 source) Insomnia, unspecified; Translations: [Insomnia, unspecified] Onset: 07-25-2024 Episodic Residual codes; unclassified (1 source) Tobacco use; Translations: [Tobacco use] Onset: 06-19-2024 Episodic Substance-related disorders (10 sources) Marijuana user; Translations: [Cannabis use, unspecified, uncomplicated] Onset: 06-14-2024 06-28-2021 Episodic Unclassified (8 sources) Bilateral Ischial Ulcers 07-30-2017 Unclassified (8 sources) malnutrition, mild 07-30-2017 Unclassified (8 sources) osteomyelitis rt heel, acute and chronic 07-30-2017 Results Test Name Value Interpretation Reference Range Facility Absolute lymphocyte countOrd ered By: Milady Tilley on 11-04-2024 Lymphocytes Auto (Unsp spec) [#/Vol] 1.95 10*3/uL 0.83-4.51 [facility] Absolute neutrophil countOrd ered By: Milady Tilley on 11-04-2024 Neutrophils (Bld) [#/Vol] 4.6 10*3/uL 2.0-7.7 [facility] Anion gap in Serum or Plasma Ordered By: Milady Tilley on 11-04-2024 Anion gap [Moles/Vol] 11 mmol/L 5-15 [facility] Automated lymphocyte count a s percentage of total leukocytesOrdered By: Milady Tilley on 11-04-2024 Lymphocytes/100 WBC Auto (Unsp spec) 25.3 % 19-41 [facility] BUN/creatinine ratioOrdered By: Milady Tilley on 11-04-2024 Urea nitrogen/Creatinine [Mass ratio] 22.2 mg/mg High 10-20 [facility] Basophil percentageOrdered B y: Milady Tilley on 11-04-2024 Basophils/100 WBC (Bld) 0.4 % 0-1 [facility] Bilirubin, totalOrdered By: Milady Tilley on 11-04-2024 Bilirubin [Mass/Vol] mg/dL 0.00-1.30 [facility] CBC W/Diff, Automatedon 06-0 9-2025 Absolute Lymph 1.95 X10 3/uL Normal 0.83-4.51 [facility] Comment on above: Performed By: #### L [id number], [id number], L500.4050, L100.0100 ####[facility] [address] [place], [address] Absolute Neut 4.6 X10 3/uL Normal 2.0-7.7 [facility] Comment on above: Performed By: #### L [id number], [id number], L500.4050, L100.0100 ####[facility] [address] [place], [address] Basophils/100 WBC (Bld) 0.4 % Normal 0-1 [facility] Comment on above: Performed By: #### L [id number], [id number], [id number], L100.0100 ####[facility] [id number] [place], [address] Eosinophils/100 WBC (Bld) 2.6 % Normal 0-5 [facility] Comment on above: Performed By: #### L [id number], [id number], [id number], L100.0100 ####[facility] [address] [place], [address] Erythrocyte distribution width (RBC) [Ratio] 18.0 % High 11.6-14.6 [facility] Comment on above: Performed By: #### L [id number], [id number], [id number], L100.0100 ####[facility] [address] [place], [address] Hematocrit (Bld) [Volume fraction] 34.3 % Low 40-54 [facility] Comment on above: Performed By: #### L [id number], [id number], [id number], L100.0100 ####[facility] [address] [place], [address] Hemoglobin (Bld) [Mass/Vol] 10.9 g/dL Low 13.0-16. 5 [facility] Comment on above: Performed By: #### L [id number], [id number], [id number], L100.0100 ####[facility] [address] [place], [address] IG% 0.300 Normal 0.0-0.9 [facility] Comment on above: Result Comment: IG% - Immature Granulocytes (promyelocytes, myelocytes andmetamyelocytes) > 1% indicates that a LEFT SHIFT is Present. Performed By: #### L 501.2300, L501.5200, L500.4050, L100.0100 ####[facility] [address] [place], [address] Lymphocytes/100 WBC (Bld) 25.3 % Normal 19-41 [facility] Comment on above: Performed By: #### L 501.2300, L501.5200, L500.4050, L100.0100 ####[facility] [address] [place], [address] MCH (RBC) [Entitic mass] 24.9 pg Low 27.0-32.0 [facility] Comment on above: Performed By: #### L 501.2300, L501.5200, L500.4050, L100.0100 ####[facility] [address] [place], [address] MCHC (RBC) [Mass/Vol] 31.8 g/dL Low 32-36 [facility] Comment on above: Performed By: #### L 501.2300, L501.5200, L500.4050, L100.0100 ####[facility] [address] [place], [address] MCV (RBC) [Entitic vol] 78.3 fL Low 80-94 [facility] Comment on above: Performed By: #### L 501.2300, L501.5200, L500.4050, L100.0100 ####[facility] [address] [place], [address] Monocytes/100 WBC (Bld) 11.7 % High 0-10 [facility] Comment on above: Performed By: #### L 501.2300, L501.5200, L500.4050, L100.0100 ####[facility] [address] [place], [address] Neutrophils/100 WBC (Bld) 59.7 % Normal 47-70 [facility] Comment on above: Performed By: #### L 501.2300, L501.5200, L500.4050, L100.0100 ####[facility] [address] [place], [address] Nucleated RBC (Bld) [#/Vol] 0 10*3/uL Normal 0-5 [facility] Comment on above: Performed By: #### L 501.2300, L501.5200, L500.4050, L100.0100 ####[facility] [address] [place], [address] Platelet mean volume (Bld) [Entitic vol] 9.0 fL Normal 6.2-12.0 [facility] Comment on above: Performed By: #### L 501.2300, L501.5200, L500.4050, L100.0100 ####[facility] [address] [place], [address] Platelets (Bld) [#/Vol] 297 10*3/uL Normal 150-450 [facility] Comment on above: Performed By: #### L 501.2300, L501.5200, L500.4050, L100.0100 ####[facility] [address] [place], [address] RBC (Bld) [#/Vol] 4.38 10*6/uL Low 4.6-6.2 [facility] Comment on above: Performed By: #### L 501.2300, L501.5200, L500.4050, L100.0100 ####[facility] [address] [place], [address] RDW SD 51.3 fl High 35.1-43.9 [facility] Comment on above: Performed By: #### L 501.2300, L501.5200, L500.4050, L100.0100 ####[facility] [address] [place], [address] WBC (Bld) [#/Vol] 7.7 10*3/uL Normal 4.4-11.0 [facility] Comment on above: Performed By: #### L 501.2300, L501.5200, L500.4050, L100.0100 ####[facility] [address] [place], [address] Carbon dioxide, total [Moles /volume] in Central venous bloodOrdered By: Milady Tilley on 11-04-2024 CO2 [Moles/Vol] 23.4 mmol/L 21.0-32.0 [facility] Chloride assayOrdered By: Kaitlyn Tilley on 11-04-2024 Chloride [Moles/Vol] 106 mmol/L 98-108 [facility] Comprehensive Metabolic Prof ilon 11-04-2024 Albumin [Mass/Vol] 2.7 g/dL Low 3.4-4.8 [facility] Comment on above: Performed By: #### L 501.2300, L501.5200, L500.4050, L100.0100 ####[facility] [address] [place], [address] Albumin/Globulin [Mass ratio] 0.9 {ratio} Normal 0.9-2.4 [facility] Comment on above: Performed By: #### L 501.2300, L501.5200, L500.4050, L100.0100 ####[facility] [address] [place], [address] ALK PHOS 108 U/L Normal 40-129 [facility] Comment on above: Performed By: #### L 501.2300, L501.5200, L500.4050, L100.0100 ####[facility] [address] [place], [address] ALT [Catalytic activity/Vol] 6 U/L Normal <=46 [facility] Comment on above: Performed By: #### L 501.2300, L501.5200, L500.4050, L100.0100 ####[facility] [address] [place], [address] AST [Catalytic activity/Vol] 14 U/L Normal <=37 [facility] Comment on above: Performed By: #### L 501.2300, L501.5200, L500.4050, L100.0100 ####[facility] [address] [place], [address] BUN/CRE 22.2 RATIO High 10-20 [facility] Comment on above: Performed By: #### L 501.2300, L501.5200, L500.4050, L100.0100 ####[facility] [address] [place], [address] Calcium [Mass/Vol] 8.4 mg/dL Normal 7.6-11.0 [facility] Comment on above: Performed By: #### L 501.2300, L501.5200, L500.4050, L100.0100 ####[facility] [address] [place], [address] Chloride [Moles/Vol] 106 mmol/L Normal 98-108 [facility] Comment on above: Performed By: #### L 501.2300, L501.5200, L500.4050, L100.0100 ####[facility] [address] [place], [address] CO2 [Moles/Vol] 23.4 mmol/L Normal 21.0-32.0 [facility] Comment on above: Performed By: #### L 501.2300, L501.5200, L500.4050, L100.0100 ####[facility] [address] [place], [address] Creatinine [Mass/Vol] 0.68 mg/dL Low 0.70-1.20 [facility] Comment on above: Performed By: #### L 501.2300, L501.5200, L500.4050, L100.0100 ####[facility] [address] [place], [address] ECRCL 111.19 ml/min Normal 50-250 [facility] Comment on above: Performed By: #### L 501.2300, L501.5200, L500.4050, L100.0100 ####[facility] [address] [place], [address] GAP 11 Normal 5-15 [facility] Comment on above: Performed By: #### L 501.2300, L501.5200, L500.4050, L100.0100 ####[facility] [address] [place], [address] GFR/1.73 sq M.predicted among non-blacks MDRD (S/P/Bld) [Vol rate/Area] 104 mL/min/{1.73_m2} Normal >60 [facility] Comment on above: Result Comment: mL/m in/1.73m2 CKD-EPI Creatinine Equation (2020) Performed By: #### L 501.2300, L501.5200, L500.4050, L100.0100 ####[facility] [address] [place], [address] Globulin (S) [Mass/Vol] 3.1 g/dL Normal 2.2-4.2 [facility] Comment on above: Performed By: #### L 501.2300, L501.5200, L500.4050, L100.0100 ####[facility] [address] [place], [address] Glucose [Mass/Vol] 139 mg/dL High 70-99 [facility] Comment on above: Performed By: #### L 501.2300, L501.5200, L500.4050, L100.0100 ####[facility] [address] [place], [address] Potassium [Moles/Vol] 3.5 mmol/L Normal 3.3-5.1 [facility] Comment on above: Performed By: #### L 501.2300, L501.5200, L500.4050, L100.0100 ####[facility] [address] [place], [address] Sodium [Moles/Vol] 140 mmol/L Normal 133-145 [facility] Comment on above: Performed By: #### L 501.2300, L501.5200, L500.4050, L100.0100 ####[facility] [address] [place], [address] T BILI < 0.15 Normal 0.00-1.30 [facility] Comment on above: Performed By: #### L 501.2300, L501.5200, L500.4050, L100.0100 ####[facility] [address] [place], [address] T PROT 5.9 g/dL Normal 5.9-8.4 [facility] Comment on above: Performed By: #### L 501.2300, L501.5200, L500.4050, L100.0100 ####[facility] [address] [place], [address] Urea nitrogen [Mass/Vol] 15 mg/dL Normal 4-19 [facility] Comment on above: Performed By: #### L 501.2300, L501.5200, L500.4050, L100.0100 ####[facility] [address] [place], [address] Consultation - Infectious Dx on 11-04-2024 Consultation - Infectious Dx Normal [facility] Electrocardiogram reportOrde red By: Hetal Carrington on 11-04-2024 EKG study [facility] [address] [place] [address] 12 Lead EKG 11/03/24 1226 MR#: [id number] Acct: [id number] Name: BAUTISTA RUFFIN Rep #:[id number] : 1960 64 From: Hetal live MD Attending Dr: Dr. Adan Schneider, DO Status: ADM SERGIO Ordering Dr: Alma Rosa Pedroza DO Date: 01/20 Location[place] [facility] [place] Sex: M C Admitted: 11/03/24 Test Reason : Blood Pressure : */* mmHG Vent. Rate : 70 BPM Atrial Rate : 70 BPM P-R Int : 158 ms QRS Dur : 94 ms QT Int : 422 ms P-R-T Axes : 49 65 78 degrees QTcB Int : 455 ms Normal sinus rhythm Normal ECG Confirmed by Hetal Carrington ([id number]), editorial specialist AMADO RASHID ([id number]) on 11/04/2024 9:37:41 AM Referred By: Confirmed By: Hetal Carrington 11/04/24 0937 Date _ Hetal Carrington MD CC: Dr. Adan Schneider, DO; Dr. Alma Rosa Pedroza, DO; [facility] ~ Signed [facility] Other Phone: Eosinophil percentageOrdered By: Milady Tilley on 11-04-2024 Eosinophils/100 WBC (Bld) 2.6 % 0-5 [facility] Erythrocyte distribution wid th ratioOrdered By: Milady Tilley on 11-04-2024 Erythrocyte distribution width (RBC) [Ratio] 18.0 % High 11.6-14.6 [facility] Erythrocyte distribution wid th standard deviationOrdered By: Milady Tilley on 11-04-2024 Erythrocyte distribution width (RBC) [Ratio] 51.3 fl High 35.1-43.9 [facility] Glomerular filtration rate ( GFR) estimation/1.73 sq m using serum, plasma, or whole bOrdered By: Milady Tilley on 11-04-2024 GFR/1.73 sq M.predicted among non-blacks MDRD (S/P/Bld) [Vol rate/Area] 104 mL/min/{1.73_m2} >60 [facility] Comment on above: mL/min/1.73m2 CKD-EP I Creatinine Equation (2020) Hematocrit Auto (Bld) [Volum e fraction]Ordered By: Milady Tilley on 11-04-2024 Hematocrit (Bld) [Volume fraction] 34.3 % Low 40-54 [facility] Hemoglobin measurementOrdere d By: Milady Tilley on 11-04-2024 Hemoglobin (Bld) [Mass/Vol] 10.9 g/dL Low 13.0-16. 5 [facility] Immature granulocytes/100 WB C Auto (Bld)Ordered By: Milady Tilley on 11-04-2024 Immature granulocytes/100 WBC (Bld) 0.300 % 0.0-0.9 [facility] Comment on above: IG% - Immature Granu locytes (promyelocytes, myelocytes and metamyelocytes) > 1% indicates that a LEFT SHIFT is Present. Laboratory - Chemistry and C hemistry - challengeOrdered By: Milady Tilley on 11-04-2024 AST [Catalytic activity/Vol] 14 U/L <38 [facility] MCV (mean corpuscular volume ) determinationOrdered By: Milady Tilley on 11-04-2024 MCV (RBC) [Entitic vol] 78.3 fL Low 80-94 [facility] Magnesiumon 11-04-2024 Magnesium [Mass/Vol] 1.9 mg/dL Normal 1.5-2.2 [facility] Comment on above: Performed By: #### L 501.2300, L501.5200, L500.4050, L100.0100 ####[facility] [address] [place], [address] Magnesium measurement (mass/ volume)Ordered By: Milady Tilley on 11-04-2024 Magnesium (Unsp spec) [Mass/Vol] 1.9 mg/dL 1.5-2.2 [facility] Mean corpuscular hemoglobin (MCH) determinationOrdered By: Milady Tilley on 11-04-2024 MCH (RBC) [Entitic mass] 24.9 pg Low 27.0-32.0 [facility] Mean corpuscular hemoglobin concentration (MCHC) determinationOrdered By: Milady Tilley on 11-04-2024 MCHC (RBC) [Mass/Vol] 31.8 g/dL Low 32-36 [facility] Mean platelet volume determi nationOrdered By: Milady Tilley on 11-04-2024 Platelet mean volume (Bld) [Entitic vol] 9.0 fL 6.2-12.0 [facility] Monocyte percentageOrdered B y: Milady Tilley on 11-04-2024 Monocytes/100 WBC (Bld) 11.7 % High 0-10 [facility] Neutrophil percentageOrdered By: Milady Tilley on 11-04-2024 Neutrophils/100 WBC (Bld) 59.7 % 47-70 [facility] Nucleated red blood cell per centageOrdered By: Milady Tilley on 11-04-2024 Nucleated RBC/100 WBC (Bld) [Ratio] 0 % 0-5 [facility] Phosphoruson 11-04-2024 Phosphate [Mass/Vol] 3.1 mg/dL Normal 2.7-4.5 [facility] Comment on above: Performed By: #### L 501.2300, L501.5200, L500.4050, L100.0100 ####[facility] [address] [place], [address] Platelet countOrdered By: Kaitlyn Tilley on 11-04-2024 Platelets (Bld) [#/Vol] 297 10*3/uL 150-450 [facility] Potassium measurement (mass/ volume)Ordered By: Milady Tilley on 11-04-2024 Potassium (Unsp spec) [Mass/Vol] 3.5 mmol/L 3.3-5.1 [facility] RBC Auto (Bld) [#/Vol]Ordere d By: Milady Tilley on 11-04-2024 RBC (Bld) [#/Vol] 4.38 10*6/uL Low 4.6-6.2 [facility] Serum creatinine measurement (mass/volume)Ordered By: Milady Tilley on 11-04-2024 Creatinine [Mass/Vol] 0.68 mg/dL Low 0.70-1.20 [facility] Serum globulin measurementOr dered By: Milady Tilley on 11-04-2024 Globulin (S) [Mass/Vol] 3.1 g/dL 2.2-4.2 [facility] Serum glucose measurement (m ass/volume)Ordered By: Milady Tilley on 11-04-2024 Glucose [Mass/Vol] 139 mg/dL High 70-99 [facility] Serum or plasma alanine hooper otransferase (ALT) measurementOrdered By: Milady Tilley on 11-04-2024 ALT [Catalytic activity/Vol] 6 U/L <47 [facility] Serum or plasma albumin shantal urement (mass/volume)Ordered By: Milady Tilley on 11-04-2024 Albumin [Mass/Vol] 2.7 g/dL Low 3.4-4.8 [facility] Serum or plasma albumin/glob ulin mass ratioOrdered By: Milady Tilley on 11-04-2024 Albumin/Globulin [Mass ratio] 0.9 {ratio} 0.9-2.4 [facility] Serum or plasma alkaline radha sphatase measurementOrdered By: Milady Tilley on 11-04-2024 ALP [Catalytic activity/Vol] 108 U/L 40-129 [facility] Serum or plasma calcium shantal urement (mass/volume)Ordered By: Milady Tilley on 11-04-2024 Calcium [Mass/Vol] 8.4 mg/dL 7.6-11.0 [facility] Serum or plasma urea nitroge n measurement (mass/volume)Ordered By: Milady Tilley on 11-04-2024 Urea nitrogen [Mass/Vol] 15 mg/dL 4-19 [facility] Sodium levelOrdered By: Cleo Tilley on 11-04-2024 Sodium [Moles/Vol] 140 mmol/L 133-145 [facility] Total proteinOrdered By: Yumi Tilley on 11-04-2024 Protein [Mass/Vol] 5.9 g/dL 5.9-8.4 [facility] Urine Cultureon 11-04-2024 URC Normal [facility] Comment on above: Performed By: #### M 100.2200, L400.0001 ####[facility] [address] [place], [address] White blood cell (WBC) count Ordered By: Milady Tilley on 11-04-2024 WBC (Bld) [#/Vol] 7.7 10*3/uL 4.4-11.0 [facility] 12 Lead EKGon 11-03-2024 12 Lead EKG Normal [facility] Abdomen/Pelvis W IV Cont ONL Yon 11-03-2024 Abdomen/Pelvis W IV Cont ONLY Normal [facility] Absolute lymphocyte countOrd ered By: Remus Ungelizabeth on 11-03-2024 Lymphocytes Auto (Unsp spec) [#/Vol] 2.10 10*3/uL 0.83-4.51 [facility] Absolute neutrophil countOrd ered By: Remus Ungur on 11-03-2024 Neutrophils (Bld) [#/Vol] 6.5 10*3/uL 2.0-7.7 [facility] Anion gap in Serum or Plasma Ordered By: Remus Ungur on 11-03-2024 Anion gap [Moles/Vol] 12 mmol/L 5-15 [facility] Automated lymphocyte count a s percentage of total leukocytesOrdered By: Remus Ungelizabeth on 11-03-2024 Lymphocytes/100 WBC Auto (Unsp spec) 22.5 % 19-41 [facility] BUN/creatinine ratioOrdered By: Remus Ungur on 11-03-2024 Urea nitrogen/Creatinine [Mass ratio] 21.4 mg/mg High 10-20 [facility] Basophil percentageOrdered B y: Remus Ungur on 11-03-2024 Basophils/100 WBC (Bld) 0.3 % 0-1 [facility] Bilirubin, totalOrdered By: Remus Ungelizabeth on 11-03-2024 Bilirubin [Mass/Vol] 0.24 mg/dL 0.00-1.30 [facility] CBC W/Diff, Automatedon Absolute Lymph 2.10 X10 3/uL Normal 0.83-4.51 [facility] Comment on above: Performed By: #### L 503.6005, L500.4050, L100.0100, L501.2450, L501.4021 ####[facility] [address] [place], [address] Absolute Neut 6.5 X10 3/uL Normal 2.0-7.7 [facility] Comment on above: Performed By: #### L 503.6005, L500.4050, L100.0100, L501.2450, L501.4021 ####[facility] [address] [place], [address] Basophils/100 WBC (Bld) 0.3 % Normal 0-1 [facility] Comment on above: Performed By: #### L 503.6005, L500.4050, L100.0100, L501.2450, L501.4021 ####[facility] [address] [place], [address] Eosinophils/100 WBC (Bld) 0.9 % Normal 0-5 [facility] Comment on above: Performed By: #### L 503.6005, L500.4050, L100.0100, L501.2450, L501.4021 ####[facility] [address] [place], [address] Erythrocyte distribution width (RBC) [Ratio] 18.3 % High 11.6-14.6 [facility] Comment on above: Performed By: #### L 503.6005, L500.4050, L100.0100, L501.2450, L501.4021 ####[facility] [address] [place], [address] Hematocrit (Bld) [Volume fraction] 42.4 % Normal 40-54 [facility] Comment on above: Performed By: #### L 503.6005, L500.4050, L100.0100, L501.2450, L501.4021 ####[facility] [address] [place], [address] Hemoglobin (Bld) [Mass/Vol] 13.5 g/dL Normal 13.0-16. 5 [facility] Comment on above: Performed By: #### L 503.6005, L500.4050, L100.0100, L501.2450, L501.4021 ####[facility] [address] [place], [address] IG% 0.200 Normal 0.0-0.9 [facility] Comment on above: Result Comment: IG% - Immature Granulocytes (promyelocytes, myelocytes andmetamyelocytes) > 1% indicates that a LEFT SHIFT is Present. Performed By: #### L 503.6005, L500.4050, L100.0100, L501.2450, L501.4021 ####[facility] [address] [place], [address] Lymphocytes/100 WBC (Bld) 22.5 % Normal 19-41 [facility] Comment on above: Performed By: #### L 503.6005, L500.4050, L100.0100, L501.2450, L501.4021 ####[facility] [address] [place], [address] MCH (RBC) [Entitic mass] 25.0 pg Low 27.0-32.0 [facility] Comment on above: Performed By: #### L 503.6005, L500.4050, L100.0100, L501.2450, L501.4021 ####[facility] [address] [place], [address] MCHC (RBC) [Mass/Vol] 31.8 g/dL Low 32-36 [facility] Comment on above: Performed By: #### L 503.6005, L500.4050, L100.0100, L501.2450, L501.4021 ####[facility] [address] [place], [address] MCV (RBC) [Entitic vol] 78.7 fL Low 80-94 [facility] Comment on above: Performed By: #### L 503.6005, L500.4050, L100.0100, L501.2450, L501.4021 ####[facility] [address] [place], [address] Monocytes/100 WBC (Bld) 6.7 % Normal 0-10 [facility] Comment on above: Performed By: #### L 503.6005, L500.4050, L100.0100, L501.2450, L501.4021 ####[facility] [address] [place], [address] Neutrophils/100 WBC (Bld) 69.4 % Normal 47-70 [facility] Comment on above: Performed By: #### L 503.6005, L500.4050, L100.0100, L501.2450, L501.4021 ####[facility] [address] [place], [address] Nucleated RBC (Bld) [#/Vol] 0 10*3/uL Normal 0-5 [facility] Comment on above: Performed By: #### L 503.6005, L500.4050, L100.0100, L501.2450, L501.4021 ####[facility] [address] [place], [address] Platelet mean volume (Bld) [Entitic vol] 9.0 fL Normal 6.2-12.0 [facility] Comment on above: Performed By: #### L 503.6005, L500.4050, L100.0100, L501.2450, L501.4021 ####[facility] [address] [place], [address] Platelets (Bld) [#/Vol] 364 10*3/uL Normal 150-450 [facility] Comment on above: Performed By: #### L 503.6005, L500.4050, L100.0100, L501.2450, L501.4021 ####[facility] [address] [place], [address] RBC (Bld) [#/Vol] 5.39 10*6/uL Normal 4.6-6.2 [facility] Comment on above: Performed By: #### L 503.6005, L500.4050, L100.0100, L501.2450, L501.4021 ####[facility] [address] [place], [address] RDW SD 50.6 fl High 35.1-43.9 [facility] Comment on above: Performed By: #### L 503.6005, L500.4050, L100.0100, L501.2450, L501.4021 ####[facility] [address] [place], [address] WBC (Bld) [#/Vol] 9.3 10*3/uL Normal 4.4-11.0 [facility] Comment on above: Performed By: #### L 503.6005, L500.4050, L100.0100, L501.2450, L501.4021 ####[facility] [address] [place], [address] Carbon dioxide, total [Moles /volume] in Central venous bloodOrdered By: Alma Rosa Pedroza on 11-03-2024 CO2 [Moles/Vol] 25.7 mmol/L 21.0-32.0 [facility] Chest 1 View (Portable)on Chest 1 View (Portable) Normal [facility] Chloride assayOrdered By: Julia Pedroza on 11-03-2024 Chloride [Moles/Vol] 101 mmol/L 98-108 [facility] Comprehensive Metabolic Prof ilon 11-03-2024 Albumin [Mass/Vol] 3.4 g/dL Normal 3.4-4.8 [facility] Comment on above: Performed By: #### L 503.6005, L500.4050, L100.0100, L501.2450, L501.4021 ####[facility] [address] [place], [address] Albumin/Globulin [Mass ratio] 0.8 {ratio} Low 0.9-2.4 [facility] Comment on above: Performed By: #### L 503.6005, L500.4050, L100.0100, L501.2450, L501.4021 ####[facility] [address] [place], [address] ALK PHOS 141 U/L High 40-129 [facility] Comment on above: Performed By: #### L 503.6005, L500.4050, L100.0100, L501.2450, L501.4021 ####[facility] [address] [place], [address] ALT [Catalytic activity/Vol] 8 U/L Normal <=46 [facility] Comment on above: Performed By: #### L 503.6005, L500.4050, L100.0100, L501.2450, L501.4021 ####[facility] [address] [place], [address] AST [Catalytic activity/Vol] 16 U/L Normal <=37 [facility] Comment on above: Performed By: #### L 503.6005, L500.4050, L100.0100, L501.2450, L501.4021 ####[facility] [address] [place], [address] Bilirubin [Mass/Vol] 0.24 mg/dL Normal 0.00-1.30 [facility] Comment on above: Performed By: #### L 503.6005, L500.4050, L100.0100, L501.2450, L501.4021 ####[facility] [address] [place], [address] BUN/CRE 21.4 RATIO High 10-20 [facility] Comment on above: Performed By: #### L 503.6005, L500.4050, L100.0100, L501.2450, L501.4021 ####[facility] [address] [place], [address] Calcium [Mass/Vol] 9.5 mg/dL Normal 7.6-11.0 [facility] Comment on above: Performed By: #### L 503.6005, L500.4050, L100.0100, L501.2450, L501.4021 ####[facility] [address] [place], [address] Chloride [Moles/Vol] 101 mmol/L Normal 98-108 [facility] Comment on above: Performed By: #### L 503.6005, L500.4050, L100.0100, L501.2450, L501.4021 ####[facility] [address] [place], [address] CO2 [Moles/Vol] 25.7 mmol/L Normal 21.0-32.0 [facility] Comment on above: Performed By: #### L 503.6005, L500.4050, L100.0100, L501.2450, L501.4021 ####[facility] [address] [place], [address] Creatinine [Mass/Vol] 0.65 mg/dL Low 0.70-1.20 [facility] Comment on above: Performed By: #### L 503.6005, L500.4050, L100.0100, L501.2450, L501.4021 ####[facility] [address] [place], [address] ECRCL 122.02 ml/min Normal 50-250 [facility] Comment on above: Performed By: #### L 503.6005, L500.4050, L100.0100, L501.2450, L501.4021 ####[facility] [address] [place], [address] GAP 12 Normal 5-15 [facility] Comment on above: Performed By: #### L 503.6005, L500.4050, L100.0100, L501.2450, L501.4021 ####[facility] [address] [place], [address] GFR/1.73 sq M.predicted among non-blacks MDRD (S/P/Bld) [Vol rate/Area] 106 mL/min/{1.73_m2} Normal >[address] [facility] Comment on above: Result Comment: mL/m in/1.73m2 CKD-EPI Creatinine Equation (2020) Performed By: #### L 503.6005, L500.4050, L100.0100, L501.2450, L501.4021 ####[facility] [address] [place], [address] Globulin (S) [Mass/Vol] 4.1 g/dL Normal 2.2-4.2 [facility] Comment on above: Performed By: #### L 503.6005, L500.4050, L100.0100, L501.2450, L501.4021 ####[facility] [address] [place], [address] Glucose [Mass/Vol] 101 mg/dL High 70-99 [facility] Comment on above: Performed By: #### L 503.6005, L500.4050, L100.0100, L501.2450, L501.4021 ####[facility] [address] [place], [address] Potassium [Moles/Vol] 3.9 mmol/L Normal 3.3-5.1 [facility] Comment on above: Performed By: #### L 503.6005, L500.4050, L100.0100, L501.2450, L501.4021 ####[facility] [address] [place], [address] Sodium [Moles/Vol] 139 mmol/L Normal 133-145 [facility] Comment on above: Performed By: #### L 503.6005, L500.4050, L100.0100, L501.2450, L501.4021 ####[facility] [address] [place], [address] T PROT 7.5 g/dL Normal 5.9-8.4 [facility] Comment on above: Performed By: #### L 503.6005, L500.4050, L100.0100, L501.2450, L501.4021 ####[facility] [address] [place], [address] Urea nitrogen [Mass/Vol] 14 mg/dL Normal 4-19 [facility] Comment on above: Performed By: #### L 503.6005, L500.4050, L100.0100, L501.2450, L501.4021 ####[facility] [address] [place], [address] Eosinophil percentageOrdered By: Alma Rosa Pedroza on 11-03-2024 Eosinophils/100 WBC (Bld) 0.9 % 0-5 [facility] Erythrocyte distribution wid th ratioOrdered By: Alma Rosa Pedroza on 11-03-2024 Erythrocyte distribution width (RBC) [Ratio] 18.3 % High 11.6-14.6 [facility] Erythrocyte distribution wid th standard deviationOrdered By: Ewing Kasia on 11-03-2024 Erythrocyte distribution width (RBC) [Ratio] 50.6 fl High 35.1-43.9 [facility] Glomerular filtration rate ( GFR) estimation/1.73 sq m using serum, plasma, or whole bOrdered By: Alma Rosa Pedroza on 11-03-2024 GFR/1.73 sq M.predicted among non-blacks MDRD (S/P/Bld) [Vol rate/Area] 106 mL/min/{1.73_m2} >60 [facility] Comment on above: mL/min/1.73m2 CKD-EP I Creatinine Equation (2020) H AND P Exam - Hospitaliston 11-03-2024 H&P Exam - Hospitalist Normal [facility] Hematocrit Auto (Bld) [Volum e fraction]Ordered By: Alma Rosa Pedroza on 11-03-2024 Hematocrit (Bld) [Volume fraction] 42.4 % 40-54 [facility] Hemoglobin measurementOrdere d By: Alma Rosa Pedroza on 11-03-2024 Hemoglobin (Bld) [Mass/Vol] 13.5 g/dL 13.0-16. 5 [facility] Immature granulocytes/100 WB C Auto (Bld)Ordered By: Alma Rosa Pedroza on 11-03-2024 Immature granulocytes/100 WBC (Bld) 0.200 % 0.0-0.9 [facility] Comment on above: IG% - Immature Granu locytes (promyelocytes, myelocytes and metamyelocytes) > 1% indicates that a LEFT SHIFT is Present. L499.0042on 11-03-2024 Trop T High Sen 26 ng/L High <=22 [facility] Comment on above: Performed By: #### L 499.0042 ####[facility] [address] [place], [address] L499.0043on 11-03-2024 Trop T High Sen 26 ng/L High <=22 [facility] Comment on above: Performed By: #### L 499.0043 ####[facility] [address] [place], [address] L501.4021on 11-03-2024 Trop T High Sen 27 ng/L High <=22 [facility] Comment on above: Performed By: #### L 503.6005, L500.4050, L100.0100, L501.2450, L501.4021 ####[facility] [address] [place], [address] Laboratory - Chemistry and C hemistry - challengeOrdered By: Alma Rosa Pedroza on 11-03-2024 AST [Catalytic activity/Vol] 16 U/L <38 [facility] Lactic Acidon 11-03-2024 Lactate [Moles/Vol] 1.3 mmol/L Normal 0.0-2.0 [facility] Comment on above: Order Comment: Y Performed By: #### L 503.6005, L500.4050, L100.0100, L501.2450, L501.4021 ####[facility] [address] [place], [address] Lactic acid measurementOrder ed By: Alma Rosa Pedroza on 11-03-2024 Lactate [Moles/Vol] 1.3 mmol/L 0.0-2.0 [facility] Lipaseon 06-08-2025 Lipase [Catalytic activity/Vol] 17 U/L Normal 13-75 [facility] Comment on above: Result Comment: Siri anaya note:LIPASE revised reference range effective 22.New Lipase methodology. Expected to produce lower valuesthan the previous assay method.NEW Reference Range: 13 - 75 U/L Performed By: #### L 503.6005, L500.4050, L100.0100, L501.2450, L501.4021 ####[facility] [address] [place], [address] Lipase measurementOrdered By : Remus Ungur on 11-03-2024 Lipase [Catalytic activity/Vol] 17 U/L 13-75 [facility] Comment on above: Please note:LIPASE r evised reference range effective 22. New Lipase methodology. Expected to produce lower values than the previous assay method. NEW Reference Range: 13 - 75 U/L MCV (mean corpuscular volume ) determinationOrdered By: Remus Ungelizabeth on 11-03-2024 MCV (RBC) [Entitic vol] 78.7 fL Low 80-94 [facility] Mean corpuscular hemoglobin (MCH) determinationOrdered By: Remus Ungur on 11-03-2024 MCH (RBC) [Entitic mass] 25.0 pg Low 27.0-32.0 [facility] Mean corpuscular hemoglobin concentration (MCHC) determinationOrdered By: Remus Ungur on 11-03-2024 MCHC (RBC) [Mass/Vol] 31.8 g/dL Low 32-36 [facility] Mean platelet volume determi nationOrdered By: Remus Ungur on 11-03-2024 Platelet mean volume (Bld) [Entitic vol] 9.0 fL 6.2-12.0 [facility] Monocyte percentageOrdered B y: Remus Ungur on 11-03-2024 Monocytes/100 WBC (Bld) 6.7 % 0-10 [facility] Neutrophil percentageOrdered By: Remus Ungur on 11-03-2024 Neutrophils/100 WBC (Bld) 69.4 % 47-70 [facility] Nucleated red blood cell per centageOrdered By: Remus Ungur on 11-03-2024 Nucleated RBC/100 WBC (Bld) [Ratio] 0 % 0-5 [facility] Platelet countOrdered By: Julia palma Kasia on 11-03-2024 Platelets (Bld) [#/Vol] 364 10*3/uL 150-450 [facility] Potassium measurement (mass/ volume)Ordered By: Alma Rosa Pedroza on 11-03-2024 Potassium (Unsp spec) [Mass/Vol] 3.9 mmol/L 3.3-5.1 [facility] RBC Auto (Bld) [#/Vol]Ordere d By: Alma Rosa Pedroza on 11-03-2024 RBC (Bld) [#/Vol] 5.39 10*6/uL 4.6-6.2 [facility] Serum creatinine measurement (mass/volume)Ordered By: Alma Rosa Pedroza on 11-03-2024 Creatinine [Mass/Vol] 0.65 mg/dL Low 0.70-1.20 [facility] Serum globulin measurementOr dered By: Alma Rosa Pedroza on 11-03-2024 Globulin (S) [Mass/Vol] 4.1 g/dL 2.2-4.2 [facility] Serum glucose measurement (m ass/volume)Ordered By: Alma Rosa Pedroza on 11-03-2024 Glucose [Mass/Vol] 101 mg/dL High 70-99 [facility] Serum or plasma alanine hooper otransferase (ALT) measurementOrdered By: Alma Rosa Pedroza on 11-03-2024 ALT [Catalytic activity/Vol] 8 U/L <47 [facility] Serum or plasma albumin shantal urement (mass/volume)Ordered By: Alma Rosa Pedroza on 11-03-2024 Albumin [Mass/Vol] 3.4 g/dL 3.4-4.8 [facility] Serum or plasma albumin/glob ulin mass ratioOrdered By: Alma Rosa Pedroza on 11-03-2024 Albumin/Globulin [Mass ratio] 0.8 {ratio} Low 0.9-2.4 [facility] Serum or plasma alkaline radha sphatase measurementOrdered By: Alma Rosa Pedroza on 11-03-2024 ALP [Catalytic activity/Vol] 141 U/L High 40-129 [facility] Serum or plasma calcium shantal urement (mass/volume)Ordered By: Alma Rosa Sheehanelizabeth on 11-03-2024 Calcium [Mass/Vol] 9.5 mg/dL 7.6-11.0 [facility] Serum or plasma urea nitroge n measurement (mass/volume)Ordered By: Alma Rosa Sheehanelizabeth on 11-03-2024 Urea nitrogen [Mass/Vol] 14 mg/dL 4-19 [facility] Sodium levelOrdered By: Derek pablo Kasia on 11-03-2024 Sodium [Moles/Vol] 139 mmol/L 133-145 [facility] Total proteinOrdered By: Marquita us Sissyelizabeth on 11-03-2024 Protein [Mass/Vol] 7.5 g/dL 5.9-8.4 [facility] Troponin T.cardiac [Mass/vol ume] in Serum or Plasma by High sensitivity methodOrdered By: Alma Rosa Sheehanelizabeth on 11-03-2024 Troponin T.cardiac High sensitivity method [Mass/Vol] 26 ng/L High <22 [facility] Troponin T.cardiac High sensitivity method [Mass/Vol] 26 ng/L High <22 [facility] Troponin T.cardiac High sensitivity method [Mass/Vol] 27 ng/L High <22 [facility] White blood cell (WBC) count Ordered By: Alma Rosa Kasia on 11-03-2024 WBC (Bld) [#/Vol] 9.3 10*3/uL 4.4-11.0 [facility] Amorphous sediment detection in urine sediment by light microscopyOrdered By: Zhang Chavez on 11-01-2024 Amorphous sediment LM Ql (Urine sed) 1+ [facility] Bilirubin Test strip Ql (U)O rdered By: Zhang Chavez on 11-01-2024 Bilirubin Ql (U) Negative Negative [facility] Emergency Department Summary on 11-01-2024 Emergency Department Summary Normal [facility] Ketones Test strip Ql (U)Ord ered By: Zhang Chavez on 11-01-2024 Ketones Ql (U) Negative Negative [facility] Microscopic analysis of urin e for red blood cells (RBC)Ordered By: Zhang Chavez on 11-01-2024 Microscopic analysis of urine for red blood cells (RBC) 0 SEEN /hpf 0-5 [facility] Mucus LM Ql (Urine sed)Order ed By: Zhang Chavez on 11-01-2024 Mucus Ql (Urine sed) 0 SEEN /hpf [facility] Nitrite Test strip Ql (U)Ord ered By: Zhang Chavez on 11-01-2024 Nitrite Ql (U) Positive High Negative [facility] Protein Test strip Ql (U)Ord ered By: Zhang Chavez on 11-01-2024 Protein Ql (U) 100 mg/dl High Negative [facility] Squamous epithelial cells de tection in urine sediment by light microscopyOrdered By: Zhang Chavez on 11-01-2024 Epithelial cells.squamous LM Ql (Urine sed) 0 SEEN /hpf 0-5 [facility] Urinalysis, Completeon 11-01 WBC 0-5 SEEN Normal 0-5 [facility] Comment on above: Order Comment: GOOD TER SPECIMEN Performed By: #### M 100.2200, L400.0001 ####[facility] [address] [place], [address] AMORPHOUS 1+ Normal [facility] Comment on above: Order Comment: GOOD TER SPECIMEN Performed By: #### M 100.2200, L400.0001 ####[facility] [address] [place], [address] BACTERIA 0 SEEN Normal None Seen [facility] Comment on above: Order Comment: GOOD TER SPECIMEN Performed By: #### M 100.2200, L400.0001 ####[facility] [address] [place], [address] EPI,SQUAMOUS 0 SEEN Normal 0-5 [facility] Comment on above: Order Comment: GOOD TER SPECIMEN Performed By: #### M 100.2200, L400.0001 ####[facility] [address] [place], [address] Mucus Ql (Urine sed) 0 SEEN Normal [facility] Comment on above: Order Comment: GOOD TER SPECIMEN Performed By: #### M 100.2200, L400.0001 ####[facility] [address] [place], [address] RBC 0 SEEN Normal 0-5 [facility] Comment on above: Order Comment: GOOD TER SPECIMEN Performed By: #### M 100.2200, L400.0001 ####[facility] [address] [place], [place], [address] Urine clarityOrdered By: Terell Chavez on 11-01-2024 Clarity (U) Clear Clear [facility] Urine color determinationOrd ered By: Zhang Chavez on 11-01-2024 Color (U) Yellow Yellow [facility] Urine cultureOrdered By: Terell Chavez on 11-01-2024 Bacteria identified Cx Nom (U) Pseudomonas aeruginosa Abnormal [facility] Urine glucose detectionOrder ed By: Zhang Chavez on 11-01-2024 Glucose Ql (U) Normal mg/dl Normal [facility] Urine leukocyte esterase det ection by dipstickOrdered By: Zhang Chavez on 11-01-2024 Leukocyte esterase Test strip Ql (U) 500 /ul High Negative [facility] Urine pHOrdered By: Zhang Chavez on 11-01-2024 pH (U) 6.0 [pH] 5.0 - 8.0 [facility] Urine sediment bacteria coun t by microscopy (number/high power field)Ordered By: Zhang Chavez on 11-01-2024 Bacteria LM.HPF (Urine sed) [#/Area] 0 /[HPF] None Seen [facility] Urine specific gravity measu rementOrdered By: Zhang Chavez on 11-01-2024 Specific gravity (U) [Rel density] 1.020 1.002-1.03 0 [facility] Urine urobilinogen measureme ntOrdered By: Zhang Chavez on 11-01-2024 Urobilinogen Ql (U) Normal mg/dl Normal [facility] White blood cell countOrdere d By: Zhang Chavez on 11-01-2024 White blood cell count 0-5 SEEN /hpf 0-5 [facility] Culture, Blood (WB)on 2024 CUB Blood cultures x2, from two different sites No growth in 5 days. Normal [facility] Comment on above: Performed By: #### L 100.0100, L300.3900, L300.4310, M200.1000, L500.4050, L503.6005 ####[facility] [address] [place], [address] Urine Cultureon 09-14-2024 URC Normal [facility] Comment on above: Performed By: #### M 100.2000, M100.2200, M100.3000, L400.0001 ####[facility] [address] [place], [address] Wound Cultureon 09-14-2024 WC Normal [facility] Comment on above: Performed By: #### M 100.2000, M100.2200, M100.3000, L400.0001 ####[facility] [address] [place], [address] Gram Stainon 09-12-2024 GS Positive Normal [facility] Comment on above: Performed By: #### M 100.2000, M100.2200, M100.3000, L400.0001 ####[facility] [address] [place], [address] Absolute lymphocyte countOrd ered By: Alex Sheppard on 09-11-2024 Lymphocytes Auto (Unsp spec) [#/Vol] 2.40 10*3/uL 0.83-4.51 [facility] Absolute neutrophil countOrd ered By: Alex Sheppard on 09-11-2024 Neutrophils (Bld) [#/Vol] 7.6 10*3/uL 2.0-7.7 [facility] Activated partial thrombopla stin time (aPTT) in platelet poor plasma by coagulation aOrdered By: Alex Sheppard on 09-11-2024 aPTT Coag (Bld) [Time] 49.7 s High 24.1-36.2 [facility] Comment on above: Performed By: #### L 100.0100, L300.3900, L300.4310, M200.1000, L500.4050, L503.6005 ####[facility] [address] [place], [place], [id number] aPTT Coag (PPP) [Time] 49.7 s High 24.1-36.2 [facility] Anion gap in Serum or Plasma Ordered By: Alex Sheppard on 09-11-2024 Anion gap [Moles/Vol] 9 mmol/L 5-15 [facility] Automated blood erythrocyte countOrdered By: Alex Sheppard on 09-11-2024 RBC (Bld) [#/Vol] 5.05 10*6/uL Normal 4.6-6.2 [facility] Comment on above: Performed By: #### L 100.0100, L300.3900, L300.4310, M200.1000, L500.4050, L503.6005 ####[facility] [address] [place], [address] Automated blood hematocrit ( percentage)Ordered By: Alex Sheppard on 09-11-2024 Hematocrit (Bld) [Volume fraction] 40.9 % Normal 40-54 [facility] Comment on above: Performed By: #### L 100.0100, L300.3900, L300.4310, M200.1000, L500.4050, L503.6005 ####[facility] [address] [place], [address] Automated lymphocyte count a s percentage of total leukocytesOrdered By: Alex Sheppard on 09-11-2024 Lymphocytes/100 WBC (Bld) 20.8 % Normal 19-41 [facility] Comment on above: Performed By: #### L 100.0100, L300.3900, L300.4310, M200.1000, L500.4050, L503.6005 ####[facility] [address] [place], [address] Lymphocytes/100 WBC Auto (Unsp spec) 20.8 % - [facility] BUN/creatinine ratioOrdered By: Alex Sheppard on 09-11-2024 Urea nitrogen/Creatinine [Mass ratio] 19.5 mg/mg 10-20 [facility] Basophil percentageOrdered B y: Alex Silver on 09-11-2024 Basophils/100 WBC (Bld) 0.4 % Normal 0-1 [facility] Comment on above: Performed By: #### L 100.0100, L300.3900, L300.4310, M200.1000, L500.4050, L503.6005 ####[facility] [address] [place], [place], [address] Bilirubin Test strip Ql (U)O rdered By: Alex Sheppard on 09-11-2024 Bilirubin Ql (U) Negative Negative [facility] Bilirubin, totalOrdered By: Alex Sheppard on 09-11-2024 Bilirubin [Mass/Vol] mg/dL 0.00-1.30 [facility] Blood cultureOrdered By: Luz Sheppard on 09-11-2024 Bacteria identified Cx Nom (Bld) No growth in 5 days. [facility] CBC W/Diff, Automatedon 04 Absolute Lymph 2.40 X10 3/uL Normal 0.83-4.51 [facility] Comment on above: Performed By: #### L 100.0100, L300.3900, L300.4310, M200.1000, L500.4050, L503.6005 ####[facility] [address] [place], [address] Absolute Neut 7.6 X10 3/uL Normal 2.0-7.7 [facility] Comment on above: Performed By: #### L 100.0100, L300.3900, L300.4310, M200.1000, L500.4050, L503.6005 ####[facility] [address] [place], [place], [id number] IG% 0.400 Normal 0.0-0.9 [facility] Comment on above: Result Comment: IG% - Immature Granulocytes (promyelocytes, myelocytes andmetamyelocytes) > 1% indicates that a LEFT SHIFT is Present. Performed By: #### L 100.0100, L300.3900, L300.4310, M200.1000, L500.4050, L503.6005 ####[facility] [address] [place], [address] Nucleated RBC (Bld) [#/Vol] 0 10*3/uL Normal 0-5 [facility] Comment on above: Performed By: #### L 100.0100, L300.3900, L300.4310, M200.1000, L500.4050, L503.6005 ####[facility] [address] [place], [address] RDW SD 51.1 fl High 35.1-43.9 [facility] Comment on above: Performed By: #### L 100.0100, L300.3900, L300.4310, M200.1000, L500.4050, L503.6005 ####[facility] [address] [place], [address] Calcium oxalate crystals LM Ql (Urine sed)Ordered By: Alex Sheppard on 09-11-2024 Urine Calcium Oxalate Crystals RARE /hpf [facility] Calcium oxalate crystals det ection in urine sediment by light microscopyOrdered By: Alex Sheppard on 09-11-2024 Calcium oxalate crystals LM Ql (Urine sed) RARE /hpf [facility] Carbon dioxide, total [Moles /volume] in Central venous bloodOrdered By: Alex Sheppard on 09-11-2024 CO2 [Moles/Vol] 27.3 mmol/L Normal 21.0-32.0 [facility] Comment on above: Performed By: #### L 100.0100, L300.3900, L300.4310, M200.1000, L500.4050, L503.6005 ####[facility] [address] [place], [address] Chloride assayOrdered By: Ezekiel Sheppard on 09-11-2024 Chloride [Moles/Vol] 103 mmol/L Normal 98-108 [facility] Comment on above: Performed By: #### L 100.0100, L300.3900, L300.4310, M200.1000, L500.4050, L503.6005 ####[facility] [address] [place], [address] Comprehensive Metabolic Prof ilon 09-11-2024 ALK PHOS 146 U/L High 40-129 [facility] Comment on above: Performed By: #### L 100.0100, L300.3900, L300.4310, M200.1000, L500.4050, L503.6005 ####[facility] [address] [place], [address] BUN/CRE 19.5 RATIO Normal 10-20 [facility] Comment on above: Performed By: #### L 100.0100, L300.3900, L300.4310, M200.1000, L500.4050, L503.6005 ####[facility] [address] [place], [address] ECRCL 107.24 ml/min Normal 50-250 [facility] Comment on above: Performed By: #### L 100.0100, L300.3900, L300.4310, M200.1000, L500.4050, L503.6005 ####[facility] [address] [place], [address] GAP 9 Normal 5-15 [facility] Comment on above: Performed By: #### L 100.0100, L300.3900, L300.4310, M200.1000, L500.4050, L503.6005 ####[facility] [address] [place], [address] T BILI < 0.15 Normal 0.00-1.30 [facility] Comment on above: Performed By: #### L 100.0100, L300.3900, L300.4310, M200.1000, L500.4050, L503.6005 ####[facility] [address] [place], [place], [address] T PROT 6.8 g/dL Normal 5.9-8.4 [facility] Comment on above: Performed By: #### L 100.0100, L300.3900, L300.4310, M200.1000, L500.4050, L503.6005 ####[facility] [address] [place], [place], [address] Comprehensive Metabolic Prof ilOrdered By: Alex Sheppard on 09-11-2024 AST [Catalytic activity/Vol] 27 U/L Normal <=37 [facility] Comment on above: Performed By: #### L 100.0100, L300.3900, L300.4310, M200.1000, L500.4050, L503.6005 ####[facility] [address] [place], [place], [address] Emergency Department Summary on 09-11-2024 Emergency Department Summary Normal [facility] Eosinophil percentageOrdered By: Alex Sheppard on 09-11-2024 Eosinophils/100 WBC (Bld) 3.6 % Normal 0-5 [facility] Comment on above: Performed By: #### L 100.0100, L300.3900, L300.4310, M200.1000, L500.4050, L503.6005 ####[facility] [address] [place], [place], [address] Epithelial cells.squamous LM Ql (Urine sed)Ordered By: Alex Sheppard on 09-11-2024 Epithelial cells.squamous LM.HPF (Urine sed) [#/Area] 0 /[HPF] 0-5 [facility] Erythrocyte distribution wid th (RBC) [Ratio]Ordered By: Alex Sheppard on 09-11-2024 Erythrocyte distribution width (RBC) [Entitic vol] 51.1 fL High 35.1-43.9 [facility] Erythrocyte distribution wid th ratioOrdered By: Alex Sheppard on 09-11-2024 Erythrocyte distribution width (RBC) [Ratio] 17.6 % High 11.6-14.6 [facility] Comment on above: Performed By: #### L 100.0100, L300.3900, L300.4310, M200.1000, L500.4050, L503.6005 ####[facility] [address] [place], [place], [address] Erythrocyte distribution wid th standard deviationOrdered By: Alex Sheppard on 09-11-2024 Erythrocyte distribution width (RBC) [Ratio] 51.1 fl High 35.1-43.9 [facility] Estimation of creatinine elzbieta aranceOrdered By: Alex Sheppard on 09-11-2024 Estimated Creatinine Clearance Calc 107.24 ml/min 50-250 [facility] GFR/1.73 sq M.predicted cheyanne g non-blacks MDRD (S/P/Bld) [Vol rate/Area]Ordered By: Alex Sheppard on 09-11-2024 Estimated GFR (MDRD) Non-Af Amer 101 >60 [facility] Comment on above: mL/min/1.73m2 CKD-EP I Creatinine Equation (2020) Glomerular filtration rate ( GFR) estimation/1.73 sq m using serum, plasma, or whole bOrdered By: Alex Sheppard on 09-11-2024 GFR/1.73 sq M.predicted among non-blacks MDRD (S/P/Bld) [Vol rate/Area] 101 mL/min/{1.73_m2} Normal >60 [facility] Comment on above: mL/min/1.73m2 CKD-EP I Creatinine Equation (2020) Result Comment: mL/m in/1.73m2 CKD-EPI Creatinine Equation (2020) Performed By: #### L 100.0100, L300.3900, L300.4310, M200.1000, L500.4050, L503.6005 ####[facility] [address] [place], [address] Glucose Ql (U)Ordered By: Ezekiel Sheppard on 09-11-2024 Urine Glucose (UA) Normal mg/dl Normal [facility] Gram stainOrdered By: Alex jaffe on 09-11-2024 Microscopic observation Gram stain Nom (Unsp spec) [facility] Hemoglobin measurementOrdere d By: Alex Sheppard on 09-11-2024 Hemoglobin (Bld) [Mass/Vol] 13.0 g/dL Normal 13.0-16. 5 [facility] Comment on above: Performed By: #### L 100.0100, L300.3900, L300.4310, M200.1000, L500.4050, L503.6005 ####[facility] [address] [place], [address] Immature granulocytes/100 WB C Auto (Bld)Ordered By: Alex Sheppard on 09-11-2024 Immature granulocytes/100 WBC (Bld) 0.400 % 0.0-0.9 [facility] Comment on above: IG% - Immature Granu locytes (promyelocytes, myelocytes and metamyelocytes) > 1% indicates that a LEFT SHIFT is Present. International normalized rat io (INR) calculationOrdered By: Alex Sheppard on 09-11-2024 INR Coag (Bld) [Relative time] 1.0 {INR} [facility] Ketones Test strip Ql (U)Ord ered By: Alex Sheppard on 09-11-2024 Ketones Ql (U) Negative Negative [facility] Lactic acid measurementOrder ed By: Alex Sheppard on 09-11-2024 Lactate [Moles/Vol] 1.4 mmol/L Normal 0.0-2.0 [facility] Comment on above: Order Comment: Y Performed By: #### L 100.0100, L300.3900, L300.4310, M200.1000, L500.4050, L503.6005 ####[facility] [address] [place], [place], [address] Lymphocytes Auto (Unsp spec) [#/Vol]Ordered By: Alex Sheppard on 04-16-2025 Lymphocytes (Bld) [#/Vol] 2.40 10*3/uL 0.83-4.5 1 [facility] MCV (mean corpuscular volume ) determinationOrdered By: Alex Sheppard on 09-11-2024 MCV (RBC) [Entitic vol] 81.0 fL Normal 80-94 [facility] Comment on above: Performed By: #### L 100.0100, L300.3900, L300.4310, M200.1000, L500.4050, L503.6005 ####[facility] [address] [place], [address] Mean corpuscular hemoglobin (MCH) determinationOrdered By: Alex Sheppard on 09-11-2024 MCH (RBC) [Entitic mass] 25.7 pg Low 27.0-32.0 [facility] Comment on above: Performed By: #### L 100.0100, L300.3900, L300.4310, M200.1000, L500.4050, L503.6005 ####[facility] [address] [facility] [place], [place], [address] Mean corpuscular hemoglobin concentration (MCHC) determinationOrdered By: Alex Sheppard on 09-11-2024 MCHC (RBC) [Mass/Vol] 31.8 g/dL Low 32-36 [facility] Comment on above: Performed By: #### L 100.0100, L300.3900, L300.4310, M200.1000, L500.4050, L503.6005 ####[facility] [address] [facility] [place], [address] Mean platelet volume determi nationOrdered By: Alex hSeppard on 09-11-2024 Platelet mean volume (Bld) [Entitic vol] 8.6 fL Normal 6.2-12.0 [facility] Comment on above: Performed By: #### L 100.0100, L300.3900, L300.4310, M200.1000, L500.4050, L503.6005 ####[facility] [address] [place], [place], [address] Microscopic analysis of urin e for red blood cells (RBC)Ordered By: Alex Sheppard on 09-11-2024 Microscopic analysis of urine for red blood cells (RBC) 0-5 SEEN /hpf 0-5 [facility] Urine RBC 0-5 SEEN /hpf 0-5 [facility] Monocyte percentageOrdered B y: Alex Sheppard on 09-11-2024 Monocytes/100 WBC (Bld) 8.6 % Normal 0-10 [facility] Comment on above: Performed By: #### L 100.0100, L300.3900, L300.4310, M200.1000, L500.4050, L503.6005 ####[facility] [id number] [place], [place], [id number] Mucus LM Ql (Urine sed)Order ed By: Alex Sheppard on 09-11-2024 Mucus Ql (Urine sed) RARE /hpf [facility] Neutrophil percentageOrdered By: Alex Sheppard on 09-11-2024 Neutrophils/100 WBC (Bld) 66.2 % Normal 47-70 [facility] Comment on above: Performed By: #### L 100.0100, L300.3900, L300.4310, M200.1000, L500.4050, L503.6005 ####[facility] [address] [place], [place], [id number] Nitrite Test strip Ql (U)Ord ered By: Alex Sheppard on 09-11-2024 Nitrite Ql (U) Positive High Negative [facility] Nucleated red blood cell per centageOrdered By: Alex Sheppard on 09-11-2024 Nucleated RBC/100 WBC (Bld) [Ratio] 0 % 0-5 [facility] Pelvis WITH IV Contraston Pelvis WITH IV Contrast Normal [facility] Platelet countOrdered By: Ezekiel Sheppard on 09-11-2024 Platelets (Bld) [#/Vol] 371 10*3/uL Normal 150-450 [facility] Comment on above: Performed By: #### L 100.0100, L300.3900, L300.4310, M200.1000, L500.4050, L503.6005 ####[facility] [address] [place], [address] Potassium measurement (mass/ volume)Ordered By: Alex Sheppard on 09-11-2024 Potassium [Moles/Vol] 4.1 mmol/L Normal 3.3-5.1 [facility] Comment on above: Performed By: #### L 100.0100, L300.3900, L300.4310, M200.1000, L500.4050, L503.6005 ####[facility] [address] [place], [address] Potassium (Unsp spec) [Mass/Vol] 4.1 mmol/L 3.3-5.1 [facility] Protein Test strip Ql (U)Ord ered By: Alex Sheppard on 09-11-2024 Protein Ql (U) 15 mg/dl High Negative [facility] Prothrombin Time w/INRon INR Coag (PPP) [Relative time] 1.0 {INR} Normal [facility] Comment on above: Performed By: #### L 100.0100, L300.3900, L300.4310, M200.1000, L500.4050, L503.6005 ####[facility] [address] [place], [address] Prothrombin timeOrdered By: Alex Sheppard on 09-11-2024 PT Coag (PPP) [Time] 13.7 s Normal 11.7-14.9 [facility] Comment on above: Performed By: #### L 100.0100, L300.3900, L300.4310, M200.1000, L500.4050, L503.6005 ####[facility] [address] [place], [address] Serum creatinine measurement (mass/volume)Ordered By: Alex Sheppard on 09-11-2024 Creatinine [Mass/Vol] 0.75 mg/dL Normal 0.70-1.20 [facility] Comment on above: Performed By: #### L 100.0100, L300.3900, L300.4310, M200.1000, L500.4050, L503.6005 ####[facility] [address] [place], [address] Serum globulin measurementOr dered By: Alex Sheppard on 09-11-2024 Globulin (S) [Mass/Vol] 3.9 g/dL Normal 2.2-4.2 [facility] Comment on above: Performed By: #### L 100.0100, L300.3900, L300.4310, M200.1000, L500.4050, L503.6005 ####[facility] [address] [place], [place], [phone] Serum glucose measurement (m ass/volume)Ordered By: Alex Sheppard on 09-11-2024 Glucose [Mass/Vol] 123 mg/dL High 70-99 [facility] Comment on above: Performed By: #### L 100.0100, L300.3900, L300.4310, M200.1000, L500.4050, L503.6005 ####[facility] [address] [place], [place], [phone] Serum or plasma alanine hooper otransferase (ALT) measurementOrdered By: Alex Sheppard on 09-11-2024 ALT [Catalytic activity/Vol] 19 U/L Normal <=46 [facility] Comment on above: Performed By: #### L 100.0100, L300.3900, L300.4310, M200.1000, L500.4050, L503.6005 ####[facility] [address] [place], [place], [phone] Serum or plasma albumin shantal urement (mass/volume)Ordered By: Alex Sheppard on 09-11-2024 Albumin [Mass/Vol] 3.0 g/dL Low 3.4-4.8 [facility] Comment on above: Performed By: #### L 100.0100, L300.3900, L300.4310, M200.1000, L500.4050, L503.6005 ####[facility] [address] [place], [place], [phone] Serum or plasma albumin/glob ulin mass ratioOrdered By: Alex Sheppard on 09-11-2024 Albumin/Globulin [Mass ratio] 0.8 {ratio} Low 0.9-2.4 [facility] Comment on above: Performed By: #### L 100.0100, L300.3900, L300.4310, M200.1000, L500.4050, L503.6005 ####[facility] [address] [place], [address] Serum or plasma alkaline radha sphatase measurementOrdered By: Alex Sheppard on 09-11-2024 ALP [Catalytic activity/Vol] 146 U/L High 40-129 [facility] Serum or plasma calcium shantal urement (mass/volume)Ordered By: Alex Sheppard on 09-11-2024 Calcium [Mass/Vol] 8.9 mg/dL Normal 7.6-11.0 [facility] Comment on above: Performed By: #### L 100.0100, L300.3900, L300.4310, M200.1000, L500.4050, L503.6005 ####[facility] [address] [place], [address] Serum or plasma urea nitroge n measurement (mass/volume)Ordered By: Alex Sheppard on 09-11-2024 Urea nitrogen [Mass/Vol] 15 mg/dL Normal 4-19 [facility] Comment on above: Performed By: #### L 100.0100, L300.3900, L300.4310, M200.1000, L500.4050, L503.6005 ####[facility] [address] [place], [address] Sodium levelOrdered By: Alex Sheppard on 09-11-2024 Sodium [Moles/Vol] 139 mmol/L Normal 133-145 [facility] Comment on above: Performed By: #### L 100.0100, L300.3900, L300.4310, M200.1000, L500.4050, L503.6005 ####[facility] [address] [place], [address] Squamous epithelial cells de tection in urine sediment by light microscopyOrdered By: Alex Sheppard on 09-11-2024 Epithelial cells.squamous LM Ql (Urine sed) 0 SEEN /hpf 0-5 [facility] Total proteinOrdered By: Luz Sheppard on 09-11-2024 Protein [Mass/Vol] 6.8 g/dL 5.9-8.4 [facility] Urinalysis, Completeon 09-11 BACTERIA 2+ /hpf Normal None Seen [facility] Comment on above: Order Comment: GOOD TER SPECIMEN Performed By: #### M 100.1999, M100.2200, M100.3000, L400.0001 ####[facility] [address] [place], [address] CA OX CRYSTAL RARE Normal [facility] Comment on above: Order Comment: GOOD TER SPECIMEN Performed By: #### M 100.1999, M100.2200, M100.3000, L400.0001 ####[facility] [address] [place], [address] Mucus Ql (Urine sed) RARE Normal [facility] Comment on above: Order Comment: GOOD TER SPECIMEN Performed By: #### M 100.1999, M100.2200, M100.3000, L400.0001 ####[facility] [address] [place], [address] RBC 0-5 SEEN Normal 0-5 [facility] Comment on above: Order Comment: GOOD TER SPECIMEN Performed By: #### M 100.2000, M100.2200, M100.3000, L400.0001 ####[facility] [address] [place], [address] WBC 5-10 SEEN Normal 0-5 [facility] Comment on above: Order Comment: GOOD TER SPECIMEN Performed By: #### M 100.2000, M100.2200, M100.3000, L400.0001 ####[facility] [address] [place], [address] EPI,SQUAMOUS 0 SEEN Normal 0-5 [facility] Comment on above: Order Comment: GOOD TER SPECIMEN Performed By: #### M 100.2000, M100.2200, M100.3000, L400.0001 ####[facility] [address] [place], [address] Urine blood detectionOrdered By: Alex Sheppard on 09-11-2024 Urine Occult Blood 10 /ul High Negative [facility] Urine clarityOrdered By: Luz Sheppard on 09-11-2024 Clarity (U) Clear Clear [facility] Urine color determinationOrd ered By: Alex Sheppard on 09-11-2024 Color (U) Yellow Yellow [facility] Urine cultureOrdered By: Luz Sheppard on 09-11-2024 Bacteria identified Cx Nom (U) Pseudomonas aeruginosa Abnormal [facility] Urine glucose detectionOrder ed By: Alex Sheppard on 09-11-2024 Glucose Ql (U) Normal mg/dl Normal [facility] Urine leukocyte esterase det ection by dipstickOrdered By: Alex Sheppard on 09-11-2024 Leukocyte esterase Test strip Ql (U) 100 /ul High Negative [facility] Urine pHOrdered By: Alex juares on 09-11-2024 pH (U) 6.0 [pH] 5.0 - 8.0 [facility] Urine sediment bacteria coun t by microscopy (number/high power field)Ordered By: Alex Sheppard on 09-11-2024 Bacteria LM.HPF (Urine sed) [#/Area] 2 /[HPF] None Seen [facility] Urine specific gravity measu rementOrdered By: Alex Sheppard on 09-11-2024 Specific gravity (U) [Rel density] 1.015 1.002-1.03 0 [facility] Urine urobilinogen measureme ntOrdered By: Alex Sheppard on 09-11-2024 Urobilinogen Ql (U) Normal mg/dl Normal [facility] Urobilinogen Ql (U)Ordered B y: Alex Sheppard on 09-11-2024 Urine Urobilinogen Normal mg/dl Normal [facility] White blood cell (WBC) count Ordered By: Alex Sheppard on 09-11-2024 WBC (Bld) [#/Vol] 11.6 10*3/uL High 4.4-11.0 [facility] Comment on above: Performed By: #### L 100.0100, L300.3900, L300.4310, M200.1000, L500.4050, L503.6005 ####[facility] [address] [facility] [place], [address] White blood cell countOrdere d By: Alex Sheppard on 09-11-2024 Urine WBC 5-10 SEEN /hpf 0-5 [facility] White blood cell count 5-10 SEEN /hpf 0-5 [facility] Absolute lymphocyte countOrd ered By: Rico Moore on 07-14-2024 Lymphocytes Auto (Unsp spec) [#/Vol] 2.44 10*3/uL 0.83-4.51 [facility] Absolute neutrophil countOrd ered By: Rico Moore on 07-14-2024 Neutrophils (Bld) [#/Vol] 9.1 10*3/uL High 2.0-7.7 [facility] Automated lymphocyte count a s percentage of total leukocytesOrdered By: Rico Moore on 07-14-2024 Lymphocytes/100 WBC Auto (Unsp spec) 19.4 % 19-41 [facility] Bacteria LM.HPF (Urine sed) [#/Area]Ordered By: Rico Moore on 07-14-2024 Urine Bacteria RARE /hpf None Seen [facility] Basic Metabolic Profile (BMP )on 07-14-2024 BUN/CRE 21.2 RATIO High 10-20 [facility] Comment on above: Performed By: #### L 500.3400, L500.2500, L100.0100, L501.2450 ####[facility] [address] [place], [address] CA,Total 9.5 mg/dL Normal 8.5-10.1 [facility] Comment on above: Performed By: #### L 500.3400, L500.2500, L100.0100, L501.2450 ####[facility] [address] [place], [address] Chloride [Moles/Vol] 103 mmol/L Normal 98-107 [facility] Comment on above: Performed By: #### L 500.3400, L500.2500, L100.0100, L501.2450 ####[facility] [address] [place], [address] CO2 [Moles/Vol] 26.0 mmol/L Normal 21.0-32.0 [facility] Comment on above: Performed By: #### L 500.3400, L500.2500, L100.0100, L501.2450 ####[facility] [address] [place], [address] Creatinine [Mass/Vol] 0.66 mg/dL Low 0.70-1.30 [facility] Comment on above: Result Comment: The validity of the calculated GFR GFRAA in patients over70 years has not been determined. Clinical correlation isessential. Performed By: #### L 500.3400, L500.2500, L100.0100, L501.2450 ####[facility] [address] [place], [address] ECRCL 125.25 ml/min Normal [facility] Comment on above: Performed By: #### L 500.3400, L500.2500, L100.0100, L501.2450 ####[facility] [address] [place], [address] EST GFR - AA 156 mL/min Normal >60 [facility] Comment on above: Result Comment: Afri can Ni[place]an GFR Calc Performed By: #### L 500.3400, L500.2500, L100.0100, L501.2450 ####[facility] [address] [place], [address] GAP 9 Normal 5-15 [facility] Comment on above: Performed By: #### L 500.3400, L500.2500, L100.0100, L501.2450 ####[facility] [address] [place], [address] GFR/1.73 sq M.predicted among non-blacks MDRD (S/P/Bld) [Vol rate/Area] 129 mL/min/{1.73_m2} Normal >60 [facility] Comment on above: Result Comment: Non- GFR Calc Performed By: #### L 500.3400, L500.2500, L100.0100, L501.2450 ####[facility] [address] [place], [address] Glucose [Mass/Vol] 110 mg/dL High 74-106 [facility] Comment on above: Result Comment: Fast ing Glucose result from 100 to 125 mg/dLsuggests IMPAIRED HOMEOSTASIS per A.D.A. criteria. Performed By: #### L 500.3400, L500.2500, L100.0100, L501.2450 ####[facility] [address] [place], [address] Potassium [Moles/Vol] 3.6 mmol/L Normal 3.5-5.1 [facility] Comment on above: Performed By: #### L 500.3400, L500.2500, L100.0100, L501.2450 ####[facility] [address] [place], [address] Sodium [Moles/Vol] 139 mmol/L Normal 136-145 [facility] Comment on above: Performed By: #### L 500.3400, L500.2500, L100.0100, L501.2450 ####[facility] [address] [place], [address] Urea nitrogen [Mass/Vol] 14 mg/dL Normal 7-18 [facility] Comment on above: Performed By: #### L 500.3400, L500.2500, L100.0100, L501.2450 ####[facility] [address] [place], [address] Basophil percentageOrdered B y: Rico Moore on 07-14-2024 Basophils/100 WBC (Bld) 0.6 % 0-1 [facility] Bilirubin Test strip Ql (U)O rdered By: Rico Moore on 07-14-2024 Bilirubin Ql (U) Negative Negative [facility] Bilirubin directOrdered By: Rico Moore on 07-14-2024 Bilirubin.direct [Mass/Vol] 0.13 mg/dL 0.00-0.3 0 [facility] Bilirubin, totalOrdered By: Rico Moore on 07-14-2024 Bilirubin [Mass/Vol] 0.30 mg/dL 0.20-1.00 [facility] Comment on above: For patients on eltr ombopag therapy, use of Dimension [place] TBIL is not recommended. Blood urea nitrogen (BUN)/cr eatinine ratioOrdered By: Rico Moore on 07-14-2024 Urea nitrogen/Creatinine [Mass ratio] 21.2 mg/mg High 10-20 [facility] CBC W/Diff, Automatedon 06-29 Absolute Lymph 2.44 X10 3/uL Normal 0.83-4.51 [facility] Comment on above: Performed By: #### L 500.3400, L500.2500, L100.0100, L501.2450 ####[facility] [address] [place], [address] Absolute Neut 9.1 X10 3/uL High 2.0-7.7 [facility] Comment on above: Performed By: #### L 500.3400, L500.2500, L100.0100, L501.2450 ####[facility] [address] [place], [address] Basophils/100 WBC (Bld) 0.6 % Normal 0-1 [facility] Comment on above: Performed By: #### L 500.3400, L500.2500, L100.0100, L501.2450 ####[facility] [address] [place], [address] Eosinophils/100 WBC (Bld) 1.4 % Normal 0-5 [facility] Comment on above: Performed By: #### L 500.3400, L500.2500, L100.0100, L501.2450 ####[facility] [address] [place], [address] Erythrocyte distribution width (RBC) [Ratio] 15.9 % High 11.6-14.6 [facility] Comment on above: Performed By: #### L 500.3400, L500.2500, L100.0100, L501.2450 ####[facility] [address] [place], [address] Hematocrit (Bld) [Volume fraction] 42.8 % Normal 40-54 [facility] Comment on above: Performed By: #### L 500.3400, L500.2500, L100.0100, L501.2450 ####[facility] [address] [place], [address] Hemoglobin (Bld) [Mass/Vol] 14.0 g/dL Normal 13.0-16. 5 [facility] Comment on above: Performed By: #### L 500.3400, L500.2500, L100.0100, L501.2450 ####[facility] [address] [place], [address] IG% 0.600 Normal 0.0-0.9 [facility] Comment on above: Result Comment: IG% - Immature Granulocytes (promyelocytes, myelocytes andmetamyelocytes) > 1% indicates that a LEFT SHIFT is Present. Performed By: #### L 500.3400, L500.2500, L100.0100, L501.2450 ####[facility] [address] [place], [address] Lymphocytes/100 WBC (Bld) 19.4 % Normal 19-41 [facility] Comment on above: Performed By: #### L 500.3400, L500.2500, L100.0100, L501.2450 ####[facility] [address] [place], [address] MCH (RBC) [Entitic mass] 27.1 pg Normal 27.0-32.0 [facility] Comment on above: Performed By: #### L 500.3400, L500.2500, L100.0100, L501.2450 ####[facility] [address] [place], [address] MCHC (RBC) [Mass/Vol] 32.7 g/dL Normal 32-36 [facility] Comment on above: Performed By: #### L 500.3400, L500.2500, L100.0100, L501.2450 ####[facility] [address] [place], [address] MCV (RBC) [Entitic vol] 82.8 fL Normal 80-94 [facility] Comment on above: Performed By: #### L 500.3400, L500.2500, L100.0100, L501.2450 ####[facility] [address] [place], [address] Monocytes/100 WBC (Bld) 5.9 % Normal 0-10 [facility] Comment on above: Performed By: #### L 500.3400, L500.2500, L100.0100, L501.2450 ####[facility] [address] [place], [address] Neutrophils/100 WBC (Bld) 72.1 % High 47-70 [facility] Comment on above: Performed By: #### L 500.3400, L500.2500, L100.0100, L501.2450 ####[facility] [address] [place], [address] Nucleated RBC (Bld) [#/Vol] 0 10*3/uL Normal 0-5 [facility] Comment on above: Performed By: #### L 500.3400, L500.2500, L100.0100, L501.2450 ####[facility] [address] [place], [address] Platelet mean volume (Bld) [Entitic vol] 8.9 fL Normal 6.2-12.0 [facility] Comment on above: Performed By: #### L 500.3400, L500.2500, L100.0100, L501.2450 ####[facility] [address] [place], [address] Platelets (Bld) [#/Vol] 487 10*3/uL High 150-450 [facility] Comment on above: Performed By: #### L 500.3400, L500.2500, L100.0100, L501.2450 ####[facility] [address] [place], [address] RBC (Bld) [#/Vol] 5.17 10*6/uL Normal 4.6-6.2 [facility] Comment on above: Performed By: #### L 500.3400, L500.2500, L100.0100, L501.2450 ####[facility] [address] [place], [address] RDW SD 47.8 fl High 35.1-43.9 [facility] Comment on above: Performed By: #### L 500.3400, L500.2500, L100.0100, L501.2450 ####[facility] [address] [place], [address] WBC (Bld) [#/Vol] 12.6 10*3/uL High 4.4-11.0 [facility] Comment on above: Performed By: #### L 500.3400, L500.2500, L100.0100, L501.2450 ####[facility] [address] [place], [address] Calcium oxalate crystals LM Ql (Urine sed)Ordered By: Rico Moore on 07-14-2024 Urine Calcium Oxalate Crystals RARE /hpf [facility] Calcium oxalate crystals det ection in urine sediment by light microscopyOrdered By: Rico Moore on 07-14-2024 Calcium oxalate crystals LM Ql (Urine sed) RARE /hpf [facility] Carbon dioxide measurementOr dered By: Rico Moore on 07-14-2024 CO2 [Moles/Vol] 26.0 mmol/L 21.0-32.0 [facility] Chest 1 View (Portable)on Chest 1 View (Portable) Normal [facility] Chloride measurementOrdered By: Rico Moore on 07-14-2024 Chloride [Moles/Vol] 103 mmol/L 98-107 [facility] Emergency Department Summary on 07-14-2024 Emergency Department Summary Normal [facility] Eosinophil percentageOrdered By: Rico Moore on 07-14-2024 Eosinophils/100 WBC (Bld) 1.4 % 0-5 [facility] Epithelial cells.squamous LM Ql (Urine sed)Ordered By: Rico Moore on 07-14-2024 Epithelial cells.squamous LM.HPF (Urine sed) [#/Area] 0 /[HPF] 0-5 [facility] Erythrocyte distribution wid th (RBC) [Ratio]Ordered By: Rico Moore on 07-14-2024 Erythrocyte distribution width (RBC) [Entitic vol] 47.8 fL High 35.1-43.9 [facility] Erythrocyte distribution wid th ratioOrdered By: Rico Moore on 07-14-2024 Erythrocyte distribution width (RBC) [Ratio] 15.9 % High 11.6-14.6 [facility] Erythrocyte distribution wid th standard deviationOrdered By: Rico Moore on 07-14-2024 Erythrocyte distribution width (RBC) [Ratio] 47.8 fl High 35.1-43.9 [facility] Estimated glomerular filtrat ion rate (GFR) AmericanOrdered By: Rico Moore on 07-14-2024 Estimated GFR (MDRD) Amer 156 mL/min >60 [facility] Comment on above: GFR Calc Estimation of creatinine elzbieta aranceOrdered By: Rico Moore on 07-14-2024 Estimated Creatinine Clearance Calc 125.25 ml/min [facility] Glomerular filtration rate ( GFR) estimationOrdered By: Rico Moore on 07-14-2024 Estimated GFR (MDRD) Non-Af Amer 129 mL/min >60 [facility] Comment on above: Non- GFR Calc GFR/1.73 sq M.predicted among non-blacks MDRD (S/P/Bld) [Vol rate/Area] 129 mL/min/{1.73_m2} >60 [facility] Comment on above: Non- GFR Calc Glucose Ql (U)Ordered By: Thomas Moore on 07-14-2024 Urine Glucose (UA) Normal mg/dl Normal [facility] Glucose measurementOrdered B y: Rico Moore on 07-14-2024 Glucose [Mass/Vol] 110 mg/dL High 74-106 [facility] Comment on above: Fasting Glucose resu lt from 100 to 125 mg/dL suggests IMPAIRED HOMEOSTASIS per A.D.A. criteria. Hematocrit Auto (Bld) [Volum e fraction]Ordered By: Rico Moore on 07-14-2024 Hematocrit (Bld) [Volume fraction] 42.8 % 40-54 [facility] Hemoglobin measurementOrdere d By: Rico Moore on 07-14-2024 Hemoglobin (Bld) [Mass/Vol] 14.0 g/dL 13.0-16. 5 [facility] Immature granulocytes/100 WB C Auto (Bld)Ordered By: Rico Moore on 07-14-2024 Immature granulocytes/100 WBC (Bld) 0.600 % 0.0-0.9 [facility] Comment on above: IG% - Immature Granu locytes (promyelocytes, myelocytes and metamyelocytes) > 1% indicates that a LEFT SHIFT is Present. Ketones Test strip Ql (U)Ord ered By: Rico Moore on 07-14-2024 Ketones Ql (U) 150 mg/dl Abnormal Negative [facility] Comment on above: CRITICAL VALUE *HCAL LED TO GEORGE BARONE07/14/24 0758 Erica Bianchi.RESULTS READ BACK BY SAME. Laboratory - Chemistry and C hemistry - challengeOrdered By: Rico Moore on 07-14-2024 AST [Catalytic activity/Vol] 20 U/L 15-37 [facility] Lipaseon 07-14-2024 Lipase [Catalytic activity/Vol] 20 U/L Low 73-393 [facility] Comment on above: Performed By: #### L 500.3400, L500.2500, L100.0100, L501.2450 ####[facility] [address] [place], [place], [id number] Lipase measurementOrdered By : Rico Moore on 07-14-2024 Lipase [Catalytic activity/Vol] 20 U/L Low 73-393 [facility] Liver Profileon 07-14-2024 Albumin [Mass/Vol] 2.5 g/dL Low 3.2-5.0 [facility] Comment on above: Performed By: #### L 500.3400, L500.2500, L100.0100, L501.2450 ####[facility] [address] [place], [place], [id number] ALK P 117 U/L Normal 45-117 [facility] Comment on above: Performed By: #### L 500.3400, L500.2500, L100.0100, L501.2450 ####[facility] [address] [place], [address] ALT [Catalytic activity/Vol] 19 U/L Normal 16-61 [facility] Comment on above: Performed By: #### L 500.3400, L500.2500, L100.0100, L501.2450 ####[facility] [address] [place], [address] AST [Catalytic activity/Vol] 20 U/L Normal 15-37 [facility] Comment on above: Performed By: #### L 500.3400, L500.2500, L100.0100, L501.2450 ####[facility] [address] [place], [address] Bilirubin [Mass/Vol] 0.30 mg/dL Normal 0.20-1.00 [facility] Comment on above: Result Comment: For patients on eltrombopag therapy, use of Dimension [place] TBIL is not recommended. Performed By: #### L 500.3400, L500.2500, L100.0100, L501.2450 ####[facility] [address] [place], [address] Bilirubin.direct [Mass/Vol] 0.13 mg/dL Normal 0.00-0.3 0 [facility] Comment on above: Performed By: #### L 500.3400, L500.2500, L100.0100, L501.2450 ####[facility] [address] [place], [address] Globulin (S) [Mass/Vol] 5.2 g/dL High 2.2-4.2 [facility] Comment on above: Performed By: #### L 500.3400, L500.2500, L100.0100, L501.2450 ####[facility] [address] [place], [address] T PROT 7.7 g/dL Normal 6.4-8.2 [facility] Comment on above: Performed By: #### L 500.3400, L500.2500, L100.0100, L501.2450 ####[facility] [id number] [place], [address] Lymphocytes Auto (Unsp spec) [#/Vol]Ordered By: Rico Moore on 07-14-2024 Lymphocytes (Bld) [#/Vol] 2.44 10*3/uL 0.83-4.5 1 [facility] Lymphocytes/100 WBC Auto (Un sp spec)Ordered By: Rico Moore on 07-14-2024 Lymphocytes/100 WBC (Bld) 19.4 % 19-41 [facility] MCV (mean corpuscular volume ) determinationOrdered By: Rico Moore on 07-14-2024 MCV (RBC) [Entitic vol] 82.8 fL 80-94 [facility] Mean corpuscular hemoglobin (MCH) determinationOrdered By: Rico Moore on 07-14-2024 MCH (RBC) [Entitic mass] 27.1 pg 27.0-32.0 [facility] Mean corpuscular hemoglobin concentration (MCHC) determinationOrdered By: Rico Moore on 07-14-2024 MCHC (RBC) [Mass/Vol] 32.7 g/dL 32-36 [facility] Mean platelet volume determi nationOrdered By: Rico Moore on 07-14-2024 Platelet mean volume (Bld) [Entitic vol] 8.9 fL 6.2-12.0 [facility] Microscopic analysis of urin e for red blood cells (RBC)Ordered By: Rico Moore on 07-14-2024 Microscopic analysis of urine for red blood cells (RBC) 0 SEEN /hpf 0-5 [facility] Urine RBC 0 SEEN /hpf 0-5 [facility] Monocyte percentageOrdered B y: Rico Moore on 07-14-2024 Monocytes/100 WBC (Bld) 5.9 % 0-10 [facility] Mucus LM Ql (Urine sed)Order ed By: Rico Moore on 07-14-2024 Mucus Ql (Urine sed) 0 SEEN /hpf [facility] Neutrophil percentageOrdered By: Rico Moore on 07-14-2024 Neutrophils/100 WBC (Bld) 72.1 % High 47-70 [facility] Nitrite Test strip Ql (U)Ord ered By: Rico Moore on 07-14-2024 Nitrite Ql (U) Positive High Negative [facility] Nucleated red blood cell per centageOrdered By: Rico Moore on 07-14-2024 Nucleated RBC/100 WBC (Bld) [Ratio] 0 % 0-5 [facility] Platelet countOrdered By: Thomas Moore on 07-14-2024 Platelets (Bld) [#/Vol] 487 10*3/uL High 150-450 [facility] Potassium measurementOrdered By: Rico Moore on 07-14-2024 Potassium [Moles/Vol] 3.6 mmol/L 3.5-5.1 [facility] Protein Test strip Ql (U)Ord ered By: Rico Moore on 07-14-2024 Protein Ql (U) 100 mg/dl High Negative [facility] RBC Auto (Bld) [#/Vol]Ordere d By: Rico Moore on 07-14-2024 RBC (Bld) [#/Vol] 5.17 10*6/uL 4.6-6.2 [facility] Serum anion gap measurementO rdered By: Rico Moore on 07-14-2024 Anion gap [Moles/Vol] 9 mmol/L 5-15 [facility] Serum globulin measurementOr dered By: Rico Moore on 07-14-2024 Globulin (S) [Mass/Vol] 5.2 g/dL High 2.2-4.2 [facility] Serum or plasma alanine hooper otransferase (ALT) measurementOrdered By: Rico Moore on 07-14-2024 ALT [Catalytic activity/Vol] 19 U/L 16-61 [facility] Serum or plasma albumin shantal urement (mass/volume)Ordered By: Rico Moore on 07-14-2024 Albumin [Mass/Vol] 2.5 g/dL Low 3.2-5.0 [facility] Serum or plasma alkaline radha sphatase measurementOrdered By: Rico Moore on 07-14-2024 ALP [Catalytic activity/Vol] 117 U/L 45-117 [facility] Serum or plasma calcium shantal urement (mass/volume)Ordered By: Rico Moore on 07-14-2024 Calcium [Mass/Vol] 9.5 mg/dL 8.5-10.1 [facility] Serum or plasma creatinine m easurement (mass/volume)Ordered By: Rico Moore on 07-14-2024 Creatinine [Mass/Vol] 0.66 mg/dL Low 0.70-1.30 [facility] Comment on above: The validity of the calculated GFR & GFRAA in patients over 70 years has not been determined. Clinical correlation is essential. Serum or plasma urea nitroge n measurement (mass/volume)Ordered By: Rico Moore on 07-14-2024 Urea nitrogen [Mass/Vol] 14 mg/dL 7-18 [facility] Sodium levelOrdered By: Bhaskar Moore on 07-14-2024 Sodium [Moles/Vol] 139 mmol/L 136-145 [facility] Squamous epithelial cells de tection in urine sediment by light microscopyOrdered By: Rico Moore on 07-14-2024 Epithelial cells.squamous LM Ql (Urine sed) 0-5 SEEN /hpf 0-5 [facility] Total proteinOrdered By: Charles Moore on 07-14-2024 Protein [Mass/Vol] 7.7 g/dL 6.4-8.2 [facility] Urinalysis, Completeon 07-14 RBC 0 SEEN Normal 0-5 [facility] Comment on above: Order Comment: GOOD TER SPECIMEN Performed By: #### L 400.0001 ####[facility] [address] [place], [address] BACTERIA RARE Normal None Seen [facility] Comment on above: Order Comment: GOOD TER SPECIMEN Performed By: #### L 400.0001 ####[facility] [address] [place], [address] CA OX CRYSTAL RARE Normal [facility] Comment on above: Order Comment: GOOD TER SPECIMEN Performed By: #### L 400.0001 ####[facility] [address] [place], [address] EPI,SQUAMOUS 0-5 SEEN Normal 0-5 [facility] Comment on above: Order Comment: GOOD TER SPECIMEN Performed By: #### L 400.0001 ####[facility] [address] [place], [address] WBC >100 SEEN Normal 0-5 [facility] Comment on above: Order Comment: GOOD TER SPECIMEN Performed By: #### L 400.0001 ####[facility] [address] [place], [address] Mucus Ql (Urine sed) 0 SEEN Normal [facility] Comment on above: Order Comment: GOOD TER SPECIMEN Performed By: #### L 400.0001 ####[facility] [address] [place], [address] Urine blood detectionOrdered By: Rico Moore on 07-14-2024 Urine Occult Blood 50 /ul High Negative [facility] Urine clarityOrdered By: Charles Moore on 07-14-2024 Clarity (U) Cloudy Clear [facility] Urine color determinationOrd ered By: Rico Moore on 07-14-2024 Color (U) Yellow Yellow [facility] Urine glucose detectionOrder ed By: Rico Moore on 07-14-2024 Glucose Ql (U) Normal mg/dl Normal [facility] Urine leukocyte esterase det ection by dipstickOrdered By: Rico Moore on 07-14-2024 Leukocyte esterase Test strip Ql (U) 500 /ul High Negative [facility] Urine pHOrdered By: Rico vang on 07-14-2024 pH (U) 5.0 [pH] 5.0 - 8.0 [facility] Urine sediment bacteria coun t by microscopy (number/high power field)Ordered By: Rico Moore on 07-14-2024 Bacteria LM.HPF (Urine sed) [#/Area] RARE /hpf None Seen [facility] Urine specific gravity measu rementOrdered By: Rico Moore on 07-14-2024 Specific gravity (U) [Rel density] 1.025 1.002-1.03 0 [facility] Urine urobilinogen measureme ntOrdered By: Rico Moore on 07-14-2024 Urobilinogen Ql (U) Normal mg/dl Normal [facility] Urobilinogen Ql (U)Ordered B y: Rico Moore on 07-14-2024 Urine Urobilinogen Normal mg/dl Normal [facility] White blood cell (WBC) count Ordered By: Rico Moore on 07-14-2024 WBC (Bld) [#/Vol] 12.6 10*3/uL High 4.4-11.0 [facility] White blood cell countOrdere d By: Rico Moore on 07-14-2024 Urine WBC >100 SEEN /hpf 0-5 [facility] White blood cell count >100 SEEN /hpf 0-5 [facility] 12 Lead EKGon 07-13-2024 12 Lead EKG Normal [facility] Absolute lymphocyte countOrd ered By: Richie Borden on 07-13-2024 Lymphocytes Auto (Unsp spec) [#/Vol] 3.25 10*3/uL 0.83-4.51 [facility] Absolute neutrophil countOrd ered By: Richie Borden on 07-13-2024 Neutrophils (Bld) [#/Vol] 9.2 10*3/uL High 2.0-7.7 [facility] Automated lymphocyte count a s percentage of total leukocytesOrdered By: Richie Borden on 07-13-2024 Lymphocytes/100 WBC Auto (Unsp spec) 22.6 % 19-41 [facility] Basic Metabolic Profile (BMP )on 07-13-2024 BUN/CRE 17.5 RATIO Normal 10-20 [facility] Comment on above: Order Comment: 'TROP ' Serial specimen #1, #2 or #3: 1 Performed By: #### L 501.4020, L500.3400, L501.2450, L100.0100, L500.2500, L300.8000 ####[facility] [address] [place], [address] CA,Total 9.4 mg/dL Normal 8.5-10.1 [facility] Comment on above: Order Comment: 'TROP ' Serial specimen #1, #2 or #3: 1 Performed By: #### L 501.4020, L500.3400, L501.2450, L100.0100, L500.2500, L300.8000 ####[facility] [address] [place], [address] Chloride [Moles/Vol] 104 mmol/L Normal 98-107 [facility] Comment on above: Order Comment: 'TROP ' Serial specimen #1, #2 or #3: 1 Performed By: #### L 501.4020, L500.3400, L501.2450, L100.0100, L500.2500, L300.8000 ####[facility] [address] [place], [address] CO2 [Moles/Vol] 27.0 mmol/L Normal 21.0-32.0 [facility] Comment on above: Order Comment: 'TROP ' Serial specimen #1, #2 or #3: 1 Performed By: #### L 501.4020, L500.3400, L501.2450, L100.0100, L500.2500, L300.8000 ####[facility] [address] [place], [address] Creatinine [Mass/Vol] 0.63 mg/dL Low 0.70-1.30 [facility] Comment on above: Order Comment: 'TROP ' Serial specimen #1, #2 or #3: 1 Result Comment: The validity of the calculated GFR GFRAA in patients over70 years has not been determined. Clinical correlation isessential. Performed By: #### L 501.4020, L500.3400, L501.2450, L100.0100, L500.2500, L300.8000 ####[facility] [address] [place], [address] ECRCL 120.02 ml/min Normal [facility] Comment on above: Order Comment: 'TROP ' Serial specimen #1, #2 or #3: 1 Performed By: #### L 501.4020, L500.3400, L501.2450, L100.0100, L500.2500, L300.8000 ####[facility] [address] [place], [address] EST GFR - AA 166 mL/min Normal >60 [facility] Comment on above: Order Comment: 'TROP ' Serial specimen #1, #2 or #3: 1 Result Comment: Afri can Ni[place]an GFR Calc Performed By: #### L 501.4020, L500.3400, L501.2450, L100.0100, L500.2500, L300.8000 ####[facility] [address] [place], [address] GAP 6 Normal 5-15 [facility] Comment on above: Order Comment: 'TROP ' Serial specimen #1, #2 or #3: 1 Performed By: #### L 501.4020, L500.3400, L501.2450, L100.0100, L500.2500, L300.8000 ####[facility] [address] [place], [address] GFR/1.73 sq M.predicted among non-blacks MDRD (S/P/Bld) [Vol rate/Area] 137 mL/min/{1.73_m2} Normal >60 [facility] Comment on above: Order Comment: 'TROP ' Serial specimen #1, #2 or #3: 1 Result Comment: Non- GFR Calc Performed By: #### L 501.4020, L500.3400, L501.2450, L100.0100, L500.2500, L300.8000 ####[facility] [address] [place], [address] Glucose [Mass/Vol] 122 mg/dL High 74-106 [facility] Comment on above: Order Comment: 'TROP ' Serial specimen #1, #2 or #3: 1 Result Comment: Fast ing Glucose result from 100 to 125 mg/dLsuggests IMPAIRED HOMEOSTASIS per A.D.A. criteria. Performed By: #### L 501.4020, L500.3400, L501.2450, L100.0100, L500.2500, L300.8000 ####[facility] [address] [place], [address] Potassium [Moles/Vol] 3.6 mmol/L Normal 3.5-5.1 [facility] Comment on above: Order Comment: 'TROP ' Serial specimen #1, #2 or #3: 1 Performed By: #### L 501.4020, L500.3400, L501.2450, L100.0100, L500.2500, L300.8000 ####[facility] [address] [place], [address] Sodium [Moles/Vol] 137 mmol/L Normal 136-145 [facility] Comment on above: Order Comment: 'TROP ' Serial specimen #1, #2 or #3: 1 Performed By: #### L 501.4020, L500.3400, L501.2450, L100.0100, L500.2500, L300.8000 ####[facility] [address] [place], [address] Urea nitrogen [Mass/Vol] 11 mg/dL Normal 7-18 [facility] Comment on above: Order Comment: 'TROP ' Serial specimen #1, #2 or #3: 1 Performed By: #### L 501.4020, L500.3400, L501.2450, L100.0100, L500.2500, L300.8000 ####[facility] [address] [place], [address] Basophil percentageOrdered B y: Richie Borden on 07-13-2024 Basophils/100 WBC (Bld) 0.5 % 0-1 [facility] Bilirubin directOrdered By: Richie Borden on 07-13-2024 Bilirubin.direct [Mass/Vol] 0.15 mg/dL 0.00-0.3 0 [facility] Bilirubin, totalOrdered By: Richie Borden on 07-13-2024 Bilirubin [Mass/Vol] 0.30 mg/dL 0.20-1.00 [facility] Comment on above: For patients on eltr ombopag therapy, use of Dimension [place] TBIL is not recommended. Blood urea nitrogen (BUN)/cr eatinine ratioOrdered By: Richie Borden on 07-13-2024 Urea nitrogen/Creatinine [Mass ratio] 17.5 mg/mg 10-20 [facility] CBC W/Diff, Automatedon 06-29 Absolute Lymph 3.25 X10 3/uL Normal 0.83-4.51 [facility] Comment on above: Performed By: #### L 501.4020, L500.3400, L501.2450, L100.0100, L500.2500, L300.8000 ####[facility] [address] [place], [address] Absolute Neut 9.2 X10 3/uL High 2.0-7.7 [facility] Comment on above: Performed By: #### L 501.4020, L500.3400, L501.2450, L100.0100, L500.2500, L300.8000 ####[facility] [address] [place], [address] Basophils/100 WBC (Bld) 0.5 % Normal 0-1 [facility] Comment on above: Performed By: #### L 501.4020, L500.3400, L501.2450, L100.0100, L500.2500, L300.8000 ####[facility] [address] [place], [address] Eosinophils/100 WBC (Bld) 3.1 % Normal 0-5 [facility] Comment on above: Performed By: #### L 501.4020, L500.3400, L501.2450, L100.0100, L500.2500, L300.8000 ####[facility] [address] [place], [address] Erythrocyte distribution width (RBC) [Ratio] 15.9 % High 11.6-14.6 [facility] Comment on above: Performed By: #### L 501.4020, L500.3400, L501.2450, L100.0100, L500.2500, L300.8000 ####[facility] [address] [place], [address] Hematocrit (Bld) [Volume fraction] 43.8 % Normal 40-54 [facility] Comment on above: Performed By: #### L 501.4020, L500.3400, L501.2450, L100.0100, L500.2500, L300.8000 ####[facility] [address] [place], [address] Hemoglobin (Bld) [Mass/Vol] 14.2 g/dL Normal 13.0-16. 5 [facility] Comment on above: Performed By: #### L 501.4020, L500.3400, L501.2450, L100.0100, L500.2500, L300.8000 ####[facility] [address] [place], [address] IG% 0.400 Normal 0.0-0.9 [facility] Comment on above: Result Comment: IG% - Immature Granulocytes (promyelocytes, myelocytes andmetamyelocytes) > 1% indicates that a LEFT SHIFT is Present. Performed By: #### L 501.4020, L500.3400, L501.2450, L100.0100, L500.2500, L300.8000 ####[facility] [address] [place], [address] Lymphocytes/100 WBC (Bld) 22.6 % Normal 19-41 [facility] Comment on above: Performed By: #### L 501.4020, L500.3400, L501.2450, L100.0100, L500.2500, L300.8000 ####[facility] [address] [place], [address] MCH (RBC) [Entitic mass] 26.8 pg Low 27.0-32.0 [facility] Comment on above: Performed By: #### L 501.4020, L500.3400, L501.2450, L100.0100, L500.2500, L300.8000 ####[facility] [address] [place], [address] MCHC (RBC) [Mass/Vol] 32.4 g/dL Normal 32-36 [facility] Comment on above: Performed By: #### L 501.4020, L500.3400, L501.2450, L100.0100, L500.2500, L300.8000 ####[facility] [address] [place], [address] MCV (RBC) [Entitic vol] 82.6 fL Normal 80-94 [facility] Comment on above: Performed By: #### L 501.4020, L500.3400, L501.2450, L100.0100, L500.2500, L300.8000 ####[facility] [address] [place], [address] Monocytes/100 WBC (Bld) 9.5 % Normal 0-10 [facility] Comment on above: Performed By: #### L 501.4020, L500.3400, L501.2450, L100.0100, L500.2500, L300.8000 ####[facility] [address] [place], [address] Neutrophils/100 WBC (Bld) 63.9 % Normal 47-70 [facility] Comment on above: Performed By: #### L 501.4020, L500.3400, L501.2450, L100.0100, L500.2500, L300.8000 ####[facility] [address] [place], [address] Nucleated RBC (Bld) [#/Vol] 0 10*3/uL Normal 0-5 [facility] Comment on above: Performed By: #### L 501.4020, L500.3400, L501.2450, L100.0100, L500.2500, L300.8000 ####[facility] [address] [place], [address] Platelet mean volume (Bld) [Entitic vol] 8.6 fL Normal 6.2-12.0 [facility] Comment on above: Performed By: #### L 501.4020, L500.3400, L501.2450, L100.0100, L500.2500, L300.8000 ####[facility] [address] [place], [address] Platelets (Bld) [#/Vol] 477 10*3/uL High 150-450 [facility] Comment on above: Performed By: #### L 501.4020, L500.3400, L501.2450, L100.0100, L500.2500, L300.8000 ####[facility] [address] [place], [address] RBC (Bld) [#/Vol] 5.30 10*6/uL Normal 4.6-6.2 [facility] Comment on above: Performed By: #### L 501.4020, L500.3400, L501.2450, L100.0100, L500.2500, L300.8000 ####[facility] [address] [place], [address] RDW SD 47.9 fl High 35.1-43.9 [facility] Comment on above: Performed By: #### L 501.4020, L500.3400, L501.2450, L100.0100, L500.2500, L300.8000 ####[facility] [address] [place], [address] WBC (Bld) [#/Vol] 14.4 10*3/uL High 4.4-11.0 [facility] Comment on above: Performed By: #### L 501.4020, L500.3400, L501.2450, L100.0100, L500.2500, L300.8000 ####[facility] [address] [place], [address] CTA Chest W/WO Contraston CTA Chest W/WO Contrast Normal [facility] Carbon dioxide measurementOr dered By: Richie Borden on 07-13-2024 CO2 [Moles/Vol] 27.0 mmol/L 21.0-32.0 [facility] Chest 1 View (Portable)on Chest 1 View (Portable) Normal [facility] Chloride measurementOrdered By: Richie Borden on 07-13-2024 Chloride [Moles/Vol] 104 mmol/L 98-107 [facility] D-Dimer Quantitative (DVT/PE )on 07-13-2024 D-DIMER QUANT 0.88 FEU/ug/m Invalid Interpretation Code 0.27-0.49 [facility] Comment on above: Result Comment: D-Di rick ELEVATED (>0.49): Additional studies and clinicalassessments are indicated to conclude diagnosis of:Deep Vein Thrombosis (DVT) or Pulmonary Embolism (PE)CRITICAL VALUE CALLED TO [facility]07/13/24 0417 Graham Osorio.RESULTS READ BACK BY SAME. Performed By: #### L 501.4020, L500.3400, L501.2450, L100.0100, L500.2500, L300.8000 ####[facility] [address] [place], [address] D-dimer measurement for deep venous thrombosisOrdered By: Richie Borden on 07-13-2024 D-Dimer Quantitative (PE/DVT) 0.88 FEU/ug/m High 0.27-0.49 [facility] Comment on above: D-Dimer ELEVATED (>0 .49): Additional studies and clinicalassessments are indicated to conclude diagnosis of:Deep Vein Thrombosis (DVT) or Pulmonary Embolism (PE)CRITICAL VALUE CALLED TO [facility]07/13/24 0417 Graham Osorio.RESULTS READ BACK BY SAME. Emergency Department Summary on 07-13-2024 Emergency Department Summary Normal [facility] Eosinophil percentageOrdered By: Richie Borden on 07-13-2024 Eosinophils/100 WBC (Bld) 3.1 % 0-5 [facility] Erythrocyte distribution wid th (RBC) [Ratio]Ordered By: Richie Borden on 07-13-2024 Erythrocyte distribution width (RBC) [Entitic vol] 47.9 fL High 35.1-43.9 [facility] Erythrocyte distribution wid th ratioOrdered By: Richie Borden on 07-13-2024 Erythrocyte distribution width (RBC) [Ratio] 15.9 % High 11.6-14.6 [facility] Erythrocyte distribution wid th standard deviationOrdered By: Richie Borden on 07-13-2024 Erythrocyte distribution width (RBC) [Ratio] 47.9 fl High 35.1-43.9 [facility] Estimated glomerular filtrat ion rate (GFR) AmericanOrdered By: Richie Borden on 07-13-2024 Estimated GFR (MDRD) Amer 166 mL/min >60 [facility] Comment on above: GFR Calc Estimation of creatinine elzbieta aranceOrdered By: Richie Borden on 07-13-2024 Estimated Creatinine Clearance Calc 120.02 ml/min [facility] Glomerular filtration rate ( GFR) estimationOrdered By: Richie Borden on 07-13-2024 Estimated GFR (MDRD) Non-Af Amer 137 mL/min >60 [facility] Comment on above: Non- GFR Calc GFR/1.73 sq M.predicted among non-blacks MDRD (S/P/Bld) [Vol rate/Area] 137 mL/min/{1.73_m2} >60 [facility] Comment on above: Non- GFR Calc Glucose measurementOrdered B y: Richie Borden on 07-13-2024 Glucose [Mass/Vol] 122 mg/dL High 74-106 [facility] Comment on above: Fasting Glucose resu lt from 100 to 125 mg/dL suggests IMPAIRED HOMEOSTASIS per A.D.A. criteria. Hematocrit Auto (Bld) [Volum e fraction]Ordered By: Richie Borden on 07-13-2024 Hematocrit (Bld) [Volume fraction] 43.8 % 40-54 [facility] Hemoglobin measurementOrdere d By: Richie Borden on 07-13-2024 Hemoglobin (Bld) [Mass/Vol] 14.2 g/dL 13.0-16. 5 [facility] Immature granulocytes/100 WB C Auto (Bld)Ordered By: Richie Borden on 07-13-2024 Immature granulocytes/100 WBC (Bld) 0.400 % 0.0-0.9 [facility] Comment on above: IG% - Immature Granu locytes (promyelocytes, myelocytes and metamyelocytes) > 1% indicates that a LEFT SHIFT is Present. Influenza virus A and B and SARS-CoV-2 (COVID-19) and Respiratory syncytial virus RNAOrdered By: Richie Borden on 07-13-2024 SARS-CoV-2 (COVID-19) RNA ZEKE+probe Ql (Unsp spec) [facility] L501.4020on 07-13-2024 TROPONIN-I HS 6 pg/mL Normal 3.0-78.0 [facility] Comment on above: Order Comment: 'TROP ' Serial specimen #1, #2 or #3: 2 Result Comment: Siri anaya Note: New Test Units and Gender Specific Reference Ranges. For more information see Policy Stat Procedure [place] High Sensitivity Troponin (TNIH) and attachments. Performed By: #### L 589.6948 ####[facility] [address] [place], [address] TROPONIN-I HS 7 pg/mL Normal 3.0-78.0 [facility] Comment on above: Order Comment: 'TROP ' Serial specimen #1, #2 or #3: 1 Result Comment: Siri anaya Note: New Test Units and Gender Specific Reference Ranges. For more information see Policy Stat Procedure [place] High Sensitivity Troponin (TNIH) and attachments. Performed By: #### L 501.4020, L500.3400, L501.2450, L100.0100, L500.2500, L300.8000 ####[facility] [address] [place], [address] Laboratory - Chemistry and C hemistry - challengeOrdered By: Richie Borden on 07-13-2024 AST [Catalytic activity/Vol] 25 U/L 15-37 [facility] Lipaseon 07-13-2024 Lipase [Catalytic activity/Vol] 17 U/L Low 73-393 [facility] Comment on above: Order Comment: 'TROP ' Serial specimen #1, #2 or #3: 1 Performed By: #### L 501.4020, L500.3400, L501.2450, L100.0100, L500.2500, L300.8000 ####[facility] [address] [place], [address] Lipase measurementOrdered By : Richie Borden on 07-13-2024 Lipase [Catalytic activity/Vol] 17 U/L Low 73-393 [facility] Liver Profileon 07-13-2024 Albumin [Mass/Vol] 2.5 g/dL Low 3.2-5.0 [facility] Comment on above: Order Comment: 'TROP ' Serial specimen #1, #2 or #3: 1 Performed By: #### L 501.4020, L500.3400, L501.2450, L100.0100, L500.2500, L300.8000 ####[facility] [address] [place], [address] ALK P 124 U/L High 45-117 [facility] Comment on above: Order Comment: 'TROP ' Serial specimen #1, #2 or #3: 1 Performed By: #### L 501.4020, L500.3400, L501.2450, L100.0100, L500.2500, L300.8000 ####[facility] [address] [place], [address] ALT [Catalytic activity/Vol] 24 U/L Normal 16-61 [facility] Comment on above: Order Comment: 'TROP ' Serial specimen #1, #2 or #3: 1 Performed By: #### L 501.4020, L500.3400, L501.2450, L100.0100, L500.2500, L300.8000 ####[facility] [address] [place], [address] AST [Catalytic activity/Vol] 25 U/L Normal 15-37 [facility] Comment on above: Order Comment: 'TROP ' Serial specimen #1, #2 or #3: 1 Performed By: #### L 501.4020, L500.3400, L501.2450, L100.0100, L500.2500, L300.8000 ####[facility] [address] [place], [address] Bilirubin [Mass/Vol] 0.30 mg/dL Normal 0.20-1.00 [facility] Comment on above: Order Comment: 'TROP ' Serial specimen #1, #2 or #3: 1 Result Comment: For patients on eltrombopag therapy, use of Dimension [place] TBIL is not recommended. Performed By: #### L 501.4020, L500.3400, L501.2450, L100.0100, L500.2500, L300.8000 ####[facility] [address] [place], [address] Bilirubin.direct [Mass/Vol] 0.15 mg/dL Normal 0.00-0.3 0 [facility] Comment on above: Order Comment: 'TROP ' Serial specimen #1, #2 or #3: 1 Performed By: #### L 501.4020, L500.3400, L501.2450, L100.0100, L500.2500, L300.8000 ####[facility] [address] [place], [address] Globulin (S) [Mass/Vol] 5.7 g/dL High 2.2-4.2 [facility] Comment on above: Order Comment: 'TROP ' Serial specimen #1, #2 or #3: 1 Performed By: #### L 501.4020, L500.3400, L501.2450, L100.0100, L500.2500, L300.8000 ####[facility] [address] [place], [address] T PROT 8.2 g/dL Normal 6.4-8.2 [facility] Comment on above: Order Comment: 'TROP ' Serial specimen #1, #2 or #3: 1 Performed By: #### L 501.4020, L500.3400, L501.2450, L100.0100, L500.2500, L300.8000 ####[facility] [address] [place], [address] Lymphocytes Auto (Unsp spec) [#/Vol]Ordered By: Richie Borden on 07-13-2024 Lymphocytes (Bld) [#/Vol] 3.25 10*3/uL 0.83-4.5 1 [facility] Lymphocytes/100 WBC Auto (Un sp spec)Ordered By: Richie Borden on 07-13-2024 Lymphocytes/100 WBC (Bld) 22.6 % 19-41 [facility] M100.678on 07-13-2024 M100.678 SARS-CoV-2 (COVID 19 ) Negative INFLUENZA A Negative INFLUENZA B Negative RSV PCR Negative Normal [facility] Comment on above: Performed By: #### M 100.678 ####[facility] [address] [place], [address] MCV (mean corpuscular volume ) determinationOrdered By: Richie Borden on 07-13-2024 MCV (RBC) [Entitic vol] 82.6 fL 80-94 [facility] Mean corpuscular hemoglobin (MCH) determinationOrdered By: Richie Borden on 07-13-2024 MCH (RBC) [Entitic mass] 26.8 pg Low 27.0-32.0 [facility] Mean corpuscular hemoglobin concentration (MCHC) determinationOrdered By: Richie Borden on 07-13-2024 MCHC (RBC) [Mass/Vol] 32.4 g/dL 32-36 [facility] Mean platelet volume determi nationOrdered By: Richie Borden on 07-13-2024 Platelet mean volume (Bld) [Entitic vol] 8.6 fL 6.2-12.0 [facility] Monocyte percentageOrdered B y: Richie Borden on 07-13-2024 Monocytes/100 WBC (Bld) 9.5 % 0-10 [facility] Neutrophil percentageOrdered By: Richie Borden on 07-13-2024 Neutrophils/100 WBC (Bld) 63.9 % 47-70 [facility] Nucleated red blood cell per centageOrdered By: Richie Borden on 07-13-2024 Nucleated RBC/100 WBC (Bld) [Ratio] 0 % 0-5 [facility] Platelet countOrdered By: Yvonne Borden on 07-13-2024 Platelets (Bld) [#/Vol] 477 10*3/uL High 150-450 [facility] Potassium measurementOrdered By: Richie Borden on 07-13-2024 Potassium [Moles/Vol] 3.6 mmol/L 3.5-5.1 [facility] RBC Auto (Bld) [#/Vol]Ordere d By: Richie Borden on 07-13-2024 RBC (Bld) [#/Vol] 5.30 10*6/uL 4.6-6.2 [facility] Serum anion gap measurementO rdered By: Richie Borden on 07-13-2024 Anion gap [Moles/Vol] 6 mmol/L 5-15 [facility] Serum globulin measurementOr dered By: Richie Borden on 07-13-2024 Globulin (S) [Mass/Vol] 5.7 g/dL High 2.2-4.2 [facility] Serum or plasma alanine hooper otransferase (ALT) measurementOrdered By: Richie Borden on 07-13-2024 ALT [Catalytic activity/Vol] 24 U/L 16-61 [facility] Serum or plasma albumin shantal urement (mass/volume)Ordered By: Richie Borden on 07-13-2024 Albumin [Mass/Vol] 2.5 g/dL Low 3.2-5.0 [facility] Serum or plasma alkaline radha sphatase measurementOrdered By: Richie Borden on 07-13-2024 ALP [Catalytic activity/Vol] 124 U/L High 45-117 [facility] Serum or plasma calcium shantal urement (mass/volume)Ordered By: Richie Borden on 07-13-2024 Calcium [Mass/Vol] 9.4 mg/dL 8.5-10.1 [facility] Serum or plasma creatinine m easurement (mass/volume)Ordered By: Richie Borden on 07-13-2024 Creatinine [Mass/Vol] 0.63 mg/dL Low 0.70-1.30 [facility] Comment on above: The validity of the calculated GFR & GFRAA in patients over 70 years has not been determined. Clinical correlation is essential. Serum or plasma urea nitroge n measurement (mass/volume)Ordered By: Richie Borden on 07-13-2024 Urea nitrogen [Mass/Vol] 11 mg/dL 7-18 [facility] Sodium levelOrdered By: Yuriy Borden on 07-13-2024 Sodium [Moles/Vol] 137 mmol/L 136-145 [facility] Total proteinOrdered By: Isidro Borden on 07-13-2024 Protein [Mass/Vol] 8.2 g/dL 6.4-8.2 [facility] Troponin IOrdered By: Richie Borden on 07-13-2024 Troponin I 6 pg/mL 3.0-78.0 [facility] Comment on above: Please Note: New Tanya t Units and Gender Specific Reference Ranges. For more information see Policy Stat Procedure [place] High Sensitivity Troponin (TNIH) and attachments. Troponin I High Sensitivity 6 pg/mL 3.0-78.0 [facility] Comment on above: Please Note: New Tanya t Units and Gender Specific Reference Ranges. For more information see Policy Stat Procedure [place] High Sensitivity Troponin (TNIH) and attachments. White blood cell (WBC) count Ordered By: Richie Borden on 07-13-2024 WBC (Bld) [#/Vol] 14.4 10*3/uL High 4.4-11.0 [facility] Culture, Blood (WB)on 2024 CUB Blood cultures x2, from two different sites No growth in 5 days. Normal [facility] Comment on above: Performed By: #### L 300.3900, L100.0100, L503.6005, L500.4050, L300.4310, M200.1000 ####[facility] [address] [place], [place], [id number] Discharge Instructionon 05-[address] [facility] Magnesiumon 06-18-2024 Magnesium [Mass/Vol] 1.9 mg/dL Normal 1.6-2.6 [facility] Comment on above: Performed By: #### L 501.5200, L501.2300 ####[facility] [address] [place], [place], [id number] Magnesium measurementOrdered By: Ronak Cui on 06-18-2024 Magnesium [Mass/Vol] 1.9 mg/dL 1.6-2.6 [facility] Phosphoruson 06-18-2024 Phosphate [Mass/Vol] 3.7 mg/dL Normal 2.5-4.9 [facility] Comment on above: Performed By: #### L 501.5200, L501.2300 ####[facility] [address] [place], [place], [id number] Phosphorus measurementOrdere d By: Ronak Cui on 06-18-2024 Phosphorus Level 3.7 mg/dL 2.5-4.9 [facility] Urine Cultureon 06-18-2024 URC Below infection leve rica GNR Poss Pseudomonas sp [place] Count 1000-10,000 Yeast, not Joleen albicans Yeast, not Joleen albicans Normal [facility] Comment on above: Performed By: #### M 100.2200, L400.0001 ####[facility] [address] [place], [place], [id number] Absolute neutrophil countOrd ered By: Ronak Cui on 06-17-2024 Neutrophils (Bld) [#/Vol] 6.1 10*3/uL 2.0-7.7 [facility] Albumin to globulin ratioOrd ered By: Ronak Cui on 06-17-2024 Albumin/Globulin [Mass ratio] 0.6 {ratio} Low 0.9-2.4 [facility] Basophil percentageOrdered B y: Ronak Cui on 06-17-2024 Basophils/100 WBC (Bld) 0.7 % 0-1 [facility] Bilirubin, totalOrdered By: Ronak Cui on 06-17-2024 Bilirubin [Mass/Vol] 0.40 mg/dL 0.20-1.00 [facility] Comment on above: For patients on eltr ombopag therapy, use of Dimension [place] TBIL is not recommended. Blood urea nitrogen (BUN)/cr eatinine ratioOrdered By: Ronak Cui on 06-17-2024 Urea nitrogen/Creatinine [Mass ratio] 14.0 mg/mg 03-17 [facility] CBC W/Diff, Automatedon 05-30 Absolute Lymph 2.50 X10 3/uL Normal 0.83-4.51 [facility] Comment on above: Performed By: #### L 501.5200, L100.0100, L501.2300, L500.4050, L501.9520 ####[facility] [address] [place], [address] Absolute Neut 6.1 X10 3/uL Normal 2.0-7.7 [facility] Comment on above: Performed By: #### L 501.5200, L100.0100, L501.2300, L500.4050, L501.9520 ####[facility] [address] [place], [address] Basophils/100 WBC (Bld) 0.7 % Normal 0-1 [facility] Comment on above: Performed By: #### L 501.5200, L100.0100, L501.2300, L500.4050, L501.9520 ####[facility] [address] [place], [address] Eosinophils/100 WBC (Bld) 5.5 % High 0-5 [facility] Comment on above: Performed By: #### L 501.5200, L100.0100, L501.2300, L500.4050, L501.9520 ####[facility] [address] [place], [address] Erythrocyte distribution width (RBC) [Ratio] 16.3 % High 11.6-14.6 [facility] Comment on above: Performed By: #### L 501.5200, L100.0100, L501.2300, L500.4050, L501.9520 ####[facility] [address] [place], [address] Hematocrit (Bld) [Volume fraction] 42.7 % Normal 40-54 [facility] Comment on above: Performed By: #### L 501.5200, L100.0100, L501.2300, L500.4050, L501.9520 ####[facility] [address] [place], [address] Hemoglobin (Bld) [Mass/Vol] 13.9 g/dL Normal 13.0-16. 5 [facility] Comment on above: Performed By: #### L 501.5200, L100.0100, L501.2300, L500.4050, L501.9520 ####[facility] [address] [place], [address] IG% 0.700 Normal 0.0-0.9 [facility] Comment on above: Result Comment: IG% - Immature Granulocytes (promyelocytes, myelocytes andmetamyelocytes) > 1% indicates that a LEFT SHIFT is Present. Performed By: #### L 501.5200, L100.0100, L501.2300, L500.4050, L501.9520 ####[facility] [address] [place], [address] Lymphocytes/100 WBC (Bld) 24.1 % Normal 19-41 [facility] Comment on above: Performed By: #### L 501.5200, L100.0100, L501.2300, L500.4050, L501.9520 ####[facility] [address] [place], [address] MCH (RBC) [Entitic mass] 27.7 pg Normal 27.0-32.0 [facility] Comment on above: Performed By: #### L 501.5200, L100.0100, L501.2300, L500.4050, L501.9520 ####[facility] [address] [place], [address] MCHC (RBC) [Mass/Vol] 32.6 g/dL Normal 32-36 [facility] Comment on above: Performed By: #### L 501.5200, L100.0100, L501.2300, L500.4050, L501.9520 ####[facility] [address] [place], [address] MCV (RBC) [Entitic vol] 85.2 fL Normal 80-94 [facility] Comment on above: Performed By: #### L 501.5200, L100.0100, L501.2300, L500.4050, L501.9520 ####[facility] [address] [place], [address] Monocytes/100 WBC (Bld) 9.9 % Normal 0-10 [facility] Comment on above: Performed By: #### L 501.5200, L100.0100, L501.2300, L500.4050, L501.9520 ####[facility] [address] [place], [address] Neutrophils/100 WBC (Bld) 59.1 % Normal 47-70 [facility] Comment on above: Performed By: #### L 501.5200, L100.0100, L501.2300, L500.4050, L501.9520 ####[facility] [address] [place], [address] Nucleated RBC (Bld) [#/Vol] 0 10*3/uL Normal 0-5 [facility] Comment on above: Performed By: #### L 501.5200, L100.0100, L501.2300, L500.4050, L501.9520 ####[facility] [address] [place], [address] Platelet mean volume (Bld) [Entitic vol] 9.0 fL Normal 6.2-12.0 [facility] Comment on above: Performed By: #### L 501.5200, L100.0100, L501.2300, L500.4050, L501.9520 ####[facility] [address] [place], [address] Platelets (Bld) [#/Vol] 363 10*3/uL Normal 150-450 [facility] Comment on above: Performed By: #### L 501.5200, L100.0100, L501.2300, L500.4050, L501.9520 ####[facility] [address] [place], [address] RBC (Bld) [#/Vol] 5.01 10*6/uL Normal 4.6-6.2 [facility] Comment on above: Performed By: #### L 501.5200, L100.0100, L501.2300, L500.4050, L501.9520 ####[facility] [address] [place], [address] RDW SD 50.2 fl High 35.1-43.9 [facility] Comment on above: Performed By: #### L 501.5200, L100.0100, L501.2300, L500.4050, L501.9520 ####[facility] [address] [place], [address] WBC (Bld) [#/Vol] 10.4 10*3/uL Normal 4.4-11.0 [facility] Comment on above: Performed By: #### L 501.5200, L100.0100, L501.2300, L500.4050, L501.9520 ####[facility] [address] [place], [address] Carbon dioxide measurementOr dered By: Ronak Cui on 06-17-2024 CO2 [Moles/Vol] 24.0 mmol/L 21.0-32.0 [facility] Chloride measurementOrdered By: Ronak Cui on 06-17-2024 Chloride [Moles/Vol] 108 mmol/L High 98-107 [facility] Comprehensive Metabolic Prof ilon 06-17-2024 Albumin [Mass/Vol] 2.4 g/dL Low 3.2-5.0 [facility] Comment on above: Performed By: #### L 501.5200, L100.0100, L501.2300, L500.4050, L501.9520 ####[facility] [address] [place], [address] Albumin/Globulin [Mass ratio] 0.6 {ratio} Low 0.9-2.4 [facility] Comment on above: Performed By: #### L 501.5200, L100.0100, L501.2300, L500.4050, L501.9520 ####[facility] [address] [place], [address] ALK P 130 U/L High 45-117 [facility] Comment on above: Performed By: #### L 501.5200, L100.0100, L501.2300, L500.4050, L501.9520 ####[facility] [address] [place], [address] ALT [Catalytic activity/Vol] 17 U/L Normal 16-61 [facility] Comment on above: Performed By: #### L 501.5200, L100.0100, L501.2300, L500.4050, L501.9520 ####[facility] [address] [place], [address] AST [Catalytic activity/Vol] 20 U/L Normal 15-37 [facility] Comment on above: Performed By: #### L 501.5200, L100.0100, L501.2300, L500.4050, L501.9520 ####[facility] [address] [place], [address] Bilirubin [Mass/Vol] 0.40 mg/dL Normal 0.20-1.00 [facility] Comment on above: Result Comment: For patients on eltrombopag therapy, use of Dimension [place] TBIL is not recommended. Performed By: #### L 501.5200, L100.0100, L501.2300, L500.4050, L501.9520 ####[facility] [address] [place], [address] BUN/CRE 14.0 RATIO Normal 10-20 [facility] Comment on above: Performed By: #### L 501.5200, L100.0100, L501.2300, L500.4050, L501.9520 ####[facility] [address] [place], [address] CA,Total 8.9 mg/dL Normal 8.5-10.1 [facility] Comment on above: Performed By: #### L 501.5200, L100.0100, L501.2300, L500.4050, L501.9520 ####[facility] [address] [place], [address] Chloride [Moles/Vol] 108 mmol/L High 98-107 [facility] Comment on above: Performed By: #### L 501.5200, L100.0100, L501.2300, L500.4050, L501.9520 ####[facility] [address] [place], [address] CO2 [Moles/Vol] 24.0 mmol/L Normal 21.0-32.0 [facility] Comment on above: Performed By: #### L 501.5200, L100.0100, L501.2300, L500.4050, L501.9520 ####[facility] [address] [place], [address] Creatinine [Mass/Vol] 0.57 mg/dL Low 0.70-1.30 [facility] Comment on above: Result Comment: The validity of the calculated GFR GFRAA in patients over70 years has not been determined. Clinical correlation isessential. Performed By: #### L 501.5200, L100.0100, L501.2300, L500.4050, L501.9520 ####[facility] [address] [place], [address] ECRCL 132.65 ml/min Normal [facility] Comment on above: Performed By: #### L 501.5200, L100.0100, L501.2300, L500.4050, L501.9520 ####[facility] [address] [place], [address] EST GFR - AA 184 mL/min Normal >60 [facility] Comment on above: Result Comment: Afri can [place] GFR Calc Performed By: #### L 501.5200, L100.0100, L501.2300, L500.4050, L501.9520 ####[facility] [address] [place], [address] GAP 6 Normal 5-15 [facility] Comment on above: Performed By: #### L 501.5200, L100.0100, L501.2300, L500.4050, L501.9520 ####[facility] [address] [place], [address] GFR/1.73 sq M.predicted among non-blacks MDRD (S/P/Bld) [Vol rate/Area] 152 mL/min/{1.73_m2} Normal >60 [facility] Comment on above: Result Comment: Non- GFR Calc Performed By: #### L 501.5200, L100.0100, L501.2300, L500.4050, L501.9520 ####[facility] [address] [place], [address] Globulin (S) [Mass/Vol] 4.3 g/dL High 2.2-4.2 [facility] Comment on above: Performed By: #### L 501.5200, L100.0100, L501.2300, L500.4050, L501.9520 ####[facility] [address] [place], [address] Glucose [Mass/Vol] 101 mg/dL Normal 74-106 [facility] Comment on above: Result Comment: Fast ing Glucose result from 100 to 125 mg/dLsuggests IMPAIRED HOMEOSTASIS per A.D.A. criteria. Performed By: #### L 501.5200, L100.0100, L501.2300, L500.4050, L501.9520 ####[facility] [address] [place], [address] Potassium [Moles/Vol] 3.5 mmol/L Normal 3.5-5.1 [facility] Comment on above: Performed By: #### L 501.5200, L100.0100, L501.2300, L500.4050, L501.9520 ####[facility] [address] [place], [address] Sodium [Moles/Vol] 139 mmol/L Normal 136-145 [facility] Comment on above: Performed By: #### L 501.5200, L100.0100, L501.2300, L500.4050, L501.9520 ####[facility] [address] [place], [address] T PROT 6.7 g/dL Normal 6.4-8.2 [facility] Comment on above: Performed By: #### L 501.5200, L100.0100, L501.2300, L500.4050, L501.9520 ####[facility] [address] [place], [address] Urea nitrogen [Mass/Vol] 8 mg/dL Normal 7-18 [facility] Comment on above: Performed By: #### L 501.5200, L100.0100, L501.2300, L500.4050, L501.9520 ####[facility] [address] [place], [address] Culture, Blood (WB)on 2024 CUB Blood cultures x2, from two different sites No growth in 5 days. Normal [facility] Comment on above: Performed By: #### M 200.1000 ####[facility] [address] [place], [address] CUB Blood cultures x2, from two different sites No growth in 5 days. Normal [facility] Comment on above: Performed By: #### M 200.1000 ####[facility] [address] [place], [address] Eosinophil percentageOrdered By: Ronak Cui on 06-17-2024 Eosinophils/100 WBC (Bld) 5.5 % High 0-5 [facility] Erythrocyte distribution wid th (RBC) [Ratio]Ordered By: Ronak Cui on 06-17-2024 Erythrocyte distribution width (RBC) [Entitic vol] 50.2 fL High 35.1-43.9 [facility] Erythrocyte distribution wid th ratioOrdered By: Ronak Cui on 06-17-2024 Erythrocyte distribution width (RBC) [Ratio] 16.3 % High 11.6-14.6 [facility] Estimated glomerular filtrat ion rate (GFR) AmericanOrdered By: Ronak Cui on 06-17-2024 Estimated GFR (MDRD) Amer 184 mL/min >60 [facility] Comment on above: GFR Calc Estimation of creatinine elzbieta aranceOrdered By: Ronak Cui on 06-17-2024 Estimated Creatinine Clearance Calc 132.65 ml/min [facility] Glomerular filtration rate ( GFR) estimationOrdered By: Ronak Cui on 06-17-2024 Estimated GFR (MDRD) Non-Af Amer 152 mL/min >60 [facility] Comment on above: Non- GFR Calc Glucose measurementOrdered B y: Ronak Cui on 06-17-2024 Glucose [Mass/Vol] 101 mg/dL 74-106 [facility] Comment on above: Fasting Glucose resu lt from 100 to 125 mg/dL suggests IMPAIRED HOMEOSTASIS per A.D.A. criteria. Hematocrit Auto (Bld) [Volum e fraction]Ordered By: Ronak Cui on 06-17-2024 Hematocrit (Bld) [Volume fraction] 42.7 % 40-54 [facility] Hemoglobin measurementOrdere d By: Ronak Cui on 06-17-2024 Hemoglobin (Bld) [Mass/Vol] 13.9 g/dL 13.0-16. 5 [facility] Immature granulocytes/100 WB C Auto (Bld)Ordered By: Ronak Cui on 06-17-2024 Immature granulocytes/100 WBC (Bld) 0.700 % 0.0-0.9 [facility] Comment on above: IG% - Immature Granu locytes (promyelocytes, myelocytes and metamyelocytes) > 1% indicates that a LEFT SHIFT is Present. Laboratory - Chemistry and C hemistry - challengeOrdered By: Ronak Cui on 06-17-2024 AST [Catalytic activity/Vol] 20 U/L 15-37 [facility] Lymphocytes Auto (Unsp spec) [#/Vol]Ordered By: Ronak Cui on 06-17-2024 Lymphocytes (Bld) [#/Vol] 2.50 10*3/uL 0.83-4.5 1 [facility] Lymphocytes/100 WBC Auto (Un sp spec)Ordered By: Ronak Cui on 06-17-2024 Lymphocytes/100 WBC (Bld) 24.1 % 19-41 [facility] MCV (mean corpuscular volume ) determinationOrdered By: Ronak Cui on 06-17-2024 MCV (RBC) [Entitic vol] 85.2 fL 80-94 [facility] Magnesiumon 06-17-2024 Magnesium [Mass/Vol] 1.8 mg/dL Normal 1.6-2.6 [facility] Comment on above: Performed By: #### L 501.5200, L100.0100, L501.2300, L500.4050, L501.9520 ####[facility] [address] [place], [address] Mean corpuscular hemoglobin (MCH) determinationOrdered By: Ronak Cui on 06-17-2024 MCH (RBC) [Entitic mass] 27.7 pg 27.0-32.0 [facility] Mean corpuscular hemoglobin concentration (MCHC) determinationOrdered By: Ronak Cui on 06-17-2024 MCHC (RBC) [Mass/Vol] 32.6 g/dL 32-36 [facility] Mean platelet volume determi nationOrdered By: Ronak Cui on 06-17-2024 Platelet mean volume (Bld) [Entitic vol] 9.0 fL 6.2-12.0 [facility] Monocyte percentageOrdered B y: Ronak Cui on 06-17-2024 Monocytes/100 WBC (Bld) 9.9 % 0-10 [facility] Neutrophil percentageOrdered By: Ronak Cui on 06-17-2024 Neutrophils/100 WBC (Bld) 59.1 % 47-70 [facility] Nucleated red blood cell per centageOrdered By: Ronak Cui on 06-17-2024 Nucleated RBC/100 WBC (Bld) [Ratio] 0 % 0-5 [facility] Phosphoruson 06-17-2024 Phosphate [Mass/Vol] 3.2 mg/dL Normal 2.5-4.9 [facility] Comment on above: Performed By: #### L 501.5200, L100.0100, L501.2300, L500.4050, L501.9520 ####[facility] [address] [place], [address] Platelet countOrdered By: Thomas Cui on 06-17-2024 Platelets (Bld) [#/Vol] 363 10*3/uL 150-450 [facility] Potassium measurementOrdered By: Ronak Cui on 06-17-2024 Potassium [Moles/Vol] 3.5 mmol/L 3.5-5.1 [facility] RBC Auto (Bld) [#/Vol]Ordere d By: Ronak Cui on 06-17-2024 RBC (Bld) [#/Vol] 5.01 10*6/uL 4.6-6.2 [facility] Serum anion gap measurementO rdered By: Ronak Cui on 06-17-2024 Anion gap [Moles/Vol] 6 mmol/L 5-15 [facility] Serum globulin measurementOr dered By: Ronak Cui on 06-17-2024 Globulin (S) [Mass/Vol] 4.3 g/dL High 2.2-4.2 [facility] Serum or plasma alanine hooper otransferase (ALT) measurementOrdered By: Ronak Cui on 06-17-2024 ALT [Catalytic activity/Vol] 17 U/L 16-61 [facility] Serum or plasma albumin shantal urement (mass/volume)Ordered By: Ronak Cui on 06-17-2024 Albumin [Mass/Vol] 2.4 g/dL Low 3.2-5.0 [facility] Serum or plasma alkaline radha sphatase measurementOrdered By: Ronak Cui on 06-17-2024 ALP [Catalytic activity/Vol] 130 U/L High 45-117 [facility] Serum or plasma calcium shantal urement (mass/volume)Ordered By: Ronak Cui on 06-17-2024 Calcium [Mass/Vol] 8.9 mg/dL 8.5-10.1 [facility] Serum or plasma creatinine m easurement (mass/volume)Ordered By: Ronak Cui on 06-17-2024 Creatinine [Mass/Vol] 0.57 mg/dL Low 0.70-1.30 [facility] Comment on above: The validity of the calculated GFR & GFRAA in patients over 70 years has not been determined. Clinical correlation is essential. Serum or plasma urea nitroge n measurement (mass/volume)Ordered By: Ronak Cui on 06-17-2024 Urea nitrogen [Mass/Vol] 8 mg/dL 7-18 [facility] Sodium levelOrdered By: Johnny Cui on 06-17-2024 Sodium [Moles/Vol] 139 mmol/L 136-145 [facility] TSH QnOrdered By: Ronak muro on 06-17-2024 Thyroid Stimulating Hormone (TSH) 5.010 uIU/mL High 0.358-3.74 0 [facility] Thyroid Stim Hormone (TSH)on 06-17-2024 TSH 5.010 uIU/mL High 0.358-3.74 0 [facility] Comment on above: Performed By: #### L 501.5200, L100.0100, L501.2300, L500.4050, L501.9520 ####[facility] [address] [place], [place], [id number] Total proteinOrdered By: Juan Cui on 06-17-2024 Protein [Mass/Vol] 6.7 g/dL 6.4-8.2 [facility] White blood cell (WBC) count Ordered By: Ronak Cui on 06-17-2024 WBC (Bld) [#/Vol] 10.4 10*3/uL 4.4-11.0 [facility] 12 Lead EKGon 06-16-2024 12 Lead EKG Normal [facility] Bilirubin Test strip Ql (U)O rdered By: Christian Merlos on 06-16-2024 Bilirubin Ql (U) Negative Negative [facility] Blood cultureOrdered By: Dorina Merlos on 06-16-2024 Bacteria identified Cx Nom (Bld) No growth in 5 days. [facility] Bacteria identified Cx Nom (Bld) No growth in 5 days. [facility] Brain/Head without Contrasto n 06-16-2024 Brain/Head without Contrast Normal [facility] CBC W/Diff, Automatedon 05-29 Absolute Lymph 2.25 X10 3/uL Normal 0.83-4.51 [facility] Comment on above: Performed By: #### L 300.3900, L100.0100, L503.6005, L500.4050, L300.4310, M200.1000 ####[facility] [address] [place], [address] Absolute Neut 10.0 X10 3/uL High 2.0-7.7 [facility] Comment on above: Performed By: #### L 300.3900, L100.0100, L503.6005, L500.4050, L300.4310, M200.1000 ####[facility] [address] [place], [address] Basophils/100 WBC (Bld) 0.5 % Normal 0-1 [facility] Comment on above: Performed By: #### L 300.3900, L100.0100, L503.6005, L500.4050, L300.4310, M200.1000 ####[facility] [address] [place], [address] Eosinophils/100 WBC (Bld) 3.2 % Normal 0-5 [facility] Comment on above: Performed By: #### L 300.3900, L100.0100, L503.6005, L500.4050, L300.4310, M200.1000 ####[facility] [address] [place], [address] Erythrocyte distribution width (RBC) [Ratio] 16.1 % High 11.6-14.6 [facility] Comment on above: Performed By: #### L 300.3900, L100.0100, L503.6005, L500.4050, L300.4310, M200.1000 ####[facility] [address] [place], [address] Hematocrit (Bld) [Volume fraction] 44.4 % Normal 40-54 [facility] Comment on above: Performed By: #### L 300.3900, L100.0100, L503.6005, L500.4050, L300.4310, M200.1000 ####[facility] [address] [place], [address] Hemoglobin (Bld) [Mass/Vol] 14.5 g/dL Normal 13.0-16. 5 [facility] Comment on above: Performed By: #### L 300.3900, L100.0100, L503.6005, L500.4050, L300.4310, M200.1000 ####[facility] [address] [place], [address] IG% 0.600 Normal 0.0-0.9 [facility] Comment on above: Result Comment: IG% - Immature Granulocytes (promyelocytes, myelocytes andmetamyelocytes) > 1% indicates that a LEFT SHIFT is Present. Performed By: #### L 300.3900, L100.0100, L503.6005, L500.4050, L300.4310, M200.1000 ####[facility] [address] [place], [address] Lymphocytes/100 WBC (Bld) 16.2 % Low 19-41 [facility] Comment on above: Performed By: #### L 300.3900, L100.0100, L503.6005, L500.4050, L300.4310, M200.1000 ####[facility] [address] [place], [address] MCH (RBC) [Entitic mass] 27.8 pg Normal 27.0-32.0 [facility] Comment on above: Performed By: #### L 300.3900, L100.0100, L503.6005, L500.4050, L300.4310, M200.1000 ####[facility] [address] [place], [address] MCHC (RBC) [Mass/Vol] 32.7 g/dL Normal 32-36 [facility] Comment on above: Performed By: #### L 300.3900, L100.0100, L503.6005, L500.4050, L300.4310, M200.1000 ####[facility] [address] [place], [address] MCV (RBC) [Entitic vol] 85.1 fL Normal 80-94 [facility] Comment on above: Performed By: #### L 300.3900, L100.0100, L503.6005, L500.4050, L300.4310, M200.1000 ####[facility] [address] [place], [address] Monocytes/100 WBC (Bld) 7.3 % Normal 0-10 [facility] Comment on above: Performed By: #### L 300.3900, L100.0100, L503.6005, L500.4050, L300.4310, M200.1000 ####[facility] [address] [place], [address] Neutrophils/100 WBC (Bld) 72.2 % High 47-70 [facility] Comment on above: Performed By: #### L 300.3900, L100.0100, L503.6005, L500.4050, L300.4310, M200.1000 ####[facility] [address] [place], [address] Nucleated RBC (Bld) [#/Vol] 0 10*3/uL Normal 0-5 [facility] Comment on above: Performed By: #### L 300.3900, L100.0100, L503.6005, L500.4050, L300.4310, M200.1000 ####[facility] [address] [place], [address] Platelet mean volume (Bld) [Entitic vol] 8.7 fL Normal 6.2-12.0 [facility] Comment on above: Performed By: #### L 300.3900, L100.0100, L503.6005, L500.4050, L300.4310, M200.1000 ####[facility] [address] [place], [address] Platelets (Bld) [#/Vol] 387 10*3/uL Normal 150-450 [facility] Comment on above: Performed By: #### L 300.3900, L100.0100, L503.6005, L500.4050, L300.4310, M200.1000 ####[facility] [address] [place], [address] RBC (Bld) [#/Vol] 5.22 10*6/uL Normal 4.6-6.2 [facility] Comment on above: Performed By: #### L 300.3900, L100.0100, L503.6005, L500.4050, L300.4310, M200.1000 ####[facility] [address] [place], [address] RDW SD 49.8 fl High 35.1-43.9 [facility] Comment on above: Performed By: #### L 300.3900, L100.0100, L503.6005, L500.4050, L300.4310, M200.1000 ####[facility] [address] [place], [address] WBC (Bld) [#/Vol] 13.9 10*3/uL High 4.4-11.0 [facility] Comment on above: Performed By: #### L 300.3900, L100.0100, L503.6005, L500.4050, L300.4310, M200.1000 ####[facility] [address] [place], [address] Calcium oxalate crystals LM Ql (Urine sed)Ordered By: Christian Merlos on 06-16-2024 Urine Calcium Oxalate Crystals 2+ /hpf [facility] Chest 1 View (Portable)on Chest 1 View (Portable) Normal [facility] Comprehensive Metabolic Prof ilon 06-16-2024 Albumin [Mass/Vol] 2.7 g/dL Low 3.2-5.0 [facility] Comment on above: Performed By: #### L 300.3900, L100.0100, L503.6005, L500.4050, L300.4310, M200.1000 ####[facility] [address] [place], [address] Albumin/Globulin [Mass ratio] 0.6 {ratio} Low 0.9-2.4 [facility] Comment on above: Performed By: #### L 300.3900, L100.0100, L503.6005, L500.4050, L300.4310, M200.1000 ####[facility] [address] [place], [address] ALK P 143 U/L High 45-117 [facility] Comment on above: Performed By: #### L 300.3900, L100.0100, L503.6005, L500.4050, L300.4310, M200.1000 ####[facility] [address] [place], [address] ALT [Catalytic activity/Vol] 19 U/L Normal 16-61 [facility] Comment on above: Performed By: #### L 300.3900, L100.0100, L503.6005, L500.4050, L300.4310, M200.1000 ####[facility] [address] [place], [address] AST [Catalytic activity/Vol] 20 U/L Normal 15-37 [facility] Comment on above: Performed By: #### L 300.3900, L100.0100, L503.6005, L500.4050, L300.4310, M200.1000 ####[facility] [address] [place], [address] Bilirubin [Mass/Vol] 0.40 mg/dL Normal 0.20-1.00 [facility] Comment on above: Result Comment: For patients on eltrombopag therapy, use of Dimension [place] TBIL is not recommended. Performed By: #### L 300.3900, L100.0100, L503.6005, L500.4050, L300.4310, M200.1000 ####[facility] [address] [place], [address] BUN/CRE 15.7 RATIO Normal 10-20 [facility] Comment on above: Performed By: #### L 300.3900, L100.0100, L503.6005, L500.4050, L300.4310, M200.1000 ####[facility] [address] [place], [address] CA,Total 9.4 mg/dL Normal 8.5-10.1 [facility] Comment on above: Performed By: #### L 300.3900, L100.0100, L503.6005, L500.4050, L300.4310, M200.1000 ####[facility] [address] [place], [address] Chloride [Moles/Vol] 108 mmol/L High 98-107 [facility] Comment on above: Performed By: #### L 300.3900, L100.0100, L503.6005, L500.4050, L300.4310, M200.1000 ####[facility] [address] [place], [address] CO2 [Moles/Vol] 27.0 mmol/L Normal 21.0-32.0 [facility] Comment on above: Performed By: #### L 300.3900, L100.0100, L503.6005, L500.4050, L300.4310, M200.1000 ####[facility] [address] [place], [address] Creatinine [Mass/Vol] 0.70 mg/dL Normal 0.70-1.30 [facility] Comment on above: Result Comment: The validity of the calculated GFR GFRAA in patients over70 years has not been determined. Clinical correlation isessential. Performed By: #### L 300.3900, L100.0100, L503.6005, L500.4050, L300.4310, M200.1000 ####[facility] [address] [place], [address] ECRCL 108.01 ml/min Normal [facility] Comment on above: Performed By: #### L 300.3900, L100.0100, L503.6005, L500.4050, L300.4310, M200.1000 ####[facility] [address] [place], [address] EST GFR - AA 146 mL/min Normal >60 [facility] Comment on above: Result Comment: Afri can Niuean GFR Calc Performed By: #### L 300.3900, L100.0100, L503.6005, L500.4050, L300.4310, M200.1000 ####[facility] [address] [place], [address] GAP 5 Normal 5-15 [facility] Comment on above: Performed By: #### L 300.3900, L100.0100, L503.6005, L500.4050, L300.4310, M200.1000 ####[facility] [address] [place], [address] GFR/1.73 sq M.predicted among non-blacks MDRD (S/P/Bld) [Vol rate/Area] 121 mL/min/{1.73_m2} Normal >60 [facility] Comment on above: Result Comment: Non- GFR Calc Performed By: #### L 300.3900, L100.0100, L503.6005, L500.4050, L300.4310, M200.1000 ####[facility] [address] [place], [address] Globulin (S) [Mass/Vol] 4.8 g/dL High 2.2-4.2 [facility] Comment on above: Performed By: #### L 300.3900, L100.0100, L503.6005, L500.4050, L300.4310, M200.1000 ####[facility] [address] [place], [address] Glucose [Mass/Vol] 114 mg/dL High 74-106 [facility] Comment on above: Result Comment: Fast ing Glucose result from 100 to 125 mg/dLsuggests IMPAIRED HOMEOSTASIS per A.D.A. criteria. Performed By: #### L 300.3900, L100.0100, L503.6005, L500.4050, L300.4310, M200.1000 ####[facility] [address] [place], [address] Potassium [Moles/Vol] 3.7 mmol/L Normal 3.5-5.1 [facility] Comment on above: Performed By: #### L 300.3900, L100.0100, L503.6005, L500.4050, L300.4310, M200.1000 ####[facility] [address] [place], [address] Sodium [Moles/Vol] 140 mmol/L Normal 136-145 [facility] Comment on above: Performed By: #### L 300.3900, L100.0100, L503.6005, L500.4050, L300.4310, M200.1000 ####[facility] [address] [place], [place], [id number] T PROT 7.5 g/dL Normal 6.4-8.2 [facility] Comment on above: Performed By: #### L 300.3900, L100.0100, L503.6005, L500.4050, L300.4310, M200.1000 ####[facility] [address] [place], [address] Urea nitrogen [Mass/Vol] 11 mg/dL Normal 7-18 [facility] Comment on above: Performed By: #### L 300.3900, L100.0100, L503.6005, L500.4050, L300.4310, M200.1000 ####[facility] [address] [place], [address] Emergency Department Summary on 06-16-2024 Emergency Department Summary Normal [facility] Epithelial cells.squamous LM Ql (Urine sed)Ordered By: Christian Merlos on 06-16-2024 Epithelial cells.squamous LM.HPF (Urine sed) [#/Area] 0 /[HPF] 0-5 [facility] Glucose Ql (U)Ordered By: Rama Merlos on 06-16-2024 Urine Glucose (UA) Normal mg/dl Normal [facility] H AND P Exam - Hospitaliston 06-16-2024 H&P Exam - Hospitalist Normal [facility] Hyaline casts LM.LPF (Urine sed) [#/Area]Ordered By: Christian Merlos on 06-16-2024 Hyaline casts LM Ql (Urine sed) 0-5 SEEN /lpf 0-5 [facility] International normalized rat io (INR) calculationOrdered By: Christian Merlos on 06-16-2024 INR Coag (Bld) [Relative time] 1.1 {INR} [facility] Ketones Test strip Ql (U)Ord ered By: Christian Merlos on 06-16-2024 Ketones Ql (U) 5 mg/dl High Negative [facility] Lactic Acidon 06-16-2024 Lactate [Moles/Vol] 1.1 mmol/L Normal 0.4-1.9 [facility] Comment on above: Order Comment: Y Performed By: #### L 300.3900, L100.0100, L503.6005, L500.4050, L300.4310, M200.1000 ####[facility] [address] [place], [place], [id number] Lactic acid measurementOrder ed By: Christian Merlos on 06-16-2024 Lactate [Moles/Vol] 1.1 mmol/L 0.4-2.0 [facility] Microscopic analysis of urin e for red blood cells (RBC)Ordered By: Christian Merlos on 06-16-2024 Urine RBC 10-25 SEEN /hpf 0-5 [facility] Mucus LM Ql (Urine sed)Order ed By: Christian Merlos on 06-16-2024 Mucus Ql (Urine sed) 1+ /hpf [facility] Nitrite Test strip Ql (U)Ord ered By: Christian Merlos on 06-16-2024 Nitrite Ql (U) Positive High Negative [facility] Partial Thromboplast Timeon 06-16-2024 aPTT Coag (Bld) [Time] 43.2 s High 24.1-36.2 [facility] Comment on above: Performed By: #### L 300.3900, L100.0100, L503.6005, L500.4050, L300.4310, M200.1000 ####[facility] [address] [place], [address] Protein Test strip Ql (U)Ord ered By: Christian Merlos on 06-16-2024 Protein Ql (U) 30 mg/dl High Negative [facility] Prothrombin Time w/INRon INR Coag (PPP) [Relative time] 1.1 {INR} Normal [facility] Comment on above: Performed By: #### L 300.3900, L100.0100, L503.6005, L500.4050, L300.4310, M200.1000 ####[facility] [address] [place], [address] PT Coag (PPP) [Time] 13.9 s Normal 11.7-14.9 [facility] Comment on above: Performed By: #### L 300.3900, L100.0100, L503.6005, L500.4050, L300.4310, M200.1000 ####[facility] [address] [place], [address] Prothrombin timeOrdered By: Christian Merlos on 06-16-2024 PT Coag (PPP) [Time] 13.9 s 11.7-14.9 [facility] Urinalysis, Completeon 06-16 CA OX CRYSTAL 2+ /hpf Normal [facility] Comment on above: Order Comment: COLLE CTOR TO SPECIFY Performed By: #### M 100.2200, L400.0001 ####[facility] [address] [place], [address] CAST,HYALINE 0-5 SEEN Normal 0-5 [facility] Comment on above: Order Comment: COLLE CTOR TO SPECIFY Performed By: #### M 100.2200, L400.0001 ####[facility] [address] [place], [address] EPI,SQUAMOUS 0-5 SEEN Normal 0-5 [facility] Comment on above: Order Comment: ELMA CTOR TO SPECIFY Performed By: #### M 100.2200, L400.0001 ####[facility] [address] [place], [address] RBC 10-25 SEEN Normal 0-5 [facility] Comment on above: Order Comment: ELMA CTOR TO SPECIFY Performed By: #### M 100.2200, L400.0001 ####[facility] [address] [place], [address] BACTERIA 1+ /hpf Normal None Seen [facility] Comment on above: Order Comment: ELMA CTOR TO SPECIFY Performed By: #### M 100.2200, L400.0001 ####[facility] [address] [place], [address] WBC 50-100 SEEN Normal 0-5 [facility] Comment on above: Order Comment: ELMA CTOR TO SPECIFY Performed By: #### M 100.2200, L400.0001 ####[facility] [address] [place], [address] Mucus Ql (Urine sed) 1+ /hpf Normal [facility] Comment on above: Order Comment: ELMA CTOR TO SPECIFY Performed By: #### M 100.2200, L400.0001 ####[facility] [address] [place], [address] Urine blood detectionOrdered By: Christian Merlos on 06-16-2024 Urine Occult Blood 150 /ul High Negative [facility] Urine clarityOrdered By: Dorina Merlos on 06-16-2024 Clarity (U) Sl. Cloudy Clear [facility] Urine color determinationOrd ered By: Christian Merlos on 06-16-2024 Color (U) Yellow Yellow [facility] Urine cultureOrdered By: Dorina Merlos on 06-16-2024 Bacteria identified Cx Nom (U) GNR Poss Pseudomonas sp Abnormal [facility] Bacteria identified Cx Nom (U) Yeast, not Joleen albicans Abnormal [facility] Urine leukocyte esterase det ection by dipstickOrdered By: Christian Merlos on 06-16-2024 Leukocyte esterase Test strip Ql (U) 100 /ul High Negative [facility] Urine pHOrdered By: Christian Merlos on 06-16-2024 pH (U) 6.5 [pH] 5.0 - 8.0 [facility] Urine sediment bacteria coun t by microscopy (number/high power field)Ordered By: Christian Merlos on 06-16-2024 Bacteria LM.HPF (Urine sed) [#/Area] 1 /[HPF] None Seen [facility] Urine specific gravity measu rementOrdered By: Christian Merlos on 06-16-2024 Specific gravity (U) [Rel density] 1.015 1.002-1.03 0 [facility] Urobilinogen Ql (U)Ordered B y: Christian Merlos on 06-16-2024 Urine Urobilinogen Normal mg/dl Normal [facility] White blood cell countOrdere d By: Christian Merlos on 06-16-2024 Urine WBC 50-100 SEEN /hpf 0-5 [facility] aPTT Coag (PPP) [Time]Ordere d By: Christian Merlos on 06-16-2024 aPTT Coag (Bld) [Time] 43.2 s High 24.1-36.2 [facility] Absolute neutrophil countOrd ered By: Darian Arceo on 06-14-2024 Neutrophils (Bld) [#/Vol] 4.4 10*3/uL 2.0-7.7 [facility] Basic Metabolic Profile (BMP )on 06-14-2024 BUN/CRE 12.4 RATIO Normal 10-20 [facility] Comment on above: Performed By: #### L 100.0100, L500.2500 ####[facility] [address] [place], [place], [address] CA,Total 8.5 mg/dL Normal 8.5-10.1 [facility] Comment on above: Performed By: #### L 100.0100, L500.2500 ####[facility] [address] [place], [address] Chloride [Moles/Vol] 111 mmol/L High 98-107 [facility] Comment on above: Performed By: #### L 100.0100, L500.2500 ####[facility] [address] [place], [address] CO2 [Moles/Vol] 26.0 mmol/L Normal 21.0-32.0 [facility] Comment on above: Performed By: #### L 100.0100, L500.2500 ####[facility] [address] [place], [address] Creatinine [Mass/Vol] 0.81 mg/dL Normal 0.70-1.30 [facility] Comment on above: Result Comment: The validity of the calculated GFR GFRAA in patients over70 years has not been determined. Clinical correlation isessential. Performed By: #### L 100.0100, L500.2500 ####[facility] [address] [place], [address] ECRCL 106.44 ml/min Normal [facility] Comment on above: Performed By: #### L 100.0100, L500.2500 ####[facility] [address] [place], [address] EST GFR - AA 124 mL/min Normal >60 [facility] Comment on above: Result Comment: Afri can Niuean GFR Calc Performed By: #### L 100.0100, L500.2500 ####[facility] [address] [place], [address] GAP 7 Normal 5-15 [facility] Comment on above: Performed By: #### L 100.0100, L500.2500 ####[facility] [address] [place], [address] GFR/1.73 sq M.predicted among non-blacks MDRD (S/P/Bld) [Vol rate/Area] 102 mL/min/{1.73_m2} Normal >60 [facility] Comment on above: Result Comment: Non- GFR Calc Performed By: #### L 100.0100, L500.2500 ####[facility] [address] [place], [address] Glucose [Mass/Vol] 161 mg/dL High 74-106 [facility] Comment on above: Result Comment: Fast ing Glucose result greater than or equal to 126 mg/dLsuggests DIABETES MELLITUS per A.D.A. criteria. Performed By: #### L 100.0100, L500.2500 ####[facility] [address] [place], [address] Potassium [Moles/Vol] 3.2 mmol/L Low 3.5-5.1 [facility] Comment on above: Performed By: #### L 100.0100, L500.2500 ####[facility] [address] [place], [address] Sodium [Moles/Vol] 144 mmol/L Normal 136-145 [facility] Comment on above: Performed By: #### L 100.0100, L500.2500 ####[facility] [address] [place], [address] Urea nitrogen [Mass/Vol] 10 mg/dL Normal 7-18 [facility] Comment on above: Performed By: #### L 100.0100, L500.2500 ####[facility] [address] [place], [address] Basophil percentageOrdered B y: Darian Arceo on 06-14-2024 Basophils/100 WBC (Bld) 0.6 % 0-1 [facility] Blood urea nitrogen (BUN)/cr eatinine ratioOrdered By: Darian Arceo on 06-14-2024 Urea nitrogen/Creatinine [Mass ratio] 12.4 mg/mg 10-20 [facility] CBC W/Diff, Automatedon 05-29 Absolute Lymph 2.62 X10 3/uL Normal 0.83-4.51 [facility] Comment on above: Performed By: #### L 100.0100, L500.2500 ####[facility] [address] [place], [address] Absolute Neut 4.4 X10 3/uL Normal 2.0-7.7 [facility] Comment on above: Performed By: #### L 100.0100, L500.2500 ####[facility] [address] [place], [address] Basophils/100 WBC (Bld) 0.6 % Normal 0-1 [facility] Comment on above: Performed By: #### L 100.0100, L500.2500 ####[facility] [address] [place], [address] Eosinophils/100 WBC (Bld) 6.1 % High 0-5 [facility] Comment on above: Performed By: #### L 100.0100, L500.2500 ####[facility] [address] [place], [address] Erythrocyte distribution width (RBC) [Ratio] 16.3 % High 11.6-14.6 [facility] Comment on above: Performed By: #### L 100.0100, L500.2500 ####[facility] [address] [place], [address] Hematocrit (Bld) [Volume fraction] 40.4 % Normal 40-54 [facility] Comment on above: Performed By: #### L 100.0100, L500.2500 ####[facility] [address] [place], [address] Hemoglobin (Bld) [Mass/Vol] 12.9 g/dL Low 13.0-16. 5 [facility] Comment on above: Performed By: #### L 100.0100, L500.2500 ####[facility] [address] [place], [address] IG% 0.500 Normal 0.0-0.9 [facility] Comment on above: Result Comment: IG% - Immature Granulocytes (promyelocytes, myelocytes andmetamyelocytes) > 1% indicates that a LEFT SHIFT is Present. Performed By: #### L 100.0100, L500.2500 ####[facility] [address] [place], [address] Lymphocytes/100 WBC (Bld) 30.6 % Normal 19-41 [facility] Comment on above: Performed By: #### L 100.0100, L500.2500 ####[facility] [address] [place], [address] MCH (RBC) [Entitic mass] 27.8 pg Normal 27.0-32.0 [facility] Comment on above: Performed By: #### L 100.0100, L500.2500 ####[facility] [address] [place], [address] MCHC (RBC) [Mass/Vol] 31.9 g/dL Low 32-36 [facility] Comment on above: Performed By: #### L 100.0100, L500.2500 ####[facility] [address] [place], [address] MCV (RBC) [Entitic vol] 87.1 fL Normal 80-94 [facility] Comment on above: Performed By: #### L 100.0100, L500.2500 ####[facility] [address] [place], [address] Monocytes/100 WBC (Bld) 11.4 % High 0-10 [facility] Comment on above: Performed By: #### L 100.0100, L500.2500 ####[facility] [address] [place], [address] Neutrophils/100 WBC (Bld) 50.8 % Normal 47-70 [facility] Comment on above: Performed By: #### L 100.0100, L500.2500 ####[facility] [address] [place], [address] Nucleated RBC (Bld) [#/Vol] 0 10*3/uL Normal 0-5 [facility] Comment on above: Performed By: #### L 100.0100, L500.2500 ####[facility] [address] [place], [address] Platelet mean volume (Bld) [Entitic vol] 9.0 fL Normal 6.2-12.0 [facility] Comment on above: Performed By: #### L 100.0100, L500.2500 ####[facility] [address] [place], [address] Platelets (Bld) [#/Vol] 340 10*3/uL Normal 150-450 [facility] Comment on above: Performed By: #### L 100.0100, L500.2500 ####[facility] [address] [place], [address] RBC (Bld) [#/Vol] 4.64 10*6/uL Normal 4.6-6.2 [facility] Comment on above: Performed By: #### L 100.0100, L500.2500 ####[facility] [address] [place], [address] RDW SD 51.2 fl High 35.1-43.9 [facility] Comment on above: Performed By: #### L 100.0100, L500.2500 ####[facility] [address] [place], [address] WBC (Bld) [#/Vol] 8.6 10*3/uL Normal 4.4-11.0 [facility] Comment on above: Performed By: #### L 100.0100, L500.2500 ####[facility] [address] [place], [address] Carbon dioxide measurementOr dered By: Darian Arceo on 06-14-2024 CO2 [Moles/Vol] 26.0 mmol/L 21.0-32.0 [facility] Chloride measurementOrdered By: Darian Arceo on 06-14-2024 Chloride [Moles/Vol] 111 mmol/L High 98-107 [facility] Consultation - Infectious Dx on 06-14-2024 Consultation - Infectious Dx Normal [facility] Discharge Instructionon 05-[address] [facility] Eosinophil percentageOrdered By: Darian Arceo on 06-14-2024 Eosinophils/100 WBC (Bld) 6.1 % High 0-5 [facility] Erythrocyte distribution wid th (RBC) [Ratio]Ordered By: Darian Arceo on 06-14-2024 Erythrocyte distribution width (RBC) [Entitic vol] 51.2 fL High 35.1-43.9 [facility] Erythrocyte distribution wid th ratioOrdered By: Darian Arceo on 06-14-2024 Erythrocyte distribution width (RBC) [Ratio] 16.3 % High 11.6-14.6 [facility] Estimated glomerular filtrat ion rate (GFR) AmericanOrdered By: Darian Arceo on 06-14-2024 Estimated GFR (MDRD) Amer 124 mL/min >60 [facility] Comment on above: GFR Calc Estimation of creatinine elzbieta aranceOrdered By: Darian Arceo on 06-14-2024 Estimated Creatinine Clearance Calc 106.44 ml/min [facility] Glomerular filtration rate ( GFR) estimationOrdered By: Darian Arceo on 06-14-2024 Estimated GFR (MDRD) Non-Af Amer 102 mL/min >60 [facility] Comment on above: Non- GFR Calc Glucose measurementOrdered B y: Darian Arceo on 06-14-2024 Glucose [Mass/Vol] 161 mg/dL High 74-106 [facility] Comment on above: Fasting Glucose resu lt greater than or equal to 126 mg/dL suggests DIABETES MELLITUS per A.D.A. criteria. Hematocrit Auto (Bld) [Volum e fraction]Ordered By: Darian Arceo on 06-14-2024 Hematocrit (Bld) [Volume fraction] 40.4 % 40-54 [facility] Hemoglobin measurementOrdere d By: Darian Arceo on 06-14-2024 Hemoglobin (Bld) [Mass/Vol] 12.9 g/dL Low 13.0-16. 5 [facility] Immature granulocytes/100 WB C Auto (Bld)Ordered By: Darian Arceo on 06-14-2024 Immature granulocytes/100 WBC (Bld) 0.500 % 0.0-0.9 [facility] Comment on above: IG% - Immature Granu locytes (promyelocytes, myelocytes and metamyelocytes) > 1% indicates that a LEFT SHIFT is Present. Lymphocytes Auto (Unsp spec) [#/Vol]Ordered By: Darian Arceo on 06-14-2024 Lymphocytes (Bld) [#/Vol] 2.62 10*3/uL 0.83-4.5 1 [facility] Lymphocytes/100 WBC Auto (Un sp spec)Ordered By: Darian Arceo on 06-14-2024 Lymphocytes/100 WBC (Bld) 30.6 % 19-41 [facility] MCV (mean corpuscular volume ) determinationOrdered By: Darian Arceo on 06-14-2024 MCV (RBC) [Entitic vol] 87.1 fL 80-94 [facility] Mean corpuscular hemoglobin (MCH) determinationOrdered By: Darian Arceo on 06-14-2024 MCH (RBC) [Entitic mass] 27.8 pg 27.0-32.0 [facility] Mean corpuscular hemoglobin concentration (MCHC) determinationOrdered By: Darian Arceo on 06-14-2024 MCHC (RBC) [Mass/Vol] 31.9 g/dL Low 32-36 [facility] Mean platelet volume determi nationOrdered By: Darian Arceo on 06-14-2024 Platelet mean volume (Bld) [Entitic vol] 9.0 fL 6.2-12.0 [facility] Monocyte percentageOrdered B y: Darian Arceo on 06-14-2024 Monocytes/100 WBC (Bld) 11.4 % High 0-10 [facility] Neutrophil percentageOrdered By: Darian Arceo on 06-14-2024 Neutrophils/100 WBC (Bld) 50.8 % 47-70 [facility] Nucleated red blood cell per centageOrdered By: Darian Arceo on 06-14-2024 Nucleated RBC/100 WBC (Bld) [Ratio] 0 % 0-5 [facility] Platelet countOrdered By: Joellen Arceo on 06-14-2024 Platelets (Bld) [#/Vol] 340 10*3/uL 150-450 [facility] Potassium measurementOrdered By: Darian Arceo on 06-14-2024 Potassium [Moles/Vol] 3.2 mmol/L Low 3.5-5.1 [facility] RBC Auto (Bld) [#/Vol]Ordere d By: Darian Arceo on 06-14-2024 RBC (Bld) [#/Vol] 4.64 10*6/uL 4.6-6.2 [facility] Serum anion gap measurementO rdered By: Darian Arceo on 06-14-2024 Anion gap [Moles/Vol] 7 mmol/L 5-15 [facility] Serum or plasma calcium shantal urement (mass/volume)Ordered By: Darian Arceo on 06-14-2024 Calcium [Mass/Vol] 8.5 mg/dL 8.5-10.1 [facility] Serum or plasma creatinine m easurement (mass/volume)Ordered By: Darian Arceo on 06-14-2024 Creatinine [Mass/Vol] 0.81 mg/dL 0.70-1.30 [facility] Comment on above: The validity of the calculated GFR & GFRAA in patients over 70 years has not been determined. Clinical correlation is essential. Serum or plasma urea nitroge n measurement (mass/volume)Ordered By: Darian Arceo on 06-14-2024 Urea nitrogen [Mass/Vol] 10 mg/dL 7-18 [facility] Sodium levelOrdered By: Danny Arceo on 06-14-2024 Sodium [Moles/Vol] 144 mmol/L 136-145 [facility] Urine Cultureon 06-14-2024 URC Normal [facility] Comment on above: Performed By: #### M 100.2200 ####[facility] [address] [place], [address] White blood cell (WBC) count Ordered By: Darian Arceo on 06-14-2024 WBC (Bld) [#/Vol] 8.6 10*3/uL 4.4-11.0 [facility] Basic Metabolic Profile (BMP )on 06-13-2024 BUN/CRE 17.2 RATIO Normal 10-20 [facility] Comment on above: Performed By: #### L 100.0100, L500.2500 ####[facility] [address] [place], [address] CA,Total 8.4 mg/dL Low 8.5-10.1 [facility] Comment on above: Performed By: #### L 100.0100, L500.2500 ####[facility] [address] [place], [address] Chloride [Moles/Vol] 108 mmol/L High 98-107 [facility] Comment on above: Performed By: #### L 100.0100, L500.2500 ####[facility] [address] [place], [address] CO2 [Moles/Vol] 24.0 mmol/L Normal 21.0-32.0 [facility] Comment on above: Performed By: #### L 100.0100, L500.2500 ####[facility] [address] [place], [address] Creatinine [Mass/Vol] 0.64 mg/dL Low 0.70-1.30 [facility] Comment on above: Result Comment: The validity of the calculated GFR GFRAA in patients over70 years has not been determined. Clinical correlation isessential. Performed By: #### L 100.0100, L500.2500 ####[facility] [address] [place], [address] ECRCL 134.72 ml/min Normal [facility] Comment on above: Performed By: #### L 100.0100, L500.2500 ####[facility] [address] [place], [address] EST GFR - AA 163 mL/min Normal >60 [facility] Comment on above: Result Comment: Afri can Niuean GFR Calc Performed By: #### L 100.0100, L500.2500 ####[facility] [address] [place], [address] GAP 8 Normal 5-15 [facility] Comment on above: Performed By: #### L 100.0100, L500.2500 ####[facility] [address] [place], [address] GFR/1.73 sq M.predicted among non-blacks MDRD (S/P/Bld) [Vol rate/Area] 134 mL/min/{1.73_m2} Normal >60 [facility] Comment on above: Result Comment: Non- GFR Calc Performed By: #### L 100.0100, L500.2500 ####[facility] [address] [place], [address] Glucose [Mass/Vol] 95 mg/dL Normal 74-106 [facility] Comment on above: Performed By: #### L 100.0100, L500.2500 ####[facility] [address] [place], [address] Potassium [Moles/Vol] 3.2 mmol/L Low 3.5-5.1 [facility] Comment on above: Performed By: #### L 100.0100, L500.2500 ####[facility] [address] [place], [address] Sodium [Moles/Vol] 140 mmol/L Normal 136-145 [facility] Comment on above: Performed By: #### L 100.0100, L500.2500 ####[facility] [address] [place], [address] Urea nitrogen [Mass/Vol] 11 mg/dL Normal 7-18 [facility] Comment on above: Performed By: #### L 100.0100, L500.2500 ####[facility] [address] [place], [address] CBC W/Diff, Automatedon - Absolute Lymph 2.73 X10 3/uL Normal 0.83-4.51 [facility] Comment on above: Performed By: #### L 100.0100, L500.2500 ####[facility] [address] [place], [address] Absolute Neut 4.2 X10 3/uL Normal 2.0-7.7 [facility] Comment on above: Performed By: #### L 100.0100, L500.2500 ####[facility] [address] [place], [address] Basophils/100 WBC (Bld) 0.4 % Normal 0-1 [facility] Comment on above: Performed By: #### L 100.0100, L500.2500 ####[facility] [address] [place], [address] Eosinophils/100 WBC (Bld) 3.5 % Normal 0-5 [facility] Comment on above: Performed By: #### L 100.0100, L500.2500 ####[facility] [address] [place], [address] Erythrocyte distribution width (RBC) [Ratio] 15.9 % High 11.6-14.6 [facility] Comment on above: Performed By: #### L 100.0100, L500.2500 ####[facility] [address] [place], [address] Hematocrit (Bld) [Volume fraction] 40.3 % Normal 40-54 [facility] Comment on above: Performed By: #### L 100.0100, L500.2500 ####[facility] [address] [place], [address] Hemoglobin (Bld) [Mass/Vol] 13.0 g/dL Normal 13.0-16. 5 [facility] Comment on above: Performed By: #### L 100.0100, L500.2500 ####[facility] [address] [place], [address] IG% 0.200 Normal 0.0-0.9 [facility] Comment on above: Result Comment: IG% - Immature Granulocytes (promyelocytes, myelocytes andmetamyelocytes) > 1% indicates that a LEFT SHIFT is Present. Performed By: #### L 100.0100, L500.2500 ####[facility] [address] [place], [address] Lymphocytes/100 WBC (Bld) 33.7 % Normal 19-41 [facility] Comment on above: Performed By: #### L 100.0100, L500.2500 ####[facility] [address] [place], [address] MCH (RBC) [Entitic mass] 27.4 pg Normal 27.0-32.0 [facility] Comment on above: Performed By: #### L 100.0100, L500.2500 ####[facility] [address] [place], [address] MCHC (RBC) [Mass/Vol] 32.3 g/dL Normal 32-36 [facility] Comment on above: Performed By: #### L 100.0100, L500.2500 ####[facility] [address] [place], [address] MCV (RBC) [Entitic vol] 84.8 fL Normal 80-94 [facility] Comment on above: Performed By: #### L 100.0100, L500.2500 ####[facility] [address] [place], [address] Monocytes/100 WBC (Bld) 10.6 % High 0-10 [facility] Comment on above: Performed By: #### L 100.0100, L500.2500 ####[facility] [address] [place], [address] Neutrophils/100 WBC (Bld) 51.6 % Normal 47-70 [facility] Comment on above: Performed By: #### L 100.0100, L500.2500 ####[facility] [address] [place], [address] Nucleated RBC (Bld) [#/Vol] 0 10*3/uL Normal 0-5 [facility] Comment on above: Performed By: #### L 100.0100, L500.2500 ####[facility] [address] [place], [address] Platelet mean volume (Bld) [Entitic vol] 9.0 fL Normal 6.2-12.0 [facility] Comment on above: Performed By: #### L 100.0100, L500.2500 ####[facility] [address] [place], [address] Platelets (Bld) [#/Vol] 311 10*3/uL Normal 150-450 [facility] Comment on above: Performed By: #### L 100.0100, L500.2500 ####[facility] [address] [place], [address] RBC (Bld) [#/Vol] 4.75 10*6/uL Normal 4.6-6.2 [facility] Comment on above: Performed By: #### L 100.0100, L500.2500 ####[facility] [address] [place], [address] RDW SD 49.3 fl High 35.1-43.9 [facility] Comment on above: Performed By: #### L 100.0100, L500.2500 ####[facility] [address] [place], [address] WBC (Bld) [#/Vol] 8.1 10*3/uL Normal 4.4-11.0 [facility] Comment on above: Performed By: #### L 100.0100, L500.2500 ####[facility] [address] [place], [address] Folates, (Folic Acid)on 05-29 FOLATES 46.60 ng/mL Normal 3.1-55.4 [facility] Comment on above: Order Comment: Has P atient had X-rays with Contrast this admission? NN Performed By: #### L 506.0250, L501.9520, L505.5000, L503.0105 ####[facility] [address] [place], [address] Folic acid measurementOrdere d By: Ronak Cui on 06-12-2024 Folate 46.60 ng/mL 3.1-55.4 [facility] Legionella Antigen Urineon 0 06-12-2024 LEGU Normal [facility] Comment on above: Performed By: #### M 300.4600, M300.4500 ####[facility] [address] [place], [address] Methadone, urineOrdered By: Ronak Cui on 06-12-2024 Urine Methadone Screen Negative < 300 ng/mL [facility] No Panel InformationOrdered By: Ronak Cui on 06-12-2024 Urine Drug Screen Comment [facility] Comment on above: CONFIRMATORY TESTING FOR ALL [...] Ql (U) Positive High < 300 ng/mL [facility] Strep pneumoniae Antig(UR,CS F)on 06-12-2024 STPAG Normal [facility] Comment on above: Performed By: #### M 300.4600, M300.4500 ####[facility] [address] [place], [place], [address] TSH QnOrdered By: Ronak muro on 06-12-2024 Thyroid Stimulating Hormone (TSH) 4.130 uIU/mL High 0.358-3.74 0 [facility] Thyroid Stim Hormone (TSH)on 06-12-2024 TSH 4.130 uIU/mL High 0.358-3.74 0 [facility] Comment on above: Order Comment: Has P atient had X-rays with Contrast this admission? NN Performed By: #### L 506.0250, L501.9520, L505.5000, L503.0105 ####[facility] [address] [place], [address] Urine Drug Screen (VISTA)on 06-12-2024 AMPHETAMINES Negative Normal <1000 ng/mL [facility] Comment on above: Performed By: #### L 506.0250, L501.9520, L505.5000, L503.0105 ####[facility] [address] [place], [address] BARBITIURATES Negative Normal < 200 ng/mL [facility] Comment on above: Performed By: #### L 506.0250, L501.9520, L505.5000, L503.0105 ####[facility] [address] [place], [address] BENZODIAZIPINE Negative Normal < 200 ng/mL [facility] Comment on above: Performed By: #### L 506.0250, L501.9520, L505.5000, L503.0105 ####[facility] [address] [place], [address] COCAINE Negative Normal < 300 ng/mL [facility] Comment on above: Performed By: #### L 506.0250, L501.9520, L505.5000, L503.0105 ####[facility] [address] [place], [address] ECSTACY Negative Normal < 500 ng/mL [facility] Comment on above: Performed By: #### L 506.0250, L501.9520, L505.5000, L503.0105 ####[facility] [address] [place] [address] METHADONE Negative Normal < 300 ng/mL [facility] Comment on above: Performed By: #### L 506.0250, L501.9520, L505.5000, L503.0105 ####[facility] [address] [place], [address] OPIATES Positive Abnormal < 300 ng/mL [facility] Comment on above: Performed By: #### L 506.0250, L501.9520, L505.5000, L503.0105 ####[facility] [address] [place], [address] PCP Negative Normal < 25 ng/mL [facility] Comment on above: Performed By: #### L 506.0250, L501.9520, L505.5000, L503.0105 ####[facility] [address] [facility] [address] THC Positive Abnormal < 50 ng/mL [facility] Comment on above: Performed By: #### L 506.0250, L501.9520, L505.5000, L503.0105 ####[facility] [address] [place], [address] VISTA UDS PH 5 Normal [facility] Comment on above: Performed By: #### L 506.0250, L501.9520, L505.5000, L503.0105 ####[facility] [address] [place], [address] Urine amphetamine measuremen tOrdered By: Ronak Cui on 06-12-2024 Amphetamines Ql (U) Negative <1000 ng/mL [facility] Urine barbiturates measureme ntOrdered By: Ronak Cui on 06-12-2024 Urine Barbiturates Screen Negative < 200 ng/mL [facility] Urine benzodiazepine levelOr dered By: Ronak Cui on 06-12-2024 Benzodiazepines Ql (U) Negative < 200 ng/mL [facility] Urine cocaine levelOrdered B y: Ronak Cui on 06-12-2024 Cocaine Ql (U) Negative < 300 ng/mL [facility] Urine qmwxk-0-cvxxgcgueiqofq abinol (THC) measurementOrdered By: Ronak Cui on 06-12-2024 Cannabinoids Screen Ql (U) Positive High < 50 ng/m L [facility] Urine methylenedioxymethamph etamine (MDMA) measurementOrdered By: Ronak Cui on 06-12-2024 MDMA (Ecstasy) Screen Negative < 500 ng/mL [facility] Urine phencyclidine (PCP) de tectionOrdered By: Ronak Cui on 06-12-2024 Phencyclidine Ql (U) Negative < 25 ng/mL [facility] Vitamin B12on 06-12-2024 Cobalamin (Vitamin B12) [Mass/Vol] 551 pg/mL Normal 211-911 [facility] Comment on above: Performed By: #### L 506.0250, L501.9520, L505.5000, L503.0105 ####[facility] [address] [place], [address] Vitamin B12 measurementOrder ed By: Ronak Cui on 06-12-2024 Cobalamin (Vitamin B12) [Mass/Vol] 551 pg/mL 211-911 [facility] Albumin to globulin ratioOrd ered By: Alma Rosa Sheehanelizabeth on 06-11-2024 Albumin/Globulin [Mass ratio] 0.6 {ratio} Low 0.9-2.4 [facility] Bilirubin Test strip Ql (U)O rdered By: Alma Rosa Kasia on 06-11-2024 Bilirubin Ql (U) Negative Negative [facility] Bilirubin, totalOrdered By: Alma Rosa Kasia on 06-11-2024 Bilirubin [Mass/Vol] 0.40 mg/dL 0.20-1.00 [facility] Comment on above: For patients on eltr ombopag therapy, use of Dimension [place] TBIL is not recommended. Blood cultureOrdered By: Marquita Kasia on 06-11-2024 Bacteria identified Cx Nom (Bld) No growth in 5 days. [facility] Bacteria identified Cx Nom (Bld) No growth in 5 days. [facility] CBC W/Diff, Automatedon 05-29 Absolute Lymph 2.16 X10 3/uL Normal 0.83-4.51 [facility] Comment on above: Performed By: #### L 500.4050, L100.0100, L503.6005, L501.4020 ####[facility] [address] [place], [address] Absolute Neut 9.6 X10 3/uL High 2.0-7.7 [facility] Comment on above: Performed By: #### L 500.4050, L100.0100, L503.6005, L501.4020 ####[facility] [address] [place], [address] Basophils/100 WBC (Bld) 0.3 % Normal 0-1 [facility] Comment on above: Performed By: #### L 500.4050, L100.0100, L503.6005, L501.4020 ####[facility] [address] [place], [address] Eosinophils/100 WBC (Bld) 0.7 % Normal 0-5 [facility] Comment on above: Performed By: #### L 500.4050, L100.0100, L503.6005, L501.4020 ####[facility] [address] [place], [address] Erythrocyte distribution width (RBC) [Ratio] 16.1 % High 11.6-14.6 [facility] Comment on above: Performed By: #### L 500.4050, L100.0100, L503.6005, L501.4020 ####[facility] [address] [place], [address] Hematocrit (Bld) [Volume fraction] 47.0 % Normal 40-54 [facility] Comment on above: Performed By: #### L 500.4050, L100.0100, L503.6005, L501.4020 ####[facility] [address] [place], [address] Hemoglobin (Bld) [Mass/Vol] 15.4 g/dL Normal 13.0-16. 5 [facility] Comment on above: Performed By: #### L 500.4050, L100.0100, L503.6005, L501.4020 ####[facility] [address] [place], [address] IG% 0.400 Normal 0.0-0.9 [facility] Comment on above: Result Comment: IG% - Immature Granulocytes (promyelocytes, myelocytes andmetamyelocytes) > 1% indicates that a LEFT SHIFT is Present. Performed By: #### L 500.4050, L100.0100, L503.6005, L501.4020 ####[facility] [address] [place], [address] Lymphocytes/100 WBC (Bld) 17.0 % Low 19-41 [facility] Comment on above: Performed By: #### L 500.4050, L100.0100, L503.6005, L501.4020 ####[facility] [address] [place], [address] MCH (RBC) [Entitic mass] 27.6 pg Normal 27.0-32.0 [facility] Comment on above: Performed By: #### L 500.4050, L100.0100, L503.6005, L501.4020 ####[facility] [address] [place], [address] MCHC (RBC) [Mass/Vol] 32.8 g/dL Normal 32-36 [facility] Comment on above: Performed By: #### L 500.4050, L100.0100, L503.6005, L501.4020 ####[facility] [address] [place], [address] MCV (RBC) [Entitic vol] 84.2 fL Normal 80-94 [facility] Comment on above: Performed By: #### L 500.4050, L100.0100, L503.6005, L501.4020 ####[facility] [address] [place], [address] Monocytes/100 WBC (Bld) 6.0 % Normal 0-10 [facility] Comment on above: Performed By: #### L 500.4050, L100.0100, L503.6005, L501.4020 ####[facility] [address] [place], [address] Neutrophils/100 WBC (Bld) 75.6 % High 47-70 [facility] Comment on above: Performed By: #### L 500.4050, L100.0100, L503.6005, L501.4020 ####[facility] [address] [place], [address] Nucleated RBC (Bld) [#/Vol] 0 10*3/uL Normal 0-5 [facility] Comment on above: Performed By: #### L 500.4050, L100.0100, L503.6005, L501.4020 ####[facility] [address] [place], [address] Platelet mean volume (Bld) [Entitic vol] 8.9 fL Normal 6.2-12.0 [facility] Comment on above: Performed By: #### L 500.4050, L100.0100, L503.6005, L501.4020 ####[facility] [address] [place], [address] Platelets (Bld) [#/Vol] 416 10*3/uL Normal 150-450 [facility] Comment on above: Performed By: #### L 500.4050, L100.0100, L503.6005, L501.4020 ####[facility] [address] [place], [address] RBC (Bld) [#/Vol] 5.58 10*6/uL Normal 4.6-6.2 [facility] Comment on above: Performed By: #### L 500.4050, L100.0100, L503.6005, L501.4020 ####[facility] [address] [place], [address] RDW SD 48.9 fl High 35.1-43.9 [facility] Comment on above: Performed By: #### L 500.4050, L100.0100, L503.6005, L501.4020 ####[facility] [address] [place], [address] WBC (Bld) [#/Vol] 12.7 10*3/uL High 4.4-11.0 [facility] Comment on above: Performed By: #### L 500.4050, L100.0100, L503.6005, L501.4020 ####[facility] [address] [place], [address] Calcium oxalate crystals LM Ql (Urine sed)Ordered By: Alma Rosa Pedroza on 06-11-2024 Urine Calcium Oxalate Crystals 1+ /hpf [facility] Chest 1 View (Portable)on Chest 1 View (Portable) Normal [facility] Chest without Contraston Chest without Contrast Normal [facility] Comprehensive Metabolic Prof ilon 06-11-2024 Albumin [Mass/Vol] 2.8 g/dL Low 3.2-5.0 [facility] Comment on above: Order Comment: 'TROP ' Serial specimen #1, #2 or #3: 1 Performed By: #### L 500.4050, L100.0100, L503.6005, L501.4020 ####[facility] [address] [place], [address] Albumin/Globulin [Mass ratio] 0.6 {ratio} Low 0.9-2.4 [facility] Comment on above: Order Comment: 'TROP ' Serial specimen #1, #2 or #3: 1 Performed By: #### L 500.4050, L100.0100, L503.6005, L501.4020 ####[facility] [address] [place], [address] ALK P 168 U/L High 45-117 [facility] Comment on above: Order Comment: 'TROP ' Serial specimen #1, #2 or #3: 1 Performed By: #### L 500.4050, L100.0100, L503.6005, L501.4020 ####[facility] [address] [place], [address] ALT [Catalytic activity/Vol] 10 U/L Low 16-61 [facility] Comment on above: Order Comment: 'TROP ' Serial specimen #1, #2 or #3: 1 Performed By: #### L 500.4050, L100.0100, L503.6005, L501.4020 ####[facility] [address] [place], [address] AST [Catalytic activity/Vol] 10 U/L Low 15-37 [facility] Comment on above: Order Comment: 'TROP ' Serial specimen #1, #2 or #3: 1 Performed By: #### L 500.4050, L100.0100, L503.6005, L501.4020 ####[facility] [address] [place], [address] Bilirubin [Mass/Vol] 0.40 mg/dL Normal 0.20-1.00 [facility] Comment on above: Order Comment: 'TROP ' Serial specimen #1, #2 or #3: 1 Result Comment: For patients on eltrombopag therapy, use of Dimension [place] TBIL is not recommended. Performed By: #### L 500.4050, L100.0100, L503.6005, L501.4020 ####[facility] [address] [place], [address] BUN/CRE 19.7 RATIO Normal 10-20 [facility] Comment on above: Order Comment: 'TROP ' Serial specimen #1, #2 or #3: 1 Performed By: #### L 500.4050, L100.0100, L503.6005, L501.4020 ####[facility] [address] [place], [address] CA,Total 9.5 mg/dL Normal 8.5-10.1 [facility] Comment on above: Order Comment: 'TROP ' Serial specimen #1, #2 or #3: 1 Performed By: #### L 500.4050, L100.0100, L503.6005, L501.4020 ####[facility] [address] [place], [address] Chloride [Moles/Vol] 106 mmol/L Normal 98-107 [facility] Comment on above: Order Comment: 'TROP ' Serial specimen #1, #2 or #3: 1 Performed By: #### L 500.4050, L100.0100, L503.6005, L501.4020 ####[facility] [address] [place], [address] CO2 [Moles/Vol] 25.0 mmol/L Normal 21.0-32.0 [facility] Comment on above: Order Comment: 'TROP ' Serial specimen #1, #2 or #3: 1 Performed By: #### L 500.4050, L100.0100, L503.6005, L501.4020 ####[facility] [address] [place], [address] Creatinine [Mass/Vol] 0.61 mg/dL Low 0.70-1.30 [facility] Comment on above: Order Comment: 'TROP ' Serial specimen #1, #2 or #3: 1 Result Comment: The validity of the calculated GFR GFRAA in patients over70 years has not been determined. Clinical correlation isessential. Performed By: #### L 500.4050, L100.0100, L503.6005, L501.4020 ####[facility] [address] [place], [address] ECRCL 123.95 ml/min Normal [facility] Comment on above: Order Comment: 'TROP ' Serial specimen #1, #2 or #3: 1 Performed By: #### L 500.4050, L100.0100, L503.6005, L501.4020 ####[facility] [address] [place], [address] EST GFR - AA 172 mL/min Normal >60 [facility] Comment on above: Order Comment: 'TROP ' Serial specimen #1, #2 or #3: 1 Result Comment: Afri can [place] GFR Calc Performed By: #### L 500.4050, L100.0100, L503.6005, L501.4020 ####[facility] [address] [place], [address] GAP 9 Normal 5-15 [facility] Comment on above: Order Comment: 'TROP ' Serial specimen #1, #2 or #3: 1 Performed By: #### L 500.4050, L100.0100, L503.6005, L501.4020 ####[facility] [address] [place], [address] GFR/1.73 sq M.predicted among non-blacks MDRD (S/P/Bld) [Vol rate/Area] 142 mL/min/{1.73_m2} Normal >60 [facility] Comment on above: Order Comment: 'TROP ' Serial specimen #1, #2 or #3: 1 Result Comment: Non- GFR Calc Performed By: #### L 500.4050, L100.0100, L503.6005, L501.4020 ####[facility] [address] [place], [address] Globulin (S) [Mass/Vol] 5.0 g/dL High 2.2-4.2 [facility] Comment on above: Order Comment: 'TROP ' Serial specimen #1, #2 or #3: 1 Performed By: #### L 500.4050, L100.0100, L503.6005, L501.4020 ####[facility] [address] [place], [address] Glucose [Mass/Vol] 107 mg/dL High 74-106 [facility] Comment on above: Order Comment: 'TROP ' Serial specimen #1, #2 or #3: 1 Result Comment: Fast ing Glucose result from 100 to 125 mg/dLsuggests IMPAIRED HOMEOSTASIS per A.D.A. criteria. Performed By: #### L 500.4050, L100.0100, L503.6005, L501.4020 ####[facility] [address] [place], [address] Potassium [Moles/Vol] 3.4 mmol/L Low 3.5-5.1 [facility] Comment on above: Order Comment: 'TROP ' Serial specimen #1, #2 or #3: 1 Performed By: #### L 500.4050, L100.0100, L503.6005, L501.4020 ####[facility] [address] [place], [address] Sodium [Moles/Vol] 140 mmol/L Normal 136-145 [facility] Comment on above: Order Comment: 'TROP ' Serial specimen #1, #2 or #3: 1 Performed By: #### L 500.4050, L100.0100, L503.6005, L501.4020 ####[facility] [address] [place], [address] T PROT 7.8 g/dL Normal 6.4-8.2 [facility] Comment on above: Order Comment: 'TROP ' Serial specimen #1, #2 or #3: 1 Performed By: #### L 500.4050, L100.0100, L503.6005, L501.4020 ####[facility] [address] [place], [address] Urea nitrogen [Mass/Vol] 12 mg/dL Normal 7-18 [facility] Comment on above: Order Comment: 'TROP ' Serial specimen #1, #2 or #3: 1 Performed By: #### L 500.4050, L100.0100, L503.6005, L501.4020 ####[facility] [address] [place], [address] Emergency Department Summary on 06-11-2024 Emergency Department Summary Normal [facility] Epithelial cells.squamous LM Ql (Urine sed)Ordered By: Alma Rosa Pedroza on 06-11-2024 Epithelial cells.squamous LM.HPF (Urine sed) [#/Area] 0 /[HPF] 0-5 [facility] Glucose Ql (U)Ordered By: Julia Pedroza on 06-11-2024 Urine Glucose (UA) Normal mg/dl Normal [facility] H AND P Exam - Hospitaliston 06-11-2024 H&P Exam - Hospitalist Normal [facility] HIP, UNI W/ Pelvis 2-3 Views on 06-11-2024 HIP, UNI W/ Pelvis 2-3 Views Normal [facility] Influenza virus A and B and SARS-CoV-2 (COVID-19) and Respiratory syncytial virus RNAOrdered By: Alma Rosa Pedroza on 06-11-2024 SARS-CoV-2 (COVID-19) RNA ZEKE+probe Ql (Unsp spec) [facility] Ketones Test strip Ql (U)Ord ered By: Alma Rosa Pedroza on 06-11-2024 Ketones Ql (U) 150 mg/dl Abnormal Negative [facility] Comment on above: CRITICAL VALUE *HCRI TICAL VALUE CALLED TO IBVCKD56/14/25 1805 Lilian Multani.RESULTS READ BACK BY SAME. L. pneumophila Ag Ql (U)Orde red By: Ronak Cui on 06-11-2024 Legionella Antigen [facility] L501.4020on 06-11-2024 TROPONIN-I HS 6 pg/mL Normal 3.0-78.0 [facility] Comment on above: Order Comment: 'TROP ' Serial specimen #1, #2 or #3: 1 Result Comment: Plea se Note: New Test Units and Gender Specific Reference Ranges. For more information see Policy Stat Procedure [place] High Sensitivity Troponin (TNIH) and attachments. Performed By: #### L 500.4050, L100.0100, L503.6005, L501.4020 ####[facility] [address] [place], [place], [id number] Laboratory - Chemistry and C hemistry - challengeOrdered By: Alma Rosa Pedroza on 06-11-2024 AST [Catalytic activity/Vol] 10 U/L Low 15-37 [facility] Lactic Acidon 06-11-2024 Lactate [Moles/Vol] 1.4 mmol/L Normal 0.4-1.9 [facility] Comment on above: Order Comment: Y Performed By: #### L 500.4050, L100.0100, L503.6005, L501.4020 ####[facility] [address] [place], [place], [address] Lactic acid measurementOrder ed By: Alma Rosa Pedroza on 06-11-2024 Lactate [Moles/Vol] 1.4 mmol/L 0.4-2.0 [facility] M100.678on 06-11-2024 M100.678 Pending SARS-CoV-2 (COVID 19) Negative INFLUENZA A Negative INFLUENZA B Negative RSV PCR Negative Normal [facility] Comment on above: Performed By: #### M 100.678, L400.0001 ####[facility] [address] [place], [place], [address] Microscopic analysis of urin e for red blood cells (RBC)Ordered By: Alma Rosa Pedroza on 06-11-2024 Urine RBC 25-50 SEEN /hpf 0-5 [facility] Mucus LM Ql (Urine sed)Order ed By: Alma Rosa Pedroza on 06-11-2024 Mucus Ql (Urine sed) 2+ /hpf [facility] Nitrite Test strip Ql (U)Ord ered By: Alma Rosa Pedroza on 06-11-2024 Nitrite Ql (U) Positive High Negative [facility] Protein Test strip Ql (U)Ord ered By: Alma Rosa Pedroza on 06-11-2024 Protein Ql (U) 100 mg/dl High Negative [facility] Serum globulin measurementOr dered By: Alma Rosa Pedroza on 06-11-2024 Globulin (S) [Mass/Vol] 5.0 g/dL High 2.2-4.2 [facility] Serum or plasma alanine hooper otransferase (ALT) measurementOrdered By: Alma Rosa Pedroza on 06-11-2024 ALT [Catalytic activity/Vol] 10 U/L Low 16-61 [facility] Serum or plasma albumin shantal urement (mass/volume)Ordered By: Alma Rosa Pedroza on 06-11-2024 Albumin [Mass/Vol] 2.8 g/dL Low 3.2-5.0 [facility] Serum or plasma alkaline radha sphatase measurementOrdered By: Alma Rosa Kasia on 06-11-2024 ALP [Catalytic activity/Vol] 168 U/L High 45-117 [facility] Streptococcus pneumoniae ant igen assayOrdered By: oRnak Cui on 06-11-2024 Streptococcus pneumoniae Antigen (M [facility] Total proteinOrdered By: Marquita parr Kasia on 06-11-2024 Protein [Mass/Vol] 7.8 g/dL 6.4-8.2 [facility] Troponin IOrdered By: Alma Rosa Kasia on 06-11-2024 Troponin I High Sensitivity 6 pg/mL 3.0-78.0 [facility] Comment on above: Please Note: New Tanya t Units and Gender Specific Reference Ranges. For more information see Policy Stat Procedure [place] High Sensitivity Troponin (TNIH) and attachments. Urinalysis, Completeon 06-11 BACTERIA 4+ /hpf Normal None Seen [facility] Comment on above: Order Comment: ELMA CTOR TO SPECIFY Performed By: #### M 100.678, L400.0001 ####[facility] [address] [place], [address] CA OX CRYSTAL 1+ /hpf Normal [facility] Comment on above: Order Comment: ELMA CTOR TO SPECIFY Performed By: #### M 100.678, L400.0001 ####[facility] [address] [place], [address] EPI,SQUAMOUS 0-5 SEEN Normal 0-5 [facility] Comment on above: Order Comment: ELMA CTOR TO SPECIFY Performed By: #### M 100.678, L400.0001 ####[facility] [address] [place], [address] Mucus Ql (Urine sed) 2+ /hpf Normal [facility] Comment on above: Order Comment: ELMA CTOR TO SPECIFY Performed By: #### M 100.678, L400.0001 ####[facility] [address] [place], [address] RBC 25-50 SEEN Normal 0-5 [facility] Comment on above: Order Comment: ELMA CTOR TO SPECIFY Performed By: #### M 100.678, L400.0001 ####[facility] [address] [place], [place], [address] WBC >100 SEEN Normal 0-5 [facility] Comment on above: Order Comment: ELMA CTOR TO SPECIFY Performed By: #### M 100.678, L400.0001 ####[facility] [address] [place], [place], [address] Urine blood detectionOrdered By: Alma Rosa Pedroza on 06-11-2024 Urine Occult Blood 250 /ul High Negative [facility] Urine clarityOrdered By: Marquita Pedroza on 06-11-2024 Clarity (U) Cloudy Clear [facility] Urine color determinationOrd ered By: Alma Rosa Pedroza on 06-11-2024 Color (U) Yellow Yellow [facility] Urine cultureOrdered By: Marquita Pedroza on 06-11-2024 Bacteria identified Cx Nom (U) Pseudomonas aeruginosa Abnormal [facility] Urine leukocyte esterase det ection by dipstickOrdered By: Alma Rosa Pedroza on 06-11-2024 Leukocyte esterase Test strip Ql (U) 500 /ul High Negative [facility] Urine pHOrdered By: Alma Rosa Zeng gur on 06-11-2024 pH (U) 6.0 [pH] 5.0 - 8.0 [facility] Urine sediment bacteria coun t by microscopy (number/high power field)Ordered By: Alma Rosa Pedroza on 06-11-2024 Bacteria LM.HPF (Urine sed) [#/Area] 4 /[HPF] None Seen [facility] Urine specific gravity measu rementOrdered By: Alma Rosa Pedroza on 06-11-2024 Specific gravity (U) [Rel density] 1.025 1.002-1.03 0 [facility] Urobilinogen Ql (U)Ordered B y: Alma Rosa Pedroza on 06-11-2024 Urine Urobilinogen Normal mg/dl Normal [facility] Venous Duplex Imag/Limited/U nion 06-11-2024 Venous Duplex Imag/Limited/Uni Normal [facility] White blood cell countOrdere d By: Alma Rosa Pedroza on 06-11-2024 Urine WBC >100 SEEN /hpf 0-5 [facility] CNPAlyssa 05-06-2024 CNPN Telephone (AGPOB1) BAUTISTA RUFFIN ([id number]) 1960 M Date Time Provider Department 05/06/24 HETAL GALLEGOS ADELEB1 During your visit today, we recorded the following information about you: Stacy Gongora 05/06/2024 8:17 AM Signed ----- Message from Hetal Gallegos MD sent at 05/04/2024 12:05 PM EST ----- Follow-up in 3 weeks please Stacy Gongora 05/06/2024 8:17 AM Signed I called the patient to schedule an appointment with [facility] in 3 weeks. I left a voice [...] Status:Closed by STACY GONGORA on 05/10/24 Normal [facility] Basic Metabolic Profile (BMP )on 05-03-2024 BUN/CRE 15.2 RATIO Normal 10-20 [facility] Comment on above: Performed By: #### L 500.2500, L100.0100 ####[facility] [address] [place], [address] CA,Total 9.4 mg/dL Normal 8.5-10.1 [facility] Comment on above: Performed By: #### L 500.2500, L100.0100 ####[facility] [address] [place], [address] Chloride [Moles/Vol] 106 mmol/L Normal 98-107 [facility] Comment on above: Performed By: #### L 500.2500, L100.0100 ####[facility] [address] [place], [address] CO2 [Moles/Vol] 33.0 mmol/L High 21.0-32.0 [facility] Comment on above: Performed By: #### L 500.2500, L100.0100 ####[facility] [address] [place], [address] Creatinine [Mass/Vol] 0.92 mg/dL Normal 0.70-1.30 [facility] Comment on above: Result Comment: The validity of the calculated GFR GFRAA in patients over70 years has not been determined. Clinical correlation isessential. Performed By: #### L 500.2500, L100.0100 ####[facility] [address] [place], [address] ECRCL 82.18 ml/min Normal [facility] Comment on above: Performed By: #### L 500.2500, L100.0100 ####[facility] [address] [place], [address] EST GFR - AA 106 mL/min Normal >60 [facility] Comment on above: Result Comment: Afri can Niuean GFR Calc Performed By: #### L 500.2500, L100.0100 ####[facility] [address] [place], [address] GAP 2 Low 5-15 [facility] Comment on above: Performed By: #### L 500.2500, L100.0100 ####[facility] [address] [place], [address] GFR/1.73 sq M.predicted among non-blacks MDRD (S/P/Bld) [Vol rate/Area] 88 mL/min/{1.73_m2} Normal >60 [facility] Comment on above: Result Comment: Non- GFR Calc Performed By: #### L 500.2500, L100.0100 ####[facility] [address] [place], [address] Glucose [Mass/Vol] 97 mg/dL Normal 74-106 [facility] Comment on above: Performed By: #### L 500.2500, L100.0100 ####[facility] [address] [place], [address] Potassium [Moles/Vol] 4.1 mmol/L Normal 3.5-5.1 [facility] Comment on above: Performed By: #### L 500.2500, L100.0100 ####[facility] [address] [place], [address] Sodium [Moles/Vol] 140 mmol/L Normal 136-145 [facility] Comment on above: Performed By: #### L 500.2500, L100.0100 ####[facility] [address] [place], [address] Urea nitrogen [Mass/Vol] 14 mg/dL Normal 7-18 [facility] Comment on above: Performed By: #### L 500.2500, L100.0100 ####[facility] [address] [place], [address] Basic metabolic 2000 panelon 05-03-2024 Anion gap [Moles/Vol] 10 mmol/L Normal 8-15 [facility] Comment on above: Order Comment: Speci men Type: BLOOD SPECIMEN Ordering Facility: [facility] Address: [address] [place] [address] Performed By: #### 2 4321-2 #### [facility] CLIA [id number] [address] [place] [address] [place] Calcium [Mass/Vol] 9.1 mg/dL Normal 8.5-10.2 [facility] Comment on above: Order Comment: Speci men Type: BLOOD SPECIMEN Ordering Facility: [facility] Address: [address] [place] [address] Performed By: #### 2 4321-2 #### [facility] CLIA [id number] [address] [place] [address] [place] Chloride [Moles/Vol] 106 mmol/L Normal 98-107 [facility] Comment on above: Order Comment: Speci men Type: BLOOD SPECIMEN Ordering Facility: [facility] Address: [address] [place] [address] Performed By: #### 2 4321-2 #### [facility] CLIA [id number] 1 [place] [address] [place] CO2 [Moles/Vol] 26 mmol/L Normal 22-30 [facility] Comment on above: Order Comment: Speci men Type: BLOOD SPECIMEN Ordering Facility: [facility] Address: [address] [place] [address] Performed By: #### 2 4321-2 #### [facility] CLIA [id number] 1 [place] [address] [place] Creatinine [Mass/Vol] 0.79 mg/dL Normal 0.73-1.22 [facility] Comment on above: Order Comment: Soha bray Type: BLOOD SPECIMEN Ordering Facility: [facility] Address: [address] [place] [address] Performed By: #### 2 4321-2 #### [facility] CLIA [id number] [address] [place] Creatinine and Glomerular filtration rate.predicted panel (S/P/Bld) 100 mL/min/1.73m??? Normal >=60 [facility] Comment on above: Order Comment: Soha bray Type: BLOOD SPECIMEN Ordering Facility: [facility] Address: [address] [place] [address] Result Comment: Carey mated Glomerular Filtration Rate [...] GFR. Performed By: #### 2 4321-2 #### [facility] CLIA [id number] [address] [place] [address] [place] Glucose [Mass/Vol] 92 mg/dL Normal 74-99 [facility] Comment on above: Order Comment: Soha bray Type: BLOOD SPECIMEN Ordering Facility: [facility] Address: [address] [place] [address] Result Comment: The [place] Diabetes [employer] (ADA) [...] 2 4321-2 #### [facility] CLIA [id number] 1 [place] [address] [place] Potassium [Moles/Vol] 4.3 mmol/L Normal 3.7-5.1 [facility] Comment on above: Order Comment: Speci men Type: BLOOD SPECIMEN Ordering Facility: [facility] Address: [address] [place] [address] Performed By: #### 2 4321-2 #### [facility] CLIA [id number] [address] [place] [address] [place] Sodium [Moles/Vol] 142 mmol/L Normal 136-144 [facility] Comment on above: Order Comment: Speci men Type: BLOOD SPECIMEN Ordering Facility: [facility] Address: [address] [place] [address] Performed By: #### 2 4321-2 #### [facility] CLIA [id number] [address] [place] Urea nitrogen [Mass/Vol] 13 mg/dL Normal 9-24 [facility] Comment on above: Order Comment: Speci men Type: BLOOD SPECIMEN Ordering Facility: [facility] Address: [address] [place] [address] Performed By: #### 2 4321-2 #### [facility] CLIA [id number] [address] [place] CBC W Auto Differential pane l (Bld)on 05-03-2024 Basophils (Bld) [#/Vol] 0.07 10*3/uL Normal <0.11 [facility] Comment on above: Order Comment: Speci men Type: BLOOD SPECIMEN Ordering Facility: [facility] Address: [address] [place] [address] Performed By: #### 5 7021-8 #### [facility] CLIA [id number] [address] [place] Basophils/100 WBC (Bld) 0.5 % Normal [facility] Comment on above: Order Comment: Speci men Type: BLOOD SPECIMEN Ordering Facility: [facility] Address: [address] [place] [address] Performed By: #### 5 7021-8 #### [facility] CLIA [id number] [address] [place] Differential cell count method Nom (Bld) Auto Normal [facility] Comment on above: Order Comment: Speci men Type: BLOOD SPECIMEN Ordering Facility: [facility] Address: [address] [place] [address] Performed By: #### 5 7021-8 #### [facility] CLIA [id number] [address] [place] Eosinophils (Bld) [#/Vol] 0.47 10*3/uL High <0.46 [facility] Comment on above: Order Comment: Speci men Type: BLOOD SPECIMEN Ordering Facility: [facility] Address: [address] [place] [address] Performed By: #### 5 7021-8 #### [facility] CLIA [id number] [address] [place] Eosinophils/100 WBC (Bld) 3.2 % Normal [facility] Comment on above: Order Comment: Speci men Type: BLOOD SPECIMEN Ordering Facility: [facility] Address: [address] [place] [address] Performed By: #### 5 7021-8 #### [facility] CLIA [id number] [address] [place] Erythrocyte distribution width (RBC) [Ratio] 18.1 % High 11.5-15.0 [facility] Comment on above: Order Comment: Speci men Type: BLOOD SPECIMEN Ordering Facility: [facility] Address: [address] [place] [address] Performed By: #### 5 7021-8 #### [facility] CLIA [id number] [address] [place] Hematocrit (Bld) [Volume fraction] 49.5 % Normal 39.0-51.0 [facility] Comment on above: Order Comment: Speci men Type: BLOOD SPECIMEN Ordering Facility: [facility] Address: [address] [place] [address] Performed By: #### 5 7021-8 #### [facility] CLIA [id number] [address] [place] Hemoglobin (Bld) [Mass/Vol] 16.3 g/dL Normal 13.0-17. 0 [facility] Comment on above: Order Comment: Speci men Type: BLOOD SPECIMEN Ordering Facility: [facility] Address: [address] [place] [address] Performed By: #### 5 7021-8 #### [facility] CLIA [id number] [address] [place] Immature granulocytes (Bld) [#/Vol] 0.08 10*3/uL Normal <0.10 [facility] Comment on above: Order Comment: Speci men Type: BLOOD SPECIMEN Ordering Facility: [facility] Address: [address] [place] [address] Performed By: #### 5 7021-8 #### [facility] CLIA [id number] [address] [place] Immature granulocytes/100 WBC (Bld) 0.5 % Normal [facility] Comment on above: Order Comment: Speci men Type: BLOOD SPECIMEN Ordering Facility: [facility] Address: [address] [place] [address] Performed By: #### 5 7021-8 #### [facility] CLIA [id number] [address] [place] Lymphocytes (Bld) [#/Vol] 3.35 10*3/uL Normal 1.00-4.0 0 [facility] Comment on above: Order Comment: Speci men Type: BLOOD SPECIMEN Ordering Facility: [facility] Address: [address] [place] [address] Performed By: #### 5 7021-8 #### [facility] CLIA [id number] [address] [place] Lymphocytes/100 WBC (Bld) 22.8 % Normal [facility] Comment on above: Order Comment: Speci men Type: BLOOD SPECIMEN Ordering Facility: [facility] Address: [address] [place] [address] Performed By: #### 5 7021-8 #### [facility] CLIA [id number] [address] MCH (RBC) [Entitic mass] 28.6 pg Normal 26.0-34.0 [facility] Comment on above: Order Comment: Speci men Type: BLOOD SPECIMEN Ordering Facility: [facility] Address: [address] [place] [address] Performed By: #### 5 7021-8 #### [facility] CLIA [id number] [address] MCHC (RBC) [Mass/Vol] 32.9 g/dL Normal 30.5-36.0 [facility] Comment on above: Order Comment: Speci men Type: BLOOD SPECIMEN Ordering Facility: [facility] Address: [address] [place] [address] Performed By: #### 5 7021-8 #### [facility] CLIA [id number] [address] MCV (RBC) [Entitic vol] 86.8 fL Normal 80.0-100.0 [facility] Comment on above: Order Comment: Speci men Type: BLOOD SPECIMEN Ordering Facility: [facility] Address: [address] [place] [address] Performed By: #### 5 7021-8 #### [facility] CLIA [id number] [address] Monocytes (Bld) [#/Vol] 1.45 10*3/uL High <0.87 [facility] Comment on above: Order Comment: Speci men Type: BLOOD SPECIMEN Ordering Facility: [facility] Address: [address] [place] [address] Performed By: #### 5 7021-8 #### [facility] CLIA [id number] [address] [place] Monocytes/100 WBC (Bld) 9.9 % Normal A [facility] Comment on above: Order Comment: Speci men Type: BLOOD SPECIMEN Ordering Facility: [facility] Address: [address] [place] [address] Performed By: #### 5 7021-8 #### [facility] CLIA [id number] [address] [place] [address] [place] Neutrophils (Bld) [#/Vol] 9.29 10*3/uL High 1.45-7.5 0 [facility] Comment on above: Order Comment: Speci men Type: BLOOD SPECIMEN Ordering Facility: [facility] Address: [address] [place] [address] Performed By: #### 5 7021-8 #### [facility] CLIA [id number] [address] [place] Neutrophils/100 WBC (Bld) 63.1 % Normal [facility] Comment on above: Order Comment: Speci men Type: BLOOD SPECIMEN Ordering Facility: [facility] Address: [address] [place] [address] Performed By: #### 5 7021-8 #### [facility] CLIA [id number] [address] [place] Nucleated RBC (Bld) [#/Vol] 10*3/uL Normal <0.01 [facility] Comment on above: Order Comment: Speci men Type: BLOOD SPECIMEN Ordering Facility: [facility] Address: [address] [place] [address] Performed By: #### 5 7021-8 #### [facility] CLIA [id number] [address] [place] Nucleated RBC/100 WBC (Bld) [Ratio] 0.0 /100 WBC Normal [facility] Comment on above: Order Comment: Speci men Type: BLOOD SPECIMEN Ordering Facility: [facility] Address: [address] [place] [address] Performed By: #### 5 7021-8 #### [facility] CLIA [id number] [address] [place] Platelet mean volume (Bld) [Entitic vol] 9.5 fL Normal 9.0-12.7 [facility] Comment on above: Order Comment: Speci men Type: BLOOD SPECIMEN Ordering Facility: [facility] Address: [address] [place] [address] Performed By: #### 5 7021-8 #### [facility] CLIA [id number] [address] [place] Platelets (Bld) [#/Vol] 268 10*3/uL Normal 150-400 [facility] Comment on above: Order Comment: Speci men Type: BLOOD SPECIMEN Ordering Facility: [facility] Address: [address] [place] [address] Performed By: #### 5 7021-8 #### [facility] CLIA [id number] [address] RBC (Bld) [#/Vol] 5.70 10*6/uL Normal 4.20-6.00 [facility] Comment on above: Order Comment: Speci men Type: BLOOD SPECIMEN Ordering Facility: [facility] Address: [address] [place] [address] Performed By: #### 5 7021-8 #### [facility] CLIA [id number] [address] [place] WBC (Bld) [#/Vol] 14.71 10*3/uL High 3.70-11.00 [facility] Comment on above: Order Comment: Speci men Type: BLOOD SPECIMEN Ordering Facility: [facility] Address: [address] [place] [address] Performed By: #### 5 7021-8 #### [facility] CLIA [id number] [address] [place] CBC W/Diff, Automatedon 12-0 6-4 Absolute Lymph 3.24 X10 3/uL Normal 0.83-4.51 [facility] [facility] Comment on above: Performed By: #### L 500.2500, L100.0100 ####[facility] [address] [place], [address] Absolute Neut 7.8 X10 3/uL High 2.0-7.7 [facility] Comment on above: Performed By: #### L 500.2500, L100.0100 ####[facility] [address] [place], [address] Basophils/100 WBC (Bld) 0.5 % Normal 0-1 [facility] Comment on above: Performed By: #### L 500.2500, L100.0100 ####[facility] [address] [place], [address] Eosinophils/100 WBC (Bld) 3.5 % Normal 0-5 [facility] Comment on above: Performed By: #### L 500.2500, L100.0100 ####[facility] [address] [place], [address] Erythrocyte distribution width (RBC) [Ratio] 18.0 % High 11.6-14.6 [facility] Comment on above: Performed By: #### L 500.2500, L100.0100 ####[facility] [address] [place], [address] Hematocrit (Bld) [Volume fraction] 53.3 % Normal 40-54 [facility] Comment on above: Performed By: #### L 500.2500, L100.0100 ####[facility] [address] [place], [address] Hemoglobin (Bld) [Mass/Vol] 17.0 g/dL High 13.0-16. 5 [facility] Comment on above: Performed By: #### L 500.2500, L100.0100 ####[facility] [address] [place], [address] IG% 0.400 Normal 0.0-0.9 [facility] Comment on above: Result Comment: IG% - Immature Granulocytes (promyelocytes, myelocytes andmetamyelocytes) > 1% indicates that a LEFT SHIFT is Present. Performed By: #### L 500.2500, L100.0100 ####[facility] [address] [place], [address] Lymphocytes/100 WBC (Bld) 25.4 % Normal 19-41 [facility] Comment on above: Performed By: #### L 500.2500, L100.0100 ####[facility] [address] [place], [address] MCH (RBC) [Entitic mass] 27.6 pg Normal 27.0-32.0 [facility] Comment on above: Performed By: #### L 500.2500, L100.0100 ####[facility] [address] [place], [address] MCHC (RBC) [Mass/Vol] 31.9 g/dL Low 32-36 [facility] Comment on above: Performed By: #### L 500.2500, L100.0100 ####[facility] [address] [place], [address] MCV (RBC) [Entitic vol] 86.4 fL Normal 80-94 [facility] Comment on above: Performed By: #### L 500.2500, L100.0100 ####[facility] [address] [place], [address] Monocytes/100 WBC (Bld) 8.8 % Normal 0-10 [facility] Comment on above: Performed By: #### L 500.2500, L100.0100 ####[facility] [address] [place], [address] Neutrophils/100 WBC (Bld) 61.4 % Normal 47-70 [facility] Comment on above: Performed By: #### L 500.2500, L100.0100 ####[facility] [address] [place], [address] Nucleated RBC (Bld) [#/Vol] 0 10*3/uL Normal 0-5 [facility] Comment on above: Performed By: #### L 500.2500, L100.0100 ####[facility] [address] [place], [address] Platelet mean volume (Bld) [Entitic vol] 9.6 fL Normal 6.2-12.0 [facility] Comment on above: Performed By: #### L 500.2500, L100.0100 ####[facility] [address] [place], [address] Platelets (Bld) [#/Vol] 299 10*3/uL Normal 150-450 [facility] Comment on above: Performed By: #### L 500.2500, L100.0100 ####[facility] [address] [place], [address] RBC (Bld) [#/Vol] 6.17 10*6/uL Normal 4.6-6.2 [facility] Comment on above: Performed By: #### L 500.2500, L100.0100 ####[facility] [address] [place], [address] RDW SD 53.9 fl High 35.1-43.9 [facility] Comment on above: Performed By: #### L 500.2500, L100.0100 ####[facility] [address] [place], [address] WBC (Bld) [#/Vol] 12.8 10*3/uL High 4.4-11.0 [facility] Comment on above: Performed By: #### L 500.2500, L100.0100 ####[facility] [address] [place], [address] CONSULTon 05-03-2024 CONSULT HNO ID: [id number] Author: HETAL GALLEGOS MD Service: Orthopaedic Surgery [...] ThighPain HPI:64 year old male presented to [facility] ED on 05/03/2024 for evaluation of right thigh pain. The patient is paraplegic at baseline and is bed bound. He states he has some minimal sensation in the lower extremities. His home care nurse was moving his leg for range of [...] MD Orthopaedic Surgery 05/03/2024 10:08 PM Normal [facility] ED NOTEon 05-03-2024 ED NOTE HNO ID: [id number] Author: BILLY COOLEY RN Service: ? 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 Dr. Grissom notified. Normal [facility] ED NOTE HNO ID: [id number] Author: WAYNE LAMBERT Medic Service: ? Author Type: School Library Media Specialist and Instructor Psychiatric Aide Type: ED Notes Filed: 05/03/2024 16:34 Note Text: Bed: 26-ED Expected date: 05/03/24 Expected time: 4:12 PM Means of arrival: [facility] Comments: Squad when clean Normal [facility] ED PROV NOTEon 05-03-2024 ED PROV NOTE HNO ID: [id number] Author: LESLIE STRANGE MD Service: Emergency Medicine Author Type: Physician Type: ED Provider Notes Filed: 05/08/2024 09:35 Note Text: ED Provider Note Patient Name: Bautista Ruffin : 1960 SERVICE DATE: 05/03/24 History Patient presents with: Hip Pain: Patient arrives to ED from [place] [facility] for ortho consult. Patient has right hip fracture. Occurred during PT/OT while moving leg. Patient is paraplegic. Received 50mcg of fentanyl before arrival. Patient presents as a transfer from [place] for right hip fracture. Patient has past [...] the right hip and was taken to [facility] for evaluation where he was found to have a nondisplaced subtrochanteric right femur fracture. He was transferred to [facility] for Ortho consult. PAST MEDICAL HISTORY Diagnosis [...] however he (more content not included)... Normal [facility] Emergency Department Summary on 05-03-2024 Emergency Department Summary Normal [facility] HIP, UNI W/ Pelvis 2-3 Views on 05-03-2024 HIP, UNI W/ Pelvis 2-3 Views Normal [facility] XR FEMUR 2V AP/LAT RTon XR FEMUR [...] KNEE may be obtained, as clinically warranted. Principal Administrative Clerk: MILAGROS Transcribe Date/Time: May 03 2024 8:06P Dictated by : ERNESTO CORRALES MD This examination was interpreted and the report reviewed and electronically signed by: ERNESTO CORRALES MD on May 03 2024 8:11PM EST [id number] Normal [facility] XR HIP 3V PELV+ AP/LAT RTon [...] KNEE may be obtained, as clinically warranted. Principal Administrative Clerk: PSCChris Transcribe Date/Time: May 03 2024 8:06P Dictated by : ERNESTO CORRALES MD This examination was interpreted and the report reviewed and electronically signed by: ERNESTO CORRALES MD on May 03 2024 8:11PM EST [id number] Normal [facility] Absolute lymphocyte countOrd ered By: Adan Bell on 10-09-2023 Lymphocytes Auto (Unsp spec) [#/Vol] 3.10 10*3/uL 0.83-4.51 [facility] Automated lymphocyte count a s percentage of total leukocytesOrdered By: Adan Bell on 10-09-2023 Lymphocytes/100 WBC Auto (Unsp spec) 16.3 % 19-41 [facility] Basophil percentageOrdered B y: Adan Bell on 10-09-2023 Basophils/100 WBC (Bld) 0.6 % 0-1 [facility] Chloride [Moles/Vol] 100 mmol/L 98-107 [facility] Eosinophils/100 WBC (Bld) 0.8 % 0-5 [facility] Glucose [Mass/Vol] 124 mg/dL 74-106 [facility] Comment on above: Fasting Glucose resu lt from 100 to 125 mg/dL suggests IMPAIRED HOMEOSTASIS per A.D.A. criteria. Hemoglobin (Bld) [Mass/Vol] 16.5 g/dL 13.0-16. 5 [facility] Monocytes/100 WBC (Bld) 15.1 % 0-10 [facility] Neutrophils (Bld) [#/Vol] 12.6 10*3/uL 2.0-7.7 [facility] Neutrophils/100 WBC (Bld) 66.7 % 47-70 [facility] Potassium [Moles/Vol] 3.6 mmol/L 3.5-5.1 [facility] Sodium [Moles/Vol] 136 mmol/L 136-145 [facility] WBC (Bld) [#/Vol] 19.0 10*3/uL 4.4-11.0 [facility] Blood manual differential co mment interpretation (narrative result)Ordered By: Adan Bell on 10-09-2023 Manual differential comment Isrrael (Bld) [Interp] SCANNED [facility] Comment on above: MONOCYTOSIS PRESENT Determination of erythrocyte mean corpuscular volume (MCV)Ordered By: Adan Bell on 10-09-2023 MCV (RBC) [Entitic vol] 84.3 fL 80-94 [facility] Erythrocyte distribution wid th ratioOrdered By: Adan Bell on 10-09-2023 Erythrocyte distribution width (RBC) [Ratio] 14.9 % 11.6-14.6 [facility] Erythrocyte distribution wid th standard deviationOrdered By: Adan Bell on 10-09-2023 Erythrocyte distribution width (RBC) [Entitic vol] 45.5 fL 35.1-43.9 [facility] Hematocrit Auto (Bld) [Volum e fraction]Ordered By: Adan Bell on 10-09-2023 Hematocrit (Bld) [Volume fraction] 50.0 % 40-54 [facility] Immature granulocytes/100 WB C Auto (Bld)Ordered By: Adan Bell on 10-09-2023 Immature granulocytes/100 WBC (Bld) 0.500 % 0.0-0.9 [facility] Comment on above: IG% - Immature Granu locytes (promyelocytes, myelocytes and metamyelocytes) > 1% indicates that a LEFT SHIFT is Present. Laboratory - Chemistry and C hemistry - challengeOrdered By: Adan Bell on 10-09-2023 CO2 [Moles/Vol] 26.0 mmol/L 21.0-32.0 [facility] Urea nitrogen/Creatinine [Mass ratio] 17.3 mg/mg 10-20 [facility] Laboratory - Hematology and Cell countsOrdered By: Adan Bell on 10-09-2023 MCH (RBC) [Entitic mass] 27.8 pg 27.0-32.0 [facility] MCHC (RBC) [Mass/Vol] 33.0 g/dL 32-36 [facility] Nucleated RBC/100 WBC (Bld) [Ratio] 0 % 0-5 [facility] Platelet mean volume (Bld) [Entitic vol] 9.5 fL 6.2-12.0 [facility] Platelets (Bld) [#/Vol] 531 10*3/uL 150-450 [facility] No Panel InformationOrdered By: Adan Bell on 10-09-2023 Troponin I High Sensitivity 7 pg/mL 3.0-78.0 [facility] Comment on above: Please Note: New Tanya t Units and Gender Specific Reference Ranges. For more information see Policy Stat Procedure [place] High Sensitivity Troponin (TNIH) and attachments. Estimated GFR (MDRD) Amer 135 mL/min >60 [facility] Comment on above: GFR Calc Estimated GFR (MDRD) Non-Af Amer 112 mL/min >60 [facility] Comment on above: Non- GFR Calc RBC Auto (Bld) [#/Vol]Ordere d By: Adan Bell on 10-09-2023 RBC (Bld) [#/Vol] 5.93 10*6/uL 4.6-6.2 [facility] Review by pathologistOrdered By: Adan Bell on 10-09-2023 Pathologist review Isrrael (Unsp spec) [Interp] May foll [facility] Serum or plasma calcium shantal urement (mass/volume)Ordered By: Adan Bell on 10-09-2023 Calcium [Mass/Vol] 9.7 mg/dL 8.5-10.1 [facility] Serum or plasma creatinine m easurement (mass/volume)Ordered By: Adan Bell on 10-09-2023 Creatinine [Mass/Vol] 0.75 mg/dL 0.70-1.30 [facility] Comment on above: The validity of the calculated GFR & GFRAA in patients over 70 years has not been determined. Clinical correlation is essential. Serum or plasma urea nitroge n measurement (mass/volume)Ordered By: Adan Bell on 10-09-2023 Urea nitrogen [Mass/Vol] 13 mg/dL 7-18 [facility] Thin prep Papanicolaou smear with manual screeningOrdered By: Adan Bell on 10-09-2023 Thin prep Papanicolaou smear with manual screening 10 5-15 [facility] Absolute lymphocyte counton 06-06-2022 Lymphocytes Auto (Unsp spec) [#/Vol] 3.07 10*3/uL 0.83-4.51 [facility] Work Phone: Basophil percentageon 2022 Basophil percentage 10-25 SEEN /hpf 0-5 [facility] Work Phone: Basophils/100 WBC (Bld) 0.3 % 0-1 [facility] Work Phone: Chloride [Moles/Vol] 109 mmol/L 98-107 [facility] Work Phone: Eosinophils/100 WBC (Bld) 1.4 % 0-5 [facility] Work Phone: Glucose [Mass/Vol] 93 mg/dL 74-106 [facility] Work Phone: Neutrophils (Bld) [#/Vol] 10.5 10*3/uL 2.0-7.7 [facility] Work Phone: Neutrophils/100 WBC (Bld) 67.2 % 47-70 [facility] Work Phone: Potassium [Moles/Vol] 3.8 mmol/L 3.5-5.1 [facility] Work Phone: Sodium [Moles/Vol] 143 mmol/L 136-145 [facility] Work Phone: WBC (Bld) [#/Vol] 15.7 10*3/uL 4.4-11.0 [facility] Work Phone: [phone] Bilirubin Test strip Ql (U)o n 06-06-2022 Bilirubin Ql (U) Negative Negative [facility] Work Phone: Blood erythrocytes count (nu mber/volume)on 06-06-2022 RBC (Bld) [#/Vol] 5.18 10*6/uL 4.6-6.2 [facility] Work Phone: Blood hemoglobin measurement (mass/volume)on 06-06-2022 Hemoglobin (Bld) [Mass/Vol] 14.2 g/dL 13.0-16. 5 [facility] Work Phone: Blood lymphocytes/100 leukoc yteson 06-06-2022 Lymphocytes/100 WBC (Bld) 19.6 % 19-41 [facility] Work Phone: Blood manual differential co mment interpretation (narrative result)on 06-06-2022 Manual differential comment Isrrael (Bld) [Interp] SCANNED [facility] Work Phone: Blood monocytes/100 leukocyt eson 06-06-2022 Monocytes/100 WBC (Bld) 10.9 % 0-10 [facility] Work Phone: Blood platelet mean volumeon 06-06-2022 Platelet mean volume (Bld) [Entitic vol] 9.5 fL 6.2-12.0 [facility] Work Phone: Determination of erythrocyte mean corpuscular volume (MCV)on 06-06-2022 MCV (RBC) [Entitic vol] 87.1 fL 80-94 [facility] Work Phone: Hematocrit Auto (Bld) [Volum e fraction]on 06-06-2022 Hematocrit (Bld) [Volume fraction] 45.1 % 40-54 [facility] Work Phone: Ketones Test strip Ql (U)on 06-06-2022 Ketones Ql (U) 5 mg/dl Negative [facility] Work Phone: Laboratory - Chemistry and C hemistry - challengeon 06-06-2022 CO2 [Moles/Vol] 29.0 mmol/L 21.0-32.0 [facility] Work Phone: Urea nitrogen/Creatinine [Mass ratio] 21.8 mg/mg 10-20 [facility] Work Phone: Laboratory - Hematology and Cell countson 06-06-2022 Erythrocyte distribution width (RBC) [Entitic vol] 49.6 fL 35.1-43.9 [facility] Work Phone: Erythrocyte distribution width (RBC) [Ratio] 15.7 % 11.6-14.6 [facility] Work Phone: Immature granulocytes/100 WBC (Bld) 0.600 % 0.0-0.9 [facility] Work Phone: Comment on above: IG% - Immature Granu locytes (promyelocytes, myelocytes and metamyelocytes) > 1% indicates that a LEFT SHIFT is Present. MCH (RBC) [Entitic mass] 27.4 pg 27.0-32.0 [facility] Work Phone: [phone] Nucleated RBC/100 WBC (Bld) [Ratio] 0 % 0-5 [facility] Work Phone: MCHC Auto (RBC) [Mass/Vol]on 06-06-2022 MCHC (RBC) [Mass/Vol] 31.5 g/dL 32-36 [facility] Work Phone: Mucus LM Ql (Urine sed)on Mucus Ql (Urine sed) 0 SEEN /hpf [facility] Work Phone: Nitrite Test strip Ql (U)on 06-06-2022 Nitrite Ql (U) Positive Negative [facility] Work Phone: No Panel Informationon 06-06 Estimated Creatinine Clearance Calc 88.45 ml/min [facility] Work Phone: Estimated GFR (MDRD) Amer 122 mL/min >60 [facility] Work Phone: Comment on above: GFR Calc Estimated GFR (MDRD) Non-Af Amer 101 mL/min >60 [facility] Work Phone: Comment on above: Non- GFR Calc Platelets bldon 06-06-2022 Platelets (Bld) [#/Vol] 433 10*3/uL 150-450 [facility] Work Phone: Protein Test strip Ql (U)on 06-06-2022 Protein Ql (U) 15 mg/dl Negative [facility] Work Phone: Review by pathologiston Pathologist review Isrrael (Unsp spec) [Interp] September mikael [facility] Work Phone: Serum or plasma calcium shantal urement (mass/volume)on 06-06-2022 Calcium [Mass/Vol] 9.1 mg/dL 8.5-10.1 [facility] Work Phone: Serum or plasma creatinine m easurement (mass/volume)on 06-06-2022 Creatinine [Mass/Vol] 0.82 mg/dL 0.70-1.30 [facility] Work Phone: Comment on above: The validity of the calculated GFR & GFRAA in patients over 70 years has not been determined. Clinical correlation is essential. Serum or plasma urea nitroge n measurement (mass/volume)on 06-06-2022 Urea nitrogen [Mass/Vol] 18 mg/dL 7-18 [facility] Work Phone: Squamous epithelial cells de tection in urine sediment by light microscopyon 06-06-2022 Epithelial cells.squamous LM Ql (Urine sed) 0 SEEN /hpf 0-5 [facility] Work Phone: Thin prep Papanicolaou smear with manual screeningon 06-06-2022 Thin prep Papanicolaou smear with manual screening 5 5-15 [facility] Work Phone: [phone] Urine blood detectionon RBC Ql (U) 25 /ul Negative [facility] Work Phone: [phone] RBC Ql (U) 0-5 SEEN /hpf 0-5 [facility] Work Phone: Urine clarityon 06-06-2022 Clarity (U) Clear Clear [facility] Work Phone: Urine color determinationon 06-06-2022 Color (U) Yellow Yellow [facility] Work Phone: Urine glucose detectionon Glucose Ql (U) Normal mg/dl Normal [facility] Work Phone: Urine leukocyte esterase det ection by dipstickon 06-06-2022 Leukocyte esterase Test strip Ql (U) 500 /ul Negative [facility] Work Phone: [phone] Urine pHon 06-06-2022 pH (U) 6.0 [pH] 5.0 - 8.0 [facility] Work Phone: Urine sediment bacteria coun t by microscopy (number/high power field)on 06-06-2022 Bacteria LM.HPF (Urine sed) [#/Area] 2 /[HPF] None Seen [facility] Work Phone: Urine specific gravity measu rementon 06-06-2022 Specific gravity (U) [Rel density] 1.020 1.002-1.03 0 [facility] Work Phone: Urobilinogen Auto test strip Ql (U)on 06-06-2022 Urobilinogen Ql (U) Normal mg/dl Normal [facility] Work Phone: Absolute lymphocyte counton 05-22-2022 Lymphocytes Auto (Unsp spec) [#/Vol] 0.67 10*3/uL 0.83-4.51 [facility] Work Phone: Basophil percentageon 2021 Basophils/100 WBC (Bld) 0.4 % 0-1 [facility] Work Phone: Chloride [Moles/Vol] 105 mmol/L 98-107 [facility] Work Phone: Eosinophils/100 WBC (Bld) 0.1 % 0-5 [facility] Work Phone: Glucose [Mass/Vol] 102 mg/dL 74-106 [facility] Work Phone: [phone] Comment on above: Fasting Glucose resu lt from 100 to 125 mg/dL suggests IMPAIRED HOMEOSTASIS per A.D.A. criteria. Neutrophils (Bld) [#/Vol] 7.0 10*3/uL 2.0-7.7 [facility] Work Phone: Neutrophils/100 WBC (Bld) 77.2 % 47-70 [facility] Work Phone: [phone] Potassium [Moles/Vol] 4.2 mmol/L 3.5-5.1 [facility] Work Phone: [phone] Comment on above: Slight Hemolysis, Re sult may be falsely increased. Sodium [Moles/Vol] 135 mmol/L 136-145 [facility] Work Phone: WBC (Bld) [#/Vol] 9.1 10*3/uL 4.4-11.0 [facility] Work Phone: Blood erythrocytes count (nu mber/volume)on 05-22-2022 RBC (Bld) [#/Vol] 5.47 10*6/uL 4.6-6.2 [facility] Work Phone: Blood hemoglobin measurement (mass/volume)on 05-22-2022 Hemoglobin (Bld) [Mass/Vol] 15.6 g/dL 13.0-16. 5 [facility] Work Phone: Blood lymphocytes/100 leukoc yteson 05-22-2022 Lymphocytes/100 WBC (Bld) 7.3 % 19-41 [facility] Work Phone: Blood monocytes/100 leukocyt eson 05-22-2022 Monocytes/100 WBC (Bld) 14.7 % 0-10 [facility] Work Phone: Blood platelet mean volumeon 05-22-2022 Platelet mean volume (Bld) [Entitic vol] 9.7 fL 6.2-12.0 [facility] Work Phone: [phone] Determination of erythrocyte mean corpuscular volume (MCV)on 05-22-2022 MCV (RBC) [Entitic vol] 84.5 fL 80-94 [facility] Work Phone: [phone] Hematocrit Auto (Bld) [Volum e fraction]on 05-22-2022 Hematocrit (Bld) [Volume fraction] 46.2 % 40-54 [facility] Work Phone: Laboratory - Chemistry and C hemistry - challengeon 05-22-2022 CO2 [Moles/Vol] 22.0 mmol/L 21.0-32.0 [facility] Work Phone: [phone] Urea nitrogen/Creatinine [Mass ratio] 22.5 mg/mg 10-20 [facility] Work Phone: [phone] Laboratory - Hematology and Cell countson 05-22-2022 Erythrocyte distribution width (RBC) [Entitic vol] 49.6 fL 35.1-43.9 [facility] Work Phone: [phone] Erythrocyte distribution width (RBC) [Ratio] 16.1 % 11.6-14.6 [facility] Work Phone: [phone] Immature granulocytes/100 WBC (Bld) 0.300 % 0.0-0.9 [facility] Work Phone: Comment on above: IG% - Immature Granu locytes (promyelocytes, myelocytes and metamyelocytes) > 1% indicates that a LEFT SHIFT is Present. MCH (RBC) [Entitic mass] 28.5 pg 27.0-32.0 [facility] Work Phone: Nucleated RBC/100 WBC (Bld) [Ratio] 0 % 0-5 [facility] Work Phone: MCHC Auto (RBC) [Mass/Vol]on 05-22-2022 MCHC (RBC) [Mass/Vol] 33.8 g/dL 32-36 [facility] Work Phone: No Panel Informationon 05-22 Estimated Creatinine Clearance Calc 92.35 ml/min [facility] Work Phone: Estimated GFR (MDRD) Amer 119 mL/min >60 [facility] Work Phone: Comment on above: GFR Calc Estimated GFR (MDRD) Non-Af Amer 98 mL/min >60 [facility] Work Phone: Comment on above: Non- GFR Calc Platelets bldon 05-22-2022 Platelets (Bld) [#/Vol] 268 10*3/uL 150-450 [facility] Work Phone: Serum or plasma calcium shantal urement (mass/volume)on 05-22-2022 Calcium [Mass/Vol] 9.1 mg/dL 8.5-10.1 [facility] Work Phone: Serum or plasma creatinine m easurement (mass/volume)on 05-22-2022 Creatinine [Mass/Vol] 0.84 mg/dL 0.70-1.30 [facility] Work Phone: Comment on above: The validity of the calculated GFR & GFRAA in patients over 70 years has not been determined. Clinical correlation is essential. Serum or plasma urea nitroge n measurement (mass/volume)on 05-22-2022 Urea nitrogen [Mass/Vol] 19 mg/dL 7-18 [facility] Work Phone: Thin prep Papanicolaou smear with manual screeningon 05-22-2022 Thin prep Papanicolaou smear with manual screening 8 5-15 [facility] Work Phone: [phone] Absolute lymphocyte counton 09-09-2021 Lymphocytes Auto (Unsp spec) [#/Vol] 2.88 10*3/uL 0.83-4.51 [facility] Work Phone: Basophil percentageon 2021 Basophils/100 WBC (Bld) 0.5 % 0-1 [facility] Work Phone: Chloride [Moles/Vol] 111 mmol/L 98-107 [facility] Work Phone: Eosinophils/100 WBC (Bld) 4.8 % 0-5 [facility] Work Phone: Glucose [Mass/Vol] 109 mg/dL 74-106 [facility] Work Phone: [phone] Comment on above: Fasting Glucose resu lt from 100 to 125 mg/dL suggests IMPAIRED HOMEOSTASIS per A.D.A. criteria. Neutrophils (Bld) [#/Vol] 6.3 10*3/uL 2.0-7.7 [facility] Work Phone: Neutrophils/100 WBC (Bld) 59.3 % 47-70 [facility] Work Phone: [phone] Potassium [Moles/Vol] 3.9 mmol/L 3.5-5.1 [facility] Work Phone: Sodium [Moles/Vol] 140 mmol/L 136-145 [facility] Work Phone: WBC (Bld) [#/Vol] 10.5 10*3/uL 4.4-11.0 [facility] Work Phone: [phone] Blood erythrocytes count (nu mber/volume)on 09-09-2021 RBC (Bld) [#/Vol] 5.23 10*6/uL 4.6-6.2 [facility] Work Phone: Blood hemoglobin measurement (mass/volume)on 09-09-2021 Hemoglobin (Bld) [Mass/Vol] 15.0 g/dL 13.0-16. 5 [facility] Work Phone: Blood lymphocytes/100 leukoc yteson 09-09-2021 Lymphocytes/100 WBC (Bld) 27.4 % 19-41 [facility] Work Phone: Blood monocytes/100 leukocyt eson 09-09-2021 Monocytes/100 WBC (Bld) 7.5 % 0-10 [facility] Work Phone: Blood platelet mean volumeon 09-09-2021 Platelet mean volume (Bld) [Entitic vol] 9.1 fL 6.2-12.0 [facility] Work Phone: [phone] Determination of erythrocyte mean corpuscular volume (MCV)on 09-09-2021 MCV (RBC) [Entitic vol] 88.5 fL 80-94 [facility] Work Phone: Hematocrit Auto (Bld) [Volum e fraction]on 09-09-2021 Hematocrit (Bld) [Volume fraction] 46.3 % 40-54 [facility] Work Phone: [phone] Laboratory - Chemistry and C hemistry - challengeon 09-09-2021 CO2 [Moles/Vol] 25.0 mmol/L 21.0-32.0 [facility] Work Phone: [phone] Urea nitrogen/Creatinine [Mass ratio] 22.4 mg/mg 10-20 [facility] Work Phone: [phone] Laboratory - Hematology and Cell countson 09-09-2021 Erythrocyte distribution width (RBC) [Entitic vol] 49.1 fL 35.1-43.9 [facility] Work Phone: [phone] Erythrocyte distribution width (RBC) [Ratio] 15.0 % 11.6-14.6 [facility] Work Phone: [phone] Immature granulocytes/100 WBC (Bld) 0.500 % 0.0-0.9 [facility] Work Phone: [phone] Comment on above: IG% - Immature Granu locytes (promyelocytes, myelocytes and metamyelocytes) > 1% indicates that a LEFT SHIFT is Present. MCH (RBC) [Entitic mass] 28.7 pg 27.0-32.0 [facility] Work Phone: Nucleated RBC/100 WBC (Bld) [Ratio] 0 % 0-5 [facility] Work Phone: MCHC Auto (RBC) [Mass/Vol]on 09-09-2021 MCHC (RBC) [Mass/Vol] 32.4 g/dL 32-36 [facility] Work Phone: No Panel Informationon 09-09 Estimated Creatinine Clearance Calc 80.85 ml/min [facility] Work Phone: Estimated GFR (MDRD) Amer 105 mL/min >60 [facility] Work Phone: Comment on above: GFR Calc Estimated GFR (MDRD) Non-Af Amer 87 mL/min >60 [facility] Work Phone: Comment on above: Non- GFR Calc Platelets bldon 09-09-2021 Platelets (Bld) [#/Vol] 308 10*3/uL 150-450 [facility] Work Phone: Serum or plasma calcium shantal urement (mass/volume)on 09-09-2021 Calcium [Mass/Vol] 9.0 mg/dL 8.5-10.1 [facility] Work Phone: Serum or plasma creatinine m easurement (mass/volume)on 09-09-2021 Creatinine [Mass/Vol] 0.94 mg/dL 0.70-1.30 [facility] Work Phone: Comment on above: The validity of the calculated GFR & GFRAA in patients over 70 years has not been determined. Clinical correlation is essential. Serum or plasma urea nitroge n measurement (mass/volume)on 09-09-2021 Urea nitrogen [Mass/Vol] 21 mg/dL 7-18 [facility] Work Phone: Thin prep Papanicolaou smear with manual screeningon 09-09-2021 Thin prep Papanicolaou smear with manual screening 4 5-15 [facility] Work Phone: Basophil percentageon 2021 Bilirubin [Mass/Vol] 0.60 mg/dL 0.20-1.00 [facility] Work Phone: Comment on above: For patients on eltr ombopag therapy, use of Dimension [place] TBIL is not recommended. Chloride [Moles/Vol] 105 mmol/L 98-107 [facility] Work Phone: Glucose [Mass/Vol] 112 mg/dL 74-106 [facility] Work Phone: Comment on above: Fasting Glucose resu lt from 100 to 125 mg/dL suggests IMPAIRED HOMEOSTASIS per A.D.A. criteria. Potassium [Moles/Vol] 3.9 mmol/L 3.5-5.1 [facility] Work Phone: Protein [Mass/Vol] 7.6 g/dL 6.4-8.2 [facility] Work Phone: Sodium [Moles/Vol] 136 mmol/L 136-145 [facility] Work Phone: WBC (Bld) [#/Vol] 14.9 10*3/uL 4.4-11.0 [facility] Work Phone: Blood erythrocytes count (nu mber/volume)on 06-29-2021 RBC (Bld) [#/Vol] 6.16 10*6/uL 4.6-6.2 [facility] Work Phone: Blood hemoglobin measurement (mass/volume)on 06-29-2021 Hemoglobin (Bld) [Mass/Vol] 18.1 g/dL 13.0-16. 5 [facility] Work Phone: Blood platelet mean volumeon 06-29-2021 Platelet mean volume (Bld) [Entitic vol] 9.8 fL 6.2-12.0 [facility] Work Phone: Determination of erythrocyte mean corpuscular volume (MCV)on 06-29-2021 MCV (RBC) [Entitic vol] 86.7 fL 80-94 [facility] Work Phone: Hematocrit Auto (Bld) [Volum e fraction]on 06-29-2021 Hematocrit (Bld) [Volume fraction] 53.4 % 40-54 [facility] Work Phone: Laboratory - Chemistry and C hemistry - challengeon 06-29-2021 ALP [Catalytic activity/Vol] 167 U/L 45-117 [facility] Work Phone: [phone] ALT [Catalytic activity/Vol] 23 U/L 16-61 [facility] Work Phone: [phone] CO2 [Moles/Vol] 24.0 mmol/L 21.0-32.0 [facility] Work Phone: Globulin (S) [Mass/Vol] 4.5 g/dL 2.2-4.2 [facility] Work Phone: Urea nitrogen/Creatinine [Mass ratio] 19.4 mg/mg 10-20 [facility] Work Phone: Laboratory - Hematology and Cell countson 06-29-2021 Erythrocyte distribution width (RBC) [Entitic vol] 49.0 fL 35.1-43.9 [facility] Work Phone: Erythrocyte distribution width (RBC) [Ratio] 16.0 % 11.6-14.6 [facility] Work Phone: MCH (RBC) [Entitic mass] 29.4 pg 27.0-32.0 [facility] Work Phone: MCHC Auto (RBC) [Mass/Vol]on 06-29-2021 MCHC (RBC) [Mass/Vol] 33.9 g/dL 32-36 [facility] Work Phone: Comment on above: Delta: 32.1 on 06/28 No Panel Informationon 06-29 Estimated Creatinine Clearance Calc 113.43 ml/min [facility] Work Phone: Estimated GFR (MDRD) Amer 156 mL/min >60 [facility] Work Phone: Comment on above: GFR Calc Estimated GFR (MDRD) Non-Af Amer 129 mL/min >60 [facility] Work Phone: Comment on above: Non- GFR Calc Platelets bldon 06-29-2021 Platelets (Bld) [#/Vol] 283 10*3/uL 150-450 [facility] Work Phone: Review by pathologiston Pathologist review Isrrael (Unsp spec) [Interp] Reviewed [facility] Work Phone: Comment on above: Previous reported re sult: Eleni youssef Edited by: ELOY on 06/30/21:931Neutrophilic leukocytosis.Clinical correlation suggested.Norris Mc D.O. 06/30/21 AMENDED REPORT 06/30/21 0932 PATH REV previously reported as: September mikael Serum or plasma albumin shantal urement (mass/volume)on 06-29-2021 Albumin [Mass/Vol] 3.1 g/dL 3.2-5.0 [facility] Work Phone: Serum or plasma albumin/glob ulin mass ratioon 06-29-2021 Albumin/Globulin [Mass ratio] 0.7 {ratio} 0.9-2.4 [facility] Work Phone: Serum or plasma calcium shantal urement (mass/volume)on 06-29-2021 Calcium [Mass/Vol] 9.5 mg/dL 8.5-10.1 [facility] Work Phone: Serum or plasma creatinine m easurement (mass/volume)on 06-29-2021 Creatinine [Mass/Vol] 0.67 mg/dL 0.70-1.30 [facility] Work Phone: Comment on above: The validity of the calculated GFR & GFRAA in patients over 70 years has not been determined. Clinical correlation is essential. Serum or plasma urea nitroge n measurement (mass/volume)on 06-29-2021 Urea nitrogen [Mass/Vol] 13 mg/dL 7-18 [facility] Work Phone: [phone] Thin prep Papanicolaou smear with manual screeningon 06-29-2021 Thin prep Papanicolaou smear with manual screening 36 U/L 15-37 [facility] Work Phone: Thin prep Papanicolaou smear with manual screening 7 5-15 [facility] Work Phone: [phone] Absolute lymphocyte counton 06-28-2021 Lymphocytes Auto (Unsp spec) [#/Vol] 2.53 10*3/uL 0.83-4.51 [facility] Work Phone: Basophil percentageon 2021 Basophils/100 WBC (Bld) 0.4 % 0-1 [facility] Work Phone: [phone] Cholesterol [Mass/Vol] 142 mg/dL <200 [facility] Work Phone: [phone] Comment on above: <200 mg/dL Desirable 200-240 mg/dL Borderline >240 mg/dL High Risk Eosinophils/100 WBC (Bld) 2.1 % 0-5 [facility] Work Phone: [phone] Neutrophils (Bld) [#/Vol] 8.4 10*3/uL 2.0-7.7 [facility] Work Phone: [phone] Neutrophils/100 WBC (Bld) 69.2 % 47-70 [facility] Work Phone: [phone] Triglyceride [Mass/Vol] 141 mg/dL [facility] Work Phone: [phone] Comment on above: The drugs N-Acetylcy steine and Metamizole may falsely depress this assay.Serum Triglycerides Reference Interval Normal <150 mg/dL Borderline high 150 - 199 mg/dL High 200 - 499 mg/dL Very High > or = 500 mg/dL Blood lymphocytes/100 leukoc yteson 06-28-2021 Lymphocytes/100 WBC (Bld) 20.9 % 19-41 [facility] Work Phone: Blood monocytes/100 leukocyt eson 06-28-2021 Monocytes/100 WBC (Bld) 6.9 % 0-10 [facility] Work Phone: Laboratory - Chemistry and C hemistry - challengeon 06-28-2021 Magnesium [Mass/Vol] 2.1 mg/dL 1.6-2.6 [facility] Work Phone: Laboratory - Hematology and Cell countson 06-28-2021 Immature granulocytes/100 WBC (Bld) 0.500 % 0.0-0.9 [facility] Work Phone: Comment on above: IG% - Immature Granu locytes (promyelocytes, myelocytes and metamyelocytes) > 1% indicates that a LEFT SHIFT is Present. Nucleated RBC/100 WBC (Bld) [Ratio] 0 % 0-5 [facility] Work Phone: No Panel Informationon 06-28 Troponin I High Sensitivity 3963 pg/mL 3.0-78.0 [facility] Work Phone: Comment on above: Critical Result(s) C alled at: 08:02:18 06/28/2021 by: Yesi Mcbride to Mal[place]. Results read back by same. Please Note: New Test Units and Gender Specific Reference Ranges. For more information see Policy Stat Procedure [place] High Sensitivity Troponin (TNIH) and attachments. Serum or plasma cholesterol in HDL measurement (mass/volume)on 06-28-2021 Cholesterol in HDL [Mass/Vol] 39 mg/dL [facility] Work Phone: Comment on above: The drugs N-Acetylcy steine and Metamizole may falsely depress this assay. Reference Range HDL <40 mg/dL Low HDL Cholesterol HDL >or= 60 mg/dL High HDL Cholesterol Serum or plasma cholesterol in VLDL measurement (mass/volume)on 06-28-2021 Cholesterol in VLDL [Mass/Vol] 28 mg/dL 5-40 [facility] Work Phone: Serum or plasma low density lipoprotein (LDL) cholesterol measurement (mass/volume)on 06-28-2021 Cholesterol in LDL [Mass/Vol] 75 mg/dL 0-130 [facility] Work Phone: Basic Metabolic Panelon 12-3 Anion gap 3 mmol/L Normal [facility] Comment on above: Performed By: #### H EMOG, LACT3, BMP3 ####[address] [place] [address] Calcium 8.5 mg/dL Normal 8.4-10.2 [facility] Comment on above: Performed By: #### H EMOG, LACT3, BMP3 ####[address] [place] [address] CO2 27 mmol/L Normal 22-30 [facility] Comment on above: Performed By: #### H EMOG, LACT3, BMP3 ####[address] [place] [address] Glucose mass conc 111 mg/dL High 70-100 [facility] Comment on above: Performed By: #### H EMOG, LACT3, BMP3 ####[address] [place] [address] Urea nitrogen 13 mg/dL Normal 7-20 [facility] Comment on above: Performed By: #### H EMOG, LACT3, BMP3 ####[address] [place] [address] Creatinine 0.71 mg/dL Normal 0.52-1.25 [facility] Comment on above: Performed By: #### H EMOG, LACT3, BMP3 ####[address] [place] [address] eGFR (black) mL/min/{1.73_m2} Normal >60 [facility] Comment on above: Performed By: #### H EMOG, LACT3, BMP3 ####[address] [place] [address] eGFR (non-black) mL/min/{1.73_m2} Normal >60 [facility] Comment on above: Result Comment: Sour ce- MDRD equation with creatinine calibration to IDMS(NKDEP)eGFR not recommended for drug dose adjustment Performed By: #### H EMOG, LACT3, BMP3 ####[address] [place] [address] Potassium molar conc 4.8 mmol/L Normal 3.5-5.1 [facility] Comment on above: Performed By: #### H EMOG, LACT3, BMP3 ####[address] [place] [address] Sodium 136 mmol/L Low 137-145 [facility] Comment on above: Performed By: #### H EMOG, LACT3, BMP3 ####[address] [place] [address] Chloride 106 mmol/L Normal 98-107 [facility] Comment on above: Performed By: #### H EMOG, LACT3, BMP3 ####[address] [place] [address] Hemogramon 05-28-2017 Erythrocyte distribution width Auto Ratio (RBC) 19.0 % High 11.5-14.5 [facility] Comment on above: Performed By: #### H EMOG, LACT3, BMP3 ####[address] [place] [address] Erythrocytes (RBC) 3.46 10*6/uL Low 4.40-5.90 [facility] Comment on above: Performed By: #### H EMOG, LACT3, BMP3 ####[address] [address] Hematocrit (HCT) 28.1 % Low 40.0-52.0 [facility] Comment on above: Performed By: #### H EMOG, LACT3, BMP3 ####[address] [place] [address] Hemoglobin mass conc (Bld) 9.1 g/dL Low 13.0-18.0 [facility] Comment on above: Performed By: #### H EMOG, LACT3, BMP3 ####[address] [place] [address] MCH 26.4 pg Normal 26.0-34.0 [facility] Comment on above: Performed By: #### H EMOG, LACT3, BMP3 ####[address] [place] [address] MCHC mass conc (RBC) 32.4 % Normal 32.0-36.0 [facility] Comment on above: Performed By: #### H EMOG, LACT3, BMP3 ####[address] [place] [address] MCV 81.4 fL Normal 80.0-98.0 [facility] Comment on above: Performed By: #### H EMOG, LACT3, BMP3 ####[address] [place] [address] Platelet mean volume (PMV) 6.9 fL Low 7.4-10.4 [facility] Comment on above: Performed By: #### H EMOG, LACT3, BMP3 ####[address] [place] [address] Platelets 573 10*3/uL High 140-440 [facility] Comment on above: Performed By: #### H EMOG, LACT3, BMP3 ####[address] [place] [address] WBC (Leukocytes) 11.2 10*3/uL High 3.6-10.7 [facility] Comment on above: Performed By: #### H EMOG, LACT3, BMP3 ####[address] [place] [address] CR Chest Portableon 05-27-20 17 CR Chest Portable Patient Name: BAUTISTA RUFFIN Diagnostic Radiology Exam Date/Time 05/27/2017 11:05:26 EST Exam CR Chest Portable Ordering Physician DO TILLEY KATHRYN C Accession Number [id number] CPT4 Codes 71314 () Reason For Exam line placement Report [...] Transcribed Date and Time: 05/27/2017 11:11 Normal [facility] Lactic Acidon 05-27-2017 Lactate 1.4 mmol/L Normal 0.7-2.0 [facility] Comment on above: Performed By: #### H EMOG, LACT3, BMP3 ####[address] [address] CR Chest Portableon 05-26-20 17 CR Chest Portable Patient Name: BAUTISTA RUFFIN Diagnostic Radiology Exam Date/Time 05/26/2017 16:21:52 EST Exam CR Chest Portable Ordering Physician DO TILLEY KATHRYN C Accession Number [id number] CPT4 Codes 22762 () Reason For Exam line placement Report [...] Transcribed Date and Time: 05/26/2017 7:29 Normal [facility] US Fine Needle Aspiration w/ Image Guideon 05-25-2017 US Fine Needle Aspiration w/ Image Guide Patient Name: BAUTISTA RUFFIN Ultrasound Exam Date/Time 05/25/2017 12:15:00 EST Exam US Fine Needle Aspiration w/ Image Guide Ordering Physician MD PERRY RAMA D Accession Number [id number] CPT4 Codes 57140 () Reason For Exam rt hip effusion Report Reason for examination: Paraplegic patient with sepsis, 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 Ultrasound guided right hip aspiration was performed with the patient in his bed. The procedure, risks, benefits, and alternatives were explained to the patient, and informed consent was obtained. [place] protocol was followed with time out. The [...] Transcribed Date and Time: 05/25/2017 1:35 Normal [facility] Basic Metabolic Panelon 12-2 Calcium 8.0 mg/dL Low 8.4-10.2 [facility] Comment on above: Performed By: #### H EMOG, LACT3, BMP3 ####[place] [address] Anion gap 2 mmol/L Normal [facility] Comment on above: Performed By: #### H EMOG, LACT3, BMP3 ####[address] [place] [address] CO2 30 mmol/L Normal 22-30 [facility] Comment on above: Performed By: #### H EMOG, LACT3, BMP3 ####[place] [address] Creatinine 0.60 mg/dL Normal 0.52-1.25 [facility] Comment on above: Performed By: #### H EMOG, LACT3, BMP3 ####[address] [place] [address] eGFR (black) mL/min/{1.73_m2} Normal >60 [facility] Comment on above: Performed By: #### H EMOG, LACT3, BMP3 ####[address] [place] [address] eGFR (non-black) mL/min/{1.73_m2} Normal >60 [facility] Comment on above: Result Comment: Sour ce- MDRD equation with creatinine calibration to IDMS(NKDEP)eGFR not recommended for drug dose adjustment Performed By: #### H EMOG, LACT3, BMP3 ####[address] [place] [address] Glucose mass conc 98 mg/dL Normal 70-100 [facility] Comment on above: Performed By: #### H EMOG, LACT3, BMP3 ####[address] [place] [address] Urea nitrogen 6 mg/dL Low 7-20 [facility] Comment on above: Performed By: #### H EMOG, LACT3, BMP3 ####[address] [place] [address] Chloride 106 mmol/L Normal 98-107 [facility] Comment on above: Performed By: #### H EMOG, LACT3, BMP3 ####[address] [place] [address] Potassium molar conc 3.7 mmol/L Normal 3.5-5.1 [facility] Comment on above: Performed By: #### H EMOG, LACT3, BMP3 ####[address] [place] [address] Sodium 138 mmol/L Normal 137-145 [facility] Comment on above: Performed By: #### H EMOG, LACT3, BMP3 ####[address] [place] [address] CULTUREon 05-24-2017 CULTURE Specimen Source Comment:Body Fluid [facility] Patient name: BAUTISTA RUFFIN WilderNGage: [id number] : 1960 Age: 57 Sex: M Ord. Physician: CHIVO PERRY Location: [address] [place] [address] Copy to: CHIVO PERRY Adm. Date: 05/19/17 MICROBIOLOGYORDER#: [id number] COLLECTED: 05/24/17 14:18SOURCE: Aspirate Right (Hip) RECEIVED: [...] DOSE DEPENDENT HARMAN VALUES = ug/mL Normal [facility] Comment on above: Performed By: #### H HUY GEORGE3, BMP3 ####[address] [address] [place] [address] CULTURE MYCOBACTERIA Conc.on 05-24-2017 CULTURE MYCOBACTERIA Conc. Specimen Sour ce Comment:Body Fluid [facility] Patient name: BAUTISTA RUFFIN JigneshRGageN.: [id number] : 1960 Age: 57 Sex: M Ord. Physician: CHIVO PERRY Location: [address] [place] [address] Copy to: CHIVO PERRY DISCHARGED: 05/30/17Adm. Date: 05/19/17 MICROBIOLOGYORDER#: [id number] COLLECTED: 05/24/17 14:18SOURCE: Aspirate Right (Hip) RECEIVED: 05/25/17 17:51 OE C Bozena Mckee E N T S Sp ecimen Source Comment:Body FluidCULTURE MYCOBACTERIA Conc. FINAL 07/07/17 17:351Test performed at [facility] Microbiology Lab07/07/17No acid-fast bacilli isolated after 6 weeks incubation. Normal [facility] Comment on above: Performed By: #### H DORIS LACT3, BMP3 ####[id number] Ironon 05-24-2017 Saturation 7 % Low 15-50 [facility] Comment on above: Performed By: #### H EMOG, LACT3, BMP3 ####[address] [place] [address] Total Iron Binding Cap. 142 ug/dL Low 261-497 [facility] Comment on above: Performed By: #### H EMOG, LACT3, BMP3 ####[address] [place] [address] Iron, Total <10 Low 49-181 [facility] Comment on above: Performed By: #### H EMOG, LACT3, BMP3 ####[address] [place] [address] STAIN ACID-FASTon 05-24-2017 STAIN ACID-FAST Specimen Source Comment:Body Fluid [facility] Patient name: BAUTISTA RUFFINR.N.: [id number] : 1960 Age: 57 Sex: M Ord. Physician: CHIVO PERRY Location: [address] [place] [address] Copy to: CHIVO PERRY Adm. Date: 05/19/17 MICROBIOLOGYORDER#: [id number] COLLECTED: 05/24/17 14:18SOURCE: Aspirate Right (Hip) RECEIVED: 05/25/17 17:51 OE C O M M E N T S Sp ecimen Source Comment:Body FluidSTAIN ACID-FAST FINAL 05/26/17 21:011No acid-fast bacilli seen in smear.-Method: Fluorescent Stain Normal [facility] Comment on above: Performed By: #### H EMOG, LACT3, BMP3 ####[address] [place] [address] Vitamin B12on 05-24-2017 Cobalamins (Vitamin B12) 538 pg/mL Normal 239-931 [facility] Comment on above: Performed By: #### H EMOG, LACT3, BMP3 ####[address] [place] [address] Basic Metabolic Panelon 12-2 Anion gap 4 mmol/L Normal [facility] Comment on above: Performed By: #### H EMOG, LACT3, BMP3 ####[address] [place] [address] Calcium 7.6 mg/dL Low 8.4-10.2 [facility] Comment on above: Performed By: #### H EMOG, LACT3, BMP3 ####[address] [place] [address] CO2 24 mmol/L Normal 22-30 [facility] Comment on above: Performed By: #### H EMOBentley, LACT3, BMP3 ####[address] [place] [address] Glucose mass conc 112 mg/dL High 70-100 [facility] Comment on above: Performed By: #### H EMOBentley, LACT3, BMP3 ####[address] [place] [address] Urea nitrogen 9 mg/dL Normal 7-20 [facility] Comment on above: Performed By: #### H EMOG, LACT3, BMP3 ####[address] [place] [address] Creatinine 0.62 mg/dL Normal 0.52-1.25 [facility] Comment on above: Performed By: #### H EMOBentley, LACT3, BMP3 ####[address] [place] [address] eGFR (black) mL/min/{1.73_m2} Normal >60 [facility] Comment on above: Performed By: #### H EMOG, LACT3, BMP3 ####[address] [place] [address] eGFR (non-black) mL/min/{1.73_m2} Normal >60 [facility] Comment on above: Result Comment: Sour ce- MDRD equation with creatinine calibration to IDMS(NKDEP)eGFR not recommended for drug dose adjustment Performed By: #### H EMOG, LACT3, BMP3 ####[address] [place] [address] Chloride 115 mmol/L High 98-107 [facility] Comment on above: Performed By: #### H EMOG, LACT3, BMP3 ####[address] [place] [address] Potassium molar conc 3.1 mmol/L Low 3.5-5.1 [facility] Comment on above: Performed By: #### H EMOG, LACT3, BMP3 ####[address] [place] [address] Sodium 143 mmol/L Normal 137-145 [facility] Comment on above: Performed By: #### H EMOG, LACT3, BMP3 ####[address] [place] [address] CT Pelvis w/ Contrast (IV On ly)on 05-23-2017 CT Pelvis w/ Contrast (IV Only) Patient Name: BAUTISTA RUFFIN CT Exam Date/Time 05/23/2017 14:28:[address] Pelvis w/ Contrast (IV Only) Ordering Physician TRNIA MAYER Accession Number [id number] CPT4 Codes Q9967 (), 43805 (CT Pelvis w/ Contrast (IV Only)) Reason [...] Transcribed Date and Time: 05/23/2017 3:48 Normal [facility] Hemogramon 05-23-2017 Erythrocyte distribution width Auto Ratio (RBC) 18.5 % High 11.5-14.5 [facility] Comment on above: Performed By: #### H EMOG, LACT3, BMP3 ####[address] [address] Erythrocytes (RBC) 3.28 10*6/uL Low 4.40-5.90 [facility] Comment on above: Performed By: #### H EMOG, LACT3, BMP3 ####[address] [address] Hematocrit (HCT) 27.1 % Low 40.0-52.0 [facility] Comment on above: Performed By: #### H EMOG, LACT3, BMP3 ####[address] [place] [address] Hemoglobin mass conc (Bld) 8.8 g/dL Low 13.0-18.0 [facility] Comment on above: Performed By: #### H EMOG, LACT3, BMP3 ####[address] [place] [address] MCH 26.8 pg Normal 26.0-34.0 [facility] Comment on above: Performed By: #### H EMOG, LACT3, BMP3 ####[address] [place] [address] MCHC mass conc (RBC) 32.5 % Normal 32.0-36.0 [facility] Comment on above: Performed By: #### H EMOG, LACT3, BMP3 ####[address] [place] [address] MCV 82.6 fL Normal 80.0-98.0 [facility] Comment on above: Performed By: #### H EMOG, LACT3, BMP3 ####[address] [place] [address] Platelet mean volume (PMV) 6.9 fL Low 7.4-10.4 [facility] Comment on above: Performed By: #### H EMOG, LACT3, BMP3 ####[address] [place] [address] Platelets 829 10*3/uL High 140-440 [facility] Comment on above: Performed By: #### H EMOG, LACT3, BMP3 ####[address] [place] [address] WBC (Leukocytes) 14.6 10*3/uL High 3.6-10.7 [facility] Comment on above: Performed By: #### H EMOG, LACT3, BMP3 ####[address] [place] [address] Basic Metabolic Panelon 12-2 Calcium 7.9 mg/dL Low 8.4-10.2 [facility] Comment on above: Performed By: #### H EMOG, BMP3 ####[address] [place] [address] Glucose mass conc 163 mg/dL High 70-100 [facility] Comment on above: Performed By: #### H EMOG, BMP3 ####[address] [place] [address] Urea nitrogen 8 mg/dL Normal 7-20 [facility] Comment on above: Performed By: #### Xander GEORGE BMP3 ####[address] [place] [address] Anion gap 6 mmol/L Normal [facility] Comment on above: Performed By: #### Xander GEORGE BMP3 ####[address] [place] [address] CO2 22 mmol/L Normal 22-30 [facility] Comment on above: Performed By: #### Xander GEORGE BMP3 ####[address] [place] [address] Creatinine 0.69 mg/dL Normal 0.52-1.25 [facility] Comment on above: Performed By: #### Xander GEORGE BMP3 ####[address] [place] [address] eGFR (black) mL/min/{1.73_m2} Normal >60 [facility] Comment on above: Performed By: #### Xander GEORGE BMP3 ####[address] [place], [place] [address] eGFR (non-black) mL/min/{1.73_m2} Normal >60 [facility] Comment on above: Result Comment: Sour ce- MDRD equation with creatinine calibration to IDMS(NKDEP)eGFR not recommended for drug dose adjustment Performed By: #### Xander GEORGE BMP3 ####[address] [place] [address] Potassium molar conc 3.3 mmol/L Low 3.5-5.1 [facility] Comment on above: Performed By: #### Xander GEORGE BMP3 ####[address] [place] [address] Chloride 118 mmol/L High 98-107 [facility] Comment on above: Performed By: #### Xander GEORGE BMP3 ####[address] [place] [address] Sodium 145 mmol/L Normal 137-145 [facility] Comment on above: Performed By: #### H EMOG, BMP3 ####[address] [place] [address] C-Reactive Proteinon 017 C reactive protein (CRP) 51.9 mg/L High 0.0-6.0 [facility] Comment on above: Result Comment: . Performed By: #### H EMOG, LACT3, BMP3 ####[address] [place] [address] CR Hip w/ Pelvis 2 or 3 View s Lefton 05-22-2017 CR Hip w/ Pelvis 2 or 3 Views Left Patient Name: BAUTISTA RUFFIN Diagnostic Radiology Exam Date/Time 05/22/2017 19:52:21 EST Exam CR Hip w/ Pelvis 2 or 3 Views Left n Ordering Physician MD LEDESMA ADAM Accession Number [id number] CPT4 Codes 55182 () Reason For Exam pain Report LEFT [...] Transcribed Date and Time: 05/22/2017 7:32 Normal [facility] Hemogramon 05-22-2017 Erythrocyte distribution width Auto Ratio (RBC) 18.1 % High 11.5-14.5 [facility] Comment on above: Performed By: #### H DAWIT GEORGE3 ####[address] [place] [address] Erythrocytes (RBC) 3.53 10*6/uL Low 4.40-5.90 [facility] Comment on above: Performed By: #### H DAWIT GEORGE3 ####[address] [place] [address] Hematocrit (HCT) 29.1 % Low 40.0-52.0 [facility] Comment on above: Performed By: #### H DAWIT GEORGE3 ####[address] [place] [address] Hemoglobin mass conc (Bld) 9.6 g/dL Low 13.0-18.0 [facility] Comment on above: Performed By: #### DAWIT ALEXANDRA3 ####[address] [place] [address] MCH 27.2 pg Normal 26.0-34.0 [facility] Comment on above: Performed By: #### DAWIT ALEXANDRA3 ####[address] [place] [address] MCHC mass conc (RBC) 32.9 % Normal 32.0-36.0 [facility] Comment on above: Performed By: #### H DAWIT GEORGE3 ####[address] [place] [address] MCV 82.5 fL Normal 80.0-98.0 [facility] Comment on above: Performed By: #### DAWIT ALEXANDRA3 ####[address] [place] [address] Platelet mean volume (PMV) 7.1 fL Low 7.4-10.4 [facility] Comment on above: Performed By: #### DAWIT ALEXANDRA3 ####[address] [place] [address] Platelets 823 10*3/uL High 140-440 [facility] Comment on above: Result Comment: repe ated Performed By: #### H EMOBentley, BMP3 ####[address] [place] [address] WBC (Leukocytes) 16.9 10*3/uL High 3.6-10.7 [facility] Comment on above: Performed By: #### H EMOBentley BMP3 ####[address] [place] [address] Sed Rateon 05-22-2017 Sed Rate 64 mm/h High 0-10 [facility] Comment on above: Performed By: #### H DORIS LACT3, BMP3 ####[address] [place] [address] Basic Metabolic Panelon 04-29 Calcium 7.6 mg/dL Low 8.4-10.2 [facility] Comment on above: Performed By: #### ARINA WINN HEMOG ####[address] [place] [address] Glucose mass conc 140 mg/dL High 70-100 [facility] Comment on above: Performed By: #### ARINA WINN HEMOG ####[address] [place] [address] Urea nitrogen 6 mg/dL Low 7-20 [facility] Comment on above: Performed By: #### ARINA WINN HEMOG ####[address] [place] [address] Anion gap 6 mmol/L Normal [facility] Comment on above: Performed By: #### ARINA WINN HEMOG ####[address] [place] [address] CO2 20 mmol/L Low 22-30 [facility] Comment on above: Performed By: #### ARINA WINN, HEMOG ####[address] [place] [address] Creatinine 0.70 mg/dL Normal 0.52-1.25 [facility] Comment on above: Performed By: #### ARINA WINN HEMOG ####[address] [place] [address] eGFR (black) mL/min/{1.73_m2} Normal >60 [facility] Comment on above: Performed By: #### ARINA WINN, HEMOG ####[address] [place] [address] eGFR (non-black) mL/min/{1.73_m2} Normal >60 [facility] Comment on above: Result Comment: Sour ce- MDRD equation with creatinine calibration to IDMS(NKDEP)eGFR not recommended for drug dose adjustment Performed By: #### ARINA WINN, HEMOG ####[address] [place] [address] Potassium molar conc 3.5 mmol/L Normal 3.5-5.1 [facility] Comment on above: Performed By: #### ARINA WINN, HEMOG ####[address] [place] [address] Chloride 110 mmol/L High 98-107 [facility] Comment on above: Performed By: #### ARINA WINN, HEMOG ####[address] [place] [address] Sodium 137 mmol/L Normal 137-145 [facility] Comment on above: Performed By: #### ARINA WINN, HEMOG ####[address] [place] [address] CULTURE BLOODon 05-21-2017 CULTURE BLOOD Specimen Source Comment:Blood [facility] Patient name: BAUTISTA RUFFIN JigneshRGageN.: [id number] : 1960 Age: 57 Sex: M Ord. Physician: TRINA MAYER Location: [address] [place] [address] Copy to: TRINA MAYER Adm. Date: 05/19/17 MICROBIOLOGYORDER#: [id number] COLLECTED: 05/21/17 16:15SOURCE: Blood (Right -wrist) RECEIVED: 05/21/17 16:50 BUSTER Shoemaker N T S Sp ecimen Source Comment:BloodCULTURE BLOOD FINAL 05/26/17 17:0605/26/17No growth at 5 days. Normal [facility] Comment on above: Performed By: #### C /CANDE ####[address] [address] CULTURE BLOOD Specimen Source Comment:Blood [facility] Patient name: BAUTISTA RUFFINN.: [id number] : 1960 Age: 57 Sex: M Ord. Physician: TRINA MAYER Location: [address] [place] [address] Copy to: TRINA MAYER Adm. Date: 05/19/17 MICROBIOLOGYORDER#: [id number] COLLECTED: 05/21/17 15:00SOURCE: Blood (Left -antecub) RECEIVED: 05/21/17 15:36 BUSTER Mckee E N T S Sp ecimen Source Comment:BloodCULTURE BLOOD FINAL 05/26/17 17:No growth at 5 days. Normal [facility] Comment on above: Performed By: #### C /CANDE ####[address] [address] Hemogramon 05-21-2017 Erythrocyte distribution width Auto Ratio (RBC) 18.6 % High 11.5-14.5 [facility] Comment on above: Performed By: #### ARINA WINN HEMOG ####[address] [address] Erythrocytes (RBC) 3.22 10*6/uL Low 4.40-5.90 [facility] Comment on above: Performed By: #### ARINA WINN HEMOG ####[address] [place] [address] Hematocrit (HCT) 26.3 % Low 40.0-52.0 [facility] Comment on above: Performed By: #### ARINA WINN, HEMOG ####[address] [place] [address] Hemoglobin mass conc (Bld) 8.6 g/dL Low 13.0-18.0 [facility] Comment on above: Performed By: #### ARINA WINN, HEMOG ####[address] [place] [address] MCH 26.8 pg Normal 26.0-34.0 [facility] Comment on above: Performed By: #### ARINA WINN HEMOG ####[address] [place] [address] MCHC mass conc (RBC) 32.9 % Normal 32.0-36.0 [facility] Comment on above: Performed By: #### ARINA WINN HEMOG ####[address] [place] [address] MCV 81.6 fL Normal 80.0-98.0 [facility] Comment on above: Performed By: #### ARINA WINN HEMOG ####[address] [place] [address] Platelet mean volume (PMV) 7.0 fL Low 7.4-10.4 [facility] Comment on above: Performed By: #### ARINA WINN HEMOG ####[address] [place] [address] Platelets 736 10*3/uL High 140-440 [facility] Comment on above: Performed By: #### ARINA WINN, HEMOG ####[address] [place] [address] WBC (Leukocytes) 11.1 10*3/uL High 3.6-10.7 [facility] Comment on above: Performed By: #### ARINA WINN HEMOG ####[address] [place] [address] Vancomycin Troughon 05-21- 17 Vancomycin Trough 25.8 ug/mL High 5.0-10.0 [facility] Comment on above: Result Comment: . Performed By: #### B MP3ARINA, HEMOG ####[address] [place] [address] Basic Metabolic Panelon 12-2 Calcium 8.2 mg/dL Low 8.4-10.2 [facility] Comment on above: Performed By: #### H EMOG, LACT3, BMP3 ####[address] [place] [address] Glucose mass conc 92 mg/dL Normal 70-100 [facility] Comment on above: Performed By: #### H EMOG, LACT3, BMP3 ####[address] [place] [address] Urea nitrogen 8 mg/dL Normal 7-20 [facility] Comment on above: Performed By: #### H EMOG, LACT3, BMP3 ####[address] [place] [address] Anion gap 7 mmol/L Normal [facility] Comment on above: Performed By: #### H EMOG, LACT3, BMP3 ####[address] [place] [address] CO2 19 mmol/L Low 22-30 [facility] Comment on above: Performed By: #### H EMOG, LACT3, BMP3 ####[address] [place] [address] Creatinine 0.78 mg/dL Normal 0.52-1.25 [facility] Comment on above: Performed By: #### H EMOG, LACT3, BMP3 ####[address] [place] [address] eGFR (black) mL/min/{1.73_m2} Normal >60 [facility] Comment on above: Performed By: #### H EMOG, LACT3, BMP3 ####[address] [place] [address] eGFR (non-black) mL/min/{1.73_m2} Normal >60 [facility] Comment on above: Result Comment: Sour ce- MDRD equation with creatinine calibration to IDMS(NKDEP)eGFR not recommended for drug dose adjustment Performed By: #### H DORIS LACT3, BMP3 ####[address] [address] Potassium molar conc 3.6 mmol/L Normal 3.5-5.1 [facility] Comment on above: Performed By: #### H EMOBentley, LACT3, BMP3 ####[address] [place] [address] Chloride 113 mmol/L High 98-107 [facility] Comment on above: Performed By: #### H DORIS LACT3, BMP3 ####[address] [address] Sodium 139 mmol/L Normal 137-145 [facility] Comment on above: Performed By: #### H DORIS LACT3, BMP3 ####[address] [address] Hemogramon 05-20-2017 Erythrocyte distribution width Auto Ratio (RBC) 18.7 % High 11.5-14.5 [facility] Comment on above: Performed By: #### H DORIS, LACT3, BMP3 ####[address] [address] Erythrocytes (RBC) 3.38 10*6/uL Low 4.40-5.90 [facility] Comment on above: Performed By: #### H EMOBentley, LACT3, BMP3 ####[address] [place] [address] Hematocrit (HCT) 27.7 % Low 40.0-52.0 [facility] Comment on above: Performed By: #### H EMOBentley, LACT3, BMP3 ####[address] [address] Hemoglobin mass conc (Bld) 9.2 g/dL Low 13.0-18.0 [facility] Comment on above: Performed By: #### H EMOBentley, LACT3, BMP3 ####[address] [address] MCH 27.3 pg Normal 26.0-34.0 [facility] Comment on above: Performed By: #### H EMOG, LACT3, BMP3 ####[address] [address] MCHC mass conc (RBC) 33.3 % Normal 32.0-36.0 [facility] Comment on above: Performed By: #### H EMOBentley, LACT3, BMP3 ####[address] [place] [address] MCV 82.1 fL Normal 80.0-98.0 [facility] Comment on above: Performed By: #### H EMOBentley, LACT3, BMP3 ####[address] [address] Platelet mean volume (PMV) 7.0 fL Low 7.4-10.4 [facility] Comment on above: Performed By: #### H EMOBentley, LACT3, BMP3 ####[address] [address] Platelets 749 10*3/uL High 140-440 [facility] Comment on above: Performed By: #### H EMOBentley, LACT3, BMP3 ####[address] [address] WBC (Leukocytes) 15.6 10*3/uL High 3.6-10.7 [facility] Comment on above: Performed By: #### H EMOBentley, LACT3, BMP3 ####[address] [address] Lactic Acidon 05-20-2017 Lactate 0.6 mmol/L Low 0.7-2.0 [facility] Comment on above: Performed By: #### H EMOG, LACT3, BMP3 ####[address] [address] VANC TROUGHon 04-08-2017 VANC TROUGH 14.4 MCG/ML Low 15.0-20.0 [facility] Comment on above: Performed By: #### L 520.27590 ####[facility] [id number] [place], [place] [address]Sr# [phone] BMPon 04-03-2017 Anion gap 9 mmol/L Normal 5-16 [facility] Comment on above: Performed By: #### L 500.94372, L500.64074, L520.79159 ####[facility] [id number] [place], [place] [address]Mv# [phone] BUN/Creatinine Ratio 23 mg/mg Normal 15-24 [facility] Comment on above: Performed By: #### L 500.01644, L500.02474, L520.03593 ####[facility] [id number] [place], [place] [address]Nk# [phone] Calcium 8.6 mg/dL Normal 8.5-10.1 [facility] Comment on above: Performed By: #### L 500.80368, L500.90988, L520.17096 ####[facility] [id number] [place], [place] [address]Md# [phone] Chloride 103 mmol/L Normal 98-107 [facility] Comment on above: Performed By: #### L 500.05073, L500.33895, L520.49665 ####[facility] [id number] [place], [place] [address]Rl# [phone] CO2 26 mmol/L Normal 21-32 [facility] Comment on above: Performed By: #### L 500.56966, L500.83759, L520.01518 ####[facility] [id number] [place], [place] [address]Ea# [phone] Creatinine 1.370 mg/dL High 0.670-1.17 0 [facility] Comment on above: Result Comment: Noni ents receiving either N-Acetylcysteine (NAC) orMetamizole prior to venipuncture, may have falsely depressedresults. Performed By: #### L 500.89607, L500.14220, L520.89030 ####[facility] [id number] [place], [place] [address]Pg# [phone] Glucose mass conc 95 mg/dL Normal 70-100 [facility] Comment on above: Result Comment: 70-1 00-Normal Fasting; [phone]-[id number] Fasting; greaterthan 126 on more than one result-Diabetes. ADA guidelines Performed By: #### L 500.93736, L500.17249, L520.53702 ####[facility] [id number] [place], [place] [address]Ok# [phone] Potassium molar conc 4.5 mmol/L Normal 3.5-5.1 [facility] Comment on above: Performed By: #### L 500.88600, L500.11661, L520.27289 ####[facility] [id number] [place], [place] [address]Jv# [phone] Sodium 138 mmol/L Normal 136-145 [facility] Comment on above: Performed By: #### L 500.51539, L500.47269, L520.71123 ####[facility] [id number] [place], [place] [address]Fe# [phone] Urea nitrogen 31 mg/dL High 7-26 [facility] Comment on above: Performed By: #### L 500.19265, L500.18537, L520.62280 ####[facility] [id number] [place], [place] [address]Bn# [phone] GFR ESTon 04-03-2017 IF AMER Greater than [address] [facility] Comment on above: Performed By: #### L 500.29790, L500.07056, L520.45782 ####[facility] [id number] [place], [place] [address]Oq# [phone] IF non-AFR AMER 54 ML/MIN Normal [facility] Comment on above: Performed By: #### L 500.44490, L500.81710, L520.49282 ####[facility] [id number] [place], [place] [address]Bn# [phone] on 04-03-2017 Hematocrit (HCT) 32.7 % Low 41.0-53.0 [facility] Comment on above: Performed By: #### L 200.86430 ####[facility] [id number] [place], [place] [address]On# [phone] Hemoglobin mass conc (Bld) 10.3 g/dL Low 13.5-17.5 [facility] Comment on above: Performed By: #### L 200.68781 ####[facility] [id number] [place] [address]Cp# [phone] VANC TROUGHon 04-03-2017 VANC TROUGH 14.7 MCG/ML Low 15.0-20.0 [facility] Comment on above: Performed By: #### L 500.37396, L500.94792, L520.50963 ####[address] [address]Ao# [phone] on 03-29-2017 Hematocrit (HCT) 30.1 % Low 41.0-53.0 [facility] Comment on above: Performed By: #### L 200.45906 ####[address] [address]Ns# [phone] Hemoglobin mass conc (Bld) 9.4 g/dL Low 13.5-17.5 [facility] Comment on above: Performed By: #### L 200.97520 ####[facility] [id number] [place] [address]Wh# [phone] VANC TROUGHon 03-28-2017 VANC TROUGH 20.7 MCG/ML Critically high 15.0-20.0 [facility] Comment on above: Result Comment: Crit ical Result(s) Called at: 22:55:07 on 03/27/2017 by:Vanessa Bianchi to and read back by: Rica LR [facility] Performed By: #### L 520.04146 ####[facility] [id number] [place] [address]Ce# [phone] VANC TROUGHon 03-23-2017 VANC TROUGH 25.3 MCG/ML Critically high 15.0-20.0 [facility] Comment on above: Result Comment: Eric jarquin Result(s) Called at: 12:22:05 on 03/23/2017 by:Piedad Thomas to and read back by: BLANCHE HILLMAN RN Performed By: #### L 520.15082 ####[facility] [id number] [place], [place] [address]Kw# [phone] Influenza virus A and B and SARS-CoV-2 (COVID-19) Ag panel - Upper respiratory specim SARS-CoV-2 (COVID-19) RNA ZEKE+probe Ql (Resp) [facility] Work Phone: Vital Signs Date Time Vital Sign Value Performing Clinician Samir walker 11-05-2024 18:30-0400 Body temperature 98.1 [degF] [facility] 11-05-2024 18:30-0400 Diastolic blood pressure 87 mm[Hg] [facility] 11-05-2024 18:30-0400 Heart rate 85 /min [facility] 11-05-2024 18:30-0400 Respiratory rate 16 /min [facility] 11-05-2024 18:30-0400 SaO2% (BldA) [Mass fraction] 94 % [facility] 11-05-2024 18:30-0400 Systolic blood pressure 135 mm[Hg] [facility] 11-05-2024 01:09-0400 Body mass index (BMI) [Ratio] 24.8 kg/m2 [facility] 11-05-2024 01:09-0400 Body weight 76.3 kg [facility] 11-04-2024 12:22-0400 Body height 175.26 cm [facility] 11-03-2024 16:54-0400 Body temperature 97.8 [degF] [facility] 11-03-2024 16:54-0400 Diastolic blood pressure 85 mm[Hg] [facility] 11-03-2024 16:54-0400 Heart rate 77 /min [facility] 11-03-2024 16:54-0400 Respiratory rate 16 /min [facility] 11-03-2024 16:54-0400 SaO2% (BldA) [Mass fraction] 98 % [facility] 11-03-2024 16:54-0400 Systolic blood pressure 142 mm[Hg] [facility] 11-03-2024 11:28-0400 Body height 172.72 cm [facility] 11-03-2024 11:28-0400 Body mass index (BMI) [Ratio] 27.7 kg/m2 [facility] 11-03-2024 11:28-0400 Body weight 82.8 kg [facility] 11-01-2024 18:00-0400 Diastolic blood pressure 84 mm[Hg] [facility] 11-01-2024 18:00-0400 Heart rate 82 /min [facility] 11-01-2024 18:00-0400 Respiratory rate 16 /min [facility] 11-01-2024 18:00-0400 SaO2% (BldA) [Mass fraction] 96 % [facility] 11-01-2024 18:00-0400 Systolic blood pressure 132 mm[Hg] [facility] 11-01-2024 16:30-0400 Body temperature 98.3 [degF] [facility] 11-01-2024 14:11-0400 Body height 172.72 cm [facility] 11-01-2024 14:11-0400 Body mass index (BMI) [Ratio] 27.6 kg/m2 [facility] 11-01-2024 14:11-0400 Body weight 82.3 kg [facility] 09-12-2024 13:04-0400 Body temperature 97.8 [degF] [facility] 09-12-2024 13:04-0400 Diastolic blood pressure 85 mm[Hg] [facility] 09-12-2024 13:04-0400 Heart rate 75 /min [facility] 09-12-2024 13:04-0400 Respiratory rate 16 /min [facility] 09-12-2024 13:04-0400 SaO2% (BldA) [Mass fraction] 97 % [facility] 09-12-2024 13:04-0400 Systolic blood pressure 149 mm[Hg] [facility] 09-11-2024 15:37-0400 Body height 175.01 cm [facility] 09-11-2024 15:37-0400 Body mass index (BMI) [Ratio] 27.8 kg/m2 [facility] 09-11-2024 15:37-0400 Body weight 85.41 kg [facility] 07-14-2024 12:00-0500 Body temperature 97.6 [degF] [facility] 07-14-2024 12:00-0500 Diastolic blood pressure 86 mm[Hg] [facility] 07-14-2024 12:00-0500 Heart rate 82 /min [facility] 07-14-2024 12:00-0500 Respiratory rate 17 /min [facility] 07-14-2024 12:00-0500 SaO2% (BldA) [Mass fraction] 94 % [facility] 07-14-2024 12:00-0500 Systolic blood pressure 139 mm[Hg] [facility] 07-14-2024 07:06-0500 Body mass index (BMI) [Ratio] 28.3 kg/m2 [facility] 07-14-2024 07:06-0500 Body weight 87.2 kg [facility] 07-13-2024 07:00-0500 Diastolic blood pressure 101 mm[Hg] [facility] 07-13-2024 07:00-0500 Heart rate 83 /min [facility] 07-13-2024 07:00-0500 Respiratory rate 18 /min [facility] 07-13-2024 07:00-0500 SaO2% (BldA) [Mass fraction] 99 % [facility] 07-13-2024 07:00-0500 Systolic blood pressure 176 mm[Hg] [facility] 07-13-2024 06:40-0500 Body temperature 97.8 [degF] [facility] 07-13-2024 02:28-0500 Body mass index (BMI) [Ratio] 26.6 kg/m2 [facility] 07-13-2024 02:28-0500 Body weight 81.8 kg [facility] 06-19-2024 15:07-0500 Body temperature 98.3 [degF] [facility] 06-19-2024 15:07-0500 Diastolic blood pressure 92 mm[Hg] [facility] 06-19-2024 15:07-0500 Heart rate 88 /min [facility] 06-19-2024 15:07-0500 Respiratory rate 18 /min [facility] 06-19-2024 15:07-0500 SaO2% (BldA) [Mass fraction] 98 % [facility] 06-19-2024 15:07-0500 Systolic blood pressure 138 mm[Hg] [facility] 06-19-2024 05:37-0500 Body mass index (BMI) [Ratio] 25.4 kg/m2 [facility] 06-19-2024 05:37-0500 Body weight 78.1 kg [facility] 06-14-2024 21:55-0500 Body temperature 98.1 [degF] [facility] 06-14-2024 21:55-0500 Diastolic blood pressure 76 mm[Hg] [facility] 06-14-2024 21:55-0500 Heart rate 90 /min [facility] 06-14-2024 21:55-0500 Respiratory rate 16 /min [facility] 06-14-2024 21:55-0500 SaO2% (BldA) [Mass fraction] 98 % [facility] 06-14-2024 21:55-0500 Systolic blood pressure 155 mm[Hg] [facility] 06-12-2024 14:34-0500 Body weight 95.5 kg [facility] 06-11-2024 23:14-0500 Body mass index (BMI) [Ratio] 31.1 kg/m2 [facility] 10-09-2023 05:00-0400 Body temperature 97.5 [degF] [facility] 10-09-2023 05:00-0400 Diastolic blood pressure 91 mm[Hg] [facility] 10-09-2023 05:00-0400 Heart rate 95 /min [facility] 10-09-2023 05:00-0400 Respiratory rate 16 /min [facility] 10-09-2023 05:00-0400 SaO2% (BldA) [Mass fraction] 97 % [facility] 10-09-2023 05:00-0400 Systolic blood pressure 128 mm[Hg] [facility] 10-09-2023 01:12-0400 Body height 175.26 cm [facility] 06-07-2022 00:00-0500 Diastolic blood pressure 78 mm[Hg] [facility] Work Phone: 06-07-2022 00:00-0500 Heart rate 81 /min [facility] Work Phone: 06-07-2022 00:00-0500 Respiratory rate 14 /min [facility] Work Phone: 06-07-2022 00:00-0500 SaO2% (BldA) [Mass fraction] 97 % [facility] Work Phone: 06-07-2022 00:00-0500 Systolic blood pressure 119 mm[Hg] [facility] Work Phone: 06-06-2022 16:16-0500 Body height 170.18 cm [facility] Work Phone: 06-06-2022 16:16-0500 Body mass index (BMI) [Ratio] 26.6 kg/m2 [facility] Work Phone: 06-06-2022 16:16-0500 Body temperature 97.5 [degF] [facility] Work Phone: 06-06-2022 16:16-0500 Body weight 77.3 kg [facility] Work Phone: 05-22-2022 21:09-0500 Diastolic blood pressure 93 mm[Hg] [facility] Work Phone: 05-22-2022 21:09-0500 Heart rate 121 /min [facility] Work Phone: 05-22-2022 21:09-0500 Respiratory rate 30 /min [facility] Work Phone: 05-22-2022 21:09-0500 SaO2% (BldA) [Mass fraction] 96 % [facility] Work Phone: 05-22-2022 21:09-0500 Systolic blood pressure 143 mm[Hg] [facility] Work Phone: 05-22-2022 20:08-0500 Body temperature 97.6 [degF] [facility] Work Phone: 05-22-2022 16:40-0500 Body height 175.26 cm [facility] Work Phone: 05-22-2022 16:40-0500 Body mass index (BMI) [Ratio] 26.2 kg/m2 [facility] Work Phone: 05-22-2022 16:40-0500 Body weight 80.5 kg [facility] Work Phone: 09-09-2021 17:43-0400 Diastolic blood pressure 100 mm[Hg] [facility] Work Phone: 09-09-2021 17:43-0400 Heart rate 70 /min [facility] Work Phone: 09-09-2021 17:43-0400 Respiratory rate 16 /min [facility] Work Phone: 09-09-2021 17:43-0400 SaO2% (BldA) [Mass fraction] 97 % [facility] Work Phone: 09-09-2021 17:43-0400 Systolic blood pressure 122 mm[Hg] [facility] Work Phone: 09-09-2021 15:23-0400 Body temperature 97.6 [degF] [facility] Work Phone: 09-09-2021 15:20-0400 Body height 172.72 cm [facility] Work Phone: 09-09-2021 15:20-0400 Body mass index (BMI) [Ratio] 26.6 kg/m2 [facility] Work Phone: 09-09-2021 15:20-0400 Body weight 79.6 kg [facility] Work Phone: 06-29-2021 10:00-0500 Heart rate 112 /min [facility] Work Phone: 06-29-2021 08:38-0500 Body temperature 98 [degF] [facility] Work Phone: 06-29-2021 08:38-0500 Diastolic blood pressure 93 mm[Hg] [facility] Work Phone: 06-29-2021 08:38-0500 Respiratory rate 16 /min [facility] Work Phone: 06-29-2021 08:38-0500 SaO2% (BldA) [Mass fraction] 98 % [facility] Work Phone: 06-29-2021 08:38-0500 Systolic blood pressure 122 mm[Hg] [facility] Work Phone: 06-29-2021 05:00-0500 Body weight 74 kg [facility] Work Phone: 06-28-2021 02:52-0500 Body mass index (BMI) [Ratio] 23.9 kg/m2 [facility] Work Phone: Encounters Encounter Date Encounter Type Care Provider Facility Start: 11-05-2024 Non-patient / Non-visit Dr. Adan cohen [facility] Work Phone: Start: 11-04-2024 ambulatory Adan Schneider Facility:[facility] Start: 11-04-2024 End: 11-05-2024 Evaluation and management of inpatient Dr. Adan Schneider DO [facility] Work Phone: Start: 11-04-2024 Non-patient / Non-visit Dr. Adan cohen [facility] Work Phone: Start: 11-03-2024 Non-patient / Non-visit Dr. Milady Tilley DO [facility] Work Phone: Start: 11-03-2024 ambulatory Milady Tilley Facility:[facility] Start: 11-03-2024 Evaluation and management of [facility] Start: 11-03-2024 observation encounter [facility] Work Phone: Start: 11-01-2024 End: 11-01-2024 [facility] Start: 09-11-2024 End: 09-12-2024 [facility] Start: 07-14-2024 End: 07-14-2024 Emergency department patient visit Dr. Rico Moore DO -Emergency Department Work Phone: Start: 07-13-2024 End: 07-13-2024 Emergency department patient visit Richie Borden DO -Emergency Department Work Phone: Start: 06-19-2024 Non-patient / Non-visit Dr. Darian Arceo MD [facility] Work Phone: Start: 06-18-2024 Non-patient / Non-visit Dr. Darian Arceo MD [facility] Work Phone: Start: 06-17-2024 Non-patient / Non-visit Dr. Darian Arceo MD [facility] Work Phone: Start: 06-16-2024 ambulatory Ronak Rueda ty:[facility] Start: 06-16-2024 End: 06-19-2024 Evaluation and management of inpatient Dr. Darian Arceo MD -[facility] Work Phone: Start: 06-14-2024 Non-patient / Non-visit Dr. Darian Arceo MD [facility] Work Phone: Start: 06-13-2024 Non-patient / Non-visit Dr. Darian Arceo MD -[facility] Work Phone: Start: 06-12-2024 Non-patient / Non-visit Dr. Darian Arceo MD [facility] Work Phone: Start: 06-11-2024 ambulatory Ronak Rueda ty:[facility] Start: 06-11-2024 End: 06-14-2024 Evaluation and management of inpatient Dr. Darian Arceo MD -[facility] Work Phone: Start: 05-06-2024 End: 05-10-2024 Telephone encounter Hetal Gallegos MD Work Phone: [facility] Start: 05-03-2024 Emergency department patient visit JAMEY HUYNH Facility:[facility] Start: 05-03-2024 End: 05-03-2024 Emergency department patient visit Hema ChamberlainIvis Facility:[facility] Start: 10-09-2023 End: 10-09-2023 Emergency department patient visit [facility] Work Phone: Start: 06-06-2022 End: 06-07-2022 Emergency department patient visit [facility] Start: 05-22-2022 End: 05-22-2022 Emergency department patient visit [facility] Start: 09-09-2021 End: 09-09-2021 Emergency department patient visit [facility] Start: 06-29-2021 Non-patient / Non-visit [facility] Start: 06-29-2021 Non-patient / Non-visit [facility] Start: 06-28-2021 Non-patient / Non-visit [facility] Start: 06-28-2021 End: 06-29-2021 Evaluation and management of inpatient [facility]-Progressive Care [facility] Start: 05-19-2017 Evaluation and management of inpatient UNKNOWN PROVIDER [facility] Start: 04-08-2017 Ambulatory [facility] Start: 04-03-2017 [facility] Start: 03-29-2017 [facility] Start: 03-27-2017 [facility] Start: 03-23-2017 [facility] Procedures Date Procedure Procedure Detail Performing Clinician Start: 11-04-2024 Estimated creatinine clearance [facility] Start: 11-04-2024 Serum inorganic phos phate measurement [facility] Start: 11-03-2024 Plain chest X-ray [facility] Start: 11-03-2024 Estimated creatinine clearance [facility] Start: 11-03-2024 Computed tomography of abdomen and pelvis with intravenous contrast [facility] Start: 11-01-2024 Urnls dip stick/tabl et reagent auto microscopy [facility] Start: 11-01-2024 [facility] Start: 09-11-2024 Urnls dip stick/tabl et reagent auto microscopy [facility] Start: 09-11-2024 CT of pelvis with contrast [facility] Start: 09-11-2024 Estimated creatinine clearance [facility] Start: 09-11-2024 Blood culture [facility] Start: 09-11-2024 Gram stain microscopy [facility] Start: 09-11-2024 End: 09-11-2024 Microbial culture, routine [facility] Start: 09-11-[facility]24 [facility] Start: 07-14-2024 Urnls dip stick/tabl et reagent auto microscopy [facility] Start: 07-14-2024 Estimated creatinine clearance [facility] Start: 07-14-2024 Measurement of renal function [facility] Comment on above: GFR Calc Start: 07-14-2024 Plain chest X-ray [facility] Start: 07-13-2024 SARS-CoV-2, Influenz a & RSV (PCR) [facility] Start: 07-13-2024 CT angiography of ch est with contrast [facility] Start: 07-13-2024 Plain chest X-ray [facility] Start: 07-13-2024 D-dimer assay, quantitative [facility] Comment on above: D-Dimer ELEVATED (>0 .49): Additional studies and clinicalassessments are indicated to conclude diagnosis of:Deep Vein Thrombosis (DVT) or Pulmonary Embolism (PE)CRITICAL VALUE CALLED TO [facility]07/13/24 0417 Graham Osorio.RESULTS READ BACK BY SAME. Start: 07-13-2024 Estimated creatinine clearance [facility] Start: 07-13-2024 Measurement of renal function [facility] Comment on above: GFR Calc Start: 06-16-2024 Plain chest X-ray [facility] Start: 06-16-2024 CT of head without contrast [facility] Start: 06-16-2024 [facility] Start: 06-16-[facility] Start: 06-11-2024 CT of chest without contrast [facility] Start: 06-11-2024 Plain chest X-ray [facility] Start: 06-11-2024 Plain x-ray of pelvi s and lower extremity [facility] Start: 06-11-2024 [facility] Start: 06-11-2024 Legionella pneumophi la antigen assay [facility] Start: 06-11-2024 SARS-CoV-2, Influenz a & RSV (PCR) [facility] Start: 06-11-2024 Streptococcus pneumo niae antigen assay [facility] Start: 06-11-2024 [facility] Start: 10-09-2023 Plain chest X-ray Start: 06-06-2022 Plain chest X-ray Start: 05-22-2022 CT of abdomen and pe lvis without contrast Start: 05-22-2022 Plain chest X-ray Start: 06-28-2021 History of placement of stent for coronary artery disease History of coronary artery stent placement Dr. Darian Arceo MD Comment on above: [id number] LAD w/ 3.0 a 18 mm Avery Montelongo MR Stent 06/28/21 Start: 06-28-2021 [facility] SARS-CoV-2 & FLU Ant igen (Rapid) Plan of Treatment Date Care Activity Detail Author Start: 05-03-2027 Diabetes Screening Diabetes Screenin g [facility] Start: 11-05-2024 Patient discharge [facility] Start: 11-05-2024 Wound care [facility] Start: 11-04-[address] [facility] Start: 11-03-2024 End: 11-03-2024 Consultation for treatment [facility] Start: 11-03-2024 Following clinical pathway protocol [facility] Start: 11-03-2024 Assessment of risk o f venous thromboembolism [facility] Start: 11-03-2024 Consultation [facility] Start: 11-03-2024 Inhalation therapy procedure [facility] Start: 11-03-2024 Insertion of cathete r into peripheral vein [facility] Start: 11-03-2024 Measuring intake and output [facility] Start: 11-03-2024 Oxygen therapy [facility] Start: 11-03-2024 Patient referral to dietitian [facility] Start: 11-03-2024 Providing care accor ding to standard [facility] Start: 11-03-2024 Provision of activit y privileges [facility] Start: 11-03-2024 Referral to occupati onal therapist [facility] Start: 11-03-[address] [facility] Start: 11-03-2024 [facility] Start: 11-03-2024 Verification routine [facility] Start: 11-03-2024 Hospital admission, emergency, from emergency room, medical nature [facility] Start: 11-03-[address] [facility] Start: 11-03-2024 [facility] Start: 11-03-2024 Patient referral to dietitian [facility] Start: 11-01-2024 [facility] Start: 11-01-2024 [facility] Start: 11-01-2024 Bacteria identified in Urine by Culture Urine Culture [facility] Start: 11-01-2024 Urine culture [facility] Start: 09-11-2024 End: 09-11-2024 [facility] Start: 09-11-2024 Bacteria identified in Blood by Culture Blood Culture [facility] Start: 09-11-2024 Microbial culture, routine Wound Culture [facility] Start: 09-11-2024 Microscopic observat ion [Identifier] in Unspecified specimen by Gram stain [facility] Start: 09-11-2024 Urine culture Urine Culture [facility] Start: 07-14-2024 [facility] Start: 07-13-2024 [facility] Start: 06-19-2024 Patient discharge [facility] Start: 06-18-[address] [facility] Start: 06-18-2024 Wound care [facility] Start: 06-17-2024 Consultation for treatment [facility] Start: 06-16-2024 Following clinical pathway protocol [facility] Start: 06-16-2024 Assessment of risk o f venous thromboembolism [facility] Start: 06-16-2024 Incentive spirometry [facility] Start: 06-16-2024 Insertion of cathete r into peripheral vein [facility] Start: 06-16-2024 Measuring intake and output [facility] Start: 06-16-2024 Providing care accor ding to standard [facility] Start: 06-16-2024 Referral to occupati onal therapist [facility] Start: 06-16-[address] [facility] Start: 06-16-2024 Tobacco use cessatio n education [facility] Start: 06-16-2024 [facility] Start: 06-16-[address] [facility] Start: 06-16-2024 Patient referral to dietitian [facility] Start: 06-14-[address] [facility] Start: 06-14-2024 Consultation [facility] Start: 06-14-2024 Patient discharge [facility] Start: 06-13-2024 Care planning and pr oblem solving actions [facility] Start: 06-12-2024 Wound care [facility] Start: 06-12-[address] [facility] Start: 06-12-2024 Referral to occupati onal therapist [facility] Start: 06-11-2024 Consultation for treatment [facility] Start: 06-11-2024 [facility] Start: 06-11-2024 Following clinical pathway protocol [facility] Start: 06-11-[address] [facility] Start: 06-11-2024 Patient referral to dietitian [facility] Start: 06-03-2024 End: 06-03-2024 Patient encounter procedure 06/03/2024 1:30 PM EST Office Visit [facility] [address] [place] [address] Hetal Gallegos MD [address] [address] er f/u R hip/pt will call to get referral [facility] Comment on above: er f/u R hip/pt will call to get referral Start: 01-28-2024 Covid-19 Vaccine ( season) Covid-19 Vaccine ( season) [facility] Start: 01-28-2024 Influenza vaccination Influenz a Vaccine (#1) [facility] Start: 10-09-2023 [facility] Start: 10-09-2023 [facility] Start: 06-06-2022 [facility] Work Phone: Start: 05-22-2022 [facility] Work Phone: Start: 2021 RSV Vaccine (1 - Ris k 60-74 years 1-dose series) RSV Vaccine (1 - Risk 60-74 years 1-dose series) [facility] Start: 02-29-2016 Prostate specific an tigen measurement Prostate Cancer Screening Discussion [facility] Start: 2011 Shingrix Vaccine (1 of 2) Blanco grix Vaccine (1 of 2) [facility] Start: 2006 Screening for malign ant neoplasm of colon [facility] Start: 02-29-1996 Lipid panel Lipid Screening [facility] Start: 02-29-1980 Urine microalbumin profile DTaP,Tdap,Td Vaccine (1 - Tdap) [facility] Start: 1979 Anxiety Screening Anxiety Screening [facility] Start: 1979 Depression Screening Depression Scre ening [facility] Start: 1979 Hepatitis C screening Hepatitis C Sc reening [facility] Start: 1979 HIV screening HIV Screening [facility] Bacteria identified in Urine by Culture Urine Culture [facility] Work Phone: Patient Education [facility] Work Phone: Patient referral [facility] Work Phone: Immunizations Immunization Date Immunization Notes Care Provider Darryl babin 03-30-2023 influenza virus vaccine, unspecified formulation Hetal Gallegos MD Work Phone: [facility] 03-03-2021 Covid (Pfizer) [facility] 03-03-2021 Influenza virus vaccine [facility] 07-24-2020 Covid (Pfizer) [facility] 07-07-2020 Covid (Pfizer) [facility] 02-26-2018 Influenza virus vaccine [facility] 02-27-2017 Influenza virus vaccine [facility] 02-23-2016 Influenza virus vaccine [facility] 03-17-2015 influenza, injectabl e, quadrivalent, preservative free [facility] 03-17-2015 influenza, seasonal, injectable [facility] Work Phone: 04-29-2013 Influenza virus vaccine [facility] 2012 Pneumococcal Vaccine [facility] Work Phone: 2012 pneumococcal vaccine , unspecified formulation [facility] Payers Date Payer Category Payer Medicare [id number] 2024 Self-pay [id number] 2024 Unknown [id number] 2016 Medicare [id number] 2015 Unknown [id number] Medicare [id number] Private Health Insurance [facility] [id number] Unknown Unknown [id number] 2.16.8 [id number] Unknown [id number] 2.16.8 [id number] Unknown [id number] 2.16.8 [id number] Unknown [id number] 2.16.8 [id number] Unknown [id number] 2.16.8 [id number] Unknown [id number] 2.16.8 [id number] Unknown [id number] 2.16.8 [id number] Unknown [id number] 2.16.8 [id number] Unknown [id number] 2.16.8 [id number] Unknown [id number] 2.16.8 [id number] Unknown [id number] 2.16.8 [id number] Unknown [id number] 2.16.8 [id number] Unknown [id number] 2.16.8 [id number] Unknown [id number] 2.16.8 [id number] Unknown [id number] 2.16.8 [id number] Unknown [id number] 2.16.8 [id number] Unknown [id number] 2.16.8 [id number] Unknown [id number] 2.16.8 [id number] Unknown [id number] 2.16.8 [id number] Social History Date Type Detail Facility Start: 09-09-2021 End: 10-09-2023 Tobacco smoking status CTIS Unknown if ever smoked [facility] Start: 06-27-2021 Heavy [facility] Start: 01-19-2019 None [facility] Start: 01-19-2019 Spouse/ Signif icant Other [facility] Start: 06-27-2021 Cigarettes [facility] Start: 1960 Sex Assigned At Male W [facility] Start: 01-21-2016 Tobacco smoking stat us CTIS Smokes tobacco daily [facility] Start: 05-03-2024 Alcoholic beverage intake Current non-drinker of alcohol (finding) [facility] Start: 05-03-2024 End: 05-04-2024 History of Social function [facility] Start: 05-03-2024 End: 05-04-2024 Tobacco use panel [facility] National Score (1-100), lower number is lower risk 80 [facility] Start: 1960 Sex assigned at Not on file [facility] Start: 09-11-2024 End: 11-04-2024 Tobacco smoking status NHIS Ex-smoker (finding) [facility] Start: 09-12-2024 Sex Male (finding) [facility] Medical Equipment Procedure Code Equipment Code Equipment Origin al Text Equipment Identifier Dates ([id number]) Drug-eluting coronary artery stent, bioabsorbable-polyme r-coated ([id number] FDA Start: 06-29-2021 Goals Date Patient Goal Desired Activity /State Functional Status Date Assessment Result Facility 11-05-2024 Functional status Bedrest [facility] Work Phone: 06-19-2024 Functional status Bedrest [facility] Work Phone: 06-14-2024 Functional status Bedrest [facility] Work Phone: 06-29-2021 Functional status Activity Abili ty With Assist of 2;Bedrest [facility] Work Phone: Mental Status Date Assessment Result Facility 11-05-2024 Cognitive function Voice/Name [facility] Work Phone: 11-03-2024 Cognitive function Level Of Cons ciousness Awake;Alert;Appropriate;Follow s Commands [facility] Work Phone: 07-14-2024 Cognitive function Level Of Cons ciousness Awake;Alert;Appropriate;Follow s Commands [facility] Work Phone: 07-13-2024 Cognitive function Voice/Name [facility] Work Phone: 06-19-2024 Cognitive function Voice/Name [facility] Work Phone: 06-14-2024 Cognitive function Voice/Name [facility] Work Phone: 10-09-2023 Cognitive function Level Of Cons ciousness Awake;Alert;Appropriate [facility] Work Phone: 06-06-2022 Cognitive function Awake;Alert;Disoriente d [facility] Work Phone: 06-29-2021 Cognitive function Voice/Name [facility] Work Phone: 06-28-2021 Cognitive function Patient Orien tation Person;Place;Time [facility] Work Phone: Clinical Notes 05-06-2024 to 11-05-2024 Note Date & Type Note Facility 11-05-2024 Discharge summary Note Date/Time November 05, 2024 3:19pm [facility] Medical Records Department [address] [place] [address] Discharge Summary 11/05/24 1514 MR#: [id number] Acct: [id number] Name: BAUTISTA RUFFIN Rep #:[id number] : 1960 64 From: Adan Schneider DO PCP: [facility] Status:ADM IN Location: [facility] [id number] Providers Date of Admission: 11/04/24 Primary Care Physician: [facility] Consultations 11/03/24 17:38 Consult: Infectious Disease Routine Consulting Provider: Maulik Jenkins Reason for Consult: Complicated UTI EMERGENT Consult: No MD Notified: Yes Date Notified: 11/04/24 Time Notified: 07:42 Method of Notification: Text Consult: Onc/Wound/staff research associate Routine Comment: 11/03/24 18:25 Consult: Onc/Wound/staff research associate Routine Comment: Reason For Visit: COMPLICATED PSEUDOMONAS AERUGINOSA Diagnosis Discharge Diagnosis (1) Acute UTI: Status: Acute Code(s): N39.0 - Urinary tract infection, site not specified Plan: Pseudomonas CAUTI. Catheter changed in ED on 11/01 Fluoroquinolone resistant. On cefepime ID has seen patient and ordered 5-days of cefepime for discharge. PICC placed. Plan Debility: chronic. At baseline due to the paraplegia. Chronic conditions: * sacral ulcerations Vitamin C and Zn. Follow up with Dr. Masterson. * CAD: stable. 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 Complicates care and recovery. VTE prophylaixs:LMWH disposition: To home with home care. To continue with IV antibiotics. Case management was able to discuss with patient's ex-, doing the lives with, andapparently she will be involved in the IV antibiotics to help. Medications at Discharge Home Medications baclofen 20 mg tablet 20 mg PO 4X/DAY muscle spasms 02/26/13 multivitamin with folic acid 400 mcg tablet (Thera) 1 tab PO LUNCH supplemeny 02/26/13 nortriptyline 50 mg capsule 100 mg PO QHS anxiety 01/19/19 ascorbic acid (vitamin C) 1,000 mg tablet (Vitamin C) 1 g PO DAILY Check with primary doctor 06/28/21 cholecalciferol (vitamin D3) 50 mcg (2,000 unit) capsule (Vitamin D3) 50 mcg PO DAILY Check with primary doctor 06/28/21 docusate sodium 100 mg capsule 100 mg PO BID Check with primary doctor 06/28/21 loratadine 10 mg capsule 10 mg PO DAILY Check with primary doctor 06/28/21 venlafaxine 75 mg tablet 150 mg PO DAILY Check with primary doctor 06/28/21 aspirin 81 mg tablet,delayed release 81 mg PO BREAKFAST heart health 30 days #30tabs 06/29/21 carvedilol 6.25 mg tablet 6.25 mg PO BID heart 30 days #60 tabs 06/29/21 ondansetron 4 mg disintegrating tablet 4 mg PO Q8H PRN nausea and vomiting #10 tabs 06/06/22 rosuvastatin 10 mg tablet (Crestor) 20 mg PO DAILY 06/16/24 buprenorphine 20 mcg/hour weekly transdermal patch 1 patch transdermal Q7D 09/11/24 acetaminophen 325 mg tablet (Tylenol) 650 mg PO BID PRN 11/03/24 doxycycline monohydrate 100 mg capsule 100 mg PO BID 11/03/24 ibuprofen 600 mg tablet (IBU) 600 mg PO 4X/DAY PRN 11/03/24 lidocaine 5 % topical patch 2 patch topical DAILY 11/03/24 oxycodone-acetaminophen 5 mg-325 mg tablet 1 tab PO Q6H pain 11/03/24 pregabalin 150 mg capsule (Lyrica) 150 mg PO TID 11/03/24 cefepime 2 gram solution for injection 2 g IV Q8 5 days #16 ea 11/04/24 Hospital Course Operations None Procedures None Summary of Care Provided Minutes Spent on Discharge: 32 Hospital Course: Patient presented emergency room on the sixth and was sent to have urinary checkinfection and was discharged with levofloxacin. Came back showing Pseudomonas that was resistant patient was sent back to the hospital. Patient started on cefepime and patient disease was consulted. The patient had a PICC line placed and patient will be discharged to home with home health care to continue with IVantibiotics. There was some initial reticence from the patient's ex-, to whom he lives with, about giving him IV antibiotics. Apparently this had been an issue before where some doses of antibiotics had been missed and patient had to be readmitted. But it was impressed upon her the importance of her continuing the management of the IV antibiotics at home health care will not be available [id number] to be able to help with that. Patient will be discharged home today with home health care. Weight / BMI Weight Weight: 76.3 kg Body Mass Index (BMI) 24.8 ABG / Lab / Microbiology Data 11/04/24 06:12 11/04/24 06:12 D/C Instructions Discharge Diet: No restrictions DC O2, CPAP, BIPAP Needs Home O2 Discharge instructions: No Meaningful Use Info Meaningful Use Meaningful Use Diagnoses (Choose all that apply): None applicable Ischemic Stroke Statin Dosing Therapy Reference: STATIN DOSE THERAPY REFERENCE: * Patients > 75 years receive moderate or high dose statin therapy. * Patients 75 years or YOUNGER should receive HIGH intensity statin dose unless contraindicated. You will be required to document reason for non-treatment if statin daily dose does not meet guidelines. HIGH DOSE STATIN THERAPY DAILY Atorvastatin > than or = to 40 mg Rosuvastatin > than or = to 20 mg Amlodipine + Atorvastatin > than or = to 2.5/40 mg Ezetimibe + Simvastatin 10/80 mg Simvastatin 80mg Discharge Plan Admission Admit Date/Time: 11/04/24 17:06 Primary Reason for Your Visit: Urinary tract infection Attending Provider: Adan Schneider Primary Care Provider: [facility],[place] Consulting Providers: Milady Tilley; Maulik Jenkins Discharge Orders/Prescriptions Prescriptions: New cefepime 2 gram Recon Soln 2 g IV Q8 5 Days Qty: 16 0RF Rx Instructions: dx: Pseudomonas infection. Routine picc care per protocol. Continued baclofen 20 MG tablet 20 mg PO 4X/DAY Patient Comments: MUSCLE SPASMS multivitamin with folic acid [Thera] 1 TABLET tablet 1 tab PO LUNCH Patient Comments: SUPPLEMENT nortriptyline 50 MG capsule 100 mg PO [...] PO BREAKFAST 30 Days Qty: 30 0RF ondansetron 4 mg tablet,disintegrating 4 mg PO Q8H PRN (Reason: nausea and vomiting) Qty: 10 0RF buprenorphine 20 mcg/hour patch weekly 1 patch transdermal Q7D Rx Instructions: sundays pregabalin [Lyrica] 150 mg capsule 150 mg PO TID doxycycline monohydrate 100 mg capsule 100 mg PO BID ibuprofen [IBU] 600 mg tablet 600 mg PO 4X/DAY PRN acetaminophen [Tylenol] 325 mg tablet 650 mg PO BID PRN oxycodone-acetaminophen 5-325 mg tablet 1 tab PO Q6H lidocaine 5 % adhesive patch,medicated 2 patch topical DAILY Rx Instructions: leave on most painful area for up to 12 hrs rosuvastatin [Crestor] 10 mg tablet 20 mg PO DAILY Referrals / [facility] - Within 2 Weeks Disposition Disposition (needs filled in before D/C Order can be placed): Home, Self Care Charges/Coding Visit Charges Inpatient E&M: 11041 Disch Hosp >30min 11/05/24 1519 <Electronically signed by Adan Schneider DO> Cosigner Signature (if applicable): CC: Dr. Adan Schneider DO; [facility]~ Signed [facility] Work Phone: 1(460) 440-766306-10-2025 Progress note Author Adan Schneider [facility] Note Date/Time November 05, 2024 2:23 pm [facility] Medical Records Department [address] [place] [address] Progress Note - Hospitalist 11/05/24 0746 MR#: [id number] Acct: [id number] Name: BAUTISTA RUFFIN Rep #:[id number] : 1960 64 From: Adan Schneider DO PCP: [place] [facility] Status:ADM IN Location: [facility] [id number] Reason for Visit Reason for Visit: Diagnoses Pseudomonas (aeruginosa) (mallei) (pseudomallei) as the cause of diseases classified elsewhere (11/04/24) Paraplegia, unspecified (11/04/24) Urinary tract infection, site not specified (11/04/24) Nausea (11/04/24) Other malaise (11/04/24) Other specified health status (11/04/24) Other cystostomy status (11/04/24) Subjective Subjective Feels well. No new complaints. Objective Data Objective Data Vital Signs: Vital Signs Temp Pulse Resp BP Pulse Ox O2 Del Method 36.6 C 81 18 114/59 L 94 Room Air 11/05/24 04:51 11/05/24 04:51 11/05/24 04:51 11/05/24 04:51 11/05/24 04:51 11/05/24 04:51 Oxygen Delivery Method Room Air Weight: 76.3 kg Body Mass Index (BMI) 24.8 Intake & Output: Intake and Output for Last 24 Hours 11/03/24 11/04/24 11/05/24 23:59 23:59 23:59 Intake Total 1187.5 / 1187.5 2751 / 2751 200 / 200 Output Total 1700 / 1700 800 / 800 Balance 1187.5 / 1187.5 1051 / 1051 -600 / -600 Lab / Micro Data 11/04/24 06:12 11/04/24 06:12 Physical Exam Const alert and no apparent distress HEENT head/scalp atraumatic and moist oral mucous membranes Assessment & Plan Assessment/Plan (1) Acute UTI: PLAN: Pseudomonas CAUTI. Catheter changed in ED on 11/01 Fluoroquinolone resistant. On cefepime ID has seen patient and ordered 5-days of cefepime for discharge. PICC placed. PLAN: Plan Debility: chronic. At baseline due to the paraplegia. Chronic conditions: * sacral ulcerations Vitamin C and Zn. Follow up with Dr. Masterson. * CAD: stable. 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 Complicates care and recovery. VTE prophylaixs:LMWH disposition: pending arrangement for IV abx. Medically stable for discharge, butdelay due to arranging home care. Unclear if could be performed successfully at home given reported reluctance of his ex-, who lives with patient, to be of help. Possibly patient may need to go to a SNF. Charges/Coding Visit Charges Inpatient E&M: 88212 Subs Hosp L1 11/05/24 1423 <Electronically signed by Adan Schneidre DO> Cosigner Signature (if applicable): CC: ~ Signed [facility] Work Phone: 1(932) 225-109106-10-2025 Discharge summary [facility] Medical Records Department [address] [place] [address] Discharge Summary 11/05/24 1514 MR#: [id number] Acct: [id number] Name: BAUTISTA RUFFIN Rep #:[id number] : 1960 64 From: Adan Schneider DO PCP: [facility] Status:ADM IN Location[place] [facility] [id number] Providers Date of Admission: 11/04/24 Primary Care Physician: [facility] Consultations 11/03/24 17:38 Consult: Infectious Disease Routine Consulting Provider: Maulik Jenkins Reason for Consult: Complicated UTI EMERGENT Consult: No MD Notified: Yes Date Notified: 11/04/24 Time Notified: 07:42 Method of Notification: Text Consult: Onc/Wound/staff research associate Routine Comment: 11/03/24 18:25 Consult: Onc/Wound/staff research associate Routine Comment: Reason For Visit: COMPLICATED PSEUDOMONAS AERUGINOSA Diagnosis Discharge Diagnosis (1) Acute UTI: Status: Acute Code(s): N39.0 - Urinary tract infection, site not specified Plan: Pseudomonas CAUTI. Catheter changed in ED on 11/01 Fluoroquinolone resistant. On cefepime ID has seen patient and ordered 5-days of cefepime for discharge. PICC placed. Plan Debility: chronic. At baseline due to the paraplegia. Chronic conditions: * sacral ulcerations Vitamin C and Zn. Follow up with Dr. Masterson. * CAD: stable. 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 Complicates care and recovery. VTE prophylaixs:LMWH disposition: To home with home care. To continue with IV antibiotics. Case management was able to discuss with patient's ex-, doing the lives with, andapparently she will be involved in the IV antibiotics to help. Medications at Discharge Home Medications baclofen 20 mg tablet 20 mg PO 4X/DAY muscle spasms 02/26/13 multivitamin with folic acid 400 mcg tablet (Thera) 1 tab PO LUNCH supplemeny 02/26/13 nortriptyline 50 mg capsule 100 mg PO QHS anxiety 01/19/19 ascorbic acid (vitamin C) 1,000 mg tablet (Vitamin C) 1 g PO DAILY Check with primary doctor 06/28/21 cholecalciferol (vitamin D3) 50 mcg (2,000 unit) capsule (Vitamin D3) 50 mcg PO DAILY Check with primary doctor 06/28/21 docusate sodium 100 mg capsule 100 mg PO BID Check with primary doctor 06/28/21 loratadine 10 mg capsule 10 mg PO DAILY Check with primary doctor 06/28/21 venlafaxine 75 mg tablet 150 mg PO DAILY Check with primary doctor 06/28/21 aspirin 81 mg tablet,delayed release 81 mg PO BREAKFAST heart health 30 days #30tabs 06/29/21 carvedilol 6.25 mg tablet 6.25 mg PO BID heart 30 days #60 tabs 06/29/21 ondansetron 4 mg disintegrating tablet 4 mg PO Q8H PRN nausea and vomiting #10 tabs 06/06/22 rosuvastatin 10 mg tablet (Crestor) 20 mg PO DAILY 06/16/24 buprenorphine 20 mcg/hour weekly transdermal patch 1 patch transdermal Q7D 09/11/24 acetaminophen 325 mg tablet (Tylenol) 650 mg PO BID PRN 11/03/24 doxycycline monohydrate 100 mg capsule 100 mg PO BID 11/03/24 ibuprofen 600 mg tablet (IBU) 600 mg PO 4X/DAY PRN 11/03/24 lidocaine 5 % topical patch 2 patch topical DAILY 11/03/24 oxycodone-acetaminophen 5 mg-325 mg tablet 1 tab PO Q6H pain 11/03/24 pregabalin 150 mg capsule (Lyrica) 150 mg PO TID 11/03/24 cefepime 2 gram solution for injection 2 g IV Q8 5 days #16 ea 11/04/24 Hospital Course Operations None Procedures None Summary of Care Provided Minutes Spent on Discharge: 32 Hospital Course: Patient presented emergency room on the sixth and was sent to have urinary checkinfection and was discharged with levofloxacin. Came back showing Pseudomonas that was resistant patient was sent back to the hospital. Patient started on cefepime and patient disease was consulted. The patient had a PICC line placed and patient will be discharged to home with home health care to continue with IVantibiotics. There was some initial reticence from the patient's ex-, to whom he lives with, about giving him IV antibiotics. Apparently this had been an issue before where some doses of antibiotics had been missed and patient had to be readmitted. But it was impressed upon her the importance of her continuing the management of the IV antibiotics at home health care will not be available [id number] to be able to help with that. Patient will be discharged home today with home health care. Weight / BMI Weight Weight: 76.3 kg Body Mass Index (BMI) 24.8 ABG / Lab / Microbiology Data 11/04/24 06:12 11/04/24 06:12 D/C Instructions Discharge Diet: No restrictions DC O2, CPAP, BIPAP Needs Home O2 Discharge instructions: No Meaningful Use Info Meaningful Use Meaningful Use Diagnoses (Choose all that apply): None applicable Ischemic Stroke Statin Dosing Therapy Reference: STATIN DOSE THERAPY REFERENCE: * Patients > 75 years receive moderate or high dose statin therapy. * Patients 75 years or YOUNGER should receive HIGH intensity statin dose unless contraindicated. You will be required to document reason for non-treatment if statin daily dose does not meet guidelines. HIGH DOSE STATIN THERAPY DAILY Atorvastatin > than or = to 40 mg Rosuvastatin > than or = to 20 mg Amlodipine + Atorvastatin > than or = to 2.5/40 mg Ezetimibe + Simvastatin 10/80 mg Simvastatin 80mg Discharge Plan Admission Admit Date/Time: 11/04/24 17:06 Primary Reason for Your Visit: Urinary tract infection Attending Provider: Adan Schneider Primary Care Provider: [facility] Consulting Providers: Milady Tilley; Maulik Jenkins Discharge Orders/Prescriptions Prescriptions: New cefepime 2 gram Recon Soln 2 g IV Q8 5 Days Qty: 16 0RF Rx Instructions: dx: Pseudomonas infection. Routine picc care per protocol. Continued baclofen 20 MG tablet 20 mg PO 4X/DAY Patient Comments: MUSCLE SPASMS multivitamin with folic acid [Thera] 1 TABLET tablet 1 tab PO LUNCH Patient Comments: SUPPLEMENT nortriptyline 50 MG capsule 100 mg PO [...] PO BREAKFAST 30 Days Qty: 30 0RF ondansetron 4 mg tablet,disintegrating 4 mg PO Q8H PRN (Reason: nausea and vomiting) Qty: 10 0RF buprenorphine 20 mcg/hour patch weekly 1 patch transdermal Q7D Rx Instructions: sundays pregabalin [Lyrica] 150 mg capsule 150 mg PO TID doxycycline monohydrate 100 mg capsule 100 mg PO BID ibuprofen [IBU] 600 mg tablet 600 mg PO 4X/DAY PRN acetaminophen [Tylenol] 325 mg tablet 650 mg PO BID PRN oxycodone-acetaminophen 5-325 mg tablet 1 tab PO Q6H lidocaine 5 % adhesive patch,medicated 2 patch topical DAILY Rx Instructions: leave on most painful area for up to 12 hrs rosuvastatin [Crestor] 10 mg tablet 20 mg PO DAILY Referrals / [facility] - Within 2 Weeks Disposition Disposition (needs filled in before D/C Order can be placed): Home, Self Care Charges/Coding Visit Charges Inpatient E&M: 53994 Disch Hosp >30min 11/05/24 1519 Cosigner Signature (if applicable): CC: Dr. Adan Schneider DO; [facility]~ Signed [facility]06-10-2025 [facility]06-10-2025 Progress note [facility] Medical Records Department [address] [place] [address] Progress Note - Hospitalist 11/05/24 0746 MR#: [id number] Acct: [id number] Name: BAUTISTA RUFFIN Rep #:[id number] : 1960 64 From: Adan Schneider DO [place]: [facility] Status:ADM IN Location[place] [facility] [id number] Reason for Visit Reason for Visit: Diagnoses Pseudomonas (aeruginosa) (mallei) (pseudomallei) as the cause of diseases classified elsewhere (11/04/24) Paraplegia, unspecified (11/04/24) Urinary tract infection, site not specified (11/04/24) Nausea (11/04/24) Other malaise (11/04/24) Other specified health status (11/04/24) Other cystostomy status (11/04/24) Subjective Subjective Feels well. No new complaints. Objective Data Objective Data Vital Signs: Vital Signs Temp Pulse Resp BP Pulse Ox O2 Del Method 36.6 C 81 18 114/59 L 94 Room Air 11/05/24 04:51 11/05/24 04:51 11/05/24 04:51 11/05/24 04:51 11/05/24 04:51 11/05/24 04:51 Oxygen Delivery Method Room Air Weight: 76.3 kg Body Mass Index (BMI) 24.8 Intake & Output: Intake and Output for Last 24 Hours 11/03/24 11/04/24 11/05/24 23:59 23:59 23:59 Intake Total 1187.5 / 1187.5 2751 / 2751 200 / 200 Output Total 1700 / 1700 800 / 800 Balance 1187.5 / 1187.5 1051 / 1051 -600 / -600 Lab / Micro Data 11/04/24 06:12 11/04/24 06:12 Physical Exam Const alert and no apparent distress HEENT head/scalp atraumatic and moist oral mucous membranes Assessment & Plan Assessment/Plan (1) Acute UTI: PLAN: Pseudomonas CAUTI. Catheter changed in ED on 11/01 Fluoroquinolone resistant. On cefepime ID has seen patient and ordered 5-days of cefepime for discharge. PICC placed. PLAN: Plan Debility: chronic. At baseline due to the paraplegia. Chronic conditions: * sacral ulcerations Vitamin C and Zn. Follow up with Dr. Masterson. * CAD: stable. 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 Complicates care and recovery. VTE prophylaixs:LMWH disposition: pending arrangement for IV abx. Medically stable for discharge, butdelay due to arranging home care. Unclear if could be performed successfully at home given reported reluctance of his ex-, who lives with patient, to be of help. Possibly patient may need to go to a SNF. Charges/Coding Visit Charges Inpatient E&M: 13189 Subs Hosp L1 11/05/24 1423 Cosigner Signature (if applicable): CC: ~ Signed [facility]06-09-2025 Evaluation note* Diagnosis Onset Date Resolution Status Admit Date Acute paraplegia acute October 5:06pm Acute UTI acute November 04, 2024 5:06pm Debility acute November 04, 2024 5:06pm Failure of outpatient treatment acut e November 04, 2024 5:06pm Nausea acute November 04, 2024 5:06pm Pseudomonas urinary tract infection acute November 04, 2024 5 :06pm Chronic suprapubic catheter chronic November 04, 2024 5:06pm Paraplegia chronic November 04, 2024 5:06pm [facility] Work Phone: 1(933) 108-883606-09-2025 Consult note Author Maulik Jenkins [facility] Note Date/Time November 04, 2024 3:10p m [facility] Medical Records Department [address] [place] [id number] Consultation - Infectious Dx 11/04/24 1508 MR#: [id number] Acct: [id number] Name: BAUTISTA RUFFIN Rep #:[id number] : 1960 64 From: Maulik adams MD PCP: [facility] Status:ADM SERGIO [id number] Assessment & Plan Assessment/Plan (1) Acute UTI: PLAN: Picc planned. Ucx with PsA. Will write for 5 more days cefepime. Feeling better. will follow, thank you, d/w lining caser (2) Chronic suprapubic catheter: (3) Paraplegia: HPI Consult Data Date of Consult: 11/04/24 HPI Narrative Reason for Consultation: uti HPI Narrative: BAUTISTA RUFFIN, is a 64 M with paraplegia, suprapubic catheter, presented with 2- 3 days fatigue, not feeling well, nausea. No fever, no abd pain. Came to ED, admitted on cefepime, feeling better today. Full ROS performed and neg except as noted above. [facility] Medical History Sacral decubitus ulcer, stage III Atherosclerotic heart disease of [place] coronary artery without angina pectoris Depression Chronic indwelling [place] catheter Heavy alcohol use Anxiety and depression Acute paralytic poliomyelitis, wild virus, indigenous Osteomyelitis of right femur Transverse myelitis Neurogenic bladder Benign essential hypertension Home Medications ?Medication ?Instructions ?Recorded ?Last Taken ?Type baclofen 20 mg tablet 20 mg PO 4X/DAY muscle spasm s 02/26/13 06/27/21 History multivitamin with folic acid 400 1 tab PO LUNCH supple sia 02/26/13 06/27/21 History mcg tablet (Thera) nortriptyline 50 mg capsule 100 mg PO QHS anxiety 12/2806/26/21 History ascorbic acid (vitamin C) 1,000 mg [...] DAILY Check with p rimary 06/28/21 Unknown History doctor aspirin 81 mg tablet,delayed 81 mg PO BREAKFAST heart health 30 06/29/21 Unknown Rx release days #30 tabs carvedilol 6.25 mg tablet 6.25 mg PO BID heart 30 days #60 06/29/21 Unknown Rx tabs ondansetron 4 mg disintegrating 4 mg PO Q8H PRN nausea and 06/06/22 Unknown Rx tablet vomiting #10 tabs rosuvastatin 10 mg tablet (Crestor) 20 mg PO DAILY Unknown History buprenorphine 20 mcg/hour weekly 1 patch transdermal Q 7D 09/11/24 Unknown History transdermal patch acetaminophen 325 mg tablet 650 mg PO BID PRN 11/03/24 Unknown History (Tylenol) doxycycline monohydrate 100 mg 100 mg PO BID 11/03/24 Unknown History capsule ibuprofen 600 mg tablet (IBU) 600 mg PO 4X/DAY PRN 01/20 Unknown History lidocaine 5 % topical patch 2 patch topical DAILY 01/20 Unknown History oxycodone-acetaminophen 5 mg-325 1 tab PO Q6H pain 01/20 Unknown History mg tablet pregabalin 150 mg capsule (Lyrica) 150 mg PO TID 11/03 Unknown History cefepime 2 gram solution for 2 g IV Q8 5 days #16 ea 0 11/04/24 Unknown Rx injection Allergy/AdvReac Type Severity Reaction Status Date / Time No Known Allergies Allergy Verified 11/03/24 11:31 Family History Father CVA (cerebral vascular accident) Heart disease Myocardial infarction Surgical History History of coronary artery stent placement (06/28/21) History of femoral derotational osteotomy History of appendectomy History of suprapubic catheter Hx of colostomy Colostomy in place Social History (Updated 11/03/24 @ 16:[address] Milady Tilley DO) household members: spouse housing: house current occupational status: retired Smoking Status: Former smoker alcohol intake: former [...] lesions noted Neuro CN's II-XII intact bilaterally Neuro Narrative: paraplegia Lab / Micro Data Attestation: I reviewed the patient's lab results. 11/04/24 06:12 11/04/24 06:12 Labs: Laboratory Results - last 24 hr 11/03/24 14:30: Troponin T Hi Sens 2 Hr 26 H 11/03/24 16:28: Troponin T Hi Sens 4Hr 26 H 11/04/24 06:12: WBC 7.7, RBC 4.38 L, Hgb 10.9 L, Hct 34.3 L, MCV 78.3 L, MCH 24.9 L, MCHC 31.8 L, RDW Std Deviation 51.3 H, RDW Coeff of Bhanu 18.0 H, Plt Count 297, MPV 9.0, Immature Gran % (Auto) 0.300, Neut % (Auto) 59.7, Lymph % (Auto) 25.3, Kendall % (Auto) 11.7 H, Eos % (Auto) 2.6, Baso % (Auto) 0.4, AbsoluteNeuts (auto) 4.6, Absolute Lymphs (auto) 1.95, Nucleated RBC % 0, Sodium 140, Potassium 3.5, Chloride 106, Carbon Dioxide 23.4, Anion Gap 11, BUN 15, Creatinine 0.68 L, Estim Creat Clear Calc 111.19, Est GFR (MDRD) Non-Af 104, BUN/Creatinine Ratio 22.2 H, Glucose 139 H, Calcium 8.4, Phosphorus 3.1, Magnesium 1.9, Total Bilirubin < 0.15, AST 14, ALT 6, Alkaline Phosphatase 108, Total Protein 5.9, Albumin 2.7 L, Globulin 3.1, Albumin/Globulin Ratio 0.9 11/04/24 1510 <Electronically signed by Maulik Jenkins MD> Cosigner Signature (if applicable): CC: [facility]~ Signed [facility] Work Phone: 1(741) 965-915206-09-2025 Progress note Author Adan Schneider [facility] Note Date/Time November 04, 2024 1:34p m [facility] Medical Records Department [address] [place] [address] Progress Note - Hospitalist 11/04/24 1324 MR#: [id number] Acct: [id number] Name: BAUTISTA RUFFIN Rep #:[id number] : 1960 64 From: Adan Schneider DO PCP: [facility] Status:ADM SERGIO Location: [place] [address] Reason for Visit Reason for Visit: Diagnoses Pseudomonas (aeruginosa) (mallei) (pseudomallei) as the cause of diseases classified elsewhere (11/03/24) Urinary tract infection, site not specified (11/03/24) Nausea (11/03/24) Other malaise (11/03/24) Other specified health status (11/03/24) Other cystostomy status (11/03/24) Subjective Subjective Feeling ok. No new events overnight. Objective Data Objective Data Vital Signs: Vital Signs Temp Pulse Resp BP Pulse Ox O2 Del Method 36.6 C 78 16 106/78 95 Room Air 11/04/24 08:15 11/04/24 08:15 11/04/24 08:15 11/04/24 08:15 11/04/24 08:15 11/04/24 08:15 Oxygen Delivery Method Room Air Weight: 76.7 kg Body Mass Index (BMI) 25.0 Intake & Output: Intake and Output for Last 24 Hours 11/02/24 11/03/24 11/04/24 23:59 23:59 23:59 Intake Total 1187.5 / 1187.5 1650 / 1650 Output Total 800 / 800 Balance 1187.5 / 1187.5 850 / 850 Lab / Micro Data 11/04/24 06:12 11/04/24 06:12 Labs: Laboratory Results - last 24 hr 11/03/24 14:30: Troponin T Hi Sens 2 Hr 26 H 11/03/24 16:28: Troponin T Hi Sens 4Hr 26 H 11/04/24 06:12: WBC 7.7, RBC 4.38 L, Hgb 10.9 L, Hct 34.3 L, MCV 78.3 L, MCH 24.9 L, MCHC 31.8 L, RDW Std Deviation 51.3 H, RDW Coeff of Bhanu 18.0 H, Plt Count 297, MPV 9.0, Immature Gran % (Auto) 0.300, Neut % (Auto) 59.7, Lymph % (Auto) 25.3, Kendall % (Auto) 11.7 H, Eos % (Auto) 2.6, Baso % (Auto) 0.4, AbsoluteNeuts (auto) 4.6, Absolute Lymphs (auto) 1.95, Nucleated RBC % 0, Sodium 140, Potassium 3.5, Chloride 106, Carbon Dioxide 23.4, Anion Gap 11, BUN 15, Creatinine 0.68 L, Estim Creat Clear Calc 111.19, Est GFR (MDRD) Non-Af 104, BUN/Creatinine Ratio 22.2 H, Glucose 139 H, Calcium 8.4, Phosphorus 3.1, Magnesium 1.9, Total Bilirubin < 0.15, AST 14, ALT 6, Alkaline Phosphatase 108, Total Protein 5.9, Albumin 2.7 L, Globulin 3.1, Albumin/Globulin Ratio 0.9 Radiography Diagnostic Testing: Radiology Impression Abdomen/Pelvis CT 11/03/24 12:26 IMPRESSION: Left lung base pneumonia. No acute process identified in the abdomen or pelvis. Other findings as above. OVERALL FINAL ASSESSMENT: . LI-RADS is not meant to be used in patients <18 years or patients with cirrhosisdue to congenital hepatic fibrosis or due to vascular disorders, because these patients have a lower chance of developing HCC. Reading Location: [facility] Chest X-Ray 11/03/24 14:35 IMPRESSION: No acute process detected. Reading Location: [facility] Physical Exam Const alert and no apparent distress HEENT head/scalp atraumatic and moist oral mucous membranes Resp normal respiratory effort and no retractions Neuro Sensorium / Orientation: awake and alert Speech: speech normal Psych affect normal Assessment & Plan Assessment/Plan (1) Acute UTI: PLAN: Pseudomonas CAUTI. Catheter changed in ED on 11/01 Fluoroquinolone resistant. On cefepime ID to assist with long-term abx. Will order PICC. PLAN: Plan Debility: Chronic conditions: * sacral ulcerations Vitamin C and Zn. Follow up with Dr. Masterson. * CAD: stable. 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 Complicates care and recovery. VTE prophylaixs:LMWH Charges/Coding Visit Charges Inpatient E&M: 25508 Subs Hosp L2 11/04/24 1334 <Electronically signed by Adan Schneider DO> Cosigner Signature (if applicable): CC: ~ Signed [facility] Work Phone: [phone] 271-134306-09-2025 Consult note [facility] Medical Records Department [address] [place] [address] Consultation - Infectious Dx 11/04/24 1508 MR#: [id number] Acct: [id number] Name: BAUTISTA RUFFIN Rep #:[id number] : 1960 64 From: Maulik adams MD PCP: [facility] Status:ADM SERGIO Location[place] [facility] [place] [id number] Assessment & Plan Assessment/Plan (1) Acute UTI: PLAN: Picc planned. Ucx with PsA. Will write for 5 more days cefepime. Feeling better. will follow, thank you, d/w lining caser (2) Chronic suprapubic catheter: (3) Paraplegia: HPI Consult Data Date of Consult: 11/04/24 HPI Narrative Reason for Consultation: uti HPI Narrative: BAUTISTA RUFFIN, is a 64 M with paraplegia, suprapubic catheter, presented with 2- 3 days fatigue, notfeeling well, nausea. No fever, no abd pain. Came to ED, admitted on cefepime, feeling better today. Full ROS performed and neg except as noted above. [facility] Medical History Sacral decubitus ulcer, stage III Atherosclerotic heart disease of [place] coronary artery without angina pectoris Depression Chronic indwelling [place] catheter Heavy alcohol use Anxiety and depression Acute paralytic poliomyelitis, wild virus, indigenous Osteomyelitis of right femur Transverse myelitis Neurogenic bladder Benign essential hypertension Home Medications ?Medication ?Instructions ?Recorded ?Last Taken ?Type baclofen 20 mg tablet 20 mg PO 4X/DAY muscle spasm s 02/26/13 06/27/21 History multivitamin with folic acid 400 1 tab PO LUNCH supple sia 02/26/13 06/27/21 History mcg tablet (Thera) nortriptyline 50 mg capsule 100 mg PO QHS anxiety 12/2806/26/21 History ascorbic acid (vitamin C) 1,000 mg [...] DAILY Check with p rimary 06/28/21 Unknown History doctor aspirin 81 mg tablet,delayed 81 mg PO BREAKFAST heart health 30 06/29/21 Unknown Rx release days #30 tabs carvedilol 6.25 mg tablet 6.25 mg PO BID heart 30 days #60 06/29/21 Unknown Rx tabs ondansetron 4 mg disintegrating 4 mg PO Q8H PRN nausea and 06/06/22 Unknown Rx tablet vomiting #10 tabs rosuvastatin 10 mg tablet (Crestor) 20 mg PO DAILY Unknown History buprenorphine 20 mcg/hour weekly 1 patch transdermal Q 7D 09/11/24 Unknown History transdermal patch acetaminophen 325 mg tablet 650 mg PO BID PRN 11/03/24 Unknown History (Tylenol) doxycycline monohydrate 100 mg 100 mg PO BID 11/03/24 Unknown History capsule ibuprofen 600 mg tablet (IBU) 600 mg PO 4X/DAY PRN 01/20 Unknown History lidocaine 5 % topical patch 2 patch topical DAILY 01/20 Unknown History oxycodone-acetaminophen 5 mg-325 1 tab PO Q6H pain 01/20 Unknown History mg tablet pregabalin 150 mg capsule (Lyrica) 150 mg PO TID 11/03 Unknown History cefepime 2 gram solution for 2 g IV Q8 5 days #16 ea 0 11/04/24 Unknown Rx injection Allergy/AdvReac Type Severity Reaction Status Date / Time No Known Allergies Allergy Verified 11/03/24 11:31 Family History Father CVA (cerebral vascular accident) Heart disease Myocardial infarction Surgical History History of coronary artery stent placement (06/28/21) History of femoral derotational osteotomy History of appendectomy History of suprapubic catheter Hx of colostomy Colostomy in place Social History (Updated 11/03/24 @ 16:[address] Milady Tilley DO) household members: spouse housing: house current occupational status: retired Smoking Status: Former smoker alcohol intake: former [...] lesions noted Neuro CN's II-XII intact bilaterally Neuro Narrative: paraplegia Lab / Micro Data Attestation: I reviewed the patient's lab results. 11/04/24 06:12 11/04/24 06:12 Labs: Laboratory Results - last 24 hr 11/03/24 14:30: Troponin T Hi Sens 2 Hr 26 H 11/03/24 16:28: Troponin T Hi Sens 4Hr 26 H 11/04/24 06:12: WBC 7.7, RBC 4.38 L, Hgb 10.9 L, Hct 34.3 L, MCV 78.3 L, MCH 24.9 L, MCHC 31.8 L, RDW Std Deviation 51.3 H, RDW Coeff of Bhanu 18.0 H, Plt Count 297, MPV 9.0, Immature Gran % (Auto) 0.300, Neut % (Auto) 59.7, Lymph % (Auto) 25.3, Kendall % (Auto) 11.7 H, Eos % (Auto) 2.6, Baso % (Auto) 0.4, AbsoluteNeuts (auto) 4.6, Absolute Lymphs (auto) 1.95, Nucleated RBC % 0, Sodium 140, Potassium 3.5, Chloride 106, Carbon Dioxide 23.4, Anion Gap 11, BUN 15, Creatinine 0.68 L, Estim Creat Clear Calc 111.19, Est GFR (MDRD) Non-Af 104, BUN/Creatinine Ratio 22.2 H, Glucose 139 H, Calcium 8.4, Phosphorus 3.1, Magnesium 1.9, Total Bilirubin < 0.15, AST 14, ALT 6, Alkaline Phosphatase 108, TotalProtein 5.9, Albumin 2.7 L, Globulin 3.1, Albumin/Globulin Ratio 0.9 11/04/24 1510 Cosigner Signature (if applicable): CC: [facility]~ Signed [facility]06-09-2025 Progress note [facility] Medical Records Department [address] [place] [address] Progress Note - Hospitalist 11/04/24 1324 MR#: [id number] Acct: [id number] Name: BAUTISTA RUFFIN Rep #:[id number] : 1960 64 From: Adan Schneider DO [place]CP: [facility] Status:ADM SERGIO Location: [place] [address] Reason for Visit Reason for Visit: Diagnoses Pseudomonas (aeruginosa) (mallei) (pseudomallei) as the cause of diseases classified elsewhere (11/03/24) Urinary tract infection, site not specified (11/03/24) Nausea (11/03/24) Other malaise (11/03/24) Other specified health status (11/03/24) Other cystostomy status (11/03/24) Subjective Subjective Feeling ok. No new events overnight. Objective Data Objective Data Vital Signs: Vital Signs Temp Pulse Resp BP Pulse Ox O2 Del Method 36.6 C 78 16 106/78 95 Room Air 11/04/24 08:15 11/04/24 08:15 11/04/24 08:15 11/04/24 08:15 11/04/24 08:15 11/04/24 08:15 Oxygen Delivery Method Room Air Weight: 76.7 kg Body Mass Index (BMI) 25.0 Intake & Output: Intake and Output for Last 24 Hours 11/02/24 11/03/24 11/04/24 23:59 23:59 23:59 Intake Total 1187.5 / 1187.5 1650 / 1650 Output Total 800 / 800 Balance 1187.5 / 1187.5 850 / 850 Lab / Micro Data 11/04/24 06:12 11/04/24 06:12 Labs: Laboratory Results - last 24 hr 11/03/24 14:30: Troponin T Hi Sens 2 Hr 26 H 11/03/24 16:28: Troponin T Hi Sens 4Hr 26 H 11/04/24 06:12: WBC 7.7, RBC 4.38 L, Hgb 10.9 L, Hct 34.3 L, MCV 78.3 L, MCH 24.9 L, MCHC 31.8 L, RDW Std Deviation 51.3 H, RDW Coeff of Bhanu 18.0 H, Plt Count 297, MPV 9.0, Immature Gran % (Auto) 0.300, Neut % (Auto) 59.7, Lymph % (Auto) 25.3, Kendall % (Auto) 11.7 H, Eos % (Auto) 2.6, Baso % (Auto) 0.4, AbsoluteNeuts (auto) 4.6, Absolute Lymphs (auto) 1.95, Nucleated RBC % 0, Sodium 140, Potassium 3.5, Chloride 106, Carbon Dioxide 23.4, Anion Gap 11, BUN 15, Creatinine 0.68 L, Estim Creat Clear Calc 111.19, Est GFR (MDRD) Non-Af 104, BUN/Creatinine Ratio 22.2 H, Glucose 139 H, Calcium 8.4, Phosphorus 3.1, Magnesium 1.9, Total Bilirubin < 0.15, AST 14, ALT 6, Alkaline Phosphatase 108, TotalProtein 5.9, Albumin 2.7 L, Globulin 3.1, Albumin/Globulin Ratio 0.9 Radiography Diagnostic Testing: Radiology Impression Abdomen/Pelvis CT 11/03/24 12:26 IMPRESSION: Left lung base pneumonia. No acute process identified in the abdomen or pelvis. Other findings as above. OVERALL FINAL ASSESSMENT: . LI-RADS is not meant to be used in patients <18 years or patients with cirrhosisdue to congenital hepatic fibrosis or due to vascular disorders, because these patients have a lower chance of developing HCC. Reading Location: [facility] Chest X-Ray 11/03/24 14:35 IMPRESSION: No acute process detected. Reading Location: [facility] Physical Exam Const alert and no apparent distress HEENT head/scalp atraumatic and moist oral mucous membranes Resp normal respiratory effort and no retractions Neuro Sensorium / Orientation: awake and alert Speech: speech normal Psych affect normal Assessment & Plan Assessment/Plan (1) Acute UTI: PLAN: Pseudomonas CAUTI. Catheter changed in ED on 11/01 Fluoroquinolone resistant. On cefepime ID to assist with long-term abx. Will order PICC. PLAN: Plan Debility: Chronic conditions: * sacral ulcerations Vitamin C and Zn. Follow up with Dr. Masterson. * CAD: stable. 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 Complicates care and recovery. VTE prophylaixs:LMWH Charges/Coding Visit Charges Inpatient E&M: 76515 Subs Hosp L2 11/04/24 2788 Cosigner Signature (if applicable): CC: ~ Signed [facility]06-08-2025 History and physical note Author Milady Tilley [facility] Note Date/Time November 03, 2024 4:56p m [facility] Medical Records Department [address] [place] [address] H&P Exam - Hospitalist 11/03/24 1621 MR#: [id number] Acct: [id number] Name: BAUTISTA RUFFIN Rep #:[id number] : 1960 64 From: Milady Tilley DO [place]CP: [facility] Status:ADM SERGIO Location: [place] [id number] HPI - General General Date of Admission: 11/03/24 Date of Service: 11/03/24 Chief Complaint: Nausea/generalized weakness HPI Narrative BAUTISTA RUFFIN, is a 64 M who presented to the emergency department at [facility] with nausea and generalized weakness slightly. Patient reportedly not been feeling well for about 2 days. He was seen in the emergencydepartment on the evening of 11/01/2024 and was diagnosed with urinary tract infection based on UA and was started on antibiotics with cefdinir. He has a chronic indwelling suprapubic catheter and it was changed at that time. Culturewas sent. Unfortunately, a culture has resulted with Pseudomonas that is fairlyresistant organism. It is sensitive to cefepime, Zosyn and meropenem but is resistant to quinolones. He also has sacral and buttock decubiti that are chronic and do not appear infected at this time. They just have not been healing. Since he was still feeling worse despite antibiotics he returned to the emergency department for further evaluation. Vital signs at the time of presentation showed temperature of 98.2, heart rate 78, blood pressure 157/100, respiratory rate 17 oxygen saturations were 97% on room air. CBC shows a normal white count, hemoglobin and platelet count. Thereis no left shift. Chemistry panel is unremarkable. Lactic acid was normal at 1.3. His troponin was initially mildly elevated at 27 with a delta of 26. Thisdoes not appear to be clinically significant. Chest x-ray is unremarkable. CT of the abdomen pelvis showed. A possible left lower lobe infiltrate however there does appear to be a small pleural effusion and this looks more like compressive atelectasis and no other acute findings in the abdomen. ED physician was initially concerned about pneumonia and treated with ceftriaxone azithromycin however patient was not having any clinical signs or symptoms of pneumonia with a normal white count no fevers. I suspect overall this is more likely related to his urinary tract infection which is with an organism that is resistant to the antibiotic he was discharged with. He will beadmitted and placed on IV antibiotics with a consultation infectious disease as patient and family felt he was too weak to go home at this time. They were educated that this would be observation with likely discharge tomorrow after infectious disease consultation. [facility] Medical History Sacral decubitus ulcer, stage III Atherosclerotic heart disease of [place] coronary artery without angina pectoris Depression Chronic [...] DAILY Check with p rimary 06/28/21 Unknown History doctor apixaban 2.5 mg [...] Q 7D 09/11/24 Unknown History transdermal patch cefdinir 300 mg capsule 300 mg PO Q12H #14 caps 11/20 Unknown Rx Allergy/AdvReac Type Severity Reaction Status Date / Time No Known Allergies Allergy Verified 11/03/24 11:31 Family History Father CVA (cerebral vascular accident) Heart disease Myocardial infarction Surgical History History of coronary artery stent placement (06/28/21) History of femoral derotational osteotomy History of appendectomy History of suprapubic catheter Hx of colostomy Colostomy in place Social History (Updated 11/03/24 @ 16:[address] Milady Tilley DO) household members: spouse housing: house current occupational status: retired Smoking Status: Former smoker alcohol intake: former substance use type: marijuana ROS Constitutional Constitutional: Reports chills, malaise and weakness; Denies anorexia, change inweight, fatigue, fever(s), night sweats or other Eyes Eyes: Denies blurry vision, change in eye color, change in vision, discharge from eye(s), double vision, erythema, eye pain, loss of vision or other ENT HEENT: Denies abnormal hearing, dysphagia, ear pain, epistaxis, headache(s), hearing loss, nasal congestion, nasal discharge, post nasal drip, sinus pressure, sore throat or other Cardiovascular Cardiovascular: Denies chest pain, claudication, dyspnea on exertion, edema, lightheadedness, orthopnea, palpitations, paroxysmal nocturnal dyspnea, rapid heart rate, syncope or other Respiratory/Chest Respiratory/Chest: Denies cough, dyspnea, excessive phlegm production, hemoptysis, productive cough, shortness of breath at rest, shortness of breath with exertion, wheezing or other Gastrointestinal Gastrointestinal: Reports nausea, vomiting and other Details: suprapubic pain ; Denies abdominal pain, coffee ground emesis, constipation, diarrhea, dyspepsia, hematemesis, hematochezia, loose stools or melena Genitourinary Genitourinary: Reports other Details: chronic suprapubic catheter ; Denies burning urination, difficulty urinating, dysuria, hematuria, nocturia, urinary frequency, urinary hesitancy, urinary incontinence or urinary urgency Musculoskeletal Musculoskeletal: Denies arthralgias, back pain, joint pain, joint stiffness, joint swelling, myalgias, neck pain or other Neurologic Neurologic: Reports focal weakness and other Details: wheelchair bound at baseline ; Denies abnormal gait Vital Signs Vital Signs Vital Signs: 11/03/24 11:28 11/03/24 11:33 11/03/24 12:31 Temperature 98.2 F 98.2 F Temperature Source Oral Oral Pulse Rate 78 69 Respiratory Rate 17 12 Respiratory Pattern Normal Blood Pressure 157/100 H 138/89 H Blood Pressure Mean 119 105 Pulse Ox 97 98 Oxygen Delivery Method Room Air Room Air 11/03/24 13:00 11/03/24 14:00 11/03/24 15:00 Temperature 98.4 F 98.1 F 97.9 F Temperature Source Oral Oral Oral Pulse Rate 66 69 79 Respiratory Rate 14 14 15 Respiratory Pattern Blood Pressure 182/88 H 159/95 H 138/72 H Blood Pressure Mean 119 116 94 Pulse Ox 99 100 97 Oxygen Delivery Method Room Air Room Air Room Air 11/03/24 16:00 Temperature 97.6 F L Temperature Source Oral Pulse Rate 71 Respiratory Rate 15 Respiratory Pattern Blood Pressure 161/88 H Blood Pressure Mean 112 Pulse Ox 97 Oxygen Delivery Method Room Air Weight Weight: 82.8 kg Body Mass Index (BMI) 27.7 Physical Exam Const alert, oriented x3, no apparent distress and average body habitus; Negative for healthy appearing Constitutional Narrative: Relatively bedbound, upper middle-aged, white male, lying in bed, does not appear toxic and currently appears comfortable General Appearance: cooperative HEENT normocephalic, head/scalp atraumatic and hearing grossly normal bilaterally HEENT Narrative: Mucous membranes are slightly dry, dentition is fair, no thrush Eyes conjunctivae normal Eyes Narrative: No scleral icterus Resp normal respiratory effort, no retractions, no use of accessory muscles and clearto auscultation bilaterally Auscultation: Negative for rales, rhonchi or wheezes Cardio regular rate, regular rhythm, S1 normal heart sound, S2 normal heart sound, no murmurs, no rub, no gallops and no clicks GI normal to inspection, nondistended, normoactive bowel sounds, soft to palpation and non-tender Extremity Extremity Narrative: Chronic bilateral lower extremity edema due to immobility that is 2+ in nature, no sinus or clubbing Skin No no wounds, no jaundice, no petechiae and no mottling Skin Narrative: Decubitus ulcers bilateral buttock and sacrum, skin is pale Neuro oriented x3, No moves all extremities and No no focal motor deficits Neuro Narrative: Bilateral lower extremity paraplegia with decreased sensation Speech: speech normal Psych Psych Narrative: Affect is slightly flat but appropriate for situation, eye contact is good and patient tracks appropriately Results Lab / Micro Data 11/03/24 12:35 11/03/24 12:35 Labs: Laboratory Results - last 24 hr 11/03/24 12:35: WBC 9.3, RBC 5.39, Hgb 13.5, Hct 42.4, MCV 78.7 L, MCH 25.0 L, MCHC 31.8 L, RDW Std Deviation 50.6 H, RDW Coeff of Bhanu 18.3 H, Plt Count 364, MPV 9.0, Immature Gran % (Auto) 0.200, Neut % (Auto) 69.4, Lymph % (Auto) 22.5, Kendall % (Auto) 6.7, Eos % (Auto) 0.9, Baso % (Auto) 0.3, Absolute Neuts (auto) 6.5, Absolute Lymphs (auto) 2.10, Nucleated RBC % 0, Sodium 139, Potassium 3.9, Chloride 101, Carbon Dioxide 25.7, Anion Gap 12, BUN 14, Creatinine 0.65 L, Estim Creat Clear Calc 122.02, Est GFR (MDRD) Non-Af 106, BUN/Creatinine Ratio 21.4 H, Glucose 101 H, Lactic Acid 1.3, Calcium 9.5, Total Bilirubin 0.24, AST 16, ALT 8, Alkaline Phosphatase 141 H, Troponin T High Sens 27 H, Total Protein 7.5, Albumin 3.4, Globulin 4.1, Albumin/Globulin Ratio 0.8 L, Lipase 17 11/03/24 14:30: Troponin T Hi Sens 2 Hr 26 H Imaging Radiology Impression Abdomen/Pelvis CT 11/03/24 12:26 IMPRESSION: Left lung base pneumonia. No acute process identified in the abdomen or pelvis. Other findings as above. OVERALL FINAL ASSESSMENT: . LI-RADS is not meant to be used in patients <18 years or patients with cirrhosisdue to congenital hepatic fibrosis or due to vascular disorders, because these patients have a lower chance of developing HCC. [facility]-Ray 11/03/24 14:35 IMPRESSION: No acute process detected. Reading [facility] Assessment & Plan Assessment/Plan (1) Pseudomonas urinary tract infection: (2) Debility: (3) Nausea: (4) Chronic suprapubic catheter: (5) Failure of outpatient treatment: PLAN: Plan Complicated Pseudomonas UTI - Organism shows resistance to quinolones and patient and family wanted to be admitted - Will start cefepime and consult ID for assistance with antibiotics at discharge - Suprapubic catheter was changed on 11/01/2024 - Outpatient failure of treatment is related to sensitivity of the organism Nausea - Suspect secondary to above - As needed antiemetics and IV fluids - Should improve with treatment of the above infection Generalized weakness and debility with chronic paraplegia - Like related to acute infection - Will consult physical therapy and Occupational Therapy for assistance during hospitalization - Case management/social work consultation for assistance with discharge planning Chronic sacral and buttock pressure ulcers - Will start vitamin C and zinc for wound healing - Add Mamadou to assist with wound healing - Recommend outpatient follow-up at the wound center and with Dr. Masterson - Patient has diverting ostomy - Consult wound care CAD/essential hypertension/hyperlipidemia - s/p proximal LAD stent (2021) - Continue aspirin - Continue carvedilol - Continue rosuvastatin for therapeutic substitution Chronic paraplegia secondary to transverse myelitis - Patient has neurogenic bladder with suprapubic catheter - Condition is stable - Continue home baclofen - Continue home gabapentin - Continue home buprenorphine Chronic constipation - Continue home docusate - As needed available if needed Anxiety/depression - Continue home antidepressants DVT prophylaxis - Currently listed that he is on apixaban however this is not finalized - If not taking apixaban will start Lovenox 40 subcu daily CODE STATUS - full code Charges/Coding Visit Charges Inpatient E&M: 90799 Init Hosp L2 11/03/24 1656 <Electronically signed by Milady Tilley DO> Cosigner Signature (if applicable): CC: Dr. Milady Tilley DO; [facility]~ Signed [facility] Work Phone: 1([phone]) 362-660806-08-2025 History and physical note [facility] Medical Records Department [address] [place] [address] H&P Exam - Hospitalist 11/03/24 1621 MR#: [id number] Acct: [id number] Name: BAUTISTA RUFFIN Rep #:[id number] : 1960 64 From: Milady Tilley DO PCP: [facility] Status:ADM SERGIO Location: [facility] [place] [id number] HPI - General General Date of Admission: 11/03/24 Date of Service: 11/03/24 Chief Complaint: Nausea/generalized weakness HPI Narrative BAUTISTA RUFFIN, is a 64 M who presented to the emergency department at [facility] with nausea and generalized weakness slightly. Patient reportedly not been feeling well for about 2 days. He was seen in the emergencydepartment on the evening of 11/01/2024 and was diagnosed with urinary tract infection based on UA and was started on antibiotics with cefdinir. He has a chronic indwelling suprapubic catheter and it was changed at that time. Culturewas sent. Unfortunately, a culture has resulted with Pseudomonas that is fairlyresistant organism. It is sensitive to cefepime, Zosyn andmeropenem but is resistant to quinolones. He also has sacral and buttock decubiti that are chronic and do not appear infected at this time. They just have not been healing. Since he was still feelingworse despite antibiotics he returned to the emergency department for further evaluation. Vital signs at the time of presentation showed temperature of 98.2, heart rate 78, blood pressure 157/100, respiratory rate 17 oxygen saturations were 97% on room air. CBC shows a normal white count,hemoglobin and platelet count. Thereis no left shift. Chemistry panel is unremarkable. Lactic acid was normal at 1.3. His troponin was initially mildly elevated at 27 with a delta of 26. Thisdoes notappear to be clinically significant. Chest x-ray is unremarkable. CT of the abdomen pelvis showed. A possible left lower lobe infiltrate however there does appear to be a small pleural effusion and this looks more like compressive atelectasis and no other acute findings in the abdomen. ED physician was initially concerned about pneumonia and treated with ceftriaxone azithromycin however patient was not having any clinical signs or symptoms of pneumonia with a normal white count no fevers. I suspect overall this is more likely related to his urinary tract infection which is with an organism that is resistant to the antibiotic he was discharged with. He will beadmitted and placedon IV antibiotics with a consultation infectious disease as patient and family felt he was too weakto go home at this time. They were educated that this would be observation with likely discharge tomorrow after infectious disease consultation. [facility] Medical History Sacral decubitus ulcer, stage III Atherosclerotic heart disease of [place] coronary artery without angina pectoris Depression Chronic [...] mg capsule 100 mg PO QHS anxiety 12/2806/26/21 History ascorbic acid (vitamin C) 1,000 mg [...] DAILY Check with p rimary 06/28/21 Unknown History doctor apixaban 2.5 mg [...] Q 7D 09/11/24 Unknown History transdermal patch cefdinir 300 mg capsule 300 mg PO Q12H #14 caps 11/20 Unknown Rx Allergy/AdvReac Type Severity Reaction Status Date / Time No Known Allergies Allergy Verified 11/03/24 11:31 Family History Father CVA (cerebral vascular accident) Heart disease Myocardial infarction Surgical History History of coronary artery stent placement (06/28/21) History of femoral derotational osteotomy History of appendectomy History of suprapubic catheter Hx of colostomy Colostomy in place Social History (Updated 11/03/24 @ 16:[address] Milady Tilley DO) household members: spouse housing: house current occupational status: retired Smoking Status: Former smoker alcohol intake: former substance use type: marijuana ROS Constitutional Constitutional: Reports chills, malaise and weakness; Denies anorexia, change inweight, fatigue, fever(s), night sweats or other Eyes Eyes: Denies blurry vision, change in eye color, change in vision, discharge from eye(s), double vision, erythema, eye pain, loss of vision or other ENT HEENT: Denies abnormal hearing, dysphagia, ear pain, epistaxis, headache(s), hearing loss, nasal congestion, nasal discharge, post nasal drip, sinus pressure, sore throat or other Cardiovascular Cardiovascular: Denies chest pain, claudication, dyspnea on exertion, edema, lightheadedness, orthopnea, palpitations, paroxysmal nocturnal dyspnea, rapid heart rate, syncope or other Respiratory/Chest Respiratory/Chest: Denies cough, dyspnea, excessive phlegm production, hemoptysis, productive cough, shortness of breath at rest, shortness of breath with exertion, wheezing or other Gastrointestinal Gastrointestinal: Reports nausea, vomiting and other Details: suprapubic pain ; Denies abdominal pain, coffee ground emesis, constipation, diarrhea, dyspepsia, hematemesis, hematochezia, loose stools or melena Genitourinary Genitourinary: Reports other Details: chronic suprapubic catheter ; Denies burning urination, difficulty urinating, dysuria, hematuria, nocturia, urinary frequency, urinary hesitancy, urinary incontinence or urinary urgency Musculoskeletal Musculoskeletal: Denies arthralgias, back pain, joint pain, joint stiffness, joint swelling, myalgias, neck pain or other Neurologic Neurologic: Reports focal weakness and other Details: wheelchair bound at baseline ; Denies abnormal gait Vital Signs Vital Signs Vital Signs: 11/03/24 11:28 11/03/24 11:33 11/03/24 12:31 Temperature 98.2 F 98.2 F Temperature Source Oral Oral Pulse Rate 78 69 Respiratory Rate 17 12 Respiratory Pattern Normal Blood Pressure 157/100 H 138/89 H Blood Pressure Mean 119 105 Pulse Ox 97 98 Oxygen Delivery Method Room Air Room Air 11/03/24 13:00 11/03/24 14:00 11/03/24 15:00 Temperature 98.4 F 98.1 F 97.9 F Temperature Source Oral Oral Oral Pulse Rate 66 69 79 Respiratory Rate 14 14 15 Respiratory Pattern Blood Pressure 182/88 H 159/95 H 138/72 H Blood Pressure Mean 119 116 94 Pulse Ox 99 100 97 Oxygen Delivery Method Room Air Room Air Room Air 11/03/24 16:00 Temperature 97.6 F L Temperature Source Oral Pulse Rate 71 Respiratory Rate 15 Respiratory Pattern Blood Pressure 161/88 H Blood Pressure Mean 112 Pulse Ox 97 Oxygen Delivery Method Room Air Weight Weight: 82.8 kg Body Mass Index (BMI) 27.7 Physical Exam Const alert, oriented x3, no apparent distress and average body habitus; Negative for healthy appearing Constitutional Narrative: Relatively bedbound, upper middle-aged, white male, lying in bed, does not appear toxic and currently appears comfortable General Appearance: cooperative HEENT normocephalic, head/scalp atraumatic and hearing grossly normal bilaterally HEENT Narrative: Mucous membranes are slightly dry, dentition is fair, no thrush Eyes conjunctivae normal Eyes Narrative: No scleral icterus Resp normal respiratory effort, no retractions, no use of accessory muscles and clearto auscultation bilaterally Auscultation: Negative for rales, rhonchi or wheezes Cardio regular rate, regular rhythm, S1 normal heart sound, S2 normal heart sound, no murmurs, no rub, no gallops and no clicks GI normal to inspection, nondistended, normoactive bowel sounds, soft to palpation and non-tender Extremity Extremity Narrative: Chronic bilateral lower extremity edema due to immobility that is 2+ in nature, no sinus or clubbing Skin No no wounds, no jaundice, no petechiae and no mottling Skin Narrative: Decubitus ulcers bilateral buttock and sacrum, skin is pale Neuro oriented x3, No moves all extremities and No no focal motor deficits Neuro Narrative: Bilateral lower extremity paraplegia with decreased sensation Speech: speech normal Psych Psych Narrative: Affect is slightly flat but appropriate for situation, eye contact is good and patient tracks appropriately Results Lab / Micro Data 11/03/24 12:35 11/03/24 12:35 Labs: Laboratory Results - last 24 hr 11/03/24 12:35: WBC 9.3, RBC 5.39, Hgb 13.5, Hct 42.4, MCV 78.7 L, MCH 25.0 L, MCHC 31.8 L, RDW StdDeviation 50.6 H, RDW Coeff of Bhanu 18.3 H, Plt Count 364, MPV 9.0, Immature Gran % (Auto) 0.200, Neut % (Auto) 69.4, Lymph % (Auto) 22.5, Kendall % (Auto) 6.7, Eos % (Auto) 0.9, Baso % (Auto) 0.3, Absolute Neuts (auto) 6.5, Absolute Lymphs (auto) 2.10, Nucleated RBC % 0, Sodium 139, Potassium 3.9, Chloride 101, Carbon Dioxide 25.7, Anion Gap 12, BUN 14, Creatinine 0.65 L, Estim Creat Clear Calc 122.02, Est GFR (MDRD) Non-Af 106, BUN/Creatinine Ratio 21.4 H, Glucose 101 H, Lactic Acid 1.3, Calcium 9.5, Total Bilirubin 0.24, AST 16, ALT 8, Alkaline Phosphatase 141 H, Troponin T High Sens 27 H, Total Protein 7.5, Albumin 3.4, Globulin 4.1, Albumin/Globulin Ratio 0.8 L, Lipase 17 11/03/24 14:30: Troponin T Hi Sens 2 Hr 26 H Imaging Radiology Impression Abdomen/Pelvis CT 11/03/24 12:26 IMPRESSION: Left lung base pneumonia. No acute process identified in the abdomen or pelvis. Other findings as above. OVERALL FINAL ASSESSMENT: . LI-RADS is not meant to be used in patients <18 years or patients with cirrhosisdue to congenital hepatic fibrosis or due to vascular disorders, because these patients have a lower chance of developing HCC. Reading Location: [facility] Chest X-Ray 11/03/24 14:35 IMPRESSION: No acute process detected. Reading Location: [facility] Assessment & Plan Assessment/Plan (1) Pseudomonas urinary tract infection: (2) Debility: (3) Nausea: (4) Chronic suprapubic catheter: (5) Failure of outpatient treatment: PLAN: Plan Complicated Pseudomonas UTI - Organism shows resistance to quinolones and patient and family wanted to be admitted - Will start cefepime and consult ID for assistance with antibiotics at discharge - Suprapubic catheter was changed on 11/01/2024 - Outpatient failure of treatment is related to sensitivity of the organism Nausea - Suspect secondary to above - As needed antiemetics and IV fluids - Should improve with treatment of the above infection Generalized weakness and debility with chronic paraplegia - Like related to acute infection - Will consult physical therapy and Occupational Therapy for assistance during hospitalization - Case management/social work consultation for assistance with discharge planning Chronic sacral and buttock pressure ulcers - Will start vitamin C and zinc for wound healing - Add Mamadou to assist with wound healing - Recommend outpatient follow-up at the wound center and with Dr. Masterson - Patient has diverting ostomy - Consult wound care CAD/essential hypertension/hyperlipidemia - s/p proximal LAD stent (2021) - Continue aspirin - Continue carvedilol - Continue rosuvastatin for therapeutic substitution Chronic paraplegia secondary to transverse myelitis - Patient has neurogenic bladder with suprapubic catheter - Condition is stable - Continue home baclofen - Continue home gabapentin - Continue home buprenorphine Chronic constipation - Continue home docusate - As needed available if needed Anxiety/depression - Continue home antidepressants DVT prophylaxis - Currently listed that he is on apixaban however this is not finalized - If not taking apixaban will start Lovenox 40 subcu daily CODE STATUS - full code Charges/Coding Visit Charges Inpatient E&M: 99169 Init Hosp L2 11/03/24 1656 Cosigner Signature (if applicable): CC: Dr. Milady Tilley DO; [facility]~ Signed [facility]06-08-2025 Radiology Diagnostic study note [facility] Imaging Services [address] [place] [address] Chest 1 View (Portable) MR#: [id number] Acct: [id number] Name: BAUTISTA RUFFIN Rep #: [id number] : 1960 M 64 From: Pet er Peer PCP: [facility] Status: REG ER Study:Chest 1 View (Portable) Date of Exam: 11/03/24 Exam# [id number] Ordering Dr: Julia Pedroza DO PROCEDURE: CHEST 1 VIEW (PORTABLE) 11/03/2024 REASON FOR EXAM: WEAKNESS TECHNIQUE: Frontal view of the chest. COMPARISON: Chest radiograph 07/14/2024 FINDINGS: Hardware: EKG lead wires Heart: Normal size Lungs: Clear Bones: No aggressive lesions identified Other: RAD/Chest 1 View (Portable) IMPRESSION: No acute process detected. Reading Location: [facility]- CC: Dr. Alma Rosa Pedroza DO; [facility] ~ Principal Administrative Clerk: Signed [facility]06-08-2025 Radiology Diagnostic study note [facility] Imaging Services [address] [place] [address] Abdomen/Pelvis W IV Cont ONLY MR#: [id number] Acct: [id number] Name: BAUTISTA RUFFIN Rep #: [id number] : 1960 M 64 From: Pet er Peer PCP: [facility] Status: REG ER Study:Abdomen/Pelvis W IV Cont ONLY Date of E xam: 11/03/24 Exam# [id number] Ordering Dr: Julia Pedroza DO PROCEDURE: ABDOMEN/PELVIS W IV CONT [...] No inflammatory process identified in the right lowerquadrant. Question of surgical clip in the cecum [...] in patients <18 years or patients with cirrhosisdue to congenital hepatic fibrosis or due to vascular disorders, because these patients have a lower chance of developing HCC. Reading Location: [facility] CC: Dr. Alma Rosa Pedroza DO; [facility] ~ Principal Administrative Clerk: Signed [facility]06-08-2025 Evaluation note* Diagnosis Onset Date Resolution Status Admit Date Acute paraplegia acute October 4:12pm Acute UTI acute November 03, 2024 4:12pm Debility acute November 03, 2024 4:12pm Failure of outpatient treatment acut e November 03, 2024 4:12pm Nausea acute November 03, 2024 4:12pm Pseudomonas urinary tract infection acute November 03, 2024 4 :12pm Chronic suprapubic catheter chronic November 03, 2024 4:12pm [facility] Work Phone: 1(260) 104-975904-17-2025 Discharge summary [facility] Medical Records Department [address] [place] [address] Emergency Department Summary 09/11/24 MR#: [id number] Acct: [id number] Name: BAUTISTA RUFFIN Rep #:[id number] : 1960 64 From: Alex Sheppard [employer] DYNAMIC[employer]Parish PCP: [facility] Status:REG ER Location: ED ADDENDUM by Dr. Alma Rosa Pedroza DO on 09/12/24 at 1144 Care of patient turned over to ut awaiting transfer to tertiary care center for definitive care at [place]. Patient remained hemodynamically stable. [place] will use there transfer team to transfer patient I am told at 1300 hrs. 09/12/24 1144 Cosigner Signature (if applicable): 09/12/24 0012 cc: [facility] ~* Signed HPI History of Present Illness Chief Complaint: Cellulitis Narrative Narrative: Patient is a 64-year-old male that is a paraplegic, this is secondary to transverse myelitis, patient also has history of wounds, colostomy, catheter, anxiety [facility]. Patient does live at home, patient's as well as some home care nursing doestake care of him. The home care nurses noticed that there was a foul-smelling odor from multiple wounds on his sacrum, buttocks area, they [facility]. Patient denies any fever or chills. Patient does not state he has any pain however he has no feeling. [facility] Medical History Sacral decubitus ulcer, stage III Atherosclerotic heart disease of [place] coronary artery without angina pectoris Depression Chronic [...] mg capsule 100 mg PO QHS anxiety 12/2806/26/21 History ascorbic acid (vitamin C) 1,000 mg [...] abrasions, lacerations. Positive for multiple wounds of thesacrum, buttock area Psychiatric: Negative for any depression, anxiety, stress, suicidal ideation, homicidal ideation Hematologic: Negative for any excessive bruising, easy bleeding EXAM Physical Exam Narrative Exam Narrative: Vital signs [...] gross trauma or deformity. Activefull range of motionof all extremities. Neuro: Cranial nerves II through [...] 96 Pulse Ox 95 Oxygen Delivery Method Physical Exam Const Vital Signs: 09/11/24 15:37 [...] 96 Pulse Ox 95 Oxygen Delivery Method [facility] Lab Data Labs: Laboratory Results - last 24 hr 09/11/24 09/11/24 16:00 16:56 WBC 11.6 H RBC 5.05 Hgb 13.0 Hct 40.9 MCV 81.0 MCH 25.7 L MCHC 31.8 L RDW Std Deviation 51.1 H RDW Coeff of Bhanu 17.6 H Plt Count 371 MPV 8.6 Immature Gran % (Auto) 0.400 Neut % (Auto) 66.2 Lymph % (Auto) 20.8 Kendall % (Auto) 8.6 Eos % (Auto) 3.6 [...] Clarity Clear Urine pH 6.0 Ur Specific Ovid 1.015 Urine Protein 15 H Urine Glucose [...] ischium bilaterally but no abscess. Reading Location: [id number] Treatment and Re-Evaluation :: Differential diagnosis includes however is not limited to: Osteomyelitis, stage III pressure ulcers, stage IV pressure ulcers, sepsis, cellulitis, necrotizing fasciitis Patient appears generally well, vital signs are stable, patient is nontoxic- appearing. Presenting to the emergency department for wound care, wound evaluation. On my physical examination, patient multiple wounds to the sacrum, buttocks area, this was between stage II to stage III pressure ulcers with some drainage. I was able to collect wound cultures. Patient was seen a septic workup. CT scan ofthe pelvis will be completed. All radiologic examinations [...] showed large sacral decubitus ulcers with chronic osteomyel itis of the sacrum and ischium bilaterally but no abscess. Secondary this finding, the patient doeswant to try to go to the [place] [facility]. We will try to see if they have a bed. If not the patient will be admitted here. Patient will be admitted to [place]. MDM MDM Narrative Medical decision making narrative: [...] department for possible infection of the sacral decubitusulcers. Patient also states that he has a [...] obtained to assess for hepatic function, renal function,and electrolyteabnormality. PT with INR and PTT will [...] was reviewed. There is a mildleukocytosis of 11.6.The remainder was within normal limits. PT with [...] myself. Patient requested to go to the [place]. Patient was accepted there. Patient was to be transferred to the emergency department there. However, ambulance service stated that the patient's insurance wouldnotcover their ambulance [facility] [place]. [facility] [...] % (Auto) 66.2 Lymph % (Auto) 20.8 Kendall % (Auto) 8.6 Eos % (Auto) 3.6 [...] Clarity Clear Urine pH 6.0 Ur Specific Ovid 1.015 Urine Protein 15 H Urine Glucose [...] ischium bilaterally but no abscess. Reading Location: [facility] Discharge Plan Triage Chief Complaint: Cellulitis ED [...] Days Qty: 20 0RF [facility] Care Provider[place] [facility] Referrals: [facility] [Primary Care Provider] - Print Language: Mauritanian Disposition Disposition: Acute Care Hospital Discharge Location: Department of Affairs What to do if you have Problems For any increased pain, shortness of breath, bleeding, nausea or vomiting, chestpain, or any unexpected problems, contact your Primary Care Provider. Call [facility] ([phone]) or report tothe closest Emergency Room. Call 911 if necessary. 09/11/242147 Cosigner Signature (if applicable): 09/12/24 0012 CC: [facility] ~ Signed [facility]04-16-2025 Radiology Diagnostic study note [facility] Imaging Services [address] [place], [place] [address] Pelvis WITH IV Contrast MR#: [id number] Acct: [id number] Name: BAUTISTA RUFFIN Rep #: [id number] : 1960 Rylee 64 From: Maxwell Figueroa MD PCP: [place] [facility] Status: REG ER Study:Pelvis WITH IV Contrast Date of Exam: 09/11/24 Exam# [id number] Ordering Dr: Alex Ellis FLIGHT DYNAMICIST-C PROCEDURE: PELVIS WITH IV CONTRAST REASON FOR [...] ischium bilaterally but no abscess. Reading Location: [id number] CC: MARCOS Sheppard; [facility] ~ Principal Administrative Clerk: Signed [facility]04-16-2025 Discharge summary Author Alex Sheppard [facility] Note Date/Time September 12, 2024 11: 45am [facility] Medical Records Department [address] [place] [address] Emergency Department Summary 09/11/24 MR#: [id number] Acct: [id number] Name: BAUTISTA RUFFIN Rep #:[id number] : 1960 64 From: Alex RODRÍGUEZ [place]CP: [place] [facility] Status:REG ER Location: ED ADDENDUM by Dr. Alma Rosa Pedroza DO on 09/12/24 at 1144 Care of patient turned over to ut awaiting transfer to tertiary care center for definitive [place]. Patient remained hemodynamically stable. [place] will use there transfer team to transfer patient I am told at 1300 hrs. 09/12/24 1144<Electronically signed by Alma Rosa Pedroza DO> Cosigner Signature (if applicable): 09/12/24 0012 <Electronically signed by Adwoa NARVAEZ> cc: [facility] ~* Signed HPI <MARCOS Holliday - Last Filed: 09/11/24 21:48> History of Present Illness Chief Complaint: Cellulitis Narrative Narrative: Patient is a 64-year-old male that is a paraplegic, this is secondary to transverse myelitis, patient also has history of wounds, colostomy, catheter, anxiety [facility]. Patient does live at home, patient's as well as some home care nursing does take care of him. The home care nurses noticed that there was a foul-smelling odor from multiple wounds on his sacrum, buttocks area, [facility] Patient denies any fever or chills. Patient does not state he has any pain however he has no feeling. [facility] <MARCOS Holliday - Last Filed: 09/11/24 21:48> [facility] Medical History Sacral decubitus ulcer, stage III Atherosclerotic heart disease of [place] coronary artery without angina pectoris Depression Chronic [...] mg capsule 100 mg PO QHS anxiety 12/2806/26/21 History ascorbic acid (vitamin C) 1,000 mg [...] for any excessive bruising, easy bleeding EXAM <MARCOS Holliday - Last Filed: 09/11/24 21:48> Physical Exam [...] 96 Pulse Ox 95 Oxygen Delivery Method [facility] <MARCOS Holliday - Last Filed: 09/11/24 21:48> [...] % (Auto) 66.2 Lymph % (Auto) 20.8 Kendall % (Auto) 8.6 Eos % (Auto) 3.6 [...] Clarity Clear Urine pH 6.0 Ur Specific Ovid 1.015 Urine Protein 15 H Urine Glucose [...] ischium bilaterally but no abscess. Reading Location: [facility] Treatment and Re-Evaluation :: Differential diagnosis includes [...] want to try to go to the [place] [facility]. We will try to see if they have a bed. If not the patient will be admitted here. Patient will be admitted to [place]. <Dr. Adan Bell, DO - Last Filed: 09/12/24 00:12> [facility] MDM Narrative Medical decision making narrative: I [...] myself. Patient requested to go to the [place]. Patient was accepted there. Patient was to be transferred to the emergency department there. However, ambulance service stated that the patient's insurance would notcover their ambulance transfer [facility] the [place]. [facility] [...] % (Auto) 66.2 Lymph % (Auto) 20.8 Kendall % (Auto) 8.6 Eos % (Auto) 3.6 [...] Clarity Clear Urine pH 6.0 Ur Specific Ovid 1.015 Urine Protein 15 H Urine Glucose [...] ischium bilaterally but no abscess. Reading Location: [facility] Discharge Plan Triage Chief Complaint: Cellulitis ED [...] Days Qty: 20 0RF [place] [facility] [place] [facility] [facility] [facility] [[place] [facility] Provider] - Print Language: Mauritanian Disposition Disposition: Acute Care Hospital Discharge Location: [facility] [place] [facility] What to do if you have Problems For any increased pain, shortness of breath, bleeding, nausea or vomiting, chestpain, or any unexpected problems, contact your Primary Care Provider. Call [facility] ([phone]) or report to the closest Emergency Room. Call 911 if necessary. 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 Stacy Gongora [facility]12-13-2024 Miscellaneous Notes* Telephone Encounter - Stacy Gongora [...] in 3 weeks [facility] Telephone encounter Note * Telephone Encounter - Stacy Gongora - 05/07/2024 9:07 AM EST I called the patient to schedule an appointment. I left another voice mail with our office number to call back. Of note he has 2 numbers in the chart. The 601# does not work. Stacy Gongora [facility]12-09-2024 Telephone encounter Note* Telephone Encounter - Stacy Gongora - 05/06/2024 8:17 AM EST I called the patient to schedule an appointment with MTM in 3 weeks. I left a voice mail with our office number to call back. Stacy Gongora [facility]12-09-2024 Telephone encounter Note* Telephone Encounter - Stacy Gongora - 05/06/2024 8:17 AM EST ----- Message from Hetal Gallegos MD sent at 05/04/2024 12:05 PM EST ----- [facility] Diagnosis Onset Date Resolution Status Non-ST elevated myocardial infarction (non-STEMI) resolved [facility] Work Phone: Evaluation noteNo assessment information available [facility] Work Phone: History and physical note Author Milady Tilley [facility] Note Date/Time November 03, 2024 4:56p m [facility] Medical Records Department [address] [place] [address] H&P Exam - Hospitalist 11/03/24 1621 MR#: [id number] Acct: [id number] Name: BAUTISTA RUFFIN Rep #:[id number] : 1960 64 From: Milady Tilley DO PCP: [place] [facility] Status:ADM SERGIO Location: [id number] HPI - General General Date of Admission: 11/03/24 Date of Service: 11/03/24 Chief Complaint: Nausea/generalized weakness HPI Narrative BAUTISTA RUFFIN, is a 64 M who presented to the emergency department at [facility] with nausea and generalized weakness slightly. Patient reportedly not been feeling well for about 2 days. He was seen in the emergencydepartment on the evening of 11/01/2024 and was diagnosed with urinary tract infection based on UA and was started on antibiotics with cefdinir. He has a chronic indwelling suprapubic catheter and it was changed at that time. Culturewas sent. Unfortunately, a culture has resulted with Pseudomonas that is fairlyresistant organism. It is sensitive to cefepime, Zosyn and meropenem but is resistant to quinolones. He also has sacral and buttock decubiti that are chronic and do not appear infected at this time. They just have not been healing. Since he was still feeling worse despite antibiotics he returned to the emergency department for further evaluation. Vital signs at the time of presentation showed temperature of 98.2, heart rate 78, blood pressure 157/100, respiratory rate 17 oxygen saturations were 97% on room air. CBC shows a normal white count, hemoglobin and platelet count. Thereis no left shift. Chemistry panel is unremarkable. Lactic acid was normal at 1.3. His troponin was initially mildly elevated at 27 with a delta of 26. Thisdoes not appear to be clinically significant. Chest x-ray is unremarkable. CT of the abdomen pelvis showed. A possible left lower lobe infiltrate however there does appear to be a small pleural effusion and this looks more like compressive atelectasis and no other acute findings in the abdomen. ED physician was initially concerned about pneumonia and treated with ceftriaxone azithromycin however patient was not having any clinical signs or symptoms of pneumonia with a normal white count no fevers. I suspect overall this is more likely related to his urinary tract infection which is with an organism that is resistant to the antibiotic he was discharged with. He will beadmitted and placed on IV antibiotics with a consultation infectious disease as patient and family felt he was too weak to go home at this time. They were educated that this would be observation with likely discharge tomorrow after infectious disease consultation. [facility] Medical History Sacral decubitus ulcer, stage III Atherosclerotic heart disease of [place] coronary artery without angina pectoris Depression Chronic [...] DAILY Check with p rimary 06/28/21 Unknown History doctor apixaban 2.5 mg [...] Q 7D 09/11/24 Unknown History transdermal patch cefdinir 300 mg capsule 300 mg PO Q12H #14 caps 11/20 Unknown Rx Allergy/AdvReac Type Severity Reaction Status Date / Time No Known Allergies Allergy Verified 11/03/24 11:31 Family History Father CVA (cerebral vascular accident) Heart disease Myocardial infarction Surgical History History of coronary artery stent placement (06/28/21) History of femoral derotational osteotomy History of appendectomy History of suprapubic catheter Hx of colostomy Colostomy in place Social History (Updated 11/03/24 @ 16:[address] Milady Tilley DO) household members: spouse housing: house current occupational status: retired Smoking Status: Former smoker alcohol intake: former substance use type: marijuana ROS Constitutional Constitutional: Reports chills, malaise and weakness; Denies anorexia, change inweight, fatigue, fever(s), night sweats or other Eyes Eyes: Denies blurry vision, change in eye color, change in vision, discharge from eye(s), double vision, erythema, eye pain, loss of vision or other ENT HEENT: Denies abnormal hearing, dysphagia, ear pain, epistaxis, headache(s), hearing loss, nasal congestion, nasal discharge, post nasal drip, sinus pressure, sore throat or other Cardiovascular Cardiovascular: Denies chest pain, claudication, dyspnea on exertion, edema, lightheadedness, orthopnea, palpitations, paroxysmal nocturnal dyspnea, rapid heart rate, syncope or other Respiratory/Chest Respiratory/Chest: Denies cough, dyspnea, excessive phlegm production, hemoptysis, productive cough, shortness of breath at rest, shortness of breath with exertion, wheezing or other Gastrointestinal Gastrointestinal: Reports nausea, vomiting and other Details: suprapubic pain ; Denies abdominal pain, coffee ground emesis, constipation, diarrhea, dyspepsia, hematemesis, hematochezia, loose stools or melena Genitourinary Genitourinary: Reports other Details: chronic suprapubic catheter ; Denies burning urination, difficulty urinating, dysuria, hematuria, nocturia, urinary frequency, urinary hesitancy, urinary incontinence or urinary urgency Musculoskeletal Musculoskeletal: Denies arthralgias, back pain, joint pain, joint stiffness, joint swelling, myalgias, neck pain or other Neurologic Neurologic: Reports focal weakness and other Details: wheelchair bound at baseline ; Denies abnormal gait Vital Signs Vital Signs Vital Signs: 11/03/24 11:28 11/03/24 11:33 11/03/24 12:31 Temperature 98.2 F 98.2 F Temperature Source Oral Oral Pulse Rate 78 69 Respiratory Rate 17 12 Respiratory Pattern Normal Blood Pressure 157/100 H 138/89 H Blood Pressure Mean 119 105 Pulse Ox 97 98 Oxygen Delivery Method Room Air Room Air 11/03/24 13:00 11/03/24 14:00 11/03/24 15:00 Temperature 98.4 F 98.1 F 97.9 F Temperature Source Oral Oral Oral Pulse Rate 66 69 79 Respiratory Rate 14 14 15 Respiratory Pattern Blood Pressure 182/88 H 159/95 H 138/72 H Blood Pressure Mean 119 116 94 Pulse Ox 99 100 97 Oxygen Delivery Method Room Air Room Air Room Air 11/03/24 16:00 Temperature 97.6 F L Temperature Source Oral Pulse Rate 71 Respiratory Rate 15 Respiratory Pattern Blood Pressure 161/88 H Blood Pressure Mean 112 Pulse Ox 97 Oxygen Delivery Method Room Air Weight Weight: 82.8 kg Body Mass Index (BMI) 27.7 Physical Exam Const alert, oriented x3, no apparent distress and average body habitus; Negative for healthy appearing Constitutional Narrative: Relatively bedbound, upper middle-aged, white male, lying in bed, does not appear toxic and currently appears comfortable General Appearance: cooperative HEENT normocephalic, head/scalp atraumatic and hearing grossly normal bilaterally HEENT Narrative: Mucous membranes are slightly dry, dentition is fair, no thrush Eyes conjunctivae normal Eyes Narrative: No scleral icterus Resp normal respiratory effort, no retractions, no use of accessory muscles and clearto auscultation bilaterally Auscultation: Negative for rales, rhonchi or wheezes Cardio regular rate, regular rhythm, S1 normal heart sound, S2 normal heart sound, no murmurs, no rub, no gallops and no clicks GI normal to inspection, nondistended, normoactive bowel sounds, soft to palpation and non-tender Extremity Extremity Narrative: Chronic bilateral lower extremity edema due to immobility that is 2+ in nature, no sinus or clubbing Skin No no wounds, no jaundice, no petechiae and no mottling Skin Narrative: Decubitus ulcers bilateral buttock and sacrum, skin is pale Neuro oriented x3, No moves all extremities and No no focal motor deficits Neuro Narrative: Bilateral lower extremity paraplegia with decreased sensation Speech: speech normal Psych Psych Narrative: Affect is slightly flat but appropriate for situation, eye contact is good and patient tracks appropriately Results Lab / Micro Data 11/03/24 12:35 11/03/24 12:35 Labs: Laboratory Results - last 24 hr 11/03/24 12:35: WBC 9.3, RBC 5.39, Hgb 13.5, Hct 42.4, MCV 78.7 L, MCH 25.0 L, MCHC 31.8 L, RDW Std Deviation 50.6 H, RDW Coeff of Bhanu 18.3 H, Plt Count 364, MPV 9.0, Immature Gran % (Auto) 0.200, Neut % (Auto) 69.4, Lymph % (Auto) 22.5, Kendall % (Auto) 6.7, Eos % (Auto) 0.9, Baso % (Auto) 0.3, Absolute Neuts (auto) 6.5, Absolute Lymphs (auto) 2.10, Nucleated RBC % 0, Sodium 139, Potassium 3.9, Chloride 101, Carbon Dioxide 25.7, Anion Gap 12, BUN 14, Creatinine 0.65 L, Estim Creat Clear Calc 122.02, Est GFR (MDRD) Non-Af 106, BUN/Creatinine Ratio 21.4 H, Glucose 101 H, Lactic Acid 1.3, Calcium 9.5, Total Bilirubin 0.24, AST 16, ALT 8, Alkaline Phosphatase 141 H, Troponin T High Sens 27 H, Total Protein 7.5, Albumin 3.4, Globulin 4.1, Albumin/Globulin Ratio 0.8 L, Lipase 17 11/03/24 14:30: Troponin T Hi Sens 2 Hr 26 H Imaging Radiology Impression Abdomen/Pelvis CT 11/03/24 12:26 IMPRESSION: Left lung base pneumonia. No acute process identified in the abdomen or pelvis. Other findings as above. OVERALL FINAL ASSESSMENT: . LI-RADS is not meant to be used in patients <18 years or patients with cirrhosisdue to congenital hepatic fibrosis or due to vascular disorders, because these patients have a lower chance of developing HCC. [facility] Chest [facility]-Ray 11/03/24 14:35 IMPRESSION: No acute process detected. Reading Location: [facility] Assessment & Plan Assessment/Plan (1) Pseudomonas urinary tract infection: (2) Debility: (3) Nausea: (4) Chronic suprapubic catheter: (5) Failure of outpatient treatment: PLAN: Plan Complicated Pseudomonas UTI - Organism shows resistance to quinolones and patient and family wanted to be admitted - Will start cefepime and consult ID for assistance with antibiotics at discharge - Suprapubic catheter was changed on 11/01/2024 - Outpatient failure of treatment is related to sensitivity of the organism Nausea - Suspect secondary to above - As needed antiemetics and IV fluids - Should improve with treatment of the above infection Generalized weakness and debility with chronic paraplegia - Like related to acute infection - Will consult physical therapy and Occupational Therapy for assistance during hospitalization - Case management/social work consultation for assistance with discharge planning Chronic sacral and buttock pressure ulcers - Will start vitamin C and zinc for wound healing - Add Mamadou to assist with wound healing - Recommend outpatient follow-up at the wound center and with Dr. Masterson - Patient has diverting ostomy - Consult wound care CAD/essential hypertension/hyperlipidemia - s/p proximal LAD stent (2021) - Continue aspirin - Continue carvedilol - Continue rosuvastatin for therapeutic substitution Chronic paraplegia secondary to transverse myelitis - Patient has neurogenic bladder with suprapubic catheter - Condition is stable - Continue home baclofen - Continue home gabapentin - Continue home buprenorphine Chronic constipation - Continue home docusate - As needed available if needed Anxiety/depression - Continue home antidepressants DVT prophylaxis - Currently listed that he is on apixaban however this is not finalized - If not taking apixaban will start Lovenox 40 subcu daily CODE STATUS - full code Charges/Coding Visit Charges Inpatient E&M: 47886 Init Hosp L2 11/03/24 1656 <Electronically signed by Milady Tilley DO> Cosigner Signature (if applicable): CC: Dr. Milady Tilley, ; [facility]~ Signed [facility] Work Phone: Hospital Discharge instructions Additional Instructions [...] if any worsening symptoms. Take medications as prescribed.[facility] Work Phone: Hospital Discharge instructions Additional Instructions Your suprapubic cath was exchanged 18 Iraqi placed with urine output. Urine culture pending. Taking finish antibiotic as scribed. Follow-up with your urology team.[facility] Work Phone: Reason for referral (narrative)No reason for referral information availableWKettering Health [facility] Work Phone: Summary Purpose Family History No Family History Records Found Relationship Condition Age at Onset Recorded Date/T dianelys father Cerebrovascular accident (CVA) Unknown Cardiac disease Unknown Myocardial infarction Unknown Advance Directives No Advanced Directives Records Found Advance Directive Response Recorded Date/ Time Name of Medical Power of Broom Machine Operator mother and sis ter June 28, 2021 5:01am Advance Directives No June 29, 2016 2:07am Living Will No September 09, 2021 3:30pm Power of Broom Machine Operator No September 09 3:30pm Advance Directive Response Recorded Date/ Time Advance Directives No June 29, 2016 1:07am Living Will Yes May 22, 2 022 4:43pm Power of Broom Machine Operator Yes May 22, 2022 4:43pm Name of Medical Power of Broom Machine Operator milka ter May 22, 2022 4:43pm Advance Directive Response Recorded Date/ Time Name of Medical Power of Broom Machine Operator milka horner May 22, 2022 4:43pm Advance Directives No June 29, 2016 1:07am Living Will No June 06 4:21pm Power of Broom Machine Operator No June 06 023 4:21pm Advance Directive Response Recorded Date/ Time Advance Directives No June 29, 2016 2:07am Living Will Yes October 09, 2023 1 :17am Power of Broom Machine Operator Yes October 09, 2023 1:17am Name of Medical Power of Broom Machine Operator Gloria ex wif e October 09, 2023 1:17am Advance Directive Response Recorded Date/ Time Living Will No June 12 12:19am Do you have a Healthcare Pow er of Broom Machine Operator? No June 12, 2024 12:19am Living Will Yes July 14 025 8:10am Do you have a Healthcare Pow er of Broom Machine Operator? Yes July 14, 2024 8:10am Name of Medical Power of Broom Machine Operator ANTHONY PLANT July 14, 2024 8:10am Living Will Yes September 11, 2024 3:41pm Do you have a Healthcare Pow er of Broom Machine Operator? Yes September 11, 2024 3:41pm Name of Medical Power of Broom Machine Operator Marisela September 11, 2024 3:41pm Living Will Yes June 16 10:03pm Do you have a Healthcare Pow er of Broom Machine Operator? Yes June 16, 2024 10:03pm Name of Medical Power of Broom Machine Operator yudith plant w nusrat June 16, 2024 10:03pm Living Will No July 13 025 3:32am Do you have a Healthcare Pow er of Broom Machine Operator? No July 13, 2024 3:32am Advance Directives No June 29, 2016 2:07am Advance Directive Response Recorded Date/ Time Living Will Yes July 14 025 8:10am Do you have a Healthcare Power of Broom Machine Operator? Yes July 14, 2024 8:10am Name of Medical Power of Broom Machine Operator ANTHONY PLANT July 14, 2024 8:10am Living Will Yes September 11, 2024 3:41pm Do you have a Healthcare Power of Broom Machine Operator? Yes September 11, 2024 3:41pm Name of Medical Power of Broom Machine Operator Marisela September 11, 2024 3:41pm Do you have a Healthcare Power of Broom Machine Operator? Yes November 01, 2024 2:11pm Living Will No July 13 3:32am Do you have a Healthcare Power of Broom Machine Operator? No July 13, 2024 3:32am Advance Directives No June 29, 2016 2:07am Advance Directive Response Recorded Date/ Time Living Will Yes July 14 8:10am Do you have a Healthcare Power of Broom Machine Operator? Yes July 14, 2024 8:10am Name of Medical Power of Broom Machine Operator ANTHONY PLANT July 14, 2024 8:10am Living Will Yes September 11, 2024 3:41pm Do you have a Healthcare Power of Broom Machine Operator? Yes September 11, 2024 3:41pm Name of Medical Power of Broom Machine Operator Marisela September 11, 2024 3:41pm Do you have a Healthcare Power of Broom Machine Operator? Yes November 01, 2024 2:11pm Do you have a Healthcare Power of Broom Machine Operator? No November 03, 2024 2:03pm Living Will No July 13 3:32am Do you have a Healthcare Power of Broom Machine Operator? No July 13, 2024 3:32am Advance Directives No June 29, 2016 2:07am Advance Directive Response Recorded Date/ Time Living Will Yes July 14 8:10am Do you have a Healthcare Power of Broom Machine Operator? Yes July 14, 2024 8:10am Name of Medical Power of Broom Machine Operator ANTHONY PLANT July 14, 2024 8:10am Living Will Yes September 11, 2024 3:41pm Do you have a Healthcare Power of Broom Machine Operator? Yes September 11, 2024 3:41pm Name of Medical Power of Broom Machine Operator Marisela September 11, 2024 3:41pm Do you have a Healthcare Power of Broom Machine Operator? Yes November 01, 2024 2:11pm Do you have a Healthcare Power of Broom Machine Operator? Yes November 03, 2024 5:39pm Living Will No July 13 3:32am Do you have a Healthcare Power of Broom Machine Operator? No July 13, 2024 3:32am Advance Directives [...] 7 :56pm Pseudomonas urinary tract infection Mark borges 2024 7:56pm Tobacco abuse June 16, 2024 7 :56pm Weakness June 16, 2024 7 :56pm Paraplegia June 16, 2024 7 :56pm Sacral decubitus ulcer, stage III Raymundo flores 2024 7:56pm Chief Complaint Admit Date chest pain July 13, 2024 2:25am CAN'T SLEEP July 14, 2024 7:05am wounds September 11, 2024 3:3 6pm urinary November 01, 2024 2:11p m Chief Complaint Admit Date chest pain July 13, 2024 2:25am CAN'T SLEEP July 14, 2024 7:05am wounds September 11, 2024 3:3 6pm urinary November 01, 2024 2:11p m COMPLICATED PSEUDOMONAS AERUGINOSA November 03, 2024 4:12pm COMPLICATED PSEUDOMONAS AERUGINOSA November 03, 2024 4:21pm Reason for Visit Admit Date Acute paraplegia November 03, 2024 4:12p m Acute UTI November 03, 2024 4:12p m Debility November 03, 2024 4:12p m Failure of outpatient treatment October 4:12pm Nausea November 03, 2024 4:12p m Pseudomonas urinary tract infection November 03, 2024 4:12pm Chronic suprapubic catheter November 03 4:12pm Chief Complaint Admit Date chest pain July 13, 2024 2:25am CAN'T SLEEP July 14, 2024 7:05am wounds September 11, 2024 3:3 6pm urinary November 01, 2024 2:11p m COMPLICATED PSEUDOMONAS AERUGINOSA November 03, 2024 4:21pm COMPLICATED PSEUDOMONAS AERUGINOSA November 04, 2024 1:24pm COMPLICATED PSEUDOMONAS AERUGINOSA November 04, 2024 5:06pm COMPLICATED PSEUDOMONAS AERUGINOSA November 05, 2024 7:46am Reason for Visit Admit Date Acute paraplegia November 04, 2024 5:06p m Acute UTI November 04, 2024 5:06p m Debility November 04, 2024 5:06p m Failure of outpatient treatment October 5:06pm Nausea November 04, 2024 5:06p m Pseudomonas urinary tract infection November 04, 2024 5:06pm Chronic suprapubic catheter November 04 5:06pm Paraplegia November 04, 2024 5:06p m Additional Source Comments (unrecognized sect ion and content) No Status Records FoundNo Status Records FoundNo Status Records FoundNo Status Records Found INFORMATION SOURCE (unrecogn ized section and content) DATE CREATED AUTHOR 11/20/2017 [facility] DATE CREATED AUTHOR AUTHOR'S ORGANIZ ATION 11/21/2017 [facility] [place] DATE CREATED AUTHOR AUTHOR'S ORGANIZ ATION 05/11/2024 [facility] DATE CREATED AUTHOR AUTHOR'S ORGANIZ ATION 11/18/2024 [facility] Goals (unrecognized section and content) Goals may be documented in a n alternate sectionGoals may be documented in an alternate sectionGoals may be documented in an alternate sectionGoals may be documented in an alternate sectionGoals may be documented in an alternate sectionGoals may be documented in an alternate section Care Teams (unrecognized sec tion and content) Team Status: Active Member Role Status Dates [facility] Family Provider Active [facility] Primary Care Provider Active Team Status: Inactive Member Role Status Dates [facility] Primary Care Provider Active Dr. 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 Alma Rosa Pedroza DO Emergency Provider Active S tart: June 12, 2024 Dr. Ronak Quiroz DO Admit Provider Active Start: June 12, 2024 Dr. Ronak Quiroz DO Other Provider Active Start: June 12, 2024 Dr. Darian Arceo MD Attending Provider Active Start: June 12, 2024 Dr. Darian Areco MD Other Provider Active Sta rt: June 12, 2024 Team Status: Active Member Role Status Dates [facility] Primary Care Provider Active Start: June [...] Team Status: Active Member Role Status Dates [facility] Primary Care Provider Active Start: June [...] Team Status: Inactive Member Role Status Dates [facility] Primary Care Provider Active Start: June [...] Team Status: Active Member Role Status Dates [facility] Primary Care Provider Active Start: June [...] Team Status: Active Member Role Status Dates [facility] Primary Care Provider Active Start: June [...] Team Status: Active Member Role Status Dates [facility] Primary Care Provider Active Start: June [...] Team Status: Inactive Member Role Status Dates [facility] Primary Care Provider Active Start: July 13, 2024 End: July 13, 2024 Dr. Richie Borden DO Attending Provider Active Start: July 13, 2024 End: July 13, 2024 Dr. Richie Borden DO Emergency Provider Active Start: July 13, 2024 End: July 13, 2024 Team Status: Inactive Member Role Status Dates [facility] Primary Care Provider Active Start: July 14, 2024 End: July 14, 2024 Dr. Rico Moore , Attending Provider Active Start: July 14, 2024 End: July 14, 2024 Dr. Rico Moore DO Emergency Provider Active Start: July 14, 2024 End: July 14, 2024 Team Status: Inactive Member Role Status Dates [facility] Primary Care Provider Active Start: September 11, 2024 End: September 12, 2024 Dr. Adan Bell , Emergency Provider Active Start: September 11, 2024 End: September 12, 2024 Team Status: Inactive Member Role Status Dates [facility] Primary Care Provider Active Start: September 11, 2024 End: September 12, 2024 Dr. Adan Bell DO Attending Provider Active Start: September 11, 2024 End: September 12, 2024 Dr. Adan Bell DO Emergency Provider Active Start: September 11, 2024 End: September 12, 2024 Team Status: Inactive Member Role Status Dates [facility] Primary Care Provider Active Start: November 01, 2024 End: November 01, 2024 Dr. Zhang Chavez , Emergency Provider Active Start : November 01, 2024 End: November 01, 2024 Team Status: Active Member Role Status Dates [facility] Primary Care Provider Active Start: November 03, 2024 Dr. Alma Rosa Pedroza DO Emergency Provider Active S tart: November 03, 2024 Dr. Milady Tilley , Admit Provider Active Start : November 03, 2024 Dr. Milady Tilley , Attending Provider Active S tart: November 03, 2024 Team Status: Active Member Role Status Dates [facility] Primary Care Provider Active Start: November 03, 2024 Dr. Alma Rosa Pedroza DO Emergency Provider Active S tart: November 03, 2024 Dr. Milady Tilley , Admit Provider Active Start : November 03, 2024 Dr. Milady Tilley , Attending Provider Active S tart: November 03, 2024 Dr. Milady Tilley , DO Other Provider Active Start : November 03, 2024 Team Status: Active Member Role Status Dates [facility] Primary Care Provider Active Start: November 04, 2024 Dr. Alma Rosa Pedroza DO Emergency Provider Active S tart: November 04, 2024 Dr. Milady Tilley DO Admit Provider Active Start : November 04, 2024 Dr. Milady Tilley DO Other Provider Active Start : November 04, 2024 Dr. Adan Schneider DO Attending Provider Active Start: November 04, 2024 Dr. Adan Schneider DO Other Provider Active Star t: November 04, 2024 Dr. Maulik Jenkins MD Other Provider Active Start: November 04, 2024 Team Status: Inactive Member Role Status Dates [facility] Primary Care Provider Active Start: November 04, 2024 End: November 05, 2024 Dr. Alma Rosa Pedroza DO Emergency Provider Active S tart: November 04, 2024 End: November 05, 2024 Dr. Milady Tilley DO Admit Provider Active Start : November 04, 2024 End: November 05, 2024 Dr. Milady Tilley DO Other Provider Active Start : November 04, 2024 End: November 05, 2024 Dr. Adan Schneider DO Attending Provider Active Start: November 04, 2024 End: November 05, 2024 Dr. Maulik Jenkins MD Other Provider Active Start: November 04, 2024 End: November 05, 2024 Team Status: Active Member Role Status Dates [facility] Primary Care Provider Active Start: November 05, 2024 Dr. Alma Rosa Pedroza DO Emergency Provider Active S tart: November 05, 2024 Dr. Milady Tilley DO Admit Provider Active Start : November 05, 2024 Dr. Milady Tilley DO Other Provider Active Start : November 05, 2024 Dr. Adan Schneider DO Attending Provider Active Start: November 05, 2024 Dr. Adan Schneider DO Other Provider Active Star t: November 05, 2024 Dr. Maulik Jenkins MD Other Provider Active Start: November 05, 2024 Source Comments (unrecognize d section and content) In the event this informatio n is protected by the Federal Confidentiality of Alcohol and Drug Abuse Patient Records regulations: The Federal rules restrict any use of the information to criminally investigate or prosecute any alcohol or drug abuse patient.[facility] FOR RECORDS PERTAINING TO PATIENTS WHO ARE [...] BE BASED ON THE PRIMARY CLINICAL RECORDS. [employer] provides no warranty or guarantee of the accuracy or completeness of information in this document.
[2024-11-30 07:37] LABS: Hematocrit 39.7 % (40-54); Hemoglobin 12.7 g/dL (13.0-16.5); Immature Granulocytes Count 0.070 X10^3/uL (0.0-0.0); Mean Corp Hgb Conc 32.0 g/dL (32-36); Mean Corpuscular Volume 77.4 fL (80-94); Mean Platelet Vol. 8.8 fl (6.2-12.0); NRBC Flagged by Analyzer 0 % (0-5); Platelet Count 407 K/mm3 (150-450); RBC Distribution Width CV 17.4 % (11.6-14.6); RBC Distribution Width SD 49.1 fl (35.1-43.9); Red Blood Count 5.13 M/mm3 (4.6-6.2); White Blood Count 12.6 K/mm3 (4.4-11.0)
--- NOTE | 2024-11-30 08:05 | RAD_ITS ---
EXAM: XR Chest, 1 View CLINICAL INDICATION: CHEST PAIN TECHNIQUE: Frontal view of the chest. COMPARISON: No relevant prior studies available. FINDINGS: LUNGS AND PLEURAL SPACES: Unremarkable. No consolidation. No pneumothorax. HEART: Unremarkable. No cardiomegaly. MEDIASTINUM: Unremarkable. Normal mediastinal contour. BONES/JOINTS: Unremarkable. No acute fracture. RAD/Chest 1 View (Portable) IMPRESSION: No acute cardiopulmonary process. Reading Location: [id number]
[2024-11-30 08:58] LABS: Anion Gap 13 (5-15); BUN 18 mg/dL (4-19); BUN/Creat Ratio 27.8 RATIO (10-20); Calcium,Total 9.2 mg/dL (7.6-11.0); Carbon Dioxide 22.3 mmol/L (21.0-32.0); Chloride 103 mmol/L (98-108); Estimated Creatinine Clearance 118.14 ml/min (50-250); Glucose 129 mg/dL (70-99); Potassium 4.1 mmol/L (3.3-5.1); Troponin T High Sensitivity 32 ng/L (<=22)
[2024-11-30 10:53] LABS: Troponin T High Sens 2 HR 23 ng/L (<=22)
[2024-11-30 15:37] LABS: Color, Urine Yellow (Yellow); Glucose, Dipstick Normal (Normal); Ketone-Dipstick 50 mg/dl (Negative); Leukocyte Esterase-Dipstick 500 /ul (Negative); Nitrite-Dipstick Negative (Negative); Occult Blood-Urine 150 /ul (Negative); Protein-Dipstick 30 mg/dl (Negative); Specific Gravity, Urine 1.025 (1.002-1.030); Urine Bilirubin Dipstick Negative (Negative)
[2024-11-30 15:49] LABS: Mucous, Urine 1+ /hpf (<or=2+); Red Blood Cells-Urine 0-5 SEEN /hpf (0-5); Squamous Epithelial Cells - UA 0-5 SEEN /hpf (0-5)
[2024-11-30 15:50] LABS: Yeast-Urine 2+ /hpf (None Seen)
--- OUTSIDE RECORDS SUMMARY | 2024-11-30 16:26 | XMS RPT_ITS | CCD ---
Author Organization [facility] Care Team Providers Care Sub Master Name Role Phone PROVIDER, UNKNOWN Unavailable Unavailable No, PCP Unavailable Unavailable Gajulapalli, Chivo Unavailable Unavailable [facility] Unavailable Unavail able [facility] Unavailable Unavail able [facility] Unavailable Unavail able [facility] Unavailable Unavail able [facility] Unavailable Unavail able [place], [place] Primary Care Provider UnavailDr. Adan Santa Emergency Provider Dr. Lorraine Quinonez Admit Provider Dr. Lorraine Quinonez Referring Provider Dr. Zackary Costello Other Provider Dr. John Ponce Other Provider Dr. Alberto Candelario Attending Provider Dr. John Ponce Attending Provider JAMEY HUYNH Primary Care UnavailJamey Weiss MD Primary Care Provider [place] Primary Care Provider UnavailDr. Alma Rosa Isaacs DO Emergency Provider [phone] Dr. Ronak Quiroz DO Admit Provider Unavail able Dr. Ronak Quiroz DO Other Provider Unavail able Adis MARR, Dr. Farmer Attending Provider Dr. Maulik Jenkins MD Other Provider [place] Primary Care Provider UnavailDr. Darian Park MD Other Provider Dr. Christian Merlos MD Emergency Provider Dr. Richie Borden DO Attending Provider Dr. Richie Borden DO Emergency Provider Oscar NARVAEZ, Dr. Gómez Attending Provider Oscar NARVAEZ, Dr. Gómez Emergency Provider Ray NARVAEZ, Dr. Arellano Emergency Provider [facility], [place] Primary Care Provider Unavailabl e Ray NARVAEZ, Dr. Arellano Attending Provider Kathy NARVAEZ, Dr. Holcomb Emergency Provider Ungelizabeth DO, Dr. St Emergency Provider Jarek NARVAEZ, Dr. Henning Admit Provider Jarek NARVAEZ, Dr. Henning Attending Provider [facility], [place] Primary Care Provider Unavailabl e Jarek NARVAEZ, [...] Jenkins Consulting Unavailable Adan Bell Attending Unavailable [facility], [place] Primary Care Unavailable Hema Jean-Baptiste [facility] [place] [facility] Un[facility] Zhang Chavez Attending [facility] [facility] [facility] Unavailable Milady Tilley Consulting Unavailable Milady Tilley Admitting Unavailable Milady Tilley Attending Unavailable [facility] Primary [place] Unavailable Adan Schneider Attending Unavailable Maulik Jenkins Consulting Unavailable Adan Schneider Consulting Unavailable Adan Schneider Attending Unavailable Milady Tilley Consulting Unavailable Milady Tilley Admitting [place]available [facility] [facility] Unavailable Maulik Jenkins Unavailable Adan [...] 03, 2024 7:54pm On Hold: not confirmed Kjyic-Aovt-Uirpd -Ezuqpq-Kr-Wpq (Mamadou (With Collagen)) 1 PACKET Packet (8 sources) Start: 03-22-2017 End: 05-01-2017 take 1 dose by mouth twice daily at mealtime Cliwf-Rqkn-Bdokv-Co llag-Mv-Min (Mamadou (With Collagen)) 1 PACKET Packet Discontinued 1 PACKET PO TWICE DAILY WITH MEALS March 22, 2017 1:37pm May 01, 2017 12:37pm Start: 03-22-2017 End: 05-01-2017 take 1 dose by mouth twice daily at mealtime Qotaq-Vkew-Suosf-Jvieew-Za-Dkf (Mamadou (W ith Collagen)) 1 PACKET Packet Discontinued 1 NMA PO TWICE DAILY WITH MEALS March 22, 2017 12:00am May 01, 2017 12:37pm Start: 03-22-2017 End: 05-01-2017 take 1 dose by mouth twice daily at mealtime Lhfeu-Gmjk-Klrrp-Ptkhuh-Lc-Kms (Mamadou (W ith Collagen)) 1 PACKET Packet Discontinued 1 PACKET PO TWICE DAILY WITH MEALS March 22, 2017 12:00am May 01, 2017 12:37pm Start: 03-22-2017 End: 05-01-2017 take 1 dose by mouth twice daily at mealtime Jqkdy-Qjmd-Eudcd-Grcrhv-Os-Qnt (Mamadou (W ith Collagen)) 1 PACKET Packet [...] 19, 2013 1:00am take 1 capsule by [facility] three times daily gabapentin (NEURONTIN) 400 [...] beta Lactamase Inhibitor Start: 06-14-2024 End: 06-19-2024 Sgasmkcayeju-Chwbdhntys-Pyqr rs (Zosyn In Dextrose (Iso-Osm)) 3.375 gram/50 mL piggyback Discontinued 3.375 g IV Q8H June 14, 2024 1:00am June 19, 2024 12:42pm dx: pseudomonas infection. Midline care per protocol. Start: 03-16-2017 End: 05-01-2017 take 3.375 g intravenously every six hours Xkllbxqwhgak-Jcamssmueb-Ecrghv (Zosyn) 3.375 GM/50 ML Ml Discontinued 3.375 [...] Coronary atherosclerosis; Translations: [Atherosclerotic heart disease of [place] coronary artery without angina pectoris] 06-28-2021 Chronic [...] Auto (Unsp spec) [#/Vol] 1.95 10*3/uL 0.83-4.51 Absolute neutrophil countOrd ered By: Milady Tilley on 11-04-2024 Neutrophils (Bld) [#/Vol] 4.6 10*3/uL 2.0-7.7 Anion gap in Serum or Plasma Ordered By: Milady Tilley on 11-04-2024 Anion gap [Moles/Vol] 11 mmol/L 5-15 [facility] Automated lymphocyte count a s percentage of total leukocytesOrdered By: Milady Tilley on 11-04-2024 Lymphocytes/100 WBC Auto (Unsp spec) 25.3 % 19-41 BUN/creatinine ratioOrdered By: Milady Tilley on 11-04-2024 Urea nitrogen/Creatinine [Mass ratio] 22.2 mg/mg High 10-20 Basophil percentageOrdered B y: Milady Tilley on 11-04-2024 Basophils/100 WBC (Bld) 0.4 % 0-1 [facility] Bilirubin, totalOrdered By: Milady Tilley on 11-04-2024 Bilirubin [Mass/Vol] mg/dL 0.00-1.30 [facility] CBC W/Diff, Automatedon 06-0 9-2025 Absolute Lymph 1.95 X10 3/uL Normal 0.83-4.51 Comment on above: Performed By: #### L 501.2300, L501.5200, L500.4050, L100.0100 #### [id number] [place], [address] Absolute Neut 4.6 X10 3/uL Normal 2.0-7.7 Comment on above: Performed By: #### L 501.2300, L501.5200, L500.4050, L100.0100 #### [address] [place], [address] Basophils/100 WBC (Bld) 0.4 % Normal 0-1 [facility] Comment on above: Performed By: #### L 501.2300, L501.5200, L500.4050, L100.0100 #### [address] [place], [address] Eosinophils/100 WBC (Bld) 2.6 % Normal 0-5 Comment on above: Performed By: #### L 501.2300, L501.5200, L500.4050, L100.0100 #### [address] [place], [address] Erythrocyte distribution width (RBC) [Ratio] 18.0 % High 11.6-14.6 Comment on above: Performed By: #### L 501.2300, L501.5200, L500.4050, L100.0100 #### [address] [place], [address] Hematocrit (Bld) [Volume fraction] 34.3 % Low 40-54 Comment on above: Performed By: #### L 501.2300, L501.5200, L500.4050, L100.0100 #### [address] [place], [address] Hemoglobin (Bld) [Mass/Vol] 10.9 g/dL Low 13.0-16. 5 Comment on above: Performed By: #### L 501.2300, L501.5200, L500.4050, L100.0100 #### [address] [place], [address] IG% 0.300 Normal 0.0-0.9 Comment on above: Result Comment: IG% - Immature Granulocytes (promyelocytes, myelocytes andmetamyelocytes) > 1% indicates that a LEFT SHIFT is Present. Performed By: #### L 501.2300, L501.5200, L500.4050, L100.0100 #### [address] [place], [address] Lymphocytes/100 WBC (Bld) 25.3 % Normal 19-41 Comment on above: Performed By: #### L 501.2300, L501.5200, L500.4050, L100.0100 #### [address] [place], [address] MCH (RBC) [Entitic mass] 24.9 pg Low 27.0-32.0 Comment on above: Performed By: #### L 501.2300, L501.5200, L500.4050, L100.0100 #### [address] [place], [address] MCHC (RBC) [Mass/Vol] 31.8 g/dL Low 32-36 [facility] Comment on above: Performed By: #### L 501.2300, L501.5200, L500.4050, L100.0100 #### [address] [place], [address] MCV (RBC) [Entitic vol] 78.3 fL Low 80-94 [facility] Comment on above: Performed By: #### L 501.2300, L501.5200, L500.4050, L100.0100 #### [address] [place], [address] Monocytes/100 WBC (Bld) 11.7 % High 0-10 [facility] Comment on above: Performed By: #### L 501.2300, L501.5200, L500.4050, L100.0100 #### [address] [place], [address] Neutrophils/100 WBC (Bld) 59.7 % Normal 47-70 Comment on above: Performed By: #### L 501.2300, L501.5200, L500.4050, L100.0100 #### [address] [place], [address] Nucleated RBC (Bld) [#/Vol] 0 10*3/uL Normal 0-5 Comment on above: Performed By: #### L 501.2300, L501.5200, L500.4050, L100.0100 #### [address] [place], [address] Platelet mean volume (Bld) [Entitic vol] 9.0 fL Normal 6.2-12.0 Comment on above: Performed By: #### L 501.2300, L501.5200, L500.4050, L100.0100 #### [address] [place], [address] Platelets (Bld) [#/Vol] 297 10*3/uL Normal 150-450 Comment on above: Performed By: #### L 501.2300, L501.5200, L500.4050, L100.0100 #### [address] [place], [address] RBC (Bld) [#/Vol] 4.38 10*6/uL Low 4.6-6.2 [facility] Comment on above: Performed By: #### L 501.2300, L501.5200, L500.4050, L100.0100 #### [address] [place], [address] RDW SD 51.3 fl High 35.1-43.9 Comment on above: Performed By: #### L 501.2300, L501.5200, L500.4050, L100.0100 #### [address] [place], [address] WBC (Bld) [#/Vol] 7.7 10*3/uL Normal 4.4-11.0 [facility] Comment on above: Performed By: #### L 501.2300, L501.5200, L500.4050, L100.0100 #### [address] [place], [address] Carbon dioxide, total [Moles /volume] in Central venous bloodOrdered By: Milady Tilley on 11-04-2024 CO2 [Moles/Vol] 23.4 mmol/L 21.0-32.0 Chloride assayOrdered By: Kaitlyn Tilley on 11-04-2024 Chloride [Moles/Vol] 106 mmol/L 98-108 [facility] Comprehensive Metabolic Prof ilon 11-04-2024 Albumin [Mass/Vol] 2.7 g/dL Low 3.4-4.8 [facility] Comment on above: Performed By: #### L 501.2300, L501.5200, L500.4050, L100.0100 #### [address] [place], [address] Albumin/Globulin [Mass ratio] 0.9 {ratio} Normal 0.9-2.4 Comment on above: Performed By: #### L 501.2300, L501.5200, L500.4050, L100.0100 #### [address] [place], [address] ALK PHOS 108 U/L Normal 40-129 Comment on above: Performed By: #### L 501.2300, L501.5200, L500.4050, L100.0100 #### [address] [place], [address] ALT [Catalytic activity/Vol] 6 U/L Normal <=46 Comment on above: Performed By: #### L 501.2300, L501.5200, L500.4050, L100.0100 #### [address] [place], [address] AST [Catalytic activity/Vol] 14 U/L Normal <=37 Comment on above: Performed By: #### L 501.2300, L501.5200, L500.4050, L100.0100 #### [address] [place], [address] BUN/CRE 22.2 RATIO High 10-20 Comment on above: Performed By: #### L 501.2300, L501.5200, L500.4050, L100.0100 #### [address] [place], [address] Calcium [Mass/Vol] 8.4 mg/dL Normal 7.6-11.0 [facility] Comment on above: Performed By: #### L 501.2300, L501.5200, L500.4050, L100.0100 #### [address] [place], [address] Chloride [Moles/Vol] 106 mmol/L Normal 98-108 [facility] Comment on above: Performed By: #### L 501.2300, L501.5200, L500.4050, L100.0100 #### [address] [place], [address] CO2 [Moles/Vol] 23.4 mmol/L Normal 21.0-32.0 Comment on above: Performed By: #### L 501.2300, L501.5200, L500.4050, L100.0100 #### [address] [place], [address] Creatinine [Mass/Vol] 0.68 mg/dL Low 0.70-1.20 [facility] Comment on above: Performed By: #### L 501.2300, L501.5200, L500.4050, L100.0100 #### [address] [place], [address] ECRCL 111.19 ml/min Normal 50-250 Comment on above: Performed By: #### L 501.2300, L501.5200, L500.4050, L100.0100 #### [address] [place], [address] GAP 11 Normal 5-15 Comment on above: Performed By: #### L 501.2300, L501.5200, L500.4050, L100.0100 #### [address] [place], [address] GFR/1.73 sq M.predicted among non-blacks MDRD (S/P/Bld) [Vol rate/Area] 104 mL/min/{1.73_m2} Normal >60 [facility] Comment on above: Result Comment: mL/m in/1.73m2 CKD-EPI Creatinine Equation (2020) Performed By: #### L 501.2300, L501.5200, L500.4050, L100.0100 #### [address] [place], [address] Globulin (S) [Mass/Vol] 3.1 g/dL Normal 2.2-4.2 [facility] Comment on above: Performed By: #### L 501.2300, L501.5200, L500.4050, L100.0100 #### [address] [place], [address] Glucose [Mass/Vol] 139 mg/dL High 70-99 [facility] Comment on above: Performed By: #### L 501.2300, L501.5200, L500.4050, L100.0100 #### [address] [place], [address] Potassium [Moles/Vol] 3.5 mmol/L Normal 3.3-5.1 [facility] Comment on above: Performed By: #### L 501.2300, L501.5200, L500.4050, L100.0100 #### [address] [place], [address] Sodium [Moles/Vol] 140 mmol/L Normal 133-145 [facility] Comment on above: Performed By: #### L 501.2300, L501.5200, L500.4050, L100.0100 #### [address] [place], [address] T BILI < 0.15 Normal 0.00-1.30 Comment on above: Performed By: #### L 501.2300, L501.5200, L500.4050, L100.0100 #### [address] [place], [address] T PROT 5.9 g/dL Normal 5.9-8.4 Comment on above: Performed By: #### L 501.2300, L501.5200, L500.4050, L100.0100 #### [address] [place], [address] Urea nitrogen [Mass/Vol] 15 mg/dL Normal 4-19 Comment on above: Performed By: #### L 501.2300, L501.5200, L500.4050, L100.0100 #### [address] [place], [address] Consultation - Infectious Dx on 11-04-2024 Consultation - Infectious Dx Normal Electrocardiogram reportOrde red By: Hetal Carrington on 11-04-2024 EKG study [facility] [address] [place] [address] 12 Lead EKG 11/03/24 1226 MR#: [id number] Acct: [id number] Name: BAUTISTA RUFFIN Rep #:[id number] : 1960 64 From: Hetal live MD Attending Dr: Dr. Adan Schneider, DO Status: ADM SERGIO Ordering Dr: Alma Rosa Pedroza DO Date: 01/20 Location: [facility] Sex: M C Admitted: 11/03/24 Test Reason : Blood Pressure : */* mmHG Vent. Rate : 70 BPM Atrial Rate : 70 BPM P-R Int : 158 ms QRS Dur : 94 ms QT Int : 422 ms P-R-T Axes : 49 65 78 degrees QTcB Int : 455 ms Normal sinus rhythm Normal ECG Confirmed by Hetal Carrington ([id number]), video effects editor AMADO RASHID ([id number]) on 11/04/2024 9:37:41 AM Referred By: Confirmed By: Hetal Carrington 11/04/24 0937 Date _ Hetal Carrington MD CC: Dr. Adan Schneider, DO; Dr. Alma Rosa Pedroza, DO; [facility] ~ Signed Other Phone: Eosinophil percentageOrdered By: Milady Tilley on 11-04-2024 Eosinophils/100 WBC (Bld) 2.6 % 0-5 Erythrocyte distribution wid th ratioOrdered By: Milady Tilley on 11-04-2024 Erythrocyte distribution width (RBC) [Ratio] 18.0 % High 11.6-14.6 Erythrocyte distribution wid th standard deviationOrdered By: Milady Tilley on 11-04-2024 Erythrocyte distribution width (RBC) [Ratio] 51.3 fl High 35.1-43.9 Glomerular filtration rate ( GFR) estimation/1.73 sq m using serum, plasma, or whole bOrdered By: Milady Tilley on 11-04-2024 GFR/1.73 sq M.predicted among non-blacks MDRD (S/P/Bld) [Vol rate/Area] 104 mL/min/{1.73_m2} >60 [facility] Comment on above: mL/min/1.73m2 CKD-EP I Creatinine Equation (2020) Hematocrit Auto (Bld) [Volum e fraction]Ordered By: Milady Tilley on 11-04-2024 Hematocrit (Bld) [Volume fraction] 34.3 % Low 40-54 Hemoglobin measurementOrdere d By: Milady Tilley on 11-04-2024 Hemoglobin (Bld) [Mass/Vol] 10.9 g/dL Low 13.0-16. 5 Immature granulocytes/100 WB C Auto (Bld)Ordered By: Milady Tilley on 11-04-2024 Immature granulocytes/100 WBC (Bld) 0.300 % 0.0-0.9 Comment on above: IG% - Immature Granu locytes (promyelocytes, myelocytes and metamyelocytes) > 1% indicates that a LEFT SHIFT is Present. Laboratory - Chemistry and C hemistry - challengeOrdered By: Milady Tilley on 11-04-2024 AST [Catalytic activity/Vol] 14 U/L <38 MCV (mean corpuscular volume ) determinationOrdered By: Milady Tilley on 11-04-2024 MCV (RBC) [Entitic vol] 78.3 fL Low 80-94 [facility] Magnesiumon 11-04-2024 Magnesium [Mass/Vol] 1.9 mg/dL Normal 1.5-2.2 [facility] Comment on above: Performed By: #### L 501.2300, L501.5200, L500.4050, L100.0100 #### [address] [place], [address] Magnesium measurement (mass/ volume)Ordered By: Milady Tilley on 11-04-2024 Magnesium (Unsp spec) [Mass/Vol] 1.9 mg/dL 1.5-2.2 Mean corpuscular hemoglobin (MCH) determinationOrdered By: Milady Tilley on 11-04-2024 MCH (RBC) [Entitic mass] 24.9 pg Low 27.0-32.0 Mean corpuscular hemoglobin concentration (MCHC) determinationOrdered By: Milady Tilley on 11-04-2024 MCHC (RBC) [Mass/Vol] 31.8 g/dL Low 32-36 [facility] Mean platelet volume determi nationOrdered By: Milady Tilley on 11-04-2024 Platelet mean volume (Bld) [Entitic vol] 9.0 fL 6.2-12.0 Monocyte percentageOrdered B y: Milady Tilley on 11-04-2024 Monocytes/100 WBC (Bld) 11.7 % High 0-10 [facility] Neutrophil percentageOrdered By: Milady Tilley on 11-04-2024 Neutrophils/100 WBC (Bld) 59.7 % 47-70 Nucleated red blood cell per centageOrdered By: Milady Tilley on 11-04-2024 Nucleated RBC/100 WBC (Bld) [Ratio] 0 % 0-5 Phosphoruson 11-04-2024 Phosphate [Mass/Vol] 3.1 mg/dL Normal 2.7-4.5 [facility] Comment on above: Performed By: #### L 501.2300, L501.5200, L500.4050, L100.0100 #### [address] [place], [address] Platelet countOrdered By: Kaitlyn Tilley on 11-04-2024 Platelets (Bld) [#/Vol] 297 10*3/uL 150-450 Potassium measurement (mass/ volume)Ordered By: Milady Tilley on 11-04-2024 Potassium (Unsp spec) [Mass/Vol] 3.5 mmol/L 3.3-5.1 RBC Auto (Bld) [#/Vol]Ordere d By: Milady Tilley on 11-04-2024 RBC (Bld) [#/Vol] 4.38 10*6/uL Low 4.6-6.2 [facility] Serum creatinine measurement (mass/volume)Ordered By: Milady Tilley on 11-04-2024 Creatinine [Mass/Vol] 0.68 mg/dL Low 0.70-1.20 [facility] Serum globulin measurementOr dered By: Milady Tilley on 11-04-2024 Globulin (S) [Mass/Vol] 3.1 g/dL 2.2-4.2 [facility] Serum glucose measurement (m ass/volume)Ordered By: Milady Tilley on 11-04-2024 Glucose [Mass/Vol] 139 mg/dL High 70-99 [facility] Serum or plasma alanine hooper otransferase (ALT) measurementOrdered By: Milady Tilley on 11-04-2024 ALT [Catalytic activity/Vol] 6 U/L <47 Serum or plasma albumin shantal urement (mass/volume)Ordered By: Milady Tilley on 11-04-2024 Albumin [Mass/Vol] 2.7 g/dL Low 3.4-4.8 [facility] Serum or plasma albumin/glob ulin mass ratioOrdered By: Milady Tilley on 11-04-2024 Albumin/Globulin [Mass ratio] 0.9 {ratio} 0.9-2.4 Serum or plasma alkaline radha sphatase measurementOrdered By: Milady Tilley on 11-04-2024 ALP [Catalytic activity/Vol] 108 U/L 40-129 Serum or plasma calcium shantal urement (mass/volume)Ordered By: Milady Tilley on 11-04-2024 Calcium [Mass/Vol] 8.4 mg/dL 7.6-11.0 [facility] Serum or plasma urea nitroge n measurement (mass/volume)Ordered By: Milady Tilley on 11-04-2024 Urea nitrogen [Mass/Vol] 15 mg/dL 4-19 Sodium levelOrdered By: Cleo Tilley on 11-04-2024 Sodium [Moles/Vol] 140 mmol/L 133-145 [facility] Total proteinOrdered By: Yumi Tilley on 11-04-2024 Protein [Mass/Vol] 5.9 g/dL 5.9-8.4 [facility] Urine Cultureon 11-04-2024 [facility] Normal Comment on above: Performed By: #### M 100.2200, L400.0001 #### [address] [place], [address] White blood cell (WBC) count Ordered By: Milady Tilley on 11-04-2024 WBC (Bld) [#/Vol] 7.7 10*3/uL 4.4-11.0 [facility] 12 Lead EKGon 11-03-2024 12 Lead EKG Normal Abdomen/Pelvis W IV Cont ONL Yon 11-03-2024 Abdomen/Pelvis W IV Cont ONLY Normal Absolute lymphocyte countOrd ered By: Remus Ungelizabeth on 11-03-2024 Lymphocytes Auto (Unsp spec) [#/Vol] 2.10 10*3/uL 0.83-4.51 Absolute neutrophil countOrd ered By: Remus Ungur on 11-03-2024 Neutrophils (Bld) [#/Vol] 6.5 10*3/uL 2.0-7.7 Anion gap in Serum or Plasma Ordered By: Remus Ungur on 11-03-2024 Anion gap [Moles/Vol] 12 mmol/L 5-15 [facility] Automated lymphocyte count a s percentage of total leukocytesOrdered By: Remus Ungelizabeth on 11-03-2024 Lymphocytes/100 WBC Auto (Unsp spec) 22.5 % 19-41 BUN/creatinine ratioOrdered By: Remus Ungur on 11-03-2024 Urea nitrogen/Creatinine [Mass ratio] 21.4 mg/mg High 10-20 Basophil percentageOrdered B y: Remus Ungur on 11-03-2024 Basophils/100 WBC (Bld) 0.3 % 0-1 [facility] Bilirubin, totalOrdered By: Remus Ungelizabeth on 11-03-2024 Bilirubin [Mass/Vol] 0.24 mg/dL 0.00-1.30 [facility] CBC W/Diff, Automatedon Absolute Lymph 2.10 X10 3/uL Normal 0.83-4.51 Comment on above: Performed By: #### L 503.6005, L500.4050, L100.0100, L501.2450, L501.4021 #### [address] [place], [address] Absolute Neut 6.5 X10 3/uL Normal 2.0-7.7 Comment on above: Performed By: #### L 503.6005, L500.4050, L100.0100, L501.2450, L501.4021 #### [address] [place], [address] Basophils/100 WBC (Bld) 0.3 % Normal 0-1 [facility] Comment on above: Performed By: #### L 503.6005, L500.4050, L100.0100, L501.2450, L501.4021 #### [address] [place], [address] Eosinophils/100 WBC (Bld) 0.9 % Normal 0-5 Comment on above: Performed By: #### L 503.6005, L500.4050, L100.0100, L501.2450, L501.4021 #### [address] [place], [address] Erythrocyte distribution width (RBC) [Ratio] 18.3 % High 11.6-14.6 Comment on above: Performed By: #### L 503.6005, L500.4050, L100.0100, L501.2450, L501.4021 #### [address] [place], [address] Hematocrit (Bld) [Volume fraction] 42.4 % Normal 40-54 Comment on above: Performed By: #### L 503.6005, L500.4050, L100.0100, L501.2450, L501.4021 #### [address] [place], [address] Hemoglobin (Bld) [Mass/Vol] 13.5 g/dL Normal 13.0-16. 5 Comment on above: Performed By: #### L 503.6005, L500.4050, L100.0100, L501.2450, L501.4021 #### [address] [place], [address] IG% 0.200 Normal 0.0-0.9 Comment on above: Result Comment: IG% - Immature Granulocytes (promyelocytes, myelocytes andmetamyelocytes) > 1% indicates that a LEFT SHIFT is Present. Performed By: #### L 503.6005, L500.4050, L100.0100, L501.2450, L501.4021 #### [address] [place], [address] Lymphocytes/100 WBC (Bld) 22.5 % Normal 19-41 Comment on above: Performed By: #### L 503.6005, L500.4050, L100.0100, L501.2450, L501.4021 #### [id number] [place], [address] MCH (RBC) [Entitic mass] 25.0 pg Low 27.0-32.0 Comment on above: Performed By: #### L 503.6005, L500.4050, L100.0100, L501.2450, L501.4021 #### [id number] [place], [address] MCHC (RBC) [Mass/Vol] 31.8 g/dL Low 32-36 [facility] Comment on above: Performed By: #### L 503.6005, L500.4050, L100.0100, L501.2450, L501.4021 #### [id number] [place], [address] MCV (RBC) [Entitic vol] 78.7 fL Low 80-94 [facility] Comment on above: Performed By: #### L 503.6005, L500.4050, L100.0100, L501.2450, L501.4021 #### [id number] [place], [address] Monocytes/100 WBC (Bld) 6.7 % Normal 0-10 [facility] Comment on above: Performed By: #### L 503.6005, L500.4050, L100.0100, L501.2450, L501.4021 #### [id number] [place], [address] Neutrophils/100 WBC (Bld) 69.4 % Normal 47-70 Comment on above: Performed By: #### L 503.6005, L500.4050, L100.0100, L501.2450, L501.4021 #### [id number] [place], [address] Nucleated RBC (Bld) [#/Vol] 0 10*3/uL Normal 0-5 Comment on above: Performed By: #### L 503.6005, L500.4050, L100.0100, L501.2450, L501.4021 #### [id number] [place], [address] Platelet mean volume (Bld) [Entitic vol] 9.0 fL Normal 6.2-12.0 Comment on above: Performed By: #### L 503.6005, L500.4050, L100.0100, L501.2450, L501.4021 #### [id number] [place], [address] Platelets (Bld) [#/Vol] 364 10*3/uL Normal 150-450 Comment on above: Performed By: #### L 503.6005, L500.4050, L100.0100, L501.2450, L501.4021 #### [id number] [place], [address] RBC (Bld) [#/Vol] 5.39 10*6/uL Normal 4.6-6.2 [facility] Comment on above: Performed By: #### L 503.6005, L500.4050, L100.0100, L501.2450, L501.4021 #### [address] [place], [address] RDW SD 50.6 fl High 35.1-43.9 Comment on above: Performed By: #### L 503.6005, L500.4050, L100.0100, L501.2450, L501.4021 #### [id number] [place], [address] WBC (Bld) [#/Vol] 9.3 10*3/uL Normal 4.4-11.0 [facility] Comment on above: Performed By: #### L 503.6005, L500.4050, L100.0100, L501.2450, L501.4021 #### [address] [place], [address] Carbon dioxide, total [Moles /volume] in Central venous bloodOrdered By: Alma Rosa Pedroza on 11-03-2024 CO2 [Moles/Vol] 25.7 mmol/L 21.0-32.0 Chest 1 View (Portable)on Chest 1 View (Portable) Normal [facility] Chloride assayOrdered By: Julia Pedroza on 11-03-2024 Chloride [Moles/Vol] 101 mmol/L 98-108 [facility] Comprehensive Metabolic Prof ilon 11-03-2024 Albumin [Mass/Vol] 3.4 g/dL Normal 3.4-4.8 [facility] Comment on above: Performed By: #### L 503.6005, L500.4050, L100.0100, L501.2450, L501.4021 #### [id number] [place], [address] Albumin/Globulin [Mass ratio] 0.8 {ratio} Low 0.9-2.4 Comment on above: Performed By: #### L 503.6005, L500.4050, L100.0100, L501.2450, L501.4021 #### [address] [place], [address] ALK PHOS 141 U/L High 40-129 Comment on above: Performed By: #### L 503.6005, L500.4050, L100.0100, L501.2450, L501.4021 #### [address] [place], [address] ALT [Catalytic activity/Vol] 8 U/L Normal <=46 Comment on above: Performed By: #### L 503.6005, L500.4050, L100.0100, L501.2450, L501.4021 #### [address] [place], [address] AST [Catalytic activity/Vol] 16 U/L Normal <=37 Comment on above: Performed By: #### L 503.6005, L500.4050, L100.0100, L501.2450, L501.4021 #### [address] [place], [address] Bilirubin [Mass/Vol] 0.24 mg/dL Normal 0.00-1.30 [facility] Comment on above: Performed By: #### L 503.6005, L500.4050, L100.0100, L501.2450, L501.4021 #### [address] [place], [address] BUN/CRE 21.4 RATIO High 10-20 Comment on above: Performed By: #### L 503.6005, L500.4050, L100.0100, L501.2450, L501.4021 #### [address] [place], [address] Calcium [Mass/Vol] 9.5 mg/dL Normal 7.6-11.0 [facility] Comment on above: Performed By: #### L 503.6005, L500.4050, L100.0100, L501.2450, L501.4021 #### [address] [place], [address] Chloride [Moles/Vol] 101 mmol/L Normal 98-108 [facility] Comment on above: Performed By: #### L 503.6005, L500.4050, L100.0100, L501.2450, L501.4021 #### [address] [place], [address] CO2 [Moles/Vol] 25.7 mmol/L Normal 21.0-32.0 Comment on above: Performed By: #### L 503.6005, L500.4050, L100.0100, L501.2450, L501.4021 #### [id number] [place], [address] Creatinine [Mass/Vol] 0.65 mg/dL Low 0.70-1.20 [facility] Comment on above: Performed By: #### L 503.6005, L500.4050, L100.0100, L501.2450, L501.4021 #### [address] [place], [address] ECRCL 122.02 ml/min Normal 50-250 Comment on above: Performed By: #### L 503.6005, L500.4050, L100.0100, L501.2450, L501.4021 #### [address] [place], [address] GAP 12 Normal 5-15 Comment on above: Performed By: #### L 503.6005, L500.4050, L100.0100, L501.2450, L501.4021 #### [address] [place], [address] GFR/1.73 sq M.predicted among non-blacks MDRD (S/P/Bld) [Vol rate/Area] 106 mL/min/{1.73_m2} Normal >60 [facility] Comment on above: Result Comment: mL/m in/1.73m2 CKD-EPI Creatinine Equation (2020) Performed By: #### L 503.6005, L500.4050, L100.0100, L501.2450, L501.4021 #### [address] [place], [address] Globulin (S) [Mass/Vol] 4.1 g/dL Normal 2.2-4.2 [facility] Comment on above: Performed By: #### L 503.6005, L500.4050, L100.0100, L501.2450, L501.4021 #### [address] [place], [address] Glucose [Mass/Vol] 101 mg/dL High 70-99 [facility] Comment on above: Performed By: #### L 503.6005, L500.4050, L100.0100, L501.2450, L501.4021 #### [address] [place], [address] Potassium [Moles/Vol] 3.9 mmol/L Normal 3.3-5.1 [facility] Comment on above: Performed By: #### L 503.6005, L500.4050, L100.0100, L501.2450, L501.4021 #### [id number] [place], [address] Sodium [Moles/Vol] 139 mmol/L Normal 133-145 [facility] Comment on above: Performed By: #### L 503.6005, L500.4050, L100.0100, L501.2450, L501.4021 #### [id number] [place], [address] T PROT 7.5 g/dL Normal 5.9-8.4 Comment on above: Performed By: #### L 503.6005, L500.4050, L100.0100, L501.2450, L501.4021 #### [address] [place], [address] Urea nitrogen [Mass/Vol] 14 mg/dL Normal 4-19 Comment on above: Performed By: #### L 503.6005, L500.4050, L100.0100, L501.2450, L501.4021 #### [address] [place], [address] Eosinophil percentageOrdered By: Alma Rosa Pedroza on 11-03-2024 Eosinophils/100 WBC (Bld) 0.9 % 0-5 Erythrocyte distribution wid th ratioOrdered By: Alma Rosa Pedroza on 11-03-2024 Erythrocyte distribution width (RBC) [Ratio] 18.3 % High 11.6-14.6 Erythrocyte distribution wid th standard deviationOrdered By: Volant Kasia on 11-03-2024 Erythrocyte distribution width (RBC) [Ratio] 50.6 fl High 35.1-43.9 Glomerular filtration rate ( GFR) estimation/1.73 sq m using serum, plasma, or whole bOrdered By: Alma Rosa Pedroza on 11-03-2024 GFR/1.73 sq M.predicted among non-blacks MDRD (S/P/Bld) [Vol rate/Area] 106 mL/min/{1.73_m2} >60 [facility] Comment on above: mL/min/1.73m2 CKD-EP I Creatinine Equation (2020) H AND P Exam - Hospitaliston 11-03-2024 H&P Exam - Hospitalist Normal [facility] Hematocrit Auto (Bld) [Volum e fraction]Ordered By: Alma Rosa Pedroza on 11-03-2024 Hematocrit (Bld) [Volume fraction] 42.4 % 40-54 Hemoglobin measurementOrdere d By: Alma Rosa Pedroza on 11-03-2024 Hemoglobin (Bld) [Mass/Vol] 13.5 g/dL 13.0-16. 5 Immature granulocytes/100 WB C Auto (Bld)Ordered By: Alma Rosa Pedroza on 11-03-2024 Immature granulocytes/100 WBC (Bld) 0.200 % 0.0-0.9 Comment on above: IG% - Immature Granu locytes (promyelocytes, myelocytes and metamyelocytes) > 1% indicates that a LEFT SHIFT is Present. L499.0042on 11-03-2024 Trop T High Sen 26 ng/L High <=22 Comment on above: Performed By: #### L 499.0042 #### [address] [place], [address] L499.0043on 11-03-2024 Trop T High Sen 26 ng/L High <=22 Comment on above: Performed By: #### L 499.0043 #### [address] [place], [address] L501.4021on 11-03-2024 Trop T High Sen 27 ng/L High <=22 Comment on above: Performed By: #### L 503.6005, L500.4050, L100.0100, L501.2450, L501.4021 #### [id number] [place], [address] Laboratory - Chemistry and C hemistry - challengeOrdered By: Alma Rosa Pedroza on 11-03-2024 AST [Catalytic activity/Vol] 16 U/L <38 Lactic Acidon 11-03-2024 Lactate [Moles/Vol] 1.3 mmol/L Normal 0.0-2.0 [facility] Comment on above: Order Comment: Y Performed By: #### L 503.6005, L500.4050, L100.0100, L501.2450, L501.4021 #### [address] [place], [address] Lactic acid measurementOrder ed By: Alma Rosa Pedroza on 11-03-2024 Lactate [Moles/Vol] 1.3 mmol/L 0.0-2.0 [facility] Lipaseon 06-08-2025 Lipase [Catalytic activity/Vol] 17 U/L Normal 13-75 Comment on above: Result Comment: Siri anaya note:LIPASE revised reference range effective 22.New Lipase methodology. Expected to produce lower valuesthan the previous assay method.NEW Reference Range: 13 - 75 U/L Performed By: #### L 503.6005, L500.4050, L100.0100, L501.2450, L501.4021 #### [id number] [place], [address] Lipase measurementOrdered By : Remus Ungur on 11-03-2024 Lipase [Catalytic activity/Vol] 17 U/L 13-75 Comment on above: Please note:LIPASE r evised reference range effective 22. New Lipase methodology. Expected to produce lower values than the previous assay method. NEW Reference Range: 13 - 75 U/L MCV (mean corpuscular volume ) determinationOrdered By: Remus Ungelizabeth on 11-03-2024 MCV (RBC) [Entitic vol] 78.7 fL Low 80-94 [facility] Mean corpuscular hemoglobin (MCH) determinationOrdered By: Remus Ungur on 11-03-2024 MCH (RBC) [Entitic mass] 25.0 pg Low 27.0-32.0 Mean corpuscular hemoglobin concentration (MCHC) determinationOrdered By: Remus Ungur on 11-03-2024 MCHC (RBC) [Mass/Vol] 31.8 g/dL Low 32-36 [facility] Mean platelet volume determi nationOrdered By: Remus Ungur on 11-03-2024 Platelet mean volume (Bld) [Entitic vol] 9.0 fL 6.2-12.0 Monocyte percentageOrdered B y: Remus Ungur on 11-03-2024 Monocytes/100 WBC (Bld) 6.7 % 0-10 [facility] Neutrophil percentageOrdered By: Remus Ungur on 11-03-2024 Neutrophils/100 WBC (Bld) 69.4 % 47-70 Nucleated red blood cell per centageOrdered By: Remus Ungur on 11-03-2024 Nucleated RBC/100 WBC (Bld) [Ratio] 0 % 0-5 Platelet countOrdered By: Julia palma Kasia on 11-03-2024 Platelets (Bld) [#/Vol] 364 10*3/uL 150-450 Potassium measurement (mass/ volume)Ordered By: Alma Rosa Pedroza on 11-03-2024 Potassium (Unsp spec) [Mass/Vol] 3.9 mmol/L 3.3-5.1 RBC Auto (Bld) [#/Vol]Ordere d By: lAma Rosa Pedroza on 11-03-2024 RBC (Bld) [#/Vol] 5.39 10*6/uL 4.6-6.2 [facility] Serum creatinine measurement (mass/volume)Ordered By: Alma Rosa Pedroza on 11-03-2024 Creatinine [Mass/Vol] 0.65 mg/dL Low 0.70-1.20 [facility] Serum globulin measurementOr dered By: Alma Rosa Pedroza on 11-03-2024 Globulin (S) [Mass/Vol] 4.1 g/dL 2.2-4.2 [facility] Serum glucose measurement (m ass/volume)Ordered By: Alma Rosa Pedroza on 11-03-2024 Glucose [Mass/Vol] 101 mg/dL High 70-99 [facility] Serum or plasma alanine hooper otransferase (ALT) measurementOrdered By: Alma Rosa Pedroza on 11-03-2024 ALT [Catalytic activity/Vol] 8 U/L <47 Serum or plasma albumin shantal urement (mass/volume)Ordered By: Alma Rosa Pedroza on 11-03-2024 Albumin [Mass/Vol] 3.4 g/dL 3.4-4.8 [facility] Serum or plasma albumin/glob ulin mass ratioOrdered By: Alma Rosa Pedroza on 11-03-2024 Albumin/Globulin [Mass ratio] 0.8 {ratio} Low 0.9-2.4 Serum or plasma alkaline radha sphatase measurementOrdered By: Alma Rosa Pedroza on 11-03-2024 ALP [Catalytic activity/Vol] 141 U/L High 40-129 Serum or plasma calcium shantal urement (mass/volume)Ordered By: Alma Rosa Sheehanelizabeth on 11-03-2024 Calcium [Mass/Vol] 9.5 mg/dL 7.6-11.0 [facility] Serum or plasma urea nitroge n measurement (mass/volume)Ordered By: Alma Rosa Sheehanelizabeth on 11-03-2024 Urea nitrogen [Mass/Vol] 14 mg/dL 4-19 Sodium levelOrdered By: Derek pablo Kasia on 11-03-2024 Sodium [Moles/Vol] 139 mmol/L 133-145 [facility] Total proteinOrdered By: Marquita us Sissyelizabeth on 11-03-2024 Protein [Mass/Vol] 7.5 g/dL 5.9-8.4 [facility] Troponin T.cardiac [Mass/vol ume] in Serum or Plasma by High sensitivity methodOrdered By: Alma Rosa Sheehanelizabeth on 11-03-2024 Troponin T.cardiac High sensitivity method [Mass/Vol] 26 ng/L High <22 Troponin T.cardiac High sensitivity method [Mass/Vol] 26 ng/L High <22 Troponin T.cardiac High sensitivity method [Mass/Vol] 27 ng/L High <22 White blood cell (WBC) count Ordered By: Alma Rosa Kasia on 11-03-2024 WBC (Bld) [#/Vol] 9.3 10*3/uL 4.4-11.0 [facility] Amorphous sediment detection in urine sediment by light microscopyOrdered By: Zhang Chavez on 11-01-2024 Amorphous sediment LM Ql (Urine sed) 1+ Bilirubin Test strip Ql (U)O rdered By: Zhang Chavez on 11-01-2024 Bilirubin Ql (U) Negative Negative Emergency Department Summary on 11-01-2024 Emergency Department Summary Normal Ketones Test strip Ql (U)Ord ered By: Zhang Chavez on 11-01-2024 Ketones Ql (U) Negative Negative Microscopic analysis of urin e for red blood cells (RBC)Ordered By: Zhang Chavez on 11-01-2024 Microscopic analysis of urine for red blood cells (RBC) 0 SEEN /hpf 0-5 Mucus LM Ql (Urine sed)Order ed By: Zhang Chavez on 11-01-2024 Mucus Ql (Urine sed) 0 SEEN /hpf [facility] Nitrite Test strip Ql (U)Ord ered By: Zhang Chavez on 11-01-2024 Nitrite Ql (U) Positive High Negative Protein Test strip Ql (U)Ord ered By: Zhang Chavez on 11-01-2024 Protein Ql (U) 100 mg/dl High Negative Squamous epithelial cells de tection in urine sediment by light microscopyOrdered By: Zhang Chavez on 11-01-2024 Epithelial cells.squamous LM Ql (Urine sed) 0 SEEN /hpf 0-5 Urinalysis, Completeon 11-01 WBC 0-5 SEEN Normal 0-5 Comment on above: Order Comment: GOOD TER SPECIMEN Performed By: #### M 100.2200, L400.0001 #### [id number] [place], [address] AMORPHOUS 1+ Normal Comment on above: Order Comment: GOOD TER SPECIMEN Performed By: #### M 100.2200, L400.0001 #### [address] [place], [address] BACTERIA 0 SEEN Normal None Seen Comment on above: Order Comment: GOOD TER SPECIMEN Performed By: #### M 100.2200, L400.0001 #### [address] [place], [address] EPI,SQUAMOUS 0 SEEN Normal 0-5 Comment on above: Order Comment: GOOD TER SPECIMEN Performed By: #### M 100.2200, L400.0001 #### [address] [place], [address] Mucus Ql (Urine sed) 0 SEEN Normal [facility] Comment on above: Order Comment: GOOD TER SPECIMEN Performed By: #### M 100.2200, L400.0001 #### [address] [place], [address] RBC 0 SEEN Normal 0-5 Comment on above: Order Comment: GOOD TER SPECIMEN Performed By: #### M 100.2200, L400.0001 #### [address] [place], [place], [address] Urine clarityOrdered By: Terell Chavez on 11-01-2024 Clarity (U) Clear Clear Urine color determinationOrd ered By: Zhang Chavez on 11-01-2024 Color (U) Yellow Yellow Urine cultureOrdered By: Terell Chavez on 11-01-2024 Bacteria identified Cx Nom (U) Pseudomonas aeruginosa Abnormal Urine glucose detectionOrder ed By: Zhang Chavez on 11-01-2024 Glucose Ql (U) Normal mg/dl Normal Urine leukocyte esterase det ection by dipstickOrdered By: Zhang Chavez on 11-01-2024 Leukocyte esterase Test strip Ql (U) 500 /ul High Negative Urine pHOrdered By: Zhang Chavez on 11-01-2024 pH (U) 6.0 [pH] 5.0 - 8.0 Urine sediment bacteria coun t by microscopy (number/high power field)Ordered By: Zhang Chavez on 11-01-2024 Bacteria LM.HPF (Urine sed) [#/Area] 0 /[HPF] None Seen Urine specific gravity measu rementOrdered By: Zhang Chavez on 11-01-2024 Specific gravity (U) [Rel density] 1.020 1.002-1.03 0 Urine urobilinogen measureme ntOrdered By: Zhang Chavez on 11-01-2024 Urobilinogen Ql (U) Normal mg/dl Normal [facility] White blood cell countOrdere d By: Zhang Chavez on 11-01-2024 White blood cell count 0-5 SEEN /hpf 0-5 Culture, Blood (WB)on 2024 CUB Blood cultures x2, from two different sites No growth in 5 days. Normal Comment on above: Performed By: #### L 100.0100, L300.3900, L300.4310, M200.1000, L500.4050, L503.6005 #### [id number] [place], [address] Urine Cultureon 09-14-2024 URC Normal Comment on above: Performed By: #### M 100.2000, M100.2200, M100.3000, L400.0001 #### [address] [place], [address] Wound Cultureon 09-14-2024 WC Normal Comment on above: Performed By: #### M 100.2000, M100.2200, M100.3000, L400.0001 #### [address] [place], [address] Gram Stainon 09-12-2024 GS Positive Normal Comment on above: Performed By: #### M 100.2000, M100.2200, M100.3000, L400.0001 #### [address] [place], [address] Absolute lymphocyte countOrd ered By: Alex Sheppard on 09-11-2024 Lymphocytes Auto (Unsp spec) [#/Vol] 2.40 10*3/uL 0.83-4.51 Absolute neutrophil countOrd ered By: Alex Sheppard on 09-11-2024 Neutrophils (Bld) [#/Vol] 7.6 10*3/uL 2.0-7.7 Activated partial thrombopla stin time (aPTT) in platelet poor plasma by coagulation aOrdered By: Alex Sheppard on 09-11-2024 aPTT Coag (Bld) [Time] 49.7 s High 24.1-36.2 [facility] Comment on above: Performed By: #### L 100.0100, L300.3900, L300.4310, M200.1000, L500.4050, L503.6005 #### [address] [place], [place], [address] aPTT Coag (PPP) [Time] 49.7 s High 24.1-36.2 [facility] Anion gap in Serum or Plasma Ordered By: Alex Sheppard on 09-11-2024 Anion gap [Moles/Vol] 9 mmol/L 5-15 [facility] Automated blood erythrocyte countOrdered By: Alex Sheppard on 09-11-2024 RBC (Bld) [#/Vol] 5.05 10*6/uL Normal 4.6-6.2 [facility] Comment on above: Performed By: #### L 100.0100, L300.3900, L300.4310, M200.1000, L500.4050, L503.6005 #### [address] [place], [address] Automated blood hematocrit ( percentage)Ordered By: Alex Sheppard on 09-11-2024 Hematocrit (Bld) [Volume fraction] 40.9 % Normal 40-54 Comment on above: Performed By: #### L 100.0100, L300.3900, L300.4310, M200.1000, L500.4050, L503.6005 #### [address] [place], [address] Automated lymphocyte count a s percentage of total leukocytesOrdered By: Alex Sheppard on 09-11-2024 Lymphocytes/100 WBC (Bld) 20.8 % Normal 19-41 Comment on above: Performed By: #### L 100.0100, L300.3900, L300.4310, M200.1000, L500.4050, L503.6005 #### [address] [place], [address] Lymphocytes/100 WBC Auto (Unsp spec) 20.8 % - BUN/creatinine ratioOrdered By: Alex Sheppard on 09-11-2024 Urea nitrogen/Creatinine [Mass ratio] 19.5 mg/mg 10-20 Basophil percentageOrdered B y: Alex Silver on 09-11-2024 Basophils/100 WBC (Bld) 0.4 % Normal 0-1 [facility] Comment on above: Performed By: #### L 100.0100, L300.3900, L300.4310, M200.1000, L500.4050, L503.6005 #### [address] [place], [place], [address] Bilirubin Test strip Ql (U)O rdered By: Alex Sheppard on 09-11-2024 Bilirubin Ql (U) Negative Negative Bilirubin, totalOrdered By: Alex Sheppard on 09-11-2024 Bilirubin [Mass/Vol] mg/dL 0.00-1.30 [facility] Blood cultureOrdered By: Luz Sheppard on 09-11-2024 Bacteria identified Cx Nom (Bld) No growth in 5 days. CBC W/Diff, Automatedon 04 Absolute Lymph 2.40 X10 3/uL Normal 0.83-4.51 Comment on above: Performed By: #### L 100.0100, L300.3900, L300.4310, M200.1000, L500.4050, L503.6005 #### [address] [place], [address] Absolute Neut 7.6 X10 3/uL Normal 2.0-7.7 Comment on above: Performed By: #### L 100.0100, L300.3900, L300.4310, M200.1000, L500.4050, L503.6005 #### [address] [place], [place], [address] IG% 0.400 Normal 0.0-0.9 Comment on above: Result Comment: IG% - Immature Granulocytes (promyelocytes, myelocytes andmetamyelocytes) > 1% indicates that a LEFT SHIFT is Present. Performed By: #### L 100.0100, L300.3900, L300.4310, M200.1000, L500.4050, L503.6005 #### [address] [place], [address] Nucleated RBC (Bld) [#/Vol] 0 10*3/uL Normal 0-5 Comment on above: Performed By: #### L 100.0100, L300.3900, L300.4310, M200.1000, L500.4050, L503.6005 #### [address] [place], [address] RDW SD 51.1 fl High 35.1-43.9 Comment on above: Performed By: #### L 100.0100, L300.3900, L300.4310, M200.1000, L500.4050, L503.6005 #### [address] [place], [address] Calcium oxalate crystals LM Ql (Urine sed)Ordered By: Alex Sheppard on 09-11-2024 Urine Calcium Oxalate Crystals RARE /hpf Calcium oxalate crystals det ection in urine sediment by light microscopyOrdered By: Alex Sheppard on 09-11-2024 Calcium oxalate crystals LM Ql (Urine sed) RARE /hpf Carbon dioxide, total [Moles /volume] in Central venous bloodOrdered By: Alex Sheppard on 09-11-2024 CO2 [Moles/Vol] 27.3 mmol/L Normal 21.0-32.0 Comment on above: Performed By: #### L 100.0100, L300.3900, L300.4310, M200.1000, L500.4050, L503.6005 #### [address] [place], [address] Chloride assayOrdered By: Ezekiel Sheppard on 09-11-2024 Chloride [Moles/Vol] 103 mmol/L Normal 98-108 [facility] Comment on above: Performed By: #### L 100.0100, L300.3900, L300.4310, M200.1000, L500.4050, L503.6005 #### [address] [place], [address] Comprehensive Metabolic Prof ilon 09-11-2024 ALK PHOS 146 U/L High 40-129 Comment on above: Performed By: #### L 100.0100, L300.3900, L300.4310, M200.1000, L500.4050, L503.6005 #### [address] [place], [address] BUN/CRE 19.5 RATIO Normal 10-20 Comment on above: Performed By: #### L 100.0100, L300.3900, L300.4310, M200.1000, L500.4050, L503.6005 #### [id number] [place], [address] ECRCL 107.24 ml/min Normal 50-250 Comment on above: Performed By: #### L 100.0100, L300.3900, L300.4310, M200.1000, L500.4050, L503.6005 #### [address] [place], [address] GAP 9 Normal 5-15 Comment on above: Performed By: #### L 100.0100, L300.3900, L300.4310, M200.1000, L500.4050, L503.6005 #### [address] [place], [address] T BILI < 0.15 Normal 0.00-1.30 Comment on above: Performed By: #### L 100.0100, L300.3900, L300.4310, M200.1000, L500.4050, L503.6005 #### [address] [place], [place], [address] T PROT 6.8 g/dL Normal 5.9-8.4 Comment on above: Performed By: #### L 100.0100, L300.3900, L300.4310, M200.1000, L500.4050, L503.6005 #### [address] [place], [place], [address] Comprehensive Metabolic Prof ilOrdered By: Alex Sheppard on 09-11-2024 AST [Catalytic activity/Vol] 27 U/L Normal <=37 Comment on above: Performed By: #### L 100.0100, L300.3900, L300.4310, M200.1000, L500.4050, L503.6005 #### [address] [place], [place], [address] Emergency Department Summary on 09-11-2024 Emergency Department Summary Normal Eosinophil percentageOrdered By: Alex Sheppard on 09-11-2024 Eosinophils/100 WBC (Bld) 3.6 % Normal 0-5 Comment on above: Performed By: #### L 100.0100, L300.3900, L300.4310, M200.1000, L500.4050, L503.6005 #### [id number] [place], [place], [id number] Epithelial cells.squamous LM Ql (Urine sed)Ordered By: Alex Sheppard on 09-11-2024 Epithelial cells.squamous LM.HPF (Urine sed) [#/Area] 0 /[HPF] 0-5 [facility] Erythrocyte distribution wid th (RBC) [Ratio]Ordered By: Alex Sheppard on 09-11-2024 Erythrocyte distribution width (RBC) [Entitic vol] 51.1 fL High 35.1-43.9 [facility] Erythrocyte distribution wid th ratioOrdered By: Alex Sheppard on 09-11-2024 Erythrocyte distribution width (RBC) [Ratio] 17.6 % High 11.6-14.6 Comment on above: Performed By: #### L 100.0100, L300.3900, L300.4310, M200.1000, L500.4050, L503.6005 #### [id number] [place], [place], [id number] Erythrocyte distribution wid th standard deviationOrdered By: Alex Sheppard on 09-11-2024 Erythrocyte distribution width (RBC) [Ratio] 51.1 fl High 35.1-43.9 Estimation of creatinine elzbieta aranceOrdered By: Alex Sheppard on 09-11-2024 Estimated Creatinine Clearance Calc 107.24 ml/min 50-250 GFR/1.73 sq M.predicted cheyanne g non-blacks MDRD (S/P/Bld) [Vol rate/Area]Ordered By: Alex Sheppard on 09-11-2024 Estimated GFR (MDRD) Non-Af Amer 101 >60 Comment on above: mL/min/1.73m2 CKD-EP I Creatinine Equation (2020) Glomerular filtration rate ( GFR) estimation/1.73 sq m using serum, plasma, or whole bOrdered By: Alex Sheppard on 09-11-2024 GFR/1.73 sq M.predicted among non-blacks MDRD (S/P/Bld) [Vol rate/Area] 101 mL/min/{1.73_m2} Normal >60 [facility] Comment on above: mL/min/1.73m2 CKD-EP I Creatinine Equation (2020) Result Comment: mL/m in/1.73m2 CKD-EPI Creatinine Equation (2020) Performed By: #### L 100.0100, L300.3900, L300.4310, M200.1000, L500.4050, L503.6005 #### [id number] [place], [address] Glucose Ql (U)Ordered By: Ezekiel Sheppard on 09-11-2024 Urine Glucose (UA) Normal mg/dl Normal [facility] Gram stainOrdered By: Alex jaffe on 09-11-2024 Microscopic observation Gram stain Nom (Unsp spec) Hemoglobin measurementOrdere d By: Alex Sheppard on 09-11-2024 Hemoglobin (Bld) [Mass/Vol] 13.0 g/dL Normal 13.0-16. 5 Comment on above: Performed By: #### L 100.0100, L300.3900, L300.4310, M200.1000, L500.4050, L503.6005 #### [id number] [place], [address] Immature granulocytes/100 WB C Auto (Bld)Ordered By: Alex Sheppard on 09-11-2024 Immature granulocytes/100 WBC (Bld) 0.400 % 0.0-0.9 Comment on above: IG% - Immature Granu locytes (promyelocytes, myelocytes and metamyelocytes) > 1% indicates that a LEFT SHIFT is Present. International normalized rat io (INR) calculationOrdered By: Alex Sheppard on 09-11-2024 INR Coag (Bld) [Relative time] 1.0 {INR} Ketones Test strip Ql (U)Ord ered By: Alex Sheppard on 09-11-2024 Ketones Ql (U) Negative Negative Lactic acid measurementOrder ed By: Alex Sheppard on 09-11-2024 Lactate [Moles/Vol] 1.4 mmol/L Normal 0.0-2.0 [facility] Comment on above: Order Comment: Y Performed By: #### L 100.0100, L300.3900, L300.4310, M200.1000, L500.4050, L503.6005 #### [id number] [place], [place], [id number] Lymphocytes Auto (Unsp spec) [#/Vol]Ordered By: Alex Sheppard on 04-16-2025 Lymphocytes (Bld) [#/Vol] 2.40 10*3/uL 0.83-4.5 1 MCV (mean corpuscular volume ) determinationOrdered By: Alex Sheppard on 09-11-2024 MCV (RBC) [Entitic vol] 81.0 fL Normal 80-94 [facility] Comment on above: Performed By: #### L 100.0100, L300.3900, L300.4310, M200.1000, L500.4050, L503.6005 #### [id number] [place], [address] Mean corpuscular hemoglobin (MCH) determinationOrdered By: Alex Sheppard on 09-11-2024 MCH (RBC) [Entitic mass] 25.7 pg Low 27.0-32.0 Comment on above: Performed By: #### L 100.0100, L300.3900, L300.4310, M200.1000, L500.4050, L503.6005 #### [id number] [facility]. [place], [place], [address] Mean corpuscular hemoglobin concentration (MCHC) determinationOrdered By: Alex Sheppard on 09-11-2024 MCHC (RBC) [Mass/Vol] 31.8 g/dL Low 32-36 [facility] Comment on above: Performed By: #### L 100.0100, L300.3900, L300.4310, M200.1000, L500.4050, L503.6005 #### [id number] [facility] [place], [address] Mean platelet volume determi nationOrdered By: Alex Sheppard on 09-11-2024 Platelet mean volume (Bld) [Entitic vol] 8.6 fL Normal 6.2-12.0 Comment on above: Performed By: #### L 100.0100, L300.3900, L300.4310, M200.1000, L500.4050, L503.6005 #### [id number] [place], [place], [id number] Microscopic analysis of urin e for red blood cells (RBC)Ordered By: Alex Sheppard on 09-11-2024 Microscopic analysis of urine for red blood cells (RBC) 0-5 SEEN /hpf 0-5 Urine RBC 0-5 SEEN /hpf 0-5 Monocyte percentageOrdered B y: Alex Sheppard on 09-11-2024 Monocytes/100 WBC (Bld) 8.6 % Normal 0-10 [facility] Comment on above: Performed By: #### L 100.0100, L300.3900, L300.4310, M200.1000, L500.4050, L503.6005 #### [id number] [place], [place], [id number] Mucus LM Ql (Urine sed)Order ed By: Alex Sheppard on 09-11-2024 Mucus Ql (Urine sed) RARE /hpf [facility] Neutrophil percentageOrdered By: Alex Sheppard on 09-11-2024 Neutrophils/100 WBC (Bld) 66.2 % Normal 47-70 Comment on above: Performed By: #### L 100.0100, L300.3900, L300.4310, M200.1000, L500.4050, L503.6005 #### [id number] [place], [place], [id number] Nitrite Test strip Ql (U)Ord ered By: Alex Sheppard on 09-11-2024 Nitrite Ql (U) Positive High Negative Nucleated red blood cell per centageOrdered By: Alex Sheppard on 09-11-2024 Nucleated RBC/100 WBC (Bld) [Ratio] 0 % 0-5 Pelvis WITH IV Contraston Pelvis WITH IV Contrast Normal [facility] Platelet countOrdered By: Ezekiel Sheppard on 09-11-2024 Platelets (Bld) [#/Vol] 371 10*3/uL Normal 150-450 Comment on above: Performed By: #### L 100.0100, L300.3900, L300.4310, M200.1000, L500.4050, L503.6005 #### [id number] [place], [address] Potassium measurement (mass/ volume)Ordered By: Alex Sheppard on 09-11-2024 Potassium [Moles/Vol] 4.1 mmol/L Normal 3.3-5.1 [facility] Comment on above: Performed By: #### L 100.0100, L300.3900, L300.4310, M200.1000, L500.4050, L503.6005 #### [id number] [place], [address] Potassium (Unsp spec) [Mass/Vol] 4.1 mmol/L 3.3-5.1 Protein Test strip Ql (U)Ord ered By: Alex Sheppard on 09-11-2024 Protein Ql (U) 15 mg/dl High Negative Prothrombin Time w/INRon INR Coag (PPP) [Relative time] 1.0 {INR} Normal Comment on above: Performed By: #### L 100.0100, L300.3900, L300.4310, M200.1000, L500.4050, L503.6005 #### [id number] [place], [address] Prothrombin timeOrdered By: Alex Sheppard on 09-11-2024 PT Coag (PPP) [Time] 13.7 s Normal 11.7-14.9 [facility] Comment on above: Performed By: #### L 100.0100, L300.3900, L300.4310, M200.1000, L500.4050, L503.6005 #### [id number] [place], [address] Serum creatinine measurement (mass/volume)Ordered By: Alex Sheppard on 09-11-2024 Creatinine [Mass/Vol] 0.75 mg/dL Normal 0.70-1.20 [facility] Comment on above: Performed By: #### L 100.0100, L300.3900, L300.4310, M200.1000, L500.4050, L503.6005 #### [id number] [place], [address] Serum globulin measurementOr dered By: Alex Sheppard on 09-11-2024 Globulin (S) [Mass/Vol] 3.9 g/dL Normal 2.2-4.2 [facility] Comment on above: Performed By: #### L 100.0100, L300.3900, L300.4310, M200.1000, L500.4050, L503.6005 #### [id number] [place], [place], [phone] Serum glucose measurement (m ass/volume)Ordered By: Alex Sheppard on 09-11-2024 Glucose [Mass/Vol] 123 mg/dL High 70-99 [facility] Comment on above: Performed By: #### L 100.0100, L300.3900, L300.4310, M200.1000, L500.4050, L503.6005 #### [id number] [place], [place], [phone] Serum or plasma alanine hooper otransferase (ALT) measurementOrdered By: Alex Sheppard on 09-11-2024 ALT [Catalytic activity/Vol] 19 U/L Normal <=46 Comment on above: Performed By: #### L 100.0100, L300.3900, L300.4310, M200.1000, L500.4050, L503.6005 #### [id number] [place], [place], [phone] Serum or plasma albumin shantal urement (mass/volume)Ordered By: Alex Sheppard on 09-11-2024 Albumin [Mass/Vol] 3.0 g/dL Low 3.4-4.8 [facility] Comment on above: Performed By: #### L 100.0100, L300.3900, L300.4310, M200.1000, L500.4050, L503.6005 #### [id number] [place], [place], [id number] Serum or plasma albumin/glob ulin mass ratioOrdered By: Alex Sheppard on 09-11-2024 Albumin/Globulin [Mass ratio] 0.8 {ratio} Low 0.9-2.4 Comment on above: Performed By: #### L 100.0100, L300.3900, L300.4310, M200.1000, L500.4050, L503.6005 #### [id number] [place], [address] Serum or plasma alkaline radha sphatase measurementOrdered By: Alex Sheppard on 09-11-2024 ALP [Catalytic activity/Vol] 146 U/L High 40-129 Serum or plasma calcium shantal urement (mass/volume)Ordered By: Alex Sheppard on 09-11-2024 Calcium [Mass/Vol] 8.9 mg/dL Normal 7.6-11.0 [facility] Comment on above: Performed By: #### L 100.0100, L300.3900, L300.4310, M200.1000, L500.4050, L503.6005 #### [address] [place], [address] Serum or plasma urea nitroge n measurement (mass/volume)Ordered By: Alex Sheppard on 09-11-2024 Urea nitrogen [Mass/Vol] 15 mg/dL Normal 4-19 Comment on above: Performed By: #### L 100.0100, L300.3900, L300.4310, M200.1000, L500.4050, L503.6005 #### [id number] [place], [address] Sodium levelOrdered By: Alex Sheppard on 09-11-2024 Sodium [Moles/Vol] 139 mmol/L Normal 133-145 [facility] Comment on above: Performed By: #### L 100.0100, L300.3900, L300.4310, M200.1000, L500.4050, L503.6005 #### [id number] [place], [address] Squamous epithelial cells de tection in urine sediment by light microscopyOrdered By: Alex Sheppard on 09-11-2024 Epithelial cells.squamous LM Ql (Urine sed) 0 SEEN /hpf 0-5 Total proteinOrdered By: Luz Sheppard on 09-11-2024 Protein [Mass/Vol] 6.8 g/dL 5.9-8.4 [facility] Urinalysis, Completeon 09-11 BACTERIA 2+ /hpf Normal None Seen Comment on above: Order Comment: GOOD TER SPECIMEN Performed By: #### M 100.1999, M100.2200, M100.3000, L400.0001 #### [id number] [place], [address] CA OX CRYSTAL RARE Normal Comment on above: Order Comment: GOOD TER SPECIMEN Performed By: #### M 100.1999, M100.2200, M100.3000, L400.0001 #### [address] [place], [address] Mucus Ql (Urine sed) RARE Normal [facility] Comment on above: Order Comment: GOOD TER SPECIMEN Performed By: #### M 100.1999, M100.2200, M100.3000, L400.0001 #### [id number] [place], [address] RBC 0-5 SEEN Normal 0-5 Comment on above: Order Comment: GOOD TER SPECIMEN Performed By: #### M 100.2000, M100.2200, M100.3000, L400.0001 #### [id number] [place], [address] WBC 5-10 SEEN Normal 0-5 Comment on above: Order Comment: GOOD TER SPECIMEN Performed By: #### M 100.2000, M100.2200, M100.3000, L400.0001 #### [id number] [place], [address] EPI,SQUAMOUS 0 SEEN Normal 0-5 Comment on above: Order Comment: GOOD TER SPECIMEN Performed By: #### M 100.2000, M100.2200, M100.3000, L400.0001 #### [id number] [place], [address] Urine blood detectionOrdered By: Alex Sheppard on 09-11-2024 Urine Occult Blood 10 /ul High Negative [facility] Urine clarityOrdered By: Luz Sheppard on 09-11-2024 Clarity (U) Clear Clear Urine color determinationOrd ered By: Alex Sheppard on 09-11-2024 Color (U) Yellow Yellow Urine cultureOrdered By: Luz Sheppard on 09-11-2024 Bacteria identified Cx Nom (U) Pseudomonas aeruginosa Abnormal Urine glucose detectionOrder ed By: Alex Sheppard on 09-11-2024 Glucose Ql (U) Normal mg/dl Normal Urine leukocyte esterase det ection by dipstickOrdered By: Alex Sheppard on 09-11-2024 Leukocyte esterase Test strip Ql (U) 100 /ul High Negative Urine pHOrdered By: Alex juares on 09-11-2024 pH (U) 6.0 [pH] 5.0 - 8.0 Urine sediment bacteria coun t by microscopy (number/high power field)Ordered By: Alex Sheppard on 09-11-2024 Bacteria LM.HPF (Urine sed) [#/Area] 2 /[HPF] None Seen Urine specific gravity measu rementOrdered By: Alex Sheppard on 09-11-2024 Specific gravity (U) [Rel density] 1.015 1.002-1.03 0 Urine urobilinogen measureme ntOrdered By: Alex Sheppard on 09-11-2024 Urobilinogen Ql (U) Normal mg/dl Normal [facility] Urobilinogen Ql (U)Ordered B y: Alex Sheppard on 09-11-2024 Urine Urobilinogen Normal mg/dl Normal [facility] White blood cell (WBC) count Ordered By: Alex Sheppard on 09-11-2024 WBC (Bld) [#/Vol] 11.6 10*3/uL High 4.4-11.0 [facility] Comment on above: Performed By: #### L 100.0100, L300.3900, L300.4310, M200.1000, L500.4050, L503.6005 #### [id number] [facility] [place], [address] White blood cell countOrdere d By: Alex Sheppard on 09-11-2024 Urine WBC 5-10 SEEN /hpf 0-5 White blood cell count 5-10 SEEN /hpf 0-5 Absolute lymphocyte countOrd ered By: Rico Moore on 07-14-2024 Lymphocytes Auto (Unsp spec) [#/Vol] 2.44 10*3/uL 0.83-4.51 Absolute neutrophil countOrd ered By: Rico Moore on 07-14-2024 Neutrophils (Bld) [#/Vol] 9.1 10*3/uL High 2.0-7.7 Automated lymphocyte count a s percentage of total leukocytesOrdered By: Rico Moore on 07-14-2024 Lymphocytes/100 WBC Auto (Unsp spec) 19.4 % 19-41 Bacteria LM.HPF (Urine sed) [#/Area]Ordered By: Rico Moore on 07-14-2024 Urine Bacteria RARE /hpf None Seen Basic Metabolic Profile (BMP )on 07-14-2024 BUN/CRE 21.2 RATIO High 10-20 Comment on above: Performed By: #### L 500.3400, L500.2500, L100.0100, L501.2450 #### [id number] [place], [address] CA,Total 9.5 mg/dL Normal 8.5-10.1 Comment on above: Performed By: #### L 500.3400, L500.2500, L100.0100, L501.2450 #### [address] [place], [address] Chloride [Moles/Vol] 103 mmol/L Normal 98-107 [facility] Comment on above: Performed By: #### L 500.3400, L500.2500, L100.0100, L501.2450 #### [address] [place], [address] CO2 [Moles/Vol] 26.0 mmol/L Normal 21.0-32.0 Comment on above: Performed By: #### L 500.3400, L500.2500, L100.0100, L501.2450 #### [id number] [place], [address] Creatinine [Mass/Vol] 0.66 mg/dL Low 0.70-1.30 [facility] Comment on above: Result Comment: The validity of the calculated GFR GFRAA in patients over70 years has not been determined. Clinical correlation isessential. Performed By: #### L 500.3400, L500.2500, L100.0100, L501.2450 #### [id number] [place], [address] ECRCL 125.25 ml/min Normal Comment on above: Performed By: #### L 500.3400, L500.2500, L100.0100, L501.2450 #### [address] [place], [address] EST GFR - AA 156 mL/min Normal >60 Comment on above: Result Comment: Afri can [place] GFR Calc Performed By: #### L 500.3400, L500.2500, L100.0100, L501.2450 #### [id number] [place], [address] GAP 9 Normal 5-15 Comment on above: Performed By: #### L 500.3400, L500.2500, L100.0100, L501.2450 #### [address] [place], [address] GFR/1.73 sq M.predicted among non-blacks MDRD (S/P/Bld) [Vol rate/Area] 129 mL/min/{1.73_m2} Normal >60 [facility] Comment on above: Result Comment: Non- GFR Calc Performed By: #### L 500.3400, L500.2500, L100.0100, L501.2450 #### [id number] [place], [address] Glucose [Mass/Vol] 110 mg/dL High 74-106 [facility] Comment on above: Result Comment: Fast ing Glucose result from 100 to 125 mg/dLsuggests IMPAIRED HOMEOSTASIS per A.D.A. criteria. Performed By: #### L 500.3400, L500.2500, L100.0100, L501.2450 #### [id number] [place], [address] Potassium [Moles/Vol] 3.6 mmol/L Normal 3.5-5.1 [facility] Comment on above: Performed By: #### L 500.3400, L500.2500, L100.0100, L501.2450 #### [address] [place], [address] Sodium [Moles/Vol] 139 mmol/L Normal 136-145 [facility] Comment on above: Performed By: #### L 500.3400, L500.2500, L100.0100, L501.2450 #### [address] [place], [address] Urea nitrogen [Mass/Vol] 14 mg/dL Normal 7-18 Comment on above: Performed By: #### L 500.3400, L500.2500, L100.0100, L501.2450 #### [address] [place], [address] Basophil percentageOrdered B y: Rico Moore on 07-14-2024 Basophils/100 WBC (Bld) 0.6 % 0-1 [facility] Bilirubin Test strip Ql (U)O rdered By: Rico Moore on 07-14-2024 Bilirubin Ql (U) Negative Negative Bilirubin directOrdered By: Rico Moore on 07-14-2024 Bilirubin.direct [Mass/Vol] 0.13 mg/dL 0.00-0.3 0 Bilirubin, totalOrdered By: Rico Moore on 07-14-2024 Bilirubin [Mass/Vol] 0.30 mg/dL 0.20-1.00 [facility] Comment on above: For patients on eltr ombopag therapy, use of Dimension Max TBIL is not recommended. Blood urea nitrogen (BUN)/cr eatinine ratioOrdered By: Rico Moore on 07-14-2024 Urea nitrogen/Creatinine [Mass ratio] 21.2 mg/mg High 10-20 CBC W/Diff, Automatedon 06-29 Absolute Lymph 2.44 X10 3/uL Normal 0.83-4.51 Comment on above: Performed By: #### L 500.3400, L500.2500, L100.0100, L501.2450 #### [address] [place], [address] Absolute Neut 9.1 X10 3/uL High 2.0-7.7 Comment on above: Performed By: #### L 500.3400, L500.2500, L100.0100, L501.2450 #### [address] [place], [address] Basophils/100 WBC (Bld) 0.6 % Normal 0-1 [facility] Comment on above: Performed By: #### L 500.3400, L500.2500, L100.0100, L501.2450 #### [address] [place], [address] Eosinophils/100 WBC (Bld) 1.4 % Normal 0-5 Comment on above: Performed By: #### L 500.3400, L500.2500, L100.0100, L501.2450 #### [address] [place], [address] Erythrocyte distribution width (RBC) [Ratio] 15.9 % High 11.6-14.6 Comment on above: Performed By: #### L 500.3400, L500.2500, L100.0100, L501.2450 #### [address] [place], [address] Hematocrit (Bld) [Volume fraction] 42.8 % Normal 40-54 Comment on above: Performed By: #### L 500.3400, L500.2500, L100.0100, L501.2450 #### [address] [place], [address] Hemoglobin (Bld) [Mass/Vol] 14.0 g/dL Normal 13.0-16. 5 Comment on above: Performed By: #### L 500.3400, L500.2500, L100.0100, L501.2450 #### [address] [place], [address] IG% 0.600 Normal 0.0-0.9 Comment on above: Result Comment: IG% - Immature Granulocytes (promyelocytes, myelocytes andmetamyelocytes) > 1% indicates that a LEFT SHIFT is Present. Performed By: #### L 500.3400, L500.2500, L100.0100, L501.2450 #### [address] [place], [address] Lymphocytes/100 WBC (Bld) 19.4 % Normal 19-41 Comment on above: Performed By: #### L 500.3400, L500.2500, L100.0100, L501.2450 #### [address] [place], [address] MCH (RBC) [Entitic mass] 27.1 pg Normal 27.0-32.0 Comment on above: Performed By: #### L 500.3400, L500.2500, L100.0100, L501.2450 #### [address] [place], [address] MCHC (RBC) [Mass/Vol] 32.7 g/dL Normal 32-36 [facility] Comment on above: Performed By: #### L 500.3400, L500.2500, L100.0100, L501.2450 #### [address] [place], [address] MCV (RBC) [Entitic vol] 82.8 fL Normal 80-94 [facility] Comment on above: Performed By: #### L 500.3400, L500.2500, L100.0100, L501.2450 #### [address] [place], [address] Monocytes/100 WBC (Bld) 5.9 % Normal 0-10 [facility] Comment on above: Performed By: #### L 500.3400, L500.2500, L100.0100, L501.2450 #### [address] [place], [address] Neutrophils/100 WBC (Bld) 72.1 % High 47-70 Comment on above: Performed By: #### L 500.3400, L500.2500, L100.0100, L501.2450 #### [id number] [place], [address] Nucleated RBC (Bld) [#/Vol] 0 10*3/uL Normal 0-5 Comment on above: Performed By: #### L 500.3400, L500.2500, L100.0100, L501.2450 #### [address] [place], [address] Platelet mean volume (Bld) [Entitic vol] 8.9 fL Normal 6.2-12.0 Comment on above: Performed By: #### L 500.3400, L500.2500, L100.0100, L501.2450 #### [address] [place], [address] Platelets (Bld) [#/Vol] 487 10*3/uL High 150-450 Comment on above: Performed By: #### L 500.3400, L500.2500, L100.0100, L501.2450 #### [address] [place], [address] RBC (Bld) [#/Vol] 5.17 10*6/uL Normal 4.6-6.2 [facility] Comment on above: Performed By: #### L 500.3400, L500.2500, L100.0100, L501.2450 #### [address] [place], [address] RDW SD 47.8 fl High 35.1-43.9 Comment on above: Performed By: #### L 500.3400, L500.2500, L100.0100, L501.2450 #### [address] [place], [address] WBC (Bld) [#/Vol] 12.6 10*3/uL High 4.4-11.0 [facility] Comment on above: Performed By: #### L 500.3400, L500.2500, L100.0100, L501.2450 #### [address] [place], [address] Calcium oxalate crystals LM Ql (Urine sed)Ordered By: Rico Moore on 07-14-2024 Urine Calcium Oxalate Crystals RARE /hpf Calcium oxalate crystals det ection in urine sediment by light microscopyOrdered By: Rico Moore on 07-14-2024 Calcium oxalate crystals LM Ql (Urine sed) RARE /hpf Carbon dioxide measurementOr dered By: Rico Moore on 07-14-2024 CO2 [Moles/Vol] 26.0 mmol/L 21.0-32.0 Chest 1 View (Portable)on Chest 1 View (Portable) Normal [facility] Chloride measurementOrdered By: Rico Moore on 07-14-2024 Chloride [Moles/Vol] 103 mmol/L 98-107 [facility] Emergency Department Summary on 07-14-2024 Emergency Department Summary Normal Eosinophil percentageOrdered By: Rico Moore on 07-14-2024 Eosinophils/100 WBC (Bld) 1.4 % 0-5 Epithelial cells.squamous LM Ql (Urine sed)Ordered By: Rico Moore on 07-14-2024 Epithelial cells.squamous LM.HPF (Urine sed) [#/Area] 0 /[HPF] 0-5 [facility] Erythrocyte distribution wid th (RBC) [Ratio]Ordered By: Rico Moore on 07-14-2024 Erythrocyte distribution width (RBC) [Entitic vol] 47.8 fL High 35.1-43.9 [facility] Erythrocyte distribution wid th ratioOrdered By: Rico Moore on 07-14-2024 Erythrocyte distribution width (RBC) [Ratio] 15.9 % High 11.6-14.6 Erythrocyte distribution wid th standard deviationOrdered By: Rico Moore on 07-14-2024 Erythrocyte distribution width (RBC) [Ratio] 47.8 fl High 35.1-43.9 Estimated glomerular filtrat ion rate (GFR) AmericanOrdered By: Rico Moore on 07-14-2024 Estimated GFR (MDRD) Amer 156 mL/min >60 Comment on above: GFR Calc Estimation of creatinine elzbieta aranceOrdered By: Rico Moore on 07-14-2024 Estimated Creatinine Clearance Calc 125.25 ml/min Glomerular filtration rate ( GFR) estimationOrdered By: Rico Moore on 07-14-2024 Estimated GFR (MDRD) Non-Af Amer 129 mL/min >60 Comment on above: Non- GFR Calc GFR/1.73 sq M.predicted among non-blacks MDRD (S/P/Bld) [Vol rate/Area] 129 mL/min/{1.73_m2} >60 [facility] Comment on above: Non- GFR Calc Glucose Ql (U)Ordered By: Thomas Moore on 07-14-2024 Urine Glucose (UA) Normal mg/dl Normal [facility] Glucose measurementOrdered B y: Rico Moore on 07-14-2024 Glucose [Mass/Vol] 110 mg/dL High 74-106 [facility] Comment on above: Fasting Glucose resu lt from 100 to 125 mg/dL suggests IMPAIRED HOMEOSTASIS per A.D.A. criteria. Hematocrit Auto (Bld) [Volum e fraction]Ordered By: Rico Moore on 07-14-2024 Hematocrit (Bld) [Volume fraction] 42.8 % 40-54 Hemoglobin measurementOrdere d By: Rico Moore on 07-14-2024 Hemoglobin (Bld) [Mass/Vol] 14.0 g/dL 13.0-16. 5 Immature granulocytes/100 WB C Auto (Bld)Ordered By: Rico Moore on 07-14-2024 Immature granulocytes/100 WBC (Bld) 0.600 % 0.0-0.9 Comment on above: IG% - Immature Granu locytes (promyelocytes, myelocytes and metamyelocytes) > 1% indicates that a LEFT SHIFT is Present. Ketones Test strip Ql (U)Ord ered By: Rico Moore on 07-14-2024 Ketones Ql (U) 150 mg/dl Abnormal Negative Comment on above: CRITICAL VALUE *HCAL LED TO GEORGE BARONE07/14/24 0758 Erica Bianchi.RESULTS READ BACK BY SAME. Laboratory - Chemistry and C hemistry - challengeOrdered By: Rico Moore on 07-14-2024 AST [Catalytic activity/Vol] 20 U/L 15-37 Lipaseon 07-14-2024 Lipase [Catalytic activity/Vol] 20 U/L Low 73-393 Comment on above: Performed By: #### L 500.3400, L500.2500, L100.0100, L501.2450 #### [id number] [place], [place], [id number] Lipase measurementOrdered By : Rcio Moore on 07-14-2024 Lipase [Catalytic activity/Vol] 20 U/L Low 73-393 Liver Profileon 07-14-2024 Albumin [Mass/Vol] 2.5 g/dL Low 3.2-5.0 [facility] Comment on above: Performed By: #### L 500.3400, L500.2500, L100.0100, L501.2450 #### [id number] [place], [place], [id number] ALK P 117 U/L Normal 45-117 Comment on above: Performed By: #### L 500.3400, L500.2500, L100.0100, L501.2450 #### [id number] [place], [address] ALT [Catalytic activity/Vol] 19 U/L Normal 16-61 Comment on above: Performed By: #### L 500.3400, L500.2500, L100.0100, L501.2450 #### [id number] [place], [address] AST [Catalytic activity/Vol] 20 U/L Normal 15-37 Comment on above: Performed By: #### L 500.3400, L500.2500, L100.0100, L501.2450 #### [id number] [place], [address] Bilirubin [Mass/Vol] 0.30 mg/dL Normal 0.20-1.00 [facility] Comment on above: Result Comment: For patients on eltrombopag therapy, use of Dimension Max TBIL is not recommended. Performed By: #### L 500.3400, L500.2500, L100.0100, L501.2450 #### [id number] [place], [address] Bilirubin.direct [Mass/Vol] 0.13 mg/dL Normal 0.00-0.3 0 Comment on above: Performed By: #### L 500.3400, L500.2500, L100.0100, L501.2450 #### [id number] [place], [address] Globulin (S) [Mass/Vol] 5.2 g/dL High 2.2-4.2 [facility] Comment on above: Performed By: #### L 500.3400, L500.2500, L100.0100, L501.2450 #### [id number] [place], [address] T PROT 7.7 g/dL Normal 6.4-8.2 Comment on above: Performed By: #### L 500.3400, L500.2500, L100.0100, L501.2450 #### [id number] [place], [address] Lymphocytes Auto (Unsp spec) [#/Vol]Ordered By: Rico Moore on 07-14-2024 Lymphocytes (Bld) [#/Vol] 2.44 10*3/uL 0.83-4.5 1 Lymphocytes/100 WBC Auto (Un sp spec)Ordered By: Rico Moore on 07-14-2024 Lymphocytes/100 WBC (Bld) 19.4 % 19-41 MCV (mean corpuscular volume ) determinationOrdered By: Rico Moore on 07-14-2024 MCV (RBC) [Entitic vol] 82.8 fL 80-94 [facility] Mean corpuscular hemoglobin (MCH) determinationOrdered By: Rico Moore on 07-14-2024 MCH (RBC) [Entitic mass] 27.1 pg 27.0-32.0 Mean corpuscular hemoglobin concentration (MCHC) determinationOrdered By: Rico Moore on 07-14-2024 MCHC (RBC) [Mass/Vol] 32.7 g/dL 32-36 [facility] Mean platelet volume determi nationOrdered By: Rico Moore on 07-14-2024 Platelet mean volume (Bld) [Entitic vol] 8.9 fL 6.2-12.0 Microscopic analysis of urin e for red blood cells (RBC)Ordered By: Rico Moore on 07-14-2024 Microscopic analysis of urine for red blood cells (RBC) 0 SEEN /hpf 0-5 Urine RBC 0 SEEN /hpf 0-5 Monocyte percentageOrdered B y: Rico Moore on 07-14-2024 Monocytes/100 WBC (Bld) 5.9 % 0-10 [facility] Mucus LM Ql (Urine sed)Order ed By: Rico Moore on 07-14-2024 Mucus Ql (Urine sed) 0 SEEN /hpf [facility] Neutrophil percentageOrdered By: Rico Moore on 07-14-2024 Neutrophils/100 WBC (Bld) 72.1 % High 47-70 Nitrite Test strip Ql (U)Ord ered By: Rico Moore on 07-14-2024 Nitrite Ql (U) Positive High Negative Nucleated red blood cell per centageOrdered By: Rico Moore on 07-14-2024 Nucleated RBC/100 WBC (Bld) [Ratio] 0 % 0-5 Platelet countOrdered By: Thomas Moore on 07-14-2024 Platelets (Bld) [#/Vol] 487 10*3/uL High 150-450 Potassium measurementOrdered By: Rico Moore on 07-14-2024 Potassium [Moles/Vol] 3.6 mmol/L 3.5-5.1 [facility] Protein Test strip Ql (U)Ord ered By: Rico Moore on 07-14-2024 Protein Ql (U) 100 mg/dl High Negative RBC Auto (Bld) [#/Vol]Ordere d By: Rico Moore on 07-14-2024 RBC (Bld) [#/Vol] 5.17 10*6/uL 4.6-6.2 [facility] Serum anion gap measurementO rdered By: Rico Moore on 07-14-2024 Anion gap [Moles/Vol] 9 mmol/L 5-15 [facility] Serum globulin measurementOr dered By: Rico Moore on 07-14-2024 Globulin (S) [Mass/Vol] 5.2 g/dL High 2.2-4.2 [facility] Serum or plasma alanine hooper otransferase (ALT) measurementOrdered By: Rico Moore on 07-14-2024 ALT [Catalytic activity/Vol] 19 U/L 16-61 Serum or plasma albumin shantal urement (mass/volume)Ordered By: Rico Moore on 07-14-2024 Albumin [Mass/Vol] 2.5 g/dL Low 3.2-5.0 [facility] Serum or plasma alkaline radha sphatase measurementOrdered By: Rico Moore on 07-14-2024 ALP [Catalytic activity/Vol] 117 U/L 45-117 Serum or plasma calcium shantal urement (mass/volume)Ordered By: Rico Moore on 07-14-2024 Calcium [Mass/Vol] 9.5 mg/dL 8.5-10.1 [facility] Serum or plasma creatinine m easurement (mass/volume)Ordered By: Rico Moore on 07-14-2024 Creatinine [Mass/Vol] 0.66 mg/dL Low 0.70-1.30 [facility] Comment on above: The validity of the calculated GFR & GFRAA in patients over 70 years has not been determined. Clinical correlation is essential. Serum or plasma urea nitroge n measurement (mass/volume)Ordered By: Rico Moore on 07-14-2024 Urea nitrogen [Mass/Vol] 14 mg/dL 7-18 Sodium levelOrdered By: Bhaskar Moore on 07-14-2024 Sodium [Moles/Vol] 139 mmol/L 136-145 [facility] Squamous epithelial cells de tection in urine sediment by light microscopyOrdered By: Rico Moore on 07-14-2024 Epithelial cells.squamous LM Ql (Urine sed) 0-5 SEEN /hpf 0-5 Total proteinOrdered By: Charles Moore on 07-14-2024 Protein [Mass/Vol] 7.7 g/dL 6.4-8.2 [facility] Urinalysis, Completeon 07-14 RBC 0 SEEN Normal 0-5 Comment on above: Order Comment: GOOD TER SPECIMEN Performed By: #### L 400.0001 #### [id number] [place], [address] BACTERIA RARE Normal None Seen Comment on above: Order Comment: GOOD TER SPECIMEN Performed By: #### L 400.0001 #### [id number] [place], [address] CA OX CRYSTAL RARE Normal Comment on above: Order Comment: GOOD TER SPECIMEN Performed By: #### L 400.0001 #### [id number] [place], [address] EPI,SQUAMOUS 0-5 SEEN Normal 0-5 Comment on above: Order Comment: GOOD TER SPECIMEN Performed By: #### L 400.0001 #### [id number] [place], [address] WBC >100 SEEN Normal 0-5 Comment on above: Order Comment: GOOD TER SPECIMEN Performed By: #### L 400.0001 #### [id number] [place], [address] Mucus Ql (Urine sed) 0 SEEN Normal [facility] Comment on above: Order Comment: GOOD TER SPECIMEN Performed By: #### L 400.0001 #### [id number] [place], [address] Urine blood detectionOrdered By: Rico Moore on 07-14-2024 Urine Occult Blood 50 /ul High Negative [facility] Urine clarityOrdered By: Charles Moore on 07-14-2024 Clarity (U) Cloudy Clear Urine color determinationOrd ered By: Rico Moore on 07-14-2024 Color (U) Yellow Yellow Urine glucose detectionOrder ed By: Rico Moore on 07-14-2024 Glucose Ql (U) Normal mg/dl Normal Urine leukocyte esterase det ection by dipstickOrdered By: Rico Moore on 07-14-2024 Leukocyte esterase Test strip Ql (U) 500 /ul High Negative Urine pHOrdered By: Rico vang on 07-14-2024 pH (U) 5.0 [pH] 5.0 - 8.0 Urine sediment bacteria coun t by microscopy (number/high power field)Ordered By: Rico Moore on 07-14-2024 Bacteria LM.HPF (Urine sed) [#/Area] RARE /hpf None Seen Urine specific gravity measu rementOrdered By: Rico Moore on 07-14-2024 Specific gravity (U) [Rel density] 1.025 1.002-1.03 0 Urine urobilinogen measureme ntOrdered By: Rico Moore on 07-14-2024 Urobilinogen Ql (U) Normal mg/dl Normal [facility] Urobilinogen Ql (U)Ordered B y: Rico Moore on 07-14-2024 Urine Urobilinogen Normal mg/dl Normal [facility] White blood cell (WBC) count Ordered By: Rico Moore on 07-14-2024 WBC (Bld) [#/Vol] 12.6 10*3/uL High 4.4-11.0 [facility] White blood cell countOrdere d By: Rico Moore on 07-14-2024 Urine WBC >100 SEEN /hpf 0-5 White blood cell count >100 SEEN /hpf 0-5 12 Lead EKGon 07-13-2024 12 Lead EKG Normal Absolute lymphocyte countOrd ered By: Richie Borden on 07-13-2024 Lymphocytes Auto (Unsp spec) [#/Vol] 3.25 10*3/uL 0.83-4.51 Absolute neutrophil countOrd ered By: Richie Borden on 07-13-2024 Neutrophils (Bld) [#/Vol] 9.2 10*3/uL High 2.0-7.7 Automated lymphocyte count a s percentage of total leukocytesOrdered By: Richie Borden on 07-13-2024 Lymphocytes/100 WBC Auto (Unsp spec) 22.6 % 19-41 Basic Metabolic Profile (BMP )on 07-13-2024 BUN/CRE 17.5 RATIO Normal 10-20 Comment on above: Order Comment: 'TROP ' Serial specimen #1, #2 or #3: 1 Performed By: #### L 501.4020, L500.3400, L501.2450, L100.0100, L500.2500, L300.8000 #### [id number] [place], [address] CA,Total 9.4 mg/dL Normal 8.5-10.1 Comment on above: Order Comment: 'TROP ' Serial specimen #1, #2 or #3: 1 Performed By: #### L 501.4020, L500.3400, L501.2450, L100.0100, L500.2500, L300.8000 #### [id number] [place], [address] Chloride [Moles/Vol] 104 mmol/L Normal 98-107 [facility] Comment on above: Order Comment: 'TROP ' Serial specimen #1, #2 or #3: 1 Performed By: #### L 501.4020, L500.3400, L501.2450, L100.0100, L500.2500, L300.8000 #### [id number] [place], [address] CO2 [Moles/Vol] 27.0 mmol/L Normal 21.0-32.0 Comment on above: Order Comment: 'TROP ' Serial specimen #1, #2 or #3: 1 Performed By: #### L 501.4020, L500.3400, L501.2450, L100.0100, L500.2500, L300.8000 #### [id number] [place], [address] Creatinine [Mass/Vol] 0.63 mg/dL Low 0.70-1.30 [facility] Comment on above: Order Comment: 'TROP ' Serial specimen #1, #2 or #3: 1 Result Comment: The validity of the calculated GFR GFRAA in patients over70 years has not been determined. Clinical correlation isessential. Performed By: #### L 501.4020, L500.3400, L501.2450, L100.0100, L500.2500, L300.8000 #### [id number] [place], [address] ECRCL 120.02 ml/min Normal Comment on above: Order Comment: 'TROP ' Serial specimen #1, #2 or #3: 1 Performed By: #### L 501.4020, L500.3400, L501.2450, L100.0100, L500.2500, L300.8000 #### [id number] [place], [address] EST GFR - AA 166 mL/min Normal >60 Comment on above: Order Comment: 'TROP ' Serial specimen #1, #2 or #3: 1 Result Comment: Afri can [place] GFR Calc Performed By: #### L 501.4020, L500.3400, L501.2450, L100.0100, L500.2500, L300.8000 #### [id number] [place], [address] GAP 6 Normal 5-15 Comment on above: Order Comment: 'TROP ' Serial specimen #1, #2 or #3: 1 Performed By: #### L 501.4020, L500.3400, L501.2450, L100.0100, L500.2500, L300.8000 #### [id number] [place], [address] GFR/1.73 sq M.predicted among non-blacks MDRD (S/P/Bld) [Vol rate/Area] 137 mL/min/{1.73_m2} Normal >60 [facility] Comment on above: Order Comment: 'TROP ' Serial specimen #1, #2 or #3: 1 Result Comment: Non- GFR Calc Performed By: #### L 501.4020, L500.3400, L501.2450, L100.0100, L500.2500, L300.8000 #### [id number] [place], [address] Glucose [Mass/Vol] 122 mg/dL High 74-106 [facility] Comment on above: Order Comment: 'TROP ' Serial specimen #1, #2 or #3: 1 Result Comment: Fast ing Glucose result from 100 to 125 mg/dLsuggests IMPAIRED HOMEOSTASIS per A.D.A. criteria. Performed By: #### L 501.4020, L500.3400, L501.2450, L100.0100, L500.2500, L300.8000 #### [id number] [place], [address] Potassium [Moles/Vol] 3.6 mmol/L Normal 3.5-5.1 [facility] Comment on above: Order Comment: 'TROP ' Serial specimen #1, #2 or #3: 1 Performed By: #### L 501.4020, L500.3400, L501.2450, L100.0100, L500.2500, L300.8000 #### [id number] [place], [address] Sodium [Moles/Vol] 137 mmol/L Normal 136-145 [facility] Comment on above: Order Comment: 'TROP ' Serial specimen #1, #2 or #3: 1 Performed By: #### L 501.4020, L500.3400, L501.2450, L100.0100, L500.2500, L300.8000 #### [id number] [place], [address] Urea nitrogen [Mass/Vol] 11 mg/dL Normal 7-18 Comment on above: Order Comment: 'TROP ' Serial specimen #1, #2 or #3: 1 Performed By: #### L 501.4020, L500.3400, L501.2450, L100.0100, L500.2500, L300.8000 #### [address] [place], [address] Basophil percentageOrdered B y: Richie Borden on 07-13-2024 Basophils/100 WBC (Bld) 0.5 % 0-1 [facility] Bilirubin directOrdered By: Richie Borden on 07-13-2024 Bilirubin.direct [Mass/Vol] 0.15 mg/dL 0.00-0.3 0 Bilirubin, totalOrdered By: Richie Borden on 07-13-2024 Bilirubin [Mass/Vol] 0.30 mg/dL 0.20-1.00 [facility] Comment on above: For patients on eltr ombopag therapy, use of Dimension Max TBIL is not recommended. Blood urea nitrogen (BUN)/cr eatinine ratioOrdered By: Richie Borden on 07-13-2024 Urea nitrogen/Creatinine [Mass ratio] 17.5 mg/mg 10-20 CBC W/Diff, Automatedon 06-29 Absolute Lymph 3.25 X10 3/uL Normal 0.83-4.51 Comment on above: Performed By: #### L 501.4020, L500.3400, L501.2450, L100.0100, L500.2500, L300.8000 #### [id number] [place], [address] Absolute Neut 9.2 X10 3/uL High 2.0-7.7 Comment on above: Performed By: #### L 501.4020, L500.3400, L501.2450, L100.0100, L500.2500, L300.8000 #### [id number] [place], [address] Basophils/100 WBC (Bld) 0.5 % Normal 0-1 [facility] Comment on above: Performed By: #### L 501.4020, L500.3400, L501.2450, L100.0100, L500.2500, L300.8000 #### [id number] [place], [address] Eosinophils/100 WBC (Bld) 3.1 % Normal 0-5 Comment on above: Performed By: #### L 501.4020, L500.3400, L501.2450, L100.0100, L500.2500, L300.8000 #### [id number] [place], [address] Erythrocyte distribution width (RBC) [Ratio] 15.9 % High 11.6-14.6 Comment on above: Performed By: #### L 501.4020, L500.3400, L501.2450, L100.0100, L500.2500, L300.8000 #### [address] [place], [address] Hematocrit (Bld) [Volume fraction] 43.8 % Normal 40-54 Comment on above: Performed By: #### L 501.4020, L500.3400, L501.2450, L100.0100, L500.2500, L300.8000 #### [id number] [place], [address] Hemoglobin (Bld) [Mass/Vol] 14.2 g/dL Normal 13.0-16. 5 Comment on above: Performed By: #### L 501.4020, L500.3400, L501.2450, L100.0100, L500.2500, L300.8000 #### [address] [place], [address] IG% 0.400 Normal 0.0-0.9 Comment on above: Result Comment: IG% - Immature Granulocytes (promyelocytes, myelocytes andmetamyelocytes) > 1% indicates that a LEFT SHIFT is Present. Performed By: #### L 501.4020, L500.3400, L501.2450, L100.0100, L500.2500, L300.8000 #### [id number] [place], [address] Lymphocytes/100 WBC (Bld) 22.6 % Normal 19-41 Comment on above: Performed By: #### L 501.4020, L500.3400, L501.2450, L100.0100, L500.2500, L300.8000 #### [id number] [place], [address] MCH (RBC) [Entitic mass] 26.8 pg Low 27.0-32.0 Comment on above: Performed By: #### L 501.4020, L500.3400, L501.2450, L100.0100, L500.2500, L300.8000 #### [address] [place], [address] MCHC (RBC) [Mass/Vol] 32.4 g/dL Normal 32-36 [facility] Comment on above: Performed By: #### L 501.4020, L500.3400, L501.2450, L100.0100, L500.2500, L300.8000 #### [id number] [place], [address] MCV (RBC) [Entitic vol] 82.6 fL Normal 80-94 [facility] Comment on above: Performed By: #### L 501.4020, L500.3400, L501.2450, L100.0100, L500.2500, L300.8000 #### [address] [place], [address] Monocytes/100 WBC (Bld) 9.5 % Normal 0-10 [facility] Comment on above: Performed By: #### L 501.4020, L500.3400, L501.2450, L100.0100, L500.2500, L300.8000 #### [address] [place], [address] Neutrophils/100 WBC (Bld) 63.9 % Normal 47-70 Comment on above: Performed By: #### L 501.4020, L500.3400, L501.2450, L100.0100, L500.2500, L300.8000 #### [id number] [place], [address] Nucleated RBC (Bld) [#/Vol] 0 10*3/uL Normal 0-5 Comment on above: Performed By: #### L 501.4020, L500.3400, L501.2450, L100.0100, L500.2500, L300.8000 #### [address] [place], [address] Platelet mean volume (Bld) [Entitic vol] 8.6 fL Normal 6.2-12.0 Comment on above: Performed By: #### L 501.4020, L500.3400, L501.2450, L100.0100, L500.2500, L300.8000 #### [address] [place], [address] Platelets (Bld) [#/Vol] 477 10*3/uL High 150-450 Comment on above: Performed By: #### L 501.4020, L500.3400, L501.2450, L100.0100, L500.2500, L300.8000 #### [id number] [place], [address] RBC (Bld) [#/Vol] 5.30 10*6/uL Normal 4.6-6.2 [facility] Comment on above: Performed By: #### L 501.4020, L500.3400, L501.2450, L100.0100, L500.2500, L300.8000 #### [id number] [place], [address] RDW SD 47.9 fl High 35.1-43.9 Comment on above: Performed By: #### L 501.4020, L500.3400, L501.2450, L100.0100, L500.2500, L300.8000 #### [address] [place], [address] WBC (Bld) [#/Vol] 14.4 10*3/uL High 4.4-11.0 [facility] Comment on above: Performed By: #### L 501.4020, L500.3400, L501.2450, L100.0100, L500.2500, L300.8000 #### [id number] [place], [address] CTA Chest W/WO Contraston CTA Chest W/WO Contrast Normal [facility] Carbon dioxide measurementOr dered By: Richie Borden on 07-13-2024 CO2 [Moles/Vol] 27.0 mmol/L 21.0-32.0 Chest 1 View (Portable)on Chest 1 View (Portable) Normal [facility] Chloride measurementOrdered By: Richie Borden on 07-13-2024 Chloride [Moles/Vol] 104 mmol/L 98-107 [facility] D-Dimer Quantitative (DVT/PE )on 07-13-2024 D-DIMER QUANT 0.88 FEU/ug/m Invalid Interpretation Code 0.27-0.49 Comment on above: Result Comment: D-Di rick ELEVATED (>0.49): Additional studies and clinicalassessments are indicated to conclude diagnosis of:Deep Vein Thrombosis (DVT) or Pulmonary Embolism (PE)CRITICAL VALUE CALLED TO [facility]I [facility]07/13/24 0417 Graham Osorio.RESULTS READ BACK BY SAME. Performed By: #### L 501.4020, L500.3400, L501.2450, L100.0100, L500.2500, L300.8000 #### [id number] [place], [address] D-dimer measurement for deep venous thrombosisOrdered By: Ricihe Borden on 07-13-2024 D-Dimer Quantitative (PE/DVT) 0.88 FEU/ug/m High 0.27-0.49 Comment on above: D-Dimer ELEVATED (>0 .49): Additional studies and clinicalassessments are indicated to conclude diagnosis of:Deep Vein Thrombosis (DVT) or Pulmonary Embolism (PE)CRITICAL VALUE CALLED TO ABISAI [facility]07/13/24 0417 Graham Osorio.RESULTS READ BACK BY SAME. Emergency Department Summary on 07-13-2024 Emergency Department Summary Normal Eosinophil percentageOrdered By: Richie Borden on 07-13-2024 Eosinophils/100 WBC (Bld) 3.1 % 0-5 Erythrocyte distribution wid th (RBC) [Ratio]Ordered By: Richie Borden on 07-13-2024 Erythrocyte distribution width (RBC) [Entitic vol] 47.9 fL High 35.1-43.9 [facility] Erythrocyte distribution wid th ratioOrdered By: Richie Borden on 07-13-2024 Erythrocyte distribution width (RBC) [Ratio] 15.9 % High 11.6-14.6 Erythrocyte distribution wid th standard deviationOrdered By: Richie Borden on 07-13-2024 Erythrocyte distribution width (RBC) [Ratio] 47.9 fl High 35.1-43.9 Estimated glomerular filtrat ion rate (GFR) AmericanOrdered By: Richie Borden on 07-13-2024 Estimated GFR (MDRD) Amer 166 mL/min >60 Comment on above: GFR Calc Estimation of creatinine elzbieta aranceOrdered By: Richie Borden on 07-13-2024 Estimated Creatinine Clearance Calc 120.02 ml/min Glomerular filtration rate ( GFR) estimationOrdered By: Richie Borden on 07-13-2024 Estimated GFR (MDRD) Non-Af Amer 137 mL/min >60 Comment on above: Non- GFR Calc GFR/1.73 sq M.predicted among non-blacks MDRD (S/P/Bld) [Vol rate/Area] 137 mL/min/{1.73_m2} >60 [facility] Comment on above: Non- GFR Calc Glucose measurementOrdered B y: Richie Borden on 07-13-2024 Glucose [Mass/Vol] 122 mg/dL High 74-106 [facility] Comment on above: Fasting Glucose resu lt from 100 to 125 mg/dL suggests IMPAIRED HOMEOSTASIS per A.D.A. criteria. Hematocrit Auto (Bld) [Volum e fraction]Ordered By: Richie Borden on 07-13-2024 Hematocrit (Bld) [Volume fraction] 43.8 % 40-54 Hemoglobin measurementOrdere d By: Richie Borden on 07-13-2024 Hemoglobin (Bld) [Mass/Vol] 14.2 g/dL 13.0-16. 5 Immature granulocytes/100 WB C Auto (Bld)Ordered By: Richie Borden on 07-13-2024 Immature granulocytes/100 WBC (Bld) 0.400 % 0.0-0.9 Comment on above: IG% - Immature Granu locytes (promyelocytes, myelocytes and metamyelocytes) > 1% indicates that a LEFT SHIFT is Present. Influenza virus A and B and SARS-CoV-2 (COVID-19) and Respiratory syncytial virus RNAOrdered By: Richie Borden on 07-13-2024 SARS-CoV-2 (COVID-19) RNA ZEKE+probe Ql (Unsp spec) L501.4020on 07-13-2024 TROPONIN-I HS 6 pg/mL Normal 3.0-78.0 Comment on above: Order Comment: 'TROP ' Serial specimen #1, #2 or #3: 2 Result Comment: Siri anaya Note: New Test Units and Gender Specific Reference Ranges. For more information see Policy Stat Procedure Max High Sensitivity Troponin (TNIH) and attachments. Performed By: #### L 518.1001 #### [id number] [place], [address] TROPONIN-I HS 7 pg/mL Normal 3.0-78.0 Comment on above: Order Comment: 'TROP ' Serial specimen #1, #2 or #3: 1 Result Comment: Siri anaya Note: New Test Units and Gender Specific Reference Ranges. For more information see Policy Stat Procedure Max High Sensitivity Troponin (TNIH) and attachments. Performed By: #### L 501.4020, L500.3400, L501.2450, L100.0100, L500.2500, L300.8000 #### [id number] [place], [address] Laboratory - Chemistry and C hemistry - challengeOrdered By: Richie Borden on 07-13-2024 AST [Catalytic activity/Vol] 25 U/L 15-37 Lipaseon 07-13-2024 Lipase [Catalytic activity/Vol] 17 U/L Low 73-393 Comment on above: Order Comment: 'TROP ' Serial specimen #1, #2 or #3: 1 Performed By: #### L 501.4020, L500.3400, L501.2450, L100.0100, L500.2500, L300.8000 #### [address] [place], [address] Lipase measurementOrdered By : Richie Borden on 07-13-2024 Lipase [Catalytic activity/Vol] 17 U/L Low 73-393 Liver Profileon 07-13-2024 Albumin [Mass/Vol] 2.5 g/dL Low 3.2-5.0 [facility] Comment on above: Order Comment: 'TROP ' Serial specimen #1, #2 or #3: 1 Performed By: #### L 501.4020, L500.3400, L501.2450, L100.0100, L500.2500, L300.8000 #### [id number] [place], [address] ALK P 124 U/L High 45-117 Comment on above: Order Comment: 'TROP ' Serial specimen #1, #2 or #3: 1 Performed By: #### L 501.4020, L500.3400, L501.2450, L100.0100, L500.2500, L300.8000 #### [address] [place], [address] ALT [Catalytic activity/Vol] 24 U/L Normal 16-61 Comment on above: Order Comment: 'TROP ' Serial specimen #1, #2 or #3: 1 Performed By: #### L 501.4020, L500.3400, L501.2450, L100.0100, L500.2500, L300.8000 #### [id number] [place], [address] AST [Catalytic activity/Vol] 25 U/L Normal 15-37 Comment on above: Order Comment: 'TROP ' Serial specimen #1, #2 or #3: 1 Performed By: #### L 501.4020, L500.3400, L501.2450, L100.0100, L500.2500, L300.8000 #### [id number] [place], [address] Bilirubin [Mass/Vol] 0.30 mg/dL Normal 0.20-1.00 [facility] Comment on above: Order Comment: 'TROP ' Serial specimen #1, #2 or #3: 1 Result Comment: For patients on eltrombopag therapy, use of Dimension Max TBIL is not recommended. Performed By: #### L 501.4020, L500.3400, L501.2450, L100.0100, L500.2500, L300.8000 #### [id number] [place], [address] Bilirubin.direct [Mass/Vol] 0.15 mg/dL Normal 0.00-0.3 0 Comment on above: Order Comment: 'TROP ' Serial specimen #1, #2 or #3: 1 Performed By: #### L 501.4020, L500.3400, L501.2450, L100.0100, L500.2500, L300.8000 #### [id number] [place], [address] Globulin (S) [Mass/Vol] 5.7 g/dL High 2.2-4.2 [facility] Comment on above: Order Comment: 'TROP ' Serial specimen #1, #2 or #3: 1 Performed By: #### L 501.4020, L500.3400, L501.2450, L100.0100, L500.2500, L300.8000 #### [id number] [place], [address] T PROT 8.2 g/dL Normal 6.4-8.2 Comment on above: Order Comment: 'TROP ' Serial specimen #1, #2 or #3: 1 Performed By: #### L 501.4020, L500.3400, L501.2450, L100.0100, L500.2500, L300.8000 #### [id number] [place], [address] Lymphocytes Auto (Unsp spec) [#/Vol]Ordered By: Richie Borden on 07-13-2024 Lymphocytes (Bld) [#/Vol] 3.25 10*3/uL 0.83-4.5 1 Lymphocytes/100 WBC Auto (Un sp spec)Ordered By: Richie Borden on 07-13-2024 Lymphocytes/100 WBC (Bld) 22.6 % 19-41 M100.678on 07-13-2024 M100.678 SARS-CoV-2 (COVID 19 ) Negative INFLUENZA A Negative INFLUENZA B Negative RSV PCR Negative Normal Comment on above: Performed By: #### M 100.678 #### [id number] [place], [address] MCV (mean corpuscular volume ) determinationOrdered By: Richie Borden on 07-13-2024 MCV (RBC) [Entitic vol] 82.6 fL 80-94 [facility] Mean corpuscular hemoglobin (MCH) determinationOrdered By: Richie Borden on 07-13-2024 MCH (RBC) [Entitic mass] 26.8 pg Low 27.0-32.0 Mean corpuscular hemoglobin concentration (MCHC) determinationOrdered By: Richie Borden on 07-13-2024 MCHC (RBC) [Mass/Vol] 32.4 g/dL 32-36 [facility] Mean platelet volume determi nationOrdered By: Richie Borden on 07-13-2024 Platelet mean volume (Bld) [Entitic vol] 8.6 fL 6.2-12.0 Monocyte percentageOrdered B y: Richie Borden on 07-13-2024 Monocytes/100 WBC (Bld) 9.5 % 0-10 [facility] Neutrophil percentageOrdered By: Richie Borden on 07-13-2024 Neutrophils/100 WBC (Bld) 63.9 % 47-70 Nucleated red blood cell per centageOrdered By: Richie Borden on 07-13-2024 Nucleated RBC/100 WBC (Bld) [Ratio] 0 % 0-5 Platelet countOrdered By: Yvonne Borden on 07-13-2024 Platelets (Bld) [#/Vol] 477 10*3/uL High 150-450 Potassium measurementOrdered By: Richie Borden on 07-13-2024 Potassium [Moles/Vol] 3.6 mmol/L 3.5-5.1 [facility] RBC Auto (Bld) [#/Vol]Ordere d By: Richie Borden on 07-13-2024 RBC (Bld) [#/Vol] 5.30 10*6/uL 4.6-6.2 [facility] Serum anion gap measurementO rdered By: Richie Borden on 07-13-2024 Anion gap [Moles/Vol] 6 mmol/L 5-15 [facility] Serum globulin measurementOr dered By: Richie Borden on 07-13-2024 Globulin (S) [Mass/Vol] 5.7 g/dL High 2.2-4.2 [facility] Serum or plasma alanine hooper otransferase (ALT) measurementOrdered By: Richie Borden on 07-13-2024 ALT [Catalytic activity/Vol] 24 U/L 16-61 Serum or plasma albumin shantal urement (mass/volume)Ordered By: Richie Borden on 07-13-2024 Albumin [Mass/Vol] 2.5 g/dL Low 3.2-5.0 [facility] Serum or plasma alkaline radha sphatase measurementOrdered By: Richie Borden on 07-13-2024 ALP [Catalytic activity/Vol] 124 U/L High 45-117 Serum or plasma calcium shantal urement (mass/volume)Ordered By: Richie Borden on 07-13-2024 Calcium [Mass/Vol] 9.4 mg/dL 8.5-10.1 [facility] Serum or plasma creatinine m easurement (mass/volume)Ordered By: Richie Borden on 07-13-2024 Creatinine [Mass/Vol] 0.63 mg/dL Low 0.70-1.30 [facility] Comment on above: The validity of the calculated GFR & GFRAA in patients over 70 years has not been determined. Clinical correlation is essential. Serum or plasma urea nitroge n measurement (mass/volume)Ordered By: Richie Borden on 07-13-2024 Urea nitrogen [Mass/Vol] 11 mg/dL 7-18 Sodium levelOrdered By: Yuriy Borden on 07-13-2024 Sodium [Moles/Vol] 137 mmol/L 136-145 [facility] Total proteinOrdered By: Isidro Borden on 07-13-2024 Protein [Mass/Vol] 8.2 g/dL 6.4-8.2 [facility] Troponin IOrdered By: Richie Borden on 07-13-2024 Troponin I 6 pg/mL 3.0-78.0 Comment on above: Please Note: New Tanya t Units and Gender Specific Reference Ranges. For more information see Policy Stat Procedure Max High Sensitivity Troponin (TNIH) and attachments. Troponin I High Sensitivity 6 pg/mL 3.0-78.0 Comment on above: Please Note: New Tanya t Units and Gender Specific Reference Ranges. For more information see Policy Stat Procedure Max High Sensitivity Troponin (TNIH) and attachments. White blood cell (WBC) count Ordered By: Richie Borden on 07-13-2024 WBC (Bld) [#/Vol] 14.4 10*3/uL High 4.4-11.0 [facility] Culture, Blood (WB)on 2024 CUB Blood cultures x2, from two different sites No growth in 5 days. Normal Comment on above: Performed By: #### L 300.3900, L100.0100, L503.6005, L500.4050, L300.4310, M200.1000 #### [id number] [place], [place], [id number] Discharge Instructionon 05-30 Discharge Instruction Normal [facility] Magnesiumon 06-18-2024 Magnesium [Mass/Vol] 1.9 mg/dL Normal 1.6-2.6 [facility] Comment on above: Performed By: #### L 501.5200, L501.2300 #### [id number] [place], [place], [id number] Magnesium measurementOrdered By: Ronak Cui on 06-18-2024 Magnesium [Mass/Vol] 1.9 mg/dL 1.6-2.6 [facility] Phosphoruson 06-18-2024 Phosphate [Mass/Vol] 3.7 mg/dL Normal 2.5-4.9 [facility] Comment on above: Performed By: #### L 501.5200, L501.2300 #### [id number] [place], [place], [id number] Phosphorus measurementOrdere d By: Ronak Cui on 06-18-2024 Phosphorus Level 3.7 mg/dL 2.5-4.9 Urine Cultureon 06-18-2024 URC Below infection leve rica GNR Poss Pseudomonas sp [place] Count 1000-10,000 Yeast, not Joleen albicans Yeast, not Joleen albicans Normal Comment on above: Performed By: #### M 100.2200, L400.0001 #### [id number] [place], [place], [id number] Absolute neutrophil countOrd ered By: Ronak Cui on 06-17-2024 Neutrophils (Bld) [#/Vol] 6.1 10*3/uL 2.0-7.7 Albumin to globulin ratioOrd ered By: Ronak Cui on 06-17-2024 Albumin/Globulin [Mass ratio] 0.6 {ratio} Low 0.9-2.4 Basophil percentageOrdered B y: Ronak Cui on 06-17-2024 Basophils/100 WBC (Bld) 0.7 % 0-1 [facility] Bilirubin, totalOrdered By: Ronak Cui on 06-17-2024 Bilirubin [Mass/Vol] 0.40 mg/dL 0.20-1.00 [facility] Comment on above: For patients on eltr ombopag therapy, use of Dimension Max TBIL is not recommended. Blood urea nitrogen (BUN)/cr eatinine ratioOrdered By: Ronak Cui on 06-17-2024 Urea nitrogen/Creatinine [Mass ratio] 14.0 mg/mg 03-17 CBC W/Diff, Automatedon 05-30 Absolute Lymph 2.50 X10 3/uL Normal 0.83-4.51 Comment on above: Performed By: #### L 501.5200, L100.0100, L501.2300, L500.4050, L501.9520 #### [id number] [place], [address] Absolute Neut 6.1 X10 3/uL Normal 2.0-7.7 Comment on above: Performed By: #### L 501.5200, L100.0100, L501.2300, L500.4050, L501.9520 #### [id number] [place], [address] Basophils/100 WBC (Bld) 0.7 % Normal 0-1 [facility] Comment on above: Performed By: #### L 501.5200, L100.0100, L501.2300, L500.4050, L501.9520 #### [address] [place], [address] Eosinophils/100 WBC (Bld) 5.5 % High 0-5 Comment on above: Performed By: #### L 501.5200, L100.0100, L501.2300, L500.4050, L501.9520 #### [id number] [place], [address] Erythrocyte distribution width (RBC) [Ratio] 16.3 % High 11.6-14.6 Comment on above: Performed By: #### L 501.5200, L100.0100, L501.2300, L500.4050, L501.9520 #### [id number] [place], [address] Hematocrit (Bld) [Volume fraction] 42.7 % Normal 40-54 Comment on above: Performed By: #### L 501.5200, L100.0100, L501.2300, L500.4050, L501.9520 #### [id number] [place], [address] Hemoglobin (Bld) [Mass/Vol] 13.9 g/dL Normal 13.0-16. 5 Comment on above: Performed By: #### L 501.5200, L100.0100, L501.2300, L500.4050, L501.9520 #### [id number] [place], [address] IG% 0.700 Normal 0.0-0.9 Comment on above: Result Comment: IG% - Immature Granulocytes (promyelocytes, myelocytes andmetamyelocytes) > 1% indicates that a LEFT SHIFT is Present. Performed By: #### L 501.5200, L100.0100, L501.2300, L500.4050, L501.9520 #### [id number] [place], [address] Lymphocytes/100 WBC (Bld) 24.1 % Normal 19-41 Comment on above: Performed By: #### L 501.5200, L100.0100, L501.2300, L500.4050, L501.9520 #### [address] [place], [address] MCH (RBC) [Entitic mass] 27.7 pg Normal 27.0-32.0 Comment on above: Performed By: #### L 501.5200, L100.0100, L501.2300, L500.4050, L501.9520 #### [address] [place], [address] MCHC (RBC) [Mass/Vol] 32.6 g/dL Normal 32-36 [facility] Comment on above: Performed By: #### L 501.5200, L100.0100, L501.2300, L500.4050, L501.9520 #### [address] [place], [address] MCV (RBC) [Entitic vol] 85.2 fL Normal 80-94 [facility] Comment on above: Performed By: #### L 501.5200, L100.0100, L501.2300, L500.4050, L501.9520 #### [address] [place], [address] Monocytes/100 WBC (Bld) 9.9 % Normal 0-10 [facility] Comment on above: Performed By: #### L 501.5200, L100.0100, L501.2300, L500.4050, L501.9520 #### [id number] [place], [address] Neutrophils/100 WBC (Bld) 59.1 % Normal 47-70 Comment on above: Performed By: #### L 501.5200, L100.0100, L501.2300, L500.4050, L501.9520 #### [id number] [place], [address] Nucleated RBC (Bld) [#/Vol] 0 10*3/uL Normal 0-5 Comment on above: Performed By: #### L 501.5200, L100.0100, L501.2300, L500.4050, L501.9520 #### [id number] [place], [address] Platelet mean volume (Bld) [Entitic vol] 9.0 fL Normal 6.2-12.0 Comment on above: Performed By: #### L 501.5200, L100.0100, L501.2300, L500.4050, L501.9520 #### [id number] [place], [address] Platelets (Bld) [#/Vol] 363 10*3/uL Normal 150-450 Comment on above: Performed By: #### L 501.5200, L100.0100, L501.2300, L500.4050, L501.9520 #### [address] [place], [address] RBC (Bld) [#/Vol] 5.01 10*6/uL Normal 4.6-6.2 [facility] Comment on above: Performed By: #### L 501.5200, L100.0100, L501.2300, L500.4050, L501.9520 #### [address] [place], [address] RDW SD 50.2 fl High 35.1-43.9 Comment on above: Performed By: #### L 501.5200, L100.0100, L501.2300, L500.4050, L501.9520 #### [address] [place], [address] WBC (Bld) [#/Vol] 10.4 10*3/uL Normal 4.4-11.0 [facility] Comment on above: Performed By: #### L 501.5200, L100.0100, L501.2300, L500.4050, L501.9520 #### [address] [place], [address] Carbon dioxide measurementOr dered By: Ronak Cui on 06-17-2024 CO2 [Moles/Vol] 24.0 mmol/L 21.0-32.0 Chloride measurementOrdered By: Ronak Cui on 06-17-2024 Chloride [Moles/Vol] 108 mmol/L High 98-107 [facility] Comprehensive Metabolic Prof ilon 06-17-2024 Albumin [Mass/Vol] 2.4 g/dL Low 3.2-5.0 [facility] Comment on above: Performed By: #### L 501.5200, L100.0100, L501.2300, L500.4050, L501.9520 #### [address] [place], [address] Albumin/Globulin [Mass ratio] 0.6 {ratio} Low 0.9-2.4 Comment on above: Performed By: #### L 501.5200, L100.0100, L501.2300, L500.4050, L501.9520 #### [address] [place], [address] ALK P 130 U/L High 45-117 Comment on above: Performed By: #### L 501.5200, L100.0100, L501.2300, L500.4050, L501.9520 #### [address] [place], [address] ALT [Catalytic activity/Vol] 17 U/L Normal 16-61 Comment on above: Performed By: #### L 501.5200, L100.0100, L501.2300, L500.4050, L501.9520 #### [address] [place], [address] AST [Catalytic activity/Vol] 20 U/L Normal 15-37 Comment on above: Performed By: #### L 501.5200, L100.0100, L501.2300, L500.4050, L501.9520 #### [address] [place], [address] Bilirubin [Mass/Vol] 0.40 mg/dL Normal 0.20-1.00 [facility] Comment on above: Result Comment: For patients on eltrombopag therapy, use of Dimension Max TBIL is not recommended. Performed By: #### L 501.5200, L100.0100, L501.2300, L500.4050, L501.9520 #### [address] [place], [address] BUN/CRE 14.0 RATIO Normal 10-20 Comment on above: Performed By: #### L 501.5200, L100.0100, L501.2300, L500.4050, L501.9520 #### [address] [place], [address] CA,Total 8.9 mg/dL Normal 8.5-10.1 Comment on above: Performed By: #### L 501.5200, L100.0100, L501.2300, L500.4050, L501.9520 #### [id number] [place], [address] Chloride [Moles/Vol] 108 mmol/L High 98-107 [facility] Comment on above: Performed By: #### L 501.5200, L100.0100, L501.2300, L500.4050, L501.9520 #### [address] [place], [address] CO2 [Moles/Vol] 24.0 mmol/L Normal 21.0-32.0 Comment on above: Performed By: #### L 501.5200, L100.0100, L501.2300, L500.4050, L501.9520 #### [address] [place], [address] Creatinine [Mass/Vol] 0.57 mg/dL Low 0.70-1.30 [facility] Comment on above: Result Comment: The validity of the calculated GFR GFRAA in patients over70 years has not been determined. Clinical correlation isessential. Performed By: #### L 501.5200, L100.0100, L501.2300, L500.4050, L501.9520 #### [id number] [place], [address] ECRCL 132.65 ml/min Normal Comment on above: Performed By: #### L 501.5200, L100.0100, L501.2300, L500.4050, L501.9520 #### [address] [place], [address] EST GFR - AA 184 mL/min Normal >60 Comment on above: Result Comment: Afri can [place] GFR Calc Performed By: #### L 501.5200, L100.0100, L501.2300, L500.4050, L501.9520 #### [address] [place], [address] GAP 6 Normal 5-15 Comment on above: Performed By: #### L 501.5200, L100.0100, L501.2300, L500.4050, L501.9520 #### [address] [place], [address] GFR/1.73 sq M.predicted among non-blacks MDRD (S/P/Bld) [Vol rate/Area] 152 mL/min/{1.73_m2} Normal >60 [facility] Comment on above: Result Comment: Non- GFR Calc Performed By: #### L 501.5200, L100.0100, L501.2300, L500.4050, L501.9520 #### [address] [place], [address] Globulin (S) [Mass/Vol] 4.3 g/dL High 2.2-4.2 [facility] Comment on above: Performed By: #### L 501.5200, L100.0100, L501.2300, L500.4050, L501.9520 #### [address] [place], [address] Glucose [Mass/Vol] 101 mg/dL Normal 74-106 [facility] Comment on above: Result Comment: Fast ing Glucose result from 100 to 125 mg/dLsuggests IMPAIRED HOMEOSTASIS per A.D.A. criteria. Performed By: #### L 501.5200, L100.0100, L501.2300, L500.4050, L501.9520 #### [address] [place], [address] Potassium [Moles/Vol] 3.5 mmol/L Normal 3.5-5.1 [facility] Comment on above: Performed By: #### L 501.5200, L100.0100, L501.2300, L500.4050, L501.9520 #### [address] [place], [address] Sodium [Moles/Vol] 139 mmol/L Normal 136-145 [facility] Comment on above: Performed By: #### L 501.5200, L100.0100, L501.2300, L500.4050, L501.9520 #### [id number] [place], [address] T PROT 6.7 g/dL Normal 6.4-8.2 Comment on above: Performed By: #### L 501.5200, L100.0100, L501.2300, L500.4050, L501.9520 #### [address] [place], [address] Urea nitrogen [Mass/Vol] 8 mg/dL Normal 7-18 Comment on above: Performed By: #### L 501.5200, L100.0100, L501.2300, L500.4050, L501.9520 #### [address] [place], [address] Culture, Blood (WB)on 2024 CUB Blood cultures x2, from two different sites No growth in 5 days. Normal Comment on above: Performed By: #### M 200.1000 #### [address] [place], [address] CUB Blood cultures x2, from two different sites No growth in 5 days. Normal Comment on above: Performed By: #### M 200.1000 #### [id number] [place], [address] Eosinophil percentageOrdered By: Ronak Cui on 06-17-2024 Eosinophils/100 WBC (Bld) 5.5 % High 0-5 Erythrocyte distribution wid th (RBC) [Ratio]Ordered By: Ronak Cui on 06-17-2024 Erythrocyte distribution width (RBC) [Entitic vol] 50.2 fL High 35.1-43.9 [facility] Erythrocyte distribution wid th ratioOrdered By: Ronak Cui on 06-17-2024 Erythrocyte distribution width (RBC) [Ratio] 16.3 % High 11.6-14.6 Estimated glomerular filtrat ion rate (GFR) AmericanOrdered By: Ronak Cui on 06-17-2024 Estimated GFR (MDRD) Amer 184 mL/min >60 Comment on above: GFR Calc Estimation of creatinine elzbieta aranceOrdered By: Ronak Cui on 06-17-2024 Estimated Creatinine Clearance Calc 132.65 ml/min Glomerular filtration rate ( GFR) estimationOrdered By: Ronak Cui on 06-17-2024 Estimated GFR (MDRD) Non-Af Amer 152 mL/min >60 Comment on above: Non- GFR Calc Glucose measurementOrdered B y: Ronak Cui on 06-17-2024 Glucose [Mass/Vol] 101 mg/dL 74-106 [facility] Comment on above: Fasting Glucose resu lt from 100 to 125 mg/dL suggests IMPAIRED HOMEOSTASIS per A.D.A. criteria. Hematocrit Auto (Bld) [Volum e fraction]Ordered By: Ronak Cui on 06-17-2024 Hematocrit (Bld) [Volume fraction] 42.7 % 40-54 Hemoglobin measurementOrdere d By: Ronak Cui on 06-17-2024 Hemoglobin (Bld) [Mass/Vol] 13.9 g/dL 13.0-16. 5 Immature granulocytes/100 WB C Auto (Bld)Ordered By: Ronak Cui on 06-17-2024 Immature granulocytes/100 WBC (Bld) 0.700 % 0.0-0.9 Comment on above: IG% - Immature Granu locytes (promyelocytes, myelocytes and metamyelocytes) > 1% indicates that a LEFT SHIFT is Present. Laboratory - Chemistry and C hemistry - challengeOrdered By: Ronak Cui on 06-17-2024 AST [Catalytic activity/Vol] 20 U/L 15-37 Lymphocytes Auto (Unsp spec) [#/Vol]Ordered By: Ronak Cui on 06-17-2024 Lymphocytes (Bld) [#/Vol] 2.50 10*3/uL 0.83-4.5 1 Lymphocytes/100 WBC Auto (Un sp spec)Ordered By: Ronak Cui on 06-17-2024 Lymphocytes/100 WBC (Bld) 24.1 % 19-41 MCV (mean corpuscular volume ) determinationOrdered By: Ronak Cui on 06-17-2024 MCV (RBC) [Entitic vol] 85.2 fL 80-94 [facility] Magnesiumon 06-17-2024 Magnesium [Mass/Vol] 1.8 mg/dL Normal 1.6-2.6 [facility] Comment on above: Performed By: #### L 501.5200, L100.0100, L501.2300, L500.4050, L501.9520 #### [address] [place], [address] Mean corpuscular hemoglobin (MCH) determinationOrdered By: Ronak Cui on 06-17-2024 MCH (RBC) [Entitic mass] 27.7 pg 27.0-32.0 Mean corpuscular hemoglobin concentration (MCHC) determinationOrdered By: Ronak Cui on 06-17-2024 MCHC (RBC) [Mass/Vol] 32.6 g/dL 32-36 [facility] Mean platelet volume determi nationOrdered By: Ronak Cui on 06-17-2024 Platelet mean volume (Bld) [Entitic vol] 9.0 fL 6.2-12.0 Monocyte percentageOrdered B y: Ronak Cui on 06-17-2024 Monocytes/100 WBC (Bld) 9.9 % 0-10 [facility] Neutrophil percentageOrdered By: Ronak Cui on 06-17-2024 Neutrophils/100 WBC (Bld) 59.1 % 47-70 Nucleated red blood cell per centageOrdered By: Ronak Cui on 06-17-2024 Nucleated RBC/100 WBC (Bld) [Ratio] 0 % 0-5 Phosphoruson 06-17-2024 Phosphate [Mass/Vol] 3.2 mg/dL Normal 2.5-4.9 [facility] Comment on above: Performed By: #### L 501.5200, L100.0100, L501.2300, L500.4050, L501.9520 #### [id number] [place], [address] Platelet countOrdered By: Thomas Cui on 06-17-2024 Platelets (Bld) [#/Vol] 363 10*3/uL 150-450 Potassium measurementOrdered By: Ronak Cui on 06-17-2024 Potassium [Moles/Vol] 3.5 mmol/L 3.5-5.1 [facility] RBC Auto (Bld) [#/Vol]Ordere d By: Ronak Cui on 06-17-2024 RBC (Bld) [#/Vol] 5.01 10*6/uL 4.6-6.2 [facility] Serum anion gap measurementO rdered By: Ronak Cui on 06-17-2024 Anion gap [Moles/Vol] 6 mmol/L 5-15 [facility] Serum globulin measurementOr dered By: Ronak Cui on 06-17-2024 Globulin (S) [Mass/Vol] 4.3 g/dL High 2.2-4.2 [facility] Serum or plasma alanine hooper otransferase (ALT) measurementOrdered By: Ronak Cui on 06-17-2024 ALT [Catalytic activity/Vol] 17 U/L 16-61 Serum or plasma albumin shantal urement (mass/volume)Ordered By: Ronak Cui on 06-17-2024 Albumin [Mass/Vol] 2.4 g/dL Low 3.2-5.0 [facility] Serum or plasma alkaline radha sphatase measurementOrdered By: Ronak Cui on 06-17-2024 ALP [Catalytic activity/Vol] 130 U/L High 45-117 Serum or plasma calcium shantal urement (mass/volume)Ordered By: Ronak Cui on 06-17-2024 Calcium [Mass/Vol] 8.9 mg/dL 8.5-10.1 [facility] Serum or plasma creatinine m easurement (mass/volume)Ordered By: Ronak Cui on 06-17-2024 Creatinine [Mass/Vol] 0.57 mg/dL Low 0.70-1.30 [facility] Comment on above: The validity of the calculated GFR & GFRAA in patients over 70 years has not been determined. Clinical correlation is essential. Serum or plasma urea nitroge n measurement (mass/volume)Ordered By: Ronak Cui on 06-17-2024 Urea nitrogen [Mass/Vol] 8 mg/dL 7-18 Sodium levelOrdered By: Johnny Cui on 06-17-2024 Sodium [Moles/Vol] 139 mmol/L 136-145 [facility] TSH QnOrdered By: Ronak muro on 06-17-2024 Thyroid Stimulating Hormone (TSH) 5.010 uIU/mL High 0.358-3.74 0 Thyroid Stim Hormone (TSH)on 06-17-2024 TSH 5.010 uIU/mL High 0.358-3.74 0 Comment on above: Performed By: #### L 501.5200, L100.0100, L501.2300, L500.4050, L501.9520 #### [id number] [place], [place], [id number] Total proteinOrdered By: Juan Cui on 06-17-2024 Protein [Mass/Vol] 6.7 g/dL 6.4-8.2 [facility] White blood cell (WBC) count Ordered By: Ronak Cui on 06-17-2024 WBC (Bld) [#/Vol] 10.4 10*3/uL 4.4-11.0 [facility] 12 Lead EKGon 06-16-2024 12 Lead EKG Normal Bilirubin Test strip Ql (U)O rdered By: Christian Merlos on 06-16-2024 Bilirubin Ql (U) Negative Negative Blood cultureOrdered By: Dorina Merlos on 06-16-2024 Bacteria identified Cx Nom (Bld) No growth in 5 days. Bacteria identified Cx Nom (Bld) No growth in 5 days. Brain/Head without Contrasto n 06-16-2024 Brain/Head without Contrast Normal CBC W/Diff, Automatedon 05-29 Absolute Lymph 2.25 X10 3/uL Normal 0.83-4.51 Comment on above: Performed By: #### L 300.3900, L100.0100, L503.6005, L500.4050, L300.4310, M200.1000 #### [id number] [place], [address] Absolute Neut 10.0 X10 3/uL High 2.0-7.7 Comment on above: Performed By: #### L 300.3900, L100.0100, L503.6005, L500.4050, L300.4310, M200.1000 #### [address] [place], [address] Basophils/100 WBC (Bld) 0.5 % Normal 0-1 [facility] Comment on above: Performed By: #### L 300.3900, L100.0100, L503.6005, L500.4050, L300.4310, M200.1000 #### [address] [place], [address] Eosinophils/100 WBC (Bld) 3.2 % Normal 0-5 Comment on above: Performed By: #### L 300.3900, L100.0100, L503.6005, L500.4050, L300.4310, M200.1000 #### [id number] [place], [address] Erythrocyte distribution width (RBC) [Ratio] 16.1 % High 11.6-14.6 Comment on above: Performed By: #### L 300.3900, L100.0100, L503.6005, L500.4050, L300.4310, M200.1000 #### [id number] [place], [address] Hematocrit (Bld) [Volume fraction] 44.4 % Normal 40-54 Comment on above: Performed By: #### L 300.3900, L100.0100, L503.6005, L500.4050, L300.4310, M200.1000 #### [id number] [place], [address] Hemoglobin (Bld) [Mass/Vol] 14.5 g/dL Normal 13.0-16. 5 Comment on above: Performed By: #### L 300.3900, L100.0100, L503.6005, L500.4050, L300.4310, M200.1000 #### [id number] [place], [address] IG% 0.600 Normal 0.0-0.9 Comment on above: Result Comment: IG% - Immature Granulocytes (promyelocytes, myelocytes andmetamyelocytes) > 1% indicates that a LEFT SHIFT is Present. Performed By: #### L 300.3900, L100.0100, L503.6005, L500.4050, L300.4310, M200.1000 #### [id number] [place], [address] Lymphocytes/100 WBC (Bld) 16.2 % Low 19-41 Comment on above: Performed By: #### L 300.3900, L100.0100, L503.6005, L500.4050, L300.4310, M200.1000 #### [id number] [place], [address] MCH (RBC) [Entitic mass] 27.8 pg Normal 27.0-32.0 Comment on above: Performed By: #### L 300.3900, L100.0100, L503.6005, L500.4050, L300.4310, M200.1000 #### [id number] [place], [address] MCHC (RBC) [Mass/Vol] 32.7 g/dL Normal 32-36 [facility] Comment on above: Performed By: #### L 300.3900, L100.0100, L503.6005, L500.4050, L300.4310, M200.1000 #### [id number] [place], [address] MCV (RBC) [Entitic vol] 85.1 fL Normal 80-94 [facility] Comment on above: Performed By: #### L 300.3900, L100.0100, L503.6005, L500.4050, L300.4310, M200.1000 #### [address] [place], [address] Monocytes/100 WBC (Bld) 7.3 % Normal 0-10 [facility] Comment on above: Performed By: #### L 300.3900, L100.0100, L503.6005, L500.4050, L300.4310, M200.1000 #### [address] [place], [address] Neutrophils/100 WBC (Bld) 72.2 % High 47-70 Comment on above: Performed By: #### L 300.3900, L100.0100, L503.6005, L500.4050, L300.4310, M200.1000 #### [address] [place], [address] Nucleated RBC (Bld) [#/Vol] 0 10*3/uL Normal 0-5 Comment on above: Performed By: #### L 300.3900, L100.0100, L503.6005, L500.4050, L300.4310, M200.1000 #### [address] [place], [address] Platelet mean volume (Bld) [Entitic vol] 8.7 fL Normal 6.2-12.0 Comment on above: Performed By: #### L 300.3900, L100.0100, L503.6005, L500.4050, L300.4310, M200.1000 #### [address] [place], [address] Platelets (Bld) [#/Vol] 387 10*3/uL Normal 150-450 Comment on above: Performed By: #### L 300.3900, L100.0100, L503.6005, L500.4050, L300.4310, M200.1000 #### [address] [place], [address] RBC (Bld) [#/Vol] 5.22 10*6/uL Normal 4.6-6.2 [facility] Comment on above: Performed By: #### L 300.3900, L100.0100, L503.6005, L500.4050, L300.4310, M200.1000 #### [address] [place], [address] RDW SD 49.8 fl High 35.1-43.9 Comment on above: Performed By: #### L 300.3900, L100.0100, L503.6005, L500.4050, L300.4310, M200.1000 #### [address] [place], [address] WBC (Bld) [#/Vol] 13.9 10*3/uL High 4.4-11.0 [facility] Comment on above: Performed By: #### L 300.3900, L100.0100, L503.6005, L500.4050, L300.4310, M200.1000 #### [address] [place], [address] Calcium oxalate crystals LM Ql (Urine sed)Ordered By: Christian Merlos on 06-16-2024 Urine Calcium Oxalate Crystals 2+ /hpf Chest 1 View (Portable)on Chest 1 View (Portable) Normal [facility] Comprehensive Metabolic Prof ilon 06-16-2024 Albumin [Mass/Vol] 2.7 g/dL Low 3.2-5.0 [facility] Comment on above: Performed By: #### L 300.3900, L100.0100, L503.6005, L500.4050, L300.4310, M200.1000 #### [address] [place], [address] Albumin/Globulin [Mass ratio] 0.6 {ratio} Low 0.9-2.4 Comment on above: Performed By: #### L 300.3900, L100.0100, L503.6005, L500.4050, L300.4310, M200.1000 #### [address] [place], [address] ALK P 143 U/L High 45-117 Comment on above: Performed By: #### L 300.3900, L100.0100, L503.6005, L500.4050, L300.4310, M200.1000 #### [address] [place], [address] ALT [Catalytic activity/Vol] 19 U/L Normal 16-61 Comment on above: Performed By: #### L 300.3900, L100.0100, L503.6005, L500.4050, L300.4310, M200.1000 #### [address] [place], [address] AST [Catalytic activity/Vol] 20 U/L Normal 15-37 Comment on above: Performed By: #### L 300.3900, L100.0100, L503.6005, L500.4050, L300.4310, M200.1000 #### [address] [place], [address] Bilirubin [Mass/Vol] 0.40 mg/dL Normal 0.20-1.00 [facility] Comment on above: Result Comment: For patients on eltrombopag therapy, use of Dimension Max TBIL is not recommended. Performed By: #### L 300.3900, L100.0100, L503.6005, L500.4050, L300.4310, M200.1000 #### [address] [place], [address] BUN/CRE 15.7 RATIO Normal 10-20 Comment on above: Performed By: #### L 300.3900, L100.0100, L503.6005, L500.4050, L300.4310, M200.1000 #### [address] [place], [address] CA,Total 9.4 mg/dL Normal 8.5-10.1 Comment on above: Performed By: #### L 300.3900, L100.0100, L503.6005, L500.4050, L300.4310, M200.1000 #### [address] [place], [address] Chloride [Moles/Vol] 108 mmol/L High 98-107 [facility] Comment on above: Performed By: #### L 300.3900, L100.0100, L503.6005, L500.4050, L300.4310, M200.1000 #### [address] [place], [address] CO2 [Moles/Vol] 27.0 mmol/L Normal 21.0-32.0 Comment on above: Performed By: #### L 300.3900, L100.0100, L503.6005, L500.4050, L300.4310, M200.1000 #### [address] [place], [address] Creatinine [Mass/Vol] 0.70 mg/dL Normal 0.70-1.30 [facility] Comment on above: Result Comment: The validity of the calculated GFR GFRAA in patients over70 years has not been determined. Clinical correlation isessential. Performed By: #### L 300.3900, L100.0100, L503.6005, L500.4050, L300.4310, M200.1000 #### [address] [place], [address] ECRCL 108.01 ml/min Normal Comment on above: Performed By: #### L 300.3900, L100.0100, L503.6005, L500.4050, L300.4310, M200.1000 #### [address] [place], [address] EST GFR - AA 146 mL/min Normal >60 Comment on above: Result Comment: Afri can [place] GFR Calc Performed By: #### L 300.3900, L100.0100, L503.6005, L500.4050, L300.4310, M200.1000 #### [address] [place], [address] GAP 5 Normal 5-15 Comment on above: Performed By: #### L 300.3900, L100.0100, L503.6005, L500.4050, L300.4310, M200.1000 #### [address] [place], [address] GFR/1.73 sq M.predicted among non-blacks MDRD (S/P/Bld) [Vol rate/Area] 121 mL/min/{1.73_m2} Normal >60 [facility] Comment on above: Result Comment: Non- GFR Calc Performed By: #### L 300.3900, L100.0100, L503.6005, L500.4050, L300.4310, M200.1000 #### [address] [place], [address] Globulin (S) [Mass/Vol] 4.8 g/dL High 2.2-4.2 [facility] Comment on above: Performed By: #### L 300.3900, L100.0100, L503.6005, L500.4050, L300.4310, M200.1000 #### [address] [place], [address] Glucose [Mass/Vol] 114 mg/dL High 74-106 [facility] Comment on above: Result Comment: Fast ing Glucose result from 100 to 125 mg/dLsuggests IMPAIRED HOMEOSTASIS per A.D.A. criteria. Performed By: #### L 300.3900, L100.0100, L503.6005, L500.4050, L300.4310, M200.1000 #### [address] [place], [address] Potassium [Moles/Vol] 3.7 mmol/L Normal 3.5-5.1 [facility] Comment on above: Performed By: #### L 300.3900, L100.0100, L503.6005, L500.4050, L300.4310, M200.1000 #### [address] [place], [address] Sodium [Moles/Vol] 140 mmol/L Normal 136-145 [facility] Comment on above: Performed By: #### L 300.3900, L100.0100, L503.6005, L500.4050, L300.4310, M200.1000 #### [address] [place], [place], [id number] T PROT 7.5 g/dL Normal 6.4-8.2 Comment on above: Performed By: #### L 300.3900, L100.0100, L503.6005, L500.4050, L300.4310, M200.1000 #### [address] [place], [address] Urea nitrogen [Mass/Vol] 11 mg/dL Normal 7-18 Comment on above: Performed By: #### L 300.3900, L100.0100, L503.6005, L500.4050, L300.4310, M200.1000 #### [address] [place], [address] Emergency Department Summary on 06-16-2024 Emergency Department Summary Normal Epithelial cells.squamous LM Ql (Urine sed)Ordered By: Christian Merlos on 06-16-2024 Epithelial cells.squamous LM.HPF (Urine sed) [#/Area] 0 /[HPF] 0-5 [facility] Glucose Ql (U)Ordered By: Rama Merlos on 06-16-2024 Urine Glucose (UA) Normal mg/dl Normal [facility] H AND P Exam - Hospitaliston 06-16-2024 H&P Exam - Hospitalist Normal [facility] Hyaline casts LM.LPF (Urine sed) [#/Area]Ordered By: Christian Merlos on 06-16-2024 Hyaline casts LM Ql (Urine sed) 0-5 SEEN /lpf 0-5 International normalized rat io (INR) calculationOrdered By: Christian Merlos on 06-16-2024 INR Coag (Bld) [Relative time] 1.1 {INR} Ketones Test strip Ql (U)Ord ered By: Christian Merlos on 06-16-2024 Ketones Ql (U) 5 mg/dl High Negative Lactic Acidon 06-16-2024 Lactate [Moles/Vol] 1.1 mmol/L Normal 0.4-1.9 [facility] Comment on above: Order Comment: Y Performed By: #### L 300.3900, L100.0100, L503.6005, L500.4050, L300.4310, M200.1000 #### [address] [place], [place], [id number] Lactic acid measurementOrder ed By: Christian Merlos on 06-16-2024 Lactate [Moles/Vol] 1.1 mmol/L 0.4-2.0 [facility] Microscopic analysis of urin e for red blood cells (RBC)Ordered By: Christian Merlos on 06-16-2024 Urine RBC 10-25 SEEN /hpf 0-5 Mucus LM Ql (Urine sed)Order ed By: Christian Merlos on 06-16-2024 Mucus Ql (Urine sed) 1+ /hpf [facility] Nitrite Test strip Ql (U)Ord ered By: Christian Merlos on 06-16-2024 Nitrite Ql (U) Positive High Negative Partial Thromboplast Timeon 06-16-2024 aPTT Coag (Bld) [Time] 43.2 s High 24.1-36.2 [facility] Comment on above: Performed By: #### L 300.3900, L100.0100, L503.6005, L500.4050, L300.4310, M200.1000 #### [address] [place], [address] Protein Test strip Ql (U)Ord ered By: Christian Merlos on 06-16-2024 Protein Ql (U) 30 mg/dl High Negative Prothrombin Time w/INRon INR Coag (PPP) [Relative time] 1.1 {INR} Normal Comment on above: Performed By: #### L 300.3900, L100.0100, L503.6005, L500.4050, L300.4310, M200.1000 #### [address] [place], [address] PT Coag (PPP) [Time] 13.9 s Normal 11.7-14.9 [facility] Comment on above: Performed By: #### L 300.3900, L100.0100, L503.6005, L500.4050, L300.4310, M200.1000 #### [address] [place], [address] Prothrombin timeOrdered By: Christian Merlos on 06-16-2024 PT Coag (PPP) [Time] 13.9 s 11.7-14.9 [facility] Urinalysis, Completeon 06-16 CA OX CRYSTAL 2+ /hpf Normal Comment on above: Order Comment: COLLE CTOR TO SPECIFY Performed By: #### M 100.2200, L400.0001 #### [address] [place], [address] CAST,HYALINE 0-5 SEEN Normal 0-5 Comment on above: Order Comment: COLLE CTOR TO SPECIFY Performed By: #### M 100.2200, L400.0001 #### [address] [place], [address] EPI,SQUAMOUS 0-5 SEEN Normal 0-5 Comment on above: Order Comment: ELMA CTOR TO SPECIFY Performed By: #### M 100.2200, L400.0001 #### [address] [place], [address] RBC 10-25 SEEN Normal 0-5 Comment on above: Order Comment: ELMA CTOR TO SPECIFY Performed By: #### M 100.2200, L400.0001 #### [address] [place], [address] BACTERIA 1+ /hpf Normal None Seen Comment on above: Order Comment: ELMA CTOR TO SPECIFY Performed By: #### M 100.2200, L400.0001 #### [address] [place], [address] WBC 50-100 SEEN Normal 0-5 Comment on above: Order Comment: ELMA CTOR TO SPECIFY Performed By: #### M 100.2200, L400.0001 #### [address] [place], [address] Mucus Ql (Urine sed) 1+ /hpf Normal [facility] Comment on above: Order Comment: ELMA CTOR TO SPECIFY Performed By: #### M 100.2200, L400.0001 #### [address] [place], [address] Urine blood detectionOrdered By: Christian Merlos on 06-16-2024 Urine Occult Blood 150 /ul High Negative [facility] Urine clarityOrdered By: Dorina Merlos on 06-16-2024 Clarity (U) Sl. Cloudy Clear Urine color determinationOrd ered By: Christian Merlos on 06-16-2024 Color (U) Yellow Yellow Urine cultureOrdered By: Dorina Merlos on 06-16-2024 Bacteria identified Cx Nom (U) GNR Poss Pseudomonas sp Abnormal Bacteria identified Cx Nom (U) Yeast, not Joleen albicans Abnormal Urine leukocyte esterase det ection by dipstickOrdered By: Christian Merlos on 06-16-2024 Leukocyte esterase Test strip Ql (U) 100 /ul High Negative Urine pHOrdered By: Christian Merlos on 06-16-2024 pH (U) 6.5 [pH] 5.0 - 8.0 Urine sediment bacteria coun t by microscopy (number/high power field)Ordered By: Christian Merlos on 06-16-2024 Bacteria LM.HPF (Urine sed) [#/Area] 1 /[HPF] None Seen Urine specific gravity measu rementOrdered By: Christian Merlos on 06-16-2024 Specific gravity (U) [Rel density] 1.015 1.002-1.03 0 Urobilinogen Ql (U)Ordered B y: Christian Merlos on 06-16-2024 Urine Urobilinogen Normal mg/dl Normal [facility] White blood cell countOrdere d By: Christian Merlos on 06-16-2024 Urine WBC 50-100 SEEN /hpf 0-5 aPTT Coag (PPP) [Time]Ordere d By: Christian Merlos on 06-16-2024 aPTT Coag (Bld) [Time] 43.2 s High 24.1-36.2 [facility] Absolute neutrophil countOrd ered By: Darian Arceo on 06-14-2024 Neutrophils (Bld) [#/Vol] 4.4 10*3/uL 2.0-7.7 Basic Metabolic Profile (BMP )on 06-14-2024 BUN/CRE 12.4 RATIO Normal 10-20 Comment on above: Performed By: #### L 100.0100, L500.2500 #### [address] [place], [place], [address] CA,Total 8.5 mg/dL Normal 8.5-10.1 Comment on above: Performed By: #### L 100.0100, L500.2500 #### [address] [place], [address] Chloride [Moles/Vol] 111 mmol/L High 98-107 [facility] Comment on above: Performed By: #### L 100.0100, L500.2500 #### [address] [place], [address] CO2 [Moles/Vol] 26.0 mmol/L Normal 21.0-32.0 Comment on above: Performed By: #### L 100.0100, L500.2500 #### [address] [place], [address] Creatinine [Mass/Vol] 0.81 mg/dL Normal 0.70-1.30 [facility] Comment on above: Result Comment: The validity of the calculated GFR GFRAA in patients over70 years has not been determined. Clinical correlation isessential. Performed By: #### L 100.0100, L500.2500 #### [address] [place], [address] ECRCL 106.44 ml/min Normal Comment on above: Performed By: #### L 100.0100, L500.2500 #### [address] [place], [address] EST GFR - AA 124 mL/min Normal >60 Comment on above: Result Comment: Afri can [place] GFR Calc Performed By: #### L 100.0100, L500.2500 #### [address] [place], [address] GAP 7 Normal 5-15 Comment on above: Performed By: #### L 100.0100, L500.2500 #### [address] [place], [address] GFR/1.73 sq M.predicted among non-blacks MDRD (S/P/Bld) [Vol rate/Area] 102 mL/min/{1.73_m2} Normal >60 [facility] Comment on above: Result Comment: Non- GFR Calc Performed By: #### L 100.0100, L500.2500 #### [address] [place], [address] Glucose [Mass/Vol] 161 mg/dL High 74-106 [facility] Comment on above: Result Comment: Fast ing Glucose result greater than or equal to 126 mg/dLsuggests DIABETES MELLITUS per A.D.A. criteria. Performed By: #### L 100.0100, L500.2500 #### [address] [place], [address] Potassium [Moles/Vol] 3.2 mmol/L Low 3.5-5.1 [facility] Comment on above: Performed By: #### L 100.0100, L500.2500 #### [address] [place], [address] Sodium [Moles/Vol] 144 mmol/L Normal 136-145 [facility] Comment on above: Performed By: #### L 100.0100, L500.2500 #### [address] [place], [address] Urea nitrogen [Mass/Vol] 10 mg/dL Normal 7-18 Comment on above: Performed By: #### L 100.0100, L500.2500 #### [address] [place], [address] Basophil percentageOrdered B y: Darian Arceo on 06-14-2024 Basophils/100 WBC (Bld) 0.6 % 0-1 [facility] Blood urea nitrogen (BUN)/cr eatinine ratioOrdered By: Darian Arceo on 06-14-2024 Urea nitrogen/Creatinine [Mass ratio] 12.4 mg/mg 10-20 CBC W/Diff, Automatedon 05-29 Absolute Lymph 2.62 X10 3/uL Normal 0.83-4.51 Comment on above: Performed By: #### L 100.0100, L500.2500 #### [address] [place], [address] Absolute Neut 4.4 X10 3/uL Normal 2.0-7.7 Comment on above: Performed By: #### L 100.0100, L500.2500 #### [address] [place], [address] Basophils/100 WBC (Bld) 0.6 % Normal 0-1 [facility] Comment on above: Performed By: #### L 100.0100, L500.2500 #### [address] [place], [address] Eosinophils/100 WBC (Bld) 6.1 % High 0-5 Comment on above: Performed By: #### L 100.0100, L500.2500 #### [address] [place], [address] Erythrocyte distribution width (RBC) [Ratio] 16.3 % High 11.6-14.6 Comment on above: Performed By: #### L 100.0100, L500.2500 #### [address] [place], [address] Hematocrit (Bld) [Volume fraction] 40.4 % Normal 40-54 Comment on above: Performed By: #### L 100.0100, L500.2500 #### [address] [place], [address] Hemoglobin (Bld) [Mass/Vol] 12.9 g/dL Low 13.0-16. 5 Comment on above: Performed By: #### L 100.0100, L500.2500 #### [address] [place], [address] IG% 0.500 Normal 0.0-0.9 Comment on above: Result Comment: IG% - Immature Granulocytes (promyelocytes, myelocytes andmetamyelocytes) > 1% indicates that a LEFT SHIFT is Present. Performed By: #### L 100.0100, L500.2500 #### [address] [place], [address] Lymphocytes/100 WBC (Bld) 30.6 % Normal 19-41 Comment on above: Performed By: #### L 100.0100, L500.2500 #### [address] [place], [address] MCH (RBC) [Entitic mass] 27.8 pg Normal 27.0-32.0 Comment on above: Performed By: #### L 100.0100, L500.2500 #### [address] [place], [address] MCHC (RBC) [Mass/Vol] 31.9 g/dL Low 32-36 [facility] Comment on above: Performed By: #### L 100.0100, L500.2500 #### [address] [place], [address] MCV (RBC) [Entitic vol] 87.1 fL Normal 80-94 [facility] Comment on above: Performed By: #### L 100.0100, L500.2500 #### [address] [place], [address] Monocytes/100 WBC (Bld) 11.4 % High 0-10 [facility] Comment on above: Performed By: #### L 100.0100, L500.2500 #### [address] [place], [address] Neutrophils/100 WBC (Bld) 50.8 % Normal 47-70 Comment on above: Performed By: #### L 100.0100, L500.2500 #### [address] [place], [address] Nucleated RBC (Bld) [#/Vol] 0 10*3/uL Normal 0-5 Comment on above: Performed By: #### L 100.0100, L500.2500 #### [address] [place], [address] Platelet mean volume (Bld) [Entitic vol] 9.0 fL Normal 6.2-12.0 Comment on above: Performed By: #### L 100.0100, L500.2500 #### [address] [place], [address] Platelets (Bld) [#/Vol] 340 10*3/uL Normal 150-450 Comment on above: Performed By: #### L 100.0100, L500.2500 #### [address] [place], [address] RBC (Bld) [#/Vol] 4.64 10*6/uL Normal 4.6-6.2 [facility] Comment on above: Performed By: #### L 100.0100, L500.2500 #### [address] [place], [address] RDW SD 51.2 fl High 35.1-43.9 Comment on above: Performed By: #### L 100.0100, L500.2500 #### [address] [place], [address] WBC (Bld) [#/Vol] 8.6 10*3/uL Normal 4.4-11.0 [facility] Comment on above: Performed By: #### L 100.0100, L500.2500 #### [address] [place], [address] Carbon dioxide measurementOr dered By: Darian Arceo on 06-14-2024 CO2 [Moles/Vol] 26.0 mmol/L 21.0-32.0 Chloride measurementOrdered By: Darian Arceo on 06-14-2024 Chloride [Moles/Vol] 111 mmol/L High 98-107 [facility] Consultation - Infectious Dx on 06-14-2024 Consultation - Infectious Dx Normal Discharge Instructionon 05-29 Discharge Instruction Normal [facility] Eosinophil percentageOrdered By: Darian Arceo on 06-14-2024 Eosinophils/100 WBC (Bld) 6.1 % High 0-5 Erythrocyte distribution wid th (RBC) [Ratio]Ordered By: Darian Arceo on 06-14-2024 Erythrocyte distribution width (RBC) [Entitic vol] 51.2 fL High 35.1-43.9 [facility] Erythrocyte distribution wid th ratioOrdered By: Darian Arceo on 06-14-2024 Erythrocyte distribution width (RBC) [Ratio] 16.3 % High 11.6-14.6 Estimated glomerular filtrat ion rate (GFR) AmericanOrdered By: Darian Arceo on 06-14-2024 Estimated GFR (MDRD) Amer 124 mL/min >60 Comment on above: GFR Calc Estimation of creatinine elzbieta aranceOrdered By: Darian Arceo on 06-14-2024 Estimated Creatinine Clearance Calc 106.44 ml/min Glomerular filtration rate ( GFR) estimationOrdered By: Darian Arceo on 06-14-2024 Estimated GFR (MDRD) Non-Af Amer 102 mL/min >60 Comment on above: Non- GFR Calc Glucose measurementOrdered B y: Darian Arceo on 06-14-2024 Glucose [Mass/Vol] 161 mg/dL High 74-106 [facility] Comment on above: Fasting Glucose resu lt greater than or equal to 126 mg/dL suggests DIABETES MELLITUS per A.D.A. criteria. Hematocrit Auto (Bld) [Volum e fraction]Ordered By: Darian Arceo on 06-14-2024 Hematocrit (Bld) [Volume fraction] 40.4 % 40-54 Hemoglobin measurementOrdere d By: Darian Arceo on 06-14-2024 Hemoglobin (Bld) [Mass/Vol] 12.9 g/dL Low 13.0-16. 5 Immature granulocytes/100 WB C Auto (Bld)Ordered By: Darian Arceo on 06-14-2024 Immature granulocytes/100 WBC (Bld) 0.500 % 0.0-0.9 Comment on above: IG% - Immature Granu locytes (promyelocytes, myelocytes and metamyelocytes) > 1% indicates that a LEFT SHIFT is Present. Lymphocytes Auto (Unsp spec) [#/Vol]Ordered By: Darian Arceo on 06-14-2024 Lymphocytes (Bld) [#/Vol] 2.62 10*3/uL 0.83-4.5 1 Lymphocytes/100 WBC Auto (Un sp spec)Ordered By: Darian Arceo on 06-14-2024 Lymphocytes/100 WBC (Bld) 30.6 % 19-41 MCV (mean corpuscular volume ) determinationOrdered By: Darian Arceo on 06-14-2024 MCV (RBC) [Entitic vol] 87.1 fL 80-94 [facility] Mean corpuscular hemoglobin (MCH) determinationOrdered By: Darian Arceo on 06-14-2024 MCH (RBC) [Entitic mass] 27.8 pg 27.0-32.0 Mean corpuscular hemoglobin concentration (MCHC) determinationOrdered By: Darian Arceo on 06-14-2024 MCHC (RBC) [Mass/Vol] 31.9 g/dL Low 32-36 [facility] Mean platelet volume determi nationOrdered By: Darian Arceo on 06-14-2024 Platelet mean volume (Bld) [Entitic vol] 9.0 fL 6.2-12.0 Monocyte percentageOrdered B y: Darian Arceo on 06-14-2024 Monocytes/100 WBC (Bld) 11.4 % High 0-10 [facility] Neutrophil percentageOrdered By: Darian Arceo on 06-14-2024 Neutrophils/100 WBC (Bld) 50.8 % 47-70 Nucleated red blood cell per centageOrdered By: Darian Arceo on 06-14-2024 Nucleated RBC/100 WBC (Bld) [Ratio] 0 % 0-5 Platelet countOrdered By: Joellen Arceo on 06-14-2024 Platelets (Bld) [#/Vol] 340 10*3/uL 150-450 Potassium measurementOrdered By: Darian Arceo on 06-14-2024 Potassium [Moles/Vol] 3.2 mmol/L Low 3.5-5.1 [facility] RBC Auto (Bld) [#/Vol]Ordere d By: Darian Arceo on 06-14-2024 RBC (Bld) [#/Vol] 4.64 10*6/uL 4.6-6.2 [facility] Serum anion gap measurementO rdered By: Darian Arceo on 06-14-2024 Anion gap [Moles/Vol] 7 mmol/L 5-15 [facility] Serum or plasma calcium shantal urement (mass/volume)Ordered By: Darian Arceo on 06-14-2024 Calcium [Mass/Vol] 8.5 mg/dL 8.5-10.1 [facility] Serum or plasma creatinine m easurement (mass/volume)Ordered By: Darian Arceo on 06-14-2024 Creatinine [Mass/Vol] 0.81 mg/dL 0.70-1.30 [facility] Comment on above: The validity of the calculated GFR & GFRAA in patients over 70 years has not been determined. Clinical correlation is essential. Serum or plasma urea nitroge n measurement (mass/volume)Ordered By: Darian Arceo on 06-14-2024 Urea nitrogen [Mass/Vol] 10 mg/dL 7-18 Sodium levelOrdered By: Danny Arceo on 06-14-2024 Sodium [Moles/Vol] 144 mmol/L 136-145 [facility] Urine Cultureon 06-14-2024 [facility] Normal Comment on above: Performed By: #### M 100.2200 #### [id number] [place], [address] White blood cell (WBC) count Ordered By: Darian Arceo on 06-14-2024 WBC (Bld) [#/Vol] 8.6 10*3/uL 4.4-11.0 [facility] Basic Metabolic Profile (BMP )on 06-13-2024 BUN/CRE 17.2 RATIO Normal 10-20 Comment on above: Performed By: #### L 100.0100, L500.2500 #### [id number] [place], [address] CA,Total 8.4 mg/dL Low 8.5-10.1 Comment on above: Performed By: #### L 100.0100, L500.2500 #### [address] [place], [address] Chloride [Moles/Vol] 108 mmol/L High 98-107 [facility] Comment on above: Performed By: #### L 100.0100, L500.2500 #### [address] [place], [address] CO2 [Moles/Vol] 24.0 mmol/L Normal 21.0-32.0 Comment on above: Performed By: #### L 100.0100, L500.2500 #### [address] [place], [address] Creatinine [Mass/Vol] 0.64 mg/dL Low 0.70-1.30 [facility] Comment on above: Result Comment: The validity of the calculated GFR GFRAA in patients over70 years has not been determined. Clinical correlation isessential. Performed By: #### L 100.0100, L500.2500 #### [address] [place], [address] ECRCL 134.72 ml/min Normal Comment on above: Performed By: #### L 100.0100, L500.2500 #### [address] [place], [address] EST GFR - AA 163 mL/min Normal >60 Comment on above: Result Comment: Afri can [place] GFR Calc Performed By: #### L 100.0100, L500.2500 #### [address] [place], [address] GAP 8 Normal 5-15 Comment on above: Performed By: #### L 100.0100, L500.2500 #### [address] [place], [address] GFR/1.73 sq M.predicted among non-blacks MDRD (S/P/Bld) [Vol rate/Area] 134 mL/min/{1.73_m2} Normal >60 [facility] Comment on above: Result Comment: Non- GFR Calc Performed By: #### L 100.0100, L500.2500 #### [address] [place], [address] Glucose [Mass/Vol] 95 mg/dL Normal 74-106 [facility] Comment on above: Performed By: #### L 100.0100, L500.2500 #### [address] [place], [address] Potassium [Moles/Vol] 3.2 mmol/L Low 3.5-5.1 [facility] Comment on above: Performed By: #### L 100.0100, L500.2500 #### [address] [place], [address] Sodium [Moles/Vol] 140 mmol/L Normal 136-145 [facility] Comment on above: Performed By: #### L 100.0100, L500.2500 #### [address] [place], [address] Urea nitrogen [Mass/Vol] 11 mg/dL Normal 7-18 Comment on above: Performed By: #### L 100.0100, L500.2500 #### [address] [place], [address] CBC W/Diff, Automatedon - Absolute Lymph 2.73 X10 3/uL Normal 0.83-4.51 Comment on above: Performed By: #### L 100.0100, L500.2500 #### [address] [place], [address] Absolute Neut 4.2 X10 3/uL Normal 2.0-7.7 Comment on above: Performed By: #### L 100.0100, L500.2500 #### [address] [place], [address] Basophils/100 WBC (Bld) 0.4 % Normal 0-1 [facility] Comment on above: Performed By: #### L 100.0100, L500.2500 #### [address] [place], [address] Eosinophils/100 WBC (Bld) 3.5 % Normal 0-5 Comment on above: Performed By: #### L 100.0100, L500.2500 #### [address] [place], [address] Erythrocyte distribution width (RBC) [Ratio] 15.9 % High 11.6-14.6 Comment on above: Performed By: #### L 100.0100, L500.2500 #### [address] [place], [address] Hematocrit (Bld) [Volume fraction] 40.3 % Normal 40-54 Comment on above: Performed By: #### L 100.0100, L500.2500 #### [address] [place], [address] Hemoglobin (Bld) [Mass/Vol] 13.0 g/dL Normal 13.0-16. 5 Comment on above: Performed By: #### L 100.0100, L500.2500 #### [address] [place], [address] IG% 0.200 Normal 0.0-0.9 Comment on above: Result Comment: IG% - Immature Granulocytes (promyelocytes, myelocytes andmetamyelocytes) > 1% indicates that a LEFT SHIFT is Present. Performed By: #### L 100.0100, L500.2500 #### [address] [place], [address] Lymphocytes/100 WBC (Bld) 33.7 % Normal 19-41 Comment on above: Performed By: #### L 100.0100, L500.2500 #### [address] [place], [address] MCH (RBC) [Entitic mass] 27.4 pg Normal 27.0-32.0 Comment on above: Performed By: #### L 100.0100, L500.2500 #### [address] [place], [address] MCHC (RBC) [Mass/Vol] 32.3 g/dL Normal 32-36 [facility] Comment on above: Performed By: #### L 100.0100, L500.2500 #### [address] [place], [address] MCV (RBC) [Entitic vol] 84.8 fL Normal 80-94 [facility] Comment on above: Performed By: #### L 100.0100, L500.2500 #### [address] [place], [address] Monocytes/100 WBC (Bld) 10.6 % High 0-10 [facility] Comment on above: Performed By: #### L 100.0100, L500.2500 #### [address] [place], [address] Neutrophils/100 WBC (Bld) 51.6 % Normal 47-70 Comment on above: Performed By: #### L 100.0100, L500.2500 #### [address] [place], [address] Nucleated RBC (Bld) [#/Vol] 0 10*3/uL Normal 0-5 Comment on above: Performed By: #### L 100.0100, L500.2500 #### [address] [place], [address] Platelet mean volume (Bld) [Entitic vol] 9.0 fL Normal 6.2-12.0 Comment on above: Performed By: #### L 100.0100, L500.2500 #### [address] [place], [address] Platelets (Bld) [#/Vol] 311 10*3/uL Normal 150-450 Comment on above: Performed By: #### L 100.0100, L500.2500 #### [address] [place], [address] RBC (Bld) [#/Vol] 4.75 10*6/uL Normal 4.6-6.2 [facility] Comment on above: Performed By: #### L 100.0100, L500.2500 #### [address] [place], [address] RDW SD 49.3 fl High 35.1-43.9 Comment on above: Performed By: #### L 100.0100, L500.2500 #### [address] [place], [address] WBC (Bld) [#/Vol] 8.1 10*3/uL Normal 4.4-11.0 [facility] Comment on above: Performed By: #### L 100.0100, L500.2500 #### [address] [place], [address] Folates, (Folic Acid)on 05-29 FOLATES 46.60 ng/mL Normal 3.1-55.4 Comment on above: Order Comment: Has P atient had X-rays with Contrast this admission? NN Performed By: #### L 506.0250, L501.9520, L505.5000, L503.0105 #### [address] [place], [address] Folic acid measurementOrdere d By: Ronak Cui on 06-12-2024 Folate 46.60 ng/mL 3.1-55.4 Legionella Antigen Urineon 0 06-12-2024 LEGU Normal Comment on above: Performed By: #### M 300.4600, M300.4500 #### [address] [place], [address] Methadone, urineOrdered By: Ronak Cui on 06-12-2024 Urine Methadone Screen Negative < 300 ng/mL No Panel InformationOrdered By: Ronak Cui on 06-12-2024 Urine Drug Screen Comment Comment on above: CONFIRMATORY TESTING FOR ALL [...] Ql (U) Positive High < 300 ng/mL Strep pneumoniae Antig(UR,CS F)on 06-12-2024 STPAG Normal Comment on above: Performed By: #### M 300.4600, M300.4500 #### [address] [place], [place], [id number] TSH QnOrdered By: Ronak muro on 06-12-2024 Thyroid Stimulating Hormone (TSH) 4.130 uIU/mL High 0.358-3.74 0 Thyroid Stim Hormone (TSH)on 06-12-2024 TSH 4.130 uIU/mL High 0.358-3.74 0 Comment on above: Order Comment: Has P atient had X-rays with Contrast this admission? NN Performed By: #### L 506.0250, L501.9520, L505.5000, L503.0105 #### [address] [place], [address] Urine Drug Screen (VISTA)on 06-12-2024 AMPHETAMINES Negative Normal <1000 ng/mL Comment on above: Performed By: #### L 506.0250, L501.9520, L505.5000, L503.0105 #### [address] [place], [address] BARBITIURATES Negative Normal < 200 ng/mL Comment on above: Performed By: #### L 506.0250, L501.9520, L505.5000, L503.0105 #### [address] [place], [address] BENZODIAZIPINE Negative Normal < 200 ng/mL Comment on above: Performed By: #### L 506.0250, L501.9520, L505.5000, L503.0105 #### [address] [place], [address] COCAINE Negative Normal < 300 ng/mL Comment on above: Performed By: #### L 506.0250, L501.9520, L505.5000, L503.0105 #### [address] [place], [address] ECSTACY Negative Normal < 500 ng/mL Comment on above: Performed By: #### L 506.0250, L501.9520, L505.5000, L503.0105 #### [address] [place] [address] METHADONE Negative Normal < 300 ng/mL Comment on above: Performed By: #### L 506.0250, L501.9520, L505.5000, L503.0105 #### [address] [place], [address] OPIATES Positive Abnormal < 300 ng/mL Comment on above: Performed By: #### L 506.0250, L501.9520, L505.5000, L503.0105 #### [address] [place], [address] PCP Negative Normal < 25 ng/mL Comment on above: Performed By: #### L 506.0250, L501.9520, L505.5000, L503.0105 #### [address] [facility] [address] THC Positive Abnormal < 50 ng/mL Comment on above: Performed By: #### L 506.0250, L501.9520, L505.5000, L503.0105 #### [address] [place], [address] VISTA UDS PH 5 Normal Comment on above: Performed By: #### L 506.0250, L501.9520, L505.5000, L503.0105 #### [address] [place], [address] Urine amphetamine measuremen tOrdered By: Ronak Cui on 06-12-2024 Amphetamines Ql (U) Negative <1000 ng/mL Urine barbiturates measureme ntOrdered By: Ronak Cui on 06-12-2024 Urine Barbiturates Screen Negative < 200 ng/mL Urine benzodiazepine levelOr dered By: Ronak Cui on 06-12-2024 Benzodiazepines Ql (U) Negative < 200 ng/mL Urine cocaine levelOrdered B y: Ronak Cui on 06-12-2024 Cocaine Ql (U) Negative < 300 ng/mL Urine fkszt-2-jbpyrrdmyqsxmw abinol (THC) measurementOrdered By: Ronak Cui on 06-12-2024 Cannabinoids Screen Ql (U) Positive High < 50 ng/m L Urine methylenedioxymethamph etamine (MDMA) measurementOrdered By: Ronak Cui on 06-12-2024 MDMA (Ecstasy) Screen Negative < 500 ng/mL Urine phencyclidine (PCP) de tectionOrdered By: Ronak Cui on 06-12-2024 Phencyclidine Ql (U) Negative < 25 ng/mL [facility] Vitamin B12on 06-12-2024 Cobalamin (Vitamin B12) [Mass/Vol] 551 pg/mL Normal 211-911 Comment on above: Performed By: #### L 506.0250, L501.9520, L505.5000, L503.0105 #### [address] [place], [address] Vitamin B12 measurementOrder ed By: Ronak Cui on 06-12-2024 Cobalamin (Vitamin B12) [Mass/Vol] 551 pg/mL 211-911 Albumin to globulin ratioOrd ered By: Alma Rosa Sheehanelizabeth on 06-11-2024 Albumin/Globulin [Mass ratio] 0.6 {ratio} Low 0.9-2.4 Bilirubin Test strip Ql (U)O rdered By: Alma Rosa Kasia on 06-11-2024 Bilirubin Ql (U) Negative Negative Bilirubin, totalOrdered By: Alma Rosa Kasia on 06-11-2024 Bilirubin [Mass/Vol] 0.40 mg/dL 0.20-1.00 [facility] Comment on above: For patients on eltr ombopag therapy, use of Dimension Max TBIL is not recommended. Blood cultureOrdered By: Marquita Kasia on 06-11-2024 Bacteria identified Cx Nom (Bld) No growth in 5 days. Bacteria identified Cx Nom (Bld) No growth in 5 days. CBC W/Diff, Automatedon 05-29 Absolute Lymph 2.16 X10 3/uL Normal 0.83-4.51 Comment on above: Performed By: #### L 500.4050, L100.0100, L503.6005, L501.4020 #### [address] [place], [address] Absolute Neut 9.6 X10 3/uL High 2.0-7.7 Comment on above: Performed By: #### L 500.4050, L100.0100, L503.6005, L501.4020 #### [address] [place], [address] Basophils/100 WBC (Bld) 0.3 % Normal 0-1 [facility] Comment on above: Performed By: #### L 500.4050, L100.0100, L503.6005, L501.4020 #### [address] [place], [address] Eosinophils/100 WBC (Bld) 0.7 % Normal 0-5 Comment on above: Performed By: #### L 500.4050, L100.0100, L503.6005, L501.4020 #### [address] [place], [address] Erythrocyte distribution width (RBC) [Ratio] 16.1 % High 11.6-14.6 Comment on above: Performed By: #### L 500.4050, L100.0100, L503.6005, L501.4020 #### [address] [place], [address] Hematocrit (Bld) [Volume fraction] 47.0 % Normal 40-54 Comment on above: Performed By: #### L 500.4050, L100.0100, L503.6005, L501.4020 #### [address] [place], [address] Hemoglobin (Bld) [Mass/Vol] 15.4 g/dL Normal 13.0-16. 5 Comment on above: Performed By: #### L 500.4050, L100.0100, L503.6005, L501.4020 #### [address] [place], [address] IG% 0.400 Normal 0.0-0.9 Comment on above: Result Comment: IG% - Immature Granulocytes (promyelocytes, myelocytes andmetamyelocytes) > 1% indicates that a LEFT SHIFT is Present. Performed By: #### L 500.4050, L100.0100, L503.6005, L501.4020 #### [address] [place], [address] Lymphocytes/100 WBC (Bld) 17.0 % Low 19-41 Comment on above: Performed By: #### L 500.4050, L100.0100, L503.6005, L501.4020 #### [address] [place], [address] MCH (RBC) [Entitic mass] 27.6 pg Normal 27.0-32.0 Comment on above: Performed By: #### L 500.4050, L100.0100, L503.6005, L501.4020 #### [address] [place], [address] MCHC (RBC) [Mass/Vol] 32.8 g/dL Normal 32-36 [facility] Comment on above: Performed By: #### L 500.4050, L100.0100, L503.6005, L501.4020 #### [address] [place], [address] MCV (RBC) [Entitic vol] 84.2 fL Normal 80-94 [facility] Comment on above: Performed By: #### L 500.4050, L100.0100, L503.6005, L501.4020 #### [address] [place], [address] Monocytes/100 WBC (Bld) 6.0 % Normal 0-10 [facility] Comment on above: Performed By: #### L 500.4050, L100.0100, L503.6005, L501.4020 #### [address] [place], [address] Neutrophils/100 WBC (Bld) 75.6 % High 47-70 Comment on above: Performed By: #### L 500.4050, L100.0100, L503.6005, L501.4020 #### [address] [place], [address] Nucleated RBC (Bld) [#/Vol] 0 10*3/uL Normal 0-5 Comment on above: Performed By: #### L 500.4050, L100.0100, L503.6005, L501.4020 #### [address] [place], [address] Platelet mean volume (Bld) [Entitic vol] 8.9 fL Normal 6.2-12.0 Comment on above: Performed By: #### L 500.4050, L100.0100, L503.6005, L501.4020 #### [address] [place], [address] Platelets (Bld) [#/Vol] 416 10*3/uL Normal 150-450 Comment on above: Performed By: #### L 500.4050, L100.0100, L503.6005, L501.4020 #### [address] [place], [address] RBC (Bld) [#/Vol] 5.58 10*6/uL Normal 4.6-6.2 [facility] Comment on above: Performed By: #### L 500.4050, L100.0100, L503.6005, L501.4020 #### [address] [place], [address] RDW SD 48.9 fl High 35.1-43.9 Comment on above: Performed By: #### L 500.4050, L100.0100, L503.6005, L501.4020 #### [address] [place], [address] WBC (Bld) [#/Vol] 12.7 10*3/uL High 4.4-11.0 [facility] Comment on above: Performed By: #### L 500.4050, L100.0100, L503.6005, L501.4020 #### [address] [place], [address] Calcium oxalate crystals LM Ql (Urine sed)Ordered By: Alma Rosa Pedroza on 06-11-2024 Urine Calcium Oxalate Crystals 1+ /hpf Chest 1 View (Portable)on Chest 1 View (Portable) Normal [facility] Chest without Contraston Chest without Contrast Normal [facility] Comprehensive Metabolic Prof ilon 06-11-2024 Albumin [Mass/Vol] 2.8 g/dL Low 3.2-5.0 [facility] Comment on above: Order Comment: 'TROP ' Serial specimen #1, #2 or #3: 1 Performed By: #### L 500.4050, L100.0100, L503.6005, L501.4020 #### [address] [place], [address] Albumin/Globulin [Mass ratio] 0.6 {ratio} Low 0.9-2.4 Comment on above: Order Comment: 'TROP ' Serial specimen #1, #2 or #3: 1 Performed By: #### L 500.4050, L100.0100, L503.6005, L501.4020 #### [address] [place], [address] ALK P 168 U/L High 45-117 Comment on above: Order Comment: 'TROP ' Serial specimen #1, #2 or #3: 1 Performed By: #### L 500.4050, L100.0100, L503.6005, L501.4020 #### [address] [place], [address] ALT [Catalytic activity/Vol] 10 U/L Low 16-61 Comment on above: Order Comment: 'TROP ' Serial specimen #1, #2 or #3: 1 Performed By: #### L 500.4050, L100.0100, L503.6005, L501.4020 #### [address] [place], [address] AST [Catalytic activity/Vol] 10 U/L Low 15-37 Comment on above: Order Comment: 'TROP ' Serial specimen #1, #2 or #3: 1 Performed By: #### L 500.4050, L100.0100, L503.6005, L501.4020 #### [address] [place], [address] Bilirubin [Mass/Vol] 0.40 mg/dL Normal 0.20-1.00 [facility] Comment on above: Order Comment: 'TROP ' Serial specimen #1, #2 or #3: 1 Result Comment: For patients on eltrombopag therapy, use of Dimension Max TBIL is not recommended. Performed By: #### L 500.4050, L100.0100, L503.6005, L501.4020 #### [address] [place], [address] BUN/CRE 19.7 RATIO Normal 10-20 Comment on above: Order Comment: 'TROP ' Serial specimen #1, #2 or #3: 1 Performed By: #### L 500.4050, L100.0100, L503.6005, L501.4020 #### [address] [place], [address] CA,Total 9.5 mg/dL Normal 8.5-10.1 Comment on above: Order Comment: 'TROP ' Serial specimen #1, #2 or #3: 1 Performed By: #### L 500.4050, L100.0100, L503.6005, L501.4020 #### [address] [place], [address] Chloride [Moles/Vol] 106 mmol/L Normal 98-107 [facility] Comment on above: Order Comment: 'TROP ' Serial specimen #1, #2 or #3: 1 Performed By: #### L 500.4050, L100.0100, L503.6005, L501.4020 #### [address] [place], [address] CO2 [Moles/Vol] 25.0 mmol/L Normal 21.0-32.0 Comment on above: Order Comment: 'TROP ' Serial specimen #1, #2 or #3: 1 Performed By: #### L 500.4050, L100.0100, L503.6005, L501.4020 #### [address] [place], [address] Creatinine [Mass/Vol] 0.61 mg/dL Low 0.70-1.30 [facility] Comment on above: Order Comment: 'TROP ' Serial specimen #1, #2 or #3: 1 Result Comment: The validity of the calculated GFR GFRAA in patients over70 years has not been determined. Clinical correlation isessential. Performed By: #### L 500.4050, L100.0100, L503.6005, L501.4020 #### [address] [place], [address] ECRCL 123.95 ml/min Normal Comment on above: Order Comment: 'TROP ' Serial specimen #1, #2 or #3: 1 Performed By: #### L 500.4050, L100.0100, L503.6005, L501.4020 #### [address] [place], [address] EST GFR - AA 172 mL/min Normal >60 Comment on above: Order Comment: 'TROP ' Serial specimen #1, #2 or #3: 1 Result Comment: Afri can [place] GFR Calc Performed By: #### L 500.4050, L100.0100, L503.6005, L501.4020 #### [address] [place], [address] GAP 9 Normal 5-15 Comment on above: Order Comment: 'TROP ' Serial specimen #1, #2 or #3: 1 Performed By: #### L 500.4050, L100.0100, L503.6005, L501.4020 #### [address] [place], [address] GFR/1.73 sq M.predicted among non-blacks MDRD (S/P/Bld) [Vol rate/Area] 142 mL/min/{1.73_m2} Normal >60 [facility] Comment on above: Order Comment: 'TROP ' Serial specimen #1, #2 or #3: 1 Result Comment: Non- GFR Calc Performed By: #### L 500.4050, L100.0100, L503.6005, L501.4020 #### [address] [place], [address] Globulin (S) [Mass/Vol] 5.0 g/dL High 2.2-4.2 [facility] Comment on above: Order Comment: 'TROP ' Serial specimen #1, #2 or #3: 1 Performed By: #### L 500.4050, L100.0100, L503.6005, L501.4020 #### [address] [place], [address] Glucose [Mass/Vol] 107 mg/dL High 74-106 [facility] Comment on above: Order Comment: 'TROP ' Serial specimen #1, #2 or #3: 1 Result Comment: Fast ing Glucose result from 100 to 125 mg/dLsuggests IMPAIRED HOMEOSTASIS per A.D.A. criteria. Performed By: #### L 500.4050, L100.0100, L503.6005, L501.4020 #### [address] [place], [address] Potassium [Moles/Vol] 3.4 mmol/L Low 3.5-5.1 [facility] Comment on above: Order Comment: 'TROP ' Serial specimen #1, #2 or #3: 1 Performed By: #### L 500.4050, L100.0100, L503.6005, L501.4020 #### [address] [place], [address] Sodium [Moles/Vol] 140 mmol/L Normal 136-145 [facility] Comment on above: Order Comment: 'TROP ' Serial specimen #1, #2 or #3: 1 Performed By: #### L 500.4050, L100.0100, L503.6005, L501.4020 #### [address] [place], [address] T PROT 7.8 g/dL Normal 6.4-8.2 Comment on above: Order Comment: 'TROP ' Serial specimen #1, #2 or #3: 1 Performed By: #### L 500.4050, L100.0100, L503.6005, L501.4020 #### [address] [place], [address] Urea nitrogen [Mass/Vol] 12 mg/dL Normal 7-18 Comment on above: Order Comment: 'TROP ' Serial specimen #1, #2 or #3: 1 Performed By: #### L 500.4050, L100.0100, L503.6005, L501.4020 #### [address] [place], [address] Emergency Department Summary on 06-11-2024 Emergency Department Summary Normal Epithelial cells.squamous LM Ql (Urine sed)Ordered By: Alma Rosa Pedroza on 06-11-2024 Epithelial cells.squamous LM.HPF (Urine sed) [#/Area] 0 /[HPF] 0-5 [facility] Glucose Ql (U)Ordered By: Julia Pedroza on 06-11-2024 Urine Glucose (UA) Normal mg/dl Normal [facility] H AND P Exam - [place] 06-11-2024 H&P Exam - Hospitalist Normal [facility] HIP, UNI W/ Pelvis 2-3 Views on 06-11-2024 HIP, UNI W/ Pelvis 2-3 Views Normal Influenza virus A and B and SARS-CoV-2 (COVID-19) and Respiratory syncytial virus RNAOrdered By: Alma Rosa Pedroza on 06-11-2024 SARS-CoV-2 (COVID-19) RNA ZEKE+probe Ql (Unsp spec) Ketones Test strip Ql (U)Ord ered By: Alma Rosa Pedroza on 06-11-2024 Ketones Ql (U) 150 mg/dl Abnormal Negative Comment on above: CRITICAL VALUE *HCRI TICAL VALUE CALLED TO [id number]/14/25 1805 Lilian Multani.RESULTS READ BACK BY SAME. L. pneumophila Ag Ql (U)Orde red By: Ronak Cui on 06-11-2024 Legionella Antigen [facility] L501.4020on 06-11-2024 TROPONIN-I HS 6 pg/mL Normal 3.0-78.0 Comment on above: Order Comment: 'TROP ' Serial specimen #1, #2 or #3: 1 Result Comment: Plea se Note: New Test Units and Gender Specific Reference Ranges. For more information see Policy Stat Procedure Max High Sensitivity Troponin (TNIH) and attachments. Performed By: #### L 500.4050, L100.0100, L503.6005, L501.4020 #### [id number] [place], [place], [id number] Laboratory - Chemistry and C hemistry - challengeOrdered By: Alma Rosa Pedroza on 06-11-2024 AST [Catalytic activity/Vol] 10 U/L Low 15-37 Lactic Acidon 06-11-2024 Lactate [Moles/Vol] 1.4 mmol/L Normal 0.4-1.9 [facility] Comment on above: Order Comment: Y Performed By: #### L 500.4050, L100.0100, L503.6005, L501.4020 #### [id number] [place], [place], [id number] Lactic acid measurementOrder ed By: Alma Rosa Pedroza on 06-11-2024 Lactate [Moles/Vol] 1.4 mmol/L 0.4-2.0 [facility] M100.678on 06-11-2024 M100.678 Pending SARS-CoV-2 (COVID 19) Negative INFLUENZA A Negative INFLUENZA B Negative RSV PCR Negative Normal Comment on above: Performed By: #### M 100.678, L400.0001 #### [id number] [place], [place], [id number] Microscopic analysis of urin e for red blood cells (RBC)Ordered By: Alma Rosa Pedroza on 06-11-2024 Urine RBC 25-50 SEEN /hpf 0-5 Mucus LM Ql (Urine sed)Order ed By: Alma Rosa Pedroza on 06-11-2024 Mucus Ql (Urine sed) 2+ /hpf [facility] Nitrite Test strip Ql (U)Ord ered By: Alma Rosa Pedroza on 06-11-2024 Nitrite Ql (U) Positive High Negative Protein Test strip Ql (U)Ord ered By: Alma Rosa Pedroza on 06-11-2024 Protein Ql (U) 100 mg/dl High Negative Serum globulin measurementOr dered By: Alma Rosa Pedroza on 06-11-2024 Globulin (S) [Mass/Vol] 5.0 g/dL High 2.2-4.2 [facility] Serum or plasma alanine hooper otransferase (ALT) measurementOrdered By: Alma Rosa Pedroza on 06-11-2024 ALT [Catalytic activity/Vol] 10 U/L Low 16-61 Serum or plasma albumin shantal urement (mass/volume)Ordered By: Alma Rosa Pedroza on 06-11-2024 Albumin [Mass/Vol] 2.8 g/dL Low 3.2-5.0 [facility] Serum or plasma alkaline radha sphatase measurementOrdered By: Alma Rosa Kasia on 06-11-2024 ALP [Catalytic activity/Vol] 168 U/L High 45-117 Streptococcus pneumoniae ant igen assayOrdered By: Ronak Cui on 06-11-2024 Streptococcus pneumoniae Antigen (M Total proteinOrdered By: Marquita parr Kasia on 06-11-2024 Protein [Mass/Vol] 7.8 g/dL 6.4-8.2 [facility] Troponin IOrdered By: Alma Rosa Kasia on 06-11-2024 Troponin I High Sensitivity 6 pg/mL 3.0-78.0 Comment on above: Please Note: New Tanya t Units and Gender Specific Reference Ranges. For more information see Policy Stat Procedure Max High Sensitivity Troponin (TNIH) and attachments. Urinalysis, Completeon 06-11 BACTERIA 4+ /hpf Normal None Seen Comment on above: Order Comment: ELMA CTOR TO SPECIFY Performed By: #### M 100.678, L400.0001 #### [address] [place], [address] CA OX CRYSTAL 1+ /hpf Normal Comment on above: Order Comment: ELMA CTOR TO SPECIFY Performed By: #### M 100.678, L400.0001 #### [address] [place], [address] EPI,SQUAMOUS 0-5 SEEN Normal 0-5 Comment on above: Order Comment: ELMA CTOR TO SPECIFY Performed By: #### M 100.678, L400.0001 #### [address] [place], [address] Mucus Ql (Urine sed) 2+ /hpf Normal [facility] Comment on above: Order Comment: ELMA CTOR TO SPECIFY Performed By: #### M 100.678, L400.0001 #### [address] [place], [address] RBC 25-50 SEEN Normal 0-5 Comment on above: Order Comment: ELMA CTOR TO SPECIFY Performed By: #### M 100.678, L400.0001 #### [address] [place], [place], [address] WBC >100 SEEN Normal 0-5 Comment on above: Order Comment: LEMA CTOR TO SPECIFY Performed By: #### M 100.678, L400.0001 #### [address] [place], [place], [phone] Urine blood detectionOrdered By: Alma Rosa Pedroza on 06-11-2024 Urine Occult Blood 250 /ul High Negative [facility] Urine clarityOrdered By: Marquita Pedroza on 06-11-2024 Clarity (U) Cloudy Clear Urine color determinationOrd ered By: Alma Rosa Pedroza on 06-11-2024 Color (U) Yellow Yellow Urine cultureOrdered By: Marquita Pedroza on 06-11-2024 Bacteria identified Cx Nom (U) Pseudomonas aeruginosa Abnormal Urine leukocyte esterase det ection by dipstickOrdered By: Alma Rosa Pedroza on 06-11-2024 Leukocyte esterase Test strip Ql (U) 500 /ul High Negative Urine pHOrdered By: Alma Rosa Zeng gur on 06-11-2024 pH (U) 6.0 [pH] 5.0 - 8.0 Urine sediment bacteria coun t by microscopy (number/high power field)Ordered By: Alma Rosa Pedroza on 06-11-2024 Bacteria LM.HPF (Urine sed) [#/Area] 4 /[HPF] None Seen Urine specific gravity measu rementOrdered By: Alma Rosa Pedroza on 06-11-2024 Specific gravity (U) [Rel density] 1.025 1.002-1.03 0 Urobilinogen Ql (U)Ordered B y: Alma Rosa Pedroza on 06-11-2024 Urine Urobilinogen Normal mg/dl Normal [facility] Venous Duplex Imag/Limited/U nion 06-11-2024 Venous Duplex Imag/Limited/Uni Normal White blood cell countOrdere d By: Alma Rosa Pedroza on 06-11-2024 Urine WBC >100 SEEN /hpf 0-5 CNPAlyssa 05-06-2024 CNPN Telephone (AGPOB1) BAUTISTA RUFFIN ([id number]) 1960 M Date Time Provider Department 05/06/24 HETAL GALLEGOS ADELEB1 During your visit today, we recorded the following information about you: Stacy Gongora 05/06/2024 8:17 AM Signed ----- Message from Hetal Gallegos MD sent at 05/04/2024 12:05 PM EST ----- Follow-up in 3 weeks please Stacy Gongora 05/06/2024 8:17 AM Signed I called the patient to schedule an appointment with [facility] in 3 weeks. I left a voice [...] Status:Closed by STACY GONGORA on 05/10/24 Normal [facility] Basic Metabolic Profile (BMP )on 05-03-2024 BUN/CRE 15.2 RATIO Normal 10-20 Comment on above: Performed By: #### L 500.2500, L100.0100 #### [address] [place], [address] CA,Total 9.4 mg/dL Normal 8.5-10.1 Comment on above: Performed By: #### L 500.2500, L100.0100 #### [address] [place], [address] Chloride [Moles/Vol] 106 mmol/L Normal 98-107 [facility] Comment on above: Performed By: #### L 500.2500, L100.0100 #### [address] [place], [address] CO2 [Moles/Vol] 33.0 mmol/L High 21.0-32.0 Comment on above: Performed By: #### L 500.2500, L100.0100 #### [address] [place], [address] Creatinine [Mass/Vol] 0.92 mg/dL Normal 0.70-1.30 [facility] Comment on above: Result Comment: The validity of the calculated GFR GFRAA in patients over70 years has not been determined. Clinical correlation isessential. Performed By: #### L 500.2500, L100.0100 #### [address] [place], [address] ECRCL 82.18 ml/min Normal Comment on above: Performed By: #### L 500.2500, L100.0100 #### [address] [place], [address] EST GFR - AA 106 mL/min Normal >60 Comment on above: Result Comment: Afri can [place] GFR Calc Performed By: #### L 500.2500, L100.0100 #### [address] [place], [address] GAP 2 Low 5-15 Comment on above: Performed By: #### L 500.2500, L100.0100 #### [address] [place], [address] GFR/1.73 sq M.predicted among non-blacks MDRD (S/P/Bld) [Vol rate/Area] 88 mL/min/{1.73_m2} Normal >60 [facility] Comment on above: Result Comment: Non- GFR Calc Performed By: #### L 500.2500, L100.0100 #### [address] [place], [address] Glucose [Mass/Vol] 97 mg/dL Normal 74-106 [facility] Comment on above: Performed By: #### L 500.2500, L100.0100 #### [address] [place], [address] Potassium [Moles/Vol] 4.1 mmol/L Normal 3.5-5.1 [facility] Comment on above: Performed By: #### L 500.2500, L100.0100 #### [address] [place], [address] Sodium [Moles/Vol] 140 mmol/L Normal 136-145 [facility] Comment on above: Performed By: #### L 500.2500, L100.0100 #### [address] [place], [address] Urea nitrogen [Mass/Vol] 14 mg/dL Normal 7-18 Comment on above: Performed By: #### L 500.2500, L100.0100 #### [address] [place], [address] Basic metabolic 2000 panelon 05-03-2024 Anion gap [Moles/Vol] 10 mmol/L Normal 8-15 [facility] Comment on above: Order Comment: Speci men Type: BLOOD SPECIMEN Ordering Facility: [facility] Address: [address] [place] [address] Performed By: #### 2 4321-2 #### [facility] CLIA [id number] 1 [place] [address] [place] Calcium [Mass/Vol] 9.1 mg/dL Normal 8.5-10.2 [facility] Comment on above: Order Comment: Speci men Type: BLOOD SPECIMEN Ordering Facility: [facility] Address: [address] [place] [address] Performed By: #### 2 4321-2 #### [facility] CLIA [id number] 1 [place] [address] [place] Chloride [Moles/Vol] 106 mmol/L Normal 98-107 [facility] Comment on above: Order Comment: Speci men Type: BLOOD SPECIMEN Ordering Facility: [facility] Address: [address] [place] [address] Performed By: #### 2 4321-2 #### [facility] CLIA [id number] 1 [place] [address] [place] CO2 [Moles/Vol] 26 mmol/L Normal 22-30 [facility] Comment on above: Order Comment: Speci men Type: BLOOD SPECIMEN Ordering Facility: [facility] Address: [address] [place] [address] Performed By: #### 2 4321-2 #### [facility] CLIA [id number] 1 [place] [address] [place] Creatinine [Mass/Vol] 0.79 mg/dL Normal 0.73-1.22 [facility] Comment on above: Order Comment: Soha bray Type: BLOOD SPECIMEN Ordering Facility: [facility] Address: [address] [place] [address] Performed By: #### 2 4321-2 #### [facility] CLIA [id number] [address] [place] Creatinine and Glomerular filtration rate.predicted panel (S/P/Bld) 100 mL/min/1.73m??? Normal >=60 [facility] Comment on above: Order Comment: oSha bray Type: BLOOD SPECIMEN Ordering Facility: [facility] Address: [address] [place] [address] Result Comment: Carey mated Glomerular Filtration Rate [...] GFR. Performed By: #### 2 4321-2 #### [facility] CLIA [id number] [address] [place] [address] [place] Glucose [Mass/Vol] 92 mg/dL Normal 74-99 [facility] Comment on above: Order Comment: Soha bray Type: BLOOD SPECIMEN Ordering Facility: [facility] Address: [address] [place] [address] Result Comment: The [place] Diabetes Association (ADA) provides guidance for cutoff [...] Standards of Medical Care in Diabetes 2016, [place] Diabetes Association. Diabetes Care. 2016.39(Suppl 1). Performed By: #### 2 4321-2 #### [facility] CLIA [id number] 1 [place] [address] [place] Potassium [Moles/Vol] 4.3 mmol/L Normal 3.7-5.1 [facility] Comment on above: Order Comment: Speci men Type: BLOOD SPECIMEN Ordering Facility: [facility] Address: [address] [place] [address] Performed By: #### 2 4321-2 #### [facility] CLIA [id number] 1 [place] [address] [place] Sodium [Moles/Vol] 142 mmol/L Normal 136-144 [facility] Comment on above: Order Comment: Speci men Type: BLOOD SPECIMEN Ordering Facility: [facility] Address: [address] [place] [address] Performed By: #### 2 4321-2 #### [facility] CLIA [id number] [address] [place] Urea nitrogen [Mass/Vol] 13 mg/dL Normal 9-24 [facility] Comment on above: Order Comment: Speci men Type: BLOOD SPECIMEN Ordering Facility: [facility] Address: [address] [place] [address] Performed By: #### 2 4321-2 #### [facility] CLIA [id number] [address] [place] CBC W Auto Differential pane l (Bld)on 05-03-2024 Basophils (Bld) [#/Vol] 0.07 10*3/uL Normal <0.11 [facility] Comment on above: Order Comment: Speci men Type: BLOOD SPECIMEN Ordering Facility: [facility] Address: [address] [place] [address] Performed By: #### 5 7021-8 #### [facility] CLIA [id number] [address] [place] Basophils/100 WBC (Bld) 0.5 % Normal [facility] Comment on above: Order Comment: Speci men Type: BLOOD SPECIMEN Ordering Facility: [facility] Address: [address] [place] [address] Performed By: #### 5 7021-8 #### [facility] CLIA [id number] [address] [place] Differential cell count method Nom (Bld) Auto Normal [facility] Comment on above: Order Comment: Speci men Type: BLOOD SPECIMEN Ordering Facility: [facility] Address: [address] [place] [address] Performed By: #### 5 7021-8 #### [facility] CLIA [id number] [address] [place] Eosinophils (Bld) [#/Vol] 0.47 10*3/uL High <0.46 [facility] Comment on above: Order Comment: Speci men Type: BLOOD SPECIMEN Ordering Facility: [facility] Address: [address] [place] [address] Performed By: #### 5 7021-8 #### [facility] CLIA [id number] [address] [place] Eosinophils/100 WBC (Bld) 3.2 % Normal [facility] Comment on above: Order Comment: Speci men Type: BLOOD SPECIMEN Ordering Facility: [facility] Address: [address] [place] [address] Performed By: #### 5 7021-8 #### [facility] CLIA [id number] [address] [place] Erythrocyte distribution width (RBC) [Ratio] 18.1 % High 11.5-15.0 [facility] Comment on above: Order Comment: Speci men Type: BLOOD SPECIMEN Ordering Facility: [facility] Address: [address] [place] [address] Performed By: #### 5 7021-8 #### [facility] CLIA [id number] [address] [place] Hematocrit (Bld) [Volume fraction] 49.5 % Normal 39.0-51.0 [facility] Comment on above: Order Comment: Speci men Type: BLOOD SPECIMEN Ordering Facility: [facility] Address: [address] [place] [address] Performed By: #### 5 7021-8 #### [facility] CLIA [id number] [address] [place] Hemoglobin (Bld) [Mass/Vol] 16.3 g/dL Normal 13.0-17. 0 [facility] Comment on above: Order Comment: Speci men Type: BLOOD SPECIMEN Ordering Facility: [facility] Address: [address] [place] [address] Performed By: #### 5 7021-8 #### [facility] CLIA [id number] [address] [place] Immature granulocytes (Bld) [#/Vol] 0.08 10*3/uL Normal <0.10 [facility] Comment on above: Order Comment: Speci men Type: BLOOD SPECIMEN Ordering Facility: [facility] Address: [address] [place] [address] Performed By: #### 5 7021-8 #### [facility] CLIA [id number] [address] [place] Immature granulocytes/100 WBC (Bld) 0.5 % Normal [facility] Comment on above: Order Comment: Speci men Type: BLOOD SPECIMEN Ordering Facility: [facility] Address: [address] [place] [address] Performed By: #### 5 7021-8 #### [facility] CLIA [id number] [address] [place] Lymphocytes (Bld) [#/Vol] 3.35 10*3/uL Normal 1.00-4.0 0 [facility] Comment on above: Order Comment: Speci men Type: BLOOD SPECIMEN Ordering Facility: [facility] Address: [address] [place] [address] Performed By: #### 5 7021-8 #### [facility] CLIA [id number] [address] [place] Lymphocytes/100 WBC (Bld) 22.8 % Normal [facility] Comment on above: Order Comment: Speci men Type: BLOOD SPECIMEN Ordering Facility: [facility] Address: [address] [place] [address] Performed By: #### 5 7021-8 #### [facility] CLIA [id number] [address] MCH (RBC) [Entitic mass] 28.6 pg Normal 26.0-34.0 [facility] Comment on above: Order Comment: Speci men Type: BLOOD SPECIMEN Ordering Facility: [facility] Address: [address] [place] [address] Performed By: #### 5 7021-8 #### [facility] CLIA [id number] [address] MCHC (RBC) [Mass/Vol] 32.9 g/dL Normal 30.5-36.0 [facility] Comment on above: Order Comment: Speci men Type: BLOOD SPECIMEN Ordering Facility: [facility] Address: [address] [place] [address] Performed By: #### 5 7021-8 #### [facility] CLIA [id number] [address] MCV (RBC) [Entitic vol] 86.8 fL Normal 80.0-100.0 [facility] Comment on above: Order Comment: Speci men Type: BLOOD SPECIMEN Ordering Facility: [facility] Address: [address] [place] [address] Performed By: #### 5 7021-8 #### [facility] CLIA [id number] [address] Monocytes (Bld) [#/Vol] 1.45 10*3/uL High <0.87 [facility] Comment on above: Order Comment: Speci men Type: BLOOD SPECIMEN Ordering Facility: [facility] Address: [address] [place] [address] Performed By: #### 5 7021-8 #### [facility] CLIA [id number] [address] [place] Monocytes/100 WBC (Bld) 9.9 % Normal A [facility] Comment on above: Order Comment: Speci men Type: BLOOD SPECIMEN Ordering Facility: [facility] Address: [address] [place] [address] Performed By: #### 5 7021-8 #### [facility] CLIA [id number] 1 [place] [address] [place] Neutrophils (Bld) [#/Vol] 9.29 10*3/uL High 1.45-7.5 0 [facility] Comment on above: Order Comment: Speci men Type: BLOOD SPECIMEN Ordering Facility: [facility] Address: [address] [place] [address] Performed By: #### 5 7021-8 #### [facility] CLIA [id number] [address] [place] Neutrophils/100 WBC (Bld) 63.1 % Normal [facility] Comment on above: Order Comment: Speci men Type: BLOOD SPECIMEN Ordering Facility: [facility] Address: [address] [place] [address] Performed By: #### 5 7021-8 #### [facility] CLIA [id number] [address] [place] Nucleated RBC (Bld) [#/Vol] 10*3/uL Normal <0.01 [facility] Comment on above: Order Comment: Speci men Type: BLOOD SPECIMEN Ordering Facility: [facility] Address: [address] [place] [address] Performed By: #### 5 7021-8 #### [facility] CLIA [id number] [address] [place] Nucleated RBC/100 WBC (Bld) [Ratio] 0.0 /100 WBC Normal [facility] Comment on above: Order Comment: Speci men Type: BLOOD SPECIMEN Ordering Facility: [facility] Address: [address] [place] [address] Performed By: #### 5 7021-8 #### [facility] CLIA [id number] [address] [place] Platelet mean volume (Bld) [Entitic vol] 9.5 fL Normal 9.0-12.7 [facility] Comment on above: Order Comment: Speci men Type: BLOOD SPECIMEN Ordering Facility: [facility] Address: [address] [place] [address] Performed By: #### 5 7021-8 #### [facility] CLIA [id number] [address] [place] Platelets (Bld) [#/Vol] 268 10*3/uL Normal 150-400 [facility] Comment on above: Order Comment: Speci men Type: BLOOD SPECIMEN Ordering Facility: [facility] Address: [address] [place] [address] Performed By: #### 5 7021-8 #### [facility] CLIA [id number] [address] RBC (Bld) [#/Vol] 5.70 10*6/uL Normal 4.20-6.00 [facility] Comment on above: Order Comment: Speci men Type: BLOOD SPECIMEN Ordering Facility: [facility] Address: [address] [place] [address] Performed By: #### 5 7021-8 #### [facility] CLIA [id number] [address] [place] WBC (Bld) [#/Vol] 14.71 10*3/uL High 3.70-11.00 [facility] Comment on above: Order Comment: Speci men Type: BLOOD SPECIMEN Ordering Facility: [facility] Address: [address] [place] [address] Performed By: #### 5 7021-8 #### [facility] CLIA [id number] [address] [place] CBC W/Diff, Automatedon 12-0 6-4 Absolute Lymph 3.24 X10 3/uL Normal 0.83-4.51 Comment on above: Performed By: #### L 500.2500, L100.0100 #### [address] [place], [address] Absolute Neut 7.8 X10 3/uL High 2.0-7.7 Comment on above: Performed By: #### L 500.2500, L100.0100 #### [address] [place], [address] Basophils/100 WBC (Bld) 0.5 % Normal 0-1 [facility] Comment on above: Performed By: #### L 500.2500, L100.0100 #### [address] [place], [address] Eosinophils/100 WBC (Bld) 3.5 % Normal 0-5 Comment on above: Performed By: #### L 500.2500, L100.0100 #### [address] [place], [address] Erythrocyte distribution width (RBC) [Ratio] 18.0 % High 11.6-14.6 Comment on above: Performed By: #### L 500.2500, L100.0100 #### [address] [place], [address] Hematocrit (Bld) [Volume fraction] 53.3 % Normal 40-54 Comment on above: Performed By: #### L 500.2500, L100.0100 #### [address] [place], [address] Hemoglobin (Bld) [Mass/Vol] 17.0 g/dL High 13.0-16. 5 Comment on above: Performed By: #### L 500.2500, L100.0100 #### [address] [place], [address] IG% 0.400 Normal 0.0-0.9 Comment on above: Result Comment: IG% - Immature Granulocytes (promyelocytes, myelocytes andmetamyelocytes) > 1% indicates that a LEFT SHIFT is Present. Performed By: #### L 500.2500, L100.0100 #### [address] [place], [address] Lymphocytes/100 WBC (Bld) 25.4 % Normal 19-41 Comment on above: Performed By: #### L 500.2500, L100.0100 #### [address] [place], [address] MCH (RBC) [Entitic mass] 27.6 pg Normal 27.0-32.0 Comment on above: Performed By: #### L 500.2500, L100.0100 #### [address] [place], [address] MCHC (RBC) [Mass/Vol] 31.9 g/dL Low 32-36 [facility] Comment on above: Performed By: #### L 500.2500, L100.0100 #### [address] [place], [address] MCV (RBC) [Entitic vol] 86.4 fL Normal 80-94 [facility] Comment on above: Performed By: #### L 500.2500, L100.0100 #### [address] [place], [address] Monocytes/100 WBC (Bld) 8.8 % Normal 0-10 [facility] Comment on above: Performed By: #### L 500.2500, L100.0100 #### [address] [place], [address] Neutrophils/100 WBC (Bld) 61.4 % Normal 47-70 Comment on above: Performed By: #### L 500.2500, L100.0100 #### [address] [place], [address] Nucleated RBC (Bld) [#/Vol] 0 10*3/uL Normal 0-5 Comment on above: Performed By: #### L 500.2500, L100.0100 #### [address] [place], [address] Platelet mean volume (Bld) [Entitic vol] 9.6 fL Normal 6.2-12.0 Comment on above: Performed By: #### L 500.2500, L100.0100 #### [address] [place], [address] Platelets (Bld) [#/Vol] 299 10*3/uL Normal 150-450 Comment on above: Performed By: #### L 500.2500, L100.0100 #### [address] [place], [address] RBC (Bld) [#/Vol] 6.17 10*6/uL Normal 4.6-6.2 [facility] Comment on above: Performed By: #### L 500.2500, L100.0100 #### [address] [place], [address] RDW SD 53.9 fl High 35.1-43.9 Comment on above: Performed By: #### L 500.2500, L100.0100 #### [address] [place], [address] WBC (Bld) [#/Vol] 12.8 10*3/uL High 4.4-11.0 [facility] Comment on above: Performed By: #### L 500.2500, L100.0100 #### [id number] [place], [address] CONSULTon 05-03-2024 CONSULT HNO ID: [id number] Author: HETAL GALLEGOS MD Service: Orthopaedic Surgery [...] ThighPain HPI:64 year old male presented to [facility] ED on 05/03/2024 for evaluation of right thigh pain. The patient is paraplegic at baseline and is bed bound. He states he has some minimal sensation in the lower extremities. His home health care worker was moving his leg for range [...] MD Orthopaedic Surgery 05/03/2024 10:08 PM Normal [facility] ED NOTEon 05-03-2024 ED NOTE HNO ID: [id number] Author: BILLY COOLEY RN Service: ? Author Type: Registered Nurse Type: ED Notes Filed: 05/03/2024 22:46 Note Text: PT infusion nurse light, asking for sth for pain. Dr. Grissom notified. Normal [facility] ED NOTE HNO ID: [id number] Author: WAYNE LAMBERT Medic Service: ? Author Type: Net Lead Developer and Quality Control Inspector Heading Type: ED Notes Filed: 05/03/2024 16:34 Note Text: Bed: 26-ED Expected date: 05/03/24 Expected time: 4:12 PM Means of arrival: [facility] Comments: Squad when clean Normal [facility] ED PROV NOTEon 05-03-2024 ED PROV NOTE HNO ID: [id number] Author: LESLIE STRANGE MD Service: Emergency Medicine Author Type: Physician Type: ED Provider Notes Filed: 05/08/2024 09:35 Note Text: ED Provider Note Patient Name: Bautista Ruffin : 1960 SERVICE DATE: 05/03/24 History Patient presents with: Hip Pain: Patient arrives to ED from [facility] for ortho consult. Patient has right hip fracture. Occurred during PT/OT while moving leg. Patient is paraplegic. Received 50mcg of fentanyl before arrival. Patient presents as a transfer from [facility] for right hip fracture. Patient has past [...] the right hip and was taken to [facility] for evaluation where he was found to have a nondisplaced subtrochanteric right femur fracture. He was transferred to [facility] for Ortho consult. PAST MEDICAL HISTORY Diagnosis [...] however he (more content not included)... Normal [facility] Emergency Department Summary on 05-03-2024 Emergency Department Summary Normal HIP, UNI W/ Pelvis 2-3 Views on 05-03-2024 HIP, UNI W/ Pelvis 2-3 Views Normal XR FEMUR 2V AP/LAT RTon XR FEMUR [...] KNEE may be obtained, as clinically warranted. Dogman/Woman: MILAGROS Transcribe Date/Time: May 03 2024 8:06P Dictated by : ERNESTO CORRALES MD This examination was interpreted and the report reviewed and electronically signed by: ERNESTO CORRALES MD on May 03 2024 8:11PM EST [id number] Normal [facility] XR HIP 3V PELV+ AP/LAT [...] KNEE may be obtained, as clinically warranted. Dogman/Woman: PSCChris Transcribe Date/Time: May 03 2024 8:06P Dictated by : ERNESTO CORRALES MD This examination was interpreted and the report reviewed and electronically signed by: ERNESTO CORRALES MD on May 03 2024 8:11PM EST [id number] Normal [facility] Absolute lymphocyte countOrd ered By: Adan Bell on 10-09-2023 Lymphocytes Auto (Unsp spec) [#/Vol] 3.10 10*3/uL 0.83-4.51 Automated lymphocyte count a s percentage of total leukocytesOrdered By: Adan Bell on 10-09-2023 Lymphocytes/100 WBC Auto (Unsp spec) 16.3 % 19-41 Basophil percentageOrdered B y: Adan Bell on 10-09-2023 Basophils/100 WBC (Bld) 0.6 % 0-1 [facility] Chloride [Moles/Vol] 100 mmol/L 98-107 [facility] Eosinophils/100 WBC (Bld) 0.8 % 0-5 Glucose [Mass/Vol] 124 mg/dL 74-106 [facility] Comment on above: Fasting Glucose resu lt from 100 to 125 mg/dL suggests IMPAIRED HOMEOSTASIS per A.D.A. criteria. Hemoglobin (Bld) [Mass/Vol] 16.5 g/dL 13.0-16. 5 Monocytes/100 WBC (Bld) 15.1 % 0-10 [facility] Neutrophils (Bld) [#/Vol] 12.6 10*3/uL 2.0-7.7 Neutrophils/100 WBC (Bld) 66.7 % 47-70 Potassium [Moles/Vol] 3.6 mmol/L 3.5-5.1 [facility] Sodium [Moles/Vol] 136 mmol/L 136-145 [facility] WBC (Bld) [#/Vol] 19.0 10*3/uL 4.4-11.0 [facility] Blood manual differential co mment interpretation (narrative result)Ordered By: Adan Bell on 10-09-2023 Manual differential comment Isrrael (Bld) [Interp] SCANNED Comment on above: MONOCYTOSIS PRESENT Determination of erythrocyte mean corpuscular volume (MCV)Ordered By: Adan Bell on 10-09-2023 MCV (RBC) [Entitic vol] 84.3 fL 80-94 [facility] Erythrocyte distribution wid th ratioOrdered By: Adan Bell on 10-09-2023 Erythrocyte distribution width (RBC) [Ratio] 14.9 % 11.6-14.6 Erythrocyte distribution wid th standard deviationOrdered By: Adan Bell on 10-09-2023 Erythrocyte distribution width (RBC) [Entitic vol] 45.5 fL 35.1-43.9 [facility] Hematocrit Auto (Bld) [Volum e fraction]Ordered By: Adan Bell on 10-09-2023 Hematocrit (Bld) [Volume fraction] 50.0 % 40-54 Immature granulocytes/100 WB C Auto (Bld)Ordered By: Adan Bell on 10-09-2023 Immature granulocytes/100 WBC (Bld) 0.500 % 0.0-0.9 Comment on above: IG% - Immature Granu locytes (promyelocytes, myelocytes and metamyelocytes) > 1% indicates that a LEFT SHIFT is Present. Laboratory - Chemistry and C hemistry - challengeOrdered By: Adan Bell on 10-09-2023 CO2 [Moles/Vol] 26.0 mmol/L 21.0-32.0 Urea nitrogen/Creatinine [Mass ratio] 17.3 mg/mg 10-20 Laboratory - Hematology and Cell countsOrdered By: Adan Bell on 10-09-2023 MCH (RBC) [Entitic mass] 27.8 pg 27.0-32.0 MCHC (RBC) [Mass/Vol] 33.0 g/dL 32-36 [facility] Nucleated RBC/100 WBC (Bld) [Ratio] 0 % 0-5 Platelet mean volume (Bld) [Entitic vol] 9.5 fL 6.2-12.0 Platelets (Bld) [#/Vol] 531 10*3/uL 150-450 No Panel InformationOrdered By: Adan Bell on 10-09-2023 Troponin I High Sensitivity 7 pg/mL 3.0-78.0 Comment on above: Please Note: New Tanya t Units and Gender Specific Reference Ranges. For more information see Policy Stat Procedure Max High Sensitivity Troponin (TNIH) and attachments. Estimated GFR (MDRD) Amer 135 mL/min >60 Comment on above: GFR Calc Estimated GFR (MDRD) Non-Af Amer 112 mL/min >60 Comment on above: Non- GFR Calc RBC Auto (Bld) [#/Vol]Ordere d By: Adan Bell on 10-09-2023 RBC (Bld) [#/Vol] 5.93 10*6/uL 4.6-6.2 [facility] Review by pathologistOrdered By: Adan Bell on 10-09-2023 Pathologist review Isrrael (Unsp spec) [Interp] May foll Serum or plasma calcium shantal urement (mass/volume)Ordered By: Adan Bell on 10-09-2023 Calcium [Mass/Vol] 9.7 mg/dL 8.5-10.1 [facility] Serum or plasma creatinine m easurement (mass/volume)Ordered By: Adan Bell on 10-09-2023 Creatinine [Mass/Vol] 0.75 mg/dL 0.70-1.30 [facility] Comment on above: The validity of the calculated GFR & GFRAA in patients over 70 years has not been determined. Clinical correlation is essential. Serum or plasma urea nitroge n measurement (mass/volume)Ordered By: Adan Bell on 10-09-2023 Urea nitrogen [Mass/Vol] 13 mg/dL 7-18 Thin prep Papanicolaou smear with manual screeningOrdered By: Adan Bell on 10-09-2023 Thin prep Papanicolaou smear with manual screening 10 5-15 Absolute lymphocyte counton 06-06-2022 Lymphocytes Auto (Unsp spec) [#/Vol] 3.07 10*3/uL 0.83-4.51 Work Phone: Basophil percentageon 2022 Basophil percentage 10-25 SEEN /hpf 0-5 Work Phone: Basophils/100 WBC (Bld) 0.3 % 0-1 [facility] Work Phone: Chloride [Moles/Vol] 109 mmol/L 98-107 [facility] Work Phone: Eosinophils/100 WBC (Bld) 1.4 % 0-5 Work Phone: Glucose [Mass/Vol] 93 mg/dL 74-106 [facility] Work Phone: Neutrophils (Bld) [#/Vol] 10.5 10*3/uL 2.0-7.7 Work Phone: Neutrophils/100 WBC (Bld) 67.2 % 47-70 Work Phone: Potassium [Moles/Vol] 3.8 mmol/L 3.5-5.1 [facility] Work Phone: Sodium [Moles/Vol] 143 mmol/L 136-145 [facility] Work Phone: WBC (Bld) [#/Vol] 15.7 10*3/uL 4.4-11.0 [facility] Work Phone: [phone] Bilirubin Test strip Ql (U)o n 06-06-2022 Bilirubin Ql (U) Negative Negative Work Phone: Blood erythrocytes count (nu mber/volume)on 06-06-2022 RBC (Bld) [#/Vol] 5.18 10*6/uL 4.6-6.2 [facility] Work Phone: Blood hemoglobin measurement (mass/volume)on 06-06-2022 Hemoglobin (Bld) [Mass/Vol] 14.2 g/dL 13.0-16. 5 Work Phone: Blood lymphocytes/100 leukoc yteson 06-06-2022 Lymphocytes/100 WBC (Bld) 19.6 % 19-41 Work Phone: Blood manual differential co mment interpretation (narrative result)on 06-06-2022 Manual differential comment Isrrael (Bld) [Interp] SCANNED Work Phone: Blood monocytes/100 leukocyt eson 06-06-2022 Monocytes/100 WBC (Bld) 10.9 % 0-10 [facility] Work Phone: Blood platelet mean volumeon 06-06-2022 Platelet mean volume (Bld) [Entitic vol] 9.5 fL 6.2-12.0 Work Phone: Determination of erythrocyte mean corpuscular volume (MCV)on 06-06-2022 MCV (RBC) [Entitic vol] 87.1 fL 80-94 [facility] Work Phone: Hematocrit Auto (Bld) [Volum e fraction]on 06-06-2022 Hematocrit (Bld) [Volume fraction] 45.1 % 40-54 Work Phone: Ketones Test strip Ql (U)on 06-06-2022 Ketones Ql (U) 5 mg/dl Negative Work Phone: Laboratory - Chemistry and C hemistry - challengeon 06-06-2022 CO2 [Moles/Vol] 29.0 mmol/L 21.0-32.0 Work Phone: Urea nitrogen/Creatinine [Mass ratio] 21.8 mg/mg 10-20 Work Phone: Laboratory - Hematology and Cell countson 06-06-2022 Erythrocyte distribution width (RBC) [Entitic vol] 49.6 fL 35.1-43.9 [facility] Work Phone: Erythrocyte distribution width (RBC) [Ratio] 15.7 % 11.6-14.6 Work Phone: Immature granulocytes/100 WBC (Bld) 0.600 % 0.0-0.9 Work Phone: Comment on above: IG% - Immature Granu locytes (promyelocytes, myelocytes and metamyelocytes) > 1% indicates that a LEFT SHIFT is Present. MCH (RBC) [Entitic mass] 27.4 pg 27.0-32.0 Work Phone: [phone] Nucleated RBC/100 WBC (Bld) [Ratio] 0 % 0-5 Work Phone: MCHC Auto (RBC) [Mass/Vol]on 06-06-2022 MCHC (RBC) [Mass/Vol] 31.5 g/dL 32-36 [facility] Work Phone: Mucus LM Ql (Urine sed)on Mucus Ql (Urine sed) 0 SEEN /hpf [facility] Work Phone: Nitrite Test strip Ql (U)on 06-06-2022 Nitrite Ql (U) Positive Negative Work Phone: No Panel Informationon 06-06 Estimated Creatinine Clearance Calc 88.45 ml/min Work Phone: Estimated GFR (MDRD) Amer 122 mL/min >60 Work Phone: Comment on above: GFR Calc Estimated GFR (MDRD) Non-Af Amer 101 mL/min >60 Work Phone: Comment on above: Non- GFR Calc Platelets bldon 06-06-2022 Platelets (Bld) [#/Vol] 433 10*3/uL 150-450 Work Phone: Protein Test strip Ql (U)on 06-06-2022 Protein Ql (U) 15 mg/dl Negative Work Phone: Review by pathologiston Pathologist review Isrrael (Unsp spec) [Interp] September mikael Work Phone: Serum or plasma calcium shantal urement (mass/volume)on 06-06-2022 Calcium [Mass/Vol] 9.1 mg/dL 8.5-10.1 [facility] Work Phone: Serum or plasma creatinine m easurement (mass/volume)on 06-06-2022 Creatinine [Mass/Vol] 0.82 mg/dL 0.70-1.30 [facility] Work Phone: Comment on above: The validity of the calculated GFR & GFRAA in patients over 70 years has not been determined. Clinical correlation is essential. Serum or plasma urea nitroge n measurement (mass/volume)on 06-06-2022 Urea nitrogen [Mass/Vol] 18 mg/dL 7-18 Work Phone: Squamous epithelial cells de tection in urine sediment by light microscopyon 06-06-2022 Epithelial cells.squamous LM Ql (Urine sed) 0 SEEN /hpf 0-5 Work Phone: Thin prep Papanicolaou smear with manual screeningon 06-06-2022 Thin prep Papanicolaou smear with manual screening 5 5-15 Work Phone: [phone] Urine blood detectionon RBC Ql (U) 25 /ul Negative Work Phone: [phone] RBC Ql (U) 0-5 SEEN /hpf 0-5 Work Phone: Urine clarityon 06-06-2022 Clarity (U) Clear Clear Work Phone: Urine color determinationon 06-06-2022 Color (U) Yellow Yellow Work Phone: Urine glucose detectionon Glucose Ql (U) Normal mg/dl Normal Work Phone: Urine leukocyte esterase det ection by dipstickon 06-06-2022 Leukocyte esterase Test strip Ql (U) 500 /ul Negative Work Phone: [phone] Urine pHon 06-06-2022 pH (U) 6.0 [pH] 5.0 - 8.0 Work Phone: Urine sediment bacteria coun t by microscopy (number/high power field)on 06-06-2022 Bacteria LM.HPF (Urine sed) [#/Area] 2 /[HPF] None Seen Work Phone: Urine specific gravity measu rementon 06-06-2022 Specific gravity (U) [Rel density] 1.020 1.002-1.03 0 Work Phone: Urobilinogen Auto test strip Ql (U)on 06-06-2022 Urobilinogen Ql (U) Normal mg/dl Normal [facility] Work Phone: Absolute lymphocyte counton 05-22-2022 Lymphocytes Auto (Unsp spec) [#/Vol] 0.67 10*3/uL 0.83-4.51 Work Phone: Basophil percentageon 2021 Basophils/100 WBC (Bld) 0.4 % 0-1 [facility] Work Phone: Chloride [Moles/Vol] 105 mmol/L 98-107 [facility] Work Phone: Eosinophils/100 WBC (Bld) 0.1 % 0-5 Work Phone: Glucose [Mass/Vol] 102 mg/dL 74-106 [facility] Work Phone: [phone] Comment on above: Fasting Glucose resu lt from 100 to 125 mg/dL suggests IMPAIRED HOMEOSTASIS per A.D.A. criteria. Neutrophils (Bld) [#/Vol] 7.0 10*3/uL 2.0-7.7 Work Phone: Neutrophils/100 WBC (Bld) 77.2 % 47-70 Work Phone: [phone] Potassium [Moles/Vol] 4.2 mmol/L 3.5-5.1 [facility] Work Phone: [phone] Comment on above: Slight Hemolysis, Re sult may be falsely increased. Sodium [Moles/Vol] 135 mmol/L 136-145 [facility] Work Phone: WBC (Bld) [#/Vol] 9.1 10*3/uL 4.4-11.0 [facility] Work Phone: Blood erythrocytes count (nu mber/volume)on 05-22-2022 RBC (Bld) [#/Vol] 5.47 10*6/uL 4.6-6.2 [facility] Work Phone: Blood hemoglobin measurement (mass/volume)on 05-22-2022 Hemoglobin (Bld) [Mass/Vol] 15.6 g/dL 13.0-16. 5 Work Phone: Blood lymphocytes/100 leukoc yteson 05-22-2022 Lymphocytes/100 WBC (Bld) 7.3 % 19-41 Work Phone: Blood monocytes/100 leukocyt eson 05-22-2022 Monocytes/100 WBC (Bld) 14.7 % 0-10 [facility] Work Phone: Blood platelet mean volumeon 05-22-2022 Platelet mean volume (Bld) [Entitic vol] 9.7 fL 6.2-12.0 Work Phone: [phone] Determination of erythrocyte mean corpuscular volume (MCV)on 05-22-2022 MCV (RBC) [Entitic vol] 84.5 fL 80-94 [facility] Work Phone: [phone] Hematocrit Auto (Bld) [Volum e fraction]on 05-22-2022 Hematocrit (Bld) [Volume fraction] 46.2 % 40-54 Work Phone: Laboratory - Chemistry and C hemistry - challengeon 05-22-2022 CO2 [Moles/Vol] 22.0 mmol/L 21.0-32.0 Work Phone: [phone] Urea nitrogen/Creatinine [Mass ratio] 22.5 mg/mg 10-20 Work Phone: [phone] Laboratory - Hematology and Cell countson 05-22-2022 Erythrocyte distribution width (RBC) [Entitic vol] 49.6 fL 35.1-43.9 [facility] Work Phone: [phone] Erythrocyte distribution width (RBC) [Ratio] 16.1 % 11.6-14.6 Work Phone: [phone] Immature granulocytes/100 WBC (Bld) 0.300 % 0.0-0.9 Work Phone: Comment on above: IG% - Immature Granu locytes (promyelocytes, myelocytes and metamyelocytes) > 1% indicates that a LEFT SHIFT is Present. MCH (RBC) [Entitic mass] 28.5 pg 27.0-32.0 Work Phone: Nucleated RBC/100 WBC (Bld) [Ratio] 0 % 0-5 Work Phone: MCHC Auto (RBC) [Mass/Vol]on 05-22-2022 MCHC (RBC) [Mass/Vol] 33.8 g/dL 32-36 [facility] Work Phone: No Panel Informationon 05-22 Estimated Creatinine Clearance Calc 92.35 ml/min Work Phone: Estimated GFR (MDRD) Amer 119 mL/min >60 Work Phone: Comment on above: GFR Calc Estimated GFR (MDRD) Non-Af Amer 98 mL/min >60 Work Phone: Comment on above: Non- GFR Calc Platelets bldon 05-22-2022 Platelets (Bld) [#/Vol] 268 10*3/uL 150-450 Work Phone: Serum or plasma calcium shantal urement (mass/volume)on 05-22-2022 Calcium [Mass/Vol] 9.1 mg/dL 8.5-10.1 [facility] Work Phone: Serum or plasma creatinine m easurement (mass/volume)on 05-22-2022 Creatinine [Mass/Vol] 0.84 mg/dL 0.70-1.30 [facility] Work Phone: Comment on above: The validity of the calculated GFR & GFRAA in patients over 70 years has not been determined. Clinical correlation is essential. Serum or plasma urea nitroge n measurement (mass/volume)on 05-22-2022 Urea nitrogen [Mass/Vol] 19 mg/dL 7-18 Work Phone: Thin prep Papanicolaou smear with manual screeningon 05-22-2022 Thin prep Papanicolaou smear with manual screening 8 5-15 Work Phone: [phone] Absolute lymphocyte counton 09-09-2021 Lymphocytes Auto (Unsp spec) [#/Vol] 2.88 10*3/uL 0.83-4.51 Work Phone: Basophil percentageon 2021 Basophils/100 WBC (Bld) 0.5 % 0-1 [facility] Work Phone: Chloride [Moles/Vol] 111 mmol/L 98-107 [facility] Work Phone: Eosinophils/100 WBC (Bld) 4.8 % 0-5 Work Phone: Glucose [Mass/Vol] 109 mg/dL 74-106 [facility] Work Phone: [phone] Comment on above: Fasting Glucose resu lt from 100 to 125 mg/dL suggests IMPAIRED HOMEOSTASIS per A.D.A. criteria. Neutrophils (Bld) [#/Vol] 6.3 10*3/uL 2.0-7.7 Work Phone: Neutrophils/100 WBC (Bld) 59.3 % 47-70 Work Phone: [phone] Potassium [Moles/Vol] 3.9 mmol/L 3.5-5.1 [facility] Work Phone: Sodium [Moles/Vol] 140 mmol/L 136-145 [facility] Work Phone: WBC (Bld) [#/Vol] 10.5 10*3/uL 4.4-11.0 [facility] Work Phone: [phone] Blood erythrocytes count (nu mber/volume)on 09-09-2021 RBC (Bld) [#/Vol] 5.23 10*6/uL 4.6-6.2 [facility] Work Phone: Blood hemoglobin measurement (mass/volume)on 09-09-2021 Hemoglobin (Bld) [Mass/Vol] 15.0 g/dL 13.0-16. 5 Work Phone: Blood lymphocytes/100 leukoc yteson 09-09-2021 Lymphocytes/100 WBC (Bld) 27.4 % 19-41 Work Phone: Blood monocytes/100 leukocyt eson 09-09-2021 Monocytes/100 WBC (Bld) 7.5 % 0-10 [facility] Work Phone: Blood platelet mean volumeon 09-09-2021 Platelet mean volume (Bld) [Entitic vol] 9.1 fL 6.2-12.0 Work Phone: [phone] Determination of erythrocyte mean corpuscular volume (MCV)on 09-09-2021 MCV (RBC) [Entitic vol] 88.5 fL 80-94 [facility] Work Phone: Hematocrit Auto (Bld) [Volum e fraction]on 09-09-2021 Hematocrit (Bld) [Volume fraction] 46.3 % 40-54 Work Phone: [phone] Laboratory - Chemistry and C hemistry - challengeon 09-09-2021 CO2 [Moles/Vol] 25.0 mmol/L 21.0-32.0 Work Phone: [phone] Urea nitrogen/Creatinine [Mass ratio] 22.4 mg/mg 10-20 Work Phone: [phone] Laboratory - Hematology and Cell countson 09-09-2021 Erythrocyte distribution width (RBC) [Entitic vol] 49.1 fL 35.1-43.9 [facility] Work Phone: [phone] Erythrocyte distribution width (RBC) [Ratio] 15.0 % 11.6-14.6 Work Phone: [phone] Immature granulocytes/100 WBC (Bld) 0.500 % 0.0-0.9 Work Phone: [phone] Comment on above: IG% - Immature Granu locytes (promyelocytes, myelocytes and metamyelocytes) > 1% indicates that a LEFT SHIFT is Present. MCH (RBC) [Entitic mass] 28.7 pg 27.0-32.0 Work Phone: Nucleated RBC/100 WBC (Bld) [Ratio] 0 % 0-5 Work Phone: MCHC Auto (RBC) [Mass/Vol]on 09-09-2021 MCHC (RBC) [Mass/Vol] 32.4 g/dL 32-36 [facility] Work Phone: No Panel Informationon 09-09 Estimated Creatinine Clearance Calc 80.85 ml/min Work Phone: Estimated GFR (MDRD) Amer 105 mL/min >60 Work Phone: Comment on above: GFR Calc Estimated GFR (MDRD) Non-Af Amer 87 mL/min >60 Work Phone: Comment on above: Non- GFR Calc Platelets bldon 09-09-2021 Platelets (Bld) [#/Vol] 308 10*3/uL 150-450 Work Phone: Serum or plasma calcium shantal urement (mass/volume)on 09-09-2021 Calcium [Mass/Vol] 9.0 mg/dL 8.5-10.1 [facility] Work Phone: Serum or plasma creatinine m easurement (mass/volume)on 09-09-2021 Creatinine [Mass/Vol] 0.94 mg/dL 0.70-1.30 [facility] Work Phone: Comment on above: The validity of the calculated GFR & GFRAA in patients over 70 years has not been determined. Clinical correlation is essential. Serum or plasma urea nitroge n measurement (mass/volume)on 09-09-2021 Urea nitrogen [Mass/Vol] 21 mg/dL 7-18 Work Phone: Thin prep Papanicolaou smear with manual screeningon 09-09-2021 Thin prep Papanicolaou smear with manual screening 4 5-15 Work Phone: Basophil percentageon 2021 Bilirubin [Mass/Vol] 0.60 mg/dL 0.20-1.00 [facility] Work Phone: Comment on above: For patients on eltr ombopag therapy, use of Dimension Max TBIL is not recommended. Chloride [Moles/Vol] 105 mmol/L 98-107 [facility] Work Phone: Glucose [Mass/Vol] 112 mg/dL 74-106 [facility] Work Phone: Comment on above: Fasting Glucose resu lt from 100 to 125 mg/dL suggests IMPAIRED HOMEOSTASIS per A.D.A. criteria. Potassium [Moles/Vol] 3.9 mmol/L 3.5-5.1 [facility] Work Phone: Protein [Mass/Vol] 7.6 g/dL 6.4-8.2 [facility] Work Phone: Sodium [Moles/Vol] 136 mmol/L 136-145 [facility] Work Phone: WBC (Bld) [#/Vol] 14.9 10*3/uL 4.4-11.0 [facility] Work Phone: Blood erythrocytes count (nu mber/volume)on 06-29-2021 RBC (Bld) [#/Vol] 6.16 10*6/uL 4.6-6.2 [facility] Work Phone: Blood hemoglobin measurement (mass/volume)on 06-29-2021 Hemoglobin (Bld) [Mass/Vol] 18.1 g/dL 13.0-16. 5 Work Phone: Blood platelet mean volumeon 06-29-2021 Platelet mean volume (Bld) [Entitic vol] 9.8 fL 6.2-12.0 Work Phone: Determination of erythrocyte mean corpuscular volume (MCV)on 06-29-2021 MCV (RBC) [Entitic vol] 86.7 fL 80-94 [facility] Work Phone: Hematocrit Auto (Bld) [Volum e fraction]on 06-29-2021 Hematocrit (Bld) [Volume fraction] 53.4 % 40-54 Work Phone: Laboratory - Chemistry and C hemistry - challengeon 06-29-2021 ALP [Catalytic activity/Vol] 167 U/L 45-117 Work Phone: [phone] ALT [Catalytic activity/Vol] 23 U/L 16-61 Work Phone: CO2 [Moles/Vol] 24.0 mmol/L 21.0-32.0 Work Phone: Globulin (S) [Mass/Vol] 4.5 g/dL 2.2-4.2 [facility] Work Phone: Urea nitrogen/Creatinine [Mass ratio] 19.4 mg/mg 10-20 Work Phone: Laboratory - Hematology and Cell countson 06-29-2021 Erythrocyte distribution width (RBC) [Entitic vol] 49.0 fL 35.1-43.9 [facility] Work Phone: Erythrocyte distribution width (RBC) [Ratio] 16.0 % 11.6-14.6 Work Phone: MCH (RBC) [Entitic mass] 29.4 pg 27.0-32.0 Work Phone: MCHC Auto (RBC) [Mass/Vol]on 06-29-2021 MCHC (RBC) [Mass/Vol] 33.9 g/dL 32-36 [facility] Work Phone: Comment on above: Delta: 32.1 on 06/28 No Panel Informationon 06-29 Estimated Creatinine Clearance Calc 113.43 ml/min Work Phone: Estimated GFR (MDRD) Amer 156 mL/min >60 Work Phone: Comment on above: GFR Calc Estimated GFR (MDRD) Non-Af Amer 129 mL/min >60 Work Phone: Comment on above: Non- GFR Calc Platelets bldon 06-29-2021 Platelets (Bld) [#/Vol] 283 10*3/uL 150-450 Work Phone: Review by pathologiston Pathologist review Isrrael (Unsp spec) [Interp] Reviewed Work Phone: Comment on above: Previous reported re sult: Eleni youssef Edited by: ELOY on 06/30/21:931Neutrophilic leukocytosis.Clinical correlation suggested.Norris Mc D.O. 06/30/21 AMENDED REPORT 06/30/21 0932 PATH REV previously reported as: September mikael Serum or plasma albumin shantal urement (mass/volume)on 06-29-2021 Albumin [Mass/Vol] 3.1 g/dL 3.2-5.0 [facility] Work Phone: Serum or plasma albumin/glob ulin mass ratioon 06-29-2021 Albumin/Globulin [Mass ratio] 0.7 {ratio} 0.9-2.4 Work Phone: Serum or plasma calcium shantal urement (mass/volume)on 06-29-2021 Calcium [Mass/Vol] 9.5 mg/dL 8.5-10.1 [facility] Work Phone: Serum or plasma creatinine m easurement (mass/volume)on 06-29-2021 Creatinine [Mass/Vol] 0.67 mg/dL 0.70-1.30 [facility] Work Phone: Comment on above: The validity of the calculated GFR & GFRAA in patients over 70 years has not been determined. Clinical correlation is essential. Serum or plasma urea nitroge n measurement (mass/volume)on 06-29-2021 Urea nitrogen [Mass/Vol] 13 mg/dL 7-18 Work Phone: [phone] Thin prep Papanicolaou smear with manual screeningon 06-29-2021 Thin prep Papanicolaou smear with manual screening 36 U/L 15-37 Work Phone: Thin prep Papanicolaou smear with manual screening 7 5-15 Work Phone: [phone] Absolute lymphocyte counton 06-28-2021 Lymphocytes Auto (Unsp spec) [#/Vol] 2.53 10*3/uL 0.83-4.51 Work Phone: Basophil percentageon 2021 Basophils/100 WBC (Bld) 0.4 % 0-1 [facility] Work Phone: [phone] Cholesterol [Mass/Vol] 142 mg/dL <200 [facility] Work Phone: [phone] Comment on above: <200 mg/dL Desirable 200-240 mg/dL Borderline >240 mg/dL High Risk Eosinophils/100 WBC (Bld) 2.1 % 0-5 Work Phone: [phone] Neutrophils (Bld) [#/Vol] 8.4 10*3/uL 2.0-7.7 Work Phone: [phone] Neutrophils/100 WBC (Bld) 69.2 % 47-70 Work Phone: [phone] Triglyceride [Mass/Vol] 141 mg/dL [facility] Work Phone: [phone] Comment on above: The drugs N-Acetylcy steine and Metamizole may falsely depress this assay.Serum Triglycerides Reference Interval Normal <150 mg/dL Borderline high 150 - 199 mg/dL High 200 - 499 mg/dL Very High > or = 500 mg/dL Blood lymphocytes/100 leukoc yteson 06-28-2021 Lymphocytes/100 WBC (Bld) 20.9 % 19-41 Work Phone: Blood monocytes/100 leukocyt eson 06-28-2021 Monocytes/100 WBC (Bld) 6.9 % 0-10 [facility] Work Phone: Laboratory - Chemistry and C hemistry - challengeon 06-28-2021 Magnesium [Mass/Vol] 2.1 mg/dL 1.6-2.6 [facility] Work Phone: Laboratory - Hematology and Cell countson 06-28-2021 Immature granulocytes/100 WBC (Bld) 0.500 % 0.0-0.9 Work Phone: Comment on above: IG% - Immature Granu locytes (promyelocytes, myelocytes and metamyelocytes) > 1% indicates that a LEFT SHIFT is Present. Nucleated RBC/100 WBC (Bld) [Ratio] 0 % 0-5 Work Phone: No Panel Informationon 06-28 Troponin I High Sensitivity 3963 pg/mL 3.0-78.0 Work Phone: Comment on above: Critical Result(s) C alled at: 08:02:18 06/28/2021 by: Yesi Mcbride to [place]. Results read back by same. Please Note: New Test Units and Gender Specific Reference Ranges. For more information see Policy Stat Procedure Max High Sensitivity Troponin (TNIH) and attachments. Serum or plasma cholesterol in HDL measurement (mass/volume)on 06-28-2021 Cholesterol in HDL [Mass/Vol] 39 mg/dL Work Phone: Comment on above: The drugs N-Acetylcy steine and Metamizole may falsely depress this assay. Reference Range HDL <40 mg/dL Low HDL Cholesterol HDL >or= 60 mg/dL High HDL Cholesterol Serum or plasma cholesterol in VLDL measurement (mass/volume)on 06-28-2021 Cholesterol in VLDL [Mass/Vol] 28 mg/dL 5-40 Work Phone: Serum or plasma low density lipoprotein (LDL) cholesterol measurement (mass/volume)on 06-28-2021 Cholesterol in LDL [Mass/Vol] 75 mg/dL 0-130 Work Phone: Basic Metabolic Panelon 12-3 Anion gap 3 mmol/L Normal [facility] Comment on above: Performed By: #### H EMOG, LACT3, BMP3 ####[address] [place] [address] Calcium 8.5 mg/dL Normal 8.4-10.2 [facility] Comment on above: Performed By: #### H EMOG, LACT3, BMP3 ####[address] [place] [address] CO2 27 mmol/L Normal 22-30 [facility] Comment on above: Performed By: #### H EMOG, LACT3, BMP3 ####[address] [place] [address] Glucose mass conc 111 mg/dL High 70-100 [facility] Comment on above: Performed By: #### H EMOG, LACT3, BMP3 ####[address] [place] [address] Urea nitrogen 13 mg/dL Normal 7-20 [facility] Comment on above: Performed By: #### H EMOG, LACT3, BMP3 ####[address] [place] [address] Creatinine 0.71 mg/dL Normal 0.52-1.25 [facility] Comment on above: Performed By: #### H EMOG, LACT3, BMP3 ####[address] [place] [address] eGFR (black) mL/min/{1.73_m2} Normal >60 [facility] Comment on above: Performed By: #### H EMOG, LACT3, BMP3 ####[address] [place] [address] eGFR (non-black) mL/min/{1.73_m2} Normal >60 [facility] Comment on above: Result Comment: Sour ce- MDRD equation with creatinine calibration to IDMS(NKDEP)eGFR not recommended for drug dose adjustment Performed By: #### H EMOG, LACT3, BMP3 ####[address] [place] [address] Potassium molar conc 4.8 mmol/L Normal 3.5-5.1 [facility] Comment on above: Performed By: #### H EMOG, LACT3, BMP3 ####[address] [place] [address] Sodium 136 mmol/L Low 137-145 [facility] Comment on above: Performed By: #### H EMOG, LACT3, BMP3 ####[address] [place] [address] Chloride 106 mmol/L Normal 98-107 [facility] Comment on above: Performed By: #### H EMOG, LACT3, BMP3 ####[address] [place] [address] Hemogramon 05-28-2017 Erythrocyte distribution width Auto Ratio (RBC) 19.0 % High 11.5-14.5 [facility] Comment on above: Performed By: #### H EMOG, LACT3, BMP3 ####[address] [place] [address] Erythrocytes (RBC) 3.46 10*6/uL Low 4.40-5.90 [facility] Comment on above: Performed By: #### H EMOG, LACT3, BMP3 ####[address] [address] Hematocrit (HCT) 28.1 % Low 40.0-52.0 [facility] Comment on above: Performed By: #### H EMOG, LACT3, BMP3 ####[address] [place] [address] Hemoglobin mass conc (Bld) 9.1 g/dL Low 13.0-18.0 [facility] Comment on above: Performed By: #### H EMOG, LACT3, BMP3 ####[address] [place] [address] MCH 26.4 pg Normal 26.0-34.0 [facility] Comment on above: Performed By: #### H EMOG, LACT3, BMP3 ####[address] [place] [address] MCHC mass conc (RBC) 32.4 % Normal 32.0-36.0 [facility] Comment on above: Performed By: #### H EMOG, LACT3, BMP3 ####[address] [place] [address] MCV 81.4 fL Normal 80.0-98.0 [facility] Comment on above: Performed By: #### H EMOG, LACT3, BMP3 ####[address] [place] [address] Platelet mean volume (PMV) 6.9 fL Low 7.4-10.4 [facility] Comment on above: Performed By: #### H EMOG, LACT3, BMP3 ####[address] [place] [address] Platelets 573 10*3/uL High 140-440 [facility] Comment on above: Performed By: #### H EMOG, LACT3, BMP3 ####[address] [place] [address] WBC (Leukocytes) 11.2 10*3/uL High 3.6-10.7 [facility] Comment on above: Performed By: #### H EMOG, LACT3, BMP3 ####[address] [place] [address] CR Chest Portableon 05-27-20 17 CR Chest Portable Patient Name: BAUTISTA RUFFIN Diagnostic Radiology Exam Date/Time 05/27/2017 11:05:26 EST Exam CR Chest Portable Ordering Physician DO TILLEY KATHRYN C Accession Number [id number] CPT4 Codes 50428 () Reason For Exam line placement Report [...] Transcribed Date and Time: 05/27/2017 11:11 Normal [facility] Lactic Acidon 05-27-2017 Lactate 1.4 mmol/L Normal 0.7-2.0 [facility] Comment on above: Performed By: #### H EMOG, LACT3, BMP3 ####[address] [address] CR Chest Portableon 05-26-20 17 CR Chest Portable Patient Name: BAUTISTA RUFFIN Diagnostic Radiology Exam Date/Time 05/26/2017 16:21:52 EST Exam CR Chest Portable Ordering Physician DO TILLEY KATHRYN C Accession Number [id number] CPT4 Codes 04161 () Reason For Exam line placement Report [...] Transcribed Date and Time: 05/26/2017 7:29 Normal [facility] US Fine Needle Aspiration w/ Image Guideon 05-25-2017 US Fine Needle Aspiration w/ Image Guide Patient Name: BAUTISTA RUFFIN Ultrasound Exam Date/Time 05/25/2017 12:15:00 EST Exam US Fine Needle Aspiration w/ Image Guide Ordering Physician MD PERRY RAMA D Accession Number [id number] CPT4 Codes 50480 () Reason For Exam rt hip effusion Report Reason for examination: Paraplegic patient with sepsis, 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 Ultrasound guided right hip aspiration was performed with the patient in his bed. The procedure, risks, benefits, and alternatives were explained to the patient, and informed consent was obtained. [place] protocol was followed with time out. The [...] Transcribed Date and Time: 05/25/2017 1:35 Normal [facility] Basic Metabolic Panelon 12-2 Calcium 8.0 mg/dL Low 8.4-10.2 [facility] Comment on above: Performed By: #### H EMOG, LACT3, BMP3 ####[place] [address] Anion gap 2 mmol/L Normal [facility] Comment on above: Performed By: #### H EMOG, LACT3, BMP3 ####[address] [place] [address] CO2 30 mmol/L Normal 22-30 [facility] Comment on above: Performed By: #### H EMOG, LACT3, BMP3 ####[place] [address] Creatinine 0.60 mg/dL Normal 0.52-1.25 [facility] Comment on above: Performed By: #### H EMOG, LACT3, BMP3 ####[address] [place] [address] eGFR (black) mL/min/{1.73_m2} Normal >60 [facility] Comment on above: Performed By: #### H EMOG, LACT3, BMP3 ####[address] [place] [address] eGFR (non-black) mL/min/{1.73_m2} Normal >60 [facility] Comment on above: Result Comment: Sour ce- MDRD equation with creatinine calibration to IDMS(NKDEP)eGFR not recommended for drug dose adjustment Performed By: #### H EMOG, LACT3, BMP3 ####[address] [place] [address] Glucose mass conc 98 mg/dL Normal 70-100 [facility] Comment on above: Performed By: #### H EMOG, LACT3, BMP3 ####[address] [place] [address] Urea nitrogen 6 mg/dL Low 7-20 [facility] Comment on above: Performed By: #### H EMOG, LACT3, BMP3 ####[address] [place] [address] Chloride 106 mmol/L Normal 98-107 [facility] Comment on above: Performed By: #### H EMOG, LACT3, BMP3 ####[address] [place] [address] Potassium molar conc 3.7 mmol/L Normal 3.5-5.1 [facility] Comment on above: Performed By: #### H EMOG, LACT3, BMP3 ####[address] [place] [address] Sodium 138 mmol/L Normal 137-145 [facility] Comment on above: Performed By: #### H EMOG, LACT3, BMP3 ####[address] [place] [address] CULTUREon 05-24-2017 CULTURE Specimen Source Comment:Body Fluid [facility] Patient name: BAUTISTA RUFFIN WilderNGage: [id number] : 1960 Age: 57 Sex: M Ord. Physician: CHIVO PERRY Location: [address] [place] [address] Copy to: CHIVO PERRY Adm. Date: 05/19/17 MICROBIOLOGYORDER#: [id number] COLLECTED: 05/24/17 14:18SOURCE: Aspirate Right (Hip) RECEIVED: [...] DOSE DEPENDENT HARMAN VALUES = ug/mL Normal [facility] Comment on above: Performed By: #### H HUY GEORGE3, BMP3 ####[address] [address] CULTURE MYCOBACTERIA Conc.on 05-24-2017 CULTURE MYCOBACTERIA Conc. Specimen Sour ce Comment:Body Fluid [facility] Patient name: BAUTISTA RUFFIN JigneshRGageN.: [id number] : 1960 Age: 57 Sex: M Ord. Physician: CHIVO PERRY Location: [address] [place] [address] Copy to: CHIVO PERRY DISCHARGED: 05/30/17Adm. Date: 05/19/17 MICROBIOLOGYORDER#: [id number] COLLECTED: 05/24/17 14:18SOURCE: Aspirate Right (Hip) RECEIVED: 05/25/17 17:51 OE C Bozena Mckee E N T S Sp ecimen Source Comment:Body FluidCULTURE MYCOBACTERIA Conc. FINAL 07/07/17 17:351Test performed at [facility] Microbiology Lab07/07/17No acid-fast bacilli isolated after 6 weeks incubation. Normal [facility] Comment on above: Performed By: #### H DORIS LACT3, BMP3 ####[id number] Ironon 05-24-2017 Saturation 7 % Low 15-50 [facility] Comment on above: Performed By: #### H EMOG, LACT3, BMP3 ####[address] [place] [address] Total Iron Binding Cap. 142 ug/dL Low 261-497 [facility] Comment on above: Performed By: #### H EMOG, LACT3, BMP3 ####[place] [address] [place] [address] Iron, Total <10 Low 49-181 [facility] Comment on above: Performed By: #### H EMOG, LACT3, BMP3 ####[address] [place] [address] STAIN ACID-FASTon 05-24-2017 STAIN ACID-FAST Specimen Source Comment:Body Fluid [facility] Patient name: BAUTISTA RUFFINR.N.: [id number] : 1960 Age: 57 Sex: M Ord. Physician: CHIVO PERRY Location: [address] [place] [address] Copy to: CHIVO PERRY Adm. Date: 05/19/17 MICROBIOLOGYORDER#: [id number] COLLECTED: 05/24/17 14:18SOURCE: Aspirate Right (Hip) RECEIVED: 05/25/17 17:51 OE C O M M E N T S Sp ecimen Source Comment:Body FluidSTAIN ACID-FAST FINAL 05/26/17 21:011No acid-fast bacilli seen in smear.-Method: Fluorescent Stain Normal [facility] Comment on above: Performed By: #### H EMOG, LACT3, BMP3 ####[place] [address] [place] [address] Vitamin B12on 05-24-2017 Cobalamins (Vitamin B12) 538 pg/mL Normal 239-931 [facility] Comment on above: Performed By: #### H EMOG, LACT3, BMP3 ####[address] [place] [address] Basic Metabolic Panelon 12-2 Anion gap 4 mmol/L Normal [facility] Comment on above: Performed By: #### H EMOG, LACT3, BMP3 ####[address] [place] [address] Calcium 7.6 mg/dL Low 8.4-10.2 [facility] Comment on above: Performed By: #### H EMOG, LACT3, BMP3 ####[address] [place] [address] CO2 24 mmol/L Normal 22-30 [facility] Comment on above: Performed By: #### H EMOBentley, LACT3, BMP3 ####[address] [place] [address] Glucose mass conc 112 mg/dL High 70-100 [facility] Comment on above: Performed By: #### H EMOBentley, LACT3, BMP3 ####[address] [place] [address] Urea nitrogen 9 mg/dL Normal 7-20 [facility] Comment on above: Performed By: #### H EMOG, LACT3, BMP3 ####[address] [place] [address] Creatinine 0.62 mg/dL Normal 0.52-1.25 [facility] Comment on above: Performed By: #### H EMOBentley, LACT3, BMP3 ####[address] [place] [address] eGFR (black) mL/min/{1.73_m2} Normal >60 [facility] Comment on above: Performed By: #### H EMOG, LACT3, BMP3 ####[address] [place] [address] eGFR (non-black) mL/min/{1.73_m2} Normal >60 [facility] Comment on above: Result Comment: Sour ce- MDRD equation with creatinine calibration to IDMS(NKDEP)eGFR not recommended for drug dose adjustment Performed By: #### H EMOG, LACT3, BMP3 ####[address] [place] [address] Chloride 115 mmol/L High 98-107 [facility] Comment on above: Performed By: #### H EMOG, LACT3, BMP3 ####[address] [place] [address] Potassium molar conc 3.1 mmol/L Low 3.5-5.1 [facility] Comment on above: Performed By: #### H EMOG, LACT3, BMP3 ####[address] [place] [address] Sodium 143 mmol/L Normal 137-145 [facility] Comment on above: Performed By: #### H EMOG, LACT3, BMP3 ####[address] [place] [address] CT Pelvis w/ Contrast (IV On ly)on 05-23-2017 CT Pelvis w/ Contrast (IV Only) Patient Name: BAUTISTA RUFFIN CT Exam Date/Time 05/23/2017 14:28:[address] Pelvis w/ Contrast (IV Only) Ordering Physician TRINA MAYER Accession Number [id number] CPT4 Codes Q9967 (), 65882 (CT Pelvis w/ Contrast (IV Only)) Reason [...] Transcribed Date and Time: 05/23/2017 3:48 Normal [facility] Hemogramon 05-23-2017 Erythrocyte distribution width Auto Ratio (RBC) 18.5 % High 11.5-14.5 [facility] Comment on above: Performed By: #### H EMOG, LACT3, BMP3 ####[address] [address] Erythrocytes (RBC) 3.28 10*6/uL Low 4.40-5.90 [facility] Comment on above: Performed By: #### H EMOG, LACT3, BMP3 ####[address] [address] Hematocrit (HCT) 27.1 % Low 40.0-52.0 [facility] Comment on above: Performed By: #### H EMOG, LACT3, BMP3 ####[address] [place] [address] Hemoglobin mass conc (Bld) 8.8 g/dL Low 13.0-18.0 [facility] Comment on above: Performed By: #### H EMOG, LACT3, BMP3 ####[address] [place] [address] MCH 26.8 pg Normal 26.0-34.0 [facility] Comment on above: Performed By: #### H EMOG, LACT3, BMP3 ####[address] [place] [address] MCHC mass conc (RBC) 32.5 % Normal 32.0-36.0 [facility] Comment on above: Performed By: #### H EMOG, LACT3, BMP3 ####[address] [place] [address] MCV 82.6 fL Normal 80.0-98.0 [facility] Comment on above: Performed By: #### H EMOG, LACT3, BMP3 ####[address] [place] [address] Platelet mean volume (PMV) 6.9 fL Low 7.4-10.4 [facility] Comment on above: Performed By: #### H EMOG, LACT3, BMP3 ####[address] [place] [address] Platelets 829 10*3/uL High 140-440 [facility] Comment on above: Performed By: #### H EMOG, LACT3, BMP3 ####[address] [place] [address] WBC (Leukocytes) 14.6 10*3/uL High 3.6-10.7 [facility] Comment on above: Performed By: #### H EMOG, LACT3, BMP3 ####[address] [place] [address] Basic Metabolic Panelon 12-2 Calcium 7.9 mg/dL Low 8.4-10.2 [facility] Comment on above: Performed By: #### H EMOG, BMP3 ####[address] [place] [address] Glucose mass conc 163 mg/dL High 70-100 [facility] Comment on above: Performed By: #### H EMOG, BMP3 ####[place] [address] [place] [address] Urea nitrogen 8 mg/dL Normal 7-20 [facility] Comment on above: Performed By: #### Xander GEORGE BMP3 ####[place] [address] [place] [address] Anion gap 6 mmol/L Normal [facility] Comment on above: Performed By: #### Xander GEORGE BMP3 ####[address] [place] [address] CO2 22 mmol/L Normal 22-30 [facility] Comment on above: Performed By: #### Xander GEORGE BMP3 ####[address] [place] [address] Creatinine 0.69 mg/dL Normal 0.52-1.25 [facility] Comment on above: Performed By: #### Xander GEORGE BMP3 ####[address] [place] [address] eGFR (black) mL/min/{1.73_m2} Normal >60 [facility] Comment on above: Performed By: #### Xander GEORGE BMP3 ####[address] [place] [address] eGFR (non-black) mL/min/{1.73_m2} Normal >60 [facility] Comment on above: Result Comment: Sour ce- MDRD equation with creatinine calibration to IDMS(NKDEP)eGFR not recommended for drug dose adjustment Performed By: #### Xander GEORGE BMP3 ####[address] [place] [address] Potassium molar conc 3.3 mmol/L Low 3.5-5.1 [facility] Comment on above: Performed By: #### Xander GEORGE BMP3 ####[address] [place] [address] Chloride 118 mmol/L High 98-107 [facility] Comment on above: Performed By: #### Xander GEORGE BMP3 ####[address] [place] [address] Sodium 145 mmol/L Normal 137-145 [facility] Comment on above: Performed By: #### H EMOG, BMP3 ####[address] [place] [address] C-Reactive Proteinon 017 C reactive protein (CRP) 51.9 mg/L High 0.0-6.0 [facility] Comment on above: Result Comment: . Performed By: #### H EMOG, LACT3, BMP3 ####[address] [place] [address] CR Hip w/ Pelvis 2 or 3 View s Lefton 05-22-2017 CR Hip w/ Pelvis 2 or 3 Views Left Patient Name: BAUTISTA RUFFIN Diagnostic Radiology Exam Date/Time 05/22/2017 19:52:21 EST Exam CR Hip w/ Pelvis 2 or 3 Views Left n Ordering Physician MD LEDESMA ADAM Accession Number [id number] CPT4 Codes 56027 () Reason For Exam pain Report LEFT [...] Transcribed Date and Time: 05/22/2017 7:32 Normal [facility] Hemogramon 05-22-2017 Erythrocyte distribution width Auto Ratio (RBC) 18.1 % High 11.5-14.5 [facility] Comment on above: Performed By: #### H DAWIT GEORGE3 ####[address] [place] [address] Erythrocytes (RBC) 3.53 10*6/uL Low 4.40-5.90 [facility] Comment on above: Performed By: #### H DAWTI GEORGE3 ####[address] [place] [address] Hematocrit (HCT) 29.1 % Low 40.0-52.0 [facility] Comment on above: Performed By: #### H DAWIT GEORGE3 ####[address] [place] [address] Hemoglobin mass conc (Bld) 9.6 g/dL Low 13.0-18.0 [facility] Comment on above: Performed By: #### DAWIT ALEXANDRA3 ####[address] [place] [address] MCH 27.2 pg Normal 26.0-34.0 [facility] Comment on above: Performed By: #### DAWIT ALEXANDRA3 ####[address] [place] [address] MCHC mass conc (RBC) 32.9 % Normal 32.0-36.0 [facility] Comment on above: Performed By: #### H DAWIT GEORGE3 ####[address] [place] [address] MCV 82.5 fL Normal 80.0-98.0 [facility] Comment on above: Performed By: #### DAWIT ALEXANDRA3 ####[address] [place] [address] Platelet mean volume (PMV) 7.1 fL Low 7.4-10.4 [facility] Comment on above: Performed By: #### DAWIT ALEXANDRA3 ####[address] [place] [address] Platelets 823 10*3/uL High 140-440 [facility] Comment on above: Result Comment: repe ated Performed By: #### H EMOBentley, BMP3 ####[address] [place] [address] WBC (Leukocytes) 16.9 10*3/uL High 3.6-10.7 [facility] Comment on above: Performed By: #### H EMOBentley BMP3 ####[address] [place] [address] Sed Rateon 05-22-2017 Sed Rate 64 mm/h High 0-10 [facility] Comment on above: Performed By: #### H DORIS LACT3, BMP3 ####[address] [place] [address] Basic Metabolic Panelon 04-29 Calcium 7.6 mg/dL Low 8.4-10.2 [facility] Comment on above: Performed By: #### ARINA WINN HEMOG ####[address] [place] [address] Glucose mass conc 140 mg/dL High 70-100 [facility] Comment on above: Performed By: #### ARINA WINN HEMOG ####[address] [place] [address] Urea nitrogen 6 mg/dL Low 7-20 [facility] Comment on above: Performed By: #### ARINA WINN HEMOG ####[address] [place] [address] Anion gap 6 mmol/L Normal [facility] Comment on above: Performed By: #### ARINA WINN HEMOG ####[address] [place] [address] CO2 20 mmol/L Low 22-30 [facility] Comment on above: Performed By: #### ARINA WINN, HEMOG ####[address] [place] [address] Creatinine 0.70 mg/dL Normal 0.52-1.25 [facility] Comment on above: Performed By: #### ARINA WINN HEMOG ####[place] [address] [place] [address] eGFR (black) mL/min/{1.73_m2} Normal >60 [facility] Comment on above: Performed By: #### ARINA WINN, HEMOG ####[place] [address] [place] [address] eGFR (non-black) mL/min/{1.73_m2} Normal >60 [facility] Comment on above: Result Comment: Sour ce- MDRD equation with creatinine calibration to IDMS(NKDEP)eGFR not recommended for drug dose adjustment Performed By: #### ARINA WINN, HEMOG ####[address] [place] [address] Potassium molar conc 3.5 mmol/L Normal 3.5-5.1 [facility] Comment on above: Performed By: #### ARINA WINN, HEMOG ####[address] [place] [address] Chloride 110 mmol/L High 98-107 [facility] Comment on above: Performed By: #### ARINA WINN, HEMOG ####[address] [place] [address] Sodium 137 mmol/L Normal 137-145 [facility] Comment on above: Performed By: #### ARINA WINN, HEMOG ####[address] [place] [address] CULTURE BLOODon 05-21-2017 CULTURE BLOOD Specimen Source Comment:Blood [facility] Patient name: BAUTISTA RUFFIN JigneshRGageN.: [id number] : 1960 Age: 57 Sex: M Ord. Physician: TRINA MAYER Location: [address] [place] [address] Copy to: TRINA MAYER Adm. Date: 05/19/17 MICROBIOLOGYORDER#: [id number] COLLECTED: 05/21/17 16:15SOURCE: Blood (Right -wrist) RECEIVED: 05/21/17 16:50 BUSTER Shoemaker N T S Sp ecimen Source Comment:BloodCULTURE BLOOD FINAL 05/26/17 17:0605/26/17No growth at 5 days. Normal [facility] Comment on above: Performed By: #### C /CANDE ####[address] [address] CULTURE BLOOD Specimen Source Comment:Blood [facility] Patient name: BAUTISTA RUFFINN.: [id number] : 1960 Age: 57 Sex: M Ord. Physician: TRINA MAYER Location: [address] [place] [address] Copy to: TRINA MAYER Adm. Date: 05/19/17 MICROBIOLOGYORDER#: [id number] COLLECTED: 05/21/17 15:00SOURCE: Blood (Left -antecub) RECEIVED: 05/21/17 15:36 BUSTER Mckee E N T S Sp ecimen Source Comment:BloodCULTURE BLOOD FINAL 05/26/17 17:No growth at 5 days. Normal [facility] Comment on above: Performed By: #### C /CANDE ####[address] [address] Hemogramon 05-21-2017 Erythrocyte distribution width Auto Ratio (RBC) 18.6 % High 11.5-14.5 [facility] Comment on above: Performed By: #### ARINA WINN HEMOG ####[address] [address] Erythrocytes (RBC) 3.22 10*6/uL Low 4.40-5.90 [facility] Comment on above: Performed By: #### ARINA WINN HEMOG ####[address] [place] [address] Hematocrit (HCT) 26.3 % Low 40.0-52.0 [facility] Comment on above: Performed By: #### ARINA WINN, HEMOG ####[address] [place] [address] Hemoglobin mass conc (Bld) 8.6 g/dL Low 13.0-18.0 [facility] Comment on above: Performed By: #### ARINA WINN, HEMOG ####[address] [place] [address] MCH 26.8 pg Normal 26.0-34.0 [facility] Comment on above: Performed By: #### ARINA WINN HEMOG ####[address] [place] [address] MCHC mass conc (RBC) 32.9 % Normal 32.0-36.0 [facility] Comment on above: Performed By: #### ARINA WINN HEMOG ####[address] [place] [address] MCV 81.6 fL Normal 80.0-98.0 [facility] Comment on above: Performed By: #### ARINA WINN HEMOG ####[address] [place] [address] Platelet mean volume (PMV) 7.0 fL Low 7.4-10.4 [facility] Comment on above: Performed By: #### ARINA WINN HEMOG ####[address] [place] [address] Platelets 736 10*3/uL High 140-440 [facility] Comment on above: Performed By: #### ARINA WINN, HEMOG ####[address] [place] [address] WBC (Leukocytes) 11.1 10*3/uL High 3.6-10.7 [facility] Comment on above: Performed By: #### ARINA WINN HEMOG ####[address] [place] [address] Vancomycin Troughon 05-21- 17 Vancomycin Trough 25.8 ug/mL High 5.0-10.0 [facility] Comment on above: Result Comment: . Performed By: #### B MP3ARINA, HEMOG ####[address] [place] [address] Basic Metabolic Panelon 12-2 Calcium 8.2 mg/dL Low 8.4-10.2 [facility] Comment on above: Performed By: #### H EMOG, LACT3, BMP3 ####[address] [place] [address] Glucose mass conc 92 mg/dL Normal 70-100 [facility] Comment on above: Performed By: #### H EMOG, LACT3, BMP3 ####[address] [place] [address] Urea nitrogen 8 mg/dL Normal 7-20 [facility] Comment on above: Performed By: #### H EMOG, LACT3, BMP3 ####[address] [place] [address] Anion gap 7 mmol/L Normal [facility] Comment on above: Performed By: #### H EMOG, LACT3, BMP3 ####[address] [place] [address] CO2 19 mmol/L Low 22-30 [facility] Comment on above: Performed By: #### H EMOG, LACT3, BMP3 ####[address] [place] [address] Creatinine 0.78 mg/dL Normal 0.52-1.25 [facility] Comment on above: Performed By: #### H EMOG, LACT3, BMP3 ####[address] [place] [address] eGFR (black) mL/min/{1.73_m2} Normal >60 [facility] Comment on above: Performed By: #### H EMOG, LACT3, BMP3 ####[address] [place] [address] eGFR (non-black) mL/min/{1.73_m2} Normal >60 [facility] Comment on above: Result Comment: Sour ce- MDRD equation with creatinine calibration to IDMS(NKDEP)eGFR not recommended for drug dose adjustment Performed By: #### H DORIS LACT3, BMP3 ####[address] [address] Potassium molar conc 3.6 mmol/L Normal 3.5-5.1 [facility] Comment on above: Performed By: #### H EMOBentley, LACT3, BMP3 ####[address] [place] [address] Chloride 113 mmol/L High 98-107 [facility] Comment on above: Performed By: #### H DORIS LACT3, BMP3 ####[address] [address] Sodium 139 mmol/L Normal 137-145 [facility] Comment on above: Performed By: #### H DORIS LACT3, BMP3 ####[address] [address] Hemogramon 05-20-2017 Erythrocyte distribution width Auto Ratio (RBC) 18.7 % High 11.5-14.5 [facility] Comment on above: Performed By: #### H DORIS, LACT3, BMP3 ####[address] [address] Erythrocytes (RBC) 3.38 10*6/uL Low 4.40-5.90 [facility] Comment on above: Performed By: #### H EMOBentley, LACT3, BMP3 ####[address] [place] [address] Hematocrit (HCT) 27.7 % Low 40.0-52.0 [facility] Comment on above: Performed By: #### H EMOBentley, LACT3, BMP3 ####[address] [address] Hemoglobin mass conc (Bld) 9.2 g/dL Low 13.0-18.0 [facility] Comment on above: Performed By: #### H EMOBentley, LACT3, BMP3 ####[address] [address] MCH 27.3 pg Normal 26.0-34.0 [facility] Comment on above: Performed By: #### H EMOG, LACT3, BMP3 ####[address] [address] MCHC mass conc (RBC) 33.3 % Normal 32.0-36.0 [facility] Comment on above: Performed By: #### H EMOBentley, LACT3, BMP3 ####[address] [place] [address] MCV 82.1 fL Normal 80.0-98.0 [facility] Comment on above: Performed By: #### H EMOBentley, LACT3, BMP3 ####[address] [address] Platelet mean volume (PMV) 7.0 fL Low 7.4-10.4 [facility] Comment on above: Performed By: #### H EMOBentley, LACT3, BMP3 ####[address] [address] Platelets 749 10*3/uL High 140-440 [facility] Comment on above: Performed By: #### H EMOBentley, LACT3, BMP3 ####[address] [address] WBC (Leukocytes) 15.6 10*3/uL High 3.6-10.7 [facility] Comment on above: Performed By: #### H EMOBentley, LACT3, BMP3 ####[address] [address] Lactic Acidon 05-20-2017 Lactate 0.6 mmol/L Low 0.7-2.0 [facility] Comment on above: Performed By: #### H EMOG, LACT3, BMP3 ####[address] [address] VANC TROUGHon 04-08-2017 VANC TROUGH 14.4 MCG/ML Low 15.0-20.0 [facility] Comment on above: Performed By: #### L 520.52978 ####[facility] [id number] [place], [place] [address]Np# [phone] BMPon 04-03-2017 Anion gap 9 mmol/L Normal 5-16 [facility] Comment on above: Performed By: #### L 500.67184, L500.46574, L520.14540 ####[facility] [id number] [place], [place] [address]Qc# [phone] BUN/Creatinine Ratio 23 mg/mg Normal 15-24 [facility] Comment on above: Performed By: #### L 500.91979, L500.82249, L520.80619 ####[facility] [id number] [place], [place] [address]Ie# [phone] Calcium 8.6 mg/dL Normal 8.5-10.1 [facility] Comment on above: Performed By: #### L 500.56056, L500.63497, L520.84558 ####[facility] [id number] [place], [place] [address]Nr# [phone] Chloride 103 mmol/L Normal 98-107 [facility] Comment on above: Performed By: #### L 500.58748, L500.41272, L520.18702 ####[facility] [id number] [place], [place] [address]Cf# [phone] CO2 26 mmol/L Normal 21-32 [facility] Comment on above: Performed By: #### L 500.18502, L500.73346, L520.45920 ####[facility] [id number] [place], [place] [address]Ct# [phone] Creatinine 1.370 mg/dL High 0.670-1.17 0 [facility] Comment on above: Result Comment: Noni ents receiving either N-Acetylcysteine (NAC) orMetamizole prior to venipuncture, may have falsely depressedresults. Performed By: #### L 500.92360, L500.11642, L520.07334 ####[facility] [id number] [place], [place] [address]At# [phone] Glucose mass conc 95 mg/dL Normal 70-100 [facility] Comment on above: Result Comment: 70-1 00-Normal Fasting; [phone] Fasting; greaterthan 126 on more than one result-Diabetes. ADA guidelines Performed By: #### L 500.40538, L500.06167, L520.59914 ####[facility] [id number] [place], [place] [address]Za# [phone] Potassium molar conc 4.5 mmol/L Normal 3.5-5.[address] [facility] Comment on above: Performed By: #### L 500.29112, L500.47840, L520.68151 ####[facility] [id number] [place], [place] [address]Ut# [phone] Sodium 138 mmol/L Normal 136-145 [facility] Comment on above: Performed By: #### L 500.92514, L500.75722, L520.94703 ####[facility] [id number] [place], [place] [address]Tx# [phone] Urea nitrogen 31 mg/dL High 7-26 [facility] Comment on above: Performed By: #### L 500.26690, L500.92051, L520.40831 ####[facility] [id number] [place], [place] [address]Qf# [phone] GFR ESTon 04-03-2017 IF AMER Greater than 60 Normal [facility] Comment on above: Performed By: #### L 500.29009, L500.79993, L520.81975 ####[facility] [id number] [place], [place] [address]Sb# [phone] IF non-AFR AMER 54 ML/MIN Normal [facility] Comment on above: Performed By: #### L 500.79524, L500.24721, L520.59744 ####[facility] [id number] [place], [place] [address]Jn# [phone] on 04-03-2017 Hematocrit (HCT) 32.7 % Low 41.0-53.0 [facility] Comment on above: Performed By: #### L 200.31552 ####[facility] [id number] [place], [place] [address]Xd# [phone] Hemoglobin mass conc (Bld) 10.3 g/dL Low 13.5-17.5 [facility] Comment on above: Performed By: #### L 200.68500 ####[facility] [id number] [place] [address]Wd# [phone] VANC TROUGHon 04-03-2017 VANC TROUGH 14.7 MCG/ML Low 15.0-20.0 [facility] Comment on above: Performed By: #### L 500.30169, L500.52997, L520.76016 ####[address] [address]Wl# [phone] on 03-29-2017 Hematocrit (HCT) 30.1 % Low 41.0-53.0 [facility] Comment on above: Performed By: #### L 200.26079 ####[address] [address]Vn# [phone] Hemoglobin mass conc (Bld) 9.4 g/dL Low 13.5-17.5 [facility] Comment on above: Performed By: #### L 200.28755 ####[facility] [id number] [place] [address]Cf# [phone] VANC TROUGHon 03-28-2017 VANC TROUGH 20.7 MCG/ML Critically high 15.0-20.0 [facility] Comment on above: Result Comment: Crit ical Result(s) Called at: 22:55:07 on 03/27/2017 by:Vanessa Bianchi to and read back by: Rica LR AT [facility] Performed By: #### L 520.91869 ####[facility] [id number] [place] [address]Mb# [phone] VANC TROUGHon 03-23-2017 VANC TROUGH 25.3 MCG/ML Critically high 15.0-20.0 [facility] Comment on above: Result Comment: Eric jarquin Result(s) Called at: 12:22:05 on 03/23/2017 by:Piedad Thomas to and read back by: BLANCHE HILLMAN RN Performed By: #### L 520.77679 ####[facility] [id number] [place], [place] [address]Iu# [phone] Influenza virus A and B and SARS-CoV-2 (COVID-19) Ag panel - Upper respiratory specim SARS-CoV-2 (COVID-19) RNA ZEKE+probe Ql (Resp) Work Phone: Vital Signs Date Time Vital Sign Value Performing Clinician Samir walker 11-05-2024 18:30-0400 Body temperature 98.1 [degF] [facility] 11-05-2024 18:30-0400 Diastolic blood pressure 87 mm[Hg] [facility] 11-05-2024 18:30-0400 Heart rate 85 /min [facility] 11-05-2024 18:30-0400 Respiratory rate 16 /min [facility] 11-05-2024 18:30-0400 SaO2% (BldA) [Mass fraction] 94 % [facility] 11-05-2024 18:30-0400 Systolic blood pressure 135 mm[Hg] [facility] 11-05-2024 01:09-0400 Body mass index (BMI) [Ratio] 24.8 kg/m2 [facility] 11-05-2024 01:09-0400 Body weight 76.3 kg [facility] 11-04-2024 12:22-0400 Body height 175.26 cm [facility] 11-03-2024 16:54-0400 Body temperature 97.8 [degF] [facility] 11-03-2024 16:54-0400 Diastolic blood pressure 85 mm[Hg] [facility] 11-03-2024 16:54-0400 Heart rate 77 /min [facility] 11-03-2024 16:54-0400 Respiratory rate 16 /min [facility] 11-03-2024 16:54-0400 SaO2% (BldA) [Mass fraction] 98 % [facility] 11-03-2024 16:54-0400 Systolic blood pressure 142 mm[Hg] [facility] 11-03-2024 11:28-0400 Body height 172.72 cm [facility] 11-03-2024 11:28-0400 Body mass index (BMI) [Ratio] 27.7 kg/m2 [facility] 11-03-2024 11:28-0400 Body weight 82.8 kg [facility] 11-01-2024 18:00-0400 Diastolic blood pressure 84 mm[Hg] [facility] 11-01-2024 18:00-0400 Heart rate 82 /min [facility] 11-01-2024 18:00-0400 Respiratory rate 16 /min [facility] 11-01-2024 18:00-0400 SaO2% (BldA) [Mass fraction] 96 % [facility] 11-01-2024 18:00-0400 Systolic blood pressure 132 mm[Hg] [facility] 11-01-2024 16:30-0400 Body temperature 98.3 [degF] [facility] 11-01-2024 14:11-0400 Body height 172.72 cm [facility] 11-01-2024 14:11-0400 Body mass index (BMI) [Ratio] 27.6 kg/m2 [facility] 11-01-2024 14:11-0400 Body weight 82.3 kg [facility] 09-12-2024 13:04-0400 Body temperature 97.8 [degF] [facility] 09-12-2024 13:04-0400 Diastolic blood pressure 85 mm[Hg] [facility] 09-12-2024 13:04-0400 Heart rate 75 /min [facility] 09-12-2024 13:04-0400 Respiratory rate 16 /min [facility] 09-12-2024 13:04-0400 SaO2% (BldA) [Mass fraction] 97 % [facility] 09-12-2024 13:04-0400 Systolic blood pressure 149 mm[Hg] [facility] 09-11-2024 15:37-0400 Body height 175.01 cm [facility] 09-11-2024 15:37-0400 Body mass index (BMI) [Ratio] 27.8 kg/m2 [facility] 09-11-2024 15:37-0400 Body weight 85.41 kg [facility] 07-14-2024 12:00-0500 Body temperature 97.6 [degF] [facility] 07-14-2024 12:00-0500 Diastolic blood pressure 86 mm[Hg] [facility] 07-14-2024 12:00-0500 Heart rate 82 /min [facility] 07-14-2024 12:00-0500 Respiratory rate 17 /min [facility] 07-14-2024 12:00-0500 SaO2% (BldA) [Mass fraction] 94 % [facility] 07-14-2024 12:00-0500 Systolic blood pressure 139 mm[Hg] [facility] 07-14-2024 07:06-0500 Body mass index (BMI) [Ratio] 28.3 kg/m2 [facility] 07-14-2024 07:06-0500 Body weight 87.2 kg [facility] 07-13-2024 07:00-0500 Diastolic blood pressure 101 mm[Hg] [facility] 07-13-2024 07:00-0500 Heart rate 83 /min [facility] 07-13-2024 07:00-0500 Respiratory rate 18 /min [facility] 07-13-2024 07:00-0500 SaO2% (BldA) [Mass fraction] 99 % [facility] 07-13-2024 07:00-0500 Systolic blood pressure 176 mm[Hg] [facility] 07-13-2024 06:40-0500 Body temperature 97.8 [degF] [facility] 07-13-2024 02:28-0500 Body mass index (BMI) [Ratio] 26.6 kg/m2 [facility] 07-13-2024 02:28-0500 Body weight 81.8 kg [facility] 06-19-2024 15:07-0500 Body temperature 98.3 [degF] [facility] 06-19-2024 15:07-0500 Diastolic blood pressure 92 mm[Hg] [facility] 06-19-2024 15:07-0500 Heart rate 88 /min [facility] 06-19-2024 15:07-0500 Respiratory rate 18 /min [facility] 06-19-2024 15:07-0500 SaO2% (BldA) [Mass fraction] 98 % [facility] 06-19-2024 15:07-0500 Systolic blood pressure 138 mm[Hg] [facility] 06-19-2024 05:37-0500 Body mass index (BMI) [Ratio] 25.4 kg/m2 [facility] 06-19-2024 05:37-0500 Body weight 78.1 kg [facility] 06-14-2024 21:55-0500 Body temperature 98.1 [degF] [facility] 06-14-2024 21:55-0500 Diastolic blood pressure 76 mm[Hg] [facility] 06-14-2024 21:55-0500 Heart rate 90 /min [facility] 06-14-2024 21:55-0500 Respiratory rate 16 /min [facility] 06-14-2024 21:55-0500 SaO2% (BldA) [Mass fraction] 98 % [facility] 06-14-2024 21:55-0500 Systolic blood pressure 155 mm[Hg] [facility] 06-12-2024 14:34-0500 Body weight 95.5 kg [facility] 06-11-2024 23:14-0500 Body mass index (BMI) [Ratio] 31.1 kg/m2 [facility] 10-09-2023 05:00-0400 Body temperature 97.5 [degF] [facility] 10-09-2023 05:00-0400 Diastolic blood pressure 91 mm[Hg] 10-09-2023 05:00-0400 Heart rate 95 /min [facility] 10-09-2023 05:00-0400 Respiratory rate 16 /min [facility] 10-09-2023 05:00-0400 SaO2% (BldA) [Mass fraction] 97 % 10-09-2023 05:00-0400 Systolic blood pressure 128 mm[Hg] 10-09-2023 01:12-0400 Body height 175.26 cm [facility] 06-07-2022 00:00-0500 Diastolic blood pressure 78 mm[Hg] Work Phone: 06-07-2022 00:00-0500 Heart rate 81 /min [facility] Work Phone: 06-07-2022 00:00-0500 Respiratory rate 14 /min [facility] Work Phone: 06-07-2022 00:00-0500 SaO2% (BldA) [Mass fraction] 97 % Work Phone: 06-07-2022 00:00-0500 Systolic blood pressure 119 mm[Hg] Work Phone: 06-06-2022 16:16-0500 Body height 170.18 cm [facility] Work Phone: 06-06-2022 16:16-0500 Body mass index (BMI) [Ratio] 26.6 kg/m2 Work Phone: 06-06-2022 16:16-0500 Body temperature 97.5 [degF] [facility] Work Phone: 06-06-2022 16:16-0500 Body weight 77.3 kg [facility] Work Phone: 05-22-2022 21:09-0500 Diastolic blood pressure 93 mm[Hg] Work Phone: 05-22-2022 21:09-0500 Heart rate 121 /min [facility] Work Phone: 05-22-2022 21:09-0500 Respiratory rate 30 /min [facility] Work Phone: 05-22-2022 21:09-0500 SaO2% (BldA) [Mass fraction] 96 % Work Phone: 05-22-2022 21:09-0500 Systolic blood pressure 143 mm[Hg] Work Phone: 05-22-2022 20:08-0500 Body temperature 97.6 [degF] [facility] Work Phone: 05-22-2022 16:40-0500 Body height 175.26 cm [facility] Work Phone: 05-22-2022 16:40-0500 Body mass index (BMI) [Ratio] 26.2 kg/m2 Work Phone: 05-22-2022 16:40-0500 Body weight 80.5 kg [facility] Work Phone: 09-09-2021 17:43-0400 Diastolic blood pressure 100 mm[Hg] [facility] Work Phone: 09-09-2021 17:43-0400 Heart rate 70 /min [facility] Work Phone: 09-09-2021 17:43-0400 Respiratory rate 16 /min [facility] Work Phone: 09-09-2021 17:43-0400 SaO2% (BldA) [Mass fraction] 97 % [facility] Work Phone: 09-09-2021 17:43-0400 Systolic blood pressure 122 mm[Hg] [facility] Work Phone: 09-09-2021 15:23-0400 Body temperature 97.6 [degF] [facility] Work Phone: 09-09-2021 15:20-0400 Body height 172.72 cm [facility] Work Phone: 09-09-2021 15:20-0400 Body mass index (BMI) [Ratio] 26.6 kg/m2 [facility] Work Phone: 09-09-2021 15:20-0400 Body weight 79.6 kg [facility] Work Phone: 06-29-2021 10:00-0500 Heart rate 112 /min [facility] Work Phone: 06-29-2021 08:38-0500 Body temperature 98 [degF] [facility] Work Phone: 06-29-2021 08:38-0500 Diastolic blood pressure 93 mm[Hg] [facility] Work Phone: 06-29-2021 08:38-0500 Respiratory rate 16 /min [facility] Work Phone: 06-29-2021 08:38-0500 SaO2% (BldA) [Mass fraction] 98 % [facility] Work Phone: 06-29-2021 08:38-0500 Systolic blood pressure 122 mm[Hg] [facility] Work Phone: 06-29-2021 05:00-0500 Body weight 74 kg [facility] Work Phone: 06-28-2021 02:52-0500 Body mass index (BMI) [Ratio] 23.9 kg/m2 [facility] Work Phone: Encounters Encounter Date Encounter Type Care Provider Facility Start: 11-05-2024 Non-patient / Non-visit Dr. Adan cohen [facility] Work Phone: Start: 11-04-2024 ambulatory Adan Schneider Facility:[facility] Start: 11-04-2024 End: 11-05-2024 Evaluation and management of inpatient Dr. Adan Schneider DO [facility] Work Phone: Start: 11-04-2024 Non-patient / Non-visit Dr. Adan cohen [facility] Work Phone: Start: 11-03-2024 Non-patient / Non-visit Dr. Milady Tilley DO [facility] Work Phone: Start: 11-03-2024 ambulatory Milady Tilley Facility:[facility] Start: 11-03-2024 Evaluation and [facility] Work Phone: Start: 11-03-2024 observation encounter [facility] Work Phone: Start: 11-01-2024 End: 11-01-2024 [facility] Start: 09-11-2024 End: 09-12-2024 [facility] Start: 07-14-2024 End: 07-14-2024 Emergency department patient visit Dr. Rico Moore DO -Emergency Department Work Phone: Start: 07-13-2024 End: 07-13-2024 Emergency department patient visit Richie Borden DO -Emergency Department Work Phone: Start: 06-19-2024 Non-patient / Non-visit Dr. Darian Arceo MD [facility] Work Phone: Start: 06-18-2024 Non-patient / Non-visit Dr. Darian Arceo MD [facility] Work Phone: Start: 06-17-2024 Non-patient / Non-visit Dr. Darian Arceo MD [facility] Work Phone: Start: 06-16-2024 ambulatory Ronak Rueda ty:[facility] Start: 06-16-2024 End: 06-19-2024 Evaluation and management of inpatient Dr. Darian Arceo MD -[facility] Work Phone: Start: 06-14-2024 Non-patient / Non-visit Dr. Darian Arceo MD [facility] Work Phone: Start: 06-13-2024 Non-patient / Non-visit Dr. Darian Arceo MD [facility] Work Phone: Start: 06-12-2024 Non-patient / Non-visit Dr. Darian Arceo MD [facility] Work Phone: Start: 06-11-2024 ambulatory Ronak Rueda ty:[facility] Start: 06-11-2024 End: 06-14-2024 Evaluation and management of inpatient Dr. Darian Arceo MD [facility] Work Phone: Start: 05-06-2024 End: 05-10-2024 Telephone encounter Hetal Gallegos MD Work Phone: [facility] Start: 05-03-2024 Emergency department patient visit JAMEY HUYNH Facility:[facility] Start: 05-03-2024 End: 05-03-2024 Emergency department patient visit Hema ChamberlainIvis Facility: Start: 10-09-2023 End: 10-09-2023 Emergency department patient visit -Emergency Department Work Phone: Start: 06-06-2022 End: 06-07-2022 Emergency department patient visit -Emergency Department Start: 05-22-2022 End: 05-22-2022 Emergency department patient visit -Emergency Department Start: 09-09-2021 End: 09-09-2021 Emergency department patient visit [facility] Start: 06-29-2021 Non-patient / Non-visit [facility] Start: 06-29-2021 Non-patient / Non-visit [facility] Start: 06-28-2021 Non-patient / Non-visit [facility] Start: 06-28-2021 End: 06-29-2021 Evaluation and management of inpatient [facility]-Progressive Care Unit Start: 05-19-2017 Evaluation and management of inpatient UNKNOWN PROVIDER [facility] Start: 04-08-2017 Ambulatory [facility] Start: 04-03-2017 [facility] Start: 03-29-2017 [facility] Start: 03-27-2017 [facility] Start: 03-23-2017 [facility] Procedures Date Procedure Procedure Detail Performing Clinician Start: 11-04-2024 Estimated creatinine clearance [facility] Start: 11-04-2024 Serum inorganic phos phate measurement [facility] Start: 11-03-2024 Plain chest X-ray [facility] Start: 11-03-2024 Estimated creatinine clearance [facility] Start: 11-03-2024 Computed tomography of abdomen and pelvis with intravenous contrast [facility] Start: 11-01-2024 Urnls dip stick/tabl et reagent auto microscopy [facility] Start: 11-01-2024 [facility] Start: 09-11-2024 Urnls dip stick/tabl et reagent auto microscopy [facility] Start: 09-11-2024 CT of pelvis with contrast [facility] Start: 09-11-2024 Estimated creatinine clearance [facility] Start: 09-11-2024 [facility] Start: 09-11-2024 Gram stain microscopy [facility] Start: 09-11-2024 End: 09-11-2024 Microbial culture, routine [facility] Start: 09-11-[facility] Start: 07-14-2024 Urnls dip stick/tabl et reagent auto microscopy [facility] Start: 07-14-2024 Estimated creatinine clearance [facility] Start: 07-14-2024 Measurement of renal function [facility] Comment on above: GFR Calc Start: 07-14-2024 Plain chest X-ray [facility] Start: 07-13-2024 SARS-CoV-2, Influenz a & RSV (PCR) [facility] Start: 07-13-2024 CT angiography of ch est with contrast [facility] Start: 07-13-2024 Plain chest X-ray [facility] Start: 07-13-2024 D-dimer assay, quantitative [facility] Comment on above: D-Dimer ELEVATED (>0 .49): Additional studies and clinicalassessments are indicated to conclude diagnosis of:Deep Vein Thrombosis (DVT) or Pulmonary Embolism (PE)CRITICAL VALUE CALLED TO [facility]I [facility]07/13/24 0417 Graham Osorio.RESULTS READ BACK BY SAME. Start: 07-13-2024 Estimated creatinine clearance [facility] Start: 07-13-2024 Measurement of renal function [facility] Comment on above: GFR Calc Start: 06-16-2024 Plain chest X-ray [facility] Start: 06-16-2024 CT of head without contrast [facility] Start: 06-16-[facility]24 [facility] Start: 06-16-[facility] Start: 06-11-2024 [facility] Start: 06-11-2024 Plain chest X-ray [facility] Start: 06-11-2024 Plain x-ray of pelvi [facility] and lower extremity [facility] Start: 06-11-2024 [facility] Start: 06-11-2024 Legionella pneumophi la antigen assay [facility] Start: 06-11-2024 SARS-CoV-2, Influenz a & RSV (PCR) [facility] Start: 06-11-2024 Streptococcus pneumo niae antigen assay [facility] Start: 06-11-2024 [facility] Start: 10-09-2023 Plain chest X-ray Start: 06-06-2022 Plain chest X-ray Start: 05-22-2022 CT of abdomen and pe lvis without contrast Start: 05-22-2022 Plain chest X-ray Start: 06-28-2021 History of placement of stent for coronary artery disease History of coronary artery stent placement Dr. Darian Arceo MD Comment on above: FBV-RHE-Duhr LAD w/ 3.0 a 18 mm Avery Montelongo MR Stent 06/28/21 Start: 06-28-2021 [facility] SARS-CoV-2 & FLU Ant igen (Rapid) Plan of Treatment Date Care Activity Detail Author Start: 05-03-2027 Diabetes Screening Diabetes Screenin g [facility] Start: 11-05-2024 Patient discharge [facility] Start: 11-05-2024 Wound care [facility] Start: 11-04-2024 Admission procedure [facility] Start: 11-03-2024 End: 11-03-2024 Consultation for treatment Start: 11-03-2024 Following clinical pathway protocol Start: 11-03-2024 Assessment of risk o f venous thromboembolism Start: 11-03-2024 Consultation [facility] Start: 11-03-2024 Inhalation therapy procedure Start: 11-03-2024 Insertion of cathete r into peripheral vein Start: 11-03-2024 Measuring intake and output Start: 11-03-2024 Oxygen therapy Start: 11-03-2024 Patient referral to dietitian Start: 11-03-2024 Providing care accor ding to standard Start: 11-03-2024 Provision of activit y privileges Start: 11-03-2024 Referral to occupati onal therapist Start: 11-03-2024 Referral to service [facility] Start: 11-03-2024 [facility] Start: 11-03-2024 Verification routine [facility] Start: 11-03-2024 Hospital admission, emergency, from emergency room, medical nature Start: 11-03-2024 Admission procedure [facility] Start: 11-03-2024 [facility] Start: 11-03-2024 Patient referral to dietitian Start: 11-01-2024 [facility] Start: 11-01-2024 [facility] Start: 11-01-2024 Bacteria identified in Urine by Culture Urine Culture Start: 11-01-2024 Urine culture [facility] Start: 09-11-2024 End: 09-11-2024 Start: 09-11-2024 Bacteria identified in Blood by Culture Blood Culture Start: 09-11-2024 Microbial culture, routine [facility] Start: 09-11-2024 Microscopic observat ion [Identifier] in Unspecified specimen by Gram stain Start: 09-11-2024 Urine culture Urine [facility] Start: 07-14-2024 [facility] Start: 07-13-2024 [facility] Start: 06-19-2024 Patient discharge [facility] Start: 06-18-2024 Referral to service [facility] Start: 06-18-2024 Wound care [facility] Start: 06-17-2024 Consultation for treatment Start: 06-16-2024 Following clinical pathway protocol Start: 06-16-2024 Assessment of risk o f venous thromboembolism Start: 06-16-2024 Incentive spirometry [facility] Start: 06-16-2024 Insertion of cathete r into peripheral vein Start: 06-16-2024 Measuring intake and output Start: 06-16-2024 Providing care accor ding to standard Start: 06-16-2024 Referral to occupati onal therapist Start: 06-16-2024 Referral to service [facility] Start: 06-16-2024 Tobacco use cessatio n education Start: 06-16-2024 [facility] Start: 06-16-2024 Admission procedure [facility] Start: 06-16-2024 Patient referral to dietitian Start: 06-14-2024 Referral to service [facility] Start: 06-14-2024 Consultation [facility] Start: 06-14-2024 Patient discharge [facility] Start: 06-13-2024 Care planning and pr oblem solving actions Start: 06-12-2024 Wound care [facility] Start: 06-12-2024 Referral to service [facility] Start: 06-12-2024 Referral to occupati onal therapist Start: 06-11-2024 Consultation for treatment Start: 06-11-2024 [facility] Start: 06-11-2024 Following clinical pathway protocol Start: 06-11-2024 Admission procedure [facility] Start: 06-11-2024 Patient referral to dietitian Start: 06-03-2024 End: 06-03-2024 Patient encounter procedure 06/03/2024 1:30 PM EST Office Visit [facility] [address] [place] [address] Hetal Gallegos MD [address] [address] er f/u R hip/pt will call to get referral [facility] Comment on above: er f/u R hip/pt will call to get referral Start: 01-28-2024 Covid-19 Vaccine ( season) Covid-19 Vaccine ( season) [facility] Start: 01-28-2024 Influenza vaccination Influenz a Vaccine (#1) [facility] Start: 10-09-2023 [facility] Start: 10-09-2023 [facility] Start: 06-06-2022 [facility] Work Phone: Start: 05-22-2022 [facility] Work Phone: Start: 2021 RSV Vaccine (1 - Ris k 60-74 years 1-dose series) RSV Vaccine (1 - Risk 60-74 years 1-dose series) [facility] Start: 02-29-2016 Prostate specific an tigen measurement Prostate Cancer Screening Discussion [facility] Start: 2011 Shingrix Vaccine (1 of 2) Blanco grix Vaccine (1 of 2) [facility] Start: 2006 Screening for malign ant neoplasm of colon [facility] Start: 02-29-1996 Lipid panel Lipid Screening [facility] Start: 02-29-1980 Urine microalbumin profile DTaP,Tdap,Td Vaccine (1 - Tdap) [facility] Start: 1979 Anxiety Screening Anxiety Screening [facility] Start: 1979 Depression Screening Depression Scre ening [facility] Start: 1979 Hepatitis C screening Hepatitis C Sc reening [facility] Start: 1979 HIV screening HIV Screening [facility] Bacteria identified in Urine by Culture Urine Culture Work Phone: Patient Education [facility] Work Phone: Patient referral [facility] Work Phone: Immunizations Immunization Date Immunization Notes Care Provider Darryl babin 03-30-2023 influenza virus vaccine, unspecified formulation Hetal Gallegos MD Work Phone: [facility] 03-03-2021 Covid (Pfizer) [facility] 03-03-2021 Influenza virus vaccine [facility] 07-24-2020 Covid (Pfizer) [facility] 07-07-2020 Covid (Pfizer) [facility] 02-26-2018 Influenza virus vaccine [facility] 02-27-2017 Influenza virus vaccine [facility] 02-23-2016 Influenza virus vaccine [facility] 03-17-2015 influenza, injectabl e, quadrivalent, preservative free 03-17-2015 influenza, seasonal, injectable [facility] Work Phone: 04-29-2013 Influenza virus vaccine [facility] 2012 Pneumococcal Vaccine [facility] Work Phone: 2012 pneumococcal vaccine , unspecified formulation [facility] Payers Date Payer Category Payer Medicare [id number] 2024 Self-pay [id number] 2024 Unknown [id number] 2016 Medicare [id number] 2015 Unknown [id number] Medicare [id number] Private Health Insurance [facility] [id number] Unknown Unknown [id number] 2.16.8 [id number] Unknown [id number] 2.16.8 40.1.353662.3.579.2.462 Unknown [id number] 2.16.8 40.1.306403.3.579.2.462 Unknown [id number] 2.16.8 40.1.706620.3.579.2.462 Unknown [id number] 2.16.8 40.1.617238.3.579.2.462 Unknown [id number] 2.16.8 40.1.068708.3.579.2.462 Unknown [id number] 2.16.8 40.1.294652.3.579.2.462 Unknown [id number] 2.16.8 40.1.381807.3.579.2.462 Unknown [id number] 2.16.8 40.1.682447.3.579.2.462 Unknown [id number] 2.16.8 40.1.877447.3.579.2.462 Unknown [id number] 2.16.8 40.1.939026.3.579.2.462 Unknown [id number] 2.16.8 40.1.008483.3.579.2.462 Unknown [id number] 2.16.8 40.1.508277.3.579.2.462 Unknown [id number] 2.16.8 40.1.917317.3.579.2.462 Unknown [id number] 2.16.8 40.1.657755.3.579.2.462 Unknown [id number] 2.16.8 40.1.926766.3.579.2.462 Unknown [id number] 2.16.8 40.1.495161.3.579.2.462 Unknown [id number] 2.16.8 40.1.242710.3.579.2.462 Unknown [id number] 2.16.8 40.1.788636.3.579.2.462 Social History Date Type Detail Facility Start: 09-09-2021 End: 10-09-2023 Tobacco smoking status IDIS Unknown if ever smoked Start: 06-27-2021 Heavy [facility] Start: 01-19-2019 None [facility] Start: 01-19-2019 Spouse/ Signif icant Other Start: 06-27-2021 Cigarettes [facility] Start: 1960 Sex Assigned At Male [facility] Start: 01-21-2016 Tobacco smoking stat us IDIS Smokes tobacco daily [facility] Start: 05-03-2024 Alcoholic beverage intake Current non-drinker of alcohol (finding) [facility] Start: 05-03-2024 End: 05-04-2024 History of Social function [facility] Start: 05-03-2024 End: 05-04-2024 Tobacco use panel [facility] National Score (1-100), lower number is lower risk 80 [facility] Start: 1960 Sex assigned at Not on file [facility] Start: 09-11-2024 End: 11-04-2024 Tobacco smoking status NHIS Ex-smoker (finding) Start: 09-12-2024 Sex Male (finding) Medical Equipment Procedure Code Equipment Code Equipment Origin al Text Equipment Identifier Dates ([id number]) Drug-eluting coronary artery stent, bioabsorbable-polyme r-coated ([id number] FDA Start: 06-29-2021 Goals Date Patient Goal Desired Activity /State Functional Status Date Assessment Result Facility 11-05-2024 Functional status Bedrest [facility] Work Phone: 06-19-2024 Functional status Bedrest [facility] Work Phone: 06-14-2024 Functional status Bedrest [facility] Work Phone: 06-29-2021 Functional status Activity Abili ty With Assist of 2;Bedrest Work Phone: Mental Status Date Assessment Result Facility 11-05-2024 Cognitive function Voice/Name [facility] Work Phone: 11-03-2024 Cognitive function Level Of Cons ciousness Awake;Alert;Appropriate;Follow s Commands Work Phone: 07-14-2024 Cognitive function Level Of Cons ciousness Awake;Alert;Appropriate;Follow s Commands Work Phone: 07-13-2024 Cognitive function Voice/Name [facility] Work Phone: 06-19-2024 Cognitive function Voice/Name [facility] Work Phone: 06-14-2024 Cognitive function Voice/Name [facility] Work Phone: 10-09-2023 Cognitive function Level Of Cons ciousness Awake;Alert;Appropriate Work Phone: 06-06-2022 Cognitive function Awake;Alert;Disoriente d Work Phone: 06-29-2021 Cognitive function Voice/Name [facility] Work Phone: 06-28-2021 Cognitive function Patient Orien tation Person;Place;Time Work Phone: Clinical Notes 05-06-2024 to 11-05-2024 Note Date & Type Note Facility 11-05-2024 Discharge summary Note Date/Time November 05, 2024 3:19pm [facility] Medical Records Department [address] [place] [address] Discharge Summary 11/05/24 1514 MR#: [id number] Acct: [id number] Name: BAUTISTA RUFFIN Rep #:[id number] : 1960 64 From: Adan Schneider DO PCP: [facility] Status:ADM IN Location: [facility] [id number] Providers Date of Admission: 11/04/24 Primary Care Physician: [facility] Consultations 11/03/24 17:38 Consult: Infectious Disease Routine Consulting Provider: Maulik Jenkins Reason for Consult: Complicated UTI EMERGENT Consult: No MD Notified: Yes Date Notified: 11/04/24 Time Notified: 07:42 Method of Notification: Text Consult: Onc/Wound/soubrette Routine Comment: 11/03/24 18:25 Consult: Onc/Wound/soubrette Routine Comment: Reason For Visit: COMPLICATED PSEUDOMONAS [...] home health care will not be available [id number] to be able to help with that. [...] Attending Provider: Adan Schneider Primary Care Provider: [facility] Consulting Providers: Milady Tilley; Maulik Jenkins Discharge [...] Self Care Charges/Coding Visit Charges Inpatient E&M: 18164 Disch Hosp >30min 11/05/24 1519 <Electronically signed by Adan Schneider DO> Cosigner Signature (if applicable): CC: Dr. Adan Schneider DO; [facility]~ Signed Work Phone: 1(735) 444-211806-10-2025 Progress note Author Adan Schneider Note Date/Time November 05, 2024 2:23 pm [facility] Medical [facility] Department [address] [place] [address] Progress Note - Hospitalist 11/05/24 0746 MR#: [id number] Acct: [id number] Name: BAUTISTA RUFFIN Rep #:[id number] : 1960 64 From: Adan Schneider DO [facility] Status:ADM IN Location: [facility] JA900-1 Reason for Visit Reason for Visit: Diagnoses [...] a SNF. Charges/Coding Visit Charges Inpatient E&M: 99014 Subs Hosp L1 11/05/24 1423 <Electronically signed by Adan Schneider DO> Cosigner Signature (if applicable): CC: ~ Signed Work Phone: 1(827) 966-383306-10-2025 Discharge summary [facility] Medical Records Department [address] [place] [address] Discharge Summary 11/05/24 1514 MR#: [id number] Acct: [id number] Name: BAUTISTA RUFFIN Rep #:[id number] : 1960 64 From: Adan Schneider DO PCP: [facility] Status:ADM IN Location: [facility] WL203-5 Providers Date of Admission: 11/04/24 Primary Care Physician: [facility] Consultations 11/03/24 17:38 Consult: Infectious Disease Routine Consulting Provider: Maulik Jenkins Reason for Consult: Complicated UTI EMERGENT Consult: No MD Notified: Yes Date Notified: 11/04/24 Time Notified: 07:42 Method of Notification: Text Consult: Onc/Wound/soubrette Routine Comment: 11/03/24 18:25 Consult: Onc/Wound/soubrette Routine Comment: Reason For Visit: COMPLICATED PSEUDOMONAS [...] home health care will not be available [id number] to be able to help with that. [...] Attending Provider: Adan Schneider Primary Care Provider: [facility] Consulting Providers: Milady Tilley; Maulik Jenkins Discharge [...] Self Care Charges/Coding Visit Charges Inpatient E&M: 77963 Disch Hosp >30min 11/05/24 1519 Cosigner Signature (if applicable): CC: Dr. Adan [facility] DO; [facility]~ Signed 06-10-2025 [facility]-2025 Progress note [facility] Medical Records Department [address] [place] [address] Progress Note - Hospitalist 11/05/24 0746 MR#: [id number] Acct: [id number] Name: BAUTISTA RUFFIN Rep #:[id number] : 1960 64 From: Adan Schneider DO [facility] Status:ADM IN Location: [facility] [id number] Reason for Visit Reason for Visit: Diagnoses [...] a SNF. Charges/Coding Visit Charges Inpatient E&M: 53683 Subs Hosp L1 11/05/24 1423 Cosigner Signature (if applicable): CC: ~ Signed 06-09-2025 Evaluation note* Diagnosis Onset Date Resolution Status [...] 5:06pm Paraplegia chronic November 04, 2024 5:06pm Work Phone: 1(974) 370-700806-09-2025 Consult note Author Maulik Jenkins Note Date/Time November 04, 2024 3:10p [facility] Medical [facility] [address] [place] [address] 11434 Consultation - Infectious Dx 11/04/24 1508 MR#: [id number] Acct: [id number] Name: BAUTISTA RUFFIN Rep #:[id number] : 1960 64 From: Maulik adams MD PCP: [facility] Status:ADM [facility]GIO [facility] Assessment & Plan Assessment/Plan (1) Acute UTI: PLAN: Picc planned. Ucx with PsA. Will write for 5 more days cefepime. Feeling better. will follow, thank you, d/w case monitor (2) Chronic suprapubic catheter: (3) Paraplegia: HPI [...] performed and neg except as noted above. [facility] Medical History Sacral decubitus ulcer, stage III Atherosclerotic heart disease of chilkoot coronary artery without angina pectoris Depression Chronic [...] % (Auto) 59.7, Lymph % (Auto) 25.3, [place] % (Auto) 11.7 H, Eos % (Auto) [...] Jenkins MD> Cosigner Signature (if applicable): CC: [facility]~ Signed Work Phone: 1(261) 622-165206-09-2025 Progress note Author Adan Schneider Note Date/Time November 04, 2024 1:34p m [facility] Medical Records Department [address] [place] [address] Progress Note - Hospitalist 11/04/24 1324 MR#: [id number] Acct: [id number] Name: BAUTISTA RUFFIN Rep #:[id number] : 1960 64 From: Adan Schneider DO PCP: [facility] Status:ADM SERGIO Location: [place] [address] Reason for Visit Reason for Visit: Diagnoses [...] % (Auto) 59.7, Lymph % (Auto) 25.3, [place] % (Auto) 11.7 H, Eos % (Auto) [...] lower chance of developing HCC. Reading Location: [facility] Chest X-Ray 11/03/24 14:35 IMPRESSION: No acute process detected. Reading Location: [facility] Physical Exam Const alert and no apparent [...] VTE prophylaixs:LMWH Charges/Coding Visit Charges Inpatient E&M: 45236 Subs Hosp L2 11/04/24 1334 <Electronically signed by Adan Schneider DO> Cosigner Signature (if applicable): CC: ~ Signed Work Phone: 1(767) 523-309706-09-2025 Consult note [facility] Medical Records Department [address] [place] [address] Consultation - Infectious Dx 11/04/24 1508 MR#: [id number] Acct: [id number] Name: BAUTISTA RUFFIN Rep #:[id number] : 1960 64 From: Maulik adams MD [facility]:ADM SERGIO Location: [facility] HY267-0 Assessment & Plan Assessment/Plan (1) Acute UTI: PLAN: Picc planned. Ucx with PsA. Will write for 5 more days cefepime. Feeling better. will follow, thank you, d/w case monitor (2) Chronic suprapubic catheter: (3) Paraplegia: HPI Consult Data Date of Consult: 11/04/24 HPI Narrative Reason for Consultation: uti HPI Narrative: BAUTISTA RUFFIN, is a 64 M with paraplegia, suprapubic catheter, presented with 2- 3 days fatigue, notfeeling well, nausea. No fever, no abd pain. Came to ED, admitted on cefepime, feeling better today. Full ROS performed and neg except as noted above. [facility] Medical History Sacral decubitus ulcer, stage III Atherosclerotic heart disease of chilkoot coronary artery without angina pectoris Depression Chronic [...] % (Auto) 59.7, Lymph % (Auto) 25.3, [place] % (Auto) 11.7 H, Eos % (Auto) [...] 11/04/24 1510 Cosigner Signature (if applicable): CC: [facility]~ Signed 06-09-2025 Progress note [facility] Medical Records Department [address] [place] [address] Progress Note - Hospitalist 11/04/24 1324 MR#: [id number] Acct: [id number] Name: BAUTISTA RUFFIN Rep #:[id number] : 1960 64 From: Adan Schneider DO [facility] Status:ADM SERGIO Location: [place] [address] Reason for Visit Reason for Visit: Diagnoses [...] % (Auto) 59.7, Lymph % (Auto) 25.3, [place] % (Auto) 11.7 H, Eos % (Auto) [...] lower chance of developing HCC. Reading Location: [facility] Chest X-Ray 11/03/24 14:35 IMPRESSION: No acute process detected. Reading Location: [facility] Physical Exam Const alert and no apparent [...] VTE prophylaixs:LMWH Charges/Coding Visit Charges Inpatient E&M: 16539 Subs Hosp L2 11/04/24 3706 Cosigner Signature (if applicable): CC: ~ Signed 06-08-2025 History and physical note Author Milady Tilley Note Date/Time November 03, 2024 4:56p [facility] Medical Records Department [address] [place] [address] H&P Exam - Hospitalist 11/03/24 1621 MR#: [id number] Acct: [id number] Name: BAUTISTA RUFFIN Rep #:[id number] : 1960 64 From: Milady Tilley DO [facility] Status:ADM SERGIO Location: [place] [id number] HPI - General General Date of Admission: 11/03/24 Date of Service: 11/03/24 Chief Complaint: Nausea/generalized weakness HPI Narrative BAUTISTA RUFFIN, is a 64 M who presented to the emergency department at with nausea and generalized weakness slightly. Patient [...] likely discharge tomorrow after infectious disease consultation. [facility] Medical History Sacral decubitus ulcer, stage III Atherosclerotic heart disease of chilkoot coronary artery without angina pectoris Depression Chronic [...] % (Auto) 69.4, Lymph % (Auto) 22.5, [place] % (Auto) 6.7, Eos % (Auto) 0.9, [...] lower chance of developing HCC. [facility] X-Ray 11/03/24 14:35 IMPRESSION: No acute process detected. Reading [facility] Assessment & Plan Assessment/Plan (1) [...] full code Charges/Coding Visit Charges Inpatient E&M: 31329 Init Hosp L2 11/03/24 1656 <Electronically signed by Milady Tilley DO> Cosigner Signature (if applicable): CC: Dr. Milady Tilley DO; [facility] [facility]~ Signed Work Phone: 1(667) 130-690706-08-2025 History and physical note [facility] Medical Records Department [address] [place] [address] H&P Exam - Hospitalist 11/03/24 1621 MR#: [id number] Acct: [id number] Name: BAUTISTA RUFFIN Rep #:[id number] : 1960 64 From: Milady Tilley DO PCP: [facility] Status:ADM SERGIO Location: [facility] [id number] HPI - General General Date of Admission: 11/03/24 Date of Service: 11/03/24 Chief Complaint: Nausea/generalized weakness HPI Narrative BAUTISTA RUFFIN, is a 64 M who presented to the emergency department at with nausea and generalized weakness slightly. Patient [...] likely discharge tomorrow after infectious disease consultation. [facility] Medical History Sacral decubitus ulcer, stage III Atherosclerotic heart disease of chilkoot coronary artery without angina pectoris Depression Chronic [...] % (Auto) 69.4, Lymph % (Auto) 22.5, [place] % (Auto) 6.7, Eos % (Auto) 0.9, [...] lower chance of developing HCC. Reading Location: [facility] Chest X-Ray 11/03/24 14:35 IMPRESSION: No acute process detected. Reading Location: [facility] Assessment & Plan Assessment/Plan (1) Pseudomonas urinary [...] full code Charges/Coding Visit Charges Inpatient E&M: 08845 Init Hosp L2 11/03/24 1656 Cosigner Signature (if applicable): CC: Dr. Milady Tilley DO; [facility]~ Signed 06-08-2025 Radiology Diagnostic study note [facility] Imaging Services [address] [place] [address] Chest 1 View (Portable) MR#: [id number] Acct: [id number] Name: BAUTISTA RUFFIN Rep #: [id number] : 1960 M 64 From: Pet er Peer PCP: [facility] Status: REG ER Study:Chest 1 View (Portable) Date of Exam: 11/03/24 Exam# [id number] Ordering Dr: Julia Pedroza DO PROCEDURE: CHEST 1 VIEW (PORTABLE) 11/03/2024 REASON FOR EXAM: WEAKNESS TECHNIQUE: Frontal view of the chest. COMPARISON: Chest radiograph 07/14/2024 FINDINGS: Hardware: EKG lead wires Heart: Normal size Lungs: Clear Bones: No aggressive lesions identified Other: RAD/Chest 1 View (Portable) IMPRESSION: No acute process detected. Reading Location: [facility]-PEER- CC: Dr. Alma Rosa Pedroza DO; [facility] ~ Dogman/Woman: Signed 06-08-2025 Radiology Diagnostic study note [facility] Imaging Services [address] [place] [address] Abdomen/Pelvis W IV Cont ONLY MR#: [id number] Acct: [id number] Name: BAUTISTA RUFFIN Rep #: [id number] : 1960 M 64 From: Pet er Peer PCP: [facility] Status: REG ER Study:Abdomen/Pelvis W IV Cont ONLY Date of E xam: 11/03/24 Exam# [id number] Ordering Dr: Julia Pedroza DO PROCEDURE: ABDOMEN/PELVIS [...] RAD-PEER-NL CC: Dr. Alma Rosa Pedroza DO; [facility] ~ Dogman/Woman: Signed 06-08-2025 Evaluation note* Diagnosis Onset Date Resolution Status Admit Date Acute paraplegia acute October 4:12pm Acute UTI acute November 03, 2024 4:12pm Debility acute November 03, 2024 4:12pm Failure of outpatient treatment acut e November 03, 2024 4:12pm Nausea acute November 03, 2024 4:12pm Pseudomonas urinary tract infection acute November 03, 2024 4 :12pm Chronic suprapubic catheter chronic November 03, 2024 4:12pm Work Phone: 1(143) 658-890504-17-2025 Discharge summary [facility] Medical Records Department [address] [place] [address] Emergency Department Summary 09/11/24 MR#: [id number] Acct: [id number] Name: BATUISTA RUFFIN Rep #:[id number] : 1960 64 From: Alex Sheppard FIBERGLASS ROLLERParish PCP: [facility] Status:REG ER Location: ED ADDENDUM by Dr. Alma Rosa Pedroza DO on 09/12/24 at 1144 Care of patient turned over to [facility] awaiting transfer to tertiary care center for definitive care at [place]. Patient remained hemodynamically stable. [facility] will use there transfer team to transfer patient I am told at 1300 hrs. 09/12/24 1144 Cosigner Signature (if applicable): 09/12/24 0012 cc: [facility] ~* Signed HPI History of Present Illness Chief Complaint: Cellulitis Narrative Narrative: Patient is a 64-year-old male that is a paraplegic, this is secondary to transverse myelitis, patient also has history of wounds, colostomy, catheter, anxiety who presents to the [facility] for wound evaluation. Patient does live at home, patient's as well as some home care nursing doestake care of him. The home care nurses noticed that there was a foul-smelling odor from multiple wounds on his sacrum, buttocks area, they referred him to the [facility]. Patient denies any fever or chills. Patient does not state he has any pain however he has no feeling. [facility] Medical History Sacral decubitus ulcer, stage III Atherosclerotic heart disease of chilkoot coronary artery without angina pectoris Depression Chronic [...] 96 Pulse Ox 95 Oxygen Delivery Method [facility] Lab Data Labs: Laboratory Results - last 24 hr 09/11/24 09/11/24 16:00 16:56 WBC 11.6 H RBC 5.05 Hgb 13.0 Hct 40.9 MCV 81.0 MCH 25.7 L MCHC 31.8 L RDW Std Deviation 51.1 H RDW Coeff of Bhanu 17.6 H Plt Count 371 MPV 8.6 Immature Gran % (Auto) 0.400 Neut % (Auto) 66.2 Lymph % (Auto) 20.8 [place] % (Auto) 8.6 Eos % (Auto) 3.6 [...] Clarity Clear Urine pH 6.0 Ur Specific [place] 1.015 Urine Protein 15 H Urine Glucose [...] ischium bilaterally but no abscess. Reading Location: [id number] Treatment and Re-Evaluation :: Differential diagnosis includes [...] doeswant to try to go to the [facility]. We will try to see if they have a bed. If not the patient will be admitted here. Patient will be admitted to [facility]. MDM MDM Narrative Medical decision making narrative: [...] myself. Patient requested to go to the [facility]. Patient was accepted there. Patient was to be transferred to the emergency department there. However, ambulance service stated that the patient's insurance wouldnotcover their ambulance transfer [facility] the [facility] [...] % (Auto) 66.2 Lymph % (Auto) 20.8 [place] % (Auto) 8.6 Eos % (Auto) 3.6 [...] Clarity Clear Urine pH 6.0 Ur Specific [place] 1.015 Urine Protein 15 H Urine Glucose [...] Days Qty: 20 0RF [facility] Care Provider[facility] Referrals: [facility] [Primary Care Provider] - Print Language: Iraqi Disposition Disposition: Acute Care Hospital Discharge Location: Department of Affairs What to do if you have Problems For any increased pain, shortness of breath, bleeding, nausea or vomiting, chestpain, or any unexpected problems, contact your Primary Care Provider. Call [facility] ([phone]) or report tothe closest Emergency Room. Call 911 if necessary. 09/11/242147 Cosigner Signature (if applicable): 09/12/24 0012 CC: [facility] ~ Signed 04-16-2025 Radiology Diagnostic study note [facility] Imaging Services [address] [place], [place] [address] Pelvis WITH IV Contrast MR#: [id number] Acct: [id number] Name: BAUTISTA RUFFIN Rep #: [id number] : 1960 Rylee 64 From: Maxwell Figueroa MD PCP: [facility] Status: REG ER Study:Pelvis WITH IV Contrast Date of Exam: 09/11/24 Exam# [id number] Ordering Dr: Alex Ellis FIBERGLASS ROLLER-C PROCEDURE: PELVIS WITH IV CONTRAST REASON FOR [...] ischium bilaterally but no abscess. Reading Location: [id number] CC: MARCOS Sheppard; [facility] ~ Dogman/Woman: Signed 04-16-2025 Discharge summary Author Alex Sheppard Note Date/Time September 12, 2024 11: 45am [facility] Medical Records Department [address] [place] [address] Emergency Department Summary 09/11/24 MR#: [id number] Acct: [id number] Name: BAUTISTA RUFFIN Rep #:[id number] : 1960 64 From: Alex RODRÍGUEZ PCP: [facility] Status:REG ER Location: ED ADDENDUM by Dr. Alma Rosa Pedroza DO on 09/12/24 at 1144 Care of patient turned over to [facility] awaiting transfer to tertiary care center for definitive care at [facility]. Patient remained hemodynamically stable. [facility] will use there transfer team to transfer patient I am told at 1300 hrs. 09/12/24 1144<Electronically signed by Alma Rosa Pedroza DO> Cosigner Signature (if applicable): 09/12/24 0012 <Electronically signed by Adwoa NARVAEZ> cc: [facility] ~* Signed HPI <MARCOS Holliday - Last Filed: 09/11/24 21:48> History of Present Illness Chief Complaint: Cellulitis Narrative Narrative: Patient is a 64-year-old male that is a paraplegic, this is secondary to transverse myelitis, patient also has history of wounds, colostomy, catheter, anxiety who presents to the [facility] for wound evaluation. Patient does live at home, patient's as well as some home care nursing does take care of him. The home care nurses noticed that there was a foul-smelling odor from multiple wounds on his sacrum, buttocks area, [facility]. Patient denies any fever or chills. Patient does not state he has any pain however he has no feeling. [facility] <MARCOS Holliday - Last Filed: 09/11/24 21:48> [facility] Medical History Sacral decubitus ulcer, stage III Atherosclerotic heart disease of chilkoot coronary artery without angina pectoris Depression Chronic [...] 96 Pulse Ox 95 Oxygen Delivery Method [facility] <MARCOS Holliday - Last Filed: [...] % (Auto) 66.2 Lymph % (Auto) 20.8 [place] % (Auto) 8.6 Eos % (Auto) 3.6 [...] Clarity Clear Urine pH 6.0 Ur Specific [place] 1.015 Urine Protein 15 H Urine Glucose [...] want to try to go to the [facility]. We will try to see if they have a bed. If not the patient will be admitted here. Patient will be admitted to [facility]. <Dr. Adan Bell, DO - Last Filed: 09/12/24 00:12> [facility] MDM Narrative Medical decision making narrative: I [...] myself. Patient requested to go to the [place]. Patient was accepted there. Patient was to be transferred to the emergency department there. However, ambulance service stated that the patient's insurance would notcover their ambulance transfer to the [facility]. [facility] are unavailable [...] % (Auto) 66.2 Lymph % (Auto) 20.8 [place] % (Auto) 8.6 Eos % (Auto) 3.6 [...] Clarity Clear Urine pH 6.0 Ur Specific [place] 1.015 Urine Protein 15 H Urine Glucose [...] Days Qty: 20 0RF [facility] [[facility] Provider] - Print Language: Iraqi Disposition Disposition: Acute Care Hospital Discharge Location: [facility] of [place] Affairs What to do if you have Problems For any increased pain, shortness of breath, bleeding, nausea or vomiting, chestpain, or any unexpected problems, contact your Primary Care Provider. Call [facility] ([phone]) or report to the closest Emergency Room. Call 911 if necessary. 09/11/242147 <Electronically signed by Alex RODRÍGUEZ> Cosigner Signature (if applicable): 09/12/2411 <Electronically signed by Adan Bell DO> CC: [facility] ~ Signed Work Phone: 1(296) 778-891201-22-2025 [facility]01-17-2025 [facility]01-14-2025 Evaluation note* Diagnosis Onset Date Resolution Status [...] ulcer, stage III inactive June 16 7:56pm Work Phone: 1(800) 262-235412-13-2024 Telephone encounter Note* Telephone Encounter - Stacy Gongora - 05/10/2024 10:30 AM EST I spoke with the patient and scheduled an appointment. Stacy Gongora [facility]12-13-2024 Miscellaneous Notes* Telephone Encounter - Stacy Gongora [...] in 3 weeks please documented [facility]Uk [facility]12-10-2024 Telephone encounter Note * Telephone Encounter - Stacy Gongora - 05/07/2024 9:07 AM EST I called the patient to schedule an appointment. I left another voice mail with our office number to call back. Of note he has 2 numbers in the chart. The 601# does not work. Stacy Gongora [facility]12-09-2024 Telephone encounter Note* Telephone Encounter - Stacy Gongora - 05/06/2024 8:17 AM EST I called the patient to schedule an appointment with MTM in 3 weeks. I left a voice mail with our office number to call back. Stacy Gongora [facility]12-09-2024 Telephone encounter Note* Telephone Encounter - Stacy Gongora - 05/06/2024 8:17 AM EST ----- Message from Hetal Gallegos MD sent at 05/04/2024 12:05 PM EST ----- Follow-up in 3 weeks please [facility] Diagnosis Onset Date Resolution Status Non-ST elevated myocardial infarction (non-STEMI) resolved Work Phone: Evaluation noteNo assessment information available Work Phone: History and physical note Author Milady Tilley Note Date/Time November 03, 2024 4:56p m [facility] Medical Records Department [address] [place] [address] H&P Exam - Hospitalist 11/03/24 1621 MR#: [id number] Acct: [id number] Name: BAUTISTA RUFFIN Rep #:[id number] : 1960 64 From: Milady Tilley DO PCP: [facility] Status:ADM SERGIO Location: [facility] [id number] HPI - General General Date of Admission: 11/03/24 Date of Service: 11/03/24 Chief Complaint: Nausea/generalized weakness HPI Narrative BAUTISTA RUFFIN, is a 64 M who presented to the emergency department at with nausea and generalized weakness slightly. Patient [...] likely discharge tomorrow after infectious disease consultation. [facility] Medical History Sacral decubitus ulcer, stage III Atherosclerotic heart disease of chilkoot coronary artery without angina pectoris Depression Chronic [...] % (Auto) 69.4, Lymph % (Auto) 22.5, [place] % (Auto) 6.7, Eos % (Auto) 0.9, [...] lower chance of developing HCC. [facility] Chest X-Ray 11/03/24 14:35 IMPRESSION: [...] full code Charges/Coding Visit Charges Inpatient E&M: 60500 Init Hosp L2 11/03/24 1656 <Electronically signed by Milady Tilley DO> Cosigner Signature (if applicable): CC: Dr. Milady Tilley, ; [facility]~ Signed Work Phone: Hospital Discharge instructions Additional Instructions [...] if any worsening symptoms. Take medications as prescribed. Work Phone: Hospital Discharge instructions Additional Instructions Your suprapubic cath was exchanged 18 Bhutanese placed with urine output. Urine culture pending. Taking finish antibiotic as scribed. Follow-up with your urology team. Work Phone: Reason for referral (narrative)No reason for referral information availableWWexner Medical Center Work Phone: Summary Purpose Family History No Family History Records Found Relationship Condition Age at Onset Recorded Date/T dianelys father Cerebrovascular accident (CVA) Unknown Cardiac disease Unknown Myocardial infarction Unknown Advance Directives No Advanced Directives Records Found Advance Directive Response Recorded Date/ Time Name of Medical Power of Cotton Classer mother and sis ter June 28, 2021 5:01am Advance Directives No June 29, 2016 2:07am Living Will No September 09, 2021 3:30pm Power of Cotton Classer No September 09 3:30pm Advance Directive Response Recorded Date/ Time Advance Directives No June 29, 2016 1:07am Living Will Yes May 22, 2 022 4:43pm Power of Cotton Classer Yes May 22, 2022 4:43pm Name of Medical Power of Cotton Classer milka ter May 22, 2022 4:43pm Advance Directive Response Recorded Date/ Time Name of Medical Power of Cotton Classer milka horner May 22, 2022 4:43pm Advance Directives No June 29, 2016 1:07am Living Will No June 06 4:21pm Power of Cotton Classer No June 06 023 4:21pm Advance Directive Response Recorded Date/ Time Advance Directives No June 29, 2016 2:07am Living Will Yes October 09, 2023 1 :17am Power of Cotton Classer Yes October 09, 2023 1:17am Name of Medical Power of Cotton Classer Gloria ex wif e October 09, 2023 1:17am Advance Directive Response Recorded Date/ Time Living Will No June 12 12:19am Do you have a Healthcare Pow er of Cotton Classer? No June 12, 2024 12:19am Living Will Yes July 14 025 8:10am Do you have a Healthcare Pow er of Cotton Classer? Yes July 14, 2024 8:10am Name of Medical Power of Cotton Classer ANTHONY PLANT July 14, 2024 8:10am Living Will Yes September 11, 2024 3:41pm Do you have a Healthcare Pow er of Cotton Classer? Yes September 11, 2024 3:41pm Name of Medical Power of Cotton Classer Marisela September 11, 2024 3:41pm Living Will Yes June 16 10:03pm Do you have a Healthcare Pow er of Cotton Classer? Yes June 16, 2024 10:03pm Name of Medical Power of Cotton Classer yudith plant w nusrat June 16, 2024 10:03pm Living Will No July 13 025 3:32am Do you have a Healthcare Pow er of Cotton Classer? No July 13, 2024 3:32am Advance Directives No June 29, 2016 2:07am Advance Directive Response Recorded Date/ Time Living Will Yes July 14 025 8:10am Do you have a Healthcare Power of Cotton Classer? Yes July 14, 2024 8:10am Name of Medical Power of Cotton Classer ANTHONY PLANT July 14, 2024 8:10am Living Will Yes September 11, 2024 3:41pm Do you have a Healthcare Power of Cotton Classer? Yes September 11, 2024 3:41pm Name of Medical Power of Cotton Classer Marisela September 11, 2024 3:41pm Do you have a Healthcare Power of Cotton Classer? Yes November 01, 2024 2:11pm Living Will No July 13 3:32am Do you have a Healthcare Power of Cotton Classer? No July 13, 2024 3:32am Advance Directives No June 29, 2016 2:07am Advance Directive Response Recorded Date/ Time Living Will Yes July 14 8:10am Do you have a Healthcare Power of Cotton Classer? Yes July 14, 2024 8:10am Name of Medical Power of Cotton Classer ANTHONY PLANT July 14, 2024 8:10am Living Will Yes September 11, 2024 3:41pm Do you have a Healthcare Power of Cotton Classer? Yes September 11, 2024 3:41pm Name of Medical Power of Cotton Classer Marisela September 11, 2024 3:41pm Do you have a Healthcare Power of Cotton Classer? Yes November 01, 2024 2:11pm Do you have a Healthcare Power of Cotton Classer? No November 03, 2024 2:03pm Living Will No July 13 3:32am Do you have a Healthcare Power of Cotton Classer? No July 13, 2024 3:32am Advance Directives No June 29, 2016 2:07am Advance Directive Response Recorded Date/ Time Living Will Yes July 14 8:10am Do you have a Healthcare Power of Cotton Classer? Yes July 14, 2024 8:10am Name of Medical Power of Cotton Classer ANTHONY PLANT July 14, 2024 8:10am Living Will Yes September 11, 2024 3:41pm Do you have a Healthcare Power of Cotton Classer? Yes September 11, 2024 3:41pm Name of Medical Power of Cotton Classer Marisela September 11, 2024 3:41pm Do you have a Healthcare Power of Cotton Classer? Yes November 01, 2024 2:11pm Do you have a Healthcare Power of Cotton Classer? Yes November 03, 2024 5:39pm Living Will No July 13 3:32am Do you have a Healthcare Power of Cotton Classer? No July 13, 2024 3:32am Advance Directives [...] section and content) DATE CREATED AUTHOR 11/20/2017 [facility] DATE CREATED AUTHOR AUTHOR'S ORGANIZ ATION 11/21/2017 [facility] [place] DATE CREATED AUTHOR AUTHOR'S ORGANIZ ATION 05/11/2024 [facility] DATE CREATED AUTHOR AUTHOR'S ORGANIZ ATION 11/18/2024 [facility] Goals (unrecognized section and content) Goals [...] Team Status: Active Member Role Status Dates [facility] Family Provider Active [facility] Primary Care Provider Active Team Status: Inactive Member Role Status Dates [facility] Primary Care Provider Active Dr. Adan Bell DO Emergency Provider Active Sub Master Relationship Specialty Start Date End Date Jamey Huynh MD [address] [place] [address] PCP - General Family Medicine 01/02/12 Team Status: Active Member Role Status Dates [facility] Primary Care Provider Active Team Status: Inactive Member Role Status Dates [facility] Primary Care Provider Active Start: June [...] Team Status: Active Member Role Status Dates [facility] Primary Care Provider Active Start: June [...] Team Status: Active Member Role Status Dates [facility] Primary Care Provider Active Start: June [...] Team Status: Active Member Role Status Dates [facility] Primary Care Provider Active Start: June [...] Team Status: Inactive Member Role Status Dates [facility] Primary Care Provider Active Start: June [...] Team Status: Active Member Role Status Dates [facility] Primary Care Provider Active Start: June [...] Team Status: Active Member Role Status Dates [facility] Primary Care Provider Active Start: June [...] Team Status: Active Member Role Status Dates [facility] Primary Care Provider Active Start: June [...] Team Status: Inactive Member Role Status Dates [facility] Primary Care Provider Active Start: July 13, 2024 End: July 13, 2024 Dr. Richie Borden DO Attending Provider Active Start: July 13, 2024 End: July 13, 2024 Dr. Richie Borden DO Emergency Provider Active Start: July 13, 2024 End: July 13, 2024 Team Status: Inactive Member Role Status Dates [facility] Primary Care Provider Active Start: July 14, 2024 End: July 14, 2024 Dr. Rico Moore , Attending Provider Active Start: July 14, 2024 End: July 14, 2024 Dr. Rico Moore DO Emergency Provider Active Start: July 14, 2024 End: July 14, 2024 Team Status: Inactive Member Role Status Dates [facility] Primary Care Provider Active Start: September 11, 2024 End: September 12, 2024 Dr. Adan Bell , Emergency Provider Active Start: September 11, 2024 End: September 12, 2024 Team Status: Inactive Member Role Status Dates [facility] Primary Care Provider Active Start: September 11, 2024 End: September 12, 2024 Dr. Adan Bell DO Attending Provider Active Start: September 11, 2024 End: September 12, 2024 Dr. Adan Bell DO Emergency Provider Active Start: September 11, 2024 End: September 12, 2024 Team Status: Inactive Member Role Status Dates [facility] Primary Care Provider Active Start: November 01, 2024 End: November 01, 2024 Dr. Zhang Chavez , Emergency Provider Active Start : November 01, 2024 End: November 01, 2024 Team Status: Active Member Role Status Dates [facility] Primary Care Provider Active Start: November 03, 2024 Dr. Alma Rosa Pedroza DO Emergency Provider Active S tart: November 03, 2024 Dr. Milady Tilley , Admit Provider Active Start : November 03, 2024 Dr. Milady Tilley , Attending Provider Active S tart: November 03, 2024 Team Status: Active Member Role Status Dates [facility] Primary Care Provider Active Start: November [...] Team Status: Active Member Role Status Dates [facility] Primary Care Provider Active Start: November [...] Team Status: Inactive Member Role Status Dates [facility] Primary Care Provider Active Start: November [...] Team Status: Active Member Role Status Dates [facility] Primary Care Provider Active Start: November [...] or prosecute any alcohol or drug abuse patient.[facility] FOR RECORDS PERTAINING TO PATIENTS WHO ARE [...] BE BASED ON THE PRIMARY CLINICAL RECORDS. [facility] [employer] provides no warranty or guarantee of the accuracy or completeness of information in this document.
--- NOTE | 2024-11-30 16:44 | PCM.HP.STD ---
HPI - General General Date of Admission: 11/30/24 Date of Service: 11/30/24 Chief Complaint: Bladder spasms/discomfort HPI Narrative KALEN GAVIN, is a 64-year-old male with a history of transverse myelitis with paraplegia, anxiety and depression, neurogenic bladder with chronic indwelling Lima, chronic pain who presented [facility] ED 11/30/2024 generally feeling unwell with concerns for UTI and possibly some chest pain. In the ED temp 97.4, heart rate 90 with blood pressure 171/110, respiratory rate 14 with pulse ox 98% on room air. White blood cell count 12.6, hemoglobin 12.7. BMP with BUN of 18 and creatinine 0.64. First Trope 32 with repeat of 23 and chest x-ray with no acute process. Patient continued to have nausea and was concerned for a UTI, UA is concerning for UTI so hospitalist contacted for admission especially given patient's history of growth of multiple organisms including Pseudomonas. Patient given cefepime and hospitalist contacted for admission. Patient evaluated at bedside. When asked about patient having chest pain said he has not really been having chest pain, asked why patient came to the ED and he said because of suprapubic discomfort and nausea with concern for UTI. Has a little bit of a headache but presently denying any chest pain or shortness of breath, no cough. Reports no changes with his ostomy. Said he is beginning to feel better but still feels somewhat generally unwell. Of note patient has some right lower extremity swelling but he reports that this is not new [facility] Medical History Debility Marijuana use Tobacco abuse Paraplegia Sacral decubitus ulcer, stage III Atherosclerotic heart disease of [place] coronary artery without angina pectoris Depression Chronic indwelling Lima catheter Heavy alcohol use Anxiety and depression Acute paralytic poliomyelitis, wild virus, indigenous Osteomyelitis of right femur Transverse myelitis Neurogenic bladder Benign essential hypertension Home Medications ?Medication ?Instructions ?Recorded ?Last Taken ?Type baclofen 20 mg tablet 20 mg PO 4X/DAY muscle spasms 02/26/13 06/27/21 History multivitamin with folic acid 400 1 tab PO LUNCH supplemeny 02/26/13 06/27/21 History mcg tablet (Thera) nortriptyline 50 mg capsule 100 mg PO QHS anxiety 01/19/19 06/26/21 History ascorbic acid (vitamin C) 1,000 mg 1 g PO DAILY Check with primary 06/28/21 Unknown History tablet (Vitamin C) doctor cholecalciferol (vitamin D3) 50 50 mcg PO DAILY Check with primary 06/28/21 Unknown History mcg (2,000 unit) capsule (Vitamin doctor D3) docusate sodium 100 mg capsule 100 mg PO BID Check with primary 06/28/21 Unknown History doctor loratadine 10 mg capsule 10 mg PO DAILY Check with primary 06/28/21 Unknown History doctor venlafaxine 75 mg tablet 150 mg PO DAILY Check with primary 06/28/21 Unknown History doctor aspirin 81 mg tablet,delayed 81 mg PO BREAKFAST heart health 30 06/29/21 Unknown Rx release days #30 tabs carvedilol 6.25 mg tablet 6.25 mg PO BID heart 30 days #60 06/29/21 Unknown Rx tabs ondansetron 4 mg disintegrating 4 mg PO Q8H PRN nausea and 06/06/22 Unknown Rx tablet vomiting #10 tabs rosuvastatin 10 mg tablet (Crestor) 20 mg PO DAILY 06/16/24 Unknown History buprenorphine 20 mcg/hour weekly 1 patch transdermal Q7D 09/11/24 Unknown History transdermal patch acetaminophen 325 mg tablet 650 mg PO BID PRN 11/03/24 Unknown History (Tylenol) doxycycline monohydrate 100 mg 100 mg PO BID 11/03/24 Unknown History capsule ibuprofen 600 mg tablet (IBU) 600 mg PO 4X/DAY PRN 11/03/24 Unknown History lidocaine 5 % topical patch 2 patch topical DAILY 11/03/24 Unknown History oxycodone-acetaminophen 5 mg-325 1 tab PO Q6H pain 11/03/24 Unknown History mg tablet pregabalin 150 mg capsule (Lyrica) 150 mg PO TID 11/03/24 Unknown History cefepime 2 gram solution for 2 g IV Q8 5 days #16 ea 11/04/24 Unknown Rx injection Allergy/AdvReac Type Severity Reaction Status Date / Time No Known Allergies Allergy Verified 11/30/24 06:59 Family History Father CVA (cerebral vascular accident) Heart disease Myocardial infarction Surgical History History of coronary artery stent placement (06/28/21) History of femoral derotational osteotomy History of appendectomy History of suprapubic catheter Hx of colostomy Colostomy in place Social History household members: spouse housing: house current occupational status: retired Smoking Status: Former smoker alcohol intake: former substance use type: marijuana ROS ROS Narrative General: Denies fever/chills HENT: Slight headache, denies stuffy nose, denies sore throat EYES: Denies changes in vision Resp: Denies cough, denies shortness of breath Cardiac: Denies chest pain GI: Some nausea, some suprapubic pain, denies changes with his ostomy : Has chronic indwelling Lima catheter Extremity: Some chronic right lower extremity swelling MSK: Patient paraplegic at baseline Neuro: Patient paraplegic at baseline with decreased sensation in lower extremities at baseline Heme: Denies any bleeding or bruising Skin: Denies rashes Psychiatric: No complaints voiced Vital Signs Vital Signs Vital Signs: 11/30/24 06:59 11/30/24 07:03 11/30/24 07:03 Temperature 97.4 F L Temperature Source Oral Pulse Rate 90 Respiratory Rate 14 Respiratory Effort Normal Blood Pressure 171/110 H Blood Pressure Mean 130 Pulse Ox 98 Oxygen Delivery Method Room Air 11/30/24 07:59 11/30/24 09:00 11/30/24 10:00 Temperature Temperature Source Pulse Rate 85 109 H 78 Respiratory Rate 18 20 H 18 Respiratory Effort Blood Pressure 172/94 H 172/64 H 171/76 H Blood Pressure Mean 120 100 107 Pulse Ox 94 99 98 Oxygen Delivery Method Room Air Room Air Room Air 11/30/24 11:00 11/30/24 12:00 11/30/24 13:00 Temperature Temperature Source Pulse Rate 115 H 67 78 Respiratory Rate 18 18 14 Respiratory Effort Blood Pressure 174/78 H 167/78 H 164/78 H Blood Pressure Mean 110 107 106 Pulse Ox 98 98 98 Oxygen Delivery Method Room Air Room Air Room Air 11/30/24 14:00 11/30/24 15:08 11/30/24 16:00 Temperature Temperature Source Pulse Rate 78 64 92 Respiratory Rate 15 18 15 Respiratory Effort Blood Pressure 189/64 H 178/76 H 188/98 H Blood Pressure Mean 105 110 128 Pulse Ox 96 99 97 Oxygen Delivery Method Room Air Room Air Room Air Weight Weight: 76.9 kg Body Mass Index (BMI) 25.0 Physical Exam Narrative General: Alert, no apparent distress HEENT: Atraumatic Eyes: Anicteric, normal conjunctiva, extraocular movements grossly intact Neck: Supple Respiratory: Clear to auscultation bilaterally, normal respiratory effort Cardiovascular: Regular rate and rhythm GI: Soft, no overt tenderness, nondistended Musculoskeletal: Chronically paraplegic, has some swelling in lower extremities right greater than left Neuro: Patient with baseline deficits, reports he is currently at baseline Skin: No rashes appreciated Psych: Cooperative Results Lab / Micro Data 11/30/24 07:28 11/30/24 07:28 Labs: Laboratory Results - last 24 hr 11/30/24 07:28: WBC 12.6 H, RBC 5.13, Hgb 12.7 L, Hct 39.7 L, MCV 77.4 L, MCH 24.8 L, MCHC 32.0, RDW Std Deviation 49.1 H, RDW Coeff of Bhanu 17.4 H, Plt Count 407, MPV 8.8, Immature Gran % (Auto) 0.600, Neut % (Auto) 76.3 H, Lymph % (Auto) 16.2 L, Bent % (Auto) 5.1, Eos % (Auto) 1.4, Baso % (Auto) 0.4, Absolute Neuts (auto) 9.6 H, Absolute Lymphs (auto) 2.04, Nucleated RBC % 0, Sodium 139, Potassium 4.1, Chloride 103, Carbon Dioxide 22.3, Anion Gap 13, BUN 18, Creatinine 0.64 L, Estim Creat Clear Calc 118.14, Est GFR (MDRD) Non-Af 106, BUN/Creatinine Ratio 27.8 H, Glucose 129 H, Calcium 9.2, Troponin T High Sens 32 H D 11/30/24 09:15: Troponin T Hi Sens 2 Hr 23 H 11/30/24 14:43: Urine Color Yellow, Urine Clarity Sl. Cloudy, Urine pH 5.0, Ur Specific Sophia 1.025, Urine Protein 30 H, Urine Glucose (UA) Normal, Urine Ketones 50 H, Urine Occult Blood 150 H, Urine Nitrite Negative, Urine Bilirubin Negative, Urine Urobilinogen Normal, Ur Leukocyte Esterase 500 H, Urine RBC 0-5 SEEN, Urine WBC 10-25 SEEN, Ur Squamous Epith Cells 0-5 SEEN, Urine Bacteria 3+, Hyaline Casts 0-5 SEEN, Urine Mucus 1+, Urine Yeast 2+ Rhythm Strip Rhythm Strip: Sinus Rhythm Rate: 90 Ectopy: None Imaging Radiology Impression Chest X-Ray 11/30/24 08:05 IMPRESSION: No acute cardiopulmonary process. Reading Location[facility] Assessment & Plan Assessment/Plan (1) UTI (urinary tract infection): PLAN: Plan # Nausea and suspected complicated UTI associated with chronic indwelling Lima catheter - UA concerning for UTI and patient does have a history of UTI, polymicrobial but also Pseudomonas - Has been sensitive to cefepime in the past so we will continue - Awaiting culture and sensitivity data - May need ID consult depending on growth - Gentle IV fluids #RLE swelling - Patient poor historian, reports this is not new but unable to obtain any other information - Will obtain lower extremity duplex for further characterization # Chronic paraplegia with neurogenic bladder and chronic indwelling Lima catheter/chronic pain/colostomy - Supportive care - Continue home medications #Depression/anxiety -Continue home medications #DVT ppx: Lovenox subcu Ricarda Meza MD Charges/Coding Visit Charges Inpatient E&M: 68746 Init Hosp L2
--- OUTSIDE RECORDS SUMMARY | 2024-11-30 16:51 | XMS RPT_ITS | CCD ---
Author Organization [facility] Care Team Providers Care Associate Medical Director Name Role Phone PROVIDER, UNKNOWN Unavailable Unavailable No, PCP Unavailable Unavailable Gajulapalli, Chivo Unavailable Unavailable [facility] Unavailable Unavail able [facility] Unavailable Unavail able [facility] Unavailable Unavail able [facility] Unavailable Unavail able [facility] Unavailable Unavail able [place] Primary Care Provider UnavailDr. Adan Santa Emergency Provider Dr. Lorraine Quinonez Admit Provider Dr. Lorraine Quinonez Referring Provider Dr. Zackary Costello Other Provider Dr. John Ponce Other Provider Dr. Alberto Candelario Attending Provider Dr. John Ponce Attending Provider JAMEY HUYNH Primary Care UnavailJamey Weiss MD Primary Care Provider [place] Primary Care Provider UnavailDr. Alma Rosa Isaacs DO Emergency Provider Dr. Ronak Quiroz DO Admit Provider Unavail able Dr. Ronak Quiroz DO Other Provider Unavail able Adis MARR, Dr. Farmer Attending Provider Dr. Maulik Jenkins MD Other Provider [place] Primary Care Provider UnavailDr. Darian Park MD Other Provider Dr. Christian Merlos MD Emergency Provider Dr. Richie Borden DO Attending Provider Dr. Richie Borden DO Emergency Provider Oscar NARVAEZ, Dr. Gómez Attending Provider Oscar NARVAEZ, Dr. Gómez Emergency Provider Ray NARVAEZ, Dr. Arellano Emergency Provider [facility], [place] Primary Care Provider Unavailabl e Ray NARVAEZ, Dr. Arellano Attending Provider Kathy NARVAEZ, Dr. Holcomb Emergency Provider Ungelizabeth DO, Dr. St Emergency Provider Jarek NARVAEZ, Dr. Henning Admit Provider Jarek NARVAEZ, Dr. Henning Attending Provider [facility], [place] Primary Care Provider Unavailabl e Jarek NARVAEZ, [...] Primary Care Unavailable Richie Borden Attending Unavailable iRco Moore Attending [facility] [place] [facility] Unavailable de Ronak Cui Admitting [facility] [place] [facility] Unavailable Darian Arceo Attending Unavailable Ronak Quiroz Consulting Unavailable Ronak Quiroz Consulting Unavailable Ronak Quiroz Admitting Unavailable Darian Arceo Attending [facility] [place] [facility] Unavailable Maulik Jenkins Consulting Unavailable Adan Bell Attending Unavailable [facility] Primary Care Unavailable Hema [facility]aptiste [facility] [place] [facility] Un[facility] Zhang Chavez Attending [place] [facility] Unavailable Milady Tilley Consulting Unavailable Milady Tilley Admitting Unavailable Milady Tilley Attending Unavailable [facility] Primary Care Unavailable Adan Schneider Attending Unavailable Maulik Jenkins Consulting Unavailable Adan Schneider Consulting Unavailable Adan Schneider Attending Unavailable Milady Tilley Consulting Unavailable Milady Tilley Admitting [place] Unavailable Maulik Jenkins Unavailable Adan [...] 03, 2024 7:54pm On Hold: not confirmed Pubkb-Zybm-Qbuvz -Unesqz-Df-Pkw (Mamadou (With Collagen)) 1 PACKET Packet (8 sources) Start: 03-22-2017 End: 05-01-2017 take 1 dose by mouth twice daily at mealtime Wshlu-Ibqs-Jvypc-Co llag-Mv-Min (Mamadou (With Collagen)) 1 PACKET Packet Discontinued 1 PACKET PO TWICE DAILY WITH MEALS March 22, 2017 1:37pm May 01, 2017 12:37pm Start: 03-22-2017 End: 05-01-2017 take 1 dose by mouth twice daily at mealtime Yqdlj-Czno-Orpra-Rbsosy-Fl-Uak (Mamadou (W ith Collagen)) 1 PACKET Packet Discontinued 1 NMA PO TWICE DAILY WITH MEALS March 22, 2017 12:00am May 01, 2017 12:37pm Start: 03-22-2017 End: 05-01-2017 take 1 dose by mouth twice daily at mealtime Eahcw-Qlcv-Dyuud-Fnzdoe-Or-Oiu (Mamadou (W ith Collagen)) 1 PACKET Packet Discontinued 1 PACKET PO TWICE DAILY WITH MEALS March 22, 2017 12:00am May 01, 2017 12:37pm Start: 03-22-2017 End: 05-01-2017 take 1 dose by mouth twice daily at mealtime Qzucu-Kmqs-Mfvkk-Vhthes-Po-Gki (Mamadou (W ith Collagen)) 1 PACKET Packet [...] 19, 2013 1:00am take 1 capsule by [facility] three times daily gabapentin (NEURONTIN) 400 mg [...] beta Lactamase Inhibitor Start: 06-14-2024 End: 06-19-2024 Smkfubwznudh-Ulxnjjgcvx-Jeli rs (Zosyn In Dextrose (Iso-Osm)) 3.375 gram/50 mL piggyback Discontinued 3.375 g IV Q8H June 14, 2024 1:00am June 19, 2024 12:42pm dx: pseudomonas infection. Midline care per protocol. Start: 03-16-2017 End: 05-01-2017 take 3.375 g intravenously every six hours Coevgvbpkkmt-Kuawvyhbjg-Xdpczg (Zosyn) 3.375 GM/50 ML Ml Discontinued 3.375 [...] Coronary atherosclerosis; Translations: [Atherosclerotic heart disease of [place] coronary artery without angina pectoris] 06-28-2021 Chronic [...] Auto (Unsp spec) [#/Vol] 1.95 10*3/uL 0.83-4.51 [facility] Absolute neutrophil countOrd ered By: Milady Tilley on 11-04-2024 Neutrophils (Bld) [#/Vol] 4.6 10*3/uL 2.0-7.7 [facility] Anion gap in Serum or Plasma Ordered By: Milady Tilley on 11-04-2024 Anion gap [Moles/Vol] 11 mmol/L 5-15 [facility] Automated lymphocyte count a s percentage of total leukocytesOrdered By: Milady Tillye on 11-04-2024 Lymphocytes/100 WBC Auto (Unsp spec) 25.3 % 19-41 [facility] BUN/creatinine ratioOrdered By: Milady Tilley on 11-04-2024 Urea nitrogen/Creatinine [Mass ratio] 22.2 mg/mg High 10-20 [facility] Basophil percentageOrdered B y: Milady Tilley on 11-04-2024 Basophils/100 WBC (Bld) 0.4 % 0-1 [facility] Bilirubin, totalOrdered By: Milady Tilley on 11-04-2024 Bilirubin [Mass/Vol] mg/dL 0.00-1.30 [facility] CBC W/Diff, Automatedon 06-0 9-2025 Absolute Lymph 1.95 X10 3/uL Normal 0.83-4.51 [facility] Comment on above: Performed By: #### L 501.2300, L501.5200, L500.4050, L100.0100 ####[facility] [address] [place], [address] Absolute Neut 4.6 X10 3/uL Normal 2.0-7.7 [facility] Comment on above: Performed By: #### L 501.2300, L501.5200, L500.4050, L100.0100 ####[facility] [address] [place], [address] Basophils/100 WBC (Bld) 0.4 % Normal 0-1 [facility] Comment on above: Performed By: #### L 501.2300, L501.5200, L500.4050, L100.0100 ####[facility] [address] [place], [address] Eosinophils/100 WBC (Bld) 2.6 % Normal 0-5 [facility] Comment on above: Performed By: #### L 501.2300, L501.5200, L500.4050, L100.0100 ####[facility] [address] [place], [address] Erythrocyte distribution width (RBC) [Ratio] 18.0 % High 11.6-14.6 [facility] Comment on above: Performed By: #### L 501.2300, L501.5200, L500.4050, L100.0100 ####[facility] [address] [place], [address] Hematocrit (Bld) [Volume fraction] 34.3 % Low 40-54 [facility] Comment on above: Performed By: #### L 501.2300, L501.5200, L500.4050, L100.0100 ####[facility] [address] [place], [address] Hemoglobin (Bld) [Mass/Vol] 10.9 g/dL Low 13.0-16. 5 [facility] Comment on above: Performed By: #### L 501.2300, L501.5200, L500.4050, L100.0100 ####[facility] [address] [place], [address] IG% 0.300 Normal 0.0-0.9 [facility] Comment on above: Result Comment: IG% - Immature Granulocytes (promyelocytes, myelocytes andmetamyelocytes) > 1% indicates that a LEFT SHIFT is Present. Performed By: #### L 501.2300, L501.5200, L500.4050, L100.0100 ####[facility] [address] [place], [address] Lymphocytes/100 WBC (Bld) 25.3 % Normal 19-41 [facility] Comment on above: Performed By: #### L 501.2300, L501.5200, L500.4050, L100.0100 ####[facility] [address] [place], [address] MCH (RBC) [Entitic mass] 24.9 pg Low 27.0-32.0 [facility] Comment on above: Performed By: #### L 501.2300, L501.5200, L500.4050, L100.0100 ####[facility] [address] [place], [address] MCHC (RBC) [Mass/Vol] 31.8 g/dL Low 32-36 [facility] Comment on above: Performed By: #### L 501.2300, L501.5200, L500.4050, L100.0100 ####[facility] [address] [place], [address] MCV (RBC) [Entitic vol] 78.3 fL Low 80-94 [facility] Comment on above: Performed By: #### L 501.2300, L501.5200, L500.4050, L100.0100 ####[facility] [address] [place], [address] Monocytes/100 WBC (Bld) 11.7 % High 0-10 [facility] Comment on above: Performed By: #### L 501.2300, L501.5200, L500.4050, L100.0100 ####[facility] [address] [place], [address] Neutrophils/100 WBC (Bld) 59.7 % Normal 47-70 [facility] Comment on above: Performed By: #### L 501.2300, L501.5200, L500.4050, L100.0100 ####[facility] [address] [place], [address] Nucleated RBC (Bld) [#/Vol] 0 10*3/uL Normal 0-5 [facility] Comment on above: Performed By: #### L 501.2300, L501.5200, L500.4050, L100.0100 ####[facility] [address] [place], [address] Platelet mean volume (Bld) [Entitic vol] 9.0 fL Normal 6.2-12.0 [facility] Comment on above: Performed By: #### L 501.2300, L501.5200, L500.4050, L100.0100 ####[facility] [address] [place], [address] Platelets (Bld) [#/Vol] 297 10*3/uL Normal 150-450 [facility] Comment on above: Performed By: #### L 501.2300, L501.5200, L500.4050, L100.0100 ####[facility] [address] [place], [address] RBC (Bld) [#/Vol] 4.38 10*6/uL Low 4.6-6.2 [facility] Comment on above: Performed By: #### L 501.2300, L501.5200, L500.4050, L100.0100 ####[facility] [address] [place], [address] RDW SD 51.3 fl High 35.1-43.9 [facility] Comment on above: Performed By: #### L 501.2300, L501.5200, L500.4050, L100.0100 ####[facility] [address] [place], [address] WBC (Bld) [#/Vol] 7.7 10*3/uL Normal 4.4-11.0 [facility] Comment on above: Performed By: #### L 501.2300, L501.5200, L500.4050, L100.0100 ####[facility] [address] [place], [address] Carbon dioxide, total [Moles /volume] in Central venous bloodOrdered By: Milady Tilley on 11-04-2024 CO2 [Moles/Vol] 23.4 mmol/L 21.0-32.0 [facility] Chloride assayOrdered By: Kaitlyn Tilley on 11-04-2024 Chloride [Moles/Vol] 106 mmol/L 98-108 [facility] Comprehensive Metabolic Prof ilon 11-04-2024 Albumin [Mass/Vol] 2.7 g/dL Low 3.4-4.8 [facility] Comment on above: Performed By: #### L 501.2300, L501.5200, L500.4050, L100.0100 ####[facility] [address] [place], [address] Albumin/Globulin [Mass ratio] 0.9 {ratio} Normal 0.9-2.4 [facility] Comment on above: Performed By: #### L 501.2300, L501.5200, L500.4050, L100.0100 ####[facility] [address] [place], [address] ALK PHOS 108 U/L Normal 40-129 [facility] Comment on above: Performed By: #### L 501.2300, L501.5200, L500.4050, L100.0100 ####[facility] [address] [place], [address] ALT [Catalytic activity/Vol] 6 U/L Normal <=46 [facility] Comment on above: Performed By: #### L 501.2300, L501.5200, L500.4050, L100.0100 ####[facility] [address] [place], [address] AST [Catalytic activity/Vol] 14 U/L Normal <=37 [facility] Comment on above: Performed By: #### L 501.2300, L501.5200, L500.4050, L100.0100 ####[facility] [address] [place], [address] BUN/CRE 22.2 RATIO High 10-20 [facility] Comment on above: Performed By: #### L 501.2300, L501.5200, L500.4050, L100.0100 ####[facility] [address] [place], [address] Calcium [Mass/Vol] 8.4 mg/dL Normal 7.6-11.0 [facility] Comment on above: Performed By: #### L 501.2300, L501.5200, L500.4050, L100.0100 ####[facility] [address] [place], [address] Chloride [Moles/Vol] 106 mmol/L Normal 98-108 [facility] Comment on above: Performed By: #### L 501.2300, L501.5200, L500.4050, L100.0100 ####[facility] [address] [place], [address] CO2 [Moles/Vol] 23.4 mmol/L Normal 21.0-32.0 [facility] Comment on above: Performed By: #### L 501.2300, L501.5200, L500.4050, L100.0100 ####[facility] [address] [place], [address] Creatinine [Mass/Vol] 0.68 mg/dL Low 0.70-1.20 [facility] Comment on above: Performed By: #### L 501.2300, L501.5200, L500.4050, L100.0100 ####[facility] [address] [place], [address] ECRCL 111.19 ml/min Normal 50-250 [facility] Comment on above: Performed By: #### L 501.2300, L501.5200, L500.4050, L100.0100 ####[facility] [address] [place], [address] GAP 11 Normal 5-15 [facility] Comment on above: Performed By: #### L 501.2300, L501.5200, L500.4050, L100.0100 ####[facility] [address] [place], [address] GFR/1.73 sq M.predicted among non-blacks MDRD (S/P/Bld) [Vol rate/Area] 104 mL/min/{1.73_m2} Normal >60 [facility] Comment on above: Result Comment: mL/m in/1.73m2 CKD-EPI Creatinine Equation (2020) Performed By: #### L 501.2300, L501.5200, L500.4050, L100.0100 ####[facility] [address] [place], [address] Globulin (S) [Mass/Vol] 3.1 g/dL Normal 2.2-4.2 [facility] Comment on above: Performed By: #### L 501.2300, L501.5200, L500.4050, L100.0100 ####[facility] [address] [place], [address] Glucose [Mass/Vol] 139 mg/dL High 70-99 [facility] Comment on above: Performed By: #### L 501.2300, L501.5200, L500.4050, L100.0100 ####[facility] [address] [place], [address] Potassium [Moles/Vol] 3.5 mmol/L Normal 3.3-5.1 [facility] Comment on above: Performed By: #### L 501.2300, L501.5200, L500.4050, L100.0100 ####[facility] [address] [place], [address] Sodium [Moles/Vol] 140 mmol/L Normal 133-145 [facility] Comment on above: Performed By: #### L 501.2300, L501.5200, L500.4050, L100.0100 ####[facility] [address] [place], [address] T BILI < 0.15 Normal 0.00-1.30 [facility] Comment on above: Performed By: #### L 501.2300, L501.5200, L500.4050, L100.0100 ####[facility] [address] [place], [address] T PROT 5.9 g/dL Normal 5.9-8.4 [facility] Comment on above: Performed By: #### L 501.2300, L501.5200, L500.4050, L100.0100 ####[facility] [address] [place], [address] Urea nitrogen [Mass/Vol] 15 mg/dL Normal 4-19 [facility] Comment on above: Performed By: #### L 501.2300, L501.5200, L500.4050, L100.0100 ####[facility] [address] [place], [address] Consultation - Infectious Dx on 11-04-2024 Consultation - Infectious Dx Normal [facility] Electrocardiogram reportOrde red By: Hetal Carrington on 11-04-2024 EKG study [facility] [address] [place] [address] 12 Lead EKG 11/03/24 1226 MR#: [id number] Acct: [id number] Name: BAUTISTA RUFFIN Rep #:[id number] : 1960 64 From: Hetal live MD Attending Dr: Dr. Adan Schneider, DO Status: ADM SERGIO Ordering Dr: Alma Rosa Pedroza DO Date: 01/20 [place] [facility] [place] M C Admitted: 11/03/24 Test Reason : Blood Pressure : */* mmHG Vent. Rate : 70 BPM Atrial Rate : 70 BPM P-R Int : 158 ms QRS Dur : 94 ms QT Int : 422 ms P-R-T Axes : 49 65 78 degrees QTcB Int : 455 ms Normal sinus rhythm Normal ECG Confirmed by Hetal Carrington ([id number]), newspaper managing editor AMADO RASHID ([id number]) on 11/04/2024 9:37:41 AM Referred By: Confirmed By: Hetal Carrington 11/04/24 0937 Date _ Hetal Carrington MD CC: Dr. Adan Schneider, DO; Dr. Alma Rosa Pedroza, DO; [facility] ~ Signed [facility] Other Phone: Eosinophil percentageOrdered By: Milady Tilley on 11-04-2024 Eosinophils/100 WBC (Bld) 2.6 % 0-5 [facility] Erythrocyte distribution wid th ratioOrdered By: Milady Tilley on 11-04-2024 Erythrocyte distribution width (RBC) [Ratio] 18.0 % High 11.6-14.6 [facility] Erythrocyte distribution wid th standard deviationOrdered By: Milady Tilley on 11-04-2024 Erythrocyte distribution width (RBC) [Ratio] 51.3 fl High 35.1-43.9 [facility] Glomerular filtration rate ( GFR) estimation/1.73 sq m using serum, plasma, or whole bOrdered By: Milady Tilley on 11-04-2024 GFR/1.73 sq M.predicted among non-blacks MDRD (S/P/Bld) [Vol rate/Area] 104 mL/min/{1.73_m2} >60 [facility] Comment on above: mL/min/1.73m2 CKD-EP I Creatinine Equation (2020) Hematocrit Auto (Bld) [Volum e fraction]Ordered By: Milady Tilley on 11-04-2024 Hematocrit (Bld) [Volume fraction] 34.3 % Low 40-54 [facility] Hemoglobin measurementOrdere d By: Milady Tilley on 11-04-2024 Hemoglobin (Bld) [Mass/Vol] 10.9 g/dL Low 13.0-16. 5 [facility] Immature granulocytes/100 WB C Auto (Bld)Ordered By: Milady Tilley on 11-04-2024 Immature granulocytes/100 WBC (Bld) 0.300 % 0.0-0.9 [facility] Comment on above: IG% - Immature Granu locytes (promyelocytes, myelocytes and metamyelocytes) > 1% indicates that a LEFT SHIFT is Present. Laboratory - Chemistry and C hemistry - challengeOrdered By: Milady Tilley on 11-04-2024 AST [Catalytic activity/Vol] 14 U/L <38 [facility] MCV (mean corpuscular volume ) determinationOrdered By: Milady Tilley on 11-04-2024 MCV (RBC) [Entitic vol] 78.3 fL Low 80-94 [facility] Magnesiumon 11-04-2024 Magnesium [Mass/Vol] 1.9 mg/dL Normal 1.5-2.2 [facility] Comment on above: Performed By: #### L 501.2300, L501.5200, L500.4050, L100.0100 ####[facility] [address] [place], [address] Magnesium measurement (mass/ volume)Ordered By: Milady Tilley on 11-04-2024 Magnesium (Unsp spec) [Mass/Vol] 1.9 mg/dL 1.5-2.2 [facility] Mean corpuscular hemoglobin (MCH) determinationOrdered By: Milady Tilley on 11-04-2024 MCH (RBC) [Entitic mass] 24.9 pg Low 27.0-32.0 [facility] Mean corpuscular hemoglobin concentration (MCHC) determinationOrdered By: Milady Tilley on 11-04-2024 MCHC (RBC) [Mass/Vol] 31.8 g/dL Low 32-36 [facility] Mean platelet volume determi nationOrdered By: Milady Tilley on 11-04-2024 Platelet mean volume (Bld) [Entitic vol] 9.0 fL 6.2-12.0 [facility] Monocyte percentageOrdered B y: iMlady Tilley on 11-04-2024 Monocytes/100 WBC (Bld) 11.7 % High 0-10 [facility] Neutrophil percentageOrdered By: Milady Tilley on 11-04-2024 Neutrophils/100 WBC (Bld) 59.7 % 47-70 [facility] Nucleated red blood cell per centageOrdered By: Milady Tilley on 11-04-2024 Nucleated RBC/100 WBC (Bld) [Ratio] 0 % 0-5 [facility] Phosphoruson 11-04-2024 Phosphate [Mass/Vol] 3.1 mg/dL Normal 2.7-4.5 [facility] Comment on above: Performed By: #### L 501.2300, L501.5200, L500.4050, L100.0100 ####[facility] [address] [place], [address] Platelet countOrdered By: Kaitlyn Tilley on 11-04-2024 Platelets (Bld) [#/Vol] 297 10*3/uL 150-450 [facility] Potassium measurement (mass/ volume)Ordered By: Milady Tilley on 11-04-2024 Potassium (Unsp spec) [Mass/Vol] 3.5 mmol/L 3.3-5.1 [facility] RBC Auto (Bld) [#/Vol]Ordere d By: Milady Tilley on 11-04-2024 RBC (Bld) [#/Vol] 4.38 10*6/uL Low 4.6-6.2 [facility] Serum creatinine measurement (mass/volume)Ordered By: Milady Tilley on 11-04-2024 Creatinine [Mass/Vol] 0.68 mg/dL Low 0.70-1.20 [facility] Serum globulin measurementOr dered By: Milady Tilley on 11-04-2024 Globulin (S) [Mass/Vol] 3.1 g/dL 2.2-4.2 [facility] Serum glucose measurement (m ass/volume)Ordered By: Milady Tilley on 11-04-2024 Glucose [Mass/Vol] 139 mg/dL High 70-99 [facility] Serum or plasma alanine hooper otransferase (ALT) measurementOrdered By: Milady Tilley on 11-04-2024 ALT [Catalytic activity/Vol] 6 U/L <47 [facility] Serum or plasma albumin shantal urement (mass/volume)Ordered By: Milady Tilley on 11-04-2024 Albumin [Mass/Vol] 2.7 g/dL Low 3.4-4.8 [facility] Serum or plasma albumin/glob ulin mass ratioOrdered By: Milady Tilley on 11-04-2024 Albumin/Globulin [Mass ratio] 0.9 {ratio} 0.9-2.4 [facility] Serum or plasma alkaline radha sphatase measurementOrdered By: Milady Tilley on 11-04-2024 ALP [Catalytic activity/Vol] 108 U/L 40-129 [facility] Serum or plasma calcium shantal urement (mass/volume)Ordered By: Milady Tilley on 11-04-2024 Calcium [Mass/Vol] 8.4 mg/dL 7.6-11.0 [facility] Serum or plasma urea nitroge n measurement (mass/volume)Ordered By: Milady Tilley on 11-04-2024 Urea nitrogen [Mass/Vol] 15 mg/dL 4-19 [facility] Sodium levelOrdered By: Cleo Tilley on 11-04-2024 Sodium [Moles/Vol] 140 mmol/L 133-145 [facility] Total proteinOrdered By: Yumi Tilley on 11-04-2024 Protein [Mass/Vol] 5.9 g/dL 5.9-8.4 [facility] Urine Cultureon 11-04-2024 URC Normal [facility] Comment on above: Performed By: #### M 100.2200, L400.0001 ####[facility] [address] [place], [address] White blood cell (WBC) count Ordered By: Milady Tilley on 11-04-2024 WBC (Bld) [#/Vol] 7.7 10*3/uL 4.4-11.0 [facility] 12 Lead EKGon 11-03-2024 12 Lead EKG Normal [facility] Abdomen/Pelvis W IV Cont ONL Yon 11-03-2024 Abdomen/Pelvis W IV Cont ONLY Normal [facility] Absolute lymphocyte countOrd ered By: Remus Ungelizabeth on 11-03-2024 Lymphocytes Auto (Unsp spec) [#/Vol] 2.10 10*3/uL 0.83-4.51 [facility] Absolute neutrophil countOrd ered By: Remus Ungur on 11-03-2024 Neutrophils (Bld) [#/Vol] 6.5 10*3/uL 2.0-7.7 [facility] Anion gap in Serum or Plasma Ordered By: Remus Ungur on 11-03-2024 Anion gap [Moles/Vol] 12 mmol/L 5-15 [facility] Automated lymphocyte count a s percentage of total leukocytesOrdered By: Remus Ungelizabeth on 11-03-2024 Lymphocytes/100 WBC Auto (Unsp spec) 22.5 % 19-41 [facility] BUN/creatinine ratioOrdered By: Remus Ungur on 11-03-2024 Urea nitrogen/Creatinine [Mass ratio] 21.4 mg/mg High 10-20 [facility] Basophil percentageOrdered B y: Remus Ungur on 11-03-2024 Basophils/100 WBC (Bld) 0.3 % 0-1 [facility] Bilirubin, totalOrdered By: Remus Ungelizabeth on 11-03-2024 Bilirubin [Mass/Vol] 0.24 mg/dL 0.00-1.30 [facility] CBC W/Diff, Automatedon Absolute Lymph 2.10 X10 3/uL Normal 0.83-4.51 [facility] Comment on above: Performed By: #### L 503.6005, L500.4050, L100.0100, L501.2450, L501.4021 ####[facility] [address] [place], [address] Absolute Neut 6.5 X10 3/uL Normal 2.0-7.7 [facility] Comment on above: Performed By: #### L 503.6005, L500.4050, L100.0100, L501.2450, L501.4021 ####[facility] [address] [place], [address] Basophils/100 WBC (Bld) 0.3 % Normal 0-1 [facility] Comment on above: Performed By: #### L 503.6005, L500.4050, L100.0100, L501.2450, L501.4021 ####[facility] [address] [place], [address] Eosinophils/100 WBC (Bld) 0.9 % Normal 0-5 [facility] Comment on above: Performed By: #### L 503.6005, L500.4050, L100.0100, L501.2450, L501.4021 ####[facility] [address] [place], [address] Erythrocyte distribution width (RBC) [Ratio] 18.3 % High 11.6-14.6 [facility] Comment on above: Performed By: #### L 503.6005, L500.4050, L100.0100, L501.2450, L501.4021 ####[facility] [address] [place], [address] Hematocrit (Bld) [Volume fraction] 42.4 % Normal 40-54 [facility] Comment on above: Performed By: #### L 503.6005, L500.4050, L100.0100, L501.2450, L501.4021 ####[facility] [address] [place], [address] Hemoglobin (Bld) [Mass/Vol] 13.5 g/dL Normal 13.0-16. 5 [facility] Comment on above: Performed By: #### L 503.6005, L500.4050, L100.0100, L501.2450, L501.4021 ####[facility] [address] [place], [address] IG% 0.200 Normal 0.0-0.9 [facility] Comment on above: Result Comment: IG% - Immature Granulocytes (promyelocytes, myelocytes andmetamyelocytes) > 1% indicates that a LEFT SHIFT is Present. Performed By: #### L 503.6005, L500.4050, L100.0100, L501.2450, L501.4021 ####[facility] [address] [place], [address] Lymphocytes/100 WBC (Bld) 22.5 % Normal 19-41 [facility] Comment on above: Performed By: #### L 503.6005, L500.4050, L100.0100, L501.2450, L501.4021 ####[facility] [address] [place], [address] MCH (RBC) [Entitic mass] 25.0 pg Low 27.0-32.0 [facility] Comment on above: Performed By: #### L 503.6005, L500.4050, L100.0100, L501.2450, L501.4021 ####[facility] [address] [place], [address] MCHC (RBC) [Mass/Vol] 31.8 g/dL Low 32-36 [facility] Comment on above: Performed By: #### L 503.6005, L500.4050, L100.0100, L501.2450, L501.4021 ####[facility] [address] [place], [address] MCV (RBC) [Entitic vol] 78.7 fL Low 80-94 [facility] Comment on above: Performed By: #### L 503.6005, L500.4050, L100.0100, L501.2450, L501.4021 ####[facility] [address] [place], [address] Monocytes/100 WBC (Bld) 6.7 % Normal 0-10 [facility] Comment on above: Performed By: #### L 503.6005, L500.4050, L100.0100, L501.2450, L501.4021 ####[facility] [address] [place], [address] Neutrophils/100 WBC (Bld) 69.4 % Normal 47-70 [facility] Comment on above: Performed By: #### L 503.6005, L500.4050, L100.0100, L501.2450, L501.4021 ####[facility] [address] [place], [address] Nucleated RBC (Bld) [#/Vol] 0 10*3/uL Normal 0-5 [facility] Comment on above: Performed By: #### L 503.6005, L500.4050, L100.0100, L501.2450, L501.4021 ####[facility] [address] [place], [address] Platelet mean volume (Bld) [Entitic vol] 9.0 fL Normal 6.2-12.0 [facility] Comment on above: Performed By: #### L 503.6005, L500.4050, L100.0100, L501.2450, L501.4021 ####[facility] [address] [place], [address] Platelets (Bld) [#/Vol] 364 10*3/uL Normal 150-450 [facility] Comment on above: Performed By: #### L 503.6005, L500.4050, L100.0100, L501.2450, L501.4021 ####[facility] [address] [place], [address] RBC (Bld) [#/Vol] 5.39 10*6/uL Normal 4.6-6.2 [facility] Comment on above: Performed By: #### L 503.6005, L500.4050, L100.0100, L501.2450, L501.4021 ####[facility] [address] [place], [address] RDW SD 50.6 fl High 35.1-43.9 [facility] Comment on above: Performed By: #### L 503.6005, L500.4050, L100.0100, L501.2450, L501.4021 ####[facility] [address] [place], [address] WBC (Bld) [#/Vol] 9.3 10*3/uL Normal 4.4-11.0 [facility] Comment on above: Performed By: #### L 503.6005, L500.4050, L100.0100, L501.2450, L501.4021 ####[facility] [address] [place], [address] Carbon dioxide, total [Moles /volume] in Central venous bloodOrdered By: Alma Rosa Pedroza on 11-03-2024 CO2 [Moles/Vol] 25.7 mmol/L 21.0-32.0 [facility] Chest 1 View (Portable)on Chest 1 View (Portable) Normal [facility] Chloride assayOrdered By: Julia Pedroza on 11-03-2024 Chloride [Moles/Vol] 101 mmol/L 98-108 [facility] Comprehensive Metabolic Prof ilon 11-03-2024 Albumin [Mass/Vol] 3.4 g/dL Normal 3.4-4.8 [facility] Comment on above: Performed By: #### L 503.6005, L500.4050, L100.0100, L501.2450, L501.4021 ####[facility] [address] [place], [address] Albumin/Globulin [Mass ratio] 0.8 {ratio} Low 0.9-2.4 [facility] Comment on above: Performed By: #### L 503.6005, L500.4050, L100.0100, L501.2450, L501.4021 ####[facility] [address] [place], [address] ALK PHOS 141 U/L High 40-129 [facility] Comment on above: Performed By: #### L 503.6005, L500.4050, L100.0100, L501.2450, L501.4021 ####[facility] [address] [place], [address] ALT [Catalytic activity/Vol] 8 U/L Normal <=46 [facility] Comment on above: Performed By: #### L 503.6005, L500.4050, L100.0100, L501.2450, L501.4021 ####[facility] [address] [place], [address] AST [Catalytic activity/Vol] 16 U/L Normal <=37 [facility] Comment on above: Performed By: #### L 503.6005, L500.4050, L100.0100, L501.2450, L501.4021 ####[facility] [address] [place], [address] Bilirubin [Mass/Vol] 0.24 mg/dL Normal 0.00-1.30 [facility] Comment on above: Performed By: #### L 503.6005, L500.4050, L100.0100, L501.2450, L501.4021 ####[facility] [address] [place], [address] BUN/CRE 21.4 RATIO High 10-20 [facility] Comment on above: Performed By: #### L 503.6005, L500.4050, L100.0100, L501.2450, L501.4021 ####[facility] [address] [place], [address] Calcium [Mass/Vol] 9.5 mg/dL Normal 7.6-11.0 [facility] Comment on above: Performed By: #### L 503.6005, L500.4050, L100.0100, L501.2450, L501.4021 ####[facility] [address] [place], [address] Chloride [Moles/Vol] 101 mmol/L Normal 98-108 [facility] Comment on above: Performed By: #### L 503.6005, L500.4050, L100.0100, L501.2450, L501.4021 ####[facility] [address] [place], [address] CO2 [Moles/Vol] 25.7 mmol/L Normal 21.0-32.0 [facility] Comment on above: Performed By: #### L 503.6005, L500.4050, L100.0100, L501.2450, L501.4021 ####[facility] [address] [place], [address] Creatinine [Mass/Vol] 0.65 mg/dL Low 0.70-1.20 [facility] Comment on above: Performed By: #### L 503.6005, L500.4050, L100.0100, L501.2450, L501.4021 ####[facility] [address] [place], [address] ECRCL 122.02 ml/min Normal 50-250 [facility] Comment on above: Performed By: #### L 503.6005, L500.4050, L100.0100, L501.2450, L501.4021 ####[facility] [address] [place], [address] GAP 12 Normal 5-15 [facility] Comment on above: Performed By: #### L 503.6005, L500.4050, L100.0100, L501.2450, L501.4021 ####[facility] [address] [place], [address] GFR/1.73 sq M.predicted among non-blacks MDRD (S/P/Bld) [Vol rate/Area] 106 mL/min/{1.73_m2} Normal >60 [facility] Comment on above: Result Comment: mL/m in/1.73m2 CKD-EPI Creatinine Equation (2020) Performed By: #### L 503.6005, L500.4050, L100.0100, L501.2450, L501.4021 ####[facility] [address] [place], [address] Globulin (S) [Mass/Vol] 4.1 g/dL Normal 2.2-4.2 [facility] Comment on above: Performed By: #### L 503.6005, L500.4050, L100.0100, L501.2450, L501.4021 ####[facility] [address] [place], [address] Glucose [Mass/Vol] 101 mg/dL High 70-99 [facility] Comment on above: Performed By: #### L 503.6005, L500.4050, L100.0100, L501.2450, L501.4021 ####[facility] [address] [place], [address] Potassium [Moles/Vol] 3.9 mmol/L Normal 3.3-5.1 [facility] Comment on above: Performed By: #### L 503.6005, L500.4050, L100.0100, L501.2450, L501.4021 ####[facility] [address] [place], [address] Sodium [Moles/Vol] 139 mmol/L Normal 133-145 [facility] Comment on above: Performed By: #### L 503.6005, L500.4050, L100.0100, L501.2450, L501.4021 ####[facility] [address] [place], [address] T PROT 7.5 g/dL Normal 5.9-8.4 [facility] Comment on above: Performed By: #### L 503.6005, L500.4050, L100.0100, L501.2450, L501.4021 ####[facility] [address] [place], [address] Urea nitrogen [Mass/Vol] 14 mg/dL Normal 4-19 [facility] Comment on above: Performed By: #### L 503.6005, L500.4050, L100.0100, L501.2450, L501.4021 ####[facility] [address] [place], [address] Eosinophil percentageOrdered By: Alma Rosa Pedroza on 11-03-2024 Eosinophils/100 WBC (Bld) 0.9 % 0-5 [facility] Erythrocyte distribution wid th ratioOrdered By: Alma Rosa Pedroza on 11-03-2024 Erythrocyte distribution width (RBC) [Ratio] 18.3 % High 11.6-14.6 [facility] Erythrocyte distribution wid th standard deviationOrdered By: [place] Kasia on 11-03-2024 Erythrocyte distribution width (RBC) [Ratio] 50.6 fl High 35.1-43.9 [facility] Glomerular filtration rate ( GFR) estimation/1.73 sq m using serum, plasma, or whole bOrdered By: Alma Rosa Pedroza on 11-03-2024 GFR/1.73 sq M.predicted among non-blacks MDRD (S/P/Bld) [Vol rate/Area] 106 mL/min/{1.73_m2} >60 [facility] Comment on above: mL/min/1.73m2 CKD-EP I Creatinine Equation (2020) H AND P Exam - Hospitaliston 11-03-2024 H&P Exam - Hospitalist Normal [facility] Hematocrit Auto (Bld) [Volum e fraction]Ordered By: Alma Rosa Pedroza on 11-03-2024 Hematocrit (Bld) [Volume fraction] 42.4 % 40-54 [facility] Hemoglobin measurementOrdere d By: Alma Rosa Pedroza on 11-03-2024 Hemoglobin (Bld) [Mass/Vol] 13.5 g/dL 13.0-16. 5 [facility] Immature granulocytes/100 WB C Auto (Bld)Ordered By: Alma Rosa Pedroza on 11-03-2024 Immature granulocytes/100 WBC (Bld) 0.200 % 0.0-0.9 [facility] Comment on above: IG% - Immature Granu locytes (promyelocytes, myelocytes and metamyelocytes) > 1% indicates that a LEFT SHIFT is Present. L499.0042on 11-03-2024 Trop T High Sen 26 ng/L High <=22 [facility] Comment on above: Performed By: #### L 499.0042 ####[facility] [address] [place], [address] L499.0043on 11-03-2024 Trop T High Sen 26 ng/L High <=22 [facility] Comment on above: Performed By: #### L 499.0043 ####[facility] [address] [place], [address] L501.4021on 11-03-2024 Trop T High Sen 27 ng/L High <=22 [facility] Comment on above: Performed By: #### L 503.6005, L500.4050, L100.0100, L501.2450, L501.4021 ####[facility] [address] [place], [address] Laboratory - Chemistry and C hemistry - challengeOrdered By: Alma Rosa Pedroza on 11-03-2024 AST [Catalytic activity/Vol] 16 U/L <38 [facility] Lactic Acidon 11-03-2024 Lactate [Moles/Vol] 1.3 mmol/L Normal 0.0-2.0 [facility] Comment on above: Order Comment: Y Performed By: #### L 503.6005, L500.4050, L100.0100, L501.2450, L501.4021 ####[facility] [address] [place], [address] Lactic acid measurementOrder ed By: Alma Rosa Pedroza on 11-03-2024 Lactate [Moles/Vol] 1.3 mmol/L 0.0-2.0 [facility] Lipaseon 06-08-2025 Lipase [Catalytic activity/Vol] 17 U/L Normal 13-75 [facility] Comment on above: Result Comment: Siri anaya note:LIPASE revised reference range effective 22.New Lipase methodology. Expected to produce lower valuesthan the previous assay method.NEW Reference Range: 13 - 75 U/L Performed By: #### L 503.6005, L500.4050, L100.0100, L501.2450, L501.4021 ####[facility] [address] [place], [address] Lipase measurementOrdered By : Remus Ungur on 11-03-2024 Lipase [Catalytic activity/Vol] 17 U/L 13-75 [facility] Comment on above: Please note:LIPASE r evised reference range effective 22. New Lipase methodology. Expected to produce lower values than the previous assay method. NEW Reference Range: 13 - 75 U/L MCV (mean corpuscular volume ) determinationOrdered By: Remus Ungelizabeth on 11-03-2024 MCV (RBC) [Entitic vol] 78.7 fL Low 80-94 [facility] Mean corpuscular hemoglobin (MCH) determinationOrdered By: Remus Ungur on 11-03-2024 MCH (RBC) [Entitic mass] 25.0 pg Low 27.0-32.0 [facility] Mean corpuscular hemoglobin concentration (MCHC) determinationOrdered By: Remus Ungur on 11-03-2024 MCHC (RBC) [Mass/Vol] 31.8 g/dL Low 32-36 [facility] Mean platelet volume determi nationOrdered By: Remus Ungur on 11-03-2024 Platelet mean volume (Bld) [Entitic vol] 9.0 fL 6.2-12.0 [facility] Monocyte percentageOrdered B y: Remus Ungur on 11-03-2024 Monocytes/100 WBC (Bld) 6.7 % 0-10 [facility] Neutrophil percentageOrdered By: Remus Ungur on 11-03-2024 Neutrophils/100 WBC (Bld) 69.4 % 47-70 [facility] Nucleated red blood cell per centageOrdered By: Remus Ungur on 11-03-2024 Nucleated RBC/100 WBC (Bld) [Ratio] 0 % 0-5 [facility] Platelet countOrdered By: Julia palma Kasia on 11-03-2024 Platelets (Bld) [#/Vol] 364 10*3/uL 150-450 [facility] Potassium measurement (mass/ volume)Ordered By: Alma Rosa Pedroza on 11-03-2024 Potassium (Unsp spec) [Mass/Vol] 3.9 mmol/L 3.3-5.1 [facility] RBC Auto (Bld) [#/Vol]Ordere d By: Alma Rosa Pedroza on 11-03-2024 RBC (Bld) [#/Vol] 5.39 10*6/uL 4.6-6.2 [facility] Serum creatinine measurement (mass/volume)Ordered By: Alma Rosa Pedroza on 11-03-2024 Creatinine [Mass/Vol] 0.65 mg/dL Low 0.70-1.20 [facility] Serum globulin measurementOr dered By: Alma Rosa Pedroza on 11-03-2024 Globulin (S) [Mass/Vol] 4.1 g/dL 2.2-4.2 [facility] Serum glucose measurement (m ass/volume)Ordered By: Alma Rosa Pedroza on 11-03-2024 Glucose [Mass/Vol] 101 mg/dL High 70-99 [facility] Serum or plasma alanine hooper otransferase (ALT) measurementOrdered By: Alma Rosa Pedroza on 11-03-2024 ALT [Catalytic activity/Vol] 8 U/L <47 [facility] Serum or plasma albumin shantal urement (mass/volume)Ordered By: Alma Rosa Pedroza on 11-03-2024 Albumin [Mass/Vol] 3.4 g/dL 3.4-4.8 [facility] Serum or plasma albumin/glob ulin mass ratioOrdered By: Alma Rosa Pedroza on 11-03-2024 Albumin/Globulin [Mass ratio] 0.8 {ratio} Low 0.9-2.4 [facility] Serum or plasma alkaline radha sphatase measurementOrdered By: Alma Rosa Pedroza on 11-03-2024 ALP [Catalytic activity/Vol] 141 U/L High 40-129 [facility] Serum or plasma calcium shantal urement (mass/volume)Ordered By: Alma Rosa Sheehanelizabeth on 11-03-2024 Calcium [Mass/Vol] 9.5 mg/dL 7.6-11.0 [facility] Serum or plasma urea nitroge n measurement (mass/volume)Ordered By: Alma Rosa Sheehanelizabeth on 11-03-2024 Urea nitrogen [Mass/Vol] 14 mg/dL 4-19 [facility] Sodium levelOrdered By: Derek pablo Kasia on 11-03-2024 Sodium [Moles/Vol] 139 mmol/L 133-145 [facility] Total proteinOrdered By: Marquita us Sissyelizabeth on 11-03-2024 Protein [Mass/Vol] 7.5 g/dL 5.9-8.4 [facility] Troponin T.cardiac [Mass/vol ume] in Serum or Plasma by High sensitivity methodOrdered By: Alma Rosa Sheehanelizabeth on 11-03-2024 Troponin T.cardiac High sensitivity method [Mass/Vol] 26 ng/L High <22 [facility] Troponin T.cardiac High sensitivity method [Mass/Vol] 26 ng/L High <22 [facility] Troponin T.cardiac High sensitivity method [Mass/Vol] 27 ng/L High <22 [facility] White blood cell (WBC) count Ordered By: Alma Rosa Kasia on 11-03-2024 WBC (Bld) [#/Vol] 9.3 10*3/uL 4.4-11.0 [facility] Amorphous sediment detection in urine sediment by light microscopyOrdered By: Zhang Chavez on 11-01-2024 Amorphous sediment LM Ql (Urine sed) 1+ [facility] Bilirubin Test strip Ql (U)O rdered By: Zhang Chavez on 11-01-2024 Bilirubin Ql (U) Negative Negative [facility] Emergency Department Summary on 11-01-2024 Emergency Department Summary Normal [facility] Ketones Test strip Ql (U)Ord ered By: Zhang Chavez on 11-01-2024 Ketones Ql (U) Negative Negative [facility] Microscopic analysis of urin e for red blood cells (RBC)Ordered By: Zhang Chavez on 11-01-2024 Microscopic analysis of urine for red blood cells (RBC) 0 SEEN /hpf 0-5 [facility] Mucus LM Ql (Urine sed)Order ed By: Zhang Chavez on 11-01-2024 Mucus Ql (Urine sed) 0 SEEN /hpf [facility] Nitrite Test strip Ql (U)Ord ered By: hZang Chavez on 11-01-2024 Nitrite Ql (U) Positive High Negative [facility] Protein Test strip Ql (U)Ord ered By: Zhang Chavez on 11-01-2024 Protein Ql (U) 100 mg/dl High Negative [facility] Squamous epithelial cells de tection in urine sediment by light microscopyOrdered By: Zhang Chavez on 11-01-2024 Epithelial cells.squamous LM Ql (Urine sed) 0 SEEN /hpf 0-5 [facility] Urinalysis, Completeon 11-01 WBC 0-5 SEEN Normal 0-5 [facility] Comment on above: Order Comment: GOOD TER SPECIMEN Performed By: #### M 100.2200, L400.0001 ####[facility] [address] [place], [address] AMORPHOUS 1+ Normal [facility] Comment on above: Order Comment: GOOD TER SPECIMEN Performed By: #### M 100.2200, L400.0001 ####[facility] [address] [place], [address] BACTERIA 0 SEEN Normal None Seen [facility] Comment on above: Order Comment: GOOD TER SPECIMEN Performed By: #### M 100.2200, L400.0001 ####[facility] [address] [place], [address] EPI,SQUAMOUS 0 SEEN Normal 0-5 [facility] Comment on above: Order Comment: GOOD TER SPECIMEN Performed By: #### M 100.2200, L400.0001 ####[facility] [address] [place], [address] Mucus Ql (Urine sed) 0 SEEN Normal [facility] Comment on above: Order Comment: GOOD TER SPECIMEN Performed By: #### M 100.2200, L400.0001 ####[facility] [address] [place], [address] RBC 0 SEEN Normal 0-5 [facility] Comment on above: Order Comment: GOOD TER SPECIMEN Performed By: #### M 100.2200, L400.0001 ####[facility] [address] [place], [place], [address] Urine clarityOrdered By: Terell Chavez on 11-01-2024 Clarity (U) Clear Clear [facility] Urine color determinationOrd ered By: Zhang Chavez on 11-01-2024 Color (U) Yellow Yellow [facility] Urine cultureOrdered By: Terell Chavez on 11-01-2024 Bacteria identified Cx Nom (U) Pseudomonas aeruginosa Abnormal [facility] Urine glucose detectionOrder ed By: Zhang Chavez on 11-01-2024 Glucose Ql (U) Normal mg/dl Normal [facility] Urine leukocyte esterase det ection by dipstickOrdered By: Zhang Chavez on 11-01-2024 Leukocyte esterase Test strip Ql (U) 500 /ul High Negative [facility] Urine pHOrdered By: Zhang Chavez on 11-01-2024 pH (U) 6.0 [pH] 5.0 - 8.0 [facility] Urine sediment bacteria coun t by microscopy (number/high power field)Ordered By: Zhang Chavez on 11-01-2024 Bacteria LM.HPF (Urine sed) [#/Area] 0 /[HPF] None Seen [facility] Urine specific gravity measu rementOrdered By: Zhang Chavez on 11-01-2024 Specific gravity (U) [Rel density] 1.020 1.002-1.03 0 [facility] Urine urobilinogen measureme ntOrdered By: Zhang Chavez on 11-01-2024 Urobilinogen Ql (U) Normal mg/dl Normal [facility] White blood cell countOrdere d By: Zhang Chavez on 11-01-2024 White blood cell count 0-5 SEEN /hpf 0-5 [facility] Culture, Blood (WB)on 2024 CUB Blood cultures x2, from two different sites No growth in 5 days. Normal [facility] Comment on above: Performed By: #### L 100.0100, L300.3900, L300.4310, M200.1000, L500.4050, L503.6005 ####[facility] [address] [place], [address] Urine Cultureon 09-14-2024 URC Normal [facility] Comment on above: Performed By: #### M 100.2000, M100.2200, M100.3000, L400.0001 ####[facility] [address] [place], [address] Wound Cultureon 09-14-2024 WC Normal [facility] Comment on above: Performed By: #### M 100.2000, M100.2200, M100.3000, L400.0001 ####[facility] [address] [place], [address] Gram Stainon 09-12-2024 GS Positive Normal [facility] Comment on above: Performed By: #### M 100.2000, M100.2200, M100.3000, L400.0001 ####[facility] [address] [place], [address] Absolute lymphocyte countOrd ered By: Alex Sheppard on 09-11-2024 Lymphocytes Auto (Unsp spec) [#/Vol] 2.40 10*3/uL 0.83-4.51 [facility] Absolute neutrophil countOrd ered By: Alex Sheppard on 09-11-2024 Neutrophils (Bld) [#/Vol] 7.6 10*3/uL 2.0-7.7 [facility] Activated partial thrombopla stin time (aPTT) in platelet poor plasma by coagulation aOrdered By: Alex Sheppard on 09-11-2024 aPTT Coag (Bld) [Time] 49.7 s High 24.1-36.2 [facility] Comment on above: Performed By: #### L 100.0100, L300.3900, L300.4310, M200.1000, L500.4050, L503.6005 ####[facility] [address] [place], [place], [address] aPTT Coag (PPP) [Time] 49.7 s High 24.1-36.2 [facility] [facility] Anion gap in Serum or Plasma Ordered By: Alex Sheppard on 09-11-2024 Anion gap [Moles/Vol] 9 mmol/L 5-15 [facility] Automated blood erythrocyte countOrdered By: Alex Sheppard on 09-11-2024 RBC (Bld) [#/Vol] 5.05 10*6/uL Normal 4.6-6.2 [facility] Comment on above: Performed By: #### L 100.0100, L300.3900, L300.4310, M200.1000, L500.4050, L503.6005 ####[facility] [address] [place], [address] Automated blood hematocrit ( percentage)Ordered By: Alex Sheppard on 09-11-2024 Hematocrit (Bld) [Volume fraction] 40.9 % Normal 40-54 [facility] Comment on above: Performed By: #### L 100.0100, L300.3900, L300.4310, M200.1000, L500.4050, L503.6005 ####[facility] [address] [place], [address] Automated lymphocyte count a s percentage of total leukocytesOrdered By: Alex Sheppard on 09-11-2024 Lymphocytes/100 WBC (Bld) 20.8 % Normal 19-41 [facility] Comment on above: Performed By: #### L 100.0100, L300.3900, L300.4310, M200.1000, L500.4050, L503.6005 ####[facility] [address] [place], [address] Lymphocytes/100 WBC Auto (Unsp spec) 20.8 % - [facility] BUN/creatinine ratioOrdered By: Alex Sheppard on 09-11-2024 Urea nitrogen/Creatinine [Mass ratio] 19.5 mg/mg 10-20 [facility] Basophil percentageOrdered B y: Alex Silver on 09-11-2024 Basophils/100 WBC (Bld) 0.4 % Normal 0-1 [facility] Comment on above: Performed By: #### L 100.0100, L300.3900, L300.4310, M200.1000, L500.4050, L503.6005 ####[facility] [address] [place], [place], [id number] Bilirubin Test strip Ql (U)O rdered By: Alex Sheppard on 09-11-2024 Bilirubin Ql (U) Negative Negative [facility] Bilirubin, totalOrdered By: Alex Sheppard on 09-11-2024 Bilirubin [Mass/Vol] mg/dL 0.00-1.30 [facility] Blood cultureOrdered By: Luz Sheppard on 09-11-2024 Bacteria identified Cx Nom (Bld) No growth in 5 days. [facility] CBC W/Diff, Automatedon 04 Absolute Lymph 2.40 X10 3/uL Normal 0.83-4.51 [facility] Comment on above: Performed By: #### L 100.0100, L300.3900, L300.4310, M200.1000, L500.4050, L503.6005 ####[facility] [address] [place], [address] Absolute Neut 7.6 X10 3/uL Normal 2.0-7.7 [facility] Comment on above: Performed By: #### L 100.0100, L300.3900, L300.4310, M200.1000, L500.4050, L503.6005 ####[facility] [address] [place], [place], [id number] IG% 0.400 Normal 0.0-0.9 [facility] Comment on above: Result Comment: IG% - Immature Granulocytes (promyelocytes, myelocytes andmetamyelocytes) > 1% indicates that a LEFT SHIFT is Present. Performed By: #### L 100.0100, L300.3900, L300.4310, M200.1000, L500.4050, L503.6005 ####[facility] [address] [place], [address] Nucleated RBC (Bld) [#/Vol] 0 10*3/uL Normal 0-5 [facility] Comment on above: Performed By: #### L 100.0100, L300.3900, L300.4310, M200.1000, L500.4050, L503.6005 ####[facility] [address] [place], [address] RDW SD 51.1 fl High 35.1-43.9 [facility] Comment on above: Performed By: #### L 100.0100, L300.3900, L300.4310, M200.1000, L500.4050, L503.6005 ####[facility] [address] [place], [address] Calcium oxalate crystals LM Ql (Urine sed)Ordered By: Alex Sheppard on 09-11-2024 Urine Calcium Oxalate Crystals RARE /hpf [facility] Calcium oxalate crystals det ection in urine sediment by light microscopyOrdered By: Alex Sheppard on 09-11-2024 Calcium oxalate crystals LM Ql (Urine sed) RARE /hpf [facility] Carbon dioxide, total [Moles /volume] in Central venous bloodOrdered By: Alex Sheppard on 09-11-2024 CO2 [Moles/Vol] 27.3 mmol/L Normal 21.0-32.0 [facility] Comment on above: Performed By: #### L 100.0100, L300.3900, L300.4310, M200.1000, L500.4050, L503.6005 ####[facility] [address] [place], [address] Chloride assayOrdered By: Ezekiel Sheppard on 09-11-2024 Chloride [Moles/Vol] 103 mmol/L Normal 98-108 [facility] Comment on above: Performed By: #### L 100.0100, L300.3900, L300.4310, M200.1000, L500.4050, L503.6005 ####[facility] [address] [place], [address] Comprehensive Metabolic Prof ilon 09-11-2024 ALK PHOS 146 U/L High 40-129 [facility] Comment on above: Performed By: #### L 100.0100, L300.3900, L300.4310, M200.1000, L500.4050, L503.6005 ####[facility] [address] [place], [address] BUN/CRE 19.5 RATIO Normal 10-20 [facility] Comment on above: Performed By: #### L 100.0100, L300.3900, L300.4310, M200.1000, L500.4050, L503.6005 ####[facility] [address] [place], [address] ECRCL 107.24 ml/min Normal 50-250 [facility] Comment on above: Performed By: #### L 100.0100, L300.3900, L300.4310, M200.1000, L500.4050, L503.6005 ####[facility] [address] [place], [address] GAP 9 Normal 5-15 [facility] Comment on above: Performed By: #### L 100.0100, L300.3900, L300.4310, M200.1000, L500.4050, L503.6005 ####[facility] [address] [place], [address] T BILI < 0.15 Normal 0.00-1.30 [facility] Comment on above: Performed By: #### L 100.0100, L300.3900, L300.4310, M200.1000, L500.4050, L503.6005 ####[facility] [address] [place], [place], [phone] T PROT 6.8 g/dL Normal 5.9-8.4 [facility] Comment on above: Performed By: #### L 100.0100, L300.3900, L300.4310, M200.1000, L500.4050, L503.6005 ####[facility] [address] [place], [place], [id number] Comprehensive Metabolic Prof ilOrdered By: Alex Sheppard on 09-11-2024 AST [Catalytic activity/Vol] 27 U/L Normal <=37 [facility] Comment on above: Performed By: #### L 100.0100, L300.3900, L300.4310, M200.1000, L500.4050, L503.6005 ####[facility] [address] [place], [place], [id number] Emergency Department Summary on 09-11-2024 Emergency Department Summary Normal [facility] Eosinophil percentageOrdered By: Alex Sheppard on 09-11-2024 Eosinophils/100 WBC (Bld) 3.6 % Normal 0-5 [facility] Comment on above: Performed By: #### L 100.0100, L300.3900, L300.4310, M200.1000, L500.4050, L503.6005 ####[facility] [address] [place], [place], [id number] Epithelial cells.squamous LM Ql (Urine sed)Ordered By: Alex Sheppard on 09-11-2024 Epithelial cells.squamous LM.HPF (Urine sed) [#/Area] 0 /[HPF] 0-5 [facility] Erythrocyte distribution wid th (RBC) [Ratio]Ordered By: Alex Sheppard on 09-11-2024 Erythrocyte distribution width (RBC) [Entitic vol] 51.1 fL High 35.1-43.9 [facility] Erythrocyte distribution wid th ratioOrdered By: Alex Sheppard on 09-11-2024 Erythrocyte distribution width (RBC) [Ratio] 17.6 % High 11.6-14.6 [facility] Comment on above: Performed By: #### L 100.0100, L300.3900, L300.4310, M200.1000, L500.4050, L503.6005 ####[facility] [address] [place], [place], [phone] Erythrocyte distribution wid th standard deviationOrdered By: Alex Sheppard on 09-11-2024 Erythrocyte distribution width (RBC) [Ratio] 51.1 fl High 35.1-43.9 [facility] Estimation of creatinine elzbieta aranceOrdered By: Alex Sheppard on 09-11-2024 Estimated Creatinine Clearance Calc 107.24 ml/min 50-250 [facility] GFR/1.73 sq M.predicted cheyanne g non-blacks MDRD (S/P/Bld) [Vol rate/Area]Ordered By: Alex Sheppard on 09-11-2024 Estimated GFR (MDRD) Non-Af Amer 101 >60 [facility] Comment on above: mL/min/1.73m2 CKD-EP I Creatinine Equation (2020) Glomerular filtration rate ( GFR) estimation/1.73 sq m using serum, plasma, or whole bOrdered By: Alex Sheppard on 09-11-2024 GFR/1.73 sq M.predicted among non-blacks MDRD (S/P/Bld) [Vol rate/Area] 101 mL/min/{1.73_m2} Normal >60 [facility] Comment on above: mL/min/1.73m2 CKD-EP I Creatinine Equation (2020) Result Comment: mL/m in/1.73m2 CKD-EPI Creatinine Equation (2020) Performed By: #### L 100.0100, L300.3900, L300.4310, M200.1000, L500.4050, L503.6005 ####[facility] [address] [place], [address] Glucose Ql (U)Ordered By: Ezekiel Sheppard on 09-11-2024 Urine Glucose (UA) Normal mg/dl Normal [facility] Gram stainOrdered By: Alex jaffe on 09-11-2024 Microscopic observation Gram stain Nom (Unsp spec) [facility] Hemoglobin measurementOrdere d By: Alex Sheppard on 09-11-2024 Hemoglobin (Bld) [Mass/Vol] 13.0 g/dL Normal 13.0-16. 5 [facility] Comment on above: Performed By: #### L 100.0100, L300.3900, L300.4310, M200.1000, L500.4050, L503.6005 ####[facility] [address] [place], [address] Immature granulocytes/100 WB C Auto (Bld)Ordered By: Alex Sheppard on 09-11-2024 Immature granulocytes/100 WBC (Bld) 0.400 % 0.0-0.9 [facility] Comment on above: IG% - Immature Granu locytes (promyelocytes, myelocytes and metamyelocytes) > 1% indicates that a LEFT SHIFT is Present. International normalized rat io (INR) calculationOrdered By: Alex Sheppard on 09-11-2024 INR Coag (Bld) [Relative time] 1.0 {INR} [facility] Ketones Test strip Ql (U)Ord ered By: Alex Sheppard on 09-11-2024 Ketones Ql (U) Negative Negative [facility] Lactic acid measurementOrder ed By: Alex Sheppard on 09-11-2024 Lactate [Moles/Vol] 1.4 mmol/L Normal 0.0-2.0 [facility] Comment on above: Order Comment: Y Performed By: #### L 100.0100, L300.3900, L300.4310, M200.1000, L500.4050, L503.6005 ####[facility] [address] [place], [place], [phone] Lymphocytes Auto (Unsp spec) [#/Vol]Ordered By: Alex Sheppard on 04-16-2025 Lymphocytes (Bld) [#/Vol] 2.40 10*3/uL 0.83-4.5 1 [facility] MCV (mean corpuscular volume ) determinationOrdered By: Alex Sheppard on 09-11-2024 MCV (RBC) [Entitic vol] 81.0 fL Normal 80-94 [facility] Comment on above: Performed By: #### L 100.0100, L300.3900, L300.4310, M200.1000, L500.4050, L503.6005 ####[facility] [address] [place], [address] Mean corpuscular hemoglobin (MCH) determinationOrdered By: Alex Sheppard on 09-11-2024 MCH (RBC) [Entitic mass] 25.7 pg Low 27.0-32.0 [facility] Comment on above: Performed By: #### L 100.0100, L300.3900, L300.4310, M200.1000, L500.4050, L503.6005 ####[facility] [address] [facility]. [place], [place], [address] Mean corpuscular hemoglobin concentration (MCHC) determinationOrdered By: Alex Sheppard on 09-11-2024 MCHC (RBC) [Mass/Vol] 31.8 g/dL Low 32-36 [facility] Comment on above: Performed By: #### L 100.0100, L300.3900, L300.4310, M200.1000, L500.4050, L503.6005 ####[facility] [address] [facility] [place], [address] Mean platelet volume determi nationOrdered By: Alex Sheppard on 09-11-2024 Platelet mean volume (Bld) [Entitic vol] 8.6 fL Normal 6.2-12.0 [facility] Comment on above: Performed By: #### L 100.0100, L300.3900, L300.4310, M200.1000, L500.4050, L503.6005 ####[facility] [address] [place], [place], [phone] Microscopic analysis of urin e for red blood cells (RBC)Ordered By: Alex Sheppard on 09-11-2024 Microscopic analysis of urine for red blood cells (RBC) 0-5 SEEN /hpf 0-5 [facility] Urine RBC 0-5 SEEN /hpf 0-5 [facility] Monocyte percentageOrdered B y: Alex Sheppard on 09-11-2024 Monocytes/100 WBC (Bld) 8.6 % Normal 0-10 [facility] Comment on above: Performed By: #### L 100.0100, L300.3900, L300.4310, M200.1000, L500.4050, L503.6005 ####[facility] [address] [place], [place], [phone] Mucus LM Ql (Urine sed)Order ed By: Alex Sheppard on 09-11-2024 Mucus Ql (Urine sed) RARE /hpf [facility] Neutrophil percentageOrdered By: Alex Sheppard on 09-11-2024 Neutrophils/100 WBC (Bld) 66.2 % Normal 47-70 [facility] Comment on above: Performed By: #### L 100.0100, L300.3900, L300.4310, M200.1000, L500.4050, L503.6005 ####[facility] [address] [place], [place], [id number] Nitrite Test strip Ql (U)Ord ered By: Alex Sheppard on 09-11-2024 Nitrite Ql (U) Positive High Negative [facility] Nucleated red blood cell per centageOrdered By: Alex Sheppard on 09-11-2024 Nucleated RBC/100 WBC (Bld) [Ratio] 0 % 0-5 [facility] Pelvis WITH IV Contraston Pelvis WITH IV Contrast Normal [facility] Platelet countOrdered By: Ezekiel Sheppard on 09-11-2024 Platelets (Bld) [#/Vol] 371 10*3/uL Normal 150-450 [facility] Comment on above: Performed By: #### L 100.0100, L300.3900, L300.4310, M200.1000, L500.4050, L503.6005 ####[facility] [address] [place], [address] Potassium measurement (mass/ volume)Ordered By: Alex Sheppard on 09-11-2024 Potassium [Moles/Vol] 4.1 mmol/L Normal 3.3-5.1 [facility] Comment on above: Performed By: #### L 100.0100, L300.3900, L300.4310, M200.1000, L500.4050, L503.6005 ####[facility] [address] [place], [address] Potassium (Unsp spec) [Mass/Vol] 4.1 mmol/L 3.3-5.1 [facility] Protein Test strip Ql (U)Ord ered By: Alex Sheppard on 09-11-2024 Protein Ql (U) 15 mg/dl High Negative [facility] Prothrombin Time w/INRon INR Coag (PPP) [Relative time] 1.0 {INR} Normal [facility] Comment on above: Performed By: #### L 100.0100, L300.3900, L300.4310, M200.1000, L500.4050, L503.6005 ####[facility] [address] [place], [address] Prothrombin timeOrdered By: Alex Sheppard on 09-11-2024 PT Coag (PPP) [Time] 13.7 s Normal 11.7-14.9 [facility] Comment on above: Performed By: #### L 100.0100, L300.3900, L300.4310, M200.1000, L500.4050, L503.6005 ####[facility] [address] [place], [address] Serum creatinine measurement (mass/volume)Ordered By: Alex Sheppard on 09-11-2024 Creatinine [Mass/Vol] 0.75 mg/dL Normal 0.70-1.20 [facility] Comment on above: Performed By: #### L 100.0100, L300.3900, L300.4310, M200.1000, L500.4050, L503.6005 ####[facility] [address] [place], [address] Serum globulin measurementOr dered By: Alex Sheppard on 09-11-2024 Globulin (S) [Mass/Vol] 3.9 g/dL Normal 2.2-4.2 [facility] Comment on above: Performed By: #### L 100.0100, L300.3900, L300.4310, M200.1000, L500.4050, L503.6005 ####[facility] [address] [place], [place], [phone] Serum glucose measurement (m ass/volume)Ordered By: Alex Sheppard on 09-11-2024 Glucose [Mass/Vol] 123 mg/dL High 70-99 [facility] Comment on above: Performed By: #### L 100.0100, L300.3900, L300.4310, M200.1000, L500.4050, L503.6005 ####[facility] [address] [place], [place], [phone] Serum or plasma alanine hooper otransferase (ALT) measurementOrdered By: Alex Sheppard on 09-11-2024 ALT [Catalytic activity/Vol] 19 U/L Normal <=46 [facility] Comment on above: Performed By: #### L 100.0100, L300.3900, L300.4310, M200.1000, L500.4050, L503.6005 ####[facility] [address] [place], [place], [phone] Serum or plasma albumin shantal urement (mass/volume)Ordered By: Alex Sheppard on 09-11-2024 Albumin [Mass/Vol] 3.0 g/dL Low 3.4-4.8 [facility] Comment on above: Performed By: #### L 100.0100, L300.3900, L300.4310, M200.1000, L500.4050, L503.6005 ####[facility] [address] [place], [place], [phone] Serum or plasma albumin/glob ulin mass ratioOrdered By: Alex Sheppard on 09-11-2024 Albumin/Globulin [Mass ratio] 0.8 {ratio} Low 0.9-2.4 [facility] Comment on above: Performed By: #### L 100.0100, L300.3900, L300.4310, M200.1000, L500.4050, L503.6005 ####[facility] [address] [place], [address] Serum or plasma alkaline radha sphatase measurementOrdered By: Alex Sheppard on 09-11-2024 ALP [Catalytic activity/Vol] 146 U/L High 40-129 [facility] Serum or plasma calcium shantal urement (mass/volume)Ordered By: Alex Sheppard on 09-11-2024 Calcium [Mass/Vol] 8.9 mg/dL Normal 7.6-11.0 [facility] Comment on above: Performed By: #### L 100.0100, L300.3900, L300.4310, M200.1000, L500.4050, L503.6005 ####[facility] [address] [place], [address] Serum or plasma urea nitroge n measurement (mass/volume)Ordered By: Alex Sheppard on 09-11-2024 Urea nitrogen [Mass/Vol] 15 mg/dL Normal 4-19 [facility] Comment on above: Performed By: #### L 100.0100, L300.3900, L300.4310, M200.1000, L500.4050, L503.6005 ####[facility] [address] [place], [address] Sodium levelOrdered By: Alex Sheppard on 09-11-2024 Sodium [Moles/Vol] 139 mmol/L Normal 133-145 [facility] Comment on above: Performed By: #### L 100.0100, L300.3900, L300.4310, M200.1000, L500.4050, L503.6005 ####[facility] [address] [place], [address] Squamous epithelial cells de tection in urine sediment by light microscopyOrdered By: Alex Sheppard on 09-11-2024 Epithelial cells.squamous LM Ql (Urine sed) 0 SEEN /hpf 0-5 [facility] Total proteinOrdered By: Luz Sheppard on 09-11-2024 Protein [Mass/Vol] 6.8 g/dL 5.9-8.4 [facility] Urinalysis, Completeon 09-11 BACTERIA 2+ /hpf Normal None Seen [facility] Comment on above: Order Comment: GOOD TER SPECIMEN Performed By: #### M 100.1999, M100.2200, M100.3000, L400.0001 ####[facility] [address] [place], [address] CA OX CRYSTAL RARE Normal [facility] Comment on above: Order Comment: GOOD TER SPECIMEN Performed By: #### M 100.1999, M100.2200, M100.3000, L400.0001 ####[facility] [address] [place], [address] Mucus Ql (Urine sed) RARE Normal [facility] Comment on above: Order Comment: GOOD TER SPECIMEN Performed By: #### M 100.1999, M100.2200, M100.3000, L400.0001 ####[facility] [address] [place], [address] RBC 0-5 SEEN Normal 0-5 [facility] Comment on above: Order Comment: GOOD TER SPECIMEN Performed By: #### M 100.2000, M100.2200, M100.3000, L400.0001 ####[facility] [address] [place], [address] WBC 5-10 SEEN Normal 0-5 [facility] Comment on above: Order Comment: GOOD TER SPECIMEN Performed By: #### M 100.2000, M100.2200, M100.3000, L400.0001 ####[facility] [address] [place], [address] EPI,SQUAMOUS 0 SEEN Normal 0-5 [facility] Comment on above: Order Comment: GOOD TER SPECIMEN Performed By: #### M 100.2000, M100.2200, M100.3000, L400.0001 ####[facility] [address] [place], [address] Urine blood detectionOrdered By: Alex Sheppard on 09-11-2024 Urine Occult Blood 10 /ul High Negative [facility] Urine clarityOrdered By: Luz Sheppard on 09-11-2024 Clarity (U) Clear Clear [facility] Urine color determinationOrd ered By: Alex Sheppard on 09-11-2024 Color (U) Yellow Yellow [facility] Urine cultureOrdered By: Luz Sheppard on 09-11-2024 Bacteria identified Cx Nom (U) Pseudomonas aeruginosa Abnormal [facility] Urine glucose detectionOrder ed By: Alex Sheppard on 09-11-2024 Glucose Ql (U) Normal mg/dl Normal [facility] Urine leukocyte esterase det ection by dipstickOrdered By: Alex Sheppard on 09-11-2024 Leukocyte esterase Test strip Ql (U) 100 /ul High Negative [facility] Urine pHOrdered By: Alex juares on 09-11-2024 pH (U) 6.0 [pH] 5.0 - 8.0 [facility] Urine sediment bacteria coun t by microscopy (number/high power field)Ordered By: Alex Sheppard on 09-11-2024 Bacteria LM.HPF (Urine sed) [#/Area] 2 /[HPF] None Seen [facility] Urine specific gravity measu rementOrdered By: Alex Sheppard on 09-11-2024 Specific gravity (U) [Rel density] 1.015 1.002-1.03 0 [facility] Urine urobilinogen measureme ntOrdered By: Alex Sheppard on 09-11-2024 Urobilinogen Ql (U) Normal mg/dl Normal [facility] Urobilinogen Ql (U)Ordered B y: Alex Sheppard on 09-11-2024 Urine Urobilinogen Normal mg/dl Normal [facility] White blood cell (WBC) count Ordered By: Alex Sheppard on 09-11-2024 WBC (Bld) [#/Vol] 11.6 10*3/uL High 4.4-11.0 [facility] Comment on above: Performed By: #### L 100.0100, L300.3900, L300.4310, M200.1000, L500.4050, L503.6005 ####[facility] [address] [facility] [place], [address] White blood cell countOrdere d By: Alex Sheppard on 09-11-2024 Urine WBC 5-10 SEEN /hpf 0-5 [facility] White blood cell count 5-10 SEEN /hpf 0-5 [facility] Absolute lymphocyte countOrd ered By: Rico Moore on 07-14-2024 Lymphocytes Auto (Unsp spec) [#/Vol] 2.44 10*3/uL 0.83-4.51 [facility] Absolute neutrophil countOrd ered By: Rico Moore on 07-14-2024 Neutrophils (Bld) [#/Vol] 9.1 10*3/uL High 2.0-7.7 [facility] Automated lymphocyte count a s percentage of total leukocytesOrdered By: Rico Moore on 07-14-2024 Lymphocytes/100 WBC Auto (Unsp spec) 19.4 % 19-41 [facility] Bacteria LM.HPF (Urine sed) [#/Area]Ordered By: Rico Moore on 07-14-2024 Urine Bacteria RARE /hpf None Seen [facility] Basic Metabolic Profile (BMP )on 07-14-2024 BUN/CRE 21.2 RATIO High 10-20 [facility] Comment on above: Performed By: #### L 500.3400, L500.2500, L100.0100, L501.2450 ####[facility] [address] [place], [address] CA,Total 9.5 mg/dL Normal 8.5-10.1 [facility] Comment on above: Performed By: #### L 500.3400, L500.2500, L100.0100, L501.2450 ####[facility] [address] [place], [address] Chloride [Moles/Vol] 103 mmol/L Normal 98-107 [facility] Comment on above: Performed By: #### L 500.3400, L500.2500, L100.0100, L501.2450 ####[facility] [address] [place], [address] CO2 [Moles/Vol] 26.0 mmol/L Normal 21.0-32.0 [facility] Comment on above: Performed By: #### L 500.3400, L500.2500, L100.0100, L501.2450 ####[facility] [address] [place], [address] Creatinine [Mass/Vol] 0.66 mg/dL Low 0.70-1.30 [facility] Comment on above: Result Comment: The validity of the calculated GFR GFRAA in patients over70 years has not been determined. Clinical correlation isessential. Performed By: #### L 500.3400, L500.2500, L100.0100, L501.2450 ####[facility] [address] [place], [address] ECRCL 125.25 ml/min Normal [facility] Comment on above: Performed By: #### L 500.3400, L500.2500, L100.0100, L501.2450 ####[facility] [address] [place], [address] EST GFR - AA 156 mL/min Normal >60 [facility] Comment on above: Result Comment: Afri can Mont[place] GFR Calc Performed By: #### L 500.3400, L500.2500, L100.0100, L501.2450 ####[facility] [address] [place], [address] GAP 9 Normal 5-15 [facility] Comment on above: Performed By: #### L 500.3400, L500.2500, L100.0100, L501.2450 ####[facility] [address] [place], [address] GFR/1.73 sq M.predicted among non-blacks MDRD (S/P/Bld) [Vol rate/Area] 129 mL/min/{1.73_m2} Normal >60 [facility] Comment on above: Result Comment: Non- GFR Calc Performed By: #### L 500.3400, L500.2500, L100.0100, L501.2450 ####[facility] [address] [place], [address] Glucose [Mass/Vol] 110 mg/dL High 74-106 [facility] Comment on above: Result Comment: Fast ing Glucose result from 100 to 125 mg/dLsuggests IMPAIRED HOMEOSTASIS per A.D.A. criteria. Performed By: #### L 500.3400, L500.2500, L100.0100, L501.2450 ####[facility] [address] [place], [address] Potassium [Moles/Vol] 3.6 mmol/L Normal 3.5-5.1 [facility] Comment on above: Performed By: #### L 500.3400, L500.2500, L100.0100, L501.2450 ####[facility] [address] [place], [address] Sodium [Moles/Vol] 139 mmol/L Normal 136-145 [facility] Comment on above: Performed By: #### L 500.3400, L500.2500, L100.0100, L501.2450 ####[facility] [address] [place], [address] Urea nitrogen [Mass/Vol] 14 mg/dL Normal 7-18 [facility] Comment on above: Performed By: #### L 500.3400, L500.2500, L100.0100, L501.2450 ####[facility] [address] [place], [address] Basophil percentageOrdered B y: Rico Moore on 07-14-2024 Basophils/100 WBC (Bld) 0.6 % 0-1 [facility] Bilirubin Test strip Ql (U)O rdered By: Rico Moore on 07-14-2024 Bilirubin Ql (U) Negative Negative [facility] Bilirubin directOrdered By: Rico Moore on 07-14-2024 Bilirubin.direct [Mass/Vol] 0.13 mg/dL 0.00-0.3 0 [facility] Bilirubin, totalOrdered By: Rico Moore on 07-14-2024 Bilirubin [Mass/Vol] 0.30 mg/dL 0.20-1.00 [facility] Comment on above: For patients on eltr ombopag therapy, use of Dimension [place] TBIL is not recommended. Blood urea nitrogen (BUN)/cr eatinine ratioOrdered By: Rico Moore on 07-14-2024 Urea nitrogen/Creatinine [Mass ratio] 21.2 mg/mg High 10-20 [facility] CBC W/Diff, Automatedon 06-29 Absolute Lymph 2.44 X10 3/uL Normal 0.83-4.51 [facility] Comment on above: Performed By: #### L 500.3400, L500.2500, L100.0100, L501.2450 ####[facility] [address] [place], [address] Absolute Neut 9.1 X10 3/uL High 2.0-7.7 [facility] Comment on above: Performed By: #### L 500.3400, L500.2500, L100.0100, L501.2450 ####[facility] [address] [place], [address] Basophils/100 WBC (Bld) 0.6 % Normal 0-1 [facility] Comment on above: Performed By: #### L 500.3400, L500.2500, L100.0100, L501.2450 ####[facility] [address] [place], [address] Eosinophils/100 WBC (Bld) 1.4 % Normal 0-5 [facility] Comment on above: Performed By: #### L 500.3400, L500.2500, L100.0100, L501.2450 ####[facility] [address] [place], [address] Erythrocyte distribution width (RBC) [Ratio] 15.9 % High 11.6-14.6 [facility] Comment on above: Performed By: #### L 500.3400, L500.2500, L100.0100, L501.2450 ####[facility] [address] [place], [address] Hematocrit (Bld) [Volume fraction] 42.8 % Normal 40-54 [facility] Comment on above: Performed By: #### L 500.3400, L500.2500, L100.0100, L501.2450 ####[facility] [address] [place], [address] Hemoglobin (Bld) [Mass/Vol] 14.0 g/dL Normal 13.0-16. 5 [facility] Comment on above: Performed By: #### L 500.3400, L500.2500, L100.0100, L501.2450 ####[facility] [address] [place], [address] IG% 0.600 Normal 0.0-0.9 [facility] Comment on above: Result Comment: IG% - Immature Granulocytes (promyelocytes, myelocytes andmetamyelocytes) > 1% indicates that a LEFT SHIFT is Present. Performed By: #### L 500.3400, L500.2500, L100.0100, L501.2450 ####[facility] [address] [place], [address] Lymphocytes/100 WBC (Bld) 19.4 % Normal 19-41 [facility] Comment on above: Performed By: #### L 500.3400, L500.2500, L100.0100, L501.2450 ####[facility] [address] [place], [address] MCH (RBC) [Entitic mass] 27.1 pg Normal 27.0-32.0 [facility] Comment on above: Performed By: #### L 500.3400, L500.2500, L100.0100, L501.2450 ####[facility] [address] [place], [address] MCHC (RBC) [Mass/Vol] 32.7 g/dL Normal 32-36 [facility] Comment on above: Performed By: #### L 500.3400, L500.2500, L100.0100, L501.2450 ####[facility] [address] [place], [address] MCV (RBC) [Entitic vol] 82.8 fL Normal 80-94 [facility] Comment on above: Performed By: #### L 500.3400, L500.2500, L100.0100, L501.2450 ####[facility] [address] [place], [address] Monocytes/100 WBC (Bld) 5.9 % Normal 0-10 [facility] Comment on above: Performed By: #### L 500.3400, L500.2500, L100.0100, L501.2450 ####[facility] [address] [place], [address] Neutrophils/100 WBC (Bld) 72.1 % High 47-70 [facility] Comment on above: Performed By: #### L 500.3400, L500.2500, L100.0100, L501.2450 ####[facility] [address] [place], [address] Nucleated RBC (Bld) [#/Vol] 0 10*3/uL Normal 0-5 [facility] Comment on above: Performed By: #### L 500.3400, L500.2500, L100.0100, L501.2450 ####[facility] [address] [place], [address] Platelet mean volume (Bld) [Entitic vol] 8.9 fL Normal 6.2-12.0 [facility] Comment on above: Performed By: #### L 500.3400, L500.2500, L100.0100, L501.2450 ####[facility] [address] [place], [address] Platelets (Bld) [#/Vol] 487 10*3/uL High 150-450 [facility] Comment on above: Performed By: #### L 500.3400, L500.2500, L100.0100, L501.2450 ####[facility] [address] [place], [address] RBC (Bld) [#/Vol] 5.17 10*6/uL Normal 4.6-6.2 [facility] Comment on above: Performed By: #### L 500.3400, L500.2500, L100.0100, L501.2450 ####[facility] [address] [place], [address] RDW SD 47.8 fl High 35.1-43.9 [facility] Comment on above: Performed By: #### L 500.3400, L500.2500, L100.0100, L501.2450 ####[facility] [address] [place], [address] WBC (Bld) [#/Vol] 12.6 10*3/uL High 4.4-11.0 [facility] Comment on above: Performed By: #### L 500.3400, L500.2500, L100.0100, L501.2450 ####[facility] [address] [place], [address] Calcium oxalate crystals LM Ql (Urine sed)Ordered By: Rico Moore on 07-14-2024 Urine Calcium Oxalate Crystals RARE /hpf [facility] Calcium oxalate crystals det ection in urine sediment by light microscopyOrdered By: Rico Moore on 07-14-2024 Calcium oxalate crystals LM Ql (Urine sed) RARE /hpf [facility] Carbon dioxide measurementOr dered By: Rico Moore on 07-14-2024 CO2 [Moles/Vol] 26.0 mmol/L 21.0-32.0 [facility] Chest 1 View (Portable)on Chest 1 View (Portable) Normal [facility] Chloride measurementOrdered By: Rico Moore on 07-14-2024 Chloride [Moles/Vol] 103 mmol/L 98-107 [facility] Emergency Department Summary on 07-14-2024 Emergency Department Summary Normal [facility] Eosinophil percentageOrdered By: Rico Moore on 07-14-2024 Eosinophils/100 WBC (Bld) 1.4 % 0-5 [facility] Epithelial cells.squamous LM Ql (Urine sed)Ordered By: Rico Moore on 07-14-2024 Epithelial cells.squamous LM.HPF (Urine sed) [#/Area] 0 /[HPF] 0-5 [facility] Erythrocyte distribution wid th (RBC) [Ratio]Ordered By: Rico Moore on 07-14-2024 Erythrocyte distribution width (RBC) [Entitic vol] 47.8 fL High 35.1-43.9 [facility] Erythrocyte distribution wid th ratioOrdered By: Rico Moore on 07-14-2024 Erythrocyte distribution width (RBC) [Ratio] 15.9 % High 11.6-14.6 [facility] Erythrocyte distribution wid th standard deviationOrdered By: Rico Moore on 07-14-2024 Erythrocyte distribution width (RBC) [Ratio] 47.8 fl High 35.1-43.9 [facility] Estimated glomerular filtrat ion rate (GFR) AmericanOrdered By: Rico Moore on 07-14-2024 Estimated GFR (MDRD) Amer 156 mL/min >60 [facility] Comment on above: GFR Calc Estimation of creatinine elzbieta aranceOrdered By: Rico Moore on 07-14-2024 Estimated Creatinine Clearance Calc 125.25 ml/min [facility] Glomerular filtration rate ( GFR) estimationOrdered By: Rico Moore on 07-14-2024 Estimated GFR (MDRD) Non-Af Amer 129 mL/min >60 [facility] Comment on above: Non- GFR Calc GFR/1.73 sq M.predicted among non-blacks MDRD (S/P/Bld) [Vol rate/Area] 129 mL/min/{1.73_m2} >60 [facility] Comment on above: Non- GFR Calc Glucose Ql (U)Ordered By: Thomas Moore on 07-14-2024 Urine Glucose (UA) Normal mg/dl Normal [facility] Glucose measurementOrdered B y: Rico Moore on 07-14-2024 Glucose [Mass/Vol] 110 mg/dL High 74-106 [facility] Comment on above: Fasting Glucose resu lt from 100 to 125 mg/dL suggests IMPAIRED HOMEOSTASIS per A.D.A. criteria. Hematocrit Auto (Bld) [Volum e fraction]Ordered By: Rico Moore on 07-14-2024 Hematocrit (Bld) [Volume fraction] 42.8 % 40-54 [facility] Hemoglobin measurementOrdere d By: Rico Moore on 07-14-2024 Hemoglobin (Bld) [Mass/Vol] 14.0 g/dL 13.0-16. 5 [facility] Immature granulocytes/100 WB C Auto (Bld)Ordered By: Rico Moore on 07-14-2024 Immature granulocytes/100 WBC (Bld) 0.600 % 0.0-0.9 [facility] Comment on above: IG% - Immature Granu locytes (promyelocytes, myelocytes and metamyelocytes) > 1% indicates that a LEFT SHIFT is Present. Ketones Test strip Ql (U)Ord ered By: Rico Moore on 07-14-2024 Ketones Ql (U) 150 mg/dl Abnormal Negative [facility] Comment on above: CRITICAL VALUE *HCAL LED TO GEORGE BARONE07/14/24 0758 Erica Bianchi.RESULTS READ BACK BY SAME. Laboratory - Chemistry and C hemistry - challengeOrdered By: Rico Moore on 07-14-2024 AST [Catalytic activity/Vol] 20 U/L 15-37 [facility] Lipaseon 07-14-2024 Lipase [Catalytic activity/Vol] 20 U/L Low 73-393 [facility] Comment on above: Performed By: #### L 500.3400, L500.2500, L100.0100, L501.2450 ####[facility] [address] [place], [place], [id number] Lipase measurementOrdered By : Rico Moore on 07-14-2024 Lipase [Catalytic activity/Vol] 20 U/L Low 73-393 [facility] Liver Profileon 07-14-2024 Albumin [Mass/Vol] 2.5 g/dL Low 3.2-5.0 [facility] Comment on above: Performed By: #### L 500.3400, L500.2500, L100.0100, L501.2450 ####[facility] [address] [place], [place], [id number] ALK P 117 U/L Normal 45-117 [facility] Comment on above: Performed By: #### L 500.3400, L500.2500, L100.0100, L501.2450 ####[facility] [address] [place], [address] ALT [Catalytic activity/Vol] 19 U/L Normal 16-61 [facility] Comment on above: Performed By: #### L 500.3400, L500.2500, L100.0100, L501.2450 ####[facility] [address] [place], [address] AST [Catalytic activity/Vol] 20 U/L Normal 15-37 [facility] Comment on above: Performed By: #### L 500.3400, L500.2500, L100.0100, L501.2450 ####[facility] [address] [place], [address] Bilirubin [Mass/Vol] 0.30 mg/dL Normal 0.20-1.00 [facility] Comment on above: Result Comment: For patients on eltrombopag therapy, use of Dimension [place] TBIL is not recommended. Performed By: #### L 500.3400, L500.2500, L100.0100, L501.2450 ####[facility] [address] [place], [address] Bilirubin.direct [Mass/Vol] 0.13 mg/dL Normal 0.00-0.3 0 [facility] Comment on above: Performed By: #### L 500.3400, L500.2500, L100.0100, L501.2450 ####[facility] [address] [place], [address] Globulin (S) [Mass/Vol] 5.2 g/dL High 2.2-4.2 [facility] Comment on above: Performed By: #### L 500.3400, L500.2500, L100.0100, L501.2450 ####[facility] [address] [place], [address] T PROT 7.7 g/dL Normal 6.4-8.2 [facility] Comment on above: Performed By: #### L 500.3400, L500.2500, L100.0100, L501.2450 ####[facility] [address] [place], [address] Lymphocytes Auto (Unsp spec) [#/Vol]Ordered By: Rico Moore on 07-14-2024 Lymphocytes (Bld) [#/Vol] 2.44 10*3/uL 0.83-4.5 1 [facility] Lymphocytes/100 WBC Auto (Un sp spec)Ordered By: Rico Moore on 07-14-2024 Lymphocytes/100 WBC (Bld) 19.4 % 19-41 [facility] MCV (mean corpuscular volume ) determinationOrdered By: Rico Moore on 07-14-2024 MCV (RBC) [Entitic vol] 82.8 fL 80-94 [facility] Mean corpuscular hemoglobin (MCH) determinationOrdered By: Rico Moore on 07-14-2024 MCH (RBC) [Entitic mass] 27.1 pg 27.0-32.0 [facility] Mean corpuscular hemoglobin concentration (MCHC) determinationOrdered By: Rico Moore on 07-14-2024 MCHC (RBC) [Mass/Vol] 32.7 g/dL 32-36 [facility] Mean platelet volume determi nationOrdered By: Rico Moore on 07-14-2024 Platelet mean volume (Bld) [Entitic vol] 8.9 fL 6.2-12.0 [facility] Microscopic analysis of urin e for red blood cells (RBC)Ordered By: Rico Moore on 07-14-2024 Microscopic analysis of urine for red blood cells (RBC) 0 SEEN /hpf 0-5 [facility] Urine RBC 0 SEEN /hpf 0-5 [facility] Monocyte percentageOrdered B y: Rico Moore on 07-14-2024 Monocytes/100 WBC (Bld) 5.9 % 0-10 [facility] Mucus LM Ql (Urine sed)Order ed By: Rico Moore on 07-14-2024 Mucus Ql (Urine sed) 0 SEEN /hpf [facility] Neutrophil percentageOrdered By: Rico Moore on 07-14-2024 Neutrophils/100 WBC (Bld) 72.1 % High 47-70 [facility] Nitrite Test strip Ql (U)Ord ered By: Rico Moore on 07-14-2024 Nitrite Ql (U) Positive High Negative [facility] Nucleated red blood cell per centageOrdered By: Rico Moore on 07-14-2024 Nucleated RBC/100 WBC (Bld) [Ratio] 0 % 0-5 [facility] Platelet countOrdered By: Thomas Moore on 07-14-2024 Platelets (Bld) [#/Vol] 487 10*3/uL High 150-450 [facility] Potassium measurementOrdered By: Rico Moore on 07-14-2024 Potassium [Moles/Vol] 3.6 mmol/L 3.5-5.1 [facility] Protein Test strip Ql (U)Ord ered By: Rico Moore on 07-14-2024 Protein Ql (U) 100 mg/dl High Negative [facility] RBC Auto (Bld) [#/Vol]Ordere d By: Rico Moore on 07-14-2024 RBC (Bld) [#/Vol] 5.17 10*6/uL 4.6-6.2 [facility] Serum anion gap measurementO rdered By: Rico Moore on 07-14-2024 Anion gap [Moles/Vol] 9 mmol/L 5-15 [facility] Serum globulin measurementOr dered By: Rico Moore on 07-14-2024 Globulin (S) [Mass/Vol] 5.2 g/dL High 2.2-4.2 [facility] Serum or plasma alanine hooper otransferase (ALT) measurementOrdered By: Rico Moore on 07-14-2024 ALT [Catalytic activity/Vol] 19 U/L 16-61 [facility] Serum or plasma albumin shantal urement (mass/volume)Ordered By: Rico Moore on 07-14-2024 Albumin [Mass/Vol] 2.5 g/dL Low 3.2-5.0 [facility] Serum or plasma alkaline radha sphatase measurementOrdered By: Rico Moore on 07-14-2024 ALP [Catalytic activity/Vol] 117 U/L 45-117 [facility] Serum or plasma calcium shantal urement (mass/volume)Ordered By: Rico Moore on 07-14-2024 Calcium [Mass/Vol] 9.5 mg/dL 8.5-10.1 [facility] Serum or plasma creatinine m easurement (mass/volume)Ordered By: Rico Moore on 07-14-2024 Creatinine [Mass/Vol] 0.66 mg/dL Low 0.70-1.30 [facility] Comment on above: The validity of the calculated GFR & GFRAA in patients over 70 years has not been determined. Clinical correlation is essential. Serum or plasma urea nitroge n measurement (mass/volume)Ordered By: Rico Mooer on 07-14-2024 Urea nitrogen [Mass/Vol] 14 mg/dL 7-18 [facility] Sodium levelOrdered By: Bhaskar Moore on 07-14-2024 Sodium [Moles/Vol] 139 mmol/L 136-145 [facility] Squamous epithelial cells de tection in urine sediment by light microscopyOrdered By: Rico Moore on 07-14-2024 Epithelial cells.squamous LM Ql (Urine sed) 0-5 SEEN /hpf 0-5 [facility] Total proteinOrdered By: Charles Moore on 07-14-2024 Protein [Mass/Vol] 7.7 g/dL 6.4-8.2 [facility] Urinalysis, Completeon 07-14 RBC 0 SEEN Normal 0-5 [facility] Comment on above: Order Comment: GOOD TER SPECIMEN Performed By: #### L 400.0001 ####[facility] [address] [place], [address] BACTERIA RARE Normal None Seen [facility] Comment on above: Order Comment: GOOD TER SPECIMEN Performed By: #### L 400.0001 ####[facility] [address] [place], [address] CA OX CRYSTAL RARE Normal [facility] Comment on above: Order Comment: GOOD TER SPECIMEN Performed By: #### L 400.0001 ####[facility] [address] [place], [address] EPI,SQUAMOUS 0-5 SEEN Normal 0-5 [facility] Comment on above: Order Comment: GOOD TER SPECIMEN Performed By: #### L 400.0001 ####[facility] [address] [place], [address] WBC >100 SEEN Normal 0-5 [facility] Comment on above: Order Comment: GOOD TER SPECIMEN Performed By: #### L 400.0001 ####[facility] [address] [place], [address] Mucus Ql (Urine sed) 0 SEEN Normal [facility] Comment on above: Order Comment: GOOD TER SPECIMEN Performed By: #### L 400.0001 ####[facility] [address] [place], [address] Urine blood detectionOrdered By: Rico Moore on 07-14-2024 Urine Occult Blood 50 /ul High Negative [facility] Urine clarityOrdered By: Charles Moore on 07-14-2024 Clarity (U) Cloudy Clear [facility] Urine color determinationOrd ered By: Rico Moore on 07-14-2024 Color (U) Yellow Yellow [facility] Urine glucose detectionOrder ed By: Rico Moore on 07-14-2024 Glucose Ql (U) Normal mg/dl Normal [facility] Urine leukocyte esterase det ection by dipstickOrdered By: Rico Moore on 07-14-2024 Leukocyte esterase Test strip Ql (U) 500 /ul High Negative [facility] Urine pHOrdered By: Rico vang on 07-14-2024 pH (U) 5.0 [pH] 5.0 - 8.0 [facility] Urine sediment bacteria coun t by microscopy (number/high power field)Ordered By: Rico Moore on 07-14-2024 Bacteria LM.HPF (Urine sed) [#/Area] RARE /hpf None Seen [facility] Urine specific gravity measu rementOrdered By: Rico Moore on 07-14-2024 Specific gravity (U) [Rel density] 1.025 1.002-1.03 0 [facility] Urine urobilinogen measureme ntOrdered By: Rico Moore on 07-14-2024 Urobilinogen Ql (U) Normal mg/dl Normal [facility] Urobilinogen Ql (U)Ordered B y: Rico Moore on 07-14-2024 Urine Urobilinogen Normal mg/dl Normal [facility] White blood cell (WBC) count Ordered By: Rico Moore on 07-14-2024 WBC (Bld) [#/Vol] 12.6 10*3/uL High 4.4-11.0 [facility] White blood cell countOrdere d By: Rico Moore on 07-14-2024 Urine WBC >100 SEEN /hpf 0-5 [facility] White blood cell count >100 SEEN /hpf 0-5 [facility] 12 Lead EKGon 07-13-2024 12 Lead EKG Normal [facility] Absolute lymphocyte countOrd ered By: Richie Borden on 07-13-2024 Lymphocytes Auto (Unsp spec) [#/Vol] 3.25 10*3/uL 0.83-4.51 [facility] Absolute neutrophil countOrd ered By: Richie Borden on 07-13-2024 Neutrophils (Bld) [#/Vol] 9.2 10*3/uL High 2.0-7.7 [facility] Automated lymphocyte count a s percentage of total leukocytesOrdered By: Richie Borden on 07-13-2024 Lymphocytes/100 WBC Auto (Unsp spec) 22.6 % 19-41 [facility] Basic Metabolic Profile (BMP )on 07-13-2024 BUN/CRE 17.5 RATIO Normal 10-20 [facility] Comment on above: Order Comment: 'TROP ' Serial specimen #1, #2 or #3: 1 Performed By: #### L 501.4020, L500.3400, L501.2450, L100.0100, L500.2500, L300.8000 ####[facility] [address] [place], [address] CA,Total 9.4 mg/dL Normal 8.5-10.1 [facility] Comment on above: Order Comment: 'TROP ' Serial specimen #1, #2 or #3: 1 Performed By: #### L 501.4020, L500.3400, L501.2450, L100.0100, L500.2500, L300.8000 ####[facility] [address] [place], [address] Chloride [Moles/Vol] 104 mmol/L Normal 98-107 [facility] Comment on above: Order Comment: 'TROP ' Serial specimen #1, #2 or #3: 1 Performed By: #### L 501.4020, L500.3400, L501.2450, L100.0100, L500.2500, L300.8000 ####[facility] [address] [place], [address] CO2 [Moles/Vol] 27.0 mmol/L Normal 21.0-32.0 [facility] Comment on above: Order Comment: 'TROP ' Serial specimen #1, #2 or #3: 1 Performed By: #### L 501.4020, L500.3400, L501.2450, L100.0100, L500.2500, L300.8000 ####[facility] [address] [place], [address] Creatinine [Mass/Vol] 0.63 mg/dL Low 0.70-1.30 [facility] Comment on above: Order Comment: 'TROP ' Serial specimen #1, #2 or #3: 1 Result Comment: The validity of the calculated GFR GFRAA in patients over70 years has not been determined. Clinical correlation isessential. Performed By: #### L 501.4020, L500.3400, L501.2450, L100.0100, L500.2500, L300.8000 ####[facility] [address] [place], [address] ECRCL 120.02 ml/min Normal [facility] Comment on above: Order Comment: 'TROP ' Serial specimen #1, #2 or #3: 1 Performed By: #### L 501.4020, L500.3400, L501.2450, L100.0100, L500.2500, L300.8000 ####[facility] [address] [place], [address] EST GFR - AA 166 mL/min Normal >60 [facility] Comment on above: Order Comment: 'TROP ' Serial specimen #1, #2 or #3: 1 Result Comment: Afri can Montenegrin GFR Calc Performed By: #### L 501.4020, L500.3400, L501.2450, L100.0100, L500.2500, L300.8000 ####[facility] [address] [place], [address] GAP 6 Normal 5-15 [facility] Comment on above: Order Comment: 'TROP ' Serial specimen #1, #2 or #3: 1 Performed By: #### L 501.4020, L500.3400, L501.2450, L100.0100, L500.2500, L300.8000 ####[facility] [address] [place], [address] GFR/1.73 sq M.predicted among non-blacks MDRD (S/P/Bld) [Vol rate/Area] 137 mL/min/{1.73_m2} Normal >60 [facility] Comment on above: Order Comment: 'TROP ' Serial specimen #1, #2 or #3: 1 Result Comment: Non- GFR Calc Performed By: #### L 501.4020, L500.3400, L501.2450, L100.0100, L500.2500, L300.8000 ####[facility] [address] [place], [address] Glucose [Mass/Vol] 122 mg/dL High 74-106 [facility] Comment on above: Order Comment: 'TROP ' Serial specimen #1, #2 or #3: 1 Result Comment: Fast ing Glucose result from 100 to 125 mg/dLsuggests IMPAIRED HOMEOSTASIS per A.D.A. criteria. Performed By: #### L 501.4020, L500.3400, L501.2450, L100.0100, L500.2500, L300.8000 ####[facility] [address] [place], [address] Potassium [Moles/Vol] 3.6 mmol/L Normal 3.5-5.1 [facility] Comment on above: Order Comment: 'TROP ' Serial specimen #1, #2 or #3: 1 Performed By: #### L 501.4020, L500.3400, L501.2450, L100.0100, L500.2500, L300.8000 ####[facility] [address] [place], [address] Sodium [Moles/Vol] 137 mmol/L Normal 136-145 [facility] Comment on above: Order Comment: 'TROP ' Serial specimen #1, #2 or #3: 1 Performed By: #### L 501.4020, L500.3400, L501.2450, L100.0100, L500.2500, L300.8000 ####[facility] [address] [place], [address] Urea nitrogen [Mass/Vol] 11 mg/dL Normal 7-18 [facility] Comment on above: Order Comment: 'TROP ' Serial specimen #1, #2 or #3: 1 Performed By: #### L 501.4020, L500.3400, L501.2450, L100.0100, L500.2500, L300.8000 ####[facility] [address] [place], [address] Basophil percentageOrdered B y: Richie Borden on 07-13-2024 Basophils/100 WBC (Bld) 0.5 % 0-1 [facility] Bilirubin directOrdered By: Richie Borden on 07-13-2024 Bilirubin.direct [Mass/Vol] 0.15 mg/dL 0.00-0.3 0 [facility] Bilirubin, totalOrdered By: Richie Borden on 07-13-2024 Bilirubin [Mass/Vol] 0.30 mg/dL 0.20-1.00 [facility] Comment on above: For patients on eltr ombopag therapy, use of Dimension [place] TBIL is not recommended. Blood urea nitrogen (BUN)/cr eatinine ratioOrdered By: Richie Borden on 07-13-2024 Urea nitrogen/Creatinine [Mass ratio] 17.5 mg/mg 10-20 [facility] CBC W/Diff, Automatedon 06-29 Absolute Lymph 3.25 X10 3/uL Normal 0.83-4.51 [facility] Comment on above: Performed By: #### L 501.4020, L500.3400, L501.2450, L100.0100, L500.2500, L300.8000 ####[facility] [address] [place], [address] Absolute Neut 9.2 X10 3/uL High 2.0-7.7 [facility] Comment on above: Performed By: #### L 501.4020, L500.3400, L501.2450, L100.0100, L500.2500, L300.8000 ####[facility] [address] [place], [address] Basophils/100 WBC (Bld) 0.5 % Normal 0-1 [facility] Comment on above: Performed By: #### L 501.4020, L500.3400, L501.2450, L100.0100, L500.2500, L300.8000 ####[facility] [address] [place], [address] Eosinophils/100 WBC (Bld) 3.1 % Normal 0-5 [facility] Comment on above: Performed By: #### L 501.4020, L500.3400, L501.2450, L100.0100, L500.2500, L300.8000 ####[facility] [address] [place], [address] Erythrocyte distribution width (RBC) [Ratio] 15.9 % High 11.6-14.6 [facility] Comment on above: Performed By: #### L 501.4020, L500.3400, L501.2450, L100.0100, L500.2500, L300.8000 ####[facility] [address] [place], [address] Hematocrit (Bld) [Volume fraction] 43.8 % Normal 40-54 [facility] Comment on above: Performed By: #### L 501.4020, L500.3400, L501.2450, L100.0100, L500.2500, L300.8000 ####[facility] [address] [place], [address] Hemoglobin (Bld) [Mass/Vol] 14.2 g/dL Normal 13.0-16. 5 [facility] Comment on above: Performed By: #### L 501.4020, L500.3400, L501.2450, L100.0100, L500.2500, L300.8000 ####[facility] [address] [place], [address] IG% 0.400 Normal 0.0-0.9 [facility] Comment on above: Result Comment: IG% - Immature Granulocytes (promyelocytes, myelocytes andmetamyelocytes) > 1% indicates that a LEFT SHIFT is Present. Performed By: #### L 501.4020, L500.3400, L501.2450, L100.0100, L500.2500, L300.8000 ####[facility] [address] [place], [address] Lymphocytes/100 WBC (Bld) 22.6 % Normal 19-41 [facility] Comment on above: Performed By: #### L 501.4020, L500.3400, L501.2450, L100.0100, L500.2500, L300.8000 ####[facility] [address] [place], [address] MCH (RBC) [Entitic mass] 26.8 pg Low 27.0-32.0 [facility] Comment on above: Performed By: #### L 501.4020, L500.3400, L501.2450, L100.0100, L500.2500, L300.8000 ####[facility] [address] [place], [address] MCHC (RBC) [Mass/Vol] 32.4 g/dL Normal 32-36 [facility] Comment on above: Performed By: #### L 501.4020, L500.3400, L501.2450, L100.0100, L500.2500, L300.8000 ####[facility] [address] [place], [address] MCV (RBC) [Entitic vol] 82.6 fL Normal 80-94 [facility] Comment on above: Performed By: #### L 501.4020, L500.3400, L501.2450, L100.0100, L500.2500, L300.8000 ####[facility] [address] [place], [address] Monocytes/100 WBC (Bld) 9.5 % Normal 0-10 [facility] Comment on above: Performed By: #### L 501.4020, L500.3400, L501.2450, L100.0100, L500.2500, L300.8000 ####[facility] [address] [place], [address] Neutrophils/100 WBC (Bld) 63.9 % Normal 47-70 [facility] Comment on above: Performed By: #### L 501.4020, L500.3400, L501.2450, L100.0100, L500.2500, L300.8000 ####[facility] [address] [place], [address] Nucleated RBC (Bld) [#/Vol] 0 10*3/uL Normal 0-5 [facility] Comment on above: Performed By: #### L 501.4020, L500.3400, L501.2450, L100.0100, L500.2500, L300.8000 ####[facility] [address] [place], [address] Platelet mean volume (Bld) [Entitic vol] 8.6 fL Normal 6.2-12.0 [facility] Comment on above: Performed By: #### L 501.4020, L500.3400, L501.2450, L100.0100, L500.2500, L300.8000 ####[facility] [address] [place], [address] Platelets (Bld) [#/Vol] 477 10*3/uL High 150-450 [facility] Comment on above: Performed By: #### L 501.4020, L500.3400, L501.2450, L100.0100, L500.2500, L300.8000 ####[facility] [address] [place], [address] RBC (Bld) [#/Vol] 5.30 10*6/uL Normal 4.6-6.2 [facility] Comment on above: Performed By: #### L 501.4020, L500.3400, L501.2450, L100.0100, L500.2500, L300.8000 ####[facility] [address] [place], [address] RDW SD 47.9 fl High 35.1-43.9 [facility] Comment on above: Performed By: #### L 501.4020, L500.3400, L501.2450, L100.0100, L500.2500, L300.8000 ####[facility] [address] [place], [address] WBC (Bld) [#/Vol] 14.4 10*3/uL High 4.4-11.0 [facility] Comment on above: Performed By: #### L 501.4020, L500.3400, L501.2450, L100.0100, L500.2500, L300.8000 ####[facility] [address] [place], [address] CTA Chest W/WO Contraston CTA Chest W/WO Contrast Normal [facility] Carbon dioxide measurementOr dered By: Richie Borden on 07-13-2024 CO2 [Moles/Vol] 27.0 mmol/L 21.0-32.0 [facility] Chest 1 View (Portable)on Chest 1 View (Portable) Normal [facility] Chloride measurementOrdered By: Richie Borden on 07-13-2024 Chloride [Moles/Vol] 104 mmol/L 98-107 [facility] D-Dimer Quantitative (DVT/PE )on 07-13-2024 D-DIMER QUANT 0.88 FEU/ug/m Invalid Interpretation Code 0.27-0.49 [facility] Comment on above: Result Comment: D-Di rick ELEVATED (>0.49): Additional studies and clinicalassessments are indicated to conclude diagnosis of:Deep Vein Thrombosis (DVT) or Pulmonary Embolism (PE)CRITICAL VALUE CALLED TO [facility]07/13/24 0417 Graham Osorio.RESULTS READ BACK BY SAME. Performed By: #### L 501.4020, L500.3400, L501.2450, L100.0100, L500.2500, L300.8000 ####[facility] [address] [place], [address] D-dimer measurement for deep venous thrombosisOrdered By: Richie Borden on 07-13-2024 D-Dimer Quantitative (PE/DVT) 0.88 FEU/ug/m High 0.27-0.49 [facility] Comment on above: D-Dimer ELEVATED (>0 .49): Additional studies and clinicalassessments are indicated to conclude diagnosis of:Deep Vein Thrombosis (DVT) or Pulmonary Embolism (PE)CRITICAL VALUE CALLED TO [facility]07/13/24 0417 Graham Osorio.RESULTS READ BACK BY SAME. Emergency Department Summary on 07-13-2024 Emergency Department Summary Normal [facility] Eosinophil percentageOrdered By: Richie Borden on 07-13-2024 Eosinophils/100 WBC (Bld) 3.1 % 0-5 [facility] Erythrocyte distribution wid th (RBC) [Ratio]Ordered By: Richie Borden on 07-13-2024 Erythrocyte distribution width (RBC) [Entitic vol] 47.9 fL High 35.1-43.9 [facility] Erythrocyte distribution wid th ratioOrdered By: Richie Borden on 07-13-2024 Erythrocyte distribution width (RBC) [Ratio] 15.9 % High 11.6-14.6 [facility] Erythrocyte distribution wid th standard deviationOrdered By: Richie Borden on 07-13-2024 Erythrocyte distribution width (RBC) [Ratio] 47.9 fl High 35.1-43.9 [facility] Estimated glomerular filtrat ion rate (GFR) AmericanOrdered By: Richie Borden on 07-13-2024 Estimated GFR (MDRD) Amer 166 mL/min >60 [facility] Comment on above: GFR Calc Estimation of creatinine elzbieta aranceOrdered By: Richie Borden on 07-13-2024 Estimated Creatinine Clearance Calc 120.02 ml/min [facility] Glomerular filtration rate ( GFR) estimationOrdered By: Richie Borden on 07-13-2024 Estimated GFR (MDRD) Non-Af Amer 137 mL/min >60 [facility] Comment on above: Non- GFR Calc GFR/1.73 sq M.predicted among non-blacks MDRD (S/P/Bld) [Vol rate/Area] 137 mL/min/{1.73_m2} >60 [facility] Comment on above: Non- GFR Calc Glucose measurementOrdered B y: Richie Borden on 07-13-2024 Glucose [Mass/Vol] 122 mg/dL High 74-106 [facility] Comment on above: Fasting Glucose resu lt from 100 to 125 mg/dL suggests IMPAIRED HOMEOSTASIS per A.D.A. criteria. Hematocrit Auto (Bld) [Volum e fraction]Ordered By: Richie Borden on 07-13-2024 Hematocrit (Bld) [Volume fraction] 43.8 % 40-54 [facility] Hemoglobin measurementOrdere d By: Richie Borden on 07-13-2024 Hemoglobin (Bld) [Mass/Vol] 14.2 g/dL 13.0-16. 5 [facility] Immature granulocytes/100 WB C Auto (Bld)Ordered By: Richie Borden on 07-13-2024 Immature granulocytes/100 WBC (Bld) 0.400 % 0.0-0.9 [facility] Comment on above: IG% - Immature Granu locytes (promyelocytes, myelocytes and metamyelocytes) > 1% indicates that a LEFT SHIFT is Present. Influenza virus A and B and SARS-CoV-2 (COVID-19) and Respiratory syncytial virus RNAOrdered By: Richie Borden on 07-13-2024 SARS-CoV-2 (COVID-19) RNA ZEKE+probe Ql (Unsp spec) [facility] L501.4020on 07-13-2024 TROPONIN-I HS 6 pg/mL Normal 3.0-78.0 [facility] Comment on above: Order Comment: 'TROP ' Serial specimen #1, #2 or #3: 2 Result Comment: Siri anaya Note: New Test Units and Gender Specific Reference Ranges. For more information see Policy Stat Procedure [place] High Sensitivity Troponin (TNIH) and attachments. Performed By: #### L 760.0290 ####[facility] [address] [place], [address] TROPONIN-I HS 7 pg/mL Normal 3.0-78.0 [facility] Comment on above: Order Comment: 'TROP ' Serial specimen #1, #2 or #3: 1 Result Comment: Siir anaya Note: New Test Units and Gender Specific Reference Ranges. For more information see Policy Stat Procedure [place] High Sensitivity Troponin (TNIH) and attachments. Performed By: #### L 501.4020, L500.3400, L501.2450, L100.0100, L500.2500, L300.8000 ####[facility] [address] [place], [address] Laboratory - Chemistry and C hemistry - challengeOrdered By: Richie Borden on 07-13-2024 AST [Catalytic activity/Vol] 25 U/L 15-37 [facility] Lipaseon 07-13-2024 Lipase [Catalytic activity/Vol] 17 U/L Low 73-393 [facility] Comment on above: Order Comment: 'TROP ' Serial specimen #1, #2 or #3: 1 Performed By: #### L 501.4020, L500.3400, L501.2450, L100.0100, L500.2500, L300.8000 ####[facility] [address] [place], [address] Lipase measurementOrdered By : Richie Borden on 07-13-2024 Lipase [Catalytic activity/Vol] 17 U/L Low 73-393 [facility] Liver Profileon 07-13-2024 Albumin [Mass/Vol] 2.5 g/dL Low 3.2-5.0 [facility] Comment on above: Order Comment: 'TROP ' Serial specimen #1, #2 or #3: 1 Performed By: #### L 501.4020, L500.3400, L501.2450, L100.0100, L500.2500, L300.8000 ####[facility] [address] [place], [address] ALK P 124 U/L High 45-117 [facility] Comment on above: Order Comment: 'TROP ' Serial specimen #1, #2 or #3: 1 Performed By: #### L 501.4020, L500.3400, L501.2450, L100.0100, L500.2500, L300.8000 ####[facility] [address] [place], [address] ALT [Catalytic activity/Vol] 24 U/L Normal 16-61 [facility] Comment on above: Order Comment: 'TROP ' Serial specimen #1, #2 or #3: 1 Performed By: #### L 501.4020, L500.3400, L501.2450, L100.0100, L500.2500, L300.8000 ####[facility] [address] [place], [address] AST [Catalytic activity/Vol] 25 U/L Normal 15-37 [facility] Comment on above: Order Comment: 'TROP ' Serial specimen #1, #2 or #3: 1 Performed By: #### L 501.4020, L500.3400, L501.2450, L100.0100, L500.2500, L300.8000 ####[facility] [address] [place], [address] Bilirubin [Mass/Vol] 0.30 mg/dL Normal 0.20-1.00 [facility] Comment on above: Order Comment: 'TROP ' Serial specimen #1, #2 or #3: 1 Result Comment: For patients on eltrombopag therapy, use of Dimension [place] TBIL is not recommended. Performed By: #### L 501.4020, L500.3400, L501.2450, L100.0100, L500.2500, L300.8000 ####[facility] [address] [place], [address] Bilirubin.direct [Mass/Vol] 0.15 mg/dL Normal 0.00-0.3 0 [facility] Comment on above: Order Comment: 'TROP ' Serial specimen #1, #2 or #3: 1 Performed By: #### L 501.4020, L500.3400, L501.2450, L100.0100, L500.2500, L300.8000 ####[facility] [address] [place], [address] Globulin (S) [Mass/Vol] 5.7 g/dL High 2.2-4.2 [facility] Comment on above: Order Comment: 'TROP ' Serial specimen #1, #2 or #3: 1 Performed By: #### L 501.4020, L500.3400, L501.2450, L100.0100, L500.2500, L300.8000 ####[facility] [address] [place], [address] T PROT 8.2 g/dL Normal 6.4-8.2 [facility] Comment on above: Order Comment: 'TROP ' Serial specimen #1, #2 or #3: 1 Performed By: #### L 501.4020, L500.3400, L501.2450, L100.0100, L500.2500, L300.8000 ####[facility] [address] [place], [address] Lymphocytes Auto (Unsp spec) [#/Vol]Ordered By: Richie Borden on 07-13-2024 Lymphocytes (Bld) [#/Vol] 3.25 10*3/uL 0.83-4.5 1 [facility] Lymphocytes/100 WBC Auto (Un sp spec)Ordered By: Richie Borden on 07-13-2024 Lymphocytes/100 WBC (Bld) 22.6 % 19-41 [facility] M100.678on 07-13-2024 M100.678 SARS-CoV-2 (COVID 19 ) Negative INFLUENZA A Negative INFLUENZA B Negative RSV PCR Negative Normal [facility] Comment on above: Performed By: #### M 100.678 ####[facility] [address] [place], [address] MCV (mean corpuscular volume ) determinationOrdered By: Richie Borden on 07-13-2024 MCV (RBC) [Entitic vol] 82.6 fL 80-94 [facility] Mean corpuscular hemoglobin (MCH) determinationOrdered By: Richie Borden on 07-13-2024 MCH (RBC) [Entitic mass] 26.8 pg Low 27.0-32.0 [facility] Mean corpuscular hemoglobin concentration (MCHC) determinationOrdered By: Richie Borden on 07-13-2024 MCHC (RBC) [Mass/Vol] 32.4 g/dL 32-36 [facility] Mean platelet volume determi nationOrdered By: iRchie Borden on 07-13-2024 Platelet mean volume (Bld) [Entitic vol] 8.6 fL 6.2-12.0 [facility] Monocyte percentageOrdered B y: Richie Borden on 07-13-2024 Monocytes/100 WBC (Bld) 9.5 % 0-10 [facility] Neutrophil percentageOrdered By: Richie Borden on 07-13-2024 Neutrophils/100 WBC (Bld) 63.9 % 47-70 [facility] Nucleated red blood cell per centageOrdered By: Richie Borden on 07-13-2024 Nucleated RBC/100 WBC (Bld) [Ratio] 0 % 0-5 [facility] Platelet countOrdered By: Yvonne Borden on 07-13-2024 Platelets (Bld) [#/Vol] 477 10*3/uL High 150-450 [facility] Potassium measurementOrdered By: Richie Borden on 07-13-2024 Potassium [Moles/Vol] 3.6 mmol/L 3.5-5.1 [facility] RBC Auto (Bld) [#/Vol]Ordere d By: Richie Borden on 07-13-2024 RBC (Bld) [#/Vol] 5.30 10*6/uL 4.6-6.2 [facility] Serum anion gap measurementO rdered By: Richie Borden on 07-13-2024 Anion gap [Moles/Vol] 6 mmol/L 5-15 [facility] Serum globulin measurementOr dered By: Richie Borden on 07-13-2024 Globulin (S) [Mass/Vol] 5.7 g/dL High 2.2-4.2 [facility] Serum or plasma alanine hooper otransferase (ALT) measurementOrdered By: Richie Borden on 07-13-2024 ALT [Catalytic activity/Vol] 24 U/L 16-61 [facility] Serum or plasma albumin shantal urement (mass/volume)Ordered By: Richie Borden on 07-13-2024 Albumin [Mass/Vol] 2.5 g/dL Low 3.2-5.0 [facility] Serum or plasma alkaline radha sphatase measurementOrdered By: Richie Borden on 07-13-2024 ALP [Catalytic activity/Vol] 124 U/L High 45-117 [facility] Serum or plasma calcium shantal urement (mass/volume)Ordered By: Richie Borden on 07-13-2024 Calcium [Mass/Vol] 9.4 mg/dL 8.5-10.1 [facility] Serum or plasma creatinine m easurement [...] 07-13-2024 Urea nitrogen [Mass/Vol] 11 mg/dL 7-18 [facility] Sodium levelOrdered By: Yuriy Borden on 07-13-2024 Sodium [Moles/Vol] 137 mmol/L 136-145 [facility] Total proteinOrdered By: Isidro Borden on 07-13-2024 Protein [Mass/Vol] 8.2 g/dL 6.4-8.2 [facility] Troponin IOrdered By: Richie Borden on 07-13-2024 Troponin I 6 pg/mL 3.0-78.0 [facility] Comment on above: Please Note: New Tanya t Units and Gender Specific Reference Ranges. For more information see Policy Stat Procedure [place] High Sensitivity Troponin (TNIH) and attachments. Troponin I High Sensitivity 6 pg/mL 3.0-78.0 [facility] Comment on above: Please Note: New Tanya t Units and Gender Specific Reference Ranges. For more information see Policy Stat Procedure [place] High Sensitivity Troponin (TNIH) and attachments. White blood cell (WBC) count Ordered By: Richie Borden on 07-13-2024 WBC (Bld) [#/Vol] 14.4 10*3/uL High 4.4-11.0 [facility] Culture, Blood (WB)on 2024 CUB Blood cultures x2, from two different sites No growth in 5 days. Normal [facility] Comment on above: Performed By: #### L 300.3900, L100.0100, L503.6005, L500.4050, L300.4310, M200.1000 ####[facility] [address] [place], [place], [id number] Discharge Instructionon 05-30 Discharge Instruction Normal [facility] Magnesiumon 06-18-2024 Magnesium [Mass/Vol] 1.9 mg/dL Normal 1.6-2.6 [facility] Comment on above: Performed By: #### L 501.5200, L501.2300 ####[facility] [address] [place], [place], [id number] Magnesium measurementOrdered By: Ronak Cui on 06-18-2024 Magnesium [Mass/Vol] 1.9 mg/dL 1.6-2.6 [facility] Phosphoruson 06-18-2024 Phosphate [Mass/Vol] 3.7 mg/dL Normal 2.5-4.9 [facility] Comment on above: Performed By: #### L 501.5200, L501.2300 ####[facility] [address] [place], [place], [id number] Phosphorus measurementOrdere d By: Ronak Cui on 06-18-2024 Phosphorus Level 3.7 mg/dL 2.5-4.9 [facility] Urine Cultureon 06-18-2024 URC Below infection leve rica GNR Poss Pseudomonas sp [place] Count 1000-10,000 Yeast, not Joleen albicans Yeast, not Joleen albicans Normal [facility] Comment on above: Performed By: #### M 100.2200, L400.0001 ####[facility] [address] [place], [place], [id number] Absolute neutrophil countOrd ered By: Ronak Cui on 06-17-2024 Neutrophils (Bld) [#/Vol] 6.1 10*3/uL 2.0-7.7 [facility] Albumin to globulin ratioOrd ered By: Ronak Cui on 06-17-2024 Albumin/Globulin [Mass ratio] 0.6 {ratio} Low 0.9-2.4 [facility] Basophil percentageOrdered B y: Ronak Cui on 06-17-2024 Basophils/100 WBC (Bld) 0.7 % 0-1 [facility] Bilirubin, totalOrdered By: Ronak Cui on 06-17-2024 Bilirubin [Mass/Vol] 0.40 mg/dL 0.20-1.00 [facility] Comment on above: For patients on eltr ombopag therapy, use of Dimension [place] TBIL is not recommended. Blood urea nitrogen (BUN)/cr eatinine ratioOrdered By: Ronak Cui on 06-17-2024 Urea nitrogen/Creatinine [Mass ratio] 14.0 mg/mg 03-17 [facility] CBC W/Diff, Automatedon 05-30 Absolute Lymph 2.50 X10 3/uL Normal 0.83-4.51 [facility] Comment on above: Performed By: #### L 501.5200, L100.0100, L501.2300, L500.4050, L501.9520 ####[facility] [address] [place], [address] Absolute Neut 6.1 X10 3/uL Normal 2.0-7.7 [facility] Comment on above: Performed By: #### L 501.5200, L100.0100, L501.2300, L500.4050, L501.9520 ####[facility] [address] [place], [address] Basophils/100 WBC (Bld) 0.7 % Normal 0-1 [facility] Comment on above: Performed By: #### L 501.5200, L100.0100, L501.2300, L500.4050, L501.9520 ####[facility] [address] [place], [address] Eosinophils/100 WBC (Bld) 5.5 % High 0-5 [facility] Comment on above: Performed By: #### L 501.5200, L100.0100, L501.2300, L500.4050, L501.9520 ####[facility] [address] [place], [address] Erythrocyte distribution width (RBC) [Ratio] 16.3 % High 11.6-14.6 [facility] Comment on above: Performed By: #### L 501.5200, L100.0100, L501.2300, L500.4050, L501.9520 ####[facility] [address] [place], [address] Hematocrit (Bld) [Volume fraction] 42.7 % Normal 40-54 [facility] Comment on above: Performed By: #### L 501.5200, L100.0100, L501.2300, L500.4050, L501.9520 ####[facility] [address] [place], [address] Hemoglobin (Bld) [Mass/Vol] 13.9 g/dL Normal 13.0-16. 5 [facility] Comment on above: Performed By: #### L 501.5200, L100.0100, L501.2300, L500.4050, L501.9520 ####[facility] [address] [place], [address] IG% 0.700 Normal 0.0-0.9 [facility] Comment on above: Result Comment: IG% - Immature Granulocytes (promyelocytes, myelocytes andmetamyelocytes) > 1% indicates that a LEFT SHIFT is Present. Performed By: #### L 501.5200, L100.0100, L501.2300, L500.4050, L501.9520 ####[facility] [address] [place], [address] Lymphocytes/100 WBC (Bld) 24.1 % Normal 19-41 [facility] Comment on above: Performed By: #### L 501.5200, L100.0100, L501.2300, L500.4050, L501.9520 ####[facility] [address] [place], [address] MCH (RBC) [Entitic mass] 27.7 pg Normal 27.0-32.0 [facility] Comment on above: Performed By: #### L 501.5200, L100.0100, L501.2300, L500.4050, L501.9520 ####[facility] [address] [place], [address] MCHC (RBC) [Mass/Vol] 32.6 g/dL Normal 32-36 [facility] Comment on above: Performed By: #### L 501.5200, L100.0100, L501.2300, L500.4050, L501.9520 ####[facility] [address] [place], [address] MCV (RBC) [Entitic vol] 85.2 fL Normal 80-94 [facility] Comment on above: Performed By: #### L 501.5200, L100.0100, L501.2300, L500.4050, L501.9520 ####[facility] [address] [place], [address] Monocytes/100 WBC (Bld) 9.9 % Normal 0-10 [facility] Comment on above: Performed By: #### L 501.5200, L100.0100, L501.2300, L500.4050, L501.9520 ####[facility] [address] [place], [address] Neutrophils/100 WBC (Bld) 59.1 % Normal 47-70 [facility] Comment on above: Performed By: #### L 501.5200, L100.0100, L501.2300, L500.4050, L501.9520 ####[facility] [address] [place], [address] Nucleated RBC (Bld) [#/Vol] 0 10*3/uL Normal 0-5 [facility] Comment on above: Performed By: #### L 501.5200, L100.0100, L501.2300, L500.4050, L501.9520 ####[facility] [address] [place], [address] Platelet mean volume (Bld) [Entitic vol] 9.0 fL Normal 6.2-12.0 [facility] Comment on above: Performed By: #### L 501.5200, L100.0100, L501.2300, L500.4050, L501.9520 ####[facility] [address] [place], [address] Platelets (Bld) [#/Vol] 363 10*3/uL Normal 150-450 [facility] Comment on above: Performed By: #### L 501.5200, L100.0100, L501.2300, L500.4050, L501.9520 ####[facility] [address] [place], [address] RBC (Bld) [#/Vol] 5.01 10*6/uL Normal 4.6-6.2 [facility] Comment on above: Performed By: #### L 501.5200, L100.0100, L501.2300, L500.4050, L501.9520 ####[facility] [address] [place], [address] RDW SD 50.2 fl High 35.1-43.9 [facility] Comment on above: Performed By: #### L 501.5200, L100.0100, L501.2300, L500.4050, L501.9520 ####[facility] [address] [place], [address] WBC (Bld) [#/Vol] 10.4 10*3/uL Normal 4.4-11.0 [facility] Comment on above: Performed By: #### L 501.5200, L100.0100, L501.2300, L500.4050, L501.9520 ####[facility] [address] [place], [address] Carbon dioxide measurementOr dered By: Ronak Cui on 06-17-2024 CO2 [Moles/Vol] 24.0 mmol/L 21.0-32.0 [facility] Chloride measurementOrdered By: Ronak Cui on 06-17-2024 Chloride [Moles/Vol] 108 mmol/L High 98-107 [facility] Comprehensive Metabolic Prof ilon 06-17-2024 Albumin [Mass/Vol] 2.4 g/dL Low 3.2-5.0 [facility] Comment on above: Performed By: #### L 501.5200, L100.0100, L501.2300, L500.4050, L501.9520 ####[facility] [address] [place], [address] Albumin/Globulin [Mass ratio] 0.6 {ratio} Low 0.9-2.4 [facility] Comment on above: Performed By: #### L 501.5200, L100.0100, L501.2300, L500.4050, L501.9520 ####[facility] [address] [place], [address] ALK P 130 U/L High 45-117 [facility] Comment on above: Performed By: #### L 501.5200, L100.0100, L501.2300, L500.4050, L501.9520 ####[facility] [address] [place], [address] ALT [Catalytic activity/Vol] 17 U/L Normal 16-61 [facility] Comment on above: Performed By: #### L 501.5200, L100.0100, L501.2300, L500.4050, L501.9520 ####[facility] [address] [place], [address] AST [Catalytic activity/Vol] 20 U/L Normal 15-37 [facility] Comment on above: Performed By: #### L 501.5200, L100.0100, L501.2300, L500.4050, L501.9520 ####[facility] [address] [place], [address] Bilirubin [Mass/Vol] 0.40 mg/dL Normal 0.20-1.00 [facility] Comment on above: Result Comment: For patients on eltrombopag therapy, use of Dimension [place] TBIL is not recommended. Performed By: #### L 501.5200, L100.0100, L501.2300, L500.4050, L501.9520 ####[facility] [address] [place], [address] BUN/CRE 14.0 RATIO Normal 10-20 [facility] Comment on above: Performed By: #### L 501.5200, L100.0100, L501.2300, L500.4050, L501.9520 ####[facility] [address] [place], [address] CA,Total 8.9 mg/dL Normal 8.5-10.1 [facility] Comment on above: Performed By: #### L 501.5200, L100.0100, L501.2300, L500.4050, L501.9520 ####[facility] [address] [place], [address] Chloride [Moles/Vol] 108 mmol/L High 98-107 [facility] Comment on above: Performed By: #### L 501.5200, L100.0100, L501.2300, L500.4050, L501.9520 ####[facility] [address] [place], [address] CO2 [Moles/Vol] 24.0 mmol/L Normal 21.0-32.0 [facility] Comment on above: Performed By: #### L 501.5200, L100.0100, L501.2300, L500.4050, L501.9520 ####[facility] [address] [place], [address] Creatinine [Mass/Vol] 0.57 mg/dL Low 0.70-1.30 [facility] Comment on above: Result Comment: The validity of the calculated GFR GFRAA in patients over70 years has not been determined. Clinical correlation isessential. Performed By: #### L 501.5200, L100.0100, L501.2300, L500.4050, L501.9520 ####[facility] [address] [place], [address] ECRCL 132.65 ml/min Normal [facility] Comment on above: Performed By: #### L 501.5200, L100.0100, L501.2300, L500.4050, L501.9520 ####[facility] [address] [place], [address] EST GFR - AA 184 mL/min Normal >60 [facility] Comment on above: Result Comment: Afri can Mont[place] GFR Calc Performed By: #### L 501.5200, L100.0100, L501.2300, L500.4050, L501.9520 ####[facility] [address] [place], [address] GAP 6 Normal 5-15 [facility] Comment on above: Performed By: #### L 501.5200, L100.0100, L501.2300, L500.4050, L501.9520 ####[facility] [address] [place], [address] GFR/1.73 sq M.predicted among non-blacks MDRD (S/P/Bld) [Vol rate/Area] 152 mL/min/{1.73_m2} Normal >60 [facility] Comment on above: Result Comment: Non- GFR Calc Performed By: #### L 501.5200, L100.0100, L501.2300, L500.4050, L501.9520 ####[facility] [address] [place], [address] Globulin (S) [Mass/Vol] 4.3 g/dL High 2.2-4.2 [facility] Comment on above: Performed By: #### L 501.5200, L100.0100, L501.2300, L500.4050, L501.9520 ####[facility] [address] [place], [address] Glucose [Mass/Vol] 101 mg/dL Normal 74-106 [facility] Comment on above: Result Comment: Fast ing Glucose result from 100 to 125 mg/dLsuggests IMPAIRED HOMEOSTASIS per A.D.A. criteria. Performed By: #### L 501.5200, L100.0100, L501.2300, L500.4050, L501.9520 ####[facility] [address] [place], [address] Potassium [Moles/Vol] 3.5 mmol/L Normal 3.5-5.1 [facility] Comment on above: Performed By: #### L 501.5200, L100.0100, L501.2300, L500.4050, L501.9520 ####[facility] [address] [place], [address] Sodium [Moles/Vol] 139 mmol/L Normal 136-145 [facility] Comment on above: Performed By: #### L 501.5200, L100.0100, L501.2300, L500.4050, L501.9520 ####[facility] [address] [place], [address] T PROT 6.7 g/dL Normal 6.4-8.2 [facility] Comment on above: Performed By: #### L 501.5200, L100.0100, L501.2300, L500.4050, L501.9520 ####[facility] [address] [place], [address] Urea nitrogen [Mass/Vol] 8 mg/dL Normal 7-18 [facility] Comment on above: Performed By: #### L 501.5200, L100.0100, L501.2300, L500.4050, L501.9520 ####[facility] [address] [place], [address] Culture, Blood (WB)on 2024 CUB Blood cultures x2, from two different sites No growth in 5 days. Normal [facility] Comment on above: Performed By: #### M 200.1000 ####[facility] [address] [place], [address] CUB Blood cultures x2, from two different sites No growth in 5 days. Normal [facility] Comment on above: Performed By: #### M 200.1000 ####[facility] [address] [place], [address] Eosinophil percentageOrdered By: Ronak Cui on 06-17-2024 Eosinophils/100 WBC (Bld) 5.5 % High 0-5 [facility] Erythrocyte distribution wid th (RBC) [Ratio]Ordered By: Ronak Cui on 06-17-2024 Erythrocyte distribution width (RBC) [Entitic vol] 50.2 fL High 35.1-43.9 [facility] Erythrocyte distribution wid th ratioOrdered By: Ronak Cui on 06-17-2024 Erythrocyte distribution width (RBC) [Ratio] 16.3 % High 11.6-14.6 [facility] Estimated glomerular filtrat ion rate (GFR) AmericanOrdered By: Ronak Cui on 06-17-2024 Estimated GFR (MDRD) Amer 184 mL/min >60 [facility] Comment on above: GFR Calc Estimation of creatinine elzbieta aranceOrdered By: Ronak Cui on 06-17-2024 Estimated Creatinine Clearance Calc 132.65 ml/min [facility] Glomerular filtration rate ( GFR) estimationOrdered By: Ronak Cui on 06-17-2024 Estimated GFR (MDRD) Non-Af Amer 152 mL/min >60 [facility] Comment on above: Non- GFR Calc Glucose measurementOrdered B y: Ronak Cui on 06-17-2024 Glucose [Mass/Vol] 101 mg/dL 74-106 [facility] Comment on above: Fasting Glucose resu lt from 100 to 125 mg/dL suggests IMPAIRED HOMEOSTASIS per A.D.A. criteria. Hematocrit Auto (Bld) [Volum e fraction]Ordered By: Ronak Cui on 06-17-2024 Hematocrit (Bld) [Volume fraction] 42.7 % 40-54 [facility] Hemoglobin measurementOrdere d By: Ronak Cui on 06-17-2024 Hemoglobin (Bld) [Mass/Vol] 13.9 g/dL 13.0-16. 5 [facility] Immature granulocytes/100 WB C Auto (Bld)Ordered By: Ronak Cui on 06-17-2024 Immature granulocytes/100 WBC (Bld) 0.700 % 0.0-0.9 [facility] Comment on above: IG% - Immature Granu locytes (promyelocytes, myelocytes and metamyelocytes) > 1% indicates that a LEFT SHIFT is Present. Laboratory - Chemistry and C hemistry - challengeOrdered By: Ronak Cui on 06-17-2024 AST [Catalytic activity/Vol] 20 U/L 15-37 [facility] Lymphocytes Auto (Unsp spec) [#/Vol]Ordered By: Ronak Cui on 06-17-2024 Lymphocytes (Bld) [#/Vol] 2.50 10*3/uL 0.83-4.5 1 [facility] Lymphocytes/100 WBC Auto (Un sp spec)Ordered By: Ronak Cui on 06-17-2024 Lymphocytes/100 WBC (Bld) 24.1 % 19-41 [facility] MCV (mean corpuscular volume ) determinationOrdered By: Ronak Cui on 06-17-2024 MCV (RBC) [Entitic vol] 85.2 fL 80-94 [facility] Magnesiumon 06-17-2024 Magnesium [Mass/Vol] 1.8 mg/dL Normal 1.6-2.6 [facility] Comment on above: Performed By: #### L 501.5200, L100.0100, L501.2300, L500.4050, L501.9520 ####[facility] [address] [place], [address] Mean corpuscular hemoglobin (MCH) determinationOrdered By: Ronak Cui on 06-17-2024 MCH (RBC) [Entitic mass] 27.7 pg 27.0-32.0 [facility] Mean corpuscular hemoglobin concentration (MCHC) determinationOrdered By: Ronak Cui on 06-17-2024 MCHC (RBC) [Mass/Vol] 32.6 g/dL 32-36 [facility] Mean platelet volume determi nationOrdered By: Ronak Cui on 06-17-2024 Platelet mean volume (Bld) [Entitic vol] 9.0 fL 6.2-12.0 [facility] Monocyte percentageOrdered B y: Ronak Cui on 06-17-2024 Monocytes/100 WBC (Bld) 9.9 % 0-10 [facility] Neutrophil percentageOrdered By: Ronak Cui on 06-17-2024 Neutrophils/100 WBC (Bld) 59.1 % 47-70 [facility] Nucleated red blood cell per centageOrdered By: Ronak Cui on 06-17-2024 Nucleated RBC/100 WBC (Bld) [Ratio] 0 % 0-5 [facility] Phosphoruson 06-17-2024 Phosphate [Mass/Vol] 3.2 mg/dL Normal 2.5-4.9 [facility] Comment on above: Performed By: #### L 501.5200, L100.0100, L501.2300, L500.4050, L501.9520 ####[facility] [address] [place], [address] Platelet countOrdered By: Thomas Cui on 06-17-2024 Platelets (Bld) [#/Vol] 363 10*3/uL 150-450 [facility] Potassium measurementOrdered By: Ronak Cui on 06-17-2024 Potassium [Moles/Vol] 3.5 mmol/L 3.5-5.1 [facility] RBC Auto (Bld) [#/Vol]Ordere d By: Ronak Cui on 06-17-2024 RBC (Bld) [#/Vol] 5.01 10*6/uL 4.6-6.2 [facility] Serum anion gap measurementO rdered By: Ronak Cui on 06-17-2024 Anion gap [Moles/Vol] 6 mmol/L 5-15 [facility] Serum globulin measurementOr dered By: Ronak Cui on 06-17-2024 Globulin (S) [Mass/Vol] 4.3 g/dL High 2.2-4.2 [facility] Serum or plasma alanine hooper otransferase (ALT) measurementOrdered By: Ronak Cui on 06-17-2024 ALT [Catalytic activity/Vol] 17 U/L 16-61 [facility] Serum or plasma albumin shantal urement (mass/volume)Ordered By: Ronak Cui on 06-17-2024 Albumin [Mass/Vol] 2.4 g/dL Low 3.2-5.0 [facility] Serum or plasma alkaline radha sphatase measurementOrdered By: Ronak Cui on 06-17-2024 ALP [Catalytic activity/Vol] 130 U/L High 45-117 [facility] Serum or plasma calcium shantal urement (mass/volume)Ordered By: Ronak Cui on 06-17-2024 Calcium [Mass/Vol] 8.9 mg/dL 8.5-10.1 [facility] Serum or plasma creatinine m easurement [...] 06-17-2024 Urea nitrogen [Mass/Vol] 8 mg/dL 7-18 [facility] Sodium levelOrdered By: Johnny Cui on 06-17-2024 Sodium [Moles/Vol] 139 mmol/L 136-145 [facility] TSH QnOrdered By: Ronak muro on 06-17-2024 Thyroid Stimulating Hormone (TSH) 5.010 uIU/mL High 0.358-3.74 0 [facility] Thyroid Stim Hormone (TSH)on 06-17-2024 TSH 5.010 uIU/mL High 0.358-3.74 0 [facility] Comment on above: Performed By: #### L 501.5200, L100.0100, L501.2300, L500.4050, L501.9520 ####[facility] [address] [place], [place], [id number] Total proteinOrdered By: Juan Cui on 06-17-2024 Protein [Mass/Vol] 6.7 g/dL 6.4-8.2 [facility] White blood cell (WBC) count Ordered By: Ronak Cui on 06-17-2024 WBC (Bld) [#/Vol] 10.4 10*3/uL 4.4-11.0 [facility] 12 Lead EKGon 06-16-2024 12 Lead EKG Normal [facility] Bilirubin Test strip Ql (U)O rdered By: Christian eMrlos on 06-16-2024 Bilirubin Ql (U) Negative Negative [facility] Blood cultureOrdered By: Dorina Merlos on 06-16-2024 Bacteria identified Cx Nom (Bld) No growth in 5 days. [facility] Bacteria identified Cx Nom (Bld) No growth in 5 days. [facility] Brain/Head without Contrasto n 06-16-2024 Brain/Head without Contrast Normal [facility] CBC W/Diff, Automatedon 05-29 Absolute Lymph 2.25 X10 3/uL Normal 0.83-4.51 [facility] Comment on above: Performed By: #### L 300.3900, L100.0100, L503.6005, L500.4050, L300.4310, M200.1000 ####[facility] [address] [place], [address] Absolute Neut 10.0 X10 3/uL High 2.0-7.7 [facility] Comment on above: Performed By: #### L 300.3900, L100.0100, L503.6005, L500.4050, L300.4310, M200.1000 ####[facility] [address] [place], [address] Basophils/100 WBC (Bld) 0.5 % Normal 0-1 [facility] Comment on above: Performed By: #### L 300.3900, L100.0100, L503.6005, L500.4050, L300.4310, M200.1000 ####[facility] [address] [place], [address] Eosinophils/100 WBC (Bld) 3.2 % Normal 0-5 [facility] Comment on above: Performed By: #### L 300.3900, L100.0100, L503.6005, L500.4050, L300.4310, M200.1000 ####[facility] [address] [place], [address] Erythrocyte distribution width (RBC) [Ratio] 16.1 % High 11.6-14.6 [facility] Comment on above: Performed By: #### L 300.3900, L100.0100, L503.6005, L500.4050, L300.4310, M200.1000 ####[facility] [address] [place], [address] Hematocrit (Bld) [Volume fraction] 44.4 % Normal 40-54 [facility] Comment on above: Performed By: #### L 300.3900, L100.0100, L503.6005, L500.4050, L300.4310, M200.1000 ####[facility] [address] [place], [address] Hemoglobin (Bld) [Mass/Vol] 14.5 g/dL Normal 13.0-16. 5 [facility] Comment on above: Performed By: #### L 300.3900, L100.0100, L503.6005, L500.4050, L300.4310, M200.1000 ####[facility] [address] [place], [address] IG% 0.600 Normal 0.0-0.9 [facility] Comment on above: Result Comment: IG% - Immature Granulocytes (promyelocytes, myelocytes andmetamyelocytes) > 1% indicates that a LEFT SHIFT is Present. Performed By: #### L 300.3900, L100.0100, L503.6005, L500.4050, L300.4310, M200.1000 ####[facility] [address] [place], [address] Lymphocytes/100 WBC (Bld) 16.2 % Low 19-41 [facility] Comment on above: Performed By: #### L 300.3900, L100.0100, L503.6005, L500.4050, L300.4310, M200.1000 ####[facility] [address] [place], [address] MCH (RBC) [Entitic mass] 27.8 pg Normal 27.0-32.0 [facility] Comment on above: Performed By: #### L 300.3900, L100.0100, L503.6005, L500.4050, L300.4310, M200.1000 ####[facility] [address] [place], [address] MCHC (RBC) [Mass/Vol] 32.7 g/dL Normal 32-36 [facility] Comment on above: Performed By: #### L 300.3900, L100.0100, L503.6005, L500.4050, L300.4310, M200.1000 ####[facility] [address] [place], [address] MCV (RBC) [Entitic vol] 85.1 fL Normal 80-94 [facility] Comment on above: Performed By: #### L 300.3900, L100.0100, L503.6005, L500.4050, L300.4310, M200.1000 ####[facility] [address] [place], [address] Monocytes/100 WBC (Bld) 7.3 % Normal 0-10 [facility] Comment on above: Performed By: #### L 300.3900, L100.0100, L503.6005, L500.4050, L300.4310, M200.1000 ####[facility] [address] [place], [address] Neutrophils/100 WBC (Bld) 72.2 % High 47-70 [facility] Comment on above: Performed By: #### L 300.3900, L100.0100, L503.6005, L500.4050, L300.4310, M200.1000 ####[facility] [address] [place], [address] Nucleated RBC (Bld) [#/Vol] 0 10*3/uL Normal 0-5 [facility] Comment on above: Performed By: #### L 300.3900, L100.0100, L503.6005, L500.4050, L300.4310, M200.1000 ####[facility] [address] [place], [address] Platelet mean volume (Bld) [Entitic vol] 8.7 fL Normal 6.2-12.0 [facility] Comment on above: Performed By: #### L 300.3900, L100.0100, L503.6005, L500.4050, L300.4310, M200.1000 ####[facility] [address] [place], [address] Platelets (Bld) [#/Vol] 387 10*3/uL Normal 150-450 [facility] Comment on above: Performed By: #### L 300.3900, L100.0100, L503.6005, L500.4050, L300.4310, M200.1000 ####[facility] [address] [place], [address] RBC (Bld) [#/Vol] 5.22 10*6/uL Normal 4.6-6.2 [facility] Comment on above: Performed By: #### L 300.3900, L100.0100, L503.6005, L500.4050, L300.4310, M200.1000 ####[facility] [address] [place], [address] RDW SD 49.8 fl High 35.1-43.9 [facility] Comment on above: Performed By: #### L 300.3900, L100.0100, L503.6005, L500.4050, L300.4310, M200.1000 ####[facility] [address] [place], [address] WBC (Bld) [#/Vol] 13.9 10*3/uL High 4.4-11.0 [facility] Comment on above: Performed By: #### L 300.3900, L100.0100, L503.6005, L500.4050, L300.4310, M200.1000 ####[facility] [address] [place], [address] Calcium oxalate crystals LM Ql (Urine sed)Ordered By: Christian Mrelos on 06-16-2024 Urine Calcium Oxalate Crystals 2+ /hpf [facility] Chest 1 View (Portable)on Chest 1 View (Portable) Normal [facility] Comprehensive Metabolic Prof ilon 06-16-2024 Albumin [Mass/Vol] 2.7 g/dL Low 3.2-5.0 [facility] Comment on above: Performed By: #### L 300.3900, L100.0100, L503.6005, L500.4050, L300.4310, M200.1000 ####[facility] [address] [place], [address] Albumin/Globulin [Mass ratio] 0.6 {ratio} Low 0.9-2.4 [facility] Comment on above: Performed By: #### L 300.3900, L100.0100, L503.6005, L500.4050, L300.4310, M200.1000 ####[facility] [address] [place], [address] ALK P 143 U/L High 45-117 [facility] Comment on above: Performed By: #### L 300.3900, L100.0100, L503.6005, L500.4050, L300.4310, M200.1000 ####[facility] [address] [place], [address] ALT [Catalytic activity/Vol] 19 U/L Normal 16-61 [facility] Comment on above: Performed By: #### L 300.3900, L100.0100, L503.6005, L500.4050, L300.4310, M200.1000 ####[facility] [address] [place], [address] AST [Catalytic activity/Vol] 20 U/L Normal 15-37 [facility] Comment on above: Performed By: #### L 300.3900, L100.0100, L503.6005, L500.4050, L300.4310, M200.1000 ####[facility] [address] [place], [address] Bilirubin [Mass/Vol] 0.40 mg/dL Normal 0.20-1.00 [facility] Comment on above: Result Comment: For patients on eltrombopag therapy, use of Dimension [place] TBIL is not recommended. Performed By: #### L 300.3900, L100.0100, L503.6005, L500.4050, L300.4310, M200.1000 ####[facility] [address] [place], [address] BUN/CRE 15.7 RATIO Normal 10-20 [facility] Comment on above: Performed By: #### L 300.3900, L100.0100, L503.6005, L500.4050, L300.4310, M200.1000 ####[facility] [address] [place], [address] CA,Total 9.4 mg/dL Normal 8.5-10.1 [facility] Comment on above: Performed By: #### L 300.3900, L100.0100, L503.6005, L500.4050, L300.4310, M200.1000 ####[facility] [address] [place], [address] Chloride [Moles/Vol] 108 mmol/L High 98-107 [facility] Comment on above: Performed By: #### L 300.3900, L100.0100, L503.6005, L500.4050, L300.4310, M200.1000 ####[facility] [address] [place], [address] CO2 [Moles/Vol] 27.0 mmol/L Normal 21.0-32.0 [facility] Comment on above: Performed By: #### L 300.3900, L100.0100, L503.6005, L500.4050, L300.4310, M200.1000 ####[facility] [address] [place], [address] Creatinine [Mass/Vol] 0.70 mg/dL Normal 0.70-1.30 [facility] Comment on above: Result Comment: The validity of the calculated GFR GFRAA in patients over70 years has not been determined. Clinical correlation isessential. Performed By: #### L 300.3900, L100.0100, L503.6005, L500.4050, L300.4310, M200.1000 ####[facility] [address] [place], [address] ECRCL 108.01 ml/min Normal [facility] Comment on above: Performed By: #### L 300.3900, L100.0100, L503.6005, L500.4050, L300.4310, M200.1000 ####[facility] [address] [place], [address] EST GFR - AA 146 mL/min Normal >60 [facility] Comment on above: Result Comment: Afri can Montene[place] GFR Calc Performed By: #### L 300.3900, L100.0100, L503.6005, L500.4050, L300.4310, M200.1000 ####[facility] [address] [place], [address] GAP 5 Normal 5-15 [facility] Comment on above: Performed By: #### L 300.3900, L100.0100, L503.6005, L500.4050, L300.4310, M200.1000 ####[facility] [address] [place], [address] GFR/1.73 sq M.predicted among non-blacks MDRD (S/P/Bld) [Vol rate/Area] 121 mL/min/{1.73_m2} Normal >60 [facility] Comment on above: Result Comment: Non- GFR Calc Performed By: #### L 300.3900, L100.0100, L503.6005, L500.4050, L300.4310, M200.1000 ####[facility] [address] [place], [address] Globulin (S) [Mass/Vol] 4.8 g/dL High 2.2-4.2 [facility] Comment on above: Performed By: #### L 300.3900, L100.0100, L503.6005, L500.4050, L300.4310, M200.1000 ####[facility] [address] [place], [address] Glucose [Mass/Vol] 114 mg/dL High 74-106 [facility] Comment on above: Result Comment: Fast ing Glucose result from 100 to 125 mg/dLsuggests IMPAIRED HOMEOSTASIS per A.D.A. criteria. Performed By: #### L 300.3900, L100.0100, L503.6005, L500.4050, L300.4310, M200.1000 ####[facility] [address] [place], [address] Potassium [Moles/Vol] 3.7 mmol/L Normal 3.5-5.1 [facility] Comment on above: Performed By: #### L 300.3900, L100.0100, L503.6005, L500.4050, L300.4310, M200.1000 ####[facility] [address] [place], [address] Sodium [Moles/Vol] 140 mmol/L Normal 136-145 [facility] Comment on above: Performed By: #### L 300.3900, L100.0100, L503.6005, L500.4050, L300.4310, M200.1000 ####[facility] [address] [place], [place], [id number] T PROT 7.5 g/dL Normal 6.4-8.2 [facility] Comment on above: Performed By: #### L 300.3900, L100.0100, L503.6005, L500.4050, L300.4310, M200.1000 ####[facility] [address] [place], [address] Urea nitrogen [Mass/Vol] 11 mg/dL Normal 7-18 [facility] Comment on above: Performed By: #### L 300.3900, L100.0100, L503.6005, L500.4050, L300.4310, M200.1000 ####[facility] [address] [place], [address] Emergency Department Summary on 06-16-2024 Emergency Department Summary Normal [facility] Epithelial cells.squamous LM Ql (Urine sed)Ordered By: Christian Merlos on 06-16-2024 Epithelial cells.squamous LM.HPF (Urine sed) [#/Area] 0 /[HPF] 0-5 [facility] Glucose Ql (U)Ordered By: Rama Merlos on 06-16-2024 Urine Glucose (UA) Normal mg/dl Normal [facility] H AND P Exam - Hospitaliston 06-16-2024 H&P Exam - Hospitalist Normal [facility] Hyaline casts LM.LPF (Urine sed) [#/Area]Ordered By: Christian Merlos on 06-16-2024 Hyaline casts LM Ql (Urine sed) 0-5 SEEN /lpf 0-5 [facility] International normalized rat io (INR) calculationOrdered By: Christian Merlos on 06-16-2024 INR Coag (Bld) [Relative time] 1.1 {INR} [facility] Ketones Test strip Ql (U)Ord ered By: Christian Merlos on 06-16-2024 Ketones Ql (U) 5 mg/dl High Negative [facility] Lactic Acidon 06-16-2024 Lactate [Moles/Vol] 1.1 mmol/L Normal 0.4-1.9 [facility] Comment on above: Order Comment: Y Performed By: #### L 300.3900, L100.0100, L503.6005, L500.4050, L300.4310, M200.1000 ####[facility] [address] [place], [place], [id number] Lactic acid measurementOrder ed By: Christian Merlos on 06-16-2024 Lactate [Moles/Vol] 1.1 mmol/L 0.4-2.0 [facility] Microscopic analysis of urin e for red blood cells (RBC)Ordered By: Christian Merlos on 06-16-2024 Urine RBC 10-25 SEEN /hpf 0-5 [facility] Mucus LM Ql (Urine sed)Order ed By: Christian Merlos on 06-16-2024 Mucus Ql (Urine sed) 1+ /hpf [facility] Nitrite Test strip Ql (U)Ord ered By: Christian Merlos on 06-16-2024 Nitrite Ql (U) Positive High Negative [facility] Partial Thromboplast Timeon 06-16-2024 aPTT Coag (Bld) [Time] 43.2 s High 24.1-36.2 [facility] Comment on above: Performed By: #### L 300.3900, L100.0100, L503.6005, L500.4050, L300.4310, M200.1000 ####[facility] [address] [place], [address] Protein Test strip Ql (U)Ord ered By: Christian Merlos on 06-16-2024 Protein Ql (U) 30 mg/dl High Negative [facility] Prothrombin Time w/INRon INR Coag (PPP) [Relative time] 1.1 {INR} Normal [facility] Comment on above: Performed By: #### L 300.3900, L100.0100, L503.6005, L500.4050, L300.4310, M200.1000 ####[facility] [address] [place], [address] PT Coag (PPP) [Time] 13.9 s Normal 11.7-14.9 [facility] Comment on above: Performed By: #### L 300.3900, L100.0100, L503.6005, L500.4050, L300.4310, M200.1000 ####[facility] [address] [place], [address] Prothrombin timeOrdered By: Christian Merlos on 06-16-2024 PT Coag (PPP) [Time] 13.9 s 11.7-14.9 [facility] Urinalysis, Completeon 06-16 CA OX CRYSTAL 2+ /hpf Normal [facility] Comment on above: Order Comment: COLLE CTOR TO SPECIFY Performed By: #### M 100.2200, L400.0001 ####[facility] [address] [place], [address] CAST,HYALINE 0-5 SEEN Normal 0-5 [facility] Comment on above: Order Comment: COLLE CTOR TO SPECIFY Performed By: #### M 100.2200, L400.0001 ####[facility] [address] [place], [address] EPI,SQUAMOUS 0-5 SEEN Normal 0-5 [facility] Comment on above: Order Comment: ELMA CTOR TO SPECIFY Performed By: #### M 100.2200, L400.0001 ####[facility] [address] [place], [address] RBC 10-25 SEEN Normal 0-5 [facility] Comment on above: Order Comment: ELMA CTOR TO SPECIFY Performed By: #### M 100.2200, L400.0001 ####[facility] [address] [place], [address] BACTERIA 1+ /hpf Normal None Seen [facility] Comment on above: Order Comment: ELMA CTOR TO SPECIFY Performed By: #### M 100.2200, L400.0001 ####[facility] [address] [place], [address] WBC 50-100 SEEN Normal 0-5 [facility] Comment on above: Order Comment: ELMA CTOR TO SPECIFY Performed By: #### M 100.2200, L400.0001 ####[facility] [address] [place], [address] Mucus Ql (Urine sed) 1+ /hpf Normal [facility] Comment on above: Order Comment: ELMA CTOR TO SPECIFY Performed By: #### M 100.2200, L400.0001 ####[facility] [address] [place], [address] Urine blood detectionOrdered By: Christian Merlos on 06-16-2024 Urine Occult Blood 150 /ul High Negative [facility] Urine clarityOrdered By: Dorina Merlos on 06-16-2024 Clarity (U) Sl. Cloudy Clear [facility] Urine color determinationOrd ered By: Christian Merlos on 06-16-2024 Color (U) Yellow Yellow [facility] Urine cultureOrdered By: Dorina Merlos on 06-16-2024 Bacteria identified Cx Nom (U) GNR Poss Pseudomonas sp Abnormal [facility] Bacteria identified Cx Nom (U) Yeast, not Joleen albicans Abnormal [facility] Urine leukocyte esterase det ection by dipstickOrdered By: Christian Merlos on 06-16-2024 Leukocyte esterase Test strip Ql (U) 100 /ul High Negative [facility] Urine pHOrdered By: Christian Merlos on 06-16-2024 pH (U) 6.5 [pH] 5.0 - 8.0 [facility] Urine sediment bacteria coun t by microscopy (number/high power field)Ordered By: Christian Merlos on 06-16-2024 Bacteria LM.HPF (Urine sed) [#/Area] 1 /[HPF] None Seen [facility] Urine specific gravity measu rementOrdered By: Christian Merlos on 06-16-2024 Specific gravity (U) [Rel density] 1.015 1.002-1.03 0 [facility] Urobilinogen Ql (U)Ordered B y: Christian Merlos on 06-16-2024 Urine Urobilinogen Normal mg/dl Normal [facility] White blood cell countOrdere d By: Chirstian Merlos on 06-16-2024 Urine WBC 50-100 SEEN /hpf 0-5 [facility] aPTT Coag (PPP) [Time]Ordere d By: Christian Merlos on 06-16-2024 aPTT Coag (Bld) [Time] 43.2 s High 24.1-36.2 [facility] Absolute neutrophil countOrd ered By: Darian Arceo on 06-14-2024 Neutrophils (Bld) [#/Vol] 4.4 10*3/uL 2.0-7.7 [facility] Basic Metabolic Profile (BMP )on 06-14-2024 BUN/CRE 12.4 RATIO Normal 10-20 [facility] Comment on above: Performed By: #### L 100.0100, L500.2500 ####[facility] [address] [place], [place], [address] CA,Total 8.5 mg/dL Normal 8.5-10.1 [facility] Comment on above: Performed By: #### L 100.0100, L500.2500 ####[facility] [address] [place], [address] Chloride [Moles/Vol] 111 mmol/L High 98-107 [facility] Comment on above: Performed By: #### L 100.0100, L500.2500 ####[facility] [address] [place], [address] CO2 [Moles/Vol] 26.0 mmol/L Normal 21.0-32.0 [facility] Comment on above: Performed By: #### L 100.0100, L500.2500 ####[facility] [address] [place], [address] Creatinine [Mass/Vol] 0.81 mg/dL Normal 0.70-1.30 [facility] Comment on above: Result Comment: The validity of the calculated GFR GFRAA in patients over70 years has not been determined. Clinical correlation isessential. Performed By: #### L 100.0100, L500.2500 ####[facility] [address] [place], [address] ECRCL 106.44 ml/min Normal [facility] Comment on above: Performed By: #### L 100.0100, L500.2500 ####[facility] [address] [place], [address] EST GFR - AA 124 mL/min Normal >60 [facility] Comment on above: Result Comment: Afri can [place] GFR Calc Performed By: #### L 100.0100, L500.2500 ####[facility] [address] [place], [address] GAP 7 Normal 5-15 [facility] Comment on above: Performed By: #### L 100.0100, L500.2500 ####[facility] [address] [place], [address] GFR/1.73 sq M.predicted among non-blacks MDRD (S/P/Bld) [Vol rate/Area] 102 mL/min/{1.73_m2} Normal >60 [facility] Comment on above: Result Comment: Non- GFR Calc Performed By: #### L 100.0100, L500.2500 ####[facility] [address] [place], [address] Glucose [Mass/Vol] 161 mg/dL High 74-106 [facility] Comment on above: Result Comment: Fast ing Glucose result greater than or equal to 126 mg/dLsuggests DIABETES MELLITUS per A.D.A. criteria. Performed By: #### L 100.0100, L500.2500 ####[facility] [address] [place], [address] Potassium [Moles/Vol] 3.2 mmol/L Low 3.5-5.1 [facility] Comment on above: Performed By: #### L 100.0100, L500.2500 ####[facility] [address] [place], [address] Sodium [Moles/Vol] 144 mmol/L Normal 136-145 [facility] Comment on above: Performed By: #### L 100.0100, L500.2500 ####[facility] [address] [place], [address] Urea nitrogen [Mass/Vol] 10 mg/dL Normal 7-18 [facility] Comment on above: Performed By: #### L 100.0100, L500.2500 ####[facility] [address] [place], [address] Basophil percentageOrdered B y: Darian Arceo on 06-14-2024 Basophils/100 WBC (Bld) 0.6 % 0-1 [facility] Blood urea nitrogen (BUN)/cr eatinine ratioOrdered By: Darian Arceo on 06-14-2024 Urea nitrogen/Creatinine [Mass ratio] 12.4 mg/mg 10-20 [facility] CBC W/Diff, Automatedon 05-29 Absolute Lymph 2.62 X10 3/uL Normal 0.83-4.51 [facility] Comment on above: Performed By: #### L 100.0100, L500.2500 ####[facility] [address] [place], [address] Absolute Neut 4.4 X10 3/uL Normal 2.0-7.7 [facility] Comment on above: Performed By: #### L 100.0100, L500.2500 ####[facility] [address] [place], [address] Basophils/100 WBC (Bld) 0.6 % Normal 0-1 [facility] Comment on above: Performed By: #### L 100.0100, L500.2500 ####[facility] [address] [place], [address] Eosinophils/100 WBC (Bld) 6.1 % High 0-5 [facility] Comment on above: Performed By: #### L 100.0100, L500.2500 ####[facility] [address] [place], [address] Erythrocyte distribution width (RBC) [Ratio] 16.3 % High 11.6-14.6 [facility] Comment on above: Performed By: #### L 100.0100, L500.2500 ####[facility] [address] [place], [address] Hematocrit (Bld) [Volume fraction] 40.4 % Normal 40-54 [facility] Comment on above: Performed By: #### L 100.0100, L500.2500 ####[facility] [address] [place], [address] Hemoglobin (Bld) [Mass/Vol] 12.9 g/dL Low 13.0-16. 5 [facility] Comment on above: Performed By: #### L 100.0100, L500.2500 ####[facility] [address] [place], [address] IG% 0.500 Normal 0.0-0.9 [facility] Comment on above: Result Comment: IG% - Immature Granulocytes (promyelocytes, myelocytes andmetamyelocytes) > 1% indicates that a LEFT SHIFT is Present. Performed By: #### L 100.0100, L500.2500 ####[facility] [address] [place], [address] Lymphocytes/100 WBC (Bld) 30.6 % Normal 19-41 [facility] Comment on above: Performed By: #### L 100.0100, L500.2500 ####[facility] [address] [place], [address] MCH (RBC) [Entitic mass] 27.8 pg Normal 27.0-32.0 [facility] Comment on above: Performed By: #### L 100.0100, L500.2500 ####[facility] [address] [place], [address] MCHC (RBC) [Mass/Vol] 31.9 g/dL Low 32-36 [facility] Comment on above: Performed By: #### L 100.0100, L500.2500 ####[facility] [address] [place], [address] MCV (RBC) [Entitic vol] 87.1 fL Normal 80-94 [facility] Comment on above: Performed By: #### L 100.0100, L500.2500 ####[facility] [address] [place], [address] Monocytes/100 WBC (Bld) 11.4 % High 0-10 [facility] Comment on above: Performed By: #### L 100.0100, L500.2500 ####[facility] [address] [place], [address] Neutrophils/100 WBC (Bld) 50.8 % Normal 47-70 [facility] Comment on above: Performed By: #### L 100.0100, L500.2500 ####[facility] [address] [place], [address] Nucleated RBC (Bld) [#/Vol] 0 10*3/uL Normal 0-5 [facility] Comment on above: Performed By: #### L 100.0100, L500.2500 ####[facility] [address] [place], [address] Platelet mean volume (Bld) [Entitic vol] 9.0 fL Normal 6.2-12.0 [facility] Comment on above: Performed By: #### L 100.0100, L500.2500 ####[facility] [address] [place], [address] Platelets (Bld) [#/Vol] 340 10*3/uL Normal 150-450 [facility] Comment on above: Performed By: #### L 100.0100, L500.2500 ####[facility] [address] [place], [address] RBC (Bld) [#/Vol] 4.64 10*6/uL Normal 4.6-6.2 [facility] Comment on above: Performed By: #### L 100.0100, L500.2500 ####[facility] [address] [place], [address] RDW SD 51.2 fl High 35.1-43.9 [facility] Comment on above: Performed By: #### L 100.0100, L500.2500 ####[facility] [address] [place], [address] WBC (Bld) [#/Vol] 8.6 10*3/uL Normal 4.4-11.0 [facility] Comment on above: Performed By: #### L 100.0100, L500.2500 ####[facility] [address] [place], [address] Carbon dioxide measurementOr dered By: Darian Arceo on 06-14-2024 CO2 [Moles/Vol] 26.0 mmol/L 21.0-32.0 [facility] Chloride measurementOrdered By: Darian Arceo on 06-14-2024 Chloride [Moles/Vol] 111 mmol/L High 98-107 [facility] Consultation - Infectious Dx on 06-14-2024 Consultation - Infectious Dx Normal [facility] Discharge Instructionon 05-29 Discharge Instruction Normal [facility] Eosinophil percentageOrdered By: Darian Arceo on 06-14-2024 Eosinophils/100 WBC (Bld) 6.1 % High 0-5 [facility] Erythrocyte distribution wid th (RBC) [Ratio]Ordered By: Darian Arceo on 06-14-2024 Erythrocyte distribution width (RBC) [Entitic vol] 51.2 fL High 35.1-43.9 [facility] Erythrocyte distribution wid th ratioOrdered By: Darian Arceo on 06-14-2024 Erythrocyte distribution width (RBC) [Ratio] 16.3 % High 11.6-14.6 [facility] Estimated glomerular filtrat ion rate (GFR) AmericanOrdered By: Darian Arceo on 06-14-2024 Estimated GFR (MDRD) Amer 124 mL/min >60 [facility] Comment on above: GFR Calc Estimation of creatinine elzbieta aranceOrdered By: Darian Arceo on 06-14-2024 Estimated Creatinine Clearance Calc 106.44 ml/min [facility] Glomerular filtration rate ( GFR) estimationOrdered By: Darian Arceo on 06-14-2024 Estimated GFR (MDRD) Non-Af Amer 102 mL/min >60 [facility] Comment on above: Non- GFR Calc Glucose measurementOrdered B y: Darian Arceo on 06-14-2024 Glucose [Mass/Vol] 161 mg/dL High 74-106 [facility] Comment on above: Fasting Glucose resu lt greater than or equal to 126 mg/dL suggests DIABETES MELLITUS per A.D.A. criteria. Hematocrit Auto (Bld) [Volum e fraction]Ordered By: Darian Arceo on 06-14-2024 Hematocrit (Bld) [Volume fraction] 40.4 % 40-54 [facility] Hemoglobin measurementOrdere d By: Darian Arceo on 06-14-2024 Hemoglobin (Bld) [Mass/Vol] 12.9 g/dL Low 13.0-16. 5 [facility] Immature granulocytes/100 WB C Auto (Bld)Ordered By: Darian Arceo on 06-14-2024 Immature granulocytes/100 WBC (Bld) 0.500 % 0.0-0.9 [facility] Comment on above: IG% - Immature Granu locytes (promyelocytes, myelocytes and metamyelocytes) > 1% indicates that a LEFT SHIFT is Present. Lymphocytes Auto (Unsp spec) [#/Vol]Ordered By: Darian Arceo on 06-14-2024 Lymphocytes (Bld) [#/Vol] 2.62 10*3/uL 0.83-4.5 1 [facility] Lymphocytes/100 WBC Auto (Un sp spec)Ordered By: Darian Arceo on 06-14-2024 Lymphocytes/100 WBC (Bld) 30.6 % 19-41 [facility] MCV (mean corpuscular volume ) determinationOrdered By: Darian Arceo on 06-14-2024 MCV (RBC) [Entitic vol] 87.1 fL 80-94 [facility] Mean corpuscular hemoglobin (MCH) determinationOrdered By: Darian Arceo on 06-14-2024 MCH (RBC) [Entitic mass] 27.8 pg 27.0-32.0 [facility] Mean corpuscular hemoglobin concentration (MCHC) determinationOrdered By: Darian Arceo on 06-14-2024 MCHC (RBC) [Mass/Vol] 31.9 g/dL Low 32-36 [facility] Mean platelet volume determi nationOrdered By: Darian Arceo on 06-14-2024 Platelet mean volume (Bld) [Entitic vol] 9.0 fL 6.2-12.0 [facility] Monocyte percentageOrdered B y: Darian Arceo on 06-14-2024 Monocytes/100 WBC (Bld) 11.4 % High 0-10 [facility] Neutrophil percentageOrdered By: Darian Arceo on 06-14-2024 Neutrophils/100 WBC (Bld) 50.8 % 47-70 [facility] Nucleated red blood cell per centageOrdered By: Darian Arceo on 06-14-2024 Nucleated RBC/100 WBC (Bld) [Ratio] 0 % 0-5 [facility] Platelet countOrdered By: Joellen Arceo on 06-14-2024 Platelets (Bld) [#/Vol] 340 10*3/uL 150-450 [facility] Potassium measurementOrdered By: Darian Arceo on 06-14-2024 Potassium [Moles/Vol] 3.2 mmol/L Low 3.5-5.1 [facility] RBC Auto (Bld) [#/Vol]Ordere d By: Darian Arceo on 06-14-2024 RBC (Bld) [#/Vol] 4.64 10*6/uL 4.6-6.2 [facility] Serum anion gap measurementO rdered By: Darian Arceo on 06-14-2024 Anion gap [Moles/Vol] 7 mmol/L 5-15 [facility] Serum or plasma calcium shantal urement (mass/volume)Ordered By: Darian Arceo on 06-14-2024 Calcium [Mass/Vol] 8.5 mg/dL 8.5-10.1 [facility] Serum or plasma creatinine m easurement [...] 06-14-2024 Urea nitrogen [Mass/Vol] 10 mg/dL 7-18 [facility] Sodium levelOrdered By: Danny Arceo on 06-14-2024 Sodium [Moles/Vol] 144 mmol/L 136-145 [facility] Urine Cultureon 06-14-2024 URC Normal [facility] Comment on above: Performed By: #### M 100.2200 ####[facility] [address] [place], [address] White blood cell (WBC) count Ordered By: Darian Arceo on 06-14-2024 WBC (Bld) [#/Vol] 8.6 10*3/uL 4.4-11.0 [facility] Basic Metabolic Profile (BMP )on 06-13-2024 BUN/CRE 17.2 RATIO Normal 10-20 [facility] Comment on above: Performed By: #### L 100.0100, L500.2500 ####[facility] [address] [place], [address] CA,Total 8.4 mg/dL Low 8.5-10.1 [facility] Comment on above: Performed By: #### L 100.0100, L500.2500 ####[facility] [address] [place], [address] Chloride [Moles/Vol] 108 mmol/L High 98-107 [facility] Comment on above: Performed By: #### L 100.0100, L500.2500 ####[facility] [address] [place], [address] CO2 [Moles/Vol] 24.0 mmol/L Normal 21.0-32.0 [facility] Comment on above: Performed By: #### L 100.0100, L500.2500 ####[facility] [address] [place], [address] Creatinine [Mass/Vol] 0.64 mg/dL Low 0.70-1.30 [facility] Comment on above: Result Comment: The validity of the calculated GFR GFRAA in patients over70 years has not been determined. Clinical correlation isessential. Performed By: #### L 100.0100, L500.2500 ####[facility] [address] [place], [address] ECRCL 134.72 ml/min Normal [facility] Comment on above: Performed By: #### L 100.0100, L500.2500 ####[facility] [address] [place], [address] EST GFR - AA 163 mL/min Normal >60 [facility] Comment on above: Result Comment: Afri can Mont[place] GFR Calc Performed By: #### L 100.0100, L500.2500 ####[facility] [address] [place], [address] GAP 8 Normal 5-15 [facility] Comment on above: Performed By: #### L 100.0100, L500.2500 ####[facility] [address] [place], [address] GFR/1.73 sq M.predicted among non-blacks MDRD (S/P/Bld) [Vol rate/Area] 134 mL/min/{1.73_m2} Normal >60 [facility] Comment on above: Result Comment: Non- GFR Calc Performed By: #### L 100.0100, L500.2500 ####[facility] [address] [place], [address] Glucose [Mass/Vol] 95 mg/dL Normal 74-106 [facility] Comment on above: Performed By: #### L 100.0100, L500.2500 ####[facility] [address] [place], [address] Potassium [Moles/Vol] 3.2 mmol/L Low 3.5-5.1 [facility] Comment on above: Performed By: #### L 100.0100, L500.2500 ####[facility] [address] [place], [address] Sodium [Moles/Vol] 140 mmol/L Normal 136-145 [facility] Comment on above: Performed By: #### L 100.0100, L500.2500 ####[facility] [address] [place], [address] Urea nitrogen [Mass/Vol] 11 mg/dL Normal 7-18 [facility] Comment on above: Performed By: #### L 100.0100, L500.2500 ####[facility] [address] [place], [address] CBC W/Diff, Automatedon - Absolute Lymph 2.73 X10 3/uL Normal 0.83-4.51 [facility] Comment on above: Performed By: #### L 100.0100, L500.2500 ####[facility] [address] [place], [address] Absolute Neut 4.2 X10 3/uL Normal 2.0-7.7 [facility] Comment on above: Performed By: #### L 100.0100, L500.2500 ####[facility] [address] [place], [address] Basophils/100 WBC (Bld) 0.4 % Normal 0-1 [facility] Comment on above: Performed By: #### L 100.0100, L500.2500 ####[facility] [address] [place], [address] Eosinophils/100 WBC (Bld) 3.5 % Normal 0-5 [facility] Comment on above: Performed By: #### L 100.0100, L500.2500 ####[facility] [address] [place], [address] Erythrocyte distribution width (RBC) [Ratio] 15.9 % High 11.6-14.6 [facility] Comment on above: Performed By: #### L 100.0100, L500.2500 ####[facility] [address] [place], [address] Hematocrit (Bld) [Volume fraction] 40.3 % Normal 40-54 [facility] Comment on above: Performed By: #### L 100.0100, L500.2500 ####[facility] [address] [place], [address] Hemoglobin (Bld) [Mass/Vol] 13.0 g/dL Normal 13.0-16. 5 [facility] Comment on above: Performed By: #### L 100.0100, L500.2500 ####[facility] [address] [place], [address] IG% 0.200 Normal 0.0-0.9 [facility] Comment on above: Result Comment: IG% - Immature Granulocytes (promyelocytes, myelocytes andmetamyelocytes) > 1% indicates that a LEFT SHIFT is Present. Performed By: #### L 100.0100, L500.2500 ####[facility] [address] [place], [address] Lymphocytes/100 WBC (Bld) 33.7 % Normal 19-41 [facility] Comment on above: Performed By: #### L 100.0100, L500.2500 ####[facility] [address] [place], [address] MCH (RBC) [Entitic mass] 27.4 pg Normal 27.0-32.0 [facility] Comment on above: Performed By: #### L 100.0100, L500.2500 ####[facility] [address] [place], [address] MCHC (RBC) [Mass/Vol] 32.3 g/dL Normal 32-36 [facility] Comment on above: Performed By: #### L 100.0100, L500.2500 ####[facility] [address] [place], [address] MCV (RBC) [Entitic vol] 84.8 fL Normal 80-94 [facility] Comment on above: Performed By: #### L 100.0100, L500.2500 ####[facility] [address] [place], [address] Monocytes/100 WBC (Bld) 10.6 % High 0-10 [facility] Comment on above: Performed By: #### L 100.0100, L500.2500 ####[facility] [address] [place], [address] Neutrophils/100 WBC (Bld) 51.6 % Normal 47-70 [facility] Comment on above: Performed By: #### L 100.0100, L500.2500 ####[facility] [address] [place], [address] Nucleated RBC (Bld) [#/Vol] 0 10*3/uL Normal 0-5 [facility] Comment on above: Performed By: #### L 100.0100, L500.2500 ####[facility] [address] [place], [address] Platelet mean volume (Bld) [Entitic vol] 9.0 fL Normal 6.2-12.0 [facility] Comment on above: Performed By: #### L 100.0100, L500.2500 ####[facility] [address] [place], [address] Platelets (Bld) [#/Vol] 311 10*3/uL Normal 150-450 [facility] Comment on above: Performed By: #### L 100.0100, L500.2500 ####[facility] [address] [place], [address] RBC (Bld) [#/Vol] 4.75 10*6/uL Normal 4.6-6.2 [facility] Comment on above: Performed By: #### L 100.0100, L500.2500 ####[facility] [address] [place], [address] RDW SD 49.3 fl High 35.1-43.9 [facility] Comment on above: Performed By: #### L 100.0100, L500.2500 ####[facility] [address] [place], [address] WBC (Bld) [#/Vol] 8.1 10*3/uL Normal 4.4-11.0 [facility] Comment on above: Performed By: #### L 100.0100, L500.2500 ####[facility] [address] [place], [address] Folates, (Folic Acid)on 05-29 FOLATES 46.60 ng/mL Normal 3.1-55.4 [facility] Comment on above: Order Comment: Has P atient had X-rays with Contrast this admission? NN Performed By: #### L 506.0250, L501.9520, L505.5000, L503.0105 ####[facility] [address] [place], [address] Folic acid measurementOrdere d By: Ronak Cui on 06-12-2024 Folate 46.60 ng/mL 3.1-55.4 [facility] Legionella Antigen Urineon 0 06-12-2024 LEGU Normal [facility] Comment on above: Performed By: #### M 300.4600, M300.4500 ####[facility] [address] [place], [address] Methadone, urineOrdered By: Ronak Cui on 06-12-2024 Urine Methadone Screen Negative < 300 ng/mL [facility] No Panel InformationOrdered By: Ronak Cui on 06-12-2024 Urine Drug Screen Comment [facility] Comment on above: CONFIRMATORY TESTING FOR [...] Ql (U) Positive High < 300 ng/mL [facility] Strep pneumoniae Antig(UR,CS F)on 06-12-2024 STPAG Normal [facility] Comment on above: Performed By: #### M 300.4600, M300.4500 ####[facility] [address] [place], [place], [address] TSH QnOrdered By: Ronak muro on 06-12-2024 Thyroid Stimulating Hormone (TSH) 4.130 uIU/mL High 0.358-3.74 0 [facility] Thyroid Stim Hormone (TSH)on 06-12-2024 TSH 4.130 uIU/mL High 0.358-3.74 0 [facility] Comment on above: Order Comment: Has P atient had X-rays with Contrast this admission? NN Performed By: #### L 506.0250, L501.9520, L505.5000, L503.0105 ####[facility] [address] [place], [address] Urine Drug Screen (VISTA)on 06-12-2024 AMPHETAMINES Negative Normal <1000 ng/mL [facility] Comment on above: Performed By: #### L 506.0250, L501.9520, L505.5000, L503.0105 ####[facility] [address] [place], [address] BARBITIURATES Negative Normal < 200 ng/mL [facility] Comment on above: Performed By: #### L 506.0250, L501.9520, L505.5000, L503.0105 ####[facility] [address] [place], [address] BENZODIAZIPINE Negative Normal < 200 ng/mL [facility] Comment on above: Performed By: #### L 506.0250, L501.9520, L505.5000, L503.0105 ####[facility] [address] [place], [address] COCAINE Negative Normal < 300 ng/mL [facility] Comment on above: Performed By: #### L 506.0250, L501.9520, L505.5000, L503.0105 ####[facility] [address] [place], [address] ECSTACY Negative Normal < 500 ng/mL [facility] Comment on above: Performed By: #### L 506.0250, L501.9520, L505.5000, L503.0105 ####[facility] [address] [place] [address] METHADONE Negative Normal < 300 ng/mL [facility] Comment on above: Performed By: #### L 506.0250, L501.9520, L505.5000, L503.0105 ####[facility] [address] [place], [address] OPIATES Positive Abnormal < 300 ng/mL [facility] Comment on above: Performed By: #### L 506.0250, L501.9520, L505.5000, L503.0105 ####[facility] [address] [place], [address] PCP Negative Normal < 25 ng/mL [facility] Comment on above: Performed By: #### L 506.0250, L501.9520, L505.5000, L503.0105 ####[facility] [address] [facility] [address] THC Positive Abnormal < 50 ng/mL [facility] Comment on above: Performed By: #### L 506.0250, L501.9520, L505.5000, L503.0105 ####[facility] [address] [place], [address] VISTA UDS PH 5 Normal [facility] Comment on above: Performed By: #### L 506.0250, L501.9520, L505.5000, L503.0105 ####[facility] [address] [place], [address] Urine amphetamine measuremen tOrdered By: Ronak Cui on 06-12-2024 Amphetamines Ql (U) Negative <1000 ng/mL [facility] Urine barbiturates measureme ntOrdered By: Ronak Cui on 06-12-2024 Urine Barbiturates Screen Negative < 200 ng/mL [facility] Urine benzodiazepine levelOr dered By: Ronak Cui on 06-12-2024 Benzodiazepines Ql (U) Negative < 200 ng/mL [facility] Urine cocaine levelOrdered B y: Ronak Cui on 06-12-2024 Cocaine Ql (U) Negative < 300 ng/mL [facility] Urine gozna-2-bguzgunpyoadmi abinol (THC) measurementOrdered By: Ronak Cui on 06-12-2024 Cannabinoids Screen Ql (U) Positive High < 50 ng/m L [facility] Urine methylenedioxymethamph etamine (MDMA) measurementOrdered By: Ronak Cui on 06-12-2024 MDMA (Ecstasy) Screen Negative < 500 ng/mL [facility] Urine phencyclidine (PCP) de tectionOrdered By: Ronak Cui on 06-12-2024 Phencyclidine Ql (U) Negative < 25 ng/mL [facility] Vitamin B12on 06-12-2024 Cobalamin (Vitamin B12) [Mass/Vol] 551 pg/mL Normal 211-911 [facility] Comment on above: Performed By: #### L 506.0250, L501.9520, L505.5000, L503.0105 ####[facility] [address] [place], [address] Vitamin B12 measurementOrder ed By: Ronak Cui on 06-12-2024 Cobalamin (Vitamin B12) [Mass/Vol] 551 pg/mL 211-911 [facility] Albumin to globulin ratioOrd ered By: Alma Rosa Sheehanelizabeth on 06-11-2024 Albumin/Globulin [Mass ratio] 0.6 {ratio} Low 0.9-2.4 [facility] Bilirubin Test strip Ql (U)O rdered By: Alma Rosa Kasia on 06-11-2024 Bilirubin Ql (U) Negative Negative [facility] Bilirubin, totalOrdered By: Alma Rosa Kasia on 06-11-2024 Bilirubin [Mass/Vol] 0.40 mg/dL 0.20-1.00 [facility] Comment on above: For patients on eltr ombopag therapy, use of Dimension [place] TBIL is not recommended. Blood cultureOrdered By: Marquita Kasia on 06-11-2024 Bacteria identified Cx Nom (Bld) No growth in 5 days. [facility] Bacteria identified Cx Nom (Bld) No growth in 5 days. [facility] CBC W/Diff, Automatedon 05-29 Absolute Lymph 2.16 X10 3/uL Normal 0.83-4.51 [facility] Comment on above: Performed By: #### L 500.4050, L100.0100, L503.6005, L501.4020 ####[facility] [address] [place], [address] Absolute Neut 9.6 X10 3/uL High 2.0-7.7 [facility] Comment on above: Performed By: #### L 500.4050, L100.0100, L503.6005, L501.4020 ####[facility] [address] [place], [address] Basophils/100 WBC (Bld) 0.3 % Normal 0-1 [facility] Comment on above: Performed By: #### L 500.4050, L100.0100, L503.6005, L501.4020 ####[facility] [address] [place], [address] Eosinophils/100 WBC (Bld) 0.7 % Normal 0-5 [facility] Comment on above: Performed By: #### L 500.4050, L100.0100, L503.6005, L501.4020 ####[facility] [address] [place], [address] Erythrocyte distribution width (RBC) [Ratio] 16.1 % High 11.6-14.6 [facility] Comment on above: Performed By: #### L 500.4050, L100.0100, L503.6005, L501.4020 ####[facility] [address] [place], [address] Hematocrit (Bld) [Volume fraction] 47.0 % Normal 40-54 [facility] Comment on above: Performed By: #### L 500.4050, L100.0100, L503.6005, L501.4020 ####[facility] [address] [place], [address] Hemoglobin (Bld) [Mass/Vol] 15.4 g/dL Normal 13.0-16. 5 [facility] Comment on above: Performed By: #### L 500.4050, L100.0100, L503.6005, L501.4020 ####[facility] [address] [place], [address] IG% 0.400 Normal 0.0-0.9 [facility] Comment on above: Result Comment: IG% - Immature Granulocytes (promyelocytes, myelocytes andmetamyelocytes) > 1% indicates that a LEFT SHIFT is Present. Performed By: #### L 500.4050, L100.0100, L503.6005, L501.4020 ####[facility] [address] [place], [address] Lymphocytes/100 WBC (Bld) 17.0 % Low 19-41 [facility] Comment on above: Performed By: #### L 500.4050, L100.0100, L503.6005, L501.4020 ####[facility] [address] [place], [address] MCH (RBC) [Entitic mass] 27.6 pg Normal 27.0-32.0 [facility] Comment on above: Performed By: #### L 500.4050, L100.0100, L503.6005, L501.4020 ####[facility] [address] [place], [address] MCHC (RBC) [Mass/Vol] 32.8 g/dL Normal 32-36 [facility] Comment on above: Performed By: #### L 500.4050, L100.0100, L503.6005, L501.4020 ####[facility] [address] [place], [address] MCV (RBC) [Entitic vol] 84.2 fL Normal 80-94 [facility] Comment on above: Performed By: #### L 500.4050, L100.0100, L503.6005, L501.4020 ####[facility] [address] [place], [address] Monocytes/100 WBC (Bld) 6.0 % Normal 0-10 [facility] Comment on above: Performed By: #### L 500.4050, L100.0100, L503.6005, L501.4020 ####[facility] [address] [place], [address] Neutrophils/100 WBC (Bld) 75.6 % High 47-70 [facility] Comment on above: Performed By: #### L 500.4050, L100.0100, L503.6005, L501.4020 ####[facility] [address] [place], [address] Nucleated RBC (Bld) [#/Vol] 0 10*3/uL Normal 0-5 [facility] Comment on above: Performed By: #### L 500.4050, L100.0100, L503.6005, L501.4020 ####[facility] [address] [place], [address] Platelet mean volume (Bld) [Entitic vol] 8.9 fL Normal 6.2-12.0 [facility] Comment on above: Performed By: #### L 500.4050, L100.0100, L503.6005, L501.4020 ####[facility] [address] [place], [address] Platelets (Bld) [#/Vol] 416 10*3/uL Normal 150-450 [facility] Comment on above: Performed By: #### L 500.4050, L100.0100, L503.6005, L501.4020 ####[facility] [address] [place], [address] RBC (Bld) [#/Vol] 5.58 10*6/uL Normal 4.6-6.2 [facility] Comment on above: Performed By: #### L 500.4050, L100.0100, L503.6005, L501.4020 ####[facility] [address] [place], [address] RDW SD 48.9 fl High 35.1-43.9 [facility] Comment on above: Performed By: #### L 500.4050, L100.0100, L503.6005, L501.4020 ####[facility] [address] [place], [address] WBC (Bld) [#/Vol] 12.7 10*3/uL High 4.4-11.0 [facility] Comment on above: Performed By: #### L 500.4050, L100.0100, L503.6005, L501.4020 ####[facility] [address] [place], [address] Calcium oxalate crystals LM Ql (Urine sed)Ordered By: Alma Rosa Pedroza on 06-11-2024 Urine Calcium Oxalate Crystals 1+ /hpf [facility] Chest 1 View (Portable)on Chest 1 View (Portable) Normal [facility] Chest without Contraston Chest without Contrast Normal [facility] Comprehensive Metabolic Prof ilon 06-11-2024 Albumin [Mass/Vol] 2.8 g/dL Low 3.2-5.0 [facility] Comment on above: Order Comment: 'TROP ' Serial specimen #1, #2 or #3: 1 Performed By: #### L 500.4050, L100.0100, L503.6005, L501.4020 ####[facility] [address] [place], [address] Albumin/Globulin [Mass ratio] 0.6 {ratio} Low 0.9-2.4 [facility] Comment on above: Order Comment: 'TROP ' Serial specimen #1, #2 or #3: 1 Performed By: #### L 500.4050, L100.0100, L503.6005, L501.4020 ####[facility] [address] [place], [address] ALK P 168 U/L High 45-117 [facility] Comment on above: Order Comment: 'TROP ' Serial specimen #1, #2 or #3: 1 Performed By: #### L 500.4050, L100.0100, L503.6005, L501.4020 ####[facility] [address] [place], [address] ALT [Catalytic activity/Vol] 10 U/L Low 16-61 [facility] Comment on above: Order Comment: 'TROP ' Serial specimen #1, #2 or #3: 1 Performed By: #### L 500.4050, L100.0100, L503.6005, L501.4020 ####[facility] [address] [place], [address] AST [Catalytic activity/Vol] 10 U/L Low 15-37 [facility] Comment on above: Order Comment: 'TROP ' Serial specimen #1, #2 or #3: 1 Performed By: #### L 500.4050, L100.0100, L503.6005, L501.4020 ####[facility] [address] [place], [address] Bilirubin [Mass/Vol] 0.40 mg/dL Normal 0.20-1.00 [facility] Comment on above: Order Comment: 'TROP ' Serial specimen #1, #2 or #3: 1 Result Comment: For patients on eltrombopag therapy, use of Dimension [place] TBIL is not recommended. Performed By: #### L 500.4050, L100.0100, L503.6005, L501.4020 ####[facility] [address] [place], [address] BUN/CRE 19.7 RATIO Normal 10-20 [facility] Comment on above: Order Comment: 'TROP ' Serial specimen #1, #2 or #3: 1 Performed By: #### L 500.4050, L100.0100, L503.6005, L501.4020 ####[facility] [address] [place], [address] CA,Total 9.5 mg/dL Normal 8.5-10.1 [facility] Comment on above: Order Comment: 'TROP ' Serial specimen #1, #2 or #3: 1 Performed By: #### L 500.4050, L100.0100, L503.6005, L501.4020 ####[facility] [address] [place], [address] Chloride [Moles/Vol] 106 mmol/L Normal 98-107 [facility] Comment on above: Order Comment: 'TROP ' Serial specimen #1, #2 or #3: 1 Performed By: #### L 500.4050, L100.0100, L503.6005, L501.4020 ####[facility] [address] [place], [address] CO2 [Moles/Vol] 25.0 mmol/L Normal 21.0-32.0 [facility] Comment on above: Order Comment: 'TROP ' Serial specimen #1, #2 or #3: 1 Performed By: #### L 500.4050, L100.0100, L503.6005, L501.4020 ####[facility] [address] [place], [address] Creatinine [Mass/Vol] 0.61 mg/dL Low 0.70-1.30 [facility] Comment on above: Order Comment: 'TROP ' Serial specimen #1, #2 or #3: 1 Result Comment: The validity of the calculated GFR GFRAA in patients over70 years has not been determined. Clinical correlation isessential. Performed By: #### L 500.4050, L100.0100, L503.6005, L501.4020 ####[facility] [address] [place], [address] ECRCL 123.95 ml/min Normal [facility] Comment on above: Order Comment: 'TROP ' Serial specimen #1, #2 or #3: 1 Performed By: #### L 500.4050, L100.0100, L503.6005, L501.4020 ####[facility] [address] [place], [address] EST GFR - AA 172 mL/min Normal >60 [facility] Comment on above: Order Comment: 'TROP ' Serial specimen #1, #2 or #3: 1 Result Comment: Afri can [place] GFR Calc Performed By: #### L 500.4050, L100.0100, L503.6005, L501.4020 ####[facility] [address] [place], [address] GAP 9 Normal 5-15 [facility] Comment on above: Order Comment: 'TROP ' Serial specimen #1, #2 or #3: 1 Performed By: #### L 500.4050, L100.0100, L503.6005, L501.4020 ####[facility] [address] [place], [address] GFR/1.73 sq M.predicted among non-blacks MDRD (S/P/Bld) [Vol rate/Area] 142 mL/min/{1.73_m2} Normal >60 [facility] Comment on above: Order Comment: 'TROP ' Serial specimen #1, #2 or #3: 1 Result Comment: Non- GFR Calc Performed By: #### L 500.4050, L100.0100, L503.6005, L501.4020 ####[facility] [address] [place], [address] Globulin (S) [Mass/Vol] 5.0 g/dL High 2.2-4.2 [facility] Comment on above: Order Comment: 'TROP ' Serial specimen #1, #2 or #3: 1 Performed By: #### L 500.4050, L100.0100, L503.6005, L501.4020 ####[facility] [address] [place], [address] Glucose [Mass/Vol] 107 mg/dL High 74-106 [facility] Comment on above: Order Comment: 'TROP ' Serial specimen #1, #2 or #3: 1 Result Comment: Fast ing Glucose result from 100 to 125 mg/dLsuggests IMPAIRED HOMEOSTASIS per A.D.A. criteria. Performed By: #### L 500.4050, L100.0100, L503.6005, L501.4020 ####[facility] [address] [place], [address] Potassium [Moles/Vol] 3.4 mmol/L Low 3.5-5.1 [facility] Comment on above: Order Comment: 'TROP ' Serial specimen #1, #2 or #3: 1 Performed By: #### L 500.4050, L100.0100, L503.6005, L501.4020 ####[facility] [address] [place], [address] Sodium [Moles/Vol] 140 mmol/L Normal 136-145 [facility] Comment on above: Order Comment: 'TROP ' Serial specimen #1, #2 or #3: 1 Performed By: #### L 500.4050, L100.0100, L503.6005, L501.4020 ####[facility] [address] [place], [address] T PROT 7.8 g/dL Normal 6.4-8.2 [facility] Comment on above: Order Comment: 'TROP ' Serial specimen #1, #2 or #3: 1 Performed By: #### L 500.4050, L100.0100, L503.6005, L501.4020 ####[facility] [address] [place], [address] Urea nitrogen [Mass/Vol] 12 mg/dL Normal 7-18 [facility] Comment on above: Order Comment: 'TROP ' Serial specimen #1, #2 or #3: 1 Performed By: #### L 500.4050, L100.0100, L503.6005, L501.4020 ####[facility] [address] [place], [address] Emergency Department Summary on 06-11-2024 Emergency Department Summary Normal [facility] Epithelial cells.squamous LM Ql (Urine sed)Ordered By: Alma Rosa Pedroza on 06-11-2024 Epithelial cells.squamous LM.HPF (Urine sed) [#/Area] 0 /[HPF] 0-5 [facility] Glucose Ql (U)Ordered By: Julia Pedroza on 06-11-2024 Urine Glucose (UA) Normal mg/dl Normal [facility] H AND P Exam - Hospitaliston 06-11-2024 H&P Exam - Hospitalist Normal [facility] HIP, UNI W/ Pelvis 2-3 Views on 06-11-2024 HIP, UNI W/ Pelvis 2-3 Views Normal [facility] Influenza virus A and B and SARS-CoV-2 (COVID-19) and Respiratory syncytial virus RNAOrdered By: Alma Rosa Pedroza on 06-11-2024 SARS-CoV-2 (COVID-19) RNA ZEKE+probe Ql (Unsp spec) [facility] Ketones Test strip Ql (U)Ord ered By: Alma Rosa Pedroza on 06-11-2024 Ketones Ql (U) 150 mg/dl Abnormal Negative [facility] Comment on above: CRITICAL VALUE *HCRI TICAL VALUE CALLED TO FELTUI32/14/25 1805 Lilian Multani.RESULTS READ BACK BY SAME. L. pneumophila Ag Ql (U)Orde red By: Ronak Cui on 06-11-2024 Legionella Antigen [facility] L501.4020on 06-11-2024 TROPONIN-I HS 6 pg/mL Normal 3.0-78.0 [facility] Comment on above: Order Comment: 'TROP ' Serial specimen #1, #2 or #3: 1 Result Comment: Plea se Note: New Test Units and Gender Specific Reference Ranges. For more information see Policy Stat Procedure [place] High Sensitivity Troponin (TNIH) and attachments. Performed By: #### L 500.4050, L100.0100, L503.6005, L501.4020 ####[facility] [address] [place], [place], [id number] Laboratory - Chemistry and C hemistry - challengeOrdered By: Alma Rosa Pedroza on 06-11-2024 AST [Catalytic activity/Vol] 10 U/L Low 15-37 [facility] Lactic Acidon 06-11-2024 Lactate [Moles/Vol] 1.4 mmol/L Normal 0.4-1.9 [facility] Comment on above: Order Comment: Y Performed By: #### L 500.4050, L100.0100, L503.6005, L501.4020 ####[facility] [address] [place], [place], [address] Lactic acid measurementOrder ed By: Alma Rosa Pedroza on 06-11-2024 Lactate [Moles/Vol] 1.4 mmol/L 0.4-2.0 [facility] M100.678on 06-11-2024 M100.678 Pending SARS-CoV-2 (COVID 19) Negative INFLUENZA A Negative INFLUENZA B Negative RSV PCR Negative Normal [facility] Comment on above: Performed By: #### M 100.678, L400.0001 ####[facility] [address] [place], [place], [address] Microscopic analysis of urin e for red blood cells (RBC)Ordered By: Alma Rosa Pedroza on 06-11-2024 Urine RBC 25-50 SEEN /hpf 0-5 [facility] Mucus LM Ql (Urine sed)Order ed By: Alma Rosa Pedroza on 06-11-2024 Mucus Ql (Urine sed) 2+ /hpf [facility] Nitrite Test strip Ql (U)Ord ered By: Alma Rosa Pedroza on 06-11-2024 Nitrite Ql (U) Positive High Negative [facility] Protein Test strip Ql (U)Ord ered By: Alma Rosa Pedroza on 06-11-2024 Protein Ql (U) 100 mg/dl High Negative [facility] Serum globulin measurementOr dered By: Alma Rosa Pedroza on 06-11-2024 Globulin (S) [Mass/Vol] 5.0 g/dL High 2.2-4.2 [facility] Serum or plasma alanine hooper otransferase (ALT) measurementOrdered By: Alma Rosa Pedroza on 06-11-2024 ALT [Catalytic activity/Vol] 10 U/L Low 16-61 [facility] Serum or plasma albumin shantal urement (mass/volume)Ordered By: Alma Rosa Pedroza on 06-11-2024 Albumin [Mass/Vol] 2.8 g/dL Low 3.2-5.0 [facility] Serum or plasma alkaline radha sphatase measurementOrdered By: Alma Rosa Kasia on 06-11-2024 ALP [Catalytic activity/Vol] 168 U/L High 45-117 [facility] Streptococcus pneumoniae ant igen assayOrdered By: Ronak Cui on 06-11-2024 Streptococcus pneumoniae Antigen (M [facility] Total proteinOrdered By: Marquita parr Kasia on 06-11-2024 Protein [Mass/Vol] 7.8 g/dL 6.4-8.2 [facility] Troponin IOrdered By: Alma Rosa Kasia on 06-11-2024 Troponin I High Sensitivity 6 pg/mL 3.0-78.0 [facility] Comment on above: Please Note: New Tanya t Units and Gender Specific Reference Ranges. For more information see Policy Stat Procedure [place] High Sensitivity Troponin (TNIH) and attachments. Urinalysis, Completeon 06-11 BACTERIA 4+ /hpf Normal None Seen [facility] Comment on above: Order Comment: ELMA CTOR TO SPECIFY Performed By: #### M 100.678, L400.0001 ####[facility] [address] [place], [address] CA OX CRYSTAL 1+ /hpf Normal [facility] Comment on above: Order Comment: ELMA CTOR TO SPECIFY Performed By: #### M 100.678, L400.0001 ####[facility] [address] [place], [address] EPI,SQUAMOUS 0-5 SEEN Normal 0-5 [facility] Comment on above: Order Comment: ELMA CTOR TO SPECIFY Performed By: #### M 100.678, L400.0001 ####[facility] [address] [place], [address] Mucus Ql (Urine sed) 2+ /hpf Normal [facility] Comment on above: Order Comment: ELMA CTOR TO SPECIFY Performed By: #### M 100.678, L400.0001 ####[facility] [address] [place], [address] RBC 25-50 SEEN Normal 0-5 [facility] Comment on above: Order Comment: ELMA CTOR TO SPECIFY Performed By: #### M 100.678, L400.0001 ####[facility] [address] [place], [place], [address] WBC >100 SEEN Normal 0-5 [facility] Comment on above: Order Comment: ELMA CTOR TO SPECIFY Performed By: #### M 100.678, L400.0001 ####[facility] [address] [place], [place], [address] Urine blood detectionOrdered By: Alma Rosa Pedroza on 06-11-2024 Urine Occult Blood 250 /ul High Negative [facility] Urine clarityOrdered By: Marquita Pedroza on 06-11-2024 Clarity (U) Cloudy Clear [facility] Urine color determinationOrd ered By: Alma Rosa Pedroza on 06-11-2024 Color (U) Yellow Yellow [facility] Urine cultureOrdered By: Marquita Pedroza on 06-11-2024 Bacteria identified Cx Nom (U) Pseudomonas aeruginosa Abnormal [facility] Urine leukocyte esterase det ection by dipstickOrdered By: Alma Rosa Pedroza on 06-11-2024 Leukocyte esterase Test strip Ql (U) 500 /ul High Negative [facility] Urine pHOrdered By: Alma Rosa Zeng gur on 06-11-2024 pH (U) 6.0 [pH] 5.0 - 8.0 [facility] Urine sediment bacteria coun t by microscopy (number/high power field)Ordered By: Alma Rosa Pedroza on 06-11-2024 Bacteria LM.HPF (Urine sed) [#/Area] 4 /[HPF] None Seen [facility] Urine specific gravity measu rementOrdered By: Alma Rosa Pedroza on 06-11-2024 Specific gravity (U) [Rel density] 1.025 1.002-1.03 0 [facility] Urobilinogen Ql (U)Ordered B y: Alma Rosa Pedroza on 06-11-2024 Urine Urobilinogen Normal mg/dl Normal [facility] Venous Duplex Imag/Limited/U nion 06-11-2024 Venous Duplex Imag/Limited/Uni Normal [facility] White blood cell countOrdere d By: Alma Rosa Pedroza on 06-11-2024 Urine WBC >100 SEEN /hpf 0-5 [facility] CNPAlyssa 05-06-2024 CNPN Telephone (AGPOB1) BAUTISTA RUFFIN ([id number]) 1960 M Date Time Provider Department 05/06/24 HETAL GALLEGOS ADELEB1 During your visit today, we recorded the following information about you: Stacy Gongora 05/06/2024 8:17 AM Signed ----- Message from Hetal Gallegos MD sent at 05/04/2024 12:05 PM EST ----- Follow-up in 3 weeks please Stacy Gongora 05/06/2024 8:17 AM Signed I called the patient to schedule an appointment with [facility] in 3 weeks. I left a [...] Status:Closed by STACY GONGORA on 05/10/24 Normal [facility] Basic Metabolic Profile (BMP )on 05-03-2024 BUN/CRE 15.2 RATIO Normal 10-20 [facility] Comment on above: Performed By: #### L 500.2500, L100.0100 ####[facility] [address] [place], [address] CA,Total 9.4 mg/dL Normal 8.5-10.1 [facility] Comment on above: Performed By: #### L 500.2500, L100.0100 ####[facility] [address] [place], [address] Chloride [Moles/Vol] 106 mmol/L Normal 98-107 [facility] Comment on above: Performed By: #### L 500.2500, L100.0100 ####[facility] [address] [place], [address] CO2 [Moles/Vol] 33.0 mmol/L High 21.0-32.0 [facility] Comment on above: Performed By: #### L 500.2500, L100.0100 ####[facility] [address] [place], [address] Creatinine [Mass/Vol] 0.92 mg/dL Normal 0.70-1.30 [facility] Comment on above: Result Comment: The validity of the calculated GFR GFRAA in patients over70 years has not been determined. Clinical correlation isessential. Performed By: #### L 500.2500, L100.0100 ####[facility] [address] [place], [address] ECRCL 82.18 ml/min Normal [facility] Comment on above: Performed By: #### L 500.2500, L100.0100 ####[facility] [address] [place], [address] EST GFR - AA 106 mL/min Normal >60 [facility] Comment on above: Result Comment: Afri can [place] GFR Calc Performed By: #### L 500.2500, L100.0100 ####[facility] [address] [place], [address] GAP 2 Low 5-15 [facility] Comment on above: Performed By: #### L 500.2500, L100.0100 ####[facility] [address] [place], [address] GFR/1.73 sq M.predicted among non-blacks MDRD (S/P/Bld) [Vol rate/Area] 88 mL/min/{1.73_m2} Normal >60 [facility] Comment on above: Result Comment: Non- GFR Calc Performed By: #### L 500.2500, L100.0100 ####[facility] [address] [place], [address] Glucose [Mass/Vol] 97 mg/dL Normal 74-106 [facility] Comment on above: Performed By: #### L 500.2500, L100.0100 ####[facility] [address] [place], [address] Potassium [Moles/Vol] 4.1 mmol/L Normal 3.5-5.1 [facility] Comment on above: Performed By: #### L 500.2500, L100.0100 ####[facility] [address] [place], [address] Sodium [Moles/Vol] 140 mmol/L Normal 136-145 [facility] Comment on above: Performed By: #### L 500.2500, L100.0100 ####[facility] [address] [place], [address] Urea nitrogen [Mass/Vol] 14 mg/dL Normal 7-18 [facility] Comment on above: Performed By: #### L 500.2500, L100.0100 ####[facility] [address] [place], [address] Basic metabolic 2000 panelon 05-03-2024 Anion gap [Moles/Vol] 10 mmol/L Normal 8-15 [facility] Comment on above: Order Comment: Speci men Type: BLOOD SPECIMEN Ordering Facility: [facility] Address: [address] [place] [address] Performed By: #### 2 4321-2 #### [facility] CLIA [id number] 1 [place] [address] [place] Calcium [Mass/Vol] 9.1 mg/dL Normal 8.5-10.2 [facility] Comment on above: Order Comment: Speci men Type: BLOOD SPECIMEN Ordering Facility: [facility] Address: [address] [place] [address] Performed By: #### 2 4321-2 #### [facility] CLIA [id number] 1 [place] [address] [place] Chloride [Moles/Vol] 106 mmol/L Normal 98-107 [facility] Comment on above: Order Comment: Speci men Type: BLOOD SPECIMEN Ordering Facility: [facility] Address: [address] [place] [address] Performed By: #### 2 4321-2 #### [facility] CLIA [id number] 1 [place] [address] [place] CO2 [Moles/Vol] 26 mmol/L Normal 22-30 [facility] Comment on above: Order Comment: Speci men Type: BLOOD SPECIMEN Ordering Facility: [facility] Address: [address] [place] [address] Performed By: #### 2 4321-2 #### [facility] CLIA [id number] 1 [place] [address] [place] Creatinine [Mass/Vol] 0.79 mg/dL Normal 0.73-1.22 [facility] Comment on above: Order Comment: Soha bray Type: BLOOD SPECIMEN Ordering Facility: [facility] Address: [address] [place] [address] Performed By: #### 2 4321-2 #### [facility] CLIA [id number] [address] [place] Creatinine and Glomerular filtration rate.predicted panel (S/P/Bld) 100 mL/min/1.73m??? Normal >=60 [facility] Comment on above: Order Comment: Soha bray Type: BLOOD SPECIMEN Ordering Facility: [facility] Address: [address] [place] [address] Result Comment: Carey mated Glomerular Filtration Rate [...] By: #### 2 4321-2 #### [facility] CLIA [id number] [address] [place] [address] [place] Glucose [Mass/Vol] 92 mg/dL Normal 74-99 [facility] Comment on above: Order Comment: Soha bray Type: BLOOD SPECIMEN Ordering Facility: [facility] Address: [address] [place] [address] Result Comment: The [place] Diabetes Association (ADA) provides guidance for cutoff [...] Standards of Medical Care in Diabetes 2016, [place] [employer]. Diabetes Care. 2016.39(Suppl 1). Performed By: #### 2 4321-2 #### [facility] CLIA [id number] 1 [place] [address] [place] Potassium [Moles/Vol] 4.3 mmol/L Normal 3.7-5.1 [facility] Comment on above: Order Comment: Speci men Type: BLOOD SPECIMEN Ordering Facility: [facility] Address: [address] [place] [address] Performed By: #### 2 4321-2 #### [facility] CLIA [id number] 1 [place] [address] [place] Sodium [Moles/Vol] 142 mmol/L Normal 136-144 [facility] Comment on above: Order Comment: Speci men Type: BLOOD SPECIMEN Ordering Facility: [facility] Address: [address] [place] [address] Performed By: #### 2 4321-2 #### [facility] CLIA [id number] [address] [place] Urea nitrogen [Mass/Vol] 13 mg/dL Normal 9-24 [facility] Comment on above: Order Comment: Speci men Type: BLOOD SPECIMEN Ordering Facility: [facility] Address: [address] [place] [address] Performed By: #### 2 4321-2 #### [facility] CLIA [id number] [address] [place] CBC W Auto Differential pane l (Bld)on 05-03-2024 Basophils (Bld) [#/Vol] 0.07 10*3/uL Normal <0.11 [facility] Comment on above: Order Comment: Speci men Type: BLOOD SPECIMEN Ordering Facility: [facility] Address: [address] [place] [address] Performed By: #### 5 7021-8 #### [facility] CLIA [id number] [address] [place] Basophils/100 WBC (Bld) 0.5 % Normal A [facility] Comment on above: Order Comment: Speci men Type: BLOOD SPECIMEN Ordering Facility: [facility] Address: [address] [place] [address] Performed By: #### 5 7021-8 #### [facility] CLIA [id number] [address] [place] Differential cell count method Nom (Bld) Auto Normal [facility] Comment on above: Order Comment: Speci men Type: BLOOD SPECIMEN Ordering Facility: [facility] Address: [address] [place] [address] Performed By: #### 5 7021-8 #### [facility] CLIA [id number] [address] [place] Eosinophils (Bld) [#/Vol] 0.47 10*3/uL High <0.46 [facility] Comment on above: Order Comment: Speci men Type: BLOOD SPECIMEN Ordering Facility: [facility] Address: [address] [place] [address] Performed By: #### 5 7021-8 #### [facility] CLIA [id number] [address] [place] Eosinophils/100 WBC (Bld) 3.2 % Normal [facility] Comment on above: Order Comment: Speci men Type: BLOOD SPECIMEN Ordering Facility: [facility] Address: [address] [place] [address] Performed By: #### 5 7021-8 #### [facility] CLIA [id number] [address] [place] Erythrocyte distribution width (RBC) [Ratio] 18.1 % High 11.5-15.0 [facility] Comment on above: Order Comment: Speci men Type: BLOOD SPECIMEN Ordering Facility: [facility] Address: [address] [place] [address] Performed By: #### 5 7021-8 #### [facility] CLIA [id number] [address] [place] Hematocrit (Bld) [Volume fraction] 49.5 % Normal 39.0-51.0 [facility] Comment on above: Order Comment: Speci men Type: BLOOD SPECIMEN Ordering Facility: [facility] Address: [address] [place] [address] Performed By: #### 5 7021-8 #### [facility] CLIA [id number] [address] [place] Hemoglobin (Bld) [Mass/Vol] 16.3 g/dL Normal 13.0-17. 0 [facility] Comment on above: Order Comment: Speci men Type: BLOOD SPECIMEN Ordering Facility: [facility] Address: [address] [place] [address] Performed By: #### 5 7021-8 #### [facility] CLIA [id number] [address] [place] Immature granulocytes (Bld) [#/Vol] 0.08 10*3/uL Normal <0.10 [facility] Comment on above: Order Comment: Speci men Type: BLOOD SPECIMEN Ordering Facility: [facility] Address: [address] [place] [address] Performed By: #### 5 7021-8 #### [facility] CLIA [id number] [address] [place] Immature granulocytes/100 WBC (Bld) 0.5 % Normal [facility] Comment on above: Order Comment: Speci men Type: BLOOD SPECIMEN Ordering Facility: [facility] Address: [address] [place] [address] Performed By: #### 5 7021-8 #### [facility] CLIA [id number] [address] [place] Lymphocytes (Bld) [#/Vol] 3.35 10*3/uL Normal 1.00-4.0 0 [facility] Comment on above: Order Comment: Speci men Type: BLOOD SPECIMEN Ordering Facility: [facility] Address: [address] [place] [address] Performed By: #### 5 7021-8 #### [facility] CLIA [id number] [address] [place] Lymphocytes/100 WBC (Bld) 22.8 % Normal [facility] Comment on above: Order Comment: Speci men Type: BLOOD SPECIMEN Ordering Facility: [facility] Address: [address] [place] [address] Performed By: #### 5 7021-8 #### [facility] CLIA [id number] [address] MCH (RBC) [Entitic mass] 28.6 pg Normal 26.0-34.0 [facility] Comment on above: Order Comment: Speci men Type: BLOOD SPECIMEN Ordering Facility: [facility] Address: [address] [place] [address] Performed By: #### 5 7021-8 #### [facility] CLIA [id number] [address] MCHC (RBC) [Mass/Vol] 32.9 g/dL Normal 30.5-36.0 [facility] Comment on above: Order Comment: Speci men Type: BLOOD SPECIMEN Ordering Facility: [facility] Address: [address] [place] [address] Performed By: #### 5 7021-8 #### [facility] CLIA [id number] [address] MCV (RBC) [Entitic vol] 86.8 fL Normal 80.0-100.0 [facility] Comment on above: Order Comment: Speci men Type: BLOOD SPECIMEN Ordering Facility: [facility] Address: [address] [place] [address] Performed By: #### 5 7021-8 #### [facility] CLIA [id number] [address] Monocytes (Bld) [#/Vol] 1.45 10*3/uL High <0.87 [facility] Comment on above: Order Comment: Speci men Type: BLOOD SPECIMEN Ordering Facility: [facility] Address: [address] [place] [address] Performed By: #### 5 7021-8 #### [facility] CLIA [id number] [address] [place] Monocytes/100 WBC (Bld) 9.9 % Normal A [facility] Comment on above: Order Comment: Speci men Type: BLOOD SPECIMEN Ordering Facility: [facility] Address: [address] [place] [address] Performed By: #### 5 7021-8 #### [facility] CLIA [id number] 1 [place] [address] [place] Neutrophils (Bld) [#/Vol] 9.29 10*3/uL High 1.45-7.5 0 [facility] Comment on above: Order Comment: Speci men Type: BLOOD SPECIMEN Ordering Facility: [facility] Address: [address] [place] [address] Performed By: #### 5 7021-8 #### [facility] CLIA [id number] [address] [place] Neutrophils/100 WBC (Bld) 63.1 % Normal [facility] Comment on above: Order Comment: Speci men Type: BLOOD SPECIMEN Ordering Facility: [facility] Address: [address] [place] [address] Performed By: #### 5 7021-8 #### [facility] CLIA [id number] [address] [place] Nucleated RBC (Bld) [#/Vol] 10*3/uL Normal <0.01 [facility] Comment on above: Order Comment: Speci men Type: BLOOD SPECIMEN Ordering Facility: [facility] Address: [address] [place] [address] Performed By: #### 5 7021-8 #### [facility] CLIA [id number] [address] [place] Nucleated RBC/100 WBC (Bld) [Ratio] 0.0 /100 WBC Normal [facility] Comment on above: Order Comment: Speci men Type: BLOOD SPECIMEN Ordering Facility: [facility] Address: [address] [place] [address] Performed By: #### 5 7021-8 #### [facility] CLIA [id number] [address] [place] Platelet mean volume (Bld) [Entitic vol] 9.5 fL Normal 9.0-12.7 [facility] Comment on above: Order Comment: Speci men Type: BLOOD SPECIMEN Ordering Facility: [facility] Address: [address] [place] [address] Performed By: #### 5 7021-8 #### [facility] CLIA [id number] [address] [place] Platelets (Bld) [#/Vol] 268 10*3/uL Normal 150-400 [facility] Comment on above: Order Comment: Speci men Type: BLOOD SPECIMEN Ordering Facility: [facility] Address: [address] [place] [address] Performed By: #### 5 7021-8 #### [facility] CLIA [id number] [address] RBC (Bld) [#/Vol] 5.70 10*6/uL Normal 4.20-6.00 [facility] Comment on above: Order Comment: Speci men Type: BLOOD SPECIMEN Ordering Facility: [facility] Address: [address] [place] [address] Performed By: #### 5 7021-8 #### [facility] CLIA [id number] [address] [place] WBC (Bld) [#/Vol] 14.71 10*3/uL High 3.70-11.00 [facility] Comment on above: Order Comment: Speci men Type: BLOOD SPECIMEN Ordering Facility: [facility] Address: [address] [place] [address] Performed By: #### 5 7021-8 #### [facility] CLIA [id number] [address] [place] CBC W/Diff, Automatedon 12-0 6-4 Absolute Lymph 3.24 X10 3/uL Normal 0.83-4.51 [facility] Comment on above: Performed By: #### L 500.2500, L100.0100 ####[facility] [address] [place], [address] Absolute Neut 7.8 X10 3/uL High 2.0-7.7 [facility] Comment on above: Performed By: #### L 500.2500, L100.0100 ####[facility] [address] [place], [address] Basophils/100 WBC (Bld) 0.5 % Normal 0-1 [facility] Comment on above: Performed By: #### L 500.2500, L100.0100 ####[facility] [address] [place], [address] Eosinophils/100 WBC (Bld) 3.5 % Normal 0-5 [facility] Comment on above: Performed By: #### L 500.2500, L100.0100 ####[facility] [address] [place], [address] Erythrocyte distribution width (RBC) [Ratio] 18.0 % High 11.6-14.6 [facility] Comment on above: Performed By: #### L 500.2500, L100.0100 ####[facility] [address] [place], [address] Hematocrit (Bld) [Volume fraction] 53.3 % Normal 40-54 [facility] Comment on above: Performed By: #### L 500.2500, L100.0100 ####[facility] [address] [place], [address] Hemoglobin (Bld) [Mass/Vol] 17.0 g/dL High 13.0-16. 5 [facility] Comment on above: Performed By: #### L 500.2500, L100.0100 ####[facility] [address] [place], [address] IG% 0.400 Normal 0.0-0.9 [facility] Comment on above: Result Comment: IG% - Immature Granulocytes (promyelocytes, myelocytes andmetamyelocytes) > 1% indicates that a LEFT SHIFT is Present. Performed By: #### L 500.2500, L100.0100 ####[facility] [address] [place], [address] Lymphocytes/100 WBC (Bld) 25.4 % Normal 19-41 [facility] Comment on above: Performed By: #### L 500.2500, L100.0100 ####[facility] [address] [place], [address] MCH (RBC) [Entitic mass] 27.6 pg Normal 27.0-32.0 [facility] Comment on above: Performed By: #### L 500.2500, L100.0100 ####[facility] [address] [place], [address] MCHC (RBC) [Mass/Vol] 31.9 g/dL Low 32-36 [facility] Comment on above: Performed By: #### L 500.2500, L100.0100 ####[facility] [address] [place], [address] MCV (RBC) [Entitic vol] 86.4 fL Normal 80-94 [facility] Comment on above: Performed By: #### L 500.2500, L100.0100 ####[facility] [address] [place], [address] Monocytes/100 WBC (Bld) 8.8 % Normal 0-10 [facility] Comment on above: Performed By: #### L 500.2500, L100.0100 ####[facility] [address] [place], [address] Neutrophils/100 WBC (Bld) 61.4 % Normal 47-70 [facility] Comment on above: Performed By: #### L 500.2500, L100.0100 ####[facility] [address] [place], [address] Nucleated RBC (Bld) [#/Vol] 0 10*3/uL Normal 0-5 [facility] Comment on above: Performed By: #### L 500.2500, L100.0100 ####[facility] [address] [place], [address] Platelet mean volume (Bld) [Entitic vol] 9.6 fL Normal 6.2-12.0 [facility] Comment on above: Performed By: #### L 500.2500, L100.0100 ####[facility] [address] [place], [address] Platelets (Bld) [#/Vol] 299 10*3/uL Normal 150-450 [facility] Comment on above: Performed By: #### L 500.2500, L100.0100 ####[facility] [address] [place], [address] RBC (Bld) [#/Vol] 6.17 10*6/uL Normal 4.6-6.2 [facility] Comment on above: Performed By: #### L 500.2500, L100.0100 ####[facility] [address] [place], [address] RDW SD 53.9 fl High 35.1-43.9 [facility] Comment on above: Performed By: #### L 500.2500, L100.0100 ####[facility] [address] [place], [address] WBC (Bld) [#/Vol] 12.8 10*3/uL High 4.4-11.0 [facility] Comment on above: Performed By: #### L 500.2500, L100.0100 ####[facility] [address] [place], [address] CONSULTon 05-03-2024 CONSULT HNO ID: [id number] Author: HETAL GALLEGOS MD Service: Orthopaedic Surgery [...] ThighPain HPI:64 year old male presented to [facility] ED on 05/03/2024 for evaluation of right thigh pain. The patient is paraplegic at baseline and is bed bound. He states he has some minimal sensation in the lower extremities. His home sales consultant was moving his leg for range of [...] MD Orthopaedic Surgery 05/03/2024 10:08 PM Normal [facility] ED NOTEon 05-03-2024 ED NOTE HNO ID: [id number] Author: BILLY COOLEY RN Service: ? 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 Dr. Grissom notified. Normal [facility] ED NOTE HNO ID: [id number] Author: WAYNE LAMBERT Medic Service: ? Author Type: Bottom Liner and Forms Builder Type: ED Notes Filed: 05/03/2024 16:34 Note Text: Bed: 26-ED Expected date: 05/03/24 Expected time: 4:12 PM Means of arrival: [facility] Comments: Squad when clean Normal [facility] ED PROV NOTEon 05-03-2024 ED PROV NOTE HNO ID: [id number] Author: LESLIE STRANGE MD Service: Emergency Medicine Author Type: Physician Type: ED Provider Notes Filed: 05/08/2024 09:35 Note Text: ED Provider Note Patient Name: Bautista Ruffin : 1960 SERVICE DATE: 05/03/24 History Patient presents with: Hip Pain: Patient arrives to ED from [facility] for ortho consult. Patient has right hip fracture. Occurred during PT/OT while moving leg. Patient is paraplegic. Received 50mcg of fentanyl before arrival. Patient presents as a transfer from [place] for right hip fracture. Patient has past [...] right femur fracture. He was transferred to [facility] for Ortho consult. PAST MEDICAL HISTORY Diagnosis [...] however he (more content not included)... Normal [facility] Emergency Department Summary on 05-03-2024 Emergency Department Summary Normal [facility] HIP, UNI W/ Pelvis 2-3 Views on 05-03-2024 HIP, UNI W/ Pelvis 2-3 Views Normal [facility] XR FEMUR 2V AP/LAT RTon XR [...] KNEE may be obtained, as clinically warranted. University Administrator: MILAGROS Transcribe Date/Time: May 03 2024 8:06P Dictated by : ERNESTO CORRALES MD This examination was interpreted and the report reviewed and electronically signed by: ERNESTO CORRALES MD on May 03 2024 8:11PM EST [id number] Normal [facility] XR HIP 3V PELV+ AP/LAT RTon 05-03-2024 [...] KNEE may be obtained, as clinically warranted. University Administrator: PSCChris Transcribe Date/Time: May 03 2024 8:06P Dictated by : ERNESTO CORRALES MD This examination was interpreted and the report reviewed and electronically signed by: ERNESTO CORRALES MD on May 03 2024 8:11PM EST [id number] Normal [facility] Absolute lymphocyte countOrd ered By: Adan Bell on 10-09-2023 Lymphocytes Auto (Unsp spec) [#/Vol] 3.10 10*3/uL 0.83-4.51 [facility] Automated lymphocyte count a s percentage of total leukocytesOrdered By: Adan Bell on 10-09-2023 Lymphocytes/100 WBC Auto (Unsp spec) 16.3 % 19-41 [facility] Basophil percentageOrdered B y: Adan Bell on 10-09-2023 Basophils/100 WBC (Bld) 0.6 % 0-1 [facility] Chloride [Moles/Vol] 100 mmol/L 98-107 [facility] Eosinophils/100 WBC (Bld) 0.8 % 0-5 [facility] Glucose [Mass/Vol] 124 mg/dL 74-106 [facility] Comment on above: Fasting Glucose resu lt from 100 to 125 mg/dL suggests IMPAIRED HOMEOSTASIS per A.D.A. criteria. Hemoglobin (Bld) [Mass/Vol] 16.5 g/dL 13.0-16. 5 [facility] Monocytes/100 WBC (Bld) 15.1 % 0-10 [facility] Neutrophils (Bld) [#/Vol] 12.6 10*3/uL 2.0-7.7 [facility] Neutrophils/100 WBC (Bld) 66.7 % 47-70 [facility] Potassium [Moles/Vol] 3.6 mmol/L 3.5-5.1 [facility] Sodium [Moles/Vol] 136 mmol/L 136-145 [facility] WBC (Bld) [#/Vol] 19.0 10*3/uL 4.4-11.0 [facility] Blood manual differential co mment interpretation (narrative result)Ordered By: Adan Bell on 10-09-2023 Manual differential comment Isrrael (Bld) [Interp] SCANNED [facility] Comment on above: MONOCYTOSIS PRESENT Determination of erythrocyte mean corpuscular volume (MCV)Ordered By: Adan Bell on 10-09-2023 MCV (RBC) [Entitic vol] 84.3 fL 80-94 [facility] Erythrocyte distribution wid th ratioOrdered By: Adan Bell on 10-09-2023 Erythrocyte distribution width (RBC) [Ratio] 14.9 % 11.6-14.6 [facility] Erythrocyte distribution wid th standard deviationOrdered By: Adan Bell on 10-09-2023 Erythrocyte distribution width (RBC) [Entitic vol] 45.5 fL 35.1-43.9 [facility] Hematocrit Auto (Bld) [Volum e fraction]Ordered By: Adan Bell on 10-09-2023 Hematocrit (Bld) [Volume fraction] 50.0 % 40-54 [facility] Immature granulocytes/100 WB C Auto (Bld)Ordered By: Adan Bell on 10-09-2023 Immature granulocytes/100 WBC (Bld) 0.500 % 0.0-0.9 [facility] Comment on above: IG% - Immature Granu locytes (promyelocytes, myelocytes and metamyelocytes) > 1% indicates that a LEFT SHIFT is Present. Laboratory - Chemistry and C hemistry - challengeOrdered By: Adan Bell on 10-09-2023 CO2 [Moles/Vol] 26.0 mmol/L 21.0-32.0 [facility] Urea nitrogen/Creatinine [Mass ratio] 17.3 mg/mg 10-20 [facility] Laboratory - Hematology and Cell countsOrdered By: Adan Bell on 10-09-2023 MCH (RBC) [Entitic mass] 27.8 pg 27.0-32.0 [facility] MCHC (RBC) [Mass/Vol] 33.0 g/dL 32-36 [facility] Nucleated RBC/100 WBC (Bld) [Ratio] 0 % 0-5 [facility] Platelet mean volume (Bld) [Entitic vol] 9.5 fL 6.2-12.0 [facility] Platelets (Bld) [#/Vol] 531 10*3/uL 150-450 [facility] No Panel InformationOrdered By: Adan Bell on 10-09-2023 Troponin I High Sensitivity 7 pg/mL 3.0-78.0 [facility] Comment on above: Please Note: New Tanya t Units and Gender Specific Reference Ranges. For more information see Policy Stat Procedure [place] High Sensitivity Troponin (TNIH) and attachments. Estimated GFR (MDRD) Amer 135 mL/min >60 [facility] Comment on above: GFR Calc Estimated GFR (MDRD) Non-Af Amer 112 mL/min >60 [facility] Comment on above: Non- GFR Calc RBC Auto (Bld) [#/Vol]Ordere d By: Adan Bell on 10-09-2023 RBC (Bld) [#/Vol] 5.93 10*6/uL 4.6-6.2 [facility] Review by pathologistOrdered By: Adan Bell on 10-09-2023 Pathologist review Isrrael (Unsp spec) [Interp] May foll [facility] Serum or plasma calcium shantal urement (mass/volume)Ordered By: Adan Bell on 10-09-2023 Calcium [Mass/Vol] 9.7 mg/dL 8.5-10.1 [facility] Serum or plasma creatinine m easurement [...] 10-09-2023 Urea nitrogen [Mass/Vol] 13 mg/dL 7-18 [facility] Thin prep Papanicolaou smear with manual screeningOrdered By: Adan Bell on 10-09-2023 Thin prep Papanicolaou smear with manual screening 10 5-15 [facility] Absolute lymphocyte counton 06-06-2022 Lymphocytes Auto (Unsp spec) [#/Vol] 3.07 10*3/uL 0.83-4.51 [facility] Work Phone: Basophil percentageon 2022 Basophil percentage 10-25 SEEN /hpf 0-5 [facility] Work Phone: Basophils/100 WBC (Bld) 0.3 % 0-1 [facility] Work Phone: Chloride [Moles/Vol] 109 mmol/L 98-107 [facility] Work Phone: Eosinophils/100 WBC (Bld) 1.4 % 0-5 [facility] Work Phone: Glucose [Mass/Vol] 93 mg/dL 74-106 [facility] Work Phone: Neutrophils (Bld) [#/Vol] 10.5 10*3/uL 2.0-7.7 [facility] Work Phone: Neutrophils/100 WBC (Bld) 67.2 % 47-70 [facility] Work Phone: Potassium [Moles/Vol] 3.8 mmol/L 3.5-5.1 [facility] Work Phone: Sodium [Moles/Vol] 143 mmol/L 136-145 [facility] Work Phone: WBC (Bld) [#/Vol] 15.7 10*3/uL 4.4-11.0 [facility] Work Phone: [phone] Bilirubin Test strip Ql (U)o n 06-06-2022 Bilirubin Ql (U) Negative Negative [facility] Work Phone: Blood erythrocytes count (nu mber/volume)on 06-06-2022 RBC (Bld) [#/Vol] 5.18 10*6/uL 4.6-6.2 [facility] Work Phone: Blood hemoglobin measurement (mass/volume)on 06-06-2022 Hemoglobin (Bld) [Mass/Vol] 14.2 g/dL 13.0-16. 5 [facility] Work Phone: Blood lymphocytes/100 leukoc yteson 06-06-2022 Lymphocytes/100 WBC (Bld) 19.6 % 19-41 [facility] Work Phone: Blood manual differential co mment interpretation (narrative result)on 06-06-2022 Manual differential comment Isrrael (Bld) [Interp] SCANNED [facility] Work Phone: Blood monocytes/100 leukocyt eson 06-06-2022 Monocytes/100 WBC (Bld) 10.9 % 0-10 [facility] Work Phone: Blood platelet mean volumeon 06-06-2022 Platelet mean volume (Bld) [Entitic vol] 9.5 fL 6.2-12.0 [facility] Work Phone: Determination of erythrocyte mean corpuscular volume (MCV)on 06-06-2022 MCV (RBC) [Entitic vol] 87.1 fL 80-94 [facility] Work Phone: Hematocrit Auto (Bld) [Volum e fraction]on 06-06-2022 Hematocrit (Bld) [Volume fraction] 45.1 % 40-54 [facility] Work Phone: Ketones Test strip Ql (U)on 06-06-2022 Ketones Ql (U) 5 mg/dl Negative [facility] Work Phone: Laboratory - Chemistry and C hemistry - challengeon 06-06-2022 CO2 [Moles/Vol] 29.0 mmol/L 21.0-32.0 [facility] Work Phone: Urea nitrogen/Creatinine [Mass ratio] 21.8 mg/mg 10-20 [facility] Work Phone: Laboratory - Hematology and Cell countson 06-06-2022 Erythrocyte distribution width (RBC) [Entitic vol] 49.6 fL 35.1-43.9 [facility] Work Phone: Erythrocyte distribution width (RBC) [Ratio] 15.7 % 11.6-14.6 [facility] Work Phone: Immature granulocytes/100 WBC (Bld) 0.600 % 0.0-0.9 [facility] Work Phone: Comment on above: IG% - Immature Granu locytes (promyelocytes, myelocytes and metamyelocytes) > 1% indicates that a LEFT SHIFT is Present. MCH (RBC) [Entitic mass] 27.4 pg 27.0-32.0 [facility] Work Phone: [phone] Nucleated RBC/100 WBC (Bld) [Ratio] 0 % 0-5 [facility] Work Phone: MCHC Auto (RBC) [Mass/Vol]on 06-06-2022 MCHC (RBC) [Mass/Vol] 31.5 g/dL 32-36 [facility] Work Phone: Mucus LM Ql (Urine sed)on Mucus Ql (Urine sed) 0 SEEN /hpf [facility] Work Phone: Nitrite Test strip Ql (U)on 06-06-2022 Nitrite Ql (U) Positive Negative [facility] Work Phone: No Panel Informationon 06-06 Estimated Creatinine Clearance Calc 88.45 ml/min [facility] Work Phone: Estimated GFR (MDRD) Amer 122 mL/min >60 [facility] Work Phone: Comment on above: GFR Calc Estimated GFR (MDRD) Non-Af Amer 101 mL/min >60 [facility] Work Phone: Comment on above: Non- GFR Calc Platelets bldon 06-06-2022 Platelets (Bld) [#/Vol] 433 10*3/uL 150-450 [facility] Work Phone: Protein Test strip Ql (U)on 06-06-2022 Protein Ql (U) 15 mg/dl Negative [facility] Work Phone: Review by pathologiston Pathologist review Isrrael (Unsp spec) [Interp] September mikael [facility] Work Phone: Serum or plasma calcium shantal urement (mass/volume)on 06-06-2022 Calcium [Mass/Vol] 9.1 mg/dL 8.5-10.1 [facility] Work Phone: Serum or plasma creatinine m easurement (mass/volume)on 06-06-2022 Creatinine [Mass/Vol] 0.82 mg/dL 0.70-1.30 [facility] Work Phone: Comment on above: The validity of the calculated GFR & GFRAA in patients over 70 years has not been determined. Clinical correlation is essential. Serum or plasma urea nitroge n measurement (mass/volume)on 06-06-2022 Urea nitrogen [Mass/Vol] 18 mg/dL 7-18 [facility] Work Phone: Squamous epithelial cells de tection in urine sediment by light microscopyon 06-06-2022 Epithelial cells.squamous LM Ql (Urine sed) 0 SEEN /hpf 0-5 [facility] Work Phone: Thin prep Papanicolaou smear with manual screeningon 06-06-2022 Thin prep Papanicolaou smear with manual screening 5 5-15 [facility] Work Phone: [phone] Urine blood detectionon RBC Ql (U) 25 /ul Negative [facility] Work Phone: [phone] RBC Ql (U) 0-5 SEEN /hpf 0-5 [facility] Work Phone: Urine clarityon 06-06-2022 Clarity (U) Clear Clear [facility] Work Phone: Urine color determinationon 06-06-2022 Color (U) Yellow Yellow [facility] Work Phone: Urine glucose detectionon Glucose Ql (U) Normal mg/dl Normal [facility] Work Phone: Urine leukocyte esterase det ection by dipstickon 06-06-2022 Leukocyte esterase Test strip Ql (U) 500 /ul Negative [facility] Work Phone: [phone] Urine pHon 06-06-2022 pH (U) 6.0 [pH] 5.0 - 8.0 [facility] Work Phone: Urine sediment bacteria coun t by microscopy (number/high power field)on 06-06-2022 Bacteria LM.HPF (Urine sed) [#/Area] 2 /[HPF] None Seen [facility] Work Phone: Urine specific gravity measu rementon 06-06-2022 Specific gravity (U) [Rel density] 1.020 1.002-1.03 0 [facility] Work Phone: Urobilinogen Auto test strip Ql (U)on 06-06-2022 Urobilinogen Ql (U) Normal mg/dl Normal [facility] Work Phone: Absolute lymphocyte counton 05-22-2022 Lymphocytes Auto (Unsp spec) [#/Vol] 0.67 10*3/uL 0.83-4.51 [facility] Work Phone: Basophil percentageon 2021 Basophils/100 WBC (Bld) 0.4 % 0-1 [facility] Work Phone: Chloride [Moles/Vol] 105 mmol/L 98-107 [facility] Work Phone: Eosinophils/100 WBC (Bld) 0.1 % 0-5 [facility] Work Phone: Glucose [Mass/Vol] 102 mg/dL 74-106 [facility] Work Phone: [phone] Comment on above: Fasting Glucose resu lt from 100 to 125 mg/dL suggests IMPAIRED HOMEOSTASIS per A.D.A. criteria. Neutrophils (Bld) [#/Vol] 7.0 10*3/uL 2.0-7.7 [facility] Work Phone: Neutrophils/100 WBC (Bld) 77.2 % 47-70 [facility] Work Phone: [phone] Potassium [Moles/Vol] 4.2 mmol/L 3.5-5.1 [facility] Work Phone: [phone] Comment on above: Slight Hemolysis, Re sult may be falsely increased. Sodium [Moles/Vol] 135 mmol/L 136-145 [facility] Work Phone: WBC (Bld) [#/Vol] 9.1 10*3/uL 4.4-11.0 [facility] Work Phone: Blood erythrocytes count (nu mber/volume)on 05-22-2022 RBC (Bld) [#/Vol] 5.47 10*6/uL 4.6-6.2 [facility] Work Phone: Blood hemoglobin measurement (mass/volume)on 05-22-2022 Hemoglobin (Bld) [Mass/Vol] 15.6 g/dL 13.0-16. 5 [facility] Work Phone: Blood lymphocytes/100 leukoc yteson 05-22-2022 Lymphocytes/100 WBC (Bld) 7.3 % 19-41 [facility] Work Phone: Blood monocytes/100 leukocyt eson 05-22-2022 Monocytes/100 WBC (Bld) 14.7 % 0-10 [facility] Work Phone: Blood platelet mean volumeon 05-22-2022 Platelet mean volume (Bld) [Entitic vol] 9.7 fL 6.2-12.0 [facility] Work Phone: [phone] Determination of erythrocyte mean corpuscular volume (MCV)on 05-22-2022 MCV (RBC) [Entitic vol] 84.5 fL 80-94 [facility] Work Phone: [phone] Hematocrit Auto (Bld) [Volum e fraction]on 05-22-2022 Hematocrit (Bld) [Volume fraction] 46.2 % 40-54 [facility] Work Phone: Laboratory - Chemistry and C hemistry - challengeon 05-22-2022 CO2 [Moles/Vol] 22.0 mmol/L 21.0-32.0 [facility] Work Phone: [phone] Urea nitrogen/Creatinine [Mass ratio] 22.5 mg/mg 10-20 [facility] Work Phone: [phone] Laboratory - Hematology and Cell countson 05-22-2022 Erythrocyte distribution width (RBC) [Entitic vol] 49.6 fL 35.1-43.9 [facility] Work Phone: [phone] Erythrocyte distribution width (RBC) [Ratio] 16.1 % 11.6-14.6 [facility] Work Phone: [phone] Immature granulocytes/100 WBC (Bld) 0.300 % 0.0-0.9 [facility] Work Phone: Comment on above: IG% - Immature Granu locytes (promyelocytes, myelocytes and metamyelocytes) > 1% indicates that a LEFT SHIFT is Present. MCH (RBC) [Entitic mass] 28.5 pg 27.0-32.0 [facility] Work Phone: Nucleated RBC/100 WBC (Bld) [Ratio] 0 % 0-5 [facility] Work Phone: MCHC Auto (RBC) [Mass/Vol]on 05-22-2022 MCHC (RBC) [Mass/Vol] 33.8 g/dL 32-36 [facility] Work Phone: No Panel Informationon 05-22 Estimated Creatinine Clearance Calc 92.35 ml/min [facility] Work Phone: Estimated GFR (MDRD) Amer 119 mL/min >60 [facility] Work Phone: Comment on above: GFR Calc Estimated GFR (MDRD) Non-Af Amer 98 mL/min >60 [facility] Work Phone: Comment on above: Non- GFR Calc Platelets bldon 05-22-2022 Platelets (Bld) [#/Vol] 268 10*3/uL 150-450 [facility] Work Phone: Serum or plasma calcium shantal urement (mass/volume)on 05-22-2022 Calcium [Mass/Vol] 9.1 mg/dL 8.5-10.1 [facility] Work Phone: Serum or plasma creatinine m easurement (mass/volume)on 05-22-2022 Creatinine [Mass/Vol] 0.84 mg/dL 0.70-1.30 [facility] Work Phone: Comment on above: The validity of the calculated GFR & GFRAA in patients over 70 years has not been determined. Clinical correlation is essential. Serum or plasma urea nitroge n measurement (mass/volume)on 05-22-2022 Urea nitrogen [Mass/Vol] 19 mg/dL 7-18 [facility] Work Phone: Thin prep Papanicolaou smear with manual screeningon 05-22-2022 Thin prep Papanicolaou smear with manual screening 8 5-15 [facility] Work Phone: [phone] Absolute lymphocyte counton 09-09-2021 Lymphocytes Auto (Unsp spec) [#/Vol] 2.88 10*3/uL 0.83-4.51 [facility] Work Phone: Basophil percentageon 2021 Basophils/100 WBC (Bld) 0.5 % 0-1 [facility] Work Phone: Chloride [Moles/Vol] 111 mmol/L 98-107 [facility] Work Phone: Eosinophils/100 WBC (Bld) 4.8 % 0-5 [facility] Work Phone: Glucose [Mass/Vol] 109 mg/dL 74-106 [facility] Work Phone: [phone] Comment on above: Fasting Glucose resu lt from 100 to 125 mg/dL suggests IMPAIRED HOMEOSTASIS per A.D.A. criteria. Neutrophils (Bld) [#/Vol] 6.3 10*3/uL 2.0-7.7 [facility] Work Phone: Neutrophils/100 WBC (Bld) 59.3 % 47-70 [facility] Work Phone: [phone] Potassium [Moles/Vol] 3.9 mmol/L 3.5-5.1 [facility] Work Phone: Sodium [Moles/Vol] 140 mmol/L 136-145 [facility] Work Phone: WBC (Bld) [#/Vol] 10.5 10*3/uL 4.4-11.0 [facility] Work Phone: [phone] Blood erythrocytes count (nu mber/volume)on 09-09-2021 RBC (Bld) [#/Vol] 5.23 10*6/uL 4.6-6.2 [facility] Work Phone: Blood hemoglobin measurement (mass/volume)on 09-09-2021 Hemoglobin (Bld) [Mass/Vol] 15.0 g/dL 13.0-16. 5 [facility] Work Phone: Blood lymphocytes/100 leukoc yteson 09-09-2021 Lymphocytes/100 WBC (Bld) 27.4 % 19-41 [facility] Work Phone: Blood monocytes/100 leukocyt eson 09-09-2021 Monocytes/100 WBC (Bld) 7.5 % 0-10 [facility] Work Phone: Blood platelet mean volumeon 09-09-2021 Platelet mean volume (Bld) [Entitic vol] 9.1 fL 6.2-12.0 [facility] Work Phone: [phone] Determination of erythrocyte mean corpuscular volume (MCV)on 09-09-2021 MCV (RBC) [Entitic vol] 88.5 fL 80-94 [facility] Work Phone: Hematocrit Auto (Bld) [Volum e fraction]on 09-09-2021 Hematocrit (Bld) [Volume fraction] 46.3 % 40-54 [facility] Work Phone: [phone] Laboratory - Chemistry and C hemistry - challengeon 09-09-2021 CO2 [Moles/Vol] 25.0 mmol/L 21.0-32.0 [facility] Work Phone: [phone] Urea nitrogen/Creatinine [Mass ratio] 22.4 mg/mg 10-20 [facility] Work Phone: [phone] Laboratory - Hematology and Cell countson 09-09-2021 Erythrocyte distribution width (RBC) [Entitic vol] 49.1 fL 35.1-43.9 [facility] Work Phone: [phone] Erythrocyte distribution width (RBC) [Ratio] 15.0 % 11.6-14.6 [facility] Work Phone: [phone] Immature granulocytes/100 WBC (Bld) 0.500 % 0.0-0.9 [facility] Work Phone: [phone] Comment on above: IG% - Immature Granu locytes (promyelocytes, myelocytes and metamyelocytes) > 1% indicates that a LEFT SHIFT is Present. MCH (RBC) [Entitic mass] 28.7 pg 27.0-32.0 [facility] Work Phone: Nucleated RBC/100 WBC (Bld) [Ratio] 0 % 0-5 [facility] Work Phone: MCHC Auto (RBC) [Mass/Vol]on 09-09-2021 MCHC (RBC) [Mass/Vol] 32.4 g/dL 32-36 [facility] Work Phone: No Panel Informationon 09-09 Estimated Creatinine Clearance Calc 80.85 ml/min [facility] Work Phone: Estimated GFR (MDRD) Amer 105 mL/min >60 [facility] Work Phone: Comment on above: GFR Calc Estimated GFR (MDRD) Non-Af Amer 87 mL/min >60 [facility] Work Phone: Comment on above: Non- GFR Calc Platelets bldon 09-09-2021 Platelets (Bld) [#/Vol] 308 10*3/uL 150-450 [facility] Work Phone: Serum or plasma calcium shantal urement (mass/volume)on 09-09-2021 Calcium [Mass/Vol] 9.0 mg/dL 8.5-10.1 [facility] Work Phone: Serum or plasma creatinine m easurement (mass/volume)on 09-09-2021 Creatinine [Mass/Vol] 0.94 mg/dL 0.70-1.30 [facility] Work Phone: Comment on above: The validity of the calculated GFR & GFRAA in patients over 70 years has not been determined. Clinical correlation is essential. Serum or plasma urea nitroge n measurement (mass/volume)on 09-09-2021 Urea nitrogen [Mass/Vol] 21 mg/dL 7-18 [facility] Work Phone: Thin prep Papanicolaou smear with manual screeningon 09-09-2021 Thin prep Papanicolaou smear with manual screening 4 5-15 [facility] Work Phone: Basophil percentageon 2021 Bilirubin [Mass/Vol] 0.60 mg/dL 0.20-1.00 [facility] Work Phone: Comment on above: For patients on eltr ombopag therapy, use of Dimension [place] TBIL is not recommended. Chloride [Moles/Vol] 105 mmol/L 98-107 [facility] Work Phone: Glucose [Mass/Vol] 112 mg/dL 74-106 [facility] Work Phone: Comment on above: Fasting Glucose resu lt from 100 to 125 mg/dL suggests IMPAIRED HOMEOSTASIS per A.D.A. criteria. Potassium [Moles/Vol] 3.9 mmol/L 3.5-5.1 [facility] Work Phone: Protein [Mass/Vol] 7.6 g/dL 6.4-8.2 [facility] Work Phone: Sodium [Moles/Vol] 136 mmol/L 136-145 [facility] Work Phone: WBC (Bld) [#/Vol] 14.9 10*3/uL 4.4-11.0 [facility] Work Phone: Blood erythrocytes count (nu mber/volume)on 06-29-2021 RBC (Bld) [#/Vol] 6.16 10*6/uL 4.6-6.2 [facility] Work Phone: Blood hemoglobin measurement (mass/volume)on 06-29-2021 Hemoglobin (Bld) [Mass/Vol] 18.1 g/dL 13.0-16. 5 [facility] Work Phone: Blood platelet mean volumeon 06-29-2021 Platelet mean volume (Bld) [Entitic vol] 9.8 fL 6.2-12.0 [facility] Work Phone: Determination of erythrocyte mean corpuscular volume (MCV)on 06-29-2021 MCV (RBC) [Entitic vol] 86.7 fL 80-94 [facility] Work Phone: Hematocrit Auto (Bld) [Volum e fraction]on 06-29-2021 Hematocrit (Bld) [Volume fraction] 53.4 % 40-54 [facility] Work Phone: Laboratory - Chemistry and C hemistry - challengeon 06-29-2021 ALP [Catalytic activity/Vol] 167 U/L 45-117 [facility] Work Phone: [phone] ALT [Catalytic activity/Vol] 23 U/L 16-61 [facility] Work Phone: CO2 [Moles/Vol] 24.0 mmol/L 21.0-32.0 [facility] Work Phone: Globulin (S) [Mass/Vol] 4.5 g/dL 2.2-4.2 [facility] Work Phone: Urea nitrogen/Creatinine [Mass ratio] 19.4 mg/mg 10-20 [facility] Work Phone: Laboratory - Hematology and Cell countson 06-29-2021 Erythrocyte distribution width (RBC) [Entitic vol] 49.0 fL 35.1-43.9 [facility] Work Phone: Erythrocyte distribution width (RBC) [Ratio] 16.0 % 11.6-14.6 [facility] Work Phone: MCH (RBC) [Entitic mass] 29.4 pg 27.0-32.0 [facility] Work Phone: MCHC Auto (RBC) [Mass/Vol]on 06-29-2021 MCHC (RBC) [Mass/Vol] 33.9 g/dL 32-36 [facility] Work Phone: Comment on above: Delta: 32.1 on 06/28 No Panel Informationon 06-29 Estimated Creatinine Clearance Calc 113.43 ml/min [facility] Work Phone: Estimated GFR (MDRD) Amer 156 mL/min >60 [facility] Work Phone: Comment on above: GFR Calc Estimated GFR (MDRD) Non-Af Amer 129 mL/min >60 [facility] Work Phone: Comment on above: Non- GFR Calc Platelets bldon 06-29-2021 Platelets (Bld) [#/Vol] 283 10*3/uL 150-450 [facility] Work Phone: Review by pathologiston Pathologist review Isrrael (Unsp spec) [Interp] Reviewed [facility] Work Phone: Comment on above: Previous reported re sult: Eleni youssef Edited by: ELOY on 06/30/21:931Neutrophilic leukocytosis.Clinical correlation suggested.Norris Mc D.O. 06/30/21 AMENDED REPORT 06/30/21 0932 PATH REV previously reported as: September mikael Serum or plasma albumin shantal urement (mass/volume)on 06-29-2021 Albumin [Mass/Vol] 3.1 g/dL 3.2-5.0 [facility] Work Phone: Serum or plasma albumin/glob ulin mass ratioon 06-29-2021 Albumin/Globulin [Mass ratio] 0.7 {ratio} 0.9-2.4 [facility] Work Phone: Serum or plasma calcium shantal urement (mass/volume)on 06-29-2021 Calcium [Mass/Vol] 9.5 mg/dL 8.5-10.1 [facility] Work Phone: Serum or plasma creatinine m easurement (mass/volume)on 06-29-2021 Creatinine [Mass/Vol] 0.67 mg/dL 0.70-1.30 [facility] Work Phone: Comment on above: The validity of the calculated GFR & GFRAA in patients over 70 years has not been determined. Clinical correlation is essential. Serum or plasma urea nitroge n measurement (mass/volume)on 06-29-2021 Urea nitrogen [Mass/Vol] 13 mg/dL 7-18 [facility] Work Phone: [phone] Thin prep Papanicolaou smear with manual screeningon 06-29-2021 Thin prep Papanicolaou smear with manual screening 36 U/L 15-37 [facility] Work Phone: Thin prep Papanicolaou smear with manual screening 7 5-15 [facility] Work Phone: [phone] Absolute lymphocyte counton 06-28-2021 Lymphocytes Auto (Unsp spec) [#/Vol] 2.53 10*3/uL 0.83-4.51 [facility] Work Phone: Basophil percentageon 2021 Basophils/100 WBC (Bld) 0.4 % 0-1 [facility] Work Phone: [phone] Cholesterol [Mass/Vol] 142 mg/dL <200 [facility] Work Phone: [phone] Comment on above: <200 mg/dL Desirable 200-240 mg/dL Borderline >240 mg/dL High Risk Eosinophils/100 WBC (Bld) 2.1 % 0-5 [facility] Work Phone: [phone] Neutrophils (Bld) [#/Vol] 8.4 10*3/uL 2.0-7.7 [facility] Work Phone: [phone] Neutrophils/100 WBC (Bld) 69.2 % 47-70 [facility] Work Phone: [phone] Triglyceride [Mass/Vol] 141 mg/dL [facility] Work Phone: [phone] Comment on above: The drugs N-Acetylcy steine and Metamizole may falsely depress this assay.Serum Triglycerides Reference Interval Normal <150 mg/dL Borderline high 150 - 199 mg/dL High 200 - 499 mg/dL Very High > or = 500 mg/dL Blood lymphocytes/100 leukoc yteson 06-28-2021 Lymphocytes/100 WBC (Bld) 20.9 % 19-41 [facility] Work Phone: Blood monocytes/100 leukocyt eson 06-28-2021 Monocytes/100 WBC (Bld) 6.9 % 0-10 [facility] Work Phone: Laboratory - Chemistry and C hemistry - challengeon 06-28-2021 Magnesium [Mass/Vol] 2.1 mg/dL 1.6-2.6 [facility] Work Phone: Laboratory - Hematology and Cell countson 06-28-2021 Immature granulocytes/100 WBC (Bld) 0.500 % 0.0-0.9 [facility] Work Phone: Comment on above: IG% - Immature Granu locytes (promyelocytes, myelocytes and metamyelocytes) > 1% indicates that a LEFT SHIFT is Present. Nucleated RBC/100 WBC (Bld) [Ratio] 0 % 0-5 [facility] Work Phone: No Panel Informationon 06-28 Troponin I High Sensitivity 3963 pg/mL 3.0-78.0 [facility] Work Phone: Comment on above: Critical Result(s) C alled at: 08:02:18 06/28/2021 by: Yesi Mcbride to Malick. Results read back by same. Please Note: New Test Units and Gender Specific Reference Ranges. For more information see Policy Stat Procedure [place] High Sensitivity Troponin (TNIH) and attachments. Serum or plasma cholesterol in HDL measurement (mass/volume)on 06-28-2021 Cholesterol in HDL [Mass/Vol] 39 mg/dL [facility] Work Phone: Comment on above: The drugs N-Acetylcy steine and Metamizole may falsely depress this assay. Reference Range HDL <40 mg/dL Low HDL Cholesterol HDL >or= 60 mg/dL High HDL Cholesterol Serum or plasma cholesterol in VLDL measurement (mass/volume)on 06-28-2021 Cholesterol in VLDL [Mass/Vol] 28 mg/dL 5-40 [facility] Work Phone: Serum or plasma low density lipoprotein (LDL) cholesterol measurement (mass/volume)on 06-28-2021 Cholesterol in LDL [Mass/Vol] 75 mg/dL 0-130 [facility] Work Phone: Basic Metabolic Panelon 12-3 Anion gap 3 mmol/L Normal [facility] Comment on above: Performed By: #### H EMOG, LACT3, BMP3 ####[address] [place] [address] Calcium 8.5 mg/dL Normal 8.4-10.2 [facility] Comment on above: Performed By: #### H EMOG, LACT3, BMP3 ####[address] [place] [address] CO2 27 mmol/L Normal 22-30 [facility] Comment on above: Performed By: #### H EMOG, LACT3, BMP3 ####[address] [place] [address] Glucose mass conc 111 mg/dL High 70-100 [facility] Comment on above: Performed By: #### H EMOG, LACT3, BMP3 ####[address] [place] [address] Urea nitrogen 13 mg/dL Normal 7-20 [facility] Comment on above: Performed By: #### H EMOG, LACT3, BMP3 ####[address] [place] [address] Creatinine 0.71 mg/dL Normal 0.52-1.25 [facility] Comment on above: Performed By: #### H EMOG, LACT3, BMP3 ####[address] [place] [address] eGFR (black) mL/min/{1.73_m2} Normal >60 [facility] Comment on above: Performed By: #### H EMOG, LACT3, BMP3 ####[address] [place] [address] eGFR (non-black) mL/min/{1.73_m2} Normal >60 [facility] Comment on above: Result Comment: Sour ce- MDRD equation with creatinine calibration to IDMS(NKDEP)eGFR not recommended for drug dose adjustment Performed By: #### H EMOG, LACT3, BMP3 ####[address] [place] [address] Potassium molar conc 4.8 mmol/L Normal 3.5-5.1 [facility] Comment on above: Performed By: #### H EMOG, LACT3, BMP3 ####[address] [place] [address] Sodium 136 mmol/L Low 137-145 [facility] Comment on above: Performed By: #### H EMOG, LACT3, BMP3 ####[address] [place] [address] Chloride 106 mmol/L Normal 98-107 [facility] Comment on above: Performed By: #### H EMOG, LACT3, BMP3 ####[address] [place] [address] Hemogramon 05-28-2017 Erythrocyte distribution width Auto Ratio (RBC) 19.0 % High 11.5-14.5 [facility] Comment on above: Performed By: #### H EMOG, LACT3, BMP3 ####[address] [place] [address] Erythrocytes (RBC) 3.46 10*6/uL Low 4.40-5.90 [facility] Comment on above: Performed By: #### H EMOG, LACT3, BMP3 ####[address] [address] Hematocrit (HCT) 28.1 % Low 40.0-52.0 [facility] Comment on above: Performed By: #### H EMOG, LACT3, BMP3 ####[address] [place] [address] Hemoglobin mass conc (Bld) 9.1 g/dL Low 13.0-18.0 [facility] Comment on above: Performed By: #### H EMOG, LACT3, BMP3 ####[address] [place] [address] MCH 26.4 pg Normal 26.0-34.0 [facility] Comment on above: Performed By: #### H EMOG, LACT3, BMP3 ####[address] [place] [address] MCHC mass conc (RBC) 32.4 % Normal 32.0-36.0 [facility] Comment on above: Performed By: #### H EMOG, LACT3, BMP3 ####[address] [place] [address] MCV 81.4 fL Normal 80.0-98.0 [facility] Comment on above: Performed By: #### H EMOG, LACT3, BMP3 ####[address] [place] [address] Platelet mean volume (PMV) 6.9 fL Low 7.4-10.4 [facility] Comment on above: Performed By: #### H EMOG, LACT3, BMP3 ####[address] [place] [address] Platelets 573 10*3/uL High 140-440 [facility] Comment on above: Performed By: #### H EMOG, LACT3, BMP3 ####[address] [place] [address] WBC (Leukocytes) 11.2 10*3/uL High 3.6-10.7 [facility] Comment on above: Performed By: #### H EMOG, LACT3, BMP3 ####[address] [place] [address] CR Chest Portableon 05-27-20 17 CR Chest Portable Patient Name: BAUTISTA RUFFIN Diagnostic Radiology Exam Date/Time 05/27/2017 11:05:26 EST Exam CR Chest Portable Ordering Physician DO TILLEY KATHRYN C Accession Number [id number] CPT4 Codes 33277 () Reason For Exam line placement Report [...] Transcribed Date and Time: 05/27/2017 11:11 Normal [facility] Lactic Acidon 05-27-2017 Lactate 1.4 mmol/L Normal 0.7-2.0 [facility] Comment on above: Performed By: #### H EMOG, LACT3, BMP3 ####[address] [address] CR Chest Portableon 05-26-20 17 CR Chest Portable Patient Name: BAUTISTA RUFFIN Diagnostic Radiology Exam Date/Time 05/26/2017 16:21:52 EST Exam CR Chest Portable Ordering Physician DO TILLEY KATHRYN C Accession Number [id number] CPT4 Codes 12676 () Reason For Exam line placement Report [...] Transcribed Date and Time: 05/26/2017 7:29 Normal [facility] US Fine Needle Aspiration w/ Image Guideon 05-25-2017 US Fine Needle Aspiration w/ Image Guide Patient Name: BAUTISTA RUFFIN Ultrasound Exam Date/Time 05/25/2017 12:15:00 EST Exam US Fine Needle Aspiration w/ Image Guide Ordering Physician MD PERRY RAMA D Accession Number [id number] CPT4 Codes 66871 () Reason For Exam rt hip effusion Report Reason for examination: Paraplegic patient with sepsis, 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 Ultrasound guided right hip aspiration was performed with the patient in his bed. The procedure, risks, benefits, and alternatives were explained to the patient, and informed consent was obtained. [place] protocol was followed with time out. The [...] Transcribed Date and Time: 05/25/2017 1:35 Normal [facility] Basic Metabolic Panelon 12-2 Calcium 8.0 mg/dL Low 8.4-10.2 [facility] Comment on above: Performed By: #### H EMOG, LACT3, BMP3 ####[place] [address] Anion gap 2 mmol/L Normal [facility] Comment on above: Performed By: #### H EMOG, LACT3, BMP3 ####[address] [place] [address] CO2 30 mmol/L Normal 22-30 [facility] Comment on above: Performed By: #### H EMOG, LACT3, BMP3 ####[place] [address] Creatinine 0.60 mg/dL Normal 0.52-1.25 [facility] Comment on above: Performed By: #### H EMOG, LACT3, BMP3 ####[address] [place] [address] eGFR (black) mL/min/{1.73_m2} Normal >60 [facility] Comment on above: Performed By: #### H EMOG, LACT3, BMP3 ####[address] [place] [address] eGFR (non-black) mL/min/{1.73_m2} Normal >60 [facility] Comment on above: Result Comment: Sour ce- MDRD equation with creatinine calibration to IDMS(NKDEP)eGFR not recommended for drug dose adjustment Performed By: #### H EMOG, LACT3, BMP3 ####[address] [place] [address] Glucose mass conc 98 mg/dL Normal 70-100 [facility] Comment on above: Performed By: #### H EMOG, LACT3, BMP3 ####[address] [place] [address] Urea nitrogen 6 mg/dL Low 7-20 [facility] Comment on above: Performed By: #### H EMOG, LACT3, BMP3 ####[address] [place] [address] Chloride 106 mmol/L Normal 98-107 [facility] Comment on above: Performed By: #### H EMOG, LACT3, BMP3 ####[address] [place] [address] Potassium molar conc 3.7 mmol/L Normal 3.5-5.1 [facility] Comment on above: Performed By: #### H EMOG, LACT3, BMP3 ####[address] [place] [address] Sodium 138 mmol/L Normal 137-145 [facility] Comment on above: Performed By: #### H EMOG, LACT3, BMP3 ####[address] [place] [address] CULTUREon 05-24-2017 CULTURE Specimen Source Comment:Body Fluid [facility] Patient name: BAUTISTA RUFFIN WilderNGage: [id number] : 1960 Age: 57 Sex: M Ord. Physician: CHIVO PERRY Location: [address] [place] [address] Copy to: CHIVO PERRY Adm. Date: 05/19/17 MICROBIOLOGYORDER#: [id number] COLLECTED: 05/24/17 14:18SOURCE: Aspirate Right (Hip) RECEIVED: [...] DOSE DEPENDENT HARMAN VALUES = ug/mL Normal [facility] Comment on above: Performed By: #### H HUY GEORGE3, BMP3 ####[address] [place] [address] CULTURE MYCOBACTERIA Conc.on 05-24-2017 CULTURE MYCOBACTERIA Conc. Specimen Sour ce Comment:Body Fluid [facility] Patient name: BAUTISTA RUFFIN JigneshRGageN.: [id number] : 1960 Age: 57 Sex: M Ord. Physician: CHIVO PERRY Location: [address] [place] [address] Copy to: CHIVO PERRY DISCHARGED: 05/30/17Adm. Date: 05/19/17 MICROBIOLOGYORDER#: [id number] COLLECTED: 05/24/17 14:18SOURCE: Aspirate Right (Hip) RECEIVED: 05/25/17 17:51 OE C Bozena Mckee E N T S Sp ecimen Source Comment:Body FluidCULTURE MYCOBACTERIA Conc. FINAL 07/07/17 17:351Test performed at [facility] Microbiology Lab07/07/17No acid-fast bacilli isolated after 6 weeks incubation. Normal [facility] Comment on above: Performed By: #### H DORSI LACT3, BMP3 ####[id number] Ironon 05-24-2017 Saturation 7 % Low 15-50 [facility] Comment on above: Performed By: #### H EMOG, LACT3, BMP3 ####[address] [place] [address] Total Iron Binding Cap. 142 ug/dL Low 261-497 [facility] Comment on above: Performed By: #### H EMOG, LACT3, BMP3 ####[place] [address] [place] [address] Iron, Total <10 Low 49-181 [facility] Comment on above: Performed By: #### H EMOG, LACT3, BMP3 ####[address] [place] [address] STAIN ACID-FASTon 05-24-2017 STAIN ACID-FAST Specimen Source Comment:Body Fluid [facility] Patient name: BAUTISTA RUFFINR.N.: [id number] : 1960 Age: 57 Sex: M Ord. Physician: CHIVO PERRY Location: [address] [place] [address] Copy to: CHIVO PERRY Adm. Date: 05/19/17 MICROBIOLOGYORDER#: [id number] COLLECTED: 05/24/17 14:18SOURCE: Aspirate Right (Hip) RECEIVED: 05/25/17 17:51 OE C O M M E N T S Sp ecimen Source Comment:Body FluidSTAIN ACID-FAST FINAL 05/26/17 21:011No acid-fast bacilli seen in smear.-Method: Fluorescent Stain Normal [facility] Comment on above: Performed By: #### H EMOG, LACT3, BMP3 ####[place] [address] [place] [address] Vitamin B12on 05-24-2017 Cobalamins (Vitamin B12) 538 pg/mL Normal 239-931 [facility] Comment on above: Performed By: #### H EMOG, LACT3, BMP3 ####[address] [place] [address] Basic Metabolic Panelon 12-2 Anion gap 4 mmol/L Normal [facility] Comment on above: Performed By: #### H EMOG, LACT3, BMP3 ####[address] [place] [address] Calcium 7.6 mg/dL Low 8.4-10.2 [facility] Comment on above: Performed By: #### H EMOG, LACT3, BMP3 ####[address] [place] [address] CO2 24 mmol/L Normal 22-30 [facility] Comment on above: Performed By: #### H EMOBentley, LACT3, BMP3 ####[address] [place] [address] Glucose mass conc 112 mg/dL High 70-100 [facility] Comment on above: Performed By: #### H EMOBentley, LACT3, BMP3 ####[address] [place] [address] Urea nitrogen 9 mg/dL Normal 7-20 [facility] Comment on above: Performed By: #### H EMOG, LACT3, BMP3 ####[address] [place] [address] Creatinine 0.62 mg/dL Normal 0.52-1.25 [facility] Comment on above: Performed By: #### H EMOBentley, LACT3, BMP3 ####[address] [place] [address] eGFR (black) mL/min/{1.73_m2} Normal >60 [facility] Comment on above: Performed By: #### H EMOG, LACT3, BMP3 ####[address] [place] [address] eGFR (non-black) mL/min/{1.73_m2} Normal >60 [facility] Comment on above: Result Comment: Sour ce- MDRD equation with creatinine calibration to IDMS(NKDEP)eGFR not recommended for drug dose adjustment Performed By: #### H EMOG, LACT3, BMP3 ####[address] [place] [address] Chloride 115 mmol/L High 98-107 [facility] Comment on above: Performed By: #### H EMOG, LACT3, BMP3 ####[address] [place] [address] Potassium molar conc 3.1 mmol/L Low 3.5-5.1 [facility] Comment on above: Performed By: #### H EMOG, LACT3, BMP3 ####[address] [place] [address] Sodium 143 mmol/L Normal 137-145 [facility] Comment on above: Performed By: #### H EMOG, LACT3, BMP3 ####[address] [place] [address] CT Pelvis w/ Contrast (IV On ly)on 05-23-2017 CT Pelvis w/ Contrast (IV Only) Patient Name: BAUTISTA RUFFIN CT Exam Date/Time 05/23/2017 14:28:[address] Pelvis w/ Contrast (IV Only) Ordering Physician TRINA MAYER Accession Number [id number] CPT4 Codes Q9967 (), 44353 (CT Pelvis w/ Contrast (IV Only)) Reason [...] Transcribed Date and Time: 05/23/2017 3:48 Normal [facility] Hemogramon 05-23-2017 Erythrocyte distribution width Auto Ratio (RBC) 18.5 % High 11.5-14.5 [facility] Comment on above: Performed By: #### H EMOG, LACT3, BMP3 ####[address] [address] Erythrocytes (RBC) 3.28 10*6/uL Low 4.40-5.90 [facility] Comment on above: Performed By: #### H EMOG, LACT3, BMP3 ####[address] [address] Hematocrit (HCT) 27.1 % Low 40.0-52.0 [facility] Comment on above: Performed By: #### H EMOG, LACT3, BMP3 ####[address] [place] [address] Hemoglobin mass conc (Bld) 8.8 g/dL Low 13.0-18.0 [facility] Comment on above: Performed By: #### H EMOG, LACT3, BMP3 ####[address] [place] [address] MCH 26.8 pg Normal 26.0-34.0 [facility] Comment on above: Performed By: #### H EMOG, LACT3, BMP3 ####[address] [place] [address] MCHC mass conc (RBC) 32.5 % Normal 32.0-36.0 [facility] Comment on above: Performed By: #### H EMOG, LACT3, BMP3 ####[address] [place] [address] MCV 82.6 fL Normal 80.0-98.0 [facility] Comment on above: Performed By: #### H EMOG, LACT3, BMP3 ####[address] [place] [address] Platelet mean volume (PMV) 6.9 fL Low 7.4-10.4 [facility] Comment on above: Performed By: #### H EMOG, LACT3, BMP3 ####[address] [place] [address] Platelets 829 10*3/uL High 140-440 [facility] Comment on above: Performed By: #### H EMOG, LACT3, BMP3 ####[address] [place] [address] WBC (Leukocytes) 14.6 10*3/uL High 3.6-10.7 [facility] Comment on above: Performed By: #### H EMOG, LACT3, BMP3 ####[address] [place] [address] Basic Metabolic Panelon 12-2 Calcium 7.9 mg/dL Low 8.4-10.2 [facility] Comment on above: Performed By: #### H EMOG, BMP3 ####[address] [place] [address] Glucose mass conc 163 mg/dL High 70-100 [facility] Comment on above: Performed By: #### H EMOG, BMP3 ####[place] [address] [place] [address] Urea nitrogen 8 mg/dL Normal 7-20 [facility] Comment on above: Performed By: #### Xander GEORGE BMP3 ####[place] [address] [place] [address] Anion gap 6 mmol/L Normal [facility] Comment on above: Performed By: #### Xander GEORGE BMP3 ####[address] [place] [address] CO2 22 mmol/L Normal 22-30 [facility] Comment on above: Performed By: #### Xander GEORGE BMP3 ####[address] [place] [address] Creatinine 0.69 mg/dL Normal 0.52-1.25 [facility] Comment on above: Performed By: #### Xander GEORGE BMP3 ####[address] [place] [address] eGFR (black) mL/min/{1.73_m2} Normal >60 [facility] Comment on above: Performed By: #### Xander GEORGE BMP3 ####[address] [place] [address] eGFR (non-black) mL/min/{1.73_m2} Normal >60 [facility] Comment on above: Result Comment: Sour ce- MDRD equation with creatinine calibration to IDMS(NKDEP)eGFR not recommended for drug dose adjustment Performed By: #### Xander GEORGE BMP3 ####[address] [place] [address] Potassium molar conc 3.3 mmol/L Low 3.5-5.1 [facility] Comment on above: Performed By: #### Xander GEORGE BMP3 ####[address] [place] [address] Chloride 118 mmol/L High 98-107 [facility] Comment on above: Performed By: #### Xander GEORGE BMP3 ####[address] [place] [address] Sodium 145 mmol/L Normal 137-145 [facility] Comment on above: Performed By: #### H EMOG, BMP3 ####[address] [place] [address] C-Reactive Proteinon 017 C reactive protein (CRP) 51.9 mg/L High 0.0-6.0 [facility] Comment on above: Result Comment: . Performed By: #### H EMOG, LACT3, BMP3 ####[address] [place] [address] CR Hip w/ Pelvis 2 or 3 View s Lefton 05-22-2017 CR Hip w/ Pelvis 2 or 3 Views Left Patient Name: BAUTISTA RUFFIN Diagnostic Radiology Exam Date/Time 05/22/2017 19:52:21 EST Exam CR Hip w/ Pelvis 2 or 3 Views Left n Ordering Physician MD LEDESMA ADAM Accession Number [id number] CPT4 Codes 91968 () Reason For Exam pain Report LEFT [...] Transcribed Date and Time: 05/22/2017 7:32 Normal [facility] Hemogramon 05-22-2017 Erythrocyte distribution width Auto Ratio (RBC) 18.1 % High 11.5-14.5 [facility] Comment on above: Performed By: #### H DAWIT GEORGE3 ####[address] [place] [address] Erythrocytes (RBC) 3.53 10*6/uL Low 4.40-5.90 [facility] Comment on above: Performed By: #### H DAWIT GEORGE3 ####[address] [place] [address] Hematocrit (HCT) 29.1 % Low 40.0-52.0 [facility] Comment on above: Performed By: #### H DAWIT GEORGE3 ####[address] [place] [address] Hemoglobin mass conc (Bld) 9.6 g/dL Low 13.0-18.0 [facility] Comment on above: Performed By: #### DAWIT ALEXANDRA3 ####[address] [place] [address] MCH 27.2 pg Normal 26.0-34.0 [facility] Comment on above: Performed By: #### DAWIT ALEXANDRA3 ####[address] [place] [address] MCHC mass conc (RBC) 32.9 % Normal 32.0-36.0 [facility] Comment on above: Performed By: #### H DAWIT GEORGE3 ####[address] [place] [address] MCV 82.5 fL Normal 80.0-98.0 [facility] Comment on above: Performed By: #### DAWIT ALEXANDRA3 ####[address] [place] [address] Platelet mean volume (PMV) 7.1 fL Low 7.4-10.4 [facility] Comment on above: Performed By: #### DAWIT ALEXANDRA3 ####[address] [place] [address] Platelets 823 10*3/uL High 140-440 [facility] Comment on above: Result Comment: repe ated Performed By: #### H EMOBentley, BMP3 ####[address] [place] [address] WBC (Leukocytes) 16.9 10*3/uL High 3.6-10.7 [facility] Comment on above: Performed By: #### H EMOBentley BMP3 ####[address] [place] [address] Sed Rateon 05-22-2017 Sed Rate 64 mm/h High 0-10 [facility] Comment on above: Performed By: #### H DORIS LACT3, BMP3 ####[address] [place] [address] Basic Metabolic Panelon 04-29 Calcium 7.6 mg/dL Low 8.4-10.2 [facility] Comment on above: Performed By: #### ARINA WINN HEMOG ####[address] [place] [address] Glucose mass conc 140 mg/dL High 70-100 [facility] Comment on above: Performed By: #### ARINA WINN HEMOG ####[address] [place] [address] Urea nitrogen 6 mg/dL Low 7-20 [facility] Comment on above: Performed By: #### ARINA WINN HEMOG ####[address] [place] [address] Anion gap 6 mmol/L Normal [facility] Comment on above: Performed By: #### ARINA WINN HEMOG ####[address] [place] [address] CO2 20 mmol/L Low 22-30 [facility] Comment on above: Performed By: #### ARINA WINN, HEMOG ####[address] [place] [address] Creatinine 0.70 mg/dL Normal 0.52-1.25 [facility] Comment on above: Performed By: #### ARINA WINN HEMOG ####[place] [address] [place] [address] eGFR (black) mL/min/{1.73_m2} Normal >60 [facility] Comment on above: Performed By: #### ARINA WINN, HEMOG ####[address] [place] [address] eGFR (non-black) mL/min/{1.73_m2} Normal >60 [facility] Comment on above: Result Comment: Sour ce- MDRD equation with creatinine calibration to IDMS(NKDEP)eGFR not recommended for drug dose adjustment Performed By: #### ARINA WINN, HEMOG ####[address] [place] [address] Potassium molar conc 3.5 mmol/L Normal 3.5-5.1 [facility] Comment on above: Performed By: #### ARINA WINN, HEMOG ####[address] [place] [address] Chloride 110 mmol/L High 98-107 [facility] Comment on above: Performed By: #### ARINA WINN, HEMOG ####[address] [place] [address] Sodium 137 mmol/L Normal 137-145 [facility] Comment on above: Performed By: #### ARINA WINN, HEMOG ####[address] [place] [address] CULTURE BLOODon 05-21-2017 CULTURE BLOOD Specimen Source Comment:Blood [facility] Patient name: BAUTISTA RUFFIN JigneshRGageN.: [id number] : 1960 Age: 57 Sex: M Ord. Physician: TRINA MAYER Location: [address] [place] [address] Copy to: TRINA MAYER Adm. Date: 05/19/17 MICROBIOLOGYORDER#: [id number] COLLECTED: 05/21/17 16:15SOURCE: Blood (Right -wrist) RECEIVED: 05/21/17 16:50 BUSTER Shoemaker N T S Sp ecimen Source Comment:BloodCULTURE BLOOD FINAL 05/26/17 17:0605/26/17No growth at 5 days. Normal [facility] Comment on above: Performed By: #### C /CANDE ####[address] [address] CULTURE BLOOD Specimen Source Comment:Blood [facility] Patient name: BAUTISTA RUFFINN.: [id number] : 1960 Age: 57 Sex: M Ord. Physician: TRINA MAYER Location: [address] [place] [address] Copy to: TRINA MAYER Adm. Date: 05/19/17 MICROBIOLOGYORDER#: [id number] COLLECTED: 05/21/17 15:00SOURCE: Blood (Left -antecub) RECEIVED: 05/21/17 15:36 BUSTER Mckee E N T S Sp ecimen Source Comment:BloodCULTURE BLOOD FINAL 05/26/17 17:No growth at 5 days. Normal [facility] Comment on above: Performed By: #### C /CANDE ####[address] [address] Hemogramon 05-21-2017 Erythrocyte distribution width Auto Ratio (RBC) 18.6 % High 11.5-14.5 [facility] Comment on above: Performed By: #### ARINA WINN HEMOG ####[address] [address] Erythrocytes (RBC) 3.22 10*6/uL Low 4.40-5.90 [facility] Comment on above: Performed By: #### ARINA WINN HEMOG ####[address] [place] [address] Hematocrit (HCT) 26.3 % Low 40.0-52.0 [facility] Comment on above: Performed By: #### ARINA WINN, HEMOG ####[address] [place] [address] Hemoglobin mass conc (Bld) 8.6 g/dL Low 13.0-18.0 [facility] Comment on above: Performed By: #### ARINA WINN, HEMOG ####[address] [place] [address] MCH 26.8 pg Normal 26.0-34.0 [facility] Comment on above: Performed By: #### ARINA WINN HEMOG ####[address] [place] [address] MCHC mass conc (RBC) 32.9 % Normal 32.0-36.0 [facility] Comment on above: Performed By: #### ARINA WINN HEMOG ####[address] [place] [address] MCV 81.6 fL Normal 80.0-98.0 [facility] Comment on above: Performed By: #### ARINA WINN HEMOG ####[address] [place] [address] Platelet mean volume (PMV) 7.0 fL Low 7.4-10.4 [facility] Comment on above: Performed By: #### ARINA WINN HEMOG ####[address] [place] [address] Platelets 736 10*3/uL High 140-440 [facility] Comment on above: Performed By: #### ARINA WINN, HEMOG ####[address] [place] [address] WBC (Leukocytes) 11.1 10*3/uL High 3.6-10.7 [facility] Comment on above: Performed By: #### ARINA WINN HEMOG ####[address] [place] [address] Vancomycin Troughon 05-21- 17 Vancomycin Trough 25.8 ug/mL High 5.0-10.0 [facility] Comment on above: Result Comment: . Performed By: #### B MP3ARINA, HEMOG ####[address] [place] [address] Basic Metabolic Panelon 12-2 Calcium 8.2 mg/dL Low 8.4-10.2 [facility] Comment on above: Performed By: #### H EMOG, LACT3, BMP3 ####[address] [place] [address] Glucose mass conc 92 mg/dL Normal 70-100 [facility] Comment on above: Performed By: #### H EMOG, LACT3, BMP3 ####[address] [place] [address] Urea nitrogen 8 mg/dL Normal 7-20 [facility] Comment on above: Performed By: #### H EMOG, LACT3, BMP3 ####[address] [place] [address] Anion gap 7 mmol/L Normal [facility] Comment on above: Performed By: #### H EMOG, LACT3, BMP3 ####[address] [place] [address] CO2 19 mmol/L Low 22-30 [facility] Comment on above: Performed By: #### H EMOG, LACT3, BMP3 ####[address] [place] [address] Creatinine 0.78 mg/dL Normal 0.52-1.25 [facility] Comment on above: Performed By: #### H EMOG, LACT3, BMP3 ####[address] [place] [address] eGFR (black) mL/min/{1.73_m2} Normal >60 [facility] Comment on above: Performed By: #### H EMOG, LACT3, BMP3 ####[address] [place] [address] eGFR (non-black) mL/min/{1.73_m2} Normal >60 [facility] Comment on above: Result Comment: Sour ce- MDRD equation with creatinine calibration to IDMS(NKDEP)eGFR not recommended for drug dose adjustment Performed By: #### H DORIS LACT3, BMP3 ####[address] [address] Potassium molar conc 3.6 mmol/L Normal 3.5-5.1 [facility] Comment on above: Performed By: #### H EMOBentley, LACT3, BMP3 ####[address] [place] [address] Chloride 113 mmol/L High 98-107 [facility] Comment on above: Performed By: #### H DORIS LACT3, BMP3 ####[address] [address] Sodium 139 mmol/L Normal 137-145 [facility] Comment on above: Performed By: #### H DORIS LACT3, BMP3 ####[address] [address] Hemogramon 05-20-2017 Erythrocyte distribution width Auto Ratio (RBC) 18.7 % High 11.5-14.5 [facility] Comment on above: Performed By: #### H DORIS, LACT3, BMP3 ####[address] [address] Erythrocytes (RBC) 3.38 10*6/uL Low 4.40-5.90 [facility] Comment on above: Performed By: #### H EMOBentley, LACT3, BMP3 ####[address] [place] [address] Hematocrit (HCT) 27.7 % Low 40.0-52.0 [facility] Comment on above: Performed By: #### H EMOBentley, LACT3, BMP3 ####[address] [address] Hemoglobin mass conc (Bld) 9.2 g/dL Low 13.0-18.0 [facility] Comment on above: Performed By: #### H EMOBentley, LACT3, BMP3 ####[address] [address] MCH 27.3 pg Normal 26.0-34.0 [facility] Comment on above: Performed By: #### H EMOG, LACT3, BMP3 ####[address] [address] MCHC mass conc (RBC) 33.3 % Normal 32.0-36.0 [facility] Comment on above: Performed By: #### H EMOBentley, LACT3, BMP3 ####[address] [place] [address] MCV 82.1 fL Normal 80.0-98.0 [facility] Comment on above: Performed By: #### H EMOBentley, LACT3, BMP3 ####[address] [address] Platelet mean volume (PMV) 7.0 fL Low 7.4-10.4 [facility] Comment on above: Performed By: #### H EMOBentley, LACT3, BMP3 ####[address] [address] Platelets 749 10*3/uL High 140-440 [facility] Comment on above: Performed By: #### H EMOBentley, LACT3, BMP3 ####[address] [address] WBC (Leukocytes) 15.6 10*3/uL High 3.6-10.7 [facility] Comment on above: Performed By: #### H EMOBentley, LACT3, BMP3 ####[address] [address] Lactic Acidon 05-20-2017 Lactate 0.6 mmol/L Low 0.7-2.0 [facility] Comment on above: Performed By: #### H EMOG, LACT3, BMP3 ####[address] [address] VANC TROUGHon 04-08-2017 VANC TROUGH 14.4 MCG/ML Low 15.0-20.0 [facility] Comment on above: Performed By: #### L 520.61443 ####[facility] [id number] [place], [place] [address]Yy# [phone] BMPon 04-03-2017 Anion gap 9 mmol/L Normal 5-16 [facility] Comment on above: Performed By: #### L 500.85873, L500.66618, L520.75191 ####[facility] [id number] [place], [place] [address]Py# [phone] BUN/Creatinine Ratio 23 mg/mg Normal 15-24 [facility] Comment on above: Performed By: #### L 500.37325, L500.34708, L520.17431 ####[facility] [id number] [place], [place] [address]Az# [phone] Calcium 8.6 mg/dL Normal 8.5-10.1 [facility] Comment on above: Performed By: #### L 500.97042, L500.23979, L520.48308 ####[facility] S[address] [place], [place] [address]Zb# [phone] Chloride 103 mmol/L Normal 98-107 [facility] Comment on above: Performed By: #### L 500.09806, L500.03430, L520.47607 ####[facility] [id number] [place], [place] [address]Ty# [phone] CO2 26 mmol/L Normal 21-32 [facility] Comment on above: Performed By: #### L 500.89329, L500.21426, L520.75356 ####[facility] [id number] [place], [place] [address]Ax# [phone] Creatinine 1.370 mg/dL High 0.670-1.17 0 [facility] Comment on above: Result Comment: Noni ents receiving either N-Acetylcysteine (NAC) orMetamizole prior to venipuncture, may have falsely depressedresults. Performed By: #### L 500.47285, L500.39593, L520.93193 ####[facility] [id number] [place], [place] [address]Az# [phone] Glucose mass conc 95 mg/dL Normal 70-100 [facility] Comment on above: Result Comment: 70-1 00-Normal Fasting; [phone]-Nsbprpoo Fasting; greaterthan 126 on more than one result-Diabetes. ADA guidelines Performed By: #### L 500.16184, L500.29809, L520.77272 ####[facility] [id number] [place], [place] [address]Ts# [phone] Potassium molar conc 4.5 mmol/L Normal 3.5-5.1 [facility] Comment on above: Performed By: #### L 500.23976, L500.88222, L520.33184 ####[facility] [id number] [place], [place] [address]Ee# [phone] Sodium 138 mmol/L Normal 136-145 [facility] Comment on above: Performed By: #### L 500.99063, L500.43068, L520.28087 ####[facility] [id number] [place], [place] [address]Sv# [phone] Urea nitrogen 31 mg/dL High 7-26 [facility] Comment on above: Performed By: #### L 500.93720, L500.90213, L520.73522 ####[facility] [id number] [place], [place] [address]Bs# [phone] GFR ESTon 04-03-2017 IF AMER Greater than 60 Normal [facility] Comment on above: Performed By: #### L 500.84885, L500.89648, L520.61902 ####[facility] L[address]HBS[address] [place], [place] [address]Nn# [phone] IF non-AFR AMER 54 ML/MIN Normal [facility] Comment on above: Performed By: #### L 500.53420, L500.74916, L520.26094 ####[facility] [id number] [place], [place] [address]Nt# [phone] on 04-03-2017 Hematocrit (HCT) 32.7 % Low 41.0-53.0 [facility] Comment on above: Performed By: #### L 200.24032 ####[facility] [id number] [place], [place] [address]Pp# [phone] Hemoglobin mass conc (Bld) 10.3 g/dL Low 13.5-17.5 [facility] Comment [facility]: Performed By: #### L 200.45264 ####[facility] [id number] [place] [address]Xx# [phone] VANC TROUGHon 04-03-2017 VANC TROUGH 14.7 MCG/ML Low 15.0-20.0 [facility] Comment on above: Performed By: #### L 500.74222, L500.58744, L520.13529 ####[address] [address]Xp# [phone] on 03-29-2017 Hematocrit (HCT) 30.1 % Low 41.0-53.0 [facility] Comment on above: Performed By: #### L 200.96857 ####[address] [address]Xk# [phone] Hemoglobin mass conc (Bld) 9.4 g/dL Low 13.5-17.5 [facility] Comment on above: Performed By: #### L 200.18672 ####[facility] [id number] [place] [address]Lx# [phone] VANC TROUGHon 03-28-2017 VANC TROUGH 20.7 MCG/ML Critically high 15.0-20.0 [facility] Comment on above: Result Comment: Crit ical Result(s) Called at: 22:55:07 on 03/27/2017 by:Vanessa Bianchi to and read back by: Rica LR AT [facility] Performed By: #### L 520.95586 ####[facility] [id number] [place] [address]Bk# [phone] VANC TROUGHon 03-23-2017 VANC TROUGH 25.3 MCG/ML Critically high 15.0-20.0 [facility] Comment on above: Result Comment: Eric jarquin Result(s) Called at: 12:22:05 on 03/23/2017 by:Piedad Thomas to and read back by: BLANCHE HILLMAN RN Performed By: #### L 520.23182 ####[facility] [id number] [place], [place] [address]Ce# [phone] Influenza virus A and B and SARS-CoV-2 (COVID-19) Ag panel - Upper respiratory specim SARS-CoV-2 (COVID-19) RNA ZEKE+probe Ql (Resp) [facility] Work Phone: Vital Signs Date Time Vital Sign Value Performing Clinician Samir walker 11-05-2024 18:30-0400 Body temperature 98.1 [degF] [facility] 11-05-2024 18:30-0400 Diastolic blood pressure 87 mm[Hg] [facility] 11-05-2024 18:30-0400 Heart rate 85 /min [facility] 11-05-2024 18:30-0400 Respiratory rate 16 /min [facility] 11-05-2024 18:30-0400 SaO2% (BldA) [Mass fraction] 94 % [facility] 11-05-2024 18:30-0400 Systolic blood pressure 135 mm[Hg] [facility] 11-05-2024 01:09-0400 Body mass index (BMI) [Ratio] 24.8 kg/m2 [facility] 11-05-2024 01:09-0400 Body weight 76.3 kg [facility] 11-04-2024 12:22-0400 Body height 175.26 cm [facility] 11-03-2024 16:54-0400 Body temperature 97.8 [degF] [facility] 11-03-2024 16:54-0400 Diastolic blood pressure 85 mm[Hg] [facility] 11-03-2024 16:54-0400 Heart rate 77 /min [facility] 11-03-2024 16:54-0400 Respiratory rate 16 /min [facility] 11-03-2024 16:54-0400 SaO2% (BldA) [Mass fraction] 98 % [facility] 11-03-2024 16:54-0400 Systolic blood pressure 142 mm[Hg] [facility] 11-03-2024 11:28-0400 Body height 172.72 cm [facility] 11-03-2024 11:28-0400 Body mass index (BMI) [Ratio] 27.7 kg/m2 [facility] 11-03-2024 11:28-0400 Body weight 82.8 kg [facility] 11-01-2024 18:00-0400 Diastolic blood pressure 84 mm[Hg] [facility] 11-01-2024 18:00-0400 Heart rate 82 /min [facility] 11-01-2024 18:00-0400 Respiratory rate 16 /min [facility] 11-01-2024 18:00-0400 SaO2% (BldA) [Mass fraction] 96 % [facility] 11-01-2024 18:00-0400 Systolic blood pressure 132 mm[Hg] [facility] 11-01-2024 16:30-0400 Body temperature 98.3 [degF] [facility] 11-01-2024 14:11-0400 Body height 172.72 cm [facility] 11-01-2024 14:11-0400 Body mass index (BMI) [Ratio] 27.6 kg/m2 [facility] 11-01-2024 14:11-0400 Body weight 82.3 kg [facility] 09-12-2024 13:04-0400 Body temperature 97.8 [degF] [facility] 09-12-2024 13:04-0400 Diastolic blood pressure 85 mm[Hg] [facility] 09-12-2024 13:04-0400 Heart rate 75 /min [facility] 09-12-2024 13:04-0400 Respiratory rate 16 /min [facility] 09-12-2024 13:04-0400 SaO2% (BldA) [Mass fraction] 97 % [facility] 09-12-2024 13:04-0400 Systolic blood pressure 149 mm[Hg] [facility] 09-11-2024 15:37-0400 Body height 175.01 cm [facility] 09-11-2024 15:37-0400 Body mass index (BMI) [Ratio] 27.8 kg/m2 [facility] 09-11-2024 15:37-0400 Body weight 85.41 kg [facility] 07-14-2024 12:00-0500 Body temperature 97.6 [degF] [facility] 07-14-2024 12:00-0500 Diastolic blood pressure 86 mm[Hg] [facility] 07-14-2024 12:00-0500 Heart rate 82 /min [facility] 07-14-2024 12:00-0500 Respiratory rate 17 /min [facility] 07-14-2024 12:00-0500 SaO2% (BldA) [Mass fraction] 94 % [facility] 07-14-2024 12:00-0500 Systolic blood pressure 139 mm[Hg] [facility] 07-14-2024 07:06-0500 Body mass index (BMI) [Ratio] 28.3 kg/m2 [facility] 07-14-2024 07:06-0500 Body weight 87.2 kg [facility] 07-13-2024 07:00-0500 Diastolic blood pressure 101 mm[Hg] [facility] 07-13-2024 07:00-0500 Heart rate 83 /min [facility] 07-13-2024 07:00-0500 Respiratory rate 18 /min [facility] 07-13-2024 07:00-0500 SaO2% (BldA) [Mass fraction] 99 % [facility] 07-13-2024 07:00-0500 Systolic blood pressure 176 mm[Hg] [facility] 07-13-2024 06:40-0500 Body temperature 97.8 [degF] [facility] 07-13-2024 02:28-0500 Body mass index (BMI) [Ratio] 26.6 kg/m2 [facility] 07-13-2024 02:28-0500 Body weight 81.8 kg [facility] 06-19-2024 15:07-0500 Body temperature 98.3 [degF] [facility] 06-19-2024 15:07-0500 Diastolic blood pressure 92 mm[Hg] [facility] 06-19-2024 15:07-0500 Heart rate 88 /min [facility] 06-19-2024 15:07-0500 Respiratory rate 18 /min [facility] 06-19-2024 15:07-0500 SaO2% (BldA) [Mass fraction] 98 % [facility] 06-19-2024 15:07-0500 Systolic blood pressure 138 mm[Hg] [facility] 06-19-2024 05:37-0500 Body mass index (BMI) [Ratio] 25.4 kg/m2 [facility] 06-19-2024 05:37-0500 Body weight 78.1 kg [facility] 06-14-2024 21:55-0500 Body temperature 98.1 [degF] [facility] 06-14-2024 21:55-0500 Diastolic blood pressure 76 mm[Hg] [facility] 06-14-2024 21:55-0500 Heart rate 90 /min [facility] 06-14-2024 21:55-0500 Respiratory rate 16 /min [facility] 06-14-2024 21:55-0500 SaO2% (BldA) [Mass fraction] 98 % [facility] 06-14-2024 21:55-0500 Systolic blood pressure 155 mm[Hg] [facility] 06-12-2024 14:34-0500 Body weight 95.5 kg [facility] 06-11-2024 23:14-0500 Body mass index (BMI) [Ratio] 31.1 kg/m2 [facility] 10-09-2023 05:00-0400 Body temperature 97.5 [degF] [facility] 10-09-2023 05:00-0400 Diastolic blood pressure 91 mm[Hg] [facility] 10-09-2023 05:00-0400 Heart rate 95 /min [facility] 10-09-2023 05:00-0400 Respiratory rate 16 /min [facility] 10-09-2023 05:00-0400 SaO2% (BldA) [Mass fraction] 97 % [facility] 10-09-2023 05:00-0400 Systolic blood pressure 128 mm[Hg] [facility] 10-09-2023 01:12-0400 Body height 175.26 cm [facility] 06-07-2022 00:00-0500 Diastolic blood pressure 78 mm[Hg] [facility] Work Phone: 06-07-2022 00:00-0500 Heart rate 81 /min [facility] Work Phone: 06-07-2022 00:00-0500 Respiratory rate 14 /min [facility] Work Phone: 06-07-2022 00:00-0500 SaO2% (BldA) [Mass fraction] 97 % [facility] Work Phone: 06-07-2022 00:00-0500 Systolic blood pressure 119 mm[Hg] [facility] Work Phone: 06-06-2022 16:16-0500 Body height 170.18 cm [facility] Work Phone: 06-06-2022 16:16-0500 Body mass index (BMI) [Ratio] 26.6 kg/m2 [facility] Work Phone: 06-06-2022 16:16-0500 Body temperature 97.5 [degF] [facility] Work Phone: 06-06-2022 16:16-0500 Body weight 77.3 kg [facility] Work Phone: 05-22-2022 21:09-0500 Diastolic blood pressure 93 mm[Hg] [facility] Work Phone: 05-22-2022 21:09-0500 Heart rate 121 /min [facility] Work Phone: 05-22-2022 21:09-0500 Respiratory rate 30 /min [facility] Work Phone: 05-22-2022 21:09-0500 SaO2% (BldA) [Mass fraction] 96 % [facility] Work Phone: 05-22-2022 21:09-0500 Systolic blood pressure 143 mm[Hg] [facility] Work Phone: 05-22-2022 20:08-0500 Body temperature 97.6 [degF] [facility] Work Phone: 05-22-2022 16:40-0500 Body height 175.26 cm [facility] Work Phone: 05-22-2022 16:40-0500 Body mass index (BMI) [Ratio] 26.2 kg/m2 [facility] Work Phone: 05-22-2022 16:40-0500 Body weight 80.5 kg [facility] Work Phone: 09-09-2021 17:43-0400 Diastolic blood pressure 100 mm[Hg] [facility] Work Phone: 09-09-2021 17:43-0400 Heart rate 70 /min [facility] Work Phone: 09-09-2021 17:43-0400 Respiratory rate 16 /min [facility] Work Phone: 09-09-2021 17:43-0400 SaO2% (BldA) [Mass fraction] 97 % [facility] Work Phone: 09-09-2021 17:43-0400 Systolic blood pressure 122 mm[Hg] [facility] Work Phone: 09-09-2021 15:23-0400 Body temperature 97.6 [degF] [facility] Work Phone: 09-09-2021 15:20-0400 Body height 172.72 cm [facility] Work Phone: 09-09-2021 15:20-0400 Body mass index (BMI) [Ratio] 26.6 kg/m2 [facility] Work Phone: 09-09-2021 15:20-0400 Body weight 79.6 kg [facility] Work Phone: 06-29-2021 10:00-0500 Heart rate 112 /min [facility] Work Phone: 06-29-2021 08:38-0500 Body temperature 98 [degF] [facility] Work Phone: 06-29-2021 08:38-0500 Diastolic blood pressure 93 mm[Hg] [facility] Work Phone: 06-29-2021 08:38-0500 Respiratory rate 16 /min [facility] Work Phone: 06-29-2021 08:38-0500 SaO2% (BldA) [Mass fraction] 98 % [facility] Work Phone: 06-29-2021 08:38-0500 Systolic blood pressure 122 mm[Hg] [facility] Work Phone: 06-29-2021 05:00-0500 Body weight 74 kg [facility] Work Phone: 06-28-2021 02:52-0500 Body mass index (BMI) [Ratio] 23.9 kg/m2 [facility] Work Phone: Encounters Encounter Date Encounter Type Care Provider Facility Start: 11-05-2024 Non-patient / Non-visit Dr. Adan cohen [facility] Work Phone: Start: 11-04-2024 ambulatory Adan Schneider [facility] Start: 11-04-2024 End: 11-05-2024 Evaluation and management of inpatient Dr. Adan Schneider DO [facility] Work Phone: Start: 11-04-2024 Non-patient / Non-visit Dr. Adan cohen [facility] Work Phone: Start: 11-03-2024 Non-patient / Non-visit Dr. Milady Tilley DO [facility] Work Phone: Start: 11-03-2024 ambulatory Milady Tilley Facility:[facility] Start: 11-03-2024 Evaluation and management of inpatient [facility] Work [facility]: Start: 11-03-2024 observation encounter [facility] Work Phone: Start: 11-01-2024 End: 11-01-2024 [facility] Start: 09-11-2024 End: 09-12-2024 [facility] Start: 07-14-2024 End: 07-14-2024 Emergency department patient visit Dr. Rico Moore DO -Emergency Department Work Phone: Start: 07-13-2024 End: 07-13-2024 Emergency department patient visit Richie Borden DO -Emergency Department Work Phone: Start: 06-19-2024 Non-patient / Non-visit Dr. Darian Arceo MD [facility] Work Phone: Start: 06-18-2024 Non-patient / Non-visit Dr. Darian Arceo MD [facility] Work Phone: Start: 06-17-2024 Non-patient / Non-visit Dr. Darian Arceo MD [facility] Work Phone: Start: 06-16-2024 ambulatory Ronak Rueda ty:[facility] Start: 06-16-2024 End: 06-19-2024 Evaluation and management of inpatient Dr. Darian Arceo MD -[facility] Work Phone: Start: 06-14-2024 Non-patient / Non-visit Dr. Darian Arceo MD -[facility] Work Phone: Start: 06-13-2024 Non-patient / Non-visit Dr. Darian Arceo MD -[facility] Work Phone: Start: 06-12-2024 Non-patient / Non-visit Dr. Darian Arceo MD [facility] Work Phone: Start: 06-11-2024 ambulatory Ronak Rueda ty:[facility] Start: 06-11-2024 End: 06-14-2024 Evaluation and management of inpatient Dr. Darian Arceo MD [facility] Work Phone: Start: 05-06-2024 End: 05-10-2024 Telephone encounter Hetal Gallegos MD Work Phone: [facility] Start: 05-03-2024 Emergency department patient visit JAMEY HUYNH Facility:[facility] Start: 05-03-2024 End: 05-03-2024 Emergency department patient visit Hema ChamberlainIvis Facility:[facility] Start: 10-09-2023 End: 10-09-2023 Emergency department patient visit [facility] Work Phone: Start: 06-06-2022 End: 06-07-2022 Emergency department patient visit [facility] Start: 05-22-2022 End: 05-22-2022 Emergency department patient visit [facility] Start: 09-09-2021 End: 09-09-2021 Emergency department patient visit [facility] Start: 06-29-2021 Non-patient / Non-visit [facility] Start: 06-29-2021 Non-patient / Non-visit [facility] Start: 06-28-2021 Non-patient / Non-visit [facility] Start: 06-28-2021 End: 06-29-2021 Evaluation and management of inpatient [facility]-Progressive Care Unit Start: 05-19-2017 Evaluation and management of inpatient UNKNOWN PROVIDER [facility] Start: 04-08-2017 Ambulatory [facility] Start: 04-03-2017 [facility] Start: 03-29-2017 [facility] Start: 03-27-2017 [facility] Start: 03-23-2017 [facility] Procedures Date Procedure Procedure Detail Performing Clinician Start: 11-04-2024 Estimated creatinine clearance [facility] Start: 11-04-2024 Serum inorganic phos phate measurement [facility] Start: 11-03-2024 [facility] Start: 11-03-2024 Estimated creatinine clearance [facility] Start: 11-03-2024 Computed tomography of abdomen and pelvis with intravenous contrast [facility] Start: 11-01-2024 Urnls dip stick/tabl et reagent auto microscopy [facility] Start: 11-01-2024 [facility] Start: 09-11-2024 Urnls dip stick/tabl et reagent auto microscopy [facility] Start: 09-11-2024 CT of pelvis with contrast [facility] Start: 09-11-2024 Estimated creatinine clearance [facility] Start: 09-11-2024 [facility] Start: 09-11-2024 Gram stain microscopy [facility] Start: 09-11-2024 End: 09-11-2024 Microbial culture, routine [facility] Start: 09-11-2024 [facility] Start: 07-14-2024 Urnls dip stick/tabl et reagent auto microscopy [facility] Start: 07-14-2024 Estimated creatinine clearance [facility] Start: 07-14-2024 Measurement of renal function [facility] Comment on above: GFR Calc Start: 07-14-2024 Plain chest X-ray [facility] Start: 07-13-2024 SARS-CoV-2, Influenz a & RSV (PCR) [facility] Start: 07-13-2024 CT angiography of ch est with contrast [facility] Start: 07-13-2024 Plain chest X-ray [facility] Start: 07-13-2024 D-dimer assay, quantitative [facility] Comment on above: D-Dimer ELEVATED (>0 .49): Additional studies and clinicalassessments are indicated to conclude diagnosis of:Deep Vein Thrombosis (DVT) or Pulmonary Embolism (PE)CRITICAL VALUE CALLED TO [facility]07/13/24 0417 Graham Osorio.RESULTS READ BACK BY SAME. Start: 07-13-2024 Estimated creatinine clearance [facility] Start: 07-13-2024 Measurement of renal function [facility] Comment on above: GFR Calc Start: 06-16-2024 Plain chest X-ray [facility] Start: 06-16-2024 CT of head without contrast [facility] Start: 06-16-2024 [facility] Start: 06-16-[facility]24 [facility] Start: 06-11-2024 CT [facility] Start: 06-11-2024 Plain chest X-ray [facility] Start: 06-11-2024 Plain x-ray of pelvi s and lower extremity [facility] Start: 06-11-2024 [facility] Start: 06-11-2024 Legionella pneumophi la antigen assay [facility] Start: 06-11-2024 SARS-CoV-2, Influenz a & RSV (PCR) [facility] Start: 06-11-2024 Streptococcus pneumo niae antigen assay [facility] Start: 06-11-2024 [facility] Start: 10-09-2023 Plain chest X-ray Start: 06-06-2022 Plain chest X-ray Start: 05-22-2022 CT of abdomen and pe lvis without contrast Start: 05-22-2022 Plain chest X-ray Start: 06-28-2021 History of placement of stent for coronary artery disease History of coronary artery stent placement Dr. Darian Arceo MD Comment on above: [id number] LAD w/ 3.0 a 18 mm Avery Montelongo MR Stent 06/28/21 Start: 06-28-2021 [facility] SARS-CoV-2 & FLU Ant igen (Rapid) Plan of Treatment Date Care Activity Detail Author Start: 05-03-2027 Diabetes Screening Diabetes Screenin g [facility] Start: 11-05-2024 Patient discharge [facility] Start: 11-05-2024 Wound care [facility] Start: 11-04-2024 Admission procedure [facility] Start: 11-03-2024 End: 11-03-2024 Consultation for treatment [facility] Start: 11-03-2024 Following clinical pathway protocol [facility] Start: 11-03-2024 Assessment of risk o f venous thromboembolism [facility] Start: 11-03-2024 Consultation [facility] Start: 11-03-2024 Inhalation therapy procedure [facility] Start: 11-03-2024 Insertion of cathete r into peripheral vein [facility] Start: 11-03-2024 Measuring intake and output [facility] Start: 11-03-2024 Oxygen therapy [facility] Start: 11-03-2024 Patient referral to dietitian [facility] Start: 11-03-2024 Providing care accor ding to standard [facility] Start: 11-03-2024 Provision of activit y privileges [facility] Start: 11-03-2024 Referral to occupati onal therapist [facility] Start: 11-03-2024 Referral to service [facility] Start: 11-03-2024 [facility] Start: 11-03-2024 Verification routine [facility] Start: 11-03-2024 Hospital admission, emergency, from emergency room, medical nature [facility] Start: 11-03-2024 Admission procedure [facility] Start: 11-03-2024 [facility] Start: 11-03-2024 Patient referral to dietitian [facility] Start: 11-01-2024 [facility] Start: 11-01-2024 [facility] Start: 11-01-2024 Bacteria identified in Urine by Culture Urine Culture [facility] Start: 11-01-2024 Urine culture [facility] Start: 09-11-2024 End: 09-11-2024 [facility] Start: 09-11-2024 Bacteria identified in Blood by Culture Blood Culture [facility] Start: 09-11-2024 Microbial culture, routine Wound Culture [facility] Start: 09-11-2024 Microscopic observat ion [Identifier] in Unspecified specimen by Gram stain [facility] Start: 09-11-2024 Urine culture Urine Culture [facility] Start: 07-14-2024 [facility] Start: 07-13-2024 [facility] Start: 06-19-2024 Patient discharge [facility] Start: 06-18-2024 Referral to service [facility] Start: 06-18-2024 Wound care [facility] Start: 06-17-2024 Consultation for treatment [facility] Start: 06-16-2024 Following clinical pathway protocol [facility] Start: 06-16-2024 Assessment of risk o f venous thromboembolism [facility] Start: 06-16-2024 Incentive spirometry [facility] Start: 06-16-2024 Insertion of cathete r into peripheral vein [facility] Start: 06-16-2024 Measuring intake and output [facility] Start: 06-16-2024 Providing care accor ding to standard [facility] Start: 06-16-2024 Referral to occupati onal therapist [facility] Start: 06-16-2024 Referral to service [facility] Start: 06-16-2024 Tobacco use cessatio n education [facility] Start: 06-16-2024 [facility] Start: 06-16-2024 Admission procedure [facility] Start: 06-16-2024 Patient referral to dietitian [facility] Start: 06-14-2024 Referral to service [facility] Start: 06-14-2024 Consultation [facility] Start: 06-14-2024 Patient discharge [facility] Start: 06-13-2024 Care planning and pr oblem solving actions [facility] Start: 06-12-2024 Wound care [facility] Start: 06-12-2024 Referral to service [facility] Start: 06-12-2024 Referral to occupati onal therapist [facility] Start: 06-11-2024 Consultation for treatment [facility] Start: 06-11-2024 [facility] Start: 06-11-2024 Following clinical pathway protocol [facility] Start: 06-11-2024 Admission procedure [facility] Start: 06-11-2024 Patient referral to dietitian [facility] Start: 06-03-2024 End: 06-03-2024 Patient encounter procedure 06/03/2024 1:30 PM EST Office Visit [facility] [address] [place] [address] Hetal Gallegos MD [address] [address] er f/u R hip/pt will call to get referral [facility] Comment on above: er f/u R hip/pt will call to get referral Start: 01-28-2024 Covid-19 Vaccine ( season) Covid-19 Vaccine ( season) [facility] Start: 01-28-2024 Influenza vaccination Influenz a Vaccine (#1) [facility] Start: 10-09-2023 [facility] Start: 10-09-2023 [facility] Start: 06-06-2022 [facility] Work Phone: Start: 05-22-2022 [facility] Work Phone: Start: 2021 RSV Vaccine (1 - Ris k 60-74 years 1-dose series) RSV Vaccine (1 - Risk 60-74 years 1-dose series) [facility] Start: 02-29-2016 Prostate specific an tigen measurement Prostate Cancer Screening Discussion [facility] Start: 2011 Shingrix Vaccine (1 of 2) Blanco grix Vaccine (1 of 2) [facility] Start: 2006 Screening for malign ant neoplasm of colon [facility] Start: 02-29-1996 Lipid panel Lipid Screening [facility] Start: 02-29-1980 Urine microalbumin profile DTaP,Tdap,Td Vaccine (1 - Tdap) [facility] Start: 1979 Anxiety Screening Anxiety Screening [facility] Start: 1979 Depression Screening Depression Scre ening [facility] Start: 1979 Hepatitis C screening Hepatitis C Sc reening [facility] Start: 1979 HIV screening HIV Screening [facility] Bacteria identified in Urine by Culture Urine Culture [facility] Work Phone: Patient Education [facility] Work Phone: Patient referral [facility] Work Phone: Immunizations Immunization Date Immunization Notes Care Provider Darryl babin 03-30-2023 influenza virus vaccine, unspecified formulation Hetal Gallegos MD Work Phone: [facility] 03-03-2021 Covid (Pfizer) [facility] 03-03-2021 Influenza virus vaccine [facility] 07-24-2020 Covid (Pfizer) [facility] 07-07-2020 Covid (Pfizer) [facility] 02-26-2018 Influenza virus vaccine [facility] 02-27-2017 Influenza virus vaccine [facility] 02-23-2016 Influenza virus vaccine [facility] 03-17-2015 influenza, injectabl e, quadrivalent, preservative free [facility] 03-17-2015 influenza, seasonal, injectable [facility] Work Phone: 04-29-2013 Influenza virus vaccine [facility] 2012 Pneumococcal Vaccine [facility] Work Phone: 2012 pneumococcal vaccine , unspecified formulation [facility] Payers Date Payer Category Payer Medicare [id number] 2024 Self-pay [id number] 2024 Unknown [id number] 2016 Medicare [id number] 2015 Unknown [id number] Medicare [id number] Private Health Insurance [facility] [id number] Unknown Unknown [id number] 2.16.8 [id number] Unknown [id number] 2.16.8 [id number] Unknown [id number] 2.16.8 [id number] Unknown [id number] 2.16.8 [id number] Unknown [id number] 2.16.8 [id number] Unknown [id number] 2.16.8 [id number] Unknown [id number] 2.16.8 [id number] Unknown [id number] 2.16.8 40.1.613769.3.579.2.462 Unknown [id number] 2.16.8 40.1.711335.3.579.2.462 Unknown [id number] 2.16.8 40.1.174613.3.579.2.462 Unknown [id number] 2.16.8 40.1.650647.3.579.2.462 Unknown [id number] 2.16.8 40.1.259828.3.579.2.462 Unknown [id number] 2.16.8 40.1.241016.3.579.2.462 Unknown [id number] 2.16.8 40.1.016221.3.579.2.462 Unknown [id number] 2.16.8 40.1.838419.3.579.2.462 Unknown [id number] 2.16.8 40.1.154653.3.579.2.462 Unknown [id number] 2.16.8 40.1.334672.3.579.2.462 Unknown [id number] 2.16.8 40.1.791157.3.579.2.462 Unknown [id number] 2.16.8 40.1.425544.3.579.2.462 Social History Date Type Detail Facility Start: 09-09-2021 End: 10-09-2023 Tobacco smoking status LAIS Unknown if ever smoked [facility] Start: 06-27-2021 Heavy [facility] Start: 01-19-2019 None [facility] Start: 01-19-2019 Spouse/ Signif icant Other [facility] Start: 06-27-2021 Cigarettes [facility] Start: 1960 Sex Assigned At Male W [facility] Start: 01-21-2016 Tobacco smoking stat us LAIS Smokes tobacco daily [facility] Start: 05-03-2024 Alcoholic beverage intake Current non-drinker of alcohol (finding) [facility] Start: 05-03-2024 End: 05-04-2024 History of Social function [facility] Start: 05-03-2024 End: 05-04-2024 Tobacco use panel [facility] National Score (1-100), lower number is lower risk 80 [facility] Start: 1960 Sex assigned at Not on file C [facility] Start: 09-11-2024 End: 11-04-2024 Tobacco smoking status NHIS Ex-smoker (finding) [facility] Start: 09-12-2024 Sex Male (finding) [facility] Medical Equipment Procedure Code Equipment Code Equipment Origin al Text Equipment Identifier Dates ([id number]) Drug-eluting coronary artery stent, bioabsorbable-polyme r-coated ([id number] FDA Start: 06-29-2021 Goals Date Patient Goal Desired Activity /State Functional Status Date Assessment Result Facility 11-05-2024 Functional status Bedrest [facility] Work Phone: 06-19-2024 Functional status Bedrest [facility] Work Phone: 06-14-2024 Functional status Bedrest [facility] Work Phone: 06-29-2021 Functional status Activity Abili ty With Assist of 2;Bedrest [facility] Work Phone: Mental Status Date Assessment Result Facility 11-05-2024 Cognitive function Voice/Name [facility] Work Phone: 11-03-2024 Cognitive function Level Of Cons ciousness Awake;Alert;Appropriate;Follow s Commands [facility] Work Phone: 07-14-2024 Cognitive function Level Of Cons ciousness Awake;Alert;Appropriate;Follow s Commands [facility] Work Phone: 07-13-2024 Cognitive function Voice/Name [facility] Work Phone: 06-19-2024 Cognitive function Voice/Name [facility] Work Phone: 06-14-2024 Cognitive function Voice/Name [facility] Work Phone: 10-09-2023 Cognitive function Level Of Cons ciousness Awake;Alert;Appropriate [facility] Work Phone: 06-06-2022 Cognitive function Awake;Alert;Disoriente d [facility] Work Phone: 06-29-2021 Cognitive function Voice/Name [facility] Work Phone: 06-28-2021 Cognitive function Patient Orien tation Person;Place;Time [facility] Work Phone: Clinical Notes 05-06-2024 to 11-05-2024 Note Date & Type Note Facility 11-05-2024 Discharge summary Note Date/Time November 05, 2024 3:19pm [facility] Medical Records Department [address] [place] [address] Discharge Summary 11/05/24 1514 MR#: [id number] Acct: [id number] Name: BAUTISTA RUFFIN Rep #:[id number] : 1960 64 From: Adan Schneider DO PCP: [facility] Status:ADM [place] [facility] [place] Providers Date of Admission: 11/04/24 Primary Care Physician: [facility] Consultations 11/03/24 17:38 Consult: Infectious Disease Routine Consulting Provider: Maulik Jenkins Reason for Consult: Complicated UTI EMERGENT Consult: No MD Notified: Yes Date Notified: 11/04/24 Time Notified: 07:42 Method of Notification: Text Consult: Onc/Wound/auto body man Routine Comment: 11/03/24 18:25 Consult: Onc/Wound/auto body man Routine Comment: Reason For Visit: COMPLICATED PSEUDOMONAS [...] home health care will not be available [id number] to be able to help with that. [...] Attending Provider: Adan Schneider Primary Care Provider: [facility] Consulting Providers: Milady Tilley; Maulik Jenkins Discharge [...] Self Care Charges/Coding Visit Charges Inpatient E&M: 01485 Disch Hosp >30min 11/05/24 1519 <Electronically signed by Adan Schneider DO> Cosigner Signature (if applicable): CC: Dr. Adan Schneider DO; [facility]~ Signed [facility] Work Phone: 1(849) 999-972106-10-2025 Progress note Author Adan Schneider [facility] Note Date/Time November 05, 2024 2:23 pm [facility] Medical Records Department [address] [place] [address] Progress Note - Hospitalist 11/05/24 0746 MR#: [id number] Acct: [id number] Name: BAUTISTA RUFFIN Rep #:[id number] : 1960 64 From: Adan Schneider DO [facility]CP: [facility] Status:ADM IN Location: [place] KR891-7 Reason for Visit Reason for Visit: Diagnoses [...] a SNF. Charges/Coding Visit Charges Inpatient E&M: 84350 Subs Hosp L1 11/05/24 1423 <Electronically signed by Adan Schneider DO> Cosigner Signature (if applicable): CC: ~ Signed [facility] Work Phone: 1(562) 802-852206-10-2025 Discharge summary [facility] Medical Records Department [address] [place] [address] Discharge Summary 11/05/24 1514 MR#: [id number] Acct: [id number] Name: BAUTISTA RUFFIN Rep #:[id number] : 1960 64 From: Adan Schneider DO PCP: [facility] Status:ADM IN [place] [facility] [id number] Providers Date of Admission: 11/04/24 Primary Care Physician: [facility] Consultations 11/03/24 17:38 Consult: Infectious Disease Routine Consulting Provider: Maulik Jenkins Reason for Consult: Complicated UTI EMERGENT Consult: No MD Notified: Yes Date Notified: 11/04/24 Time Notified: 07:42 Method of Notification: Text Consult: Onc/Wound/auto body man Routine Comment: 11/03/24 18:25 Consult: Onc/Wound/auto body man Routine Comment: Reason For Visit: COMPLICATED PSEUDOMONAS [...] home health care will not be available [id number] to be able to help with that. [...] Attending Provider: Adan Schneider Primary Care Provider: [facility] Consulting Providers: Milady Tilley; Maulik Jenkins Discharge [...] Self Care Charges/Coding Visit Charges Inpatient E&M: 68307 Disch Hosp >30min 11/05/24 1519 Cosigner Signature (if applicable): CC: Dr. Adan Schneider DO; [facility]~ Signed [facility]06[facility]10[facility] Progress note [facility] Medical Records Department [address] [place] [address] Progress Note - Hospitalist 11/05/24 0746 MR#: [id number] Acct: [id number] Name: BAUTISTA RUFFIN Rep #:[id number] : 1960 64 From: Adan Schneider DO [facility] Status:ADM IN [place] [facility] [place]Q019-7 Reason for Visit Reason for Visit: Diagnoses [...] a SNF. Charges/Coding Visit Charges Inpatient E&M: 49846 Subs Hosp L1 11/05/24 1423 Cosigner Signature (if applicable): CC: ~ Signed [facility]06-09-2025 Evaluation note* Diagnosis Onset Date Resolution [...] 5:06pm Paraplegia chronic November 04, 2024 5:06pm [facility] Work Phone: 1(429) 242-536806-09-2025 Consult note Author Maulik Jenkins [facility] Note Date/Time November 04, 2024 3:10p m [facility] Medical Records Department [address] [place] [address] Consultation - Infectious Dx 11/04/24 1508 MR#: [id number] Acct: [id number] Name: BAUTISTA RUFFIN Rep #:[id number] : 1960 64 From: Maulik adams MD PCP: [facility] Status:ADM [facility]GIO [facility] Assessment & Plan Assessment/Plan (1) Acute UTI: PLAN: Picc planned. Ucx with PsA. Will write for 5 more days cefepime. Feeling better. will follow, thank you, d/w case resource manager (2) Chronic suprapubic catheter: (3) Paraplegia: HPI [...] performed and neg except as noted above. [facility] Medical History Sacral decubitus ulcer, stage III Atherosclerotic heart disease of [place] coronary artery without angina pectoris Depression Chronic [...] % (Auto) 59.7, Lymph % (Auto) 25.3, Eagle % (Auto) 11.7 H, Eos % (Auto) [...] Jenkins MD> Cosigner Signature (if applicable): CC: [facility]~ Signed [facility] Work Phone: 1(812) 147-243106-09-2025 Progress note Author Adan Schneider [facility] Note Date/Time November 04, 2024 1:34p m [facility] Medical Records Department [address] [place] [address] Progress Note - Hospitalist 11/04/24 1324 MR#: [id number] Acct: [id number] Name: BAUTISTA RUFFIN Rep #:[id number] : 1960 64 From: Adan Schneider DO PCP: [facility] Status:ADM SERGIO Location: [place] [address] Reason for Visit Reason for Visit: Diagnoses [...] % (Auto) 59.7, Lymph % (Auto) 25.3, Eagle % (Auto) 11.7 H, Eos % (Auto) [...] lower chance of developing HCC. Reading Location: [facility] Chest X-Ray 11/03/24 14:35 IMPRESSION: No acute process detected. Reading Location: [facility] Physical Exam Const alert and no [...] VTE prophylaixs:LMWH Charges/Coding Visit Charges Inpatient E&M: 23737 Subs Hosp L2 11/04/24 1334 <Electronically signed by Adan Schneider DO> Cosigner Signature (if applicable): CC: ~ Signed [facility] Work Phone: 1(485) 810-790406-09-2025 Consult note [facility] Medical Records Department [address] [place] [address] Consultation - Infectious Dx 11/04/24 1508 MR#: [id number] Acct: [id number] Name: BAUTISTA RUFFIN Rep #:[id number] : 1960 64 From: Maulik adams MD [facility] Status:ADM SERGIO [place] [facility] WN975-8 Assessment & Plan Assessment/Plan (1) Acute UTI: PLAN: Picc planned. Ucx with PsA. Will write for 5 more days cefepime. Feeling better. will follow, thank you, d/w case resource manager (2) Chronic suprapubic catheter: (3) Paraplegia: HPI Consult Data Date of Consult: 11/04/24 HPI Narrative Reason for Consultation: uti HPI Narrative: BAUTISTA RUFFIN, is a 64 M with paraplegia, suprapubic catheter, presented with 2- 3 days fatigue, notfeeling well, nausea. No fever, no abd pain. Came to ED, admitted on cefepime, feeling better today. Full ROS performed and neg except as noted above. [facility] Medical History Sacral decubitus ulcer, stage III Atherosclerotic heart disease of [place] coronary artery without angina pectoris Depression Chronic [...] % (Auto) 59.7, Lymph % (Auto) 25.3, Eagle % (Auto) 11.7 H, Eos % (Auto) [...] 11/04/24 1510 Cosigner Signature (if applicable): CC: [facility]~ Signed [facility]06-09-2025 Progress note [facility] Medical Records Department [address] [place] [address] Progress Note - Hospitalist 11/04/24 1324 MR#: [id number] Acct: [id number] Name: BAUTISTA RUFFIN Rep #:[id number] : 1960 64 From: Adan Schneider DO [facility]CP: [facility] Status:ADM SERGIO Location: [place] [address] Reason for Visit Reason for Visit: Diagnoses [...] % (Auto) 59.7, Lymph % (Auto) 25.3, Eagle % (Auto) 11.7 H, Eos % (Auto) [...] lower chance of developing HCC. Reading Location: [facility] Chest X-Ray 11/03/24 14:35 IMPRESSION: No acute process detected. Reading Location: [facility] Physical Exam Const alert and no [...] VTE prophylaixs:LMWH Charges/Coding Visit Charges Inpatient E&M: 45164 Subs Hosp L2 11/04/24 5898 Cosigner Signature (if applicable): CC: ~ Signed [facility]06-08-2025 History and physical note Author Milady Tilley [facility] Note Date/Time November 03, 2024 4:56p m [facility] Medical Records Department [address] [place] [address] H&P Exam - Hospitalist 11/03/24 1621 MR#: [id number] Acct: [id number] Name: BAUTISTA RUFFIN Rep #:[id number] : 1960 64 From: Milady Tilley DO [facility]CP: [facility] Status:ADM SERGIO Location: [place] [id number] HPI - General General Date of Admission: 11/03/24 Date of Service: 11/03/24 Chief Complaint: Nausea/generalized weakness HPI Narrative BAUTISTA RUFFIN, is a 64 M who presented to the emergency department at [facility] with nausea and generalized weakness slightly. [...] likely discharge tomorrow after infectious disease consultation. [facility] Medical History Sacral decubitus ulcer, stage III Atherosclerotic heart disease of [place] coronary artery without angina pectoris Depression Chronic [...] % (Auto) 69.4, Lymph % (Auto) 22.5, Eagle % (Auto) 6.7, Eos % (Auto) 0.9, [...] of developing HCC. [facility] Chest X-Ray 11/03/24 14:35 IMPRESSION: No acute process detected. Reading [facility] Assessment & Plan Assessment/Plan (1) Pseudomonas [...] full code Charges/Coding Visit Charges Inpatient E&M: 25638 Init Hosp L2 11/03/24 1656 <Electronically signed by Milady Tilley DO> Cosigner Signature (if applicable): CC: Dr. Milady Tilley DO; [facility]~ Signed [facility] Work Phone: 1(603) 643-443406-08-2025 History and physical note [facility] Medical Records Department [address] [place] [address] H&P Exam - Hospitalist 11/03/24 1621 MR#: [id number] Acct: [id number] Name: BAUTISTA RUFFIN Rep #:[id number] : 1960 64 From: Milady Tilley DO PCP: [facility] Status:ADM SERGIO [place] [facility] FW883-1 HPI - General General Date of Admission: 11/03/24 Date of Service: 11/03/24 Chief Complaint: Nausea/generalized weakness HPI Narrative BAUTISTA RUFFIN, is a 64 M who presented to the emergency department at [facility] with nausea and generalized weakness slightly. [...] likely discharge tomorrow after infectious disease consultation. [facility] Medical History Sacral decubitus ulcer, stage III Atherosclerotic heart disease of [place] coronary artery without angina pectoris Depression Chronic [...] % (Auto) 69.4, Lymph % (Auto) 22.5, Eagle % (Auto) 6.7, Eos % (Auto) 0.9, [...] lower chance of developing HCC. Reading Location: [facility] Chest X-Ray 11/03/24 14:35 IMPRESSION: No acute process detected. Reading Location: [facility] Assessment & Plan Assessment/Plan (1) Pseudomonas [...] full code Charges/Coding Visit Charges Inpatient E&M: 44286 Init Hosp L2 11/03/24 1656 Cosigner Signature (if applicable): CC: Dr. Milady Tilley DO; [facility]~ Signed [facility]06-08-2025 Radiology Diagnostic study note [facility] Imaging Services [address] [place] [address] Chest 1 View (Portable) MR#: [id number] Acct: [id number] Name: BAUTISTA RUFFIN Rep #: [id number] : 1960 M 64 From: Pet er Peer PCP: [facility] Status: REG ER Study:Chest 1 View (Portable) Date of Exam: 11/03/24 Exam# [id number] Ordering Dr: Julia Pedroza DO PROCEDURE: CHEST 1 VIEW (PORTABLE) 11/03/2024 REASON FOR EXAM: WEAKNESS TECHNIQUE: Frontal view of the chest. COMPARISON: Chest radiograph 07/14/2024 FINDINGS: Hardware: EKG lead wires Heart: Normal size Lungs: Clear Bones: No aggressive lesions identified Other: RAD/Chest 1 View (Portable) IMPRESSION: No acute process detected. Reading Location: [facility]- CC: Dr. Alma Rosa Pedroza DO; [facility] ~ University Administrator: Signed [facility]06-08-2025 Radiology Diagnostic study note [facility] Imaging Services [address] [place] [address] Abdomen/Pelvis W IV Cont ONLY MR#: [id number] Acct: [id number] Name: BAUTISTA RUFFIN Rep #: [id number] : 1960 M 64 From: Pet er Peer PCP: [facility] Status: REG ER Study:Abdomen/Pelvis W IV Cont ONLY Date of E xam: 11/03/24 Exam# [id number] Ordering Dr: Julia Pedroza DO PROCEDURE: ABDOMEN/PELVIS [...] [facility]-NL CC: Dr. Alma Rosa Pedroza DO; [facility] ~ University Administrator: Signed [facility]06-08-2025 Evaluation note* Diagnosis Onset Date Resolution Status Admit Date Acute paraplegia acute October 4:12pm Acute UTI acute November 03, 2024 4:12pm Debility acute November 03, 2024 4:12pm Failure of outpatient treatment acut e November 03, 2024 4:12pm Nausea acute November 03, 2024 4:12pm Pseudomonas urinary tract infection acute November 03, 2024 4 :12pm Chronic suprapubic catheter chronic November 03, 2024 4:12pm [facility] Work Phone: 1(966) 234-693404-17-2025 Discharge summary [facility] Medical Records Department [address] [place] [address] Emergency Department Summary 09/11/24 MR#: [id number] Acct: [id number] Name: BAUTISTA RUFFIN Rep #:[id number] : 1960 64 From: Alex Sheppard [employer] APPRAISERParish PCP: [facility] Status:REG ER Location: ED ADDENDUM by Dr. Alma Rosa Pedroza DO on 09/12/24 at 1144 Care of patient turned over to [place] awaiting transfer to tertiary care center for definitive care at [place]. Patient remained hemodynamically stable. [facility] will use there transfer team to transfer patient I am told at 1300 hrs. 09/12/24 1144 Cosigner Signature (if applicable): 09/12/24 0012 cc: [facility] ~* Signed HPI History of Present Illness Chief Complaint: Cellulitis Narrative Narrative: Patient is a 64-year-old male that is a paraplegic, this is secondary to transverse myelitis, patient also has history of wounds, colostomy, catheter, anxiety who presents to the [facility] for wound evaluation. Patient does live at home, patient's as well as some home care nursing doestake care of him. The home care nurses noticed that there was a foul-smelling odor from multiple wounds on his sacrum, buttocks area, they referred him to the [facility]. Patient denies any fever or chills. Patient does not state he has any pain however he has no feeling. [facility] Medical History Sacral decubitus ulcer, stage III Atherosclerotic heart disease of [place] coronary artery without angina pectoris Depression Chronic [...] 96 Pulse Ox 95 Oxygen Delivery Method [facility] Lab Data Labs: Laboratory Results - last 24 hr 09/11/24 09/11/24 16:00 16:56 WBC 11.6 H RBC 5.05 Hgb 13.0 Hct 40.9 MCV 81.0 MCH 25.7 L MCHC 31.8 L RDW Std Deviation 51.1 H RDW Coeff of Bhanu 17.6 H Plt Count 371 MPV 8.6 Immature Gran % (Auto) 0.400 Neut % (Auto) 66.2 Lymph % (Auto) 20.8 Eagle % (Auto) 8.6 Eos % (Auto) 3.6 [...] Clarity Clear Urine pH 6.0 Ur Specific [place] 1.015 Urine Protein 15 H Urine Glucose [...] ischium bilaterally but no abscess. Reading Location: [id number] Treatment and Re-Evaluation :: Differential diagnosis includes [...] doeswant to try to go to the [facility]. We will try to see if they have a bed. If not the patient will be admitted here. Patient will be admitted to [facility]. MDM MDM Narrative Medical decision making narrative: [...] myself. Patient requested to go to the [facility]. Patient was accepted there. Patient was to be transferred to the emergency department there. However, ambulance service stated that the patient's insurance wouldnotcover their ambulance transfer [facility] the [facility] unavailable [...] Std Deviation 51.1 H RDW Coeff of Hbanu 17.6 H Plt Count 371 MPV 8.6 Immature Gran % (Auto) 0.400 Neut % (Auto) 66.2 Lymph % (Auto) 20.8 Eagle % (Auto) 8.6 Eos % (Auto) 3.6 [...] Clarity Clear Urine pH 6.0 Ur Specific [place] 1.015 Urine Protein 15 H Urine Glucose [...] ischium bilaterally but no abscess. Reading Location: [facility] Discharge Plan Triage Chief Complaint: Cellulitis [...] Days Qty: 20 0RF Primary Care Provider[facility] Referrals: [facility] [Primary Care Provider] - Print Language: Kyrgyz Disposition Disposition: Acute Care Hospital Discharge Location: Department of Affairs What to do if you have Problems For any increased pain, shortness of breath, bleeding, nausea or vomiting, chestpain, or any unexpected problems, contact your Primary Care Provider. Call [facility] ([phone]) or report tothe closest Emergency Room. Call 911 if necessary. 09/11/242147 Cosigner Signature (if applicable): 09/12/24 0012 CC: [facility] ~ Signed [facility]04-16-2025 Radiology Diagnostic study note [facility] Imaging Services [address] [place], [place] [address] Pelvis WITH IV Contrast MR#: [id number] Acct: [id number] Name: BAUTISTA RUFFIN Rep #: [id number] : 1960 Rylee 64 From: Maxwell Figueroa MD PCP: [facility] Status: REG ER Study:Pelvis WITH IV Contrast Date of Exam: 09/11/24 Exam# [id number] Ordering Dr: Alex Ellis [employer] APPRAISER-C PROCEDURE: PELVIS WITH IV CONTRAST REASON FOR [...] ischium bilaterally but no abscess. Reading Location: [id number] CC: MARCOS Sheppard; [facility] ~ University Administrator: Signed [facility]04-16-2025 Discharge summary Author Alex Sheppard [facility] Note Date/Time September 12, 2024 11: 45am [facility] Medical Records Department [address] [place] [address] Emergency Department Summary 09/11/24 MR#: [id number] Acct: [id number] Name: BAUTISTA RUFFIN Rep #:[id number] : 1960 64 From: Alex RODRÍGUEZ PCP: [facility] Status:REG ER Location: ED ADDENDUM by Dr. Alma Rosa Pedroza DO on 09/12/24 at 1144 Care of patient turned over to n[place] awaiting transfer to tertiary care center for definitive care at [place]. Patient remained hemodynamically stable. [facility] will use there transfer team to transfer patient I am told at 1300 hrs. 09/12/24 1144<Electronically signed by Alma Rosa Pedroza DO> Cosigner Signature (if applicable): 09/12/24 0012 <Electronically signed by Adwoa NARVAEZ> cc: [facility] ~* Signed HPI <MARCOS Holliday - Last Filed: 09/11/24 21:48> History of Present Illness Chief Complaint: Cellulitis Narrative Narrative: Patient is a 64-year-old male that is a paraplegic, this is secondary to transverse myelitis, patient also has history of wounds, colostomy, catheter, anxiety who presents to the [facility] for wound evaluation. Patient does live at home, patient's as well as some home care nursing does take care of him. The home care nurses noticed that there was a foul-smelling odor from multiple wounds on his sacrum, buttocks area, [facility] Patient denies any fever or chills. Patient does not state he has any pain however he has no feeling. [facility] <MARCOS Holliday - Last Filed: 09/11/24 21:48> [facility] Medical History Sacral decubitus ulcer, stage III Atherosclerotic heart disease of [place] coronary artery without angina pectoris Depression Chronic [...] 96 Pulse Ox 95 Oxygen Delivery Method [facility] <MARCOS Holliday - Last Filed: [...] % (Auto) 66.2 Lymph % (Auto) 20.8 Eagle % (Auto) 8.6 Eos % (Auto) 3.6 [...] Clarity Clear Urine pH 6.0 Ur Specific [place] 1.015 Urine Protein 15 H Urine Glucose [...] ischium bilaterally but no abscess. Reading Location: [facility] Treatment and Re-Evaluation :: Differential diagnosis [...] want to try to go to the [facility]. We will try to see if they have a bed. If not the patient will be admitted here. Patient will be admitted to [facility]. <Dr. Adan Bell, DO - Last Filed: 09/12/24 00:12> [facility] MDM Narrative Medical decision making narrative: I [...] myself. Patient requested to go to the [facility]. Patient was accepted there. Patient was to be transferred to the emergency department there. However, ambulance service stated that the patient's insurance would notcover their ambulance [facility]. [facility] [...] % (Auto) 66.2 Lymph % (Auto) 20.8 Eagle % (Auto) 8.6 Eos % (Auto) 3.6 [...] Clarity Clear Urine pH 6.0 Ur Specific [place] 1.015 Urine Protein 15 H Urine Glucose [...] ischium bilaterally but no abscess. Reading Location: [facility] Discharge Plan Triage Chief Complaint: Cellulitis [...] Days Qty: 20 0RF Primary Care Provider[facility] [Primary Care Provider] - Print Language: Kyrgyz Disposition Disposition: Acute Care Hospital Discharge Location: [facility] [place] [facility] What to do if you have Problems For any increased pain, shortness of breath, bleeding, nausea or vomiting, chestpain, or any unexpected problems, contact your Primary Care Provider. Call [facility] ([phone]) or report to the closest Emergency Room. Call 911 if necessary. 09/11/242147 <Electronically signed by Alex RODRÍGUEZ> Cosigner Signature (if applicable): 09/12/2411 <Electronically signed by Adan Bell DO> CC: [facility] ~ Signed [facility] Work Phone: [phone]) 289-246601-22-2025 [facility]01-17-2025 [facility]01-14-2025 Evaluation note* Diagnosis Onset Date [...] ulcer, stage III inactive June 16 7:56pm [facility] Work Phone: [phone]) 465-600212-13-2024 Telephone encounter Note* Telephone Encounter - Stacy Gongora - 05/10/2024 10:30 AM EST I spoke with the patient and scheduled an appointment. Stacy Gongora [facility]12-13-2024 Miscellaneous Notes* Telephone Encounter - Stacy [...] in 3 weeks please [facility] Telephone encounter Note * Telephone Encounter - Stacy Gongora - 05/07/2024 9:07 AM EST I called the patient to schedule an appointment. I left another voice mail with our office number to call back. Of note he has 2 numbers in the chart. The 601# does not work. Stacy Gongora [facility]12-09-2024 Telephone encounter Note* Telephone Encounter - Stacy Gongora - 05/06/2024 8:17 AM EST I called the patient to schedule an appointment with MTM in 3 weeks. I left a voice mail with our office number to call back. Stacy Gongora [facility]12-09-2024 Telephone encounter Note* Telephone Encounter - Stacy Gongora - 05/06/2024 8:17 AM EST ----- Message from Hetal Gallegos MD sent at 05/04/2024 12:05 PM EST ----- Follow-up in 3 weeks [facility] Diagnosis Onset Date Resolution Status Non-ST elevated myocardial infarction (non-STEMI) resolved [facility] Work Phone: Evaluation noteNo assessment information available [facility] Work Phone: History and physical note Author Milady Tilley [facility] Note Date/Time November 03, 2024 4:56p m [facility] Medical Records Department [address] [place] [address] H&P Exam - Hospitalist 11/03/24 1621 MR#: [id number] Acct: [id number] Name: BAUTISTA RUFFIN Rep #:[id number] : 1960 64 From: Milady Tilley DO PCP: [facility] Status:ADM SERGIO [place] [id number] HPI - General General Date of Admission: 11/03/24 Date of Service: 11/03/24 Chief Complaint: Nausea/generalized weakness HPI Narrative BAUTISTA RUFFIN, is a 64 M who presented to the emergency department at [facility] with nausea and generalized weakness slightly. [...] likely discharge tomorrow after infectious disease consultation. [facility] Medical History Sacral decubitus ulcer, stage III Atherosclerotic heart disease of [place] coronary artery without angina pectoris Depression Chronic [...] % (Auto) 69.4, Lymph % (Auto) 22.5, Eagle % (Auto) 6.7, Eos % (Auto) 0.9, [...] of developing HCC. [facility] Chest X-Ray 11/03/24 14:35 IMPRESSION: No [...] full code Charges/Coding Visit Charges Inpatient E&M: 55482 Init Hosp L2 11/03/24 1656 <Electronically signed by Milady Tilley DO> Cosigner Signature (if applicable): CC: Dr. Milady Tillye, ; [facility]~ Signed [facility] Work Phone: Hospital Discharge instructions Additional [...] if any worsening symptoms. Take medications as prescribed.[facility] Work Phone: Hospital Discharge instructions Additional Instructions Your suprapubic cath was exchanged 18 Congolese placed with urine output. Urine culture pending. Taking finish antibiotic as scribed. Follow-up with your urology team.[facility] Work Phone: Reason for referral (narrative)No reason for referral information availableWAd[facility] Work Phone: Summary Purpose Family History No Family History Records Found Relationship Condition Age at Onset Recorded Date/T dianelys father Cerebrovascular accident (CVA) Unknown Cardiac disease Unknown Myocardial infarction Unknown Advance Directives No Advanced Directives Records Found Advance Directive Response Recorded Date/ Time Name of Medical Power of Senior Research Scientist mother and sis ter June 28, 2021 5:01am Advance Directives No June 29, 2016 2:07am Living Will No September 09, 2021 3:30pm Power of Senior Research Scientist No September 09 3:30pm Advance Directive Response Recorded Date/ Time Advance Directives No June 29, 2016 1:07am Living Will Yes May 22, 2 022 4:43pm Power of Senior Research Scientist Yes May 22, 2022 4:43pm Name of Medical Power of Senior Research Scientist milka ter May 22, 2022 4:43pm Advance Directive Response Recorded Date/ Time Name of Medical Power of Senior Research Scientist milka horner May 22, 2022 4:43pm Advance Directives No June 29, 2016 1:07am Living Will No June 06 4:21pm Power of Senior Research Scientist No June 06 023 4:21pm Advance Directive Response Recorded Date/ Time Advance Directives No June 29, 2016 2:07am Living Will Yes October 09, 2023 1 :17am Power of Senior Research Scientist Yes October 09, 2023 1:17am Name of Medical Power of Senior Research Scientist Gloria ex wif e October 09, 2023 1:17am Advance Directive Response Recorded Date/ Time Living Will No June 12 12:19am Do you have a Healthcare Pow er of Senior Research Scientist? No June 12, 2024 12:19am Living Will Yes July 14 025 8:10am Do you have a Healthcare Pow er of Senior Research Scientist? Yes July 14, 2024 8:10am Name of Medical Power of Senior Research Scientist ANTHONY PLANT July 14, 2024 8:10am Living Will Yes September 11, 2024 3:41pm Do you have a Healthcare Pow er of Senior Research Scientist? Yes September 11, 2024 3:41pm Name of Medical Power of Senior Research Scientist Marisela September 11, 2024 3:41pm Living Will Yes June 16 10:03pm Do you have a Healthcare Pow er of Senior Research Scientist? Yes June 16, 2024 10:03pm Name of Medical Power of Senior Research Scientist yudith plant w nusrat June 16, 2024 10:03pm Living Will No July 13 025 3:32am Do you have a Healthcare Pow er of Senior Research Scientist? No July 13, 2024 3:32am Advance Directives No June 29, 2016 2:07am Advance Directive Response Recorded Date/ Time Living Will Yes July 14 025 8:10am Do you have a Healthcare Power of Senior Research Scientist? Yes July 14, 2024 8:10am Name of Medical Power of Senior Research Scientist ANTHONY PLANT July 14, 2024 8:10am Living Will Yes September 11, 2024 3:41pm Do you have a Healthcare Power of Senior Research Scientist? Yes September 11, 2024 3:41pm Name of Medical Power of Senior Research Scientist Marisela September 11, 2024 3:41pm Do you have a Healthcare Power of Senior Research Scientist? Yes November 01, 2024 2:11pm Living Will No July 13 3:32am Do you have a Healthcare Power of Senior Research Scientist? No July 13, 2024 3:32am Advance Directives No June 29, 2016 2:07am Advance Directive Response Recorded Date/ Time Living Will Yes July 14 8:10am Do you have a Healthcare Power of Senior Research Scientist? Yes July 14, 2024 8:10am Name of Medical Power of Senior Research Scientist ANTHONY PLANT July 14, 2024 8:10am Living Will Yes September 11, 2024 3:41pm Do you have a Healthcare Power of Senior Research Scientist? Yes September 11, 2024 3:41pm Name of Medical Power of Senior Research Scientist Marisela September 11, 2024 3:41pm Do you have a Healthcare Power of Senior Research Scientist? Yes November 01, 2024 2:11pm Do you have a Healthcare Power of Senior Research Scientist? No November 03, 2024 2:03pm Living Will No July 13 3:32am Do you have a Healthcare Power of Senior Research Scientist? No July 13, 2024 3:32am Advance Directives No June 29, 2016 2:07am Advance Directive Response Recorded Date/ Time Living Will Yes July 14 8:10am Do you have a Healthcare Power of Senior Research Scientist? Yes July 14, 2024 8:10am Name of Medical Power of Senior Research Scientist ANTHONY PLANT July 14, 2024 8:10am Living Will Yes September 11, 2024 3:41pm Do you have a Healthcare Power of Senior Research Scientist? Yes September 11, 2024 3:41pm Name of Medical Power of Senior Research Scientist Marisela September 11, 2024 3:41pm Do you have a Healthcare Power of Senior Research Scientist? Yes November 01, 2024 2:11pm Do you have a Healthcare Power of Senior Research Scientist? Yes November 03, 2024 5:39pm Living Will No July 13 3:32am Do you have a Healthcare Power of Senior Research Scientist? No July 13, 2024 3:32am Advance Directives [...] section and content) DATE CREATED AUTHOR 11/20/2017 [facility] DATE CREATED AUTHOR AUTHOR'S ORGANIZ ATION 11/21/2017 [facility] [place] DATE CREATED AUTHOR AUTHOR'S ORGANIZ ATION 05/11/2024 [facility] DATE CREATED AUTHOR AUTHOR'S ORGANIZ ATION 11/18/2024 [facility] Goals (unrecognized section and content) Goals [...] Team Status: Active Member Role Status Dates [facility] Family Provider Active [facility] Primary Care Provider Active Team Status: Inactive Member Role Status Dates [facility] Primary Care Provider Active Dr. Adan Bell DO Emergency Provider Active Associate Medical Director Relationship Specialty Start Date End Date Jamey Huynh MD [address] [place] [address] PCP - General Family Medicine 01/02/12 Team Status: Active Member Role Status Dates [facility] Primary Care Provider Active Team Status: Inactive Member Role Status Dates [facility] Primary Care Provider Active Start: June 11, [...] Team Status: Active Member Role Status Dates [facility] Primary Care Provider Active Start: June 12, [...] Team Status: Active Member Role Status Dates [facility] Primary Care Provider Active Start: June 13, [...] Team Status: Active Member Role Status Dates [facility] Primary Care Provider Active Start: June 14, [...] Team Status: Inactive Member Role Status Dates [facility] Primary Care Provider Active Start: June 16, [...] Team Status: Active Member Role Status Dates [facility] Primary Care Provider Active Start: June 17, [...] Team Status: Active Member Role Status Dates [facility] Primary Care Provider Active Start: June 18, [...] Team Status: Active Member Role Status Dates [facility] Primary Care Provider Active Start: June 19, [...] Team Status: Inactive Member Role Status Dates [facility] Primary Care Provider Active Start: July 13, 2024 End: July 13, 2024 Dr. Richie Borden DO Attending Provider Active Start: July 13, 2024 End: July 13, 2024 Dr. Richie Borden DO Emergency Provider Active Start: July 13, 2024 End: July 13, 2024 Team Status: Inactive Member Role Status Dates [facility] Primary Care Provider Active Start: July 14, 2024 End: July 14, 2024 Dr. Rico Moore , Attending Provider Active Start: July 14, 2024 End: July 14, 2024 Dr. Rico Moore DO Emergency Provider Active Start: July 14, 2024 End: July 14, 2024 Team Status: Inactive Member Role Status Dates [facility] Primary Care Provider Active Start: September 11, 2024 End: September 12, 2024 Dr. Adan Bell , Emergency Provider Active Start: September 11, 2024 End: September 12, 2024 Team Status: Inactive Member Role Status Dates [facility] Primary Care Provider Active Start: September 11, 2024 End: September 12, 2024 Dr. Adan Bell DO Attending Provider Active Start: September 11, 2024 End: September 12, 2024 Dr. Adan Bell DO Emergency Provider Active Start: September 11, 2024 End: September 12, 2024 Team Status: Inactive Member Role Status Dates [facility] Primary Care Provider Active Start: November 01, 2024 End: November 01, 2024 Dr. Zhang Chavez , Emergency Provider Active Start : November 01, 2024 End: November 01, 2024 Team Status: Active Member Role Status Dates [facility] Primary Care Provider Active Start: November 03, 2024 Dr. Alma Rosa Pedroza DO Emergency Provider Active S tart: November 03, 2024 Dr. Milady Tilley , Admit Provider Active Start : November 03, 2024 Dr. Milady Tilley , Attending Provider Active S tart: November 03, 2024 Team Status: Active Member Role Status Dates [facility] Primary Care Provider Active Start: November 03, [...] Team Status: Active Member Role Status Dates [facility] Primary Care Provider Active Start: November 04, [...] Team Status: Inactive Member Role Status Dates [facility] Primary Care Provider Active Start: November 04, [...] Team Status: Active Member Role Status Dates [facility] Primary Care Provider Active Start: November 05, [...] or prosecute any alcohol or drug abuse patient.[facility] FOR RECORDS PERTAINING TO PATIENTS WHO [...] BE BASED ON THE PRIMARY CLINICAL RECORDS. [facility] [employer] provides no warranty or guarantee of the accuracy or completeness of information in this document.
--- NOTE | 2024-11-30 17:52 | VDLE_ITS ---
Reason For Study Reason For Study: Swelling RLE RIGHT GSV is normal. CFV is compressible, spontaneous, phasic, competent and demonstrates normal augmentation. FV is compressible, spontaneous, phasic, competent and demonstrates normal augmentation. POP V is compressible, spontaneous, phasic, competent and demonstrates normal augmentation. T/P Trunk is compressible. PTV is compressible. RT PerV is compressible. Procedure This is a venous duplex using B-mode, color flow and spectral Doppler. Exam performed portable in patient room. A preliminary report was called and/or faxed to Melly BARONE. VL/Venous Duplex US, Unilateral Interpretation Summary Deep veins of the right lower extremity are patent and compressible segmentally . There is no evidence of right lower extremity deep vein thrombosis. Valvular competence appears intact within the p roximal deep venous system on the right . The right great saphenous vein appears patent and compressible segmentally. Ordering Physician: Ricarda Meza Referring Physician: [facility] Performed By: Elizabeth Sorto, MAGALY, RVT
--- NOTE | 2024-11-30 17:53 | PCA ---
THIS HADOOP CONSULTANT [facility], [facility]ER[facility], AND THERE WAS NO VOICEMAIL OPTION
[2024-11-30] MEDS: Cefepime HCl 2 GM in 0.9% Normal Saline (100mL MB+) 100 ML IV (18:25)
[2024-11-30] MEDS: 0.9% Normal Saline (1000mL) 1,000 ML 75 ML IV (18:31)
[2024-11-30] MEDS: MELATONIN 10 MG TABLET PO (22:13)
[2024-12-01 01:45] VITALS: BP 113/57; PULSE 98; RESP 16; TEMP 36.3; O2SAT 100
[2024-12-01 05:23] LABS: Hematocrit 39.6 % (40-54); Hemoglobin 12.7 g/dL (13.0-16.5); Immature Granulocytes Count 0.060 X10^3/uL (0.0-0.0); Mean Corp Hgb Conc 32.1 g/dL (32-36); Mean Corpuscular Volume 77.5 fL (80-94); Mean Platelet Vol. 8.6 fl (6.2-12.0); NRBC Flagged by Analyzer 0 % (0-5); POSITIVE DIFFERENTIAL YES; Platelet Count 379 K/mm3 (150-450); RBC Distribution Width CV 17.2 % (11.6-14.6); RBC Distribution Width SD 48.4 fl (35.1-43.9); Red Blood Count 5.11 M/mm3 (4.6-6.2); White Blood Count 13.5 K/mm3 (4.4-11.0)
[2024-12-01] MEDS: Cefepime HCl 2 GM in 0.9% Normal Saline (100mL MB+) 100 ML IV ×3 (05:40→22:17)
[2024-12-01 05:42] LABS: Anion Gap 16 (5-15); BUN 19 mg/dL (4-19); BUN/Creat Ratio 31.7 RATIO (10-20); Calcium,Total 9.2 mg/dL (7.6-11.0); Carbon Dioxide 19.4 mmol/L (21.0-32.0); Chloride 103 mmol/L (98-108); Estimated Creatinine Clearance 128.15 ml/min (50-250); Glucose 87 mg/dL (70-99); Potassium 4.0 mmol/L (3.3-5.1)
[2024-12-01 05:43] VITALS: BP 135/77; PULSE 96; RESP 16; TEMP 36.7; O2SAT 98
[2024-12-01 05:56] LABS: Differential Indicated SCAN CRITERIA MET
--- NOTE | 2024-12-01 07:17 | PCM.PN.HOSP ---
Reason for Visit Reason for Visit: Bladder spasms Subjective Subjective Pt states that he is feeling better today. Less suprapubic discomfort and bladder spasms. Objective Data Objective Data Vital Signs: Vital Signs Temp Pulse Resp BP Pulse Ox O2 Del Method 98.0 F 96 16 135/77 H 98 Room Air 12/01/24 05:43 12/01/24 05:43 12/01/24 05:43 12/01/24 05:43 12/01/24 05:43 12/01/24 05:43 Oxygen Delivery Method Room Air Weight: 74.3 kg Body Mass Index (BMI) 24.2 Intake & Output: Intake and Output for Last 24 Hours 11/29/24 11/30/24 12/01/24 23:59 23:59 23:59 Intake Total 100 / 100 100 / 100 Output Total 250 / 250 350 / 350 Balance -150 / -150 -250 / -250 Lab / Micro Data 12/01/24 05:09 12/01/24 05:09 Labs: Laboratory Results - last 24 hr 11/30/24 07:28: WBC 12.6 H, RBC 5.13, Hgb 12.7 L, Hct 39.7 L, MCV 77.4 L, MCH 24.8 L, MCHC 32.0, RDW Std Deviation 49.1 H, RDW Coeff of Bhanu 17.4 H, Plt Count 407, MPV 8.8, Immature Gran % (Auto) 0.600, Neut % (Auto) 76.3 H, Lymph % (Auto) 16.2 L, [place] % (Auto) 5.1, Eos % (Auto) 1.4, Baso % (Auto) 0.4, Absolute Neuts (auto) 9.6 H, Absolute Lymphs (auto) 2.04, Nucleated RBC % 0, Sodium 139, Potassium 4.1, Chloride 103, Carbon Dioxide 22.3, Anion Gap 13, BUN 18, Creatinine 0.64 L, Estim Creat Clear Calc 118.14, Est GFR (MDRD) Non-Af 106, BUN/Creatinine Ratio 27.8 H, Glucose 129 H, Calcium 9.2, Troponin T High Sens 32 H D 11/30/24 09:15: Troponin T Hi Sens 2 Hr 23 H 11/30/24 14:43: Urine Color Yellow, Urine Clarity Sl. Cloudy, Urine pH 5.0, Ur Specific [place] 1.025, Urine Protein 30 H, Urine Glucose (UA) Normal, Urine Ketones 50 H, Urine Occult Blood 150 H, Urine Nitrite Negative, Urine Bilirubin Negative, Urine Urobilinogen Normal, Ur Leukocyte Esterase 500 H, Urine RBC 0-5 SEEN, Urine WBC 10-25 SEEN, Ur Squamous Epith Cells 0-5 SEEN, Urine Bacteria 3+, Hyaline Casts 0-5 SEEN, Urine Mucus 1+, Urine Yeast 2+ 12/01/24 05:09: WBC 13.5 H, RBC 5.11, Hgb 12.7 L, Hct 39.6 L, MCV 77.5 L, MCH 24.9 L, MCHC 32.1, RDW Std Deviation 48.4 H, RDW Coeff of Bhanu 17.2 H, Plt Count 379, MPV 8.6, Immature Gran % (Auto) 0.400, Neut % (Auto) 71.3 H, Lymph % (Auto) 16.3 L, [place] % (Auto) 11.2 H, Eos % (Auto) 0.5, Baso % (Auto) 0.3, Absolute Neuts (auto) 9.6 H, Absolute Lymphs (auto) 2.19, Nucleated RBC % 0, Sodium 138, Potassium 4.0, Chloride 103, Carbon Dioxide 19.4 L, Anion Gap 16 H, BUN 19, Creatinine 0.59 L, Estim Creat Clear Calc 128.15, Est GFR (MDRD) Non-Af 109, BUN/Creatinine Ratio 31.7 H, Glucose 87, Calcium 9.2 Radiography Diagnostic Testing: Radiology Impression Chest X-Ray 11/30/24 08:05 IMPRESSION: No acute cardiopulmonary process. Reading Location: [facility] Rhythm Strip Rhythm Strip: Sinus Rhythm Rate: 90 Ectopy: None Physical Exam Const alert, oriented x3, no apparent distress and average body habitus; Negative for healthy appearing Constitutional Narrative: Upper middle aged white male, lying in bed, appears chronically ill, currently comfortable, nontoxic HEENT head/scalp atraumatic and moist oral mucous membranes HEENT Narrative: No thrush Head and Scalp: normocephalic Resp normal respiratory effort, no retractions, no use of accessory muscles and clear to auscultation bilaterally Auscultation: Negative for rales, rhonchi or wheezes Cardio regular rate, regular rhythm, S1 normal heart sound, S2 normal heart sound, no murmurs, no rub, no gallops and no clicks GI normal to inspection, nondistended, normoactive bowel sounds and soft to palpation GI Narrative: Suprapubic catheter in place, suprapubic tenderness in place Extremity Extremity Narrative: Chronic edema noted, no cyanosis or clubbing Neuro oriented x3 Neuro Narrative: paraplegia Speech: speech normal Psych affect normal Psych Narrative: pleasant Assessment & Plan Assessment/Plan (1) UTI (urinary tract infection): (2) Nausea: (3) Edema of right lower extremity: PLAN: Plan Complicated UTI - Patient has history of frequent urinary tract infections that have been drug-resistant previously - Continue antibiotics as ordered - May need to infectious disease consult depending on sensitivities Nausea - Suspect secondary to above - As needed antiemetics and IV fluids - Should improve with treatment of the above infection Leukocytosis -unchanged -continue abx -repeat in am RLE swelling - Patient poor historian, reports this is not new but unable to obtain any other information - Will obtain lower extremity duplex for further characterization Generalized weakness and debility with chronic paraplegia - Like related to acute infection - Will consult physical therapy and Occupational Therapy for assistance during hospitalization - Case management/social work consultation for assistance with discharge planning Chronic sacral and buttock pressure ulcers - Continue vitamin C - Add zinc - Add Mamadou to assist with wound healing - Recommend outpatient follow-up at the wound center and with Dr. 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
[2024-12-01 07:18] LABS: Differential Comment SCANNED
[2024-12-01 08:17] VITALS: BP 145/90; PULSE 100; RESP 18; TEMP 36.3; O2SAT 100
[2024-12-01] MEDS: Buprenorphine 20 mcg Patch (WEEKLY) 1 PATCH TD (08:40)
[2024-12-01] MEDS: Lidocaine 5% Patch 2 PATCH TOPICAL (08:42)
[2024-12-01] MEDS: Aspirin E.C. 81 MG Tablet PO (08:42)
[2024-12-01] MEDS: Cholecalciferol (VIT D3) 25 MCG TABLET (1,000 UNITS) 50 MCG PO (08:42)
[2024-12-01] MEDS: 0.9% Normal Saline (1000mL) 1,000 ML 75 ML IV (08:43)
[2024-12-01] MEDS: Zinc Sulfate 50 mg zinc (220 mg) ORAL capsule PO ×2 (13:47→22:21)
[2024-12-01 14:29] VITALS: BP 134/76; PULSE 98; RESP 18; TEMP 36.1; O2SAT 100
[2024-12-01 17:00] VITALS: BP 135/92; PULSE 82; RESP 18; TEMP 36.4; O2SAT 98
--- NOTE | 2024-12-01 18:20 | NURSING ---
Drsg changed by this RN on 12/01/24 at 1745. Per pt, drsg was applied Monday11/29/24 by home health before presenting to ED. Previous dressing was applied with mepilex/foam, saline soaked gauze in two tunnelled areas, and ABD pads over top. This RN replaced dressing with mepilex, saline soaked gauze and ABDs. Wound draining, yellow/red in color. Drsg labeled with date, time and initials.
[2024-12-01 22:13] VITALS: BP 113/73; PULSE 75; RESP 16; TEMP 36.4; O2SAT 99
[2024-12-02 04:06] VITALS: BP 126/72; PULSE 78; RESP 16; TEMP 36.4; O2SAT 97
[2024-12-02] MEDS: Zinc Sulfate 50 mg zinc (220 mg) ORAL capsule PO ×3 (05:50→21:21)
[2024-12-02 05:51] LABS: Hematocrit 41.3 % (40-54); Hemoglobin 11.9 g/dL (13.0-16.5); Immature Granulocytes Count 0.020 X10^3/uL (0.0-0.0); Mean Corp Hgb Conc 28.8 g/dL (32-36); Mean Corpuscular Volume 85.2 fL (80-94); Mean Platelet Vol. 9.6 fl (6.2-12.0); NRBC Flagged by Analyzer 0 % (0-5); Platelet Count 204 K/mm3 (150-450); RBC Distribution Width CV 17.9 % (11.6-14.6); RBC Distribution Width SD 55.8 fl (35.1-43.9); Red Blood Count 4.85 M/mm3 (4.6-6.2); White Blood Count 6.7 K/mm3 (4.4-11.0)
[2024-12-02] MEDS: Cefepime HCl 2 GM in 0.9% Normal Saline (100mL MB+) 100 ML IV ×3 (05:55→21:23)
[2024-12-02 07:56] LABS: Anion Gap 12 (5-15); BUN 21 mg/dL (4-19); BUN/Creat Ratio 31.5 RATIO (10-20); Calcium,Total 9.1 mg/dL (7.6-11.0); Carbon Dioxide 22.5 mmol/L (21.0-32.0); Chloride 108 mmol/L (98-108); Estimated Creatinine Clearance 112.85 ml/min (50-250); Glucose 91 mg/dL (70-99); Potassium 3.8 mmol/L (3.3-5.1)
[2024-12-02] MEDS: Aspirin E.C. 81 MG Tablet PO (08:25)
[2024-12-02] MEDS: Lidocaine 5% Patch 2 PATCH TOPICAL (08:26)
[2024-12-02] MEDS: Cholecalciferol (VIT D3) 25 MCG TABLET (1,000 UNITS) 50 MCG PO (08:27)
[2024-12-02 09:00] VITALS: BP 138/81; PULSE 89; RESP 16; TEMP 36.7; O2SAT 99
--- NOTE | 2024-12-02 11:45 | CASEMGMT ---
ABISAI MENDES Readmission Note Previous Admission: 11/03/24-11/05/24 Diagnosis: complicated pseudomonas aeruginosa DC Disposition: Home with resumption of HHC Current Admission: Admitted 11/30/24 Current Diagnosis: complicated UTI Pt dc'd from previous admission with [facility] and IV atb provided through [facility]. Pt ex to learn IV atb. Pt presented to ER with chest tightness. Pt with troponins of 32, 23 and EKG with no acute injury. Plan for pt to dc home and pt had nausea and pain near his bladder and was subsequently admitted for complicated UTI. ABISAI MENDES into pt room, pt lying in bed in no distress. Pt states his ex did learn his IV atb without difficulty. He states he still has [place] for his skilled care on //. He would like this to resume and pt denies need for a list of other options for HHC. Pt also receives aide services that he would like to continue. Pt states his catheter was changed by [facility] approx a week ago. He states the nurse also cares for his wounds as well. Pt reports he has supplies for his catheter as well as colostomy. Pt states he does not want to trf to the [place]. ID to c/s. ABISAI MENDES to follow. DC Plan: Home with resumption of [facility], aides services from [facility] pending ID recs. Received message from [place] VAUGHN tc to Javier at [phone] [id number] and provided with update on pt status. He states pt receives 25 hours of aide services through [facility].
[2024-12-02 15:00] VITALS: BP 142/84; PULSE 92; RESP 18; TEMP 36.8; O2SAT 99
--- NOTE | 2024-12-02 15:40 | PCM.CONS.GEN ---
Assessment & Plan Assessment/Plan (1) UTI (urinary tract infection): PLAN: UA improved from previous. Ucx with moderate yeast. On cefepime, sx improved. Plan on discharge off of abx tomorrow. Will follow prn, thank you HPI Consult Data Date of Consult: 12/02/24 HPI Narrative Reason for Consultation: uti HPI Narrative: KALEN GAVIN, is a 64 M with paraplegia, recurrent uti, presented with acute onset bladder spasms, fatigue, not feeling well. Sx typical of uti for him. No fever, no back pain. Came to Ed, admitted on cefepime, feeling much better. Full ROS performed and neg except as noted above. COUNTS INCLUDE 234 BEDS AT THE [facility] Medical History Debility Marijuana use Tobacco abuse Paraplegia Sacral decubitus ulcer, stage III Atherosclerotic heart disease of three affiliated coronary artery without angina pectoris Depression Chronic indwelling Lima catheter Heavy alcohol use Anxiety and depression Acute paralytic poliomyelitis, wild virus, indigenous Osteomyelitis of right femur Transverse myelitis Neurogenic bladder Benign essential hypertension Home Medications ?Medication ?Instructions ?Recorded ?Last Taken ?Type baclofen 20 mg tablet 20 mg PO 4X/DAY muscle spasms 02/26/13 06/27/21 History multivitamin with folic acid 400 1 tab PO LUNCH supplemeny 02/26/13 06/27/21 History mcg tablet (Thera) nortriptyline 50 mg capsule 100 mg PO QHS anxiety 01/19/19 06/26/21 History ascorbic acid (vitamin C) 1,000 mg 1 g PO DAILY Check with primary 06/28/21 Unknown History tablet (Vitamin C) doctor cholecalciferol (vitamin D3) 50 50 mcg PO DAILY Check with primary 06/28/21 Unknown History mcg (2,000 unit) capsule (Vitamin doctor D3) docusate sodium 100 mg capsule 100 mg PO BID Check with primary 06/28/21 Unknown History doctor loratadine 10 mg capsule 10 mg PO DAILY Check with primary 06/28/21 Unknown History doctor venlafaxine 75 mg tablet 150 mg PO DAILY Check with primary 06/28/21 Unknown History doctor aspirin 81 mg tablet,delayed 81 mg PO BREAKFAST heart health 30 06/29/21 Unknown Rx release days #30 tabs carvedilol 6.25 mg tablet 6.25 mg PO BID heart 30 days #60 06/29/21 Unknown Rx tabs ondansetron 4 mg disintegrating 4 mg PO Q8H PRN nausea and 06/06/22 Unknown Rx tablet vomiting #10 tabs rosuvastatin 10 mg tablet (Crestor) 20 mg PO DAILY 06/16/24 Unknown History buprenorphine 20 mcg/hour weekly 1 patch transdermal Q7D 09/11/24 Unknown History transdermal patch acetaminophen 325 mg tablet 650 mg PO BID PRN 11/03/24 Unknown History (Tylenol) doxycycline monohydrate 100 mg 100 mg PO BID 11/03/24 Unknown History capsule ibuprofen 600 mg tablet (IBU) 600 mg PO 4X/DAY PRN 11/03/24 Unknown History lidocaine 5 % topical patch 2 patch topical DAILY 11/03/24 Unknown History oxycodone-acetaminophen 5 mg-325 1 tab PO Q6H pain 11/03/24 Unknown History mg tablet pregabalin 150 mg capsule (Lyrica) 150 mg PO TID 11/03/24 Unknown History cefepime 2 gram solution for 2 g IV Q8 5 days #16 ea 11/04/24 Unknown Rx injection Allergy/AdvReac Type Severity Reaction Status Date / Time No Known Allergies Allergy Verified 11/30/24 06:59 Family History Father CVA (cerebral vascular accident) Heart disease Myocardial infarction Surgical History History of coronary artery stent placement (06/28/21) History of femoral derotational osteotomy History of appendectomy History of suprapubic catheter Hx of colostomy Colostomy in place Social History household members: spouse housing: house current occupational status: retired Smoking Status: Former smoker alcohol intake: former substance use type: marijuana Physical Exam Const alert and no apparent distress General Appearance: cooperative HEENT normocephalic and head/scalp atraumatic Eyes PERRL and EOMs intact bilaterally Neck supple and No nodes Resp normal air movement and clear to auscultation bilaterally Cardio regular rate and regular rhythm GI soft to palpation, non-tender and non-distended Extremity General Extremity: Negative for edema Skin no rashes or lesions noted Neuro CN's II-XII intact bilaterally Lab / Micro Data Attestation: I reviewed the patient's lab results. 12/02/24 04:59 12/02/24 06:52 Labs: Laboratory Results - last 24 hr 12/02/24 04:59: WBC 6.7, RBC 4.85, Hgb 11.9 L, Hct 41.3, MCV 85.2 D, MCH 24.5 L, MCHC 28.8 L D, RDW Std Deviation 55.8 H, RDW Coeff of Bhanu 17.9 H, Plt Count 204, MPV 9.6, Immature Gran % (Auto) 0.300, Neut % (Auto) 63.8, Lymph % (Auto) 20.8, Cochran % (Auto) 11.1 H, Eos % (Auto) 3.4, Baso % (Auto) 0.6, Absolute Neuts (auto) 4.3, Absolute Lymphs (auto) 1.39, Nucleated RBC % 0, Sodium Cancelled, Potassium Cancelled, Chloride Cancelled, Carbon Dioxide Cancelled, Anion Gap Cancelled, BUN Cancelled, Creatinine Cancelled, Estim Creat Clear Calc Cancelled, Est GFR (MDRD) Non-Af Cancelled, BUN/Creatinine Ratio Cancelled, Glucose Cancelled, Calcium Cancelled 12/02/24 06:52: Sodium 143, Potassium 3.8, Chloride 108, Carbon Dioxide 22.5, Anion Gap 12, BUN 21 H, Creatinine 0.67 L, Estim Creat Clear Calc 112.85, Est GFR (MDRD) Non-Af 105, BUN/Creatinine Ratio 31.5 H, Glucose 91, Calcium 9.1 Micro: Microbiology 11/30/24 14:42 Interface Orders Urine Culture - Preliminary Joleen albicans Rhythm Strip Rhythm Strip: Sinus Rhythm Rate: 90 Ectopy: None Imaging Radiology Impression Venous Doppler Study 11/30/24 07:02 Interpretation Summary Deep veins of the right lower extremity are patent and compressible segmentally. There is no evidence of right lower extremity deep vein thrombosis. The right great saphenous vein appears patent and compressible segmentally. Ordering Physician: Christian Merlos Referring Physician: [facility] Performed By: Aileen Elena RVT
--- NOTE | 2024-12-02 18:09 | PCM.PN.HOSP ---
Reason for Visit Reason for Visit: Diagnoses Urinary tract infection, site not specified (11/30/24) Nausea (11/30/24) Localized edema (11/30/24) Subjective Subjective Patient was seen and examined today, had infectious diseases see the patient for input on need for antibiotics at the time of discharge home, infectious diseases felt that the patient could be discharged tomorrow on no antibiotics. Objective Data Objective Data Vital Signs: Vital Signs Temp Pulse Resp BP Pulse Ox O2 Del Method 98.2 F 92 18 142/84 H 99 Room Air 12/02/24 15:00 12/02/24 15:00 12/02/24 15:00 12/02/24 15:00 12/02/24 15:00 12/02/24 15:00 Oxygen Delivery Method Room Air Weight: 74.3 kg Body Mass Index (BMI) 24.2 Intake & Output: Intake and Output for Last 24 Hours 11/30/24 12/01/24 12/02/24 23:59 23:59 23:59 Intake Total 100 / 100 1746.25 / 1746.25 850 / 850 Output Total 250 / 250 650 / 1050 1900 / 1900 Balance -150 / -150 1096.25 / 696.25 -1050 / -1050 Lab / Micro Data 12/02/24 04:59 12/02/24 06:52 Labs: Laboratory Results - last 24 hr 12/02/24 04:59: WBC 6.7, RBC 4.85, Hgb 11.9 L, Hct 41.3, MCV 85.2 D, MCH 24.5 L, MCHC 28.8 L D, RDW Std Deviation 55.8 H, RDW Coeff of Bhanu 17.9 H, Plt Count 204, MPV 9.6, Immature Gran % (Auto) 0.300, Neut % (Auto) 63.8, Lymph % (Auto) 20.8, Faulk % (Auto) 11.1 H, Eos % (Auto) 3.4, Baso % (Auto) 0.6, Absolute Neuts (auto) 4.3, Absolute Lymphs (auto) 1.39, Nucleated RBC % 0, Sodium Cancelled, Potassium Cancelled, Chloride Cancelled, Carbon Dioxide Cancelled, Anion Gap Cancelled, BUN Cancelled, Creatinine Cancelled, Estim Creat Clear Calc Cancelled, Est GFR (MDRD) Non-Af Cancelled, BUN/Creatinine Ratio Cancelled, Glucose Cancelled, Calcium Cancelled 12/02/24 06:52: Sodium 143, Potassium 3.8, Chloride 108, Carbon Dioxide 22.5, Anion Gap 12, BUN 21 H, Creatinine 0.67 L, Estim Creat Clear Calc 112.85, Est GFR (MDRD) Non-Af 105, BUN/Creatinine Ratio 31.5 H, Glucose 91, Calcium 9.1 Micro: Microbiology 11/30/24 14:42 Interface Orders Urine Culture - Preliminary Joleen albicans Radiography Diagnostic Testing: Radiology Impression Venous Doppler Study 11/30/24 07:02 Interpretation Summary Deep veins of the right lower extremity are patent and compressible segmentally. There is no evidence of right lower extremity deep vein thrombosis. The right great saphenous vein appears patent and compressible segmentally. Ordering Physician: Christian Merlos Referring Physician: [facility] Performed By: Aileen Elena RVT Rhythm Strip Rhythm Strip: Sinus Rhythm Rate: 90 Ectopy: None Physical Exam Const alert, oriented x3 and no apparent distress General Appearance: cooperative, well kempt and well developed Orientation / Consciousness: awake, oriented to person, oriented to place and oriented to time HEENT normocephalic, head/scalp atraumatic and moist oral mucous membranes Eyes PERRL, EOMs intact bilaterally and conjunctivae normal Neck supple, no JVD, thyroid normal and no carotid bruits General: trachea midline Resp normal respiratory effort, no retractions, no use of accessory muscles and clear to auscultation bilaterally Auscultation: Negative for rales, rhonchi or wheezes Cardio regular rate, regular rhythm, S1 normal heart sound, S2 normal heart sound, no murmurs, no rub and no gallops GI normal to inspection, nondistended, normoactive bowel sounds, soft to palpation, non-tender and non-distended Extremity no clubbing, cyanosis or edema Skin no rashes or lesions noted General Skin Exam: no breakdown Neuro oriented x3 and CN's II-XII intact bilaterally Neuro Narrative: Patient is paraplegic Sensorium / Orientation: awake and alert Speech: speech normal Psych affect normal Assessment & Plan Assessment/Plan (1) UTI (urinary tract infection): PLAN: Plan 1. Acute cystitis secondary to Lima catheter usage due to neurogenic bladder-patient is currently on cefepime, urine culture grew out yeast which does not seem to be the pathogen. The patient remains medically stable, he will be discharged tomorrow to home without antibiotics. #2 chronic right lower leg edema-patient's duplex scan of the lower extremities was negative for VTE #3 chronic paraplegia-complicates care, management, recovery, and prognosis #4 hyperlipidemia-patient is on Crestor #5 chronic depression-patient is on Effexor #6 atherosclerotic heart disease-patient is on Crestor and carvedilol as well as an aspirin Total clinical time spent by myself addressing the patient's medical issues, reviewing all of his data, and collaborating with patient's care team: 35 minutes Charges/Coding Visit Charges Inpatient E&M: 66448 Subs Hosp L2
[2024-12-02 21:19] VITALS: BP 123/81; PULSE 74; RESP 17; TEMP 36.8; O2SAT 99
[2024-12-02 23:22] VITALS: BP 101/63; PULSE 73; RESP 16; TEMP 36.4; O2SAT 99
[2024-12-03] MEDS: Zinc Sulfate 50 mg zinc (220 mg) ORAL capsule PO ×2 (05:31→14:11)
[2024-12-03] MEDS: Cefepime HCl 2 GM in 0.9% Normal Saline (100mL MB+) 100 ML IV (05:32)
[2024-12-03 05:36] VITALS: BP 161/90; PULSE 80; RESP 16; TEMP 36.3; O2SAT 98
[2024-12-03 08:13] VITALS: BP 144/80; PULSE 81; RESP 17; TEMP 36.3; O2SAT 100
[2024-12-03] MEDS: Lidocaine 5% Patch 2 PATCH TOPICAL (08:24)
[2024-12-03] MEDS: Aspirin E.C. 81 MG Tablet PO (08:29)
[2024-12-03] MEDS: Cholecalciferol (VIT D3) 25 MCG TABLET (1,000 UNITS) 50 MCG PO (08:30)
[2024-12-03] MEDS: 0.9% Normal Saline (250mL Bag) 250 ML 15 ML IV (08:34)
--- NOTE | 2024-12-03 13:37 | PCM.DC ---
Discharge Instructions Diet Discharge Diet: No restrictions DC O2, CPAP, BIPAP needs Home O2 Discharge instructions: No Dressing / Incision Discharge Activity: - (Resume previous activity level) Follow Up Care Test Results: Test results from this visit will be discussed in further detail at your follow-up appointment, if applicable. Discharge Plan Admission Admit Date/Time: 11/30/24 16:44 Primary Reason for Your Visit: Acute cystitis Attending Provider: John Ponce Primary Care Provider: [facility] Consulting Providers: Ricarda Meza; Milady Tilley; New Zhao Instructions Patient Instructions: ED Chest Pain, Uncertain Cause Additional Instructions / Restrictions: We did an ultrasound of your right lower extremity today, it is negative for blood clots Discharge Orders/Prescriptions Prescriptions: Continued baclofen 20 MG tablet 20 mg PO 4X/DAY Patient Comments: MUSCLE SPASMS multivitamin with folic acid [Thera] 1 TABLET tablet 1 tab PO LUNCH Patient Comments: SUPPLEMENT nortriptyline 50 MG capsule 100 mg PO QHS ascorbic acid (vitamin C) [Vitamin C] 1,000 mg Tablet 1 g PO DAILY venlafaxine 75 mg Tablet 150 mg PO DAILY docusate sodium 100 mg Capsule 100 mg PO BID cholecalciferol (vitamin D3) [Vitamin D3] 50 mcg (2,000 unit) Capsule 50 mcg PO DAILY loratadine 10 mg Capsule 10 mg PO DAILY carvedilol 6.25 mg Tablet 6.25 mg PO BID 30 Days Qty: 60 0RF aspirin 81 mg Tablet,Delayed Release (Dr/Ec) 81 mg PO BREAKFAST 30 Days Qty: 30 0RF ondansetron 4 mg tablet,disintegrating 4 mg PO Q8H PRN (Reason: nausea and vomiting) Qty: 10 0RF buprenorphine 20 mcg/hour patch weekly 1 patch transdermal Q7D Rx Instructions: sundays pregabalin [Lyrica] 150 mg capsule 150 mg PO TID ibuprofen [IBU] 600 mg tablet 600 mg PO 4X/DAY PRN acetaminophen [Tylenol] 325 mg tablet 650 mg PO BID PRN oxycodone-acetaminophen 5-325 mg tablet 1 tab PO Q6H lidocaine 5 % adhesive patch,medicated 2 patch topical DAILY Rx Instructions: leave on most painful area for up to 12 hrs rosuvastatin [Crestor] 10 mg tablet 20 mg PO DAILY Discontinued doxycycline monohydrate 100 mg capsule 100 mg PO BID Referrals / Follow Up: [facility],[place] [Primary Care Provider] - See Referral Note (As scheduled) Disposition Disposition (needs filled in before D/C Order can be placed): Home, Self Care
--- NOTE | 2024-12-03 13:41 | CASEMGMT ---
Addendum entered by Gissell Suarez 12/03/24 15:48: Pt transport time moved up to 4:30pm. Pt and nurse made aware. Addendum entered by Gissell Suarez 12/03/24 14:46: Faxed dc instructions and LILY order for SN to [facility]. RN CM into pt room, pt aware of dc. Pt requests transport home by [facility]. TC made, transport form given to secretary of police. Pt aware transport is set up for 6pm as well as nurse. Original Note: TC to [facility] to make aware of pt dc this date, left requesting returned call.
[2024-12-03 14:07] VITALS: BP 118/78; PULSE 84; RESP 18; TEMP 36.4; O2SAT 99
--- NOTE | 2024-12-03 14:10 | PCM.DC.SUM ---
Providers Date of Admission: 11/30/24 Date of Discharge: 12/03/24 Primary Care Physician: [facility] Consultations 11/30/24 17:52 Consult: Onc/Wound/fish bailer Routine Comment: Reason for Consult:: Patient has ostomy 12/02/24 10:23 Consult: Infectious Disease Routine Consulting Provider: New Zhao Reason for Consult: recurrent UTI's EMERGENT Consult: No MD Notified: Yes Date Notified: 12/02/24 Time Notified: 10:43 Method of Notification: Answering Service Reason For Visit: COMPLICATED UTI Diagnosis Discharge Diagnosis (1) UTI (urinary tract infection): Status: Acute Code(s): N39.0 - Urinary tract infection, site not specified Plan 1. Acute cystitis secondary to Lima catheter usage due to neurogenic bladder-patient is currently on cefepime, urine culture grew out yeast which does not seem to be the pathogen. The patient remains medically stable, he will be discharged tomorrow to home without antibiotics. #2 chronic right lower leg edema-patient's duplex scan of the lower extremities was negative for VTE #3 chronic paraplegia-complicates care, management, recovery, and prognosis #4 hyperlipidemia-patient is on Crestor #5 chronic depression-patient is on Effexor #6 atherosclerotic heart disease-patient is on Crestor and carvedilol as well as an aspirin Total clinical time spent by myself addressing the patient's medical issues, reviewing all of his data, and collaborating with patient's care team: 35 minutes Medications at Discharge Home Medications baclofen 20 mg tablet 20 mg PO 4X/DAY muscle spasms 02/26/13 multivitamin with folic acid 400 mcg tablet (Thera) 1 tab PO LUNCH supplemeny 02/26/13 nortriptyline 50 mg capsule 100 mg PO QHS anxiety 01/19/19 ascorbic acid (vitamin C) 1,000 mg tablet (Vitamin C) 1 g PO DAILY Check with primary doctor 06/28/21 cholecalciferol (vitamin D3) 50 mcg (2,000 unit) capsule (Vitamin D3) 50 mcg PO DAILY Check with primary doctor 06/28/21 docusate sodium 100 mg capsule 100 mg PO BID Check with primary doctor 06/28/21 loratadine 10 mg capsule 10 mg PO DAILY Check with primary doctor 06/28/21 venlafaxine 75 mg tablet 150 mg PO DAILY Check with primary doctor 06/28/21 aspirin 81 mg tablet,delayed release 81 mg PO BREAKFAST heart health 30 days #30 tabs 06/29/21 carvedilol 6.25 mg tablet 6.25 mg PO BID heart 30 days #60 tabs 06/29/21 ondansetron 4 mg disintegrating tablet 4 mg PO Q8H PRN nausea and vomiting #10 tabs 06/06/22 rosuvastatin 10 mg tablet (Crestor) 20 mg PO DAILY md ordered 06/16/24 buprenorphine 20 mcg/hour weekly transdermal patch 1 patch transdermal Q7D md ordered 09/11/24 acetaminophen 325 mg tablet (Tylenol) 650 mg PO BID PRN md ordered 11/03/24 ibuprofen 600 mg tablet (IBU) 600 mg PO 4X/DAY PRN md ordered 11/03/24 lidocaine 5 % topical patch 2 patch topical DAILY md ordered 11/03/24 oxycodone-acetaminophen 5 mg-325 mg tablet 1 tab PO Q6H pain 11/03/24 pregabalin 150 mg capsule (Lyrica) 150 mg PO TID md ordered 11/03/24 Hospital Course Operations None Procedures None Summary of Care Provided Minutes Spent on Discharge: 32 Hospital Course: This 64-year-old white male was seen in the emergency room at [facility] with complaints of chest tightness off and on x 24 hours. He was not complaining of any chest pain when evaluated in the emergency room. Patient was a very poor informant, he is a paraplegic living at home and has a chronic indwelling Lima catheter and a colostomy. Workup in the emergency room included a CBC which was abnormal for a white blood cell count of 12.6 and hemoglobin of 12.7. Patient's chemistry profile was unremarkable and troponin was slightly elevated at 32 with a repeat troponin of 23. Chest x-ray was unremarkable, EKG showed sinus rhythm and no acute injury pattern. Patient complained of nausea, and there was a concern for UTI from his chronic indwelling catheter, patient was given IV cefepime and the hospitalist was contacted for admission. When interviewed by the hospitalist, the patient stated he was not really having chest pain and he came to the emergency room because of suprapubic discomfort and nausea and concern for UTI. Patient was admitted to [place] [address], his cefepime was continued, and he was given IV fluids. I had infectious diseases see the patient in consultation regarding recommendations for antibiotic coverage. Urine culture grew out only yeast, it was recommended that the patient be stable for discharge on 12/03/2024 on no antibiotics. On 12/03/2024, patient was seen and examined:alert, oriented x3 and no apparent distress General Appearance: cooperative, well kempt and well developed Orientation / Consciousness: awake, oriented to person, oriented to place and oriented to time HEENT normocephalic, head/scalp atraumatic and moist oral mucous membranes Eyes PERRL, EOMs intact bilaterally and conjunctivae normal Neck supple, no JVD, thyroid normal and no carotid bruits General: trachea midline Resp normal respiratory effort, no retractions, no use of accessory muscles and clear to auscultation bilaterally Auscultation: Negative for rales, rhonchi or wheezes Cardio regular rate, regular rhythm, S1 normal heart sound, S2 normal heart sound, no murmurs, no rub and no gallops GI normal to inspection, nondistended, normoactive bowel sounds, soft to palpation, non-tender and non-distended Extremity no clubbing, cyanosis or edema Skin no rashes or lesions noted General Skin Exam: no breakdown Neuro oriented x3 and CN's II-XII intact bilaterally Neuro Narrative: Patient is paraplegic Sensorium / Orientation: awake and alert Speech: speech normal Psych affect normal Patient was discharged to home on 12/03/2024 in stable condition. Weight / BMI Weight Weight: 74.3 kg Body Mass Index (BMI) 24.2 ABG / Lab / Microbiology Data 12/02/24 04:59 12/02/24 06:52 Microbiology: Microbiology 11/30/24 14:42 Interface Orders Urine Culture - Final Joleen albicans Radiography Diagnostic Testing: Radiology Impression Venous Doppler Study 11/30/24 17:52 Interpretation Summary Deep veins of the right lower extremity are patent and compressible segmentally. There is no evidence of right lower extremity deep vein thrombosis. Valvular competence appears intact within the proximal deep venous system on the right . The right great saphenous vein appears patent and compressible segmentally. Ordering Physician: Ricarda Meza Referring Physician: [facility] Performed By: Elizabeth Sorto RDCS, RVT D/C Instructions Discharge Diet: No restrictions DC O2, CPAP, BIPAP Needs Home O2 Discharge instructions: No Meaningful Use Info Meaningful Use Meaningful Use Diagnoses (Choose all that apply): None applicable Ischemic Stroke Statin Dosing Therapy Reference: STATIN DOSE THERAPY REFERENCE: * Patients > 75 years receive moderate or high dose statin therapy. * Patients 75 years or YOUNGER should receive HIGH intensity statin dose unless contraindicated. You will be required to document reason for non-treatment if statin daily dose does not meet guidelines. HIGH DOSE STATIN THERAPY DAILY Atorvastatin > than or = to 40 mg Rosuvastatin > than or = to 20 mg Amlodipine + Atorvastatin > than or = to 2.5/40 mg Ezetimibe + Simvastatin 10/80 mg Simvastatin 80mg Discharge Plan Admission Admit Date/Time: 11/30/24 16:44 Primary Reason for Your Visit: Acute cystitis Attending Provider: John Ponce Primary Care Provider: [facility],[place] Consulting Providers: Ricarda Meza; Milady Tilley; New Zhao Instructions Patient Instructions: ED Chest Pain, Uncertain Cause Additional Instructions / Restrictions: We did an ultrasound of your right lower extremity today, it is negative for blood clots Discharge Orders/Prescriptions Prescriptions: Continued baclofen 20 MG tablet 20 mg PO 4X/DAY Patient Comments: MUSCLE SPASMS multivitamin with folic acid [Thera] 1 TABLET tablet 1 tab PO LUNCH Patient Comments: SUPPLEMENT nortriptyline 50 MG capsule 100 mg PO QHS ascorbic acid (vitamin C) [Vitamin C] 1,000 mg Tablet 1 g PO DAILY venlafaxine 75 mg Tablet 150 mg PO DAILY docusate sodium 100 mg Capsule 100 mg PO BID cholecalciferol (vitamin D3) [Vitamin D3] 50 mcg (2,000 unit) Capsule 50 mcg PO DAILY loratadine 10 mg Capsule 10 mg PO DAILY carvedilol 6.25 mg Tablet 6.25 mg PO BID 30 Days Qty: 60 0RF aspirin 81 mg Tablet,Delayed Release (Dr/Ec) 81 mg PO BREAKFAST 30 Days Qty: 30 0RF ondansetron 4 mg tablet,disintegrating 4 mg PO Q8H PRN (Reason: nausea and vomiting) Qty: 10 0RF buprenorphine 20 mcg/hour patch weekly 1 patch transdermal Q7D Rx Instructions: sundays pregabalin [Lyrica] 150 mg capsule 150 mg PO TID ibuprofen [IBU] 600 mg tablet 600 mg PO 4X/DAY PRN acetaminophen [Tylenol] 325 mg tablet 650 mg PO BID PRN oxycodone-acetaminophen 5-325 mg tablet 1 tab PO Q6H lidocaine 5 % adhesive patch,medicated 2 patch topical DAILY Rx Instructions: leave on most painful area for up to 12 hrs rosuvastatin [Crestor] 10 mg tablet 20 mg PO DAILY Discontinued doxycycline monohydrate 100 mg capsule 100 mg PO BID Referrals / Follow [facility] [Primary Care Provider] - See Referral Note (As scheduled) Disposition Disposition (needs filled in before D/C Order can be placed): Home, Self Care Charges/Coding Visit Charges Inpatient E&M: 13654 Disch Hosp >30min
== END 2024-12-03 17:55 | disposition home or self-care (01) | DRG 699 ==
LOC: ED 16:19 → MS3 16:48
PROVIDERS: Internal Medicine; Admitting Provider Internal Medicine; Emergency Provider Emergency Medicine; Visit Provider Internal Medicine
DX: T83.511A Infection and inflammatory reaction due to indwelling urethral catheter, initial encounter (principal); G82.20 Paraplegia, unspecified; N30.00 Acute cystitis without hematuria; I10 Essential (primary) hypertension; F32.A Depression, unspecified; Z93.3 Colostomy status; I25.10 Atherosclerotic heart disease of native coronary artery without angina pectoris; E78.5 Hyperlipidemia, unspecified; F41.9 Anxiety disorder, unspecified; K59.09 Other constipation; X58.XXXA Exposure to other specified factors, initial encounter; N31.9 Neuromuscular dysfunction of bladder, unspecified; G89.29 Other chronic pain; R60.0 Localized edema; Z95.5 Presence of coronary angioplasty implant and graft; Z79.01 Long term (current) use of anticoagulants; Z79.82 Long term (current) use of aspirin; Z79.899 Other long term (current) drug therapy; Z86.69 Personal history of other diseases of the nervous system and sense organs; Z87.891 Personal history of nicotine dependence
CPT/HCPCS: 36415; 71045; 80048; 81001; 84484; 85025; 87086; 87088; 93005; 93971; 97802; 99285; 99406; A4216; J2405